=== PATIENT | male | born 1985 | race African-American/Black ===

== ENCOUNTER 2019-02-15 18:54 | Inpatient (IN) | payer OTHER, SELFPAY ==
[2019-02-15 19:36] VITALS: BP 131/72; PULSE 104; TEMP 37.2; O2SAT 98
[2019-02-15 21:45] VITALS: BP 113/69; PULSE 80; RESP 16; O2SAT 97
--- NOTE | 2019-02-15 22:06 | ED.GENADULT ---
HPI - General Adult General Chief complaint: Unspecified Stated complaint: hx sickle cell, pain Time Seen by Provider: 02/15/19 22:06 Source: patient Mode of arrival: ambulatory Limitations: no limitations History of Present Illness HPI narrative: Pt is a 33 y/o black male who presents to the ED with c/o generalized body pain due to his sickle cell anemia (legs, ribs, back, etc...). Pt reports that the pain began last week and and his medications (among them being Oxycodone 75 mg) were not helping him so he stopped taking them 10 hours ago and decided to come to the ED. He states that his son has been sick and coughing, but the pt only has had a sore throat aside from his body aches. Pt denies emesis, diarrhea, cough, rhinorrhea, CP, or SOB. Pt also denies having any allergies, smoking, drinking ETOH, using drugs, or having any medical issues aside from the sickle cell anemia. He notes having had 2 surgeries on his rt fifth finger. Among his daily medications is Folic Acid. Onset (ago): week(s) (Began last week) Relieving factors: none Associated symptoms: other (Sore throat) Related Data Home Medications Medication Instructions Recorded Confirmed folic acid 1 mg PO DAILY 02/16/19 02/16/19 hydroxyurea 500 mg PO BID 02/16/19 02/16/19 ibuprofen 800 mg PO Q6H PRN 02/16/19 02/16/19 methadone 10 mg PO BID 02/16/19 02/16/19 oxycodone 7.5 mg PO Q4-6H PRN 02/16/19 02/16/19 warfarin [Coumadin] 2.5 mg PO DAILY 02/16/19 02/16/19 warfarin [Coumadin] 10 mg PO DAILY 02/16/19 02/16/19 Allergies Allergy/AdvReac Type Severity Reaction Status Date / Time Fish Containing Products Allergy Intermediate Itching Verified 12/29/18 14:59 Review of Systems Review of Systems: All systems reviewed & are unremarkable except as noted in HPI and below ENT: Reports sore throat and Denies other (Rhinorrhea) Cardiovascular: Cardiovascular: Denies chest pain Respiratory: Respiratory: Denies cough and Denies dyspnea Gastrointestinal: Gastrointestinal: Denies diarrhea and Denies vomiting Musculoskeletal: Musculoskeletal: Reports other (Generalized body aches (legs, back, ribs, etc...)) [facility] Past Medical History Medical History (Updated 02/16/19 @ 07:39 by Ela Bah MD) Sickle cell anemia (Acute) Surgical History Surgical History (Updated 02/16/19 @ 00:48 by Leti Tompkins) History of hand surgery (Acute) Family History Family History (Updated 02/16/19 @ 04:35 by Joanne Morgan RN) Grandparent Acute myocardial infarction Sibling Asthma Sibling Asthma Mother Hypertension Social History Social History (Updated 02/16/19 @ 00:49 by Leti Tompkins) Smoking status: Never smoker Alcohol intake: never Substance use: never Gender identity (if verbalized by the patient): Male Spiritual care concerns: No Agree to blood products: Yes Exam Narrative: Exam Narrative: GENERAL: Well-appearing, well-nourished, and in no acute distress. HEAD: Normocephalic, atraumatic EYES: PERRLA and EOMI, conjunctiva clear without discharge EARS: TM's clear bilaterally without erythema or dullness THROAT:Mucous membranes moist, There is tonsillar enlargement and erythema NECK: Supple, without lymphadenopathy or mass RESPIRATORY: No respiratory distress, Airway patent, Respirations non-labored, Clear to auscultation without rales, rhonchi or wheeze HEART: Regular rate and rhythm. No murmur heard. Normal peripheral pulses. ABDOMEN: Soft, nontender, nondistended, normal active bowel sounds. No masses. No rebound or guarding, No organomegaly. EXTREMITIES: No edema, normal strength with full range of motion. SKIN: Warm, dry, normal color without rash NEURO: Alert and oriented x3. CN 2-12 grossly intact. No focal deficits. PSYCH: Normal mood and affect. Course Consultations Consultation #1: Dr. Montesinos, Hospitalist. Discussed case. Accepts for observation and order Dilaudid 2mg 2-3 hours and to give him a dose of his long-acting
[2019-02-15 22:33] LABS: Basophils Absolute Auto 0.1 K/mm3 (0.0-0.1); Basophils Percent Auto 0.6 % (0.2-1.2); Eosinophils Absolute Auto 0.6 K/mm3 (0-0.3); Eosinophils Percent Auto 4.4 % (0-4.4); Hematocrit 28.2 % (42.0-52.0); Hemoglobin 10.3 g/dL (14.0-18.0); Immature Granulocyte Absolute 0.03 K/mm3 (0.00-0.031); Immature Granulocyte Percent A 0.2 % (0-0.5); Immature Platelet Fraction Pct 4.5 % (0.9-11.2); Immature Reticulocyte Fraction 28.3 % (3.0-15.9); Lymphocytes Absolute Auto 5.24 K/mm3 (0.9-3.2); Mean Corpuscular HGB Conc 36.5 g/dl (32-36); Mean Corpuscular Hemoglobin 33.7 pg (26-34); Mean Corpuscular Volume 92.2 fl (80-100); Mean Platelet Volume 10.4 fl (7.4-10.4); Monocytes Absolute Auto 0.8 K/mm3 (0.1-0.6); Monocytes Percent Auto 6.4 % (2.6-8.5); Neutrophils Absolute Auto 5.8 K/mm3 (1.3-6.7); Neutrophils Percent Auto 46.4 % (45.5-73.1); Nucleated Red Blood Cells Perc 0.2 % (0.0-0.2); Platelet Count Result 262 k/mm3 (150-375); Red Blood Count 3.06 M/mm3 (4.6-6.20); Red Cell Distribution Width 14.9 % (11.5-14.5); Reticulocyte Hemoglobin Conten 34.3 pg (28.2-35.7); Reticulocyte Percent 6.27 % (0.7-4.3); Reticulocytes Absolute 0.19 B/L (32.2-175.7); White Blood Count 12.5 K/mm3 (4.5-10.0)
[2019-02-15 22:41] LABS: Platelet Estimate Adequate (Adequate); Poikilocytosis 1+ (NORMAL)
[2019-02-15 22:42] LABS: Anisocytosis 1+ (NORMAL); Ovalocytes 1+ (NORMAL); Sickle Cells 1+ (NORMAL); Target Cells 2+ (NORMAL)
[2019-02-15 22:44] LABS: Alanine Aminotransferase 24 U/L (4-50); Albumin Level 4.3 g/dL (3.5-5.1); Alkaline Phosphatase 81 U/L (38-126); Aspartate Amino Transferase 41 U/L (17-59); Blood Urea Nitrogen 7 mg/dL (9-20); Calcium 8.9 mg/dL (8.4-10.2); Carbon Dioxide 24 mmol/L (22-30); Chloride 107 mmol/L (98-107); Estimated Glomerular Filt Rate > 60; Glucose 103 mg/dL (75-110); Potassium 4.2 mmol/L (3.4-5.0); Sodium 141 mmol/L (137-145)
[2019-02-15] MEDS: SODIUM CHLORIDE 0.9% IV 1,000 ML 999 ML IV CONT (22:53)
[2019-02-15] MEDS: KETOROLAC 30 MG/ML VIAL (*BKC) IV PUSH (22:55)
[2019-02-15] MEDS: HYDROMORPHONE HCL 1 MG/ML INJ 2 MG IV PUSH (22:55)
[2019-02-15] MEDS: ONDANSETRON INJ 4 MG/2 ML VIAL IV PUSH (22:55)
--- NOTE | 2019-02-15 23:37 | PC.NURSE ---
Pt states his pain is not any better, rating pain 9/10
[2019-02-15 23:44] VITALS: BP 121/81; PULSE 75; RESP 16; O2SAT 99
[2019-02-15 23:45] VITALS: O2SAT 98
[2019-02-16] MEDS: HYDROMORPHONE HCL 1 MG/ML INJ 2 MG IV PUSH ×8 (00:18→23:57)
[2019-02-16] MEDS: SODIUM CHLORIDE 0.9% IV 1,000 ML 125 ML IV CONT ×3 (03:58→19:03)
[2019-02-16 04:06] VITALS: BP 102/59; PULSE 68; RESP 16; O2SAT 99
--- NOTE | 2019-02-16 04:30 | ADMGEN ---
This patient, Quan Downing, was admitted to . Patient/family oriented to hospital policies and general routines including ID bracelet, bed and alarms, visiting hours, pain management, procedures, bathroom and other care routines, personal items, smoking policy, room service/diet, and visiting hours. Valuables list has been completed. Information on how to activate the Rapid Response Team has been discussed. Patient/Family are encouraged to report perceived risks to care and to ask questions if they do not understand what they are told or what they should do.
[2019-02-16 04:33] VITALS: BP 112/72; PULSE 74; RESP 16; TEMP 36.4; O2SAT 96
[2019-02-16 04:44] VITALS: BMI 31.2
--- NOTE | 2019-02-16 07:09 | PM.IMHP ---
H&P: HPI History of Present Illness Chief complaint: SICKLE CELL PAIN CRISIS Narrative: 33-year-old gentleman with sickle cell anemia has a history a few crises per year. Usually presents with chest and back pain. About 1 week ago he began experiencing increasing back pain and rib pain bilaterally. [id number] initially. Controlled by his home oxycodone which he began taking about every 4 hours while awake. However the pain escalated as the week progressed. It was aggravated by movement or pressure. No associated fevers chills sweats or shortness of breath. About 2 days ago he began to experience a sore throat. Nonproductive cough yesterday. His son was ill with similar symptoms 3 to 4 days ago. Because of the escalating pain that was no longer controlled by his home regimen he presented to the emergency department for further evaluation and treatment. Review of Systems Constitutional: Constitutional: Denies anorexia, Denies chills, Denies fever(s), Denies headache(s), Denies weight gain and Denies weight loss Eyes: Eyes: Denies change in vision ENT: Denies dizziness and Denies headache(s) Cardiovascular: Cardiovascular: Reports chest pain, Denies syncope, Denies leg edema, Denies lightheadedness, Denies palpitations, Denies dyspnea, Denies dyspnea on exertion and Denies orthopnea Respiratory: Respiratory: Denies cough, Denies hemoptysis, Denies dyspnea and Denies dyspnea on exertion Gastrointestinal: Gastrointestinal: Denies abdominal pain, Denies melena, Denies hematochezia, Denies change in bowel habits, Denies change in stool character, Denies constipation, Denies early satiety, Denies heartburn, Denies diarrhea, Denies nausea, Denies vomiting and Denies hematemesis Genitourinary: Genitourinary: Denies hematuria and Denies dysuria Musculoskeletal: Musculoskeletal: Denies abnormal gait, Reports back pain (with bilateral rib pain), Denies arthralgias and Denies joint swelling Integumentary/Breasts: Skin/Breast: Denies pruritus and Denies rash Neurologic: Denies Abnormal speech present, Denies abnormal gait, Denies dizziness, Denies syncope, Denies headache(s), Denies focal weakness, Denies loss of vision, Denies memory loss, Denies numbness and Denies Other visual disturbances Psychiatric: Psychiatric: Denies anxiety, Denies depression and Denies memory loss Endocrine: Endocrine: Denies palpitations Hematologic/Lymphatic: Hematologic/Lymphatic: Denies easy bleeding [facility] Past Medical History Medical History (Updated 02/16/19 @ 09:34 by Misael Euceda MD) Chronic narcotic use (Acute) Chronic pain syndrome (Acute) History of deep vein thrombosis (DVT) of lower extremity (Acute) Sickle cell anemia (Acute) Surgical History Surgical History (Updated 02/16/19 @ 00:48 by Leti Tompkins) History of hand surgery (Acute) Family History Family History (Updated 02/16/19 @ 04:35 by Joanne Morgan RN) Grandparent Acute myocardial infarction Sibling Asthma Sibling Asthma Mother Hypertension Social History Social History (Updated 02/16/19 @ 00:49 by Leti Tompkins) Smoking status: Never smoker Alcohol intake: never Substance use: never Gender identity (if verbalized by the patient): Male Spiritual care concerns: No Agree to blood products: Yes Comments On chronic disability. Resides with family. Single. Heterosexual. Meds Home Medications and Allergies Home Medications Medication Instructions Recorded Confirmed Type folic acid 1 mg PO DAILY 02/16/19 02/16/19 History hydroxyurea 500 mg PO BID 02/16/19 02/16/19 History ibuprofen 800 mg PO Q6H PRN 02/16/19 02/16/19 History methadone 10 mg PO BID 02/16/19 02/16/19 History oxycodone 7.5 mg PO Q4-6H PRN 02/16/19 02/16/19 History warfarin [Coumadin] 2.5 mg PO DAILY 02/16/19 02/16/19 History warfarin [Coumadin] 10 mg PO DAILY 02/16/19 02/16/19 History Allergies Allergy/AdvReac Type Severity Reaction Status Date / Time Fish Containi
[2019-02-16 08:00] VITALS: BP 107/68; PULSE 95; RESP 18; TEMP 36.6; O2SAT 95
[2019-02-16] MEDS: HYDROXYUREA (*CHEMO) 500 MG CAPSULE PO ×2 (09:48→17:44)
[2019-02-16] MEDS: FOLIC ACID 1 MG TABLET PO (09:48)
[2019-02-16 10:17] LABS: Hematocrit 26.5 % (42.0-52.0); Hemoglobin 9.5 g/dL (14.0-18.0)
[2019-02-16 10:27] LABS: INR 1.8; Prothrombin Time 20.3 Seconds (11.1-14.7)
[2019-02-16 10:47] LABS: Lactate Dehydrogenase 555 U/L (313-618)
[2019-02-16 16:31] VITALS: BP 112/61; PULSE 90; RESP 18; TEMP 37.4; O2SAT 98
[2019-02-16] MEDS: WARFARIN (*PBKC) 10 MG TABLET PO (17:45)
[2019-02-16] MEDS: WARFARIN (*PBKC) 2.5 MG TABLET PO (17:46)
[2019-02-16] MEDS: ONDANSETRON INJ 4 MG/2 ML VIAL IV PUSH (20:53)
--- NOTE | 2019-02-16 21:50 | CONS_ITS ---
DATE OF CONSULTATION: 02/16/2019 REASON FOR CONSULTATION: Sickle cell crisis. 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 The patient had recurrent episode of sickle cell crisis almost every 4 to 6 weeks basis. He came into the hospital with complaint of increasing generalized pain, now mainly in the mid chest region. The patient also has a history of pulmonary embolism and take Coumadin 10 mg daily. He denies any fever, chills and cough. He does have some sore throat. He denies any burning in urine and dysuria. Denies any diarrhea. No other new complaints. REVIEW OF SYSTEMS: 12-point review of system was reviewed and as per HPI, otherwise negative. PAST MEDICAL HISTORY: Sickle cell SC disease. History of DVT, lower extremities. History of pulmonary embolism. PAST SURGICAL HISTORY: History of hand surgery. FAMILY HISTORY: Sibling has sickle cell SC disease, history of acute DE in the grandparent, asthma in siblings. SOCIAL HISTORY: The patient denies any history of smoking and drinking. Patient is on disability. The patient is and has 3 children. HOME MEDICATIONS: Reviewed. ALLERGIES: REVIEWED. PHYSICAL EXAMINATION: GENERAL: This patient is a well-developed, well-nourished, male, in no apparent distress. Alert and oriented x3. VITAL SIGNS: As per nursing note. HEENT: Normocephalic, atraumatic. Clear oropharynx. LUNGS: Clear to auscultation bilaterally. CARDIOVASCULAR: Regular rate and rhythm. No murmurs. ABDOMEN: Soft, nontender, nondistended. Bowel sounds are positive in all 4 quadrants. No hepatosplenomegaly. EXTREMITIES: No edema. NEUROLOGIC: Grossly intact. LABORATORY STUDIES: WBC 12.5, hemoglobin 10.3, now is 9.5, platelet 262,000, neutrophils 46%, lymphocytes 42%, reticulocyte count percentage 6.27, INR 1.8, creatinine 0.8, total LDH 555. ASSESSMENT AND PLAN: 1. Sickle cell crisis. The patient is a 33-year-old male with sickle cell SC disease. The patient has been taking hydroxyurea 500 mg b.i.d. He came into the hospital with sickle cell crisis. Labs reviewed. LDH is normal, but reticulocyte count is slightly elevated. I agree with continuation of IV hydration and continuation of hydroxyurea 500 mg b.i.d. along with folic acid 1 mg p.o. daily. The patient will continue home methadone 10 mg b.i.d. and will use along with IV Dilaudid for pain control. 2. History of pulmonary embolism and DVT. He will continue Coumadin as previously ordered. The patient will be on lifelong anticoagulation therapy due to recurrent pulmonary embolus and an acute chest syndrome. 3. Sore throat. The patient is on p.r.n. lozenges. I do not see need for antibiotic treatment at this time. The patient is afebrile. D I MT: Becky
[2019-02-16 22:00] VITALS: BP 120/61; PULSE 101; RESP 16; TEMP 36.7; O2SAT 95
[2019-02-17] MEDS: SODIUM CHLORIDE 0.9% IV 1,000 ML 125 ML IV CONT ×3 (03:02→19:21)
[2019-02-17] MEDS: HYDROMORPHONE HCL 1 MG/ML INJ 2 MG IV PUSH ×7 (03:03→21:23)
[2019-02-17 06:04] LABS: Basophils Percent Auto 0.2 % (0.2-1.2); Eosinophils Absolute Auto 0.1 K/mm3 (0-0.3); Hematocrit 26.2 % (42.0-52.0); Hemoglobin 9.3 g/dL (14.0-18.0); Immature Granulocyte Absolute 0.03 K/mm3 (0.00-0.031); Immature Granulocyte Percent A 0.2 % (0-0.5); Lymphocytes Absolute Auto 2.72 K/mm3 (0.9-3.2); Lymphocytes Percent Auto 22.6 % (18.3-44.2); Mean Corpuscular HGB Conc 35.5 g/dl (32-36); Mean Corpuscular Volume 92.9 fl (80-100); Mean Platelet Volume 10.7 fl (7.4-10.4); Monocytes Percent Auto 8.1 % (2.6-8.5); Neutrophils Absolute Auto 8.2 K/mm3 (1.3-6.7); Neutrophils Percent Auto 67.9 % (45.5-73.1); Nucleated Red Blood Cells Perc 0.2 % (0.0-0.2); Platelet Count Result 262 k/mm3 (150-375); Red Blood Count 2.82 M/mm3 (4.6-6.20)
[2019-02-17 06:14] LABS: Blood Urea Nitrogen 5 mg/dL (9-20); Calcium 8.5 mg/dL (8.4-10.2); Carbon Dioxide 24 mmol/L (22-30); Chloride 106 mmol/L (98-107); Estimated CRCL calculation 150 ml/min; Estimated Glomerular Filt Rate > 60; Glucose 116 mg/dL (75-110); INR 2.1; Potassium 3.7 mmol/L (3.4-5.0); Prothrombin Time 23.5 Seconds (11.1-14.7); Sodium 139 mmol/L (137-145)
[2019-02-17 08:14] VITALS: BP 107/59; PULSE 91; RESP 16; TEMP 36.2; O2SAT 96
[2019-02-17 08:42] LABS: Immature Reticulocyte Fraction 24.6 % (3.0-15.9); Reticulocyte Hemoglobin Conten 31.8 pg (28.2-35.7); Reticulocyte Percent 4.13 % (0.7-4.3); Reticulocytes Absolute 0.12 B/L (32.2-175.7)
[2019-02-17] MEDS: FOLIC ACID 1 MG TABLET PO (09:05)
[2019-02-17] MEDS: HYDROXYUREA (*CHEMO) 500 MG CAPSULE PO ×2 (09:05→17:36)
[2019-02-17 14:07] VITALS: BP 114/54; PULSE 83; RESP 18; TEMP 36.6; O2SAT 95
[2019-02-17 15:06] LABS: Lactate Dehydrogenase 614 U/L (313-618)
--- NOTE | 2019-02-17 16:22 | PM.IMPN ---
Progress Note: A&P Assessment and Plan (1) Sickle cell anemia with crisis: Code(s): D57.00 - Hb-SS disease with crisis, unspecified Status: Acute Assessment and Plan: IVF, analgesics. Hemoglobin at 9.3 and LDH is dropped to 614 and reticulocyte % has dropped to 4.3 Continue home hydroxyurea. (2) Chronic narcotic use: Code(s): F11.90 - Opioid use, unspecified, uncomplicated Status: Acute Assessment and Plan: Continue home methadone 10mg bid. Utilize hydromorphone iv for breakthrough pain. And try to taper in a.m. (3) Chronic pain syndrome: Code(s): G89.4 - Chronic pain syndrome Status: Acute Assessment and Plan: Continue methadone. (4) History of deep vein thrombosis (DVT) of lower extremity: Code(s): Z86.718 - Personal history of other venous thrombosis and embolism Status: Acute Assessment and Plan: Continue warfarin 12.5 daily, INR 2.1 today (5) DVT prophylaxis: Code(s): Z29.9 - Encounter for prophylactic measures, unspecified Status: Acute Assessment and Plan: warfarin Subjective Interval history: 33-year-old black male admitted with sickle cell crisis. Feeling some better with slightly less pain and able to eat some Exam Narrative: Exam Narrative: Blood pressure 110/60 pulse is 80 afebrile Pupils equal and reactive to light sclera anicteric Lungs clear CV regular rate rhythm Abdomen is soft nontender Extremities without edema good distal pulses Objective Data Vital Signs Vital Signs: Vital Signs - 24 hr 02/16/19 16:31 02/16/19 22:00 02/17/19 08:14 Temperature 37.4 C 36.7 C 36.2 C L Pulse Rate 90 101 H 91 Respiratory Rate 18 16 16 Blood Pressure 112/61 120/61 107/59 L Pulse Oximetry 98 95 96 02/17/19 14:07 Temperature 36.6 C Pulse Rate 83 Respiratory Rate 18 Blood Pressure 114/54 L Pulse Oximetry 95 Intake/Output Intake/Output: Intake & Output 02/15/19 02/15/19 02/16/19 02/17/19 00:59 23:59 23:59 23:59 Intake Total 3300 2740 Output Total 1300 800 Balance 1999 1939 Meds/Results Medications: Active Medications Generic Name Dose Route Start Last Admin Trade Name Freq PRN Reason Stop Dose Admin Benzocaine 1 lozenge 02/16/19 10:31 Chloraseptic Lozenge PO PRN PRN Sore Throat Folic Acid 1 mg 02/16/19 09:00 02/17/19 09:05 Folic Acid PO 1 mg DAILY CHRISTOPHER Administration Hydromorphone HCl 2 mg 02/16/19 02:56 02/17/19 15:17 Dilaudid Inj IV PUSH 2 mg Q3HR PRN Administration Pain Rated 7-10 Hydroxyurea 500 mg 02/16/19 09:00 02/17/19 09:05 Hydrea PO 500 mg BID CHRISTOPHER Administration Sodium Chloride 1,000 mls @ 125 mls/hr 02/16/19 03:00 02/17/19 11:34 Normal Saline Iv IV CONT 125 mls/hr .Q8H CHRISTOPHER Administration Methadone HCl 10 mg 02/16/19 09:00 02/17/19 09:04 Methadone Hcl PO 10 mg BID CHRISTOPHER Administration Ondansetron HCl 4 mg 02/16/19 02:56 02/16/19 20:53 Zofran Inj IV PUSH 4 mg Q4H PRN Administration Nausea Warfarin Sodium 10 mg 02/16/19 17:00 02/16/19 17:45 Coumadin PO 10 mg DAILY@1700 CHRISTOPHER Administration Warfarin Sodium 2.5 mg 02/16/19 17:00 02/16/19 17:46 Coumadin PO 2.5 mg DAILY@1700 CHRISTOPHER Administration Labs Labs: Laboratory Results - last 24 hr 02/17/19 02/17/19 02/17/19 05:28 05:29 05:29 WBC 12.0 H RBC 2.82 L Hgb 9.3 L Hct 26.2 L MCV 92.9 MCH 33.0 MCHC 35.5 RDW 15.0 H Plt Count 262 MPV 10.7 H Immature Gran % (Auto) 0.2 Neut % (Auto) 67.9 Lymph % (Auto) 22.6 Chaves % (Auto) 8.1 Eos % (Auto) 1.0 Baso % (Auto) 0.2 Lymph # (Auto) 2.72 Chaves # (Auto) 1.0 H Eos # (Auto) 0.1 Baso # (Auto) 0.0 Abs Immat Gran (auto) 0.03 Absolute Neuts (auto) 8.2 H Absolute Nucleated RBC 0.0 Nucleated RBC % 0.2 Absolute Retic 0.12 L Percent Retic 4.13 Immature Retic Fraction 24.6 H Retic
[2019-02-17] MEDS: WARFARIN (*PBKC) 10 MG TABLET PO (17:36)
[2019-02-17] MEDS: WARFARIN (*PBKC) 2.5 MG TABLET PO (17:36)
[2019-02-17 20:22] VITALS: BP 140/71; PULSE 85; RESP 18; TEMP 36.9; O2SAT 100
[2019-02-18] MEDS: HYDROMORPHONE HCL 1 MG/ML INJ 2 MG IV PUSH ×7 (00:33→20:23)
[2019-02-18] MEDS: SODIUM CHLORIDE 0.9% IV 1,000 ML 125 ML IV CONT ×3 (03:28→19:36)
[2019-02-18 06:06] LABS: Hematocrit 26.4 % (42.0-52.0); Hemoglobin 9.5 g/dL (14.0-18.0); Mean Corpuscular Hemoglobin 32.8 pg (26-34); Mean Platelet Volume 10.8 fl (7.4-10.4); Platelet Count Result 258 k/mm3 (150-375); Red Cell Distribution Width 14.9 % (11.5-14.5); White Blood Count 13.1 K/mm3 (4.5-10.0)
[2019-02-18 08:00] VITALS: BP 108/68; PULSE 79; RESP 16; TEMP 37.7; O2SAT 95
[2019-02-18] MEDS: HYDROXYUREA (*CHEMO) 500 MG CAPSULE PO ×2 (09:49→17:22)
[2019-02-18] MEDS: FOLIC ACID 1 MG TABLET PO (09:49)
[2019-02-18 09:51] VITALS: PULSE 76; RESP 16; O2SAT 95
[2019-02-18 10:06] LABS: Immature Reticulocyte Fraction 19.8 % (3.0-15.9); Reticulocyte Percent 5.26 % (0.7-4.3); Reticulocytes Absolute 0.15 B/L (32.2-175.7)
[2019-02-18 10:13] LABS: INR 2.4; Prothrombin Time 25.3 Seconds (11.1-14.7)
[2019-02-18 10:28] LABS: Blood Urea Nitrogen 5 mg/dL (9-20); Calcium 8.7 mg/dL (8.4-10.2); Carbon Dioxide 23 mmol/L (22-30); Chloride 104 mmol/L (98-107); Estimated CRCL calculation 172 ml/min; Estimated Glomerular Filt Rate > 60; Glucose 114 mg/dL (75-110); Potassium 3.8 mmol/L (3.4-5.0); Sodium 137 mmol/L (137-145)
[2019-02-18 10:47] LABS: Lactate Dehydrogenase 655 U/L (313-618)
--- NOTE | 2019-02-18 15:12 | PM.IMPN ---
Progress Note: A&P Assessment and Plan (1) Sickle cell anemia with crisis: Code(s): D57.00 - Hb-SS disease with crisis, unspecified Status: Acute Assessment and Plan: IVF, analgesics. Hemoglobin at 9.5 and LDH is stable at 655 and reticulocyte % 5.26 Continue home hydroxyurea. (2) Chronic narcotic use: Code(s): F11.90 - Opioid use, unspecified, uncomplicated Status: Acute Assessment and Plan: Continue home methadone 10mg bid. Utilize hydromorphone iv for breakthrough pain. And is using less (3) Chronic pain syndrome: Code(s): G89.4 - Chronic pain syndrome Status: Acute Assessment and Plan: Continue methadone. (4) History of deep vein thrombosis (DVT) of lower extremity: Code(s): Z86.718 - Personal history of other venous thrombosis and embolism Status: Acute Assessment and Plan: Continue warfarin 12.5 daily, INR 2.4 today (5) DVT prophylaxis: Code(s): Z29.9 - Encounter for prophylactic measures, unspecified Status: Acute Assessment and Plan: warfarin Subjective Interval history: Date of visit 02/18 33-year-old black male admitted with sickle cell crisis. Feeling some better each day with slightly less pain and able to eat more Exam Narrative: Exam Narrative: Blood pressure 116/70 pulse is 76 afebrile Pupils equal and reactive to light sclera anicteric Lungs clear CV regular rate rhythm Abdomen is soft nontender Extremities without edema good distal pulses Objective Data Vital Signs Vital Signs: Vital Signs - 24 hr 02/17/19 20:22 02/18/19 08:00 02/18/19 09:51 Temperature 36.9 C 37.7 C H Pulse Rate 85 79 76 Respiratory Rate 18 16 16 Blood Pressure 140/71 108/68 Pulse Oximetry 100 95 95 Intake/Output Intake/Output: Intake & Output 02/15/19 02/16/19 02/17/19 02/18/19 23:59 23:59 23:59 23:59 Intake Total 3300 4220 3010 Output Total 1834 436 4018 Balance 1999 3420 1610 Meds/Results Medications: Active Medications Generic Name Dose Route Start Last Admin Trade Name Freq PRN Reason Stop Dose Admin Benzocaine 1 lozenge 02/16/19 10:31 Chloraseptic Lozenge PO PRN PRN Sore Throat Folic Acid 1 mg 02/16/19 09:00 02/18/19 09:49 Folic Acid PO 1 mg DAILY CHRISTOPHER Administration Hydromorphone HCl 2 mg 02/16/19 02:56 02/18/19 13:02 Dilaudid Inj IV PUSH 2 mg Q3HR PRN Administration Pain Rated 7-10 Hydroxyurea 500 mg 02/16/19 09:00 02/18/19 09:49 Hydrea PO 500 mg BID CHRISTOPHER Administration Sodium Chloride 1,000 mls @ 125 mls/hr 02/16/19 03:00 02/18/19 11:48 Normal Saline Iv IV CONT 125 mls/hr .Q8H CHRISTOPHER Administration Methadone HCl 10 mg 02/16/19 09:00 02/18/19 09:49 Methadone Hcl PO 10 mg BID CHRISTOPHER Administration Ondansetron HCl 4 mg 02/16/19 02:56 02/16/19 20:53 Zofran Inj IV PUSH 4 mg Q4H PRN Administration Nausea Warfarin Sodium 10 mg 02/16/19 17:00 02/17/19 17:36 Coumadin PO 10 mg DAILY@1700 CHRISTOPHER Administration Warfarin Sodium 2.5 mg 02/16/19 17:00 02/17/19 17:36 Coumadin PO 2.5 mg DAILY@1700 CHRISTOPHER Administration Labs Labs: Laboratory Results - last 24 hr 02/18/19 02/18/19 02/18/19 05:55 09:57 09:57 WBC 13.1 H RBC 2.90 L Hgb 9.5 L Hct 26.4 L MCV 91.0 MCH 32.8 MCHC 36.0 RDW 14.9 H Plt Count 258 MPV 10.8 H Absolute Retic 0.15 L Percent Retic 5.26 H Immature Retic Fraction 19.8 H Retic Hgb Content 32.0 PT INR Sodium 137 Potassium 3.8 Chloride 104 Carbon Dioxide 23 BUN 5 L Creatinine 0.60 L Estim Creat Clear Calc 172 Estimated GFR > 60 Glucose 114 H Calcium 8.7 Lactate Dehydrogenase 02/18/19 02/18/19 09:57 09:57 WBC RBC Hgb Hct MCV MCH MCHC RDW Plt Count MPV Absolute Retic Percent Retic Immature Retic Fraction Retic Hgb Content PT 25.3 H
[2019-02-18 16:14] VITALS: BP 110/62; PULSE 74; RESP 16; TEMP 37.7; O2SAT 96
[2019-02-18] MEDS: WARFARIN (*PBKC) 2.5 MG TABLET PO (17:22)
[2019-02-18] MEDS: WARFARIN (*PBKC) 10 MG TABLET PO (17:22)
--- NOTE | 2019-02-18 18:19 | WPDONCPN ---
Progress Note: A/P - Additional Plan Sickle cell SC disease with sickle cell crisis. Patient will continue IV hydration along with hydroxyurea 500 milligram twice a day. He will continue folic acid 1 milligram daily. Hemoglobin is stable at 9.5. Clinically showing improvement with IV hydration and pain management. Possible upper respiratory infection. I will start him on Levaquin 500 milligram p.o. daily for 7 days. Recurrent pulmonary embolism. Patient is on Coumadin. - Time Spent With Patient Total time spent is greater than 50% in coordination of care (as documented) at patient's floor/unit and/or counseling patient: 15 - 25 minutes Subjective Interval history: Patient is seen for sickle cell crisis. He is getting slightly more comfortable with pain under better control. He has cough with yellowish greenish sputum but denies any fevers and chills. Review of Systems - Review of Systems Patient denies any fever or chills. Complain of cough with yellowish green sputum. Musculoskeletal pain has improved. Denies any bleeding and bruising. - Neurologic Denies abnormal speech, Denies abnormal gait, Denies syncope, Denies headache(s), Denies focal weakness, Denies loss of vision, Denies memory loss, Denies numbness, Denies other visual disturbances Exam Vital signs: Temp Pulse Resp BP Pulse Ox 37.7 C H 74 16 110/62 96 02/18/19 16:14 02/18/19 16:14 02/18/19 16:14 02/18/19 16:14 02/18/19 16:14 Lungs are clear to auscultation bilaterally Cardiovascular regular rate rhythm no murmurs Abdomen soft nontender nondistended Extremities no edema PN: Objective Data - Labs CBC & Chem 7: 02/18/19 05:55 02/18/19 09:57 Labs: Laboratory Results - last 24 hr 02/18/19 02/18/19 02/18/19 05:55 09:57 09:57 WBC 13.1 H RBC 2.90 L Hgb 9.5 L Hct 26.4 L MCV 91.0 MCH 32.8 MCHC 36.0 RDW 14.9 H Plt Count 258 MPV 10.8 H Absolute Retic 0.15 L Percent Retic 5.26 H Immature Retic Fraction 19.8 H Retic Hgb Content 32.0 PT INR Sodium 137 Potassium 3.8 Chloride 104 Carbon Dioxide 23 BUN 5 L Creatinine 0.60 L Estim Creat Clear Calc 172 Estimated GFR > 60 Glucose 114 H Calcium 8.7 Lactate Dehydrogenase 02/18/19 02/18/19 09:57 09:57 WBC RBC Hgb Hct MCV MCH MCHC RDW Plt Count MPV Absolute Retic Percent Retic Immature Retic Fraction Retic Hgb Content PT 25.3 H INR 2.4 Sodium Potassium Chloride Carbon Dioxide BUN Creatinine Estim Creat Clear Calc Estimated GFR Glucose Calcium Lactate Dehydrogenase 655 H
[2019-02-18 20:20] VITALS: BP 125/74; PULSE 98; RESP 18; TEMP 36.9; O2SAT 95
[2019-02-19] MEDS: HYDROMORPHONE HCL 1 MG/ML INJ 2 MG IV PUSH ×4 (00:23→09:30)
[2019-02-19] MEDS: SODIUM CHLORIDE 0.9% IV 1,000 ML 125 ML IV CONT ×2 (03:36→12:08)
[2019-02-19 08:32] LABS: Basophils Absolute Auto 0.1 K/mm3 (0.0-0.1); Basophils Percent Auto 0.5 % (0.2-1.2); Eosinophils Absolute Auto 0.4 K/mm3 (0-0.3); Hematocrit 25.7 % (42.0-52.0); Hemoglobin 9.1 g/dL (14.0-18.0); Immature Granulocyte Absolute 0.06 K/mm3 (0.00-0.031); Immature Granulocyte Percent A 0.5 % (0-0.5); Lymphocytes Absolute Auto 3.01 K/mm3 (0.9-3.2); Lymphocytes Percent Auto 22.9 % (18.3-44.2); Mean Corpuscular HGB Conc 35.4 g/dl (32-36); Mean Corpuscular Hemoglobin 32.5 pg (26-34); Mean Corpuscular Volume 91.8 fl (80-100); Mean Platelet Volume 9.8 fl (7.4-10.4); Monocytes Absolute Auto 1.3 K/mm3 (0.1-0.6); Monocytes Percent Auto 9.9 % (2.6-8.5); Neutrophils Absolute Auto 8.3 K/mm3 (1.3-6.7); Neutrophils Percent Auto 63.2 % (45.5-73.1); Nucleated Red Blood Cells Absolute Auto 0.1 K/mm3 (0.0-0.012); Nucleated Red Blood Cells Perc 0.5 % (0.0-0.2); Platelet Count Result 278 k/mm3 (150-375); Red Cell Distribution Width 15.3 % (11.5-14.5); White Blood Count 13.1 K/mm3 (4.5-10.0)
[2019-02-19 08:43] LABS: Alanine Aminotransferase 16 U/L (4-50); Albumin Level 3.8 g/dL (3.5-5.1); Alkaline Phosphatase 63 U/L (38-126); Aspartate Amino Transferase 33 U/L (17-59); Bilirubin,Total 0.8 mg/dL (0.2-1.3); Lactate Dehydrogenase 727 U/L (313-618)
[2019-02-19 08:45] LABS: Blood Urea Nitrogen 5 mg/dL (9-20); Calcium 8.3 mg/dL (8.4-10.2); Carbon Dioxide 24 mmol/L (22-30); Chloride 106 mmol/L (98-107); Estimated CRCL calculation 172 ml/min; Estimated Glomerular Filt Rate > 60; Glucose 104 mg/dL (75-110); Potassium 3.6 mmol/L (3.4-5.0); Sodium 138 mmol/L (137-145)
[2019-02-19 08:47] VITALS: BP 128/72; PULSE 72; RESP 20; TEMP 36.7; O2SAT 100
[2019-02-19 09:30] VITALS: PULSE 72; RESP 20; O2SAT 100
[2019-02-19] MEDS: HYDROXYUREA (*CHEMO) 500 MG CAPSULE PO (09:34)
[2019-02-19] MEDS: FOLIC ACID 1 MG TABLET PO (09:34)
[2019-02-19] MEDS: HYDROMORPHONE HCL 1 MG/ML INJ IV PUSH (12:10)
--- NOTE | 2019-02-19 12:45 | PM.IMPN ---
Progress Note: A&P Assessment and Plan (1) Sickle cell anemia with crisis: Code(s): D57.00 - Hb-SS disease with crisis, unspecified Status: Acute Assessment and Plan: IVF, analgesics. Hemoglobin at 9.1 and LDH is 727 so still some evidence of hemolysis Continue home hydroxyurea. (2) Chronic narcotic use: Code(s): F11.90 - Opioid use, unspecified, uncomplicated Status: Acute Assessment and Plan: Continue home methadone 10mg bid. Utilize hydromorphone iv for breakthrough pain. And is using less decreased to 1 mg and will increase to q 4h interval (3) Chronic pain syndrome: Code(s): G89.4 - Chronic pain syndrome Status: Acute Assessment and Plan: Continue methadone. (4) History of deep vein thrombosis (DVT) of lower extremity: Code(s): Z86.718 - Personal history of other venous thrombosis and embolism Status: Acute Assessment and Plan: Continue warfarin 12.5 daily, INR 2.4 02/18 (5) DVT prophylaxis: Code(s): Z29.9 - Encounter for prophylactic measures, unspecified Status: Acute Assessment and Plan: warfarin Subjective Interval history: Date of visit 02/19 33-year-old black male admitted with sickle cell crisis. Feeling some better each day with slightly less pain and able to eat more and thinks may be able to go home later today Exam Narrative: Exam Narrative: Blood pressure 128/72 pulse is 76 afebrile Pupils equal and reactive to light sclera anicteric Lungs clear CV regular rate rhythm Abdomen is soft nontender Extremities without edema good distal pulses Neuro alert no focal deficits Objective Data Vital Signs Vital Signs: Vital Signs - 24 hr 02/18/19 16:14 02/18/19 20:20 02/19/19 08:47 Temperature 37.7 C H 36.9 C 36.7 C Pulse Rate 74 98 72 Respiratory Rate 16 18 20 Blood Pressure 110/62 125/74 128/72 Pulse Oximetry 96 95 100 02/19/19 09:30 Temperature Pulse Rate 72 Respiratory Rate 20 Blood Pressure Pulse Oximetry 100 Intake/Output Intake/Output: Intake & Output 02/16/19 02/17/19 02/18/19 02/19/19 23:59 23:59 23:59 23:59 Intake Total 3300 4220 5370 2930 Output Total 0622 287 6281 1200 Balance 2000 3420 1570 1730 Meds/Results Medications: Active Medications Generic Name Dose Route Start Last Admin Trade Name Freq PRN Reason Stop Dose Admin Benzocaine 1 lozenge 02/16/19 10:31 Chloraseptic Lozenge PO PRN PRN Sore Throat Folic Acid 1 mg 02/16/19 09:00 02/19/19 09:34 Folic Acid PO 1 mg DAILY CHRISTOPHER Administration Hydromorphone HCl 1 mg 02/19/19 10:50 02/19/19 12:10 Dilaudid Inj IV PUSH 1 mg Q3H PRN Administration Pain Rated 7-10 Hydroxyurea 500 mg 02/16/19 09:00 02/19/19 09:34 Hydrea PO 500 mg BID CHRISTOPHER Administration Sodium Chloride 1,000 mls @ 125 mls/hr 02/16/19 03:00 02/19/19 12:08 Normal Saline Iv IV CONT 125 mls/hr .Q8H CHRISTOPHER Administration Levofloxacin 500 mg 02/19/19 09:00 Levaquin Tab PO QAM CHRISTOPHER Methadone HCl 10 mg 02/16/19 09:00 02/19/19 09:41 Methadone Hcl PO 10 mg BID CHRISTOPHER Administration Ondansetron HCl 4 mg 02/16/19 02:56 02/16/19 20:53 Zofran Inj IV PUSH 4 mg Q4H PRN Administration Nausea Warfarin Sodium 10 mg 02/16/19 17:00 02/18/19 17:22 Coumadin PO 10 mg DAILY@1700 CHRISTOPHER Administration Warfarin Sodium 2.5 mg 02/16/19 17:00 02/18/19 17:22 Coumadin PO 2.5 mg DAILY@1700 CHRISTOPHER Administration Labs Labs: Laboratory Results - last 24 hr 02/19/19 02/19/19 02/19/19 08:22 08:22 08:22 WBC 13.1 H RBC 2.80 L Hgb 9.1 L Hct 25.7 L MCV 91.8 MCH 32.5 MCHC 35.4 RDW 15.3 H Plt Count 278 MPV 9.8 Immature Gran % (Auto) 0.5 Neut % (Auto) 63.2 Lymph % (Auto) 22.9 [place] % (Auto) 9.9 H Eos % (Auto) 3.0 Baso % (Auto) 0.5 Lymph # (Auto) 3.01 [place] # (Auto) 1.3 H Eos # (Auto) 0.4 H Baso # (Auto
--- NOTE | 2019-02-19 13:02 | PC.NURSE ---
Patient voiced to tell the doctor that he feels like he can go home. Notified Dr. Gutierrez of the same.
--- NOTE | 2019-02-19 20:26 | DS_ITS ---
DATE OF DISCHARGE: 02/19/2019 DATA OF KORO-ER-ZAFB ENCOUNTER: 02/19/2019. DIAGNOSES: 1. Sickle cell anemia with crisis. 2. Narcotic dependency. 3. History of deep venous thrombosis. HISTORY OF PRESENT ILLNESS: The patient is a 33-year-old black male with sickle cell anemia, who presented to the emergency room with chest and back pain, which are his usual symptoms with his crisis. The pain worsened that would not be controlled with his narcotics at home, he presented to the emergency room. He had no fever, no chills, did have minor sore throat and some nonproductive cough. Son had similar illness. Complete history and physical is enumerated in his admitting history and physical on admission. The white count is , 12.5, hemoglobin is 10.3, hematocrit 28, platelet 262, 46 segs, 42 lymphocytes. Sodium is 141, potassium 4.2, chloride 107, total CO2 of 24, creatinine 0.7, glucose 103. LFTs were normal including bilirubin. LDH elevated at 555. HOSPITAL COURSE: 1. Sickle cell anemia with crisis. His LDH kenn, his hemoglobin dropped slightly and his reticulocyte percent and count increased. On the day of discharge, the hemoglobin is 9.1. He is feeling quite a bit better at that point, controlled with narcotics and hydration. He does have the methadone at home as well as oxycodone. 2. Chronic narcotic dependence. Continue on his methadone. He was given IV Dilaudid on a p.r.n. basis here and continued to improve with lessening of his IV treatment with dosage and frequency by the time of discharge. 3. History of DVT. Continue on his warfarin. The day prior to discharge, INR was 2.4. PROCEDURES DURING THIS HOSPITALIZATION: Routine. CONSULTANTS: Jone Marks M.D., Hematology/Oncology. CONDITION ON DISCHARGE: He is up and about, still having some back discomfort, but much improved from admission. DISPOSITION: He was discharged home. ACTIVITY: As tolerated. FOLLOWUP: He will follow up with Dr. Marks as previously scheduled. DIET: Regular as stated. DISCHARGE MEDICATIONS: His list of discharge medications includes: 1. Folic acid 1 mg daily. 2. Hydroxyurea 500 b.i.d. 3. Ibuprofen 800 q.6 p.r.n. 4. Levaquin 500 daily for 3 more days. 5. Methadone 10 b.i.d. 6. Oxycodone 7.5 q.4-6. 7. Warfarin 12.5 daily. His lungs were clear and he was afebrile, but did develop a productive cough while inpatient, so received a short course of quinolones. This entire process took 35 minutes to complete. D I MT: Becky PEÑA
== END 2019-02-19 14:32 | disposition home or self-care (01) | DRG 662 ==
LOC: ANHED 02-16 03:07 → ANH3MED 02-16 03:25
PROVIDERS: Internal Medicine; Admitting Provider Internal Medicine; Emergency Provider General Practice; PCP Internal Medicine Hematology & Oncology; Visit Provider Internal Medicine
DX: D57.00 Hb-SS disease with crisis, unspecified (principal); Z79.891 Long term (current) use of opiate analgesic; Z86.718 Personal history of other venous thrombosis and embolism; Z86.711 Personal history of pulmonary embolism; Z79.01 Long term (current) use of anticoagulants; J02.9 Acute pharyngitis, unspecified; G89.4 Chronic pain syndrome
CPT/HCPCS: 36415; 80048; 80053; 80076; 83615; 85014; 85018; 85025; 85027; 85045; 85046; 85610; 87081; 87880; 96361; 96374; 96375; 96376; 99285; A9270; G0378; G0379; J1170; J1885; J2405; J7030

== ENCOUNTER 2019-03-19 15:55 | Inpatient (IN) | payer OTHER, SELFPAY ==
[2019-03-19] VITALS (7 sets, daily range): BP systolic 110–130; BP diastolic 57–91; PULSE 74–94; RESP 16–20; TEMP 36.2–36.7; O2SAT 96–99; BMI 32.5
--- NOTE | ~2019-03-19 | XR_ITS ---
EXAMINATION: XR chest 1V DATE: 03/19/2019 16:52 INDICATION: Chest pain. Sickle cell disease. TECHNIQUE: A single frontal view of the chest was obtained. COMPARISON: Chest 2 views 02/23/2019 FINDINGS: There are airspace opacities in the lower lung zones. No pleural effusion or pneumothorax. The heart size is normal. IMPRESSION: 1. Airspace opacities in the lower lung zones with worsening on the right, consistent with sickle flo l chronic lung disease with superimposed sickle cell acute lung disease. Reviewed, dictated and finalized at location A. UITMENT CONSULTANT IMPRESSION: 1. Airspace opacities in the lower lung zones with worsening on the right, cons istent with sickle cell chronic lung disease with superimposed sickle cell acut e lung disease.
--- NOTE | ~2019-03-19 | CT_ITS ---
EXAMINATION: CTA chest PE protocol EXAM DATE: 03/20/2019 08:12 INDICATION: Pneumonia. Sickle cell crisis. Subtherapeutic INR. History pulmonary emboli and DVT. TECHNIQUE: Spiral CTA of the chest (pulmonary arteries) was performed with 100 cc Omnipaque 350 intr avenous contrast injection. Images were acquired during the pulmonary arterial phase. Coronal maxi mum intensity projection 3D-reconstructions were created by the technologist on dedicated workstation . Axial, coronal and sagittal reformatted images were reviewed. The dose-length product (DLP) for t his examination was 533.01 mGy-cm. The exposure was tailored according to patient size (auto mA exp osure control), and iterative reconstruction (ASIR) was used as additional dose reduction technique. Comparison is made to prior examination from 11/17/2018. FINDINGS: Previously seen right posterior medial segmental pulmonary embolism has resolved. There are no intraluminal filling defects on today's exam. There is cardiomegaly and there are scattered linea r basilar opacities bilaterally, appearance most consistent with atelectasis. No thoracic aortic diss ection. There are no pleural or pericardial effusions. Tracheobronchial tree is patent. There is no mediastinal, hilar or axillary lymphadenopathy. There is no pneumothorax. No evidence of arnulfo nary arterial calcification. Upper abdomen is unremarkable. Mottled bone density, consistent with sickle cell disease. IMPRESSION: 1. Multiple linear basilar opacities, appearance most consistent with multifocal atelectasis, more p ronounced than on prior study. 2. Cardiomegaly. Reviewed, dictated and finalized at location A. ING GRINDER IMPRESSION: 1. Multiple linear basilar opacities, appearance most consistent with multifoc al atelectasis, more pronounced than on prior study. 2. Cardiomegaly.
--- NOTE | 2019-03-19 16:12 | ED.GENADULT ---
HPI - General Adult General Chief complaint: Unspecified Stated complaint: Sickle Cell Pain Time Seen by Provider: 03/19/19 16:08 Source: patient Mode of arrival: ambulatory Limitations: no limitations History of Present Illness HPI narrative: The pt is a 33 y/o male who presents to the ED with c/o sickle cell pain that began 3-4 days ago. The pt states his doctor for sickle cell anemia is Dr. Marks, who he last saw 2 months ago. The last time he had these similar sx was also 2 months ago. The pt reports myalgia that is especially painful in his arms and back. The pt notes that he usually comes here for sickle cell pain. He is currently on disability and does not smoke, drink, or use drugs. complaint: Sickle cell pain Onset (ago): day(s) (3-4) Associated symptoms: other (myalgia) Related Data Home Medications Medication Instructions Recorded Confirmed folic acid 1 mg PO DAILY 02/16/19 02/16/19 hydroxyurea 500 mg PO BID 02/16/19 02/16/19 ibuprofen 800 mg PO Q6H PRN 02/16/19 02/16/19 methadone 10 mg PO BID 02/16/19 02/16/19 oxycodone 7.5 mg PO Q4-6H PRN 02/16/19 02/16/19 warfarin [Coumadin] 2.5 mg PO DAILY 02/16/19 02/16/19 warfarin [Coumadin] 10 mg PO DAILY 02/16/19 02/16/19 Allergies Allergy/AdvReac Type Severity Reaction Status Date / Time Fish Containing Products Allergy Intermediate Itching Verified 03/19/19 16:44 Review of Systems Review of Systems: All systems reviewed & are unremarkable except as noted in HPI and below Musculoskeletal: Musculoskeletal: Reports myalgias (especially painful in arms and back) [facility] Past Medical History Medical History (Updated 03/19/19 @ 18:23 by Tejas Julian MD) Acute chest syndrome Chronic narcotic use Chronic pain syndrome History of deep vein thrombosis (DVT) of lower extremity Pneumonia Pulmonary embolism Sickle cell disease, type SC Family History Family History (Updated 02/16/19 @ 04:35 by Joanne Morgan RN) Grandparent Acute myocardial infarction Sibling Asthma Sibling Asthma Mother Hypertension Social History Social History Smoking status: Never smoker Alcohol intake: never Substance use: never Gender identity (if verbalized by the patient): Male Spiritual care concerns: No Agree to blood products: Yes Exam Narrative: Exam Narrative: General appearance: Well-developed, well-nourished, no family member at the bedside Skin: Normal color Head: Normocephalic, nontraumatic Eyes: Clear conjunctiva ENT: Oropharynx normal, ears normal, nose normal Neck: Supple, nontender Chest and respiratory: Airway patent, no respiratory distress, no accessory muscle use Heart: Regular rate/rhythm Abdomen: Soft, nontender, no organomegaly, quiet bowel sounds Vascular: Normal peripheral pulses, normal capillary refill. 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 Labs, chest x-ray ordered. IV fluid, Dilaudid IV, Zofran IV ordered. Further plan to follow Vi
[2019-03-19] MEDS: HYDROMORPHONE HCL 1 MG/ML INJ 0.5 MG IV PUSH ×3 (16:54→22:07)
[2019-03-19] MEDS: ONDANSETRON INJ 4 MG/2 ML VIAL IV PUSH (16:54)
[2019-03-19] MEDS: SODIUM CHLORIDE 0.9% IV 1,000 ML 999 ML IV CONT (16:55)
[2019-03-19 16:56] LABS: Basophils Absolute Auto 0.1 K/mm3 (0.0-0.1); Basophils Percent Auto 0.9 % (0.2-1.2); Eosinophils Absolute Auto 0.4 K/mm3 (0-0.3); Eosinophils Percent Auto 4.3 % (0-4.4); Hematocrit 29.5 % (42.0-52.0); Hemoglobin 10.1 g/dL (14.0-18.0); Immature Granulocyte Absolute 0.03 K/mm3 (0.00-0.031); Immature Granulocyte Percent A 0.3 % (0-0.5); Lymphocytes Absolute Auto 4.55 K/mm3 (0.9-3.2); Lymphocytes Percent Auto 48.5 % (18.3-44.2); Mean Corpuscular HGB Conc 34.2 g/dl (32-36); Mean Corpuscular Hemoglobin 32.6 pg (26-34); Mean Corpuscular Volume 95.2 fl (80-100); Mean Platelet Volume 10.3 fl (7.4-10.4); Monocytes Absolute Auto 0.8 K/mm3 (0.1-0.6); Monocytes Percent Auto 8.4 % (2.6-8.5); Neutrophils Absolute Auto 3.5 K/mm3 (1.3-6.7); Neutrophils Percent Auto 37.6 % (45.5-73.1); Nucleated Red Blood Cells Perc 0.3 % (0.0-0.2); Platelet Count Result 271 k/mm3 (150-375); Red Cell Distribution Width 14.4 % (11.5-14.5); White Blood Count 9.4 K/mm3 (4.5-10.0)
[2019-03-19 17:04] LABS: Add Urine Microscopic? NO; Appearance Urine Clear (Clear); Bilirubin Urine Negative (Negative); Blood Urine Negative (Negative); Color Urine Yellow (Yellow); Glucose Urine UA Negative (Negative); Ketones Urine Negative (Negative); Leukocyte Esterase Ur Negative LEU/UL (Negative); Nitrate Urine Negative (Negative); Protein Urine Negative (Negative); Specific Grav Ur 1.013 (1.001-1.035); Urobilinogen Urine Negative mg/dL (<2.0)
[2019-03-19 18:42] LABS: Prothrombin Time 13.2 Seconds (11.1-14.7)
[2019-03-19 18:47] LABS: CRP 0.7 mg/dL (<1.0)
--- NOTE | 2019-03-19 19:52 | ADMGEN ---
This patient, Quan Downing, was admitted to Medical Room 243-01. Patient/family oriented to hospital policies and general routines including ID bracelet, bed and alarms, visiting hours, pain management, procedures, bathroom and other care routines, personal items, smoking policy, room service/diet, and visiting hours. Valuables list has been completed. Information on how to activate the Rapid Response Team has been discussed. Patient/Family are encouraged to report perceived risks to care and to ask questions if they do not understand what they are told or what they should do. Admitted at 1935.
[2019-03-19] MEDS: SODIUM CHLORIDE 0.9% IV 1,000 ML 125 ML IV CONT (20:37)
[2019-03-19] MEDS: ALBUTEROL SULFATE NEB 2.5 MG/0.5 ML INH 5 MG INHALATION (20:42)
--- NOTE | 2019-03-19 23:25 | PM.IMHP ---
H&P: HPI History of Present Illness Chief complaint: pneumonia,sickle cell acute lung disease,sickle cr Narrative: Quan Downing is a 33 year old male who has a history of sickle cell anemia. The patient denies any fever chills. He has been having sickle cell pain at least 3-4 days now[address] He sees Dr. stallings for his sickle cell anemia. He last saw Dr. stallings about 2 months ago. Patient has had history of having PE in the past and states that he is taking his Coumadin on a routine basis. However his INR is 1.0. Patient has no fever, no chills, and no cough. X-ray was read as airspace opacities in lower lung zones worsening on the right consistent with sickle cell chronic lung disease with superimposed sickle cell acute lung disease. Patient was given a dose of Levaquin in the emergency room. Started on IV fluids and given Dilaudid for pain. I was told that Dr. stallings was consulted from ER. Patient is being admitted for sickle cell crisis. Review of Systems Review of Systems: Narrative: Patient is complaining of chest pain, arm pain and leg pain. Consistent with sickle cell crisis. He has had a history of having PE x2 and states that he has been taking his Coumadin on a routine basis. He said occasionally he forgets to take a dose or 2. All systems reviewed & are unremarkable except as noted in HPI and below Constitutional: Constitutional: Reports as per HPI and Reports no additional constitutional complaints Eyes: Eyes: Reports as per HPI and Reports no additional eye complaints ENT: Reports system reviewed and no additional complaints, except as documented and Reports hearing normal Cardiovascular: Cardiovascular: Reports no additional cardiovascular complaints Respiratory: Respiratory: Reports no additional respiratory complaints and Reports no additional respiratory complaints Gastrointestinal: Gastrointestinal: Reports as per HPI and Reports no additional gastrointestinal complaints Musculoskeletal: Musculoskeletal: Reports back pain Integumentary/Breasts: Skin/Breast: Reports system reviewed and no additional complaints, except as docu and Reports as per HPI Neurologic: Reports system reviewed and no additional complaints, except as documented, Reports as per HPI and Reports Normal hearing present Psychiatric: Psychiatric: Reports no additional psychiatric complaints and Reports as per HPI Endocrine: Endocrine: Reports no additional endocrine complaints Hematologic/Lymphatic: Hematologic/Lymphatic: Reports no additional hematologic/lymphatic complaints Allergic/Immunologic: Allergic/Immunologic: Reports no additional allergic/immunologic complaints [facility], [facility] Past Medical History Medical History (Updated 03/19/19 @ 23:30 by Alis Rodriguez NP) Acute chest syndrome Chronic narcotic use Chronic pain syndrome History of deep vein thrombosis (DVT) of lower extremity Pneumonia Pulmonary embolism Sickle cell disease, type SC Surgical History Surgical History History of hand surgery 2x on rt fifth finger Family History Family History Grandparent Acute myocardial infarction Sibling Asthma Sibling Asthma Mother Hypertension Social History Social History (Updated 03/19/19 @ 23:32 by Alis Rodriguez NP) Social History: Mary Jane Zuniga his mother is a durable power master black belt for healthcare. He is listed as a full code. Smoking status: Never smoker Second hand tobacco smoke exposure: No Alcohol intake: never Substance use: never Substance use type: does not use Living arrangements: with family Occupation/Education: other Additional occupation/education comments: Disabled Gender identity (if verbalized by the patient): Male Spiritual care concerns: No Agree to blood products: No Meds Home Medications and Allergies Home Medications Medication Instructions R
[2019-03-19] MEDS: HYDROMORPHONE HCL 1 MG/ML INJ 2 MG IV PUSH (23:47)
[2019-03-20] VITALS (12 sets, daily range): BP systolic 109–122; BP diastolic 52–64; PULSE 71–96; RESP 14–20; TEMP 36.2–36.4; O2SAT 91–97
[2019-03-20 00:02] LABS: Reticulocyte Hemoglobin Conten 31.9 pg (28.2-35.7); Reticulocyte Percent 4.82 % (0.7-4.3); Reticulocytes Absolute 0.14 B/L (32.2-175.7)
[2019-03-20] MEDS: ENOXAPARIN 100 MG/ML SYRINGE SUB-Q ×3 (00:40→20:30)
[2019-03-20] MEDS: ALBUTEROL SULFATE NEB 2.5 MG/0.5 ML INH 5 MG INHALATION ×4 (02:18→20:08)
[2019-03-20] MEDS: HYDROMORPHONE HCL 1 MG/ML INJ 2 MG IV PUSH ×8 (03:03→23:36)
[2019-03-20] MEDS: SODIUM CHLORIDE 0.9% IV 1,000 ML 125 ML IV CONT ×3 (05:19→20:27)
[2019-03-20 06:33] LABS: Basophils Absolute Auto 0.1 K/mm3 (0.0-0.1); Basophils Percent Auto 0.7 % (0.2-1.2); Eosinophils Absolute Auto 0.4 K/mm3 (0-0.3); Hematocrit 27.5 % (42.0-52.0); Hemoglobin 9.6 g/dL (14.0-18.0); Immature Granulocyte Absolute 0.03 K/mm3 (0.00-0.031); Immature Granulocyte Percent A 0.2 % (0-0.5); Lymphocytes Absolute Auto 5.43 K/mm3 (0.9-3.2); Lymphocytes Percent Auto 45.1 % (18.3-44.2); Mean Corpuscular HGB Conc 34.9 g/dl (32-36); Mean Corpuscular Hemoglobin 33.2 pg (26-34); Mean Corpuscular Volume 95.2 fl (80-100); Mean Platelet Volume 10.1 fl (7.4-10.4); Monocytes Percent Auto 8.5 % (2.6-8.5); Neutrophils Absolute Auto 5.1 K/mm3 (1.3-6.7); Neutrophils Percent Auto 42.5 % (45.5-73.1); Nucleated Red Blood Cells Perc 0.2 % (0.0-0.2); Platelet Count Result 239 k/mm3 (150-375); Red Blood Count 2.89 M/mm3 (4.6-6.20); Red Cell Distribution Width 14.4 % (11.5-14.5)
[2019-03-20 06:42] LABS: INR 1.1; Prothrombin Time 14.2 Seconds (11.1-14.7)
[2019-03-20 06:48] LABS: Alanine Aminotransferase 30 U/L (4-50); Albumin Level 3.6 g/dL (3.5-5.1); Alkaline Phosphatase 63 U/L (38-126); Aspartate Amino Transferase 34 U/L (17-59); Bilirubin,Total 0.7 mg/dL (0.2-1.3); Blood Urea Nitrogen 5 mg/dL (9-20); Calcium 8.2 mg/dL (8.4-10.2); Carbon Dioxide 24 mmol/L (22-30); Chloride 109 mmol/L (98-107); Estimated CRCL calculation 148 ml/min; Estimated Glomerular Filt Rate > 60; Glucose 100 mg/dL (75-110); Potassium 3.8 mmol/L (3.4-5.0); Sodium 142 mmol/L (137-145)
[2019-03-20] MEDS: FOLIC ACID 1 MG TABLET PO (08:25)
[2019-03-20] MEDS: HYDROXYUREA (*CHEMO) 500 MG CAPSULE PO ×2 (08:25→16:45)
--- NOTE | 2019-03-20 14:00 | PM.IMPN ---
Progress Note: A&P Assessment and Plan (1) Sickle cell anemia with crisis: Code(s): D57.00 - Hb-SS disease with crisis, unspecified Status: Acute Assessment and Plan: Follows with Dr Marks - appreciate recommendations. Continue with his current regimen of oxycodone and methadone with IV dilaudid for breakthrough pain. Continue hydrea and folic acid. Check LDH in AM. CTA chest with atelectasis; was treated last month with antibiotics for productive cough. His cough has resolved. No fever or chills. (2) Chronic narcotic use: Code(s): F11.90 - Opioid use, unspecified, uncomplicated Status: Chronic Assessment and Plan: See above. (3) Chronic anticoagulation: Code(s): Z79.01 - superintendent terminal (current) use of anticoagulants Status: Acute Assessment and Plan: With warfarin for history of pulmonary embolism. CTA chest shows no PE currently. Subtherapeutic INR, Lovenox bridge for now. Check daily INR. Patient admitted he may occasionally miss doses of his warfarin. (4) DVT prophylaxis: Code(s): Z29.9 - Encounter for prophylactic measures, unspecified Status: Acute Assessment and Plan: Lovenox, warfarin Subjective Interval history: 03/20/19 1400 Mr. Downing is a 33yo M admitted for sickle cell crisis. He has pain all over, worst in his back, shoulders, and neck today. He rates his pain 8 out of 10. He denies nausea or vomiting but reports not much of an appetite. He denies chest pain or shortness of breath. He reports his cough has resolved. Exam Narrative: Exam Narrative: General: Male resting supine in bed in no acute distress. HEENT: Normocephalic, EOMI, oral mucosa moist. Cardiovascular: Rate and rhythm are regular. No notable murmur, rub, or gallop. Respiratory: Lungs clear to auscultation. Non-labored breathing. Abdomen: Soft, non-tender, non-distended, bowel sounds present. Extremities: Peripheral pulses intact. No edema. Neuro: No focal neurological deficits. Speech is clear. Objective Data Vital Signs Vital Signs: Last Vital Signs Temp 97.3 F L 03/20/19 14:00 Pulse 86 03/20/19 14:00 Resp 14 03/20/19 14:00 BP 122/64 03/20/19 14:00 Pulse Ox 96 03/20/19 14:00 Intake/Output Intake/Output: Intake & Output 03/17/19 03/18/19 03/19/19 03/20/19 23:59 23:59 23:59 23:59 Intake Total 1150 2710 Output Total 1200 Balance 1150 1510 Meds/Results Medications: Active Medications Generic Name Dose Route Start Last Admin Trade Name Freq PRN Reason Stop Dose Admin Albuterol 5 mg 03/19/19 20:00 03/20/19 13:38 Albuterol Sulf Neb 2.5mg/0.5ml INHALATION 5 mg Q6HRT CHRISTOPHER Administration Diphenhydramine HCl 25 mg 03/19/19 23:18 Benadryl Inj IV PUSH Q4H PRN Itching Enoxaparin Sodium 100 mg 03/19/19 21:00 03/20/19 08:25 Lovenox SUB-Q 100 mg Q12HR CHRISTOPHER Administration Folic Acid 1 mg 03/20/19 09:00 03/20/19 08:25 Folic Acid PO 1 mg DAILY CHRISTOPHER Administration Hydromorphone HCl 2 mg 03/19/19 23:18 03/20/19 14:27 Dilaudid Inj IV PUSH 2 mg Q3H PRN Administration Pain Rated 7-10 Hydroxyurea 500 mg 03/20/19 09:00 03/20/19 08:25 Hydrea PO 500 mg BID CHRISTOPHER Administration Sodium Chloride 1,000 mls @ 125 mls/hr 03/19/19 18:05 03/20/19 13:24 Normal Saline Iv IV CONT 125 mls/hr .Q8H CHRISTOPHER Administration Ibuprofen 800 mg 03/19/19 23:51 Motrin PO Q6H PRN Headache Methadone HCl 10 mg 03/20/19 09:00 03/20/19 10:01 Methadone Hcl PO 10 mg BID CHRISTOPHER Administration Oxycodone HCl 2.5 mg 03/19/19 23:50 03/20/19 07:35 Oxycodone Hcl Ir PO 2.5 mg Q4-6H PRN Administration BREAKTHROUGH PAIN Oxycodone HCl 5 mg 03/19/19 23:51 03/20/19 07:34 Roxicodone Ir PO 5 mg Q4-6H PRN Administration BREAKTHROUGH PAIN Warfar
[2019-03-20] MEDS: WARFARIN (*PBKC) 2.5 MG TABLET PO (16:45)
[2019-03-20] MEDS: WARFARIN (*PBKC) 10 MG TABLET PO (16:45)
[2019-03-20] MEDS: IBUPROFEN 400 MG TABLET 800 MG PO (16:52)
[2019-03-21] VITALS (15 sets, daily range): BP systolic 114–156; BP diastolic 58–75; PULSE 72–88; RESP 16–20; TEMP 36.1–36.5; O2SAT 95–97
[2019-03-21] MEDS: ALBUTEROL SULFATE NEB 2.5 MG/0.5 ML INH 5 MG INHALATION ×4 (01:47→20:50)
[2019-03-21] MEDS: HYDROMORPHONE HCL 1 MG/ML INJ 2 MG IV PUSH ×6 (02:33→19:53)
[2019-03-21] MEDS: SODIUM CHLORIDE 0.9% IV 1,000 ML 125 ML IV CONT ×3 (04:47→19:50)
[2019-03-21 05:19] LABS: Immature Reticulocyte Fraction 22.3 % (3.0-15.9); Reticulocyte Percent 6.39 % (0.7-4.3); Reticulocytes Absolute 0.19 B/L (32.2-175.7)
[2019-03-21 05:20] LABS: Basophils Absolute Auto 0.1 K/mm3 (0.0-0.1); Basophils Percent Auto 0.6 % (0.2-1.2); Eosinophils Absolute Auto 0.4 K/mm3 (0-0.3); Eosinophils Percent Auto 3.7 % (0-4.4); Hematocrit 28.2 % (42.0-52.0); Hemoglobin 9.7 g/dL (14.0-18.0); Immature Granulocyte Absolute 0.04 K/mm3 (0.00-0.031); Immature Granulocyte Percent A 0.4 % (0-0.5); Lymphocytes Absolute Auto 6.14 K/mm3 (0.9-3.2); Lymphocytes Percent Auto 60.9 % (18.3-44.2); Mean Corpuscular HGB Conc 34.4 g/dl (32-36); Mean Corpuscular Volume 93.1 fl (80-100); Mean Platelet Volume 9.9 fl (7.4-10.4); Monocytes Absolute Auto 0.8 K/mm3 (0.1-0.6); Monocytes Percent Auto 7.9 % (2.6-8.5); Neutrophils Absolute Auto 2.7 K/mm3 (1.3-6.7); Neutrophils Percent Auto 26.5 % (45.5-73.1); Nucleated Red Blood Cells Perc 0.2 % (0.0-0.2); Platelet Count Result 291 k/mm3 (150-375); Red Blood Count 3.03 M/mm3 (4.6-6.20); Red Cell Distribution Width 14.4 % (11.5-14.5); White Blood Count 10.1 K/mm3 (4.5-10.0)
[2019-03-21 05:34] LABS: INR 1.1; Prothrombin Time 14.2 Seconds (11.1-14.7)
[2019-03-21 05:38] LABS: Lactate Dehydrogenase 447 U/L (313-618)
[2019-03-21 05:39] LABS: Blood Urea Nitrogen 5 mg/dL (9-20); Calcium 8.5 mg/dL (8.4-10.2); Carbon Dioxide 23 mmol/L (22-30); Chloride 109 mmol/L (98-107); Estimated CRCL calculation 170 ml/min; Estimated Glomerular Filt Rate > 60; Glucose 122 mg/dL (75-110); Potassium 3.5 mmol/L (3.4-5.0); Sodium 142 mmol/L (137-145)
[2019-03-21 05:42] LABS: Ovalocytes 1+ (NORMAL); Platelet Estimate Adequate (Adequate)
[2019-03-21 05:43] LABS: Target Cells 1+ (NORMAL)
[2019-03-21] MEDS: ENOXAPARIN 100 MG/ML SYRINGE SUB-Q ×2 (08:31→19:54)
[2019-03-21] MEDS: HYDROXYUREA (*CHEMO) 500 MG CAPSULE PO ×2 (08:32→17:24)
[2019-03-21] MEDS: FOLIC ACID 1 MG TABLET PO (08:32)
[2019-03-21] MEDS: POTASSIUM CHLORIDE 20 MEQ TABLET PO (10:57)
--- NOTE | 2019-03-21 11:15 | PM.IMPN ---
Progress Note: A&P Assessment and Plan (1) Sickle cell anemia with crisis: Code(s): D57.00 - Hb-SS disease with crisis, unspecified Status: Acute Assessment and Plan: Follows with Dr Marks - appreciate recommendations. Continue with his current regimen of oxycodone and methadone with IV dilaudid for breakthrough pain. Continue hydrea and folic acid. Slowly cut back on the dilaudid anticipating hopeful discharge in 1 - 2 days. CTA chest with atelectasis; was treated last month with antibiotics for productive cough. His cough has resolved. No fever or chills. LDH is within normal limits at 447 today. (2) Chronic narcotic use: Code(s): F11.90 - Opioid use, unspecified, uncomplicated Status: Chronic Assessment and Plan: See above. 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 CTA chest shows no PE currently. Subtherapeutic INR, Lovenox bridge for now. Check daily INR. Patient admitted he may occasionally miss doses of his warfarin. (4) DVT prophylaxis: Code(s): Z29.9 - Encounter for prophylactic measures, unspecified Status: Acute Assessment and Plan: Lovenox, warfarin Subjective Interval history: 03/21/19 1115 Mr. Downing is a 33yo M admitted for sickle cell crisis. He tells me his pain is worse in his low back and legs today. He denies any chest pain, shortness of breath, or cough. He is tolerating a little PO intake and denies nausea or vomiting. Review of Systems Review of Systems: Narrative: Twelve systems were reviewed with pertinent positives and negatives as per HPI. Exam Narrative: Exam Narrative: General: Male resting supine in bed in no acute distress. HEENT: Normocephalic, EOMI, oral mucosa moist. Cardiovascular: Rate and rhythm are regular. No notable murmur, rub, or gallop. Respiratory: Lungs clear to auscultation. Non-labored breathing. Abdomen: Soft, non-tender, non-distended, bowel sounds present. Extremities: Peripheral pulses intact. No edema. Neuro: No focal neurological deficits. Speech is clear. Objective Data Vital Signs Vital Signs: Last Vital Signs Temp 97.3 F L 03/21/19 12:00 Pulse 79 03/21/19 13:26 Resp 18 03/21/19 13:26 BP 127/75 03/21/19 12:00 Pulse Ox 96 03/21/19 12:00 Intake/Output Intake/Output: Intake & Output 03/18/19 03/19/19 03/20/19 03/21/19 23:59 23:59 23:59 23:59 Intake Total 1150 4510 2630 Output Total 3150 1500 Balance 1150 1360 1130 Meds/Results Medications: Active Medications Generic Name Dose Route Start Last Admin Trade Name Freq PRN Reason Stop Dose Admin Albuterol 5 mg 03/19/19 20:00 03/21/19 13:19 Albuterol Sulf Neb 2.5mg/0.5ml INHALATION 5 mg Q6HRT CHRISTOPHER Administration Enoxaparin Sodium 100 mg 03/19/19 21:00 03/21/19 08:31 Lovenox SUB-Q 100 mg Q12HR CHRISTOPHER Administration Folic Acid 1 mg 03/20/19 09:00 03/21/19 08:32 Folic Acid PO 1 mg DAILY CHRISTOPHER Administration Hydromorphone HCl 2 mg 03/19/19 23:18 03/21/19 11:29 Dilaudid Inj IV PUSH 2 mg Q3H PRN Administration Pain Rated 7-10 Hydroxyurea 500 mg 03/20/19 09:00 03/21/19 08:32 Hydrea PO 500 mg BID CHRISTOPHER Administration Sodium Chloride 1,000 mls @ 125 mls/hr 03/19/19 18:05 03/21/19 11:30 Normal Saline Iv IV CONT 125 mls/hr .Q8H CHRISTOPHER Administration Ibuprofen 800 mg 03/19/19 23:51 03/20/19 16:52 Motrin PO 800 mg Q6H PRN Administration Headache Methadone HCl 10 mg 03/20/19 09:00 03/21/19 08:32 Methadone Hcl PO 10 mg BID CHRISTOPHER Administration Oxycodone HCl 2.5 mg 03/19/19 23:50 03/20/19 07:35 Oxycodone Hcl Ir PO 2.5 mg Q4-6H PRN Administration BREAKTHROUGH PAIN Oxycodone HC
[2019-03-21] MEDS: WARFARIN (*PBKC) 10 MG TABLET PO (17:25)
[2019-03-21] MEDS: WARFARIN (*PBKC) 2.5 MG TABLET PO (17:25)
[2019-03-22] VITALS (13 sets, daily range): BP systolic 109–134; BP diastolic 60–81; PULSE 72–90; RESP 16–18; TEMP 36.2–36.8; O2SAT 96–99
[2019-03-22] MEDS: HYDROMORPHONE HCL 1 MG/ML INJ 2 MG IV PUSH ×2 (00:03→04:09)
[2019-03-22] MEDS: ALBUTEROL SULFATE NEB 2.5 MG/0.5 ML INH 5 MG INHALATION ×4 (02:32→19:28)
[2019-03-22] MEDS: SODIUM CHLORIDE 0.9% IV 1,000 ML 125 ML IV CONT ×3 (04:08→20:10)
[2019-03-22 05:30] LABS: Lactate Dehydrogenase 494 U/L (313-618)
[2019-03-22 05:32] LABS: INR 1.3; Prothrombin Time 15.4 Seconds (11.1-14.7)
[2019-03-22 05:37] LABS: Blood Urea Nitrogen 4 mg/dL (9-20); Calcium 8.6 mg/dL (8.4-10.2); Carbon Dioxide 25 mmol/L (22-30); Chloride 109 mmol/L (98-107); Estimated CRCL calculation 170 ml/min; Estimated Glomerular Filt Rate > 60; Glucose 107 mg/dL (75-110); Potassium 3.8 mmol/L (3.4-5.0); Sodium 141 mmol/L (137-145)
[2019-03-22] MEDS: ENOXAPARIN 100 MG/ML SYRINGE SUB-Q ×2 (08:08→20:12)
[2019-03-22] MEDS: HYDROMORPHONE HCL 1 MG/ML INJ IV PUSH ×2 (08:09→12:02)
[2019-03-22] MEDS: HYDROXYUREA (*CHEMO) 500 MG CAPSULE PO ×2 (08:13→17:16)
[2019-03-22] MEDS: FOLIC ACID 1 MG TABLET PO (08:13)
--- NOTE | 2019-03-22 14:00 | PM.IMPN ---
Progress Note: A&P Assessment and Plan (1) Sickle cell anemia with crisis: Code(s): D57.00 - Hb-SS disease with crisis, unspecified Status: Acute Assessment and Plan: Follows with Dr Marks - appreciate recommendations. Continue with his current regimen of oxycodone and methadone with IV dilaudid for breakthrough pain. Continue hydrea and folic acid. Slowly cut back on the dilaudid anticipating hopeful discharge in 1 - 2 days. CTA chest with atelectasis; was treated last month with antibiotics for productive cough. His cough has resolved. No fever or chills. LDH is 494 today. (2) Chronic narcotic use: Code(s): F11.90 - Opioid use, unspecified, uncomplicated Status: Chronic Assessment and Plan: See above. 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 CTA chest shows no PE currently. Subtherapeutic INR, Lovenox bridge for now. Check daily INR. Patient admitted he may occasionally miss doses of his warfarin. Discussed with patient that he will likely need to discharge with the lovenox injections and warfarin. In November when he was dx with PE, he was discharged with lovenox bridge and Warfarin as well and he verbalizes understanding. Plan is to call Dr Marks's office tomorrow to get him a set appointment so he has an established plan; will need lovenox injections, warfarin, and scheduled INR before Dr Marks's appointment. (4) DVT prophylaxis: Code(s): Z29.9 - Encounter for prophylactic measures, unspecified Status: Acute Assessment and Plan: Lovenox, warfarin Subjective Interval history: 03/22/19 1115 Mr. Downing is a 33yo M admitted for sickle cell crisis. He tells me his pain is worse than yesterday. His back and legs hurt most today. He denies any chest pain, shortness of breath, or cough. He denies nausea or vomiting. Review of Systems Review of Systems: Narrative: Twelve systems were reviewed with pertinent positives and negatives as per HPI. Exam Narrative: Exam Narrative: General: Male resting supine in bed cramping up in pain. HEENT: Normocephalic, EOMI, oral mucosa moist. Cardiovascular: Rate and rhythm are regular. No notable murmur, rub, or gallop. Respiratory: Lungs clear to auscultation. Non-labored breathing. Abdomen: Soft, non-tender, non-distended, bowel sounds present. Extremities: Peripheral pulses intact. No edema. Neuro: No focal neurological deficits. Speech is clear. Objective Data Vital Signs Vital Signs: Last Vital Signs Temp 97.3 F L 03/22/19 12:00 Pulse 73 03/22/19 12:00 Resp 16 03/22/19 12:00 BP 121/71 03/22/19 12:00 Pulse Ox 99 03/22/19 12:00 Intake/Output Intake/Output: Intake & Output 03/19/19 03/20/19 03/21/19 03/22/19 23:59 23:59 23:59 23:59 Intake Total 1150 4510 4430 2630 Output Total 3150 3625 2675 Balance 1150 1360 805 -45 Meds/Results Medications: Active Medications Generic Name Dose Route Start Last Admin Trade Name Freq PRN Reason Stop Dose Admin Albuterol 5 mg 03/19/19 20:00 03/22/19 14:03 Albuterol Sulf Neb 2.5mg/0.5ml INHALATION 5 mg Q6HRT CHRISTOPHER Administration Enoxaparin Sodium 100 mg 03/19/19 21:00 03/22/19 08:08 Lovenox SUB-Q 100 mg Q12HR CHRISTOPHER Administration Folic Acid 1 mg 03/20/19 09:00 03/22/19 08:13 Folic Acid PO 1 mg DAILY CHRISTOPHER Administration Hydromorphone HCl 2 mg 03/22/19 15:02 Dilaudid Inj IV PUSH Q4H PRN Pain Rated 7-10 Hydroxyurea 500 mg 03/20/19 09:00 03/22/19 08:13 Hydrea PO 500 mg BID CHRISTOPHER Administration Sodium Chloride 1,000 mls @ 125 mls/hr 03/19/19 18:05 03/22/19 11:36 Normal Saline Iv IV CONT 125 mls/hr .Q8H CHRISTOPHER Administration Ibuprofen 800 mg 1
[2019-03-22] MEDS: HYDROMORPHONE HCL 2 MG/ML VIAL IV PUSH ×2 (16:08→20:11)
[2019-03-22] MEDS: WARFARIN (*PBKC) 2.5 MG TABLET PO (17:16)
[2019-03-22] MEDS: WARFARIN (*PBKC) 10 MG TABLET PO (17:17)
[2019-03-23] VITALS (7 sets, daily range): BP systolic 117–138; BP diastolic 71–82; PULSE 65–88; RESP 16–20; TEMP 36.1–36.7; O2SAT 92–100
[2019-03-23] MEDS: HYDROMORPHONE HCL 2 MG/ML VIAL IV PUSH ×2 (00:11→04:26)
[2019-03-23] MEDS: ALBUTEROL SULFATE NEB 2.5 MG/0.5 ML INH 5 MG INHALATION ×2 (01:44→08:49)
[2019-03-23] MEDS: SODIUM CHLORIDE 0.9% IV 1,000 ML 125 ML IV CONT (04:25)
--- NOTE | 2019-03-23 06:14 | CONS_ITS ---
CHANGED TO DRAFT 03/26/19 REPORT TYPE CHANGED FROM DISCHARGE SUMMARY TO CONSULTATION/ORIGINALLY SIGNED 03/23/19 0841 DATE OF DISCHARGE: REASON FOR CONSULTATION: Sickle cell crisis. HISTORY OF PRESENTING ILLNESS: This is a 33-year-old male with sickle cell SC disease, came into the hospital with typical complaint of his sickle cell crisis pain including pain in the back, chest, lower and upper extremities. He had been taking methadone as well as [place] as needed at home. He denies any fevers and chills. The patient has a history of pulmonary embolism diagnosed twice and has been on Coumadin. On arrival to the ER, his INR was subtherapeutic at 1.0. Chest x-ray showed airspace opacities in the lower lung zone, worsening consistent with sickle cell disease with possible superimposed acute lung disease. He denies any diarrhea and urinary symptoms. REVIEW OF SYSTEMS: A 12-point review of system was reviewed and as per HPI, otherwise negative. PAST MEDICAL HISTORY: Sickle cell SC disease, history of acute chest syndrome, recurrent pulmonary embolism, history of DVT in the lower extremities and chronic narcotic use. PAST SURGICAL HISTORY: Hand surgery. FAMILY HISTORY: Positive for coronary artery disease in grandparents and asthma. SOCIAL HISTORY: The patient is and has 3 children. Denies any history of smoking and drinks occasionally. The patient is on disability. HOME MEDICATION: Reviewed. ALLERGIES: REVIEWED. PHYSICAL EXAMINATION: GENERAL: This patient is a well-developed, well-nourished, male, in no apparent distress. VITAL SIGNS: Oriented x3. Vital signs per nursing notes. HEENT: Normocephalic, atraumatic. Clear oropharynx. LUNGS: Clear to auscultation bilaterally. CARDIOVASCULAR: Regular rate and rhythm. No murmurs. ABDOMEN: Soft, nontender, nondistended. Bowel sounds are positive in all 4 quadrants. No hepatosplenomegaly. EXTREMITIES: No edema. NEURO: Grossly intact. LABORATORY DATA: WBC 12.0, hemoglobin 9.6, platelet 239,000, neutrophils 42%, lymphocytes 45%. INR 1.1, calcium 8.2, total bilirubin 0.7. Retic count 4.8. ASSESSMENT AND PLAN: 1. Sickle cell SC disease with frequent sickle cell crisis episodes. Labs reviewed. No need for blood transfusion. Continue hydroxyurea 500 mg b.i.d. with folic acid 1 mg p.o. daily. The patient is on IV hydration and receiving Dilaudid 2 mg IV q.3 hours for pain control. 2. History of recurrent pulmonary embolism. CTA chest showed no evidence of pulmonary embolism, but bibasilar opacities, which could be sickle cell related to chronic lung disease versus some acute lung changes. Given the possibility of infection, we have prescribed possibility of infection. Levaquin was given in the ER. 3. Recurrent pulmonary embolism. The patient will continue Coumadin. Hopefully, the patient should be able to go home in next 1-2 days to follow up on an as needed basis in my office. D I MT: Becky PEÑA
[2019-03-23 06:19] LABS: Basophils Absolute Auto 0.1 K/mm3 (0.0-0.1); Basophils Percent Auto 0.8 % (0.2-1.2); Eosinophils Absolute Auto 0.4 K/mm3 (0-0.3); Eosinophils Percent Auto 4.2 % (0-4.4); Hematocrit 28.6 % (42.0-52.0); Immature Granulocyte Absolute 0.01 K/mm3 (0.00-0.031); Immature Granulocyte Percent A 0.1 % (0-0.5); Immature Platelet Fraction Pct 3.6 % (0.9-11.2); Immature Reticulocyte Fraction 22.6 % (3.0-15.9); Lymphocytes Absolute Auto 5.14 K/mm3 (0.9-3.2); Lymphocytes Percent Auto 57.3 % (18.3-44.2); Mean Corpuscular Hemoglobin 32.9 pg (26-34); Mean Corpuscular Volume 94.1 fl (80-100); Mean Platelet Volume 10.9 fl (7.4-10.4); Monocytes Absolute Auto 0.7 K/mm3 (0.1-0.6); Monocytes Percent Auto 7.6 % (2.6-8.5); Neutrophils Absolute Auto 2.7 K/mm3 (1.3-6.7); Nucleated Red Blood Cells Perc 0.2 % (0.0-0.2); Platelet Count Result 287 k/mm3 (150-375); Red Blood Count 3.04 M/mm3 (4.6-6.20); Red Cell Distribution Width 14.3 % (11.5-14.5); Reticulocyte Hemoglobin Conten 31.7 pg (28.2-35.7); Reticulocyte Percent 5.57 % (0.7-4.3); Reticulocytes Absolute 0.17 B/L (32.2-175.7)
[2019-03-23 06:26] LABS: INR 1.7; Prothrombin Time 19.3 Seconds (11.1-14.7)
[2019-03-23 06:28] LABS: Blood Urea Nitrogen 5 mg/dL (9-20); Calcium 8.5 mg/dL (8.4-10.2); Carbon Dioxide 24 mmol/L (22-30); Chloride 109 mmol/L (98-107); Estimated CRCL calculation 170 ml/min; Estimated Glomerular Filt Rate > 60; Glucose 96 mg/dL (75-110); Lactate Dehydrogenase 473 U/L (313-618); Sodium 141 mmol/L (137-145)
[2019-03-23] MEDS: FOLIC ACID 1 MG TABLET PO (08:08)
[2019-03-23] MEDS: ENOXAPARIN 100 MG/ML SYRINGE SUB-Q (08:08)
[2019-03-23] MEDS: HYDROXYUREA (*CHEMO) 500 MG CAPSULE PO (08:08)
[2019-03-23] MEDS: HYDROMORPHONE HCL 1 MG/ML INJ IV PUSH ×2 (08:08→12:07)
--- NOTE | 2019-03-23 10:00 | PM.DS ---
DS: Diagnosis Admitting Diagnosis Admitting Diagnosis: Sickle-cell/Hb-C disease with crisis, unspecified Discharge Diagnosis (1) Sickle cell anemia with crisis: Code(s): D57.00 - Hb-SS disease with crisis, unspecified Status: Acute Assessment and Plan: Date of Service 03/23/19: - This Discharge Summary is for Mr. Downing is a 34yo M with sickle cell disease who presented to the ED for evaluation of generalized pain. He had been experiencing increased pain to his back, neck, and shoulders and his home oral pain regimen was not providing relief. Dr Marks was consulted. He was maintained on his home regimen with methadone and oxycodone and started on IV hydromorphone for breakthrough pain. Patient admitted he sometimes missed doses of Warfarin at home. His INR was subtherapeutic here and he was maintained on Lovenox bridge throughout this admission. Day of discharge, INR was 1.7. Discussed case with Dr Marks who recommended discharge without Lovenox injections and redraw INR 03/26 with results to go to his office, and he would follow up with the patient as an outpatient. His symptoms were improved with the therapy outlined above and he was agreeable with plan for discharge and follow up with Dr Marks. Follows with Dr Marks. He was maintained on his home regimen of methadone and oxycodone and treated with IV hydromorphone for breakthrough pain. He was maintained on his home hydrea and folic acid. CTA chest with atelectasis; was treated last month with antibiotics for productive cough, now resolved. No fever or chills. (2) Chronic narcotic use: Code(s): F11.90 - Opioid use, unspecified, uncomplicated Status: Chronic Assessment and Plan: See above. (3) Chronic anticoagulation: Code(s): Z79.01 - halfway (current) use of anticoagulants Status: Acute Assessment and Plan: With warfarin for history of pulmonary embolism. CTA chest shows no PE currently. Subtherapeutic INR, he was treated here with Lovenox bridge. INR day of discharge is 1.7. Discussed case with Dr Marks who recommends discharge without Lovenox and recheck INR 03/26/19. (4) DVT prophylaxis: Code(s): Z29.9 - Encounter for prophylactic measures, unspecified Status: Acute Assessment and Plan: Lovenox, warfarin DS: Summary Time Spent with Patient Time attestation: Total time spent providing and/or coordinating discharge services: 35 minutes Exam Narrative: Exam Narrative: General: Male resting supine in bed in no acute distress. HEENT: Normocephalic, EOMI, oral mucosa moist. Cardiovascular: Rate and rhythm are regular. No notable murmur, rub, or gallop. Respiratory: Lungs clear to auscultation. Non-labored breathing. Abdomen: Soft, non-tender, non-distended, bowel sounds present. Extremities: Peripheral pulses intact. No edema. Neuro: No focal neurological deficits. Speech is clear. DS: Data Imaging Radiologist's impression: ITS Impressions Chest X-Ray 03/19/19 17:10 IMPRESSION: 1. Airspace opacities in the lower lung zones with worsening on the right, consistent with sickle cell chronic lung disease with superimposed sickle cell acute lung disease. Chest CTA 03/20/19 09:27 IMPRESSION: 1. Multiple linear basilar opacities, appearance most consistent with multifocal atelectasis, more pronounced than on prior study. 2. Cardiomegaly. Discharge Plan Discharge Attending physician on discharge: Elbert Damian Consulting providers: Jone Marks ; Alis Rodriguez ; Idalia Castañeda ; Reji Merino V. ; Jose R Valderrama Discharging Clinician: Idalia Castañeda Anticipated Discharge Date/Time: 03/23/19 12:00 Patient Disposition: Home, Self-Care Activity: as tolerated Diet: as tolerated Discharge Instructions: Call Dr Marks's off
== END 2019-03-23 13:50 | disposition home or self-care (01) | DRG 662 ==
LOC: ANHED 18:23 → ANH2MED 18:28
PROVIDERS: Nurse Practitioner; Physician Assistant; Admitting Provider Internal Medicine; Emergency Provider Emergency Medicine; PCP Internal Medicine Hematology & Oncology; Visit Provider Family Medicine
DX: D57.219 Sickle-cell/Hb-C disease with crisis, unspecified (principal); G89.4 Chronic pain syndrome; J98.4 Other disorders of lung; F11.90 Opioid use, unspecified, uncomplicated; Z86.711 Personal history of pulmonary embolism; Z86.718 Personal history of other venous thrombosis and embolism; Z79.01 Long term (current) use of anticoagulants
CPT/HCPCS: 36415; 71045; 71275; 80048; 80053; 81003; 83605; 83615; 85025; 85046; 85610; 86140; 87040; 94640; 96361; 96365; 96375; 96376; 99285; A9270; J1170; J1650; J1956; J2405; J7030; Q9967

== ENCOUNTER 2019-05-15 09:54 | Emergency (ER) | payer OTHER, SELFPAY ==
--- NOTE | ~2019-05-15 | XR_ITS ---
EXAMINATION: XR chest 2V DATE: 05/15/2019 10:44 INDICATION: Chest pain, sickle cell TECHNIQUE: Frontal and lateral views of the chest are obtained COMPARISON: 03/19/2019 FINDINGS: The lungs are free of acute opacities. Chronic atelectasis or scarring is seen in the lung bases. There is no pleural effusion or pneumothorax. The cardiomediastinal silhouette is normal. The visualized bones and soft tissues are unremarkable. IMPRESSION: 1. No acute cardiopulmonary abnormality. Reviewed, dictated and finalized at location A. STRATE ASSISTANT
[2019-05-15 10:02] VITALS: BP 134/80; PULSE 88; RESP 18; TEMP 36.4; O2SAT 94
--- NOTE | 2019-05-15 10:19 | PC.NURSE ---
Attempted IV access x 2, unsuccessful. Alessia from vascular access notified.
--- NOTE | 2019-05-15 10:23 | ED.GENADULT ---
HPI - General Adult General Chief complaint: Unspecified Stated complaint: SICKLE CELL PAIN Time Seen by Provider: 05/15/19 10:06 Source: patient and RN notes reviewed Mode of arrival: ambulatory Limitations: no limitations History of Present Illness HPI narrative: Pt is a 34 y/o -[place] Citizen male with a Hx of sickle cell anemia, who presents to the ED with c/o sickle cell pain starting 6 days ago. He notes that the majority of his pain is located in his back, ribs, and legs. Pt states that he is chronically prescribed Methadone 10 mg and Oxycodone 7.5 mg for his pain, but notes that these medications haven't provided him any relief from his symptoms. He states that he ran out of his Methadone 2 days ago, and notes that he last took Oxycodone 7-8 hours ago. Pt currently denies any nausea, vomiting, cough, fever, or other symptoms. MD complaint: Sickle Cell Pain Onset (ago): day(s) (6) Location: chest (ribs), back and lower extremity (legs) Pain Consistency: constant Relieving factors: none Associated symptoms: denies other symptoms Treatments prior to arrival: other (Oxycodone) Related Data Home Medications Medication Instructions Recorded Confirmed folic acid 1 mg PO DAILY 02/16/19 03/25/19 hydroxyurea 500 mg PO BID 02/16/19 03/25/19 ibuprofen 800 mg PO Q6H PRN 02/16/19 03/25/19 methadone 10 mg PO BID 02/16/19 03/25/19 oxycodone 7.5 mg PO Q4-6H PRN 02/16/19 03/25/19 warfarin [Coumadin] 10 mg PO DAILY 02/16/19 03/25/19 Allergies Allergy/AdvReac Type Severity Reaction Status Date / Time Fish Containing Products Allergy Intermediate Itching Verified 03/24/19 21:57 Review of Systems Review of Systems: All systems reviewed & are unremarkable except as noted in HPI and below Constitutional: Constitutional: Denies fever(s) Respiratory: Respiratory: Denies cough Gastrointestinal: Gastrointestinal: Denies nausea and Denies vomiting Musculoskeletal: Musculoskeletal: Reports back pain and Reports other (rib pain; bilateral leg pain) PMF Past Medical History Medical History Acute chest syndrome Chronic narcotic use Chronic pain syndrome History of deep vein thrombosis (DVT) of lower extremity Pneumonia Pulmonary embolism Sickle cell disease, type SC Surgical History Surgical History History of hand surgery 2x on rt fifth finger Social History Social History Social History: Mary Jane Zuniga his mother is a durable power commonwealth attorney for healthcare. He is listed as a full code. Smoking status: Never smoker Second hand tobacco smoke exposure: No Alcohol intake: never Substance use: never Substance use type: does not use Additional occupation/education comments: Disabled Gender identity (if verbalized by the patient): Male Spiritual care concerns: No Agree to blood products: Yes Exam Narrative: Exam Narrative: GENERAL: Well-appearing, well-nourished, and in no acute distress. HEAD: Normocephalic, atraumatic EYES: PERRLA and EOMI, conjunctiva clear without discharge THROAT:Mucous membranes moist, Oropharynx normal without erythema, exudate, peritonsillar swelling or fluctuance NECK: Supple, without lymphadenopathy or mass RESPIRATORY: No respiratory distress, Airway patent, Respirations non-labored, Clear to auscultation without rales, rhonchi or wheeze HEART: Regular rate and rhythm. No murmur heard. Normal peripheral pulses. ABDOMEN: Soft, nontender, nondistended, normal active bowel sounds. No masses. No rebound or guarding, No organomegaly. EXTREMITIES: No edema, normal strength with full range of motion. SKIN: Warm, dry, normal color without rash NEURO: Alert and oriented x3. CN 2-12 grossly intact. No focal deficits. PSYCH: Normal mood and affect. Course Reevaluation(s) Reevaluation #1: Patient states he thinks he can be discharged
[2019-05-15 10:47] LABS: Basophils Percent Auto 0.6 % (0.2-1.2); Eosinophils Absolute Auto 0.2 K/mm3 (0-0.3); Eosinophils Percent Auto 2.5 % (0-4.4); Hematocrit 28.4 % (42.0-52.0); Hemoglobin 10.1 g/dL (14.0-18.0); Immature Granulocyte Absolute 0.01 K/mm3 (0.00-0.031); Immature Granulocyte Percent A 0.1 % (0-0.5); Lymphocytes Absolute Auto 3.56 K/mm3 (0.9-3.2); Lymphocytes Percent Auto 51.4 % (18.3-44.2); Mean Corpuscular HGB Conc 35.6 g/dl (32-36); Mean Corpuscular Hemoglobin 31.9 pg (26-34); Mean Corpuscular Volume 89.6 fl (80-100); Mean Platelet Volume 10.3 fl (7.4-10.4); Monocytes Absolute Auto 0.7 K/mm3 (0.1-0.6); Monocytes Percent Auto 9.4 % (2.6-8.5); Neutrophils Absolute Auto 2.5 K/mm3 (1.3-6.7); Platelet Count Result 344 k/mm3 (150-375); Red Blood Count 3.17 M/mm3 (4.6-6.20); Red Cell Distribution Width 14.6 % (11.5-14.5); White Blood Count 6.9 K/mm3 (4.5-10.0)
[2019-05-15 10:54] VITALS: BP 128/78; PULSE 73; RESP 18; O2SAT 95
[2019-05-15 10:55] LABS: INR 1.2; Prothrombin Time 14.4 Seconds (11.1-14.7)
[2019-05-15 10:56] LABS: Partial Thromboplastin Time 25.8 SECONDS (22.3-36.8)
[2019-05-15 10:59] LABS: Alanine Aminotransferase 25 U/L (4-50); Albumin Level 4.1 g/dL (3.5-5.1); Alkaline Phosphatase 79 U/L (38-126); Aspartate Amino Transferase 32 U/L (17-59); Bilirubin,Total 0.7 mg/dL (0.2-1.3); Blood Urea Nitrogen 8 mg/dL (9-20); Calcium 8.9 mg/dL (8.4-10.2); Carbon Dioxide 24 mmol/L (22-30); Chloride 107 mmol/L (98-107); Estimated CRCL calculation 149 ml/min; Estimated Glomerular Filt Rate > 60; Glucose 102 mg/dL (75-110); Potassium 3.7 mmol/L (3.4-5.0); Sodium 142 mmol/L (137-145)
[2019-05-15 11:09] LABS: Add Urine Microscopic? YES; Appearance Urine Clear (Clear); Bacteria Urine Trace /hpf; Bilirubin Urine Negative (Negative); Blood Urine Negative (Negative); Color Urine Yellow (Yellow); Glucose Urine UA Negative (Negative); Ketones Urine Negative (Negative); Leukocyte Esterase Ur Negative LEU/UL (Negative); Mucus Urine Rare /lpf; Nitrate Urine Negative (Negative); Protein Urine Negative (Negative); RBC Urine 0-2 /hpf (0-2); Specific Grav Ur 1.014 (1.001-1.035); WBC Urine 0-3 /hpf
[2019-05-15] MEDS: HYDROMORPHONE HCL 1 MG/ML INJ 2 MG IV PUSH ×2 (11:42→13:31)
[2019-05-15] MEDS: ONDANSETRON INJ 4 MG/2 ML VIAL IV PUSH (11:43)
[2019-05-15] MEDS: SODIUM CHLORIDE 0.9% IV 1,000 ML 999 ML IV CONT (11:43)
--- NOTE | 2019-05-15 11:55 | PC.NURSE ---
rn incorrectly pulled out only 1 mg of dilaudid however order for 2 mg. another vial of 1 mg pulled from [employer] and given so that pt rec'd ordered dose of 2 mg
[2019-05-15 12:07] LABS: Immature Reticulocyte Fraction 30.4 % (3.0-15.9); Reticulocyte Hemoglobin Conten 30.9 pg (28.2-35.7); Reticulocyte Percent 4.94 % (0.7-4.3); Reticulocytes Absolute 0.16 B/L (32.2-175.7)
[2019-05-15 12:20] VITALS: BP 116/81; PULSE 80; RESP 18; O2SAT 95
[2019-05-15 13:01] VITALS: BP 126/85; PULSE 73; RESP 16; O2SAT 98
[2019-05-15 14:39] VITALS: BP 121/88; PULSE 77; RESP 18; TEMP 37; O2SAT 95
== END 2019-05-15 14:46 | disposition home or self-care (01) ==
PROVIDERS: Emergency Provider General Practice; PCP Internal Medicine Hematology & Oncology
DX: D57.00 Hb-SS disease with crisis, unspecified (principal); R79.1 Abnormal coagulation profile; G89.4 Chronic pain syndrome; Z86.718 Personal history of other venous thrombosis and embolism; Z86.711 Personal history of pulmonary embolism
CPT/HCPCS: 36415; 71046; 80053; 81001; 85025; 85046; 85610; 85730; 96361; 96374; 96375; 96376; 99284; J1170; J2405; J7030

== ENCOUNTER 2019-05-17 04:30 | Inpatient (IN) | payer OTHER, SELFPAY ==
[2019-05-17] VITALS (7 sets, daily range): BP systolic 108–148; BP diastolic 61–88; PULSE 70–96; RESP 12–20; TEMP 36.3–37.3; O2SAT 95–98; BMI 33.3
[2019-05-17 05:53] LABS: Basophils Absolute Auto 0.1 K/mm3 (0.0-0.1); Basophils Percent Auto 0.8 % (0.2-1.2); Eosinophils Absolute Auto 0.3 K/mm3 (0-0.3); Eosinophils Percent Auto 3.3 % (0-4.4); Hematocrit 30.4 % (42.0-52.0); Hemoglobin 10.8 g/dL (14.0-18.0); Immature Granulocyte Absolute 0.01 K/mm3 (0.00-0.031); Immature Granulocyte Percent A 0.1 % (0-0.5); Immature Platelet Fraction Pct 4.2 % (0.9-11.2); Immature Reticulocyte Fraction 30.4 % (3.0-15.9); Lymphocytes Absolute Auto 4.89 K/mm3 (0.9-3.2); Mean Corpuscular HGB Conc 35.5 g/dl (32-36); Mean Corpuscular Hemoglobin 31.9 pg (26-34); Mean Corpuscular Volume 89.7 fl (80-100); Mean Platelet Volume 11.3 fl (7.4-10.4); Monocytes Absolute Auto 0.7 K/mm3 (0.1-0.6); Monocytes Percent Auto 8.2 % (2.6-8.5); Neutrophils Absolute Auto 2.6 K/mm3 (1.3-6.7); Neutrophils Percent Auto 30.6 % (45.5-73.1); Nucleated Red Blood Cells Perc 0.3 % (0.0-0.2); Platelet Count Result 338 k/mm3 (150-375); Red Blood Count 3.39 M/mm3 (4.6-6.20); Red Cell Distribution Width 14.6 % (11.5-14.5); Reticulocyte Hemoglobin Conten 33.5 pg (28.2-35.7); Reticulocyte Percent 5.35 % (0.7-4.3); Reticulocytes Absolute 0.18 B/L (32.2-175.7); White Blood Count 8.6 K/mm3 (4.5-10.0)
[2019-05-17 06:07] LABS: Alanine Aminotransferase 25 U/L (4-50); Albumin Level 4.5 g/dL (3.5-5.1); Alkaline Phosphatase 86 U/L (38-126); Aspartate Amino Transferase 44 U/L (17-59); Bilirubin,Total 0.9 mg/dL (0.2-1.3); Blood Urea Nitrogen 7 mg/dL (9-20); Calcium 8.6 mg/dL (8.4-10.2); Carbon Dioxide 24 mmol/L (22-30); Chloride 107 mmol/L (98-107); Estimated Glomerular Filt Rate > 60; Glucose 99 mg/dL (75-110); Potassium 3.8 mmol/L (3.4-5.0); Sodium 141 mmol/L (137-145)
[2019-05-17 06:28] LABS: Platelet Estimate Adequate (Adequate)
[2019-05-17 06:29] LABS: Polychromasia 1+ (NORMAL); Sickle Cells 1+ (NORMAL); Target Cells 3+ (NORMAL)
--- NOTE | 2019-05-17 07:12 | ED.GENADULT ---
HPI - General Adult General Chief complaint: Unspecified Stated complaint: SICKLE CELL Time Seen by Provider: 05/17/19 06:15 Source: patient Mode of arrival: ambulatory Limitations: no limitations History of Present Illness HPI narrative: 34 years old -[place] male history of sickle cell anemia presents with sickle cell pain. Patient complaining of back, legs and ribs pain started few days ago, came to our emergency room 4 days ago and received IV Dilaudid and decided to leave at that time, pain did not get better, currently patient on oxycodone 7.5 mg every 4 hours as needed, methadone 10 mg twice daily, Motrin, hydroxyurea, folic acid and Coumadin patient denies any fever, chills, nausea, vomiting, urinary symptoms, or respiratory symptoms or chest pain Related Data Home Medications Medication Instructions Recorded Confirmed folic acid 1 mg PO DAILY 02/16/19 03/25/19 hydroxyurea 500 mg PO BID 02/16/19 03/25/19 ibuprofen 800 mg PO Q6H PRN 02/16/19 03/25/19 methadone 10 mg PO BID 02/16/19 03/25/19 oxycodone 7.5 mg PO Q4-6H PRN 02/16/19 03/25/19 warfarin [Coumadin] 10 mg PO DAILY 02/16/19 03/25/19 Allergies Allergy/AdvReac Type Severity Reaction Status Date / Time Fish Containing Products Allergy Intermediate Itching Verified 05/17/19 04:31 Review of Systems Review of Systems: Narrative: CONSTITUTIONAL: Denies fever, chills, or sweats. EYES: Denies visual changes, redness, or discharge. ENT: Denies rhinorrhea, congestion, sore throat, or otalgia. CARDIOVASCULAR: Denies chest pain, palpitations, or edema. RESPIRATORY: Denies cough or dyspnea. GASTROINTESTINAL: Denies abdominal pain, nausea, vomiting, or diarrhea. GENITOURINARY: Denies dysuria or hematuria. SKIN: Denies rash or itching. MUSCULOSKELETAL: Back pain, legs pain, ribs pain NEUROLOGIC: Denies headache, numbness, or weakness. PSYCHIATRIC: Denies anxiety or depression. [facility] Past Medical History Medical History Acute chest syndrome Chronic narcotic use Chronic pain syndrome History of deep vein thrombosis (DVT) of lower extremity Pneumonia Pulmonary embolism Sickle cell disease, type SC Surgical History Surgical History History of hand surgery 2x on rt fifth finger Family History Family History Grandparent Acute myocardial infarction Sibling Asthma Sibling Asthma Mother Hypertension Social History Social History Social History: Mary Jane Zuniga his mother is a durable power research engineer for healthcare. He is listed as a full code. Smoking status: Never smoker Second hand tobacco smoke exposure: No Alcohol intake: never Substance use: never Substance use type: does not use Additional occupation/education comments: Disabled Gender identity (if verbalized by the patient): Male Spiritual care concerns: No Agree to blood products: Yes Exam Narrative: Exam Narrative: General appearance: Well-developed, well-nourished. Patient looks comfortable, does not look in pain or distress Skin: Normal color Head: Normocephalic, nontraumatic Eyes: Clear conjunctiva ENT: Oropharynx normal, ears normal, nose normal Neck: Supple, nontender Chest and respiratory: Airway patent, no respiratory distress, no accessory muscle use Heart: Regular rate/rhythm Abdomen: Soft, nontender, no organomegaly, quiet bowel sounds Vascular: Normal peripheral pulses, normal capillary refill. 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
[2019-05-17] MEDS: KETOROLAC 30 MG/ML VIAL (*BKC) IV PUSH (07:20)
[2019-05-17] MEDS: HYDROMORPHONE HCL 1 MG/ML INJ 0.5 MG IV PUSH ×3 (07:21→10:18)
[2019-05-17] MEDS: SODIUM CHLORIDE 0.9% IV 1,000 ML 999 ML IV CONT (07:21)
[2019-05-17] MEDS: ONDANSETRON INJ 4 MG/2 ML VIAL IV PUSH (07:21)
--- NOTE | 2019-05-17 08:06 | PC.NURSE ---
PT redrawn and sent to lab
--- NOTE | 2019-05-17 08:29 | PC.NURSE ---
PT REPORTS HE WOULD LIKE 2MG OF DILAUDID VS THE 0.5 THAT WAS ORDERED. THIS RN DISCUSSED WITH PT I CAN ONLY GIVE WHAT THE EDP ORDERED. PT STATES 0.5 MG WONT WORK, ONLY 2MG WILL WORK, THEY NORMALLY GIVE ME TWO , DISCUSSED WITH DR HUTCHINSON. PT REPORTS PAIN WENT FROM 9/10 TO 10/10 FOLLOWING DOSE OF 0.5 DILAUDID AND PT REQUESTING MORE PAIN MED. PT REQUESTING 2MG OF DILAUDID. PER [facility] EDP 0.5 MG DILAUDID ORDERED FOR PT PAIN.
[2019-05-17 08:39] LABS: INR 2.8; Prothrombin Time 28.7 Seconds (11.1-14.7)
--- NOTE | 2019-05-17 09:52 | ADMGEN ---
This patient, Quan Downing, was admitted to 3 [facility] Surg Room 332-01. Patient/family oriented to hospital policies and general routines including ID bracelet, bed and alarms, visiting hours, pain management, procedures, bathroom and other care routines, personal items, smoking policy, room service/diet, and visiting hours. Valuables list has been completed. Information on how to activate the Rapid Response Team has been discussed. Patient/Family are encouraged to report perceived risks to care and to ask questions if they do not understand what they are told or what they should do.
[2019-05-17] MEDS: SODIUM CHLORIDE 0.9% IV 1,000 ML 125 ML IV CONT ×2 (10:17→17:35)
[2019-05-17] MEDS: HYDROMORPHONE HCL 2 MG/ML VIAL IV PUSH ×3 (14:08→22:35)
[2019-05-17] MEDS: FOLIC ACID 1 MG TABLET PO (14:10)
--- NOTE | 2019-05-17 17:10 | PM.IMHP ---
H&P: HPI History of Present Illness Chief complaint: Sickle cell anemia with crisis Narrative: Quan Downing is a 34 year old male. pt known to have sickle cell disease, pt sees Dr Marks, pt has been here recently for sickle cell pain crisis. States his his legs hurt, his back hurts and his arms hurt. Was in the cold thinks the weather triggered his symptoms. Review of Systems Review of Systems: All systems reviewed & are unremarkable except as noted in HPI and below Musculoskeletal: Musculoskeletal: Reports arthralgias Comments: back, legs and arms PMFSH Past Medical History Medical History Acute chest syndrome Chronic narcotic use Chronic pain syndrome History of deep vein thrombosis (DVT) of lower extremity Pneumonia Pulmonary embolism Sickle cell disease, type SC Surgical History Surgical History History of hand surgery 2x on rt fifth finger Family History Family History Grandparent Acute myocardial infarction Sibling Asthma Sibling Asthma Mother Hypertension Social History Social History Social History: Mary Jane Zuniga his mother is a durable power jewelry dipper for healthcare. He is listed as a full code. Smoking status: Never smoker Second hand tobacco smoke exposure: No Alcohol intake: never Substance use: never Substance use type: does not use Additional occupation/education comments: Disabled Gender identity (if verbalized by the patient): Male Spiritual care concerns: No Agree to blood products: Yes Meds Home Medications and Allergies Home Medications Medication Instructions Recorded Confirmed Type folic acid 1 mg PO DAILY 02/16/19 05/17/19 History hydroxyurea [Hydrea] 500 mg PO BID 02/16/19 05/17/19 History ibuprofen 800 mg PO Q6H PRN 02/16/19 05/17/19 History methadone [Dolophine] 10 mg PO BID 02/16/19 05/17/19 History oxycodone 7.5 mg PO Q4-6H PRN 02/16/19 05/17/19 History warfarin [Coumadin] 10 mg PO QPM 02/16/19 05/17/19 History Allergies Allergy/AdvReac Type Severity Reaction Status Date / Time Fish Containing Products Allergy Intermediate Itching Verified 05/17/19 04:31 Vital Signs Vital Signs - 24 hr 05/17/19 04:37 05/17/19 08:23 05/17/19 09:23 Temperature 37.3 C Pulse Rate 96 70 74 Respiratory Rate 12 15 14 Blood Pressure 148/88 H 108/64 124/77 Pulse Oximetry 97 97 96 05/17/19 09:24 05/17/19 09:35 05/17/19 14:00 Temperature 36.3 C L 36.4 C L Pulse Rate 74 86 77 Respiratory Rate 15 20 20 Blood Pressure 124/77 111/76 112/61 Pulse Oximetry 96 95 97 Exam Narrative: Exam Narrative: General: HEENT: EOMI, PERRL, pharyngeal mucosa pink and intact NECK: No JVD, adenopathy, or thyromegaly CHEST: Clear to auscultation. Normal effort. HEART: NL S1/S2, regular, no murmur ABDOMEN: BS+, soft, mild diffuse tenderness, no mass, no bruits EXTREMITIES: No cyanosis, edema, or clubbing NEUROLOGIC: CN intact and symmetric to inspection. MUSCULOSKELETAL: Tone and strength symmetric. tender calves and low back and upper arms PSYCH: Alert. Oriented to person, place, and time. H&P: Results Labs Labs: Short CBC 05/17/19 Range/Units 05:40 WBC 8.6 (4.5-10.0) K/mm3 Hgb 10.8 L (14.0-18.0) g/dL Hct 30.4 L (42.0-52.0) % Plt Count 338 (150-375) k/mm3 BMP 05/17/19 05:40 Sodium 141 Potassium 3.8 Chloride 107 Carbon Dioxide 24 BUN 7 L Creatinine 0.80 Glucose 99 Calcium 8.6 Liver Function 05/17/19 Range/Units 05:40 Total Bilirubin 0.9 (0.2-1.3) mg/dL AST 44 (17-59) U/L ALT 25 (4-50) U/L Alkaline Phosphatase 86 (38-126) U/L Albumin 4.5 (3.5-5.1) g/dL Assessment and Plan Assessment and plan (1) DVT prophylaxis: Code(s): Z29.9 - Encounter for
[2019-05-17] MEDS: HYDROXYUREA (*CHEMO) 500 MG CAPSULE PO (17:36)
[2019-05-17] MEDS: WARFARIN (*PBKC) 10 MG TABLET PO (17:37)
--- NOTE | 2019-05-18 01:37 | CONS_ITS ---
CHANGED TO DRAFT 05/21/19 WORK TYPE CORRECTED FROM DISCHARGE SUMMARY TO CONSULTATION/ORIGINALLY SIGNED 05/18/19 @ 0846 DATE OF DISCHARGE: REASON FOR CONSULTATION: Sickle cell crisis. HISTORY OF PRESENTING ILLNESS: This is a 34-year-old male with history of sickle cell S-C disease along with a diagnosis of recurrent pulmonary embolism and has been on chronic anticoagulation therapy with Coumadin. He came into the hospital today with typical sickle cell crisis episode including diffuse musculoskeletal pain. He denies any fever, chills, and cough. He denies any other signs of infection. He was in the ER 3 days ago for the similar symptoms and was discharged after receiving IV pain medication. I discussed this case with Dr. Julian in the ER today and decided to admit this patient since he came back in with a similar symptom within 3 days. He said he has been taking his home pain medication without any relief. He also said that he has been taking hydroxyurea faithfully. REVIEW OF SYSTEMS: 12-point review of system was reviewed and as above. PAST MEDICAL HISTORY: Sickle cell disease with frequent sickle cell crisis episodes, chronic pain syndrome, history of recurrent pulmonary embolism. PAST SURGICAL HISTORY: Right 5th finger tendon surgery. HOME MEDICATIONS: Reviewed. ALLERGIES: REVIEWED. SOCIAL HISTORY: The patient is and has 2 children with sickle cell trait. He denies any history of smoking and drinking. He is on disability. FAMILY HISTORY: Sickle cell trait in both children. PHYSICAL EXAMINATION: GENERAL: This patient is a well-developed, well-nourished male, in no apparent distress, oriented x3. VITAL SIGNS: As per nursing note. HEENT: Normocephalic, atraumatic. Clear oropharynx. LUNGS: Clear to auscultation bilaterally. CARDIOVASCULAR: Regular rate and rhythm. No murmurs. ABDOMEN: Soft, nontender, nondistended. Bowel sounds are positive. No hepatosplenomegaly. EXTREMITIES: No edema. NEURO EXAM: Grossly intact. LABORATORY DATA: WBC 8.6, hemoglobin 10.8, MCV 89.7, platelets 338,000. Neutrophils 30%, lymphocytes 57%. Reticulocyte count 5.35. INR 2.8. Creatinine 0.8. ASSESSMENT AND PLAN: Sickle cell S-C disease with sickle cell crisis. The patient came into the hospital with typical sickle cell flare-up syndrome including diffuse musculoskeletal pain, unresponsive to his home pain medication including methadone 10 mg twice a day and [place]. I have reviewed the labs and discussed this case with Dr. Julian in the ER. I agree with admitting the patient today and continuation of IV hydration. The patient will also continue hydroxyurea 500 mg twice a day with folic acid 1 mg p.o. daily. He has no symptoms concerning for infection. The patient will continue Dilaudid 2 mg IV every 3-4 hours as needed. We will follow along with you. Hopefully, the patient will be discharged home in the next 2-3 days. Angelina I MT: Becky PEÑA
[2019-05-18] MEDS: SODIUM CHLORIDE 0.9% IV 1,000 ML 125 ML IV CONT ×3 (01:48→18:54)
[2019-05-18] MEDS: HYDROMORPHONE HCL 2 MG/ML VIAL IV PUSH ×7 (02:36→23:51)
[2019-05-18 06:00] VITALS: BP 126/76; PULSE 74; RESP 20; TEMP 36.9; O2SAT 98
[2019-05-18 08:20] LABS: Hemoglobin 10.4 g/dL (14.0-18.0); Mean Corpuscular HGB Conc 35.9 g/dl (32-36); Mean Corpuscular Hemoglobin 32.2 pg (26-34); Mean Corpuscular Volume 89.8 fl (80-100); Mean Platelet Volume 10.2 fl (7.4-10.4); Platelet Count Result 309 k/mm3 (150-375); Red Blood Count 3.23 M/mm3 (4.6-6.20); Red Cell Distribution Width 14.6 % (11.5-14.5); White Blood Count 7.4 K/mm3 (4.5-10.0)
[2019-05-18 08:31] LABS: INR 2.9; Prothrombin Time 29.7 Seconds (11.1-14.7)
[2019-05-18 10:14] LABS: Immature Reticulocyte Fraction 30.9 % (3.0-15.9); Reticulocyte Hemoglobin Conten 32.4 pg (28.2-35.7); Reticulocyte Percent 4.55 % (0.7-4.3); Reticulocytes Absolute 0.15 B/L (32.2-175.7)
[2019-05-18] MEDS: HYDROXYUREA (*CHEMO) 500 MG CAPSULE PO ×2 (10:36→18:54)
[2019-05-18] MEDS: FOLIC ACID 1 MG TABLET PO (10:36)
--- NOTE | 2019-05-18 12:57 | WPDONCPN ---
Progress Note: A/P - Additional Plan Sickle cell SC disease with sickle cell crisis. Left noted. Reticulocyte count is slowly going down. Hemoglobin is stable. Patient remains quite symptomatic. I will increase Dilaudid to 2 mg every 3-4 hours as needed. Continue IV hydration along with hydroxyurea. Continue folic acid 1 mg daily. Recurrent pulmonary embolism. Patient is on Coumadin 10 mg daily. INR is 2.9. No evidence of bleeding. Hopefully discharge in 1-2 days. - Time Spent With Patient Total time spent is greater than 50% in coordination of care (as documented) at patient's floor/unit and/or counseling patient: 15 - 25 minutes Subjective Interval history: Sickle cell crisis Recurrent pulmonary embolism Review of Systems - Review of Systems Patient looks quite uncomfortable and still having musculoskeletal pain. He denies any fevers and chills. Denies any cough. No other new complaints Exam Vital signs: Temp Pulse Resp BP Pulse Ox 36.9 C 74 20 126/76 98 05/18/19 06:00 05/18/19 06:00 05/18/19 06:00 05/18/19 06:00 05/18/19 06:00 Lungs are clear to auscultation bilaterally Cardiovascular regular rate rhythm no murmurs Abdomen soft nontender nondistended Extremities no edema PN: Objective Data - Labs CBC & Chem 7: 05/18/19 08:12 05/17/19 05:40 Labs: Laboratory Results - last 24 hr 05/18/19 05/18/19 05/18/19 08:12 08:12 08:12 WBC 7.4 RBC 3.23 L Hgb 10.4 L Hct 29.0 L MCV 89.8 MCH 32.2 MCHC 35.9 RDW 14.6 H Plt Count 309 MPV 10.2 Absolute Retic 0.15 L Percent Retic 4.55 H Immature Retic Fraction 30.9 H Retic Hgb Content 32.4 PT 29.7 H INR 2.9
[2019-05-18 14:46] VITALS: BP 123/66; PULSE 72; RESP 16; TEMP 37.2; O2SAT 97
--- NOTE | 2019-05-18 17:34 | PM.IMPN ---
Progress Note: A&P Assessment and Plan (1) DVT prophylaxis: Code(s): Z29.9 - Encounter for prophylactic measures, unspecified Status: Acute Assessment and Plan: pt is on coumadin, continue to monitor inr (2) Chronic pain syndrome: Code(s): G89.4 - Chronic pain syndrome Status: Chronic Assessment and Plan: Patient is a 34 year male with history of sickle cell disease, pulmonary emboli DVT chronically on Coumadin, presented emergency department with a complaint of upper and lower extremity pain patient had been taking home regimen without relief also been taking hydroxyurea, patient is seen by oncologist recommended to continue IV hydration and pain management today patient still complains of upper and lower extremity pain denies any chest pain fever or chills, his hemoglobin is stable his retic count is low, patient with sickle cell crisis will continue patient's home regimen with methadone and oxycodone will add hydromorphone as needed for breakthrough pain, will continue monitor patient H&H and retic count (3) Chronic narcotic use: Code(s): F11.90 - Opioid use, unspecified, uncomplicated Status: Chronic Assessment and Plan: pt is on methadone for chronic pain (4) Pulmonary embolism: Code(s): I26.99 - Other pulmonary embolism without acute cor pulmonale Status: Chronic Assessment and Plan: pt is on coumadin (5) Sickle cell disease, type SC: Code(s): D57.20 - Sickle-cell/Hb-C disease without crisis Status: Chronic Assessment and Plan: pt seen Constance for sickle cell disease known diagnosis continue to monitor cbc. continue folic acid, iv fluids and iv dilaudid for pain crisis, pt has been here before Subjective Date/time seen: 05/18/19 17:34 Patient is a 34 year male with history of sickle cell disease, pulmonary emboli DVT chronically on Coumadin, presented emergency department with a complaint of upper and lower extremity pain patient had been taking home regimen without relief also been taking hydroxyurea, patient is seen by oncologist recommended to continue IV hydration and pain management today patient still complains of upper and lower extremity pain denies any chest pain fever or chills, his hemoglobin is stable his retic count is low Review of Systems Review of Systems: All systems reviewed & are unremarkable except as noted in HPI and below Musculoskeletal: Musculoskeletal: Reports arthralgias Exam Const: General: comfortable and no acute distress HENMT: General nose exam: Normal nares present Mouth: Yes moist mucous membranes Eyes: General: appearance normal, both eyes and all related structures Sclera: sclerae normal Neck: Neck: supple Resp: Effort & Inspection: normal respiratory effort Auscultation: clear to auscultation bilaterally Cardio: Rate: regular rate Rhythm: regular rhythm GI: Auscultation: normal bowel sounds Skin: General skin exam: normal color and no rashes or lesions noted Neuro: Speech: normal speech Sensory Exam: normal sensation Extrem: General: normal to inspection Psych: Mental Status: mental status grossly normal Affect: normal affect Objective Data Vital Signs Vital Signs: Vital Signs - 24 hr 05/17/19 21:41 05/18/19 06:00 05/18/19 14:46 Temperature 98.1 F 98.4 F 98.9 F Pulse Rate 80 74 72 Respiratory Rate 20 20 16 Blood Pressure 110/65 126/76 123/66 Pulse Oximetry 98 98 97 Intake/Output Intake/Output: Intake & Output 05/15/19 05/16/19 05/17/19 05/18/19 23:59 23:59 23:59 23:59 Intake Total 3510 2670 Output Total 1800 1350 Balance 1710 1320 Meds/Results Medications: Active Medications Generic Name Dose Route Start Last Admin Trade Name Luis PRN Reason Stop Dose Admin Folic Acid 1 mg 05/18/19 09:00 05/18/19 10:36 Folic Acid PO 1 mg DAILY CHRISTOPHER Administration Hydromorphone HCl 2 mg 05/18/19 12:5
[2019-05-18] MEDS: WARFARIN (*PBKC) 10 MG TABLET PO (18:54)
[2019-05-18 21:49] VITALS: BP 109/68; PULSE 79; RESP 14; TEMP 37.1; O2SAT 98
[2019-05-19] MEDS: SODIUM CHLORIDE 0.9% IV 1,000 ML 125 ML IV CONT ×2 (02:52→13:48)
[2019-05-19] MEDS: HYDROMORPHONE HCL 2 MG/ML VIAL IV PUSH ×3 (02:55→17:51)
[2019-05-19 05:26] VITALS: BP 117/53; PULSE 71; RESP 16; TEMP 37.2; O2SAT 97
[2019-05-19 06:23] LABS: Basophils Absolute Auto 0.1 K/mm3 (0.0-0.1); Basophils Percent Auto 0.7 % (0.2-1.2); Eosinophils Absolute Auto 0.5 K/mm3 (0-0.3); Eosinophils Percent Auto 5.6 % (0-4.4); Hematocrit 29.8 % (42.0-52.0); Hemoglobin 10.7 g/dL (14.0-18.0); Immature Granulocyte Absolute 0.03 K/mm3 (0.00-0.031); Immature Granulocyte Percent A 0.3 % (0-0.5); Lymphocytes Absolute Auto 4.37 K/mm3 (0.9-3.2); Lymphocytes Percent Auto 46.8 % (18.3-44.2); Mean Corpuscular HGB Conc 35.9 g/dl (32-36); Mean Corpuscular Hemoglobin 32.6 pg (26-34); Mean Corpuscular Volume 90.9 fl (80-100); Mean Platelet Volume 10.5 fl (7.4-10.4); Monocytes Absolute Auto 0.7 K/mm3 (0.1-0.6); Monocytes Percent Auto 7.7 % (2.6-8.5); Neutrophils Absolute Auto 3.6 K/mm3 (1.3-6.7); Neutrophils Percent Auto 38.9 % (45.5-73.1); Nucleated Red Blood Cells Perc 0.2 % (0.0-0.2); Platelet Count Result 298 k/mm3 (150-375); Red Blood Count 3.28 M/mm3 (4.6-6.20); Red Cell Distribution Width 14.4 % (11.5-14.5); White Blood Count 9.3 K/mm3 (4.5-10.0)
[2019-05-19 06:32] LABS: INR 2.9; Prothrombin Time 29.9 Seconds (11.1-14.7)
[2019-05-19 06:36] LABS: Alanine Aminotransferase 23 U/L (4-50); Albumin Level 3.9 g/dL (3.5-5.1); Alkaline Phosphatase 81 U/L (38-126); Aspartate Amino Transferase 31 U/L (17-59); Bilirubin,Total 0.6 mg/dL (0.2-1.3); Blood Urea Nitrogen 6 mg/dL (9-20); Calcium 8.5 mg/dL (8.4-10.2); Carbon Dioxide 23 mmol/L (22-30); Chloride 105 mmol/L (98-107); Estimated CRCL calculation 176 ml/min; Estimated Glomerular Filt Rate > 60; Glucose 105 mg/dL (75-110); Potassium 3.9 mmol/L (3.4-5.0); Sodium 138 mmol/L (137-145)
[2019-05-19 08:00] VITALS: PULSE 71; RESP 16; O2SAT 97
--- NOTE | 2019-05-19 13:54 | PM.IMPN ---
Progress Note: A&P Assessment and Plan (1) DVT prophylaxis: Code(s): Z29.9 - Encounter for prophylactic measures, unspecified Status: Acute Assessment and Plan: pt is on coumadin, continue to monitor inr (2) Chronic pain syndrome: Code(s): G89.4 - Chronic pain syndrome Status: Chronic Assessment and Plan: Patient is a 34 year male with history of sickle cell disease, pulmonary emboli DVT chronically on Coumadin, presented emergency department with a complaint of upper and lower extremity pain patient had been taking home regimen without relief also been taking hydroxyurea, patient is seen by oncologist recommended to continue IV hydration and pain management today patient still complains of upper and lower extremity pain denies any chest pain fever or chills, his hemoglobin is stable his retic count is low, patient with sickle cell crisis will continue patient's home regimen with methadone and oxycodone will add hydromorphone as needed for breakthrough pain, today patient is pain is little better will decrease his pain medication to Dilaudid 1 mg every 4-6 hours as needed, will continue monitor patient H&H and retic count patient be seen by animal cruelty investigator (3) Chronic narcotic use: Code(s): F11.90 - Opioid use, unspecified, uncomplicated Status: Chronic Assessment and Plan: pt is on methadone for chronic pain (4) Pulmonary embolism: Code(s): I26.99 - Other pulmonary embolism without acute cor pulmonale Status: Chronic Assessment and Plan: pt is on coumadin INR today is 2.9 (5) Sickle cell disease, type SC: Code(s): D57.20 - Sickle-cell/Hb-C disease without crisis Status: Chronic Assessment and Plan: pt seen Constance for sickle cell disease known diagnosis continue to monitor cbc. continue folic acid, iv fluids and iv dilaudid for pain crisis, pt has been here before Subjective Date/time seen: 05/19/19 13:54 Patient is a 34 year male with history of sickle cell disease, pulmonary emboli DVT chronically on Coumadin, presented emergency department with a complaint of upper and lower extremity pain patient had been taking home regimen without relief also been taking hydroxyurea, patient is seen by oncologist recommended to continue IV hydration and pain management today patient still complains of upper and lower extremity pain denies any chest pain fever or chills, his hemoglobin is stable his retic count is low, patient with sickle cell crisis will continue patient's home regimen with methadone and oxycodone will add hydromorphone as needed for breakthrough pain, today patient is pain is little better will decrease his pain medication to Dilaudid 1 mg every 4-6 hours as needed, will continue monitor patient H&H and retic count patient be seen by animal cruelty investigator Review of Systems Review of Systems: All systems reviewed & are unremarkable except as noted in HPI and below Musculoskeletal: Musculoskeletal: Reports arthralgias Exam Narrative: Exam Narrative: Patient appears healthy Const: General: comfortable and no acute distress HENMT: General nose exam: Normal nares present Mouth: Yes moist mucous membranes Eyes: General: appearance normal, both eyes and all related structures Sclera: sclerae normal Neck: Neck: supple Resp: Effort & Inspection: normal respiratory effort Auscultation: clear to auscultation bilaterally Cardio: Rate: regular rate Rhythm: regular rhythm GI: Auscultation: normal bowel sounds Skin: General skin exam: normal color and no rashes or lesions noted Neuro: Speech: normal speech Sensory Exam: normal sensation Extrem: Other: There is no obvious deformity apparent lower extremity tender to palpation Psych: Mental Status: mental status grossly normal Affect: normal affect Objective Data Vital Signs Vital Signs: Vital Signs - 24 hr 05/18/19 14:46 05/18/19 21:49 05/19/19
[2019-05-19] MEDS: FOLIC ACID 1 MG TABLET PO (13:59)
[2019-05-19 14:00] VITALS: BP 121/70; PULSE 64; RESP 16; TEMP 36.9; O2SAT 97
[2019-05-19] MEDS: HYDROXYUREA (*CHEMO) 500 MG CAPSULE PO (14:00)
--- NOTE | 2019-05-19 14:27 | PM.DS ---
DS: Diagnosis Admitting Diagnosis Admitting Diagnosis: Encounter for prophylactic measures, unspecified Discharge Diagnosis (1) DVT prophylaxis: Code(s): Z29.9 - Encounter for prophylactic measures, unspecified Status: Acute Assessment and Plan: pt is on coumadin, continue to monitor inr (2) Chronic pain syndrome: Code(s): G89.4 - Chronic pain syndrome Status: Chronic Assessment and Plan: Patient is a 34 year male with history of sickle cell disease, pulmonary emboli DVT chronically on Coumadin, presented emergency department with a complaint of upper and lower extremity pain patient had been taking home regimen without relief also been taking hydroxyurea, patient is seen by oncologist recommended to continue IV hydration and pain management today patient still complains of upper and lower extremity pain denies any chest pain fever or chills, his hemoglobin is stable his retic count is low, patient with sickle cell crisis will continue patient's home regimen with methadone and oxycodone will add hydromorphone as needed for breakthrough pain, today patient is pain is little better will decrease his pain medication to Dilaudid 1 mg every 4-6 hours as needed, will continue monitor patient H&H and retic count patient be seen by paint grinder (3) Chronic narcotic use: Code(s): F11.90 - Opioid use, unspecified, uncomplicated Status: Chronic Assessment and Plan: pt is on methadone for chronic pain (4) Pulmonary embolism: Code(s): I26.99 - Other pulmonary embolism without acute cor pulmonale Status: Chronic Assessment and Plan: pt is on coumadin INR today is 2.9 (5) Sickle cell disease, type SC: Code(s): D57.20 - Sickle-cell/Hb-C disease without crisis Status: Chronic Assessment and Plan: pt seen Constance for sickle cell disease known diagnosis continue to monitor cbc. continue folic acid, iv fluids and iv dilaudid for pain crisis, pt has been here before DS: Summary Hospital Course Reason for hospitalization: Quan Downing is a 34 year old male. pt known to have sickle cell disease, pt sees Dr Marks, pt has been here recently for sickle cell pain crisis. States his his legs hurt, his back hurts and his arms hurt. Was in the cold thinks the weather triggered his symptoms. Hospital Course: Patient with history of sickle cell anemia presented with a or describe basis sickle cell crisis and body aches patient was started on IV fluids be continued is hydroxyurea pain management he remains clinically stable, his retic count is low, is hemoglobin stable symptoms have improved, seen by paint grinder patient is clinically stable, will resume his home oral pain med and with IV pain medication, today patient is clinically stable will going discharge the patient home to follow-up with his paint grinder as soon as possible. Status at Discharge Cognitive/behavioral status at discharge: Back to basesline Functional status at discharge: independent ambulation Overall status at discharge: patient is back to baseline Time Spent with Patient Time attestation: Total time spent providing and/or coordinating discharge services: Patient was seen and examined at the time of the discharge Condition at discharge is stable Code status: Full code. Time spent preparing discharge summary, discharge medications, discussing discharge planning with rn case manager hospice and patient is 35 minutes. Exam Narrative: Exam Narrative: Patient appears healthy Const: General: comfortable and no acute distress HENMT: General nose exam: Normal nares present Mouth: Yes moist mucous membranes Eyes: General: appearance normal, both eyes and all related structures Sclera: sclerae normal Neck: Neck: supple Resp: Effort & Inspection: normal respiratory effort Auscultation: clear to auscultation bilaterally Cardio: Rate: regular rate Rhythm: regular rhythm GI: Auscultation
[2019-05-19] MEDS: WARFARIN (*PBKC) 10 MG TABLET PO (17:58)
--- NOTE | 2019-05-19 18:13 | P.PNONC_ITS ---
Progress Note: A/P - Additional Plan Sickle cell disease with crises. labs stable. Pain under better control. ok to discharge today. Pulmonary embolism. Continue coumadin. - Time Spent With Patient Total time spent is greater than 50% in coordination of care (as documented) at patient's floor/unit and/or counseling patient: 15 - 25 minutes Subjective Interval history: Sickle cell crisis Recurrent pulmonary embolism Review of Systems - Review of Systems Patient looks better today with minimal lower ext pain. Cassandra any fever and chills. Exam Vital signs: Floyd Lan. Assessment of coma and impaired consciousness. A practical scale. Lancet 1974; 2:81-4. [email or web address] Narrative: Lungs CTA bilat Cv regular rate and rythum Abd soft NT ND Ext No edema PN: Objective Data - Labs CBC & Chem 7: 05/19/19 06:05 05/19/19 06:05 Labs: Laboratory Results - last 24 hr 05/19/19 05/19/19 05/19/19 06:05 06:05 06:05 WBC 9.3 RBC 3.28 L Hgb 10.7 L Hct 29.8 L MCV 90.9 MCH 32.6 MCHC 35.9 RDW 14.4 Plt Count 298 MPV 10.5 H Immature Gran % (Auto) 0.3 Neut % (Auto) 38.9 L Lymph % (Auto) 46.8 H [place] % (Auto) 7.7 Eos % (Auto) 5.6 H Baso % (Auto) 0.7 Lymph # (Auto) 4.37 H [place] # (Auto) 0.7 H Eos # (Auto) 0.5 H Baso # (Auto) 0.1 Abs Immat Gran (auto) 0.03 Absolute Neuts (auto) 3.6 Absolute Nucleated RBC 0.0 Nucleated RBC % 0.2 PT 29.9 H INR 2.9 Sodium 138 Potassium 3.9 Chloride 105 Carbon Dioxide 23 BUN 6 L Creatinine 0.60 L Estim Creat Clear Calc 176 Estimated GFR > 60 Glucose 105 Calcium 8.5 Total Bilirubin 0.6 AST 31 ALT 23 Alkaline Phosphatase 81 Total Protein 7.0 Albumin 3.9
== END 2019-05-19 19:10 | disposition home or self-care (01) | DRG 662 ==
LOC: ANHED 09:07 → ANH3MEDSUR 09:10
PROVIDERS: Emergency Medicine; Admitting Provider Family Medicine; Emergency Provider Emergency Medicine; PCP Internal Medicine Hematology & Oncology; Visit Provider Family Medicine
DX: D57.00 Hb-SS disease with crisis, unspecified (principal); G89.4 Chronic pain syndrome; Z79.891 Long term (current) use of opiate analgesic; Z86.718 Personal history of other venous thrombosis and embolism; Z86.711 Personal history of pulmonary embolism; Z79.01 Long term (current) use of anticoagulants
CPT/HCPCS: 36415; 80053; 85025; 85027; 85046; 85055; 85610; 96361; 96374; 96375; 96376; 99285; A9270; G0378; G0379; J1170; J1885; J2405; J7030

== ENCOUNTER 2019-06-09 10:42 | Emergency (ER) | payer OTHER, SELFPAY ==
--- NOTE | ~2019-06-09 | XR_ITS ---
EXAMINATION: XR chest 2V DATE: 06/09/2019 12:06 INDICATION: Sickle cell crisis TECHNIQUE: AP and lateral views of the chest are obtained. COMPARISON: 05/15/2019 FINDINGS: The lungs are free of acute opacities. Chronic scarring is again noted in the lung bases. T here is no pleural effusion or pneumothorax. The cardiomediastinal silhouette is normal. Mild changes in the thoracic and upper lumbar vertebral bodies consistent with sickle cell disease. IMPRESSION: 1. No acute cardiopulmonary abnormality. Reviewed, dictated and finalized at location A. TMAN
[2019-06-09 10:46] VITALS: BP 126/75; PULSE 92; RESP 18; TEMP 37; O2SAT 96
--- NOTE | 2019-06-09 11:32 | ED.GENADULT ---
HPI - General Adult General Chief complaint: Unspecified Stated complaint: sickle cell pain Time Seen by Provider: 06/09/19 11:13 Source: patient and RN notes reviewed Mode of arrival: ambulatory Limitations: no limitations History of Present Illness HPI narrative: A 34 y/o male, with a hx of sickle cell, presents to the ED with constant generalized pain beginning yesterday. He states that he has taken his Methadone and Percect but denies them alleviating his pain. He reports that his pain is most severe in his back and ribs. He notes that his sickle cell seems to flare up more in the winter. He also notes that his Computing Architect is Dr. Marks. He denies any fevers, chills, cough, SOB, N/V/D, or ABD pain. MD complaint: Generalized pain Onset (ago): day(s) (yesterday) Location: back (and ribs) Radiation: other (generalized) Pain Consistency: constant Relieving factors: none Associated symptoms: denies other symptoms Treatments prior to arrival: other (Methadone and Percect) Related Data Home Medications Medication Instructions Recorded Confirmed folic acid 1 mg PO DAILY 02/16/19 05/17/19 hydroxyurea [Hydrea] 500 mg PO BID 02/16/19 05/17/19 ibuprofen 800 mg PO Q6H PRN 02/16/19 05/17/19 methadone [Dolophine] 10 mg PO BID 02/16/19 05/17/19 oxycodone 7.5 mg PO Q4-6H PRN 02/16/19 05/17/19 warfarin [Coumadin] 10 mg PO QPM 02/16/19 05/17/19 Allergies Allergy/AdvReac Type Severity Reaction Status Date / Time Fish Containing Products Allergy Intermediate Itching Verified 06/09/19 12:32 Review of Systems Review of Systems: All systems reviewed & are unremarkable except as noted in HPI and below Constitutional: Constitutional: Denies chills and Denies fever(s) Respiratory: Respiratory: Denies cough and Denies dyspnea Gastrointestinal: Gastrointestinal: Denies abdominal pain, Denies diarrhea, Denies nausea and Denies vomiting Musculoskeletal: Musculoskeletal: Reports myalgias (worse to his back and ribs) PMFSH Past Medical History Medical History Acute chest syndrome Chronic narcotic use Chronic pain syndrome History of deep vein thrombosis (DVT) of lower extremity Pneumonia Pulmonary embolism Sickle cell disease, type SC Surgical History Surgical History History of hand surgery 2x on rt fifth finger Family History Family History Grandparent Acute myocardial infarction Sibling Asthma Sibling Asthma Mother Hypertension Social History Social History Social History: Mary Jane Zuniga his mother is a durable power state attorney for healthcare. He is listed as a full code. Smoking status: Never smoker Second hand tobacco smoke exposure: No Alcohol intake: never Substance use: never Substance use type: does not use Additional occupation/education comments: Disabled Gender identity (if verbalized by the patient): Male Spiritual care concerns: No Agree to blood products: Yes Exam Narrative: Exam Narrative: GENERAL: Uncomfortable-appearing, well-nourished, and in no acute distress. HEAD: Normocephalic, atraumatic. ENT: Mucous membranes moist. CHEST: Clear to auscultation. No respiratory distress. HEART: Regular rate and rhythm. Normal peripheral pulses. ABDOMEN: Soft, nontender, nondistended. EXTREMITIES: Normal range of motion. No edema. NEURO: Alert and oriented x3. PSYCH: Normal mood and affect. Course Course Emergency Course: Patient has had Dilaudid 2 mg x 2. Discussed admission versus discharge, patient requested more medicine before making decision, discussed that I would not do that he needed to make a decision now. He is opted to be discharged home. He then requested more IV narcotic therapy before going home, that will not occur. Vital Signs Vital signs: Vital Signs Temperature 98.6 F
[2019-06-09] MEDS: SODIUM CHLORIDE 0.9% IV 1,000 ML 999 ML IV CONT (11:58)
[2019-06-09] MEDS: HYDROMORPHONE HCL 1 MG/ML INJ 2 MG IV PUSH ×2 (12:00→13:51)
[2019-06-09] MEDS: ONDANSETRON INJ 4 MG/2 ML VIAL IV PUSH (12:01)
[2019-06-09 12:03] LABS: Basophils Absolute Auto 0.1 K/mm3 (0.0-0.1); Basophils Percent Auto 0.8 % (0.2-1.2); Eosinophils Absolute Auto 0.2 K/mm3 (0-0.3); Hematocrit 29.1 % (42.0-52.0); Hemoglobin 10.1 g/dL (14.0-18.0); Immature Granulocyte Absolute 0.01 K/mm3 (0.00-0.031); Immature Granulocyte Percent A 0.2 % (0-0.5); Immature Reticulocyte Fraction 29.5 % (3.0-15.9); Lymphocytes Absolute Auto 3.27 K/mm3 (0.9-3.2); Lymphocytes Percent Auto 52.1 % (18.3-44.2); Mean Corpuscular HGB Conc 34.7 g/dl (32-36); Mean Corpuscular Hemoglobin 32.4 pg (26-34); Mean Corpuscular Volume 93.3 fl (80-100); Mean Platelet Volume 10.4 fl (7.4-10.4); Monocytes Absolute Auto 0.5 K/mm3 (0.1-0.6); Monocytes Percent Auto 8.3 % (2.6-8.5); Neutrophils Absolute Auto 2.2 K/mm3 (1.3-6.7); Neutrophils Percent Auto 35.6 % (45.5-73.1); Platelet Count Result 348 k/mm3 (150-375); Red Blood Count 3.12 M/mm3 (4.6-6.20); Red Cell Distribution Width 15.9 % (11.5-14.5); Reticulocyte Hemoglobin Conten 33.9 pg (28.2-35.7); Reticulocyte Percent 5.33 % (0.7-4.3); Reticulocytes Absolute 0.17 B/L (32.2-175.7); White Blood Count 6.3 K/mm3 (4.5-10.0)
[2019-06-09 12:04] VITALS: BP 125/87; PULSE 82; RESP 15; O2SAT 98
[2019-06-09 12:07] LABS: Platelet Estimate Adequate (Adequate)
[2019-06-09 12:08] LABS: Polychromasia 1+ (NORMAL); Sickle Cells 2+ (NORMAL); Target Cells 2+ (NORMAL)
[2019-06-09 12:16] LABS: Blood Urea Nitrogen 5 mg/dL (9-20); Calcium 8.7 mg/dL (8.4-10.2); Carbon Dioxide 23 mmol/L (22-30); Chloride 104 mmol/L (98-107); Estimated CRCL calculation 149 ml/min; Estimated Glomerular Filt Rate > 60; Glucose 113 mg/dL (75-110); Lactate Dehydrogenase 790 U/L (313-618); Potassium 4.2 mmol/L (3.4-5.0); Sodium 141 mmol/L (137-145)
[2019-06-09 14:03] VITALS: BP 110/68; PULSE 79; RESP 15; O2SAT 99
[2019-06-09 15:10] VITALS: BP 124/87; PULSE 72; RESP 12; O2SAT 99
== END 2019-06-09 15:10 | disposition home or self-care (01) ==
PROVIDERS: Emergency Provider Emergency Medicine; PCP Internal Medicine Hematology & Oncology
DX: D57.219 Sickle-cell/Hb-C disease with crisis, unspecified (principal); Z79.01 Long term (current) use of anticoagulants; Z86.718 Personal history of other venous thrombosis and embolism
CPT/HCPCS: 36415; 71046; 80048; 83615; 85025; 85046; 96361; 96374; 96375; 96376; 99284; J1170; J2405; J7030

== ENCOUNTER 2019-06-11 13:30 | Inpatient (IN) | payer OTHER, SELFPAY ==
--- NOTE | ~2019-06-11 | XR_ITS ---
EXAMINATION: XR chest 2V DATE: 06/11/2019 17:22 INDICATION: Cough, sickle cell TECHNIQUE: PA and lateral views of the chest are obtained. COMPARISON: 06/09/2019 FINDINGS: Chronic scarring is again noted in the lung bases. The lungs are free of acute opacities. T here is no pleural effusion or pneumothorax. The cardiomediastinal silhouette is normal. Changes in t horacic and upper lumbar vertebral bodies are consistent with history of sickle cell disease. IMPRESSION: 1. No acute cardiopulmonary abnormality. 2. Sequela of sickle cell disease. Reviewed, dictated and finalized at location A. AL DRILL PRESS SET UP OPERATOR
[2019-06-11 13:57] VITALS: BP 132/82; PULSE 95; RESP 19; TEMP 36.5; O2SAT 100
[2019-06-11 14:07] LABS: Basophils Absolute Auto 0.1 K/mm3 (0.0-0.1); Basophils Percent Auto 0.6 % (0.2-1.2); Eosinophils Absolute Auto 0.1 K/mm3 (0-0.3); Eosinophils Percent Auto 1.7 % (0-4.4); Hematocrit 31.3 % (42.0-52.0); Hemoglobin 11.1 g/dL (14.0-18.0); Immature Granulocyte Absolute 0.01 K/mm3 (0.00-0.031); Immature Granulocyte Percent A 0.1 % (0-0.5); Lymphocytes Percent Auto 53.2 % (18.3-44.2); Mean Corpuscular HGB Conc 35.5 g/dl (32-36); Mean Corpuscular Hemoglobin 33.1 pg (26-34); Mean Corpuscular Volume 93.4 fl (80-100); Mean Platelet Volume 10.2 fl (7.4-10.4); Monocytes Absolute Auto 0.5 K/mm3 (0.1-0.6); Monocytes Percent Auto 6.4 % (2.6-8.5); Neutrophils Absolute Auto 2.9 K/mm3 (1.3-6.7); Nucleated Red Blood Cells Perc 0.5 % (0.0-0.2); Platelet Count Result 332 k/mm3 (150-375); Red Blood Count 3.35 M/mm3 (4.6-6.20); Red Cell Distribution Width 15.6 % (11.5-14.5); Reticulocyte Hemoglobin Conten 36.2 pg (28.2-35.7); Reticulocyte Percent 4.09 % (0.7-4.3); Reticulocytes Absolute 0.14 B/L (32.2-175.7); White Blood Count 7.7 K/mm3 (4.5-10.0)
[2019-06-11 14:11] LABS: Platelet Estimate Adequate (Adequate)
[2019-06-11 14:12] LABS: Anisocytosis 2+ (NORMAL); Polychromasia 1+ (NORMAL); Sickle Cells 1+ (NORMAL); Stomatocytes 2+ (NORMAL); Target Cells 2+ (NORMAL)
[2019-06-11 14:22] LABS: Alanine Aminotransferase 21 U/L (4-50); Albumin Level 4.8 g/dL (3.5-5.1); Alkaline Phosphatase 98 U/L (38-126); Aspartate Amino Transferase 36 U/L (17-59); Bilirubin,Total 1.2 mg/dL (0.2-1.3); Blood Urea Nitrogen 5 mg/dL (9-20); Calcium 8.9 mg/dL (8.4-10.2); Carbon Dioxide 25 mmol/L (22-30); Chloride 102 mmol/L (98-107); Estimated Glomerular Filt Rate > 60; Glucose 105 mg/dL (75-110); Lactate Dehydrogenase 801 U/L (313-618); Sodium 142 mmol/L (137-145)
[2019-06-11 16:11] VITALS: RESP 12; O2SAT 96
--- NOTE | 2019-06-11 16:33 | ED.GENADULT ---
HPI - General Adult General Chief complaint: Unspecified Stated complaint: sickle cell crisis Time Seen by Provider: 06/11/19 16:47 Related Data Home Medications Medication Instructions Recorded Confirmed folic acid 1 mg PO DAILY 02/16/19 05/17/19 hydroxyurea [Hydrea] 500 mg PO BID 02/16/19 05/17/19 ibuprofen 800 mg PO Q6H PRN 02/16/19 05/17/19 methadone [Dolophine] 10 mg PO BID 02/16/19 05/17/19 oxycodone 7.5 mg PO Q4-6H PRN 02/16/19 05/17/19 warfarin [Coumadin] 10 mg PO QPM 02/16/19 05/17/19 Allergies Allergy/AdvReac Type Severity Reaction Status Date / Time Fish Containing Products Allergy Intermediate Itching Verified 06/09/19 12:32 [facility] Social History Social History Social History: Mary Jane Zuniga his mother is a durable power energy attorney for healthcare. He is listed as a full code. Smoking status: Never smoker Second hand tobacco smoke exposure: No Alcohol intake: never Substance use: never Substance use type: does not use Additional occupation/education comments: Disabled Gender identity (if verbalized by the patient): Male Spiritual care concerns: No Agree to blood products: Yes Course Vital Signs Vital signs: Vital Signs Temperature 97.7 F 06/11/19 13:57 Pulse Rate 95 06/11/19 13:57 Respiratory Rate 06/11/19 13:57 Blood Pressure 132/82 06/11/19 13:57 Pulse Oximetry 100 06/11/19 13:57 Temperature 97.7 F 06/11/19 13:57 Pulse Rate 95 06/11/19 13:57 Respiratory Rate 06/11/19 16:11 Blood Pressure 132/82 06/11/19 13:57 Pulse Oximetry 96 06/11/19 16:11 Medical Decision Making Vital Signs Vital Signs: Vital Signs Temperature 97.7 F 06/11/19 13:57 Pulse Rate 95 06/11/19 13:57 Respiratory Rate 06/11/19 13:57 Blood Pressure 132/82 06/11/19 13:57 Pulse Oximetry 100 06/11/19 13:57 Temperature 97.7 F 06/11/19 13:57 Pulse Rate 95 06/11/19 13:57 Respiratory Rate 12 06/11/19 16:11 Blood Pressure 132/82 06/11/19 13:57 Pulse Oximetry 96 06/11/19 16:11 Lab Data Result diagrams: 06/11/19 14:01 06/11/19 14:01 Labs: Lab Results 06/11/19 06/11/19 Range/Units 14:01 14:01 WBC 7.7 (4.5-10.0) K/mm3 RBC 3.35 L (4.6-6.20) M/mm3 Hgb 11.1 L (14.0-18.0) g/dL Hct 31.3 L (42.0-52.0) % MCV 93.4 (80-100) fl MCH 33.1 (26-34) pg MCHC 35.5 (32-36) g/dl RDW 15.6 H (11.5-14.5) % Plt Count 332 (150-375) k/mm3 MPV 10.2 (7.4-10.4) fl Immature Gran % (Auto) 0.1 (0-0.5) % Neut % (Auto) 38.0 L (45.5-73.1) % Lymph % (Auto) 53.2 H (18.3-44.2) % [place] % (Auto) 6.4 (2.6-8.5) % Eos % (Auto) 1.7 (0-4.4) % Baso % (Auto) 0.6 (0.2-1.2) % Lymph # (Auto) 4.10 H (0.9-3.2) K/mm3 [place] # (Auto) 0.5 (0.1-0.6) K/mm3 Eos # (Auto) 0.1 (0-0.3) K/mm3 Baso # (Auto) 0.1 (0.0-0.1) K/mm3 Abs Immat Gran (auto) 0.01 (0.00-0.031) K/mm3 Absolute Neuts (auto) 2.9 (1.3-6.7) K/mm3 Absolute Nucleated RBC 0.0 (0.0-0.012) K/mm3 Nucleated RBC % 0.5 H (0.0-0.2) % Platelet Estimate Adequate (Adequate) Polychromasia 1+ (NORMAL) Anisocytosis 2+ (NORMAL) Sickle Cells 1+ (NORMAL) Target Cells 2+ (NORMAL) Stomatocytes 2+ (NORMAL) Absolute Retic 0.14 L (32.2-175.7) B/L Percent Retic 4.09 (0.7-4.3) % Immature Retic Fraction 34.0 H (3.0-15.9) % Retic Hgb Content 36.2 H (28.2-35.7) pg Sodium 142 (137-145) mmol/L Potassium 4.0 (3.4-5.0) mmol/L Chloride 102 (98-107) mmol/L Carbon Dioxide 25 (22-30) mmol/L BUN 5 L (9-20) mg/dL Creatinine 0.90 (0.7-1.3) mg/dL Estim Creat Clear Calc Not Reportable Estimated GFR > 60 (59 - ) Glucose 105 (75-110) mg/dL Calcium 8.9 (8.4-10.2) mg/dL Total Bilirubin 1.2 (0.2-1.3) mg/dL AST 36 (17-59) U/L ALT 21 (4-50) U/L Alkaline Phosphatase 98 (38-126) U/L Lactate De
--- NOTE | 2019-06-11 17:31 | ECG_ITS ---
Measurements Intervals [place] Rate: 81 P: 3 FL: 184 QRS: 12 QRSD: 91 T: -2 QT: 364 QTc: 425 Interpretive Statements SINUS RHYTHM NONSPECIFIC T-WAVE ABNORMALITY- ANT/INF LEADS BORDERLINE ECG Electronically Signed On 06-11-2019 20:03:52 CARDIAC CATHETERIZATION TECHNOLOGIST by Ricky Modi D.O.
--- NOTE | 2019-06-11 17:40 | ED.GENADULT ---
HPI - General Adult General Chief complaint: Unspecified Stated complaint: sickle cell crisis Time Seen by Provider: 06/11/19 16:47 Source: patient and old records reviewed Mode of arrival: ambulatory Limitations: no limitations History of Present Illness HPI narrative: Patient is a 34-year-old male with sickle cell disease who has been compliant with medications presenting with pain to the upper back lower back bilateral ribs and pelvis consistent with his occurrences in the past was seen here recently given medications and discharged from the emergency department but notes that he is continued to have pain patient on arrival to emergency department is resting comfortably in the room in no distress. Patient denies any recent illness dyspnea vomiting diarrhea Related Data Home Medications Medication Instructions Recorded Confirmed folic acid 1 mg PO DAILY 02/16/19 05/17/19 hydroxyurea [Hydrea] 500 mg PO BID 02/16/19 05/17/19 ibuprofen 800 mg PO Q6H PRN 02/16/19 05/17/19 methadone [Dolophine] 10 mg PO BID 02/16/19 05/17/19 oxycodone 7.5 mg PO Q4-6H PRN 02/16/19 05/17/19 warfarin [Coumadin] 10 mg PO QPM 02/16/19 05/17/19 Allergies Allergy/AdvReac Type Severity Reaction Status Date / Time Fish Containing Products Allergy Intermediate Itching Verified 06/09/19 12:32 Review of Systems Review of Systems: All systems reviewed & are unremarkable except as noted in HPI and below PMFSH Past Medical History Medical History Acute chest syndrome Chronic narcotic use Chronic pain syndrome History of deep vein thrombosis (DVT) of lower extremity Pneumonia Pulmonary embolism Sickle cell disease, type SC Surgical History Surgical History History of hand surgery 2x on rt fifth finger Family History Family History Grandparent Acute myocardial infarction Sibling Asthma Sibling Asthma Mother Hypertension Social History Social History Social History: Mary Jane Zuniga his mother is a durable power divorce attorney for healthcare. He is listed as a full code. Smoking status: Never smoker Second hand tobacco smoke exposure: No Alcohol intake: never Substance use: never Substance use type: does not use Additional occupation/education comments: Disabled Gender identity (if verbalized by the patient): Male Spiritual care concerns: No Agree to blood products: Yes Exam Narrative: Exam Narrative: GENERAL: Well-appearing, well-nourished, and in no acute distress. HEAD: Normocephalic, atraumatic. EYES: PERRLA and EOMI. ENT: Nares clear, no rhinorrhea or epistaxis. Mucous membranes moist. Oropharynx without tonsillar hypertrophy exudate or other lesions. CHEST: Clear to auscultation. No respiratory distress. No wheezes rales or rhonchi HEART: Regular rate and rhythm. No murmur heard. Normal peripheral pulses. ABDOMEN: Soft, nontender, nondistended EXTREMITIES: Normal range of motion. No edema. SKIN: Warm, dry, no rash. NEURO: No focal deficits. Alert and oriented x3. Cranial nerves II through XII grossly intact PSYCH: Normal mood and affect. Course Course Emergency Course: Patient in the room at this time noting he is continuing to have pain is hemodynamically stable felt appropriate for in-hospital treatment given his return visit Consultations Consultation #1: Discussed case with hospitalist who is agreed to accept the patient Date: 06/11/19 Vital Signs Vital signs: Vital Signs Temperature 97.7 F 06/11/19 13:57 Pulse Rate 95 06/11/19 13:57 Respiratory Rate 19 06/11/19 13:57 Blood Pressure 132/82 06/11/19 13:57 Pulse Oximetry 100 06/11/19 13:57 Temperature 97.7 F 06/11/19 13:57 Pulse Rate 95 06/11/19 13:57 Respiratory Rate 12 06/11/19 16:11 Blo
[2019-06-11] MEDS: SODIUM CHLORIDE 0.9% IV 1,000 ML 999 ML IV CONT ×3 (17:54→20:49)
[2019-06-11] MEDS: HYDROMORPHONE HCL 1 MG/ML INJ 2 MG IV PUSH (17:54)
[2019-06-11 18:14] LABS: Add Urine Microscopic? YES; Appearance Urine Clear (Clear); Bilirubin Urine Negative (Negative); Blood Urine Negative (Negative); Color Urine Yellow (Yellow); Glucose Urine UA Negative (Negative); Ketones Urine Negative (Negative); Leukocyte Esterase Ur Negative LEU/UL (Negative); Mucus Urine Rare /lpf; Nitrate Urine Negative (Negative); Protein Urine Negative (Negative); RBC Urine 0-2 /hpf (0-2); Specific Grav Ur 1.011 (1.001-1.035); WBC Urine 0-3 /hpf
[2019-06-11 18:36] LABS: INR 1.7; Prothrombin Time 19.1 Seconds (11.1-14.7)
[2019-06-11] MEDS: HYDROMORPHONE HCL 1 MG/ML INJ IV PUSH ×3 (18:37→22:43)
[2019-06-11 19:50] VITALS: BP 126/76; PULSE 83; RESP 16; O2SAT 100
[2019-06-11 20:23] VITALS: BMI 32.1
[2019-06-11 20:37] VITALS: BP 142/81; PULSE 78; RESP 16; TEMP 36.4; O2SAT 100
[2019-06-11] MEDS: LACTATED RINGERS 1,000 ML 125 ML IV CONT (20:40)
[2019-06-11] MEDS: FAMOTIDINE 20 MG/2 ML VIAL IV PUSH (20:48)
[2019-06-12] MEDS: HYDROMORPHONE HCL 1 MG/ML INJ IV PUSH ×2 (00:42→02:50)
--- NOTE | 2019-06-12 03:32 | PM.IMHP ---
H&P: HPI History of Present Illness Chief complaint: sickle cell anemia with pain crisis Narrative: Quan Downing is a 34 year old male who has a history of sickle cell anemia. 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 The patient was just admitted here on 05/19/2019. The patient stated that he has not even been able to follow-up with his information technology advisor. He told me that he probably started hurting about 4 days ago and that he had been in the emergency room couple days ago but did not want to be admitted at that time. The patient stated that he started having rib pain and pelvic pain and leg pain and is now living to his hands and arms. He has been taking his routine medication as prescribed. Was given an IV bolus and then started on IV fluids. He was given the lot in the emergency room. Patient still continues to complain of discomfort. Date of service 02/10/2020 reticular content was slightly high at 36.2. Review of Systems Review of Systems: Narrative: No fever no chills. No cough. All systems reviewed & are unremarkable except as noted in HPI and below Constitutional: Constitutional: Reports as per HPI and Reports no additional constitutional complaints Eyes: Eyes: Reports as per HPI and Reports no additional eye complaints ENT: Reports system reviewed and no additional complaints, except as documented and Reports Normal hearing present Cardiovascular: Cardiovascular: Reports no additional cardiovascular complaints Respiratory: Respiratory: Reports no additional respiratory complaints and Reports no additional respiratory complaints Gastrointestinal: Gastrointestinal: Reports as per HPI and Reports no additional gastrointestinal complaints Musculoskeletal: Musculoskeletal: Reports no additional musculoskeletal complaints Integumentary/Breasts: Skin/Breast: Reports system reviewed and no additional complaints, except as docu and Reports as per HPI Neurologic: Reports system reviewed and no additional complaints, except as documented, Reports as per HPI and Reports Normal hearing present Psychiatric: Psychiatric: Reports no additional psychiatric complaints and Reports as per HPI Endocrine: Endocrine: Reports no additional endocrine complaints Hematologic/Lymphatic: Hematologic/Lymphatic: Reports no additional hematologic/lymphatic complaints Allergic/Immunologic: Allergic/Immunologic: Reports no additional allergic/immunologic complaints PMFSH Past Medical History Medical History Acute chest syndrome Chronic narcotic use Chronic pain syndrome History of deep vein thrombosis (DVT) of lower extremity Pneumonia Pulmonary embolism Sickle cell disease, type SC Surgical History Surgical History History of hand surgery 2x on rt fifth finger Family History Family History (Updated 06/12/19 @ 03:38 by Alis Rodriguez NP) Grandparent Acute myocardial infarction Sibling Asthma Sibling Asthma Mother Hypertension Son Sickle cell trait Social History Social History (Updated 06/12/19 @ 03:38 by Alis Rodriguez NP) Social History: Mary Jane Zuniga his mother is a durable power estate planning attorney for healthcare. He is listed as a full code. He is on disability. He has a significant other. He has 2 children. Smoking status: Never smoker Second hand tobacco smoke exposure: No Alcohol intake: never Substance use: never Substance use type: does not use Living arrangements: with family Occupation/Education: other Additional occupation/education comments: Disabled Gender identity (if verbalized by the patient): Male Spiritual care concerns: No Agree to blood products: Yes Meds Home Medications and Allergies Home Medications Medication Instructions Recorded Confirmed Type folic acid 1 mg PO DAILY 02/16/19 06/11/19 History hydroxyurea [Hydrea] 500 mg PO BID 02/16/1906/11
[2019-06-12 04:29] VITALS: BP 144/91; PULSE 84; RESP 16; TEMP 36.2; O2SAT 99
[2019-06-12] MEDS: HYDROMORPHONE HCL 1 MG/ML INJ 2 MG IV PUSH ×6 (04:55→16:54)
[2019-06-12] MEDS: LACTATED RINGERS 1,000 ML 125 ML IV CONT ×3 (04:56→21:16)
[2019-06-12 06:22] LABS: Basophils Absolute Auto 0.1 K/mm3 (0.0-0.1); Basophils Percent Auto 0.7 % (0.2-1.2); Eosinophils Absolute Auto 0.2 K/mm3 (0-0.3); Eosinophils Percent Auto 2.6 % (0-4.4); Hematocrit 26.6 % (42.0-52.0); Hemoglobin 9.5 g/dL (14.0-18.0); Immature Granulocyte Absolute 0.01 K/mm3 (0.00-0.031); Immature Granulocyte Percent A 0.1 % (0-0.5); Lymphocytes Absolute Auto 4.11 K/mm3 (0.9-3.2); Lymphocytes Percent Auto 49.9 % (18.3-44.2); Mean Corpuscular HGB Conc 35.7 g/dl (32-36); Mean Corpuscular Hemoglobin 33.2 pg (26-34); Mean Platelet Volume 10.5 fl (7.4-10.4); Monocytes Absolute Auto 0.8 K/mm3 (0.1-0.6); Monocytes Percent Auto 9.2 % (2.6-8.5); Neutrophils Absolute Auto 3.1 K/mm3 (1.3-6.7); Neutrophils Percent Auto 37.5 % (45.5-73.1); Nucleated Red Blood Cells Perc 0.4 % (0.0-0.2); Platelet Count Result 283 k/mm3 (150-375); Red Blood Count 2.86 M/mm3 (4.6-6.20); Red Cell Distribution Width 15.4 % (11.5-14.5); White Blood Count 8.2 K/mm3 (4.5-10.0)
[2019-06-12 06:28] LABS: INR 2.5; Prothrombin Time 26.2 Seconds (11.1-14.7)
[2019-06-12 06:36] LABS: Alanine Aminotransferase 16 U/L (4-50); Albumin Level 3.6 g/dL (3.5-5.1); Alkaline Phosphatase 75 U/L (38-126); Aspartate Amino Transferase 25 U/L (17-59); Bilirubin,Total 0.6 mg/dL (0.2-1.3); Blood Urea Nitrogen 4 mg/dL (9-20); Calcium 8.1 mg/dL (8.4-10.2); Carbon Dioxide 24 mmol/L (22-30); Chloride 105 mmol/L (98-107); Estimated CRCL calculation 150 ml/min; Estimated Glomerular Filt Rate > 60; Glucose 106 mg/dL (75-110); Potassium 3.7 mmol/L (3.4-5.0); Sodium 141 mmol/L (137-145)
[2019-06-12] MEDS: FOLIC ACID 1 MG TABLET PO (08:50)
[2019-06-12] MEDS: FAMOTIDINE 20 MG/2 ML VIAL IV PUSH ×2 (08:50→21:15)
[2019-06-12] MEDS: HYDROXYUREA (*CHEMO) 500 MG CAPSULE PO ×2 (08:51→17:01)
--- NOTE | 2019-06-12 13:40 | PM.IMPN ---
Progress Note: A&P Assessment and Plan (1) Sickle cell disease, type SC: Code(s): D57.20 - Sickle-cell/Hb-C disease without crisis Status: Chronic Assessment and Plan: Pt sees Dr Marks in clinic. Pt currently on methadone and his ibuprofen. Patient is on Dilaudid folic acid Hydrea. Oxycodone held, and IV fluids. (2) Chronic pain syndrome: Code(s): G89.4 - Chronic pain syndrome Status: Chronic Assessment and Plan: Patient is on methadone at home and iv Dilaudid to 2 mg as he was receiving his last admission. (3) Pulmonary embolism: Code(s): I26.99 - Other pulmonary embolism without acute cor pulmonale Status: Chronic Assessment and Plan: Patient's INR is 2.5 today, continue with current Coumadin dose. Continue to monitor INRs Subjective Date/time seen: 06/12/19 13:40 Interval history: Quan Downing is a 34 year old male who has a history of sickle cell anemia. 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 The patient was just admitted here on 05/19/2019. Here again with Sickle cell pain crisis. Complains of pain in his arms, legs and low back. Review of Systems Review of Systems: All systems reviewed & are unremarkable except as noted in HPI and below Constitutional: Constitutional: Reports as per HPI and Reports no additional constitutional complaints Eyes: Eyes: Reports as per HPI and Reports no additional eye complaints ENT: Reports system reviewed and no additional complaints, except as documented and Reports Normal hearing present Cardiovascular: Cardiovascular: Reports no additional cardiovascular complaints Respiratory: Respiratory: Reports no additional respiratory complaints and Reports no additional respiratory complaints Gastrointestinal: Gastrointestinal: Reports as per HPI and Reports no additional gastrointestinal complaints Musculoskeletal: Musculoskeletal: Reports other (legs back and arm pains ) Integumentary/Breasts: Skin/Breast: Reports system reviewed and no additional complaints, except as docu and Reports as per HPI Neurologic: Reports system reviewed and no additional complaints, except as documented, Reports as per HPI and Reports Normal hearing present Psychiatric: Psychiatric: Reports no additional psychiatric complaints and Reports as per HPI Endocrine: Endocrine: Reports no additional endocrine complaints Hematologic/Lymphatic: Hematologic/Lymphatic: Reports no additional hematologic/lymphatic complaints Allergic/Immunologic: Allergic/Immunologic: Reports no additional allergic/immunologic complaints Exam Const: General: cooperative and healthy appearing; No in distress Nutritional Appearance: overweight Orientation/consciousness: oriented to person HENMT: Head: normal to inspection Resp: Effort & Inspection: no respiratory distress Auscultation: no rhonchi and no wheezes Cardio: Rate: regular rate Rhythm: regular rhythm GI: Inspection: normal to inspection GI Palp: No abdominal tenderness, No Guarding due to palpation present (GI) and No Hepatomegaly present Auscultation: normal bowel sounds Neuro: General: oriented to person Objective Data Vital Signs Vital Signs: Vital Signs - 24 hr 06/11/19 13:57 06/11/19 16:11 06/11/19 19:50 Temperature 36.5 C Pulse Rate 95 83 Respiratory Rate 19 12 16 Blood Pressure 132/82 126/76 Pulse Oximetry 100 96 100 06/11/19 20:37 06/12/19 04:29 Temperature 36.4 C L 36.2 C L Pulse Rate 78 84 Respiratory Rate 16 16 Blood Pressure 142/81 H 144/91 H Pulse Oximetry 100 99 Intake/Output Intake/Output: Intake & Output 06/09/19 06/10/19 06/11/19 06/12/19 23:59 23:59 23:59 23:59 Intake Total 3000 2600 Output Total 1950 Balance 3000 650 Meds/Results Medications: Active Medications Generic Name Dose Route Start Last Admin Trade Name Freq PRN Reason Stop Dose Admin Diphenhydramine HCl 25 mg 06/12/19 03:29 06/12/19 08:58 Benadryl Inj IV PU
[2019-06-12 14:00] VITALS: BP 125/72; PULSE 88; RESP 18; TEMP 36.3; O2SAT 98
[2019-06-12] MEDS: WARFARIN (*PBKC) 10 MG TABLET PO (17:01)
[2019-06-12] MEDS: HYDROMORPHONE HCL 2 MG/ML VIAL IV PUSH ×2 (19:14→21:15)
[2019-06-12 22:00] VITALS: BP 115/77; PULSE 71; RESP 14; TEMP 36.6; O2SAT 98
[2019-06-13] MEDS: HYDROMORPHONE HCL 2 MG/ML VIAL IV PUSH ×9 (00:08→22:10)
[2019-06-13] MEDS: LACTATED RINGERS 1,000 ML 125 ML IV CONT ×3 (04:36→22:19)
[2019-06-13 05:34] VITALS: BP 124/74; PULSE 67; RESP 14; TEMP 36.8; O2SAT 98
[2019-06-13 06:26] LABS: INR 2.4; Prothrombin Time 25.7 Seconds (11.1-14.7)
[2019-06-13] MEDS: FAMOTIDINE 20 MG/2 ML VIAL IV PUSH ×2 (08:08→22:10)
[2019-06-13] MEDS: HYDROXYUREA (*CHEMO) 500 MG CAPSULE PO ×2 (08:08→16:08)
[2019-06-13] MEDS: FOLIC ACID 1 MG TABLET PO (08:08)
--- NOTE | 2019-06-13 13:40 | PM.IMPN ---
Progress Note: A&P Assessment and Plan (1) Sickle cell disease, type SC: Code(s): D57.20 - Sickle-cell/Hb-C disease without crisis Status: Chronic Assessment and Plan: Pt sees Dr Marks in clinic. Pt currently on methadone and his ibuprofen. Patient is on Dilaudid folic acid Hydrea. Oxycodone held, and IV fluids. (2) Chronic pain syndrome: Code(s): G89.4 - Chronic pain syndrome Status: Chronic Assessment and Plan: Patient is on methadone at home and iv Dilaudid to 2 mg as he was receiving his last admission. (3) Pulmonary embolism: Code(s): I26.99 - Other pulmonary embolism without acute cor pulmonale Status: Chronic Assessment and Plan: Patient's INR is 2.4 today, continue with current Coumadin dose. Continue to monitor INRs Subjective Date/time seen: 06/13/19 13:40 Interval history: Quan Downing is a 34 year old male who has a history of sickle cell anemia. 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 The patient was just admitted here on 05/19/2019. Here again with Sickle cell pain crisis. Complains of pain in his arms, legs and low back. Review of Systems Review of Systems: All systems reviewed & are unremarkable except as noted in HPI and below Exam Const: General: cooperative, healthy appearing, comfortable, no acute distress, well developed, alert, awake and Physically active; No in distress Nutritional Appearance: average body habitus, well nourished and overweight Orientation/consciousness: oriented to person, oriented to place, oriented to time and patient oriented x3 Limitations: no limitations HENMT: Head: normal to inspection, No palpable skull fracture present, normocephalic and atraumatic Ears: hearing grossly normal bilaterally and external ears normal General nose exam: Normal external nose present, Normal nares present and No nasal polyps present Mouth: Yes Normal oral and palatal mucosa present Throat: posterior oropharynx normal Eyes: General: appearance normal, both eyes and all related structures Alignment and Position: alignment normal Periorbital: periorbital findings normal Eyelids: eyelids normal Conjunctivae: conjunctivae normal Sclera: sclerae normal Cornea: corneas normal Pupils: Equal, round and reactive pupils present and Pupil accommodation reflex normal EOM: EOMs intact bilaterally Neck: Neck: normal visual inspection, full ROM, no lymphadenopathy, trachea midline and supple Thyroid: thyroid normal Carotids: normal carotid upstroke Lymphatic: no lymphadenopathy noted Chest: Chest palpation & inspection: normal inspection of the chest Resp: Effort & Inspection: normal respiratory effort and no respiratory distress Auscultation: clear to auscultation bilaterally, no rhonchi and no wheezes Percussion: percussion normal Cardio: Palpation: normal PMI Rate: regular rate Rhythm: regular rhythm Heart sounds: S1 normal heart sound present and S2 normal heart sound present Peripheral pulses: Peripheral pulses 2+ throughout GI: Inspection: normal to inspection Auscultation: normal bowel sounds Rectal Exam: deferred : General: Yes no CVA tenderness Back/Spine/Pelvis: Back: no CVA tenderness Cervical Spine: cervical ROM normal Thoracic/Lumbar Spine: thoracic and lumbar spine normal to inspection Pelvis: no pain with anterior-posterior compression Skin: General skin exam: normal color Lesions: no lesions Rashes: no rashes Trauma: no lacerations or abrasions Wounds: no wounds Hair: normal Nails: normal Neuro: General: oriented to person, oriented to place, oriented to time and patient oriented x3 Cranial nerves: Yes Equal, round and reactive pupils present and Yes Normal hearing present Cognition (Neuro): normal cognition Speech: normal speech Gait exam (Neuro): Normal gait present Motor exam (neuro): 5/5 motor strength present throughout Sensory Exam: normal sensation Extrem: General: normal to inspection Right
[2019-06-13 14:00] VITALS: BP 125/71; PULSE 77; RESP 16; TEMP 36.4; O2SAT 98
[2019-06-13] MEDS: WARFARIN (*PBKC) 10 MG TABLET PO (18:56)
[2019-06-13 22:00] VITALS: BP 121/76; PULSE 92; RESP 15; TEMP 36.6; O2SAT 98
[2019-06-14] MEDS: HYDROMORPHONE HCL 2 MG/ML VIAL IV PUSH ×8 (01:06→22:40)
[2019-06-14 05:03] VITALS: BP 114/69; PULSE 85; RESP 17; TEMP 36.5; O2SAT 98
[2019-06-14 06:23] LABS: INR 2.4; Prothrombin Time 25.7 Seconds (11.1-14.7)
[2019-06-14] MEDS: LACTATED RINGERS 1,000 ML 125 ML IV CONT (06:31)
[2019-06-14] MEDS: HYDROXYUREA (*CHEMO) 500 MG CAPSULE PO ×2 (07:46→16:27)
[2019-06-14] MEDS: FOLIC ACID 1 MG TABLET PO (07:46)
[2019-06-14] MEDS: FAMOTIDINE 20 MG/2 ML VIAL IV PUSH (07:46)
[2019-06-14 10:20] VITALS: BP 130/80; PULSE 80; RESP 14; O2SAT 100
--- NOTE | 2019-06-14 13:08 | PM.IMPN ---
Progress Note: A&P Assessment and Plan (1) Sickle cell disease, type SC: Code(s): D57.20 - Sickle-cell/Hb-C disease without crisis Status: Chronic Assessment and Plan: Pt sees Dr Marks in clinic. Pt currently on methadone and his ibuprofen. Patient is on Dilaudid folic acid Hydrea. Oxycodone. (2) Chronic pain syndrome: Code(s): G89.4 - Chronic pain syndrome Status: Chronic Assessment and Plan: Patient is on methadone at home and iv Dilaudid to 2 mg every 3 prn pain (3) Pulmonary embolism: Code(s): I26.99 - Other pulmonary embolism without acute cor pulmonale Status: Chronic Assessment and Plan: Patient's INR is 2.4 today, continue with current Coumadin dose. Continue to monitor INRs Subjective Date/time seen: 06/14/19 13:08 Interval history: Quan Downing is a 34 year old male who has a history of sickle cell anemia. 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 The patient was just admitted here on 05/19/2019. Here again with Sickle cell pain crisis. Complains of pain in his arms, legs and low back. Pt states the pain is ongoing in his lower back Review of Systems Review of Systems: All systems reviewed & are unremarkable except as noted in HPI and below Integumentary/Breasts: Comments: Arms, legs and low back pain Exam Const: General: Physically active Orientation/consciousness: oriented to person, oriented to place, oriented to time and patient oriented x3 Limitations: no limitations HENMT: Head: normal to inspection, No palpable skull fracture present, normocephalic and atraumatic Ears: hearing grossly normal bilaterally and external ears normal General nose exam: Normal nares present and No nasal polyps present Eyes: Pupils: Equal, round and reactive pupils present and Pupil accommodation reflex normal Resp: Effort & Inspection: normal respiratory effort and no respiratory distress Auscultation: clear to auscultation bilaterally, no rhonchi and no wheezes Percussion: percussion normal Cardio: Palpation: normal PMI Rate: regular rate Rhythm: regular rhythm Heart sounds: S1 normal heart sound present and S2 normal heart sound present Peripheral pulses: Peripheral pulses 2+ throughout GI: Inspection: normal to inspection Auscultation: normal bowel sounds Back/Spine/Pelvis: Cervical Spine: cervical ROM normal Thoracic/Lumbar Spine: thoracic and lumbar spine normal to inspection Pelvis: no pain with anterior-posterior compression Skin: General skin exam: normal color Neuro: General: oriented to person, oriented to place, oriented to time and patient oriented x3 Cranial nerves: Yes Equal, round and reactive pupils present and Yes Normal hearing present Cognition (Neuro): normal cognition Speech: normal speech Gait exam (Neuro): Normal gait present Motor exam (neuro): 5/5 motor strength present throughout Sensory Exam: normal sensation Extrem: General: normal to inspection Right upper extremity: normal to inspection and shoulder/upper arm Left upper extremity: normal to inspection and shoulder/upper arm Right lower extremity: normal to inspection Left lower extremity: normal to inspection Psych: Appearance: grossly normal Mental Status: mental status grossly normal Speech and movement: Normal speech and movement present Affect: normal affect Attitude: cooperative Thought process: Normal thought process present Insight: Good insight present (Psych) Judgement: Good judgement present (Psych) Objective Data Vital Signs Vital Signs: Vital Signs - 24 hr 06/13/19 14:00 06/13/19 22:00 06/14/19 05:03 Temperature 36.4 C 36.6 C 36.5 C Pulse Rate 77 92 85 Respiratory Rate 16 15 17 Blood Pressure 125/71 121/76 114/69 Pulse Oximetry 98 98 98 06/14/19 10:20 Temperature Pulse Rate 80 Respiratory Rate 14 Blood Pressure 130/80 Pulse Oximetry 100 Intake/Output Intake/Output: Intake & Output 06/11/19 06/12/19 06/13/19 06/14/19 23
[2019-06-14 15:14] LABS: INR 2.5; Prothrombin Time 26.8 Seconds (11.1-14.7)
[2019-06-14] MEDS: WARFARIN (*PBKC) 10 MG TABLET PO (16:27)
[2019-06-14 22:00] VITALS: BP 102/66; PULSE 85; RESP 16; TEMP 36.3; O2SAT 97
[2019-06-15] MEDS: HYDROMORPHONE HCL 2 MG/ML VIAL IV PUSH ×3 (01:52→08:28)
[2019-06-15 06:00] VITALS: BP 118/67; PULSE 86; RESP 16; TEMP 36.3; O2SAT 100
[2019-06-15 06:08] LABS: Basophils Absolute Auto 0.1 K/mm3 (0.0-0.1); Basophils Percent Auto 0.6 % (0.2-1.2); Eosinophils Absolute Auto 0.4 K/mm3 (0-0.3); Eosinophils Percent Auto 5.3 % (0-4.4); Hematocrit 30.7 % (42.0-52.0); Hemoglobin 10.9 g/dL (14.0-18.0); Immature Granulocyte Absolute 0.01 K/mm3 (0.00-0.031); Immature Granulocyte Percent A 0.1 % (0-0.5); Lymphocytes Absolute Auto 4.09 K/mm3 (0.9-3.2); Lymphocytes Percent Auto 51.8 % (18.3-44.2); Mean Corpuscular HGB Conc 35.5 g/dl (32-36); Mean Corpuscular Hemoglobin 33.3 pg (26-34); Mean Corpuscular Volume 93.9 fl (80-100); Mean Platelet Volume 10.3 fl (7.4-10.4); Monocytes Absolute Auto 0.7 K/mm3 (0.1-0.6); Monocytes Percent Auto 9.1 % (2.6-8.5); Neutrophils Absolute Auto 2.6 K/mm3 (1.3-6.7); Neutrophils Percent Auto 33.1 % (45.5-73.1); Nucleated Red Blood Cells Perc 0.3 % (0.0-0.2); Platelet Count Result 290 k/mm3 (150-375); Red Blood Count 3.27 M/mm3 (4.6-6.20); Red Cell Distribution Width 14.9 % (11.5-14.5); White Blood Count 7.9 K/mm3 (4.5-10.0)
--- NOTE | 2019-06-15 06:19 | CONS_ITS ---
DATE OF CONSULTATION: 06/12/2019 REASON FOR CONSULTATION: Sickle cell crisis. HISTORY OF PRESENTING ILLNESS: This is a 34-year-old male with a history of sickle cell anemia, SC disease, with multiple admissions for sickle cell crisis and flare-ups. He now came in to the hospital with generalized pain, especially in the rib and pelvic area. His pain medications, including methadone and oxycodone, did not help him at home. He denies any fevers and chills. He denied any dysuria and hematuria. He also has been taking folic acid along with hydroxyurea. The patient also has a history of pulmonary embolism and has been taking Coumadin. He denies any other complaints. He started to feel slightly better. REVIEW OF SYSTEMS: A 12-point review of system was reviewed and as per HPI, otherwise negative. PAST MEDICAL HISTORY: History of sickle cell SC disease, recurrent pulmonary embolism, history of DVT, chronic pain syndrome, and a history of pneumonia. PAST SURGICAL HISTORY: History of a hand surgery. FAMILY HISTORY: Sickle cell trait in the son. SOCIAL HISTORY: The patient is on disability. He denies any history of smoking and drinking. PHYSICAL EXAMINATION: GENERAL: This patient is a well-developed, well-nourished, male, in no apparent distress, oriented x3. VITAL SIGNS: Per the nursing note. HEENT: Normocephalic and atraumatic. Clear oropharynx. LUNGS: Clear to auscultation bilaterally. CARDIOVASCULAR: Regular rate and rhythm. No murmurs. ABDOMEN: Soft, nontender, and nondistended. Bowel sounds are positive in all 4 quadrants. No hepatosplenomegaly. EXTREMITIES: No edema. NEUROLOGICAL EXAM: Grossly intact. LABORATORY DATA: WBC 8.2, hemoglobin 9.5, platelets 283,000, neutrophils 49%, reticulocyte count was 4.0 on admission with an LDH of 801. ASSESSMENT AND PLAN: 1. Sickle cell anemia with SC disease. The patient now came into the hospital with sickle cell crisis episode. He normally has been taking hydroxyurea 500 mg twice a day with folic acid 1 mg p.o. daily at home. He claims that he has been compliant with his medication. He denied any signs and symptoms of infections. The patient will continue IV hydration along with IV pain medicine Dilaudid 2 mg IV q.3 to 4 hours as needed. 2. Recurrent pulmonary embolism. He will continue Coumadin 10 mg p.o. daily. Hopefully, the patient will be ready to go home in the next 24 to 48 hours. TRACY Bart ALMARAZ M.D. LABORER CONCRETE PAVING LABORER CONCRETE PAVING D Arvind MT: Becky
[2019-06-15 06:24] LABS: INR 2.6; Prothrombin Time 27.1 Seconds (11.1-14.7)
[2019-06-15] MEDS: FOLIC ACID 1 MG TABLET PO (08:29)
[2019-06-15] MEDS: HYDROXYUREA (*CHEMO) 500 MG CAPSULE PO (08:29)
[2019-06-15 11:21] LABS: Immature Reticulocyte Fraction 28.7 % (3.0-15.9); Reticulocyte Hemoglobin Conten 31.7 pg (28.2-35.7); Reticulocyte Percent 3.92 % (0.7-4.3)
--- NOTE | 2019-07-13 12:19 | PM.DS ---
DS: Diagnosis Admitting Diagnosis Admitting Diagnosis: Sickle-cell/Hb-C disease with crisis, unspecified Discharge Diagnosis (1) Sickle cell disease, type SC: Code(s): D57.20 - Sickle-cell/Hb-C disease without crisis Status: Chronic Assessment and Plan: Pt sees Dr Marks in clinic. Pt currently on methadone and his ibuprofen. Patient is on Dilaudid folic acid Hydrea. Oxycodone. (2) Chronic pain syndrome: Code(s): G89.4 - Chronic pain syndrome Status: Chronic Assessment and Plan: Patient is on methadone at home and iv Dilaudid to 2 mg every 3 prn pain (3) Pulmonary embolism: Code(s): I26.99 - Other pulmonary embolism without acute cor pulmonale Status: Chronic Assessment and Plan: Patient's INR is 2.4 today, continue with current Coumadin dose. Continue to monitor INRs DS: Summary Hospital Course Reason for hospitalization: Quan Downing is a 34 year old male who has a history of sickle cell anemia. 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 The patient was just admitted here on 05/19/2019. The patient stated that he has not even been able to follow-up with his portfolio analyst. He told me that he probably started hurting about 4 days ago and that he had been in the emergency room couple days ago but did not want to be admitted at that time. The patient stated that he started having rib pain and pelvic pain and leg pain and is now living to his hands and arms. He has been taking his routine medication as prescribed. Was given an IV bolus and then started on IV fluids. He was given the lot in the emergency room. Patient still continues to complain of discomfort. Date of service 02/10/2020 reticular content was slightly high at 36.2. Hospital Course: Pt sees Dr Marks in clinic. Pt currently on methadone and his ibuprofen. Patient is on Dilaudid folic acid Hydrea. Oxycodone. Patient clinically stayed her H&H is good retic count are stable will going discharge the patient patient to follow-up with her portfolio analyst as scheduled Time Spent with Patient Time attestation: Total time spent providing and/or coordinating discharge services: Exam Const: General: comfortable and no acute distress HENMT: General nose exam: Normal nares present Mouth: Yes moist mucous membranes Eyes: General: appearance normal, both eyes and all related structures Sclera: sclerae normal Neck: Neck: supple Resp: Effort & Inspection: normal respiratory effort Auscultation: clear to auscultation bilaterally Cardio: Rate: regular rate Rhythm: regular rhythm GI: GI Palp: Yes Soft to palpation Auscultation: normal bowel sounds Skin: General skin exam: normal color Neuro: Sensory Exam: normal sensation Extrem: General: normal to inspection Psych: Affect: Anxious affect present Discharge Plan Discharge Consulting providers: Bernardo Sierra ; Jone Marks ; Alis Rodriguez ; Ricardo Gilman ; Ricky Modi Discharging Clinician: Elbert Damian Patient Disposition: Home, Self-Care Activity: as tolerated Diet: regular Patient Instructions: Antibiotic Form, Warfarin (By mouth), Pain Management (DC), Sickle Cell Crisis (DC) Stand Alone Forms: General Discharge Information Follow-up/Referrals: Jone Marks MD [Primary Care Provider] - Call for Appointment Discharge Medications: Continued methadone [Dolophine] 10 mg Tablet 10 mg PO BID RF: 0 oxycodone 7.5 mg Tablet, Oral Only 7.5 mg PO Q4-6H PRN (Reason: Breakthrough Pain) RF: 0 hydroxyurea [Hydrea] 500 mg Capsule 500 mg PO BID RF: 0 warfarin [Coumadin] 10 mg Tablet 10 mg PO QPM RF: 0 folic acid 1 mg Tablet 1 mg PO DAILY RF: 0 No Action warfarin [Coumadin] 2 mg Tablet 2 mg PO DAILY@1700 Qty: 30 RF: 0 Date of admission: 06/14/19 10:04 Primary Care Provider: Jone Marks Admitting Provider: Elyse Simon Discharge Date/Time: 06/15/19 12:20 Attending
== END 2019-06-15 12:20 | disposition home or self-care (01) | DRG 662 ==
LOC: ANHED 18:51 → ANH3MED 19:11
PROVIDERS: Emergency Medicine Emergency Medical Services; Nurse Practitioner; Admitting Provider Family Medicine; Emergency Provider Emergency Medicine; PCP Internal Medicine Hematology & Oncology; Visit Provider Family Medicine
DX: D57.219 Sickle-cell/Hb-C disease with crisis, unspecified (principal); G89.4 Chronic pain syndrome; I26.99 Other pulmonary embolism without acute cor pulmonale; Z86.718 Personal history of other venous thrombosis and embolism
CPT/HCPCS: 36415; 71046; 80053; 81001; 83615; 83735; 85025; 85046; 85610; 93005; 96361; 96374; 96375; 96376; 99285; A9270; G0378; G0379; J1170; J1200; J7030; J7120

== ENCOUNTER 2019-07-05 13:23 | Observation (INO) | payer OTHER, SELFPAY ==
[2019-07-05 13:27] VITALS: BP 134/78; PULSE 90; RESP 18; TEMP 36.3; O2SAT 98
--- NOTE | 2019-07-05 14:01 | ED.GENADULT ---
HPI - General Adult General Chief complaint: Unspecified <Bernardo Sierra PA-C - Last Filed: 07/05/19 14:03> Stated complaint: sickle cell crisi <ZAINAB Villavicencio Last Filed: 07/05/19 14:03> Time Seen by Provider: 07/05/19 13:40 <ZAINAB Villavicencio Last Filed: 07/05/19 14:03> Source: patient <ZAINAB Villavicencio Last Filed: 07/05/19 14:03> Mode of arrival: ambulatory <ZAINAB Villavicencio Last Filed: 07/05/19 14:03> Limitations: no limitations <Bernardo Sierra PA-C - Last Filed: 07/05/19 14:03> History of Present Illness HPI narrative: Patient is a 34-year-old male with history of sickle cell disease who present with sickle cell crisis noting similar occurrences in the past with generalized body aches patient denies recent illness or vomiting diarrhea chest pain or shortness of breath patient on arrival in no distress has been taking his home pain medications with improvement patient denies fever. <ZAINAB Villavicencio Last Filed: 07/05/19 14:03> Related Data Home medications: Home Medications Medication Instructions Recorded Confirmed folic acid 1 mg PO DAILY 02/16/19 06/11/19 hydroxyurea [Hydrea] 500 mg PO BID 02/16/19 06/11/19 methadone [Dolophine] 10 mg PO BID 02/16/19 06/11/19 oxycodone 7.5 mg PO Q4-6H PRN 02/16/19 06/11/19 warfarin [Coumadin] 10 mg PO QPM 02/16/19 06/11/19 <ZAINAB Villavicencio Last Filed: 07/05/19 14:03> Allergies/adverse reactions: Allergies Allergy/AdvReac Type Severity Reaction Status Date / Time Fish Containing Products Allergy Intermediate Itching Verified 07/05/19 13:29 <ZAINAB Villavicencio Last Filed: 07/05/19 14:03> Review of Systems Review of Systems: All systems reviewed & are unremarkable except as noted in HPI and below <ZAINAB Villavicencio Last Filed: 07/05/19 14:03> [facility] Past Medical History Medical History: Medical History Acute chest syndrome Chronic narcotic use Chronic pain syndrome History of deep vein thrombosis (DVT) of lower extremity Pneumonia Pulmonary embolism Sickle cell disease, type SC <Bernardo Sierra PA-C - Last Filed: 07/05/19 14:03> Surgical History Surgical History: Surgical History History of hand surgery 2x on rt fifth finger <Bernardo Sierra PA-C - Last Filed: 07/05/19 14:03> Family History Family History: Family History (Updated 06/12/19 @ 03:38 by Alis Rodriguez NP) Grandparent Acute myocardial infarction Sibling Asthma Sibling Asthma Mother Hypertension Son Sickle cell trait <Bernardo Sierra PA-C - Last Filed: 07/05/19 14:03> Social History Social History: Social History Social History: Mary Jane Zuniga his mother is a durable power senior attorney for healthcare. He is listed as a full code. He is on disability. He has a significant other. He has 2 children. Smoking status: Never smoker Second hand tobacco smoke exposure: No Alcohol intake: never Substance use: never Substance use type: does not use Additional occupation/education comments: Disabled Gender identity (if verbalized by the patient): Male Spiritual care concerns: No Agree to blood products: Yes <Bernardo Sierra PA-C - Last Filed: 07/05/19 14:03> Exam Narrative: Exam Narrative: GENERAL: Well-appearing, well-nourished, and in no acute distress. HEAD: Normocephalic, atraumatic. EYES: PERRLA and EOMI. ENT: Nares clear, no rhinorrhea or epistaxis. Mucous membranes moist. CHEST: Clear to auscultation. No respiratory distress. No wheezes rales or rhonchi HEART: Regular rate and rhythm. No murmur heard. Normal peripheral pulses. ABDOMEN: Soft, nontender, nondistended EXTREMITIES: Normal range of motion. No edema. SKIN: Warm, dry, no rash
[2019-07-05] MEDS: HYDROMORPHONE HCL 1 MG/ML INJ 2 MG IV PUSH (14:02)
[2019-07-05] MEDS: SODIUM CHLORIDE 0.9% IV 1,000 ML 999 ML IV CONT ×2 (14:02→15:54)
[2019-07-05 14:03] LABS: Basophils Absolute Auto 0.1 K/mm3 (0.0-0.1); Basophils Percent Auto 0.8 % (0.2-1.2); Eosinophils Absolute Auto 0.2 K/mm3 (0-0.3); Eosinophils Percent Auto 1.8 % (0-4.4); Hematocrit 29.9 % (42.0-52.0); Hemoglobin 10.5 g/dL (14.0-18.0); Immature Granulocyte Absolute 0.04 K/mm3 (0.00-0.031); Immature Granulocyte Percent A 0.4 % (0-0.5); Immature Platelet Fraction Pct 3.6 % (0.9-11.2); Immature Reticulocyte Fraction 34.8 % (3.0-15.9); Lymphocytes Absolute Auto 3.69 K/mm3 (0.9-3.2); Mean Corpuscular HGB Conc 35.1 g/dl (32-36); Mean Corpuscular Hemoglobin 32.7 pg (26-34); Mean Corpuscular Volume 93.1 fl (80-100); Mean Platelet Volume 10.4 fl (7.4-10.4); Monocytes Absolute Auto 0.7 K/mm3 (0.1-0.6); Monocytes Percent Auto 7.5 % (2.6-8.5); Neutrophils Absolute Auto 4.4 K/mm3 (1.3-6.7); Neutrophils Percent Auto 48.5 % (45.5-73.1); Nucleated Red Blood Cells Perc 0.3 % (0.0-0.2); Platelet Count Result 370 k/mm3 (150-375); Red Blood Count 3.21 M/mm3 (4.6-6.20); Red Cell Distribution Width 14.1 % (11.5-14.5); Reticulocyte Hemoglobin Conten 33.2 pg (28.2-35.7); Reticulocyte Percent 6.76 % (0.7-4.3); Reticulocytes Absolute 0.22 B/L (32.2-175.7)
[2019-07-05 14:12] LABS: Platelet Estimate Adequate (Adequate); Sickle Cells 1+ (NORMAL); Target Cells 2+ (NORMAL)
[2019-07-05] MEDS: ONDANSETRON INJ 4 MG/2 ML VIAL IV PUSH (14:17)
[2019-07-05 14:52] LABS: Alanine Aminotransferase 29 U/L (4-50); Alkaline Phosphatase 79 U/L (38-126); Aspartate Amino Transferase 37 U/L (17-59); Blood Urea Nitrogen 5 mg/dL (9-20); Calcium 8.3 mg/dL (8.4-10.2); Carbon Dioxide 24 mmol/L (22-30); Chloride 108 mmol/L (98-107); Estimated CRCL calculation 148 ml/min; Estimated Glomerular Filt Rate > 60; Glucose 99 mg/dL (75-110); Lactate Dehydrogenase 676 U/L (313-618); Sodium 140 mmol/L (137-145)
[2019-07-05 14:56] LABS: Add Urine Microscopic? NO; Appearance Urine Clear (Clear); Bilirubin Urine Negative (Negative); Blood Urine Negative (Negative); Color Urine Yellow (Yellow); Glucose Urine UA Negative (Negative); Ketones Urine Negative (Negative); Leukocyte Esterase Ur Negative LEU/UL (Negative); Nitrate Urine Negative (Negative); Protein Urine Negative (Negative); Specific Grav Ur 1.014 (1.001-1.035); Urobilinogen Urine Negative mg/dL (<2.0)
[2019-07-05] MEDS: HYDROMORPHONE HCL 1 MG/ML INJ IV PUSH (15:54)
[2019-07-05 18:03] VITALS: BP 124/80; PULSE 84; RESP 20; TEMP 36.7; O2SAT 99
[2019-07-05 18:31] VITALS: BP 122/69; PULSE 72; RESP 17; O2SAT 100
[2019-07-05] MEDS: LACTATED RINGERS 1,000 ML 125 ML IV CONT (18:47)
[2019-07-05 18:48] VITALS: BMI 32.6
[2019-07-05 18:53] VITALS: BP 125/76; PULSE 72; RESP 16; TEMP 36.7; O2SAT 98; BMI 34.2
[2019-07-05 20:00] VITALS: BP 109/73; PULSE 81; RESP 16; TEMP 36.3; O2SAT 96
[2019-07-05] MEDS: FAMOTIDINE 20 MG/2 ML VIAL IV PUSH (21:19)
--- NOTE | 2019-07-05 22:30 | PM.IMHP ---
H&P: HPI History of Present Illness Chief complaint: Acute on chronic pain. Narrative: Quan Downing is a 34-year-old male with sickle cell disease SC, chronic pain syndrome, and history of pulmonary embolism on warfarin who presented to the emergency department earlier today for evaluation of acute on chronic pain. He has chronic back pain which he attributes to his sickle cell disease, and is maintained on methadone with oxycodone as needed for breakthrough pain. For the last several days he has had an increase in his low back pain and is also having pain down into his legs, and his home pain regimen has not been keeping it under control. He states compliance with hydroxyurea taken at home. At the time my evaluation he rates the pain /. He denies fever, chills, sweats, chest pain, shortness of breath, nausea, vomiting, diarrhea, and dysuria. Review of Systems Review of Systems: Narrative: Twelve systems were reviewed with pertinent positives and negatives as per HPI. [facility] Past Medical History Medical History (Updated 07/05/19 @ 23:36 by Kimberlee Santamaria PA-C) Acute chest syndrome Chronic narcotic use Chronic methadone with oxycodone for breakthrough pain. Chronic pain syndrome History of deep vein thrombosis (DVT) of lower extremity History of pulmonary embolism Pulmonary embolism Sickle cell disease, type SC Surgical History Surgical History (Updated 07/05/19 @ 23:32 by Kimberlee Santamaria PA-C) History of hand surgery Tendon surgery on right 5th finger. Family History Family History Grandparent Acute myocardial infarction Sibling Asthma Sibling Asthma Mother Hypertension Son Sickle cell trait Daughter Sickle cell trait Social History Social History (Updated 07/05/19 @ 23:33 by Kimberlee Santamaria PA-C) Social History: The patient lives in [place] with his family. He is on disability due to sickle cell disease and chronic pain. He designates his mother, Mary Jane Zuniga, as his surrogate decision maker and he wishes to be a full code. He is a lifelong nonsmoker and denies alcohol and drug use. Additional occupation/education comments: Spiritual care concerns: No Agree to blood products: Yes Meds Home Medications and Allergies Home Medications Medication Instructions Recorded Confirmed Type folic acid 1 mg PO DAILY 02/16/19 07/05/19 History hydroxyurea [Hydrea] 500 mg PO BID 02/16/19 07/05/19 History methadone [Dolophine] 10 mg PO BID 02/16/19 07/05/19 History oxycodone 7.5 mg PO Q4-6H PRN 02/16/19 07/05/19 History warfarin [Coumadin] 10 mg PO QPM 02/16/19 07/05/19 History Allergies Allergy/AdvReac Type Severity Reaction Status Date / Time Fish Containing Products Allergy Intermediate Itching Verified 07/05/19 13:29 Vital Signs Vital Signs - 24 hr 07/05/19 13:27 07/05/19 18:03 07/05/19 18:31 Temperature 97.3 F L 98.0 F Pulse Rate 90 84 72 Respiratory Rate 18 20 17 Blood Pressure 134/78 124/80 122/69 Pulse Oximetry 98 99 100 07/05/19 18:53 07/05/19 20:00 Temperature 98.0 F 97.4 F L Pulse Rate 72 81 Respiratory Rate 16 16 Blood Pressure 125/76 109/73 Pulse Oximetry 98 96 Exam Narrative: Exam Narrative: General: Well-developed, well-nourished male in the semi-Diop position in bed watching television in mild pain. HEENT: PERRL, EOMI. Sclerae anicteric. Oral mucosa moist. Neck: Supple. Respiratory: Lungs are clear to auscultation bilaterally. Cardiovascular: Regular rate and rhythm with S1-S2. Gastrointestinal: Abdomen is soft, nontender, and nondistended with positive bowel sounds. Skin: Warm and dry. No rash or lesions on limited exam. Extremities: No cyanosis, clubbing, or edema. Radial and pedal pulses intact. Neurological: Alert. Cranial nerves 2-12 are grossly intact. No gross focal deficits to casual conversation. Psychiatric: Pleasant and cooperative with nor
[2019-07-06] VITALS (7 sets, daily range): BP systolic 108–135; BP diastolic 66–74; PULSE 71–84; RESP 16–18; TEMP 36.2–37.2; O2SAT 95–98
[2019-07-06 00:37] LABS: INR 1.1; Prothrombin Time 13.8 Seconds (11.1-14.7)
[2019-07-06] MEDS: LACTATED RINGERS 1,000 ML 125 ML IV CONT ×3 (03:04→19:22)
[2019-07-06] MEDS: HYDROMORPHONE HCL 1 MG/ML INJ 2 MG IV PUSH ×8 (03:04→21:26)
[2019-07-06 05:33] LABS: Basophils Absolute Auto 0.1 K/mm3 (0.0-0.1); Basophils Percent Auto 0.5 % (0.2-1.2); Eosinophils Absolute Auto 0.4 K/mm3 (0-0.3); Eosinophils Percent Auto 3.2 % (0-4.4); Hematocrit 25.9 % (42.0-52.0); Hemoglobin 9.2 g/dL (14.0-18.0); Immature Granulocyte Absolute 0.03 K/mm3 (0.00-0.031); Immature Granulocyte Percent A 0.3 % (0-0.5); Lymphocytes Absolute Auto 4.77 K/mm3 (0.9-3.2); Lymphocytes Percent Auto 43.9 % (18.3-44.2); Mean Corpuscular HGB Conc 35.5 g/dl (32-36); Mean Corpuscular Hemoglobin 32.9 pg (26-34); Mean Corpuscular Volume 92.5 fl (80-100); Mean Platelet Volume 10.5 fl (7.4-10.4); Monocytes Absolute Auto 0.8 K/mm3 (0.1-0.6); Monocytes Percent Auto 7.5 % (2.6-8.5); Neutrophils Absolute Auto 4.9 K/mm3 (1.3-6.7); Neutrophils Percent Auto 44.6 % (45.5-73.1); Nucleated Red Blood Cells Perc 0.3 % (0.0-0.2); Platelet Count Result 324 k/mm3 (150-375); Prothrombin Time 13.3 Seconds (11.1-14.7); Red Cell Distribution Width 13.4 % (11.5-14.5); White Blood Count 10.9 K/mm3 (4.5-10.0)
[2019-07-06 05:37] LABS: Blood Urea Nitrogen 5 mg/dL (9-20); Calcium 8.3 mg/dL (8.4-10.2); Carbon Dioxide 26 mmol/L (22-30); Chloride 108 mmol/L (98-107); Estimated CRCL calculation 155 ml/min; Estimated Glomerular Filt Rate > 60; Glucose 92 mg/dL (75-110); Lactate Dehydrogenase 560 U/L (313-618); Potassium 3.9 mmol/L (3.4-5.0); Sodium 141 mmol/L (137-145)
[2019-07-06] MEDS: FAMOTIDINE 20 MG/2 ML VIAL IV PUSH ×2 (09:37→21:25)
[2019-07-06] MEDS: HYDROXYUREA (*CHEMO) 500 MG CAPSULE PO ×2 (09:37→17:18)
[2019-07-06] MEDS: FOLIC ACID 1 MG TABLET PO (09:37)
[2019-07-06] MEDS: ONDANSETRON INJ 4 MG/2 ML VIAL IV PUSH (09:46)
--- NOTE | 2019-07-06 15:51 | PM.IMPN ---
Progress Note: A&P Assessment and Plan (1) Sickle-cell disease with pain: Code(s): D57.00 - Hb-SS disease with crisis, unspecified Status: Acute Assessment and Plan: Labs similar to his baseline. Unfortunately relief with chronic pain regimen is inadequate. Currently receiving PRN hydromorphone I suspect he may be experiencing opioid induced hyperalgesia, as his SSA seems relatively stable (2) Chronic pain syndrome: Code(s): G89.4 - Chronic pain syndrome Status: Chronic Assessment and Plan: As above, he is on long-term methadone with oxycodone for breakthrough pain. May benefit from pain management consultation URINE DRUG SCREEN TO INVESTIGATE POSSIBILITY OF DIVERSION OR MISUSE IS STILL PENDING (3) Chronic narcotic use: Code(s): F11.90 - Opioid use, unspecified, uncomplicated Status: Chronic Assessment and Plan: As detailed above. 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 Subjective Date/time seen: 07/06/19 15:51 Interval history: Admitted 07/04 for increased generalized pain beyond his usual chronic pain with SSA. Chronic narcotic use (methadone and prn oxy). 07/05 pain is no longer 10/10, but still moderate-severe. Generalized. Deep aching. No n/v. No sob. No specific chest or abdominal outside of the generalized pain. No change in GI/ function. No bleeding. No weakness or numbness. Review of Systems Review of Systems: All systems reviewed & are unremarkable except as noted in HPI and below Exam Narrative: Exam Narrative: General: Well-developed, well-nourished male seated in bed viewing a movie on his laptop HEENT: PERRL, EOMI. Sclerae anicteric. Oral mucosa moist and pink. Neck: Supple. Respiratory: Lungs clear to auscultation bilaterally. Effort normal. Cardiovascular: Regular rate and rhythm with S1-S2. No murmur audible. Gastrointestinal: Abdomen is soft, nontender, and nondistended with positive bowel sounds. Skin: Warm and dry. No rash or lesions on limited exam. Extremities: No cyanosis, clubbing, or edema. Radial and pedal pulses intact. Neurological: Alert. Cranial nerves 2-12 are grossly intact. No gross focal deficits to casual conversation. Psychiatric: Pleasant and cooperative with normal mood and affect. Judgment and insight intact. Alert. Ox4. Objective Data Vital Signs Vital Signs: Vital Signs - 24 hr 07/05/19 18:03 07/05/19 18:31 07/05/19 18:53 Temperature 98.0 F 98.0 F Pulse Rate 84 72 72 Respiratory Rate 20 17 16 Blood Pressure 124/80 122/69 125/76 Pulse Oximetry 99 100 98 07/05/19 20:00 07/06/19 01:46 07/06/19 01:47 Temperature 97.4 F L 97.2 F L 97.2 F L Pulse Rate 81 78 78 Respiratory Rate 16 16 16 Blood Pressure 109/73 116/74 116/74 Pulse Oximetry 96 97 97 07/06/19 06:00 07/06/19 09:55 07/06/19 13:28 Temperature 97.6 F 98.7 F 99.0 F Pulse Rate 71 84 84 Respiratory Rate 16 18 18 Blood Pressure 115/72 135/70 120/66 Pulse Oximetry 95 95 96 Intake/Output Intake/Output: Intake & Output 07/03/19 07/04/19 07/05/19 07/06/19 23:59 23:59 23:59 23:59 Intake Total 2100 2440 Output Total 1325 Balance 2100 1115 Meds/Results Medications: Active Medications Generic Name Dose Route Start Last Admin Trade Name Freq PRN Reason Stop Dose Admin Diphenhydramine HCl 25 mg 07/05/19 23:44 07/06/19 00:07 Benadryl Cap PO 25 mg Q6H PRN Administration Itching Famotidine 20 mg 07/05/19 21:00 07/06/19 09:37 Pepcid Iv IV PUSH 20 mg Q12HR CHRISTOPHER Administration Folic Acid 1 mg 07/06/19 09:00 07/06/19 09:37 Folic Acid PO 1 mg DAILY CHRISTOPHER Administration Hydromorphone HCl 2 mg 07/05/19 23:44 07/06/19 15:24 Dilaudid Inj IV PUSH 2 mg Q3H PRN Administration Pain
[2019-07-06] MEDS: WARFARIN (*PBKC) 10 MG TABLET PO (17:18)
--- NOTE | 2019-07-06 17:44 | CONS_ITS ---
DATE OF CONSULTATION: 07/06/2019 REASON FOR CONSULTATION: Sickle cell crisis. HISTORY OF PRESENTING ILLNESS: This is a 34-year-old male with history of sickle cell SC disease with recurrent pulmonary embolism and has been on anticoagulation therapy with Coumadin 10 mg daily. Unfortunately, he has multiple recurrent episode of sickle cell crisis pain almost on a monthly basis while he is taking methadone 10 mg b.i.d. with [place]. He came back into the hospital with generalized body ache and musculoskeletal pain. He denies any fevers or chills. He denies any dysuria and hematuria. He denies any chest pain and shortness of breath. He claimed that he has been taking hydroxyurea along with folic acid on a regular basis. REVIEW OF SYSTEMS: 12-point review of system was reviewed and as per HPI, otherwise negative. PAST MEDICAL HISTORY: Sickle cell disease with frequent sickle cell crisis episodes, chronic pain syndrome, history of recurrent pulmonary embolism. PAST SURGICAL HISTORY: Right 5th finger tendon surgery. HOME MEDICATIONS: Reviewed. ALLERGIES: REVIEWED. SOCIAL HISTORY: The patient is with 2 children, who have sickle cell trait. He is on disability. He denies any history of smoking and drinking. FAMILY HISTORY: Both children has sickle cell trait. BODY AFTER ALLERGIES: PHYSICAL EXAMINATION: GENERAL: This patient is a well-developed, well-nourished, male, in no apparent distress, oriented x3. VITAL SIGNS: Per nursing note. HEENT: Normocephalic, atraumatic. Clear oropharynx. LUNGS: Clear to auscultation bilaterally. CARDIOVASCULAR: Regular rate and rhythm. No murmurs. ABDOMEN: Soft, nontender, nondistended. Bowel sounds are positive in all 4 quadrants. No hepatosplenomegaly. EXTREMITIES: No edema. NEURO: Grossly intact. LABORATORY DATA: WBC 10.9, hemoglobin 9.2, MCV 92.5, platelets 325,000, neutrophils 44%, reticulocyte percentage 6.76, LDH 676, which has gone down to 560 now. Creatinine 0.7. ASSESSMENT/PLAN: 1. Sickle cell anemia with sickle cell crisis. The patient has been admitted to the hospital for pain management. His home pain medicine include methadone 10 mg b.i.d. as well as [place], which were not helping him. He seems to be quite comfortable with Dilaudid injection 2 mg every 3 hours. His LDH has already normalized. There are no signs of infection. I will continue IV hydration with folic acid 1 mg p.o. daily. He will also continue hydroxyurea 500 mg b.i.d. Hopefully, patient will recover from this sickle cell crisis episode in next 24-48 hours and will be able to go home on his home pain medication. 2. Recurrent pulmonary embolism. He will continue Coumadin 10 mg daily. PT/INR is subtherapeutic. Compliance may be an issue. Hopefully, his INR will improve while he is getting warfarin on a regular basis in the hospital. TRACY ALMARAZ M.D. BODY SERVICE TEAM MEMBER BODY SERVICE TEAM MEMBER D Arvind MT: Becky
[2019-07-07] VITALS (7 sets, daily range): BP systolic 114–135; BP diastolic 61–78; PULSE 74–90; RESP 15–20; TEMP 36.6–37.3; O2SAT 93–97
[2019-07-07] MEDS: HYDROMORPHONE HCL 1 MG/ML INJ 2 MG IV PUSH ×3 (00:29→07:11)
[2019-07-07] MEDS: LACTATED RINGERS 1,000 ML 125 ML IV CONT ×3 (03:29→19:15)
[2019-07-07 05:33] LABS: Hemoglobin 9.5 g/dL (14.0-18.0); Immature Platelet Fraction Pct 3.5 % (0.9-11.2); Immature Reticulocyte Fraction 29.8 % (3.0-15.9); Mean Corpuscular HGB Conc 35.2 g/dl (32-36); Mean Corpuscular Hemoglobin 32.8 pg (26-34); Mean Corpuscular Volume 93.1 fl (80-100); Mean Platelet Volume 10.5 fl (7.4-10.4); Platelet Count Result 313 k/mm3 (150-375); Red Cell Distribution Width 13.7 % (11.5-14.5); Reticulocyte Hemoglobin Conten 33.3 pg (28.2-35.7); Reticulocyte Percent 6.15 % (0.7-4.3); Reticulocytes Absolute 0.18 B/L (32.2-175.7); White Blood Count 8.9 K/mm3 (4.5-10.0)
[2019-07-07 05:41] LABS: INR 1.1; Prothrombin Time 13.7 Seconds (11.1-14.7)
[2019-07-07 05:46] LABS: Alanine Aminotransferase 24 U/L (4-50); Albumin Level 3.8 g/dL (3.5-5.1); Alkaline Phosphatase 73 U/L (38-126); Aspartate Amino Transferase 38 U/L (17-59); Bilirubin,Total 0.7 mg/dL (0.2-1.3); Blood Urea Nitrogen 6 mg/dL (9-20); Calcium 8.2 mg/dL (8.4-10.2); Carbon Dioxide 29 mmol/L (22-30); Chloride 105 mmol/L (98-107); Estimated CRCL calculation 155 ml/min; Estimated Glomerular Filt Rate > 60; Glucose 114 mg/dL (75-110); Lactate Dehydrogenase 564 U/L (313-618); Potassium 4.1 mmol/L (3.4-5.0); Sodium 139 mmol/L (137-145)
[2019-07-07] MEDS: HYDROXYUREA (*CHEMO) 500 MG CAPSULE PO ×2 (08:48→17:37)
[2019-07-07] MEDS: FAMOTIDINE 20 MG/2 ML VIAL IV PUSH ×2 (08:49→21:05)
[2019-07-07] MEDS: FOLIC ACID 1 MG TABLET PO (08:49)
[2019-07-07] MEDS: HYDROMORPHONE HCL 1 MG/ML INJ IV PUSH ×4 (11:13→21:07)
--- NOTE | 2019-07-07 11:18 | PM.IMPN ---
Progress Note: A&P Assessment and Plan (1) Sickle-cell disease with pain: Code(s): D57.00 - Hb-SS disease with crisis, unspecified Status: Acute Assessment and Plan: Labs similar to his baseline. Unfortunately relief with chronic pain regimen is inadequate. Currently receiving PRN hydromorphone and will start tapering dose and frequency may be experiencing opioid induced hyperalgesia,as Dr Euceda suspected as his SSA seems relatively stable (2) Chronic pain syndrome: Code(s): G89.4 - Chronic pain syndrome Status: Chronic Assessment and Plan: As above, he is on long-term methadone with oxycodone for breakthrough pain. May benefit from pain management consultation URINE DRUG SCREEN TO INVESTIGATE POSSIBILITY OF DIVERSION OR MISUSE IS STILL PENDING (3) Chronic narcotic use: Code(s): F11.90 - Opioid use, unspecified, uncomplicated Status: Chronic Assessment and Plan: As detailed above. (4) Chronic anticoagulation: Code(s): Z79.01 - jail (current) use of anticoagulants Status: Acute Assessment and Plan: INR remains subtherapeutic on 10 qd , will increase Continue warfarin and monitor INR. Subjective Date/time seen: 07/07/19 11:18 Interval history: Date of visit 07/06. 34-year-old black male admitted 07/04 for increased generalized pain beyond his usual chronic pain with SSA. Chronic narcotic use (methadone and prn oxy). Thinks pain is slowly improving has been getting up more. Generalized. Deep aching. No n/v. No sob. No specific chest or abdominal outside of the generalized pain. No change in GI/ function. No bleeding. No weakness or numbness. Exam Narrative: Exam Narrative: General: Well-developed, well-nourished male seated in bed viewing a movie on his laptop as he was 07/05 HEENT: PERRL, EOMI. Sclerae anicteric. Neck: Supple. Respiratory: Lungs clear to auscultation bilaterally. Effort normal. Cardiovascular: Regular rate and rhythm with S1-S2. No murmur audible. Gastrointestinal: Abdomen is soft, nontender, and nondistended with positive bowel sounds. Skin: Warm and dry. No rash or lesions on limited exam. Extremities: No edema. Radial and pedal pulses intact. Neurological: Alert. no focal deficets Psychiatric: Pleasant and cooperative with normal mood and affect. Judgment and insight intact. Alert. Ox4. Objective Data Vital Signs Vital Signs: Vital Signs - 24 hr 07/06/19 13:28 07/06/19 17:49 07/06/19 21:12 Temperature 37.2 C 37.1 C 36.7 C Pulse Rate 84 82 78 Respiratory Rate 18 18 16 Blood Pressure 120/66 108/68 126/67 Pulse Oximetry 96 95 98 07/07/19 01:55 07/07/19 06:11 07/07/19 08:00 Temperature 37.3 C 37.1 C Pulse Rate 82 74 74 Respiratory Rate 16 16 16 Blood Pressure 120/72 118/78 Pulse Oximetry 97 97 97 07/07/19 10:00 Temperature 36.6 C Pulse Rate 79 Respiratory Rate 15 Blood Pressure 123/72 Pulse Oximetry 95 Intake/Output Intake/Output: Intake & Output 07/04/19 07/05/19 07/06/19 07/07/19 23:59 23:59 23:59 23:59 Intake Total 2100 4030 2300 Output Total 1825 1000 Balance 2100 2205 1300 Meds/Results Medications: Active Medications Generic Name Dose Route Start Last Admin Trade Name Freq PRN Reason Stop Dose Admin Diphenhydramine HCl 25 mg 07/05/19 23:44 07/06/19 21:26 Benadryl Cap PO 25 mg Q6H PRN Administration Itching Famotidine 20 mg 07/05/19 21:00 07/07/19 08:49 Pepcid Iv IV PUSH 20 mg Q12HR CHRISTOPHER Administration Folic Acid 1 mg 07/06/19 09:00 07/07/19 08:49 Folic Acid PO 1 mg DAILY CHRISTOPHER Administration Hydromorphone HCl 1 mg 07/07/19 11:02 07/07/19 11:13 Dilaudid Inj IV PUSH 1 mg Q3H PRN Administration Pain Rated 7-10 Hydroxyurea 500 mg 07/06/19 09:00 07/07/19 08:48 Hydrea PO 500 mg BID CHRISTOPHER Administration Lactated Ringer's 1,000 mls @ 125 mls/hr 07/05/19 17:45
[2019-07-07] MEDS: WARFARIN (*PBKC) 10 MG TABLET PO (17:37)
[2019-07-08] MEDS: HYDROMORPHONE HCL 1 MG/ML INJ IV PUSH ×2 (01:10→04:51)
[2019-07-08 02:00] VITALS: BP 114/73; PULSE 74; RESP 20; TEMP 36.3; O2SAT 97
[2019-07-08] MEDS: LACTATED RINGERS 1,000 ML 125 ML IV CONT ×3 (03:27→19:26)
[2019-07-08 05:52] VITALS: BP 111/65; PULSE 79; RESP 20; TEMP 36.4; O2SAT 96
[2019-07-08] MEDS: FOLIC ACID 1 MG TABLET PO (08:06)
[2019-07-08] MEDS: FAMOTIDINE 20 MG/2 ML VIAL IV PUSH ×2 (08:06→20:44)
[2019-07-08] MEDS: HYDROXYUREA (*CHEMO) 500 MG CAPSULE PO ×2 (08:06→17:01)
[2019-07-08 08:26] LABS: Hematocrit 28.5 % (42.0-52.0); Hemoglobin 10.1 g/dL (14.0-18.0); Mean Corpuscular HGB Conc 35.4 g/dl (32-36); Mean Corpuscular Hemoglobin 32.8 pg (26-34); Mean Corpuscular Volume 92.5 fl (80-100); Mean Platelet Volume 10.5 fl (7.4-10.4); Platelet Count Result 347 k/mm3 (150-375); Red Blood Count 3.08 M/mm3 (4.6-6.20); Red Cell Distribution Width 13.6 % (11.5-14.5); Reticulocyte Hemoglobin Conten 33.3 pg (28.2-35.7); Reticulocyte Percent 6.26 % (0.7-4.3); Reticulocytes Absolute 0.19 B/L (32.2-175.7); White Blood Count 9.8 K/mm3 (4.5-10.0)
[2019-07-08 08:35] LABS: Prothrombin Time 13.2 Seconds (11.1-14.7)
[2019-07-08 08:58] LABS: Alanine Aminotransferase 23 U/L (4-50); Albumin Level 3.9 g/dL (3.5-5.1); Alkaline Phosphatase 77 U/L (38-126); Aspartate Amino Transferase 37 U/L (17-59); Bilirubin,Total 0.9 mg/dL (0.2-1.3); Blood Urea Nitrogen 4 mg/dL (9-20); Calcium 8.3 mg/dL (8.4-10.2); Carbon Dioxide 26 mmol/L (22-30); Chloride 105 mmol/L (98-107); Estimated CRCL calculation 155 ml/min; Estimated Glomerular Filt Rate > 60; Glucose 94 mg/dL (75-110); Lactate Dehydrogenase 657 U/L (313-618); Potassium 3.8 mmol/L (3.4-5.0); Sodium 139 mmol/L (137-145)
[2019-07-08 09:39] VITALS: BP 123/69; PULSE 79; RESP 16; TEMP 36.7; O2SAT 98
--- NOTE | 2019-07-08 09:51 | PM.IMPN ---
Progress Note: A&P Assessment and Plan (1) Sickle-cell disease with pain: Code(s): D57.00 - Hb-SS disease with crisis, unspecified Status: Acute Assessment and Plan: Labs similar to his baseline. Unfortunately relief with chronic pain regimen is inadequate. Currently receiving PRN hydromorphone and will keep at 2 mg with degree of pain may be experiencing opioid induced hyperalgesia,as Dr Euceda suspected as his SSA seems relatively stable (2) Chronic pain syndrome: Code(s): G89.4 - Chronic pain syndrome Status: Chronic Assessment and Plan: As above, he is on long-term methadone with oxycodone for breakthrough pain. May benefit from pain management consultation URINE DRUG SCREEN TO INVESTIGATE POSSIBILITY OF DIVERSION OR MISUSE IS STILL PENDING (3) Chronic narcotic use: Code(s): F11.90 - Opioid use, unspecified, uncomplicated Status: Chronic Assessment and Plan: As detailed above. 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 Subjective Date/time seen: 07/08/19 09:51 Interval history: Date of visit 07/07. 34-year-old black male admitted 07/04 for increased generalized pain beyond his usual chronic pain with SSA. Chronic narcotic use (methadone and prn oxy). Thinks pain is slowly improving has been getting up more until decreased to 1 mg dilaudid and now worse.. Generalized. Deep aching. No n/v. No sob. No specific chest or abdominal outside of the generalized pain. No change in GI/ function. No bleeding. No weakness or numbness. Exam Narrative: Exam Narrative: Bp 124/70 p 78 T 36.8 General: Well-developed, well-nourished male seated in bed viewing a movie on his laptop as he was previous days HEENT: PERRL, EOMI. Sclerae anicteric. Neck: Supple. Respiratory: Lungs clear to auscultation bilaterally.. Cardiovascular: Regular rate and rhythm with S1-S2. No murmur audible. Gastrointestinal: Abdomen is soft, nontender, and nondistended with positive bowel sounds. Skin: Warm and dry. No rash or lesions on limited exam. Extremities: No edema. Radial and pedal pulses intact. Neurological: Alert. no focal deficets Psychiatric: Pleasant and cooperative with normal mood and affect. Judgment and insight intact. Alert. Ox4. Objective Data Vital Signs Vital Signs: Vital Signs - 24 hr 07/07/19 10:00 07/07/19 14:00 07/07/19 18:00 Temperature 36.6 C 36.6 C 36.8 C Pulse Rate 79 90 86 Respiratory Rate 15 16 16 Blood Pressure 123/72 130/75 135/76 Pulse Oximetry 95 93 94 07/07/19 22:00 07/08/19 02:00 07/08/19 05:52 Temperature 36.6 C 36.3 C L 36.4 C Pulse Rate 88 74 79 Respiratory Rate 20 20 20 Blood Pressure 114/61 114/73 111/65 Pulse Oximetry 96 97 96 07/08/19 09:39 Temperature 36.7 C Pulse Rate 79 Respiratory Rate 16 Blood Pressure 123/69 Pulse Oximetry 98 Intake/Output Intake/Output: Intake & Output 07/05/19 07/06/19 07/07/19 07/08/19 23:59 23:59 23:59 23:59 Intake Total 2100 4030 4390 1390 Output Total 1825 2450 1425 Balance 2100 2205 1940 -35 Meds/Results Medications: Active Medications Generic Name Dose Route Start Last Admin Trade Name Freq PRN Reason Stop Dose Admin Diphenhydramine HCl 25 mg 07/05/19 23:44 07/07/19 21:07 Benadryl Cap PO 25 mg Q6H PRN Administration Itching Famotidine 20 mg 07/05/19 21:00 07/08/19 08:06 Pepcid Iv IV PUSH 20 mg Q12HR CHRISTOPHER Administration Folic Acid 1 mg 07/06/19 09:00 07/08/19 08:06 Folic Acid PO 1 mg DAILY CHRISTOPHER Administration Hydromorphone HCl 1 mg 07/07/19 11:02 07/08/19 04:51 Dilaudid Inj IV PUSH 1 mg Q3H PRN Administration Pain Rated 7-10 Hydroxyurea 500 mg 07/06/19 09:00 07/08/19 08:06 Hydrea
[2019-07-08] MEDS: HYDROMORPHONE HCL 2 MG/ML VIAL IV PUSH ×4 (11:20→20:44)
[2019-07-08 13:29] VITALS: BP 123/77; PULSE 85; RESP 18; TEMP 36.6; O2SAT 98
[2019-07-08] MEDS: WARFARIN (*PBKC) 10 MG TABLET PO (17:02)
[2019-07-08] MEDS: WARFARIN (*PBKC) 2 MG TABLET PO (17:02)
--- NOTE | 2019-07-08 17:40 | WPDONCPN ---
Progress Note: A/P - Additional Plan Sickle cell anemia SS disease with sickle cell crisis. Labs showed improvement in hemoglobin but reticulocyte count remains slightly elevated. Clinically he has Elizabeth for response with some improvement in his pain control. Suggest continue IV hydration with hydroxyurea and folic acid. Continue pain medication based on hospitalist recommendations. No signs of infection. Hopefully he will be ready to be discharge in next 24 hours. - Time Spent With Patient Total time spent is greater than 50% in coordination of care (as documented) at patient's floor/unit and/or counseling patient: 15 - 25 minutes Subjective Interval history: Sickle cell anemia with sickle cell crisis Review of Systems - Review of Systems Patient complain of lower extremity pain and improvement in upper extremity discomfort. He denies fevers and chills. He denies chest pain and shortness of breath. Exam Vital signs: Temp Pulse Resp BP Pulse Ox 36.6 C 85 18 123/77 98 07/08/19 13:29 07/08/19 13:29 07/08/19 13:29 07/08/19 13:29 07/08/19 13:29 Narrative: Lungs sounded clear to auscultation bilaterally Cardiovascular regular rate rhythm no murmurs Abdomen soft nontender nondistended Extremities no edema PN: Objective Data - Labs CBC & Chem 7: 07/08/19 07:47 07/08/19 07:47 Labs: Laboratory Results - last 24 hr 07/08/19 07/08/19 07/08/19 07:47 07:47 07:47 WBC 9.8 RBC 3.08 L Hgb 10.1 L Hct 28.5 L MCV 92.5 MCH 32.8 MCHC 35.4 RDW 13.6 Plt Count 347 MPV 10.5 H Absolute Retic 0.19 L Percent Retic 6.26 H Immature Retic Fraction 33.0 H Retic Hgb Content 33.3 PT 13.2 INR 1.0 Sodium 139 Potassium 3.8 Chloride 105 Carbon Dioxide 26 BUN 4 L Creatinine 0.70 Estim Creat Clear Calc 155 Estimated GFR > 60 Glucose 94 Calcium 8.3 L Total Bilirubin 0.9 AST 37 ALT 23 Alkaline Phosphatase 77 Lactate Dehydrogenase 657 H Total Protein 7.0 Albumin 3.9
[2019-07-08 17:45] VITALS: BP 127/73; PULSE 81; RESP 18; TEMP 36.7; O2SAT 98
[2019-07-08 21:09] VITALS: BP 116/81; PULSE 81; RESP 16; TEMP 36.2; O2SAT 100
[2019-07-09] MEDS: HYDROMORPHONE HCL 2 MG/ML VIAL IV PUSH ×7 (00:01→20:59)
[2019-07-09 02:12] VITALS: BP 110/59; PULSE 71; RESP 16; TEMP 36.1; O2SAT 97
[2019-07-09] MEDS: LACTATED RINGERS 1,000 ML 125 ML IV CONT ×3 (03:57→19:14)
[2019-07-09 06:13] VITALS: BP 132/79; PULSE 75; RESP 16; TEMP 36.1; O2SAT 95
[2019-07-09 08:00] LABS: Hematocrit 27.7 % (42.0-52.0); Immature Reticulocyte Fraction 32.8 % (3.0-15.9); Mean Corpuscular HGB Conc 36.1 g/dl (32-36); Mean Corpuscular Hemoglobin 33.1 pg (26-34); Mean Corpuscular Volume 91.7 fl (80-100); Mean Platelet Volume 9.9 fl (7.4-10.4); Platelet Count Result 355 k/mm3 (150-375); Red Blood Count 3.02 M/mm3 (4.6-6.20); Red Cell Distribution Width 13.4 % (11.5-14.5); Reticulocyte Hemoglobin Conten 34.5 pg (28.2-35.7); Reticulocyte Percent 5.19 % (0.7-4.3); Reticulocytes Absolute 0.16 B/L (32.2-175.7); White Blood Count 10.1 K/mm3 (4.5-10.0)
[2019-07-09] MEDS: FAMOTIDINE 20 MG/2 ML VIAL IV PUSH ×2 (08:10→21:50)
[2019-07-09] MEDS: FOLIC ACID 1 MG TABLET PO (08:10)
[2019-07-09] MEDS: HYDROXYUREA (*CHEMO) 500 MG CAPSULE PO ×2 (08:10→17:25)
[2019-07-09 08:11] LABS: INR 1.1; Prothrombin Time 13.9 Seconds (11.1-14.7)
[2019-07-09 08:48] LABS: Alanine Aminotransferase 22 U/L (4-50); Albumin Level 3.8 g/dL (3.5-5.1); Alkaline Phosphatase 75 U/L (38-126); Aspartate Amino Transferase 33 U/L (17-59); Bilirubin,Total 0.8 mg/dL (0.2-1.3); Blood Urea Nitrogen 5 mg/dL (9-20); Calcium 8.5 mg/dL (8.4-10.2); Carbon Dioxide 28 mmol/L (22-30); Chloride 106 mmol/L (98-107); Estimated CRCL calculation 155 ml/min; Estimated Glomerular Filt Rate > 60; Glucose 102 mg/dL (75-110); Lactate Dehydrogenase 563 U/L (313-618); Potassium 3.8 mmol/L (3.4-5.0); Sodium 138 mmol/L (137-145)
--- NOTE | 2019-07-09 09:41 | PM.IMPN ---
Progress Note: A&P Assessment and Plan (1) Sickle-cell disease with pain: Code(s): D57.00 - Hb-SS disease with crisis, unspecified Status: Acute Assessment and Plan: Labs similar to his baseline. Unfortunately relief with chronic pain regimen is inadequate. Currently receiving PRN hydromorphone and will keep at 2 mg with degree of pain may be experiencing opioid induced hyperalgesia,as Dr Euceda suspected as his SSA seems relatively stable (2) Chronic pain syndrome: Code(s): G89.4 - Chronic pain syndrome Status: Chronic Assessment and Plan: As above, he is on long-term methadone with oxycodone for breakthrough pain. May benefit from pain management consultation URINE DRUG SCREEN TO INVESTIGATE POSSIBILITY OF DIVERSION OR MISUSE IS STILL PENDING (3) Chronic narcotic use: Code(s): F11.90 - Opioid use, unspecified, uncomplicated Status: Chronic Assessment and Plan: As detailed above. 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 Subjective Date/time seen: 07/09/19 09:41 Interval history: Date of visit . 34-year-old black male admitted 07/04 for increased generalized pain beyond his usual chronic pain with SSA. Chronic narcotic use (methadone and prn oxy). Thinks pain is slowly improving has been getting up more until decreased to 1 mg dilaudid so increased back to 2 mg 07/07 pm. Generalized. Deep aching. No n/v. No sob. No specific chest or abdominal outside of the generalized pain. No change in GI/ function. No bleeding. No weakness or numbness. Exam Narrative: Exam Narrative: Bp 132/78 p 7 4 T 36. General: Well-developed, well-nourished male seated in bed viewing a movie on his laptop as he has every day HEENT: . Sclerae anicteric. Neck: Supple. Respiratory: Lungs clear to auscultation bilaterally.. Cardiovascular: Regular rate and rhythm with S1-S2. No murmur audible. Gastrointestinal: Abdomen is soft, nontender, and nondistended with positive bowel sounds. Skin: Warm and dry. No rash or lesions on limited exam. Extremities: No edema. Radial and pedal pulses intact. Neurological: Alert. no focal deficets Psychiatric: Pleasant and cooperative with normal mood and affect. Judgment and insight intact. Alert. Ox4. Objective Data Vital Signs Vital Signs: Vital Signs - 24 hr 07/08/19 13:29 07/08/19 17:45 07/08/19 21:09 Temperature 36.6 C 36.7 C 36.2 C L Pulse Rate 85 81 81 Respiratory Rate 18 18 16 Blood Pressure 123/77 127/73 116/81 Pulse Oximetry 98 98 100 07/09/19 02:12 07/09/19 06:13 Temperature 36.1 C L 36.1 C L Pulse Rate 71 75 Respiratory Rate 16 16 Blood Pressure 110/59 L 132/79 Pulse Oximetry 97 95 Intake/Output Intake/Output: Intake & Output 07/06/19 07/07/19 07/08/19 07/09/19 23:59 23:59 23:59 23:59 Intake Total 4030 4390 4020 1550 Output Total 1825 2450 3875 800 Balance 2205 1940 145 750 Meds/Results Medications: Active Medications Generic Name Dose Route Start Last Admin Trade Name Freq PRN Reason Stop Dose Admin Diphenhydramine HCl 25 mg 07/05/19 23:44 07/09/19 08:26 Benadryl Cap PO 25 mg Q6H PRN Administration Itching Famotidine 20 mg 07/05/19 21:00 07/09/19 08:10 Pepcid Iv IV PUSH 20 mg Q12HR CHRISTOPHER Administration Folic Acid 1 mg 07/06/19 09:00 07/09/19 08:10 Folic Acid PO 1 mg DAILY CHRISTOPHER Administration Hydromorphone HCl 2 mg 07/08/19 11:04 07/09/19 08:12 Dilaudid Inj IV PUSH 2 mg Q3H PRN Administration Pain Rated 7-10 Hydroxyurea 500 mg 07/06/19 09:00 07/09/19 08:10 Hydrea PO 500 mg BID CHRISTOPHER Administration Lactated Ringer's 1,000 mls @ 125 mls/hr 07/05/19 17:45 07/09/19 03:57 Lr - Lactated Yury
[2019-07-09 10:00] VITALS: BP 129/71; PULSE 73; RESP 16; TEMP 36.4; O2SAT 97
[2019-07-09 11:09] LABS: Amphetamines NEGATIVE ng/mL (<500); Barbiturates NEGATIVE ng/mL (<300); Benzodiazepines NEGATIVE ng/mL (<100); Cocaine Metabolite NEGATIVE ng/mL (<150); Codeine NEGATIVE ng/mL (<50); EDDP 1700 ng/mL (<100); Hydrocodone NEGATIVE ng/mL (<50); Hydromorphone 550 ng/mL (<50); Marijuana Metabolite 9 ng/mL (<5); Marijuana Metabolite POSITIVE ng/mL (<20); Methadone 910 ng/mL (<100); Methadone Metabolite POSITIVE ng/mL (<100); Morphine NEGATIVE ng/mL (<50); Norhydrocodone NEGATIVE ng/mL (<50); Opiates POSITIVE ng/mL (<100); Oxidant NEGATIVE mcg/mL (<200); pH 6.2 (4.5-9.0)
[2019-07-09 14:00] VITALS: BP 125/70; PULSE 91; RESP 16; TEMP 36.6; O2SAT 99
[2019-07-09] MEDS: WARFARIN (*PBKC) 2 MG TABLET PO (17:25)
[2019-07-09] MEDS: WARFARIN (*PBKC) 10 MG TABLET PO (17:25)
[2019-07-09 18:00] VITALS: BP 131/83; PULSE 76; RESP 17; TEMP 36.7; O2SAT 95
[2019-07-09 21:29] VITALS: BP 123/63; PULSE 83; RESP 16; TEMP 36; O2SAT 96
[2019-07-10] MEDS: HYDROMORPHONE HCL 2 MG/ML VIAL IV PUSH ×5 (00:04→13:24)
[2019-07-10] MEDS: LACTATED RINGERS 1,000 ML 125 ML IV CONT ×2 (03:36→10:47)
[2019-07-10 03:49] VITALS: BP 120/63; PULSE 65; RESP 16; TEMP 36.1; O2SAT 96
[2019-07-10 06:02] VITALS: BP 125/71; PULSE 65; RESP 16; TEMP 36; O2SAT 96
[2019-07-10] MEDS: HYDROXYUREA (*CHEMO) 500 MG CAPSULE PO (09:09)
[2019-07-10] MEDS: FAMOTIDINE 20 MG/2 ML VIAL IV PUSH (09:09)
[2019-07-10] MEDS: FOLIC ACID 1 MG TABLET PO (09:09)
[2019-07-10 10:00] VITALS: BP 123/82; PULSE 69; RESP 15; TEMP 36.5; O2SAT 99
[2019-07-10 13:23] LABS: Basophils Absolute Auto 0.1 K/mm3 (0.0-0.1); Basophils Percent Auto 0.7 % (0.2-1.2); Eosinophils Absolute Auto 0.6 K/mm3 (0-0.3); Eosinophils Percent Auto 5.7 % (0-4.4); Hematocrit 30.7 % (42.0-52.0); Hemoglobin 10.7 g/dL (14.0-18.0); Immature Granulocyte Absolute 0.03 K/mm3 (0.00-0.031); Immature Granulocyte Percent A 0.3 % (0-0.5); Lymphocytes Absolute Auto 4.53 K/mm3 (0.9-3.2); Lymphocytes Percent Auto 45.9 % (18.3-44.2); Mean Corpuscular HGB Conc 34.9 g/dl (32-36); Mean Corpuscular Hemoglobin 32.9 pg (26-34); Mean Corpuscular Volume 94.5 fl (80-100); Mean Platelet Volume 9.9 fl (7.4-10.4); Monocytes Absolute Auto 0.6 K/mm3 (0.1-0.6); Monocytes Percent Auto 5.9 % (2.6-8.5); Neutrophils Absolute Auto 4.1 K/mm3 (1.3-6.7); Neutrophils Percent Auto 41.5 % (45.5-73.1); Nucleated Red Blood Cells Perc 0.2 % (0.0-0.2); Platelet Count Result 347 k/mm3 (150-375); Red Blood Count 3.25 M/mm3 (4.6-6.20); Red Cell Distribution Width 13.7 % (11.5-14.5); White Blood Count 9.9 K/mm3 (4.5-10.0)
[2019-07-10 13:33] LABS: INR 1.2; Prothrombin Time 14.5 Seconds (11.1-14.7)
[2019-07-10 13:37] LABS: Lactate Dehydrogenase 757 U/L (313-618)
[2019-07-10 14:00] VITALS: BP 130/87; PULSE 88; RESP 16; TEMP 36.5; O2SAT 97
--- NOTE | 2019-07-10 16:46 | PM.DS ---
DS: Diagnosis Admitting Diagnosis Admitting Diagnosis: Hb-SS disease with crisis, unspecified Discharge Diagnosis (1) Sickle-cell disease with pain: Code(s): D57.00 - Hb-SS disease with crisis, unspecified Status: Acute Assessment and Plan: Labs similar to his baseline.. Received pRN hydromorphone and kept at 2 mg with degree of pain may be experiencing opioid induced hyperalgesia,as Dr Euceda suspected as his SSA seems relatively stable (2) Chronic pain syndrome: Code(s): G89.4 - Chronic pain syndrome Status: Chronic Assessment and Plan: As above, he is on long-term methadone with oxycodone for breakthrough pain. May benefit from pain management consultation URINE DRUG SCREEN TO INVESTIGATE POSSIBILITY OF DIVERSION OR MISUSE DID RETURN ANG URINE TOXICOLOGY + for cocaine and marijuana! (3) Chronic narcotic use: Code(s): F11.90 - Opioid use, unspecified, uncomplicated Status: Chronic Assessment and Plan: As detailed above. 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 Continue warfarin at 12 mg daily and have INR drawn 07/14 DS: Summary Hospital Course Hospital Course: 34-year-old black male with sickle cell disease admitted with sickle cell painful crisis. Hydrated aggressively given narcotics and continued his usual hydroxy urea. Pain slowly subsided to the point he could be discharged home. Were concerned about narcotic addiction and urine toxicology screen returned after discharge did reveal both marijuana and cocaine along with his usual prescribed medications.. His hemoglobin remained stable at 10 while here. Time Spent with Patient Time attestation: Total time spent providing and/or coordinating discharge services: 35 minutes Exam Narrative: Exam Narrative: Condition on discharge blood pressure 130/86 pulse 86 saturating 97% on room air Lungs are clear CV regular rate rhythm Abdomen soft nontender Extremities without edema good distal pulses Neuro alert cooperative no focal deficits DS: Data Data Completed and Pending Labs on day of discharge: Labs from last 24 hours 07/10/19 07/10/19 07/10/19 13:18 13:17 13:17 WBC 9.9 RBC 3.25 L Hgb 10.7 L Hct 30.7 L MCV 94.5 MCH 32.9 MCHC 34.9 RDW 13.7 Plt Count 347 MPV 9.9 Immature Gran % (Auto) 0.3 Neut % (Auto) 41.5 L Lymph % (Auto) 45.9 H [place] % (Auto) 5.9 Eos % (Auto) 5.7 H Baso % (Auto) 0.7 Lymph # (Auto) 4.53 H [place] # (Auto) 0.6 Eos # (Auto) 0.6 H Baso # (Auto) 0.1 Abs Immat Gran (auto) 0.03 Absolute Neuts (auto) 4.1 Absolute Nucleated RBC 0.0 Nucleated RBC % 0.2 PT 14.5 INR 1.2 Lactate Dehydrogenase 757 H Discharge Plan Discharge Attending physician on discharge: Gildardo Gutierrez Consulting providers: Bernardo Sierra Discharging Clinician: Gildardo Gutierrez Patient Disposition: Home, Self-Care Activity: as tolerated Diet: regular Patient Instructions: Antibiotic Form, Warfarin (By mouth), Pain Management (GEN), Sickle Cell Crisis (DC) Stand Alone Forms: General Discharge Information Follow-up/Referrals: Jone Marks MD [Primary Care Provider] - 2 Weeks Discharge Medications: New warfarin [Coumadin] 2 mg Tablet 2 mg PO DAILY@1700 Qty: 30 RF: 0 Continued methadone [Dolophine] 10 mg Tablet 10 mg PO BID RF: 0 oxycodone 7.5 mg Tablet, Oral Only 7.5 mg PO Q4-6H PRN (Reason: Breakthrough Pain) RF: 0 hydroxyurea [Hydrea] 500 mg Capsule 500 mg PO BID RF: 0 warfarin [Coumadin] 10 mg Tablet 10 mg PO QPM RF: 0 folic acid 1 mg Tablet 1 mg PO DAILY RF: 0 Other Ambulatory Orders: Prothrombin Time INR (Routi
== END 2019-07-10 15:54 | disposition home or self-care (01) ==
LOC: ANHED 18:00 → ANH2MED 18:13
PROVIDERS: Emergency Medicine Emergency Medical Services; Internal Medicine; Physician Assistant; Admitting Provider Hospitalist; Emergency Provider Emergency Medicine; PCP Internal Medicine Hematology & Oncology; Visit Provider Internal Medicine
DX: D57.00 Hb-SS disease with crisis, unspecified (principal); G89.4 Chronic pain syndrome; F11.90 Opioid use, unspecified, uncomplicated; R82.6 Abnormal urine levels of substances chiefly nonmedicinal as to source; Z79.01 Long term (current) use of anticoagulants; Z86.711 Personal history of pulmonary embolism; Z86.718 Personal history of other venous thrombosis and embolism
CPT/HCPCS: 36415; 80048; 80053; 80299; 81003; 83615; 85025; 85027; 85046; 85055; 85610; 96361; 96374; 96375; 96376; 99285; A9270; G0378; G0379; J0131; J1170; J2405; J7030; J7120

== ENCOUNTER 2019-08-02 23:16 | Observation (INO) | payer OTHER, SELFPAY ==
[2019-08-02 23:20] VITALS: BP 128/72; PULSE 104; RESP 18; TEMP 36.5; O2SAT 95
--- NOTE | 2019-08-02 23:57 | ED.GENADULT ---
HPI - General Adult General Chief complaint: Unspecified Stated complaint: SICKLE CELL PAIN Time Seen by Provider: 08/02/19 23:45 Source: patient Mode of arrival: ambulatory Limitations: no limitations History of Present Illness HPI narrative: This patient is 34 yo male with Sickle cell anemia who presents with c/o sickle cell crisis pain. Patient presents with worsening of his back and rib pain that is typical of his crisis pain. He takes Methadone 10 mg twice a day and he has not taken since this morning after he ran out of medication. He also take oxycodone 7.5 mg daily. Patient reports he is requiring more and more medication for his pain so he is running out. He denies nausea, vomiting, fever, cough, sob. Related Data Home Medications Medication Instructions Recorded Confirmed folic acid 1 mg PO DAILY 02/16/19 08/03/19 hydroxyurea [Hydrea] 500 mg PO BID 02/16/19 08/03/19 methadone [Dolophine] 10 mg PO BID 02/16/19 08/03/19 oxycodone 7.5 mg PO Q4-6H PRN 02/16/19 08/03/19 warfarin [Coumadin] 10 mg PO QPM 02/16/19 08/03/19 Allergies Allergy/AdvReac Type Severity Reaction Status Date / Time Fish Containing Products Allergy Intermediate Itching Verified 08/02/19 23:19 Review of Systems Review of Systems: All systems reviewed & are unremarkable except as noted in HPI and below Constitutional: Constitutional: Denies chills, Denies fever(s) and Denies weakness ENT: Denies nasal congestion and Denies sore throat Cardiovascular: Cardiovascular: Denies chest pain and Denies radiating jaw, neck or arm pain Respiratory: Respiratory: Denies chest congestion, Denies cough and Denies dyspnea Gastrointestinal: Gastrointestinal: Denies abdominal pain, Denies constipation, Denies diarrhea, Denies nausea and Denies vomiting Integumentary/Breasts: Skin/Breast: Reports as per HPI [facility] Past Medical History Medical History Acute chest syndrome Chronic narcotic use Chronic methadone with oxycodone for breakthrough pain. Chronic pain syndrome History of deep vein thrombosis (DVT) of lower extremity History of pulmonary embolism Pulmonary embolism Sickle cell disease, type SC Surgical History Surgical History History of hand surgery Tendon surgery on right 5th finger. Family History Family History (Updated 08/03/19 @ 04:40 by Julia Grimaldo RN) Grandparent Acute myocardial infarction Sibling Asthma Sibling Asthma Mother Hypertension Son Sickle cell trait Daughter Sickle cell trait Grandparent Diabetes mellitus Social History Social History (Updated 07/05/19 @ 23:33 by Kimberlee Santamaria PA-C) Social History: The patient lives in [place] with his family. He is on disability due to sickle cell disease and chronic pain. He designates his mother, Mary Jane Zuniga, as his surrogate decision maker and he wishes to be a full code. He is a lifelong nonsmoker and denies alcohol and drug use. Smoking status: Never smoker Second hand tobacco smoke exposure: Yes Alcohol intake: never Substance use: never Additional occupation/education comments: Gender identity (if verbalized by the patient): Male Spiritual care concerns: No Agree to blood products: Yes Exam Const: Orientation/consciousness: patient oriented x3 Limitations: other limitations (mild distress) Eyes: Pupils: Equal, round and reactive pupils present EOM: EOMs intact bilaterally Chest: Chest palpation & inspection: normal inspection of the chest Resp: Effort & Inspection: normal respiratory effort and no retractions Auscultation: clear to auscultation bilaterally Cardio: Rate: regular rate Rhythm: regular rhythm Heart sounds: no murmurs GI: GI Palp: Yes Soft to palpation, No Tenderness to palpation present (GI) and No Guarding due to palpation present (GI) Skin: General skin e
[2019-08-03] VITALS (7 sets, daily range): BP systolic 111–149; BP diastolic 63–95; PULSE 74–86; RESP 11–18; TEMP 36.1–36.5; O2SAT 95–100; BMI 32.4
[2019-08-03] MEDS: SODIUM CHLORIDE 0.9% IV 1,000 ML 999 ML IV CONT (00:23)
[2019-08-03] MEDS: HYDROMORPHONE HCL 1 MG/ML INJ 2 MG IV PUSH ×9 (00:23→22:01)
[2019-08-03] MEDS: ONDANSETRON INJ 4 MG/2 ML VIAL IV PUSH ×2 (00:24→22:01)
[2019-08-03 01:01] LABS: Basophils Absolute Auto 0.1 K/mm3 (0.0-0.1); Basophils Percent Auto 0.7 % (0.2-1.2); Eosinophils Absolute Auto 0.4 K/mm3 (0-0.3); Eosinophils Percent Auto 2.7 % (0-4.4); Hematocrit 26.5 % (42.0-52.0); Hemoglobin 9.3 g/dL (14.0-18.0); Immature Granulocyte Absolute 0.05 K/mm3 (0.00-0.031); Immature Granulocyte Percent A 0.3 % (0-0.5); Immature Platelet Fraction Pct 3.5 % (0.9-11.2); Immature Reticulocyte Fraction 30.6 % (3.0-15.9); Lymphocytes Absolute Auto 4.85 K/mm3 (0.9-3.2); Lymphocytes Percent Auto 33.6 % (18.3-44.2); Mean Corpuscular HGB Conc 35.1 g/dl (32-36); Mean Corpuscular Hemoglobin 32.1 pg (26-34); Mean Corpuscular Volume 91.4 fl (80-100); Mean Platelet Volume 10.1 fl (7.4-10.4); Monocytes Absolute Auto 1.2 K/mm3 (0.1-0.6); Monocytes Percent Auto 8.2 % (2.6-8.5); Neutrophils Absolute Auto 7.9 K/mm3 (1.3-6.7); Neutrophils Percent Auto 54.5 % (45.5-73.1); Nucleated Red Blood Cells Perc 0.1 % (0.0-0.2); Platelet Count Result 320 k/mm3 (150-375); Red Cell Distribution Width 13.6 % (11.5-14.5); Reticulocyte Hemoglobin Conten 32.1 pg (28.2-35.7); Reticulocyte Percent 4.87 % (0.7-4.3); Reticulocytes Absolute 0.14 B/L (32.2-175.7); White Blood Count 14.4 K/mm3 (4.5-10.0)
[2019-08-03 01:04] LABS: INR 1.1; Prothrombin Time 14.2 Seconds (11.1-14.7)
[2019-08-03 01:09] LABS: Alanine Aminotransferase 22 U/L (4-50); Albumin Level 4.2 g/dL (3.5-5.1); Alkaline Phosphatase 75 U/L (38-126); Aspartate Amino Transferase 42 U/L (17-59); Blood Urea Nitrogen 6 mg/dL (9-20); Calcium 8.7 mg/dL (8.4-10.2); Carbon Dioxide 25 mmol/L (22-30); Chloride 109 mmol/L (98-107); Estimated CRCL calculation 117 ml/min; Estimated Glomerular Filt Rate > 60; Glucose 95 mg/dL (75-110); Potassium 3.9 mmol/L (3.4-5.0); Sodium 140 mmol/L (137-145)
[2019-08-03 01:23] LABS: Platelet Estimate Adequate (Adequate)
[2019-08-03 01:24] LABS: Sickle Cells 1+ (NORMAL); Target Cells 1+ (NORMAL)
[2019-08-03] MEDS: LACTATED RINGERS 1,000 ML 999 ML IV CONT (01:40)
[2019-08-03 03:45] LABS: Amphetamine Screen Urine Negative (Negative); Barbiturate Screen Urine Negative (Negative); Benzodiazepines Screen Urine Negative (Negative); Cannabinoid Screen Urine Negative (Negative); Cocaine Screen Urine Negative (Negative); Methadone Screen Urine Positive (Negative); Opiate Screen Urine Positive (Negative); Phencyclidine Screen Urine Negative (Negative)
[2019-08-03] MEDS: LACTATED RINGERS 1,000 ML 125 ML IV CONT ×3 (04:30→22:00)
--- NOTE | 2019-08-03 04:58 | ADMGEN ---
This patient, Quan Downing, was admitted to 3 Medical Room 346-01. Patient/family oriented to hospital policies and general routines including ID bracelet, bed and alarms, visiting hours, pain management, procedures, bathroom and other care routines, personal items, smoking policy, room service/diet, and visiting hours. Valuables list has been completed. Information on how to activate the Rapid Response Team has been discussed. Patient/Family are encouraged to report perceived risks to care and to ask questions if they do not understand what they are told or what they should do.
[2019-08-03] MEDS: HYDROXYUREA (*CHEMO) 500 MG CAPSULE PO ×2 (08:58→16:17)
[2019-08-03] MEDS: FOLIC ACID 1 MG TABLET PO (08:58)
--- NOTE | 2019-08-03 12:18 | PM.IMHP ---
H&P: HPI History of Present Illness Chief complaint: sickle cell anemia with pain crisis Narrative: Quan Downing is a 34 year old male with sickle cell disease who presented emergency room for worsening pain consistent with sickle cell crisis. Patient states that his leg started hurting a few days ago and he was taking his oxycodone at home which was helping for a little bit. The pain moved into both of his legs, his back, and now his arms. The OxyContin was not cutting it. Since he is been in the hospital, his pain has been 9/10. He says the Dilaudid helps but he is still consistently at a 9/10. As for his warfarin, he says he misses a day or 2 occasionally. He denies nausea, vomiting, coughing, chest pain, shortness of breath, dysuria, abdominal pain, constipation, or diarrhea. His PE was last year and his DVT was in 2011. Review of Systems Review of Systems: All systems reviewed & are unremarkable except as noted in HPI and below PMFSH Past Medical History Medical History Acute chest syndrome Chronic narcotic use Chronic methadone with oxycodone for breakthrough pain. Chronic pain syndrome History of deep vein thrombosis (DVT) of lower extremity History of pulmonary embolism Pulmonary embolism Sickle cell disease, type SC Surgical History Surgical History History of hand surgery Tendon surgery on right 5th finger. Family History Family History (Updated 08/03/19 @ 04:40 by Julia Grimaldo RN) Grandparent Acute myocardial infarction Sibling Asthma Sibling Asthma Mother Hypertension Son Sickle cell trait Daughter Sickle cell trait Grandparent Diabetes mellitus Social History Social History (Updated 07/05/19 @ 23:33 by Kimberlee Santamaria PA-C) Social History: The patient lives in [place] with his family. He is on disability due to sickle cell disease and chronic pain. He designates his mother, Mary Jane Zuniga, as his surrogate decision maker and he wishes to be a full code. He is a lifelong nonsmoker and denies alcohol and drug use. Smoking status: Never smoker Second hand tobacco smoke exposure: Yes Alcohol intake: never Substance use: never Additional occupation/education comments: Gender identity (if verbalized by the patient): Male Spiritual care concerns: No Agree to blood products: Yes Meds Home Medications and Allergies Home Medications Medication Instructions Recorded Confirmed Type folic acid 1 mg PO DAILY 02/16/19 08/03/19 History hydroxyurea [Hydrea] 500 mg PO BID 02/16/19 08/03/19 History methadone [Dolophine] 10 mg PO BID 02/16/19 08/03/19 History oxycodone 7.5 mg PO Q4-6H PRN 02/16/19 08/03/19 History warfarin [Coumadin] 10 mg PO QPM 02/16/19 08/03/19 History Allergies Allergy/AdvReac Type Severity Reaction Status Date / Time Fish Containing Products Allergy Intermediate Itching Verified 08/02/19 23:19 Vital Signs Vital Signs - 24 hr 08/02/19 23:20 08/03/19 01:48 08/03/19 02:11 Temperature 97.7 F 97.7 F Pulse Rate 104 H 86 Respiratory Rate 18 12 Blood Pressure 128/72 127/95 H Pulse Oximetry 95 100 08/03/19 02:30 08/03/19 04:15 08/03/19 04:32 Temperature 97 F L Pulse Rate 75 74 77 Respiratory Rate 11 L 12 16 Blood Pressure 117/82 123/81 133/86 Pulse Oximetry 100 100 95 Exam Narrative: Exam Narrative: General:Well developed well nourished patient HEENT: Normocephalic, atraumatic, PERRL, Sclerae anicteric, oral mucosa moist. Neck: Supple Resp: CTA Heart: RRR with no murmurs Abd: Soft, nontender. No pain to palpation. Positive bowel sounds Skin: Warm and dry Extremities: No swelling, erythema or pain to palpation Neuro: Alert and Oriented x4 . CN 2-12 intact. No focal neurological deficits. H&P: Results Labs Labs: Short CBC 08/03/19 Range/Units 00:37 WBC 14.4 H (4.5-10.0) K/
[2019-08-03] MEDS: ENOXAPARIN 100 MG/ML SYRINGE SUB-Q (14:15)
[2019-08-03] MEDS: WARFARIN (*PBKC) 10 MG TABLET PO (16:17)
[2019-08-03] MEDS: WARFARIN (*PBKC) 2 MG TABLET PO (18:08)
[2019-08-03 19:02] LABS: Lactate Dehydrogenase 536 U/L (313-618)
--- NOTE | 2019-08-03 22:54 | CONS_ITS ---
DATE OF CONSULTATION: 08/03/2019 REASON FOR CONSULTATION: Sickle cell anemia with sickle cell crisis. HISTORY OF PRESENTING ILLNESS: This is a 34-year-old male with history of sickle cell anemia S-C disease with multiple sickle cell crisis episodes. He also has a history of recurrent pulmonary embolism and has been on chronic anticoagulation therapy with warfarin. He came into the hospital with generalized pain, especially in the lower extremities. He was taking methadone 10 mg twice a day with oxycodone at home without much relief. He denies any fevers and chills. Denies any cough and hemoptysis. He denies any diarrhea or dysuria. According to the patient, he has been taking warfarin regularly except he missed a day. REVIEW OF SYSTEMS: 12-point review of systems reviewed and as per HPI, otherwise negative. PAST MEDICAL HISTORY: History of sickle cell SC disease with recurrent sickle cell crisis, chronic narcotic use, chronic pain syndrome, history of DVT and pulmonary embolism. PAST SURGICAL HISTORY: Hand surgery. FAMILY HISTORY: Noncontributory other than son who has sickle cell trait and daughter has sickle cell trait. SOCIAL HISTORY: The patient is . He is a lifelong nonsmoker and denies alcohol and drug use. HOME MEDICATIONS: Reviewed. ALLERGIES: REVIEWED. PHYSICAL EXAMINATION: GENERAL: This patient is a well-developed, well-nourished, male, in no apparent distress, oriented x3. VITAL SIGNS: Per nursing note. HEENT: Normocephalic, atraumatic. Clear oropharynx. LUNGS: Clear to auscultation bilaterally. CARDIOVASCULAR: Regular rate and rhythm. No murmurs. ABDOMEN: Soft, nontender, nondistended. Bowel sounds are positive in all 4 quadrants. No hepatosplenomegaly. EXTREMITIES: No edema. NEUROLOGIC: Grossly intact. LABORATORY DATA: WBC 14.4, hemoglobin 9.3, MCV 91.4, neutrophils 54%, lymphocytes 33%, platelets 320,000, reticulocyte percentage 4.87, INR 1.1. ASSESSMENT AND PLAN: 1. Sickle cell S-C disease with frequent sickle cell crisis episodes. The patient is on methadone 10 mg twice a day at home along with oxycodone. He is also taking hydroxyurea 500 mg b.i.d. He came into the hospital with typical sickle cell crisis flare-ups. He denies any signs of infections. Labs noted. Agree with continuing IV hydration and folic acid 1 mg daily. He will also receive Dilaudid 2 mg IV push for pain control. The patient will also continue hydroxyurea 500 mg b.i.d. 2. Recurrent pulmonary embolism. INR is subtherapeutic. I will increase Coumadin dose to 12 mg daily. Hopefully, the patient will be discharged home in next 24-48 hours. TRACY Bart ALMARAZ M.D. POLE LIFT OPERATOR POLE LIFT OPERATOR D I MT: Becky
[2019-08-04] MEDS: HYDROMORPHONE HCL 1 MG/ML INJ 2 MG IV PUSH ×8 (01:08→23:07)
[2019-08-04] MEDS: ACETAMINOPHEN 325 MG TABLET 650 MG PO ×2 (04:51→20:05)
[2019-08-04 05:08] VITALS: BP 112/58; PULSE 81; RESP 16; TEMP 36.2; O2SAT 95
[2019-08-04] MEDS: LACTATED RINGERS 1,000 ML 125 ML IV CONT ×2 (06:31→16:59)
[2019-08-04] MEDS: ENOXAPARIN 100 MG/ML SYRINGE SUB-Q ×2 (08:01→20:05)
[2019-08-04] MEDS: HYDROXYUREA (*CHEMO) 500 MG CAPSULE PO ×2 (08:01→17:00)
[2019-08-04] MEDS: FOLIC ACID 1 MG TABLET PO (08:01)
[2019-08-04 08:07] LABS: Basophils Absolute Auto 0.1 K/mm3 (0.0-0.1); Basophils Percent Auto 0.4 % (0.2-1.2); Eosinophils Absolute Auto 0.7 K/mm3 (0-0.3); Eosinophils Percent Auto 6.3 % (0-4.4); Hematocrit 29.3 % (42.0-52.0); Hemoglobin 10.4 g/dL (14.0-18.0); Immature Granulocyte Absolute 0.02 K/mm3 (0.00-0.031); Immature Granulocyte Percent A 0.2 % (0-0.5); Immature Platelet Fraction Pct 3.6 % (0.9-11.2); Lymphocytes Absolute Auto 5.68 K/mm3 (0.9-3.2); Mean Corpuscular HGB Conc 35.5 g/dl (32-36); Mean Corpuscular Hemoglobin 32.1 pg (26-34); Mean Corpuscular Volume 90.4 fl (80-100); Mean Platelet Volume 9.7 fl (7.4-10.4); Monocytes Absolute Auto 0.9 K/mm3 (0.1-0.6); Monocytes Percent Auto 7.8 % (2.6-8.5); Neutrophils Absolute Auto 3.8 K/mm3 (1.3-6.7); Neutrophils Percent Auto 34.3 % (45.5-73.1); Nucleated Red Blood Cells Perc 0.2 % (0.0-0.2); Platelet Count Result 355 k/mm3 (150-375); Red Blood Count 3.24 M/mm3 (4.6-6.20); Red Cell Distribution Width 13.5 % (11.5-14.5); White Blood Count 11.1 K/mm3 (4.5-10.0)
[2019-08-04 08:15] LABS: Alanine Aminotransferase 25 U/L (4-50); Albumin Level 3.9 g/dL (3.5-5.1); Alkaline Phosphatase 79 U/L (38-126); Aspartate Amino Transferase 36 U/L (17-59); Bilirubin,Total 0.9 mg/dL (0.2-1.3); Blood Urea Nitrogen 5 mg/dL (9-20); Calcium 8.6 mg/dL (8.4-10.2); Carbon Dioxide 26 mmol/L (22-30); Chloride 107 mmol/L (98-107); Estimated CRCL calculation 151 ml/min; Estimated Glomerular Filt Rate > 60; Glucose 96 mg/dL (75-110); Potassium 3.9 mmol/L (3.4-5.0); Sodium 138 mmol/L (137-145)
[2019-08-04 08:48] LABS: Immature Reticulocyte Fraction 33.8 % (3.0-15.9); Reticulocyte Hemoglobin Conten 30.1 pg (28.2-35.7); Reticulocyte Percent 4.58 % (0.7-4.3); Reticulocytes Absolute 0.14 B/L (32.2-175.7)
[2019-08-04 08:49] LABS: Platelet Estimate Adequate (Adequate)
[2019-08-04 08:50] LABS: Sickle Cells 1+ (NORMAL); Target Cells 2+ (NORMAL)
[2019-08-04 09:03] LABS: INR 1.1; Prothrombin Time 13.4 Seconds (11.1-14.7)
[2019-08-04 14:00] VITALS: BP 114/57; PULSE 77; RESP 16; TEMP 36.3; O2SAT 97
--- NOTE | 2019-08-04 15:05 | PM.IMPN ---
Progress Note: A&P Assessment and Plan (1) Sickle-cell disease with pain: Code(s): D57.00 - Hb-SS disease with crisis, unspecified Status: Acute Assessment and Plan: Pain in VERO legs increasing over last few days, currently controlled with IV dilaudid. Retic count elevated but bilirubin within normal limits. H&H stable. No symptoms concerning for infection. Management per Dr Marks - appreciate recommendations. Hopeful for discharge tomorrow. (2) Subtherapeutic international normalized ratio (INR): Code(s): R79.1 - Abnormal coagulation profile Status: Acute Assessment and Plan: On anticoagulation for history of PE November 2018. INR 1.1. He admits to missing a few doses of Coumadin occasionally. Continue Lovenox bridge with coumadin and monitor INR daily. (3) Chronic narcotic use: Code(s): F11.90 - Opioid use, unspecified, uncomplicated Status: Chronic Assessment and Plan: Wean off IV narcotics as soon as possible. Patient takes methadone and oxycodone at home. Subjective Date/time seen: 08/04/19 1200 Interval history: Mr. Downing is a 34 yo M with frequent sickle cell pain crises. He describes his pain is worst in bilateral legs today. Denies chest pain, shortness of breath, or cough. No abdominal pain, nausea, or vomiting. Review of Systems Review of Systems: Narrative: Twelve systems were reviewed with pertinent positives and negatives as per HPI. Exam Narrative: Exam Narrative: General: Male resting comfortably in bed in no acute distress. HEENT: Normocephalic, EOMI, oral mucosa moist. Cardiovascular: Rate and rhythm are regular. Respiratory: Lungs clear to auscultation all polanco. Non-labored breathing. Abdomen: Soft, non-tender, non-distended, bowel sounds present. Extremities: Peripheral pulses intact. No edema or clubbing. Neuro: No focal neurological deficits. Speech is clear. Objective Data Vital Signs Vital Signs: Vital Signs - 24 hr 08/03/19 21:29 08/04/19 05:08 Temperature 97.2 F L 97.2 F L Pulse Rate 86 81 Respiratory Rate 16 16 Blood Pressure 149/67 H 112/58 L Pulse Oximetry 98 95 Intake/Output Intake/Output: Intake & Output 08/01/19 08/02/19 08/03/19 08/04/19 23:59 23:59 23:59 23:59 Intake Total 5160 2009 Output Total 0 2400 Balance 2860 -390 Meds/Results Medications: Active Medications Generic Name Dose Route Start Last Admin Trade Name Freq PRN Reason Stop Dose Admin Acetaminophen 650 mg 08/04/19 04:43 08/04/19 04:51 Tylenol Tablet PO 650 mg Q6H PRN Administration Mild Pain (1-3) or Fever Enoxaparin Sodium 100 mg 08/03/19 12:50 08/04/19 08:01 Lovenox SUB-Q 100 mg Q12HR CHRISTOPHER Administration Folic Acid 1 mg 08/03/19 09:00 08/04/19 08:01 Folic Acid PO 1 mg DAILY CHRISTOPHER Administration Hydromorphone HCl 2 mg 08/03/19 03:37 08/04/19 14:17 Dilaudid Inj IV PUSH 2 mg Q3HR PRN Administration Pain Rated 7-10 Hydroxyurea 500 mg 08/03/19 09:00 08/04/19 08:01 Hydrea PO 500 mg BID CHRISTOPHER Administration Lactated Ringer's 1,000 mls @ 125 mls/hr 08/03/19 03:35 08/04/19 06:31 Lr - Lactated Ringers Iv IV CONT 125 mls/hr .Q8H CHRISTOPHER Administration Ondansetron HCl 4 mg 08/03/19 03:34 08/03/19 22:01 Zofran Inj IV PUSH 4 mg Q4H PRN Administration Nausea Warfarin Sodium 10 mg 08/03/19 17:00 08/03/19 16:17 Coumadin PO 10 mg DAILY@1700 CHRISTOPHER Administration Warfarin Sodium 2 mg 08/03/19 17:00 08/03/19 18:08 Coumadin PO 2 mg DAILY@1700 CHRISTOPHER Administration Labs Labs: Laboratory Tests 08/04/19 07:57 08/04/19 07:57 Quality VTE Prophylaxis VTE prophylaxis: mechanical ordered
[2019-08-04] MEDS: WARFARIN (*PBKC) 10 MG TABLET PO (17:00)
[2019-08-04] MEDS: WARFARIN (*PBKC) 2 MG TABLET PO (17:00)
[2019-08-04 18:58] LABS: Lactate Dehydrogenase 562 U/L (313-618)
[2019-08-04 21:34] VITALS: BP 110/66; PULSE 82; RESP 16; TEMP 36.7; O2SAT 98
[2019-08-05] MEDS: LACTATED RINGERS 1,000 ML 125 ML IV CONT (01:11)
[2019-08-05] MEDS: HYDROMORPHONE HCL 2 MG/ML VIAL IV PUSH ×7 (02:07→20:28)
[2019-08-05 05:41] VITALS: BP 133/71; PULSE 82; RESP 18; TEMP 36.8; O2SAT 96
[2019-08-05 07:17] LABS: Basophils Absolute Auto 0.1 K/mm3 (0.0-0.1); Basophils Percent Auto 0.9 % (0.2-1.2); Eosinophils Absolute Auto 0.6 K/mm3 (0-0.3); Eosinophils Percent Auto 7.6 % (0-4.4); Hemoglobin 9.8 g/dL (14.0-18.0); Immature Granulocyte Absolute 0.01 K/mm3 (0.00-0.031); Immature Granulocyte Percent A 0.1 % (0-0.5); Immature Platelet Fraction Pct 3.5 % (0.9-11.2); Immature Reticulocyte Fraction 29.5 % (3.0-15.9); Lymphocytes Absolute Auto 4.02 K/mm3 (0.9-3.2); Lymphocytes Percent Auto 51.1 % (18.3-44.2); Mean Corpuscular Hemoglobin 31.8 pg (26-34); Mean Corpuscular Volume 90.9 fl (80-100); Mean Platelet Volume 10.2 fl (7.4-10.4); Monocytes Absolute Auto 0.7 K/mm3 (0.1-0.6); Monocytes Percent Auto 8.4 % (2.6-8.5); Neutrophils Absolute Auto 2.5 K/mm3 (1.3-6.7); Neutrophils Percent Auto 31.9 % (45.5-73.1); Nucleated Red Blood Cells Perc 0.5 % (0.0-0.2); Platelet Count Result 336 k/mm3 (150-375); Red Blood Count 3.08 M/mm3 (4.6-6.20); Red Cell Distribution Width 13.6 % (11.5-14.5); Reticulocyte Hemoglobin Conten 32.6 pg (28.2-35.7); Reticulocyte Percent 6.36 % (0.7-4.3); White Blood Count 7.9 K/mm3 (4.5-10.0)
[2019-08-05 07:25] LABS: INR 1.4; Prothrombin Time 16.6 Seconds (11.1-14.7)
[2019-08-05 07:27] LABS: Blood Urea Nitrogen 6 mg/dL (9-20); Calcium 8.6 mg/dL (8.4-10.2); Carbon Dioxide 27 mmol/L (22-30); Chloride 106 mmol/L (98-107); Estimated CRCL calculation 151 ml/min; Estimated Glomerular Filt Rate > 60; Glucose 113 mg/dL (75-110); Potassium 3.8 mmol/L (3.4-5.0); Sodium 138 mmol/L (137-145)
[2019-08-05 07:48] LABS: Ovalocytes 1+ (NORMAL); Platelet Estimate Adequate (Adequate); Sickle Cells 1+ (NORMAL); Target Cells 2+ (NORMAL)
[2019-08-05] MEDS: ENOXAPARIN 100 MG/ML SYRINGE SUB-Q (08:14)
[2019-08-05] MEDS: HYDROXYUREA (*CHEMO) 500 MG CAPSULE PO ×2 (08:14→16:43)
[2019-08-05] MEDS: FOLIC ACID 1 MG TABLET PO (08:14)
[2019-08-05 09:52] VITALS: O2SAT 95
--- NOTE | 2019-08-05 13:51 | PM.IMPN ---
Progress Note: A&P Assessment and Plan (1) Sickle-cell disease with pain: Code(s): D57.00 - Hb-SS disease with crisis, unspecified Status: Acute Assessment and Plan: Pain in VERO legs increasing over last few days, currently controlled with IV dilaudid. Retic count elevated but bilirubin within normal limits. H&H stable. No symptoms concerning for infection. Management per Dr Marks - appreciate recommendations. Hopeful for discharge tomorrow. (2) Subtherapeutic international normalized ratio (INR): Code(s): R79.1 - Abnormal coagulation profile Status: Acute Assessment and Plan: On anticoagulation for history of PE November 2018. INR 1.4. He admits to missing a few doses of Coumadin occasionally. Continue Lovenox bridge with coumadin and monitor INR daily. (3) Chronic narcotic use: Code(s): F11.90 - Opioid use, unspecified, uncomplicated Status: Chronic Assessment and Plan: Wean off IV narcotics as soon as possible. Patient takes methadone and oxycodone at home. Subjective Date/time seen: 08/05/19 13:00 Interval history: Mr. Downing is a 34 yo M with frequent sickle cell pain crises. He describes his pain is worst in back and ribs today. Denies chest pain, shortness of breath, or cough. No abdominal pain, nausea, or vomiting. Review of Systems Review of Systems: Narrative: Twelve systems were reviewed with pertinent positives and negatives as per HPI. Exam Narrative: Exam Narrative: General: Male resting comfortably in bed in no acute distress. HEENT: Normocephalic, EOMI, oral mucosa moist. Cardiovascular: Rate and rhythm are regular. Respiratory: Lungs clear to auscultation all polanco. Non-labored breathing. Abdomen: Soft, non-tender, non-distended, bowel sounds present. Extremities: Peripheral pulses intact. No edema or clubbing. Neuro: No focal neurological deficits. Speech is clear. Objective Data Vital Signs Vital Signs: Vital Signs - 24 hr 08/04/19 14:00 08/04/19 21:34 08/05/19 05:41 Temperature 97.4 F L 98.1 F 98.2 F Pulse Rate 77 82 82 Respiratory Rate 16 16 18 Blood Pressure 114/57 L 110/66 133/71 Pulse Oximetry 97 98 96 08/05/19 09:52 Temperature Pulse Rate Respiratory Rate Blood Pressure Pulse Oximetry 95 Intake/Output Intake/Output: Intake & Output 08/02/19 08/03/19 08/04/19 08/05/19 23:59 23:59 23:59 23:59 Intake Total 5160 3800 3020 Output Total 2300 4100 1900 Balance 2860 -300 1120 Meds/Results Medications: Active Medications Generic Name Dose Route Start Last Admin Trade Name Freq PRN Reason Stop Dose Admin Acetaminophen 650 mg 08/04/19 04:43 08/04/19 20:05 Tylenol Tablet PO 650 mg Q6H PRN Administration Mild Pain (1-3) or Fever Enoxaparin Sodium 100 mg 08/03/19 12:50 08/05/19 08:14 Lovenox SUB-Q 100 mg Q12HR CHRISTOPHER Administration Folic Acid 1 mg 08/03/19 09:00 08/05/19 08:14 Folic Acid PO 1 mg DAILY CHRISTOPHER Administration Hydromorphone HCl 2 mg 08/05/19 00:59 08/05/19 11:17 Dilaudid Inj IV PUSH 2 mg Q3HR PRN Administration Pain Rated 7-10 Hydroxyurea 500 mg 08/03/19 09:00 08/05/19 08:14 Hydrea PO 500 mg BID CHRISTOPHER Administration Ondansetron HCl 4 mg 08/03/19 03:34 08/03/19 22:01 Zofran Inj IV PUSH 4 mg Q4H PRN Administration Nausea Warfarin Sodium 10 mg 08/03/19 17:00 08/04/19 17:00 Coumadin PO 10 mg DAILY@1700 CHRISTOPHER Administration Warfarin Sodium 2 mg 08/03/19 17:00 08/04/19 17:00 Coumadin PO 2 mg DAILY@1700 CHRISTOPHER Administration Labs Labs: Laboratory Tests 08/05/19 06:57 08/05/19 06:57 Quality VTE Prophylaxis VTE prophylaxis: pharmacologic ordered (Warfarin and Lovenox bridge)
[2019-08-05 14:00] VITALS: BP 118/78; PULSE 88; RESP 20; TEMP 36.7; O2SAT 100
[2019-08-05] MEDS: WARFARIN (*PBKC) 10 MG TABLET PO (16:42)
[2019-08-05] MEDS: WARFARIN (*PBKC) 2 MG TABLET PO (16:43)
--- NOTE | 2019-08-05 17:22 | WPDONCPN ---
Progress Note: A/P - Additional Plan Sickle cell anemia with sickle cell crisis. Labs noted. Hemoglobin is stable. Clinically he is improving and pain is getting under better control. Hopefully he will be able to go home in the morning. Patient will resume hydroxyurea as an outpatient. Recurrent pulmonary embolism. Coumadin dose has been increased to 12 mg daily with improvement in INR. - Time Spent With Patient Total time spent is greater than 50% in coordination of care (as documented) at patient's floor/unit and/or counseling patient: 15 - 25 minutes Subjective Interval history: Sickle cell crisis Recurrent pulmonary embolism Review of Systems - Review of Systems Patient looks comfortable today. He has some chest discomfort. He denies any bleeding and bruising. Denies any fevers and chills. No other new complaints. - Neurologic Denies weakness Exam Vital signs: Temp Pulse Resp BP Pulse Ox 36.7 C 88 20 118/78 100 08/05/19 14:00 08/05/19 14:00 08/05/19 14:00 08/05/19 14:00 08/05/19 14:00 Narrative: Lungs are clear to auscultation bilaterally Cardiovascular regular rate rhythm no murmurs Abdomen soft nontender nondistended Extremities no edema PN: Objective Data - Labs CBC & Chem 7: 08/05/19 06:57 08/05/19 06:57 Labs: Laboratory Results - last 24 hr 08/04/19 08/05/19 08/05/19 18:41 06:57 06:57 WBC 7.9 RBC 3.08 L Hgb 9.8 L Hct 28.0 L MCV 90.9 MCH 31.8 MCHC 35.0 RDW 13.6 Plt Count 336 MPV 10.2 Immature Gran % (Auto) 0.1 Neut % (Auto) 31.9 L Lymph % (Auto) 51.1 H [place] % (Auto) 8.4 Eos % (Auto) 7.6 H Baso % (Auto) 0.9 Lymph # (Auto) 4.02 H [place] # (Auto) 0.7 H Eos # (Auto) 0.6 H Baso # (Auto) 0.1 Abs Immat Gran (auto) 0.01 Absolute Neuts (auto) 2.5 Absolute Nucleated RBC 0.0 Nucleated RBC % 0.5 H Platelet Estimate Adequate % Immature Plt Fraction 3.5 Sickle Cells 1+ Target Cells 2+ Ovalocytes 1+ Absolute Retic 0.20 L Percent Retic 6.36 H Immature Retic Fraction 29.5 H Retic Hgb Content 32.6 PT 16.6 H D INR 1.4 Sodium Potassium Chloride Carbon Dioxide BUN Creatinine Estim Creat Clear Calc Estimated GFR Glucose Calcium Lactate Dehydrogenase 562 08/05/19 06:57 WBC RBC Hgb Hct MCV MCH MCHC RDW Plt Count MPV Immature Gran % (Auto) Neut % (Auto) Lymph % (Auto) [place] % (Auto) Eos % (Auto) Baso % (Auto) Lymph # (Auto) [place] # (Auto) Eos # (Auto) Baso # (Auto) Abs Immat Gran (auto) Absolute Neuts (auto) Absolute Nucleated RBC Nucleated RBC % Platelet Estimate % Immature Plt Fraction Sickle Cells Target Cells Ovalocytes Absolute Retic Percent Retic Immature Retic Fraction Retic Hgb Content PT INR Sodium 138 Potassium 3.8 Chloride 106 Carbon Dioxide 27 BUN 6 L Creatinine 0.70 Estim Creat Clear Calc 151 Estimated GFR > 60 Glucose 113 H Calcium 8.6 Lactate Dehydrogenase
[2019-08-05 19:27] LABS: Lactate Dehydrogenase 578 U/L (313-618)
[2019-08-05 20:00] VITALS: BP 113/62; PULSE 80; RESP 18; TEMP 36.5; O2SAT 97
[2019-08-05 20:30] VITALS: PULSE 80; RESP 18; O2SAT 97
[2019-08-06] MEDS: HYDROMORPHONE HCL 2 MG/ML VIAL IV PUSH ×10 (01:40→23:27)
[2019-08-06 04:00] VITALS: BP 117/77; PULSE 86; RESP 18; TEMP 36.2; O2SAT 100
[2019-08-06 06:26] LABS: Basophils Absolute Auto 0.1 K/mm3 (0.0-0.1); Basophils Percent Auto 0.8 % (0.2-1.2); Eosinophils Absolute Auto 0.6 K/mm3 (0-0.3); Eosinophils Percent Auto 5.9 % (0-4.4); Hematocrit 31.4 % (42.0-52.0); Hemoglobin 11.1 g/dL (14.0-18.0); Immature Granulocyte Absolute 0.02 K/mm3 (0.00-0.031); Immature Granulocyte Percent A 0.2 % (0-0.5); Lymphocytes Absolute Auto 4.84 K/mm3 (0.9-3.2); Lymphocytes Percent Auto 50.7 % (18.3-44.2); Mean Corpuscular HGB Conc 35.4 g/dl (32-36); Mean Corpuscular Hemoglobin 31.8 pg (26-34); Mean Platelet Volume 10.2 fl (7.4-10.4); Monocytes Absolute Auto 0.8 K/mm3 (0.1-0.6); Monocytes Percent Auto 8.5 % (2.6-8.5); Neutrophils Absolute Auto 3.2 K/mm3 (1.3-6.7); Neutrophils Percent Auto 33.9 % (45.5-73.1); Nucleated Red Blood Cells Perc 0.4 % (0.0-0.2); Platelet Count Result 367 k/mm3 (150-375); Red Blood Count 3.49 M/mm3 (4.6-6.20); Red Cell Distribution Width 13.3 % (11.5-14.5); White Blood Count 9.6 K/mm3 (4.5-10.0)
[2019-08-06 06:35] LABS: INR 1.5; Prothrombin Time 17.5 Seconds (11.1-14.7)
[2019-08-06 06:42] LABS: Alanine Aminotransferase 35 U/L (4-50); Albumin Level 4.3 g/dL (3.5-5.1); Alkaline Phosphatase 83 U/L (38-126); Aspartate Amino Transferase 53 U/L (17-59); Bilirubin,Total 0.9 mg/dL (0.2-1.3); Blood Urea Nitrogen 7 mg/dL (9-20); Calcium 9.1 mg/dL (8.4-10.2); Carbon Dioxide 27 mmol/L (22-30); Chloride 105 mmol/L (98-107); Estimated CRCL calculation 151 ml/min; Estimated Glomerular Filt Rate > 60; Glucose 97 mg/dL (75-110); Potassium 4.2 mmol/L (3.4-5.0); Sodium 120 mmol/L (137-145)
[2019-08-06 09:09] LABS: Blood Urea Nitrogen 7 mg/dL (9-20); Carbon Dioxide 27 mmol/L (22-30); Chloride 106 mmol/L (98-107); Estimated CRCL calculation 174 ml/min; Estimated Glomerular Filt Rate > 60; Glucose 104 mg/dL (75-110); Sodium 138 mmol/L (137-145)
[2019-08-06] MEDS: FOLIC ACID 1 MG TABLET PO (09:23)
[2019-08-06] MEDS: HYDROXYUREA (*CHEMO) 500 MG CAPSULE PO ×2 (09:23→17:15)
[2019-08-06] MEDS: ENOXAPARIN 100 MG/ML SYRINGE SUB-Q (09:23)
--- NOTE | 2019-08-06 09:58 | PC.NURSE ---
Patient states his pain in his back is worse today. He requests that I call his physician and request an increased frequency to his pain medication. Called and spoke with Dr. Marks. Orders received to increase pain meds to 2-3 hours prn.
--- NOTE | 2019-08-06 13:15 | PM.IMPN ---
Progress Note: A&P Assessment and Plan (1) Sickle-cell disease with pain: Code(s): D57.00 - Hb-SS disease with crisis, unspecified Status: Acute Assessment and Plan: Pain in VERO legs increasing over last few days, currently controlled with IV dilaudid. Retic count elevated but bilirubin within normal limits. H&H stable. No symptoms concerning for infection. Management per Dr Marks - appreciate recommendations. Increased pain today. (2) Subtherapeutic international normalized ratio (INR): Code(s): R79.1 - Abnormal coagulation profile Status: Acute Assessment and Plan: On anticoagulation for history of PE November 2018. INR 1.5. He admits to missing a few doses of Coumadin occasionally. Continue Lovenox bridge with coumadin and monitor INR daily. (3) Chronic narcotic use: Code(s): F11.90 - Opioid use, unspecified, uncomplicated Status: Chronic Assessment and Plan: Wean off IV narcotics as soon as possible. Patient takes methadone and oxycodone at home. Subjective Date/time seen: 08/06/19 13:00 Interval history: Mr. Downing is a 34 yo M with frequent sickle cell pain crises. He describes his pain is worst in back and ribs today. Denies chest pain, shortness of breath, or cough. No abdominal pain, nausea, or vomiting. Exam Narrative: Exam Narrative: General: Male resting comfortably in bed in no acute distress. HEENT: Normocephalic, EOMI, oral mucosa moist. Cardiovascular: Rate and rhythm are regular. Respiratory: Lungs clear to auscultation all polanco. Non-labored breathing. Abdomen: Soft, non-tender, non-distended, bowel sounds present. Extremities: Peripheral pulses intact. No edema or clubbing. Neuro: No focal neurological deficits. Speech is clear. Objective Data Vital Signs Vital Signs: Vital Signs - 24 hr 08/05/19 14:00 08/05/19 20:00 08/05/19 20:30 Temperature 98.1 F 97.7 F Pulse Rate 88 80 80 Respiratory Rate 20 18 18 Blood Pressure 118/78 113/62 Pulse Oximetry 100 97 97 08/06/19 04:00 Temperature 97.2 F L Pulse Rate 86 Respiratory Rate 18 Blood Pressure 117/77 Pulse Oximetry 100 Intake/Output Intake/Output: Intake & Output 08/03/19 08/04/19 08/05/19 08/06/19 23:59 23:59 23:59 23:59 Intake Total 5160 3800 4360 980 Output Total 2300 4100 4100 1425 Balance 2860 300 260 -750 Meds/Results Medications: Active Medications Generic Name Dose Route Start Last Admin Trade Name Freq PRN Reason Stop Dose Admin Acetaminophen 650 mg 08/04/19 04:43 08/04/19 20:05 Tylenol Tablet PO 650 mg Q6H PRN Administration Mild Pain (1-3) or Fever Diphenhydramine HCl 50 mg 08/05/19 18:13 08/05/19 18:56 Benadryl Cap PO 50 mg Q6H PRN Administration Itching Enoxaparin Sodium 100 mg 08/03/19 12:50 08/06/19 09:23 Lovenox SUB-Q 100 mg Q12HR CHRISTOPHER Administration Folic Acid 1 mg 08/03/19 09:00 08/06/19 09:23 Folic Acid PO 1 mg DAILY CHRISTOPHER Administration Hydromorphone HCl 2 mg 08/06/19 09:58 08/06/19 12:41 Dilaudid Inj IV PUSH 2 mg Q2-3H PRN Administration Pain Rated 7-10 Hydroxyurea 500 mg 08/03/19 09:00 08/06/19 09:23 Hydrea PO 500 mg BID CHRISTOPHER Administration Ondansetron HCl 4 mg 08/03/19 03:34 08/03/19 22:01 Zofran Inj IV PUSH 4 mg Q4H PRN Administration Nausea Warfarin Sodium 10 mg 08/03/19 17:00 08/05/19 16:42 Coumadin PO 10 mg DAILY@1700 CHRISTOPHER Administration Warfarin Sodium 2 mg 08/03/19 17:00 08/05/19 16:43 Coumadin PO 2 mg DAILY@1700 [facility] Administration Labs Labs: Laboratory Tests 08/06/19 05:29 08/06/19 08:43 Quality VTE Prophylaxis VTE prophylaxis: pharmacologic ordered (Warfarin and Lovenox bridge)
[2019-08-06 14:00] VITALS: BP 128/69; PULSE 91; RESP 12; TEMP 36.3; O2SAT 98
[2019-08-06] MEDS: WARFARIN (*PBKC) 10 MG TABLET PO (17:15)
[2019-08-06] MEDS: WARFARIN (*PBKC) 2 MG TABLET PO (17:15)
[2019-08-06 22:40] VITALS: PULSE 91; RESP 12; O2SAT 98
[2019-08-07] MEDS: HYDROMORPHONE HCL 2 MG/ML VIAL IV PUSH ×5 (01:31→10:19)
[2019-08-07 05:16] LABS: Basophils Absolute Auto 0.1 K/mm3 (0.0-0.1); Basophils Percent Auto 0.7 % (0.2-1.2); Eosinophils Absolute Auto 0.6 K/mm3 (0-0.3); Eosinophils Percent Auto 5.2 % (0-4.4); Hematocrit 30.6 % (42.0-52.0); Hemoglobin 11.1 g/dL (14.0-18.0); Immature Granulocyte Absolute 0.02 K/mm3 (0.00-0.031); Immature Granulocyte Percent A 0.2 % (0-0.5); Lymphocytes Percent Auto 47.7 % (18.3-44.2); Mean Corpuscular HGB Conc 36.3 g/dl (32-36); Mean Corpuscular Hemoglobin 32.5 pg (26-34); Mean Corpuscular Volume 89.5 fl (80-100); Mean Platelet Volume 9.7 fl (7.4-10.4); Monocytes Absolute Auto 0.9 K/mm3 (0.1-0.6); Monocytes Percent Auto 8.3 % (2.6-8.5); Neutrophils Percent Auto 37.9 % (45.5-73.1); Nucleated Red Blood Cells Perc 0.3 % (0.0-0.2); Platelet Count Result 367 k/mm3 (150-375); Red Blood Count 3.42 M/mm3 (4.6-6.20); Red Cell Distribution Width 13.6 % (11.5-14.5); White Blood Count 10.5 K/mm3 (4.5-10.0)
[2019-08-07 05:25] LABS: Lactate Dehydrogenase 668 U/L (313-618)
[2019-08-07 05:28] LABS: INR 1.7; Prothrombin Time 19.6 Seconds (11.1-14.7)
[2019-08-07 06:00] VITALS: BP 102/64; PULSE 79; RESP 16; TEMP 36.1; O2SAT 99
[2019-08-07] MEDS: HYDROXYUREA (*CHEMO) 500 MG CAPSULE PO (08:23)
[2019-08-07] MEDS: FOLIC ACID 1 MG TABLET PO (08:23)
[2019-08-07] MEDS: ENOXAPARIN 100 MG/ML SYRINGE SUB-Q (08:23)
--- NOTE | 2019-08-07 11:20 | PM.DS ---
DS: Diagnosis Admitting Diagnosis Admitting Diagnosis: Hb-SS disease with crisis, unspecified Discharge Diagnosis (1) Sickle-cell disease with pain: Code(s): D57.00 - Hb-SS disease with crisis, unspecified Status: Acute Assessment and Plan: Date of Service 08/07/19 Mr. Downing is a 34yo gentleman well-known to our hospitalist service due to frequent sickle cell pain crises. He presented 08/02/19 to the ED with worsening pain in his legs not relieved by his home pain regimen which includes oxycodone and methadone. His geriatric physician, Dr Marks, was consulted and managed his pain regimen with IV dilaudid for breakthrough pain. Patient noted improvement in his pain, but requested dilaudid frequency to increase. 08/07 his dilaudid frequency was increased by hematology and patient requested discharge later that afternoon. I discussed with him that pain severe enough to require increased IV narcotics was not consistent with a discharge same day, patient agreed to stay overnight and was agreeable for discharge 08/07/19. He was hemodynamically stable and appeared comfortable, stating his pain was improved. He remains on hydrea and folic acid as well. Patient has history of DVT and diagnosed with PE November 2018, maintained on anticoagulation with Warfarin. Subtherapeutic INR here was treated with Lovenox bridge, which is common for his admissions. Dr Marks increased his Warfarin to 12mg PO daily. Mr Downing admitted he sometimes misses doses of Warfarin. Again discussed the importance of taking this medication. At time of this dictation for discharge 08/07/19, it is noted that patient has returned and currently readmitted. Pain in VERO legs increasing over last few days, currently controlled with IV dilaudid. Retic count elevated but bilirubin within normal limits. H&H stable. No symptoms concerning for infection. Management per Dr Marsk - appreciate recommendations. (2) Subtherapeutic international normalized ratio (INR): Code(s): R79.1 - Abnormal coagulation profile Status: Acute Assessment and Plan: On anticoagulation for history of PE November 2018. Dr Marks increased warfarin to 12 mg PO daily. He admits to missing a few doses of Coumadin occasionally. Continue Lovenox bridge with coumadin and monitor INR daily. (3) Chronic narcotic use: Code(s): F11.90 - Opioid use, unspecified, uncomplicated Status: Chronic Assessment and Plan: Patient takes methadone and oxycodone at home. DS: Summary Time Spent with Patient Time attestation: Total time spent providing and/or coordinating discharge services: 40 minutes Exam Narrative: Exam Narrative: General: Male resting comfortably in bed in no acute distress, watching a movie on his laptop. HEENT: Normocephalic, EOMI, oral mucosa moist. Cardiovascular: Rate and rhythm are regular. Respiratory: Lungs clear to auscultation all polanco. Non-labored breathing. Abdomen: Soft, non-tender, non-distended, bowel sounds present. Extremities: Peripheral pulses intact. No edema or clubbing. Neuro: No focal neurological deficits. Speech is clear. Discharge Plan Discharge Attending physician on discharge: Gildardo Gutierrez Consulting providers: Jone Marks Discharging Clinician: Idalia Castañeda Anticipated Discharge Date/Time: 08/07/19 09:30 Patient Disposition: Home, Self-Care Activity: as tolerated Diet: as tolerated Discharge Instructions: Call to schedule a follow up appointment with Dr Marks. Repeat blood work in 1 week to check your INR level for warfarin dosing. Return to ER for any worsening or concerning symptoms. In light of the current Coronovirus spread, is recommended that you call your primary care provider if you begin to develop shortness of breath, cough, or fevers > 100.4 F.
== END 2019-08-07 11:43 | disposition home or self-care (01) ==
LOC: ANHED 08-03 03:34 → ANH3MED 08-03 04:55
PROVIDERS: Physician Assistant; Admitting Provider Internal Medicine; Emergency Provider General Practice; PCP Internal Medicine Hematology & Oncology; Visit Provider Physician Assistant
DX: D57.219 Sickle-cell/Hb-C disease with crisis, unspecified (principal); R79.1 Abnormal coagulation profile; G89.4 Chronic pain syndrome; F11.90 Opioid use, unspecified, uncomplicated; Z79.01 Long term (current) use of anticoagulants; Z86.711 Personal history of pulmonary embolism; Z86.718 Personal history of other venous thrombosis and embolism
CPT/HCPCS: 36415; 80048; 80053; 80076; 80307; 83615; 85025; 85046; 85055; 85610; 85730; 96361; 96365; 96372; 96374; 96375; 96376; 99285; A9270; G0378; G0379; J0131; J1170; J1650; J2405; J7030; J7120

== ENCOUNTER 2019-08-08 21:16 | Inpatient (IN) | payer OTHER, SELFPAY ==
[2019-08-08] VITALS (9 sets, daily range): BP systolic 118–129; BP diastolic 72–86; PULSE 85–100; RESP 12–20; TEMP 36.3; O2SAT 97–100
--- NOTE | ~2019-08-08 | XR_ITS ---
EXAMINATION: XR chest 1V portable INDICATION: Chest pain, sickle cell disease TECHNIQUE: Portable AP chest at 2004 hours COMPARISON: 06/11/2019 FINDINGS: There is chronic scarring of the lung bases. The lungs are free of acute opacities. There i s no pleural effusion or pneumothorax. The cardiomediastinal silhouette is normal. IMPRESSION: 1. Chronic scarring of the lung bases. No acute cardiopulmonary abnormality. Reviewed, dictated and finalized at location A.
--- NOTE | 2019-08-08 21:34 | ECG_ITS ---
Measurements Intervals [place] Rate: 92 P: 17 MS: 170 QRS: 11 QRSD: 91 T: 5 QT: 328 QTc: 407 Interpretive Statements SINUS RHYTHM BORDERLINE T WAVE ABNORMALITY- DIFFUSE LEADS BORDERLINE ECG Electronically Signed On 08-09-2019 8:34:17 CDT by Ricky Modi D.O.
--- NOTE | 2019-08-08 21:38 | ED.GENADULT ---
HPI - General Adult General Chief complaint: Unspecified <Elda Marr MD - Last Filed: 08/08/19 23:04> Stated complaint: recurrent sickle cell crisis <Elda Marr MD - Last Filed: 08/08/19 23:04> Time Seen by Provider: 08/08/19 21:30 <Elda Marr MD - Last Filed: 08/08/19 23:04> History of Present Illness HPI narrative: Patient presents with sickle cell crisis. Started this week, and he was admitted for a couple of days here. He says that he left too soon and his pain is not yet under control. He says primarily in his entire back, but also in both of his legs. He rates it an 8 out of 10. His home meds are OxyContin and methadone. These are not helping. When he comes to the hospital he gets Dilaudid 2 mg IV. He denies illness, particularly cough fever chills or sweats. His appetite is good. His bowels are normal. <Elda Marr MD - Last Filed: 08/08/19 23:04> Onset (ago): day(s) <Elda Marr MD - Last Filed: 08/08/19 23:04> Location: back and lower extremity <Elda Marr MD - Last Filed: 08/08/19 23:04> Radiation: non-radiation <Elda Marr MD - Last Filed: 08/08/19 23:04> Severity: severe <Elda Marr MD - Last Filed: 08/08/19 23:04> Severity scale (1-10): 8 <Elda Marr MD - Last Filed: 08/08/19 23:04> Quality: aching <Elda Marr MD - Last Filed: 08/08/19 23:04> Pain Consistency: constant <Elda Marr MD - Last Filed: 08/08/19 23:04> Related Data Home medications: Home Medications Medication Instructions Recorded Confirmed folic acid 1 mg PO DAILY 02/16/19 08/03/19 hydroxyurea [Hydrea] 500 mg PO BID 02/16/19 08/03/19 methadone [Dolophine] 10 mg PO BID 02/16/19 08/03/19 oxycodone 7.5 mg PO Q4-6H PRN 02/16/19 08/03/19 <Elda Marr MD - Last Filed: 08/08/19 23:04> Allergies/adverse reactions: Allergies Allergy/AdvReac Type Severity Reaction Status Date / Time Fish Containing Products Allergy Intermediate Itching Verified 08/08/19 21:27 <Elda Marr MD - Last Filed: 08/08/19 23:04> Review of Systems Review of Systems: Narrative: CONSTITUTIONAL: Denies fever, chills, or sweats. EYES: Denies visual changes, redness, or discharge. ENT: Denies rhinorrhea, congestion, sore throat, or otalgia. CARDIOVASCULAR: Denies chest pain, palpitations, or edema. RESPIRATORY: Denies cough or dyspnea. GASTROINTESTINAL: Denies abdominal pain, nausea, vomiting, or diarrhea. GENITOURINARY: Denies dysuria or hematuria. SKIN: Denies rash or itching. MUSCULOSKELETAL: The pain in his back is 8/10 and the legs are 7/10. NEUROLOGIC: Denies headache, numbness, or weakness. PSYCHIATRIC: Denies anxiety or depression. <Elda Marr MD - Last Filed: 08/08/19 23:04> All systems reviewed & are unremarkable except as noted in HPI and below <Elda Marr MD - Last Filed: 08/08/19 23:04> PMFSH Past Medical History Medical History: Medical History Acute chest syndrome Chronic narcotic use Chronic methadone with oxycodone for breakthrough pain. Chronic pain syndrome History of deep vein thrombosis (DVT) of lower extremity History of pulmonary embolism Pulmonary embolism Sickle cell disease, type SC <Elda Marr MD - Last Filed: 08/08/19 23:04> Surgical History Surgical History: Surgical History History of hand surgery Tendon surgery on right 5th finger. <lEda Marr MD - Last Filed: 08/08/19 23:04> Family History Family History: Family History Grandparent Acute myocardial infarction Sibling Asthma Sibling Asthma Mother Hypertension Son Sickle cell trait Daughter Sickle cell trait Grandparent Diabetes mellitus <Elda Marr MD - Last Filed: 08/08/19 23:04> Social History Social History: Social H
[2019-08-08] MEDS: SODIUM CHLORIDE 0.9% IV 1,000 ML 999 ML IV CONT (21:59)
[2019-08-08] MEDS: HYDROMORPHONE HCL 1 MG/ML INJ 2 MG IV PUSH ×2 (21:59→23:02)
[2019-08-08 22:10] LABS: Basophils Absolute Auto 0.1 K/mm3 (0.0-0.1); Basophils Percent Auto 0.5 % (0.2-1.2); Eosinophils Absolute Auto 0.2 K/mm3 (0-0.3); Eosinophils Percent Auto 2.1 % (0-4.4); Hematocrit 30.8 % (42.0-52.0); Immature Granulocyte Absolute 0.02 K/mm3 (0.00-0.031); Immature Granulocyte Percent A 0.2 % (0-0.5); Immature Platelet Fraction Pct 3.4 % (0.9-11.2); Immature Reticulocyte Fraction 29.3 % (3.0-15.9); Lymphocytes Absolute Auto 5.45 K/mm3 (0.9-3.2); Lymphocytes Percent Auto 49.2 % (18.3-44.2); Mean Corpuscular HGB Conc 35.7 g/dl (32-36); Mean Corpuscular Hemoglobin 32.6 pg (26-34); Mean Corpuscular Volume 91.4 fl (80-100); Mean Platelet Volume 10.1 fl (7.4-10.4); Monocytes Absolute Auto 0.8 K/mm3 (0.1-0.6); Monocytes Percent Auto 6.8 % (2.6-8.5); Neutrophils Absolute Auto 4.6 K/mm3 (1.3-6.7); Neutrophils Percent Auto 41.2 % (45.5-73.1); Nucleated Red Blood Cells Absolute Auto 0.1 K/mm3 (0.0-0.012); Nucleated Red Blood Cells Perc 0.5 % (0.0-0.2); Platelet Count Result 383 k/mm3 (150-375); Red Blood Count 3.37 M/mm3 (4.6-6.20); Reticulocyte Hemoglobin Conten 35.8 pg (28.2-35.7); Reticulocyte Percent 4.69 % (0.7-4.3); Reticulocytes Absolute 0.16 B/L (32.2-175.7); White Blood Count 11.1 K/mm3 (4.5-10.0)
[2019-08-08 22:22] LABS: Alanine Aminotransferase 36 U/L (4-50); Albumin Level 4.8 g/dL (3.5-5.1); Alkaline Phosphatase 86 U/L (38-126); Aspartate Amino Transferase 43 U/L (17-59); Bilirubin,Total 0.9 mg/dL (0.2-1.3); Blood Urea Nitrogen 8 mg/dL (9-20); Calcium 9.3 mg/dL (8.4-10.2); Carbon Dioxide 26 mmol/L (22-30); Chloride 108 mmol/L (98-107); Estimated Glomerular Filt Rate > 60; Glucose 96 mg/dL (75-110); Sodium 142 mmol/L (137-145)
[2019-08-08 22:31] LABS: Anisocytosis 3+ (NORMAL)
[2019-08-08 22:33] LABS: Sickle Cells 1+ (NORMAL); Target Cells 1+ (NORMAL)
--- NOTE | 2019-08-08 23:46 | PC.NURSE ---
called lab to add on PT INR, PTT
[2019-08-09] VITALS (7 sets, daily range): BP systolic 110–125; BP diastolic 65–87; PULSE 72–93; RESP 14–19; TEMP 36.4–36.7; O2SAT 97–100; BMI 32.7
[2019-08-09] MEDS: KETOROLAC 30 MG/ML VIAL (*BKC) IV PUSH (00:01)
[2019-08-09 00:02] LABS: INR 1.5; Prothrombin Time 17.8 Seconds (11.1-14.7)
[2019-08-09 00:03] LABS: Partial Thromboplastin Time 30.5 SECONDS (22.3-36.8)
[2019-08-09] MEDS: LACTATED RINGERS 1,000 ML 999 ML IV CONT (00:52)
[2019-08-09] MEDS: HYDROMORPHONE HCL 1 MG/ML INJ 2 MG IV PUSH ×5 (00:52→22:30)
--- NOTE | 2019-08-09 02:16 | ADMGEN ---
This patient, Quan Downing, was admitted to [facility] Surg Room 307-01. Patient/family oriented to hospital policies and general routines including ID bracelet, bed and alarms, visiting hours, pain management, procedures, bathroom and other care routines, personal items, smoking policy, room service/diet, and visiting hours. Valuables list has been completed. Information on how to activate the Rapid Response Team has been discussed. Patient/Family are encouraged to report perceived risks to care and to ask questions if they do not understand what they are told or what they should do.
[2019-08-09] MEDS: LACTATED RINGERS 1,000 ML 150 ML IV CONT ×2 (02:48→09:36)
--- NOTE | 2019-08-09 04:27 | PM.IMHP ---
H&P: HPI History of Present Illness Chief complaint: Sickle cell pain crisis Narrative: This is a 34 year old male with known history of Sickle Cell disease who is well known to our hospitalist service for multiple recent hospitalizations secondary to diffuse pain and who returned to the hospital tonight with a complaint of severe diffuse back and bilateral leg pain which he states is characteristic. He believes that he was discharged too soon on his last admission. He rates his pain as 9/10 and states that his oxycontin and methadone isn't touching it. He denies any shortness of breath, chest pain, nausea, vomiting, headache, abdominal pain, dysuria, hematuria, diarrhea, rectal bleeding or focal neurological deficits. The patient had routine labs obtained in the ER tonight which demonstrated that his INR is subtherapeutic. We have been asked to admit the patient to the hospital for pain control as he continues to have severe pain despite various IV bolus doses of narcotics in the ER tonight. Review of Systems Review of Systems: All systems reviewed & are unremarkable except as noted in HPI and below PMFSH Past Medical History Medical History Acute chest syndrome Chronic narcotic use Chronic methadone with oxycodone for breakthrough pain. Chronic pain syndrome History of deep vein thrombosis (DVT) of lower extremity History of pulmonary embolism Pulmonary embolism Sickle cell disease, type SC Surgical History Surgical History History of hand surgery Tendon surgery on right 5th finger. Family History Family History Grandparent Acute myocardial infarction Sibling Asthma Sibling Asthma Mother Hypertension Son Sickle cell trait Daughter Sickle cell trait Grandparent Diabetes mellitus Social History Social History Social History: The patient lives in [place] with his family. He is on disability due to sickle cell disease and chronic pain. He designates his mother, Mary Jane Zuniga, as his surrogate decision maker and he wishes to be a full code. He is a lifelong nonsmoker and denies alcohol and drug use. Smoking status: Never smoker Second hand tobacco smoke exposure: Yes Alcohol intake: never Substance use: never Substance use type: does not use Additional occupation/education comments: Gender identity (if verbalized by the patient): Male Spiritual care concerns: No Agree to blood products: Yes Meds Home Medications and Allergies Home Medications Medication Instructions Recorded Confirmed Type folic acid 1 mg PO DAILY 02/16/19 08/09/19 History hydroxyurea [Hydrea] 500 mg PO BID 02/16/19 08/09/19 History methadone [Dolophine] 10 mg PO BID 02/16/19 08/09/19 History oxycodone 7.5 mg PO Q4-6H PRN 02/16/19 08/09/19 History warfarin [Coumadin] 2 mg PO DAILY@1700 30 Days #30 08/07/19 08/09/19 Rx tablet warfarin [Coumadin] 10 mg PO QPM #0 tablet 08/07/19 08/09/19 Rx Allergies Allergy/AdvReac Type Severity Reaction Status Date / Time Fish Containing Products Allergy Intermediate Itching Verified 08/08/19 21:27 Vital Signs Vital Signs - 24 hr 08/08/19 21:22 08/08/19 21:45 08/08/19 21:46 Temperature 36.3 C L Pulse Rate 100 97 98 Respiratory Rate 20 16 20 Blood Pressure 129/72 126/86 Pulse Oximetry 98 98 99 08/08/19 22:08 08/08/19 22:16 08/08/19 22:19 Temperature Pulse Rate 92 85 Respiratory Rate 12 13 18 Blood Pressure Pulse Oximetry 97 98 100 08/08/19 22:30 08/08/19 22:31 08/08/19 22:49 Temperature Pulse Rate 86 85 85 Respiratory Rate 12 15 13 Blood Pressure 118/84 Pulse Oximetry 99 100 100 08/09/19 00:07 08/09/19 01:29 08/09/19 02:05 Temperature 36.6 C Pulse Rate 93 74 79 Respiratory Rate 15 18 19 Blood P
[2019-08-09] MEDS: HYDROMORPHONE HCL 1 MG/ML INJ IV PUSH ×2 (05:04→09:37)
[2019-08-09 06:33] LABS: Basophils Absolute Auto 0.1 K/mm3 (0.0-0.1); Basophils Percent Auto 0.5 % (0.2-1.2); Eosinophils Absolute Auto 0.3 K/mm3 (0-0.3); Hematocrit 27.2 % (42.0-52.0); Hemoglobin 9.7 g/dL (14.0-18.0); Immature Granulocyte Absolute 0.03 K/mm3 (0.00-0.031); Immature Granulocyte Percent A 0.3 % (0-0.5); Lymphocytes Absolute Auto 5.56 K/mm3 (0.9-3.2); Lymphocytes Percent Auto 55.3 % (18.3-44.2); Mean Corpuscular HGB Conc 35.7 g/dl (32-36); Mean Corpuscular Hemoglobin 32.4 pg (26-34); Mean Platelet Volume 9.9 fl (7.4-10.4); Monocytes Absolute Auto 0.8 K/mm3 (0.1-0.6); Monocytes Percent Auto 7.8 % (2.6-8.5); Neutrophils Absolute Auto 3.3 K/mm3 (1.3-6.7); Neutrophils Percent Auto 33.1 % (45.5-73.1); Nucleated Red Blood Cells Perc 0.4 % (0.0-0.2); Platelet Count Result 339 k/mm3 (150-375); Red Blood Count 2.99 M/mm3 (4.6-6.20); Red Cell Distribution Width 13.8 % (11.5-14.5); White Blood Count 10.1 K/mm3 (4.5-10.0)
[2019-08-09 06:48] LABS: Blood Urea Nitrogen 6 mg/dL (9-20); Calcium 8.4 mg/dL (8.4-10.2); Carbon Dioxide 25 mmol/L (22-30); Chloride 109 mmol/L (98-107); Estimated CRCL calculation 174 ml/min; Estimated Glomerular Filt Rate > 60; Glucose 107 mg/dL (75-110); Potassium 3.7 mmol/L (3.4-5.0); Sodium 139 mmol/L (137-145)
[2019-08-09 07:11] LABS: Platelet Estimate Adequate (Adequate); Sickle Cells 1+ (NORMAL); Target Cells 3+ (NORMAL)
[2019-08-09] MEDS: ENOXAPARIN 120 MG/0.8 ML SYRINGE 105 MG SUB-Q ×2 (07:58→18:32)
--- NOTE | 2019-08-09 09:12 | PM.IMPN ---
Progress Note: A&P Assessment and Plan (1) Sickle-cell disease with pain: Code(s): D57.00 - Hb-SS disease with crisis, unspecified Status: Acute Assessment and Plan: The patient has been admitted for pain control. He reports that his pain improved Saturday, the day he discharged, but has returned and persisted despite his home PO pain regimen. He reports pain in his bilateral lower extremities, ribs, and back. Dr. Marks has been consulted. His reticulocyte count is elevated although his labs appear similar to his baseline. Hb decreased to 9.7 from 11.0 but this may be dilutional as he was receiving IV fluids. Hb is stable in review of baseline Hb. WBC is slightly elevated at 10,100 although he has no symptoms to suggest infection. CXR had no evidence of acute cardiopulmonary abnormality. He is lying in bed and comfortable watching a movie. Continue pain scale regimen with IV dilaudid for breakthrough pain Await further recommendations for hematology Will check LDH and trend reticulocyte count Will trend CBC (2) Subtherapeutic international normalized ratio (INR): Code(s): R79.1 - Abnormal coagulation profile Status: Acute Assessment and Plan: The patient is on Coumadin due to hx of PE. His INR was subtherapeutic at his last admission so Coumadin was increased to 12 mg daily 08/02. INR 08/07 was 1.5 Continue therapeutic lovenox Monitor PT/INR (3) Chronic anticoagulation: Code(s): Z79.01 - superintendent terminal (current) use of anticoagulants Status: Acute Assessment and Plan: As above. Continue lovenox bridge with coumadin as INR is subtherapeutic (4) Sickle cell disease, type SC: Qualifiers: Sickle-cell associated disorders: without crisis Qualified Code(s): D57.20 - Sickle-cell/Hb-C disease without crisis Code(s): D57.20 - Sickle-cell/Hb-C disease without crisis Status: Chronic Assessment and Plan: Dr. Marks has been consulted. Recommendations are greatly appreciated. Continue hydroxyurea Continue folic acid (5) Chronic pain syndrome: Code(s): G89.4 - Chronic pain syndrome Status: Chronic Assessment and Plan: Wean IV narcotics as tolerated. The patient is on methadone and oxycodone for his home pain regimen. Subjective Date/time seen: 08/09/19 09:12 Interval history: Mr. Downing is a 34 y.o. male with sickle cell disease who seen and examined at bedside in follow-up for sickle cell pain crisis. He reports pain in his legs, back, and ribs. He denies nausea, vomiting, chest pain, SOB, and cough. He reports that his last bowel movement was Saturday or Saturday and he denies constipation and diarrhea. He has no urinary complaints. He denies fever and chills. He denies headache. He is on warfarin for hx of PE November 2018. Review of Systems Review of Systems: All systems reviewed & are unremarkable except as noted in HPI and below Exam Narrative: Exam Narrative: General: Well-developed, well-nourished 34 y.o. male who appears his stated age lying in bed watching a movie on his laptop. He is coopeative and in no acute distress. HEENT: Normocephalic and atraumatic. Sclerae anicteric. Conjunctivae and lids normal. PERRL. EOMI. Mucous membranes moist. Posterior pharynx without erythema or exudate. Neck: Supple. No lymphadenopathy or masses. Cardiac: Regular rate and rhythm. S1 and S2 normal. No murmur appreciated. Lungs: Normal respiratory effort. No accessory muscle use. Lungs are clear to auscultation bilaterally. Abdomen: Bowel sounds normoactive. Abdomen is soft, non-distended, and non-tender without rebound or guarding. Musculoskeletal: ROM within normal limits. Extremities: No lower extremity edema. DP and PT palpable bilaterally. Neurological: Alert and oriented x3. No facial asymmetry. Upper and lower extremity intact and symmetric. Speech is clear. Skin: Warm and dry. No lesions or eruptions. P
[2019-08-09] MEDS: HYDROXYUREA (*CHEMO) 500 MG CAPSULE PO ×2 (12:26→18:33)
[2019-08-09] MEDS: FOLIC ACID 1 MG TABLET PO (12:26)
[2019-08-09] MEDS: WARFARIN (*PBKC) 2 MG TABLET PO (18:33)
[2019-08-09] MEDS: WARFARIN (*PBKC) 10 MG TABLET PO (18:33)
[2019-08-09] MEDS: LACTATED RINGERS 1,000 ML 75 ML IV CONT (20:05)
[2019-08-10] MEDS: HYDROMORPHONE HCL 1 MG/ML INJ 2 MG IV PUSH ×5 (01:31→13:49)
[2019-08-10] MEDS: ENOXAPARIN 120 MG/0.8 ML SYRINGE 105 MG SUB-Q ×2 (05:44→17:30)
[2019-08-10 06:00] VITALS: BP 117/76; PULSE 77; RESP 18; TEMP 36.4; O2SAT 100
[2019-08-10 06:48] LABS: Blood Urea Nitrogen 5 mg/dL (9-20); Calcium 8.3 mg/dL (8.4-10.2); Carbon Dioxide 26 mmol/L (22-30); Chloride 107 mmol/L (98-107); Estimated CRCL calculation 174 ml/min; Estimated Glomerular Filt Rate > 60; Glucose 99 mg/dL (75-110); Lactate Dehydrogenase 456 U/L (313-618); Potassium 3.6 mmol/L (3.4-5.0); Sodium 137 mmol/L (137-145)
[2019-08-10 06:59] LABS: INR 1.5; Prothrombin Time 17.5 Seconds (11.1-14.7)
[2019-08-10 07:00] LABS: Partial Thromboplastin Time 33.2 SECONDS (22.3-36.8)
[2019-08-10] MEDS: FOLIC ACID 1 MG TABLET PO (07:42)
[2019-08-10] MEDS: HYDROXYUREA (*CHEMO) 500 MG CAPSULE PO ×2 (07:42→16:51)
--- NOTE | 2019-08-10 08:17 | PM.IMPN ---
Progress Note: A&P Assessment and Plan (1) Sickle-cell disease with pain: Code(s): D57.00 - Hb-SS disease with crisis, unspecified Status: Acute Assessment and Plan: The patient has been admitted for pain control. He reports that his pain has improved today but he does not feel he will be ready to discharge today as he is still rating his bilateral leg pain at 8/10 and his back and rib pain at 7/10. He does believe that his pain has improved on his current regimen. Dr. Marks is on board. LDH is 456 today. WBC is WNL at 7,800. Hb is stable at 9.7. Hct is 28. Absolute and percent retic have decreased to 0.12 and 4.08 respectively. His labs are consistent with his baseline. Management per Dr. Marks, recommendations are greatly appreciated. Continue analgesics per Dr. Marks Continue IV fluids Will trend labs (2) Subtherapeutic international normalized ratio (INR): Code(s): R79.1 - Abnormal coagulation profile Status: Acute Assessment and Plan: The patient is on Coumadin due to hx of PE. His INR was subtherapeutic at his last admission so Coumadin was increased to 12 mg daily 08/02. INR 08/09 is 1.5. Coumadin was increased to 12mg once daily on 08/02 so it has been 7 days since this dose adjustment with INR subtherapeutic at 1.5. Warfarin was increased to 13mg once daily 08/[address] Marks. Continue therapeutic lovenox as bridge Continue to monitor PT/INR (3) Chronic anticoagulation: Code(s): Z79.01 - terminal supervisor (current) use of anticoagulants Status: Acute Assessment and Plan: As above. Continue lovenox bridge with coumadin as INR remains subtherapeutic (4) Sickle cell disease, type SC: Qualifiers: Sickle-cell associated disorders: without crisis Qualified Code(s): D57.20 - Sickle-cell/Hb-C disease without crisis Code(s): D57.20 - Sickle-cell/Hb-C disease without crisis Status: Chronic Assessment and Plan: Dr. Marsk has been consulted. Recommendations are greatly appreciated. Continue hydroxyurea Continue folic acid (5) Chronic pain syndrome: Code(s): G89.4 - Chronic pain syndrome Status: Chronic Assessment and Plan: Wean IV narcotics as tolerated. The patient is on methadone and oxycodone for his home pain regimen. Subjective Date/time seen: 08/10/19 08:17 Interval history: Mr. Downing is seen in follow-up for sickle cell pain episode. He reports that his pain is improving. He rates his leg pain at 8/10 and his back and rib pain at 7/10. He has no other complaints today. He reports good appetite. His last bowel movement was two days ago. He denies chest pain, cough, dyspnea, nausea, vomiting, and abdominal pain. He has no urinary complaints. He reports that he had a very mild headache last night which has subsided. He has no other concerns. Review of Systems Review of Systems: All systems reviewed & are unremarkable except as noted in HPI and below Exam Narrative: Exam Narrative: General: Well-developed, well-nourished 34 y.o. male sitting up in bed watching a movie. He is in no acute distress. HEENT: Normocephalic and atraumatic. Sclerae anicteric. Conjunctivae and lids are normal. EOMI. Mucous membranes moist. Neck: Supple. No lymphadenopathy or masses. Cardiac: Regular rate and rhythm. S1 and S2 normal. No murmur appreciated. Lungs: Effort normal. Lungs are clear to auscultation bilaterally. Abdomen: Normoactive bowel sounds. The abdomen is soft, non-distended, and non-tender. Musculoskeletal: ROM within normal limits. Extremities: DP and PT palpable. No lower extremity edema. Mariama negative. Neurological: Alert and oriented x3. Exam is non-focal. Speech is clear. Skin: Warm and dry. No lesions or eruptions. Psychiatric: Judgment and insight intact. Mood is pleasant and affect normal. Objective Data Vital Signs Vital Signs: Vital Signs - 24 hr 08/09/19 14:00 0
[2019-08-10 08:37] LABS: Basophils Absolute Auto 0.1 K/mm3 (0.0-0.1); Basophils Percent Auto 0.8 % (0.2-1.2); Eosinophils Absolute Auto 0.2 K/mm3 (0-0.3); Hemoglobin 9.7 g/dL (14.0-18.0); Immature Granulocyte Absolute 0.01 K/mm3 (0.00-0.031); Immature Granulocyte Percent A 0.1 % (0-0.5); Lymphocytes Absolute Auto 4.99 K/mm3 (0.9-3.2); Lymphocytes Percent Auto 64.4 % (18.3-44.2); Mean Corpuscular HGB Conc 34.6 g/dl (32-36); Mean Corpuscular Volume 92.4 fl (80-100); Monocytes Absolute Auto 0.7 K/mm3 (0.1-0.6); Monocytes Percent Auto 8.5 % (2.6-8.5); Neutrophils Absolute Auto 1.8 K/mm3 (1.3-6.7); Neutrophils Percent Auto 23.2 % (45.5-73.1); Nucleated Red Blood Cells Perc 0.5 % (0.0-0.2); Platelet Count Result 337 k/mm3 (150-375); Red Blood Count 3.03 M/mm3 (4.6-6.20); Red Cell Distribution Width 14.2 % (11.5-14.5); White Blood Count 7.8 K/mm3 (4.5-10.0)
[2019-08-10 09:08] LABS: Immature Reticulocyte Fraction 30.5 % (3.0-15.9); Reticulocyte Hemoglobin Conten 34.4 pg (28.2-35.7); Reticulocyte Percent 4.08 % (0.7-4.3); Reticulocytes Absolute 0.12 B/L (32.2-175.7)
[2019-08-10] MEDS: LACTATED RINGERS 1,000 ML 75 ML IV CONT ×2 (10:36→23:35)
[2019-08-10 14:00] VITALS: BP 119/70; PULSE 83; RESP 18; TEMP 36.7; O2SAT 97
[2019-08-10] MEDS: HYDROMORPHONE HCL 1 MG/ML INJ IV PUSH (14:36)
[2019-08-10] MEDS: WARFARIN (*PBKC) 3 MG TABLET PO (16:51)
[2019-08-10] MEDS: WARFARIN (*PBKC) 10 MG TABLET PO (16:51)
[2019-08-10] MEDS: HYDROMORPHONE HCL 1 MG/ML INJ 3 MG IV PUSH ×3 (17:30→23:35)
--- NOTE | 2019-08-10 18:13 | CONS_ITS ---
DATE OF CONSULTATION: 08/10/2019 REASON FOR CONSULTATION: Sickle cell crisis. 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 He was recently discharged home after being treated for sickle cell crisis 4 days ago. He came back into the hospital with complaint of diffuse back and bilateral leg pain. He has been taking his home pain medication including methadone and [place] without much relief. He describes pain on admission as 9/10. He denies any fever or chills. He denied any cough and shortness of breath. He has been taking hydroxyurea along with folic acid at home. He also has been taking Coumadin for his history of chronic recurrent pulmonary embolism. REVIEW OF SYSTEMS: 12-point review of system was reviewed as per HPI, otherwise negative. PAST MEDICAL HISTORY: Sickle cell anemia with frequent sickle cell crisis flare-ups, acute chest syndrome, history of recurrent pulmonary embolism, sickle cell SC disease. PAST SURGICAL HISTORY: Right 5th finger surgery. FAMILY HISTORY: Son and daughter, both have sickle cell trait. SOCIAL HISTORY: The patient lives in [place]. He is on disability. Denies any history of smoking and drinking. HOME MEDICATIONS: Reviewed. ALLERGIES: REVIEWED. PHYSICAL EXAMINATION: GENERAL: This patient is a well-developed, well-nourished, male, no apparent distress. Alert and oriented. VITAL SIGNS: Per nursing note. HEENT: Normocephalic, atraumatic. Clear oropharynx. LUNGS: Clear to auscultation bilaterally. CARDIOVASCULAR: Regular rate and rhythm. No murmurs. ABDOMEN: Soft, nontender, nondistended. Bowel sounds are positive in all 4 quadrants. No hepatosplenomegaly. EXTREMITIES: No edema. NEUROLOGIC: Grossly intact. LABORATORY DATA: WBC 7.8, hemoglobin 9.7, platelet count is 337,000. Reticulocyte was 4.69 on admission, creatinine 0.6, total bilirubin 0.9, LDH 456. INR 1.5. ASSESSMENT AND PLAN: 1. Sickle cell anemia with SC disease. The patient has frequent episodes of sickle cell crisis. He has been complaining of bilateral lower extremities pain. The patient has been admitted to the hospital for IV hydration and pain management. At this time, I will continue with IV hydration and we will increase Dilaudid to 3 mg on every 3 hours basis. The patient will also continue hydroxyurea 500 mg b.i.d. with folic acid 1 mg daily. 2. Recurrent pulmonary embolism. INR is subtherapeutic at 1.5. I will increase Coumadin dose to 30 mg daily. The patient will be in the hospital until he is asymptomatic. TRACY ALMARAZ M.D. TRUCK LOADER AND UNLOADER TRUCK LOADER AND UNLOADER D I MT: Becky
[2019-08-10 22:00] VITALS: BP 113/75; PULSE 85; RESP 18; TEMP 36.6; O2SAT 97
[2019-08-11] MEDS: HYDROMORPHONE HCL 1 MG/ML INJ 3 MG IV PUSH ×7 (02:27→22:12)
[2019-08-11] MEDS: ENOXAPARIN 120 MG/0.8 ML SYRINGE 105 MG SUB-Q ×2 (05:25→18:31)
[2019-08-11 06:00] VITALS: BP 124/75; PULSE 76; RESP 18; TEMP 36.4; O2SAT 98
[2019-08-11 06:09] LABS: Basophils Absolute Auto 0.1 K/mm3 (0.0-0.1); Basophils Percent Auto 0.7 % (0.2-1.2); Eosinophils Absolute Auto 0.2 K/mm3 (0-0.3); Eosinophils Percent Auto 2.4 % (0-4.4); Hemoglobin 10.2 g/dL (14.0-18.0); Immature Granulocyte Absolute 0.02 K/mm3 (0.00-0.031); Immature Granulocyte Percent A 0.2 % (0-0.5); Immature Platelet Fraction Pct 3.8 % (0.9-11.2); Immature Reticulocyte Fraction 29.6 % (3.0-15.9); Mean Corpuscular HGB Conc 35.2 g/dl (32-36); Mean Corpuscular Hemoglobin 32.5 pg (26-34); Mean Corpuscular Volume 92.4 fl (80-100); Mean Platelet Volume 10.6 fl (7.4-10.4); Monocytes Absolute Auto 0.7 K/mm3 (0.1-0.6); Monocytes Percent Auto 7.6 % (2.6-8.5); Neutrophils Absolute Auto 2.5 K/mm3 (1.3-6.7); Neutrophils Percent Auto 27.1 % (45.5-73.1); Nucleated Red Blood Cells Absolute Auto 0.1 K/mm3 (0.0-0.012); Nucleated Red Blood Cells Perc 0.5 % (0.0-0.2); Platelet Count Result 331 k/mm3 (150-375); Red Blood Count 3.14 M/mm3 (4.6-6.20); Red Cell Distribution Width 14.4 % (11.5-14.5); Reticulocyte Hemoglobin Conten 35.3 pg (28.2-35.7); Reticulocyte Percent 5.53 % (0.7-4.3); Reticulocytes Absolute 0.17 B/L (32.2-175.7); White Blood Count 9.4 K/mm3 (4.5-10.0)
[2019-08-11 06:21] LABS: INR 1.8; Prothrombin Time 20.6 Seconds (11.1-14.7)
[2019-08-11 06:22] LABS: Partial Thromboplastin Time 35.2 SECONDS (22.3-36.8)
[2019-08-11 06:23] LABS: Alanine Aminotransferase 24 U/L (4-50); Albumin Level 3.9 g/dL (3.5-5.1); Alkaline Phosphatase 69 U/L (38-126); Aspartate Amino Transferase 32 U/L (17-59); Bilirubin,Total 0.7 mg/dL (0.2-1.3); Blood Urea Nitrogen 6 mg/dL (9-20); Calcium 8.5 mg/dL (8.4-10.2); Carbon Dioxide 25 mmol/L (22-30); Chloride 107 mmol/L (98-107); Estimated CRCL calculation 174 ml/min; Estimated Glomerular Filt Rate > 60; Glucose 92 mg/dL (75-110); Lactate Dehydrogenase 532 U/L (313-618); Potassium 3.8 mmol/L (3.4-5.0); Sodium 140 mmol/L (137-145)
[2019-08-11 07:08] LABS: Anisocytosis 1+ (NORMAL); Hypochromasia 1+ (NORMAL); Platelet Estimate Adequate (Adequate); Target Cells 2+ (NORMAL)
[2019-08-11 07:09] LABS: Ovalocytes 1+ (NORMAL); Stomatocytes 1+ (NORMAL)
[2019-08-11] MEDS: HYDROXYUREA (*CHEMO) 500 MG CAPSULE PO ×2 (08:35→18:29)
[2019-08-11] MEDS: FOLIC ACID 1 MG TABLET PO (08:35)
--- NOTE | 2019-08-11 09:35 | PM.IMPN ---
Progress Note: A&P Assessment and Plan (1) Sickle-cell disease with pain: Code(s): D57.00 - Hb-SS disease with crisis, unspecified Status: Acute Assessment and Plan: Recent hospitalization from 08/02-08/06 for pain control. There is no evidence of acute chest syndrome. He endorses BLE which he reports has improved slightly and now rates as /10. Dr. Marks is on board. LDH is 532 today. WBC is WNL at 9.4. Hb is stable at 10.2. Hct is 29. Absolute and percent retic have increased to 0.17 and 5.53 [address] Management [address] Makrs, recommendations are greatly appreciated. Continue analgesics per Dr. Marks Continue IV fluids Continue to monitor CBC and reticulocyte count (2) Subtherapeutic international normalized ratio (INR): Code(s): R79.1 - Abnormal coagulation profile Status: Acute Assessment and Plan: The patient is on Coumadin due to hx of PE. His INR was subtherapeutic at his last admission so Coumadin was increased to 12 mg daily 08/02. Dr. Marks increased to 13 mg on 08/09. INR is 1.8 today. Continue therapeutic lovenox as bridge Continue to monitor PT/INR (3) Chronic anticoagulation: Code(s): Z79.01 - alf (current) use of anticoagulants Status: Acute Assessment and Plan: As above. Continue lovenox bridge with coumadin as INR remains subtherapeutic (4) Sickle cell disease, type SC: Qualifiers: Sickle-cell associated disorders: without crisis Qualified Code(s): D57.20 - Sickle-cell/Hb-C disease without crisis Code(s): D57.20 - Sickle-cell/Hb-C disease without crisis Status: Chronic Assessment and Plan: Dr. Marks has been consulted. Recommendations are greatly appreciated. Continue hydroxyurea Continue folic acid (5) Chronic pain syndrome: Code(s): G89.4 - Chronic pain syndrome Status: Chronic Assessment and Plan: Wean IV narcotics as tolerated. The patient is on methadone and oxycodone for his home pain regimen. Subjective Date/time seen: 08/11/19 09:35 Interval history: Date of service: 08/11/19 I am assuming care for Mr. Downing today after reviewing his chart. He tells me his pain is showing some improvement. He has left side leg pain which starts at the mid thigh and extends to the calf which he describes as achiness and rates 7/10. The right leg is similar pain but he reports 6/10 pain. He reports his pain is still waking him up at night but he is able to stay asleep a bit longer than he previously had. He is able to ambulate around the room and to the bathroom without difficulty. His appetite is starting to return. He has occasional mild headaches. He denies back pain, chest pain, shortness of breath, or abdominal pain. He had a BM yesterday. He is urinating frequently given IV fluids. Denies dysuria or hematuria. He denies any active bleeding, bruising, dizziness, lightheadedness, fever, or chills. Review of Systems Review of Systems: Narrative: A 12 point review of systems was reviewed with pertinent positives and negatives as per HPI. Exam Narrative: Exam Narrative: Mr. Downing is examined alone today. He is a well-nourished 34 year old male who is lying supine in bed. He appears comfortable and is in NARD. HR 76. BP 124/75. RR 18. T 97.6. Neuro: awake, alert and oriented x3, speech clear, no focal neuro deficits noted HEENMT: normocephalic, atraumatic, EOMI, PERRL, sclerae anicteric, moist oral mucosa Neck: supple, no lymphadenopathy Respiratory: clear to auscultation bilaterally, normal respiratory effort, 98% on room air Cardio: regular rate, regular rhythm, normal S1 and S2 Abdomen: normal to inspection, nondistended, normoactive bowel sounds, soft, nontender Extremities: BLE without edema or erythema, no pain to palpation, full sensation, dorsal pedis palpable bilaterally Skin: no rashes or lesions, warm and dry Psych: pleasant, normal mood
[2019-08-11] MEDS: LACTATED RINGERS 1,000 ML 75 ML IV CONT (12:41)
[2019-08-11 14:00] VITALS: BP 116/66; PULSE 89; RESP 16; TEMP 36.7; O2SAT 98
--- NOTE | 2019-08-11 15:38 | P.PNONC_ITS ---
Progress Note: A/P - Additional Plan Sickle cell SC disease with sickle cell crisis. Hemoglobin has improved but reticulocyte count remains elevated. Clinically he is feeling better after increase of the dilauded dose to 3 mg every 3 hours. I will continue IV hydration as well as folic acid. Patient will also continue hydroxyurea 500 mg twice a day. Recurrent pulmonary embolism. Coumadin dose was include to 30 mg daily. INR has improved to 1.7. - Time Spent With Patient Total time spent is greater than 50% in coordination of care (as documented) at patient's floor/unit and/or counseling patient: 15 - 25 minutes Subjective Interval history: Sickle cell anemia with sickle cell crisis Recurrent pulmonary embolism Review of Systems - Review of Systems Patient complain of lower extremity pain which has improved from yesterday after increase of pain medication. Denies any fevers and chills. Denies any bleeding. Denies any cough. No other new complaints. Exam Vital signs: Temp Pulse Resp BP Pulse Ox 36.7 C 89 16 116/66 98 08/11/19 14:00 08/11/19 14:00 08/11/19 14:00 08/11/19 14:00 08/11/19 14:00 Lungs are clear to auscultation bilaterally Cardiovascular regular rate rhythm no murmurs Abdomen soft nontender nondistended bowel sounds are positive Extremities no edema PN: Objective Data - Labs CBC & Chem 7: 08/11/19 05:21 08/11/19 05:21 Labs: Laboratory Results - last 24 hr 08/11/19 08/11/19 08/11/19 05:21 05:21 05:21 WBC 9.4 RBC 3.14 L Hgb 10.2 L Hct 29.0 L MCV 92.4 MCH 32.5 MCHC 35.2 RDW 14.4 Plt Count 331 MPV 10.6 H Immature Gran % (Auto) 0.2 Neut % (Auto) 27.1 L Lymph % (Auto) 62.0 H Richardson % (Auto) 7.6 Eos % (Auto) 2.4 Baso % (Auto) 0.7 Lymph # (Auto) 5.80 H Richardson # (Auto) 0.7 H Eos # (Auto) 0.2 Baso # (Auto) 0.1 Abs Immat Gran (auto) 0.02 Absolute Neuts (auto) 2.5 Absolute Nucleated RBC 0.1 H Nucleated RBC % 0.5 H Platelet Estimate Adequate % Immature Plt Fraction 3.8 Hypochromasia 1+ Anisocytosis 1+ Target Cells 2+ Ovalocytes 1+ Stomatocytes 1+ Absolute Retic 0.17 L Percent Retic 5.53 H Immature Retic Fraction 29.6 H Retic Hgb Content 35.3 PT 20.6 H INR 1.8 APTT 35.2 Sodium 140 Potassium 3.8 Chloride 107 Carbon Dioxide 25 BUN 6 L Creatinine 0.60 L Estim Creat Clear Calc 174 Estimated GFR > 60 Glucose 92 Calcium 8.5 Total Bilirubin 0.7 AST 32 ALT 24 Alkaline Phosphatase 69 Lactate Dehydrogenase 532 Total Protein 7.0 Albumin 3.9
[2019-08-11] MEDS: WARFARIN (*PBKC) 3 MG TABLET PO (18:30)
[2019-08-11] MEDS: WARFARIN (*PBKC) 10 MG TABLET PO (18:30)
--- NOTE | 2019-08-11 18:38 | PC.NURSE ---
1835 C/O OF NAUSEA, REQUESTING ZOFRAN. CALLED [facility] AND LEFT MESSAGE. BOOGIE BEE
[2019-08-11] MEDS: ONDANSETRON INJ 4 MG/2 ML VIAL IV PUSH (20:05)
[2019-08-11 22:00] VITALS: BP 127/56; PULSE 77; RESP 18; TEMP 36.7; O2SAT 96
[2019-08-11] MEDS: ACETAMINOPHEN 325 MG TABLET 650 MG PO (23:06)
[2019-08-12] MEDS: HYDROMORPHONE HCL 1 MG/ML INJ 3 MG IV PUSH ×8 (01:25→23:24)
[2019-08-12] MEDS: LACTATED RINGERS 1,000 ML 75 ML IV CONT ×2 (02:30→14:53)
[2019-08-12] MEDS: ENOXAPARIN 120 MG/0.8 ML SYRINGE 105 MG SUB-Q ×2 (05:54→17:11)
[2019-08-12 06:00] VITALS: BP 123/60; PULSE 73; RESP 18; TEMP 36.3; O2SAT 94
[2019-08-12 06:09] LABS: Basophils Absolute Auto 0.1 K/mm3 (0.0-0.1); Basophils Percent Auto 0.6 % (0.2-1.2); Eosinophils Absolute Auto 0.3 K/mm3 (0-0.3); Eosinophils Percent Auto 2.5 % (0-4.4); Hematocrit 28.4 % (42.0-52.0); Hemoglobin 10.2 g/dL (14.0-18.0); Immature Granulocyte Absolute 0.02 K/mm3 (0.00-0.031); Immature Granulocyte Percent A 0.2 % (0-0.5); Lymphocytes Absolute Auto 6.09 K/mm3 (0.9-3.2); Lymphocytes Percent Auto 58.6 % (18.3-44.2); Mean Corpuscular HGB Conc 35.9 g/dl (32-36); Mean Corpuscular Hemoglobin 32.7 pg (26-34); Mean Platelet Volume 10.4 fl (7.4-10.4); Monocytes Absolute Auto 0.8 K/mm3 (0.1-0.6); Monocytes Percent Auto 7.5 % (2.6-8.5); Neutrophils Absolute Auto 3.2 K/mm3 (1.3-6.7); Neutrophils Percent Auto 30.6 % (45.5-73.1); Nucleated Red Blood Cells Absolute Auto 0.1 K/mm3 (0.0-0.012); Nucleated Red Blood Cells Perc 0.5 % (0.0-0.2); Platelet Count Result 336 k/mm3 (150-375); Red Blood Count 3.12 M/mm3 (4.6-6.20); Red Cell Distribution Width 14.5 % (11.5-14.5); White Blood Count 10.4 K/mm3 (4.5-10.0)
[2019-08-12 06:11] LABS: Alanine Aminotransferase 27 U/L (4-50); Alkaline Phosphatase 71 U/L (38-126); Aspartate Amino Transferase 38 U/L (17-59); Bilirubin,Total 0.8 mg/dL (0.2-1.3); Blood Urea Nitrogen 5 mg/dL (9-20); Calcium 8.6 mg/dL (8.4-10.2); Carbon Dioxide 26 mmol/L (22-30); Chloride 106 mmol/L (98-107); Estimated CRCL calculation 151 ml/min; Estimated Glomerular Filt Rate > 60; Glucose 94 mg/dL (75-110); Potassium 3.8 mmol/L (3.4-5.0); Sodium 139 mmol/L (137-145)
[2019-08-12 06:13] LABS: INR 2.2; Prothrombin Time 23.8 Seconds (11.1-14.7)
[2019-08-12] MEDS: HYDROXYUREA (*CHEMO) 500 MG CAPSULE PO ×2 (08:48→17:11)
[2019-08-12] MEDS: FOLIC ACID 1 MG TABLET PO (08:48)
--- NOTE | 2019-08-12 10:30 | PC.NURSE ---
Late correction of medical record- On 08/10/19 at 0749 and at 1039 Dilaudid 1 mg IVP was administered by Tiffani Rendon. This entry corrects the original documentation by Tiffani Rendon's entry noting that 2 mg Dilaudid given IVP for each dose.
[2019-08-12 10:53] LABS: Immature Reticulocyte Fraction 24.9 % (3.0-15.9); Reticulocyte Hemoglobin Conten 36.2 pg (28.2-35.7); Reticulocyte Percent 5.32 % (0.7-4.3); Reticulocytes Absolute 0.16 B/L (32.2-175.7)
[2019-08-12 14:00] VITALS: BP 129/81; PULSE 91; RESP 18; TEMP 36.4; O2SAT 97
--- NOTE | 2019-08-12 15:34 | PM.IMPN ---
Progress Note: A&P Assessment and Plan (1) Sickle-cell disease with pain: Code(s): D57.00 - Hb-SS disease with crisis, unspecified Status: Acute Assessment and Plan: Recent hospitalization from 08/02-08/06 for pain control. There is no evidence of acute chest syndrome. He endorses BLE pain which he reports has improved slightly and now rates as 7/[address] Marks is on board. WBC is 10.4. Hb is stable at 10.2. Hct is 28.4. Absolute retic is 0.16 and percent retic is 5.32. Management per Dr. Marks, recommendations are greatly appreciated. Continue analgesics per Dr. Marks Continue gentle IV hydration Continue to monitor CBC and reticulocyte count Plan to discharge tomorrow provided adequate pain control (2) Subtherapeutic international normalized ratio (INR): Code(s): R79.1 - Abnormal coagulation profile Status: Acute Assessment and Plan: The patient is on Coumadin due to hx of PE. His INR was subtherapeutic at his last admission so Coumadin was increased to 12 mg daily 08/02. Dr. Marks increased to 13 mg on 08/09. INR is wnl at 2.2 today. Continue to monitor PT/INR (3) Chronic anticoagulation: Code(s): Z79.01 - shelter (current) use of anticoagulants Status: Acute Assessment and Plan: As above. INR is within therapeutic range Continue to monitor INR. (4) Sickle cell disease, type SC: Qualifiers: Sickle-cell associated disorders: without crisis Qualified Code(s): D57.20 - Sickle-cell/Hb-C disease without crisis Code(s): D57.20 - Sickle-cell/Hb-C disease without crisis Status: Chronic Assessment and Plan: Dr. Marks has been consulted. Recommendations are greatly appreciated. Continue hydroxyurea Continue folic acid Continue gentle IV hydration (5) Chronic pain syndrome: Code(s): G89.4 - Chronic pain syndrome Status: Chronic Assessment and Plan: The patient is on methadone and oxycodone for his home pain regimen. Wean IV narcotics as tolerated. Subjective Date/time seen: 08/12/19 15:34 Interval history: Date and time seen: 08/12/2019 at 1030 History nursing reports he is doing okay today. States that he has right leg pain which he rates as 7/10 and left leg pain which is a 5-6/10. He describes this as an aching from the thigh to the calf. He has been ambulating around the room and he has done okay with this. He denies back pain or chest pain. He denies any further myalgia or arthralgia. He notes his appetite has improved and he is eating well. He had a bowel movement 2 days ago which he reports is normal for him. He is urinating without difficulty. He reports his pain control has been improved and hoped he would feel comfortable to discharge today. However, upon further evaluation and discussion at subsequent visit around 1530, he reported he had walked in the halls which caused further leg pain and some mild chest discomfort. He discussed this with Dr. Marks and will plan to discharge tomorrow. Review of Systems Review of Systems: Narrative: A 12 point review of systems was reviewed with pertinent positives and negatives as per HPI. Exam Narrative: Exam Narrative: Mr. Downing is examined alone today. He is a well-nourished 34 year old male who is lying supine in bed. He appears comfortable and is in NARD. HR 73, BP 123/60, RR 18, T 97.4? Neuro: awake, alert and oriented x3, speech clear, no focal neuro deficits noted HEENMT: normocephalic, atraumatic, EOMI, PERRL, sclerae anicteric, moist oral mucosa Neck: supple, no lymphadenopathy Respiratory: clear to auscultation bilaterally, normal respiratory effort, 94% on room air Cardio: regular rate, regular rhythm, normal S1 and S2 Abdomen: normal to inspection, nondistended, normoactive bowel sounds, soft, nontender Extremities: BLE without edema or erythema, no pain to palpation, full sensation, dorsal pedis
--- NOTE | 2019-08-12 16:35 | WPDONCPN ---
Progress Note: A/P - Additional Plan Sickle cell SC disease and sickle cell crisis. Left noted. Platelet remains stable with improvement in radicular site count. Clinically he is feeling better. He should be able to go home in the morning. Patient will continue hydroxyurea and folic acid as previously ordered. Recurrent pulmonary embolism. INR has improved to therapeutic value of 2.3. Patient will continue Coumadin 13 mg daily and Lovenox can be discontinued. - Time Spent With Patient Total time spent is greater than 50% in coordination of care (as documented) at patient's floor/unit and/or counseling patient: 15 - 25 minutes Subjective Interval history: Sickle cell anemia with sickle cell crisis Recurrent pulmonary embolism Review of Systems - Review of Systems Patient is much more comfortable today. Some lower extremity discomfort. Denies any fever chills. No bleeding. No other new complaints. Exam Narrative: Lungs are clear to auscultation bilaterally Cardiovascular regular rate rhythm no murmurs Abdomen soft nontender nondistended Extremities no edema PN: Objective Data - Labs CBC & Chem 7: 08/12/19 05:17 08/12/19 05:17 Labs: Laboratory Results - last 24 hr 08/12/19 08/12/19 08/12/19 05:17 05:17 05:17 WBC 10.4 H RBC 3.12 L Hgb 10.2 L Hct 28.4 L MCV 91.0 MCH 32.7 MCHC 35.9 RDW 14.5 Plt Count 336 MPV 10.4 Immature Gran % (Auto) 0.2 Neut % (Auto) 30.6 L Lymph % (Auto) 58.6 H [place] % (Auto) 7.5 Eos % (Auto) 2.5 Baso % (Auto) 0.6 Lymph # (Auto) 6.09 H [place] # (Auto) 0.8 H Eos # (Auto) 0.3 Baso # (Auto) 0.1 Abs Immat Gran (auto) 0.02 Absolute Neuts (auto) 3.2 Absolute Nucleated RBC 0.1 H Nucleated RBC % 0.5 H Absolute Retic Percent Retic Immature Retic Fraction Retic Hgb Content PT 23.8 H INR 2.2 Sodium 139 Potassium 3.8 Chloride 106 Carbon Dioxide 26 BUN 5 L Creatinine 0.70 Estim Creat Clear Calc 151 Estimated GFR > 60 Glucose 94 Calcium 8.6 Total Bilirubin 0.8 AST 38 ALT 27 Alkaline Phosphatase 71 Total Protein 7.0 Albumin 4.0 08/12/19 05:17 WBC RBC Hgb Hct MCV MCH MCHC RDW Plt Count MPV Immature Gran % (Auto) Neut % (Auto) Lymph % (Auto) [place] % (Auto) Eos % (Auto) Baso % (Auto) Lymph # (Auto) [place] # (Auto) Eos # (Auto) Baso # (Auto) Abs Immat Gran (auto) Absolute Neuts (auto) Absolute Nucleated RBC Nucleated RBC % Absolute Retic 0.16 L Percent Retic 5.32 H Immature Retic Fraction 24.9 H Retic Hgb Content 36.2 H PT INR Sodium Potassium Chloride Carbon Dioxide BUN Creatinine Estim Creat Clear Calc Estimated GFR Glucose Calcium Total Bilirubin AST ALT Alkaline Phosphatase Total Protein Albumin
[2019-08-12] MEDS: WARFARIN (*PBKC) 10 MG TABLET PO (17:10)
[2019-08-12] MEDS: WARFARIN (*PBKC) 3 MG TABLET PO (17:26)
[2019-08-12] MEDS: ACETAMINOPHEN 325 MG TABLET 650 MG PO (21:13)
[2019-08-12 22:00] VITALS: BP 129/77; PULSE 75; RESP 18; TEMP 36.5; O2SAT 96
[2019-08-13] MEDS: HYDROMORPHONE HCL 1 MG/ML INJ 3 MG IV PUSH ×4 (02:13→11:38)
[2019-08-13] MEDS: ENOXAPARIN 120 MG/0.8 ML SYRINGE 105 MG SUB-Q (05:15)
[2019-08-13] MEDS: LACTATED RINGERS 1,000 ML 75 ML IV CONT (05:16)
[2019-08-13 06:00] VITALS: BP 107/57; PULSE 77; RESP 18; TEMP 36.9; O2SAT 99
[2019-08-13 06:02] LABS: Hematocrit 28.3 % (42.0-52.0); Hemoglobin 10.1 g/dL (14.0-18.0); Immature Platelet Fraction Pct 3.3 % (0.9-11.2); Immature Reticulocyte Fraction 28.4 % (3.0-15.9); Mean Corpuscular HGB Conc 35.7 g/dl (32-36); Mean Corpuscular Hemoglobin 32.9 pg (26-34); Mean Corpuscular Volume 92.2 fl (80-100); Mean Platelet Volume 10.2 fl (7.4-10.4); Platelet Count Result 339 k/mm3 (150-375); Red Blood Count 3.07 M/mm3 (4.6-6.20); Red Cell Distribution Width 14.9 % (11.5-14.5); Reticulocyte Percent 5.68 % (0.7-4.3); Reticulocytes Absolute 0.17 B/L (32.2-175.7); White Blood Count 10.4 K/mm3 (4.5-10.0)
[2019-08-13 06:06] LABS: INR 2.8; Prothrombin Time 28.7 Seconds (11.1-14.7)
[2019-08-13 07:04] LABS: Eosinophils Percent Manual 1 % (0-4); Monocytes Absolute Manual 0.31 K/mm3 (0.1-0.90); Monocytes Percent Manual 3 % (3-9); Neutrophils Percent Manual 20 % (46-73); Total Cells Counted 100
[2019-08-13 07:06] LABS: Sickle Cells 1+ (NORMAL); Stomatocytes 1+ (NORMAL)
[2019-08-13 07:07] LABS: Target Cells 2+ (NORMAL)
[2019-08-13 07:09] LABS: Platelet Estimate Adequate (Adequate)
[2019-08-13 07:26] LABS: Blood Urea Nitrogen 7 mg/dL (9-20); Calcium 8.7 mg/dL (8.4-10.2); Carbon Dioxide 26 mmol/L (22-30); Chloride 106 mmol/L (98-107); Estimated CRCL calculation 151 ml/min; Estimated Glomerular Filt Rate > 60; Glucose 94 mg/dL (75-110); Potassium 4.2 mmol/L (3.4-5.0); Sodium 139 mmol/L (137-145)
[2019-08-13] MEDS: HYDROXYUREA (*CHEMO) 500 MG CAPSULE PO (08:28)
[2019-08-13] MEDS: FOLIC ACID 1 MG TABLET PO (08:28)
--- NOTE | 2019-08-13 08:57 | PM.DS ---
DS: Diagnosis Admitting Diagnosis Admitting Diagnosis: Hb-SS disease with crisis, unspecified Discharge Diagnosis (1) Sickle-cell disease with pain: Code(s): D57.00 - Hb-SS disease with crisis, unspecified Status: Acute (2) Subtherapeutic international normalized ratio (INR): Code(s): R79.1 - Abnormal coagulation profile Status: Acute (3) Chronic anticoagulation: Code(s): Z79.01 - terminal computer operator (current) use of anticoagulants Status: Acute (4) Sickle cell disease, type SC: Qualifiers: Sickle-cell associated disorders: without crisis Qualified Code(s): D57.20 - Sickle-cell/Hb-C disease without crisis Code(s): D57.20 - Sickle-cell/Hb-C disease without crisis Status: Chronic (5) Chronic pain syndrome: Code(s): G89.4 - Chronic pain syndrome Status: Chronic DS: Summary Hospital Course Reason for hospitalization: Sickle cell crisis Hospital Course: Date of admission: 08/08/19 Date of discharge: 08/13/19 Quan Downing is a 34-year-old male with a PMH significant for sickle cell disease and PE, who presented to the emergency department on 08/08/2019 for pain related to sickle cell disease not controlled by his home regimen of methadone and oxycodone. He had previously been hospitalized from 08/02-08/07/19 for similar pain. He was admitted to the hospitalist service on 08/08/2019 for pain control. He is a patient of forepart laster Dr. Marks who followed closely. His pain was most significant in his bilateral legs and lower back. Dr. Marks managed his pain with Stephen and IV dilaudid for breakthrough pain which relieved his back pain entirely and improved his leg pain. He continued hydroxyurea and folic acid. He is on coumadin for history of PE and his INR was subtherapeutic at presentation so he was managed with therapeutic Lovenox bridge. His coumadin dose was increased to 13 mg daily. His INR acheived therapeutic range and lovenox bridge was stopped. He will repeat INR in 1 week with results to Dr. Marks. Given improvement of his pain, patient felt improved to discharge and continue self-care at home. He will continue his current home pain management regimen. As he is not established with a PCP, I encouraged him to select a PCP and schedule an appointment. A list was provided to him. We discussed the importance of adhering to medication regimen and follow up with Dr. Marks. He was educated regarding his dose adjustment of coumadin. All of his questions were answered. After discussing worrisome signs and symptoms for which to return, he was discharged home in hemodynamically stable condition on the afternoon of 08/13/19. Status at Discharge Functional status at discharge: independent ambulation Overall status at discharge: patient is progressing back to baseline Time Spent with Patient Time attestation: Total time spent providing and/or coordinating discharge services:38 minutes Time spent: Greater than 30 minutes Exam Narrative: Exam Narrative: Mr. Downing is examined alone today. He is a well-nourished 34 year old male who is lying supine in bed. He appears comfortable and is in NARD. HR 77, BP 107/57, RR 18, T 98.5? Neuro: awake, alert and oriented x3, speech clear, no focal neuro deficits noted HEENMT: normocephalic, atraumatic, EOMI, PERRL, sclerae anicteric, moist oral mucosa Neck: supple, no lymphadenopathy Respiratory: clear to auscultation bilaterally, normal respiratory effort, 99% on room air Cardio: regular rate, regular rhythm, normal S1 and S2 Abdomen: normal to inspection, nondistended, normoactive bowel sounds, soft, nontender Extremities: BLE without edema or erythema, no pain to palpation, full sensation, dorsal pedis pulses palpable bilaterally Skin: no rashes or lesions, warm and dry Psych: pleasant, normal mood and affect DS: Data Data Completed and Pending Labs on day of discharge: Labs from last 24 hours 08/13/19 08/13/19 08/13/19 0
== END 2019-08-13 12:58 | disposition home or self-care (01) | DRG 662 ==
LOC: ANHED 23:04 → ANH3MEDSUR 08-09 01:43
PROVIDERS: Emergency Medicine; Physician Assistant; Admitting Provider Family Medicine; Emergency Provider Emergency Medicine; PCP Internal Medicine Hematology & Oncology; Visit Provider Internal Medicine
DX: D57.00 Hb-SS disease with crisis, unspecified (principal); R79.1 Abnormal coagulation profile; Z79.01 Long term (current) use of anticoagulants; G89.4 Chronic pain syndrome; Z86.718 Personal history of other venous thrombosis and embolism; Z86.711 Personal history of pulmonary embolism
CPT/HCPCS: 36415; 71045; 80048; 80053; 83615; 85025; 85046; 85055; 85610; 85730; 93005; 96361; 96372; 96374; 96375; 96376; 99285; A9270; G0378; G0379; J0131; J1170; J1650; J1885; J2405; J3010; J7030; J7120

== ENCOUNTER 2019-08-31 12:05 | Observation (INO) | payer OTHER, SELFPAY ==
--- NOTE | ~2019-08-31 | XR_ITS ---
EXAMINATION: XR chest 2V DATE: 08/31/2019 14:35 INDICATION: Rib pain. Sickle cell crisis. TECHNIQUE: PA and lateral views of the chest were obtained. COMPARISON: Chest radiograph dated 08/08/2019 and 06/11/2019 FINDINGS: Chronic predominantly linear opacities in the bilateral lower lung zones. No pleural effusion or pneu mothorax. The cardiomediastinal silhouette is normal. IMPRESSION: 1. Unchanged opacities in the bilateral lower lung zones consistent with chronic sickle cell disease. No new airspace opacities appreciated. Reviewed, dictated and finalized at location A. IMPRESSION: 1. Unchanged opacities in the bilateral lower lung zones consistent with chroni c sickle cell disease. No new airspace opacities appreciated.
[2019-08-31 12:09] VITALS: BP 132/68; PULSE 85; RESP 15; TEMP 36.3; O2SAT 97
[2019-08-31 14:14] LABS: Immature Reticulocyte Fraction 30.8 % (3.0-15.9); Reticulocyte Hemoglobin Conten 32.9 pg (28.2-35.7); Reticulocyte Percent 5.68 % (0.7-4.3); Reticulocytes Absolute 0.17 B/L (32.2-175.7)
[2019-08-31 14:18] LABS: Basophils Absolute Auto 0.1 K/mm3 (0.0-0.1); Basophils Percent Auto 0.7 % (0.2-1.2); Eosinophils Absolute Auto 0.8 K/mm3 (0-0.3); Eosinophils Percent Auto 8.8 % (0-4.4); Hematocrit 28.3 % (42.0-52.0); Hemoglobin 9.9 g/dL (14.0-18.0); Immature Granulocyte Absolute 0.02 K/mm3 (0.00-0.031); Immature Granulocyte Percent A 0.2 % (0-0.5); Lymphocytes Absolute Auto 4.27 K/mm3 (0.9-3.2); Lymphocytes Percent Auto 50.2 % (18.3-44.2); Mean Corpuscular Hemoglobin 32.4 pg (26-34); Mean Corpuscular Volume 92.5 fl (80-100); Mean Platelet Volume 10.9 fl (7.4-10.4); Monocytes Absolute Auto 0.8 K/mm3 (0.1-0.6); Monocytes Percent Auto 9.1 % (2.6-8.5); Neutrophils Absolute Auto 2.6 K/mm3 (1.3-6.7); Nucleated Red Blood Cells Perc 0.2 % (0.0-0.2); Platelet Count Result 341 k/mm3 (150-375); Red Blood Count 3.06 M/mm3 (4.6-6.20); Red Cell Distribution Width 15.8 % (11.5-14.5); White Blood Count 8.5 K/mm3 (4.5-10.0)
--- NOTE | 2019-08-31 14:18 | ED.GENADULT ---
HPI - General Adult General Chief complaint: Unspecified <ZAINAB Thacker Last Filed: 08/31/19 19:12> Stated complaint: sickle cell crisis <ZAINAB Thacker Last Filed: 08/31/19 19:12> Time Seen by Provider: 08/31/19 14:01 <ZAINAB Thacker Last Filed: 08/31/19 19:12> Source: patient <ZAINAB Thacker Last Filed: 08/31/19 19:12> Mode of arrival: ambulatory <ZAINAB Thacker Last Filed: 08/31/19 19:12> Limitations: no limitations <ZAINAB Thacker Last Filed: 08/31/19 19:12> History of Present Illness HPI narrative: This is a 34 year old female that presents to the ER for sickle cell crisis since yesterday. Reports pain in his ribs and back. Reports this is usual for his sickle cell crisis. Reports pain in his legs as well. He took his home pain medication with little relief. Pain is constant and a dull aches. Denies fever, shortness of breath, abdominal pain, vomiting, or dysuria. <ZAINAB Thacker Last Filed: 08/31/19 19:12> Related Data Home medications: Home Medications Medication Instructions Recorded Confirmed folic acid 1 mg PO DAILY 02/16/19 08/09/19 hydroxyurea [Hydrea] 500 mg PO BID 02/16/19 08/09/19 methadone [Dolophine] 10 mg PO BID 02/16/19 08/09/19 oxycodone 7.5 mg PO Q4-6H PRN 02/16/19 08/09/19 <ZAINAB Thacker Last Filed: 08/31/19 19:12> Allergies/adverse reactions: Allergies Allergy/AdvReac Type Severity Reaction Status Date / Time Fish Containing Products Allergy Intermediate Itching Verified 08/31/19 13:24 <ZAINAB Thacker Last Filed: 08/31/19 19:12> Review of Systems Review of Systems: Narrative: CONSTITUTIONAL: Denies fever CARDIOVASCULAR: Reports chest pain RESPIRATORY: Denies cough or dyspnea. GASTROINTESTINAL: Denies abdominal pain, nausea, vomiting GENITOURINARY: Denies dysuria or hematuria. MUSCULOSKELETAL: Reports back pain, joint pain, and myalgia. NEUROLOGIC: Denies numbness, or weakness. <Halina Oconnell PA-C - Last Filed: 08/31/19 19:12> All systems reviewed & are unremarkable except as noted in HPI and below <Halina Oconnell PA-C - Last Filed: 08/31/19 19:12> [facility] Social History Social History: Social History Social History: The patient lives in [place] with his family. He is on disability due to sickle cell disease and chronic pain. He designates his mother, Mary Jane Znuiga, as his surrogate decision maker and he wishes to be a full code. He is a lifelong nonsmoker and denies alcohol and drug use. Smoking status: Never smoker Second hand tobacco smoke exposure: Yes Alcohol intake: never Substance use: never Substance use type: does not use Additional occupation/education comments: Gender identity (if verbalized by the patient): Male Spiritual care concerns: No Agree to blood products: Yes <Halina Oconnell PA-C - Last Filed: 08/31/19 19:12> Exam Narrative: Exam Narrative: GENERAL: Well-appearing, well-nourished, and in mild acute distress due to pain. HEAD: Normocephalic, atraumatic. EYES: EOMI. CHEST: Clear to auscultation. No respiratory distress. No wheezes rales or rhonchi HEART: Regular rate and rhythm. No murmur heard. Normal peripheral pulses. ABDOMEN: Soft, nontender, nondistended, normal active bowel sounds. BACK: No midline spinal tenderness EXTREMITIES: Normal range of motion. No edema. SKIN: Warm, dry, no rash. NEURO: No focal deficits. Alert and oriented x3. PSYCH: Normal mood and affect <Halina Oconnell PA-C - Last Filed: 08/31/19 19:12> Course SMALL PARTS ASSEMBLER/PA Physician Supervision For this patient encounter, I reviewed the SMALL PARTS ASSEMBLER or PA documentation, treatment plan, and medical decision making; and I had [id number] time with this patient. Patient to be admitted for sickle cell pain crisis. He is in bed in no acute distress.. He is subtherapeutic on his INR.
[2019-08-31 14:23] LABS: INR 1.1; Partial Thromboplastin Time 23.4 SECONDS (22.3-36.8)
[2019-08-31 14:25] LABS: Alanine Aminotransferase 22 U/L (4-50); Albumin Level 4.4 g/dL (3.5-5.1); Alkaline Phosphatase 83 U/L (38-126); Aspartate Amino Transferase 36 U/L (17-59); Bilirubin,Total 1.1 mg/dL (0.2-1.3); Blood Urea Nitrogen 5 mg/dL (9-20); Calcium 8.5 mg/dL (8.4-10.2); Carbon Dioxide 27 mmol/L (22-30); Chloride 106 mmol/L (98-107); Estimated CRCL calculation 149 ml/min; Estimated Glomerular Filt Rate > 60; Glucose 94 mg/dL (75-110); Lactate Dehydrogenase 741 U/L (313-618); Potassium 3.4 mmol/L (3.4-5.0); Sodium 139 mmol/L (137-145)
[2019-08-31] MEDS: KETOROLAC 30 MG/ML VIAL (*BKC) IV PUSH (14:26)
[2019-08-31] MEDS: ONDANSETRON INJ 4 MG/2 ML VIAL IV PUSH (14:26)
[2019-08-31] MEDS: SODIUM CHLORIDE 0.9% IV 1,000 ML 999 ML IV CONT (14:26)
[2019-08-31 14:27] LABS: Add Urine Microscopic? NO; Appearance Urine Clear (Clear); Bilirubin Urine Negative (Negative); Blood Urine Negative (Negative); Color Urine Yellow (Yellow); Glucose Urine UA Negative (Negative); Ketones Urine Negative (Negative); Leukocyte Esterase Ur Negative LEU/UL (Negative); Mucus Urine Heavy /lpf; Nitrate Urine Negative (Negative); Protein Urine Negative (Negative); RBC Urine 0-2 /hpf (0-2); Specific Grav Ur 1.016 (1.001-1.035); Urobilinogen Urine Negative mg/dL (<2.0); WBC Urine 0-3 /hpf
[2019-08-31] MEDS: HYDROMORPHONE HCL 1 MG/ML INJ IV PUSH ×2 (14:27→23:27)
[2019-08-31 14:50] LABS: Troponin I < 0.012 ng/mL (0.000-0.034)
[2019-08-31 14:54] VITALS: RESP 16
[2019-08-31] MEDS: HYDROMORPHONE HCL 1 MG/ML INJ 2 MG IV PUSH ×2 (16:31→18:36)
[2019-08-31 17:19] VITALS: BP 114/83; PULSE 81; RESP 16; TEMP 36.9; O2SAT 99
--- NOTE | 2019-08-31 19:03 | ECG_ITS ---
Measurements Intervals [place] Rate: 80 P: 3 [place]: 170 QRS: 3 QRSD: 98 T: -14 QT: 400 QTc: 461 Interpretive Statements SINUS RHYTHM BORDERLINE ST-T WAVE ABNORMALITY- ANT/INF LEADS BORDERLINE ECG Electronically Signed On 09-01-2019 7:02:45 CDT by Ricky Modi D.O.
[2019-08-31 21:11] VITALS: BP 121/74; PULSE 75; RESP 16; TEMP 36.9; O2SAT 95
--- NOTE | 2019-08-31 21:25 | ADMGEN ---
This patient, Quan Downing, was admitted to Medical Room 341-01. Patient/family oriented to hospital policies and general routines including ID bracelet, bed and alarms, visiting hours, pain management, procedures, bathroom and other care routines, personal items, smoking policy, room service/diet, and visiting hours. Valuables list has been completed. Information on how to activate the Rapid Response Team has been discussed. Patient/Family are encouraged to report perceived risks to care and to ask questions if they do not understand what they are told or what they should do.
[2019-08-31 21:35] VITALS: PULSE 82
[2019-08-31] MEDS: SODIUM CHLORIDE 0.9% IV 1,000 ML 125 ML IV CONT (21:37)
[2019-08-31 23:01] VITALS: BMI 32.0
[2019-08-31 23:04] VITALS: BP 122/65; PULSE 83; RESP 16; TEMP 36.3; O2SAT 94
--- NOTE | 2019-08-31 23:20 | PM.IMHP ---
H&P: HPI History of Present Illness Chief complaint: Acute on chronic pain. Narrative: Quan Downing is a 34-year-old male with sickle cell disease SC, chronic pain syndrome, and history of pulmonary embolism on warfarin who presented to the emergency department earlier today for evaluation of acute on chronic pain. He has chronic back pain which he attributes to his sickle cell disease, and is maintained on methadone with oxycodone as needed for breakthrough pain. Over the last several days, he has had an increase in his lower back pain as well as pain down into his legs and to his ribs, consistent with sickle cell pain. The pain is described as a severe deep ache, and unfortunately his home pain regimen has not provided him with lasting benefit. At the time my evaluation he rates his pain 9/10 and seems uncomfortable in the bed. He states compliance with his home medications. He has not had fever, chills, or sweats. He denies chest pain and shortness of breath. Of note, his INR was found to be subtherapeutic, and he admits that he has not taken it since last Saturday as he did not get it filled in time before his pharmacy closed for the weekend. Review of Systems Review of Systems: Narrative: Twelve systems were reviewed with pertinent positives and negatives as per HPI. No recent cold or flu symptoms. He denies headache. He denies cough and shortness of breath. No pleuritic pain. No sick contacts. He denies nausea, vomiting, diarrhea, and dysuria. No lower extremity edema. Except as documented, all other systems were reviewed and are negative. [facility] Past Medical History Medical History Acute chest syndrome Chronic narcotic use Methadone with oxycodone for breakthrough pain. Chronic pain syndrome History of deep vein thrombosis (DVT) of lower extremity History of pulmonary embolism Pulmonary embolism Sickle cell disease, type SC Surgical History Surgical History History of hand surgery Tendon surgery on right 5th finger. Family History Family History Grandparent Acute myocardial infarction Sibling Asthma Sibling Asthma Mother Hypertension Son Sickle cell trait Daughter Sickle cell trait Grandparent Diabetes mellitus Social History Social History Social History: The patient lives in [place] with his family. He is on disability due to sickle cell disease and chronic pain. He designates his mother, Mary Jane Zuniga, as his surrogate decision maker and he wishes to be a full code. He is a lifelong nonsmoker and denies alcohol and drug use. Smoking status: Never smoker Second hand tobacco smoke exposure: Yes Alcohol intake: never Substance use: never Substance use type: does not use Additional occupation/education comments: Gender identity (if verbalized by the patient): Male Spiritual care concerns: No Agree to blood products: Yes Meds Home Medications and Allergies Home Medications Medication Instructions Recorded Confirmed Type folic acid 1 mg PO DAILY 02/16/19 08/31/19 History hydroxyurea [Hydrea] 500 mg PO BID 02/16/19 08/31/19 History methadone [Dolophine] 10 mg PO BID 02/16/19 08/31/19 History oxycodone 7.5 mg PO Q4-6H PRN 02/16/19 08/31/19 History ibuprofen 800 mg PO TID PRN 08/31/19 08/31/19 History warfarin [Coumadin] 13 mg PO QPM 08/31/19 08/31/19 History Allergies Allergy/AdvReac Type Severity Reaction Status Date / Time Fish Containing Products Allergy Intermediate Itching Verified 08/31/19 13:24 Vital Signs Vital Signs - 24 hr 08/31/19 12:09 08/31/19 14:54 08/31/19 17:19 Temperature 97.4 F L 98.4 F Pulse Rate 85 81 Respiratory Rate 15 16 16 Blood Pressure 132/68 114/83 Pulse Oximetry 97 99 08/31/19 21:11
[2019-08-31] MEDS: ENOXAPARIN 100 MG/ML SYRINGE SUB-Q (23:27)
[2019-09-01] VITALS (9 sets, daily range): BP systolic 106–134; BP diastolic 67–88; PULSE 64–94; RESP 12–16; TEMP 36.2–36.4; O2SAT 94–99
[2019-09-01] MEDS: WARFARIN (*PBKC) 10 MG TABLET PO ×2 (00:05→16:41)
[2019-09-01] MEDS: WARFARIN (*PBKC) 3 MG TABLET PO ×2 (00:06→16:38)
[2019-09-01] MEDS: HYDROMORPHONE HCL 1 MG/ML INJ IV PUSH (00:06)
[2019-09-01] MEDS: HYDROMORPHONE HCL 2 MG/ML VIAL IV PUSH ×3 (04:20→10:29)
[2019-09-01] MEDS: SODIUM CHLORIDE 0.9% IV 1,000 ML 125 ML IV CONT ×3 (05:24→21:35)
[2019-09-01 05:37] LABS: Basophils Absolute Auto 0.1 K/mm3 (0.0-0.1); Basophils Percent Auto 0.6 % (0.2-1.2); Eosinophils Absolute Auto 0.8 K/mm3 (0-0.3); Eosinophils Percent Auto 7.8 % (0-4.4); Hematocrit 27.6 % (42.0-52.0); Hemoglobin 9.6 g/dL (14.0-18.0); Immature Granulocyte Absolute 0.03 K/mm3 (0.00-0.031); Immature Granulocyte Percent A 0.3 % (0-0.5); Lymphocytes Percent Auto 46.4 % (18.3-44.2); Mean Corpuscular HGB Conc 34.8 g/dl (32-36); Mean Corpuscular Hemoglobin 32.2 pg (26-34); Mean Corpuscular Volume 92.6 fl (80-100); Mean Platelet Volume 10.6 fl (7.4-10.4); Monocytes Absolute Auto 0.9 K/mm3 (0.1-0.6); Monocytes Percent Auto 8.3 % (2.6-8.5); Neutrophils Absolute Auto 3.8 K/mm3 (1.3-6.7); Neutrophils Percent Auto 36.6 % (45.5-73.1); Nucleated Red Blood Cells Perc 0.3 % (0.0-0.2); Platelet Count Result 310 k/mm3 (150-375); Red Blood Count 2.98 M/mm3 (4.6-6.20); Red Cell Distribution Width 15.6 % (11.5-14.5); White Blood Count 10.4 K/mm3 (4.5-10.0)
[2019-09-01 05:46] LABS: INR 1.2; Prothrombin Time 14.9 Seconds (11.1-14.7)
[2019-09-01 05:48] LABS: Blood Urea Nitrogen 6 mg/dL (9-20); Calcium 8.2 mg/dL (8.4-10.2); Carbon Dioxide 26 mmol/L (22-30); Chloride 108 mmol/L (98-107); Estimated CRCL calculation 150 ml/min; Estimated Glomerular Filt Rate > 60; Glucose 97 mg/dL (75-110); Lactate Dehydrogenase 659 U/L (313-618); Sodium 138 mmol/L (137-145)
[2019-09-01] MEDS: HYDROXYUREA (*CHEMO) 500 MG CAPSULE PO ×2 (08:50→16:38)
[2019-09-01] MEDS: FOLIC ACID 1 MG TABLET PO (08:51)
[2019-09-01] MEDS: ENOXAPARIN 100 MG/ML SYRINGE SUB-Q ×2 (11:04→22:31)
[2019-09-01] MEDS: IBUPROFEN 400 MG TABLET 800 MG PO (11:07)
[2019-09-01] MEDS: HYDROMORPHONE HCL 2 MG/ML VIAL 3 MG IV PUSH ×4 (13:25→23:04)
--- NOTE | 2019-09-01 16:18 | PM.IMPN ---
Progress Note: A&P Assessment and Plan (1) Sickle-cell disease with pain: Code(s): D57.00 - Hb-SS disease with crisis, unspecified Status: Acute Assessment and Plan: For the most part, his labs appear to be around baseline however his LDH is once again elevated and will recheck in a.m. Continue methadone and oxycodone; add Dilaudid for breakthrough pain. He is receiving aggressive IV fluid rehydration. Will also continue hydroxyurea and folic acid. (2) Chronic pain syndrome: Code(s): G89.4 - Chronic pain syndrome Status: Chronic Assessment and Plan: As detailed above, will continue with his home pain regimen to include methadone and oxycodone. Given repeated hospitalizations, needs to be in a pain management setting and apparently was in the past but he did not get along with the provider there who apparently accused him of drug-seeking Conversely, he may very well have opioid induced hyperalgesia, and may benefit from a decrease in opiate dosing. (3) Subtherapeutic international normalized ratio (INR): Code(s): R79.1 - Abnormal coagulation profile Status: Acute Assessment and Plan: He has not taken warfarin since last Saturday as he was unable to get his prescription refill due to his pharmacy being closed this weekend. He will be started on Lovenox 1 milligram/kilogram b.i.d. initially and restart his warfarin, INR 1.2 today. Subjective Date/time seen: 09/01/19 16:18 Interval history: Date of visit 08/31. 34-year-old black male chronic pain syndrome with history of sickle cell admitted with increasing pain. Labs similar to baseline but states still having pain and requesting IV Dilaudid and Q 3 hour intervals No fever no chills or other precipitating factor Exam Narrative: Exam Narrative: Blood pressure 108/72 pulse 68 afebrile General: Well-developed male sitting up in bed watching movies on his laptop HEENT: . Sclerae anicteric. Neck: Supple. Respiratory: Lungs are clear to auscultation bilaterally. Cardiovascular: Regular rate and rhythm with S1-S2. Gastrointestinal: Abdomen is soft, nontender, and nondistended with positive bowel sounds. Skin: Warm and dry. No rash or lesions Extremities: No edema. Radial and pedal pulses intact. Neurological: Alert. Cranial nerves 2-12 are grossly intact. No gross focal deficits to casual conversation. Psychiatric: Pleasant and cooperative with normal mood and affect. Judgment and insight intact. Objective Data Vital Signs Vital Signs: Vital Signs - 24 hr 08/31/19 17:19 08/31/19 21:11 08/31/19 21:35 Temperature 36.9 C 36.9 C Pulse Rate 81 75 82 Respiratory Rate 16 16 Blood Pressure 114/83 121/74 Pulse Oximetry 99 95 08/31/19 23:04 09/01/19 00:00 09/01/19 04:00 Temperature 36.3 C L Pulse Rate 83 72 70 Respiratory Rate 16 Blood Pressure 122/65 Pulse Oximetry 94 09/01/19 05:30 09/01/19 08:00 09/01/19 12:00 Temperature 36.2 C L Pulse Rate 84 64 73 Respiratory Rate 12 16 Blood Pressure 106/67 Pulse Oximetry 94 94 09/01/19 14:00 Temperature 36.4 C Pulse Rate 68 Respiratory Rate 16 Blood Pressure 108/71 Pulse Oximetry 97 Intake/Output Intake/Output: Intake & Output 08/29/19 08/30/19 08/31/19 09/01/19 23:59 23:59 23:59 23:59 Intake Total 1100 2360 Output Total 3300 Balance 1100 -940 Meds/Results Medications: Active Medications Generic Name Dose Route Start Last Admin Trade Name Freq PRN Reason Stop Dose Admin Dextrose 12.5 gm 08/31/19 23:50 Dextrose 50% Syringe IV PUSH PRN PRN Hypoglycemia Protocol Enoxaparin Sodium 100 mg 08/31/19 23:00 09/01/19 11:04 Lovenox SUB-Q 100 mg Q12H CHRISTOPHER Administration Folic Acid 1 mg 09/01/19 09:00 09/01/19 08:51 F
[2019-09-01] MEDS: ONDANSETRON INJ 4 MG/2 ML VIAL IV PUSH (20:58)
--- NOTE | 2019-09-01 20:58 | CONS_ITS ---
DATE OF CONSULTATION: 09/01/2019 REASON FOR CONSULTATION: Sickle cell crisis. HISTORY OF PRESENTING ILLNESS: This is a 34-year-old male with history of sickle cell anemia, SC disease with multiple episodes of sickle cell crisis admissions. He also has a history of pulmonary embolism and on chronic anticoagulation therapy with warfarin. He came into the hospital with typical sickle cell crisis, complained of diffuse musculoskeletal pain, mainly in the lower extremities and back. He denies any fevers and chills. He informed me that he ran out of his Coumadin 3 days prior to the admission. He denies any sore throat and burning in urine. He was taking methadone and oxycodone at home, but not much relief. He thinks his sickle cell flare up was due to the change in the weather. REVIEW OF SYSTEMS: 12-point review of systems reviewed and as per HPI, otherwise negative. PAST MEDICAL HISTORY: History of SC disease with multiple sickle cell crisis episodes, history of DVT of the lower extremities, history of recurrent pulmonary embolism. PAST SURGICAL HISTORY: Right fifth finger tendon surgery. FAMILY HISTORY: Sickle cell trait in son and daughter. SOCIAL HISTORY: The patient is . He is on disability. He denies any history of smoking and drinking. HOME MEDICATIONS: Reviewed. ALLERGIES: REVIEWED. PHYSICAL EXAMINATION: GENERAL: This patient is a well-developed, well-nourished, male, no apparent distress, alert and oriented. VITAL SIGNS: Per nursing note. HEENT: Normocephalic, atraumatic. Clear oropharynx. LUNGS: Clear to auscultation bilaterally. CARDIOVASCULAR: Regular rate and rhythm. No murmurs. ABDOMEN: Soft, nontender, nondistended. Bowel sounds are positive in all 4 quadrants. No hepatosplenomegaly. EXTREMITIES: No edema. NEUROLOGIC: Exam is grossly intact. LABORATORY DATA: WBC 10.4, hemoglobin 9.6, platelet 310,000, neutrophils 36%, lymphocytes 46%, reticulocyte count 5.68%. LDH 741. INR 1.1. ASSESSMENT AND PLAN: 1. Sickle cell anemia with SC disease and multiple episodes of sickle cell crisis. The patient came back into the hospital with typical symptom of generalized musculoskeletal pain, especially in the upper and lower extremities. Pain was uncontrolled with his home treatment of methadone and Lamar. We will continue IV hydration. We will increase Dilaudid to 3 mg IV every 3 hours. The patient will continue folic acid 1 mg daily with hydroxyurea. I will increase Lamar to 10 mg when he is discharged home for better control of his sickle cell crisis pain to avoid frequent admission to the hospital. 2. Recurrent pulmonary embolism. The patient will continue Coumadin 13 mg daily with Lovenox until INR is therapeutic. TRACY Bart ALMARAZ M.D. [employer]ANT D Arvind MT: Becky
[2019-09-02] VITALS (10 sets, daily range): BP systolic 122–141; BP diastolic 75–82; PULSE 62–102; RESP 16–20; TEMP 36.2–37.2; O2SAT 95–100
[2019-09-02] MEDS: HYDROMORPHONE HCL 2 MG/ML VIAL 3 MG IV PUSH ×7 (02:29→23:21)
[2019-09-02] MEDS: SODIUM CHLORIDE 0.9% IV 1,000 ML 125 ML IV CONT ×3 (05:35→23:18)
[2019-09-02 06:22] LABS: Basophils Absolute Auto 0.1 K/mm3 (0.0-0.1); Basophils Percent Auto 0.7 % (0.2-1.2); Eosinophils Absolute Auto 0.6 K/mm3 (0-0.3); Eosinophils Percent Auto 6.6 % (0-4.4); Hematocrit 27.5 % (42.0-52.0); Hemoglobin 9.8 g/dL (14.0-18.0); Immature Granulocyte Absolute 0.02 K/mm3 (0.00-0.031); Immature Granulocyte Percent A 0.2 % (0-0.5); Immature Platelet Fraction Pct 3.6 % (0.9-11.2); Lymphocytes Absolute Auto 5.65 K/mm3 (0.9-3.2); Lymphocytes Percent Auto 61.5 % (18.3-44.2); Mean Corpuscular HGB Conc 35.6 g/dl (32-36); Mean Corpuscular Volume 92.6 fl (80-100); Mean Platelet Volume 10.4 fl (7.4-10.4); Monocytes Absolute Auto 0.8 K/mm3 (0.1-0.6); Monocytes Percent Auto 8.2 % (2.6-8.5); Neutrophils Absolute Auto 2.1 K/mm3 (1.3-6.7); Neutrophils Percent Auto 22.8 % (45.5-73.1); Nucleated Red Blood Cells Perc 0.4 % (0.0-0.2); Platelet Count Result 327 k/mm3 (150-375); Red Blood Count 2.97 M/mm3 (4.6-6.20); Red Cell Distribution Width 15.5 % (11.5-14.5); Reticulocyte Hemoglobin Conten 33.4 pg (28.2-35.7); Reticulocyte Percent 6.23 % (0.7-4.3); Reticulocytes Absolute 0.19 B/L (32.2-175.7); White Blood Count 9.2 K/mm3 (4.5-10.0)
[2019-09-02 06:36] LABS: INR 1.3
[2019-09-02 07:01] LABS: Lactate Dehydrogenase 690 U/L (313-618)
[2019-09-02 07:22] LABS: Target Cells 1+ (NORMAL)
[2019-09-02] MEDS: FOLIC ACID 1 MG TABLET PO (08:58)
[2019-09-02] MEDS: HYDROXYUREA (*CHEMO) 500 MG CAPSULE PO ×2 (08:59→17:23)
[2019-09-02] MEDS: ENOXAPARIN 100 MG/ML SYRINGE SUB-Q ×2 (11:39→23:20)
--- NOTE | 2019-09-02 16:00 | PM.IMPN ---
Progress Note: A&P Assessment and Plan (1) Sickle-cell disease with pain: Code(s): D57.00 - Hb-SS disease with crisis, unspecified Status: Acute Assessment and Plan: For the most part, his labs appear to be around baseline however his LDH is once again slightly elevated and will recheck in a.m. Continue methadone and oxycodone; add Dilaudid for breakthrough pain. He is receiving IV fluid rehydration. Will also continue hydroxyurea and folic acid. (2) Chronic pain syndrome: Code(s): G89.4 - Chronic pain syndrome Status: Chronic Assessment and Plan: As detailed above, will continue with his home pain regimen to include methadone and oxycodone. Given repeated hospitalizations, needs to be in a pain management setting and apparently was in the past but he did not get along with the provider there who apparently accused him of drug-seeking Conversely, he may very well have opioid induced hyperalgesia, and may benefit from a decrease in opiate dosing. (3) Subtherapeutic international normalized ratio (INR): Code(s): R79.1 - Abnormal coagulation profile Status: Acute Assessment and Plan: He has not taken warfarin since last Saturday as he was unable to get his prescription refill due to his pharmacy being closed on the weekend. He will be started on Lovenox 1 milligram/kilogram b.i.d. initially and restart his warfarin, INR 1.3 today, D # 3 of restarting med. Give 14 mg today. Subjective Date/time seen: 09/02/19 16:00 Interval history: Date of visit 09/01. 34-year-old black male chronic pain syndrome with history of sickle cell admitted with increasing pain. Labs similar to baseline and feels better since pain meds were increased No fever no chills or other precipitating factor Exam Narrative: Exam Narrative: Blood pressure 122/78 pulse 68 afebrile General: Well-developed male sitting up in bed watching movies on his laptop HEENT: . Sclerae anicteric. Neck: Supple. Respiratory: Lungs are clear to auscultation bilaterally. Cardiovascular: Regular rate and rhythm with S1-S2. Gastrointestinal: Abdomen is soft, nontender, and nondistended with positive bowel sounds. Skin: Warm and dry. No rash or lesions Extremities: No edema. Radial and pedal pulses intact. Neurological: Alert. Cranial nerves 2-12 are grossly intact. No gross focal deficits to casual conversation. Psychiatric: Pleasant and cooperative with normal mood and affect. Judgment and insight intact. Objective Data Vital Signs Vital Signs: Vital Signs - 24 hr 09/01/19 19:34 09/01/19 20:00 09/02/19 00:00 Temperature 36.2 C L Pulse Rate 80 89 74 Respiratory Rate 16 Blood Pressure 134/88 Pulse Oximetry 99 09/02/19 04:00 09/02/19 05:28 09/02/19 08:00 Temperature 36.2 C L Pulse Rate 62 68 65 Respiratory Rate 16 Blood Pressure 129/75 Pulse Oximetry 100 09/02/19 14:00 Temperature 36.9 C Pulse Rate 68 Respiratory Rate 20 Blood Pressure 122/78 Pulse Oximetry 100 Intake/Output Intake/Output: Intake & Output 08/30/19 08/31/19 09/01/19 09/02/19 23:59 23:59 23:59 23:59 Intake Total 1100 4151 2490 Output Total 3800 2475 Balance 1100 351 15 Meds/Results Medications: Active Medications Generic Name Dose Route Start Last Admin Trade Name Freq PRN Reason Stop Dose Admin Dextrose 12.5 gm 08/31/19 23:50 Dextrose 50% Syringe IV PUSH PRN PRN Hypoglycemia Protocol Enoxaparin Sodium 100 mg 08/31/19 23:00 09/02/19 11:39 Lovenox SUB-Q 100 mg Q12H CHRISTOPHER Administration Folic Acid 1 mg 09/01/19 09:00 09/02/19 08:58 Folic Acid PO 1 mg DAILY CHRISTOPHER Administration Glucagon 1 mg 08/31/19 23:50 Glucagon For Inj IM PRN PRN Hypoglycemia Protocol Glu
--- NOTE | 2019-09-02 16:39 | P.PNONC_ITS ---
Progress Note: A/P - Additional Plan Sickle cell anemia with sickle cell crisis. Pain is slowly improving. Continue IV hydration with the lot in 3 mg every 3 hours. Continue hydroxyurea with folic acid. Recurrent pulmonary embolism. Patient is on Lovenox with Coumadin 30 mg daily. INR is slowly improving and up to 1.3 today. - Time Spent With Patient Total time spent is greater than 50% in coordination of care (as documented) at patient's floor/unit and/or counseling patient: 15 - 25 minutes Subjective Interval history: Sickle cell anemia with crisis Recurrent pulmonary embolism Review of Systems - Review of Systems Patient looks comfortable. Pain 10/22. Denies any fevers and chills. No bleeding and bruising. Exam Vital signs: Temp Pulse Resp BP Pulse Ox 36.9 C 68 20 122/78 100 09/02/19 14:00 09/02/19 14:00 09/02/19 14:00 09/02/19 14:00 09/02/19 14:00 Narrative: Lungs are clear to auscultation bilaterally Cardiovascular regular rate rhythm no murmurs Abdomen soft nontender nondistended Extremities no edema PN: Objective Data - Labs CBC & Chem 7: 09/02/19 06:14 09/01/19 05:20 Labs: Laboratory Results - last 24 hr 09/02/19 09/02/19 09/02/19 06:14 06:14 06:14 WBC 9.2 RBC 2.97 L Hgb 9.8 L Hct 27.5 L MCV 92.6 MCH 33.0 MCHC 35.6 RDW 15.5 H Plt Count 327 MPV 10.4 Immature Gran % (Auto) 0.2 Neut % (Auto) 22.8 L Lymph % (Auto) 61.5 H [place] % (Auto) 8.2 Eos % (Auto) 6.6 H Baso % (Auto) 0.7 Lymph # (Auto) 5.65 H [place] # (Auto) 0.8 H Eos # (Auto) 0.6 H Baso # (Auto) 0.1 Abs Immat Gran (auto) 0.02 Absolute Neuts (auto) 2.1 Absolute Nucleated RBC 0.0 Nucleated RBC % 0.4 H Platelet Estimate Slightly increased % Immature Plt Fraction 3.6 Target Cells 1+ Absolute Retic 0.19 L Percent Retic 6.23 H Immature Retic Fraction 33.0 H Retic Hgb Content 33.4 PT 16.0 H INR 1.3 Lactate Dehydrogenase 690 H
[2019-09-02] MEDS: WARFARIN (*PBKC) 10 MG TABLET PO (17:22)
[2019-09-02] MEDS: WARFARIN (*PBKC) 4 MG TABLET PO (17:23)
[2019-09-03] VITALS (8 sets, daily range): BP systolic 120–132; BP diastolic 73–78; PULSE 70–111; RESP 18; TEMP 36–37.2; O2SAT 95–100
--- NOTE | 2019-09-03 00:04 | ECG_ITS ---
Measurements Intervals [place] Rate: 101 P: 47 CO: 180 QRS: 27 QRSD: 90 T: 32 QT: 329 QTc: 428 Interpretive Statements SINUS TACHYCARDIA BORDERLINE ST-T WAVE ABNORMALITY- DIFFUSE LEADS BORDERLINE ECG Electronically Signed On 09-03-2019 7:18:44 CDT by Ricky Modi D.O.
[2019-09-03] MEDS: HYDROMORPHONE HCL 2 MG/ML VIAL 3 MG IV PUSH ×7 (02:45→22:01)
[2019-09-03 06:04] LABS: Basophils Absolute Auto 0.1 K/mm3 (0.0-0.1); Basophils Percent Auto 0.4 % (0.2-1.2); Eosinophils Absolute Auto 0.1 K/mm3 (0-0.3); Eosinophils Percent Auto 0.4 % (0-4.4); Hematocrit 28.3 % (42.0-52.0); Hemoglobin 10.1 g/dL (14.0-18.0); Immature Granulocyte Absolute 0.04 K/mm3 (0.00-0.031); Immature Granulocyte Percent A 0.3 % (0-0.5); Lymphocytes Absolute Auto 5.96 K/mm3 (0.9-3.2); Lymphocytes Percent Auto 42.2 % (18.3-44.2); Mean Corpuscular HGB Conc 35.7 g/dl (32-36); Mean Corpuscular Hemoglobin 32.8 pg (26-34); Mean Corpuscular Volume 91.9 fl (80-100); Mean Platelet Volume 10.2 fl (7.4-10.4); Monocytes Absolute Auto 0.9 K/mm3 (0.1-0.6); Monocytes Percent Auto 6.1 % (2.6-8.5); Neutrophils Absolute Auto 7.2 K/mm3 (1.3-6.7); Neutrophils Percent Auto 50.6 % (45.5-73.1); Nucleated Red Blood Cells Perc 0.3 % (0.0-0.2); Platelet Count Result 365 k/mm3 (150-375); Red Blood Count 3.08 M/mm3 (4.6-6.20); Red Cell Distribution Width 15.5 % (11.5-14.5); White Blood Count 14.1 K/mm3 (4.5-10.0)
[2019-09-03 06:16] LABS: INR 1.6
[2019-09-03 06:39] LABS: Blood Urea Nitrogen 4 mg/dL (9-20); Calcium 8.9 mg/dL (8.4-10.2); Carbon Dioxide 25 mmol/L (22-30); Chloride 107 mmol/L (98-107); Estimated CRCL calculation 172 ml/min; Estimated Glomerular Filt Rate > 60; Glucose 128 mg/dL (75-110); Potassium 4.4 mmol/L (3.4-5.0); Sodium 139 mmol/L (137-145)
[2019-09-03 06:47] LABS: Lactate Dehydrogenase 782 U/L (313-618)
[2019-09-03] MEDS: FOLIC ACID 1 MG TABLET PO (09:22)
[2019-09-03] MEDS: SODIUM CHLORIDE 0.9% IV 1,000 ML 100 ML IV CONT ×2 (09:22→18:53)
[2019-09-03] MEDS: HYDROXYUREA (*CHEMO) 500 MG CAPSULE PO ×2 (09:22→17:22)
[2019-09-03] MEDS: ENOXAPARIN 100 MG/ML SYRINGE SUB-Q ×2 (11:41→22:03)
--- NOTE | 2019-09-03 16:19 | PM.IMPN ---
Progress Note: A&P Assessment and Plan (1) Sickle-cell disease with pain: Code(s): D57.00 - Hb-SS disease with crisis, unspecified Status: Acute Assessment and Plan: For the most part, his labs appear to be around baseline however his LDH is once again slightly elevated and will recheck again in a.m. Continue methadone and oxycodone; add Dilaudid for breakthrough pain. He is receiving IV fluid rehydration. Will also continue hydroxyurea and folic acid. (2) Chronic pain syndrome: Code(s): G89.4 - Chronic pain syndrome Status: Chronic Assessment and Plan: As detailed above, will continue with his home pain regimen to include methadone and oxycodone. Given repeated hospitalizations, needs to be in a pain management setting and apparently was in the past but he did not get along with the provider there who apparently accused him of drug-seeking Conversely, he may very well have opioid induced hyperalgesia, and may benefit from a decrease in opiate dosing. (3) Subtherapeutic international normalized ratio (INR): Code(s): R79.1 - Abnormal coagulation profile Status: Acute Assessment and Plan: He has not taken warfarin since last Saturday as he was unable to get his prescription refill due to his pharmacy being closed on the weekend. He will be started on Lovenox 1 milligram/kilogram b.i.d. initially and restart his warfarin, INR 1.6 today, D # 4 of restarting med. Give 14 mg again today. If INR 1.8 or higher 09/03 will d/c then Subjective Date/time seen: 09/03/19 16:19 Interval history: Date of visit 09/02. 34-year-old black male chronic pain syndrome with history of sickle cell admitted with increasing pain. Labs similar to baseline and feels better since pain meds were increased No fever no chills or other precipitating factor Exam Narrative: Exam Narrative: Blood pressure 124/78 p 76 afebrile General: Well-developed male sitting up in bed watching movies on his laptop HEENT: . Sclerae anicteric. Neck: Supple. Respiratory: Lungs are clear to auscultation bilaterally. Cardiovascular: Regular rate and rhythm with S1-S2. Gastrointestinal: Abdomen is soft, nontender, and nondistended with positive bowel sounds. Skin: Warm and dry. No rash or lesions Extremities: No edema. Radial and pedal pulses intact. Neurological: Alert. Cranial nerves 2-12 are grossly intact. No gross focal deficits to casual conversation. Psychiatric: Pleasant and cooperative with normal mood and affect. Judgment and insight intact. Objective Data Vital Signs Vital Signs: Vital Signs - 24 hr 09/02/19 19:30 09/02/19 20:00 09/02/19 23:54 Temperature 36.2 C L 37.2 C Pulse Rate 85 86 102 H Respiratory Rate 16 18 Blood Pressure 130/81 141/82 H Pulse Oximetry 99 95 09/03/19 00:00 09/03/19 04:00 09/03/19 05:50 Temperature 37.2 C Pulse Rate 111 H 86 93 Respiratory Rate 18 Blood Pressure 120/75 Pulse Oximetry 100 09/03/19 08:00 09/03/19 12:00 09/03/19 14:00 Temperature 36.0 C L Pulse Rate 83 79 89 Respiratory Rate 18 Blood Pressure 125/78 Pulse Oximetry 99 09/03/19 16:00 Temperature Pulse Rate 77 Respiratory Rate Blood Pressure Pulse Oximetry Intake/Output Intake/Output: Intake & Output 08/31/19 09/01/19 09/02/19 09/03/19 23:59 23:59 23:59 23:59 Intake Total 1100 4151 5550 1280 Output Total 3800 4275 2025 Balance 2903 920 6717 -815 Meds/Results Medications: Active Medications Generic Name Dose Route Start Last Admin Trade Name Freq PRN Reason Stop Dose Admin Dextrose 12.5 gm 08/31/19 23:50 Dextrose 50% Syringe IV PUSH PRN PRN Hypoglycemia Protocol Enoxaparin Sodium 100 mg 08/31/19 23:00 09/03/19 11:41 Lovenox SUB-Q 100 mg Q1
--- NOTE | 2019-09-03 17:17 | WPDONCPN ---
Progress Note: A/P - Additional Plan Sickle cell anemia with sickle cell crisis. Labs reviewed. Hemoglobin has improved but LDH remains elevated. Clinically patient is still having significant amount of discomfort. Continue IV hydration along with current pain treatment protocol. Recurrent pulmonary embolism. INR has improved to 1.6 today. Continue current dose of Coumadin along with Lovenox until INR is more than 2. - Time Spent With Patient Total time spent is greater than 50% in coordination of care (as documented) at patient's floor/unit and/or counseling patient: 15 - 25 minutes Subjective Interval history: Sickle cell anemia with crisis Recurrent pulmonary embolism Review of Systems - Review of Systems Patient looks comfortable. He has improvement in back pain but is still has upper extremities pain. He denies any fevers and chills. Denies any bleeding and bruising. Exam Narrative: Lungs are clear to auscultation bilaterally Cardiovascular regular rate rhythm no murmurs Abdomen soft nontender nondistended bowel sounds are positive Extremities no edema PN: Objective Data - Labs CBC & Chem 7: 09/03/19 05:46 09/03/19 05:46 Labs: Laboratory Results - last 24 hr 09/03/19 09/03/19 09/03/19 05:46 05:46 05:46 WBC 14.1 H RBC 3.08 L Hgb 10.1 L Hct 28.3 L MCV 91.9 MCH 32.8 MCHC 35.7 RDW 15.5 H Plt Count 365 MPV 10.2 Immature Gran % (Auto) 0.3 Neut % (Auto) 50.6 Lymph % (Auto) 42.2 [place] % (Auto) 6.1 Eos % (Auto) 0.4 Baso % (Auto) 0.4 Lymph # (Auto) 5.96 H [place] # (Auto) 0.9 H Eos # (Auto) 0.1 Baso # (Auto) 0.1 Abs Immat Gran (auto) 0.04 H Absolute Neuts (auto) 7.2 H Absolute Nucleated RBC 0.0 Nucleated RBC % 0.3 H PT 19.0 H INR 1.6 Sodium 139 Potassium 4.4 Chloride 107 Carbon Dioxide 25 BUN 4 L Creatinine 0.60 L Estim Creat Clear Calc 172 Estimated GFR > 60 Glucose 128 H Calcium 8.9 Lactate Dehydrogenase 782 H
[2019-09-03] MEDS: WARFARIN (*PBKC) 4 MG TABLET PO (17:22)
[2019-09-03] MEDS: WARFARIN (*PBKC) 10 MG TABLET PO (17:23)
[2019-09-04] MEDS: HYDROMORPHONE HCL 2 MG/ML VIAL 3 MG IV PUSH ×8 (01:18→23:07)
[2019-09-04] MEDS: SODIUM CHLORIDE 0.9% IV 1,000 ML 100 ML IV CONT ×3 (04:21→23:06)
[2019-09-04 04:55] VITALS: BP 134/88; PULSE 68; RESP 14; TEMP 36.4; O2SAT 96
[2019-09-04 05:57] LABS: INR 2.4; Prothrombin Time 25.5 Seconds (11.1-14.7)
[2019-09-04 05:58] LABS: Hematocrit 28.9 % (42.0-52.0); Hemoglobin 10.3 g/dL (14.0-18.0); Immature Platelet Fraction Pct 4.4 % (0.9-11.2); Immature Reticulocyte Fraction 29.2 % (3.0-15.9); Mean Corpuscular HGB Conc 35.6 g/dl (32-36); Mean Corpuscular Hemoglobin 32.7 pg (26-34); Mean Corpuscular Volume 91.7 fl (80-100); Mean Platelet Volume 10.3 fl (7.4-10.4); Platelet Count Result 327 k/mm3 (150-375); Red Blood Count 3.15 M/mm3 (4.6-6.20); Red Cell Distribution Width 14.9 % (11.5-14.5); Reticulocyte Hemoglobin Conten 34.2 pg (28.2-35.7); Reticulocyte Percent 6.21 % (0.7-4.3); White Blood Count 11.1 K/mm3 (4.5-10.0)
[2019-09-04 06:00] LABS: Lactate Dehydrogenase 677 U/L (313-618)
[2019-09-04 06:29] LABS: Eosinophils Absolute Manual 0.33 K/mm3 (0.02-0.5); Eosinophils Percent Manual 3 % (0-4); Lymphocytes Absolute Manual 6.21 K/mm3 (1.1-4.5); Monocytes Absolute Manual 0.55 K/mm3 (0.1-0.90); Monocytes Percent Manual 5 % (3-9); Neutrophils Percent Manual 36 % (46-73); Nucleated Red Blood Cells 2 %; Platelet Estimate Adequate (Adequate); Total Cells Counted 100
[2019-09-04 06:30] LABS: Polychromasia 1+ (NORMAL); Sickle Cells 1+ (NORMAL); Target Cells 1+ (NORMAL)
[2019-09-04 08:24] VITALS: RESP 16; O2SAT 95
[2019-09-04] MEDS: FOLIC ACID 1 MG TABLET PO (08:24)
[2019-09-04] MEDS: HYDROXYUREA (*CHEMO) 500 MG CAPSULE PO ×2 (08:24→17:10)
[2019-09-04 14:00] VITALS: BP 125/88; PULSE 79; RESP 16; TEMP 36.3; O2SAT 98
--- NOTE | 2019-09-04 15:39 | PM.IMPN ---
Progress Note: A&P Assessment and Plan (1) Sickle-cell disease with pain: Code(s): D57.00 - Hb-SS disease with crisis, unspecified Status: Acute Assessment and Plan: Follows with Dr. Marks as an outpatient. Discussed with Dr. Marks today who has been following patient while in hospital. LDH still elevated but continuing to improve with LDH down to 677 today. Pain appears to have improved. Continue methadone and oxycodone. IV Dilaudid is available for breakthrough pain. Also remains on hydroxyurea and folic acid. Anticipate discharge tomorrow. Per Dr. Marks, he will take care of prescriptions for pain medications through his office as he has discussed adjusting patient's oxycodone dose. (2) Chronic pain syndrome: Code(s): G89.4 - Chronic pain syndrome Status: Chronic Assessment and Plan: Pain management regimen as above per Dr. Marks. Would benefit from pain management and/or decrease in opioid dosing but will need to be addressed as an outpatient. (3) Subtherapeutic international normalized ratio (INR): Code(s): R79.1 - Abnormal coagulation profile Status: Acute Assessment and Plan: Prior to admission, patient had not taken warfarin since last Saturday as unable to fill his prescription. Has been on therapeutic Lovenox along with warfarin. INR 2.4 today with Lovenox discontinued. Will continue warfarin 14 mg daily. Continue to monitor INR. Time Spent With Patient Time with patient: 15 - 25 minutes Subjective Date/time seen: 09/04/19 15:39 Interval history: Date of Service: 09/04/2019. Admitted with sickle cell crisis/exacerbation chronic pain syndrome. Patient states he was feeling better this morning but began having pain in his legs this afternoon after going to the bathroom. Hoping to go home soon. No chest pain or shortness of breath. No abdominal pain. No fever chills. Review of Systems Review of Systems: Narrative: Improving. Constitutional: Constitutional: Denies chills and Denies fever(s) ENT: Denies dysphagia Cardiovascular: Cardiovascular: Denies chest pain Respiratory: Respiratory: Denies dyspnea Gastrointestinal: Gastrointestinal: Denies abdominal pain, Denies nausea and Denies vomiting Genitourinary: Genitourinary: Reports no additional male genitourinary complaints Musculoskeletal: Comments: Bilateral lower extremity pain Integumentary/Breasts: Skin/Breast: Denies rash Neurologic: Denies headache(s) Psychiatric: Psychiatric: Denies anxiety, Denies confusion and Denies depression Exam Narrative: Exam Narrative: Awake and alert. Watching movies on his laptop. Const: General: no acute distress HENMT: Mouth: Yes moist mucous membranes Eyes: Sclera: sclerae normal Neck: Neck: supple Lymphatic: lymphadenopathy not noted Resp: Auscultation: clear to auscultation bilaterally, no rales and no wheezes Cardio: Rate: regular rate Rhythm: regular rhythm GI: Inspection: non-distended GI Palp: Yes Soft to palpation and No Tenderness to palpation present (GI) Auscultation: normal bowel sounds Skin: General skin exam: normal color Neuro: Cognition (Neuro): normal cognition Speech: normal speech Extrem: General: no edema Psych: Mental Status: mental status grossly normal Affect: normal affect Objective Data Vital Signs Vital Signs: Vital Signs - 24 hr 09/03/19 16:00 09/03/19 19:38 09/04/19 04:55 Temperature 98.6 F 97.5 F L Pulse Rate 77 70 68 Respiratory Rate 18 14 Blood Pressure 132/73 134/88 Pulse Oximetry 95 96 09/04/19 08:24 Temperature Pulse Rate Respiratory Rate 16 Blood Pressure Pulse Oximetry 95 Intake/Output Intake/Output: Intake & Output 09/01/19 09/02/19 09/03/19 09/04/19 23:59 23:59 23:59 23:59 Intake Total 4151 5550 2530 2200 Output Total 3800 4275 2700 2627 Balance 351 9899 -740 -165 Meds/Results Medications: Active Medications Generic Name Dose Route Start
[2019-09-04] MEDS: WARFARIN (*PBKC) 4 MG TABLET PO (17:10)
[2019-09-04] MEDS: WARFARIN (*PBKC) 10 MG TABLET PO (17:11)
[2019-09-04 19:59] VITALS: BP 142/84; PULSE 77; RESP 16; TEMP 36.3; O2SAT 99
[2019-09-05] MEDS: HYDROMORPHONE HCL 2 MG/ML VIAL 3 MG IV PUSH ×5 (02:12→16:57)
[2019-09-05 05:04] VITALS: BP 135/84; PULSE 79; RESP 14; TEMP 36.5; O2SAT 97
[2019-09-05 06:08] LABS: INR 2.7; Prothrombin Time 27.8 Seconds (11.1-14.7)
[2019-09-05 08:00] VITALS: PULSE 80; RESP 16; O2SAT 97
[2019-09-05] MEDS: HYDROXYUREA (*CHEMO) 500 MG CAPSULE PO ×2 (08:58→16:08)
[2019-09-05] MEDS: FOLIC ACID 1 MG TABLET PO (08:58)
[2019-09-05] MEDS: SODIUM CHLORIDE 0.9% IV 1,000 ML 100 ML IV CONT (09:05)
[2019-09-05 14:00] VITALS: BP 136/87; PULSE 90; RESP 14; TEMP 36.1; O2SAT 100
[2019-09-05] MEDS: WARFARIN (*PBKC) 10 MG TABLET PO (16:08)
[2019-09-05] MEDS: WARFARIN (*PBKC) 4 MG TABLET PO (16:08)
--- NOTE | 2019-09-05 17:11 | PM.DS ---
DS: Admitting Diagnosis Admitting Diagnosis Admitting Diagnosis: Hb-SS disease with crisis, unspecified DS: Discharge Diagnosis Discharge Diagnosis (1) Sickle-cell disease with pain: Code(s): D57.00 - Hb-SS disease with crisis, unspecified Status: Acute Assessment and Plan: Follows with Dr. Marks as an outpatient. Dr. Steward Discussed with Dr. Marks 09/03 who has been following patient while in hospital. LDH still elevated but continuing to improve with LDH down to 677 today. Pain appears to have improved. Continue methadone and oxycodone. IV Dilaudid was available for breakthrough pain. Also remains on hydroxyurea and folic acid. discharge today 09/[address] Marks, he will take care of prescriptions for pain medications through his office as he has discussed adjusting patient's oxycodone dose.(scripts for methadone # 10 and oxycodone 10mg #20 given until has above filled) (2) Chronic pain syndrome: Code(s): G89.4 - Chronic pain syndrome Status: Chronic Assessment and Plan: Pain management regimen as above per Dr. Marks. Would benefit from pain management and/or decrease in opioid dosing but will need to be addressed as an outpatient. (3) Subtherapeutic international normalized ratio (INR): Code(s): R79.1 - Abnormal coagulation profile Status: Acute Assessment and Plan: Prior to admission, patient had not taken warfarin since last Saturday as unable to fill his prescription. Has been on therapeutic Lovenox along with warfarin. INR 2.7 at discharge Will continue warfarin 14 mg daily. INR.next week with dr Marks DS: Summary Hospital Course Hospital Course: 34-year-old sickle cell patient admitted with increasing pain. Treated with his narcotics and hydration. Slowly improved. Hemoglobin remained and changes 10.3 discharge. [place] of hemolysis was a minimal by parameters. He was the therapeutic on INR and was given Lovenox full-dose until his on 2.4. INR was 2.7 at discharge on 14 mg daily and will have an INR drawn next week Continue on his methadone 10 b.i.d. and oxycodone was increased to 10 Q 4 to be adjusted by Time Spent with Patient Time attestation: Total time spent providing and/or coordinating discharge services: 35 minutes Exam Narrative: Exam Narrative: Condition on discharge Blood pressure 136/84 pulse is 90 Lungs clear CV regular rate rhythm Abdomen is soft nontender Extremities without edema distal pulses are 2+ Neuro alert pleasant cooperative no focal deficits DS: Data Data Completed and Pending Labs on day of discharge: Labs from last 24 hours 09/05/19 05:52 PT 27.8 H INR 2.7 Discharge Plan Discharge Attending physician on discharge: Gildardo Gutierrez Consulting providers: Halina Oconnell Discharging Clinician: Gildardo Gutierrez Patient Disposition: Home, Self-Care Activity: as tolerated Diet: regular Patient Instructions: Antibiotic Form, Warfarin (By mouth), Pain Management (DC), Sickle Cell Crisis (DC), Blood Thinners (DC) Stand Alone Forms: General Discharge Information Follow-up/Referrals: Jone Marks MD [Primary Care Provider] - 09/09/19 Discharge Medications: New oxycodone 10 mg tablet 10 mg PO Q4H PRN (Reason: pain) Qty: 20 RF: 0 warfarin 2 mg tablet 4 mg PO DAILY Qty: 60 RF: 0 warfarin [Coumadin] 10 mg Tablet 10 mg PO DAILY@1700 Qty: 30 RF: 0 methadone [Dolophine] 10 mg Tablet 10 mg PO BID Qty: 10 RF: 0 Continued hydroxyurea [Hydrea] 500 mg Capsule 500 mg PO BID RF: 0 folic acid 1 mg Tablet 1 mg PO DAILY RF: 0 Discontinued methadone [Dolophine] 10 mg Tablet 10 mg PO BID RF: 0 oxycodone 7.5 mg Tablet, Oral Only 7.5 mg PO Q4-6H PRN (Reason: Breakthrough Pain) RF: 0 warfarin [Coumadin] 10 mg tablet 13 mg PO QPM RF: 0 ibuprofen 800 mg Tablet 800 mg PO TID PRN (Reason: Headache) RF: 0 warfarin [Coumadin
== END 2019-09-05 17:40 | disposition home or self-care (01) ==
LOC: ANHED 19:20 → ANH3MED 22:01
PROVIDERS: Emergency Medicine; Physician Assistant; Admitting Provider Family Medicine; Emergency Provider General Practice; PCP Internal Medicine Hematology & Oncology; Visit Provider Internal Medicine
DX: D57.00 Hb-SS disease with crisis, unspecified (principal); G89.4 Chronic pain syndrome; R79.1 Abnormal coagulation profile; Z79.01 Long term (current) use of anticoagulants; Z79.891 Long term (current) use of opiate analgesic; Z86.711 Personal history of pulmonary embolism; Z86.718 Personal history of other venous thrombosis and embolism
CPT/HCPCS: 36415; 71046; 80048; 80053; 81003; 83615; 84484; 85025; 85046; 85055; 85610; 85730; 93005; 96361; 96365; 96372; 96374; 96375; 96376; 99285; A9270; G0378; G0379; J0131; J1170; J1650; J1885; J2405; J7030

== ENCOUNTER 2019-09-18 11:34 | Outpatient (CLI) | payer OTHER, SELFPAY ==
[2019-09-18 11:49] LABS: Basophils Percent Auto 0.5 % (0.2-1.2); Eosinophils Absolute Auto 0.2 K/mm3 (0-0.3); Eosinophils Percent Auto 2.1 % (0-4.4); Hematocrit 30.3 % (42.0-52.0); Hemoglobin 10.7 g/dL (14.0-18.0); Immature Granulocyte Absolute 0.01 K/mm3 (0.00-0.031); Immature Granulocyte Percent A 0.1 % (0-0.5); Lymphocytes Absolute Auto 2.66 K/mm3 (0.9-3.2); Lymphocytes Percent Auto 32.7 % (18.3-44.2); Mean Corpuscular HGB Conc 35.3 g/dl (32-36); Mean Corpuscular Hemoglobin 32.8 pg (26-34); Mean Corpuscular Volume 92.9 fl (80-100); Mean Platelet Volume 9.9 fl (7.4-10.4); Monocytes Absolute Auto 0.9 K/mm3 (0.1-0.6); Monocytes Percent Auto 10.6 % (2.6-8.5); Neutrophils Absolute Auto 4.4 K/mm3 (1.3-6.7); Nucleated Red Blood Cells Perc 0.2 % (0.0-0.2); Platelet Count Result 380 k/mm3 (150-375); Red Blood Count 3.26 M/mm3 (4.6-6.20); Red Cell Distribution Width 15.8 % (11.5-14.5); White Blood Count 8.1 K/mm3 (4.5-10.0)
[2019-09-18 14:42] LABS: INR 2.7
== END 2019-09-18 11:35 | disposition home or self-care (01) ==
PROVIDERS: Visit Provider Internal Medicine Hematology & Oncology
DX: D57.20 Sickle-cell/Hb-C disease without crisis (principal)
CPT/HCPCS: 36415; 85025; 85610

== ENCOUNTER 2019-10-02 10:29 | Emergency (ER) | payer OTHER, SELFPAY ==
[2019-10-02 10:45] VITALS: BP 127/90; PULSE 92; RESP 16; TEMP 37.1; O2SAT 94
--- NOTE | 2019-10-02 11:10 | ED.GENADULT ---
HPI - General Adult General Chief complaint: Unspecified Stated complaint: Sickle Cell pain Time Seen by Provider: 10/02/19 10:31 Source: patient Mode of arrival: ambulatory Limitations: no limitations History of Present Illness HPI narrative: Patient is a 34-year-old male who presents to emergency department for evaluation of sickle cell crisis related pain to the thighs chest and back consistent with chronic exacerbations has been compliant with his medications prescribed by heme-onc and is followed by Dr. Marks. Patient denies recent illness sick contacts injury or trauma. Related Data Home Medications Medication Instructions Recorded Confirmed folic acid 1 mg PO DAILY 02/16/19 08/31/19 hydroxyurea [Hydrea] 500 mg PO BID 02/16/19 08/31/19 oxycodone-acetaminophen 10/02/19 Allergies Allergy/AdvReac Type Severity Reaction Status Date / Time Fish Containing Products Allergy Intermediate Itching Verified 10/02/19 11:14 Review of Systems Review of Systems: All systems reviewed & are unremarkable except as noted in HPI and below PMFSH Past Medical History Medical History Acute chest syndrome Chronic narcotic use Methadone with oxycodone for breakthrough pain. Chronic pain syndrome History of deep vein thrombosis (DVT) of lower extremity History of pulmonary embolism Pulmonary embolism Sickle cell disease, type SC Surgical History Surgical History History of hand surgery Tendon surgery on right 5th finger. Social History Social History Social History: The patient lives in [place] with his family. He is on disability due to sickle cell disease and chronic pain. He designates his mother, Mary Jane Zuniga, as his surrogate decision maker and he wishes to be a full code. He is a lifelong nonsmoker and denies alcohol and drug use. Smoking status: Never smoker Second hand tobacco smoke exposure: Yes Alcohol intake: never Substance use: never Substance use type: does not use Additional occupation/education comments: Gender identity (if verbalized by the patient): Male Spiritual care concerns: No Agree to blood products: Yes Exam Narrative: Exam Narrative: GENERAL: Well-appearing, well-nourished, and in no acute distress. HEAD: Normocephalic, atraumatic. EYES: PERRLA and EOMI. ENT: Nares clear, no rhinorrhea or epistaxis. Mucous membranes moist. NECK: Supple. No adenopathy or masses. CHEST: Clear to auscultation. No respiratory distress. No wheezes rales or rhonchi HEART: Regular rate and rhythm. No murmur heard. Normal peripheral pulses. ABDOMEN: Soft, nontender, nondistended EXTREMITIES: Normal range of motion. No edema. SKIN: Warm, dry, no rash. NEURO: No focal deficits. Alert and oriented x3. Cranial nerves II through XII grossly intact PSYCH: Normal mood and affect. Course Course Emergency Course: Patient is a 34-year-old male who has a history of sickle cell pain crisis presenting requiring multiple doses of Dilaudid without high risk changes in his blood work or imaging patient is afebrile nontoxic-appearing aware of recommendations of his specialist Consultations Consultation #1: Discussed case with the hospitalist who is concern for patient's drug-seeking behavior Discussed case with patient's heme-onc doctor who has recently increased his medications and given the findings recommends that the patient be discharged for follow-up on an outpatient basis Date: 10/02/19 Time: 14:00 Vital Signs Vital signs: Vital Signs Temperature 98.7 F 10/02/19 10:45 Pulse Rate 92 10/02/19 10:45 Respiratory Rate 16 10/02/19 10:45 Blood Pressure 127/90 10/02/19 10:45 Pulse Oximetry 94 10/02/19 10:45 Temperature 98.7 F 10/02/19 10:45 Pulse Rate 76 10/02/19 12:40 Respiratory Rate 18 10/02/19
[2019-10-02] MEDS: FAMOTIDINE 20 MG/2 ML VIAL IV PUSH (11:21)
[2019-10-02] MEDS: SODIUM CHLORIDE 0.9% IV 1,000 ML 999 ML IV CONT (11:21)
[2019-10-02] MEDS: HYDROMORPHONE HCL 1 MG/ML INJ 2 MG IV PUSH ×2 (11:25→12:38)
[2019-10-02 11:48] LABS: Basophils Absolute Auto 0.1 K/mm3 (0.0-0.1); Basophils Percent Auto 0.7 % (0.2-1.2); Eosinophils Absolute Auto 0.2 K/mm3 (0-0.3); Hematocrit 29.8 % (42.0-52.0); Hemoglobin 10.6 g/dL (14.0-18.0); Immature Granulocyte Absolute 0.01 K/mm3 (0.00-0.031); Immature Granulocyte Percent A 0.1 % (0-0.5); Immature Reticulocyte Fraction 31.8 % (3.0-15.9); Lymphocytes Absolute Auto 3.43 K/mm3 (0.9-3.2); Mean Corpuscular HGB Conc 35.6 g/dl (32-36); Mean Corpuscular Hemoglobin 32.2 pg (26-34); Mean Corpuscular Volume 90.6 fl (80-100); Mean Platelet Volume 10.5 fl (7.4-10.4); Monocytes Absolute Auto 0.7 K/mm3 (0.1-0.6); Monocytes Percent Auto 9.3 % (2.6-8.5); Neutrophils Absolute Auto 3.2 K/mm3 (1.3-6.7); Neutrophils Percent Auto 41.9 % (45.5-73.1); Nucleated Red Blood Cells Perc 0.3 % (0.0-0.2); Platelet Count Result 312 k/mm3 (150-375); Red Blood Count 3.29 M/mm3 (4.6-6.20); Red Cell Distribution Width 14.4 % (11.5-14.5); Reticulocyte Hemoglobin Conten 33.1 pg (28.2-35.7); Reticulocyte Percent 5.17 % (0.7-4.3); Reticulocytes Absolute 0.17 B/L (32.2-175.7); White Blood Count 7.6 K/mm3 (4.5-10.0)
[2019-10-02 12:00] LABS: INR 1.2; Prothrombin Time 14.6 Seconds (11.1-14.7)
[2019-10-02 12:01] LABS: Partial Thromboplastin Time 24.8 SECONDS (22.3-36.8)
[2019-10-02 12:03] LABS: Alanine Aminotransferase 16 U/L (4-50); Albumin Level 4.5 g/dL (3.5-5.1); Alkaline Phosphatase 81 U/L (38-126); Aspartate Amino Transferase 30 U/L (17-59); Bilirubin,Total 1.1 mg/dL (0.2-1.3); Blood Urea Nitrogen 6 mg/dL (9-20); Calcium 8.9 mg/dL (8.4-10.2); Carbon Dioxide 28 mmol/L (22-30); Chloride 106 mmol/L (98-107); Estimated CRCL calculation 147 ml/min; Estimated Glomerular Filt Rate > 60; Glucose 114 mg/dL (75-110); Potassium 3.7 mmol/L (3.4-5.0); Sodium 140 mmol/L (137-145)
[2019-10-02 12:13] LABS: Lactate Dehydrogenase 632 U/L (313-618)
[2019-10-02 12:35] LABS: Add Urine Microscopic? NO; Appearance Urine Clear (Clear); Bilirubin Urine Negative (Negative); Blood Urine Negative (Negative); Color Urine Yellow (Yellow); Glucose Urine UA Negative (Negative); Ketones Urine Negative (Negative); Leukocyte Esterase Ur Negative LEU/UL (Negative); Nitrate Urine Negative (Negative); Protein Urine Negative (Negative); Specific Grav Ur 1.012 (1.001-1.035); Urobilinogen Urine Negative mg/dL (<2.0)
[2019-10-02 12:40] VITALS: BP 134/71; PULSE 76; RESP 18; O2SAT 99
[2019-10-02 12:45] LABS: Platelet Estimate Adequate (Adequate); Sickle Cells 1+ (NORMAL); Target Cells 2+ (NORMAL)
[2019-10-02 12:49] LABS: Amphetamine Screen Urine Negative (Negative); Barbiturate Screen Urine Negative (Negative); Benzodiazepines Screen Urine Negative (Negative); Cannabinoid Screen Urine Negative (Negative); Cocaine Screen Urine Negative (Negative); Methadone Screen Urine Positive (Negative); Opiate Screen Urine Positive (Negative); Phencyclidine Screen Urine Negative (Negative)
[2019-10-02 14:46] VITALS: BP 161/90; PULSE 78; RESP 20; O2SAT 99
== END 2019-10-02 14:48 | disposition home or self-care (01) ==
PROVIDERS: Emergency Medicine Emergency Medical Services; Emergency Provider Emergency Medicine
DX: G89.4 Chronic pain syndrome (principal); D57.219 Sickle-cell/Hb-C disease with crisis, unspecified; Z86.711 Personal history of pulmonary embolism
CPT/HCPCS: 36415; 80053; 80307; 81003; 83615; 85025; 85046; 85610; 85730; 96361; 96365; 96375; 96376; 99284; J0131; J1170; J1200; J7030

== ENCOUNTER 2019-10-04 19:08 | Emergency (ER) | payer OTHER, SELFPAY ==
--- NOTE | ~2019-10-04 | XR_ITS ---
EXAMINATION: XR chest 1V portable DATE: 10/04/2019 20:01 INDICATION: Sickle cell anemia TECHNIQUE: frontal view of the chest was obtained. COMPARISON: Chest radiograph dated 08/31/2019 FINDINGS: Similar pattern of streaky opacities at the bilateral lung bases. No new airspace opacities, pulmonar y edema, pleural effusion or pneumothorax. The cardiomediastinal silhouette is normal. IMPRESSION: 1. Unchanged streaky opacities in the bilateral lower lung zones consistent with chronic sickle cell disease and scarring. No new acute lung disease appreciated. Reviewed, dictated and finalized at location A. IMPRESSION: 1. Unchanged streaky opacities in the bilateral lower lung zones consistent wit h chronic sickle cell disease and scarring. No new acute lung disease appreciat ed.
[2019-10-04 19:19] VITALS: BP 122/77; PULSE 92; RESP 20; TEMP 36.9; O2SAT 98
--- NOTE | 2019-10-04 19:37 | ED.GENADULT ---
HPI - General Adult General Chief complaint: Unspecified Stated complaint: back pain, sickle cell Time Seen by Provider: 10/04/19 19:29 Source: patient History of Present Illness HPI narrative: 34 years old -Bangl[place] male history of sickle cell anemia presents with general back pain arm pain leg pain started 4 to 5 days ago, patient denies any fever, chills, nausea, vomiting, diarrhea, constipation, chest pain, shortness of breath, coughing. . Patient on oxycodone and methadone. Related Data Home Medications Medication Instructions Recorded Confirmed folic acid 1 mg PO DAILY 02/16/19 08/31/19 hydroxyurea [Hydrea] 500 mg PO BID 02/16/19 08/31/19 oxycodone-acetaminophen 10/02/19 Allergies Allergy/AdvReac Type Severity Reaction Status Date / Time Fish Containing Products Allergy Intermediate Itching Verified 10/04/19 19:21 Review of Systems Review of Systems: Narrative: CONSTITUTIONAL: Denies fever, chills, or sweats. EYES: Denies visual changes, redness, or discharge. ENT: Denies rhinorrhea, congestion, sore throat, or otalgia. CARDIOVASCULAR: Denies chest pain, palpitations, or edema. RESPIRATORY: Denies cough or dyspnea. GASTROINTESTINAL: Denies abdominal pain, nausea, vomiting, or diarrhea. GENITOURINARY: Denies dysuria or hematuria. SKIN: Denies rash or itching. MUSCULOSKELETAL: Denies back pain, joint pain, or myalgia. NEUROLOGIC: Denies headache, numbness, or weakness. PSYCHIATRIC: Denies anxiety or depression. [facility] Past Medical History Medical History Acute chest syndrome Chronic narcotic use Methadone with oxycodone for breakthrough pain. Chronic pain syndrome History of deep vein thrombosis (DVT) of lower extremity History of pulmonary embolism Pulmonary embolism Sickle cell disease, type SC Surgical History Surgical History History of hand surgery Tendon surgery on right 5th finger. Family History Family History Grandparent Acute myocardial infarction Sibling Asthma Sibling Asthma Mother Hypertension Son Sickle cell trait Daughter Sickle cell trait Grandparent Diabetes mellitus Social History Social History Social History: The patient lives in [place] with his family. He is on disability due to sickle cell disease and chronic pain. He designates his mother, Mary Jane Zuniga, as his surrogate decision maker and he wishes to be a full code. He is a lifelong nonsmoker and denies alcohol and drug use. Smoking status: Never smoker Second hand tobacco smoke exposure: Yes Alcohol intake: never Substance use: never Substance use type: does not use Additional occupation/education comments: Gender identity (if verbalized by the patient): Male Spiritual care concerns: No Agree to blood products: Yes Exam Narrative: Exam Narrative: General appearance: Well-developed, well-nourished, looks restless, diffuse muscular tenderness Skin: Normal color Head: Normocephalic, nontraumatic Eyes: Clear conjunctiva ENT: Oropharynx normal, ears normal, nose normal Neck: Supple, nontender Chest and respiratory: Airway patent, no respiratory distress, no accessory muscle use Heart: Regular rate/rhythm Abdomen: Soft, nontender, no organomegaly, quiet bowel sounds Vascular: Normal peripheral pulses, normal capillary refill. Musculoskeletal: Normal range of motion, nontender back Neurologic: Alert and oriented ?3, [employer] is normal as tested, no gross motor deficit Course Course Emergency Cou
[2019-10-04] MEDS: HYDROMORPHONE HCL 1 MG/ML INJ 0.5 MG IV PUSH (19:48)
[2019-10-04] MEDS: ONDANSETRON INJ 4 MG/2 ML VIAL IV PUSH (19:49)
[2019-10-04 20:00] LABS: Hematocrit 31.3 % (42.0-52.0); Hemoglobin 11.2 g/dL (14.0-18.0); Mean Corpuscular HGB Conc 35.8 g/dl (32-36); Mean Corpuscular Hemoglobin 32.2 pg (26-34); Mean Corpuscular Volume 89.9 fl (80-100); Mean Platelet Volume 10.5 fl (7.4-10.4); Platelet Count Result 331 k/mm3 (150-375); Red Blood Count 3.48 M/mm3 (4.6-6.20); Red Cell Distribution Width 14.3 % (11.5-14.5)
[2019-10-04] MEDS: KETOROLAC 30 MG/ML VIAL (*BKC) IV PUSH (20:01)
[2019-10-04] MEDS: SODIUM CHLORIDE 0.9% IV 1,000 ML 999 ML IV CONT (20:01)
[2019-10-04 20:04] LABS: Immature Reticulocyte Fraction 29.9 % (3.0-15.9); Reticulocyte Percent 4.64 % (0.7-4.3); Reticulocytes Absolute 0.16 B/L (32.2-175.7)
[2019-10-04 20:07] LABS: Lymphocytes Absolute Manual 5.28 K/mm3 (1.1-4.5); Monocytes Absolute Manual 0.66 K/mm3 (0.1-0.90); Monocytes Percent Manual 6 % (3-9); Neutrophils Percent Manual 46 % (46-73); Platelet Estimate Adequate (Adequate); Total Cells Counted 100
[2019-10-04 20:09] LABS: Target Cells 1+ (NORMAL)
[2019-10-04 20:11] LABS: Alanine Aminotransferase 17 U/L (4-50); Albumin Level 4.7 g/dL (3.5-5.1); Alkaline Phosphatase 85 U/L (38-126); Aspartate Amino Transferase 38 U/L (17-59); Bilirubin,Total 1.1 mg/dL (0.2-1.3); Blood Urea Nitrogen 8 mg/dL (9-20); Carbon Dioxide 26 mmol/L (22-30); Chloride 108 mmol/L (98-107); Estimated Glomerular Filt Rate > 60; Glucose 100 mg/dL (75-110); Potassium 3.9 mmol/L (3.4-5.0); Sodium 141 mmol/L (137-145)
[2019-10-04 20:13] LABS: Schistocytes 1+ (NORMAL)
[2019-10-04 21:05] LABS: Add Urine Microscopic? YES; Appearance Urine Clear (Clear); Bilirubin Urine Negative (Negative); Blood Urine Negative (Negative); Color Urine Yellow (Yellow); Glucose Urine UA Negative (Negative); Ketones Urine Negative (Negative); Leukocyte Esterase Ur Negative LEU/UL (Negative); Mucus Urine Few /lpf; Nitrate Urine Negative (Negative); Protein Urine Negative (Negative); Specific Grav Ur 1.012 (1.001-1.035); Squamous Epithelial Cell Urine Rare /hpf (Few); WBC Urine 0-3 /hpf
[2019-10-04] MEDS: HYDROMORPHONE HCL 1 MG/ML INJ IV PUSH (21:14)
[2019-10-04 21:22] LABS: Lactate Dehydrogenase 763 U/L (313-618)
[2019-10-04 21:35] VITALS: BP 132/71; PULSE 88; RESP 18; O2SAT 98
== END 2019-10-04 21:36 | disposition home or self-care (01) ==
PROVIDERS: Emergency Provider Emergency Medicine
DX: D57.219 Sickle-cell/Hb-C disease with crisis, unspecified (principal); G89.4 Chronic pain syndrome; Z86.711 Personal history of pulmonary embolism; Z86.718 Personal history of other venous thrombosis and embolism
CPT/HCPCS: 36415; 71045; 80053; 81001; 83615; 85025; 85046; 96361; 96374; 96375; 96376; 99284; J1170; J1885; J2405; J7030

== ENCOUNTER 2019-11-05 09:09 | Emergency (ER) | payer OTHER, SELFPAY ==
[2019-11-05] VITALS (7 sets, daily range): BP systolic 112–127; BP diastolic 65–94; PULSE 67–89; RESP 12–18; TEMP 36.7; O2SAT 94–99
--- NOTE | 2019-11-05 09:27 | ED.GENADULT ---
HPI - General Adult General Chief complaint: Unspecified Stated complaint: sickle cell pain Time Seen by Provider: 11/05/19 09:18 History of Present Illness HPI narrative: Patient presents with his sickle cell pain. He says it is 9 out of 10 on his bilateral ribs and right thigh. He also hurts both legs both arms and his back. He does have some good days. His current pain is been about a week, with increase in the pain last night. He has been taking his outpatient medicine without relief. He is unemployed. His surgeries include the right hand fifth finger x2. He he does not smoke,, or do marijuana, despite positive marijuana on the drug screen previously. He is not been sick otherwise. Onset (ago): day(s) Location: back, upper extremity and lower extremity Severity: severe Severity scale (1-10): 9 Pain Consistency: constant Relieving factors: none Exacerbating factors: movement Associated symptoms: denies other symptoms Related Data Home Medications Medication Instructions Recorded Confirmed folic acid 1 mg PO DAILY 02/16/19 08/31/19 hydroxyurea [Hydrea] 500 mg PO BID 02/16/19 08/31/19 oxycodone-acetaminophen 10/02/19 Allergies Allergy/AdvReac Type Severity Reaction Status Date / Time Fish Containing Products Allergy Intermediate Itching Verified 10/04/19 19:21 Review of Systems Review of Systems: Narrative: CONSTITUTIONAL: Denies fever, chills, or sweats. EYES: Denies visual changes, redness, or discharge. ENT: Denies rhinorrhea, congestion, sore throat, or otalgia. CARDIOVASCULAR: Denies chest pain, palpitations, or edema. RESPIRATORY: Denies cough or dyspnea. GASTROINTESTINAL: Denies abdominal pain, nausea, vomiting, or diarrhea. GENITOURINARY: Denies dysuria or hematuria. SKIN: Denies rash or itching. MUSCULOSKELETAL: He has back pain, joint pain, and myalgia. NEUROLOGIC: Denies headache, numbness, or weakness. PSYCHIATRIC: Denies anxiety or depression. All systems reviewed & are unremarkable except as noted in HPI and below PMFSH Past Medical History Medical History Acute chest syndrome Chronic narcotic use Methadone with oxycodone for breakthrough pain. Chronic pain syndrome History of deep vein thrombosis (DVT) of lower extremity History of pulmonary embolism Pulmonary embolism Sickle cell disease, type SC Surgical History Surgical History History of hand surgery Tendon surgery on right 5th finger. Social History Social History Social History: The patient lives in [place] with his family. He is on disability due to sickle cell disease and chronic pain. He designates his mother, Mary Jane Zuniga, as his surrogate decision maker and he wishes to be a full code. He is a lifelong nonsmoker and denies alcohol and drug use. Smoking status: Never smoker Second hand tobacco smoke exposure: Yes Alcohol intake: never Substance use: never Substance use type: does not use Additional occupation/education comments: Gender identity (if verbalized by the patient): Male Spiritual care concerns: No Agree to blood products: Yes Exam Narrative: Exam Narrative: GENERAL: Well-appearing, well-nourished, and in no acute distress. HEAD: Normocephalic, atraumatic. EYES: PERRLA and EOMI. ENT: Nares clear, no rhinorrhea or epistaxis. Mucous membranes moist. NECK: Supple. CHEST: Clear to auscultation. No respiratory distress. HEART: Regular rate and rhythm. No murmur heard. Normal peripheral pulses. ABDOMEN: Soft, nontender, nondistended, normal active bowel sounds. EXTREMITIES: Normal range of motion. No edema. SKIN: Warm, dry, no rash. NEURO: No focal deficits. Alert and oriented x3. PSYCH: Normal mood and affect. Const: General: no acute distress and alert Orientation/consciousness: patient oriented x3 Course Reevaluation(s)
[2019-11-05] MEDS: SODIUM CHLORIDE 0.9% IV 1,000 ML 999 ML IV CONT (09:57)
[2019-11-05 10:02] LABS: Basophils Absolute Auto 0.1 K/mm3 (0.0-0.1); Basophils Percent Auto 0.8 % (0.2-1.2); Eosinophils Absolute Auto 0.4 K/mm3 (0-0.3); Eosinophils Percent Auto 4.9 % (0-4.4); Hemoglobin 10.8 g/dL (14.0-18.0); Immature Granulocyte Absolute 0.02 K/mm3 (0.00-0.031); Immature Granulocyte Percent A 0.3 % (0-0.5); Immature Platelet Fraction Pct 3.1 % (0.9-11.2); Immature Reticulocyte Fraction 33.4 % (3.0-15.9); Lymphocytes Absolute Auto 3.47 K/mm3 (0.9-3.2); Mean Corpuscular Hemoglobin 34.1 pg (26-34); Mean Corpuscular Volume 94.6 fl (80-100); Mean Platelet Volume 10.3 fl (7.4-10.4); Monocytes Absolute Auto 0.8 K/mm3 (0.1-0.6); Monocytes Percent Auto 9.9 % (2.6-8.5); Neutrophils Percent Auto 39.1 % (45.5-73.1); Nucleated Red Blood Cells Absolute Auto 0.1 K/mm3 (0.0-0.012); Nucleated Red Blood Cells Perc 0.6 % (0.0-0.2); Platelet Count Result 341 k/mm3 (150-375); Red Blood Count 3.17 M/mm3 (4.6-6.20); Red Cell Distribution Width 16.3 % (11.5-14.5); Reticulocyte Hemoglobin Conten 35.6 pg (28.2-35.7); Reticulocyte Percent 5.39 % (0.7-4.3); Reticulocytes Absolute 0.17 B/L (32.2-175.7); White Blood Count 7.7 K/mm3 (4.5-10.0)
[2019-11-05 10:14] LABS: Alanine Aminotransferase 76 U/L (4-50); Albumin Level 4.3 g/dL (3.5-5.1); Alkaline Phosphatase 92 U/L (38-126); Anion Gap 9.8 mmol/L (7-16); Aspartate Amino Transferase 69 U/L (17-59); Blood Urea Nitrogen 7 mg/dL (9-20); Calcium 8.7 mg/dL (8.4-10.2); Carbon Dioxide 27 mmol/L (22-30); Chloride 106 mmol/L (98-107); Estimated CRCL calculation 148 ml/min; Estimated Glomerular Filt Rate > 60; Glucose 104 mg/dL (75-110); Potassium 3.8 mmol/L (3.4-5.0); Sodium 139 mmol/L (137-145)
[2019-11-05 10:15] LABS: Anisocytosis 2+ (NORMAL); Hypochromasia 1+ (NORMAL); Platelet Estimate Adequate (Adequate); Sickle Cells 1+ (NORMAL); Target Cells 1+ (NORMAL)
[2019-11-13 08:18] LABS: Hematocrit 33.5 % (38.5-50.0); MCH 34.1 pg (27.0-33.0); MCV 103.7 FL (80.0-100.0); RDW 18.1 % (11.0-15.0); Red Blood Cell Count 3.23 Mill/uL (4.20-5.80)
== END 2019-11-05 15:17 | disposition home or self-care (01) ==
PROVIDERS: Emergency Provider Emergency Medicine; PCP Internal Medicine Hematology & Oncology
DX: D57.00 Hb-SS disease with crisis, unspecified (principal); G89.29 Other chronic pain; Z86.718 Personal history of other venous thrombosis and embolism; Z86.711 Personal history of pulmonary embolism; D57.01 Hb-SS disease with acute chest syndrome
CPT/HCPCS: 36415; 80053; 83021; 85025; 85046; 85055; 85610; 96361; 96374; 96376; 99284; J1170; J7030

== ENCOUNTER 2019-11-08 16:36 | Observation (INO) | payer OTHER, SELFPAY ==
[2019-11-08] VITALS (9 sets, daily range): BP systolic 122–141; BP diastolic 77–82; PULSE 76–97; RESP 18–20; TEMP 36.6–36.9; O2SAT 97–100; BMI 31.6
--- NOTE | ~2019-11-08 | US_ITS ---
EXAMINATION: US venous doppler [facility] DATE: 11/09/2019 15:56 INDICATION: Lower limb pain. TECHNIQUE: Grayscale ultrasound images without and with compression and Doppler ultrasound images of the bilateral lower extremity veins were obtained. COMPARISON: Ultrasound 11/17/2018 FINDINGS: The visualized portions of right common femoral vein, profunda (deep) femoral vein, femoral vein, pop liteal vein, peroneal veins, posterior tibial veins, and greater saphenous vein outflow are patent. The visualized portions of left common femoral vein, profunda femoral vein, femoral vein, popliteal v ein, peroneal veins, posterior tibial veins, and greater saphenous vein outflow are patent. IMPRESSION: 1. No deep venous thrombosis. Reviewed, dictated and finalized at location A.
--- NOTE | 2019-11-08 19:05 | ED.GENADULT ---
HPI - General Adult General Chief complaint: Unspecified <ZAINAB Villavicencio Last Filed: 11/08/19 21:42> Stated complaint: Sickle Cell <ZAINAB Villavicencio Last Filed: 11/08/19 21:42> Time Seen by Provider: 11/08/19 18:53 <ZAINAB Villavicencio Last Filed: 11/08/19 21:42> Source: patient <ZAINAB Villavicencio Last Filed: 11/08/19 21:42> Mode of arrival: ambulatory <ZAINAB Villavicencio Last Filed: 11/08/19 21:42> Limitations: no limitations <ZAINAB Villavicencio Last Filed: 11/08/19 21:42> History of Present Illness HPI narrative: Patient presents with sickle cell pain crisis noting rib pain and low back pain patient notes that this is consistent with his chronic exacerbations states he has been consistent with this some medications prescribed by hematology. Patient notes the pain is worse with activity and movement denies fever recent illness or other complaints notes he has been compliant with his medications was seen here just a few days ago for similar occurrence <ZAINAB Villavicencio Last Filed: 11/08/19 21:42> Related Data Home medications: Home Medications Medication Instructions Recorded Confirmed folic acid 1 mg PO DAILY 02/16/19 11/09/19 hydroxyurea [Hydrea] 500 mg PO BID 02/16/19 11/09/19 oxycodone-acetaminophen 10 tablet PO Q4HWA PRN 11/08/19 11/09/19 warfarin 2 mg PO DAILY 11/08/19 11/09/19 methadone 10 mg PO TID 11/09/19 11/09/19 <ZAINAB Villavicencio Last Filed: 11/08/19 21:42> Allergies/adverse reactions: Allergies Allergy/AdvReac Type Severity Reaction Status Date / Time Fish Containing Products Allergy Intermediate Itching Verified 11/08/19 16:39 <ZAINAB Villavicencio Last Filed: 11/08/19 21:42> Review of Systems Review of Systems: All systems reviewed & are unremarkable except as noted in HPI and below <ZAINAB Villavicencio Last Filed: 11/08/19 21:42> PMFSH Past Medical History Medical History: Medical History Acute chest syndrome Chronic narcotic use Methadone with oxycodone for breakthrough pain. Chronic pain syndrome History of deep vein thrombosis (DVT) of lower extremity History of pulmonary embolism Pulmonary embolism Sickle cell disease, type SC <Bernardo Sierra PA-C - Last Filed: 11/08/19 21:42> Surgical History Surgical History: Surgical History History of hand surgery Tendon surgery on right 5th finger. <Bernardo Sierra PA-C - Last Filed: 11/08/19 21:42> Family History Family History: Family History Grandparent Acute myocardial infarction Sibling Asthma Sibling Asthma Mother Hypertension Son Sickle cell trait Daughter Sickle cell trait Grandparent Diabetes mellitus <Bernardo Sierra PA-C - Last Filed: 11/08/19 21:42> Social History Social History: Social History Social History: The patient lives in [place] with his family. He is on disability due to sickle cell disease and chronic pain. He designates his mother, Mary Jane Zuniga, as his surrogate decision maker and he wishes to be a full code. He is a lifelong nonsmoker and denies alcohol and drug use. Smoking status: Never smoker Second hand tobacco smoke exposure: Yes Alcohol intake: never Substance use: never Substance use type: does not use Additional occupation/education comments: Gender identity (if verbalized by the patient): Male Spiritual care concerns: No Agree to blood products: Yes <Bernardo Sierra PA-C - Last Filed: 11/08/19 21:42> Exam Narrative: Exam Narrative: GENERAL: Well-appearing, well-nourished, and in no acute distress. HEAD: Normocephalic, atraumatic. EYES: PERRLA and EOMI. ENT: Nares clear, no rhinorrh
[2019-11-08] MEDS: SODIUM CHLORIDE 0.9% IV 1,000 ML 999 ML IV CONT ×2 (19:47→20:55)
[2019-11-08 20:03] LABS: Basophils Absolute Auto 0.1 K/mm3 (0.0-0.1); Basophils Percent Auto 0.5 % (0.2-1.2); Eosinophils Absolute Auto 0.1 K/mm3 (0-0.3); Eosinophils Percent Auto 0.8 % (0-4.4); Hematocrit 32.7 % (42.0-52.0); Hemoglobin 11.5 g/dL (14.0-18.0); Immature Granulocyte Absolute 0.02 K/mm3 (0.00-0.031); Immature Granulocyte Percent A 0.2 % (0-0.5); Lymphocytes Percent Auto 36.3 % (18.3-44.2); Mean Corpuscular HGB Conc 35.2 g/dl (32-36); Mean Corpuscular Hemoglobin 33.4 pg (26-34); Mean Corpuscular Volume 95.1 fl (80-100); Mean Platelet Volume 10.2 fl (7.4-10.4); Monocytes Absolute Auto 0.9 K/mm3 (0.1-0.6); Monocytes Percent Auto 8.1 % (2.6-8.5); Neutrophils Absolute Auto 5.7 K/mm3 (1.3-6.7); Neutrophils Percent Auto 54.1 % (45.5-73.1); Nucleated Red Blood Cells Perc 0.3 % (0.0-0.2); Platelet Count Result 375 k/mm3 (150-375); Red Blood Count 3.44 M/mm3 (4.6-6.20); Red Cell Distribution Width 15.7 % (11.5-14.5); White Blood Count 10.5 K/mm3 (4.5-10.0)
[2019-11-08 20:14] LABS: Anion Gap 13.1 mmol/L (7-16); Blood Urea Nitrogen 5 mg/dL (9-20); Calcium 9.3 mg/dL (8.4-10.2); Carbon Dioxide 25 mmol/L (22-30); Chloride 106 mmol/L (98-107); Estimated CRCL calculation 146 ml/min; Estimated Glomerular Filt Rate > 60; Glucose 101 mg/dL (75-110); Lactate Dehydrogenase 596 U/L (313-618); Potassium 4.1 mmol/L (3.4-5.0); Sodium 140 mmol/L (137-145)
[2019-11-08 20:24] LABS: Immature Reticulocyte Fraction 31.5 % (3.0-15.9); Reticulocyte Hemoglobin Conten 35.1 pg (28.2-35.7); Reticulocyte Percent 4.01 % (0.7-4.3); Reticulocytes Absolute 0.13 B/L (32.2-175.7)
[2019-11-08 20:27] LABS: Ovalocytes 1+ (NORMAL); Platelet Estimate Adequate (Adequate); Target Cells 3+ (NORMAL)
[2019-11-08 20:30] LABS: Anisocytosis 1+ (NORMAL); Poikilocytosis 1+ (NORMAL); Sickle Cells 1+ (NORMAL)
[2019-11-08 21:39] LABS: Add Urine Microscopic? YES; Appearance Urine Clear (Clear); Bilirubin Urine Negative (Negative); Blood Urine Negative (Negative); Color Urine Yellow (Yellow); Glucose Urine UA Negative (Negative); Ketones Urine Negative (Negative); Leukocyte Esterase Ur Negative LEU/UL (Negative); Mucus Urine Rare /lpf; Nitrate Urine Negative (Negative); Protein Urine Negative (Negative); RBC Urine 0-2 /hpf (0-2); Specific Grav Ur 1.012 (1.001-1.035); WBC Urine 0-3 /hpf
--- NOTE | 2019-11-08 23:36 | PC.NURSE ---
This patient, Quan Downing, was admitted to Medical Room 340-01. Patient/family oriented to hospital policies and general routines including ID bracelet, bed and alarms, visiting hours, pain management, procedures, bathroom and other care routines, personal items, smoking policy, room service/diet, and visiting hours. Valuables list has been completed. Information on how to activate the Rapid Response Team has been discussed. Patient/Family are encouraged to report perceived risks to care and to ask questions if they do not understand what they are told or what they should do.
[2019-11-08] MEDS: ONDANSETRON INJ 4 MG/2 ML VIAL IV PUSH (23:57)
[2019-11-09 04:00] VITALS: BP 132/87; PULSE 85; RESP 20; TEMP 36.5; O2SAT 99
[2019-11-09] MEDS: oxyCODONE/ACETAMINOPHEN 5-325 MG TABLET 1 TABLET PO ×4 (05:10→20:19)
[2019-11-09 06:36] LABS: Basophils Percent Auto 0.3 % (0.2-1.2); Eosinophils Absolute Auto 0.1 K/mm3 (0-0.3); Eosinophils Percent Auto 1.4 % (0-4.4); Hematocrit 30.4 % (42.0-52.0); Hemoglobin 10.7 g/dL (14.0-18.0); Immature Granulocyte Absolute 0.02 K/mm3 (0.00-0.031); Immature Granulocyte Percent A 0.2 % (0-0.5); Lymphocytes Absolute Auto 2.96 K/mm3 (0.9-3.2); Lymphocytes Percent Auto 31.7 % (18.3-44.2); Mean Corpuscular HGB Conc 35.2 g/dl (32-36); Mean Corpuscular Hemoglobin 33.4 pg (26-34); Mean Platelet Volume 10.5 fl (7.4-10.4); Monocytes Absolute Auto 0.9 K/mm3 (0.1-0.6); Monocytes Percent Auto 9.2 % (2.6-8.5); Neutrophils Absolute Auto 5.4 K/mm3 (1.3-6.7); Neutrophils Percent Auto 57.2 % (45.5-73.1); Platelet Count Result 343 k/mm3 (150-375); Red Cell Distribution Width 15.5 % (11.5-14.5); White Blood Count 9.4 K/mm3 (4.5-10.0)
[2019-11-09 06:38] LABS: INR 1.1; Prothrombin Time 13.7 Seconds (11.1-14.7)
[2019-11-09 06:47] LABS: Anion Gap 10.5 mmol/L (7-16); Blood Urea Nitrogen 4 mg/dL (9-20); Calcium 8.7 mg/dL (8.4-10.2); Carbon Dioxide 25 mmol/L (22-30); Chloride 106 mmol/L (98-107); Estimated CRCL calculation 171 ml/min; Estimated Glomerular Filt Rate > 60; Glucose 109 mg/dL (75-110); Potassium 3.5 mmol/L (3.4-5.0); Sodium 138 mmol/L (137-145)
[2019-11-09 08:00] VITALS: BP 122/90; PULSE 85; RESP 18; TEMP 36.9; O2SAT 100
[2019-11-09] MEDS: FAMOTIDINE 20 MG/2 ML VIAL IV PUSH ×2 (09:55→20:17)
[2019-11-09] MEDS: LACTATED RINGERS 1,000 ML 125 ML IV CONT ×3 (09:55→16:28)
[2019-11-09] MEDS: FOLIC ACID 1 MG TABLET PO (09:55)
[2019-11-09] MEDS: HYDROXYUREA (*CHEMO) 500 MG CAPSULE PO ×2 (09:56→16:28)
--- NOTE | 2019-11-09 12:34 | PC.NURSE ---
Spoke with pharmacy regarding clarification of patients medications. Warfarin dose is 12mg. Methadone is TID. And Oxycodone is Q4hr. Spoke with hospitalist regarding this and will correct medications to reflect on chart emar.
[2019-11-09 13:20] VITALS: BP 120/64; PULSE 80; RESP 18; TEMP 36.6; O2SAT 99
--- NOTE | 2019-11-09 15:14 | PM.IMHP ---
H&P: HPI History of Present Illness Chief complaint: Sickle cell pain crisis Narrative: Quan Downing is a 34 year old male with history of sickle cell anemia, presents to the emergency department with increased pain over the last 1 week with worsening symptoms the last few days. Patient is a frequent Flyer to the emergency department and has multiple admissions for his uncontrolled pain. He follows up with Dr. Marks hematology as an outpatient who manages his pain medications. The patient states he has been taking his oxycodone 01/15/2025 every 4 hours and methadone 10 mg 3 times a day without any improvement of his chronic pain. His pain is mostly located to his ribs, back, legs. He states the only thing that helped when his pain gets a severe is IV Dilaudid 2 mg every 2-3 hours. He states everything makes it worse.he denies any fevers, chills, chest pain, shortness of breath, cough, nausea, vomiting, abdominal pain, diarrhea, constipation, leg swelling, lightheadedness, dizziness, headache, dysuria, frequent urination, or any other symptoms at this time. He states he has not been eating and drinking well the last few days secondary to his pain. the patient states he has not been taking his Coumadin for the last few days because he recently had 2 deaths in the family and has been very busy. He states he has Coumadin at home he does has missed a few doses. Then upon further discussion he states he ran out of his methadone and has been trying to call Dr. Marks's office since or Saturday but was unable to get a hold of anyone. His initial vital signs showed temperature of 97.8?, blood pressure 141/82, non tachycardic at 97, respiratory rate 18 and oxygen saturation 100% on room air. Initial labs showed slight leukocytosis at 10,500, stable normocytic anemia with a hemoglobin of 11.5/hematocrit 32.7, retic count is improved from prior ER visit on 11/05/2019: absolute was 0.13, percent was 4.01 (normal), immature retic fraction was 31.5, Hgb content 35.1 (normal). CBC was normal. LDH was normal. Urinalysis showed 2 urobilinogen. the patient was then admitted into the hospital for uncontrolled pain and further evaluation. Code status: full code [id number]: Mother, Mary Jane Zuniga primary care provider: Dr. Marks Review of Systems Review of Systems: All systems reviewed & are unremarkable except as noted in HPI and below PMFSH Past Medical History Medical History Acute chest syndrome Chronic narcotic use Methadone with oxycodone for breakthrough pain. Chronic pain syndrome History of deep vein thrombosis (DVT) of lower extremity History of pulmonary embolism Pulmonary embolism Sickle cell disease, type SC Surgical History Surgical History History of hand surgery Tendon surgery on right 5th finger. Family History Family History Grandparent Acute myocardial infarction Sibling Asthma Sibling Asthma Mother Hypertension Son Sickle cell trait Daughter Sickle cell trait Grandparent Diabetes mellitus Social History Social History Social History: The patient lives in [place] with his family. He is on disability due to sickle cell disease and chronic pain. He designates his mother, Mary Jane Zuniga, as his surrogate decision maker and he wishes to be a full code. He is a lifelong nonsmoker and denies alcohol and drug use. Smoking status: Never smoker Second hand tobacco smoke exposure: Yes Alcohol intake: never Substance use: never Substance use type: does not use Additional occupation/education comments: Gender identity (if verbalized by the patient): Male Spiritual care concerns: No Agree to blood products: Yes Meds Home Medications
[2019-11-09 16:00] VITALS: BP 121/80; PULSE 70; RESP 18; TEMP 36.3; O2SAT 99
[2019-11-09] MEDS: WARFARIN (*PBKC) 2 MG TABLET PO (16:29)
[2019-11-09] MEDS: WARFARIN (*PBKC) 10 MG TABLET PO (16:29)
[2019-11-09] MEDS: ENOXAPARIN 100 MG/ML SYRINGE SUB-Q (17:30)
--- NOTE | 2019-11-09 17:32 | PDONCCN ---
HPI - Date of Consult Date/Time: 11/09/19 17:32 Requesting Physician: Melvina Hicks PA-C Primary Care Provider: Jone Marks MD - Consult Narrative Reason for consult: Probable sickle cell crisis Narrative: Quan Downing is a 34 year old male This is a 34-year-old male with history of sickle cell anemia and multiple admission for sickle cell crisis. He normally takes methadone 10 mg 3 times a day along with [place] as needed. He was last admitted to the hospital in September and August of 2019. He now came into the hospital with 3-4 days history of generalized musculoskeletal pain mainly in the legs. He denies any fevers and chills. He denies any nausea vomiting and diarrhea. Patient also has a history of recurrent pulmonary embolism and was supposed to be taking Coumadin 12 mg daily. His PT INR on admission was only 1.1 suggesting noncompliance. Review of Systems - Review of Systems All systems reviewed & are unremarkable except as noted in HPI and [facility] Medical History: Medical History (Last Reviewed 11/09/19 @ 17:35 by Jone Marks MD) Acute chest syndrome Chronic narcotic use Methadone with oxycodone for breakthrough pain. Chronic pain syndrome History of deep vein thrombosis (DVT) of lower extremity History of pulmonary embolism Pulmonary embolism Sickle cell disease, type SC Surgical History: Surgical History (Last Reviewed 11/09/19 @ 17:35 by Jone Marks MD) History of hand surgery Tendon surgery on right 5th finger. Family History: Family History (Last Reviewed 11/09/19 @ 17:35 by Jone Marks MD) Grandparent Acute myocardial infarction Sibling Asthma Sibling Asthma Mother Hypertension Son Sickle cell trait Daughter Sickle cell trait Grandparent Diabetes mellitus - Social History Social History: Social History (Last Reviewed 11/09/19 @ 17:35 by Jone Marks MD) Gender Identity: Gender identity (if verbalized by the patient): Male Alcohol Use: Alcohol intake: never Substance Use: Substance use: never Substance use type: does not use Others: Spiritual care concerns: No Agree to blood products: Yes Smoking Status: Smoking status: Never smoker Second hand tobacco smoke exposure: Yes Meds Home Medications Medication Instructions Recorded Confirmed Type folic acid 1 mg PO DAILY 02/16/19 11/09/19 History hydroxyurea [Hydrea] 500 mg PO BID 02/16/19 11/09/19 History warfarin [Coumadin] 10 mg PO DAILY@1700 #30 tablet 09/05/19 11/09/19 Rx oxycodone-acetaminophen 10 tablet PO Q4HWA PRN 11/08/19 11/09/19 History warfarin 2 mg PO DAILY 11/08/19 11/09/19 History methadone 10 mg PO TID 11/09/19 11/09/19 History Allergies Allergy/AdvReac Type Severity Reaction Status Date / Time Fish Containing Products Allergy Intermediate Itching Verified 11/08/19 16:39 Results - Labs CBC & Chem 7: 11/09/19 06:02 11/09/19 06:01 Labs: Short CBC 11/08/19 11/09/19 Range/Units 19:53 06:02 WBC 10.5 H 9.4 (4.5-10.0) K/mm3 Hgb 11.5 L 10.7 L (14.0-18.0) g/dL Hct 32.7 L 30.4 L (42.0-52.0) % Plt Count 375 343 (150-375) k/mm3 BMP 11/08/19 11/09/19 19:53 06:01 Sodium 140 138 Potassium 4.1 3.5 Chloride 106 106 Carbon Dioxide 25 25 BUN 5 L 4 L Creatinine 0.70 0.60 L Glucose 101 109 Calcium 9.3 8.7 Urine 11/08/19 Range/Units 20:58 Urine Color Yellow (Yellow) Urine Appearance Clear (Clear) Urine pH 7.0 (5.0-9.0) Ur Specific [place] 1.012 (1.001-1.035) Urine Protein Negative (Negative) mg/dL Urine Glucose (UA) Negative (Negative) mg/dL Assessment and Plan - Additional Plan Sickle cell anemia with SC disease. Patient has multiple admission for recurrent sickle cell crisis episodes. He came back into the hospital with 3-4 days history of generalized musculoskeletal pain is specially in the lower extr
[2019-11-09 20:00] VITALS: BP 127/80; PULSE 73; RESP 15; TEMP 36.3; O2SAT 98
[2019-11-10] MEDS: oxyCODONE/ACETAMINOPHEN 5-325 MG TABLET 1 TABLET PO ×2 (00:37→05:52)
[2019-11-10] MEDS: LACTATED RINGERS 1,000 ML 125 ML IV CONT ×2 (00:40→09:01)
[2019-11-10 04:20] VITALS: BP 140/71; PULSE 86; RESP 16; TEMP 36.2; O2SAT 98
[2019-11-10] MEDS: ENOXAPARIN 100 MG/ML SYRINGE SUB-Q (05:55)
[2019-11-10 06:16] LABS: Hematocrit 29.9 % (42.0-52.0); Hemoglobin 10.4 g/dL (14.0-18.0); Mean Corpuscular HGB Conc 34.8 g/dl (32-36); Mean Corpuscular Hemoglobin 32.8 pg (26-34); Mean Corpuscular Volume 94.3 fl (80-100); Mean Platelet Volume 10.1 fl (7.4-10.4); Platelet Count Result 338 k/mm3 (150-375); Red Blood Count 3.17 M/mm3 (4.6-6.20); Red Cell Distribution Width 15.3 % (11.5-14.5); White Blood Count 9.1 K/mm3 (4.5-10.0)
[2019-11-10 06:26] LABS: INR 1.2; Prothrombin Time 14.8 Seconds (11.1-14.7)
[2019-11-10 06:40] LABS: Anion Gap 11.7 mmol/L (7-16); Blood Urea Nitrogen 4 mg/dL (9-20); Calcium 8.7 mg/dL (8.4-10.2); Carbon Dioxide 25 mmol/L (22-30); Chloride 104 mmol/L (98-107); Estimated CRCL calculation 149 ml/min; Estimated Glomerular Filt Rate > 60; Glucose 96 mg/dL (75-110); Potassium 3.7 mmol/L (3.4-5.0); Sodium 137 mmol/L (137-145)
[2019-11-10] MEDS: FAMOTIDINE 20 MG/2 ML VIAL IV PUSH (09:03)
[2019-11-10] MEDS: HYDROXYUREA (*CHEMO) 500 MG CAPSULE PO (09:03)
[2019-11-10] MEDS: FOLIC ACID 1 MG TABLET PO (09:03)
--- NOTE | 2019-11-10 11:34 | PM.DS ---
DS: Admitting Diagnosis Admitting Diagnosis Admitting Diagnosis: Hb-SS disease with crisis, unspecified DS: Discharge Diagnosis Discharge Diagnosis (1) Sickle-cell disease with pain: Code(s): D57.00 - Hb-SS disease with crisis, unspecified Status: Acute Assessment and Plan: The patient has been out of his methadone for a few days was trying to contact Dr. Marks office For a refill. (2) Subtherapeutic international normalized ratio (INR): Code(s): R79.1 - Abnormal coagulation profile Status: Acute Assessment and Plan: Continue monitoring patient's symptoms and INR daily. Upon discharge have him follow-up with Dr. Marks for more frequent INR checks until it is within normal range. (3) Chronic anticoagulation: Code(s): Z79.01 - skilled nursing (current) use of anticoagulants Status: Acute Assessment and Plan: history of PE and DVT in the past. see subtherapeutic INR (4) Chronic narcotic use: Code(s): F11.90 - Opioid use, unspecified, uncomplicated Status: Chronic Assessment and Plan: Patient is on chronic narcotics which is regulated by Dr. Marks. see sickle cell disease with pain. DS: Summary Time Spent with Patient Time attestation: Total time spent providing and/or coordinating discharge services:40 minutes on the day of discharge Exam Const: General: well developed Nutritional Appearance: well nourished HENMT: Head: normocephalic Eyes: General: appearance normal, both eyes and all related structures Pupils: Equal, round and reactive pupils present Neck: Neck: supple Chest: Chest palpation & inspection: normal inspection of the chest Resp: Effort & Inspection: normal respiratory effort Auscultation: clear to auscultation bilaterally Cardio: Jugular venous distension: no JVD Rhythm: regular rhythm Heart sounds: S1 normal heart sound present and S2 normal heart sound present GI: Inspection: normal to inspection GI Palp: No abdominal tenderness, Yes Soft to palpation and No Tenderness to palpation present (GI) Auscultation: normal bowel sounds : General: Yes no CVA tenderness Back/Spine/Pelvis: Back: no CVA tenderness Skin: General skin exam: normal color and dry skin Neuro: Cranial nerves: Yes CN's II-XII intact bilaterally and Yes Equal, round and reactive pupils present Cognition (Neuro): normal cognition Speech: normal speech Motor exam (neuro): 5/5 motor strength present throughout Extrem: General: normal to inspection Psych: Appearance: grossly normal Mental Status: mental status grossly normal DS: Data Data Completed and Pending Labs on day of discharge: Labs from last 24 hours 11/10/19 11/10/19 11/10/19 05:50 05:50 05:50 WBC 9.1 RBC 3.17 L Hgb 10.4 L Hct 29.9 L MCV 94.3 MCH 32.8 MCHC 34.8 RDW 15.3 H Plt Count 338 MPV 10.1 PT 14.8 H INR 1.2 Sodium 137 Potassium 3.7 Chloride 104 Carbon Dioxide 25 Anion Gap 11.7 BUN 4 L Creatinine 0.70 Estim Creat Clear Calc 149 Estimated GFR > 60 Glucose 96 Calcium 8.7 Discharge Plan Discharge Attending physician on discharge: Elyse Simon Consulting providers: Jone Marks ; Melvina Hicks ; Reji Merino V. Discharging Clinician: Elyse Simon Anticipated Discharge Date/Time: 11/10/19 13:30 Patient Disposition: Home, Self-Care Activity: as tolerated Diet: heart healthy Discharge Instructions: Compliance to warfarin is necessary Pt needs to go get INR checked Patient Instructions: Antibiotic Form, Warfarin (By mouth), Safe Use of Anticoagulants (GEN) Stand Alone Forms: General Discharge Information Follow-up/Referrals: Jone Marks
[2019-11-10 13:15] VITALS: BP 111/72; PULSE 83; RESP 16; TEMP 36.3; O2SAT 95
--- NOTE | 2019-11-10 13:44 | PC.NURSE ---
Spoke at length with patient regarding the importance of taking his warfarin. Paperwork given as well. He verbalized understanding.
== END 2019-11-10 13:45 | disposition home or self-care (01) ==
LOC: ANHED 21:51 → ANH3MED 22:36
PROVIDERS: Emergency Medicine Emergency Medical Services; Physician Assistant; Admitting Provider Internal Medicine; Emergency Provider General Practice; PCP Internal Medicine Hematology & Oncology; Visit Provider Family Medicine
DX: D57.00 Hb-SS disease with crisis, unspecified (principal); R79.1 Abnormal coagulation profile; Z79.01 Long term (current) use of anticoagulants; F11.90 Opioid use, unspecified, uncomplicated; M79.605 Pain in left leg; M79.604 Pain in right leg; Z86.711 Personal history of pulmonary embolism; Z86.718 Personal history of other venous thrombosis and embolism
CPT/HCPCS: 36415; 80048; 81001; 83615; 85025; 85027; 85046; 85055; 85610; 93970; 96361; 96372; 96374; 96375; 96376; 99285; A9270; G0378; G0379; J1170; J1650; J2405; J7030; J7120

== ENCOUNTER 2019-12-08 12:04 | Emergency (ER) | payer OTHER, SELFPAY ==
[2019-12-08 12:06] VITALS: BP 143/77; PULSE 86; RESP 14; TEMP 36.6; O2SAT 100
[2019-12-08 14:15] LABS: Basophils Absolute Auto 0.1 K/mm3 (0.0-0.1); Basophils Percent Auto 0.7 % (0.2-1.2); Eosinophils Absolute Auto 0.1 K/mm3 (0-0.3); Eosinophils Percent Auto 1.4 % (0-4.4); Hematocrit 31.9 % (42.0-52.0); Hemoglobin 11.5 g/dL (14.0-18.0); Immature Granulocyte Absolute 0.01 K/mm3 (0.00-0.031); Immature Granulocyte Percent A 0.1 % (0-0.5); Immature Reticulocyte Fraction 31.6 % (3.0-15.9); Lymphocytes Absolute Auto 3.52 K/mm3 (0.9-3.2); Lymphocytes Percent Auto 43.2 % (18.3-44.2); Mean Corpuscular HGB Conc 36.1 g/dl (32-36); Mean Corpuscular Hemoglobin 32.5 pg (26-34); Mean Corpuscular Volume 90.1 fl (80-100); Mean Platelet Volume 9.9 fl (7.4-10.4); Monocytes Absolute Auto 0.6 K/mm3 (0.1-0.6); Monocytes Percent Auto 7.2 % (2.6-8.5); Neutrophils Absolute Auto 3.9 K/mm3 (1.3-6.7); Neutrophils Percent Auto 47.4 % (45.5-73.1); Nucleated Red Blood Cells Perc 0.2 % (0.0-0.2); Platelet Count Result 390 k/mm3 (150-375); Red Blood Count 3.54 M/mm3 (4.6-6.20); Red Cell Distribution Width 13.7 % (11.5-14.5); Reticulocyte Hemoglobin Conten 33.5 pg (28.2-35.7); Reticulocyte Percent 4.68 % (0.7-4.3); Reticulocytes Absolute 0.17 B/L (32.2-175.7); White Blood Count 8.1 K/mm3 (4.5-10.0)
[2019-12-08 14:19] LABS: Platelet Estimate Adequate (Adequate); Schistocytes 1+ (NORMAL); Sickle Cells 1+ (NORMAL); Target Cells 1+ (NORMAL)
[2019-12-08 14:20] LABS: Polychromasia 1+ (NORMAL)
[2019-12-08 14:24] LABS: INR 3.2; Prothrombin Time 32.3 Seconds (11.1-14.7)
[2019-12-08 14:25] LABS: Partial Thromboplastin Time 37.8 SECONDS (22.3-36.8)
[2019-12-08] MEDS: ONDANSETRON INJ 4 MG/2 ML VIAL IV PUSH (14:28)
[2019-12-08 14:29] LABS: Alanine Aminotransferase 43 U/L (4-50); Albumin Level 4.6 g/dL (3.5-5.1); Alkaline Phosphatase 84 U/L (38-126); Anion Gap 6 mmol/L (8-16); Aspartate Amino Transferase 52 U/L (17-59); Bilirubin,Total 0.8 mg/dL (0.2-1.3); Blood Urea Nitrogen 5 mg/dL (9-20); Calcium 9.1 mg/dL (8.4-10.2); Carbon Dioxide 27 mmol/L (22-30); Chloride 107 mmol/L (98-107); Estimated CRCL calculation 149 ml/min; Estimated Glomerular Filt Rate > 60; Glucose 97 mg/dL (75-110); Lactate Dehydrogenase 783 U/L (313-618); Potassium 4.7 mmol/L (3.4-5.0); Sodium 140 mmol/L (137-145)
--- NOTE | 2019-12-08 15:36 | ED.GENADULT ---
HPI - General Adult General Chief complaint: Unspecified Stated complaint: sickle cell flare up Time Seen by Provider: 12/08/19 12:43 History of Present Illness HPI narrative: Patient is a 34-year-old male who presents the ER with sickle cell crisis pain. Pain is mainly in his legs/back/arms. No chest pain or shortness of breath. No fevers or chills. Worsening over the last couple of days. Feels like he is being stressed by how hot it is been outside the fact that he is gone to some birthday parties. He is taking Percocet methadone without relief of symptoms. Related Data Home Medications Medication Instructions Recorded Confirmed folic acid 1 mg PO DAILY 02/16/19 11/09/19 hydroxyurea [Hydrea] 500 mg PO BID 02/16/19 11/09/19 oxycodone-acetaminophen 10 tablet PO Q4HWA PRN 11/08/19 11/09/19 warfarin 2 mg PO DAILY 11/08/19 11/09/19 methadone 10 mg PO TID 11/09/19 11/09/19 Allergies Allergy/AdvReac Type Severity Reaction Status Date / Time Fish Containing Products Allergy Intermediate Itching Verified 12/08/19 12:04 Review of Systems Review of Systems: All systems reviewed & are unremarkable except as noted in HPI and below Constitutional: Constitutional: Denies chills, Denies fever(s) and Denies weakness Cardiovascular: Cardiovascular: Denies chest pain and Denies radiating jaw, neck or arm pain Respiratory: Respiratory: Denies cough, Denies dyspnea and Denies wheezing Musculoskeletal: Musculoskeletal: Reports myalgias, Reports arthralgias, Denies joint swelling and Reports muscle cramps PMFSH Social History Social History Social History: The patient lives in [place] with his family. He is on disability due to sickle cell disease and chronic pain. He designates his mother, Mary Jane Zuniga, as his surrogate decision maker and he wishes to be a full code. He is a lifelong nonsmoker and denies alcohol and drug use. Smoking status: Never smoker Second hand tobacco smoke exposure: Yes Alcohol intake: never Substance use: never Substance use type: does not use Additional occupation/education comments: Gender identity (if verbalized by the patient): Male Spiritual care concerns: No Agree to blood products: Yes Exam Narrative: Exam Narrative: GENERAL: Well-appearing, well-nourished, and in no acute distress. HEAD: Normocephalic, atraumatic. ENT: Mucous membranes moist. CHEST: Clear to auscultation. No respiratory distress. HEART: Regular rate and rhythm. Normal peripheral pulses. ABDOMEN: Soft, nontender, nondistended. EXTREMITIES: Normal range of motion. No edema. NEURO: Alert and oriented x3. PSYCH: Normal mood and affect. Course Course Emergency Course: Formed results. Pain improving significantly. Patient feels comfortable and would like to be discharged home. Vital Signs Vital signs: Vital Signs Temperature 97.8 F 12/08/19 12:06 Pulse Rate 86 12/08/19 12:06 Respiratory Rate 14 12/08/19 12:06 Blood Pressure 143/77 H 12/08/19 12:06 Pulse Oximetry 100 12/08/19 12:06 Temperature 97.8 F 12/08/19 12:06 Pulse Rate 86 12/08/19 12:06 Respiratory Rate 14 12/08/19 12:06 Blood Pressure 143/77 H 12/08/19 12:06 Pulse Oximetry 100 12/08/19 12:06 Medical Decision Making Vital Signs Vital Signs: Vital Signs Temperature 97.8 F 12/08/19 12:06 Pulse Rate 86 12/08/19 12:06 Respiratory Rate 14 12/08/19 12:06 Blood Pressure 143/77 H 12/08/19 12:06 Pulse Oximetry 100 12/08/19 12:06 Temperature 97.8 F 12/08/19 12:06 Pulse Rate 86 12/08/19 12:06 Respiratory Rate 14 12/08/19 12:06 Blood Pressure 143/77 H 12/08/19 12:06 Pulse Oximetry 100 12/08/19 12:06 Lab Data Result diagrams: 12/08/19 14:08 12/08/19 14:08 Labs: Lab Results 12/08/19 12/08/19 12/08/19 Range/Units 14:08 14:08 14:08 WBC 8.1 (4.5-10.0) K/mm3 RBC 3.54 L (4.
== END 2019-12-08 17:36 | disposition home or self-care (01) ==
PROVIDERS: Emergency Provider Emergency Medicine; PCP Internal Medicine Hematology & Oncology
DX: D57.00 Hb-SS disease with crisis, unspecified (principal)
CPT/HCPCS: 36415; 80053; 83615; 85025; 85046; 85610; 85730; 96374; 96375; 96376; 99284; J1170; J2405

== ENCOUNTER 2020-01-04 08:14 | Observation (INO) | payer OTHER, SELFPAY ==
[2020-01-04] VITALS (14 sets, daily range): BP systolic 133–152; BP diastolic 78–95; PULSE 92–111; RESP 16–20; TEMP 36.2–36.3; O2SAT 96–100; BMI 31.5
--- NOTE | ~2020-01-04 | XR_ITS ---
EXAMINATION: XR chest 2V EXAM DATE: 01/04/2020 10:19 INDICATION: Cough and dyspnea. TECHNIQUE: Frontal and lateral projections of the chest obtained and reviewed. Comparison is made to prior examination from 10/04/2019. FINDINGS: There is bibasilar linear airspace disease not significant changed, appearance most consis tent with atelectasis. The lungs are otherwise clear. There are no pleural effusions. The cardiomed iastinal silhouette is within normal limits. There is no pneumothorax suspected. The bones and soft tissues are unremarkable. IMPRESSION: Unchanged bilateral dominantly linear airspace disease most consistent with atelectasis b ut please clinically correlate. Reviewed, dictated and finalized at location B. IMPRESSION: Unchanged bilateral dominantly linear airspace disease most consist ent with atelectasis but please clinically correlate.
--- NOTE | 2020-01-04 09:50 | PC.NURSE ---
IV therapy called due to patient request. Patient has sickle cell and reports that he always needs an ultrasound for IV placement.
--- NOTE | 2020-01-04 10:00 | ED.GENADULT ---
HPI - General Adult General Chief complaint: Unspecified Stated complaint: Sickle cell crisis Time Seen by Provider: 01/04/20 09:53 Source: patient Mode of arrival: ambulatory Limitations: no limitations History of Present Illness HPI narrative: 34-year-old male Common visitor to the ED here due to sickle cell pain, followed by Dr. ophelia esqueda Complains of back butt and upper leg pain which is pretty typical for him starting a day ago No chest pain not short of breath No recent or Current illness, denies URI symptoms denies GI symptoms denies symptoms Has been taking his meds that include hydroxyurea methadone and Vicodin Related Data Home Medications Medication Instructions Recorded Confirmed folic acid 1 mg PO DAILY 02/16/19 11/09/19 hydroxyurea [Hydrea] 500 mg PO BID 02/16/19 11/09/19 oxycodone-acetaminophen 10 tablet PO Q4HWA PRN 11/08/19 11/09/19 warfarin 2 mg PO DAILY 11/08/19 11/09/19 methadone 10 mg PO TID 11/09/19 11/09/19 Allergies Allergy/AdvReac Type Severity Reaction Status Date / Time Fish Containing Products Allergy Intermediate Itching Verified 01/04/20 09:13 Review of Systems Review of Systems: All systems reviewed & are unremarkable except as noted in HPI and below Constitutional: Constitutional: Denies chills, Reports fatigue, Denies fever(s), Denies headache(s) and Denies night sweats Eyes: Eyes: Denies change in vision, Denies loss of vision and Denies other visual disturbances ENT: Denies headache(s), Denies hoarseness, Denies epistaxis, Denies nasal congestion and Denies sore throat Cardiovascular: Cardiovascular: Denies chest pain, Denies leg edema, Denies palpitations and Denies dyspnea Respiratory: Respiratory: Denies cough, Denies dyspnea and Denies wheezing Gastrointestinal: Gastrointestinal: Denies abdominal pain, Denies diarrhea, Denies nausea and Denies vomiting Genitourinary: Genitourinary: Denies hematuria, Denies dysuria and Denies urinary frequency Musculoskeletal: Musculoskeletal: Denies abnormal gait, Reports back pain, Reports myalgias, Denies deformity, Reports arthralgias, Denies joint swelling, Reports muscle cramps, Denies muscle weakness and Denies numbness Integumentary/Breasts: Skin/Breast: Denies rash, Denies unusual bruising and Denies wounds Neurologic: Denies abnormal gait, Denies headache(s), Denies focal weakness, Denies loss of vision and Denies numbness Psychiatric: Psychiatric: Reports no additional psychiatric complaints Endocrine: Endocrine: Denies fatigue and Denies palpitations Hematologic/Lymphatic: Hematologic/Lymphatic: Denies easy bleeding and Denies easy bruising Allergic/Immunologic: Allergic/Immunologic: Denies wheezing PMFSH Social History Social History Social History: The patient lives in [place] with his family. He is on disability due to sickle cell disease and chronic pain. He designates his mother, Mary Jane Zuniga, as his surrogate decision maker and he wishes to be a full code. He is a lifelong nonsmoker and denies alcohol and drug use. Smoking status: Never smoker Second hand tobacco smoke exposure: Yes Alcohol intake: never Substance use: never Substance use type: does not use Additional occupation/education comments: Gender identity (if verbalized by the patient): Male Spiritual care concerns: No Agree to blood products: Yes Exam Const: General: healthy appearing, no acute distress and well developed Nutritional Appearance: well nourished Orientation/consciousness: patient oriented x3 (alert) and Other orientation findings (Alert) Limitations: no limitations HENMT: Head: normocephalic and atraumatic Ears: external ears normal General nose exam: No nasal discharge present Face and sinus: face symmetric Mouth: Yes tongue normal and Yes moist mucous membranes Throat: other (No exudate, no erythema) Eyes: Conjunctivae: conjunctivae normal Scl
[2020-01-04] MEDS: HYDROmorphone HCL INJ (*CRX) 1 MG/ML SYR IV PUSH ×5 (10:23→23:24)
[2020-01-04] MEDS: PROCHLORPERAZINE EDISYLATE 10 MG/2 ML VIAL IV PUSH (10:23)
[2020-01-04] MEDS: LACTATED RINGERS 1,000 ML 999 ML IV CONT (10:23)
[2020-01-04 10:24] LABS: Basophils Absolute Auto 0.1 K/mm3 (0.0-0.1); Basophils Percent Auto 0.8 % (0.2-1.2); Eosinophils Absolute Auto 0.7 K/mm3 (0-0.3); Eosinophils Percent Auto 6.4 % (0-4.4); Hematocrit 29.4 % (42.0-52.0); Hemoglobin 10.4 g/dL (14.0-18.0); Immature Granulocyte Absolute 0.02 K/mm3 (0.00-0.031); Immature Granulocyte Percent A 0.2 % (0-0.5); Immature Reticulocyte Fraction 31.1 % (3.0-15.9); Lymphocytes Absolute Auto 4.04 K/mm3 (0.9-3.2); Lymphocytes Percent Auto 37.2 % (18.3-44.2); Mean Corpuscular HGB Conc 35.4 g/dl (32-36); Mean Corpuscular Hemoglobin 31.8 pg (26-34); Mean Corpuscular Volume 89.9 fl (80-100); Mean Platelet Volume 10.5 fl (7.4-10.4); Monocytes Absolute Auto 0.9 K/mm3 (0.1-0.6); Monocytes Percent Auto 8.6 % (2.6-8.5); Neutrophils Absolute Auto 5.1 K/mm3 (1.3-6.7); Neutrophils Percent Auto 46.8 % (45.5-73.1); Nucleated Red Blood Cells Perc 0.3 % (0.0-0.2); Platelet Count Result 329 k/mm3 (150-375); Red Blood Count 3.27 M/mm3 (4.6-6.20); Red Cell Distribution Width 13.4 % (11.5-14.5); Reticulocyte Hemoglobin Conten 33.9 pg (28.2-35.7); Reticulocyte Percent 5.25 % (0.7-4.3); Reticulocytes Absolute 0.17 B/L (32.2-175.7); White Blood Count 10.9 K/mm3 (4.5-10.0)
[2020-01-04] MEDS: KETAMINE HCL (*CRX) 500 MG/10 ML VIAL 25 MG IV PUSH (10:29)
[2020-01-04 10:37] LABS: Anion Gap 4 mmol/L (8-16); Blood Urea Nitrogen 6 mg/dL (9-20); Calcium 8.8 mg/dL (8.4-10.2); Carbon Dioxide 27 mmol/L (22-30); Chloride 107 mmol/L (98-107); Estimated CRCL calculation 149 ml/min; Estimated Glomerular Filt Rate > 60; Glucose 109 mg/dL (75-110); Sodium 138 mmol/L (137-145)
[2020-01-04 10:47] LABS: Platelet Estimate Adequate (Adequate)
[2020-01-04 10:48] LABS: Polychromasia 1+ (NORMAL); Sickle Cells 1+ (NORMAL); Stomatocytes 1+ (NORMAL); Target Cells 2+ (NORMAL)
[2020-01-04 10:53] LABS: Add Urine Microscopic? YES; Appearance Urine Clear (Clear); Bilirubin Urine Negative (Negative); Blood Urine Negative (Negative); Color Urine Yellow (Yellow); Glucose Urine UA Negative (Negative); Ketones Urine Negative (Negative); Leukocyte Esterase Ur Negative LEU/UL (Negative); Mucus Urine Rare /lpf; Nitrate Urine Negative (Negative); Protein Urine Negative (Negative); Specific Grav Ur 1.013 (1.001-1.035); WBC Urine 0-3 /hpf
[2020-01-04 13:50] LABS: INR 1.1; Prothrombin Time 13.4 Seconds (11.1-14.7)
[2020-01-04 13:51] LABS: Lactate Dehydrogenase 628 U/L (313-618)
--- NOTE | 2020-01-04 15:06 | PM.IMHP ---
H&P: HPI History of Present Illness Date/Time: 01/04/20 15:06 Chief complaint: painful sicle crisis Narrative: Quan Downing is a 34 year old male with history of sickle cell anemia, presents to the emergency department with increased pain over the last 1-2 days. Patient is a frequent Flyer to the emergency department and has multiple admissions for his uncontrolled pain. He follows up with Dr. Marks hematology as an outpatient who manages his pain medications. The patient states he has been taking his oxycodone 10/325 about 2-3 times per day and methadone 10 mg 3 times a day without any improvement of his pain. He states he still has Methadone and Oxycodone at home, but they were not helping and he decided to come to the ER. He states the only thing that helps when his pain gets severe is IV Dilaudid 2 mg every 2-3 hours. His pain is mostly located to his legs and back which he reports is stabbing and aching. He also reports diffuse pain througohut. His INR is subtherapeutic and states he has been taking his Warfarin as prescribed every night at 5pm. When I told him his INR was 1.1, he states he could have missed a few doses. He states he just refilled his Warfarin recently. He gets his INR checked at Dr. Marks's office. Patient states he has otherwise been eating and drinking without any issues. He denies any fevers, chills, chest pain, shortness of breath, cough, congestion, nausea, vomiting, abdominal pain, diarrhea, constipation, leg swelling, lightheadedness, dizziness, headache, urinary issues, bleeding issues or any other symptoms at this time. His initial vital signs showed temperature of 97.8?, blood pressure 143/77, non tachycardic at 86, respiratory rate 14 and oxygen saturation 100% on room air. Initial labs showed slight leukocytosis at 10,900, stable normocytic anemia with a hemoglobin of 10.4/hematocrit 29.4, retic count is similar from prior ER visit on 12/08/2019: absolute was 0.17, percent was 5.25, immature retic fraction was 31.1, Hgb content 33.9 (normal). BMP was normal. LDH was slightly elevated at 628. INR subtherapeutic 1.1, PT 13.4. Urinalysis showed 2 urobilinogen. CXR showed Unchanged bilateral dominantly linear airspace disease most consistent with atelectasis but please clinically correlate. The patient was then admitted into observation status for uncontrolled pain and further evaluation by Dr. Marks Director Information. Code status: full code [id number]: Mother, Mary Jane Zuniga Primary care provider: Dr. Marks Review of Systems Review of Systems: All systems reviewed & are unremarkable except as noted in HPI and below PMFSH Past Medical History Medical History Acute chest syndrome Chronic narcotic use Methadone with oxycodone for breakthrough pain. Chronic pain syndrome History of deep vein thrombosis (DVT) of lower extremity History of pulmonary embolism Pulmonary embolism Sickle cell disease, type SC Surgical History Surgical History History of hand surgery Tendon surgery on right 5th finger. Family History Family History Grandparent Acute myocardial infarction Sibling Asthma Sibling Asthma Mother Hypertension Son Sickle cell trait Daughter Sickle cell trait Grandparent Diabetes mellitus Social History Social History Social History: The patient lives in [place] with his family. He is on disability due to sickle cell disease and chronic pain. He designates his mother, Mary Jane Zuniga, as his surrogate decision maker and he wishes to be a full code. He is a lifelong nonsmoker and denies alcohol and drug use. Smoking status: Never smoker Second hand tobacco smoke exposure: Yes Alcohol intake: never Substance use: never Substance use
--- NOTE | 2020-01-04 15:15 | PC.NURSE ---
This patient, Quan Downing, was admitted to 2 Medical Room 242-. Patient/family oriented to hospital policies and general routines including ID bracelet, bed and alarms, visiting hours, pain management, procedures, bathroom and other care routines, personal items, smoking policy, room service/diet, and visiting hours. Valuables list has been completed. Information on how to activate the Rapid Response Team has been discussed. Patient/Family are encouraged to report perceived risks to care and to ask questions if they do not understand what they are told or what they should do.
[2020-01-04] MEDS: LACTATED RINGERS 1,000 ML 200 ML IV CONT ×2 (15:40→22:43)
[2020-01-04] MEDS: WARFARIN (*PBKC) 2 MG TABLET PO (18:33)
[2020-01-04] MEDS: HYDROXYUREA (*CHEMO) 500 MG CAPSULE PO (18:33)
[2020-01-04] MEDS: WARFARIN (*PBKC) 10 MG TABLET PO (18:34)
[2020-01-04] MEDS: methADONE HCL (*CRX) 10 MG TABLET PO (18:57)
[2020-01-04] MEDS: oxyCODONE/ACETAMINOPHEN (*CRX) 5-325 MG TABLET PO (21:52)
[2020-01-04] MEDS: oxyCODONE HCL (*CRX) 5 MG TAB IR PO (21:52)
[2020-01-05] MEDS: HYDROmorphone HCL INJ (*CRX) 1 MG/ML SYR IV PUSH ×5 (01:20→10:21)
[2020-01-05] MEDS: methADONE HCL (*CRX) 10 MG TABLET PO ×3 (02:30→18:23)
[2020-01-05 05:11] LABS: Hematocrit 28.9 % (42.0-52.0); Hemoglobin 10.2 g/dL (14.0-18.0); Mean Corpuscular HGB Conc 35.3 g/dl (32-36); Mean Corpuscular Hemoglobin 31.3 pg (26-34); Mean Corpuscular Volume 88.7 fl (80-100); Mean Platelet Volume 10.5 fl (7.4-10.4); Platelet Count Result 328 k/mm3 (150-375); Red Blood Count 3.26 M/mm3 (4.6-6.20); Red Cell Distribution Width 13.2 % (11.5-14.5); White Blood Count 12.5 K/mm3 (4.5-10.0)
[2020-01-05 05:18] LABS: INR 1.2; Prothrombin Time 14.9 Seconds (11.1-14.7)
[2020-01-05 05:23] LABS: Anion Gap 5 mmol/L (8-16); Blood Urea Nitrogen 5 mg/dL (9-20); Calcium 8.9 mg/dL (8.4-10.2); Carbon Dioxide 28 mmol/L (22-30); Chloride 104 mmol/L (98-107); Estimated CRCL calculation 149 ml/min; Estimated Glomerular Filt Rate > 60; Glucose 98 mg/dL (75-110); Potassium 3.8 mmol/L (3.4-5.0); Sodium 137 mmol/L (137-145)
[2020-01-05 05:59] VITALS: BP 115/74; PULSE 84; RESP 16; TEMP 36.4; O2SAT 98
[2020-01-05] MEDS: HYDROXYUREA (*CHEMO) 500 MG CAPSULE PO ×2 (08:21→16:53)
[2020-01-05] MEDS: FOLIC ACID 1 MG TABLET PO (08:21)
[2020-01-05] MEDS: ENOXAPARIN 40 MG/0.4 ML SYRINGE SUB-Q (08:22)
[2020-01-05] MEDS: LACTATED RINGERS 1,000 ML 100 ML IV CONT ×2 (08:25→18:22)
--- NOTE | 2020-01-05 09:54 | PM.IMPN ---
Progress Note: A&P Assessment and Plan (1) Sickle-cell disease with pain: Code(s): D57.00 - Hb-SS disease with crisis, unspecified Status: Acute Assessment and Plan: The patient reports that he took extra doses of his home pain regimen and ran out too soon. The patient has been advised to call Dr. Marks's office when pain is out of control in an attempt to avoid further emergency room visits/hospitalizations. Labs are consistent with baseline. LDH was elevated at 628. Continue to monitor. Dr. Marks has been consulted for further recommendations and medication adjustment as indicated. Continue home pain regimen of methadone and percocet. IV dilaudid is available for breakthrough pain at this time. Recommend trying to wean IV dilaudid. Continue folic acid and hydroxyurea. He reports that pain is marginally better today. Appreciate hematology input. (2) Subtherapeutic international normalized ratio (INR): Code(s): R79.1 - Abnormal coagulation profile Status: Acute Assessment and Plan: Pt is on warfarin daily due to history of DVT and PE. INR is often subtherapeutic as the patient is non-compliant with warfarin therapy. Discussed with Dr. Marks. Continue lovenox and warfarin 12mg PO QD. I discussed the importance of medication compliance with the pt including associated risks of non-compliance. The pt states that he would like to change the time he takes his warfarin because he is not usually home with his alarm goes off at 5pm to take it and thus, misses many doses. Pt will need to follow-up with Dr. Marks for more frequent INR checks until it is within normal range. 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 See above. (4) Chronic pain syndrome: Code(s): G89.4 - Chronic pain syndrome Status: Chronic Assessment and Plan: Secondary to sickle cell anemia. (5) Chronic narcotic use: Code(s): F11.90 - Opioid use, unspecified, uncomplicated Status: Chronic Assessment and Plan: Pt has sickle cell disease with pain and is on a chronic pain regimen per Dr. Marks. Continue home regimen. Pt would benefit from pain management and/or decrease in opioid dosing but will need to be addressed as an outpatient. (6) Leukocytosis: Code(s): D72.829 - Elevated white blood cell count, unspecified Status: Acute Assessment and Plan: WBC increased minimally to 12.5 today. He has no symptoms to suggest infection. Continue to monitor. Subjective Date/time seen: 01/05/20 09:54 Mr. Downing is a 34 y.o. male with hx of sickle cell disease with chronic pain who is seen in follow-up for increased pain. He reports very minimal improvement today. His pain is in his legs and back. He expresses that he thinks his dilaudid needs to be increased. He is not taking his warfarin as prescribed. He denies fever, chills, urinary symptoms, cough, chest pain, dyspnea, diarrhea, abdominal pain, or other precipitating factors. Review of Systems Review of Systems: All systems reviewed & are unremarkable except as noted in HPI and below Exam Narrative: Exam Narrative: General: Well-developed, well-nourished 34 y.o. male lying in bed watching a movie on his laptop. He is in no acute distress and resting comfortably. HEENT: Normocephalic and atraumatic. Sclerae anicteric. Conjunctivae and lids without injection or exudate. EOMI. Mucous membranes moist. Neck: Supple. No lymphadenopathy or masses. Cardiac: Regular rate and rhythm. S1 and S2 normal. Lungs: Effort normal. Lungs are clear to auscultation bilaterally. Abdomen: Normoactive bowel sounds. Abdomen soft, non-distended, and non-tender. Extremities: No lower extremity edema. Mariama sign negative. PT and DP 2+ bilaterally. Neurological: Alert. Exam is non-focal. Speech is clear. Skin: Warm and
[2020-01-05] MEDS: HYDROmorphone HCL INJ (*CRX) 2 MG/ML VIAL IV PUSH ×6 (12:22→22:28)
[2020-01-05 14:00] VITALS: BP 132/76; PULSE 74; RESP 18; TEMP 36.3; O2SAT 95
--- NOTE | 2020-01-05 16:49 | PDONCCN ---
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 He has been on hydroxyurea 500 mg twice a day along with folic acid. He came into the hospital with complain of generalized pain especially in the right leg. He denies any fever chills. He denies any sore throat. He denies any bleeding and bruising. No other signs and symptoms of infection. According to patient he had missed his Coumadin dose for last couple of times. His normal home pain medication were not able to control his pain and he came into the hospital because of intractable leg and back pain. Review of Systems - Review of Systems All systems reviewed & are unremarkable except as noted in HPI and bel - Neurologic Denies abnormal gait, Denies headache(s), Denies focal weakness, Denies loss of vision, Denies numbness [facility] Medical History: Medical History (Last Reviewed 01/04/20 @ 15:11 by Melvina Hicks PA-C) Acute chest syndrome Chronic narcotic use Methadone with oxycodone for breakthrough pain. Chronic pain syndrome History of deep vein thrombosis (DVT) of lower extremity History of pulmonary embolism Pulmonary embolism Sickle cell disease, type SC Surgical History: Surgical History (Last Reviewed 01/04/20 @ 15:11 by Melvina Hicks PA-C) History of hand surgery Tendon surgery on right 5th finger. Family History: Family History (Last Reviewed 01/04/20 @ 15:30 by Debbie Ward RN) Grandparent Acute myocardial infarction Sibling Asthma Sibling Asthma Mother Hypertension Son Sickle cell trait Daughter Sickle cell trait Grandparent Diabetes mellitus - Social History Social History: Social History (Last Reviewed 01/04/20 @ 15:11 by Melvina Hicks PA-C) Gender Identity: Gender identity (if verbalized by the patient): Male Alcohol Use: Alcohol intake: never Substance Use: Substance use: never Substance use type: does not use Others: Spiritual care concerns: No Agree to blood products: Yes Smoking Status: Smoking status: Never smoker Second hand tobacco smoke exposure: Yes Meds Home Medications Medication Instructions Recorded Confirmed Type folic acid 1 mg PO DAILY 02/16/19 01/04/20 History hydroxyurea [Hydrea] 500 mg PO BID 02/16/19 01/04/20 History warfarin [Coumadin] 10 mg PO DAILY@1700 #30 tablet 09/05/19 01/04/20 Rx oxycodone-acetaminophen 1 tablet PO Q4HWA PRN 11/08/19 01/04/20 History warfarin 2 mg PO DAILY 11/08/19 01/04/20 History methadone 10 mg PO TID 11/09/19 01/04/20 History Allergies Allergy/AdvReac Type Severity Reaction Status Date / Time Fish Containing Products Allergy Intermediate Itching Verified 01/04/20 09:13 Results - Labs CBC & Chem 7: 01/05/20 04:54 01/05/20 04:54 Labs: Short CBC 01/05/20 Range/Units 04:54 WBC 12.5 H (4.5-10.0) K/mm3 Hgb 10.2 L (14.0-18.0) g/dL Hct 28.9 L (42.0-52.0) % Plt Count 328 (150-375) k/mm3 BMP 01/05/20 04:54 Sodium 137 Potassium 3.8 Chloride 104 Carbon Dioxide 28 BUN 5 L Creatinine 0.70 Glucose 98 Calcium 8.9 Assessment and Plan - Additional Plan Sickle cell anemia with recurrent sickle cell crisis. Patient has hemoglobin SC disease. His home pain medication was not able to control his pain. He normally takes methadone 10 mg 3 times a day along with oxycodone 5 mg as needed. On admission his LDH was slightly elevated and reticulocyte count was also slightly elevated. Patient denies any signs and symptoms of infection. He was admitted for IV hydration as well as IV pain management. I will c
[2020-01-05] MEDS: WARFARIN (*PBKC) 2 MG TABLET PO (16:54)
[2020-01-05] MEDS: WARFARIN (*PBKC) 10 MG TABLET PO (16:55)
[2020-01-05] MEDS: IBUPROFEN 600 MG TABLET PO (21:03)
[2020-01-05 21:09] VITALS: BP 127/71; PULSE 82; RESP 16; TEMP 36.4; O2SAT 96
[2020-01-06] MEDS: HYDROmorphone HCL INJ (*CRX) 2 MG/ML VIAL IV PUSH ×12 (00:22→23:06)
[2020-01-06] MEDS: methADONE HCL (*CRX) 10 MG TABLET PO ×3 (02:20→19:01)
[2020-01-06] MEDS: LACTATED RINGERS 1,000 ML 100 ML IV CONT ×3 (02:20→21:44)
[2020-01-06 04:49] LABS: Basophils Absolute Auto 0.1 K/mm3 (0.0-0.1); Basophils Percent Auto 0.6 % (0.2-1.2); Eosinophils Absolute Auto 0.5 K/mm3 (0-0.3); Eosinophils Percent Auto 5.2 % (0-4.4); Hematocrit 28.7 % (42.0-52.0); Hemoglobin 10.2 g/dL (14.0-18.0); Immature Granulocyte Absolute 0.01 K/mm3 (0.00-0.031); Immature Granulocyte Percent A 0.1 % (0-0.5); Immature Platelet Fraction Pct 4.4 % (0.9-11.2); Immature Reticulocyte Fraction 21.1 % (3.0-15.9); Lymphocytes Absolute Auto 4.55 K/mm3 (0.9-3.2); Lymphocytes Percent Auto 46.8 % (18.3-44.2); Mean Corpuscular HGB Conc 35.5 g/dl (32-36); Mean Corpuscular Hemoglobin 31.5 pg (26-34); Mean Corpuscular Volume 88.6 fl (80-100); Mean Platelet Volume 10.4 fl (7.4-10.4); Monocytes Absolute Auto 0.8 K/mm3 (0.1-0.6); Neutrophils Absolute Auto 3.8 K/mm3 (1.3-6.7); Neutrophils Percent Auto 39.3 % (45.5-73.1); Nucleated Red Blood Cells Perc 0.2 % (0.0-0.2); Platelet Count Result 295 k/mm3 (150-375); Red Blood Count 3.24 M/mm3 (4.6-6.20); Reticulocyte Hemoglobin Conten 32.4 pg (28.2-35.7); Reticulocyte Percent 4.43 % (0.7-4.3); Reticulocytes Absolute 0.14 B/L (32.2-175.7); White Blood Count 9.7 K/mm3 (4.5-10.0)
[2020-01-06 05:00] LABS: Anion Gap 6 mmol/L (8-16); Blood Urea Nitrogen 8 mg/dL (9-20); Calcium 9.2 mg/dL (8.4-10.2); Carbon Dioxide 26 mmol/L (22-30); Chloride 104 mmol/L (98-107); Estimated CRCL calculation 149 ml/min; Estimated Glomerular Filt Rate > 60; Glucose 115 mg/dL (75-110); Lactate Dehydrogenase 534 U/L (313-618); Potassium 3.9 mmol/L (3.4-5.0); Sodium 136 mmol/L (137-145)
[2020-01-06 05:05] LABS: INR 1.6; Prothrombin Time 18.3 Seconds (11.1-14.7)
[2020-01-06 05:12] LABS: Hypochromasia 2+ (NORMAL); Platelet Estimate Adequate (Adequate); Target Cells 2+ (NORMAL)
[2020-01-06 05:14] LABS: Sickle Cells 1+ (NORMAL)
[2020-01-06 05:58] VITALS: BP 117/63; PULSE 67; RESP 16; TEMP 36.6; O2SAT 91
[2020-01-06] MEDS: FOLIC ACID 1 MG TABLET PO (08:27)
[2020-01-06] MEDS: HYDROXYUREA (*CHEMO) 500 MG CAPSULE PO ×2 (08:28→17:04)
[2020-01-06] MEDS: ENOXAPARIN 40 MG/0.4 ML SYRINGE SUB-Q (08:28)
--- NOTE | 2020-01-06 08:45 | PM.IMPN ---
Progress Note: A&P Assessment and Plan (1) Sickle-cell disease with pain: Code(s): D57.00 - Hb-SS disease with crisis, unspecified Status: Acute Assessment and Plan: The patient reports that he took extra doses of his home pain regimen and ran out too soon. The patient has been advised to call Dr. Marks's office when pain is out of control in an attempt to avoid further emergency room visits/hospitalizations. LDH has returned to normal and reticulocyte levels have also improved. Dr. Marks is on board for management including pain management. Continue home pain regimen of methadone and percocet. IV dilaudid is available for breakthrough pain at this time. Recommend trying to wean IV dilaudid. Continue folic acid and hydroxyurea. Continue IV fluids. He notes improvement with hopeful discharge later today or tomorrow. (2) Subtherapeutic international normalized ratio (INR): Code(s): R79.1 - Abnormal coagulation profile Status: Acute Assessment and Plan: Pt is on warfarin daily due to history of DVT and PE. INR is often subtherapeutic as the patient is non-compliant with warfarin therapy. Discussed with Dr. Marks. Continue lovenox and warfarin 12mg PO QD. I discussed the importance of medication compliance with the pt including associated risks of non-compliance. The pt states that he would like to change the time he takes his warfarin because he is not usually home with his alarm goes off at 5pm to take it and thus, misses many doses. I encouraged him to change this to later in the evening so that he does not miss further doses. Pt will need to follow-up with Dr. Marks for more frequent INR checks. (3) Chronic anticoagulation: Code(s): Z79.01 - shelter (current) use of anticoagulants Status: Acute Assessment and Plan: Hx PE and DVT. See above. (4) Chronic pain syndrome: Code(s): G89.4 - Chronic pain syndrome Status: Chronic Assessment and Plan: Secondary to sickle cell anemia. (5) Chronic narcotic use: Code(s): F11.90 - Opioid use, unspecified, uncomplicated Status: Chronic Assessment and Plan: Pt has sickle cell disease with pain and is on a chronic pain regimen per Dr. Marks. Continue home regimen. Pt would benefit from pain management and/or decrease in opioid dosing but will need to be addressed as an outpatient. (6) Leukocytosis: Code(s): D72.829 - Elevated white blood cell count, unspecified Status: Resolved Assessment and Plan: WBC increased minimally to 12.5 01/04 and has normalized today to 9.7. Subjective Date/time seen: 01/06/20 08:45 Mr. Downing is a 34 y.o. male with hx of sickle cell disease with chronic pain who is seen in follow-up for increased pain He reports significant improvement following medication adjustments. He notes that his back pain has resolved completely and his leg pain is better but still 7-8/10. He reports his appetite has improved. Bowels are regular. He denies fever, chills, abdominal pain, nausea, and vomiting. He had a mild headache which resolved with ibuprofen. Review of Systems Review of Systems: All systems reviewed & are unremarkable except as noted in HPI and below Exam Narrative: Exam Narrative: General: Well-developed, well-nourished 34 y.o. male lying supine watching a movie on the laptop. HEENT: Normocephalic and atraumatic. Sclerae anicteric. Conjunctivae and lids without injection or exudate. PERRL. EOMI. Oral mucosa moist. Neck: Supple. No lymphadenopathy or masses. Cardiac: Regular rate and rhythm. S1 and S2 normal. Lungs: Lungs are clear to auscultation bilaterally. Abdomen: Normoactive bowel sounds. Abdomen soft, non-distended, and non-tender. Extremities: No lower extremity edema. Mariama sign negative. PT and DP 2+ bilaterally. Neurological: Alert. Exam is non-focal to casual conversation. Speech is clear. Skin: Warm and dry. Psychi
[2020-01-06 14:00] VITALS: BP 125/77; PULSE 78; RESP 15; TEMP 36.8; O2SAT 95
--- NOTE | 2020-01-06 15:45 | WPDONCPN ---
Progress Note: A/P - Additional Plan 1. Sickle cell anemia with crisis. He has hemoglobin SC disease. Hgb stable in 10 range, retic trending down, LDH now normal. Continue methadone 10 mg TID and Percocet 10/325 PRN as outpatient. Also on Hydrea BID and daily folic acid. Discussed importance of Hydrea compliance - plans to set PM reminder on phone, continue daily folic acid. 2. H/O recurrent pulmonary embolism. Sub-therapeutic INR (from 1.1 on admission to 1.6 currently), on Lovenox and Coumadin here. Asymptomatic. Continue Coumadin 12 mg after discharge. Discussed importance of Coumadin compliance to prevent recurrent embolism given high risk, plans to set reminder on phone. - Time Spent With Patient Total time spent is greater than 50% in coordination of care (as documented) at patient's floor/unit and/or counseling patient: less than 15 minutes Subjective Interval history: 34 yo BM admitted 01/03 for possible SS crisis after developing progressive back pain and lower extremities 2 days prior to admission despite methadone 30 mg/d and Percocet 10/325 as needed (usually 2 pills/d but required at least 3 pills per day with recent symptoms). Baseline pain is 4/10. He has been noncompliant with Coumadin (taking daily mostly 4 days a week) and Hydrea BID (occasionally skipping PM doses). He currently denies fevers or chills, headaches, vision changes, chest pain, headaches, SOB, or extremity swelling. He was last seen by Dr. Marks in September. Today, he feels better compared to pain on admission and feels he may be ready for discharge tomorrow. Currently, he is resting comfortably in bed. Review of Systems - Review of Systems All systems reviewed & are unremarkable except as noted in HPI and bel - Neurologic Denies abnormal gait, Denies headache(s), Denies focal weakness, Denies loss of vision, Denies numbness Exam Vital signs: Temp Pulse Resp BP Pulse Ox 36.8 C 78 15 125/77 95 01/06/20 14:00 01/06/20 14:00 01/06/20 14:00 01/06/20 14:00 01/06/20 14:00 - Constitutional no acute distress, average body habitus, cooperative - Routine HEENT Exam Head: Present: normal inspection, normocephalic Eye: Present: EOMI, normal appearance - Routine Neck Exam Present: full ROM, normal inspection - Routine Respiratory Exam Present: CTAB - Routine Cardiovascular Exam Cardiovascular: Present: RRR - Routine Abdominal Exam Present: normal bowel sounds, soft. Absent: organomegaly, tenderness - Routine Extremities Exam Absent: calf tenderness Comments: No extremity swelling - Routine Neurological Exam Present: alert, oriented X3, normal speech PN: Objective Data - Labs CBC & Chem 7: 01/06/20 04:23 01/06/20 04:23 Labs: Laboratory Results - last 24 hr 01/06/20 01/06/20 01/06/20 04:23 04:23 04:23 WBC 9.7 RBC 3.24 L Hgb 10.2 L Hct 28.7 L MCV 88.6 MCH 31.5 MCHC 35.5 RDW 13.0 Plt Count 295 MPV 10.4 Immature Gran % (Auto) 0.1 Neut % (Auto) 39.3 L Lymph % (Auto) 46.8 H Parmer % (Auto) 8.0 Eos % (Auto) 5.2 H Baso % (Auto) 0.6 Lymph # (Auto) 4.55 H Parmer # (Auto) 0.8 H Eos # (Auto) 0.5 H Baso # (Auto) 0.1 Abs Immat Gran (auto) 0.01 Absolute Neuts (auto) 3.8 Absolute Nucleated RBC 0.0 Nucleated RBC % 0.2 Platelet Estimate Adequate % Immature Plt Fraction 4.4 Hypochromasia 2+ Sickle Cells 1+ Target Cells 2+ Absolute Retic 0.14 L Percent Retic 4.43 H Immature Retic Fraction 21.1 H Retic Hgb Content 32.4 PT 18.3 H D INR 1.6 Sodium 136 L Potassium 3.9 Chloride 104 Carbon Dioxide 26 Anion Gap 6 L BUN 8 L Creatinine 0.70 Estim Creat Clear Calc 149 Estimated GFR > 60 Glucose 115 H Calcium 9.2 Lactate Dehydrogenase 534
[2020-01-06] MEDS: WARFARIN (*PBKC) 10 MG TABLET PO (17:04)
[2020-01-06] MEDS: WARFARIN (*PBKC) 2 MG TABLET PO (17:05)
[2020-01-06 20:00] VITALS: BP 128/78; PULSE 91; RESP 18; TEMP 36.6; O2SAT 100
[2020-01-07] MEDS: HYDROmorphone HCL INJ (*CRX) 2 MG/ML VIAL IV PUSH ×6 (01:06→11:37)
[2020-01-07] MEDS: methADONE HCL (*CRX) 10 MG TABLET PO ×2 (03:02→10:49)
[2020-01-07] MEDS: LACTATED RINGERS 1,000 ML 100 ML IV CONT (05:49)
[2020-01-07 05:52] LABS: INR 1.7; Prothrombin Time 19.7 Seconds (11.1-14.7)
[2020-01-07 06:00] VITALS: BP 119/72; PULSE 79; RESP 18; TEMP 36.5; O2SAT 100
[2020-01-07] MEDS: ENOXAPARIN 40 MG/0.4 ML SYRINGE SUB-Q (07:45)
[2020-01-07] MEDS: HYDROXYUREA (*CHEMO) 500 MG CAPSULE PO (07:46)
[2020-01-07] MEDS: FOLIC ACID 1 MG TABLET PO (07:46)
--- NOTE | 2020-01-07 10:25 | PM.DS ---
DS: Admitting Diagnosis Admitting Diagnosis Admitting Diagnosis: painful sicle crisis DS: Discharge Diagnosis Discharge Diagnosis (1) Sickle-cell disease with pain: Code(s): D57.00 - Hb-SS disease with crisis, unspecified Status: Acute Assessment and Plan: Hospital Discharge Summary (Date of service: 01/07/20) Mr. Downing is a 34 y.o. male with PMH significant for sickle cell disease, hx of DVT/PE, and chronic narcotic use due to chronic pain syndrome greta to sickle cell disease who presented to the emergency department for the evaluation of back and upper leg pain which was consistent with his prior episodes of pain. He reported that his home pain regiment was not sufficient for pain relief. He reported no cough, dyspnea, fever, chills, or other precipitating symptoms. Initial workup in the emergency department was notable for CXR consistent with atelectasis, WBC mildly elevated at 10.9, Hb 10.4, Hct 29.4, absolute retic count 0.17 B/L, percent retic count 5.25, immature retic fractionation 31.1, and LDH 628. He was admitted to the hospitalist service and Dr. Marks was consulted for pain management. He was treated with hydroxyurea, folic acid, and IV fluids. His pain improved significantly. His reticulocyte counts and LDH improved as well. Extensive education was provided on the importance of hydroxyurea and warfarin compliance. He was advised to call Dr. Marks's office when pain is out of control in an attempt to avoid further emergency room visits/hospitalizations. I discussed adverse reactions of narcotics and encouraged him to try to limit narcotic use. He verbalized understanding. He was discharged in stable condition on the morning of 01/07/20. (2) Subtherapeutic international normalized ratio (INR): Code(s): R79.1 - Abnormal coagulation profile Status: Acute Assessment and Plan: Pt is on warfarin daily due to history of DVT and PE. INR is often subtherapeutic as the patient is non-compliant with warfarin therapy. Lovenox and warfarin 12mg PO QD were continued and INR improved to 1.7. I discussed the importance of medication compliance with the pt including associated risks of non-compliance. The pt states that he would like to change the time he takes his warfarin because he is not usually home with his alarm goes off at 5pm to take it and thus, misses many doses. I encouraged him to change this to later in the evening so that he does not miss further doses. He will need repeat PT/INR Saturday, January 11, 2020. He will need close follow-up with Dr. Marks for warfarin management. (3) Chronic anticoagulation: Code(s): Z79.01 - senior living (current) use of anticoagulants Status: Acute Assessment and Plan: Hx PE and DVT. See above. (4) Chronic pain syndrome: Code(s): G89.4 - Chronic pain syndrome Status: Chronic Assessment and Plan: Secondary to sickle cell anemia. (5) Chronic narcotic use: Code(s): F11.90 - Opioid use, unspecified, uncomplicated Status: Chronic Assessment and Plan: Pt has sickle cell disease with pain and is on a chronic pain regimen per Dr. Marks. Continue home regimen. Pt would benefit from pain management and/or decrease in opioid dosing but will need to be addressed as an outpatient. (6) Leukocytosis: Code(s): D72.829 - Elevated white blood cell count, unspecified Status: Resolved Assessment and Plan: Resolved. WBC increased minimally to 12.5 01/04 and subsequently normalized. He had no evidence of infection. DS: Summary Hospital Course Reason for hospitalization: Pain due to sickle cell disease Hospital Course: As above. Status at Discharge Functional status at discharge: independent ambulation Overall status at discharge: patient is back to baseline Time Spent with Patient Time attestation: Total time spent providing and/or coordinating discharge services: 33 minutes Exam
== END 2020-01-07 12:20 | disposition home or self-care (01) ==
LOC: ANHED 11:59 → ANH2MED 13:49
PROVIDERS: Physician Assistant; Admitting Provider Family Medicine; Emergency Provider Emergency Medicine; PCP Internal Medicine Hematology & Oncology; Visit Provider Internal Medicine
DX: D57.00 Hb-SS disease with crisis, unspecified (principal); G89.4 Chronic pain syndrome; R79.1 Abnormal coagulation profile; D72.829 Elevated white blood cell count, unspecified; F11.90 Opioid use, unspecified, uncomplicated; Z79.01 Long term (current) use of anticoagulants; Z86.718 Personal history of other venous thrombosis and embolism; Z86.711 Personal history of pulmonary embolism; E66.9 Obesity, unspecified; Z68.31 Body mass index [BMI] 31.0-31.9, adult
CPT/HCPCS: 36415; 71046; 80048; 81001; 83615; 85025; 85027; 85046; 85055; 85610; 96361; 96372; 96374; 96375; 96376; 99285; A9270; G0378; G0379; J0780; J1170; J1650; J7120

== ENCOUNTER 2020-02-01 10:59 | Inpatient (IN) | payer OTHER, SELFPAY ==
[2020-02-01] VITALS (28 sets, daily range): BP systolic 108–153; BP diastolic 65–88; PULSE 60–90; RESP 11–20; TEMP 36.6–37.1; O2SAT 95–100; BMI 31.6
--- NOTE | ~2020-02-01 | XR_ITS ---
EXAMINATION: XR chest 1V portable DATE: 02/01/2020 12:01 INDICATION: Chest pain. Sickle cell disease. TECHNIQUE: A single frontal view of the chest was obtained. COMPARISON: Chest 2 views 01/04/2020 FINDINGS: There are chronic interstitial opacities in the lower lung zones, consistent with chronic s ickle cell lung disease. No pleural effusion or pneumothorax. The heart size is normal. IMPRESSION: 1. Stable chronic sickle cell lung disease. Reviewed, dictated and finalized at location A.
--- NOTE | 2020-02-01 11:47 | PC.NURSE ---
RN called Alessia for ultrasound iv access at this time d/t pt being a known hard stick. Alessia will come down at the earliest convience and we will plan to insert an iv and draw labs at that time.
[2020-02-01 12:47] LABS: Basophils Absolute Auto 0.1 K/mm3 (0.0-0.1); Basophils Percent Auto 0.7 % (0.2-1.2); Eosinophils Absolute Auto 0.1 K/mm3 (0-0.3); Eosinophils Percent Auto 0.7 % (0-4.4); Hematocrit 30.1 % (42.0-52.0); Hemoglobin 10.6 g/dL (14.0-18.0); Immature Granulocyte Absolute 0.02 K/mm3 (0.00-0.031); Immature Granulocyte Percent A 0.3 % (0-0.5); Immature Platelet Fraction Pct 3.7 % (0.9-11.2); Immature Reticulocyte Fraction 30.8 % (3.0-15.9); Lymphocytes Absolute Auto 2.62 K/mm3 (0.9-3.2); Mean Corpuscular HGB Conc 35.2 g/dl (32-36); Mean Corpuscular Hemoglobin 32.1 pg (26-34); Mean Corpuscular Volume 91.2 fl (80-100); Mean Platelet Volume 10.6 fl (7.4-10.4); Monocytes Absolute Auto 0.5 K/mm3 (0.1-0.6); Monocytes Percent Auto 6.9 % (2.6-8.5); Neutrophils Percent Auto 55.4 % (45.5-73.1); Nucleated Red Blood Cells Perc 0.4 % (0.0-0.2); Platelet Count Result 352 k/mm3 (150-375); Red Cell Distribution Width 13.8 % (11.5-14.5); Reticulocyte Percent 5.83 % (0.7-4.3); Reticulocytes Absolute 0.19 B/L (32.2-175.7); White Blood Count 7.3 K/mm3 (4.5-10.0)
--- NOTE | 2020-02-01 12:50 | ED.GENADULT ---
HPI - General Adult General Chief complaint: Unspecified Stated complaint: sickle cell pain Time Seen by Provider: 02/01/20 11:38 Source: patient Mode of arrival: ambulatory Limitations: no limitations History of Present Illness HPI narrative: Patient is a 34-year-old male who has history of sickle cell disease that presents noting pain is in extremities and back and ribs consistent with prior exacerbations of his chronic pain attributed to sickle cell disease followed by hematology presents in no distress does not appear uncomfortable patient has had similar occurrences in the past patient otherwise denies any acute illness injury or trauma and notes that he has been compliant with his medication Related Data Home Medications Medication Instructions Recorded Confirmed folic acid 1 mg PO DAILY 02/16/19 01/04/20 hydroxyurea [Hydrea] 500 mg PO BID 02/16/19 01/04/20 oxycodone-acetaminophen 1 tablet PO Q4HWA PRN 11/08/19 01/04/20 warfarin 2 mg PO DAILY 11/08/19 01/04/20 methadone 10 mg PO TID 11/09/19 01/04/20 Allergies Allergy/AdvReac Type Severity Reaction Status Date / Time Fish Containing Products Allergy Intermediate Itching Verified 02/01/20 11:05 Review of Systems Review of Systems: All systems reviewed & are unremarkable except as noted in HPI and below PMFSH Past Medical History Medical History (Updated 02/01/20 @ 14:40 by Bernardo Sierra PA-C) Acute chest syndrome Chronic narcotic use Methadone with oxycodone for breakthrough pain. Chronic pain syndrome History of deep vein thrombosis (DVT) of lower extremity History of pulmonary embolism Pulmonary embolism Sickle cell disease, type SC Surgical History Surgical History History of hand surgery Tendon surgery on right 5th finger. Family History Family History Grandparent Acute myocardial infarction Sibling Asthma Sibling Asthma Mother Hypertension Son Sickle cell trait Daughter Sickle cell trait Grandparent Diabetes mellitus Social History Social History Social History: The patient lives in [place] with his family. He is on disability due to sickle cell disease and chronic pain. He designates his mother, Mary Jane Zuniga, as his surrogate decision maker and he wishes to be a full code. He is a lifelong nonsmoker and denies alcohol and drug use. Smoking status: Never smoker Second hand tobacco smoke exposure: Yes Alcohol intake: never Substance use: never Substance use type: does not use Additional occupation/education comments: Gender identity (if verbalized by the patient): Male Spiritual care concerns: No Agree to blood products: Yes Exam Narrative: Exam Narrative: GENERAL: Well-appearing, well-nourished, and in no acute distress. HEAD: Normocephalic, atraumatic. EYES: PERRLA and EOMI. ENT: Nares clear, no rhinorrhea or epistaxis. Mucous membranes moist. Oropharynx without tonsillar hypertrophy exudate or other lesions. NECK: Supple. No adenopathy or masses. CHEST: Clear to auscultation. No respiratory distress. No wheezes rales or rhonchi HEART: Regular rate and rhythm. No murmur heard. Normal peripheral pulses. ABDOMEN: Soft, nontender, nondistended EXTREMITIES: Normal range of motion. No edema. SKIN: Warm, dry, no rash. NEURO: No focal deficits. Alert and oriented x3. Cranial nerves II through XII grossly intact PSYCH: Normal mood and affect. Course Course Emergency Course: Patient was treated in the emergency department with medications continue to have pain there is concern for drug-seeking behaviors in this individual due to his being asleep and then awoke saying that he is in severe pain patient does not appear to be in pain is hemodynamically stable will be placed in hospital for further evaluation with a consult to his hem
[2020-02-01 12:56] LABS: Alanine Aminotransferase 23 U/L (4-50); Albumin Level 4.1 g/dL (3.5-5.1); Alkaline Phosphatase 75 U/L (38-126); Anion Gap 4 mmol/L (8-16); Aspartate Amino Transferase 32 U/L (17-59); Blood Urea Nitrogen 5 mg/dL (9-20); Carbon Dioxide 29 mmol/L (22-30); Chloride 107 mmol/L (98-107); Estimated CRCL calculation 149 ml/min; Estimated Glomerular Filt Rate > 60; Glucose 110 mg/dL (75-110); Lactate Dehydrogenase 695 U/L (313-618); Potassium 3.9 mmol/L (3.4-5.0); Sodium 140 mmol/L (137-145)
[2020-02-01 13:00] LABS: Platelet Estimate Adequate (Adequate)
[2020-02-01 13:01] LABS: Target Cells 1+ (NORMAL)
[2020-02-01 13:02] LABS: Ovalocytes 1+ (NORMAL); Schistocytes 1+ (NORMAL)
[2020-02-01 13:03] LABS: Hypochromasia 1+ (NORMAL); Stomatocytes 1+ (NORMAL); Tear Drop Cells 1+ (NORMAL)
[2020-02-01] MEDS: SODIUM CHLORIDE 0.9% IV 1,000 ML 999 ML IV CONT (13:03)
[2020-02-01] MEDS: diazePAM INJ (*CRX) 10 MG/2 ML SYRINGE 5 MG IV PUSH (13:04)
[2020-02-01] MEDS: FAMOTIDINE 20 MG/2 ML VIAL IV PUSH (13:04)
[2020-02-01] MEDS: HYDROmorphone HCL INJ (*CRX) 1 MG/ML SYR 2 MG IV PUSH ×3 (13:04→21:03)
[2020-02-01 13:25] LABS: Add Urine Microscopic? NO; Appearance Urine Clear (Clear); Bilirubin Urine Negative (Negative); Blood Urine Negative (Negative); Color Urine Yellow (Yellow); Glucose Urine UA Negative (Negative); Ketones Urine Negative (Negative); Leukocyte Esterase Ur Negative LEU/UL (Negative); Mucus Urine Few /lpf; Nitrate Urine Negative (Negative); Protein Urine Negative (Negative); RBC Urine 0-2 /hpf (0-2); Specific Grav Ur 1.011 (1.001-1.035); Urobilinogen Urine Negative mg/dL (<2.0); WBC Urine 0-3 /hpf
[2020-02-01 13:37] LABS: Amphetamine Screen Urine Negative (Negative); Barbiturate Screen Urine Negative (Negative); Benzodiazepines Screen Urine Negative (Negative); Cannabinoid Screen Urine Negative (Negative); Cocaine Screen Urine Negative (Negative); Methadone Screen Urine Positive (Negative); Opiate Screen Urine Negative (Negative); Phencyclidine Screen Urine Negative (Negative)
--- NOTE | 2020-02-01 15:20 | ADMGEN ---
This patient, Quan Downing, was admitted to Medical Room 348-01. Patient/family oriented to hospital policies and general routines including ID bracelet, bed and alarms, visiting hours, pain management, procedures, bathroom and other care routines, personal items, smoking policy, room service/diet, and visiting hours. Information on how to activate the Rapid Response Team has been discussed. Patient/Family are encouraged to report perceived risks to care and to ask questions if they do not understand what they are told or what they should do.
[2020-02-01] MEDS: MORPHINE SULFATE (*CRX) 4 MG/ML INJ IV PUSH (15:30)
[2020-02-01 15:50] LABS: INR 1.3; Prothrombin Time 15.5 Seconds (11.1-14.7)
--- NOTE | 2020-02-01 16:30 | PM.IMHP ---
H&P: HPI History of Present Illness Date/Time: 02/01/20 16:30 Chief complaint: Sickle Cell Pain Crisis Narrative: Quan Downing is a 34-year-old male with sickle cell disease SC, chronic pain syndrome, and history of pulmonary embolism on warfarin who presented to the emergency department earlier today for evaluation of acute on chronic pain related to his sickle cell disease. He has chronic pain related to his sickle cell disease and is maintained on methadone, which typically makes his pain manageable. More recently he had an increase in his methadone dose and has had less admissions to the hospital since that time. Unfortunately over the past 3 to 4 days he has had an increase in his baseline pain, mainly in his back and ribs, and is now to the point that the oxycodone that he has for breakthrough is not providing him significant relief. He has been taking acetaminophen and ibuprofen without benefit. In the emergency department his recheck and LDH were slightly elevated he is being admitted in this setting. At the time my evaluation he rates his pain 9/10. He has no other concerns and specifically denies fever, chills, sweats, chest pain, shortness of breath, nausea, and vomiting. Review of Systems Review of Systems: Narrative: Twelve systems were reviewed with pertinent positives and negatives as per HPI. He denies recent cold flu symptoms. No sick contacts. No exposure to those positive for COVID-19. He denies nausea, vomiting, diarrhea, dysuria. Except as documented, all other systems were reviewed and are negative. [facility] Past Medical History Medical History (Updated 02/01/20 @ 16:36 by Kimberlee Santamaria PA-C) Acute chest syndrome Chronic anticoagulation Due to history of DVT and pulmonary embolism. Chronic narcotic use On methadone with oxycodone for chronic pain related to his sickle cell disease. Deep venous thrombosis Noncompliance History of noncompliance with anticoagulation and hydroxyurea. Pulmonary embolism Sickle cell disease, type SC Surgical History Surgical History History of hand surgery Tendon surgery on right 5th finger. Family History Family History Grandparent Acute myocardial infarction Sibling Asthma Sibling Asthma Mother Hypertension Son Sickle cell trait Daughter Sickle cell trait Grandparent Diabetes mellitus Social History Social History (Updated 02/01/20 @ 18:39 by Kimebrlee Santamaria PA-C) Social History: The patient lives in [place] with his family. He is on disability due to sickle cell disease and chronic pain. He designates his friend, Keyla Luther, as his surrogate decision maker and he wishes to be a full code. He is a lifelong nonsmoker and denies alcohol and drug use. Additional occupation/education comments: Spiritual care concerns: No Agree to blood products: Yes Meds Home Medications and Allergies Home Medications Medication Instructions Recorded Confirmed Type folic acid 1 mg PO DAILY 02/16/19 02/01/20 History hydroxyurea [Hydrea] 500 mg PO BID 02/16/19 02/01/20 History warfarin [Coumadin] 10 mg PO DAILY@1700 #30 tablet 09/05/19 02/01/20 Rx oxycodone-acetaminophen 1 tablet PO Q4HWA PRN 11/08/19 02/01/20 History warfarin 2 mg PO DAILY 11/08/19 02/01/20 History methadone 10 mg PO TID 11/09/19 02/01/20 History Allergies Allergy/AdvReac Type Severity Reaction Status Date / Time Fish Containing Products Allergy Intermediate Itching Verified 02/01/20 11:05 Vital Signs Vital Signs - 24 hr 02/01/20 11:03 02/01/20 11:26 02/01/20 11:27 Temperature 98.0 F Pulse Rate 80 73 73 Respiratory Rate 20 12 16 Blood Pressure 153/87 H 123/80 Pulse Oximetry 100 98 02/01/20 11:30 02/01/20 11:31 02/01/20 11:45 Temperature Pulse Rate 75 76 90 Respiratory Rate 15 14 15 Blood Pressure 123/79 Pulse Oxi
[2020-02-01] MEDS: methADONE HCL (*CRX) 10 MG TABLET PO (17:02)
[2020-02-01] MEDS: SODIUM CHLORIDE 0.45% 1,000 ML 100 ML IV CONT (17:02)
[2020-02-01] MEDS: HYDROXYUREA (*CHEMO) 500 MG CAPSULE PO (18:19)
[2020-02-01] MEDS: WARFARIN (*PBKC) 10 MG TABLET PO (18:19)
[2020-02-01] MEDS: ENOXAPARIN 100 MG/ML SYRINGE SUB-Q (20:59)
[2020-02-02] MEDS: HYDROmorphone HCL INJ (*CRX) 1 MG/ML SYR 2 MG IV PUSH ×5 (00:04→12:09)
[2020-02-02] MEDS: SODIUM CHLORIDE 0.45% 1,000 ML 100 ML IV CONT ×3 (03:03→22:21)
[2020-02-02 05:31] LABS: Basophils Absolute Auto 0.1 K/mm3 (0.0-0.1); Basophils Percent Auto 0.8 % (0.2-1.2); Eosinophils Absolute Auto 0.3 K/mm3 (0-0.3); Eosinophils Percent Auto 2.9 % (0-4.4); Hematocrit 29.4 % (42.0-52.0); Hemoglobin 10.3 g/dL (14.0-18.0); Immature Granulocyte Absolute 0.02 K/mm3 (0.00-0.031); Immature Granulocyte Percent A 0.2 % (0-0.5); Lymphocytes Absolute Auto 5.24 K/mm3 (0.9-3.2); Lymphocytes Percent Auto 51.8 % (18.3-44.2); Mean Corpuscular Hemoglobin 31.9 pg (26-34); Mean Platelet Volume 10.5 fl (7.4-10.4); Monocytes Absolute Auto 0.8 K/mm3 (0.1-0.6); Monocytes Percent Auto 7.5 % (2.6-8.5); Neutrophils Absolute Auto 3.7 K/mm3 (1.3-6.7); Neutrophils Percent Auto 36.8 % (45.5-73.1); Nucleated Red Blood Cells Perc 0.2 % (0.0-0.2); Platelet Count Result 324 k/mm3 (150-375); Red Blood Count 3.23 M/mm3 (4.6-6.20); Red Cell Distribution Width 13.6 % (11.5-14.5); White Blood Count 10.1 K/mm3 (4.5-10.0)
[2020-02-02 05:40] LABS: INR 1.4
[2020-02-02 05:44] LABS: Anion Gap 6 mmol/L (8-16); Blood Urea Nitrogen 8 mg/dL (9-20); Calcium 8.6 mg/dL (8.4-10.2); Carbon Dioxide 26 mmol/L (22-30); Chloride 106 mmol/L (98-107); Estimated CRCL calculation 149 ml/min; Estimated Glomerular Filt Rate > 60; Glucose 100 mg/dL (75-110); Lactate Dehydrogenase 653 U/L (313-618); Potassium 3.8 mmol/L (3.4-5.0); Sodium 138 mmol/L (137-145)
[2020-02-02 06:00] VITALS: BP 114/72; PULSE 66; RESP 14; TEMP 36.7; O2SAT 97
[2020-02-02 06:40] LABS: Hypochromasia 1+ (NORMAL); Ovalocytes 1+ (NORMAL); Platelet Estimate Adequate (Adequate); Target Cells 1+ (NORMAL)
[2020-02-02 06:41] LABS: Poikilocytosis 1+ (NORMAL); Schistocytes 1+ (NORMAL); Sickle Cells 1+ (NORMAL); Stomatocytes 1+ (NORMAL)
[2020-02-02 06:42] LABS: Tear Drop Cells 1+ (NORMAL)
[2020-02-02 06:43] LABS: Atypical Lymphocytes Present
[2020-02-02] MEDS: methADONE HCL (*CRX) 10 MG TABLET PO ×3 (09:12→16:02)
[2020-02-02] MEDS: HYDROXYUREA (*CHEMO) 500 MG CAPSULE PO ×2 (09:13→16:02)
[2020-02-02] MEDS: FOLIC ACID 1 MG TABLET PO (09:13)
[2020-02-02] MEDS: ENOXAPARIN 100 MG/ML SYRINGE SUB-Q ×2 (09:14→22:20)
--- NOTE | 2020-02-02 12:02 | PM.IMPN ---
Progress Note: A&P Assessment and Plan (1) Sickle cell anemia with crisis: Code(s): D57.00 - Hb-SS disease with crisis, unspecified Status: Acute Assessment and Plan: The patient has been admitted to the hospitalist service for further treatment of sickle cell crisis with acute on chronic pain secondary to such. His reticulocyte count and LDH are a bit elevated than baseline. Dr. Marks has been consulted and appreciate recommendations Continue maintenance methadone. Dilaudid 2 mg q.3 hours as needed for breakthrough pain. Ibuprofen available as well. Will defer further adjustments to Dr. Marks Monitor for improvement (2) Sickle cell disease, type SC: Qualifiers: Sickle-cell associated disorders: without crisis Qualified Code(s): D57.20 - Sickle-cell/Hb-C disease without crisis Code(s): D57.20 - Sickle-cell/Hb-C disease without crisis Status: Chronic Assessment and Plan: Please see above a/p. Follows Dr. Marks as an outpatient. (3) Chronic anticoagulation: Code(s): Z79.01 - residential (current) use of anticoagulants Status: Acute Assessment and Plan: On warfarin for previous DVT. (4) Subtherapeutic international normalized ratio (INR): Code(s): R79.1 - Abnormal coagulation profile Status: Acute Assessment and Plan: INR 1.4 today. Subtherapeutic Continue home Warfarin dose Continue with therapeutic Lovenox bridge Monitor INR daily (5) Chronic pain syndrome: Code(s): G89.4 - Chronic pain syndrome Status: Chronic Assessment and Plan: See above a/p (6) Chronic narcotic use: Code(s): F11.90 - Opioid use, unspecified, uncomplicated Status: Chronic Assessment and Plan: See above a/p Subjective Date/time seen: 02/02/20 12:02 Interval history: Patient is a 34 yo M with sickle cell disease SC, chronic pain syndrome, and history of pulmonary embolism on warfarin who is seen in follow up for sickle cell crisis. Patient states pain is slightly better today, but still present in his back and ribs, as well as his entire right leg. No other complaints at the moment. Denies f/c/s,dizziness, lightheadedness, changes in v/h, cp/palpitations, pleuritic chest pain, sob/cough, n/v/d/c, abd pain, changes in BMs, dysuria, hematuria, cloudy urine, calf pain/swelling. Review of Systems Review of Systems: All systems reviewed & are unremarkable except as noted in HPI and below Exam Narrative: Exam Narrative: General: Patient resting in semi-dominguez's position in bed in no acute distress. Comfortably watching TV HEENT: Normocephalic, EOMI, oral mucosa moist. Cardiovascular: Rate and rhythm are regular. No notable murmur, rub, or gallop. Respiratory: Lungs clear to auscultation all polanco. Non-labored breathing. Abdomen: Soft, non-tender, non-distended, bowel sounds present. Extremities: Peripheral pulses intact. No edema. Neuro: No focal neurological deficits. Speech is clear. Objective Data Vital Signs Vital Signs: Last Vital Signs Temp 98.0 F 02/02/20 06:00 Pulse 66 02/02/20 06:00 Resp 14 02/02/20 06:00 BP 114/72 02/02/20 06:00 Pulse Ox 97 02/02/20 06:00 Intake/Output Intake/Output: Intake & Output 01/30/20 01/31/20 02/01/20 02/02/20 23:59 23:59 23:59 23:59 Intake Total 1240 1637 Output Total 850 550 Balance 390 1087 Meds/Results Medications: Active Medications Generic Name Dose Route Start Last Admin Trade Name Freq PRN Reason Stop Dose Admin Enoxaparin Sodium 100 mg 02/01/20 21:00 02/02/20 09:14 Enoxaparin 100 Mg/Ml Syringe SUB-Q 100 mg Q12HR CHRISTOPHER Administration Folic Acid 1 mg 02/02/20 09:00 02/02/20 09:13
[2020-02-02 14:00] VITALS: BP 113/63; PULSE 78; RESP 14; TEMP 37; O2SAT 97
[2020-02-02] MEDS: HYDROmorphone HCL INJ (*CRX) 1 MG/ML SYR 3 MG IV PUSH ×3 (15:58→22:22)
[2020-02-02] MEDS: WARFARIN (*PBKC) 2 MG TABLET PO (16:02)
[2020-02-02] MEDS: WARFARIN (*PBKC) 10 MG TABLET PO (16:02)
--- NOTE | 2020-02-02 17:16 | PDONCCN ---
HPI - Date of Consult Date/Time: 02/02/20 17:16 Requesting Physician: Saul Veronica PA-C Primary Care Provider: Jone Marks MD - Consult Narrative Reason for consult: Sickle cell anemia with sickle cell crisis Narrative: Quan Downing is a 34 year old male with history of hemoglobin SC disease and frequent admission for sickle cell crisis. He also has a history of recurrent pulmonary embolism. Patient had been taking hydroxyurea 500 mg twice a day along with folic acid 1 mg daily. He was supposed to be taking Coumadin 12.5 mg daily. He came into the hospital today with his typical sickle cell crisis episode complain of pain involving back and is lax. He was on methadone 10 mg twice a day with oxycodone without much relief. He denies any fever chills. He denies any night sweats. Denies any bleeding and bruising. No dysuria and hematuria. He also denies any diarrhea and constipation. On admission his reticulocyte count was slightly elevated with LDH elevation. He was started on IV hydration as well as on Dilaudid 2 mg every 3 hours. He still have pain about 8.5/10 scale mainly in the leg and the back. Review of Systems - Review of Systems All systems reviewed & are unremarkable except as noted in [facility] and [facility] Medical History: Medical History (Last Updated 02/01/20 @ 16:36 by Kimberlee Santamaria PA-C) Acute chest syndrome Chronic anticoagulation Due to history of DVT and pulmonary embolism. Chronic narcotic use On methadone with oxycodone for chronic pain related to his sickle cell disease. Deep venous thrombosis Noncompliance History of noncompliance with anticoagulation and hydroxyurea. Pulmonary embolism Sickle cell disease, type SC Surgical History: Surgical History (Last Reviewed 02/01/20 @ 16:35 by Kimberlee Santamaria PA-C) History of hand surgery Tendon surgery on right 5th finger. Family History: Family History (Last Reviewed 02/01/20 @ 16:35 by Kimberlee Santamaria PA-C) Grandparent Acute myocardial infarction Sibling Asthma Sibling Asthma Mother Hypertension Son Sickle cell trait Daughter Sickle cell trait Grandparent Diabetes mellitus - Social History Social History: Social History (Last Updated 02/01/20 @ 18:39 by Kimberlee Santamaria PA-C) Others: Spiritual care concerns: No Agree to blood products: Yes Meds Home Medications Medication Instructions Recorded Confirmed Type folic acid 1 mg PO DAILY 02/16/19 02/01/20 History hydroxyurea [Hydrea] 500 mg PO BID 02/16/19 02/01/20 History warfarin [Coumadin] 10 mg PO DAILY@1700 #30 tablet 09/05/19 02/01/20 Rx oxycodone-acetaminophen 1 tablet PO Q4HWA PRN 11/08/19 02/01/20 History warfarin 2 mg PO DAILY 11/08/19 02/01/20 History methadone 10 mg PO TID 11/09/19 02/01/20 History Allergies Allergy/AdvReac Type Severity Reaction Status Date / Time Fish Containing Products Allergy Intermediate Itching Verified 02/01/20 11:05 Results - Labs CBC & Chem 7: 02/02/20 05:10 02/02/20 05:10 Labs: Short CBC 02/02/20 Range/Units 05:10 WBC 10.1 H (4.5-10.0) K/mm3 Hgb 10.3 L (14.0-18.0) g/dL Hct 29.4 L (42.0-52.0) % Plt Count 324 (150-375) k/mm3 BMP 02/02/20 05:10 Sodium 138 Potassium 3.8 Chloride 106 Carbon Dioxide 26 BUN 8 L Creatinine 0.70 Glucose 100 Calcium 8.6 Assessment and Plan - Additional Plan Sickle cell anemia. Patient has hemoglobin SC disease. He has been coming to the hospital quite frequently with sickle cell crisis episodes. He was taking methadone 10 mg twice a day with oxycodone 5 mg as needed. His home medication was recently refilled from my office. According to the patient he started having lower back and bilateral leg pain which was severe enough and not relieved by the home medication. According to patient he has been taking his hydroxyurea and folic acid on a regular basis. His labs showed mi
[2020-02-02 17:41] LABS: Hematocrit 29.1 % (42.0-52.0); Hemoglobin 10.5 g/dL (14.0-18.0); Mean Corpuscular HGB Conc 36.1 g/dl (32-36); Mean Corpuscular Hemoglobin 32.8 pg (26-34); Mean Corpuscular Volume 90.9 fl (80-100); Mean Platelet Volume 10.3 fl (7.4-10.4); Platelet Count Result 322 k/mm3 (150-375); Red Cell Distribution Width 13.6 % (11.5-14.5); White Blood Count 8.3 K/mm3 (4.5-10.0)
[2020-02-02 17:53] LABS: Lactate Dehydrogenase 899 U/L (313-618)
[2020-02-02 22:00] VITALS: BP 142/77; PULSE 82; RESP 16; TEMP 36.4; O2SAT 97
[2020-02-03] MEDS: HYDROmorphone HCL INJ (*CRX) 1 MG/ML SYR 3 MG IV PUSH ×5 (01:36→14:04)
[2020-02-03 04:19] VITALS: BP 146/68; PULSE 81; RESP 17; TEMP 36.5; O2SAT 96
[2020-02-03 06:24] LABS: Basophils Absolute Auto 0.1 K/mm3 (0.0-0.1); Basophils Percent Auto 0.8 % (0.2-1.2); Eosinophils Absolute Auto 0.4 K/mm3 (0-0.3); Eosinophils Percent Auto 4.5 % (0-4.4); Hematocrit 28.1 % (42.0-52.0); Immature Granulocyte Absolute 0.01 K/mm3 (0.00-0.031); Immature Granulocyte Percent A 0.1 % (0-0.5); Immature Platelet Fraction Pct 4.3 % (0.9-11.2); Immature Reticulocyte Fraction 28.3 % (3.0-15.9); Lymphocytes Absolute Auto 4.67 K/mm3 (0.9-3.2); Mean Corpuscular HGB Conc 35.6 g/dl (32-36); Mean Corpuscular Hemoglobin 32.5 pg (26-34); Mean Corpuscular Volume 91.2 fl (80-100); Mean Platelet Volume 10.6 fl (7.4-10.4); Monocytes Absolute Auto 0.7 K/mm3 (0.1-0.6); Monocytes Percent Auto 8.7 % (2.6-8.5); Neutrophils Absolute Auto 2.6 K/mm3 (1.3-6.7); Neutrophils Percent Auto 30.9 % (45.5-73.1); Platelet Count Result 331 k/mm3 (150-375); Red Blood Count 3.08 M/mm3 (4.6-6.20); Red Cell Distribution Width 13.6 % (11.5-14.5); Reticulocyte Hemoglobin Conten 33.5 pg (28.2-35.7); Reticulocyte Percent 5.85 % (0.7-4.3); Reticulocytes Absolute 0.18 B/L (32.2-175.7); White Blood Count 8.5 K/mm3 (4.5-10.0)
[2020-02-03 06:25] LABS: INR 2.2; Prothrombin Time 24.1 Seconds (11.1-14.7)
[2020-02-03 06:26] LABS: Anion Gap 6 mmol/L (8-16); Blood Urea Nitrogen 7 mg/dL (9-20); Calcium 8.3 mg/dL (8.4-10.2); Carbon Dioxide 26 mmol/L (22-30); Chloride 105 mmol/L (98-107); Estimated CRCL calculation 149 ml/min; Estimated Glomerular Filt Rate > 60; Glucose 118 mg/dL (75-110); Lactate Dehydrogenase 640 U/L (313-618); Magnesium 2.3 mg/dL (1.6-2.3); Potassium 3.8 mmol/L (3.4-5.0); Sodium 137 mmol/L (137-145)
[2020-02-03 08:08] LABS: Platelet Estimate Adequate (Adequate)
[2020-02-03 08:09] LABS: Hypochromasia 2+ (NORMAL); Sickle Cells 1+ (NORMAL); Stomatocytes 1+ (NORMAL); Target Cells 1+ (NORMAL); Tear Drop Cells 1+ (NORMAL)
[2020-02-03] MEDS: SODIUM CHLORIDE 0.45% 1,000 ML 100 ML IV CONT ×2 (08:31→18:40)
[2020-02-03] MEDS: ENOXAPARIN 100 MG/ML SYRINGE SUB-Q ×2 (08:32→20:05)
[2020-02-03] MEDS: HYDROXYUREA (*CHEMO) 500 MG CAPSULE PO ×2 (08:33→17:15)
[2020-02-03] MEDS: methADONE HCL (*CRX) 10 MG TABLET PO ×3 (08:33→17:15)
[2020-02-03] MEDS: FOLIC ACID 1 MG TABLET PO (08:33)
[2020-02-03 13:51] VITALS: BP 123/74; PULSE 78; RESP 16; TEMP 36.1; O2SAT 98
--- NOTE | 2020-02-03 14:11 | PM.IMPN ---
Progress Note: A&P Assessment and Plan (1) Sickle cell anemia with crisis: Code(s): D57.00 - Hb-SS disease with crisis, unspecified Status: Acute Assessment and Plan: The patient has been admitted to the hospitalist service for further treatment of sickle cell crisis with acute on chronic pain secondary to such. His reticulocyte count is a bit elevated than baseline; LDH has improved to [address] Marks has been consulted and appreciate recommendations. Discussed case with him today and recommended decreasing dilaudid to 2 mg q hrs today. Continue maintenance methadone. Decrease Dilaudid 2 mg q.3 hours as needed for severe pain Ibuprofen available as well. Will defer further adjustments to Dr. Marks Monitor for improvement (2) Sickle cell disease, type SC: Qualifiers: Sickle-cell associated disorders: without crisis Qualified Code(s): D57.20 - Sickle-cell/Hb-C disease without crisis Code(s): D57.20 - Sickle-cell/Hb-C disease without crisis Status: Chronic Assessment and Plan: Please see above a/p. Follows Dr. Marks as an outpatient. 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 (4) Subtherapeutic international normalized ratio (INR): Code(s): R79.1 - Abnormal coagulation profile Status: Acute Assessment and Plan: INR 2.2 today. Subtherapeutic Continue home Warfarin dose Continue with therapeutic Lovenox bridge (day 3) Monitor INR daily (5) Chronic pain syndrome: Code(s): G89.4 - Chronic pain syndrome Status: Chronic Assessment and Plan: See above a/p (6) Chronic narcotic use: Code(s): F11.90 - Opioid use, unspecified, uncomplicated Status: Chronic Assessment and Plan: See above a/p Subjective Date/time seen: 02/03/20 14:11 Interval history: Patient is a 34 yo M with sickle cell disease SC, chronic pain syndrome, and history of pulmonary embolism on warfarin who is seen in follow up for sickle cell crisis. Patient states pain is slightly better today rating it 7/10. Pain is more in the back today. Had some slight calf pain today but overall improved. No other complaints at the moment. Denies f/c/s, dizziness, lightheadedness, cp/palpitations, pleuritic chest pain, sob/cough, n/v, abd pain, LE swelling. Discussed reducing his dilaudid to 2 mg Q3 hrs which he is agreeable to. Review of Systems Review of Systems: All systems reviewed & are unremarkable except as noted in HPI and below Exam Narrative: Exam Narrative: General: Patient resting in semi-dominguez's position in bed in no acute distress. Comfortably watching TV HEENT: Normocephalic, EOMI, oral mucosa moist. Cardiovascular: Rate and rhythm are regular. No notable murmur, rub, or gallop. Respiratory: Lungs clear to auscultation all polanco. Non-labored breathing. Abdomen: Soft, non-tender, non-distended, bowel sounds present. Extremities: Peripheral pulses intact. No edema. Neuro: No focal neurological deficits. Speech is clear. Objective Data Vital Signs Vital Signs: Vital Signs - 24 hr 02/02/20 22:00 02/03/20 04:19 02/03/20 13:51 Temperature 97.6 F 97.7 F 96.9 F L Pulse Rate 82 81 78 Respiratory Rate 16 17 16 Blood Pressure 142/77 H 146/68 H 123/74 Pulse Oximetry 97 96 98 Intake/Output Intake/Output: Intake & Output 01/31/20 02/01/20 02/02/20 02/03/20 23:59 23:59 23:59 23:59 Intake Total 1240 4295 1540 Output Total 850 2100 1000 Balance 390 2192 540 Meds/Results Medications: Active Medications Generic Name Dose Route Start Last Admin Trade Name Freq
[2020-02-03] MEDS: WARFARIN (*PBKC) 10 MG TABLET PO (17:15)
[2020-02-03] MEDS: WARFARIN (*PBKC) 2 MG TABLET PO (17:15)
[2020-02-03] MEDS: HYDROmorphone HCL INJ (*CRX) 1 MG/ML SYR 2 MG IV PUSH ×3 (17:16→22:59)
[2020-02-03 19:53] VITALS: BP 132/86; PULSE 77; RESP 16; TEMP 36.1; O2SAT 100
[2020-02-04] MEDS: HYDROmorphone HCL INJ (*CRX) 1 MG/ML SYR 2 MG IV PUSH ×5 (02:01→11:29)
[2020-02-04] MEDS: SODIUM CHLORIDE 0.45% 1,000 ML 100 ML IV CONT ×2 (04:59→14:56)
[2020-02-04 06:20] LABS: Anion Gap 10 mmol/L (8-16); Blood Urea Nitrogen 7 mg/dL (9-20); Calcium 8.6 mg/dL (8.4-10.2); Carbon Dioxide 25 mmol/L (22-30); Chloride 104 mmol/L (98-107); Estimated CRCL calculation 171 ml/min; Estimated Glomerular Filt Rate > 60; Glucose 96 mg/dL (75-110); Lactate Dehydrogenase 743 U/L (313-618); Magnesium 2.2 mg/dL (1.6-2.3); Potassium 4.2 mmol/L (3.4-5.0); Sodium 139 mmol/L (137-145)
[2020-02-04 06:24] VITALS: BP 125/64; PULSE 77; RESP 18; TEMP 36.2; O2SAT 98
[2020-02-04 06:33] LABS: INR 2.1; Prothrombin Time 23.3 Seconds (11.1-14.7)
[2020-02-04 08:00] VITALS: PULSE 77; RESP 18; O2SAT 98
[2020-02-04 08:38] LABS: Basophils Absolute Auto 0.1 K/mm3 (0.0-0.1); Basophils Percent Auto 0.9 % (0.2-1.2); Eosinophils Absolute Auto 0.4 K/mm3 (0-0.3); Eosinophils Percent Auto 4.7 % (0-4.4); Hematocrit 26.6 % (42.0-52.0); Hemoglobin 10.5 g/dL (14.0-18.0); Immature Granulocyte Absolute 0.01 K/mm3 (0.00-0.031); Immature Granulocyte Percent A 0.1 % (0-0.5); Immature Platelet Fraction Pct 2.1 % (0.9-11.2); Immature Reticulocyte Fraction 25.9 % (3.0-15.9); Lymphocytes Absolute Auto 5.06 K/mm3 (0.9-3.2); Lymphocytes Percent Auto 57.6 % (18.3-44.2); Mean Corpuscular HGB Conc 39.5 g/dl (32-36); Mean Corpuscular Hemoglobin 34.7 pg (26-34); Mean Corpuscular Volume 87.8 fl (80-100); Mean Platelet Volume 11.4 fl (7.4-10.4); Monocytes Absolute Auto 0.6 K/mm3 (0.1-0.6); Monocytes Percent Auto 7.1 % (2.6-8.5); Neutrophils Absolute Auto 2.6 K/mm3 (1.3-6.7); Neutrophils Percent Auto 29.6 % (45.5-73.1); Nucleated Red Blood Cells Perc 0.5 % (0.0-0.2); Platelet Count Result 364 k/mm3 (150-375); Red Blood Count 3.03 M/mm3 (4.6-6.20); Red Cell Distribution Width 13.4 % (11.5-14.5); Reticulocyte Hemoglobin Conten 33.6 pg (28.2-35.7); Reticulocyte Percent 5.35 % (0.7-4.3); Reticulocytes Absolute 0.16 B/L (32.2-175.7); White Blood Count 8.8 K/mm3 (4.5-10.0)
[2020-02-04] MEDS: methADONE HCL (*CRX) 10 MG TABLET PO ×3 (08:46→16:33)
[2020-02-04] MEDS: ENOXAPARIN 100 MG/ML SYRINGE SUB-Q (08:47)
[2020-02-04] MEDS: HYDROXYUREA (*CHEMO) 500 MG CAPSULE PO ×2 (08:47→16:26)
[2020-02-04] MEDS: FOLIC ACID 1 MG TABLET PO (08:47)
[2020-02-04] MEDS: IBUPROFEN 600 MG TABLET PO (11:38)
--- NOTE | 2020-02-04 12:39 | PM.IMPN ---
Progress Note: A&P Assessment and Plan (1) Sickle cell anemia with crisis: Code(s): D57.00 - Hb-SS disease with crisis, unspecified Status: Acute Assessment and Plan: The patient has been admitted to the hospitalist service for further treatment of sickle cell crisis with acute on chronic pain secondary to such. His reticulocyte count was a bit elevated from baseline but is improving; LDH has increased mildly to 743 today [address] Marks has been consulted for pain management and recommendations are greatly appreciated. Management including pain management per Dr. Marks. Continue IV fluids, hydroxyurea, folic acid, and prior to admission methadone. Continue dilaudid 2 mg q.3 hours as needed for severe pain. Ibuprofen is available as well. Will defer further adjustments to Dr. Marks. Monitor for improvement. (2) Sickle cell disease, type SC: Qualifiers: Sickle-cell associated disorders: without crisis Qualified Code(s): D57.20 - Sickle-cell/Hb-C disease without crisis Code(s): D57.20 - Sickle-cell/Hb-C disease without crisis Status: Chronic Assessment and Plan: Please see above a/p. Follows Dr. Marks as an outpatient. 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 (4) Subtherapeutic international normalized ratio (INR): Code(s): R79.1 - Abnormal coagulation profile Status: Acute Assessment and Plan: INR is 2.1 today and therapeutic. Will discontinue lovenox and continue wafarin. Monitor PT/INR daily. (5) Chronic pain syndrome: Code(s): G89.4 - Chronic pain syndrome Status: Chronic Assessment and Plan: See above a/p. (6) Chronic narcotic use: Code(s): F11.90 - Opioid use, unspecified, uncomplicated Status: Chronic Assessment and Plan: See above a/p. Subjective Date/time seen: 02/04/20 12:39 Mr. Downing is a 34 y.o. male with hx of VTE on chronic warfarin with warfarin non-compliance, sickle cell disease with chronic pain who is seen in follow-up for sickle cell crisis. He reports persistent 7-8/10 back and leg pain. He is upset that his dilaudid was decreased from 3mg to 2mg as he does not feel 2mg provides sufficient pain control. He is not sure what precipitated this episode but notes he was outside for his son's 2nd birthday republican and thinks the cold air may have contributed. He has no other associated symptoms to suggest infection including no fever, chills, rigors, nausea, vomiting, chest pain, cough, shortness of breath, headache. He has no urinary concerns. He reports compliance with his hydroxyurea and folic acid at home. He states he missed 1 dose of warfarin but started taking it in the morning which seems to help him remember to take it. Review of Systems Review of Systems: All systems reviewed & are unremarkable except as noted in HPI and below Exam Narrative: Exam Narrative: General: Well-developed and well-nourished 34 y.o. male lying semi-recumbent in bed watching TV. HEENT: Normocephalic and atraumatic. Sclerae anicteric. Conjunctivae and lids without injection or exudate. EOMI. Mosit oral mucosa. Neck: Supple. Cardiac: Regular rate and rhythm. S1 and S2 normal. No murmur appreciated. Lungs: Lungs are clear to auscultation bilaterally. Abdomen: Normoactive bowel sounds. Abdomen is soft, non-distended, and non-tender. Extremities: No lower extremity edema. No calf tenderness. PT and DP 2+ bilaterally. Neurological: Alert. Exam is non-focal to casual conversation. Speech is clear. Skin: Warm and dry. Psychiatric: Judgment and insight intact. Mood pleasant and affect appropriate. Objective Data Vital Signs Vital Signs: Vital Signs - 24 hr 02/03/20 13:51 02/03/20 19:53 02/04/20 06:24 Temperature 96.9 F L 97 F L 97.1 F L Pu
--- NOTE | 2020-02-04 13:52 | PC.NURSE ---
On 02/04/20, the student, [Anali Samuel [facility] nursing agency manager ], provided care and completed [employer] documentation on this patient. I have reviewed the student's documentation and agree with the findings.
[2020-02-04 14:00] VITALS: BP 110/65; PULSE 70; RESP 16; TEMP 36.3; O2SAT 97
[2020-02-04] MEDS: HYDROmorphone HCL INJ (*CRX) 1 MG/ML SYR 3 MG IV PUSH (14:45)
[2020-02-04] MEDS: WARFARIN (*PBKC) 10 MG TABLET PO (16:26)
[2020-02-04] MEDS: WARFARIN (*PBKC) 2 MG TABLET PO (16:26)
--- NOTE | 2020-02-04 18:06 | WPDONCPN ---
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 Patient was admitted with sickle cell crisis episode. His LDH has increased has symptoms of pain came back. Dilaudid was increased to 3 mg every 3 hours. Continue IV hydration along with hydroxyurea 500 mg twice a day and folic acid 1 mg daily. We will continue to check CBC and LDH on a daily basis. Hopefully should be ready to go home in next 2-3 days. Recurrent pulmonary embolism. Patient is back on Coumadin 12.5 mg daily. INR is therapeutic. Lovenox has been discontinued. - Time Spent With Patient Total time spent is greater than 50% in coordination of care (as documented) at patient's floor/unit and/or counseling patient: 15 - 25 minutes Subjective Interval history: Sickle cell anemia and sickle cell crisis Hypercoagulable state with recurrent pulmonary embolism Review of Systems - Review of Systems Patient started having more pain after the dose of Dilaudid was reduced. He is feeling better now. He denies any fevers and chills. He is eating better. He still have back and leg pain which has improved with increased Dilaudid. Exam Vital signs: Temp Pulse Resp BP Pulse Ox 36.3 C L 70 16 110/65 97 02/04/20 14:00 02/04/20 14:00 02/04/20 14:00 02/04/20 14:00 02/04/20 14:00 Narrative: Lungs are clear to auscultation bilaterally Cardiovascular regular rate rhythm no murmurs Abdomen soft nontender nondistended bowel sounds are positive Extremities no edema PN: Objective Data - Labs CBC & Chem 7: 02/04/20 05:25 02/04/20 05:25 Labs: Laboratory Results - last 24 hr 02/04/20 02/04/20 02/04/20 05:22 05:25 05:25 WBC 8.8 RBC 3.03 L Hgb 10.5 L Hct 26.6 L MCV 87.8 MCH 34.7 H D MCHC 39.5 H D RDW 13.4 Plt Count 364 MPV 11.4 H Immature Gran % (Auto) 0.1 Neut % (Auto) 29.6 L Lymph % (Auto) 57.6 H Baker % (Auto) 7.1 Eos % (Auto) 4.7 H Baso % (Auto) 0.9 Lymph # (Auto) 5.06 H Baker # (Auto) 0.6 Eos # (Auto) 0.4 H Baso # (Auto) 0.1 Abs Immat Gran (auto) 0.01 Absolute Neuts (auto) 2.6 Absolute Nucleated RBC 0.0 Nucleated RBC % 0.5 H % Immature Plt Fraction 2.1 Absolute Retic 0.16 L Percent Retic 5.35 H Immature Retic Fraction 25.9 H Retic Hgb Content 33.6 PT 23.3 H INR 2.1 Sodium 139 Potassium 4.2 Chloride 104 Carbon Dioxide 25 Anion Gap 10 BUN 7 L Creatinine 0.60 L Estim Creat Clear Calc 171 Estimated GFR > 60 Glucose 96 Calcium 8.6 Magnesium 2.2 Lactate Dehydrogenase 743 H
[2020-02-04] MEDS: HYDROmorphone HCL INJ (*CRX) 2 MG/ML VIAL 3 MG IV PUSH ×2 (19:00→21:57)
[2020-02-04 20:27] VITALS: BP 136/62; PULSE 84; RESP 17; TEMP 36.1; O2SAT 100
[2020-02-05] MEDS: SODIUM CHLORIDE 0.45% 1,000 ML 100 ML IV CONT ×2 (00:53→10:30)
[2020-02-05] MEDS: HYDROmorphone HCL INJ (*CRX) 2 MG/ML VIAL 3 MG IV PUSH ×5 (00:54→13:16)
[2020-02-05 05:03] VITALS: BP 128/75; PULSE 72; RESP 18; TEMP 36.6; O2SAT 96
[2020-02-05 05:51] LABS: Hematocrit 28.9 % (42.0-52.0); Hemoglobin 10.2 g/dL (14.0-18.0); Immature Reticulocyte Fraction 24.9 % (3.0-15.9); Mean Corpuscular HGB Conc 35.3 g/dl (32-36); Mean Corpuscular Hemoglobin 32.3 pg (26-34); Mean Corpuscular Volume 91.5 fl (80-100); Mean Platelet Volume 10.2 fl (7.4-10.4); Platelet Count Result 317 k/mm3 (150-375); Red Blood Count 3.16 M/mm3 (4.6-6.20); Red Cell Distribution Width 13.5 % (11.5-14.5); Reticulocyte Percent 4.16 % (0.7-4.3); Reticulocytes Absolute 0.13 B/L (32.2-175.7); White Blood Count 8.2 K/mm3 (4.5-10.0)
[2020-02-05 06:04] LABS: INR 2.8; Prothrombin Time 28.6 Seconds (11.1-14.7)
[2020-02-05 06:21] LABS: Anion Gap 8 mmol/L (8-16); Blood Urea Nitrogen 8 mg/dL (9-20); Calcium 8.7 mg/dL (8.4-10.2); Carbon Dioxide 28 mmol/L (22-30); Chloride 102 mmol/L (98-107); Estimated CRCL calculation 149 ml/min; Estimated Glomerular Filt Rate > 60; Glucose 108 mg/dL (75-110); Lactate Dehydrogenase 734 U/L (313-618); Potassium 4.4 mmol/L (3.4-5.0); Sodium 138 mmol/L (137-145)
[2020-02-05 08:11] VITALS: O2SAT 99
[2020-02-05] MEDS: methADONE HCL (*CRX) 10 MG TABLET PO ×2 (09:12→12:45)
[2020-02-05] MEDS: HYDROXYUREA (*CHEMO) 500 MG CAPSULE PO (09:12)
[2020-02-05] MEDS: FOLIC ACID 1 MG TABLET PO (09:12)
--- NOTE | 2020-02-05 11:12 | PM.DS ---
DS: Admitting Diagnosis Admitting Diagnosis Admitting Diagnosis: Sickle Cell Pain Crisis DS: Discharge Diagnosis Discharge Diagnosis (1) Sickle cell anemia with crisis: Code(s): D57.00 - Hb-SS disease with crisis, unspecified Status: Acute Assessment and Plan: Discharge Summary (Date of service 02/05/20): Mr. Downing is a 34 y.o. male with PMH significant for sickle cell disease, hx of DVT/PE, and chronic narcotic use due to chronic pain syndrome from sickle cell disease who presented to the emergency department for the evaluation of worsening of chronic pain due to sickle cell disease. He reported pain in the back and legs. His home pain regimen of oxycodone and methadone were not providing adequate relief which prompted him to proceed to the ED. Initial labs in the emergency department showed Hb 10.6, Hct 30.1, absolute reticulocyte count of 0.19, percent reticulocyte 5.83, immature reticulocyte count 30.8, LDH 695. INR was subtherapeutic at 1.3 and PT 15.5. He was admitted to the hospitalist service and Dr. Marks was consulted for further treatment of sickle cell crisis with acute on chronic pain secondary to such. He had no evidence of precipitating infection. He noted he had been outside for his son's 2nd birthday democrat and thinks the cold weather/wind may have triggered his crisis. He received IV fluids, hydroxyurea, folic acid, prior to admission methadone, and IV dilaudid for breakthrough pain. His pain slowly improved. His LDH and reticulocyte counts improved as well. He felt much better 02/04 and requested to go home. I discussed the importance of limiting his narcotic use. He was advised not to drive or operate heavy machinery when using narcotics. He was advised to follow-up with closely with Dr. Marks outpatient. He verbalized understanding and was discharged in hemodynamically stable condition on the afternoon of 02/05/20. (2) Sickle cell disease, type SC: Qualifiers: Sickle-cell associated disorders: without crisis Qualified Code(s): D57.20 - Sickle-cell/Hb-C disease without crisis Code(s): D57.20 - Sickle-cell/Hb-C disease without crisis Status: Chronic Assessment and Plan: Please see above a/p. Follows Dr. Marks as an outpatient. 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 (4) Subtherapeutic international normalized ratio (INR): Code(s): R79.1 - Abnormal coagulation profile Status: Acute Assessment and Plan: INR is 2.8 02/05/20 and therapeutic. His prior to admission home warfarin dose was continued and warfarin compliance was encouraged. He will need repeat PT/INR 02/08/20 and follow-up with Dr. Marks for warfarin management outpatient. (5) Chronic pain syndrome: Code(s): G89.4 - Chronic pain syndrome Status: Chronic Assessment and Plan: See above a/p. (6) Chronic narcotic use: Code(s): F11.90 - Opioid use, unspecified, uncomplicated Status: Chronic Assessment and Plan: See above a/p. DS: Summary Hospital Course Reason for hospitalization: Sickle cell crisis Hospital Course: As above. Status at Discharge Functional status at discharge: independent ambulation Overall status at discharge: patient is back to baseline Time Spent with Patient Time attestation: Total time spent providing and/or coordinating discharge services: 32 minutes Exam Narrative: Exam Narrative: Vitals at presentation: Temp Pulse Resp BP Pulse Ox 98.0 F 80 20 153/87 H 100 02/01/20 11:03 02/01/20 11:03 02/01/20 11:03 02/01/20 11:03 02/01/20 11:03 Vitals at discharge: Temp Pulse Resp BP
== END 2020-02-05 14:55 | disposition home or self-care (01) | DRG 662 ==
LOC: ANHED 14:40 → ANH3MED 15:04
PROVIDERS: Emergency Medicine Emergency Medical Services; Physician Assistant; Admitting Provider Family Medicine; Emergency Provider Emergency Medicine; PCP Internal Medicine Hematology & Oncology; Visit Provider Family Medicine
DX: D57.219 Sickle-cell/Hb-C disease with crisis, unspecified (principal); G89.4 Chronic pain syndrome; R79.1 Abnormal coagulation profile; Z79.01 Long term (current) use of anticoagulants; Z79.891 Long term (current) use of opiate analgesic; Z86.711 Personal history of pulmonary embolism; Z86.718 Personal history of other venous thrombosis and embolism; Z91.14 Patient's other noncompliance with medication regimen
CPT/HCPCS: 36415; 71045; 80048; 80053; 80307; 81003; 83615; 83735; 85025; 85027; 85046; 85055; 85610; 96361; 96374; 96375; 96376; 99285; A9270; G0378; G0379; J1170; J1650; J2270; J3360; J7030

== ENCOUNTER 2020-02-20 18:07 | Inpatient (IN) | payer OTHER, SELFPAY ==
[2020-02-20] VITALS (8 sets, daily range): BP systolic 111–138; BP diastolic 64–92; PULSE 72–84; RESP 16–18; TEMP 36.4–36.8; O2SAT 92–100; BMI 31.8
--- NOTE | ~2020-02-20 | XR_ITS ---
EXAMINATION: XR chest 2V DATE: 02/20/2020 22:03 INDICATION: Sickle cell crisis. TECHNIQUE: Frontal and lateral views of the chest were obtained. COMPARISON: Chest single view 02/01/2020 FINDINGS: There are chronic reticular opacities at the lung bases. No pleural effusion or pneumothora x. The heart size is normal. IMPRESSION: 1. Stable chronic sickle cell lung disease. Reviewed, dictated and finalized at location A. [employer]
--- NOTE | 2020-02-20 19:05 | ED.GENADULT ---
HPI - General Adult General Chief complaint: Unspecified Stated complaint: Sickle cell pain Time Seen by Provider: 02/20/20 19:05 Source: patient Mode of arrival: ambulatory Limitations: no limitations History of Present Illness HPI narrative: Patient is a 34 yo male with a history of sickle cell disease who presents for evaluation of arm and leg pain, reporting sickle cell crisis. Patient states he has had increased soreness over the past 24 hours. He denies fever, chills, cough, chest pain or shortness of breath. He denies having any red or swollen joints. Patient has been ambulatory. He has been taking his oxycodone and breakthrough pain medication at home with minimal improvement in his symptoms. Last doses were over 5 hours ago. Patient states he usually is able to obtain some IV Dilaudid and fluids unable to go home. Patient has otherwise been compliant with his anticoagulation. He states that he missed a dose 2 days ago, and has not missed any other further doses. He denies any extremity swelling or redness. Related Data Home Medications Medication Instructions Recorded Confirmed folic acid 1 mg PO DAILY 02/16/19 02/01/20 hydroxyurea [Hydrea] 500 mg PO BID 02/16/19 02/01/20 oxycodone-acetaminophen 1 tablet PO Q4HWA PRN 11/08/19 02/01/20 warfarin 2 mg PO DAILY 11/08/19 02/01/20 methadone 10 mg PO TID 11/09/19 02/01/20 Allergies Allergy/AdvReac Type Severity Reaction Status Date / Time Fish Containing Products Allergy Intermediate Itching Verified 02/20/20 18:47 Review of Systems Review of Systems: Narrative: CONSTITUTIONAL: Denies fever, chills, or sweats. EYES: Denies visual changes, redness, or discharge. ENT: Denies rhinorrhea, congestion, sore throat, or otalgia. CARDIOVASCULAR: Denies chest pain, palpitations, or edema. RESPIRATORY: Denies cough or dyspnea. GASTROINTESTINAL: Denies abdominal pain, nausea, vomiting, or diarrhea. GENITOURINARY: Denies dysuria or hematuria. SKIN: Denies rash or itching. MUSCULOSKELETAL: Denies back pain, reports myalgias NEUROLOGIC: Denies headache, numbness, or weakness. [facility] Past Medical History Medical History Acute chest syndrome Chronic anticoagulation Due to history of DVT and pulmonary embolism. Chronic narcotic use On methadone with oxycodone for chronic pain related to his sickle cell disease. Deep venous thrombosis Noncompliance History of noncompliance with anticoagulation and hydroxyurea. Pulmonary embolism Sickle cell disease, type SC Surgical History Surgical History History of hand surgery Tendon surgery on right 5th finger. Family History Family History Grandparent Acute myocardial infarction Sibling Asthma Sibling Asthma Mother Hypertension Son Sickle cell trait Daughter Sickle cell trait Grandparent Diabetes mellitus Social History Social History Social History: The patient lives in [place] with his family. He is on disability due to sickle cell disease and chronic pain. He designates his friend, Keyla Luther, as his surrogate decision maker and he wishes to be a full code. He is a lifelong nonsmoker and denies alcohol and drug use. Additional occupation/education comments: Gender identity (if verbalized by the patient): Male Spiritual care concerns: No Agree to blood products: Yes Exam Narrative: Exam Narrative: GENERAL: Awake, alert, conversant, uncomfortable appearing HEAD: Normocephalic, atraumatic. EYES: PERRLA and EOMI. ENT: Nares clear, no rhinorrhea or epistaxis. Mucous membranes moist. NECK: Supple. CHEST: No respiratory distress, breathing even and non labored HEART: Regular rate, sinus rhythm ABDOMEN:Non distended, non tender EXTREMITIES: Normal range of motion. No edema.
--- NOTE | 2020-02-20 19:10 | PC.NURSE ---
assuming care of pt at this time, received report from sam painter
--- NOTE | 2020-02-20 19:10 | PC.NURSE ---
regina painter attempting to get IV in pt via US
[2020-02-20] MEDS: SODIUM CHLORIDE 0.9% IV 1,000 ML 999 ML IV CONT (19:29)
[2020-02-20 19:31] LABS: Hematocrit 27.7 % (42.0-52.0); Hemoglobin 9.9 g/dL (14.0-18.0); Mean Corpuscular HGB Conc 35.7 g/dl (32-36); Mean Corpuscular Hemoglobin 32.4 pg (26-34); Mean Corpuscular Volume 90.5 fl (80-100); Mean Platelet Volume 10.2 fl (7.4-10.4); Platelet Count Result 295 k/mm3 (150-375); Red Blood Count 3.06 M/mm3 (4.6-6.20); Red Cell Distribution Width 14.4 % (11.5-14.5); White Blood Count 15.4 K/mm3 (4.5-10.0)
[2020-02-20] MEDS: diphenhydrAMINE HCl INJ 50 MG/ML VIAL 25 MG IV PUSH (19:35)
[2020-02-20] MEDS: HYDROmorphone HCL INJ (*CRX) 1 MG/ML SYR 2 MG IV PUSH ×2 (19:36→22:34)
[2020-02-20 19:40] LABS: INR 2.6; Prothrombin Time 28.1 Seconds (11.1-14.7)
[2020-02-20 19:42] LABS: Anion Gap 9 mmol/L (8-16); Blood Urea Nitrogen 6 mg/dL (9-20); Calcium 8.8 mg/dL (8.4-10.2); Carbon Dioxide 26 mmol/L (22-30); Chloride 108 mmol/L (98-107); Estimated CRCL calculation 130 ml/min; Estimated Glomerular Filt Rate > 60; Glucose 99 mg/dL (75-110); Lactate Dehydrogenase 826 U/L (313-618); Potassium 4.4 mmol/L (3.4-5.0); Sodium 143 mmol/L (137-145)
[2020-02-20 19:43] LABS: Neutrophils Percent Manual 61 % (46-73); Total Cells Counted 100
[2020-02-20 19:44] LABS: Eosinophils Percent Manual 2 % (0-4); Lymphocytes Absolute Manual 4.77 K/mm3 (1.1-4.5); Lymphocytes Percent Manual 31 % (18-44); Monocytes Absolute Manual 0.92 K/mm3 (0.1-0.90); Monocytes Percent Manual 6 % (3-9)
[2020-02-20 19:45] LABS: Anisocytosis 1+ (NORMAL); Platelet Estimate Adequate (Adequate); Poikilocytosis 2+ (NORMAL)
[2020-02-20 19:46] LABS: Atypical Lymphocytes Present; Ovalocytes 1+ (NORMAL); Sickle Cells 1+ (NORMAL); Target Cells 3+ (NORMAL)
[2020-02-20 20:49] LABS: Immature Reticulocyte Fraction 25.5 % (3.0-15.9); Reticulocyte Hemoglobin Conten 30.7 pg (28.2-35.7); Reticulocyte Percent 4.91 % (0.7-4.3)
[2020-02-20 20:52] LABS: Reticulocytes Absolute 0.13 B/L (32.2-175.7)
[2020-02-20] MEDS: HYDROmorphone HCL INJ (*CRX) 1 MG/ML SYR 4 MG IV PUSH (21:09)
[2020-02-20] MEDS: HYDROmorphone HCL INJ (*CRX) 1 MG/ML SYR 0.5 MG IV PUSH (22:30)
[2020-02-20] MEDS: IBUPROFEN 400 MG TABLET PO (23:18)
--- NOTE | 2020-02-20 23:50 | ADMGEN ---
This patient, Quan Downing, was admitted to 3 [facility] Surg Room 310-01. Patient/family oriented to hospital policies and general routines including ID bracelet, bed and alarms, visiting hours, pain management, procedures, bathroom and other care routines, personal items, smoking policy, room service/diet, and visiting hours. Information on how to activate the Rapid Response Team has been discussed. Patient/Family are encouraged to report perceived risks to care and to ask questions if they do not understand what they are told or what they should do.
--- NOTE | 2020-02-20 23:59 | PM.IMHP ---
H&P: HPI History of Present Illness Date/Time: 02/20/20 23:59 Chief complaint: Sickle cell crisis Narrative: Quan Downing is a 34 year old male who has sickle cell anemia. He is followed by Dr. stallings. The patient has been here on multiple occasions. His last visit was approximately 2 weeks ago. The patient is already on methadone. I asked the patient who his pain management doctor is and he stated it is Dr. stallings. I explained to the patient that he is been getting frequent Dilaudid and that he is going to build up a tolerance to this medication. The patient stated that is the only 1 that helps his pain. He stated that he has been taking his medication as prescribed. He was given Benadryl IV in the emergency room. He was also given ibuprofen. It appears that patient received approximately a and 0.5 mg of Dilaudid IV while in the emergency room. When I went to see the patient in the emergency room he was still complaining of shoulder pain and bilateral hip pain. A history of DVT and PE. And chronic narcotic use due to chronic pain syndrome sickle cell disease. His home medications include oxycodone and methadone. The patient is not sure what precipitated this onset of increased pain. Patient's INR is 2.6. Patient is being admitted for observation. Patient was also given IV fluids. Date of admission to observation is 02/20/2020 Review of Systems Review of Systems: All systems reviewed & are unremarkable except as noted in HPI and below Constitutional: Constitutional: Reports as per HPI and Reports no additional constitutional complaints Eyes: Eyes: Reports as per HPI and Reports no additional eye complaints ENT: Reports system reviewed and no additional complaints, except as documented and Reports Normal hearing present Cardiovascular: Cardiovascular: Reports no additional cardiovascular complaints Respiratory: Respiratory: Reports no additional respiratory complaints and Reports no additional respiratory complaints Gastrointestinal: Gastrointestinal: Reports as per HPI and Reports no additional gastrointestinal complaints Musculoskeletal: Musculoskeletal: Reports no additional musculoskeletal complaints Integumentary/Breasts: Skin/Breast: Reports system reviewed and no additional complaints, except as docu and Reports as per HPI Neurologic: Reports system reviewed and no additional complaints, except as documented, Reports as per HPI and Reports Normal hearing present Psychiatric: Psychiatric: Reports no additional psychiatric complaints and Reports as per HPI Endocrine: Endocrine: Reports no additional endocrine complaints Hematologic/Lymphatic: Hematologic/Lymphatic: Reports no additional hematologic/lymphatic complaints Allergic/Immunologic: Allergic/Immunologic: Reports no additional allergic/immunologic complaints PMFSH Past Medical History Medical History Acute chest syndrome Chronic anticoagulation Due to history of DVT and pulmonary embolism. Chronic narcotic use On methadone with oxycodone for chronic pain related to his sickle cell disease. Deep venous thrombosis Noncompliance History of noncompliance with anticoagulation and hydroxyurea. Pulmonary embolism Sickle cell disease, type SC Surgical History Surgical History History of hand surgery Tendon surgery on right 5th finger. Family History Family History Grandparent Acute myocardial infarction Diabetes mellitus Sibling Asthma Sibling Asthma Mother Hypertension Son Sickle cell trait Daughter Sickle cell trait Grandparent No problems noted. Other Diabetes mellitus Social History Social History (Updated 02/21/20 @ 00:07 by Alis Rodriguez NP) Social History: The patient lives in [place] with his family. He is on disability due to sickle cell diseas
[2020-02-21] MEDS: SODIUM CHLORIDE 0.9% IV 1,000 ML 125 ML IV CONT ×3 (00:24→16:20)
[2020-02-21] MEDS: HYDROmorphone HCL INJ (*CRX) 1 MG/ML SYR 2 MG IV PUSH (01:38)
[2020-02-21 01:43] LABS: INR 2.6
[2020-02-21 05:10] VITALS: BP 118/74; PULSE 70; RESP 16; TEMP 36.5; O2SAT 94
[2020-02-21 06:00] VITALS: BP 109/66; PULSE 74; RESP 18; TEMP 36.5; O2SAT 94
[2020-02-21] MEDS: methADONE HCL (*CRX) 10 MG TABLET PO ×3 (08:28→17:33)
[2020-02-21] MEDS: HYDROmorphone HCL INJ (*CRX) 1 MG/ML SYR IV PUSH ×3 (08:36→21:44)
[2020-02-21 08:56] LABS: Basophils Absolute Auto 0.1 K/mm3 (0.0-0.1); Basophils Percent Auto 0.4 % (0.2-1.2); Eosinophils Absolute Auto 0.2 K/mm3 (0-0.3); Eosinophils Percent Auto 1.6 % (0-4.4); Hematocrit 27.1 % (42.0-52.0); Hemoglobin 9.7 g/dL (14.0-18.0); Immature Granulocyte Absolute 0.03 K/mm3 (0.00-0.031); Immature Granulocyte Percent A 0.2 % (0-0.5); Lymphocytes Absolute Auto 3.03 K/mm3 (0.9-3.2); Lymphocytes Percent Auto 24.6 % (18.3-44.2); Mean Corpuscular HGB Conc 35.8 g/dl (32-36); Mean Corpuscular Hemoglobin 32.2 pg (26-34); Mean Platelet Volume 10.3 fl (7.4-10.4); Monocytes Absolute Auto 1.3 K/mm3 (0.1-0.6); Monocytes Percent Auto 10.2 % (2.6-8.5); Neutrophils Absolute Auto 7.7 K/mm3 (1.3-6.7); Nucleated Red Blood Cells Perc 0.2 % (0.0-0.2); Platelet Count Result 276 k/mm3 (150-375); Red Blood Count 3.01 M/mm3 (4.6-6.20); Red Cell Distribution Width 14.6 % (11.5-14.5); White Blood Count 12.3 K/mm3 (4.5-10.0)
[2020-02-21 09:08] LABS: Alanine Aminotransferase 23 U/L (4-50); Albumin Level 4.2 g/dL (3.5-5.1); Alkaline Phosphatase 78 U/L (38-126); Anion Gap 7 mmol/L (8-16); Aspartate Amino Transferase 39 U/L (17-59); Bilirubin,Total 0.9 mg/dL (0.2-1.3); Blood Urea Nitrogen 7 mg/dL (9-20); Calcium 8.7 mg/dL (8.4-10.2); Carbon Dioxide 27 mmol/L (22-30); Chloride 108 mmol/L (98-107); Estimated CRCL calculation 149 ml/min; Estimated Glomerular Filt Rate > 60; Glucose 101 mg/dL (75-110); Magnesium 2.1 mg/dL (1.6-2.3); Potassium 4.1 mmol/L (3.4-5.0); Sodium 142 mmol/L (137-145)
[2020-02-21] MEDS: FOLIC ACID 1 MG TABLET PO (12:30)
[2020-02-21] MEDS: HYDROXYUREA (*CHEMO) 500 MG CAPSULE PO ×2 (12:30→17:33)
--- NOTE | 2020-02-21 13:12 | PM.IMPN ---
Progress Note: A&P Assessment and Plan (1) Sickle-cell disease with pain: Code(s): D57.00 - Hb-SS disease with crisis, unspecified Status: Acute Assessment and Plan: The patient has been admitted to the hospitalist service for further treatment of sickle cell crisis with acute on chronic pain secondary to such. His reticulocyte count is a bit elevated than baseline; LDH 826 02/19. Dr[address] Marks has been consulted and appreciate recommendations. Patient in pain today but appears he has not tried any PO [place] today; instructed nursing to attempt to administer this to see if his pain improves. Continue maintenance methadone. Continue Dilaudid 1 mg q.4 hours as needed for severe pain; norco PO PRN for mod pain Will defer further adjustments to Dr. 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 He has had a history of VTE Will do daily PT INRs. Continue home Coumadin (3) Chronic narcotic use: Code(s): F11.90 - Opioid use, unspecified, uncomplicated Status: Chronic Assessment and Plan: The patient is chronically on methadone and oxycodone at home. Dr. Marks manages Continue home methadone Further adjustments per Dr. Marks Subjective Date/time seen: 02/21/20 13:12 Interval history: Patient is a 34 yo M with sickle cell disease SC, chronic pain syndrome, and history of pulmonary embolism on warfarin who is seen in follow up for sickle cell crisis. Patient states pain is the same as yesterday, although it appears patient has yet to try norco that has been ordered to see if that helps with his pain. His pain is in his b/l UE/LE. Otherwise no other complaints. Denies f/c/s, dizziness, lightheadedness, cp/palpitations, pleuritic chest pain, sob/cough, n/v, abd pain, LE swelling. Review of Systems Review of Systems: All systems reviewed & are unremarkable except as noted in HPI and below Exam Narrative: Exam Narrative: General: Patient resting on left side in bed appearing uncomfortable; requests med adjustments HEENT: Normocephalic, EOMI, oral mucosa moist. Cardiovascular: Rate and rhythm are regular. No notable murmur, rub, or gallop. Respiratory: Lungs clear to auscultation all polanco. Non-labored breathing. Abdomen: Soft, non-tender, non-distended, bowel sounds present. Extremities: Peripheral pulses intact. No edema. NTTP b/l calves Neuro: No focal neurological deficits. Speech is clear. Objective Data Vital Signs Vital Signs: Last Vital Signs Temp 97.7 F 02/21/20 06:00 Pulse 74 02/21/20 06:00 Resp 18 02/21/20 06:00 BP 109/66 02/21/20 06:00 Pulse Ox 94 02/21/20 06:00 Intake/Output Intake/Output: Intake & Output 02/18/20 02/19/20 02/20/20 02/21/20 23:59 23:59 23:59 23:59 Intake Total 1250 Output Total 500 Balance 750 Meds/Results Medications: Active Medications Generic Name Dose Route Start Last Admin Trade Name Freq PRN Reason Stop Dose Admin Hydrocodone Bitart/Acetaminophen 2 tab 02/21/20 08:08 Hydrocodone/Acetaminophen (*Crx) 5-325 Mg Tablet PO Q4H PRN Pain Rated 4-6 Folic Acid 1 mg 02/21/20 09:00 02/21/20 12:30 Folic Acid 1 Mg Tablet PO 1 mg DAILY CHRISTOPHER Administration Hydromorphone HCl 1 mg 02/20/20 22:54 02/21/20 08:36 Hydromorphone Hcl Inj (*Crx) 1 Mg/Ml Syr IV PUSH 1 mg Q4H PRN Administration Pain Rated 7-10 Hydroxyurea 500 mg 02/21/20 09:00 02/21/20 12:30 Hydroxyurea (*Chemo) 500 Mg Capsule PO 500 mg BID CHRISTOPHER Administration Sodium Chloride 1,000 mls @ 125 mls/hr 02/20/20 22:55 11/08/20 08:26 Normal Saline Iv IV CONT 125 mls/hr .Q8H CHRISTOPHER Administration Methadone HCl 10 mg 02/21/20 09:00 02/21/20 12:30
[2020-02-21] MEDS: HYDROcodone/acetaminophen (*CRX) 5-325 MG TABLET 2 TAB PO ×3 (13:22→23:32)
--- NOTE | 2020-02-21 13:25 | PC.NURSE ---
Pt rating pain 10/10 at 0840. Gave 1 mg hydromorphone. Pain still 10/10. He said it offered no relief at all. Offered pt norco, but he refused. Called to Saul at 1000. He deferred to Kendrick. Called Kendrick and left a VM. Offered norco again. Spoke with Saul at 1300. He suggested administering the norco to see if it brought any relief, and using the hydromorphone for break through. Will reassess and continue to monitor.
[2020-02-21 14:00] VITALS: BP 120/73; PULSE 78; RESP 20; TEMP 36.8; O2SAT 96
[2020-02-21] MEDS: WARFARIN (*PBKC) 2 MG TABLET PO (18:35)
[2020-02-21] MEDS: WARFARIN (*PBKC) 10 MG TABLET PO (18:36)
[2020-02-21 22:00] VITALS: BP 129/79; PULSE 73; RESP 16; TEMP 37.6; O2SAT 97
[2020-02-22] MEDS: SODIUM CHLORIDE 0.9% IV 1,000 ML 125 ML IV CONT ×3 (00:19→16:38)
[2020-02-22] MEDS: HYDROmorphone HCL INJ (*CRX) 1 MG/ML SYR IV PUSH ×5 (03:58→22:17)
[2020-02-22 06:00] VITALS: BP 108/64; PULSE 79; RESP 16; TEMP 36.6; O2SAT 94
[2020-02-22 06:42] LABS: Basophils Percent Auto 0.4 % (0.2-1.2); Eosinophils Absolute Auto 0.2 K/mm3 (0-0.3); Eosinophils Percent Auto 1.9 % (0-4.4); Hemoglobin 9.7 g/dL (14.0-18.0); Immature Granulocyte Absolute 0.04 K/mm3 (0.00-0.031); Immature Granulocyte Percent A 0.4 % (0-0.5); Immature Platelet Fraction Pct 5.6 % (0.9-11.2); Immature Reticulocyte Fraction 27.9 % (3.0-15.9); Lymphocytes Absolute Auto 3.06 K/mm3 (0.9-3.2); Mean Corpuscular HGB Conc 35.9 g/dl (32-36); Mean Corpuscular Hemoglobin 32.4 pg (26-34); Mean Corpuscular Volume 90.3 fl (80-100); Mean Platelet Volume 10.8 fl (7.4-10.4); Monocytes Absolute Auto 1.4 K/mm3 (0.1-0.6); Neutrophils Absolute Auto 6.6 K/mm3 (1.3-6.7); Neutrophils Percent Auto 58.3 % (45.5-73.1); Nucleated Red Blood Cells Perc 0.2 % (0.0-0.2); Platelet Count Result 273 k/mm3 (150-375); Red Blood Count 2.99 M/mm3 (4.6-6.20); Red Cell Distribution Width 14.3 % (11.5-14.5); Reticulocyte Hemoglobin Conten 32.2 pg (28.2-35.7); Reticulocyte Percent 5.46 % (0.7-4.3); Reticulocytes Absolute 0.16 B/L (32.2-175.7); White Blood Count 11.3 K/mm3 (4.5-10.0)
[2020-02-22 06:44] LABS: Prothrombin Time 31.9 Seconds (11.1-14.7)
[2020-02-22 07:00] LABS: Anion Gap 6 mmol/L (8-16); Blood Urea Nitrogen 6 mg/dL (9-20); Calcium 8.7 mg/dL (8.4-10.2); Carbon Dioxide 26 mmol/L (22-30); Chloride 107 mmol/L (98-107); Estimated CRCL calculation 149 ml/min; Estimated Glomerular Filt Rate > 60; Glucose 92 mg/dL (75-110); Lactate Dehydrogenase 744 U/L (313-618); Magnesium 2.2 mg/dL (1.6-2.3); Potassium 3.7 mmol/L (3.4-5.0); Sodium 139 mmol/L (137-145)
[2020-02-22 08:00] VITALS: PULSE 79; RESP 16; O2SAT 94
[2020-02-22] MEDS: methADONE HCL (*CRX) 10 MG TABLET PO ×3 (08:26→16:40)
[2020-02-22] MEDS: HYDROXYUREA (*CHEMO) 500 MG CAPSULE PO ×2 (08:26→16:40)
[2020-02-22] MEDS: FOLIC ACID 1 MG TABLET PO (08:26)
[2020-02-22 08:42] LABS: Hypochromasia 1+ (NORMAL); Platelet Estimate Adequate (Adequate); Sickle Cells 1+ (NORMAL); Target Cells 1+ (NORMAL)
--- NOTE | 2020-02-22 11:02 | PM.IMPN ---
Progress Note: A&P Assessment and Plan (1) Sickle-cell disease with pain: Code(s): D57.00 - Hb-SS disease with crisis, unspecified Status: Acute Assessment and Plan: The patient has been admitted to the hospitalist service for further treatment of sickle cell crisis with acute on chronic pain secondary to such. His reticulocyte count is a bit elevated than baseline; LDH 744 02/21; % retic elevated at 5.46 02/21. Dr. Marks has been consulted and appreciate recommendations. Patient in pain again today. Continue maintenance methadone. Will increase freq of Dilaudid 1 mg to q.3 hours as needed for severe pain; norco PO PRN for mod pain Will give one time dose of 1 mg dilaudid now Will defer further adjustments to Dr. 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 He has had a history of VTE Will do daily PT INRs. Continue home Coumadin (3) Chronic narcotic use: Code(s): F11.90 - Opioid use, unspecified, uncomplicated Status: Chronic Assessment and Plan: The patient is chronically on methadone and oxycodone at home. Dr. Marks manages Continue home methadone Further adjustments per Dr. Marks Subjective Date/time seen: 02/22/20 11:02 Interval history: Patient is a 34 yo M with sickle cell disease SC, chronic pain syndrome, and history of pulmonary embolism on warfarin who is seen in follow up for sickle cell crisis. Patient states pain is the same as yesterday. His pain is in his b/l UE/LE. Requesting adjustment in meds; discussed that Dr. Marks will be following him. Otherwise no other complaints. Denies f/c/s, dizziness, lightheadedness, cp/palpitations, pleuritic chest pain, sob/cough, n/v, abd pain, LE swelling. Review of Systems Review of Systems: All systems reviewed & are unremarkable except as noted in HPI and below Exam Narrative: Exam Narrative: General: Patient resting on left side in bed appearing uncomfortable; watching TV show on laptop HEENT: Normocephalic, EOMI, oral mucosa moist. Cardiovascular: Rate and rhythm are regular. No notable murmur, rub, or gallop. Respiratory: Lungs clear to auscultation all polanco. Non-labored breathing. Abdomen: Soft, non-tender, non-distended, bowel sounds present. Extremities: Peripheral pulses intact. No edema. NTTP b/l calves Neuro: No focal neurological deficits. Speech is clear. Objective Data Vital Signs Vital Signs: Vital Signs - 24 hr 02/21/20 14:00 02/21/20 22:00 02/22/20 06:00 Temperature 98.2 F 99.6 F 97.8 F Pulse Rate 78 73 79 Respiratory Rate 20 16 16 Blood Pressure 120/73 129/79 108/64 Pulse Oximetry 96 97 94 Intake/Output Intake/Output: Intake & Output 02/19/20 02/20/20 02/21/20 02/22/20 23:59 23:59 23:59 23:59 Intake Total 2850 2480 Output Total 2900 1025 Balance -50 1455 Meds/Results Medications: Active Medications Generic Name Dose Route Start Last Admin Trade Name Freq PRN Reason Stop Dose Admin Hydrocodone Bitart/Acetaminophen 2 tab 02/21/20 08:08 02/21/20 23:32 Hydrocodone/Acetaminophen (*Crx) 5-325 Mg Tablet PO 2 tab Q4H PRN Administration Pain Rated 4-6 Folic Acid 1 mg 02/21/20 09:00 02/22/20 08:26 Folic Acid 1 Mg Tablet PO 1 mg DAILY CHRISTOPHER Administration Hydromorphone HCl 1 mg 02/20/20 22:54 02/22/20 08:28 Hydromorphone Hcl Inj (*Crx) 1 Mg/Ml Syr IV PUSH 1 mg Q4H PRN Administration Pain Rated 7-10 Hydroxyurea 500 mg 02/21/20 09:00 11/09/20 08:26 Hydroxyurea (*Chemo) 500 Mg Capsule PO 500 mg BID CHRISTOPHER Administration Sodium Chloride 1,000 mls @ 125 mls/hr 02/20/20 22:55 02/22/20 08:26 Normal Saline Iv IV CONT 125 mls/hr .Q8H CHRISTOPHER Administration Methadon
[2020-02-22 14:00] VITALS: BP 115/70; PULSE 85; RESP 18; TEMP 36.6; O2SAT 98
[2020-02-22] MEDS: WARFARIN (*PBKC) 10 MG TABLET PO (16:39)
[2020-02-22] MEDS: WARFARIN (*PBKC) 2 MG TABLET PO (16:39)
[2020-02-22 22:00] VITALS: BP 129/77; PULSE 86; RESP 18; TEMP 37.1; O2SAT 100
[2020-02-22] MEDS: HYDROmorphone HCL INJ (*CRX) 2 MG/ML VIAL IV PUSH (22:17)
[2020-02-23] MEDS: HYDROmorphone HCL INJ (*CRX) 2 MG/ML VIAL IV PUSH ×7 (01:27→20:44)
[2020-02-23] MEDS: SODIUM CHLORIDE 0.9% IV 1,000 ML 125 ML IV CONT ×3 (01:27→17:19)
[2020-02-23] MEDS: HYDROmorphone HCL INJ (*CRX) 1 MG/ML SYR IV PUSH ×7 (01:28→20:45)
[2020-02-23 05:38] VITALS: BP 116/73; PULSE 88; RESP 18; TEMP 36.7; O2SAT 95
[2020-02-23 06:40] LABS: Basophils Absolute Auto 0.1 K/mm3 (0.0-0.1); Basophils Percent Auto 0.6 % (0.2-1.2); Eosinophils Absolute Auto 0.4 K/mm3 (0-0.3); Eosinophils Percent Auto 4.4 % (0-4.4); Hemoglobin 9.6 g/dL (14.0-18.0); Immature Granulocyte Absolute 0.03 K/mm3 (0.00-0.031); Immature Granulocyte Percent A 0.3 % (0-0.5); Lymphocytes Absolute Auto 3.47 K/mm3 (0.9-3.2); Lymphocytes Percent Auto 35.3 % (18.3-44.2); Mean Corpuscular HGB Conc 35.6 g/dl (32-36); Mean Corpuscular Hemoglobin 31.8 pg (26-34); Mean Corpuscular Volume 89.4 fl (80-100); Mean Platelet Volume 10.7 fl (7.4-10.4); Monocytes Absolute Auto 0.8 K/mm3 (0.1-0.6); Monocytes Percent Auto 8.4 % (2.6-8.5); Nucleated Red Blood Cells Perc 0.2 % (0.0-0.2); Platelet Count Result 274 k/mm3 (150-375); Red Blood Count 3.02 M/mm3 (4.6-6.20); Red Cell Distribution Width 14.1 % (11.5-14.5); White Blood Count 9.8 K/mm3 (4.5-10.0)
[2020-02-23 06:50] LABS: INR 4.4; Prothrombin Time 42.1 Seconds (11.1-14.7)
[2020-02-23 07:06] LABS: Anion Gap 7 mmol/L (8-16); Blood Urea Nitrogen 7 mg/dL (9-20); Calcium 8.7 mg/dL (8.4-10.2); Carbon Dioxide 27 mmol/L (22-30); Chloride 106 mmol/L (98-107); Estimated CRCL calculation 149 ml/min; Estimated Glomerular Filt Rate > 60; Glucose 102 mg/dL (75-110); Lactate Dehydrogenase 748 U/L (313-618); Magnesium 2.2 mg/dL (1.6-2.3); Potassium 3.8 mmol/L (3.4-5.0); Sodium 140 mmol/L (137-145)
[2020-02-23] MEDS: HYDROXYUREA (*CHEMO) 500 MG CAPSULE PO ×2 (09:09→17:19)
[2020-02-23] MEDS: FOLIC ACID 1 MG TABLET PO (09:09)
[2020-02-23] MEDS: methADONE HCL (*CRX) 10 MG TABLET PO ×3 (09:09→17:21)
--- NOTE | 2020-02-23 12:20 | PM.IMPN ---
Progress Note: A&P Assessment and Plan (1) Sickle-cell disease with pain: Code(s): D57.00 - Hb-SS disease with crisis, unspecified Status: Acute Assessment and Plan: The patient has been admitted to the hospitalist service for further treatment of sickle cell crisis with acute on chronic pain secondary to such. His reticulocyte count is a bit elevated from baseline; LDH 748 today. He is complaining of 8/10 pain today in his bilateral arms and back. Dr. Marks has been consulted and appreciate recommendations Continue maintenance methadone. Dilaudid has been increased to 3 mg IV q.3 hours as needed for severe pain per hematology. Wean dose as tolerated. [place] PO PRN for moderate pain Monitor for improvement (2) Chronic anticoagulation: Code(s): Z79.01 - jail (current) use of anticoagulants Status: Acute Assessment and Plan: On warfarin for history of VTE. INR is supratherapeutic at 4.4 today. WNL at 3.0 yesterday. Hold warfarin dose tonight. Monitor daily PT/INR Consider Vitamin K administration if further increase in INR tomorrow. (3) Chronic narcotic use: Code(s): F11.90 - Opioid use, unspecified, uncomplicated Status: Chronic Assessment and Plan: The patient is chronically on methadone and oxycodone at home. Dr. Marks manages Continue home methadone Further adjustments per Dr. 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 He reports he is having 8/10 pain at this time in his bilateral arms and his back. He had been having pain in his legs but this has resolved. He noted a slight improvement with increase of his pain medication. He endorses decreased appetite. He denies nausea, vomiting, fever, chills, headache, dizziness, lightheadedness, or weakness. Review of Systems Review of Systems: All systems reviewed & are unremarkable except as noted in HPI and below Exam Narrative: Exam Narrative: Mr. Downing is a well-nourished, well-appearing 34-year-old male who is lying semi-recumbent in bed watching a movie. He appears comfortable although occasionally grimaces in pain. He is in NARD. HR 88, BP 116/73, RR 18, T 98.1?, 95% on room air Neuro: awake, alert and oriented x4, speech clear, no focal neuro deficits noted, upper extremity strength 4/5 HEENMT: normocephalic, atraumatic, EOMI, sclerae anicteric, moist oral mucosa, tongue midline, nares patent Neck: supple, no lymphadenopathy Respiratory: clear to auscultation bilaterally, nonlabored breathing Cardio: regular rate, regular rhythm with S1-S2 Abdomen: nondistended, normoactive bowel sounds, soft, nontender to palpation, no rigidity or guarding Extremities: no edema, erythema, cyanosis, clubbing, or tenderness to palpation, DP pulses 2+ bilaterally Skin: no rashes or lesions, warm and dry Psych: appropriate mood and affect, judgment and insight intact Objective Data Vital Signs Vital Signs: Vital Signs - 24 hr 02/22/20 14:00 02/22/20 22:00 02/23/20 05:38 Temperature 97.8 F 98.7 F 98.1 F Pulse Rate 85 86 88 Respiratory Rate 18 18 18 Blood Pressure 115/70 129/77 116/73 Pulse Oximetry 98 100 95 Intake/Output Intake/Output: Intake & Output 02/20/20 02/21/20 02/22/20 02/23/20 23:59 23:59 23:59 23:59 Intake Total 2850 5850 2240 Output Total 2900 2325 900 Balance -50 3525 1340 Meds/Results Medications: Active Medications Generic Name Dose Route Start Last Admin Trade Name Freq PRN Reason Stop Dose Admin Hydrocodone Bitart/Acetaminophen 2 tab 02/21/20 08:08 02/21/20 23:32 Hydrocodone/Acetaminophen (*Crx) 5-325 Mg Tablet PO 2 tab Q4H PRN Administration Pain R
[2020-02-23 14:00] VITALS: BP 103/62; PULSE 81; RESP 20; TEMP 36.2; O2SAT 97
--- NOTE | 2020-02-23 17:07 | PDONCCN ---
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 He is well known to Dr. Marks and last seen in our office on 09/18/2019. He attributes his frequent admissions as of late to personal issues and weather. He was at baseline until 24 hours prior to admission when he started experiencing bilat arm and leg pain, making it difficult to walk. He rated his pain 10/10 and currently 8/10 after IV Dilaudid. He had anorexia without nausea and vomiting, abdominal pain or altered bowel habits but now has appetite today and eating solid food. He has been more compliant on Coumadin and continues Hydrea BID. He otherwise denies fevers or chills, SOB, CP, new headaches, extremity pain and swelling, or signs of active bleeding. Review of Systems - Neurologic Reports system reviewed and no additional complaints, except as documented, Reports hearing normal [facility] Medical History: Medical History (Last Reviewed 02/21/20 @ 00:06 by Alis Rodriguez NP) Acute chest syndrome Chronic anticoagulation Due to history of DVT and pulmonary embolism. Chronic narcotic use On methadone with oxycodone for chronic pain related to his sickle cell disease. Deep venous thrombosis Noncompliance History of noncompliance with anticoagulation and hydroxyurea. Pulmonary embolism Sickle cell disease, type SC Surgical History: Surgical History (Last Reviewed 02/21/20 @ 00:06 by Alis Rodriguez NP) History of hand surgery Tendon surgery on right 5th finger. Family History: Family History (Last Updated 02/21/20 @ 00:11 by Jaclyn Crowe RN) Grandparent Acute myocardial infarction Diabetes mellitus Sibling Asthma Sibling Asthma Mother Hypertension Son Sickle cell trait Daughter Sickle cell trait Grandparent No problems noted. Other Diabetes mellitus - Social History Social History: Social History (Last Updated 02/21/20 @ 00:07 by Alis Rodriguez NP) Gender Identity: Gender identity (if verbalized by the patient): Male Alcohol Use: Alcohol intake: never Substance Use: Substance use: former Substance use type: marijuana Others: Spiritual care concerns: No Agree to blood products: Yes Smoking Status: Smoking status: Never smoker Meds Home Medications Medication Instructions Recorded Confirmed Type folic acid 1 mg PO DAILY 02/16/19 02/21/20 History hydroxyurea [Hydrea] 500 mg PO BID 02/16/19 02/21/20 History warfarin [Coumadin] 10 mg PO DAILY@1700 #30 tablet 09/05/19 02/21/20 Rx oxycodone-acetaminophen 1 tablet PO Q4H PRN 11/08/19 02/21/20 History warfarin 2 mg PO DAILY 11/08/19 02/21/20 History methadone 10 mg PO TID 11/09/19 02/21/20 History Allergies Allergy/AdvReac Type Severity Reaction Status Date / Time Fish Containing Products Allergy Intermediate Itching Verified 02/21/20 00:09 Results - Labs CBC & Chem 7: 02/23/20 05:50 02/23/20 05:50 Labs: Short CBC 02/23/20 Range/Units 05:50 WBC 9.8 (4.5-10.0) K/mm3 Hgb 9.6 L (14.0-18.0) g/dL Hct 27.0 L (42.0-52.0) % Plt Count 274 (150-375) k/mm3 BMP 02/23/20 05:50 Sodium 140 Potassium 3.8 Chloride 106 Carbon Dioxide 27 BUN 7 L Creatinine 0.70 Glucose 102 Calcium 8.7 Assessment and Plan - Additional Plan 1. Sickle cell crisis, hemoglobin SC disease. WBC normalized with stable Hgb and normal platelets. LDH trending downward, from 826 to 748. Daily CBC, LDH and retic count. Pain improving. Continue current pain regimen, Hydrea, folic acid and IV hydration. Pt declined referral to sickle cell clinic at [facility], previously seen by Dr. Alvarado but severed ties with [facility] at satellite clinic in [place]. Discussed with Dr. Gaspar
[2020-02-23 22:00] VITALS: BP 122/67; PULSE 73; RESP 16; TEMP 36.4; O2SAT 97
[2020-02-23 22:39] VITALS: BP 122/67; PULSE 73; RESP 16; TEMP 36.4; O2SAT 97
[2020-02-24] MEDS: HYDROmorphone HCL INJ (*CRX) 2 MG/ML VIAL IV PUSH ×6 (00:18→16:11)
[2020-02-24] MEDS: HYDROmorphone HCL INJ (*CRX) 1 MG/ML SYR IV PUSH ×5 (00:18→12:41)
[2020-02-24] MEDS: SODIUM CHLORIDE 0.9% IV 1,000 ML 125 ML IV CONT ×2 (00:59→09:37)
[2020-02-24 06:00] VITALS: BP 131/54; PULSE 66; RESP 18; TEMP 36.4; O2SAT 95
[2020-02-24 06:27] LABS: INR 3.6; Prothrombin Time 36.6 Seconds (11.1-14.7)
[2020-02-24 06:29] LABS: Basophils Absolute Auto 0.1 K/mm3 (0.0-0.1); Basophils Percent Auto 1.1 % (0.2-1.2); Eosinophils Absolute Auto 0.5 K/mm3 (0-0.3); Hematocrit 27.8 % (42.0-52.0); Hemoglobin 9.8 g/dL (14.0-18.0); Immature Granulocyte Absolute 0.02 K/mm3 (0.00-0.031); Immature Granulocyte Percent A 0.2 % (0-0.5); Immature Reticulocyte Fraction 22.8 % (3.0-15.9); Lymphocytes Absolute Auto 3.48 K/mm3 (0.9-3.2); Lymphocytes Percent Auto 40.9 % (18.3-44.2); Mean Corpuscular HGB Conc 35.3 g/dl (32-36); Mean Corpuscular Volume 90.8 fl (80-100); Mean Platelet Volume 10.6 fl (7.4-10.4); Monocytes Absolute Auto 0.8 K/mm3 (0.1-0.6); Monocytes Percent Auto 9.3 % (2.6-8.5); Neutrophils Absolute Auto 3.6 K/mm3 (1.3-6.7); Neutrophils Percent Auto 42.5 % (45.5-73.1); Nucleated Red Blood Cells Perc 0.2 % (0.0-0.2); Platelet Count Result 290 k/mm3 (150-375); Red Blood Count 3.06 M/mm3 (4.6-6.20); Red Cell Distribution Width 14.2 % (11.5-14.5); Reticulocyte Hemoglobin Conten 30.8 pg (28.2-35.7); Reticulocyte Percent 5.06 % (0.7-4.3); Reticulocytes Absolute 0.15 B/L (32.2-175.7); White Blood Count 8.5 K/mm3 (4.5-10.0)
[2020-02-24 06:30] LABS: Anion Gap 5 mmol/L (8-16); Blood Urea Nitrogen 8 mg/dL (9-20); Calcium 8.7 mg/dL (8.4-10.2); Carbon Dioxide 27 mmol/L (22-30); Chloride 108 mmol/L (98-107); Estimated CRCL calculation 149 ml/min; Estimated Glomerular Filt Rate > 60; Glucose 100 mg/dL (75-110); Lactate Dehydrogenase 737 U/L (313-618); Magnesium 2.1 mg/dL (1.6-2.3); Sodium 140 mmol/L (137-145)
[2020-02-24 07:29] LABS: Platelet Estimate Adequate (Adequate); Target Cells 1+ (NORMAL)
[2020-02-24 07:30] LABS: Anisocytosis 1+ (NORMAL); Hypochromasia 1+ (NORMAL); Ovalocytes 1+ (NORMAL); Sickle Cells 1+ (NORMAL)
[2020-02-24] MEDS: HYDROXYUREA (*CHEMO) 500 MG CAPSULE PO ×2 (08:23→17:27)
[2020-02-24] MEDS: FOLIC ACID 1 MG TABLET PO (08:23)
[2020-02-24] MEDS: methADONE HCL (*CRX) 10 MG TABLET PO ×3 (08:23→17:26)
[2020-02-24 14:00] VITALS: BP 128/76; PULSE 78; RESP 18; TEMP 36.6; O2SAT 97
--- NOTE | 2020-02-24 14:44 | PM.DS ---
DS: Admitting Diagnosis Admitting Diagnosis Admitting Diagnosis: Sickle cell crisis DS: Discharge Diagnosis Discharge Diagnosis (1) Sickle-cell disease with pain: Code(s): D57.00 - Hb-SS disease with crisis, unspecified Status: Acute Assessment and Plan: The patient was admitted to the hospitalist service for further treatment of sickle cell crisis with acute on chronic pain secondary to such. No evidence of precipitating infection. No signs of acute chest syndrome. His reticulocyte count was initially a bit elevated from baseline but demonstrated improvement; LDH improved. He was rehydrated with IV fluids. He had severe pain in his bilateral arms, legs, and back. Analgesics were uptitrated per Dr. Marks for pain control. Patient had improvement with 3 mg IV dilaudid q3h. He was monitored closely with these high doses and was able to tolerate with no evidence of respiratory depression. Weaned to 2 mg IV prior to discharge. He reported improvement in pain and was eager for discharge. Case discussed with Dr. Marks who was comfortable with discharge after weaning of IV narcotics. He will continue maintenance methadone and [place] prn moderate pain. We discussed importance of avoiding alcohol or other sedating drugs while taking narcotics and avoiding driving or operating machinery. (2) Chronic anticoagulation: Code(s): Z79.01 - [facility] (current) use of anticoagulants Status: Acute Assessment and Plan: On warfarin for history of VTE. INR supratherapeutic at 4.4 on 02/22, therefore warfarin was held. Improved to 3.6 on 02/23. Recommended he hold warfarin on 02/23 and resume on 02/24. He needs to check outpatient INR on 02/29/20. (3) Chronic narcotic use: Code(s): F11.90 - Opioid use, unspecified, uncomplicated Status: Chronic Assessment and Plan: The patient is chronically on methadone and oxycodone at home. Dr. Marks manages. Recommended Miralax and colace as needed for opioid-induced constipation. Precautions with narcotic use discussed as noted above. DS: Summary Hospital Course Reason for hospitalization: Sickle cell pain crisis Hospital Course: date of service:02/20/2020 date of discharge: 02/24/2020 Quan Downing is a 34 y.o. male with PMH significant for sickle cell disease, hx of DVT/PE, and chronic narcotic use due to chronic pain syndrome from sickle cell disease who presented to the emergency department on 02/20/20 with complaints of pain in his arms and legs consistent with his prior sickle cell crises. At presentation, vital signs stable, white count mildly elevated, H&H mildly decreased, electrolytes stable, INR 2.6, and CXR showing stable chronic sickle cell lung disease. He was admitted to the hospital service for further evaluation and management was seen in consultation by his camouflage assembler. Please see above for further details. Patient's pain improved and he was eager for discharge home. Case was discussed with Dr. Marks who felt patient was stable for discharge. He was discharged in hemodynamically stable condition on 02/24/2020. He will need to follow-up with Dr. Marks as an outpatient. He will also need to obtain outpatient labs to monitor his INR. Status at Discharge Functional status at discharge: independent ambulation Overall status at discharge: patient is back to baseline Time Spent with Patient Time attestation: Total time spent providing and/or coordinating discharge services: Exam Narrative: Exam Narrative: Mr. Downing is a well-nourished, well-appearing 34-year-old male who is lying semi-recumbent in bed watching a movie. He appears comfortable and is in NARD. HR 66, BP 131/54, RR 18, T 97.6?, 95% on room air Neuro: awake, alert and oriented x4, speech clear, no focal neuro deficits noted HEENMT: normocephalic, atraumatic, EOMI, sclerae anicteric, moist oral mucosa, tongue midline, nares patent Neck: supple, no lymphad
--- NOTE | 2020-02-24 15:02 | P.PNONC_ITS ---
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 Patient is clinically feeling better with current pain management. I will reduce delighted to 2 mg every 3 hours. If his pain remains under good control that he can be discharged home today. He will continue hydroxyurea 500 mg twice a day. He will also continue folic acid. Recurrent pulmonary embolism. INR not therapeutic. He will continue the current dose of Coumadin. - Time Spent With Patient Total time spent is greater than 50% in coordination of care (as documented) at patient's floor/unit and/or counseling patient: 15 - 25 minutes Subjective Interval history: Sickle cell anemia with crisis Recurrent pulmonary embolism Review of Systems - Review of Systems Patient is looking much more comfortable today. He denies any fevers and chills. He has been eating well. Pain is under better control. - Neurologic Reports system reviewed and no additional complaints, except as documented, Reports hearing normal Exam Vital signs: Temp Pulse Resp BP Pulse Ox 36.4 C 66 18 131/54 L 95 02/24/20 06:00 02/24/20 06:00 02/24/20 06:00 02/24/20 06:00 02/24/20 06:00 Narrative: Lungs are clear to auscultation bilaterally Cardiovascular regular rate rhythm no murmurs Abdomen soft nontender nondistended bowel sounds are positive Extremities no edema PN: Objective Data - Labs CBC & Chem 7: 02/24/20 05:57 02/24/20 05:57 Labs: Laboratory Results - last 24 hr 02/24/20 02/24/20 02/24/20 05:57 05:57 05:57 WBC 8.5 RBC 3.06 L Hgb 9.8 L Hct 27.8 L MCV 90.8 MCH 32.0 MCHC 35.3 RDW 14.2 Plt Count 290 MPV 10.6 H Immature Gran % (Auto) 0.2 Neut % (Auto) 42.5 L Lymph % (Auto) 40.9 [place] % (Auto) 9.3 H Eos % (Auto) 6.0 H Baso % (Auto) 1.1 Lymph # (Auto) 3.48 H [place] # (Auto) 0.8 H Eos # (Auto) 0.5 H Baso # (Auto) 0.1 Abs Immat Gran (auto) 0.02 Absolute Neuts (auto) 3.6 Absolute Nucleated RBC 0.0 Nucleated RBC % 0.2 Platelet Estimate Adequate Hypochromasia 1+ Anisocytosis 1+ Sickle Cells 1+ Target Cells 1+ Ovalocytes 1+ Absolute Retic 0.15 L Percent Retic 5.06 H Immature Retic Fraction 22.8 H Retic Hgb Content 30.8 PT 36.6 H INR 3.6 Sodium 140 Potassium 4.0 Chloride 108 H Carbon Dioxide 27 Anion Gap 5 L BUN 8 L Creatinine 0.70 Estim Creat Clear Calc 149 Estimated GFR > 60 Glucose 100 Calcium 8.7 Magnesium 2.1 Lactate Dehydrogenase 737 H
== END 2020-02-24 18:25 | disposition home or self-care (01) | DRG 662 ==
LOC: ANHED 22:42 → ANH3MEDSUR 23:07
PROVIDERS: Nurse Practitioner; Physician Assistant; Admitting Provider Family Medicine; Emergency Provider Emergency Medicine; PCP Internal Medicine Hematology & Oncology; Visit Provider Physician Assistant
DX: D57.00 Hb-SS disease with crisis, unspecified (principal); F11.90 Opioid use, unspecified, uncomplicated; G89.4 Chronic pain syndrome; Z23 Encounter for immunization; Z79.01 Long term (current) use of anticoagulants; Z86.718 Personal history of other venous thrombosis and embolism; Z86.711 Personal history of pulmonary embolism; Z91.14 Patient's other noncompliance with medication regimen
CPT/HCPCS: 36415; 71046; 80048; 80053; 82728; 83615; 83735; 85025; 85046; 85055; 85610; 85730; 90471; 90653; 96361; 96374; 96375; 96376; 99285; A9270; G0008; G0378; G0379; J0131; J1170; J1200; J7030

== ENCOUNTER 2020-03-23 16:08 | Emergency (ER) | payer OTHER, SELFPAY ==
--- NOTE | ~2020-03-23 | XR_ITS ---
EXAMINATION: XR chest 1V portable INDICATION: Sickle cell crisis, chest pain TECHNIQUE: Portable AP chest at 1842 hours COMPARISON: 02/20/2020 FINDINGS: There is chronic scarring of the lung bases. No acute airspace opacities are identified. Th e cardiomediastinal silhouette is normal. IMPRESSION: 1. No acute cardiopulmonary abnormality. Reviewed, dictated and finalized at location A. ITAL CNA
[2020-03-23 16:23] VITALS: BP 121/75; PULSE 89; RESP 20; TEMP 36.5; O2SAT 96
[2020-03-23] MEDS: HYDROmorphone HCL INJ (*CRX) 1 MG/ML SYR IM ×3 (19:18→23:03)
[2020-03-23 19:24] LABS: INR 2.2
[2020-03-23 19:25] LABS: Partial Thromboplastin Time 32.6 SECONDS (22.3-36.8)
[2020-03-23 19:30] LABS: Add Urine Microscopic? YES; Appearance Urine Clear (Clear); Bilirubin Urine Negative (Negative); Blood Urine Negative (Negative); Color Urine Yellow (Yellow); Glucose Urine UA Negative (Negative); Ketones Urine Negative (Negative); Leukocyte Esterase Ur Negative LEU/UL (Negative); Mucus Urine Rare /lpf; Nitrate Urine Negative (Negative); Protein Urine Negative (Negative); RBC Urine 0-2 /hpf (0-2); Specific Grav Ur 1.014 (1.001-1.035); WBC Urine 0-3 /hpf
[2020-03-23 19:36] LABS: Alanine Aminotransferase 25 U/L (4-50); Albumin Level 4.2 g/dL (3.5-5.1); Alkaline Phosphatase 89 U/L (38-126); Anion Gap 8 mmol/L (8-16); Aspartate Amino Transferase 40 U/L (17-59); Bilirubin,Total 0.9 mg/dL (0.2-1.3); Blood Urea Nitrogen 7 mg/dL (9-20); Calcium 8.6 mg/dL (8.4-10.2); Carbon Dioxide 26 mmol/L (22-30); Chloride 107 mmol/L (98-107); Estimated CRCL calculation 132 ml/min; Estimated Glomerular Filt Rate > 60; Glucose 89 mg/dL (75-110); Lactate Dehydrogenase 690 U/L (313-618); Sodium 141 mmol/L (137-145)
[2020-03-23 19:45] LABS: Amphetamine Screen Urine Negative (Negative); Barbiturate Screen Urine Negative (Negative); Benzodiazepines Screen Urine Negative (Negative); Cannabinoid Screen Urine Negative (Negative); Cocaine Screen Urine Negative (Negative); Methadone Screen Urine Positive (Negative); Opiate Screen Urine Positive (Negative); Phencyclidine Screen Urine Negative (Negative)
[2020-03-23 19:49] LABS: Basophils Absolute Auto 0.1 K/mm3 (0.0-0.1); Basophils Percent Auto 0.6 % (0.2-1.2); Eosinophils Absolute Auto 0.5 K/mm3 (0-0.3); Hemoglobin 10.2 g/dL (14.0-18.0); Immature Granulocyte Absolute 0.03 K/mm3 (0.00-0.031); Immature Granulocyte Percent A 0.2 % (0-0.5); Immature Platelet Fraction Pct 4.7 % (0.9-11.2); Immature Reticulocyte Fraction 32.6 % (3.0-15.9); Lymphocytes Absolute Auto 5.51 K/mm3 (0.9-3.2); Lymphocytes Percent Auto 43.5 % (18.3-44.2); Mean Corpuscular HGB Conc 36.4 g/dl (32-36); Mean Corpuscular Hemoglobin 32.6 pg (26-34); Mean Corpuscular Volume 89.5 fl (80-100); Mean Platelet Volume 10.5 fl (7.4-10.4); Monocytes Absolute Auto 0.9 K/mm3 (0.1-0.6); Monocytes Percent Auto 7.3 % (2.6-8.5); Neutrophils Absolute Auto 5.6 K/mm3 (1.3-6.7); Neutrophils Percent Auto 44.4 % (45.5-73.1); Nucleated Red Blood Cells Perc 0.3 % (0.0-0.2); Platelet Count Result 273 k/mm3 (150-375); Red Blood Count 3.13 M/mm3 (4.6-6.20); Red Cell Distribution Width 14.6 % (11.5-14.5); Reticulocyte Hemoglobin Conten 32.6 pg (28.2-35.7); Reticulocyte Percent 5.31 % (0.7-4.3); Reticulocytes Absolute 0.17 B/L (32.2-175.7); White Blood Count 12.7 K/mm3 (4.5-10.0)
--- NOTE | 2020-03-23 19:55 | PC.NURSE ---
Dr Russo and Primary RN aware that patient is refusing Katamine-- last time it made me feel really weird and trippy
[2020-03-23 20:00] VITALS: BP 134/68; PULSE 78; RESP 18; O2SAT 99
[2020-03-23 20:01] LABS: Ovalocytes 1+ (NORMAL); Platelet Estimate Adequate (Adequate); Sickle Cells 1+ (NORMAL); Target Cells 3+ (NORMAL)
--- NOTE | 2020-03-23 20:36 | ED.GENADULT ---
HPI - General Adult General Chief complaint: Unspecified Stated complaint: sickle cell crisis Time Seen by Provider: 03/23/20 18:48 Source: patient Mode of arrival: ambulatory Limitations: no limitations History of Present Illness HPI narrative: 34-year-old male Familiar patient with a number of visits due to sickle cell related pain Complains of fairly typical proximal leg and low back pains Has been taking his medications No other symptoms of an acute illness, denies fever sore throat cough nausea vomiting diarrhea, he is chronically constipated, no urinary symptoms Related Data Home Medications Medication Instructions Recorded Confirmed folic acid 1 mg PO DAILY 02/16/19 02/21/20 hydroxyurea [Hydrea] 500 mg PO BID 02/16/19 02/21/20 oxycodone-acetaminophen 1 tablet PO Q4H PRN 11/08/19 02/21/20 warfarin 2 mg PO DAILY 11/08/19 02/21/20 methadone 10 mg PO TID 11/09/19 02/21/20 Allergies Allergy/AdvReac Type Severity Reaction Status Date / Time Fish Containing Products Allergy Intermediate Itching Verified 02/21/20 00:09 Review of Systems Review of Systems: All systems reviewed & are unremarkable except as noted in HPI and below Constitutional: Constitutional: Denies chills, Reports fatigue, Denies fever(s), Denies headache(s) and Denies weakness Eyes: Eyes: Reports no additional eye complaints and Denies change in vision ENT: Denies headache(s), Denies epistaxis, Denies nasal congestion and Denies sore throat Cardiovascular: Cardiovascular: Denies chest pain, Denies leg edema and Denies dyspnea Respiratory: Respiratory: Denies cough and Denies dyspnea Gastrointestinal: Gastrointestinal: Reports constipation, Denies diarrhea, Denies nausea and Denies vomiting Musculoskeletal: Musculoskeletal: Reports back pain, Reports myalgias, Denies deformity, Reports arthralgias, Denies joint swelling, Reports muscle cramps, Denies muscle weakness, Denies numbness and Reports stiffness Integumentary/Breasts: Skin/Breast: Denies rash and Denies wounds Neurologic: Denies headache(s), Denies focal weakness, Denies numbness and Denies weakness Psychiatric: Psychiatric: Reports no additional psychiatric complaints PMFSH Past Medical History Medical History Acute chest syndrome Chronic anticoagulation Due to history of DVT and pulmonary embolism. Chronic narcotic use On methadone with oxycodone for chronic pain related to his sickle cell disease. Deep venous thrombosis Noncompliance History of noncompliance with anticoagulation and hydroxyurea. Pulmonary embolism Sickle cell disease, type SC Surgical History Surgical History History of hand surgery Tendon surgery on right 5th finger. Family History Family History (Updated 02/21/20 @ 00:11 by Jaclyn Crowe RN) Grandparent Acute myocardial infarction Diabetes mellitus Sibling Asthma Sibling Asthma Mother Hypertension Son Sickle cell trait Daughter Sickle cell trait Grandparent No problems noted. Other Diabetes mellitus Social History Social History (Updated 02/21/20 @ 00:07 by Alis Rodriguez NP) Social History: The patient lives in [place] with his family. He is on disability due to sickle cell disease and chronic pain. He designates his friend, Keyla Luther, as his surrogate decision maker and he wishes to be a full code. He is a lifelong nonsmoker and denies alcohol and drug use. The patient has 2 children who have the sickle cell trait. Smoking status: Never smoker Alcohol intake: never Substance use: former Substance use type: marijuana Additional occupation/education comments: Gender identity (if verbalized by the patient): Male Spiritual care concerns: No Agree to blood products: Yes Exam Const: General: healthy appearing, comfortable, no acute distress, well developed and aw
[2020-03-23] MEDS: diphenhydrAMINE HCl INJ 50 MG/ML VIAL IV PUSH (20:57)
[2020-03-23] MEDS: LACTATED RINGERS 1,000 ML 999 ML IV CONT (20:57)
[2020-03-23 23:21] VITALS: BP 119/77; PULSE 72; RESP 17; O2SAT 92
[2020-03-24] MEDS: HYDROmorphone HCL INJ (*CRX) 1 MG/ML SYR IM (00:45)
[2020-03-24 00:55] VITALS: BP 124/85; PULSE 71; RESP 16; O2SAT 100
== END 2020-03-24 00:55 | disposition home or self-care (01) ==
PROVIDERS: Physician Assistant; Emergency Provider Emergency Medicine; PCP Internal Medicine Hematology & Oncology
DX: D57.00 Hb-SS disease with crisis, unspecified (principal); Z86.718 Personal history of other venous thrombosis and embolism; Z79.01 Long term (current) use of anticoagulants
CPT/HCPCS: 36415; 71045; 80053; 80307; 81001; 83615; 85025; 85046; 85055; 85610; 85730; 96361; 96372; 96374; 99284; J1170; J1200; J7120

== ENCOUNTER 2020-03-29 11:24 | Inpatient (IN) | payer OTHER, SELFPAY ==
[2020-03-29] VITALS (7 sets, daily range): BP systolic 97–134; BP diastolic 64–73; PULSE 72–95; RESP 16–18; TEMP 36.3–36.4; O2SAT 94–98; BMI 31.6
--- NOTE | ~2020-03-29 | XR_ITS ---
EXAMINATION: XR chest 2V DATE: 03/29/2020 13:22 INDICATION: Chest tightness. TECHNIQUE: Frontal and lateral views of the chest were obtained. COMPARISON: Chest single view 03/23/2020, chest CT 03/20/2019 FINDINGS: There is mild atelectasis at the lung bases. No pleural effusion or pneumothorax. The heart size is normal. IMPRESSION: 1. Mild atelectasis at the lung bases. Reviewed, dictated and finalized at location A. ER ERECTOR
--- NOTE | 2020-03-29 11:36 | ED.GENADULT ---
HPI - General Adult General Chief complaint: Unspecified Stated complaint: sickle cell pain Time Seen by Provider: 03/29/20 11:36 Source: patient Mode of arrival: ambulatory Limitations: no limitations History of Present Illness HPI narrative: The patient reports pain throughout his entire body over the past three days. He is prescribed methadone and oxycodone and has been taking that as prescribed, however it has not alleviated his pain. Patient states he had a headache yesterday that resolved with ibuprofen. He is reporting ribs and back pain. He is reporting a tightness in his chest that began over past two days. No nausea, vomiting, diaphoresis. He denies dyspnea. He is denying focal hip or leg pain. He follows with a Supervisor Harvesting, Dr. Marks, and saw them last week. Related Data Home Medications Medication Instructions Recorded Confirmed folic acid 1 mg PO DAILY 02/16/19 02/21/20 hydroxyurea [Hydrea] 500 mg PO BID 02/16/19 02/21/20 oxycodone-acetaminophen 1 tablet PO Q4H PRN 11/08/19 02/21/20 warfarin 2 mg PO DAILY 11/08/19 02/21/20 methadone 10 mg PO TID 11/09/19 02/21/20 Allergies Allergy/AdvReac Type Severity Reaction Status Date / Time Fish Containing Products Allergy Intermediate Itching Verified 03/29/20 11:35 Review of Systems Review of Systems: Narrative: CONSTITUTIONAL: Denies fever, chills, or sweats. EYES: Denies visual changes, redness, or discharge. ENT: Denies rhinorrhea, congestion, sore throat, or otalgia. CARDIOVASCULAR:Reports chest tightness without central chest pain, palpitations RESPIRATORY: Denies cough or dyspnea. GASTROINTESTINAL: Denies abdominal pain, nausea, vomiting, or diarrhea. GENITOURINARY: Denies dysuria or hematuria. SKIN: Denies rash or itching. MUSCULOSKELETAL: Reports back pain, diffuse joint pain and myalgias NEUROLOGIC: Denies current headache, numbness, or weakness. [facility] Past Medical History Medical History Acute chest syndrome Chronic anticoagulation Due to history of DVT and pulmonary embolism. Chronic narcotic use On methadone with oxycodone for chronic pain related to his sickle cell disease. Deep venous thrombosis Noncompliance History of noncompliance with anticoagulation and hydroxyurea. Pulmonary embolism Sickle cell disease, type SC Surgical History Surgical History History of hand surgery Tendon surgery on right 5th finger. Family History Family History (Updated 02/21/20 @ 00:11 by Jaclyn Crowe RN) Grandparent Acute myocardial infarction Diabetes mellitus Sibling Asthma Sibling Asthma Mother Hypertension Son Sickle cell trait Daughter Sickle cell trait Grandparent No problems noted. Other Diabetes mellitus Social History Social History Social History: The patient lives in [place] with his family. He is on disability due to sickle cell disease and chronic pain. He designates his friend, Keyla Ltuher, as his surrogate decision maker and he wishes to be a full code. He is a lifelong nonsmoker and denies alcohol and drug use. The patient has 2 children who have the sickle cell trait. Smoking status: Never smoker Alcohol intake: never Substance use: former Substance use type: marijuana Additional occupation/education comments: Gender identity (if verbalized by the patient): Male Spiritual care concerns: No Agree to blood products: Yes Exam Narrative: Exam Narrative: GENERAL: Awake, alert, conversant HEAD: Normocephalic, atraumatic. EYES: PERRLA and EOMI. ENT: Nares clear, no rhinorrhea or epistaxis. Mucous membranes moist. NECK: Supple. CHEST: No respiratory distress, breathing even and non labored, lungs clear to auscultation bilaterally HEART: Regular rate, sinus rhythm ABDOMEN:Non distended, non tender EXTREMITIES: N
--- NOTE | 2020-03-29 11:53 | ECG_ITS ---
Measurements Intervals [place] Rate: 78 P: 28 OR: 176 QRS: 20 QRSD: 101 T: -4 QT: 393 QTc: 449 Interpretive Statements SINUS RHYTHM BORDERLINE ST-T WAVE ABNORMALITY- ANT/INF LEADS BASELINE ARTIFACT- I, II, III, AVR, AVL, AVF, V3-V6 BORDERLINE ECG Electronically Signed On 03-29-2020 13:24:20 SURFACE HYDROLOGIST by Ricky Modi D.O.
[2020-03-29 12:08] LABS: Basophils Absolute Auto 0.1 K/mm3 (0.0-0.1); Basophils Percent Auto 0.7 % (0.2-1.2); Eosinophils Absolute Auto 0.4 K/mm3 (0-0.3); Eosinophils Percent Auto 3.2 % (0-4.4); Hematocrit 27.2 % (42.0-52.0); Hemoglobin 9.9 g/dL (14.0-18.0); Immature Granulocyte Absolute 0.04 K/mm3 (0.00-0.031); Immature Granulocyte Percent A 0.4 % (0-0.5); Immature Platelet Fraction Pct 4.7 % (0.9-11.2); Lymphocytes Absolute Auto 4.31 K/mm3 (0.9-3.2); Lymphocytes Percent Auto 39.5 % (18.3-44.2); Mean Corpuscular HGB Conc 36.4 g/dl (32-36); Mean Corpuscular Hemoglobin 32.2 pg (26-34); Mean Corpuscular Volume 88.6 fl (80-100); Mean Platelet Volume 11.1 fl (7.4-10.4); Monocytes Absolute Auto 0.9 K/mm3 (0.1-0.6); Monocytes Percent Auto 8.3 % (2.6-8.5); Neutrophils Absolute Auto 5.2 K/mm3 (1.3-6.7); Neutrophils Percent Auto 47.9 % (45.5-73.1); Nucleated Red Blood Cells Perc 0.4 % (0.0-0.2); Platelet Count Result 288 k/mm3 (150-375); Red Blood Count 3.07 M/mm3 (4.6-6.20); Red Cell Distribution Width 14.4 % (11.5-14.5); Reticulocyte Hemoglobin Conten 31.8 pg (28.2-35.7); Reticulocyte Percent 4.57 % (0.7-4.3); Reticulocytes Absolute 0.14 B/L (32.2-175.7); White Blood Count 10.9 K/mm3 (4.5-10.0)
[2020-03-29] MEDS: ONDANSETRON INJ 4 MG/2 ML VIAL IV PUSH (12:10)
[2020-03-29] MEDS: HYDROmorphone HCL INJ (*CRX) 1 MG/ML SYR 2 MG IV PUSH ×4 (12:10→16:31)
[2020-03-29] MEDS: SODIUM CHLORIDE 0.9% IV 1,000 ML 999 ML IV CONT ×2 (12:10→16:29)
[2020-03-29 12:18] LABS: Partial Thromboplastin Time 29.6 SECONDS (22.3-36.8)
[2020-03-29 12:27] LABS: Eosinophils Absolute Manual 0.54 K/mm3 (0.02-0.5); Eosinophils Percent Manual 5 % (0-4); Lymphocytes Absolute Manual 3.05 K/mm3 (1.1-4.5); Monocytes Absolute Manual 0.43 K/mm3 (0.1-0.90); Monocytes Percent Manual 4 % (3-9); Neutrophils Percent Manual 63 % (46-73); Platelet Estimate Adequate (Adequate); Total Cells Counted 100
[2020-03-29 12:28] LABS: Anisocytosis 1+ (NORMAL); Ovalocytes 1+ (NORMAL); Target Cells 2+ (NORMAL)
[2020-03-29 12:29] LABS: Schistocytes 1+ (NORMAL); Stomatocytes 1+ (NORMAL)
[2020-03-29 12:44] LABS: Alanine Aminotransferase 30 U/L (4-50); Albumin Level 3.9 g/dL (3.5-5.1); Alkaline Phosphatase 87 U/L (38-126); Anion Gap 5 mmol/L (8-16); Aspartate Amino Transferase 41 U/L (17-59); Bilirubin,Total 0.8 mg/dL (0.2-1.3); Blood Urea Nitrogen 6 mg/dL (9-20); Calcium 8.4 mg/dL (8.4-10.2); Carbon Dioxide 27 mmol/L (22-30); Chloride 108 mmol/L (98-107); Estimated CRCL calculation 130 ml/min; Estimated Glomerular Filt Rate > 60; Glucose 108 mg/dL (75-110); Potassium 3.6 mmol/L (3.4-5.0); Sodium 140 mmol/L (137-145)
[2020-03-29 12:51] LABS: Troponin I < 0.012 ng/mL (0.000-0.034)
[2020-03-29 14:46] LABS: Add Urine Microscopic? NO; Appearance Urine Clear (Clear); Bilirubin Urine Negative (Negative); Blood Urine Negative (Negative); Color Urine Yellow (Yellow); Glucose Urine UA Negative (Negative); Ketones Urine Negative (Negative); Leukocyte Esterase Ur Negative LEU/UL (Negative); Nitrate Urine Negative (Negative); Protein Urine Negative (Negative); Specific Grav Ur 1.016 (1.001-1.035); Urobilinogen Urine Negative mg/dL (<2.0)
[2020-03-29 15:36] LABS: Lactate Dehydrogenase 639 U/L (313-618)
[2020-03-29] MEDS: KETOROLAC 15 MG/ML VIAL (*BKC) IV PUSH (16:31)
--- NOTE | 2020-03-29 22:45 | PM.IMHP ---
H&P: HPI History of Present Illness Date/Time: 03/29/20 22:45 Cheif Complaint: Sickle cell pain. Narrative: Quan Downing is a 35-year-old male with sickle cell disease SC, chronic pain syndrome, and history of pulmonary embolism on warfarin who presented to the emergency department earlier today for evaluation of acute on chronic pain related to his sickle cell disease. Over the last week or so he notes acute on chronic pain related to his disease, mainly in the low back and proximal legs. He has oxycodone for breakthrough pain however it has not given him any significant relief. In fact he was seen in the emergency department on 03/23/2020 for worsening pain. With hydration and IV Dilaudid he felt better and was able to be discharged home. Unfortunately his pain has worsened again over the past 2 days, which he attributes to the change in weather as the cold really causes his pain to act up. In addition to the leg and back pain, he is now having tightness in his chest. Despite multiple doses of IV Dilaudid given in the emergency department (a total of 8 mg), his pain continues to be on controlled and he is being admitted in this setting. He denies fever, chills, sweats, cold and flu symptoms, shortness of breath, cough, nausea, and vomiting. Review of Systems Review of Systems: Narrative: Twelve systems were reviewed with pertinent positives and negatives as per HPI. Except as documented, all other systems were reviewed and are negative. [facility] Past Medical History Medical History Acute chest syndrome Chronic anticoagulation Due to history of DVT and pulmonary embolism. Chronic narcotic use On methadone with oxycodone for chronic pain related to his sickle cell disease. Deep venous thrombosis Noncompliance History of noncompliance with anticoagulation and hydroxyurea. Pulmonary embolism Sickle cell disease, type SC Surgical History Surgical History History of hand surgery Tendon surgery on right 5th finger. Family History Family History Grandparent Acute myocardial infarction Diabetes mellitus Sibling Asthma Sibling Asthma Mother Hypertension Son Sickle cell trait Daughter Sickle cell trait Grandparent No problems noted. Other Diabetes mellitus Social History Social History Social History: The patient lives in [place] with his family. He is on disability due to sickle cell disease and chronic pain. He designates his friend, Keyla Luther, as his surrogate decision maker and he wishes to be a full code. He is a lifelong nonsmoker and denies alcohol and drug use. The patient has 2 children who have the sickle cell trait. Smoking status: Never smoker Alcohol intake: never Substance use: former Substance use type: marijuana Additional occupation/education comments: Gender identity (if verbalized by the patient): Male Spiritual care concerns: No Agree to blood products: Yes Meds Home Medications and Allergies Home Medications Medication Instructions Recorded Confirmed Type folic acid 1 mg PO DAILY 02/16/19 03/29/20 History hydroxyurea [Hydrea] 500 mg PO BID 02/16/19 03/29/20 History warfarin [Coumadin] 10 mg PO DAILY@1700 #30 tablet 09/05/19 03/29/20 Rx oxycodone-acetaminophen 1 tablet PO Q4H PRN 11/08/19 03/29/20 History warfarin 2 mg PO DAILY 11/08/19 03/29/20 History methadone 10 mg PO TID 11/09/19 03/29/20 History polyethylene glycol 3350 [Miralax] 17 g PO QAM PRN #14 ea 02/24/20 03/29/20 Rx Allergies Allergy/AdvReac Type Severity Reaction Status Date / Time Fish Containing Products Allergy Intermediate Itching Verified 03/29/20 18:41 Vital Signs Vital Signs - 24 hr 03/29/20 11:32 03/29/20 16:00 03/29/20 17:00 Te
[2020-03-29] MEDS: HYDROmorphone HCL INJ (*CRX) 1 MG/ML SYR IV PUSH (23:30)
[2020-03-29] MEDS: LACTATED RINGERS 1,000 ML 100 ML IV CONT (23:41)
[2020-03-30] MEDS: HYDROmorphone HCL INJ (*CRX) 1 MG/ML SYR IV PUSH ×5 (01:39→11:11)
[2020-03-30 06:00] VITALS: BP 126/75; PULSE 86; RESP 16; TEMP 37.1; O2SAT 96
[2020-03-30 06:00] LABS: Hematocrit 27.3 % (42.0-52.0); Hemoglobin 9.8 g/dL (14.0-18.0); Mean Corpuscular HGB Conc 35.9 g/dl (32-36); Mean Corpuscular Volume 89.2 fl (80-100); Mean Platelet Volume 10.3 fl (7.4-10.4); Platelet Count Result 323 k/mm3 (150-375); Red Blood Count 3.06 M/mm3 (4.6-6.20); Red Cell Distribution Width 14.5 % (11.5-14.5); White Blood Count 14.5 K/mm3 (4.5-10.0)
[2020-03-30 06:09] LABS: INR 1.6; Prothrombin Time 19.8 Seconds (11.1-14.7)
[2020-03-30 06:18] LABS: Lactate Dehydrogenase 665 U/L (313-618)
[2020-03-30] MEDS: LACTATED RINGERS 1,000 ML 100 ML IV CONT ×2 (09:10→20:12)
[2020-03-30] MEDS: FOLIC ACID 1 MG TABLET PO (10:33)
[2020-03-30] MEDS: HYDROXYUREA (*CHEMO) 500 MG CAPSULE PO ×2 (10:33→17:03)
[2020-03-30] MEDS: HYDROmorphone HCL INJ (*CRX) 1 MG/ML SYR 2 MG IV PUSH ×4 (14:14→23:13)
--- NOTE | 2020-03-30 14:39 | PM.IMPN ---
Progress Note: A&P Assessment and Plan (1) Sickle-cell disease with pain: Code(s): D57.00 - Hb-SS disease with crisis, unspecified Status: Acute Assessment and Plan: Reports cold weather precipitated his pain and his home pain regimen was not providing relief. Pain management per Dr Marks's recommendations; appreciate input. Continue supportive care with IV hydration, supplemental O2 as needed. Continue folic acid and hydroxyurea. (2) Sickle cell disease, type SC: Qualifiers: Sickle-cell associated disorders: without crisis Qualified Code(s): D57.20 - Sickle-cell/Hb-C disease without crisis Code(s): D57.20 - Sickle-cell/Hb-C disease without crisis Status: Chronic Assessment and Plan: See above, follows with Dr Marks. 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 INR 1.6, monitor INR daily. (4) Chronic pain syndrome: Code(s): G89.4 - Chronic pain syndrome Status: Chronic Assessment and Plan: See above. Frequent hospital admissions around once per month for pain control. Subjective Date/time seen: 03/30/20 1345 Interval history: Mr. Downing is a 35yo M admitted for sickle cell pain crisis. He reports pain is worst to his VERO ribs and right shoulder this afternoon. He reports some chest tightness with deep breaths. He denies cough or shortness of breath. His appetite is poor. Denies nausea, vomiting, or abdominal pain. Review of Systems Review of Systems: All systems reviewed & are unremarkable except as noted in HPI and below Exam Narrative: Exam Narrative: General: Male resting supine in bed no acute distress. HEENT: Normocephalic, EOMI, oral mucosa moist. Cardiovascular: Rate and rhythm are regular. Respiratory: Lungs clear to auscultation bilaterally. Respirations even and non-labored. Abdomen: Soft, non-tender, non-distended, bowel sounds present. Extremities: Peripheral pulses intact. No edema. Neuro: No focal neurological deficits. Speech is clear. Objective Data Vital Signs Vital Signs: Last Vital Signs Temp 97.5 F L 03/30/20 14:40 Pulse 81 03/30/20 14:40 Resp 16 03/30/20 14:40 BP 124/73 03/30/20 14:40 Pulse Ox 97 03/30/20 14:40 Intake/Output Intake/Output: Intake & Output 03/27/20 03/28/20 03/29/20 03/30/20 23:59 23:59 23:59 23:59 Intake Total 2220 1340 Output Total 750 1800 Balance 1470 -460 Meds/Results Medications: Active Medications Generic Name Dose Route Start Last Admin Trade Name Freq PRN Reason Stop Dose Admin Folic Acid 1 mg 03/30/20 09:00 03/30/20 10:33 Folic Acid 1 Mg Tablet PO 1 mg DAILY CHRISTOPHER Administration Hydromorphone HCl 2 mg 03/30/20 11:26 03/30/20 14:14 Hydromorphone Hcl Inj (*Crx) 1 Mg/Ml Syr IV PUSH 2 mg Q3H PRN Administration Pain Rated 7-10 Hydroxyurea 500 mg 03/30/20 09:00 03/30/20 10:33 Hydroxyurea (*Chemo) 500 Mg Capsule PO 500 mg BID CHRISTOPHER Administration Lactated Ringer's 1,000 mls @ 100 mls/hr 03/29/20 23:25 03/30/20 09:10 Lr - Lactated Ringers Iv IV CONT 100 mls/hr .Q10H CHRISTOPHER Administration Ondansetron HCl 4 mg 03/30/20 08:09 Ondansetron Inj 4 Mg/2 Ml Vial IV PUSH Q6H PRN Nausea And Vomiting Oxycodone HCl 5 mg 03/30/20 09:13 Oxycodone Hcl (*Crx) 5 Mg Tab Ir PO 04/29/20 09:14 Q4H PRN Pain Rated 4-6 Oxycodone/Acetaminophen 1 tablet 03/30/20 08:09 Oxycodone/Acetaminophen (*Crx) 5-325 Mg Tablet PO Q4H PRN Pain Rated 4-6 Polyethylene Glycol 17 gm 03/30/20 08:09 Polyethylene Glycol 3350 17 Gm Powd.Pack
[2020-03-30 14:40] VITALS: BP 124/73; PULSE 81; RESP 16; TEMP 36.4; O2SAT 97
[2020-03-30] MEDS: WARFARIN (*PBKC) 2 MG TABLET PO (17:03)
[2020-03-30] MEDS: WARFARIN (*PBKC) 10 MG TABLET PO (17:03)
--- NOTE | 2020-03-30 17:07 | PDONCCN ---
HPI - Date of Consult Date/Time: 03/30/20 17:07 Requesting Physician: SHILO White Primary Care Provider: Jone Marks MD - Consult Narrative Reason for consult: Sickle cell crisis Narrative: Quan Downing is a 35 year old male with history of sickle cell SC disease and recurrent pulmonary embolism. Patient has been taking hydroxyurea 500 mg twice a day along with folic acid at home. He also takes Coumadin and methadone 10 mg 3 times a day and oxycodone 5 mg as needed for his pain control. Unfortunately his pain is not under good control for last several months and comes to the hospital with sickle cell flare up quite regularly on every 4-6 weeks basis. He informed me that he was outside in the cold weather frequently due to birthday parties recently and got sick. He denies any fevers and chills but has been complaining of chest and bilateral ribcage pain. He cleaned that he has been compliant with his medication. He informed me that his pain medication with now working at home. He is still complaining of pain involving the ribcage and the chest area. Denies any bleeding and bruising. No other new complaints. Review of Systems - Review of Systems All systems reviewed & are unremarkable except as noted in HPI and [facility] Medical History: Medical History (Last Reviewed 03/29/20 @ 23:15 by Kimberlee Santamaria PA-C) Acute chest syndrome Chronic anticoagulation Due to history of DVT and pulmonary embolism. Chronic narcotic use On methadone with oxycodone for chronic pain related to his sickle cell disease. Deep venous thrombosis Noncompliance History of noncompliance with anticoagulation and hydroxyurea. Pulmonary embolism Sickle cell disease, type SC Surgical History: Surgical History (Last Reviewed 03/29/20 @ 23:15 by Kimberlee Santamaria PA-C) History of hand surgery Tendon surgery on right 5th finger. Family History: Family History (Last Reviewed 03/29/20 @ 23:15 by Kimberlee Santamaria PA-C) Grandparent Acute myocardial infarction Diabetes mellitus Sibling Asthma Sibling Asthma Mother Hypertension Son Sickle cell trait Daughter Sickle cell trait Grandparent No problems noted. Other Diabetes mellitus - Social History Social History: Social History (Last Reviewed 03/29/20 @ 23:15 by Kimberlee Santamaria PA-C) Gender Identity: Gender identity (if verbalized by the patient): Male Alcohol Use: Alcohol intake: never Substance Use: Substance use: former Substance use type: marijuana Others: Spiritual care concerns: No Agree to blood products: Yes Smoking Status: Smoking status: Never smoker Meds Home Medications Medication Instructions Recorded Confirmed Type folic acid 1 mg PO DAILY 02/16/19 03/29/20 History hydroxyurea [Hydrea] 500 mg PO BID 02/16/19 03/29/20 History warfarin [Coumadin] 10 mg PO DAILY@1700 #30 tablet 09/05/19 03/29/20 Rx oxycodone-acetaminophen 1 tablet PO Q4H PRN 11/08/19 03/29/20 History warfarin 2 mg PO DAILY 11/08/19 03/29/20 History methadone 10 mg PO TID 11/09/19 03/29/20 History polyethylene glycol 3350 [Miralax] 17 g PO QAM PRN #14 ea 02/24/20 03/29/20 Rx Allergies Allergy/AdvReac Type Severity Reaction Status Date / Time Fish Containing Products Allergy Intermediate Itching Verified 03/29/20 18:41 Results - Labs CBC & Chem 7: 03/30/20 05:41 03/29/20 12:21 Labs: Short CBC 03/30/20 Range/Units 05:41 WBC 14.5 H (4.5-10.0) K/mm3 Hgb 9.8 L (14.0-18.0) g/dL Hct 27.3 L (42.0-52.0) % Plt Count 323 (150-375) k/mm3 Assessment and Plan - Additional Plan 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 Patient got admitted to the hospital with sickle cell crisis episode. According to patient he has been compliant with his hydroxyurea and folic acid. His home pain medication was not helping him. He was exposed to cold weather w
[2020-03-30] MEDS: oxyCODONE HCL (*CRX) 5 MG TAB IR PO ×2 (18:46→22:43)
[2020-03-30] MEDS: oxyCODONE/ACETAMINOPHEN (*CRX) 5-325 MG TABLET 1 TABLET PO ×2 (18:46→22:43)
[2020-03-30 20:09] VITALS: BP 115/70; PULSE 85; RESP 18; TEMP 36.4; O2SAT 100
[2020-03-31] MEDS: HYDROmorphone HCL INJ (*CRX) 1 MG/ML SYR 2 MG IV PUSH ×5 (02:21→15:41)
[2020-03-31 05:22] LABS: Basophils Percent Auto 0.2 % (0.2-1.2); Eosinophils Absolute Auto 0.2 K/mm3 (0-0.3); Eosinophils Percent Auto 1.8 % (0-4.4); Immature Granulocyte Absolute 0.04 K/mm3 (0.00-0.031); Immature Granulocyte Percent A 0.3 % (0-0.5); Immature Reticulocyte Fraction 28.8 % (3.0-15.9); Lymphocytes Percent Auto 33.3 % (18.3-44.2); Mean Corpuscular HGB Conc 35.7 g/dl (32-36); Mean Corpuscular Hemoglobin 31.8 pg (26-34); Mean Corpuscular Volume 89.2 fl (80-100); Mean Platelet Volume 9.9 fl (7.4-10.4); Monocytes Absolute Auto 1.1 K/mm3 (0.1-0.6); Monocytes Percent Auto 8.9 % (2.6-8.5); Neutrophils Percent Auto 55.5 % (45.5-73.1); Nucleated Red Blood Cells Perc 0.3 % (0.0-0.2); Platelet Count Result 332 k/mm3 (150-375); Red Blood Count 3.14 M/mm3 (4.6-6.20); Red Cell Distribution Width 14.5 % (11.5-14.5); Reticulocyte Hemoglobin Conten 33.1 pg (28.2-35.7); Reticulocyte Percent 5.02 % (0.7-4.3); Reticulocytes Absolute 0.16 B/L (32.2-175.7); White Blood Count 12.6 K/mm3 (4.5-10.0)
[2020-03-31 05:38] LABS: INR 1.5; Prothrombin Time 18.5 Seconds (11.1-14.7)
[2020-03-31 05:39] VITALS: BP 125/86; PULSE 83; RESP 18; TEMP 36.4; O2SAT 99
[2020-03-31] MEDS: LACTATED RINGERS 1,000 ML 100 ML IV CONT ×2 (05:49→17:02)
[2020-03-31 05:58] LABS: Anion Gap 7 mmol/L (8-16); Blood Urea Nitrogen 5 mg/dL (9-20); Calcium 8.7 mg/dL (8.4-10.2); Carbon Dioxide 29 mmol/L (22-30); Chloride 104 mmol/L (98-107); Estimated CRCL calculation 170 ml/min; Estimated Glomerular Filt Rate > 60; Glucose 117 mg/dL (75-110); Magnesium 2.2 mg/dL (1.6-2.3); Potassium 3.5 mmol/L (3.4-5.0); Sodium 140 mmol/L (137-145)
[2020-03-31 08:53] LABS: Platelet Estimate Adequate (Adequate); Poikilocytosis 1+ (NORMAL)
[2020-03-31 08:54] LABS: Sickle Cells 2+ (NORMAL); Stomatocytes 1+ (NORMAL); Target Cells 2+ (NORMAL)
[2020-03-31] MEDS: FOLIC ACID 1 MG TABLET PO (09:04)
[2020-03-31] MEDS: HYDROXYUREA (*CHEMO) 500 MG CAPSULE PO ×2 (09:04→16:54)
--- NOTE | 2020-03-31 12:54 | PM.IMPN ---
Progress Note: A&P Assessment and Plan (1) Sickle-cell disease with pain: Code(s): D57.00 - Hb-SS disease with crisis, unspecified Status: Acute Assessment and Plan: Reports cold weather precipitated his pain and his home pain regimen was not providing relief. Pain management per Dr Marks's recommendations; appreciate input. Continue supportive care with IV hydration, supplemental O2 as needed. Continue folic acid and hydroxyurea. (2) Sickle cell disease, type SC: Qualifiers: Sickle-cell associated disorders: without crisis Qualified Code(s): D57.20 - Sickle-cell/Hb-C disease without crisis Code(s): D57.20 - Sickle-cell/Hb-C disease without crisis Status: Chronic Assessment and Plan: See above, follows with Dr Marks. 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 INR 1.5, monitor INR daily. Has admitted in the past to noncompliance with this but he reports he has not missed any doses recently. (4) Chronic pain syndrome: Code(s): G89.4 - Chronic pain syndrome Status: Chronic Assessment and Plan: See above. Frequent hospital admissions around once per month for pain control. Subjective Date/time seen: 03/31/20 1145 Interval history: Mr. Downing is a 35yo M admitted for sickle cell pain crisis. He reports his pain is about the same as yesterday mostly to back, VERO ribs and up to right shoulder. Chest discomfort with deep breaths is improved today per patient. No shortness of breath. Denies nausea, vomiting or abdominal pain. Review of Systems Review of Systems: All systems reviewed & are unremarkable except as noted in HPI and below Exam Narrative: Exam Narrative: General: Male resting supine in bed no acute distress. HEENT: Normocephalic, EOMI, oral mucosa moist. Cardiovascular: Rate and rhythm are regular. Respiratory: Lungs clear to auscultation bilaterally. Respirations even and non-labored. Abdomen: Soft, non-tender, non-distended, bowel sounds present. Extremities: Peripheral pulses intact. No edema. Neuro: No focal neurological deficits. Speech is clear. Objective Data Vital Signs Vital Signs: Last Vital Signs Temp 97.6 F 03/31/20 05:39 Pulse 83 03/31/20 05:39 Resp 18 03/31/20 05:39 BP 125/86 03/31/20 05:39 Pulse Ox 99 03/31/20 05:39 Intake/Output Intake/Output: Intake & Output 03/28/20 03/29/20 03/30/20 03/31/20 23:59 23:59 23:59 23:59 Intake Total 2220 2820 1350 Output Total 750 3850 650 Balance 1470 -1030 700 Meds/Results Medications: Active Medications Generic Name Dose Route Start Last Admin Trade Name Freq PRN Reason Stop Dose Admin Folic Acid 1 mg 03/30/20 09:00 03/31/20 09:04 Folic Acid 1 Mg Tablet PO 1 mg DAILY CHRISTOPHER Administration Hydromorphone HCl 2 mg 03/30/20 11:26 03/31/20 12:18 Hydromorphone Hcl Inj (*Crx) 1 Mg/Ml Syr IV PUSH 2 mg Q3H PRN Administration Pain Rated 7-10 Hydroxyurea 500 mg 03/30/20 09:00 03/31/20 09:04 Hydroxyurea (*Chemo) 500 Mg Capsule PO 500 mg BID CHRISTOPHER Administration Lactated Ringer's 1,000 mls @ 100 mls/hr 03/29/20 23:25 03/31/20 05:49 Lr - Lactated Ringers Iv IV CONT 100 mls/hr .Q10H CHRISTOPHER Administration Ondansetron HCl 4 mg 03/30/20 08:09 Ondansetron Inj 4 Mg/2 Ml Vial IV PUSH Q6H PRN Nausea And Vomiting Oxycodone HCl 5 mg 03/30/20 09:13 03/30/20 22:43 Oxycodone Hcl (*Crx) 5 Mg Tab Ir PO 04/29/20 09:14 5 mg Q4H PRN Administration Pain Rated 4-6 Oxycodone/Acetaminophen 1 tablet 03/30/20 08:09 03/30/20 22:43 Oxycodon
[2020-03-31 14:00] VITALS: BP 133/74; PULSE 90; RESP 16; TEMP 36.3; O2SAT 97
[2020-03-31] MEDS: ACETAMINOPHEN 325 MG TABLET 650 MG PO (15:38)
[2020-03-31] MEDS: WARFARIN (*PBKC) 10 MG TABLET PO (16:54)
[2020-03-31] MEDS: WARFARIN (*PBKC) 2 MG TABLET PO (16:54)
[2020-03-31] MEDS: oxyCODONE/ACETAMINOPHEN (*CRX) 5-325 MG TABLET 1 TABLET PO (17:01)
[2020-03-31] MEDS: oxyCODONE HCL (*CRX) 5 MG TAB IR PO (17:02)
[2020-03-31] MEDS: HYDROmorphone HCL INJ (*CRX) 2 MG/ML VIAL 3 MG IV PUSH ×2 (18:59→21:57)
[2020-03-31 20:15] VITALS: BP 129/70; PULSE 92; RESP 14; TEMP 36.4; O2SAT 98
[2020-04-01] MEDS: HYDROmorphone HCL INJ (*CRX) 2 MG/ML VIAL 3 MG IV PUSH ×7 (00:52→20:03)
[2020-04-01] MEDS: LACTATED RINGERS 1,000 ML 100 ML IV CONT (03:59)
[2020-04-01 05:48] LABS: Basophils Absolute Auto 0.1 K/mm3 (0.0-0.1); Basophils Percent Auto 0.9 % (0.2-1.2); Eosinophils Absolute Auto 0.4 K/mm3 (0-0.3); Hematocrit 26.1 % (42.0-52.0); Hemoglobin 9.4 g/dL (14.0-18.0); Immature Granulocyte Absolute 0.01 K/mm3 (0.00-0.031); Immature Granulocyte Percent A 0.1 % (0-0.5); Immature Reticulocyte Fraction 26.9 % (3.0-15.9); Lymphocytes Absolute Auto 4.29 K/mm3 (0.9-3.2); Lymphocytes Percent Auto 44.7 % (18.3-44.2); Mean Corpuscular Hemoglobin 31.4 pg (26-34); Mean Corpuscular Volume 87.3 fl (80-100); Mean Platelet Volume 9.9 fl (7.4-10.4); Monocytes Absolute Auto 0.7 K/mm3 (0.1-0.6); Monocytes Percent Auto 7.6 % (2.6-8.5); Neutrophils Absolute Auto 4.1 K/mm3 (1.3-6.7); Neutrophils Percent Auto 42.7 % (45.5-73.1); Nucleated Red Blood Cells Perc 0.3 % (0.0-0.2); Platelet Count Result 349 k/mm3 (150-375); Red Blood Count 2.99 M/mm3 (4.6-6.20); Red Cell Distribution Width 14.2 % (11.5-14.5); Reticulocyte Hemoglobin Conten 32.2 pg (28.2-35.7); Reticulocyte Percent 5.28 % (0.7-4.3); Reticulocytes Absolute 0.16 B/L (32.2-175.7); White Blood Count 9.6 K/mm3 (4.5-10.0)
[2020-04-01 05:56] LABS: INR 2.1; Prothrombin Time 24.3 Seconds (11.1-14.7)
[2020-04-01 06:00] VITALS: BP 136/61; PULSE 66; RESP 14; TEMP 36.2; O2SAT 94
[2020-04-01 06:02] LABS: Anion Gap 5 mmol/L (8-16); Blood Urea Nitrogen 6 mg/dL (9-20); Calcium 8.5 mg/dL (8.4-10.2); Carbon Dioxide 29 mmol/L (22-30); Chloride 105 mmol/L (98-107); Estimated CRCL calculation 170 ml/min; Estimated Glomerular Filt Rate > 60; Glucose 107 mg/dL (75-110); Magnesium 2.1 mg/dL (1.6-2.3); Potassium 3.6 mmol/L (3.4-5.0); Sodium 139 mmol/L (137-145)
[2020-04-01] MEDS: HYDROXYUREA (*CHEMO) 500 MG CAPSULE PO ×2 (08:30→17:07)
[2020-04-01] MEDS: FOLIC ACID 1 MG TABLET PO (08:30)
[2020-04-01 13:58] VITALS: BP 134/70; PULSE 95; RESP 16; TEMP 35.9; O2SAT 100
--- NOTE | 2020-04-01 14:00 | PM.IMPN ---
Progress Note: A&P Assessment and Plan (1) Sickle-cell disease with pain: Code(s): D57.00 - Hb-SS disease with crisis, unspecified Status: Acute Assessment and Plan: Reports cold weather precipitated his pain and his home pain regimen was not providing relief. Pain management per Dr Marks's recommendations; appreciate input. Continue supportive care with IV hydration, supplemental O2 as needed. Continue folic acid and hydroxyurea. (2) Sickle cell disease, type SC: Qualifiers: Sickle-cell associated disorders: without crisis Qualified Code(s): D57.20 - Sickle-cell/Hb-C disease without crisis Code(s): D57.20 - Sickle-cell/Hb-C disease without crisis Status: Chronic Assessment and Plan: See above, follows with Dr Marks. 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 INR 2.1, monitor INR daily. Has admitted in the past to noncompliance with this but he reports he has not missed any doses recently. (4) Chronic pain syndrome: Code(s): G89.4 - Chronic pain syndrome Status: Chronic Assessment and Plan: See above. Frequent hospital admissions around once per month for pain control. Subjective Date/time seen: 04/01/20 1200 Interval history: Mr. Downing is a 35yo M admitted for sickle cell pain crisis. He reports his pain is a little improved today; rates mid-back pain 8/10 at time of my exam. No shortness of breath. Chest tightness is improved. Tolerating a bit of oral intake without nausea, vomiting or abdominal pain. Review of Systems Review of Systems: All systems reviewed & are unremarkable except as noted in HPI and below Exam Narrative: Exam Narrative: General: Male resting supine in bed no acute distress. HEENT: Normocephalic, EOMI, oral mucosa moist. Cardiovascular: Rate and rhythm are regular. Respiratory: Lungs clear to auscultation bilaterally. Respirations even and non-labored. Abdomen: Soft, non-tender, non-distended, bowel sounds present. Extremities: Peripheral pulses intact. No edema. Neuro: No focal neurological deficits. Speech is clear. Objective Data Vital Signs Vital Signs: Last Vital Signs Temp 96.7 F L 04/01/20 13:58 Pulse 95 04/01/20 13:58 Resp 16 04/01/20 13:58 BP 134/70 04/01/20 13:58 Pulse Ox 100 04/01/20 13:58 Intake/Output Intake/Output: Intake & Output 03/29/20 03/30/20 03/31/20 04/01/20 23:59 23:59 23:59 23:59 Intake Total 2220 2820 2830 3120 Output Total 750 3850 1850 2950 Balance 1470 -1030 980 170 Meds/Results Medications: Active Medications Generic Name Dose Route Start Last Admin Trade Name Freq PRN Reason Stop Dose Admin Acetaminophen 650 mg 03/31/20 14:48 03/31/20 15:38 Acetaminophen 325 Mg Tablet PO 650 mg Q4H PRN Administration Headache Folic Acid 1 mg 03/30/20 09:00 04/01/20 08:30 Folic Acid 1 Mg Tablet PO 1 mg DAILY CHRISTOPHER Administration Hydromorphone HCl 3 mg 03/31/20 18:21 04/01/20 10:21 Hydromorphone Hcl Inj (*Crx) 2 Mg/Ml Vial IV PUSH 3 mg Q3H PRN Administration Pain Rated 7-10 Hydroxyurea 500 mg 03/30/20 09:00 04/01/20 08:30 Hydroxyurea (*Chemo) 500 Mg Capsule PO 500 mg BID CHRISTOPHER Administration Lactated Ringer's 1,000 mls @ 75 mls/hr 03/29/20 23:25 04/01/20 08:29 Lr - Lactated Ringers Iv IV CONT 75 mls/hr .[id number] CHRISTOPHER Infusion Ondansetron HCl 4 mg 03/30/20 08:09 Ondansetron Inj 4 Mg/2 Ml Vial IV PUSH Q6H PRN Nausea And Vomiting Oxycodone HCl 5 mg 03/30/20 09:13 03/31/20 17:02 Oxycodone Hcl (*Crx) 5 Mg Tab Ir PO 04/29/20
--- NOTE | 2020-04-01 15:56 | P.PNONC_ITS ---
Progress Note: A/P - Additional Plan Sickle cell crisis. Left noted. Hemoglobin slightly lower secondary to IV hydration. Reticulocyte count remains slightly elevated. Clinically he is feeling better with improvement in the pain control. Dilaudid dose was increased to 3 mg every 3 hours. Hopefully patient will be ready to go home tomorrow on home pain medications. He will also continue hydroxyurea along with folic acid. Recurrent pulmonary embolism. Patient will continue warfarin as ordered previously. - Time Spent With Patient Total time spent is greater than 50% in coordination of care (as documented) at patient's floor/unit and/or counseling patient: 15 - 25 minutes Subjective Interval history: Sickle cell crisis Recurrent pulmonary embolism Review of Systems - Review of Systems Today patient is feeling better and pain is under better control. He denies any fevers and chills. Denies any cough. He has been eating well. Exam Vital signs: Temp Pulse Resp BP Pulse Ox 35.9 C L 95 16 134/70 100 04/01/20 13:58 04/01/20 13:58 04/01/20 13:58 04/01/20 13:58 04/01/20 13:58 Narrative: Lungs are clear to auscultation bilaterally Cardiovascular regular rate rhythm no murmurs Abdomen soft nontender nondistended bowel sounds are positive Extremities no edema PN: Objective Data - Labs CBC & Chem 7: 04/01/20 05:40 04/01/20 05:40 Labs: Laboratory Results - last 24 hr 04/01/20 04/01/20 04/01/20 05:40 05:40 05:40 WBC 9.6 RBC 2.99 L Hgb 9.4 L Hct 26.1 L MCV 87.3 MCH 31.4 MCHC 36.0 RDW 14.2 Plt Count 349 MPV 9.9 Immature Gran % (Auto) 0.1 Neut % (Auto) 42.7 L Lymph % (Auto) 44.7 H Dauphin % (Auto) 7.6 Eos % (Auto) 4.0 Baso % (Auto) 0.9 Lymph # (Auto) 4.29 H Da[place]hin # (Auto) 0.7 H Eos # (Auto) 0.4 H Baso # (Auto) 0.1 Abs Immat Gran (auto) 0.01 Absolute Neuts (auto) 4.1 Absolute Nucleated RBC 0.0 Nucleated RBC % 0.3 H Absolute Retic 0.16 L Percent Retic 5.28 H Immature Retic Fraction 26.9 H Retic Hgb Content 32.2 PT 24.3 H D INR 2.1 Sodium 139 Potassium 3.6 Chloride 105 Carbon Dioxide 29 Anion Gap 5 L BUN 6 L Creatinine 0.60 L Estim Creat Clear Calc 170 Estimated GFR > 60 Glucose 107 Calcium 8.5 Magnesium 2.1
[2020-04-01] MEDS: LACTATED RINGERS 1,000 ML 75 ML IV CONT (15:57)
[2020-04-01] MEDS: WARFARIN (*PBKC) 10 MG TABLET PO (17:07)
[2020-04-01] MEDS: WARFARIN (*PBKC) 2 MG TABLET PO (17:07)
[2020-04-01 19:38] VITALS: BP 142/72; PULSE 88; RESP 18; TEMP 36.4; O2SAT 100
[2020-04-01] MEDS: oxyCODONE HCL (*CRX) 5 MG TAB IR PO (22:12)
[2020-04-01] MEDS: oxyCODONE/ACETAMINOPHEN (*CRX) 5-325 MG TABLET 1 TABLET PO (22:13)
[2020-04-02] MEDS: HYDROmorphone HCL INJ (*CRX) 2 MG/ML VIAL 3 MG IV PUSH ×6 (00:06→15:57)
[2020-04-02 04:20] VITALS: BP 125/63; PULSE 76; RESP 17; TEMP 36.2; O2SAT 98
[2020-04-02] MEDS: LACTATED RINGERS 1,000 ML 75 ML IV CONT (05:55)
[2020-04-02 06:28] LABS: Basophils Absolute Auto 0.1 K/mm3 (0.0-0.1); Basophils Percent Auto 0.7 % (0.2-1.2); Eosinophils Absolute Auto 0.6 K/mm3 (0-0.3); Eosinophils Percent Auto 5.6 % (0-4.4); Hematocrit 26.9 % (42.0-52.0); Hemoglobin 9.7 g/dL (14.0-18.0); Immature Granulocyte Absolute 0.03 K/mm3 (0.00-0.031); Immature Granulocyte Percent A 0.3 % (0-0.5); Immature Platelet Fraction Pct 3.5 % (0.9-11.2); Lymphocytes Absolute Auto 3.99 K/mm3 (0.9-3.2); Lymphocytes Percent Auto 39.3 % (18.3-44.2); Mean Corpuscular HGB Conc 36.1 g/dl (32-36); Mean Corpuscular Hemoglobin 31.7 pg (26-34); Mean Corpuscular Volume 87.9 fl (80-100); Mean Platelet Volume 10.2 fl (7.4-10.4); Monocytes Absolute Auto 0.8 K/mm3 (0.1-0.6); Monocytes Percent Auto 7.7 % (2.6-8.5); Neutrophils Absolute Auto 4.7 K/mm3 (1.3-6.7); Neutrophils Percent Auto 46.4 % (45.5-73.1); Nucleated Red Blood Cells Absolute Auto 0.1 K/mm3 (0.0-0.012); Nucleated Red Blood Cells Perc 0.5 % (0.0-0.2); Platelet Count Result 380 k/mm3 (150-375); Red Blood Count 3.06 M/mm3 (4.6-6.20); Reticulocyte Hemoglobin Conten 31.1 pg (28.2-35.7); Reticulocyte Percent 4.72 % (0.7-4.3); Reticulocytes Absolute 0.14 B/L (32.2-175.7); White Blood Count 10.2 K/mm3 (4.5-10.0)
[2020-04-02 06:42] LABS: INR 2.3; Prothrombin Time 25.7 Seconds (11.1-14.7)
[2020-04-02 07:26] LABS: Platelet Estimate Adequate (Adequate); Sickle Cells 1+ (NORMAL); Target Cells 2+ (NORMAL)
[2020-04-02 07:28] LABS: Helmet Cells 1+ (NORMAL)
[2020-04-02 08:00] VITALS: PULSE 76; RESP 17; O2SAT 98
[2020-04-02] MEDS: FOLIC ACID 1 MG TABLET PO (09:18)
[2020-04-02] MEDS: HYDROXYUREA (*CHEMO) 500 MG CAPSULE PO ×2 (09:18→16:29)
[2020-04-02 14:00] VITALS: BP 126/67; PULSE 87; RESP 16; TEMP 36.2; O2SAT 99
[2020-04-02] MEDS: WARFARIN (*PBKC) 2 MG TABLET PO (16:29)
[2020-04-02] MEDS: WARFARIN (*PBKC) 10 MG TABLET PO (16:29)
--- NOTE | 2020-04-02 16:34 | PM.DS ---
DS: Admitting Diagnosis Admitting Diagnosis Admitting Diagnosis: Sickle cell pain DS: Discharge Diagnosis Discharge Diagnosis (1) Sickle-cell disease with pain: Code(s): D57.00 - Hb-SS disease with crisis, unspecified Status: Acute Assessment and Plan: Date of Admission 03/29/20 Date of Discharge/DOS 04/02/20 Mr. 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 He was seen by Dr Marks and treated with narcotics for pain medication. His warfarin was continued and INR was subtherapeutic on arrival, then within normal range on day of discharge. He would benefit from following with a pain management clinic or a specialty sickle cell clinic due to multiple hospital admissions for pain control. Overall he is feeling improved and hemodynamically stable for discharge on 04/02/20 with instructions to follow up with Dr Marks. Reports cold weather precipitated his pain and his home pain regimen was not providing relief. Pain management per Dr Marks's recommendations. supportive care with IV hydration, supplemental O2 as needed. Continue folic acid and hydroxyurea. (2) Sickle cell disease, type SC: Qualifiers: Sickle-cell associated disorders: without crisis Qualified Code(s): D57.20 - Sickle-cell/Hb-C disease without crisis Code(s): D57.20 - Sickle-cell/Hb-C disease without crisis Status: Chronic Assessment and Plan: See above, follows with Dr Marks. (3) Chronic anticoagulation: Code(s): Z79.01 - intermediate (current) use of anticoagulants Status: Chronic Assessment and Plan: Continue long-term anticoagulation with warfarin for recurrent pulmonary embolism. INR 2.1, monitor INR daily. Has admitted in the past to noncompliance with this but he reports he has not missed any doses recently. (4) Chronic pain syndrome: Code(s): G89.4 - Chronic pain syndrome Status: Chronic Assessment and Plan: See above. Frequent hospital admissions around once per month for pain control. DS: Summary Hospital Course Hospital Course: See above. Time Spent with Patient Time attestation: Total time spent providing and/or coordinating discharge services: 40 minutes Exam Narrative: Exam Narrative: General: Male resting supine in bed no acute distress. HEENT: Normocephalic, EOMI, oral mucosa moist. Cardiovascular: Rate and rhythm are regular. Respiratory: Lungs clear to auscultation bilaterally. Respirations even and non-labored. Abdomen: Soft, non-tender, non-distended, bowel sounds present. Extremities: Peripheral pulses intact. No edema. Neuro: No focal neurological deficits. Speech is clear. DS: Data Data Completed and Pending Labs on day of discharge: Last Vital Signs Temp 97.2 F L 04/02/20 14:00 Pulse 87 04/02/20 14:00 Resp 16 04/02/20 14:00 BP 126/67 04/02/20 14:00 Pulse Ox 99 04/02/20 14:00 ITS Impressions Chest X-Ray 03/29/20 13:25 IMPRESSION: 1. Mild atelectasis at the lung bases. Laboratory Tests 04/02/20 05:49 04/01/20 05:40 Discharge Plan Discharge Attending physician on discharge: Elyse Simon Consulting providers: Jone Marks Discharging Clinician: Idalia Castañeda Anticipated Discharge Date/Time: 04/02/20 16:29 Patient Disposition: Home, Self-Care Activity: as tolerated Diet: as tolerated Discharge Instructions: Call to schedule a follow up appointment with Dr Marks. It is very important that you continue to take your Warfarin as prescribed. Continue to monitor your symptoms and
== END 2020-04-02 17:20 | disposition home or self-care (01) | DRG 662 ==
LOC: ANHED 14:49 → ANH3MED 17:49
PROVIDERS: Physician Assistant; Admitting Provider Internal Medicine; Emergency Provider Emergency Medicine; PCP Internal Medicine Hematology & Oncology; Visit Provider Family Medicine
DX: D57.00 Hb-SS disease with crisis, unspecified (principal); I26.99 Other pulmonary embolism without acute cor pulmonale; G89.4 Chronic pain syndrome; F11.90 Opioid use, unspecified, uncomplicated; R79.1 Abnormal coagulation profile; Z79.01 Long term (current) use of anticoagulants; Z87.891 Personal history of nicotine dependence
CPT/HCPCS: 36415; 71046; 80048; 80053; 81003; 83615; 83735; 84484; 85025; 85027; 85046; 85055; 85610; 85730; 93005; 96361; 96374; 96375; 96376; 99285; A9270; G0378; G0379; J1170; J1885; J2405; J7030; J7120

== ENCOUNTER 2020-04-28 10:47 | Emergency (ER) | payer OTHER, SELFPAY ==
--- NOTE | ~2020-04-28 | XR_ITS ---
EXAMINATION: XR chest 1V portable DATE: 04/28/2020 12:14 INDICATION: Sickle cell crisis. TECHNIQUE: A single frontal view of the chest was obtained. COMPARISON: Chest 2 views 03/29/2020 FINDINGS: Again seen is mild scarring at the lung bases. No pleural effusion or pneumothorax. The hea rt size is normal. IMPRESSION: 1. Stable mild sickle cell chronic lung disease. Reviewed, dictated and finalized at location A. EN DOOR MAKER
[2020-04-28 11:34] VITALS: BP 145/81; PULSE 91; RESP 19; TEMP 36.8; O2SAT 97
[2020-04-28 11:37] VITALS: PULSE 85
[2020-04-28 12:18] LABS: Alanine Aminotransferase 31 U/L (4-50); Albumin Level 4.5 g/dL (3.5-5.1); Alkaline Phosphatase 97 U/L (38-126); Anion Gap 8 mmol/L (8-16); Aspartate Amino Transferase 46 U/L (17-59); Blood Urea Nitrogen 8 mg/dL (9-20); Calcium 8.8 mg/dL (8.4-10.2); Carbon Dioxide 23 mmol/L (22-30); Chloride 108 mmol/L (98-107); Estimated CRCL calculation 130 ml/min; Estimated Glomerular Filt Rate > 60; Glucose 110 mg/dL (75-110); Potassium 3.9 mmol/L (3.4-5.0); Sodium 139 mmol/L (137-145)
[2020-04-28 12:21] LABS: Basophils Absolute Auto 0.1 K/mm3 (0.0-0.1); Basophils Percent Auto 0.7 % (0.2-1.2); Eosinophils Absolute Auto 0.4 K/mm3 (0-0.3); Eosinophils Percent Auto 4.5 % (0-4.4); Hematocrit 32.9 % (42.0-52.0); Hemoglobin 11.9 g/dL (14.0-18.0); Immature Granulocyte Absolute 0.02 K/mm3 (0.00-0.031); Immature Granulocyte Percent A 0.2 % (0-0.5); Immature Platelet Fraction Pct 4.5 % (0.9-11.2); Immature Reticulocyte Fraction 36.8 % (3.0-15.9); Lymphocytes Absolute Auto 3.33 K/mm3 (0.9-3.2); Lymphocytes Percent Auto 38.7 % (18.3-44.2); Mean Corpuscular HGB Conc 36.2 g/dl (32-36); Mean Corpuscular Hemoglobin 32.2 pg (26-34); Mean Corpuscular Volume 89.2 fl (80-100); Mean Platelet Volume 10.4 fl (7.4-10.4); Monocytes Absolute Auto 0.8 K/mm3 (0.1-0.6); Monocytes Percent Auto 8.7 % (2.6-8.5); Neutrophils Absolute Auto 4.1 K/mm3 (1.3-6.7); Neutrophils Percent Auto 47.2 % (45.5-73.1); Nucleated Red Blood Cells Perc 0.2 % (0.0-0.2); Platelet Count Result 344 k/mm3 (150-375); Red Blood Count 3.69 M/mm3 (4.6-6.20); Red Cell Distribution Width 14.6 % (11.5-14.5); Reticulocyte Percent 4.45 % (0.7-4.3); Reticulocytes Absolute 0.16 B/L (32.2-175.7); White Blood Count 8.6 K/mm3 (4.5-10.0)
--- NOTE | 2020-04-28 12:30 | PC.NURSE ---
RN attempted IV x2 with no success.
[2020-04-28 12:42] LABS: Platelet Estimate Adequate (Adequate)
[2020-04-28 12:43] LABS: Hypochromasia 1+ (NORMAL); Sickle Cells 2+ (NORMAL); Stomatocytes 1+ (NORMAL); Target Cells 1+ (NORMAL)
[2020-04-28] MEDS: HYDROmorphone HCL INJ (*CRX) 1 MG/ML SYR 0.5 MG IV PUSH (12:50)
[2020-04-28] MEDS: ONDANSETRON INJ 4 MG/2 ML VIAL IV PUSH (12:55)
[2020-04-28] MEDS: SODIUM CHLORIDE 0.9% IV 1,000 ML 999 ML IV CONT (12:57)
[2020-04-28] MEDS: HALOPERIDOL LACTATE 5 MG/ML VIAL 2 MG IV PUSH (13:26)
[2020-04-28] MEDS: KETOROLAC 15 MG/ML VIAL (*BKC) IV PUSH ×2 (13:26→14:13)
[2020-04-28 13:29] VITALS: BP 118/70; PULSE 81; RESP 16; O2SAT 98
[2020-04-28 13:52] LABS: Add Urine Microscopic? NO; Appearance Urine Clear (Clear); Bilirubin Urine Negative (Negative); Blood Urine Negative (Negative); Color Urine Straw (Yellow); Glucose Urine UA Negative (Negative); Ketones Urine Negative (Negative); Leukocyte Esterase Ur Negative LEU/UL (Negative); Mucus Urine Rare /lpf; Nitrate Urine Negative (Negative); Protein Urine Negative (Negative); Squamous Epithelial Cell Urine Rare /hpf (Few); Transitional Epi Cells Urine Rare /hpf (None Seen); Urobilinogen Urine Negative mg/dL (<2.0); WBC Urine 0-3 /hpf
--- NOTE | 2020-04-28 13:58 | ED.GENADULT ---
HPI - General Adult General Chief complaint: Unspecified Stated complaint: sickle cell Time Seen by Provider: 04/28/20 12:01 Source: patient Mode of arrival: ambulatory Limitations: no limitations History of Present Illness HPI narrative: A 35-year-old male presents to the emergency department with complaints of sickle cell crisis. Patient states his pain started yesterday. He thinks it is due to the weather. Patient states that he has been taking his medications at home, he does see his ink maker. Patient also notes that he has been taking his oxycodone. Related Data Home Medications Medication Instructions Recorded Confirmed folic acid 1 mg PO DAILY 02/16/19 03/29/20 hydroxyurea [Hydrea] 500 mg PO BID 02/16/19 03/29/20 oxycodone-acetaminophen 1 tablet PO Q4H PRN 11/08/19 03/29/20 warfarin 2 mg PO DAILY 11/08/19 03/29/20 methadone 10 mg PO TID 11/09/19 03/29/20 Allergies Allergy/AdvReac Type Severity Reaction Status Date / Time Fish Containing Products Allergy Intermediate Itching Verified 03/29/20 18:41 Review of Systems Review of Systems: Narrative: CONSTITUTIONAL: Denies fever, chills, or sweats. Generalized pain EYES: Denies visual changes, redness, or discharge. ENT: Denies rhinorrhea, congestion, sore throat, or otalgia. CARDIOVASCULAR: Denies chest pain, palpitations, or edema. RESPIRATORY: Denies cough or dyspnea. GASTROINTESTINAL: Denies abdominal pain, nausea, vomiting, or diarrhea. GENITOURINARY: Denies dysuria or hematuria. SKIN: Denies rash or itching. MUSCULOSKELETAL: Denies back pain, joint pain, or myalgia. NEUROLOGIC: Denies headache, numbness, dizziness, or weakness. PSYCHIATRIC: Denies anxiety or depression. [facility] Past Medical History Medical History Acute chest syndrome Chronic anticoagulation Due to history of DVT and pulmonary embolism. Chronic narcotic use On methadone with oxycodone for chronic pain related to his sickle cell disease. Deep venous thrombosis Noncompliance History of noncompliance with anticoagulation and hydroxyurea. Pulmonary embolism Sickle cell disease, type SC Surgical History Surgical History History of hand surgery Tendon surgery on right 5th finger. Family History Family History Grandparent Acute myocardial infarction Diabetes mellitus Sibling Asthma Sibling Asthma Mother Hypertension Son Sickle cell trait Daughter Sickle cell trait Grandparent No problems noted. Other Diabetes mellitus Social History Social History Social History: The patient lives in [place] with his family. He is on disability due to sickle cell disease and chronic pain. He designates his friend, Keyla Luther, as his surrogate decision maker and he wishes to be a full code. He is a lifelong nonsmoker and denies alcohol and drug use. The patient has 2 children who have the sickle cell trait. Smoking status: Never smoker Alcohol intake: never Substance use: former Substance use type: marijuana Additional occupation/education comments: Gender identity (if verbalized by the patient): Male Spiritual care concerns: No Agree to blood products: Yes Exam Narrative: Exam Narrative: GENERAL: Well-appearing, well-nourished, and in no acute distress. HEAD: Normocephalic, atraumatic. EYES: PERRLA and EOMI. ENT: Nares clear, no rhinorrhea or epistaxis. Mucous membranes moist. Oropharynx without tonsillar hypertrophy exudate or other lesions. Bilateral TMs pearly smalls nonbulging NECK: Supple. No adenopathy or masses. No carotid bruits or JVD CHEST: Clear to auscultation. No respiratory distress. No wheezes rales or rhonchi HEART: Regular rate and rhythm. No murmur heard. Normal peripheral pulses. ABDOMEN: Soft, nontender, nondi
[2020-04-28] MEDS: MORPHINE SULFATE (*CRX) 4 MG/ML INJ IV PUSH (14:13)
[2020-04-28 14:15] VITALS: BP 111/68; PULSE 97; RESP 15; O2SAT 97
[2020-04-28 15:02] VITALS: BP 103/66; PULSE 73; RESP 15; O2SAT 96
== END 2020-04-28 15:04 | disposition home or self-care (01) ==
PROVIDERS: Emergency Medicine; Emergency Provider Emergency Medicine; PCP Internal Medicine Hematology & Oncology
DX: D57.00 Hb-SS disease with crisis, unspecified (principal); Z86.718 Personal history of other venous thrombosis and embolism; Z86.711 Personal history of pulmonary embolism; Z79.01 Long term (current) use of anticoagulants
CPT/HCPCS: 36415; 71045; 80053; 81003; 85025; 85046; 85055; 96361; 96374; 96375; 96376; 99284; J1170; J1630; J1885; J2270; J2405; J7030

== ENCOUNTER 2020-05-24 09:46 | Inpatient (IN) | payer OTHER, SELFPAY ==
[2020-05-24] VITALS (13 sets, daily range): BP systolic 113–142; BP diastolic 69–88; PULSE 79–109; RESP 14–20; TEMP 36.4–36.9; O2SAT 96–100; BMI 34.9
--- NOTE | ~2020-05-24 | XR_ITS ---
XR chest 1V portable 05/24/2020 10:23 Indication: Sickle cell crisis. Body aches. Procedure: AP portable chest Comparison Comparison to multiple prior studies sequentially, with oldest reviewed study dated 02/19. Findings: Chronic bibasilar atelectasis/scarring unchanged. No acute focal pneumonia, edema or effusi on. Heart size normal. No pneumothorax. No acute osseous abnormality. Impression: 1: No acute cardiopulmonary disease. Reviewed, dictated and finalized at location B. CONDITIONER Impression: 1: No acute cardiopulmonary disease.
--- NOTE | 2020-05-24 10:15 | PC.NURSE ---
ATTEMPTED IV ACCESS X1 WITH NO SUCCESS. PT STATES HANNAH LANZA USUALLY HAS TO COME DOWN TO START HIS IV'S. HANNAH WAS NOTIFIED AND IS ABLE TO COME DOWN FOR ACCESS.
[2020-05-24 10:46] LABS: Basophils Absolute Auto 0.1 K/mm3 (0.0-0.1); Basophils Percent Auto 0.6 % (0.2-1.2); Eosinophils Absolute Auto 0.2 K/mm3 (0-0.3); Eosinophils Percent Auto 2.6 % (0-4.4); Hematocrit 29.9 % (42.0-52.0); Hemoglobin 10.7 g/dL (14.0-18.0); Immature Granulocyte Absolute 0.02 K/mm3 (0.00-0.031); Immature Granulocyte Percent A 0.2 % (0-0.5); Immature Platelet Fraction Pct 5.2 % (0.9-11.2); Immature Reticulocyte Fraction 32.7 % (3.0-15.9); Lymphocytes Absolute Auto 2.96 K/mm3 (0.9-3.2); Lymphocytes Percent Auto 35.5 % (18.3-44.2); Mean Corpuscular HGB Conc 35.8 g/dl (32-36); Mean Corpuscular Hemoglobin 31.7 pg (26-34); Mean Corpuscular Volume 88.5 fl (80-100); Monocytes Absolute Auto 0.7 K/mm3 (0.1-0.6); Monocytes Percent Auto 8.2 % (2.6-8.5); Neutrophils Absolute Auto 4.4 K/mm3 (1.3-6.7); Neutrophils Percent Auto 52.9 % (45.5-73.1); Nucleated Red Blood Cells Perc 0.2 % (0.0-0.2); Red Blood Count 3.38 M/mm3 (4.6-6.20); Red Cell Distribution Width 13.7 % (11.5-14.5); Reticulocyte Hemoglobin Conten 34.2 pg (28.2-35.7); Reticulocyte Percent 5.25 % (0.7-4.3); Reticulocytes Absolute 0.18 B/L (32.2-175.7); White Blood Count 8.3 K/mm3 (4.5-10.0)
[2020-05-24 10:59] LABS: Platelet Clumps Present; Platelet Estimate Adequate (Adequate); Sickle Cells 1+ (NORMAL)
[2020-05-24 11:00] LABS: Stomatocytes 2+ (NORMAL); Target Cells 2+ (NORMAL)
[2020-05-24 11:01] LABS: Add Urine Microscopic? YES; Appearance Urine Clear (Clear); Bilirubin Urine Negative (Negative); Blood Urine Negative (Negative); Color Urine Yellow (Yellow); Glucose Urine UA Negative (Negative); Ketones Urine Negative (Negative); Leukocyte Esterase Ur Negative LEU/UL (Negative); Mucus Urine Rare /lpf; Nitrate Urine Negative (Negative); Protein Urine Negative (Negative); Specific Grav Ur 1.013 (1.001-1.035); Squamous Epithelial Cell Urine Rare /hpf (Few); WBC Urine 0-3 /hpf
--- NOTE | 2020-05-24 11:04 | ED.GENADULT ---
HPI - General Adult General Chief complaint: Unspecified <Samir Jin PA-C - Last Filed: 05/24/20 17:07> Stated complaint: sickle cell <Samir Jin PA-C - Last Filed: 05/24/20 17:07> Time Seen by Provider: 05/24/20 10:12 <Samir Jin PA-C - Last Filed: 05/24/20 17:07> Source: patient <ZAINAB Puentes Last Filed: 05/24/20 17:07> Mode of arrival: ambulatory <ZAINAB Puentes Last Filed: 05/24/20 17:07> Limitations: no limitations <ZAINAB Puentes Last Filed: 05/24/20 17:07> History of Present Illness HPI narrative: Patient with sickle cell disease presents with chief complaints of pain to his ribs and back which are typical locations for his sickle cell crisis. Patient denies chest pain or shortness of breath. Patient states that he has been taking his methadone and his oxycodone without relief of his pain. Patient states typically his pain resolves with fluids and Dilaudid while in emergency department. Patient denies fever, chills, nausea, vomiting, diarrhea, syncope or any other symptoms. <ZAINAB Puentes Last Filed: 05/24/20 17:07> Related Data Home medications: Home Medications Medication Instructions Recorded Confirmed folic acid 1 mg PO DAILY 02/16/19 03/29/20 hydroxyurea [Hydrea] 500 mg PO BID 02/16/19 03/29/20 oxycodone-acetaminophen 1 tablet PO Q4H PRN 11/08/19 03/29/20 warfarin 2 mg PO DAILY 11/08/19 03/29/20 methadone 10 mg PO TID 11/09/19 03/29/20 <ZAINAB Puentes Last Filed: 05/24/20 17:07> Allergies/adverse reactions: Allergies Allergy/AdvReac Type Severity Reaction Status Date / Time Fish Containing Products Allergy Intermediate Itching Verified 05/24/20 10:28 <ZAINAB Puentes Last Filed: 05/24/20 17:07> Review of Systems Review of Systems: Narrative: CONSTITUTIONAL: Denies fever, chills, or sweats. EYES: Denies visual changes, redness, or discharge. ENT: Denies rhinorrhea, congestion, sore throat, or otalgia. CARDIOVASCULAR: Denies chest pain, palpitations, or edema. RESPIRATORY: Denies cough or dyspnea. GASTROINTESTINAL: Denies abdominal pain, nausea, vomiting, or diarrhea. GENITOURINARY: Denies dysuria or hematuria. SKIN: Denies rash or itching. MUSCULOSKELETAL: Reports back pain and rib pain Denies myalgia or joint pain NEUROLOGIC: Denies headache, numbness, dizziness, or weakness. PSYCHIATRIC: Denies anxiety or depression. <Samir Jin PA-C - Last Filed: 05/24/20 17:07> [facility] Past Medical History Medical History: Medical History Acute chest syndrome Chronic anticoagulation Due to history of DVT and pulmonary embolism. Chronic narcotic use On methadone with oxycodone for chronic pain related to his sickle cell disease. Deep venous thrombosis Noncompliance History of noncompliance with anticoagulation and hydroxyurea. Pulmonary embolism Sickle cell disease, type SC <Samir Jin PA-C - Last Filed: 05/24/20 17:07> Surgical History Surgical History: Surgical History History of hand surgery Tendon surgery on right 5th finger. <Samir Jin PA-C - Last Filed: 05/24/20 17:07> Family History Family History: Family History Grandparent Acute myocardial infarction Diabetes mellitus Sibling Asthma Sibling Asthma Mother Hypertension Son Sickle cell trait Daughter Sickle cell trait Grandparent No problems noted. Other Diabetes mellitus <Samir Jin PA-C - Last Filed: 05/24/20 17:07> Social History Social History: Social History Social History: The patient lives in [place] with his family. He is on disability due to sickle cell disease and chronic pain. He designates his friend, Keyla Luther, as his surrogate de
[2020-05-24] MEDS: SODIUM CHLORIDE 0.9% IV 1,000 ML 999 ML IV CONT (11:08)
[2020-05-24] MEDS: KETOROLAC 15 MG/ML VIAL (*BKC) IV PUSH (11:08)
[2020-05-24] MEDS: HYDROmorphone HCL INJ (*CRX) 1 MG/ML SYR IV PUSH ×3 (11:08→12:47)
--- NOTE | 2020-05-24 11:09 | PC.NURSE ---
Called lab to add on Direct ldl
[2020-05-24 11:17] LABS: Alanine Aminotransferase 23 U/L (4-50); Albumin Level 4.3 g/dL (3.5-5.1); Alkaline Phosphatase 90 U/L (38-126); Anion Gap 8 mmol/L (8-16); Aspartate Amino Transferase 34 U/L (17-59); Bilirubin,Total 0.8 mg/dL (0.2-1.3); Blood Urea Nitrogen 6 mg/dL (9-20); Calcium 8.8 mg/dL (8.4-10.2); Carbon Dioxide 26 mmol/L (22-30); Chloride 108 mmol/L (98-107); Estimated CRCL calculation 147 ml/min; Estimated Glomerular Filt Rate > 60; Glucose 117 mg/dL (75-110); Potassium 3.3 mmol/L (3.4-5.0); Sodium 142 mmol/L (137-145)
[2020-05-24 11:33] LABS: LDL Cholesterol Direct 47 mg/dL
[2020-05-24] MEDS: HYDROmorphone HCL INJ (*CRX) 1 MG/ML SYR 2 MG IV PUSH (14:20)
[2020-05-24] MEDS: HYDROmorphone HCL INJ (*CRX) 1 MG/ML SYR 3 MG IV PUSH ×3 (17:21→23:57)
--- NOTE | 2020-05-24 18:10 | ADMGEN ---
This patient, Quan Downing, was admitted to 2 Medical Room 242-. Patient/family oriented to hospital policies and general routines including ID bracelet, bed and alarms, visiting hours, pain management, procedures, bathroom and other care routines, personal items, smoking policy, room service/diet, and visiting hours. Information on how to activate the Rapid Response Team has been discussed. Patient/Family are encouraged to report perceived risks to care and to ask questions if they do not understand what they are told or what they should do.
[2020-05-24] MEDS: SODIUM CHLORIDE 0.9% IV 1,000 ML 125 ML IV CONT (18:14)
[2020-05-24 22:39] LABS: Lactate Dehydrogenase 592 U/L (313-618)
[2020-05-24 22:41] LABS: INR 1.3; Prothrombin Time 16.9 Seconds (11.1-14.7)
[2020-05-24] MEDS: WARFARIN (*PBKC) 10 MG TABLET PO (23:20)
[2020-05-24] MEDS: WARFARIN (*PBKC) 2 MG TABLET PO (23:20)
[2020-05-25] MEDS: diphenhydrAMINE HCl CAP 25 MG CAPSULE 50 MG PO (01:16)
[2020-05-25] MEDS: SODIUM CHLORIDE 0.9% IV 1,000 ML 125 ML IV CONT ×2 (02:37→08:58)
[2020-05-25] MEDS: HYDROmorphone HCL INJ (*CRX) 1 MG/ML SYR 3 MG IV PUSH ×7 (03:00→21:29)
--- NOTE | 2020-05-25 03:25 | HP_ITS ---
DATE OF SERVICE: 05/24/2020 TIME OF EVALUATION: 1900 hours. CHIEF COMPLAINT: Sickle cell pain. HISTORY OF PRESENT ILLNESS: This is a 35-year-old male with sickle cell disease SC, chronic pain syndrome, and history of pulmonary embolism on warfarin, who presented to the emergency department earlier today from home with complaints of sickle cell pain. Over the past several days or so, he reports increasing pain from his baseline, which he attributes to the cold weather. He is maintained on methadone at home and does have oxycodone for breakthrough, but despite taking the oxycodone more frequently, he has continued to have pain and thus he came in for evaluation. The pain is mainly in his ribs, low back and his legs and at the time of my evaluation, he rates the pain at 8/10. He has not had any chest pain or shortness of breath. No fever, chills, or sweats. No recent cold or flu symptoms. MEDICAL HISTORY: 1. History of acute chest syndrome. 2. Long-term anticoagulation on warfarin due to history of DVT and pulmonary embolism. 3. History of DVT. 4. History of pulmonary embolism. 5. Chronic pain syndrome secondary to sickle cell pain. 6. Sickle cell disease, type SC. 7. Chronic narcotic use, on methadone and oxycodone for breakthrough. SURGICAL HISTORY: Tendon surgery on the right 5th finger. HOME MEDICATIONS: 1. Folic acid 1 mg daily. 2. Hydroxyurea 500 mg twice daily. 3. Methadone 10 mg 3 times daily. 4. Oxycodone-acetaminophen 10/325 q.4 hours as needed for pain. 5. MiraLAX as needed for constipation. 6. Warfarin 12 mg daily. ALLERGIES: FISH CONTAINING PRODUCTS. SOCIAL HISTORY: The patient lives with his family in [place]. He is on disability due to sickle cell disease and chronic pain syndrome. He designates his friend, Aleida Luther, as his surrogate decision maker and he wishes to be a full code. He is a lifelong nonsmoker and denies alcohol and illicit substance use. He has 2 children, who also have sickle cell trait. FAMILY HISTORY: Significant for heart disease, diabetes, hypertension, and sickle cell trait. REVIEW OF SYSTEMS: Twelve systems were reviewed with pertinent positives and negatives as per HPI. Except as documented, all other systems were reviewed and are negative. PHYSICAL EXAMINATION: VITAL SIGNS: Current vital signs; pulse 88, respiratory rate 14, blood pressure 127/81, pulse ox 96% on room air, and temperature 97.5. GENERAL: Well-developed, well-nourished male in the Semi-Diop position in bed. He appears comfortable and is watching a movie on the laptop he brought in from home. Weight 110.4 kg. BMI: 34.9. HEENT: Normocephalic, atraumatic. PERRLA. EOMI. Sclerae anicteric. Oral mucosa moist. NECK: Supple. RESPIRATORY: Lungs are clear to auscultation bilaterally. CARDIOVASCULAR: Regular rate and rhythm with S1, S2. GASTROINTESTINAL: Abdomen is soft, nontender, nondistended with positive bowel sounds. SKIN: Warm and dry. EXTREMITIES: No cyanosis, clubbing, or edema. Radial and pedal pulses intact. NEUROLOGIC: Alert. Cranial nerves 2 through 12 grossly intact. No focal deficits. Casual conversation. PSYCHIATRIC: Appropriate mood and affect. He appears comfortable in the bed. PERTINENT LABORATORY DATA: White blood cells 8.3, hemoglobin 10.7, hematocrit 29.9, platelets unable to quantitate platelets due to platelet clumping. 1+ sickle cells, 2+ target cells, and 2+ stomatocytes noted on peripheral smear. Present recheck 5.25%. Sodium 142, potassium 3.3, chloride 108, carbon dioxide 26, BUN 6, creatinine 0.70, glucose 117. LFTs within normal limits. IMAGING: Chest x-ray, no acute cardiopulmonary disease. INITIAL IMPRESSION: 1. Sickle cell disease with pain.
[2020-05-25 05:53] LABS: INR 1.4; Prothrombin Time 17.7 Seconds (11.1-14.7)
[2020-05-25 06:00] VITALS: BP 125/77; PULSE 80; RESP 20; TEMP 36.1; O2SAT 99
[2020-05-25 06:02] LABS: Anion Gap 6 mmol/L (8-16); Blood Urea Nitrogen 7 mg/dL (9-20); Calcium 8.2 mg/dL (8.4-10.2); Carbon Dioxide 25 mmol/L (22-30); Chloride 111 mmol/L (98-107); Estimated CRCL calculation 178 ml/min; Estimated Glomerular Filt Rate > 60; Glucose 96 mg/dL (75-110); Lactate Dehydrogenase 514 U/L (313-618); Potassium 3.9 mmol/L (3.4-5.0); Sodium 142 mmol/L (137-145)
[2020-05-25 06:08] LABS: Hematocrit 27.8 % (42.0-52.0); Hemoglobin 9.8 g/dL (14.0-18.0); Mean Corpuscular HGB Conc 35.3 g/dl (32-36); Mean Corpuscular Hemoglobin 31.8 pg (26-34); Mean Corpuscular Volume 90.3 fl (80-100); Mean Platelet Volume 10.6 fl (7.4-10.4); Platelet Count Result 275 k/mm3 (150-375); Red Blood Count 3.08 M/mm3 (4.6-6.20); Red Cell Distribution Width 13.6 % (11.5-14.5); White Blood Count 9.7 K/mm3 (4.5-10.0)
[2020-05-25] MEDS: FOLIC ACID 1 MG TABLET PO (08:58)
[2020-05-25] MEDS: HYDROXYUREA (*CHEMO) 500 MG CAPSULE PO ×2 (08:58→18:12)
[2020-05-25] MEDS: methADONE HCL (*CRX) 10 MG TABLET PO ×3 (08:59→20:50)
--- NOTE | 2020-05-25 11:03 | PM.IMPN ---
Progress Note: A&P Assessment and Plan (1) Sickle-cell disease with pain: Code(s): D57.00 - Hb-SS disease with crisis, unspecified Status: Acute Assessment and Plan: Labs are similar to previous hospital stays with normal LDH. Dr. Marks consulted and appreciate recommendations. Patient has been placed on IV dilaudid 3 mg Q3 hr and home methadone per Dr. Marks recommendations. Pain has improved somewhat since yesterday Continue pain medication regimen per Dr. Marks recommendations; will defer further adjustments to Dr. Marks Encouraged transitioning to oral pain meds as soon as tolerable Monitor Await further rec from Dr. Marks (2) Sickle cell disease, type SC: Qualifiers: Sickle-cell associated disorders: without crisis Qualified Code(s): D57.20 - Sickle-cell/Hb-C disease without crisis Code(s): D57.20 - Sickle-cell/Hb-C disease without crisis Status: Chronic Assessment and Plan: Please see above a/p. Follows Dr. Marks as an outpatient. (3) Subtherapeutic international normalized ratio (INR): Code(s): R79.1 - Abnormal coagulation profile Status: Acute Assessment and Plan: INR 1.4 today; improved. Patient states he was unable to fill his script for warfarin late last week and thus missed several doses. Continue home warfarin regimen Monitor INR (4) Chronic narcotic use: Code(s): F11.90 - Opioid use, unspecified, uncomplicated Status: Chronic Assessment and Plan: We discussed his chronic narcotic use and recommended he discuss tapering his narcotics as an outpatient to avoid build up of tolerance Subjective Date/time seen: 05/25/20 11:04 Interval history: Patient is a 35 yo M well known to this hospitalist service with history of SC disease type SC, past VTEs, chronic a/c with warfarin, chronic narcotic use who is seen in follow up for sickle cell related pain. Patient states pain is slightly better today; from 9/10 to 8/10 today. Ribs and back pain is a little better. Leg pain has improved more so. He did have some midsternal, nonradiating chest pain yesterday in the ED, but improved with IV dilaudid. No other complaints at the moment. Denies f/c/s, headaches, dizziness, lightheadedness, changes in v/h, current cp/palpitations, sob/cough, n/v/d/c, abd pain, changes in BMs, dysuria, hematuria, cloudy urine, calf pain/swelling. Review of Systems Review of Systems: All systems reviewed & are unremarkable except as noted in HPI and below Exam Narrative: Exam Narrative: General: Patient resting supine in bed in no acute distress. Watching movies on lap top comfortably HEENT: Normocephalic, EOMI, oral mucosa moist. Cardiovascular: Rate and rhythm are regular. No notable murmur, rub, or gallop. Respiratory: Lungs clear to auscultation all polanco. Non-labored breathing. Abdomen: Soft, non-tender, non-distended, bowel sounds present. Extremities: Peripheral pulses intact. No edema. NTTP b/l calves Neuro: No focal neurological deficits. Speech is clear. Objective Data Vital Signs Vital Signs: Last Vital Signs Temp 97.0 F L 05/25/20 06:00 Pulse 80 05/25/20 06:00 Resp 20 05/25/20 06:00 BP 125/77 05/25/20 06:00 Pulse Ox 99 05/25/20 06:00 Intake/Output Intake/Output: Intake & Output 05/22/20 05/23/20 05/24/20 05/25/20 23:59 23:59 23:59 23:59 Intake Total 1000 2540 Output Total 900 Balance 1000 1640 Meds/Results Medications: Active Medications Generic Name Dose Route Start Last Admin Trade Name Freq PRN Reason Stop Dose Admin Diphenhydramine HCl 50 mg 05/25/20 01:04 05/25/20 01:16 Diphenhydramine Hcl Cap 25 Mg Capsule PO 50 mg Q6H PRN Administration Itching Folic Acid 1 mg 05/25/20 09:00 05/25/20 08:58 Folic Acid 1 Mg
[2020-05-25 14:00] VITALS: BP 113/63; PULSE 90; RESP 18; TEMP 36; O2SAT 97
--- NOTE | 2020-05-25 17:17 | PDONCCN ---
HPI - Date of Consult Date/Time: 05/25/20 17:17 Requesting Physician: Saul Veronica PA-C Primary Care Provider: Jone Marks MD - Consult Narrative Reason for consult: Sickle cell crisis Narrative: Quan Downing is a 35 year old male with history of sickle cell hemoglobin SC disease and recurrent pulmonary embolism. He came into the hospital with generalized musculoskeletal discomfort involving ribs back leg and upper extremities. He denies any fevers and chills. Denies any sore throat and cough. He was taking his home pain medication including methadone 10 mg 3 times a day and oxycodone 5:00 p.m. as needed without much relief. He was also taking hydroxyurea twice a day with folic acid 1 mg daily. Chest x-ray was performed in the ER that showed no acute cardiopulmonary process. Hemoglobin was stable at 10.7. His INR was subtherapeutic as he ran out of his Coumadin recently. He denies any other complaints. Review of Systems - Review of Systems All systems reviewed & are unremarkable except as noted in HPI and [facility] Medical History: Medical History (Last Reviewed 04/28/20 @ 14:01 by Vince Rodriguez DO) Acute chest syndrome Chronic anticoagulation Due to history of DVT and pulmonary embolism. Chronic narcotic use On methadone with oxycodone for chronic pain related to his sickle cell disease. Deep venous thrombosis Noncompliance History of noncompliance with anticoagulation and hydroxyurea. Pulmonary embolism Sickle cell disease, type SC Surgical History: Surgical History (Last Reviewed 04/28/20 @ 14:01 by Vince Rodriguez DO) History of hand surgery Tendon surgery on right 5th finger. Family History: Family History (Last Reviewed 05/24/20 @ 18:26 by Augustina El RN) Grandparent Acute myocardial infarction Diabetes mellitus Sibling Asthma Sibling Asthma Mother Hypertension Son Sickle cell trait Daughter Sickle cell trait Grandparent No problems noted. Other Diabetes mellitus - Social History Social History: Social History (Last Reviewed 04/28/20 @ 14:01 by Vince Rodriguez DO) Gender Identity: Gender identity (if verbalized by the patient): Male Sexual Orientation: Sexual Orientation (if Verbalized by the Patient): Straight or Heterosexual Alcohol Use: Alcohol intake: never Substance Use: Substance use: former Substance use type: marijuana Others: Spiritual care concerns: No Agree to blood products: Yes Smoking Status: Smoking status: Never smoker Meds Home Medications Medication Instructions Recorded Confirmed Type folic acid 1 mg PO DAILY 02/16/19 05/24/20 History hydroxyurea [Hydrea] 500 mg PO BID 02/16/19 05/24/20 History warfarin [Coumadin] 10 mg PO DAILY@1700 #30 tablet 09/05/19 05/24/20 Rx oxycodone-acetaminophen 1 tablet PO Q4H PRN 11/08/19 05/24/20 History warfarin 2 mg PO DAILY 11/08/19 05/24/20 History methadone 10 mg PO TID 11/09/19 05/24/20 History polyethylene glycol 3350 [Miralax] 17 g PO QAM PRN #14 ea 02/24/20 05/24/20 Rx Allergies Allergy/AdvReac Type Severity Reaction Status Date / Time Fish Containing Products Allergy Intermediate Itching Verified 05/24/20 18:27 Results - Labs CBC & Chem 7: 05/25/20 05:18 05/25/20 05:17 Labs: Short CBC 05/25/20 Range/Units 05:18 WBC 9.7 (4.5-10.0) K/mm3 Hgb 9.8 L (14.0-18.0) g/dL Hct 27.8 L (42.0-52.0) % Plt Count 275 (150-375) k/mm3 BMP 05/25/20 05:17 Sodium 142 Potassium 3.9 Chloride 111 H Carbon Dioxide 25 BUN 7 L Creatinine 0.60 L Glucose 96 Calcium 8.2 L Assessment and Plan - Additional Plan 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 Patient came into the hospital with typical sickle cell crisis symptoms including bone pain involving the ribs back upper and lower extremities. His home pain medication was not h
[2020-05-25] MEDS: SODIUM CHLORIDE 0.9% IV 1,000 ML 100 ML IV CONT (18:11)
[2020-05-25] MEDS: WARFARIN (*PBKC) 10 MG TABLET PO (18:12)
[2020-05-25] MEDS: WARFARIN (*PBKC) 2 MG TABLET PO (18:13)
--- NOTE | 2020-05-25 18:15 | PC.NURSE ---
pt wishes to take methadone dose closer to bedtime, will pass along to night RN
[2020-05-25 20:50] VITALS: BP 123/77; PULSE 89; RESP 16; TEMP 36.1; O2SAT 100
[2020-05-26] MEDS: HYDROmorphone HCL INJ (*CRX) 1 MG/ML SYR 3 MG IV PUSH ×8 (00:30→22:20)
[2020-05-26] MEDS: SODIUM CHLORIDE 0.9% IV 1,000 ML 100 ML IV CONT ×2 (03:54→13:17)
[2020-05-26 05:47] VITALS: BP 125/81; PULSE 88; RESP 16; TEMP 36; O2SAT 98
[2020-05-26 05:59] LABS: Basophils Absolute Auto 0.1 K/mm3 (0.0-0.1); Basophils Percent Auto 0.8 % (0.2-1.2); Eosinophils Absolute Auto 0.4 K/mm3 (0-0.3); Eosinophils Percent Auto 3.5 % (0-4.4); Hematocrit 27.8 % (42.0-52.0); Hemoglobin 9.8 g/dL (14.0-18.0); Immature Granulocyte Absolute 0.02 K/mm3 (0.00-0.031); Immature Granulocyte Percent A 0.2 % (0-0.5); Lymphocytes Absolute Auto 3.54 K/mm3 (0.9-3.2); Lymphocytes Percent Auto 33.9 % (18.3-44.2); Mean Corpuscular HGB Conc 35.3 g/dl (32-36); Mean Corpuscular Hemoglobin 31.7 pg (26-34); Mean Platelet Volume 10.6 fl (7.4-10.4); Monocytes Absolute Auto 0.8 K/mm3 (0.1-0.6); Monocytes Percent Auto 7.9 % (2.6-8.5); Neutrophils Absolute Auto 5.6 K/mm3 (1.3-6.7); Neutrophils Percent Auto 53.7 % (45.5-73.1); Nucleated Red Blood Cells Perc 0.2 % (0.0-0.2); Platelet Count Result 276 k/mm3 (150-375); Red Blood Count 3.09 M/mm3 (4.6-6.20); Red Cell Distribution Width 13.7 % (11.5-14.5); White Blood Count 10.5 K/mm3 (4.5-10.0)
[2020-05-26 06:00] LABS: Immature Reticulocyte Fraction 29.6 % (3.0-15.9); Reticulocyte Hemoglobin Conten 33.4 pg (28.2-35.7); Reticulocytes Absolute 0.16 B/L (32.2-175.7)
[2020-05-26 06:08] LABS: Lactate Dehydrogenase 542 U/L (313-618)
[2020-05-26 06:10] LABS: INR 1.7; Prothrombin Time 20.3 Seconds (11.1-14.7)
[2020-05-26] MEDS: diphenhydrAMINE HCl CAP 25 MG CAPSULE 50 MG PO (07:03)
[2020-05-26] MEDS: HYDROXYUREA (*CHEMO) 500 MG CAPSULE PO ×2 (08:22→16:15)
[2020-05-26] MEDS: FOLIC ACID 1 MG TABLET PO (08:22)
[2020-05-26] MEDS: methADONE HCL (*CRX) 10 MG TABLET PO ×3 (08:22→16:15)
[2020-05-26 09:45] VITALS: O2SAT 94
--- NOTE | 2020-05-26 12:43 | P.PNONC_ITS ---
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 Now patient came in with sickle cell crisis episode. His pain is slowly improving. Hemoglobin stable at 9.8. Continue hydroxyurea 500 mg twice a day with folic acid. Continue current pain medicine and IV hydration. Hopefully patient will be ready to go home in the morning. Recurrent pulmonary embolism. Continue Coumadin 12.5 mg daily. INR has improved to 1.7. - Time Spent With Patient Total time spent is greater than 50% in coordination of care (as documented) at patient's floor/unit and/or counseling patient: 15 - 25 minutes Subjective Interval history: Sickle cell crisis. Review of Systems - Review of Systems Patient denies any fevers and chills. He is still complain of right ribcage and back pain which is slowly improving. He has been eating well. Denies any bleeding. No other new complaints. All systems reviewed & are unremarkable except as noted in HPI and bel Exam Vital signs: Temp Pulse Resp BP Pulse Ox 36.0 C L 88 16 125/81 94 05/26/20 05:47 05/26/20 05:47 05/26/20 05:47 05/26/20 05:47 05/26/20 09:45 Lungs are clear to auscultation bilaterally Cardiovascular regular rate rhythm no murmurs Abdomen nontender nondistended bowel sounds are positive. Some tenderness in the right ribcage area. Extremities no edema PN: Objective Data - Labs CBC & Chem 7: 05/26/20 05:26 05/25/20 05:17 Labs: Laboratory Results - last 24 hr 05/26/20 05/26/20 05/26/20 05:26 05:26 05:26 WBC 10.5 H RBC 3.09 L Hgb 9.8 L Hct 27.8 L MCV 90.0 MCH 31.7 MCHC 35.3 RDW 13.7 Plt Count 276 MPV 10.6 H Immature Gran % (Auto) 0.2 Neut % (Auto) 53.7 Lymph % (Auto) 33.9 [place] % (Auto) 7.9 Eos % (Auto) 3.5 Baso % (Auto) 0.8 Lymph # (Auto) 3.54 H [place] # (Auto) 0.8 H Eos # (Auto) 0.4 H Baso # (Auto) 0.1 Abs Immat Gran (auto) 0.02 Absolute Neuts (auto) 5.6 Absolute Nucleated RBC 0.0 Nucleated RBC % 0.2 Absolute Retic Percent Retic Immature Retic Fraction Retic Hgb Content PT 20.3 H INR 1.7 Lactate Dehydrogenase 542 05/26/20 05:26 WBC RBC Hgb Hct MCV MCH MCHC RDW Plt Count MPV Immature Gran % (Auto) Neut % (Auto) Lymph % (Auto) [place] % (Auto) Eos % (Auto) Baso % (Auto) Lymph # (Auto) [place] # (Auto) Eos # (Auto) Baso # (Auto) Abs Immat Gran (auto) Absolute Neuts (auto) Absolute Nucleated RBC Nucleated RBC % Absolute Retic 0.16 L Percent Retic 5.00 H Immature Retic Fraction 29.6 H Retic Hgb Content 33.4 PT INR Lactate Dehydrogenase
[2020-05-26 14:00] VITALS: BP 140/81; PULSE 92; RESP 18; TEMP 36.6; O2SAT 98
--- NOTE | 2020-05-26 14:34 | PM.IMPN ---
Progress Note: A&P Assessment and Plan (1) Sickle-cell disease with pain: Code(s): D57.00 - Hb-SS disease with crisis, unspecified Status: Acute Assessment and Plan: Labs are similar to previous hospital stays with normal LDH. Dr. Marks consulted and appreciate recommendations. Patient has been placed on IV dilaudid 3 mg Q3 hr and home methadone per Dr. Marks recommendations. Pain has improved somewhat since yesterday Continue pain medication regimen per Dr. Marks recommendations; will defer further adjustments to Dr. Marks Encouraged transitioning to oral pain meds as soon as tolerable. He felt today was too soon for his pain, but is willing to try tomorrow Monitor Await further rec from Dr. Marks (2) Sickle cell disease, type SC: Qualifiers: Sickle-cell associated disorders: without crisis Qualified Code(s): D57.20 - Sickle-cell/Hb-C disease without crisis Code(s): D57.20 - Sickle-cell/Hb-C disease without crisis Status: Chronic Assessment and Plan: Please see above a/p. Follows Dr. Marks as an outpatient. (3) Subtherapeutic international normalized ratio (INR): Code(s): R79.1 - Abnormal coagulation profile Status: Acute Assessment and Plan: INR 1.7 today; improved. Patient states he was unable to fill his script for warfarin late last week and thus missed several doses. Continue home warfarin regimen Monitor INR (4) Chronic narcotic use: Code(s): F11.90 - Opioid use, unspecified, uncomplicated Status: Chronic Assessment and Plan: During stay, we discussed his chronic narcotic use and recommended he discuss tapering his narcotics as an outpatient to avoid tolerance Subjective Date/time seen: 05/26/20 14:34 Interval history: Patient is a 35 yo M well known to this hospitalist service with history of SC disease type SC, past VTEs, chronic a/c with warfarin, chronic narcotic use who is seen in follow up for sickle cell related pain. Patient states pain is slightly better again today; down to 7/10 today, 6/10 at its best. Ribs and back pain is a little better. Leg pain has resolved but having some arm pain, but notes that when it moves around like this, he knows his SC dz improved. No chest pain today. He does note having recently finished a course of penicillin for what sounds like a possible dental abscess from his oral surgeon/dentist; no alarming issues at this time; he plans to return to his oral surgeon/dentist within a week for f/u. No other complaints at the moment. Denies f/c/s, headaches, dizziness, lightheadedness, changes in v/h, current cp/palpitations, sob/cough, n/v/d/c, abd pain, changes in BMs, dysuria, hematuria, cloudy urine, calf pain/swelling. Review of Systems Review of Systems: All systems reviewed & are unremarkable except as noted in HPI and below Exam Narrative: Exam Narrative: General: Patient resting supine in bed in no acute distress. Watching movies on lap top comfortably HEENT: Normocephalic, EOMI, oral mucosa moist. Cardiovascular: Rate and rhythm are regular. No notable murmur, rub, or gallop. Respiratory: Lungs clear to auscultation all polanco. Non-labored breathing. Abdomen: Soft, non-tender, non-distended, bowel sounds present. Extremities: Peripheral pulses intact. No edema. NTTP b/l calves Neuro: No focal neurological deficits. Speech is clear. Objective Data Vital Signs Vital Signs: Vital Signs - 24 hr 05/25/20 20:50 05/26/20 05:47 05/26/20 09:45 Temperature 97.0 F L 96.8 F L Pulse Rate 89 88 Respiratory Rate 16 16 Blood Pressure 123/77 125/81 Pulse Oximetry 100 98 94 Intake/Output Intake/Output: Intake & Output 05/23/20 05/24/20 05/25/2005/26/21 23:59 23:59 23:59 23:59 Intake Total 1000 4080 2400 Output Total 25
[2020-05-26] MEDS: WARFARIN (*PBKC) 2 MG TABLET PO (16:15)
[2020-05-26] MEDS: WARFARIN (*PBKC) 10 MG TABLET PO (16:15)
[2020-05-26 21:50] VITALS: BP 126/85; PULSE 87; RESP 15; TEMP 36.6; O2SAT 97
[2020-05-27] MEDS: HYDROmorphone HCL INJ (*CRX) 1 MG/ML SYR 3 MG IV PUSH ×8 (01:21→23:06)
[2020-05-27] MEDS: SODIUM CHLORIDE 0.9% IV 1,000 ML 100 ML IV CONT ×3 (01:21→20:07)
[2020-05-27 05:20] VITALS: BP 144/88; PULSE 93; RESP 15; TEMP 36.8; O2SAT 100
[2020-05-27 05:56] LABS: Prothrombin Time 23.5 Seconds (11.1-14.7)
[2020-05-27 05:59] LABS: Anion Gap 5 mmol/L (8-16); Blood Urea Nitrogen 4 mg/dL (9-20); Calcium 8.4 mg/dL (8.4-10.2); Carbon Dioxide 25 mmol/L (22-30); Chloride 110 mmol/L (98-107); Estimated CRCL calculation 178 ml/min; Estimated Glomerular Filt Rate > 60; Glucose 118 mg/dL (75-110); Lactate Dehydrogenase 574 U/L (313-618); Sodium 140 mmol/L (137-145)
[2020-05-27 07:08] LABS: Basophils Absolute Auto 0.1 K/mm3 (0.0-0.1); Basophils Percent Auto 0.5 % (0.2-1.2); Eosinophils Absolute Auto 0.3 K/mm3 (0-0.3); Hematocrit 29.1 % (42.0-52.0); Hemoglobin 10.4 g/dL (14.0-18.0); Immature Granulocyte Absolute 0.04 K/mm3 (0.00-0.031); Immature Granulocyte Percent A 0.2 % (0-0.5); Lymphocytes Absolute Auto 2.56 K/mm3 (0.9-3.2); Lymphocytes Percent Auto 15.2 % (18.3-44.2); Mean Corpuscular HGB Conc 35.7 g/dl (32-36); Mean Corpuscular Hemoglobin 31.7 pg (26-34); Mean Corpuscular Volume 88.7 fl (80-100); Mean Platelet Volume 10.6 fl (7.4-10.4); Monocytes Absolute Auto 1.3 K/mm3 (0.1-0.6); Monocytes Percent Auto 7.7 % (2.6-8.5); Neutrophils Absolute Auto 12.5 K/mm3 (1.3-6.7); Neutrophils Percent Auto 74.4 % (45.5-73.1); Nucleated Red Blood Cells Perc 0.1 % (0.0-0.2); Platelet Count Result 319 k/mm3 (150-375); Red Blood Count 3.28 M/mm3 (4.6-6.20); Red Cell Distribution Width 13.7 % (11.5-14.5); White Blood Count 16.8 K/mm3 (4.5-10.0)
[2020-05-27 07:09] LABS: Platelet Estimate Adequate (Adequate)
[2020-05-27 07:10] LABS: Sickle Cells 1+ (NORMAL); Target Cells 2+ (NORMAL)
[2020-05-27 08:24] VITALS: BP 132/79; PULSE 93; RESP 17; TEMP 37.1; O2SAT 97
[2020-05-27] MEDS: methADONE HCL (*CRX) 10 MG TABLET PO ×3 (09:18→16:37)
[2020-05-27 09:19] VITALS: RESP 18; O2SAT 96
[2020-05-27] MEDS: FOLIC ACID 1 MG TABLET PO (09:19)
[2020-05-27] MEDS: HYDROXYUREA (*CHEMO) 500 MG CAPSULE PO ×2 (09:19→16:37)
[2020-05-27 11:00] VITALS: TEMP 37.1
--- NOTE | 2020-05-27 11:11 | PM.IMPN ---
Progress Note: A&P Assessment and Plan (1) Sickle-cell disease with pain: Code(s): D57.00 - Hb-SS disease with crisis, unspecified Status: Acute Assessment and Plan: Labs are similar to previous hospital stays with normal LDH. Dr. Marks consulted and appreciate recommendations. Patient has been placed on IV dilaudid 3 mg Q3 hr and home methadone per Dr. Marks recommendations. Pain stable from yesterday but patient reluctant to switch to his oral medications; this was highly encouraged today in anticipation to be discharged soon Continue pain medication regimen per Dr. Marks recommendations; will defer further adjustments to Dr. Marks As above, encouraged transitioning to oral pain meds as soon as tolerable. Monitor Await further rec from Dr. Marks (2) Sickle cell disease, type SC: Qualifiers: Sickle-cell associated disorders: without crisis Qualified Code(s): D57.20 - Sickle-cell/Hb-C disease without crisis Code(s): D57.20 - Sickle-cell/Hb-C disease without crisis Status: Chronic Assessment and Plan: Please see above a/p. Follows Dr. Marks as an outpatient. (3) Subtherapeutic international normalized ratio (INR): Code(s): R79.1 - Abnormal coagulation profile Status: Acute Assessment and Plan: INR 2.0 today. Patient states he was unable to fill his script for warfarin late last week and thus missed several doses. Continue home warfarin regimen Monitor INR (4) Chronic narcotic use: Code(s): F11.90 - Opioid use, unspecified, uncomplicated Status: Chronic Assessment and Plan: During stay, we discussed his chronic narcotic use and recommended he discuss tapering his narcotics as an outpatient to avoid tolerance (5) Sore throat: Code(s): J02.9 - Acute pharyngitis, unspecified Status: Acute Assessment and Plan: Patient now reports sore throat that started yesterday evening. Reports odynophagia, but no dysphagia or difficulty breathing. No muffled voice. Tonsils mildly enlarged. Patient is afebrile. Centor score is 1-2, making strep throat unlikely but will obtain rapid strep test. Could very well be viral pharyngitis. Other differential diagnoses include periodontal or peritonsillar abscess, laryngitis, or possibly COVID, although unlikely at this point. Of note, patient reports recently completing a course of penicillin prescribed by his oral surgeon/dentist for unclear reasons related to his right lower molar. Will do rapid strep swab Monitor for now Consider further diagnostics/imaging if this worsens Subjective Date/time seen: 05/27/20 11:11 Interval history: Patient is a 35 yo M well known to this hospitalist service with history of SC disease type SC, past VTEs, chronic a/c with warfarin, chronic narcotic use who is seen in follow up for sickle cell related pain. Patient states pain was getting better, but then got worse yesterday evening when his throat started hurting; this provoked his sickle cell pain. He now has pain when swallowing but denies difficulty swallowing or breathing. He points to his b/l neck just below the jaw line as area of pain. Denies cough, sick contacts. He reports having strep throat roughly 2-3 years ago. Still has tonsils. Denies f/c. No other complaints. He does note having recently finished a course of penicillin for what sounds like a possible dental abscess from his oral surgeon/dentist; he plans to return to his oral surgeon/dentist within a week for f/u. Currently denies f/c/s, headaches, dizziness, lightheadedness, current cp/palpitations, sob/cough, n/v/d/c, abd pain, changes in BMs, dysuria, hematuria, cloudy urine, calf pain/swelling. Review of Systems Review of Systems: All systems reviewed &
[2020-05-27 14:20] VITALS: BP 120/69; PULSE 93; RESP 16; TEMP 36.7; O2SAT 97
--- NOTE | 2020-05-27 14:34 | PC.NURSE ---
On 05/27/20, the student, [ Garcia Armas], provided care and completed [email or web address] documentation on this patient. I have reviewed the student's documentation and agree with the findings.
[2020-05-27] MEDS: WARFARIN (*PBKC) 2 MG TABLET PO (16:37)
[2020-05-27] MEDS: WARFARIN (*PBKC) 10 MG TABLET PO (16:37)
[2020-05-27 22:00] VITALS: BP 129/72; PULSE 91; RESP 16; TEMP 36.3; O2SAT 100
[2020-05-28] MEDS: HYDROmorphone HCL INJ (*CRX) 1 MG/ML SYR 3 MG IV PUSH ×2 (02:02→05:08)
[2020-05-28] MEDS: SODIUM CHLORIDE 0.9% IV 1,000 ML 100 ML IV CONT ×2 (05:09→15:36)
[2020-05-28 05:32] VITALS: BP 142/80; PULSE 79; RESP 16; TEMP 36.9; O2SAT 100
[2020-05-28 05:52] LABS: Immature Reticulocyte Fraction 19.4 % (3.0-15.9); Reticulocyte Hemoglobin Conten 31.7 pg (28.2-35.7); Reticulocyte Percent 4.56 % (0.7-4.3); Reticulocytes Absolute 0.15 B/L (32.2-175.7)
[2020-05-28 06:00] LABS: INR 2.3; Prothrombin Time 26.2 Seconds (11.1-14.7)
[2020-05-28 06:01] LABS: Basophils Absolute Auto 0.1 K/mm3 (0.0-0.1); Basophils Percent Auto 0.5 % (0.2-1.2); Eosinophils Absolute Auto 0.7 K/mm3 (0-0.3); Eosinophils Percent Auto 4.5 % (0-4.4); Hematocrit 29.8 % (42.0-52.0); Hemoglobin 10.7 g/dL (14.0-18.0); Immature Granulocyte Absolute 0.04 K/mm3 (0.00-0.031); Immature Granulocyte Percent A 0.3 % (0-0.5); Lymphocytes Absolute Auto 3.58 K/mm3 (0.9-3.2); Lymphocytes Percent Auto 23.9 % (18.3-44.2); Mean Corpuscular HGB Conc 35.9 g/dl (32-36); Mean Corpuscular Hemoglobin 32.2 pg (26-34); Mean Corpuscular Volume 89.8 fl (80-100); Mean Platelet Volume 10.5 fl (7.4-10.4); Monocytes Absolute Auto 1.2 K/mm3 (0.1-0.6); Monocytes Percent Auto 7.9 % (2.6-8.5); Neutrophils Absolute Auto 9.4 K/mm3 (1.3-6.7); Neutrophils Percent Auto 62.9 % (45.5-73.1); Platelet Count Result 321 k/mm3 (150-375); Red Blood Count 3.32 M/mm3 (4.6-6.20); Red Cell Distribution Width 13.8 % (11.5-14.5)
[2020-05-28 06:04] LABS: Lactate Dehydrogenase 572 U/L (313-618)
[2020-05-28] MEDS: HYDROXYUREA (*CHEMO) 500 MG CAPSULE PO ×2 (08:22→17:50)
[2020-05-28] MEDS: oxyCODONE/ACETAMINOPHEN (*CRX) 5-325 MG TABLET 1 TABLET PO ×4 (08:22→22:14)
[2020-05-28] MEDS: FOLIC ACID 1 MG TABLET PO (08:22)
[2020-05-28] MEDS: oxyCODONE HCL (*CRX) 5 MG TAB IR PO ×4 (08:23→22:15)
[2020-05-28] MEDS: methADONE HCL (*CRX) 10 MG TABLET PO ×3 (08:26→17:50)
--- NOTE | 2020-05-28 09:16 | PM.IMPN ---
Progress Note: A&P Assessment and Plan (1) Sickle-cell disease with pain: Code(s): D57.00 - Hb-SS disease with crisis, unspecified Status: Acute Assessment and Plan: Labs are similar to previous hospital stays with normal LDH. Dr. Marks consulted and appreciate recommendations. Patient placed on IV dilaudid 3 mg Q3 hr and home methadone per Dr. Marks recommendations from the ED. Transitioned him to his home oral regimen today; patient stating pain is not getting better however minimally abnormal labs appear to be improved. Will continue oral home regimen Possible discharge today or tomorrow if tolerated Await further rec from Dr. Marks (2) Sickle cell disease, type SC: Qualifiers: Sickle-cell associated disorders: without crisis Qualified Code(s): D57.20 - Sickle-cell/Hb-C disease without crisis Code(s): D57.20 - Sickle-cell/Hb-C disease without crisis Status: Chronic Assessment and Plan: Please see above a/p. Follows Dr. Marks as an outpatient. (3) Subtherapeutic international normalized ratio (INR): Code(s): R79.1 - Abnormal coagulation profile Status: Acute Assessment and Plan: INR 2.3 today. Patient states he was unable to fill his script for warfarin late last week and thus missed several doses. Continue home warfarin regimen Monitor INR (4) Chronic narcotic use: Code(s): F11.90 - Opioid use, unspecified, uncomplicated Status: Chronic Assessment and Plan: During stay, we discussed his chronic narcotic use and recommended he discuss tapering his narcotics as an outpatient to avoid tolerance (5) Sore throat: Code(s): J02.9 - Acute pharyngitis, unspecified Status: Acute Assessment and Plan: Patient now reports sore throat that started on 05/26. Reports odynophagia, but no dysphagia or difficulty breathing. No muffled voice. Tonsils mildly enlarged. Patient is afebrile. Centor score is 1-2, rapid strep negative. Could very well be viral pharyngitis. Other differential diagnoses include periodontal or peritonsillar abscess, laryngitis, or possibly COVID, although unlikely at this point. Of note, patient reports recently completing a course of penicillin prescribed by his oral surgeon/dentist for unclear reasons related to his right lower molar. Monitor for now Supportive care Consider further diagnostics/imaging if this worsens Subjective Date/time seen: 05/28/20 09:16 Interval history: Patient is a 35 yo M well known to this hospitalist service with history of SC disease type SC, past VTEs, chronic a/c with warfarin, chronic narcotic use who is seen in follow up for sickle cell related pain. Patient states pain is about the same as yesterday. It was described that his lab values are improved to a level that has not been seen in quite sometime, and was transitioned to his home PO medication this morning which he states does not seem to help his pain. In fact, he then goes on to ask for his home medication to be scheduled with specifically asking for dilaudid 2 mg in between his doses of home regimen. This was declined as it was explained this would be too much narcotics increasing risk for overdose. He was encouraged to trial on his home oral dose which is similar MME to the IV dilaudid regimen he was on yesterday. Patient reluctant but agreeable. In regards to his sore throat, he noted that he has a child at home who has similar symptoms. He has mild odynophagia but able to tolerate small snacks. No other associated symptoms such as cough, congestion, rhinorrhea, diarrhea. No contacts with COVID at home. Currently denies f/c/s, headaches, dizziness, lightheadedness, current cp/palpitations, n/v, abd pain, changes in BMs, dysuria, hematur
--- NOTE | 2020-05-28 13:37 | PC.NURSE ---
Patient had 1300 Methadone due. Upon entering room, patient sleeping/snoring. Had to awaken patient in order to give scheduled Methadone. After receiving methadone, patient states Is the doctor still here? Can you tell him my pain is still an 8. I stated to him that he appeared comfortable when I entered the room as he was sleeping. He stated he was still hurting and requesting more pain medication. He was available to receive PRN Oxycodone which was then administered.
[2020-05-28 14:00] VITALS: BP 135/78; PULSE 83; RESP 14; TEMP 36.4; O2SAT 99
--- NOTE | 2020-05-28 15:44 | PC.NURSE ---
Patient IVF empty and bag needing changed. Upon entering room, patient appears comfortable and relaxing watching TV. After changing IVF, patient requesting I call hospitalist to ask for more pain medications. Patient states his pain is at an 8 and not improving with Percocet. Called to notify [facility]. Per Saul, we are continuing with regimen to see if he can tolerate it over night.
[2020-05-28] MEDS: WARFARIN (*PBKC) 10 MG TABLET PO (17:50)
[2020-05-28] MEDS: WARFARIN (*PBKC) 2 MG TABLET PO (17:51)
[2020-05-28 21:13] VITALS: BP 140/86; PULSE 99; RESP 16; TEMP 36.2; O2SAT 100
[2020-05-29] MEDS: SODIUM CHLORIDE 0.9% IV 1,000 ML 100 ML IV CONT ×2 (00:35→10:54)
[2020-05-29] MEDS: HYDROmorphone HCL INJ (*CRX) 1 MG/ML SYR 3 MG IV PUSH ×4 (00:44→10:51)
[2020-05-29 05:51] VITALS: BP 140/88; PULSE 80; RESP 16; TEMP 36.1; O2SAT 97
[2020-05-29 06:23] LABS: Basophils Absolute Auto 0.1 K/mm3 (0.0-0.1); Basophils Percent Auto 0.8 % (0.2-1.2); Eosinophils Absolute Auto 0.7 K/mm3 (0-0.3); Eosinophils Percent Auto 5.9 % (0-4.4); Hematocrit 29.8 % (42.0-52.0); Hemoglobin 10.6 g/dL (14.0-18.0); Immature Granulocyte Absolute 0.04 K/mm3 (0.00-0.031); Immature Granulocyte Percent A 0.4 % (0-0.5); Immature Reticulocyte Fraction 22.3 % (3.0-15.9); Lymphocytes Absolute Auto 3.51 K/mm3 (0.9-3.2); Lymphocytes Percent Auto 31.1 % (18.3-44.2); Mean Corpuscular HGB Conc 35.6 g/dl (32-36); Mean Corpuscular Hemoglobin 31.7 pg (26-34); Mean Corpuscular Volume 89.2 fl (80-100); Mean Platelet Volume 9.9 fl (7.4-10.4); Monocytes Percent Auto 8.4 % (2.6-8.5); Neutrophils Percent Auto 53.4 % (45.5-73.1); Nucleated Red Blood Cells Perc 0.2 % (0.0-0.2); Platelet Count Result 334 k/mm3 (150-375); Red Blood Count 3.34 M/mm3 (4.6-6.20); Reticulocyte Hemoglobin Conten 31.9 pg (28.2-35.7); Reticulocyte Percent 3.77 % (0.7-4.3); Reticulocytes Absolute 0.13 B/L (32.2-175.7); White Blood Count 11.3 K/mm3 (4.5-10.0)
[2020-05-29 06:36] LABS: Lactate Dehydrogenase 558 U/L (313-618)
[2020-05-29 06:43] LABS: Platelet Estimate Adequate (Adequate)
[2020-05-29 06:44] LABS: Target Cells 2+ (NORMAL)
[2020-05-29 06:45] LABS: Polychromasia 1+ (NORMAL); Sickle Cells 2+ (NORMAL)
[2020-05-29 07:27] LABS: INR 2.6; Prothrombin Time 28.1 Seconds (11.1-14.7)
--- NOTE | 2020-05-29 07:27 | PC.NURSE ---
Patient requesting more IV Dilaudid. Per night RN, patient was switched from oral pain medication back to IV pain meds. Called to hospitalist to see what the plan was for patients regimen today. Per Saul, he requested I contact Dr. Marks for pain management. Called to Dr. Marks and Kendrick stated to continue patient on IV Dilaudid while in the hospital. He also stated that we do not need to switch him over to PO pain medication prior to discharge and to continue Dilaudid until patient goes home.. Will update hospitalist.
[2020-05-29] MEDS: FOLIC ACID 1 MG TABLET PO (08:36)
[2020-05-29] MEDS: HYDROXYUREA (*CHEMO) 500 MG CAPSULE PO (08:36)
[2020-05-29] MEDS: methADONE HCL (*CRX) 10 MG TABLET PO (08:36)
--- NOTE | 2020-05-29 10:40 | PC.NURSE ---
Patient received previous dose of Dilaudid at 0741. Pt called at 1040 to receive another IV shot. Patient appears comfortable in room, resting watching TV. However, he still rates pain 7/10. Administered Dilaudid per parameters.
--- NOTE | 2020-05-29 10:50 | PM.DS ---
DS: Admitting Diagnosis Admitting Diagnosis Admitting Diagnosis: Sickle cell pain DS: Discharge Diagnosis Discharge Diagnosis (1) Sickle-cell disease with pain: Code(s): D57.00 - Hb-SS disease with crisis, unspecified Status: Acute Assessment and Plan: Labs are similar to previous hospital stays with normal LDH. Dr. Marks consulted and appreciate recommendations. Attempted to transition to home PO meds yesterday and patient was unable to tolerate and was placed back on IV dilaudid per Dr. Marks. He specifically tells me today that he would like one more dose of dilaudid then trial one dose of PO narcotics, then he will see if he is ready for discharge today after that if he tolerates that. RN received instructions from Dr. Marks that he does not have to transition to PO meds prior to discharge Will discharge today Instructed RN to contact Dr. Marks for any further narcotic orders as I am hesitant to adjust medications. Please see previous follow up note (05/28) F/u with with Dr. Marks (2) Sickle cell disease, type SC: Qualifiers: Sickle-cell associated disorders: without crisis Qualified Code(s): D57.20 - Sickle-cell/Hb-C disease without crisis Code(s): D57.20 - Sickle-cell/Hb-C disease without crisis Status: Chronic Assessment and Plan: Please see above a/p. Follows Dr. Marks as an outpatient. (3) Subtherapeutic international normalized ratio (INR): Code(s): R79.1 - Abnormal coagulation profile Status: Acute Assessment and Plan: INR 2.6 today. Patient states he was unable to fill his script for warfarin late last week and thus missed several doses. Continue home warfarin regimen Monitor INR as outpatient per Dr. Marks recommendations (4) Chronic narcotic use: Code(s): F11.90 - Opioid use, unspecified, uncomplicated Status: Chronic Assessment and Plan: During stay, we discussed his chronic narcotic use and recommended he discuss tapering his narcotics as an outpatient to avoid tolerance. He is to discuss further with Dr. Marks who manages his narcotics. Please also see previous progress note (05/28) on drug seeking behavior observed during this hospital visit. (5) Sore throat: Code(s): J02.9 - Acute pharyngitis, unspecified Status: Acute Assessment and Plan: Patient now reports sore throat that started on 05/26. Reports odynophagia, but no dysphagia or difficulty breathing. No muffled voice. Tonsils mildly enlarged. Patient is afebrile. Centor score is 1-2, rapid strep negative. Leukocytosis elevated likely related to SC dz. Could very well be viral pharyngitis. Other differential diagnoses include periodontal or peritonsillar abscess, laryngitis, or possibly COVID, although unlikely at this point. Of note, patient reports recently completing a course of penicillin prescribed by his oral surgeon/dentist for unclear reasons related to his right lower molar. Monitor for now Supportive care Consider further diagnostics/imaging if this worsens DS: Summary Hospital Course Reason for hospitalization: Sickle Cell pain, chronic narcotic use Hospital Course: Date of arrival: 05/25/20 Date of discharge: 05/29/20 Patient is a 35 yo M with sickle cell disease SC, chronic pain syndrome, and history of pulmonary embolism on warfarin, who is well known to the Hospitalist Service who presented to the emergency department on 05/25 from home with complaints of sickle cell pain. Patient had been taking his home narcotics as prescribed without relief of his pain. While in the ED, pain was improved with IV Dilaudid and IV fluids. Lab findings for sickle cell were at his baseline compared to other hospital stay. Dr. Marks was consulted for further input/ramya
--- NOTE | 2020-05-29 12:38 | PC.NURSE ---
Spoke with Dr. Marks in regards to discharge. He was notified that patient has received Dilaudid over night, last dose being at 1050AM. Patient requesting Oxycodone at this time and stating he feels as though he could go home. Per Dr. Marks, it is okay to discharge him and resume his normal home regimen.
[2020-05-29] MEDS: oxyCODONE HCL (*CRX) 5 MG TAB IR PO (12:42)
[2020-05-29] MEDS: oxyCODONE/ACETAMINOPHEN (*CRX) 5-325 MG TABLET 1 TABLET PO (12:42)
[2020-05-29 14:00] VITALS: BP 134/89; PULSE 100; RESP 16; TEMP 35.7; O2SAT 99
== END 2020-05-29 14:26 | disposition home or self-care (01) | DRG 662 ==
LOC: ANHED 17:04 → ANH2MED 17:41
PROVIDERS: Physician Assistant; Admitting Provider Family Medicine; Emergency Provider General Practice; PCP Internal Medicine Hematology & Oncology; Visit Provider Internal Medicine
DX: D57.00 Hb-SS disease with crisis, unspecified (principal); R79.1 Abnormal coagulation profile; Z91.14 Patient's other noncompliance with medication regimen; Z79.01 Long term (current) use of anticoagulants; F11.90 Opioid use, unspecified, uncomplicated; J02.9 Acute pharyngitis, unspecified; Z86.718 Personal history of other venous thrombosis and embolism; Z86.711 Personal history of pulmonary embolism
CPT/HCPCS: 36415; 71045; 80048; 80053; 81001; 83615; 83721; 83735; 85025; 85027; 85044; 85046; 85055; 85610; 87081; 87880; 96361; 96374; 96375; 96376; 99285; A9270; G0378; G0379; J1170; J1885; J7030

== ENCOUNTER 2020-06-25 21:43 | Emergency (ER) | payer OTHER, SELFPAY ==
--- NOTE | ~2020-06-25 | XR_ITS ---
EXAMINATION: XR chest 1V portable DATE: 06/25/2020 22:35 INDICATION: Chest pain. Sickle cell disease. TECHNIQUE: A single frontal view of the chest was obtained. COMPARISON: Chest single views 05/24/2020 FINDINGS: There are chronic interstitial opacities in the lower lung zones. No pleural effusion or pn eumothorax. The heart size is normal. IMPRESSION: 1. Stable interstitial opacities in the lower lung zones, consistent with sickle cell chronic lung di sease. Reviewed, dictated and finalized at location A. IMPRESSION: 1. Stable interstitial opacities in the lower lung zones, consistent with sickl e cell chronic lung disease.
[2020-06-25 21:45] VITALS: BP 134/81; PULSE 97; RESP 16; TEMP 36.2; O2SAT 96
--- NOTE | 2020-06-25 22:19 | ECG_ITS ---
Measurements Intervals [place] Rate: 83 P: 29 UT: 178 QRS: 1 QRSD: 100 T: -8 QT: 379 QTc: 447 Interpretive Statements SINUS RHYTHM NONSPECIFIC T-WAVE ABNORMALITY- ANT/INF LEADS BORDERLINE ECG Electronically Signed On 06-26-2020 8:21:00 CDT by Ricky Modi D.O.
[2020-06-25] MEDS: ONDANSETRON INJ 4 MG/2 ML VIAL IV PUSH (23:26)
[2020-06-25] MEDS: KETOROLAC 30 MG/ML VIAL (*BKC) IV PUSH (23:26)
[2020-06-25] MEDS: HYDROmorphone HCL INJ (*CRX) 1 MG/ML SYR IV PUSH (23:26)
--- NOTE | 2020-06-25 23:27 | ED.GENADULT ---
HPI - General Adult General Chief complaint: Unspecified Stated complaint: sickle cell crisis Time Seen by Provider: 06/25/20 22:18 History of Present Illness HPI narrative: Patient a 35-year-old gentleman who presents the emergency department with chief complaint of sickle cell pain. The patient reports he has a long running history of sickle cell disease and the weather changed recently and that is triggered his pain. Patient states his pain is worse in his right shoulder reports this is typical crisis. Patient was recently admitted to the hospital and required significant amounts of narcotic pain medications but did not have significant laboratory abnormalities. Related Data Home Medications Medication Instructions Recorded Confirmed folic acid 1 mg PO DAILY 02/16/19 05/24/20 hydroxyurea [Hydrea] 500 mg PO BID 02/16/19 05/24/20 oxycodone-acetaminophen 1 tablet PO Q4H PRN 11/08/19 05/24/20 warfarin 2 mg PO DAILY 11/08/19 05/24/20 methadone 10 mg PO TID 11/09/19 05/24/20 Allergies Allergy/AdvReac Type Severity Reaction Status Date / Time Fish Containing Products Allergy Intermediate Itching Verified 05/24/20 18:27 Review of Systems Review of Systems: Narrative: A 10 system review of systems was completed on the patient and is negative except for what is stated in the HPI. Nursing and ancillary documentation was reviewed. [facility] Past Medical History Medical History Acute chest syndrome Chronic anticoagulation Due to history of DVT and pulmonary embolism. Chronic narcotic use On methadone with oxycodone for chronic pain related to his sickle cell disease. Deep venous thrombosis Noncompliance History of noncompliance with anticoagulation and hydroxyurea. Pulmonary embolism Sickle cell disease, type SC Surgical History Surgical History History of hand surgery Tendon surgery on right 5th finger. Family History Family History Grandparent Acute myocardial infarction Diabetes mellitus Sibling Asthma Sibling Asthma Mother Hypertension Son Sickle cell trait Daughter Sickle cell trait Grandparent No problems noted. Other Diabetes mellitus Social History Social History Social History: The patient lives in [place] with his family. He is on disability due to sickle cell disease and chronic pain. He designates his friend, Keyla Luther, as his surrogate decision maker and he wishes to be a full code. He is a lifelong nonsmoker and denies alcohol and drug use. The patient has 2 children who have the sickle cell trait. Smoking status: Never smoker Alcohol intake: never Substance use: former Substance use type: marijuana Additional occupation/education comments: Gender identity (if verbalized by the patient): Male Spiritual care concerns: No Agree to blood products: Yes Exam Narrative: Exam Narrative: GENERAL: Well-appearing, well-nourished, and in no acute distress. HEAD: Normocephalic, atraumatic. EYES: PERRLA and EOMI. ENT: Nares clear, no rhinorrhea or epistaxis. Mucous membranes moist. NECK: Supple. CHEST: Clear to auscultation. No respiratory distress. HEART: Regular rate and rhythm. No murmur heard. Normal peripheral pulses. ABDOMEN: Soft, nontender, nondistended, normal active bowel sounds. EXTREMITIES: Normal range of motion. No edema. SKIN: Warm, dry, no rash. NEURO: No focal deficits. Alert and oriented x3. PSYCH: Normal mood and affect. Course Vital Signs Vital signs: Vital Signs Temperature 36.2 C L 06/25/20 21:45 Pulse Rate 97 06/25/20 21:45 Respiratory Rate 16 06/25/20 21:45 Blood Pressure 134/81 06/25/20 21:45 Pulse Oximetry 96 06/25/20 21:45 Temperature 36.2 C L 06/25
[2020-06-25 23:36] LABS: Basophils Absolute Auto 0.1 K/mm3 (0.0-0.1); Eosinophils Absolute Auto 0.3 K/mm3 (0-0.3); Eosinophils Percent Auto 3.4 % (0-4.4); Hematocrit 29.5 % (42.0-52.0); Hemoglobin 10.6 g/dL (14.0-18.0); Immature Granulocyte Absolute 0.08 K/mm3 (0.00-0.031); Immature Granulocyte Percent A 0.8 % (0-0.5); Immature Platelet Fraction Pct 4.7 % (0.9-11.2); Immature Reticulocyte Fraction 33.6 % (3.0-15.9); Lymphocytes Absolute Auto 4.98 K/mm3 (0.9-3.2); Mean Corpuscular HGB Conc 35.9 g/dl (32-36); Mean Corpuscular Volume 89.1 fl (80-100); Monocytes Absolute Auto 0.7 K/mm3 (0.1-0.6); Monocytes Percent Auto 6.7 % (2.6-8.5); Neutrophils Absolute Auto 3.6 K/mm3 (1.3-6.7); Neutrophils Percent Auto 37.1 % (45.5-73.1); Nucleated Red Blood Cells Perc 0.3 % (0.0-0.2); Platelet Count Result 309 k/mm3 (150-375); Red Blood Count 3.31 M/mm3 (4.6-6.20); Reticulocyte Hemoglobin Conten 33.8 pg (28.2-35.7); Reticulocyte Percent 4.39 % (0.7-4.3); Reticulocytes Absolute 0.15 B/L (32.2-175.7); White Blood Count 9.8 K/mm3 (4.5-10.0)
[2020-06-25 23:44] LABS: INR 1.7; Prothrombin Time 20.2 Seconds (11.1-14.7)
[2020-06-25 23:45] LABS: Partial Thromboplastin Time 30.2 SECONDS (22.3-36.8); Platelet Estimate Adequate (Adequate)
[2020-06-25 23:46] LABS: Hypochromasia 1+ (NORMAL); Lactic Acid Reflex 0.9 mmol/L (0.7-2.1); Macrocytosis 2+ (NORMAL); Polychromasia 1+ (NORMAL); Target Cells 1+ (NORMAL)
[2020-06-25 23:57] LABS: Alanine Aminotransferase 18 U/L (4-50); Albumin Level 4.3 g/dL (3.5-5.1); Alkaline Phosphatase 89 U/L (38-126); Anion Gap 8 mmol/L (8-16); Aspartate Amino Transferase 45 U/L (17-59); Bilirubin,Total 1.1 mg/dL (0.2-1.3); Blood Urea Nitrogen 6 mg/dL (9-20); Calcium 8.5 mg/dL (8.4-10.2); Carbon Dioxide 25 mmol/L (22-30); Chloride 107 mmol/L (98-107); Estimated CRCL calculation 117 ml/min; Estimated Glomerular Filt Rate > 60; Glucose 98 mg/dL (75-110); Potassium 4.3 mmol/L (3.4-5.0); Sodium 140 mmol/L (137-145)
[2020-06-25 23:59] LABS: Troponin I < 0.012 ng/mL (0.000-0.034)
[2020-06-26 00:58] VITALS: BP 124/87; PULSE 87; RESP 16; TEMP 36.8; O2SAT 96
== END 2020-06-26 01:05 | disposition home or self-care (01) ==
PROVIDERS: Emergency Provider Emergency Medicine; PCP Internal Medicine Hematology & Oncology
DX: D57.219 Sickle-cell/Hb-C disease with crisis, unspecified (principal); Z86.718 Personal history of other venous thrombosis and embolism; Z86.711 Personal history of pulmonary embolism; Z79.01 Long term (current) use of anticoagulants; R94.31 Abnormal electrocardiogram [ECG] [EKG]
CPT/HCPCS: 36415; 71045; 80053; 83605; 84484; 85025; 85046; 85055; 85610; 85730; 93005; 96374; 96375; 99284; J1170; J1885; J2405; J7030

== ENCOUNTER 2020-07-24 10:22 | Emergency (ER) | payer OTHER, SELFPAY ==
--- NOTE | ~2020-07-24 | XR_ITS ---
EXAMINATION: XR chest 2V EXAM DATE: 07/24/2020 12:54 INDICATION: Cough, sickle cell crisis. TECHNIQUE: Frontal and lateral projections of the chest obtained and reviewed. Comparison is made to prior examination from 06/25/2020, 05/24/2020. FINDINGS: No interval change in the bibasilar linear opacities, appearance most consistent with bibas ilar scarring. No evidence of superimposed acute airspace disease. No pneumothorax or pleural effusio n. Cardiomediastinal silhouette is normal. There are no osseous abnormalities identified. IMPRESSION: 1. Chronic basilar scarring. Reviewed, dictated and finalized at location A.
[2020-07-24 10:57] VITALS: BP 127/76; PULSE 77; RESP 20; TEMP 36.8; O2SAT 97
--- NOTE | 2020-07-24 11:59 | ECG_ITS ---
Measurements Intervals [place] Rate: 77 P: 8 LA: 171 QRS: 29 QRSD: 86 T: -6 QT: 348 QTc: 394 Interpretive Statements SINUS RHYTHM BORDERLINE ST-T WAVE ABNORMALITY- ANT/INF LEADS BASELINE ARTIFACT- I, II, AVR BORDERLINE ECG Electronically Signed On 07-24-2020 14:32:16 CDT by Ricky Modi D.O.
--- NOTE | 2020-07-24 12:21 | ED.GENADULT ---
HPI - General Adult General Chief complaint: Unspecified Stated complaint: SICKLE CELL CRISIS Time Seen by Provider: 07/24/20 12:09 Source: patient Mode of arrival: ambulatory Limitations: no limitations History of Present Illness HPI narrative: Patient is a 35-year-old male complaining of sickle cell pain that started today. Patient states that he is hurting all over, upper and lower extremity. Patient states that this is his typical pain crisis. Patient denies any chest pain, shortness of breath, abdominal pain, nausea, vomiting, diarrhea, fever or chills. Multiple ER visits for the same complaints. Related Data Home Medications Medication Instructions Recorded Confirmed folic acid 1 mg PO DAILY 02/16/19 05/24/20 hydroxyurea [Hydrea] 500 mg PO BID 02/16/19 05/24/20 oxycodone-acetaminophen 1 tablet PO Q4H PRN 11/08/19 05/24/20 warfarin 2 mg PO DAILY 11/08/19 05/24/20 methadone 10 mg PO TID 11/09/19 05/24/20 Allergies Allergy/AdvReac Type Severity Reaction Status Date / Time Fish Containing Products Allergy Intermediate Itching Verified 07/24/20 11:00 Review of Systems Review of Systems: All systems reviewed & are unremarkable except as noted in HPI and below Constitutional: Constitutional: Denies body ache(s), Denies chills, Denies excessive sweating, Denies fatigue, Denies fever(s), Denies headache(s), Denies lethargy, Denies malaise, Denies weakness and Denies weight loss Eyes: Eyes: Denies blurry vision, Denies change in vision and Denies loss of vision ENT: Denies dizziness, Denies ear discharge, Denies headache(s), Denies lip swelling, Denies epistaxis, Denies nasal congestion, Denies neck pain, Denies throat swelling and Denies tongue swelling Cardiovascular: Cardiovascular: Denies chest pain, Denies chest pain at rest, Denies chest pain with activity, Denies diaphoresis, Denies rapid heart rate, Denies edema, Denies irregular heart rhythm, Denies lightheadedness, Denies palpitations, Denies dyspnea and Denies dyspnea on exertion Respiratory: Respiratory: Denies chest congestion, Denies cough, Denies hemoptysis, Denies dyspnea and Denies dyspnea on exertion Gastrointestinal: Gastrointestinal: Denies abdominal pain, Denies melena, Denies hematochezia, Denies diarrhea, Denies nausea, Denies vomiting and Denies hematemesis Musculoskeletal: Musculoskeletal: Denies abnormal gait, Denies deformity, Denies joint swelling, Denies limited range of motion, Denies neck pain and Denies numbness Neurologic: Denies Abnormal speech present, Denies abnormal gait, Denies confusion, Denies dizziness, Denies headache(s), Denies focal weakness, Denies loss of vision, Denies numbness, Denies Other visual disturbances, Denies Sensory deficit (Neuro) and Denies weakness Psychiatric: Psychiatric: Denies confusion, Denies depression, Denies auditory hallucinations, Denies homicidal ideation and Denies suicidal ideation Endocrine: Endocrine: Denies cold intolerance, Denies excessive sweating, Denies fatigue, Denies heat intolerance and Denies palpitations Hematologic/Lymphatic: Hematologic/Lymphatic: Denies easy bleeding and Denies easy bruising Allergic/Immunologic: Allergic/Immunologic: Denies lip swelling, Denies throat swelling and Denies tongue swelling PMFSH Past Medical History Medical History Acute chest syndrome Chronic anticoagulation Due to history of DVT and pulmonary embolism. Chronic narcotic use On methadone with oxycodone for chronic pain related to his sickle cell disease. Deep venous thrombosis Noncompliance History of noncompliance with anticoagulation and hydroxyurea. Pulmonary embolism Sickle cell disease, type SC Surgical History Surgical History History of hand surgery Tendon surgery on right 5th finger. Family History Family History Grandp
[2020-07-24 12:46] LABS: Basophils Absolute Auto 0.1 K/mm3 (0.0-0.1); Basophils Percent Auto 0.8 % (0.2-1.2); Eosinophils Absolute Auto 0.1 K/mm3 (0-0.3); Eosinophils Percent Auto 1.7 % (0-4.4); Hemoglobin 11.6 g/dL (14.0-18.0); Immature Granulocyte Absolute 0.01 K/mm3 (0.00-0.031); Immature Granulocyte Percent A 0.1 % (0-0.5); Immature Platelet Fraction Pct 6.1 % (0.9-11.2); Immature Reticulocyte Fraction 33.7 % (3.0-15.9); Lymphocytes Absolute Auto 2.84 K/mm3 (0.9-3.2); Lymphocytes Percent Auto 40.1 % (18.3-44.2); Mean Corpuscular HGB Conc 36.3 g/dl (32-36); Mean Corpuscular Hemoglobin 31.5 pg (26-34); Mean Platelet Volume 10.9 fl (7.4-10.4); Monocytes Absolute Auto 0.7 K/mm3 (0.1-0.6); Monocytes Percent Auto 10.3 % (2.6-8.5); Neutrophils Absolute Auto 3.3 K/mm3 (1.3-6.7); Nucleated Red Blood Cells Perc 0.6 % (0.0-0.2); Platelet Count Result 324 k/mm3 (150-375); Red Blood Count 3.68 M/mm3 (4.6-6.20); Red Cell Distribution Width 14.1 % (11.5-14.5); Reticulocyte Hemoglobin Conten 32.9 pg (28.2-35.7); Reticulocyte Percent 5.33 % (0.7-4.3); White Blood Count 7.1 K/mm3 (4.5-10.0)
[2020-07-24 13:01] LABS: Lactate Dehydrogenase 544 U/L (313-618)
[2020-07-24 13:03] LABS: Lactic Acid Reflex 1.4 mmol/L (0.7-2.1)
[2020-07-24 13:08] LABS: Platelet Estimate Adequate (Adequate)
[2020-07-24 13:09] LABS: Add Urine Microscopic? YES; Appearance Urine Clear (Clear); Bilirubin Urine Negative (Negative); Blood Urine Negative (Negative); Color Urine Yellow (Yellow); Glucose Urine UA Negative (Negative); Ketones Urine Negative (Negative); Leukocyte Esterase Ur Negative LEU/UL (Negative); Nitrate Urine Negative (Negative); Protein Urine Negative (Negative); RBC Urine 0-2 /hpf (0-2); Specific Grav Ur 1.013 (1.001-1.035); Squamous Epithelial Cell Urine Rare /hpf (Few); WBC Urine 0-3 /hpf
[2020-07-24 13:09] LABS: Alanine Aminotransferase 18 U/L (4-50); Albumin Level 4.8 g/dL (3.5-5.1); Alkaline Phosphatase 85 U/L (38-126); Anion Gap 9 mmol/L (8-16); Anisocytosis 1+ (NORMAL); Aspartate Amino Transferase 36 U/L (17-59); Blood Urea Nitrogen 6 mg/dL (9-20); CRP 0.5 mg/dL (<1.0); Calcium 9.2 mg/dL (8.4-10.2); Carbon Dioxide 24 mmol/L (22-30); Chloride 109 mmol/L (98-107); Estimated CRCL calculation 148 ml/min; Estimated Glomerular Filt Rate > 60; Glucose 107 mg/dL (75-110); Lipase 82 U/L (23-300); Potassium 4.1 mmol/L (3.4-5.0); Sodium 142 mmol/L (137-145)
[2020-07-24 13:10] LABS: Ovalocytes 1+ (NORMAL); Sickle Cells 1+ (NORMAL); Stomatocytes 1+ (NORMAL); Target Cells 3+ (NORMAL)
--- NOTE | 2020-07-24 14:24 | PC.NURSE ---
multiple attempts to get labs and iv. coworker to use US to gain access
[2020-07-24] MEDS: SODIUM CHLORIDE 0.9% IV 1,000 ML 999 ML IV CONT (14:32)
[2020-07-24] MEDS: KETOROLAC 30 MG/ML VIAL (*BKC) IV PUSH (14:32)
[2020-07-24] MEDS: HYDROmorphone HCL INJ (*CRX) 1 MG/ML SYR IV PUSH (14:32)
[2020-07-24 14:57] LABS: INR 1.1; Prothrombin Time 14.6 Seconds (11.1-14.7)
[2020-07-24 14:58] LABS: Partial Thromboplastin Time 24.7 SECONDS (22.3-36.8)
[2020-07-24] MEDS: SODIUM CHLORIDE 0.9% IV 50 ML 100 ML (15:17)
[2020-07-24] MEDS: PROMETHAZINE HCL 25 MG/ML AMPUL (15:17)
--- NOTE | 2020-07-24 16:00 | PC.NURSE ---
PT ASKING FOR MORE PAIN MEDICATIONS. PROVIDER STATING NO. PROVIDER TO SPEAK TO THE PT
== END 2020-07-24 16:53 | disposition home or self-care (01) ==
PROVIDERS: Emergency Medicine Emergency Medical Services; Emergency Provider Emergency Medicine; PCP Internal Medicine Hematology & Oncology
DX: D57.219 Sickle-cell/Hb-C disease with crisis, unspecified (principal); Z79.01 Long term (current) use of anticoagulants; Z86.718 Personal history of other venous thrombosis and embolism; Z86.711 Personal history of pulmonary embolism; R94.31 Abnormal electrocardiogram [ECG] [EKG]
CPT/HCPCS: 36415; 71046; 80053; 81001; 83605; 83615; 83690; 85025; 85046; 85055; 85610; 85730; 86140; 93005; 96361; 96374; 96375; 99284; J1170; J1885; J2550; J7030

== ENCOUNTER 2020-07-25 09:47 | Inpatient (IN) | payer OTHER, SELFPAY ==
[2020-07-25] VITALS (49 sets, daily range): BP systolic 117–152; BP diastolic 66–96; PULSE 68–98; RESP 12–21; TEMP 36.3–36.6; O2SAT 94–100; BMI 33.7
--- NOTE | ~2020-07-25 | XR_ITS ---
EXAMINATION: XR chest 1V portable EXAM DATE: 07/29/2020 12:34 INDICATION: Sickle cell crisis. TECHNIQUE: Portable AP frontal chest x-ray was obtained. Comparison is made to prior examination from 07/25/2020. FINDINGS: Chronic scarring at the lung bases again noted. No evidence of superimposed acute airspace disease. No pneumothorax. Possible small right pleural effusion. Cardiomediastinal silhouette is norm al. There are no osseous abnormalities identified. IMPRESSION: 1. Chronic basilar atelectasis/scarring. 2. Possible small right pleural effusion. Reviewed, dictated and finalized at location A.
--- NOTE | ~2020-07-25 | XR_ITS ---
EXAMINATION: XR chest 2V DATE: 07/25/2020 11:10 INDICATION: Shortness of breath TECHNIQUE: AP and lateral views of the chest are obtained. COMPARISON: 07/24/2020 FINDINGS: Chronic scarring is present in the lung bases. The lungs are free of acute opacities. There is no pleural effusion or pneumothorax. The cardiomediastinal silhouette is normal. IMPRESSION: 1. Chronic scarring in the lung bases, consistent with history of sickle cell. Reviewed, dictated and finalized at location B.
--- NOTE | 2020-07-25 10:10 | ECG_ITS ---
Measurements Intervals [place] Rate: 95 P: 27 FL: 151 QRS: 25 QRSD: 86 T: 4 QT: 352 QTc: 444 Interpretive Statements SINUS RHYTHM BORDERLINE ST-T WAVE ABNORMALITY- ANTEROLAT/INF LEADS BASELINE ARTIFACT- I, II, III, AVR, AVL, AVF, V1-V5 BORDERLINE ECG Electronically Signed On 07-25-2020 11:09:18 CDT by Ricky Modi D.O.
[2020-07-25] MEDS: MORPHINE SULFATE (*CRX) 4 MG/ML INJ IV PUSH (10:37)
[2020-07-25] MEDS: ONDANSETRON INJ 4 MG/2 ML VIAL IV PUSH (10:37)
[2020-07-25] MEDS: KETOROLAC 15 MG/ML VIAL (*BKC) IV PUSH (10:37)
[2020-07-25] MEDS: SODIUM CHLORIDE 0.9% IV 1,000 ML 999 ML IV CONT (10:38)
[2020-07-25 11:03] LABS: Basophils Percent Auto 0.5 % (0.2-1.2); Eosinophils Percent Auto 0.4 % (0-4.4); Hematocrit 30.2 % (42.0-52.0); Hemoglobin 10.7 g/dL (14.0-18.0); Immature Granulocyte Absolute 0.03 K/mm3 (0.00-0.031); Immature Granulocyte Percent A 0.4 % (0-0.5); Immature Platelet Fraction Pct 4.9 % (0.9-11.2); Immature Reticulocyte Fraction 30.5 % (3.0-15.9); Lymphocytes Absolute Auto 1.86 K/mm3 (0.9-3.2); Lymphocytes Percent Auto 23.1 % (18.3-44.2); Mean Corpuscular HGB Conc 35.4 g/dl (32-36); Mean Corpuscular Hemoglobin 30.4 pg (26-34); Mean Corpuscular Volume 85.8 fl (80-100); Mean Platelet Volume 10.3 fl (7.4-10.4); Monocytes Absolute Auto 0.6 K/mm3 (0.1-0.6); Monocytes Percent Auto 7.6 % (2.6-8.5); Neutrophils Absolute Auto 5.5 K/mm3 (1.3-6.7); Nucleated Red Blood Cells Perc 0.4 % (0.0-0.2); Platelet Count Result 281 k/mm3 (150-375); Red Blood Count 3.52 M/mm3 (4.6-6.20); Reticulocyte Hemoglobin Conten 33.9 pg (28.2-35.7); Reticulocyte Percent 4.76 % (0.7-4.3); Reticulocytes Absolute 0.17 B/L (32.2-175.7)
[2020-07-25 11:12] LABS: Alanine Aminotransferase 17 U/L (4-50); Albumin Level 4.4 g/dL (3.5-5.1); Alkaline Phosphatase 82 U/L (38-126); Anion Gap 7 mmol/L (8-16); Aspartate Amino Transferase 33 U/L (17-59); Bilirubin,Total 0.9 mg/dL (0.2-1.3); Blood Urea Nitrogen 5 mg/dL (9-20); Calcium 8.9 mg/dL (8.4-10.2); Carbon Dioxide 25 mmol/L (22-30); Chloride 110 mmol/L (98-107); Estimated CRCL calculation 152 ml/min; Estimated Glomerular Filt Rate > 60; Glucose 108 mg/dL (75-110); Lactate Dehydrogenase 576 U/L (313-618); Potassium 3.8 mmol/L (3.4-5.0); Sodium 142 mmol/L (137-145)
--- NOTE | 2020-07-25 11:23 | ED.GENADULT ---
HPI - General Adult General Chief complaint: Unspecified Stated complaint: sickle cell pain Time Seen by Provider: 07/25/20 10:02 Source: patient Mode of arrival: ambulatory Limitations: no limitations History of Present Illness HPI narrative: This is a 35 year old male that presents to the ER for sickle cell pain. Reports he has been having this pain for the last week. The pain is in his back and legs. No recent injuries or illness. He was seen here yesterday for pain. Reports continued pain which prompted him to be seen. His director prospect is Dr. Marks. He has not taken any pain medication today. Also reports he has been feeling short of breath since yesterday. Denies fever, cough, sore throat, abdominal pain, vomiting, or dysuria. Related Data Home Medications Medication Instructions Recorded Confirmed folic acid 1 mg PO DAILY 02/16/19 05/24/20 hydroxyurea [Hydrea] 500 mg PO BID 02/16/19 05/24/20 oxycodone-acetaminophen 1 tablet PO Q4H PRN 11/08/19 05/24/20 warfarin 2 mg PO DAILY 11/08/19 05/24/20 methadone 10 mg PO TID 11/09/19 05/24/20 Allergies Allergy/AdvReac Type Severity Reaction Status Date / Time Fish Containing Products Allergy Intermediate Itching Verified 07/24/20 11:00 Review of Systems Review of Systems: Narrative: CONSTITUTIONAL: Denies fever ENT: Denies congestion, sore throat CARDIOVASCULAR: Denies chest pain, or edema. RESPIRATORY: Reports dyspnea. Denies cough GASTROINTESTINAL: Denies abdominal pain, nausea, vomiting GENITOURINARY: Denies dysuria MUSCULOSKELETAL: Reports back pain, joint pain, and myalgia. NEUROLOGIC: Denies numbness, or weakness. All systems reviewed & are unremarkable except as noted in HPI and below PMFSH Past Medical History Medical History Acute chest syndrome Chronic anticoagulation Due to history of DVT and pulmonary embolism. Chronic narcotic use On methadone with oxycodone for chronic pain related to his sickle cell disease. Deep venous thrombosis Noncompliance History of noncompliance with anticoagulation and hydroxyurea. Pulmonary embolism Sickle cell disease, type SC Surgical History Surgical History History of hand surgery Tendon surgery on right 5th finger. Family History Family History Grandparent Acute myocardial infarction Diabetes mellitus Sibling Asthma Sibling Asthma Mother Hypertension Son Sickle cell trait Daughter Sickle cell trait Grandparent No problems noted. Other Diabetes mellitus Social History Social History Social History: The patient lives in [place] with his family. He is on disability due to sickle cell disease and chronic pain. He designates his friend, Keyla Luther, as his surrogate decision maker and he wishes to be a full code. He is a lifelong nonsmoker and denies alcohol and drug use. The patient has 2 children who have the sickle cell trait. Smoking status: Never smoker Alcohol intake: never Substance use: former Substance use type: marijuana Additional occupation/education comments: Gender identity (if verbalized by the patient): Male Spiritual care concerns: No Agree to blood products: Yes Exam Narrative: Exam Narrative: GENERAL: Well-appearing, well-nourished, and in no acute distress. HEAD: Normocephalic, atraumatic. EYES: PERRLA and EOMI. ENT: Nares clear, no rhinorrhea or epistaxis. Mucous membranes moist. Oropharynx without tonsillar hypertrophy exudate or other lesions. Bilateral TMs pearly smalls non-bulging NECK: Supple. No adenopathy or masses. CHEST: Clear to auscultation. No respiratory distress. No wheezes rales or rhonchi HEART: Regular rate and rhythm. No murmur heard. Normal peripheral pulses. ABDOMEN: Soft, nontender, nondistended, norm
[2020-07-25 12:05] LABS: INR 1.2
[2020-07-25 12:06] LABS: Partial Thromboplastin Time 25.5 SECONDS (22.3-36.8)
[2020-07-25] MEDS: HYDROmorphone HCL INJ (*CRX) 1 MG/ML SYR IV PUSH ×5 (12:08→23:32)
[2020-07-25 12:10] LABS: Hypochromasia 3+ (NORMAL)
[2020-07-25 12:13] LABS: Sickle Cells 1+ (NORMAL); Target Cells 1+ (NORMAL); Tear Drop Cells 1+ (NORMAL)
[2020-07-25 12:16] LABS: Platelet Estimate Adequate (Adequate)
[2020-07-25 12:18] LABS: D Dimer 0.27 ug/mL (<0.48)
[2020-07-25] MEDS: HYDROcodone/acetaminophen (*CRX) 10-325 MG TABLET 1 TAB PO (16:48)
[2020-07-25] MEDS: HYDROmorphone HCL INJ (*CRX) 2 MG/ML VIAL IV PUSH ×2 (20:17→23:32)
[2020-07-25] MEDS: WARFARIN (*PBKC) 10 MG TABLET PO (20:25)
--- NOTE | 2020-07-25 20:34 | PM.IMHP ---
H&P: HPI History of Present Illness Date/Time: 07/25/20 20:34 patient who has a history of sickle cell anemia. He sees Dr. stallings for his sickle cell anemia. The patient is on methadone and oxycodone at home. He has also had a history of having a DVTs in the past and he is subtherapeutic on his Coumadin today. The patient was in the emergency room yesterday but left He was supposed to follow-up with his teen counselor. Instead the patient return back to the emergency room today. I asked the patient if he was going to pain management he stated that Dr. stallings is his pain management. The patient takes his routine home medications including his Hydrea. The patient came in with his typical of back and leg pain. He has no fever no chills. The pain started yesterday. Patient is frequently admitted for these discomfort., IV Tylenol, Toradol, Zofran, morphine, and Dilaudid. Patient's reticular count is 4.76 which is about his baseline. INR is 1.2 the patient stated that he has not taken his Coumadin for 2 days. Date of service of 07/25/2020. Chief Complaint: Sickle cell pain Review of Systems Review of Systems: All systems reviewed & are unremarkable except as noted in HPI and below Constitutional: Constitutional: Reports as per HPI and Reports no additional constitutional complaints Eyes: Eyes: Reports as per HPI and Reports no additional eye complaints ENT: Reports system reviewed and no additional complaints, except as documented and Reports Normal hearing present Cardiovascular: Cardiovascular: Reports no additional cardiovascular complaints Respiratory: Respiratory: Reports no additional respiratory complaints and Reports no additional respiratory complaints Gastrointestinal: Gastrointestinal: Reports as per HPI and Reports no additional gastrointestinal complaints Musculoskeletal: Musculoskeletal: Reports no additional musculoskeletal complaints Integumentary/Breasts: Skin/Breast: Reports system reviewed and no additional complaints, except as docu and Reports as per HPI Neurologic: Reports system reviewed and no additional complaints, except as documented, Reports as per HPI and Reports Normal hearing present Psychiatric: Psychiatric: Reports no additional psychiatric complaints and Reports as per HPI Endocrine: Endocrine: Reports no additional endocrine complaints Hematologic/Lymphatic: Hematologic/Lymphatic: Reports no additional hematologic/lymphatic complaints Allergic/Immunologic: Allergic/Immunologic: Reports no additional allergic/immunologic complaints PMFSH Past Medical History Medical History Acute chest syndrome Chronic anticoagulation Due to history of DVT and pulmonary embolism. Chronic narcotic use On methadone with oxycodone for chronic pain related to his sickle cell disease. Deep venous thrombosis Noncompliance History of noncompliance with anticoagulation and hydroxyurea. Pulmonary embolism Sickle cell disease, type SC Surgical History Surgical History History of hand surgery Tendon surgery on right 5th finger. Family History Family History Grandparent Acute myocardial infarction Diabetes mellitus Sibling Asthma Sibling Asthma Mother Hypertension Son Sickle cell trait Daughter Sickle cell trait Grandparent No problems noted. Other Diabetes mellitus Social History Social History Social History: The patient lives in [place] with his family. He is on disability due to sickle cell disease and chronic pain. He designates his friend, Lidiamishel Ashkan, as his surrogate decision maker and he wishes to be a full code. He is a lifelong nonsmoker and denies alcohol and drug use. The patient has 2 children who have the sickle cell trait. Smoking status: Never sm
[2020-07-25] MEDS: ENOXAPARIN 100 MG/ML SYRINGE SUB-Q (21:55)
[2020-07-26] VITALS (7 sets, daily range): BP systolic 106–145; BP diastolic 68–75; PULSE 70–82; RESP 16–20; TEMP 36.4–36.8; O2SAT 97–100
[2020-07-26] MEDS: SODIUM CHLORIDE 0.9% IV 1,000 ML 100 ML IV CONT ×3 (03:44→20:58)
[2020-07-26] MEDS: HYDROmorphone HCL INJ (*CRX) 1 MG/ML SYR IV PUSH ×5 (03:44→20:58)
[2020-07-26] MEDS: HYDROmorphone HCL INJ (*CRX) 2 MG/ML VIAL IV PUSH ×6 (03:44→20:57)
[2020-07-26 06:25] LABS: Basophils Absolute Auto 0.1 K/mm3 (0.0-0.1); Basophils Percent Auto 0.7 % (0.2-1.2); Eosinophils Absolute Auto 0.2 K/mm3 (0-0.3); Eosinophils Percent Auto 1.9 % (0-4.4); Hematocrit 28.7 % (42.0-52.0); Immature Granulocyte Absolute 0.01 K/mm3 (0.00-0.031); Immature Granulocyte Percent A 0.1 % (0-0.5); Lymphocytes Absolute Auto 3.87 K/mm3 (0.9-3.2); Lymphocytes Percent Auto 45.1 % (18.3-44.2); Mean Corpuscular HGB Conc 34.8 g/dl (32-36); Mean Corpuscular Hemoglobin 30.1 pg (26-34); Mean Corpuscular Volume 86.4 fl (80-100); Mean Platelet Volume 10.2 fl (7.4-10.4); Monocytes Absolute Auto 0.7 K/mm3 (0.1-0.6); Monocytes Percent Auto 8.4 % (2.6-8.5); Neutrophils Absolute Auto 3.8 K/mm3 (1.3-6.7); Neutrophils Percent Auto 43.8 % (45.5-73.1); Platelet Count Result 279 k/mm3 (150-375); Red Blood Count 3.32 M/mm3 (4.6-6.20); Red Cell Distribution Width 13.8 % (11.5-14.5); White Blood Count 8.6 K/mm3 (4.5-10.0)
[2020-07-26 06:38] LABS: Alanine Aminotransferase 15 U/L (4-50); Alkaline Phosphatase 72 U/L (38-126); Anion Gap 5 mmol/L (8-16); Aspartate Amino Transferase 30 U/L (17-59); Bilirubin,Total 0.8 mg/dL (0.2-1.3); Blood Urea Nitrogen 8 mg/dL (9-20); Calcium 8.5 mg/dL (8.4-10.2); Carbon Dioxide 27 mmol/L (22-30); Chloride 110 mmol/L (98-107); Estimated CRCL calculation 152 ml/min; Estimated Glomerular Filt Rate > 60; Glucose 103 mg/dL (75-110); Potassium 3.9 mmol/L (3.4-5.0); Sodium 142 mmol/L (137-145)
[2020-07-26 07:01] LABS: INR 1.4; Prothrombin Time 17.5 Seconds (11.1-14.7)
[2020-07-26] MEDS: ENOXAPARIN 100 MG/ML SYRINGE SUB-Q ×2 (08:13→20:59)
[2020-07-26] MEDS: WARFARIN (*PBKC) 2 MG TABLET PO (08:13)
[2020-07-26] MEDS: FOLIC ACID 1 MG TABLET PO (08:14)
[2020-07-26] MEDS: HYDROXYUREA (*CHEMO) 500 MG CAPSULE PO ×2 (08:14→16:49)
[2020-07-26] MEDS: methADONE HCL (*CRX) 10 MG TABLET PO ×3 (08:24→16:49)
--- NOTE | 2020-07-26 12:24 | PM.IMPN ---
Progress Note: A&P Assessment and Plan (1) Chronic anticoagulation: Code(s): Z79.01 - rn long term care (current) use of anticoagulants Status: Chronic Assessment and Plan: INR is subtherapeutic On therapeutic Lovenox (2) Sickle-cell disease with pain: Code(s): D57.00 - Hb-SS disease with crisis, unspecified Status: Acute Assessment and Plan: Continue hydration Continue pain management (3) Subtherapeutic international normalized ratio (INR): Code(s): R79.1 - Abnormal coagulation profile Status: Acute Assessment and Plan: Restarted on Coumadin Repeat INR in the morning (4) Pulmonary embolism: Code(s): I26.99 - Other pulmonary embolism without acute cor pulmonale Status: Chronic Assessment and Plan: On therapeutic Lovenox (5) Chronic pain syndrome: Code(s): G89.4 - Chronic pain syndrome Status: Chronic Assessment and Plan: Continue pain management (6) Sickle cell anemia with crisis: Code(s): D57.00 - Hb-SS disease with crisis, unspecified Status: Acute Assessment and Plan: Continue pain management and aggressive fluid resuscitation Subjective Date/time seen: 07/26/20 12:24 States that he is feeling better today Review of Systems Review of Systems: Narrative: Patient presented to the emergency room due to acute pain crisis from sickle cell disease he has been in his back ,hips, chest. Constitutional: Comments: No fevers no rigors no chills Cardiovascular: Comments: No PND no orthopnea no leg swelling Respiratory: Comments: No shortness of breath no cough no sputum production no hemoptysis Gastrointestinal: Comments: No nausea no vomiting no abdominal pain no diarrhea Musculoskeletal: Comments: Pain on his back, hips. Integumentary/Breasts: Comments: No rashes Neurologic: Comments: No sensorimotor deficit Exam Narrative: Exam Narrative: Laying in bed well-appearing Const: General: comfortable, no acute distress, well developed, alert and awake Nutritional Appearance: average body habitus Orientation/consciousness: patient oriented x3 HENMT: Head: normal to inspection, normocephalic and atraumatic Ears: hearing grossly normal bilaterally Face and sinus: normal facial exam Eyes: General: appearance normal, both eyes and all related structures Pupils: Equal, round and reactive pupils present EOM: EOMs intact bilaterally Neck: Neck: full ROM, no lymphadenopathy and no JVD Thyroid: thyroid normal Lymphatic: no lymphadenopathy noted Resp: Effort & Inspection: normal respiratory effort and able to speak in complete sentences Auscultation: clear to auscultation bilaterally Cardio: Jugular venous distension: no JVD Rate: regular rate Rhythm: regular rhythm Heart sounds: S1 normal heart sound present and S2 normal heart sound present GI: GI Palp: Yes Soft to palpation and Yes No hepatosplenomegaly present : General: Yes deferred Skin: Rashes: no rashes Wounds: no wounds Neuro: General: patient oriented x3 and CN's II-XI intact bilaterally Cranial nerves: Yes CN's II-XII intact bilaterally and Yes Equal, round and reactive pupils present Cognition (Neuro): normal cognition Speech: normal speech Gait exam (Neuro): Normal gait present Motor exam (neuro): 5/5 motor strength present throughout Extrem: General: normal to inspection, full ROM, no joint enlargement and no pedal edema Objective Data Vital Signs Vital Signs: Vital Signs - 24 hr 07/25/20 12:33 07/25/20 12:58 07/25/20 13:00 Temperature Pulse Rate 88 89 85 Respiratory Rate 14 16 17 Blood Pressure Pulse Oximetry 97 100 98 07/25/20 13:11 07/25/20 13:15 07/25/20 13:16 Temperature Pulse Rate 85 85 85 Respiratory Rate 16 21 H 15 Blood Pressure 141/78 H 131/85 Pulse Oximetry 100 96 96 07/25/20 13:30 07/25/20 13:31 07/25/20 13:45 Temperature Pulse Rate 81 82 87 Respiratory Rate 14 15 13 Blood Press
--- NOTE | 2020-07-26 13:15 | PDONCCN ---
HPI - Date of Consult Date/Time: 07/26/20 13:15 Requesting Physician: Elbert Damian MD Primary Care Provider: Jone Marks MD - Consult Narrative Reason for consult: Sickle cell crisis. Narrative: Quan Downing is a 35 year old male with history of sickle cell SC disease with recurrent episode of sickle cell crisis admission. Patient also has a history of pulmonary embolism and has been on chronic anticoagulation therapy with warfarin. He came into the hospital with complain of generalized musculoskeletal pain mainly in the rib for last 2-3 days duration. He denies any fevers and chills. He has been taking hydroxyurea 500 mg twice a day along with warfarin 12.5 mg daily. Chest x-ray was performed on admission that showed chronic scarring in the lung bases consistent with history of sickle cell disease. Labs showed hemoglobin of 10.7 reticulocyte count was slightly elevated at 4.76. He was started on IV hydration and IV Dilaudid with improvement in the pain. He still complain of a ribcage pain. Review of Systems - Review of Systems All systems reviewed & are unremarkable except as noted in HPI and bel - Neurologic Reports system reviewed and no additional complaints, except as documented, Reports hearing normal [facility] Medical History: Medical History (Last Reviewed 07/25/20 @ 20:38 by Alis Rodriguez NP) Acute chest syndrome Chronic anticoagulation Due to history of DVT and pulmonary embolism. Chronic narcotic use On methadone with oxycodone for chronic pain related to his sickle cell disease. Deep venous thrombosis Noncompliance History of noncompliance with anticoagulation and hydroxyurea. Pulmonary embolism Sickle cell disease, type SC Surgical History: Surgical History (Last Reviewed 07/25/20 @ 20:38 by Alis Rodriguez NP) History of hand surgery Tendon surgery on right 5th finger. Family History: Family History (Last Reviewed 07/25/20 @ 20:38 by Alis Rodriguez NP) Grandparent Acute myocardial infarction Diabetes mellitus Sibling Asthma Sibling Asthma Mother Hypertension Son Sickle cell trait Daughter Sickle cell trait Grandparent No problems noted. Other Diabetes mellitus - Social History Social History: Social History (Last Reviewed 07/25/20 @ 20:38 by Alis Rodriguez NP) Gender Identity: Gender identity (if verbalized by the patient): Male Alcohol Use: Alcohol intake: never Substance Use: Substance use: former Substance use type: marijuana Others: Spiritual care concerns: No Agree to blood products: Yes Smoking Status: Smoking status: Never smoker Meds Home Medications Medication Instructions Recorded Confirmed Type folic acid 1 mg PO DAILY 02/16/19 07/25/20 History hydroxyurea [Hydrea] 500 mg PO BID 02/16/19 07/25/20 History warfarin [Coumadin] 10 mg PO DAILY@1700 #30 tablet 09/05/19 07/25/20 Rx oxycodone-acetaminophen 1 tablet PO Q4H PRN 11/08/19 07/25/20 History warfarin 2 mg PO DAILY 11/08/19 07/25/20 History methadone 10 mg PO TID 11/09/19 07/25/20 History polyethylene glycol 3350 [Miralax] 17 g PO QAM PRN #14 ea 02/24/20 07/25/20 Rx Allergies Allergy/AdvReac Type Severity Reaction Status Date / Time Fish Containing Products Allergy Intermediate Itching Verified 07/24/20 11:00 Results - Labs CBC & Chem 7: 07/26/20 06:15 07/26/20 06:15 Labs: Short CBC 07/26/20 Range/Units 06:15 WBC 8.6 (4.5-10.0) K/mm3 Hgb 10.0 L (14.0-18.0) g/dL Hct 28.7 L (42.0-52.0) % Plt Count 279 (150-375) k/mm3 BMP 07/26/20 06:15 Sodium 142 Potassium 3.9 Chloride 110 H Carbon Dioxide 27 BUN 8 L Creatinine 0.70 Glucose 103 Calcium 8.5 Liver Function 07/26/20 Range/Units 06:15 Total Bilirubin 0.8 (0.2-1.3) mg/dL AST 30 (17-59) U/L ALT 15 (4-50) U/L Alkaline Phosphatase 72 (38-126) U/L Albumin 4.0 (3.5-5.1) g/dL
[2020-07-26 14:15] LABS: Lactate Dehydrogenase 467 U/L (313-618)
[2020-07-26 14:41] LABS: Immature Reticulocyte Fraction 28.6 % (3.0-15.9); Reticulocyte Percent 4.73 % (0.7-4.3); Reticulocytes Absolute 0.14 B/L (32.2-175.7)
[2020-07-26] MEDS: WARFARIN (*PBKC) 10 MG TABLET PO (16:49)
[2020-07-27] MEDS: HYDROmorphone HCL INJ (*CRX) 1 MG/ML SYR IV PUSH ×8 (00:02→23:49)
[2020-07-27] MEDS: HYDROmorphone HCL INJ (*CRX) 2 MG/ML VIAL IV PUSH ×8 (00:02→23:49)
[2020-07-27] MEDS: oxyCODONE/ACETAMINOPHEN (*CRX) 5-325 MG TABLET 1 TABLET PO ×2 (01:03→15:14)
[2020-07-27 05:57] VITALS: BP 115/70; PULSE 72; RESP 16; TEMP 37.1; O2SAT 98
[2020-07-27 06:40] LABS: INR 1.9; Prothrombin Time 22.3 Seconds (11.1-14.7)
[2020-07-27] MEDS: FOLIC ACID 1 MG TABLET PO (08:32)
[2020-07-27] MEDS: ENOXAPARIN 100 MG/ML SYRINGE SUB-Q (08:32)
[2020-07-27] MEDS: HYDROXYUREA (*CHEMO) 500 MG CAPSULE PO ×2 (08:32→17:05)
[2020-07-27] MEDS: WARFARIN (*PBKC) 2 MG TABLET PO (08:32)
[2020-07-27] MEDS: methADONE HCL (*CRX) 10 MG TABLET PO ×3 (08:35→17:05)
[2020-07-27] MEDS: SODIUM CHLORIDE 0.9% IV 1,000 ML 100 ML IV CONT ×2 (10:34→20:34)
--- NOTE | 2020-07-27 12:36 | WPDONCPN ---
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 Patient is now dealing with sickle cell crisis. He has been slowly improving on with the current pain management and IV hydration. Labs showed slight improvement and LDH and reticulocyte count. Hopefully will be ready to be discharged home tomorrow on hydroxyurea 500 mg twice a day along with folic acid 1 mg daily. He will continue his home medication with his methadone along with hydrocodone. My office will take care of the refill on his home medication. Recurrent pulmonary embolism. Patient is on Coumadin 12.5 mg daily. INR is improved to 1.9 today. - Time Spent With Patient Total time spent is greater than 50% in coordination of care (as documented) at patient's floor/unit and/or counseling patient: 15 - 25 minutes Subjective Interval history: Sickle cell crisis Recurrent pulmonary embolism Review of Systems - Review of Systems Patient is slowly feeling better and pain has been improving and migrating from his legs to the upper body. Denies any fevers and chills. Denies any other new complaint. - Neurologic Reports system reviewed and no additional complaints, except as documented, Reports hearing normal Exam Vital signs: Temp Pulse Resp BP Pulse Ox 37.1 C 72 16 115/70 98 07/27/20 05:57 07/27/20 05:57 07/27/20 05:57 07/27/20 05:57 07/27/20 05:57 Narrative: Lungs are clear to auscultation bilaterally Cardiovascular regular rate rhythm no murmurs Abdomen soft nontender nondistended bowel sounds are positive Extremities no edema PN: Objective Data - Labs CBC & Chem 7: 07/26/20 06:15 07/26/20 06:15 Labs: Laboratory Results - last 24 hr 07/26/20 07/26/20 07/27/20 13:30 13:30 06:09 Absolute Retic 0.14 L Percent Retic 4.73 H Immature Retic Fraction 28.6 H Retic Hgb Content 32.0 PT 22.3 H D INR 1.9 Lactate Dehydrogenase 467
[2020-07-27 13:31] VITALS: BP 129/73; PULSE 80; RESP 18; TEMP 36.1; O2SAT 98
[2020-07-27] MEDS: oxyCODONE HCL (*CRX) 5 MG TAB IR PO (15:13)
--- NOTE | 2020-07-27 15:15 | PM.IMPN ---
Progress Note: A&P Assessment and Plan (1) Sickle cell pain crisis: Code(s): D57.00 - Hb-SS disease with crisis, unspecified Status: Acute Assessment and Plan: IMPROVED RATING HIS PAIN AT A LOWER LEVEL CONTINUE PAIN MANAGEMENT IV FLUIDS SUPPORTIVE CARE (2) Pulmonary embolism: Code(s): I26.99 - Other pulmonary embolism without acute cor pulmonale Status: Chronic Assessment and Plan: PATIENT INR IS SUBTHERAPEUTIC CURRENTLY ON THERAPEUTIC LOVENOX CONTINUE TO MONITOR (3) Subtherapeutic international normalized ratio (INR): Code(s): R79.1 - Abnormal coagulation profile Status: Acute Assessment and Plan: PATIENT HAD NOT BEEN TAKING HIS WARFARIN DUE TO HIS SICKLE CELL PAIN CRISIS WILL RECHECK INR CONTINUE COUMADIN Subjective Date/time seen: 07/27/20 15:15 AND STILL HAVING PAIN IN MY BACK BUT AT A LOWER LEVEL 7-8 Review of Systems Review of Systems: Narrative: HE DENIES ANY OTHER PROBLEMS AT THIS TIME OTHER THAN HIS PAIN WHICH IS LOCALIZED TO HIS BACK AND LEGS Exam Const: General: comfortable, no acute distress, well developed, alert and awake Nutritional Appearance: average body habitus Orientation/consciousness: patient oriented x3 HENMT: Head: normal to inspection, normocephalic and atraumatic Ears: hearing grossly normal bilaterally Face and sinus: normal facial exam Eyes: General: appearance normal, both eyes and all related structures Pupils: Equal, round and reactive pupils present EOM: EOMs intact bilaterally Neck: Neck: full ROM, no lymphadenopathy and no JVD Thyroid: thyroid normal Lymphatic: no lymphadenopathy noted Resp: Effort & Inspection: normal respiratory effort and able to speak in complete sentences Auscultation: clear to auscultation bilaterally Cardio: Jugular venous distension: no JVD Rate: regular rate Rhythm: regular rhythm Heart sounds: S1 normal heart sound present and S2 normal heart sound present GI: GI Palp: Yes Soft to palpation and Yes No hepatosplenomegaly present : General: Yes deferred Skin: Rashes: no rashes Wounds: no wounds Neuro: General: patient oriented x3 and CN's II-XI intact bilaterally Cranial nerves: Yes CN's II-XII intact bilaterally and Yes Equal, round and reactive pupils present Cognition (Neuro): normal cognition Speech: normal speech Gait exam (Neuro): Normal gait present Motor exam (neuro): 5/5 motor strength present throughout Extrem: General: normal to inspection, full ROM, no joint enlargement and no pedal edema Objective Data Vital Signs Vital Signs: Vital Signs - 24 hr 07/26/20 22:00 07/27/20 05:57 07/27/20 13:31 Temperature 98.3 F 98.8 F 96.9 F L Pulse Rate 75 72 80 Respiratory Rate 16 16 18 Blood Pressure 126/75 115/70 129/73 Pulse Oximetry 100 98 98 Intake/Output Intake/Output: Intake & Output 07/24/20 07/25/20 07/26/20 07/27/20 23:59 23:59 23:59 23:59 Intake Total 1100 4160 1690 Output Total 1950 2300 Balance 1100 2210 -610 Meds/Results Medications: Active Medications Generic Name Dose Route Start Last Admin Trade Name Freq PRN Reason Stop Dose Admin Diphenhydramine HCl 25 mg 07/25/20 19:14 Diphenhydramine Hcl Cap 25 Mg Capsule PO Q6H PRN Itching Enoxaparin Sodium 100 mg 07/25/20 21:00 07/27/20 08:32 Enoxaparin 100 Mg/Ml Syringe SUB-Q 100 mg Q12HR CHRISTOPHER Administration Folic Acid 1 mg 07/26/20 09:00 07/27/20 08:32 Folic Acid 1 Mg Tablet PO 1 mg DAILY CHRISTOPHER Administration Hydromorphone HCl 2 mg 07/25/20 19:48 07/27/20 13:45 Hydromorphone Hcl Inj (*Crx) 2 Mg/Ml Vial IV PUSH 2 mg Q3H PRN Administration Pain Rated 7-10 Hydromorphone HCl 1 mg 07/25/20 19:49 07/27/20 13:44 Hydromorphone Hcl Inj (*Crx) 1 Mg/Ml Syr IV PUSH 1 mg Q3H PRN Administration Pain Rated 7-10 Hydroxyurea 500 mg 07/26/20 09:00 07/27/20 08:32 Hydroxyurea (*Chemo) 500 Mg Capsule PO 500 mg BID CHRISTOPHER Administrat
[2020-07-27] MEDS: WARFARIN (*PBKC) 10 MG TABLET PO (17:05)
[2020-07-27 20:00] VITALS: PULSE 80; RESP 18; O2SAT 98
[2020-07-27 22:00] VITALS: BP 134/79; PULSE 74; RESP 20; TEMP 36.8; O2SAT 96
[2020-07-28] MEDS: HYDROmorphone HCL INJ (*CRX) 2 MG/ML VIAL IV PUSH ×7 (02:45→23:02)
[2020-07-28] MEDS: HYDROmorphone HCL INJ (*CRX) 1 MG/ML SYR IV PUSH ×7 (02:45→23:02)
[2020-07-28] MEDS: SODIUM CHLORIDE 0.9% IV 1,000 ML 100 ML IV CONT ×2 (05:55→16:26)
[2020-07-28 06:00] VITALS: BP 120/81; PULSE 67; RESP 20; TEMP 36.4; O2SAT 97
[2020-07-28 06:47] LABS: INR 2.3; Prothrombin Time 25.8 Seconds (11.1-14.7)
[2020-07-28] MEDS: FOLIC ACID 1 MG TABLET PO (08:29)
[2020-07-28] MEDS: WARFARIN (*PBKC) 2 MG TABLET PO (08:29)
[2020-07-28] MEDS: HYDROXYUREA (*CHEMO) 500 MG CAPSULE PO ×2 (08:29→16:27)
[2020-07-28] MEDS: methADONE HCL (*CRX) 10 MG TABLET PO ×3 (08:29→16:26)
[2020-07-28] MEDS: ENOXAPARIN 100 MG/ML SYRINGE SUB-Q (08:29)
[2020-07-28 14:00] VITALS: BP 128/78; PULSE 72; RESP 20; TEMP 36.9; O2SAT 100
[2020-07-28 15:15] LABS: Basophils Absolute Auto 0.1 K/mm3 (0.0-0.1); Basophils Percent Auto 0.6 % (0.2-1.2); Eosinophils Absolute Auto 0.3 K/mm3 (0-0.3); Eosinophils Percent Auto 3.7 % (0-4.4); Hematocrit 30.8 % (42.0-52.0); Hemoglobin 10.8 g/dL (14.0-18.0); Immature Granulocyte Absolute 0.01 K/mm3 (0.00-0.031); Immature Granulocyte Percent A 0.1 % (0-0.5); Immature Platelet Fraction Pct 5.4 % (0.9-11.2); Lymphocytes Absolute Auto 3.95 K/mm3 (0.9-3.2); Lymphocytes Percent Auto 49.1 % (18.3-44.2); Mean Corpuscular HGB Conc 35.1 g/dl (32-36); Mean Corpuscular Hemoglobin 31.1 pg (26-34); Mean Corpuscular Volume 88.8 fl (80-100); Mean Platelet Volume 11.1 fl (7.4-10.4); Monocytes Absolute Auto 0.6 K/mm3 (0.1-0.6); Monocytes Percent Auto 7.8 % (2.6-8.5); Neutrophils Absolute Auto 3.1 K/mm3 (1.3-6.7); Neutrophils Percent Auto 38.7 % (45.5-73.1); Platelet Count Result 286 k/mm3 (150-375); Red Blood Count 3.47 M/mm3 (4.6-6.20); Red Cell Distribution Width 14.2 % (11.5-14.5); Reticulocyte Hemoglobin Conten 34.1 pg (28.2-35.7); Reticulocyte Percent 4.72 % (0.7-4.3); Reticulocytes Absolute 0.16 B/L (32.2-175.7); White Blood Count 8.1 K/mm3 (4.5-10.0)
[2020-07-28 15:51] LABS: Anisocytosis 2+ (NORMAL); Hypochromasia 1+ (NORMAL); Platelet Estimate Adequate (Adequate)
[2020-07-28 15:52] LABS: Target Cells 2+ (NORMAL)
[2020-07-28 15:53] LABS: Sickle Cells 1+ (NORMAL)
[2020-07-28 16:01] LABS: Anion Gap 7 mmol/L (8-16); Blood Urea Nitrogen 6 mg/dL (9-20); Calcium 8.6 mg/dL (8.4-10.2); Carbon Dioxide 21 mmol/L (22-30); Chloride 112 mmol/L (98-107); Estimated CRCL calculation 152 ml/min; Estimated Glomerular Filt Rate > 60; Glucose 96 mg/dL (75-110); Potassium 4.2 mmol/L (3.4-5.0); Sodium 140 mmol/L (137-145)
[2020-07-28] MEDS: WARFARIN (*PBKC) 10 MG TABLET PO (16:26)
--- NOTE | 2020-07-28 16:38 | PM.IMPN ---
Progress Note: A&P Assessment and Plan (1) Sickle cell pain crisis: Code(s): D57.00 - Hb-SS disease with crisis, unspecified Status: Acute Assessment and Plan: improved continue IV fluids will check haptoglobin in a.m. (2) Chronic anticoagulation: Code(s): Z79.01 - skilled nursing (current) use of anticoagulants Status: Chronic Assessment and Plan: INR is therapeutic now a 2.3 continue Coumadin (3) Subtherapeutic international normalized ratio (INR): Code(s): R79.1 - Abnormal coagulation profile Status: Acute Assessment and Plan: now therapeutic (4) Sickle cell disease, type SC: Qualifiers: Sickle-cell associated disorders: without crisis Qualified Code(s): D57.20 - Sickle-cell/Hb-C disease without crisis Code(s): D57.20 - Sickle-cell/Hb-C disease without crisis Status: Chronic Assessment and Plan: patient is on Hydrea (5) Pulmonary embolism: Code(s): I26.99 - Other pulmonary embolism without acute cor pulmonale Status: Chronic Assessment and Plan: stable Subjective Date/time seen: 07/28/20 16:39 states the pain is better Review of Systems Review of Systems: Narrative: patient is rating his pain as 7 Exam Narrative: Exam Narrative: laying in bed Const: General: comfortable, no acute distress, well developed, alert and awake Nutritional Appearance: average body habitus Orientation/consciousness: patient oriented x3 HENMT: Head: normal to inspection, normocephalic and atraumatic Ears: hearing grossly normal bilaterally Face and sinus: normal facial exam Eyes: General: appearance normal, both eyes and all related structures Pupils: Equal, round and reactive pupils present EOM: EOMs intact bilaterally Neck: Neck: full ROM, no lymphadenopathy and no JVD Thyroid: thyroid normal Lymphatic: no lymphadenopathy noted Resp: Effort & Inspection: normal respiratory effort and able to speak in complete sentences Auscultation: clear to auscultation bilaterally Cardio: Jugular venous distension: no JVD Rate: regular rate Rhythm: regular rhythm Heart sounds: S1 normal heart sound present and S2 normal heart sound present GI: GI Palp: Yes Soft to palpation and Yes No hepatosplenomegaly present : General: Yes deferred Skin: Rashes: no rashes Wounds: no wounds Neuro: General: patient oriented x3 and CN's II-XI intact bilaterally Cranial nerves: Yes CN's II-XII intact bilaterally and Yes Equal, round and reactive pupils present Cognition (Neuro): normal cognition Speech: normal speech Gait exam (Neuro): Normal gait present Motor exam (neuro): 5/5 motor strength present throughout Extrem: General: normal to inspection, full ROM, no joint enlargement and no pedal edema Objective Data Vital Signs Vital Signs: Vital Signs - 24 hr 07/27/20 20:00 07/27/20 22:00 07/28/20 06:00 Temperature 98.2 F 97.5 F L Pulse Rate 80 74 67 Respiratory Rate 18 20 20 Blood Pressure 134/79 120/81 Pulse Oximetry 98 96 97 07/28/20 14:00 Temperature 98.4 F Pulse Rate 72 Respiratory Rate 20 Blood Pressure 128/78 Pulse Oximetry 100 Intake/Output Intake/Output: Intake & Output 07/25/20 07/26/20 07/27/20 07/28/20 23:59 23:59 23:59 23:59 Intake Total 1100 4160 3650 2960 Output Total 1950 4300 Balance 1100 2210 -650 2960 Meds/Results Medications: Active Medications Generic Name Dose Route Start Last Admin Trade Name Freq PRN Reason Stop Dose Admin Diphenhydramine HCl 25 mg 07/25/20 19:14 Diphenhydramine Hcl Cap 25 Mg Capsule PO Q6H PRN Itching Folic Acid 1 mg 07/26/20 09:00 07/28/20 08:29 Folic Acid 1 Mg Tablet PO 1 mg DAILY CHRISTOPHER Administration Hydromorphone HCl 2 mg 07/25/20 19:48 07/28/20 16:21 Hydromorphone Hcl Inj (*Crx) 2 Mg/Ml Vial IV PUSH 2 mg Q3H PRN Administration Pain Rated 7-10 Hydromorphone HCl 1 mg 07/25/20 19:49 07/28/20
[2020-07-28 19:55] VITALS: PULSE 72; RESP 20; O2SAT 100
[2020-07-28 21:52] VITALS: BP 130/77; PULSE 81; RESP 20; TEMP 36.8; O2SAT 97
--- NOTE | 2020-07-29 | ECHO_ITS ---
Patient Info Name: Quan Downing Age: 35 years : 1985 Gender: Male Ht: 70 in Wt: 235 lbs BSA: 2.33 m2 HR: 68 bpm BP: 124 / 74 mmHg Technical Quality: Good Exam Date: 07/29/2020 9:41 AM Exam Location: [facility] Patient Status: Inpatient Admit Date: 07/27/2020 Staff Ordering Physician: Ally Juarez MD Rail Car Painter/Sandblaster: Mart Dee RDCS, RT Attending Provider: Elbert Damian MD Referring Physician: Larry BECKER; Exam Type: CA echo doppler color flow Study Info Indications I26.09 - Other pulmonary embolism with acute cor pulmonale Complete two-dimensional, color flow and Doppler transthoracic echocardiogram is performed. Strain analysis performed. Summary 1. Complete two-dimensional, color flow and Doppler transthoracic echocardiogram is performed. 2. Left ventricular systolic function is normal, estimated at 55-60%. 3. Left ventricular chamber dimension is normal. 4. There is mildly increased left ventricular wall thickness. 5. The left ventricular diastolic function is grade I diastolic dysfunction. 6. E/e' 6 is not elevated. 7. Global longitudinal strain is mildly abnormal at -16.1%. 8. Right atrial chamber dimension is mildly enlarged. 9. There is trace pulmonic regurgitation. Left Ventricle E/e' 6 is not elevated. Global longitudinal strain is mildly abnormal at -16.1%. Left ventricular chamber dimension is normal. Left ventricular systolic function is normal, estimated at 55-60%. There is mildly increased left ventricular wall thickness. The left ventricular diastolic function is grade I diastolic dysfunction. Right Ventricle Right ventricular chamber dimension is not well visualized. Left Atria Left atrial chamber dimension is normal. Right Atria Right atrial chamber dimension is mildly enlarged. Aortic Valve The aortic valve is trileaflet. There is no aortic valve stenosis. There is no aortic valve regurgitation. Pulmonic Valve There is trace pulmonic regurgitation. Mitral Valve There is no mitral valve stenosis. There is no mitral valve regurgitation. Tricuspid Valve There is no tricuspid valve regurgitation. Pericardium/Pleural There is no pericardial effusion. Inferior Vena Cava Normal inferior vena cava with >50% collapse upon inspiration consistent with normal right atrial pressure, 5 mmHg. Aorta The aortic root size at the sinus of Valsalva is normal. Left Ventricular Outflow Tract Name Value Normal LVOT 2D LVOT Diameter 2.2 cm LVOT Doppler LVOT Peak Gradient 2 mmHg LVOT Mean Gradient 1 mmHg LVOT VTI 16 cm LVOT VTI/AV VTI Ratio 0.8 LVOT Stroke Volume 61 ml LVOT CO 4.2 l/min LVOT CI 1.8 l/min/m2 Mitral Valve Name Value Normal
[2020-07-29] MEDS: HYDROmorphone HCL INJ (*CRX) 1 MG/ML SYR IV PUSH ×6 (02:05→21:24)
[2020-07-29] MEDS: HYDROmorphone HCL INJ (*CRX) 2 MG/ML VIAL IV PUSH ×7 (02:05→21:23)
[2020-07-29] MEDS: SODIUM CHLORIDE 0.9% IV 1,000 ML 100 ML IV CONT ×3 (02:09→22:21)
[2020-07-29 05:56] VITALS: BP 124/74; PULSE 66; RESP 20; TEMP 36.7; O2SAT 99
[2020-07-29 06:33] LABS: Basophils Absolute Auto 0.1 K/mm3 (0.0-0.1); Basophils Percent Auto 0.7 % (0.2-1.2); Eosinophils Absolute Auto 0.3 K/mm3 (0-0.3); Eosinophils Percent Auto 3.9 % (0-4.4); Hematocrit 28.6 % (42.0-52.0); Hemoglobin 10.1 g/dL (14.0-18.0); Immature Granulocyte Absolute 0.02 K/mm3 (0.00-0.031); Immature Granulocyte Percent A 0.2 % (0-0.5); Lymphocytes Absolute Auto 3.79 K/mm3 (0.9-3.2); Lymphocytes Percent Auto 46.7 % (18.3-44.2); Mean Corpuscular HGB Conc 35.3 g/dl (32-36); Mean Corpuscular Hemoglobin 30.6 pg (26-34); Mean Corpuscular Volume 86.7 fl (80-100); Mean Platelet Volume 10.1 fl (7.4-10.4); Monocytes Absolute Auto 0.7 K/mm3 (0.1-0.6); Monocytes Percent Auto 9.1 % (2.6-8.5); Neutrophils Absolute Auto 3.2 K/mm3 (1.3-6.7); Neutrophils Percent Auto 39.4 % (45.5-73.1); Nucleated Red Blood Cells Perc 0.4 % (0.0-0.2); Platelet Count Result 292 k/mm3 (150-375); Red Cell Distribution Width 13.8 % (11.5-14.5); White Blood Count 8.1 K/mm3 (4.5-10.0)
[2020-07-29 06:41] LABS: INR 2.7
[2020-07-29 06:44] LABS: Anion Gap 5 mmol/L (8-16); Blood Urea Nitrogen 6 mg/dL (9-20); Calcium 8.4 mg/dL (8.4-10.2); Carbon Dioxide 27 mmol/L (22-30); Chloride 108 mmol/L (98-107); Estimated CRCL calculation 175 ml/min; Estimated Glomerular Filt Rate > 60; Glucose 106 mg/dL (75-110); Sodium 140 mmol/L (137-145)
[2020-07-29] MEDS: FOLIC ACID 1 MG TABLET PO (08:17)
[2020-07-29] MEDS: HYDROXYUREA (*CHEMO) 500 MG CAPSULE PO ×2 (08:17→17:12)
[2020-07-29] MEDS: WARFARIN (*PBKC) 2 MG TABLET PO (08:18)
[2020-07-29] MEDS: methADONE HCL (*CRX) 10 MG TABLET PO ×3 (08:22→17:12)
[2020-07-29 14:00] VITALS: BP 119/86; PULSE 72; RESP 16; TEMP 36.8; O2SAT 96
--- NOTE | 2020-07-29 14:48 | PM.IMPN ---
Progress Note: A&P Assessment and Plan (1) Sickle cell pain crisis: Code(s): D57.00 - Hb-SS disease with crisis, unspecified Status: Acute Assessment and Plan: CONTINUE PAIN MANAGEMENT CONTINUE IV FLUIDS CHEST X-RAY TO RULE OUT ACUTE CHEST SYNDROME NO INFILTRATES APPRECIATED ON LUNGS (2) Chronic anticoagulation: Code(s): Z79.01 - FPC (current) use of anticoagulants Status: Chronic Assessment and Plan: PATIENT IS ON COUMADIN (3) Subtherapeutic international normalized ratio (INR): Code(s): R79.1 - Abnormal coagulation profile Status: Acute Assessment and Plan: INR IS THERAPEUTIC (4) Sickle cell disease, type SC: Qualifiers: Sickle-cell associated disorders: without crisis Qualified Code(s): D57.20 - Sickle-cell/Hb-C disease without crisis Code(s): D57.20 - Sickle-cell/Hb-C disease without crisis Status: Chronic Assessment and Plan: ON HYDREA FOLLOW-UP IN OUTPATIENT SETTING (5) Pulmonary embolism: Code(s): I26.99 - Other pulmonary embolism without acute cor pulmonale Status: Chronic Assessment and Plan: ON ANTICOAGULATION ECHOCARDIOGRAM HAS BEEN TAKEN (6) Acute chest syndrome: Code(s): D57.01 - Hb-SS disease with acute chest syndrome Status: Acute Assessment and Plan: RULED OUT Subjective Date/time seen: 07/29/20 14:48 I HAVE PAIN IN MY RIBS TODAY Review of Systems Review of Systems: Narrative: PATIENT STATES THAT HE HAS HAD PAIN IN HIS RIBS WITH DEEP INSPIRATION Constitutional: Comments: NO FEVERS NO RIGORS NO CHILLS Cardiovascular: Comments: NO CHEST PAIN NO SHORTNESS OF BREATH NO PND NO LEG SWELLING Respiratory: Comments: NO SHORTNESS OF BREATH NO COUGH NO SPUTUM PRODUCTION Gastrointestinal: Comments: NO NAUSEA NO VOMITING NO ABDOMINAL PAIN Musculoskeletal: Comments: PAIN IN THE HIPS AND BACK Integumentary/Breasts: Comments: NO RASHES Neurologic: Comments: NO SENSORIMOTOR DEFICIT Exam Narrative: Exam Narrative: LAYING IN BED IN NO ACUTE DISTRESS Const: General: comfortable, no acute distress, well developed, alert and awake Nutritional Appearance: average body habitus Orientation/consciousness: patient oriented x3 HENMT: Head: normal to inspection, normocephalic and atraumatic Ears: hearing grossly normal bilaterally Face and sinus: normal facial exam Eyes: General: appearance normal, both eyes and all related structures Pupils: Equal, round and reactive pupils present EOM: EOMs intact bilaterally Neck: Neck: full ROM, no lymphadenopathy and no JVD Thyroid: thyroid normal Lymphatic: no lymphadenopathy noted Resp: Effort & Inspection: normal respiratory effort and able to speak in complete sentences Auscultation: clear to auscultation bilaterally Cardio: Jugular venous distension: no JVD Rate: regular rate Rhythm: regular rhythm Heart sounds: S1 normal heart sound present and S2 normal heart sound present GI: GI Palp: Yes Soft to palpation and Yes No hepatosplenomegaly present : General: Yes deferred Skin: Rashes: no rashes Wounds: no wounds Neuro: General: patient oriented x3 and CN's II-XI intact bilaterally Cranial nerves: Yes CN's II-XII intact bilaterally and Yes Equal, round and reactive pupils present Cognition (Neuro): normal cognition Speech: normal speech Gait exam (Neuro): Normal gait present Motor exam (neuro): 5/5 motor strength present throughout Extrem: General: normal to inspection, full ROM, no joint enlargement and no pedal edema Objective Data Vital Signs Vital Signs: Vital Signs - 24 hr 07/28/20 19:55 07/28/20 21:52 07/29/20 05:56 Temperature 98.2 F 98.1 F Pulse Rate 72 81 66 Respiratory Rate 20 20 20 Blood Pressure 130/77 124/74 Pulse Oximetry 100 97 99 Intake/Output Intake/Output: Intake & Output 07/26/20 07/27/20 07/28/20 07/29/20 23:59 23:59 23:59 23:59 Intake Total 4160 36
[2020-07-29] MEDS: WARFARIN (*PBKC) 10 MG TABLET PO (17:12)
[2020-07-29 20:00] VITALS: PULSE 80; RESP 16; O2SAT 95
[2020-07-29 20:35] VITALS: BP 138/82; PULSE 80; RESP 16; TEMP 37; O2SAT 95
[2020-07-30] MEDS: HYDROmorphone HCL INJ (*CRX) 2 MG/ML VIAL IV PUSH ×5 (03:12→12:30)
[2020-07-30] MEDS: HYDROmorphone HCL INJ (*CRX) 1 MG/ML SYR IV PUSH ×4 (03:14→12:31)
[2020-07-30 05:00] VITALS: BP 135/87; PULSE 70; RESP 16; TEMP 36.8; O2SAT 97
[2020-07-30 06:40] LABS: INR 2.7; Prothrombin Time 28.9 Seconds (11.1-14.7)
[2020-07-30] MEDS: SODIUM CHLORIDE 0.9% IV 1,000 ML 100 ML IV CONT (08:28)
[2020-07-30] MEDS: FOLIC ACID 1 MG TABLET PO (08:29)
[2020-07-30] MEDS: WARFARIN (*PBKC) 2 MG TABLET PO (08:30)
[2020-07-30] MEDS: methADONE HCL (*CRX) 10 MG TABLET PO ×2 (08:30→12:02)
[2020-07-30] MEDS: HYDROXYUREA (*CHEMO) 500 MG CAPSULE PO (08:30)
--- NOTE | 2020-07-30 13:57 | PM.DS ---
DS: Admitting Diagnosis Admitting Diagnosis Admitting Diagnosis: (1) Sickle-cell disease with pain: (2) Subtherapeutic international normalized ratio (INR): (3) Pulmonary embolism: DS: Discharge Diagnosis Discharge Diagnosis (1) Sickle cell pain crisis: Code(s): D57.00 - Hb-SS disease with crisis, unspecified Status: Acute Assessment and Plan: patient states that he feels much better pain is tolerable (2) Chronic anticoagulation: Code(s): Z79.01 - detention (current) use of anticoagulants Status: Chronic Assessment and Plan: continue warfarin (3) Subtherapeutic international normalized ratio (INR): Code(s): R79.1 - Abnormal coagulation profile Status: Acute Assessment and Plan: INR is now therapeutic level (4) Sickle cell disease, type SC: Qualifiers: Sickle-cell associated disorders: without crisis Qualified Code(s): D57.20 - Sickle-cell/Hb-C disease without crisis Code(s): D57.20 - Sickle-cell/Hb-C disease without crisis Status: Chronic Assessment and Plan: continue Hydrea will follow-up in outpatient setting with Dr. Marks (5) Pulmonary embolism: Code(s): I26.99 - Other pulmonary embolism without acute cor pulmonale Status: Chronic Assessment and Plan: will follow-up in outpatient setting on Coumadin (6) Acute chest syndrome: Code(s): D57.01 - Hb-SS disease with acute chest syndrome Status: Acute Assessment and Plan: ruled out (7) Pneumonia: Qualifiers: Laterality: right Lung location: lower lobe of lung Pneumonia type: due to unspecified organism Qualified Code(s): J18.9 - Pneumonia, unspecified organism Code(s): J18.9 - Pneumonia, unspecified organism Status: Acute Assessment and Plan: ruled out DS: Summary Hospital Course Reason for hospitalization: sickle cell crisis Hospital Course: this is a 35-year-old male with past medical history significant for heterozygous sickle cell disease patient presented with veno-occlusive crisis pain crisis to the emergency room. Preliminary workup was also significant for pulmonary emboli. patient was admitted to general medical floor for pain crisis management. he was placed on therapeutic Lovenox as his INR Coumadin level was below therapeutic consults obtained: No consults procedures: No procedures Status at Discharge Cognitive/behavioral status at discharge: AAOX3 Functional status at discharge: independent ambulation Time Spent with Patient Time attestation: Total time spent providing and/or coordinating discharge services: Time spent: Greater than 30 minutes Exam Narrative: Exam Narrative: patient is sitting in bed Const: General: comfortable, no acute distress, well developed, alert and awake Nutritional Appearance: average body habitus Orientation/consciousness: patient oriented x3 HENMT: Head: normal to inspection, normocephalic and atraumatic Ears: hearing grossly normal bilaterally Face and sinus: normal facial exam Eyes: General: appearance normal, both eyes and all related structures Pupils: Equal, round and reactive pupils present EOM: EOMs intact bilaterally Neck: Neck: full ROM, no lymphadenopathy and no JVD Thyroid: thyroid normal Lymphatic: no lymphadenopathy noted Resp: Effort & Inspection: normal respiratory effort and able to speak in complete sentences Auscultation: clear to auscultation bilaterally Cardio: Jugular venous distension: no JVD Rate: regular rate Rhythm: regular rhythm Heart sounds: S1 normal heart sound present and S2 normal heart sound present GI: GI Palp: Yes Soft to palpation and Yes No hepatosplenomegaly present : General: Yes deferred Skin: Rashes: no rashes Wounds: no wounds Neuro: General: patient oriented x3 and CN's II-XI intact bilaterally Cranial nerves: Yes CN's II-XII intact bilatera
[2020-07-30 14:00] VITALS: BP 127/84; PULSE 79; RESP 16; TEMP 36.4; O2SAT 99
[2020-08-02 14:31] LABS: Haptoglobin <8 mg/dL (43-212)
== END 2020-07-30 15:50 | disposition home or self-care (01) | DRG 662 ==
LOC: ANHED 16:18 → ANH3MEDSUR 17:21
PROVIDERS: Nurse Practitioner; Physician Assistant; Admitting Provider Family Medicine; Emergency Provider Emergency Medicine; PCP Internal Medicine Hematology & Oncology; Visit Provider Internal Medicine
DX: D57.00 Hb-SS disease with crisis, unspecified (principal); I26.99 Other pulmonary embolism without acute cor pulmonale; D57.20 Sickle-cell/Hb-C disease without crisis; R79.1 Abnormal coagulation profile; G89.4 Chronic pain syndrome; Z91.14 Patient's other noncompliance with medication regimen; Z79.01 Long term (current) use of anticoagulants; Z79.891 Long term (current) use of opiate analgesic; Z86.711 Personal history of pulmonary embolism; Z86.718 Personal history of other venous thrombosis and embolism
CPT/HCPCS: 36415; 71045; 71046; 80048; 80053; 83010; 83615; 83735; 85025; 85046; 85055; 85380; 85610; 85730; 93005; 93306; 96361; 96372; 96374; 96375; 96376; 99285; A9270; G0378; G0379; J0131; J1170; J1650; J1885; J2270; J2405; J7030

== ENCOUNTER 2020-08-22 10:02 | Inpatient (IN) | payer OTHER, SELFPAY ==
[2020-08-22] VITALS (8 sets, daily range): BP systolic 115–133; BP diastolic 63–87; PULSE 73–97; RESP 16–20; TEMP 36.3–36.5; O2SAT 95–98; BMI 32.1
[2020-08-22 12:26] LABS: Basophils Absolute Auto 0.1 K/mm3 (0.0-0.1); Basophils Percent Auto 0.7 % (0.2-1.2); Eosinophils Absolute Auto 0.3 K/mm3 (0-0.3); Eosinophils Percent Auto 2.2 % (0-4.4); Hematocrit 29.8 % (42.0-52.0); Hemoglobin 10.4 g/dL (14.0-18.0); Immature Granulocyte Absolute 0.06 K/mm3 (0.00-0.031); Immature Granulocyte Percent A 0.5 % (0-0.5); Immature Platelet Fraction Pct 5.7 % (0.9-11.2); Immature Reticulocyte Fraction 36.5 % (3.0-15.9); Lymphocytes Absolute Auto 4.28 K/mm3 (0.9-3.2); Lymphocytes Percent Auto 35.2 % (18.3-44.2); Mean Corpuscular HGB Conc 34.9 g/dl (32-36); Mean Corpuscular Hemoglobin 31.4 pg (26-34); Mean Platelet Volume 10.1 fl (7.4-10.4); Monocytes Percent Auto 8.3 % (2.6-8.5); Neutrophils Absolute Auto 6.5 K/mm3 (1.3-6.7); Neutrophils Percent Auto 53.1 % (45.5-73.1); Nucleated Red Blood Cells Absolute Auto 0.1 K/mm3 (0.0-0.012); Nucleated Red Blood Cells Perc 0.5 % (0.0-0.2); Platelet Count Result 331 k/mm3 (150-375); Red Blood Count 3.31 M/mm3 (4.6-6.20); Red Cell Distribution Width 14.8 % (11.5-14.5); Reticulocyte Hemoglobin Conten 34.8 pg (28.2-35.7); Reticulocytes Absolute 0.21 B/L (32.2-175.7); White Blood Count 12.2 K/mm3 (4.5-10.0)
[2020-08-22 12:37] LABS: Anion Gap 6 mmol/L (8-16); Blood Urea Nitrogen 6 mg/dL (9-20); Calcium 9.2 mg/dL (8.4-10.2); Carbon Dioxide 29 mmol/L (22-30); Chloride 105 mmol/L (98-107); Estimated CRCL calculation 148 ml/min; Estimated Glomerular Filt Rate > 60; Glucose 102 mg/dL (75-110); Lactate Dehydrogenase 688 U/L (313-618); Potassium 4.3 mmol/L (3.4-5.0); Sodium 140 mmol/L (137-145)
[2020-08-22 12:47] LABS: Platelet Estimate Adequate (Adequate)
[2020-08-22 12:48] LABS: Anisocytosis 2+ (NORMAL); Hypochromasia 1+ (NORMAL); Sickle Cells 1+ (NORMAL); Target Cells 2+ (NORMAL); Tear Drop Cells 1+ (NORMAL)
[2020-08-22 12:49] LABS: Ovalocytes 1+ (NORMAL); Stomatocytes 1+ (NORMAL)
[2020-08-22] MEDS: SODIUM CHLORIDE 0.9% IV 1,000 ML 999 ML IV CONT (13:40)
[2020-08-22] MEDS: HYDROmorphone HCL INJ (*CRX) 1 MG/ML SYR 2 MG IV PUSH ×3 (13:40→18:37)
--- NOTE | 2020-08-22 14:42 | ED.GENADULT ---
HPI - General Adult General Chief complaint: Unspecified Stated complaint: sickle cell pain Time Seen by Provider: 08/22/20 11:59 History of Present Illness HPI narrative: Patient is a 35-year-old male with history of sickle cell disease who presents to the ER with a pain crisis. Patient reports over the last 2 days he has developed pain in his thighs and his ribs consistent with his previous sickle cell pain. No fevers or chills. No productive cough or shortness of breath or chest pain. He reports he believes that the recent bout of cold weather has caused him to develop a crisis. He had spent a lot of time outdoors yesterday grilling for Mother's Day. Patient reports he took methadone last night for his pain which did not help today. Related Data Home Medications Medication Instructions Recorded Confirmed folic acid 1 mg PO DAILY 02/16/19 07/25/20 hydroxyurea [Hydrea] 500 mg PO BID 02/16/19 07/25/20 oxycodone-acetaminophen 1 tablet PO Q4H PRN 11/08/19 07/25/20 warfarin 2 mg PO DAILY 11/08/19 07/25/20 methadone 10 mg PO TID 11/09/19 07/25/20 Allergies Allergy/AdvReac Type Severity Reaction Status Date / Time Fish Containing Products Allergy Intermediate Itching Verified 07/24/20 11:00 Review of Systems Review of Systems: All systems reviewed & are unremarkable except as noted in HPI and below Constitutional: Constitutional: Denies chills, Denies fatigue and Denies fever(s) Cardiovascular: Cardiovascular: Denies chest pain and Denies rapid heart rate Respiratory: Respiratory: Denies cough and Denies dyspnea Musculoskeletal: Musculoskeletal: Denies back pain, Reports myalgias, Denies arthralgias and Denies joint swelling [facility]LY [facility] Past Medical History Medical History Acute chest syndrome Chronic anticoagulation Due to history of DVT and pulmonary embolism. Chronic narcotic use On methadone with oxycodone for chronic pain related to his sickle cell disease. Deep venous thrombosis Noncompliance History of noncompliance with anticoagulation and hydroxyurea. Pulmonary embolism Sickle cell disease, type SC Surgical History Surgical History History of hand surgery Tendon surgery on right 5th finger. Family History Family History Grandparent Acute myocardial infarction Diabetes mellitus Sibling Asthma Sibling Asthma Mother Hypertension Son Sickle cell trait Daughter Sickle cell trait Grandparent No problems noted. Other Diabetes mellitus Social History Social History Social History: The patient lives in [place] with his family. He is on disability due to sickle cell disease and chronic pain. He designates his friend, Keyla Luther, as his surrogate decision maker and he wishes to be a full code. He is a lifelong nonsmoker and denies alcohol and drug use. The patient has 2 children who have the sickle cell trait. Smoking status: Never smoker Alcohol intake: never Substance use: former Substance use type: marijuana Additional occupation/education comments: Gender identity (if verbalized by the patient): Male Spiritual care concerns: No Agree to blood products: Yes Exam Narrative: Exam Narrative: GENERAL: Well-appearing, well-nourished, and in no acute distress. HEAD: Normocephalic, atraumatic. CHEST: Clear to auscultation. No respiratory distress. HEART: Regular rate and rhythm. Normal peripheral pulses. ABDOMEN: Soft, nontender, nondistended. EXTREMITIES: Normal range of motion. No edema. SKIN: Warm, dry, no rash. NEURO: Alert and oriented x3. PSYCH: Normal mood and affect. Course Course Emergency Course: Patient with persistent pain after for Dilaudid, IV fluids, and oxygen. Admit to the hospitalist service for pain control. Lynda
--- NOTE | 2020-08-22 16:45 | PC.NURSE ---
This patient, Quan Downing, was admitted to Medical Room 349-01. Patient/family oriented to hospital policies and general routines including ID bracelet, bed and alarms, visiting hours, pain management, procedures, bathroom and other care routines, personal items, smoking policy, room service/diet, and visiting hours. Information on how to activate the Rapid Response Team has been discussed. Patient/Family are encouraged to report perceived risks to care and to ask questions if they do not understand what they are told or what they should do.
[2020-08-22] MEDS: SODIUM CHLORIDE 0.9% IV 1,000 ML 125 ML IV CONT (17:10)
[2020-08-22] MEDS: ONDANSETRON INJ 4 MG/2 ML VIAL IV PUSH (17:17)
[2020-08-22 18:48] LABS: INR 1.3; Prothrombin Time 16.9 Seconds (11.1-14.7)
[2020-08-22] MEDS: oxyCODONE HCL (*CRX) 5 MG TAB IR PO (19:34)
[2020-08-22] MEDS: oxyCODONE/ACETAMINOPHEN (*CRX) 5-325 MG TABLET 1 TABLET PO (19:34)
--- NOTE | 2020-08-22 19:57 | PM.IMHP ---
H&P: HPI History of Present Illness Date/Time: 08/22/20 19:57 this is a 35-year-old male patient who is well-known to the hospitalist group who has a history of sickle cell anemia. Patient was discharged from here on 07/30/2020. Who came to the emergency room with a sickle cell crisis. The patient stated that he tried to call Dr. stallings before came to hospital. The patient is on chronic pain medications and stated that he has taken all of his medications that he typically takes. The patient stated that he has had increased pain in his thighs and ribs for the last 2 days. He had no fever chills. No shortness of breath or chest pain. He stated that he had been outside grilling most today on mother stated was cold outside. The lot in the emergency room. Started on IV fluids. White count 12.12. Patient has reticular count 6.3. Dr. stallings has been consulted. Patient's lactate dehydrogenase is 688. The patient's INR subtherapeutic at 1.3 knee has a history of DVT/PE. The patient is being admitted as observation on the date of service of 08/22/2020. Chief Complaint: Sickle cell pain thighs and ribs Review of Systems Review of Systems: All systems reviewed & are unremarkable except as noted in HPI and below Constitutional: Constitutional: Reports as per HPI and Reports no additional constitutional complaints Eyes: Eyes: Reports as per HPI and Reports no additional eye complaints ENT: Reports system reviewed and no additional complaints, except as documented and Reports Normal hearing present Cardiovascular: Cardiovascular: Reports no additional cardiovascular complaints Respiratory: Respiratory: Reports no additional respiratory complaints and Reports no additional respiratory complaints Gastrointestinal: Gastrointestinal: Reports as per HPI and Reports no additional gastrointestinal complaints Musculoskeletal: Musculoskeletal: Reports no additional musculoskeletal complaints Integumentary/Breasts: Skin/Breast: Reports system reviewed and no additional complaints, except as docu and Reports as per HPI Neurologic: Reports system reviewed and no additional complaints, except as documented, Reports as per HPI and Reports Normal hearing present Psychiatric: Psychiatric: Reports no additional psychiatric complaints and Reports as per HPI Endocrine: Endocrine: Reports no additional endocrine complaints Hematologic/Lymphatic: Hematologic/Lymphatic: Reports no additional hematologic/lymphatic complaints Allergic/Immunologic: Allergic/Immunologic: Reports no additional allergic/immunologic complaints [facility] Past Medical History Medical History Acute chest syndrome Chronic anticoagulation Due to history of DVT and pulmonary embolism. Chronic narcotic use On methadone with oxycodone for chronic pain related to his sickle cell disease. Deep venous thrombosis Noncompliance History of noncompliance with anticoagulation and hydroxyurea. Pulmonary embolism Sickle cell disease, type SC Surgical History Surgical History History of hand surgery Tendon surgery on right 5th finger. Family History Family History Grandparent Diabetes mellitus Acute myocardial infarction Sibling Asthma Sibling Asthma Mother Hypertension Sickle cell trait Son Sickle cell trait Daughter Sickle cell trait Grandparent No problems noted. Other Diabetes mellitus Father Sickle cell trait Social History Social History Social History: The patient lives in [place] with his family. He is on disability due to sickle cell disease and chronic pain. He designates his friend, Keyla Ashkan, as his surrogate decision maker and he wishes to be a full code. He is a lifelong nonsmoker and denies alcohol and drug use. The patien
[2020-08-22] MEDS: ENOXAPARIN 100 MG/ML SYRINGE SUB-Q (21:33)
[2020-08-22] MEDS: HYDROmorphone HCL INJ (*CRX) 1 MG/ML SYR 3 MG IV PUSH (21:36)
[2020-08-23] MEDS: HYDROmorphone HCL INJ (*CRX) 1 MG/ML SYR 3 MG IV PUSH ×7 (00:37→20:52)
[2020-08-23] MEDS: SODIUM CHLORIDE 0.9% IV 1,000 ML 125 ML IV CONT ×3 (01:26→17:39)
[2020-08-23] MEDS: ACETAMINOPHEN 325 MG TABLET 650 MG PO (05:50)
[2020-08-23 05:55] LABS: Hematocrit 30.3 % (42.0-52.0); Hemoglobin 10.7 g/dL (14.0-18.0); Mean Corpuscular HGB Conc 35.3 g/dl (32-36); Mean Corpuscular Hemoglobin 32.3 pg (26-34); Mean Corpuscular Volume 91.5 fl (80-100); Mean Platelet Volume 9.9 fl (7.4-10.4); Platelet Count Result 262 k/mm3 (150-375); Red Blood Count 3.31 M/mm3 (4.6-6.20); Red Cell Distribution Width 14.7 % (11.5-14.5); White Blood Count 13.8 K/mm3 (4.5-10.0)
[2020-08-23 06:08] LABS: Alanine Aminotransferase 19 U/L (4-50); Albumin Level 4.3 g/dL (3.5-5.1); Alkaline Phosphatase 85 U/L (38-126); Anion Gap 7 mmol/L (8-16); Aspartate Amino Transferase 37 U/L (17-59); Blood Urea Nitrogen 4 mg/dL (9-20); Calcium 8.7 mg/dL (8.4-10.2); Carbon Dioxide 24 mmol/L (22-30); Chloride 108 mmol/L (98-107); Estimated CRCL calculation 131 ml/min; Estimated Glomerular Filt Rate > 60; Glucose 94 mg/dL (75-110); Lactate Dehydrogenase 717 U/L (313-618); Magnesium 2.1 mg/dL (1.6-2.3); Potassium 4.3 mmol/L (3.4-5.0); Sodium 139 mmol/L (137-145)
[2020-08-23 06:10] VITALS: BP 116/65; PULSE 82; RESP 16; TEMP 35.9; O2SAT 93
[2020-08-23 07:52] LABS: Band Neutrophils Percent 2 % (0-6); Lymphocytes Absolute Manual 5.38 K/mm3 (1.1-4.5); Monocytes Absolute Manual 0.69 K/mm3 (0.1-0.90); Monocytes Percent Manual 5 % (3-9); Neutrophils Absolute Manual 7.72 K/mm3 (1.3-6.7); Neutrophils Percent Manual 54 % (46-73); Platelet Estimate Adequate (Adequate); Target Cells 2+ (NORMAL); Total Cells Counted 100
[2020-08-23 07:53] LABS: Hypochromasia 2+ (NORMAL); Schistocytes 1+ (NORMAL); Sickle Cells 1+ (NORMAL)
[2020-08-23] MEDS: ENOXAPARIN 100 MG/ML SYRINGE SUB-Q ×2 (08:13→20:55)
[2020-08-23] MEDS: HYDROXYUREA (*CHEMO) 500 MG CAPSULE PO (08:14)
[2020-08-23] MEDS: FOLIC ACID 1 MG TABLET PO (08:14)
[2020-08-23] MEDS: methADONE HCL (*CRX) 10 MG TABLET PO ×3 (08:16→17:00)
--- NOTE | 2020-08-23 12:35 | PM.IMPN ---
Progress Note: A&P Assessment and Plan (1) Sickle cell pain crisis: Code(s): D57.00 - Hb-SS disease with crisis, unspecified Status: Acute Assessment and Plan: consult Dr. Marks for further recommendations. NS at 125ml/hr Dilaudid 3mg, Percocet, and Roxicodone Lovenox until INR therapeutic with warfarin, Warfarin 12mg PO tonight Will trend INR, INR tomorrow Trend CBC and BMP (2) DVT prophylaxis: Code(s): Z29.9 - Encounter for prophylactic measures, unspecified Status: Acute Assessment and Plan: Warfarin 12mg PO Trend INR INR tomorrow Morning Lovenox Subcutaneous until therapeutic (3) Chronic pain syndrome: Code(s): G89.4 - Chronic pain syndrome Status: Chronic Assessment and Plan: Home medications continued Educated about pain scale Methadone also continued (4) Chronic anticoagulation: Code(s): Z79.01 - [employer] (current) use of anticoagulants Status: Chronic Assessment and Plan: Warfarin 12mg PO Trend INR INR tomorrow Morning Lovenox Subcutaneous until therapeutic Subjective Date/time seen: 08/23/20 12:35 Patient is a 35-year-old male with history of sickle cell anemia who presented to the ED after trying anesthetic could not walk. Patient said that he was in a sickle cell crisis. Patient has current complaints of bilateral leg pain, headache that was relieved by Tylenol, back pain, and restlessness. Patient denies chest pain shortness of breath, nausea, vomiting, diarrhea, constipation, numbness and tingling, abdominal pain, weakness, fatigue, sweats, chills or lightheadedness or dizziness. Patient does see a Dr. Marks for his sickle cell disease. Patient stated the ED that he had no more pain medicines left at home however when asked he said he had pain medications left. Patient's INR is 1.3 upon admission. Patient denies being noncompliant. Explained plan to the patient patient verbalized understanding all questions were answered. Review of Systems Review of Systems: All systems reviewed & are unremarkable except as noted in HPI and below Exam Const: General: cooperative, healthy appearing, comfortable, no acute distress, well developed, alert, awake, Physically active and other (restless) Nutritional Appearance: average body habitus, well nourished and obese Orientation/consciousness: oriented to person, oriented to place, oriented to time and patient oriented x3 Limitations: no limitations HENMT: Head: normal to inspection, No palpable skull fracture present, normocephalic and atraumatic Ears: hearing grossly normal bilaterally, external ears normal, TM's normal bilaterally and TM abnormal General nose exam: Normal nares present Eyes: General: appearance normal, both eyes and all related structures Alignment and Position: alignment normal Periorbital: periorbital findings normal Eyelids: eyelids normal Conjunctivae: conjunctivae normal Sclera: sclerae normal Cornea: corneas normal Pupils: Equal, round and reactive pupils present EOM: EOMs intact bilaterally Neck: Neck: normal visual inspection, full ROM, no lymphadenopathy, trachea midline and supple Thyroid: thyroid normal Carotids: normal carotid upstroke Lymphatic: no lymphadenopathy noted Chest: Chest palpation & inspection: normal inspection of the chest Resp: Effort & Inspection: normal respiratory effort, able to speak in complete sentences and symmetric chest movement Auscultation: clear to auscultation bilaterally Percussion: percussion normal Cardio: Jugular venous distension: no JVD Palpation: normal PMI Rate: regular rate Rhythm: regular rhythm Heart sounds: S1 normal heart sound present and S2 normal heart sound present Peripheral pulses: Peripheral pulses 2+ throughout GI: Inspection: normal to inspection and non-distended GI Palp: Yes Soft to palpation and No Tenderness to palpation present (GI) Aus
--- NOTE | 2020-08-23 13:38 | PDONCCN ---
HPI - Date of Consult Date/Time: 08/23/20 13:38 Requesting Physician: Yulisa Steward MD Primary Care Provider: Jnoe Marks MD - Consult Narrative Reason for consult: Sickle cell crisis. Narrative: Quan Downing is a 35 year old male with history of sickle cell SC disease with recurrent episodes sickle cell crisis. Patient also has a history of pulmonary embolism and has been on chronic anticoagulation therapy with warfarin. He came into the hospital after developing generalized musculoskeletal pain mainly involving the ribs and the lower extremities while he was doing the barbecue on the mother's Day. He denies any fevers and chills. He denies any signs of infection. No burning in urine and upper respiratory symptoms. He was taking hydroxyurea 500 mg twice a day with warfarin 12.5 mg daily. He was started on IV hydration and Dilaudid but is still complaining of significant pain in the lower extremities. Review of Systems - Review of Systems All systems reviewed & are unremarkable except as noted in HPI and bel - Neurologic Reports system reviewed and no additional complaints, except as documented, Reports hearing normal [facility] Medical History: Medical History (Last Reviewed 08/22/20 @ 20:07 by Alis Rodriguez NP) Acute chest syndrome Chronic anticoagulation Due to history of DVT and pulmonary embolism. Chronic narcotic use On methadone with oxycodone for chronic pain related to his sickle cell disease. Deep venous thrombosis Noncompliance History of noncompliance with anticoagulation and hydroxyurea. Pulmonary embolism Sickle cell disease, type SC Surgical History: Surgical History (Last Reviewed 08/22/20 @ 20:07 by Alis Rodriguez NP) History of hand surgery Tendon surgery on right 5th finger. Family History: Family History (Last Reviewed 08/22/20 @ 20:07 by Alis Rodriguez NP) Grandparent Diabetes mellitus Acute myocardial infarction Sibling Asthma Sibling Asthma Mother Hypertension Sickle cell trait Son Sickle cell trait Daughter Sickle cell trait Grandparent No problems noted. Other Diabetes mellitus Father Sickle cell trait - Social History Social History: Social History (Last Reviewed 07/25/20 @ 20:38 by Alis Rodriguez NP) Gender Identity: Gender identity (if verbalized by the patient): Male Alcohol Use: Alcohol intake: former Substance Use: Substance use: former Others: Spiritual care concerns: No Agree to blood products: Yes Smoking Status: Smoking status: Never smoker Meds Home Medications Medication Instructions Recorded Confirmed Type folic acid 1 mg PO DAILY 02/16/19 08/22/20 History hydroxyurea 500 mg PO DAILY 08/22/20 08/22/20 History ibuprofen 800 mg PO Q4-6H PRN 08/22/20 08/22/20 History methadone 10 mg PO TID 08/22/20 08/22/20 History oxycodone-acetaminophen 1 tablet PO BID PRN 08/22/20 08/22/20 History warfarin 2 mg PO DAILY 08/22/20 08/22/20 History warfarin 10 mg PO DAILY 08/22/20 08/22/20 History Allergies Allergy/AdvReac Type Severity Reaction Status Date / Time Fish Containing Products Allergy Intermediate Itching Verified 08/22/20 16:54 Results - Labs CBC & Chem 7: 08/23/20 05:45 08/23/20 05:45 Labs: Short CBC 08/23/20 Range/Units 05:45 WBC 13.8 H (4.5-10.0) K/mm3 Hgb 10.7 L (14.0-18.0) g/dL Hct 30.3 L (42.0-52.0) % Plt Count 262 (150-375) k/mm3 BMP 08/23/20 05:45 Sodium 139 Potassium 4.3 Chloride 108 H Carbon Dioxide 24 BUN 4 L Creatinine 0.80 Glucose 94 Calcium 8.7 Liver Function 08/23/20 Range/Units 05:45 Total Bilirubin 1.0 (0.2-1.3) mg/dL AST 37 (17-59) U/L ALT 19 (4-50) U/L Alkaline Phosphatase 85 (38-126) U/L Albumin 4.3 (3.5-5.1) g/dL Assessment and Plan - Additional Plan 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 Patient was admitted with [facility]
[2020-08-23 14:00] VITALS: BP 134/73; PULSE 91; RESP 18; TEMP 36.3; O2SAT 95
[2020-08-23] MEDS: WARFARIN (*PBKC) 2 MG TABLET PO (16:59)
[2020-08-23] MEDS: WARFARIN (*PBKC) 10 MG TABLET PO (17:02)
[2020-08-23 21:53] VITALS: BP 138/69; PULSE 92; RESP 20; TEMP 36.4; O2SAT 96
[2020-08-24] MEDS: HYDROmorphone HCL INJ (*CRX) 1 MG/ML SYR 3 MG IV PUSH ×8 (00:13→22:28)
[2020-08-24] MEDS: SODIUM CHLORIDE 0.9% IV 1,000 ML 125 ML IV CONT ×3 (01:50→17:16)
[2020-08-24 04:02] VITALS: BP 125/72; PULSE 87; RESP 18; TEMP 36.2; O2SAT 96
[2020-08-24 06:09] LABS: Hemoglobin 10.2 g/dL (14.0-18.0); Mean Corpuscular Hemoglobin 31.7 pg (26-34); Mean Corpuscular Volume 93.2 fl (80-100); Mean Platelet Volume 11.2 fl (7.4-10.4); Platelet Count Result 149 k/mm3 (150-375); Red Blood Count 3.22 M/mm3 (4.6-6.20); Red Cell Distribution Width 15.1 % (11.5-14.5); White Blood Count 11.6 K/mm3 (4.5-10.0)
[2020-08-24 06:30] LABS: Alanine Aminotransferase 21 U/L (4-50); Albumin Level 4.3 g/dL (3.5-5.1); Alkaline Phosphatase 82 U/L (38-126); Anion Gap 6 mmol/L (8-16); Aspartate Amino Transferase 43 U/L (17-59); Bilirubin,Total 1.2 mg/dL (0.2-1.3); Blood Urea Nitrogen 3 mg/dL (9-20); Calcium 9.1 mg/dL (8.4-10.2); Carbon Dioxide 25 mmol/L (22-30); Chloride 107 mmol/L (98-107); Estimated CRCL calculation 171 ml/min; Estimated Glomerular Filt Rate > 60; Glucose 105 mg/dL (75-110); Lactate Dehydrogenase 850 U/L (313-618); Potassium 4.2 mmol/L (3.4-5.0); Sodium 138 mmol/L (137-145)
[2020-08-24 06:34] LABS: INR 2.2; Prothrombin Time 25.3 Seconds (11.1-14.7)
[2020-08-24 06:35] LABS: Partial Thromboplastin Time 59.4 SECONDS (22.3-36.8)
[2020-08-24] MEDS: ENOXAPARIN 100 MG/ML SYRINGE SUB-Q (09:08)
[2020-08-24] MEDS: methADONE HCL (*CRX) 10 MG TABLET PO ×3 (09:09→16:03)
[2020-08-24] MEDS: FOLIC ACID 1 MG TABLET PO (09:09)
[2020-08-24] MEDS: HYDROXYUREA (*CHEMO) 500 MG CAPSULE PO (09:09)
--- NOTE | 2020-08-24 12:32 | PM.IMPN ---
Progress Note: A&P Assessment and Plan (1) Sickle cell pain crisis: Code(s): D57.00 - Hb-SS disease with crisis, unspecified Status: Acute Assessment and Plan: consult Dr. Marks for further recommendations. Thank you NS at 125ml/hr Dilaudid 3mg, Percocet, and Roxicodone INR is 2.2 today. DC Lovenox, continue with the 12mg dose of warfarin. Will trend INR, INR tomorrow Trend CBC and BMP (2) DVT prophylaxis: Code(s): Z29.9 - Encounter for prophylactic measures, unspecified Status: Acute Assessment and Plan: Warfarin 12mg PO INR therapeutic at 2.2 Trend INR INR tomorrow Morning Lovenox Subcutaneous discontinued (3) Chronic pain syndrome: Code(s): G89.4 - Chronic pain syndrome Status: Chronic Assessment and Plan: Home medications continued Educated about pain scale Methadone also continued (4) Chronic anticoagulation: Code(s): Z79.01 - [employer] (current) use of anticoagulants Status: Chronic Assessment and Plan: See above Subjective Date/time seen: 08/24/20 12:33 35-year-old male with history of sickle cell anemia who presents to the ED after the inability to walk. Patient did state today that his pain is little better and it was an 8/10. Patient states the pain is on his bilateral thighs that radiates to the calf. He did say that the pain in his back is getting better however it is going from the ribcage to his back. Patient denies chest pain shortness of breath, nausea, vomiting, diarrhea, constipation, numbness and tingling, abdominal pain, weakness, fatigue, sweats, chills, or lightheadedness dizziness. Patient's INR did rise to 2.2 today. Will continue with the same dosing and check INR again tomorrow. Verbalized plan of care with patient and patient agrees and verbalizes understanding all questions were answered. Review of Systems Review of Systems: All systems reviewed & are unremarkable except as noted in HPI and below Exam Const: General: cooperative, healthy appearing, comfortable, no acute distress, well developed, alert, awake, Physically active and other (restless) Nutritional Appearance: average body habitus, well nourished and obese Orientation/consciousness: oriented to person, oriented to place, oriented to time and patient oriented x3 Limitations: no limitations HENMT: Head: normal to inspection, No palpable skull fracture present, normocephalic and atraumatic Ears: hearing grossly normal bilaterally, external ears normal, TM's normal bilaterally and TM abnormal General nose exam: Normal nares present Eyes: General: appearance normal, both eyes and all related structures Alignment and Position: alignment normal Periorbital: periorbital findings normal Eyelids: eyelids normal Conjunctivae: conjunctivae normal Sclera: sclerae normal Cornea: corneas normal Pupils: Equal, round and reactive pupils present EOM: EOMs intact bilaterally Neck: Neck: normal visual inspection, full ROM, no lymphadenopathy, trachea midline and supple Thyroid: thyroid normal Carotids: normal carotid upstroke Lymphatic: no lymphadenopathy noted Chest: Chest palpation & inspection: normal inspection of the chest Resp: Effort & Inspection: normal respiratory effort, able to speak in complete sentences and symmetric chest movement Auscultation: clear to auscultation bilaterally Percussion: percussion normal Cardio: Jugular venous distension: no JVD Palpation: normal PMI Rate: regular rate Rhythm: regular rhythm Heart sounds: S1 normal heart sound present and S2 normal heart sound present Peripheral pulses: Peripheral pulses 2+ throughout GI: Inspection: normal to inspection and non-distended Auscultation: normal bowel sounds Rectal Exam: deferred Skin: General skin exam: normal color Lesions: no lesions Rashes: no rashes Trauma: no lacerations or abrasions Wounds: no wounds Hair: normal
[2020-08-24 14:00] VITALS: BP 129/61; PULSE 84; RESP 16; TEMP 36.4; O2SAT 98
[2020-08-24] MEDS: WARFARIN (*PBKC) 10 MG TABLET PO (16:03)
[2020-08-24] MEDS: WARFARIN (*PBKC) 2 MG TABLET PO (16:04)
[2020-08-24 19:41] VITALS: BP 137/79; PULSE 91; RESP 18; TEMP 36.6; O2SAT 96
[2020-08-24] MEDS: oxyCODONE HCL (*CRX) 5 MG TAB IR PO (20:46)
[2020-08-24] MEDS: oxyCODONE/ACETAMINOPHEN (*CRX) 5-325 MG TABLET 1 TABLET PO (20:46)
[2020-08-25] MEDS: SODIUM CHLORIDE 0.9% IV 1,000 ML 125 ML IV CONT ×3 (01:25→17:07)
[2020-08-25] MEDS: HYDROmorphone HCL INJ (*CRX) 1 MG/ML SYR 3 MG IV PUSH ×8 (01:28→23:10)
[2020-08-25 04:12] VITALS: BP 130/74; PULSE 82; RESP 18; TEMP 36.1; O2SAT 99
[2020-08-25 06:08] LABS: Hematocrit 28.6 % (42.0-52.0); Hemoglobin 9.9 g/dL (14.0-18.0); Mean Corpuscular HGB Conc 34.6 g/dl (32-36); Mean Corpuscular Hemoglobin 31.7 pg (26-34); Mean Corpuscular Volume 91.7 fl (80-100); Mean Platelet Volume 10.2 fl (7.4-10.4); Platelet Count Result 261 k/mm3 (150-375); Red Blood Count 3.12 M/mm3 (4.6-6.20); Red Cell Distribution Width 14.9 % (11.5-14.5); White Blood Count 10.4 K/mm3 (4.5-10.0)
[2020-08-25 06:20] LABS: INR 2.3
[2020-08-25 06:21] LABS: Partial Thromboplastin Time 49.1 SECONDS (22.3-36.8)
[2020-08-25 08:02] LABS: Anion Gap 7 mmol/L (8-16); Blood Urea Nitrogen 6 mg/dL (9-20); Calcium 9.2 mg/dL (8.4-10.2); Carbon Dioxide 23 mmol/L (22-30); Chloride 109 mmol/L (98-107); Estimated CRCL calculation 171 ml/min; Estimated Glomerular Filt Rate > 60; Glucose 104 mg/dL (75-110); Lactate Dehydrogenase 682 U/L (313-618); Potassium 4.3 mmol/L (3.4-5.0); Sodium 139 mmol/L (137-145)
[2020-08-25] MEDS: HYDROXYUREA (*CHEMO) 500 MG CAPSULE PO (09:19)
[2020-08-25] MEDS: FOLIC ACID 1 MG TABLET PO (09:19)
[2020-08-25] MEDS: methADONE HCL (*CRX) 10 MG TABLET PO ×3 (09:19→17:09)
[2020-08-25 14:00] VITALS: BP 127/79; PULSE 89; RESP 18; TEMP 36.1; O2SAT 97
[2020-08-25] MEDS: WARFARIN (*PBKC) 2 MG TABLET PO (17:09)
[2020-08-25] MEDS: WARFARIN (*PBKC) 10 MG TABLET PO (17:09)
--- NOTE | 2020-08-25 18:21 | PM.IMPN ---
Progress Note: A&P Assessment and Plan (1) Sickle cell pain crisis: Code(s): D57.00 - Hb-SS disease with crisis, unspecified Status: Acute Assessment and Plan: Patient with sickle cell anemia on hydroxy urea. He is on methadone for chronic pain. He presents with acute pain crisis. He was started on IV fluids and has Dilaudid and Percocet available as needed for pain. LDH peaked at 850 yesterday but better at 682 today. Pain is better overall today. He is up walking now. Add Colace. Possibly home tomorrow. (2) Chronic pain syndrome: Code(s): G89.4 - Chronic pain syndrome Status: Chronic Assessment and Plan: Methadone continued. As above. (3) Hx of pulmonary embolus: Code(s): Z86.711 - Personal history of pulmonary embolism Status: Acute Assessment and Plan: INR subtherapeutic on admission. Was started on Lovenox and Coumadin dose was increased. INR became therapeutic so Lovenox stopped. INR 2.3 today. Continue to monitor daily. (4) DVT prophylaxis: Code(s): Z29.9 - Encounter for prophylactic measures, unspecified Status: Acute Assessment and Plan: INR therapeutic Subjective Date/time seen: 08/25/20 18:21 Interval history: 35yo male with sickle cell here for pain crisis. Pain better today. ABle to walk in halls. Pain now mostly in the right leg and left calf. Eating okay. No BMs. Exam Narrative: Exam Narrative: AF 97.0 127/79 89 19 97% ra Gen - NARD Chest - CTA bilaterally, nml RR CV - RRR S1/S2 Abd - Soft, NT/ND, Positive BS Ext - No pedal edema Psych - Nml mood and affect Skin - Warm and dry Objective Data Vital Signs Vital Signs: Vital Signs - 24 hr 08/24/20 19:41 08/25/20 04:12 08/25/20 14:00 Temperature 98 F 97 F L 97 F L Pulse Rate 91 82 89 Respiratory Rate 18 18 18 Blood Pressure 137/79 130/74 127/79 Pulse Oximetry 96 99 97 Intake/Output Intake/Output: Intake & Output 08/22/20 08/23/20 08/24/20 08/25/20 23:59 23:59 23:59 23:59 Intake Total 1240 4800 4675 3690 Output Total 300 4300 4400 2325 Balance 940 453 798 9310 Meds/Results Medications: Active Medications Generic Name Dose Route Start Last Admin Trade Name Freq PRN Reason Stop Dose Admin Acetaminophen 650 mg 08/22/20 15:41 08/23/20 05:50 Acetaminophen 325 Mg Tablet PO 650 mg Q4H PRN Administration Mild Pain (1-3) or Fever Diphenhydramine HCl 25 mg 08/22/20 18:03 Diphenhydramine Hcl Cap 25 Mg Capsule PO Q6H PRN Itching Folic Acid 1 mg 08/23/20 09:00 08/25/20 09:19 Folic Acid 1 Mg Tablet PO 1 mg DAILY CHRISTOPHER Administration Hydromorphone HCl 3 mg 08/22/20 19:55 08/25/20 17:06 Hydromorphone Hcl Inj (*Crx) 1 Mg/Ml Syr IV PUSH 3 mg Q3H PRN Administration Pain Rated 7-10 Hydroxyurea 500 mg 08/23/20 09:00 08/25/20 09:19 Hydroxyurea (*Chemo) 500 Mg Capsule PO 500 mg DAILY CHRISTOPHER Administration Sodium Chloride 1,000 mls @ 125 mls/hr 08/22/20 15:45 08/25/20 17:07 Normal Saline Iv IV CONT 125 mls/hr .Q8H CHRISTOPHER Administration Methadone HCl 10 mg 08/23/20 09:00 08/25/20 17:09 Methadone Hcl (*Crx) 10 Mg Tablet PO 10 mg TID CHRISTOPHER Administration Ondansetron HCl 4 mg 08/22/20 15:41 08/22/20 17:17 Ondansetron Inj 4 Mg/2 Ml Vial IV PUSH 4 mg Q4H PRN Administration Nausea Oxycodone HCl 5 mg 08/22/20 18:53 08/24/20 20:46 Oxycodone Hcl (*Crx) 5 Mg Tab Ir PO 5 mg BID PRN Administration Pain, Moderate 4-6 Oxycodone/Acetaminophen 1 tablet 08/22/20 18:02 08/24/20 20:46 Oxycodone/Acetaminophen (*Crx) 5-325 Mg Tablet PO 1 tablet BID PRN Administration Pain, Moderate 4-6 Warfarin Sodium 10 mg 08/23/20 17:00 08/25/20 17:09 Warfarin (*Pbkc) 10 Mg Tablet PO 10 mg DAILY@1700 CHRISTOPHER Administration Warfarin Sodium 2 mg 08/23/20 17:00 08/25/20 17:09 Warfarin (*Pbkc) 2 Mg Tablet PO 2 mg DAILY@170
[2020-08-25 19:54] VITALS: BP 128/72; PULSE 87; RESP 16; TEMP 35.9; O2SAT 98
[2020-08-25] MEDS: DOCUSATE SODIUM 100 MG CAPSULE PO (20:12)
[2020-08-25] MEDS: oxyCODONE HCL (*CRX) 5 MG TAB IR PO (22:10)
[2020-08-25] MEDS: oxyCODONE/ACETAMINOPHEN (*CRX) 5-325 MG TABLET 1 TABLET PO (22:10)
[2020-08-26] MEDS: HYDROmorphone HCL INJ (*CRX) 1 MG/ML SYR 3 MG IV PUSH ×7 (02:13→23:05)
[2020-08-26] MEDS: SODIUM CHLORIDE 0.9% IV 1,000 ML 75 ML IV CONT ×2 (05:08→16:38)
[2020-08-26 06:00] VITALS: BP 117/65; PULSE 72; RESP 16; TEMP 35.8; O2SAT 97
[2020-08-26] MEDS: methADONE HCL (*CRX) 10 MG TABLET PO ×3 (08:48→16:40)
[2020-08-26] MEDS: HYDROXYUREA (*CHEMO) 500 MG CAPSULE PO (08:48)
[2020-08-26] MEDS: FOLIC ACID 1 MG TABLET PO (08:48)
[2020-08-26] MEDS: DOCUSATE SODIUM 100 MG CAPSULE PO ×2 (08:48→19:52)
[2020-08-26 11:59] LABS: Hemoglobin 9.9 g/dL (14.0-18.0); Mean Corpuscular HGB Conc 35.4 g/dl (32-36); Mean Corpuscular Hemoglobin 31.1 pg (26-34); Mean Corpuscular Volume 88.1 fl (80-100); Mean Platelet Volume 10.5 fl (7.4-10.4); Platelet Count Result 300 k/mm3 (150-375); Red Blood Count 3.18 M/mm3 (4.6-6.20); Red Cell Distribution Width 14.4 % (11.5-14.5); White Blood Count 8.5 K/mm3 (4.5-10.0)
[2020-08-26 12:03] LABS: Lactate Dehydrogenase 728 U/L (313-618)
[2020-08-26 12:08] LABS: INR 2.3; Prothrombin Time 26.1 Seconds (11.1-14.7)
--- NOTE | 2020-08-26 12:14 | PM.IMPN ---
Progress Note: A&P Assessment and Plan (1) Sickle cell pain crisis: Code(s): D57.00 - Hb-SS disease with crisis, unspecified Status: Acute Assessment and Plan: Patient with sickle cell anemia on hydroxyurea. He is on methadone for chronic pain. He presents with acute pain crisis. He was started on IV fluids and has Dilaudid and Percocet available as needed for pain. LDH peaked at 850 but better at 682 yesterday; LDH worse today at 728. Pain is better overall but still persistent. Continue Colace. Encouraged patient to be out of bed walking in halls. Possibly home tomorrow. (2) Chronic pain syndrome: Code(s): G89.4 - Chronic pain syndrome Status: Chronic Assessment and Plan: Methadone continued. As above. (3) Hx of pulmonary embolus: Code(s): Z86.711 - Personal history of pulmonary embolism Status: Acute Assessment and Plan: INR subtherapeutic on admission. Was started on Lovenox and Coumadin dose was increased. INR became therapeutic so Lovenox stopped. INR 2.3 today. Continue to monitor daily. (4) DVT prophylaxis: Code(s): Z29.9 - Encounter for prophylactic measures, unspecified Status: Acute Assessment and Plan: INR therapeutic Subjective Date/time seen: 08/26/20 12:14 Interval history: 35yo male with sickle cell here for pain crisis. Still with pain mostly in the legs. Not up walking yet this morning. Symptoms seem to be worse at night. Not much back pain now Exam Narrative: Exam Narrative: AF 96.5 117/65 72 16 97% ra Gen - NARD Chest - CTA bilaterally, nml RR CV - RRR S1/S2 Abd - Soft, NT/ND, Positive BS Ext - No pedal edema Psych - Nml mood and affect Skin - Warm and dry Objective Data Vital Signs Vital Signs: Vital Signs - 24 hr 08/25/20 14:00 08/25/20 19:54 08/26/20 06:00 Temperature 97 F L 96.6 F L 96.5 F L Pulse Rate 89 87 72 Respiratory Rate 18 16 16 Blood Pressure 127/79 128/72 117/65 Pulse Oximetry 97 98 97 Intake/Output Intake/Output: Intake & Output 08/23/20 08/24/20 08/25/20 08/26/20 23:59 23:59 23:59 23:59 Intake Total 4800 7646 4234 1240 Output Total 4303 8335 3521 850 Balance 500 275 705 390 Meds/Results Medications: Active Medications Generic Name Dose Route Start Last Admin Trade Name Freq PRN Reason Stop Dose Admin Acetaminophen 650 mg 08/22/20 15:41 08/23/20 05:50 Acetaminophen 325 Mg Tablet PO 650 mg Q4H PRN Administration Mild Pain (1-3) or Fever Diphenhydramine HCl 25 mg 08/22/20 18:03 Diphenhydramine Hcl Cap 25 Mg Capsule PO Q6H PRN Itching Docusate Sodium 100 mg 08/25/20 21:00 08/26/20 08:48 Docusate Sodium 100 Mg Capsule PO 100 mg Q12HR CHRISTOPHER Administration Folic Acid 1 mg 08/23/20 09:00 08/26/20 08:48 Folic Acid 1 Mg Tablet PO 1 mg DAILY CHRISTOPHER Administration Hydromorphone HCl 3 mg 08/22/20 19:55 08/26/20 11:57 Hydromorphone Hcl Inj (*Crx) 1 Mg/Ml Syr IV PUSH 3 mg Q3H PRN Administration Pain Rated 7-10 Hydroxyurea 500 mg 08/23/20 09:00 08/26/20 08:48 Hydroxyurea (*Chemo) 500 Mg Capsule PO 500 mg DAILY CHRISTOPHER Administration Sodium Chloride 1,000 mls @ 75 mls/hr 08/22/20 15:45 08/26/20 05:08 Normal Saline Iv IV CONT 75 mls/hr .[id number] CHRISTOPHER Administration Methadone HCl 10 mg 08/23/20 09:00 08/26/20 12:02 Methadone Hcl (*Crx) 10 Mg Tablet PO 10 mg TID CHRISTOPHER Administration Ondansetron HCl 4 mg 08/22/20 15:41 08/22/20 17:17 Ondansetron Inj 4 Mg/2 Ml Vial IV PUSH 4 mg Q4H PRN Administration Nausea Oxycodone HCl 5 mg 08/22/20 18:53 08/25/20 22:10 Oxycodone Hcl (*Crx) 5 Mg Tab Ir PO 5 mg BID PRN Administration Pain, Moderate 4-6 Oxycodone/Acetaminophen 1 tablet 08/22/20 18:02 08/25/20 22:10 Oxycodone/Acetaminophen (*Crx) 5-325 Mg Tablet PO 1 tablet BID PRN Administration Pain, Moderate 4-6 Warfarin Sodium 1
[2020-08-26 14:00] VITALS: BP 121/67; PULSE 81; RESP 18; TEMP 36.2; O2SAT 98
--- NOTE | 2020-08-26 16:34 | WPDONCPN ---
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 Patient was admitted with sickle cell crisis. He is clinically feeling better with IV hydration and current pain management. Labs showed stable hemoglobin. She is LDH remains elevated. Hopefully he will be able to go home in next 24 hours. He will continue his home pain medication. Recurrent pulmonary embolism. Continue warfarin 12 mg daily. INR has improved and now therapeutic range. - Time Spent With Patient Total time spent is greater than 50% in coordination of care (as documented) at patient's floor/unit and/or counseling patient: 15 - 25 minutes Subjective Interval history: Sickle cell anemia with sickle cell crisis Recurrent pulmonary embolism Review of Systems - Review of Systems Patient is feeling better with the improvement in his pain control. Now he is having some right leg pain. Denies any chest pain. No shortness of breath. No fevers and chills. - Neurologic Reports system reviewed and no additional complaints, except as documented, Reports hearing normal Exam Vital signs: Temp Pulse Resp BP Pulse Ox 36.2 C L 81 18 121/67 98 08/26/20 14:00 08/26/20 14:00 08/26/20 14:00 08/26/20 14:00 08/26/20 14:00 Narrative: Lungs are clear to auscultation bilaterally Cardiovascular regular rate rhythm no murmurs Abdomen soft nontender nondistended bowel sounds are positive Extremities no edema PN: Objective Data - Labs CBC & Chem 7: 08/26/20 11:33 08/25/20 07:28 Labs: Laboratory Results - last 24 hr 08/26/20 08/26/20 08/26/20 11:33 11:33 11:33 WBC 8.5 RBC 3.18 L Hgb 9.9 L Hct 28.0 L MCV 88.1 MCH 31.1 MCHC 35.4 RDW 14.4 Plt Count 300 MPV 10.5 H PT 26.1 H INR 2.3 Lactate Dehydrogenase 728 H
[2020-08-26] MEDS: WARFARIN (*PBKC) 2 MG TABLET PO (16:40)
[2020-08-26] MEDS: WARFARIN (*PBKC) 10 MG TABLET PO (16:41)
[2020-08-26 21:15] VITALS: BP 120/61; PULSE 84; RESP 16; TEMP 35.8; O2SAT 99
[2020-08-27] MEDS: HYDROmorphone HCL INJ (*CRX) 1 MG/ML SYR 3 MG IV PUSH ×5 (02:14→15:34)
[2020-08-27] MEDS: oxyCODONE HCL (*CRX) 5 MG TAB IR PO (03:50)
[2020-08-27] MEDS: oxyCODONE/ACETAMINOPHEN (*CRX) 5-325 MG TABLET 1 TABLET PO (03:51)
[2020-08-27 05:52] VITALS: BP 118/70; PULSE 74; RESP 16; TEMP 35.8; O2SAT 100
[2020-08-27] MEDS: SODIUM CHLORIDE 0.9% IV 1,000 ML 75 ML IV CONT (05:58)
[2020-08-27 09:14] LABS: Anion Gap 8 mmol/L (8-16); Blood Urea Nitrogen 8 mg/dL (9-20); Calcium 9.4 mg/dL (8.4-10.2); Carbon Dioxide 23 mmol/L (22-30); Chloride 108 mmol/L (98-107); Estimated CRCL calculation 171 ml/min; Estimated Glomerular Filt Rate > 60; Glucose 103 mg/dL (75-110); Lactate Dehydrogenase 905 U/L (313-618); Potassium 4.4 mmol/L (3.4-5.0); Sodium 139 mmol/L (137-145)
[2020-08-27] MEDS: methADONE HCL (*CRX) 10 MG TABLET PO ×2 (09:24→12:14)
[2020-08-27] MEDS: FOLIC ACID 1 MG TABLET PO (09:25)
[2020-08-27] MEDS: HYDROXYUREA (*CHEMO) 500 MG CAPSULE PO (09:25)
[2020-08-27 09:30] LABS: Basophils Absolute Auto 0.1 K/mm3 (0.0-0.1); Basophils Percent Auto 1.1 % (0.2-1.2); Eosinophils Absolute Auto 0.4 K/mm3 (0-0.3); Eosinophils Percent Auto 4.2 % (0-4.4); Hematocrit 30.5 % (42.0-52.0); Hemoglobin 10.6 g/dL (14.0-18.0); Immature Granulocyte Absolute 0.03 K/mm3 (0.00-0.031); Immature Granulocyte Percent A 0.4 % (0-0.5); Lymphocytes Absolute Auto 3.24 K/mm3 (0.9-3.2); Lymphocytes Percent Auto 39.1 % (18.3-44.2); Mean Corpuscular HGB Conc 34.8 g/dl (32-36); Mean Corpuscular Hemoglobin 32.2 pg (26-34); Mean Corpuscular Volume 92.7 fl (80-100); Mean Platelet Volume 11.3 fl (7.4-10.4); Monocytes Absolute Auto 0.7 K/mm3 (0.1-0.6); Monocytes Percent Auto 7.8 % (2.6-8.5); Neutrophils Absolute Auto 3.9 K/mm3 (1.3-6.7); Neutrophils Percent Auto 47.4 % (45.5-73.1); Nucleated Red Blood Cells Perc 0.2 % (0.0-0.2); Platelet Count Result 205 k/mm3 (150-375); Red Blood Count 3.29 M/mm3 (4.6-6.20); White Blood Count 8.3 K/mm3 (4.5-10.0)
[2020-08-27 09:34] VITALS: O2SAT 94
--- NOTE | 2020-08-27 13:53 | PM.DS ---
DS: Admitting Diagnosis Admitting Diagnosis Admitting Diagnosis: Bilateral leg pain DS: Discharge Diagnosis Discharge Diagnosis (1) Sickle cell pain crisis: Code(s): D57.00 - Hb-SS disease with crisis, unspecified Status: Acute Assessment and Plan: Patient with sickle cell anemia on hydroxyurea. He is on methadone for chronic pain. He presented with acute pain crisis. He was started on IV fluids and had Dilaudid and Percocet available as needed for pain. LDH was down to 682 but climbed to 905 prior to discharge. It was a difficult draw. Pain is better overall. Patient was up walking in the room. Eating normally. Patient feels he is ready for discharge. Discussed with Hematology about the clinical picture and the elevated LDH. It was felt that since patient feels ready and that his pain is better, than okay for discharge. (2) Chronic pain syndrome: Code(s): G89.4 - Chronic pain syndrome Status: Chronic Assessment and Plan: Patient with chronic pain syndrome on chronic Methadone which was continued here. (3) Hx of pulmonary embolus: Code(s): Z86.711 - Personal history of pulmonary embolism Status: Acute Assessment and Plan: INR subtherapeutic on admission. He was started on Lovenox and Coumadin was resumed. INR became therapeutic so Lovenox stopped. INR 2.3 yesterday (had hard time drawing labs today so INR not collected today). DS: Summary Hospital Course Reason for hospitalization: 35yo male with sickle cell anemia presents with leg and rib pain. Please see H&P for details. Hospital Course: Please see above for details of hospital course. Status at Discharge Cognitive/behavioral status at discharge: stable Time Spent with Patient Time attestation: Total time spent providing and/or coordinating discharge services: 35 minutes Time spent: Greater than 30 minutes Specific discharge activities: Discussed with patiet about need to stay well hydrated and avoid smoking, alcohol and caffeine. Discussed with Dr Marks Exam Narrative: Exam Narrative: AF 96.5 118/70 74 16 94% ra Gen - NARD Chest - CTA bilaterally, nml RR CV - RRR S1/S2 Abd - Soft, NT/ND, Positive BS Ext - No pedal edema Psych - Nml mood and affect Skin - Warm and dry DS: Data Data Completed and Pending Labs on day of discharge: Labs from last 24 hours 08/27/20 08/27/20 08:39 08:39 WBC 8.3 RBC 3.29 L Hgb 10.6 L Hct 30.5 L MCV 92.7 D MCH 32.2 MCHC 34.8 RDW 15.0 H Plt Count 205 MPV 11.3 H Immature Gran % (Auto) 0.4 Neut % (Auto) 47.4 Lymph % (Auto) 39.1 [place] % (Auto) 7.8 Eos % (Auto) 4.2 Baso % (Auto) 1.1 Lymph # (Auto) 3.24 H [place] # (Auto) 0.7 H Eos # (Auto) 0.4 H Baso # (Auto) 0.1 Abs Immat Gran (auto) 0.03 Absolute Neuts (auto) 3.9 Absolute Nucleated RBC 0.0 Nucleated RBC % 0.2 Sodium 139 Potassium 4.4 Chloride 108 H Carbon Dioxide 23 Anion Gap 8 BUN 8 L Creatinine 0.60 L Estim Creat Clear Calc 171 Estimated GFR > 60 Glucose 103 Calcium 9.4 Lactate Dehydrogenase 905 H Discharge Plan Discharge Attending physician on discharge: Juvencio Hammond Consulting providers: Jone Marks Discharging Clinician: Juvencio Hammond Anticipated Discharge Date/Time: 08/27/20 14:08 Patient Disposition: Home, Self-Care Activity: as tolerated Diet: regular Discharge Instructions: Please avoid large gathering, wear face coverings in public and practice social distance. Contact your doctor or come to the Emergency Room if you have increasing pain or other worrisome symptoms. Avoid NSAIDs (ibuprofen, naproxen, Aleve). Tylenol is safe to take. Follow-up with your primary care doctor in 1-2 weeks. Please call for appointment. Follow-up with Dr Marks. Please call for appointment. Patient Instructions: Antibiotic Form, Warfarin (By mouth), Hydromor
== END 2020-08-27 15:50 | disposition home or self-care (01) | DRG 662 ==
LOC: ANHED 15:47 → ANH3MED 16:15
PROVIDERS: Internal Medicine; Nurse Practitioner; Admitting Provider Hospitalist; Emergency Provider Emergency Medicine; PCP Internal Medicine Hematology & Oncology; Visit Provider Nurse Practitioner
DX: D57.00 Hb-SS disease with crisis, unspecified (principal); G89.4 Chronic pain syndrome; Z79.01 Long term (current) use of anticoagulants; Z86.711 Personal history of pulmonary embolism; Z86.718 Personal history of other venous thrombosis and embolism
CPT/HCPCS: 36415; 80048; 80053; 83615; 83735; 85025; 85027; 85046; 85055; 85610; 85730; 96361; 96372; 96374; 96375; 96376; 99285; A9270; G0378; G0379; J1170; J1650; J2405; J7030

== ENCOUNTER 2020-10-04 13:41 | Inpatient (IN) | payer OTHER, SELFPAY ==
--- NOTE | ~2020-10-04 | XR_ITS ---
XR chest 2V 10/06/2020 11:13 Indication: Body aches. Procedure: AP and lateral views of the chest Comparison: Comparison to multiple prior studies sequentially, with oldest reviewed study dated 01/03. Findings: There is chronic bibasilar atelectasis/scarring. Heart size normal. No acute focal pneumoni a, edema or pleural effusion. No pneumothorax. No acute osseous abnormality. Impression: 1: No acute cardiopulmonary disease. 2: Chronic bibasilar atelectasis/scarring. Reviewed, dictated and finalized at location B. Impression: 1: No acute cardiopulmonary disease. 2: Chronic bibasilar atelectasis/scarring.
[2020-10-04 13:45] VITALS: BP 140/74; PULSE 86; RESP 20; TEMP 36.3; O2SAT 95
--- NOTE | 2020-10-04 15:15 | ED.GENADULT ---
HPI - General Adult General Chief complaint: Unspecified Stated complaint: Sickle Cell Pain Time Seen by Provider: 10/04/20 14:48 History of Present Illness HPI narrative: 35 yo male with sickle cell disease presents to the ED with c/o pain. He reports pain in the chest wall, back, and legs since yesterday. This is similar to his usual pain crises. Tried using home pain medication without relief. No chest pain, sob, fever. Related Data Home Medications Medication Instructions Recorded Confirmed folic acid 1 mg PO DAILY 02/16/19 08/22/20 hydroxyurea 500 mg PO DAILY 08/22/20 08/22/20 methadone 10 mg PO TID 08/22/20 08/22/20 oxycodone-acetaminophen 1 tablet PO BID PRN 08/22/20 08/22/20 warfarin 2 mg PO DAILY 08/22/20 08/22/20 warfarin 10 mg PO DAILY 08/22/20 08/22/20 Allergies Allergy/AdvReac Type Severity Reaction Status Date / Time Fish Containing Products Allergy Intermediate Itching Verified 10/04/20 14:48 Review of Systems Review of Systems: All systems reviewed & are unremarkable except as noted in HPI and below Constitutional: Constitutional: Reports no additional constitutional complaints ENT: Reports system reviewed and no additional complaints, except as documented Cardiovascular: Cardiovascular: Denies chest pain Respiratory: Respiratory: Denies dyspnea Gastrointestinal: Gastrointestinal: Denies abdominal pain and Denies vomiting Genitourinary: Genitourinary: Reports no additional male genitourinary complaints Musculoskeletal: Musculoskeletal: Reports back pain, Reports myalgias and Reports arthralgias Neurologic: Reports system reviewed and no additional complaints, except as documented [facility] Past Medical History Medical History Acute chest syndrome Chronic anticoagulation Due to history of DVT and pulmonary embolism. Chronic narcotic use On methadone with oxycodone for chronic pain related to his sickle cell disease. Deep venous thrombosis Noncompliance History of noncompliance with anticoagulation and hydroxyurea. Pulmonary embolism Sickle cell disease, type SC Surgical History Surgical History History of hand surgery Tendon surgery on right 5th finger. Family History Family History Grandparent Diabetes mellitus Acute myocardial infarction Sibling Asthma Sibling Asthma Mother Hypertension Sickle cell trait Son Sickle cell trait Daughter Sickle cell trait Grandparent No problems noted. Other Diabetes mellitus Father Sickle cell trait Social History Social History Social History: The patient lives in [place] with his family. He is on disability due to sickle cell disease and chronic pain. He designates his friend, Keyla Luther, as his surrogate decision maker and he wishes to be a full code. He is a lifelong nonsmoker and denies alcohol and drug use. The patient has 2 children who have the sickle cell trait. Smoking status: Never smoker Alcohol intake: former Substance use: former Additional occupation/education comments: Gender identity (if verbalized by the patient): Male Spiritual care concerns: No Agree to blood products: Yes Exam Const: General: healthy appearing, comfortable and alert Orientation/consciousness: patient oriented x3 HENMT: Other: right wisdom tooth abnormal orientation without acute findings Neck: Neck: normal visual inspection Chest: Other: tender throughout right side Resp: Effort & Inspection: normal respiratory effort and able to speak in complete sentences Auscultation: clear to auscultation bilaterally Cardio: Rate: regular rate Rhythm: regular rhythm GI: Inspection: normal to inspection GI Palp: Yes Soft to palpation and Yes Tenderness to palpation present (GI) S
[2020-10-04 15:18] LABS: Basophils Absolute Auto 0.1 K/mm3 (0.0-0.1); Basophils Percent Auto 0.5 % (0.2-1.2); Eosinophils Absolute Auto 0.1 K/mm3 (0-0.3); Eosinophils Percent Auto 0.7 % (0-4.4); Hematocrit 27.6 % (42.0-52.0); Hemoglobin 9.7 g/dL (14.0-18.0); Immature Granulocyte Percent A 0.9 % (0-0.5); Immature Platelet Fraction Pct 6.7 % (0.9-11.2); Immature Reticulocyte Fraction 29.3 % (3.0-15.9); Lymphocytes Absolute Auto 3.29 K/mm3 (0.9-3.2); Lymphocytes Percent Auto 29.4 % (18.3-44.2); Mean Corpuscular HGB Conc 35.1 g/dl (32-36); Mean Corpuscular Hemoglobin 31.2 pg (26-34); Mean Corpuscular Volume 88.7 fl (80-100); Mean Platelet Volume 10.5 fl (7.4-10.4); Monocytes Absolute Auto 0.8 K/mm3 (0.1-0.6); Monocytes Percent Auto 6.8 % (2.6-8.5); Neutrophils Absolute Auto 6.9 K/mm3 (1.3-6.7); Neutrophils Percent Auto 61.7 % (45.5-73.1); Nucleated Red Blood Cells Absolute Auto 0.1 K/mm3 (0.0-0.012); Nucleated Red Blood Cells Perc 0.5 % (0.0-0.2); Platelet Count Result 286 k/mm3 (150-375); Red Blood Count 3.11 M/mm3 (4.6-6.20); Red Cell Distribution Width 14.4 % (11.5-14.5); Reticulocyte Hemoglobin Conten 30.5 pg (28.2-35.7); Reticulocyte Percent 5.42 % (0.7-4.3); Reticulocytes Absolute 0.17 B/L (32.2-175.7); White Blood Count 11.2 K/mm3 (4.5-10.0)
[2020-10-04 15:24] LABS: INR 1.3; Prothrombin Time 16.8 Seconds (11.1-14.7)
[2020-10-04] MEDS: HYDROmorphone HCL INJ (*CRX) 1 MG/ML SYR 2 MG IV PUSH ×2 (15:24→16:37)
[2020-10-04 15:25] LABS: Anion Gap 7 mmol/L (8-16); Blood Urea Nitrogen 6 mg/dL (9-20); Calcium 9.2 mg/dL (8.4-10.2); Carbon Dioxide 26 mmol/L (22-30); Chloride 110 mmol/L (98-107); Estimated CRCL calculation 117 ml/min; Estimated Glomerular Filt Rate > 60; Glucose 106 mg/dL (75-110); Partial Thromboplastin Time 26.9 SECONDS (22.3-36.8); Sodium 143 mmol/L (137-145)
[2020-10-04] MEDS: SODIUM CHLORIDE 0.9% IV 1,000 ML 999 ML IV CONT (15:25)
[2020-10-04 16:01] LABS: Platelet Estimate Adequate (Adequate)
[2020-10-04 16:02] LABS: Hypochromasia 1+ (NORMAL)
[2020-10-04 16:03] LABS: Sickle Cells 1+ (NORMAL); Target Cells 1+ (NORMAL)
[2020-10-04 16:05] LABS: Anisocytosis 2+ (NORMAL); Polychromasia 1+ (NORMAL)
[2020-10-04 18:25] VITALS: BP 120/79; PULSE 75; RESP 18; O2SAT 100
[2020-10-04 19:27] VITALS: BP 138/89; PULSE 116; RESP 17; TEMP 36.7; O2SAT 98
[2020-10-04 19:45] VITALS: BMI 32.8
[2020-10-04] MEDS: HYDROmorphone HCL INJ (*CRX) 1 MG/ML SYR IV PUSH ×2 (20:00→22:03)
--- NOTE | 2020-10-04 20:09 | ADMGEN ---
This patient, Quan Downing, was admitted to 3 [facility] Surg Room 317-02. Patient/family oriented to hospital policies and general routines including ID bracelet, bed and alarms, visiting hours, pain management, procedures, bathroom and other care routines, personal items, smoking policy, room service/diet, and visiting hours. Information on how to activate the Rapid Response Team has been discussed. Patient/Family are encouraged to report perceived risks to care and to ask questions if they do not understand what they are told or what they should do.
[2020-10-04 22:00] VITALS: BP 145/93; PULSE 77; RESP 20; TEMP 36.2; O2SAT 99; BMI 33.2
[2020-10-04] MEDS: LACTATED RINGERS 1,000 ML 100 ML IV CONT (22:16)
--- NOTE | 2020-10-04 22:56 | PM.IMHP ---
H&P: HPI History of Present Illness Date/Time: 10/04/20 22:56Thiandrzej is a 35-year-old male patient who has a history sickle cell anemia and DVTs. The patient is here quite frequently and his last admission he was discharged on 08/27/2020. The patient stated that he was outside playing with his son on Saturday and felt like he had not hydrated himself very well and felt like maybe he over did it on Saturday. The patient was trying not to be readmitted again. However he took his routine medications as per patient any continue to have back pain chest wall pain and leg since yesterday. The pain is similar to previous sickle cell crisis. His H&H is 9.7 and 27.6. White count is 11.2. His absolute reticular was 0.17. Percentage reticular is 5.42. His INR was only 1.3. I did not see a lactic dehydrogenase this admission. The patient was given IV fluids and Dilaudid in the emergency room. The patient stated that he thinks he will allow the pain to get out of control and that he feels like he might need a pump this time. The patient is being admitted to observation status on the date of service of 10/05/2019 Chief Complaint: sickle cell pain crisis Review of Systems Review of Systems: All systems reviewed & are unremarkable except as noted in HPI and below Constitutional: Constitutional: Reports as per HPI and Reports no additional constitutional complaints Eyes: Eyes: Reports as per HPI and Reports no additional eye complaints ENT: Reports system reviewed and no additional complaints, except as documented and Reports Normal hearing present Cardiovascular: Cardiovascular: Reports no additional cardiovascular complaints Respiratory: Respiratory: Reports no additional respiratory complaints and Reports no additional respiratory complaints Gastrointestinal: Gastrointestinal: Reports as per HPI and Reports no additional gastrointestinal complaints Musculoskeletal: Musculoskeletal: Reports no additional musculoskeletal complaints Integumentary/Breasts: Skin/Breast: Reports system reviewed and no additional complaints, except as docu and Reports as per HPI Neurologic: Reports system reviewed and no additional complaints, except as documented, Reports as per HPI and Reports Normal hearing present Psychiatric: Psychiatric: Reports no additional psychiatric complaints and Reports as per HPI Endocrine: Endocrine: Reports no additional endocrine complaints Hematologic/Lymphatic: Hematologic/Lymphatic: Reports no additional hematologic/lymphatic complaints Allergic/Immunologic: Allergic/Immunologic: Reports no additional allergic/immunologic complaints [facility] Past Medical History Medical History Acute chest syndrome Chronic anticoagulation Due to history of DVT and pulmonary embolism. Chronic narcotic use On methadone with oxycodone for chronic pain related to his sickle cell disease. Deep venous thrombosis Noncompliance History of noncompliance with anticoagulation and hydroxyurea. Pulmonary embolism Sickle cell disease, type SC Surgical History Surgical History History of hand surgery Tendon surgery on right 5th finger. Family History Family History Grandparent Diabetes mellitus Acute myocardial infarction Sibling Asthma Sibling Asthma Mother Hypertension Sickle cell trait Son Sickle cell trait Daughter Sickle cell trait Grandparent No problems noted. Other Diabetes mellitus Father Sickle cell trait Social History Social History Social History: The patient lives in [place] with his family. He is on disability due to sickle cell disease and chronic pain. He designates his friend, Keyla Ashkan, as his surrogate decision maker and he wishes to be a full code. He is a lifelong nonsmoker and d
[2020-10-05] MEDS: HYDROmorphone HCL INJ (*CRX) 1 MG/ML SYR 3 MG IV PUSH ×7 (00:11→20:18)
[2020-10-05] MEDS: ENOXAPARIN 120 MG/0.8 ML SYRINGE 105 MG SUB-Q ×2 (00:12→10:46)
[2020-10-05] MEDS: methADONE HCL (*CRX) 10 MG TABLET PO ×4 (03:32→17:16)
[2020-10-05 06:00] VITALS: BP 129/85; PULSE 80; RESP 20; TEMP 36.7; O2SAT 98
[2020-10-05 06:20] LABS: Basophils Absolute Auto 0.1 K/mm3 (0.0-0.1); Basophils Percent Auto 0.6 % (0.2-1.2); Eosinophils Absolute Auto 0.1 K/mm3 (0-0.3); Eosinophils Percent Auto 0.6 % (0-4.4); Hematocrit 29.4 % (42.0-52.0); Immature Granulocyte Absolute 0.07 K/mm3 (0.00-0.031); Immature Granulocyte Percent A 0.5 % (0-0.5); Lymphocytes Absolute Auto 4.27 K/mm3 (0.9-3.2); Lymphocytes Percent Auto 29.9 % (18.3-44.2); Mean Corpuscular Hemoglobin 31.1 pg (26-34); Mean Corpuscular Volume 91.3 fl (80-100); Mean Platelet Volume 10.8 fl (7.4-10.4); Monocytes Absolute Auto 1.1 K/mm3 (0.1-0.6); Monocytes Percent Auto 7.8 % (2.6-8.5); Neutrophils Absolute Auto 8.7 K/mm3 (1.3-6.7); Neutrophils Percent Auto 60.6 % (45.5-73.1); Nucleated Red Blood Cells Absolute Auto 0.1 K/mm3 (0.0-0.012); Nucleated Red Blood Cells Perc 0.4 % (0.0-0.2); Platelet Count Result 268 k/mm3 (150-375); Red Blood Count 3.22 M/mm3 (4.6-6.20); Red Cell Distribution Width 14.6 % (11.5-14.5); White Blood Count 14.3 K/mm3 (4.5-10.0)
[2020-10-05 06:27] LABS: INR 1.8; Prothrombin Time 21.7 Seconds (11.1-14.7)
[2020-10-05 06:53] LABS: Platelet Estimate Adequate (Adequate); Sickle Cells 1+ (NORMAL); Target Cells 1+ (NORMAL)
[2020-10-05 07:37] LABS: Alanine Aminotransferase 26 U/L (4-50); Alkaline Phosphatase 85 U/L (38-126); Anion Gap 9 mmol/L (8-16); Aspartate Amino Transferase 35 U/L (17-59); Bilirubin,Total 0.8 mg/dL (0.2-1.3); Blood Urea Nitrogen 6 mg/dL (9-20); Calcium 9.2 mg/dL (8.4-10.2); Carbon Dioxide 25 mmol/L (22-30); Chloride 107 mmol/L (98-107); Estimated CRCL calculation 134 ml/min; Estimated Glomerular Filt Rate > 60; Glucose 101 mg/dL (75-110); Lactate Dehydrogenase 784 U/L (313-618); Potassium 4.2 mmol/L (3.4-5.0); Sodium 141 mmol/L (137-145)
[2020-10-05 08:04] LABS: Thyroid Stimulating Hormone Reflex 0.565 uIU/mL (0.465-4.68)
[2020-10-05] MEDS: HYDROXYUREA (*CHEMO) 500 MG CAPSULE PO (09:16)
[2020-10-05] MEDS: FOLIC ACID 1 MG TABLET PO (09:16)
[2020-10-05] MEDS: LACTATED RINGERS 1,000 ML 100 ML IV CONT ×2 (09:18→20:18)
--- NOTE | 2020-10-05 10:06 | PM.IMPN ---
Progress Note: A&P Assessment and Plan (1) Hx of pulmonary embolus: Code(s): Z86.711 - Personal history of pulmonary embolism Status: Acute Assessment and Plan: Anticoagulation with Coumadin, monitor respiratory status (2) Sickle cell pain crisis: Code(s): D57.00 - Hb-SS disease with crisis, unspecified Status: Acute Assessment and Plan: Hydration, pain control, consult hematology (3) Tooth pain: Code(s): K08.89 - Other specified disorders of teeth and supporting structures Status: Acute Assessment and Plan: Starting Augmentin, no significant swelling of excoriation on exam, follow up with dentist as an outpatient. Subjective Date/time seen: 10/05/20 10:06 Patient still complains of generalized body pain, patient is resting comfortably talking on the phone no acute distress. Exam Const: General: cooperative and no acute distress HENMT: Head: normal to inspection Eyes: General: appearance normal, both eyes and all related structures Neck: Neck: normal visual inspection Chest: Chest palpation & inspection: normal inspection of the chest Resp: Effort & Inspection: normal respiratory effort Cardio: Jugular venous distension: no JVD Rate: regular rate GI: Inspection: normal to inspection and non-distended Objective Data Vital Signs Vital Signs: Vital Signs - 24 hr 10/04/20 13:45 10/04/20 18:25 10/04/20 19:27 Temperature 97.4 F L 98.1 F Pulse Rate 86 75 116 H Respiratory Rate 20 18 17 Blood Pressure 140/74 120/79 138/89 Pulse Oximetry 95 100 98 10/04/20 22:00 10/05/20 06:00 Temperature 97.2 F L 98.1 F Pulse Rate 77 80 Respiratory Rate 20 20 Blood Pressure 145/93 H 129/85 Pulse Oximetry 99 98 Intake/Output Intake/Output: Intake & Output 10/02/20 10/03/20 10/04/20 10/05/20 23:59 23:59 23:59 23:59 Intake Total 1000 1920 Output Total 800 Balance 1000 1120 Meds/Results Medications: Active Medications Generic Name Dose Route Start Last Admin Trade Name Freq PRN Reason Stop Dose Admin Diphenhydramine HCl 50 mg 10/04/20 22:50 Diphenhydramine Hcl Cap 25 Mg Capsule PO Q6H PRN Itching Enoxaparin Sodium 105 mg 10/04/20 23:00 10/05/20 00:12 Enoxaparin 120 Mg/0.8 Ml Syringe SUB-Q 105 mg Q12H CHRISTOPHER Administration Folic Acid 1 mg 10/05/20 09:00 10/05/20 09:16 Folic Acid 1 Mg Tablet PO 1 mg DAILY CHRISTOPHER Administration Hydromorphone HCl 3 mg 10/04/20 22:51 10/05/20 10:03 Hydromorphone Hcl Inj (*Crx) 1 Mg/Ml Syr IV PUSH 3 mg Q3H PRN Administration Pain Rated 7-10 Hydroxyurea 500 mg 10/05/20 09:00 10/05/20 09:16 Hydroxyurea (*Chemo) 500 Mg Capsule PO 500 mg DAILY CHRISTOPHER Administration Lactated Ringer's 1,000 mls @ 100 mls/hr 10/04/20 18:30 10/05/20 09:18 Lr - Lactated Ringers Iv IV CONT 100 mls/hr .Q10H CHRISTOPHER Administration Methadone HCl 10 mg 10/05/20 09:00 10/05/20 09:16 Methadone Hcl (*Crx) 10 Mg Tablet PO 10 mg TID [facility] Administration Oxycodone HCl 5 mg 10/04/20 23:05 Oxycodone Hcl (*Crx) 5 Mg Tab Ir PO BID PRN Pain Rated 4-6 Oxycodone/Acetaminophen 1 tablet 10/04/20 22:52 Oxycodone/Acetaminophen (*Crx) 5-325 Mg Tablet PO BID PRN Pain Rated 4-6 Warfarin Sodium 2 mg 10/05/20 17:00 Warfarin (*Pbkc) 2 Mg Tablet PO DAILY@1700 [facility] Warfarin Sodium 10 mg 10/05/20 17:00 Warfarin (*Pbkc) 10 Mg Tablet PO DAILY@1700 [facility] Labs Labs: Laboratory Results - last 24 hr 10/04/20 10/04/20 10/04/20 15:04 15:04 15:04 WBC 11.2 H RBC 3.11 L Hgb 9.7 L Hct 27.6 L MCV 88.7 MCH 31.2 MCHC 35.1 RDW 14.4 Plt Count 286 MPV 10.5 H Immature Gran % (Auto) 0.9 H Neut % (Auto) 61.7 Lymph % (Auto) 29.4 [place] % (Auto) 6.8 Eos % (Auto) 0.7 Baso % (Auto) 0.5 Lymph # (Auto) 3.29 H [place] # (Auto) 0.8 H Eos # (Auto) 0.1 Baso # (Auto) 0.1 Abs Immat
[2020-10-05] MEDS: AMOXICILLIN/CLAVULANATE K 875-125 MG TAB 1 TABLET PO ×2 (10:46→20:18)
[2020-10-05 14:00] VITALS: BP 114/74; PULSE 84; RESP 20; TEMP 36.9; O2SAT 99
[2020-10-05] MEDS: ONDANSETRON INJ 4 MG/2 ML VIAL IV PUSH (14:46)
[2020-10-05] MEDS: WARFARIN (*PBKC) 2 MG TABLET PO (17:16)
[2020-10-05] MEDS: WARFARIN (*PBKC) 10 MG TABLET PO (17:16)
--- NOTE | 2020-10-05 18:00 | PDONCCN ---
HPI - Date of Consult Date/Time: 10/05/20 18:00 Requesting Physician: Moi Martinez MD Primary Care Provider: Jone Marks MD - Consult Narrative Reason for consult: Sickle cell crisis Narrative: Quan Downing is a 35 year old male with history of hemoglobin SC disease and recurrent sickle cell crisis. Patient also has history of pulmonary embolism and currently on warfarin. He came into the hospital with generalized musculoskeletal pain mainly in the back and the ribcage area. He was seen in the office recently. He has been taking hydroxyurea 500 mg twice a day along with folic acid and warfarin 12.5 mg daily. He denies any fevers and chills. He was complaining of some right sided gum pain. Denies any sore throat. Currently is getting IV Dilaudid 3 mg every 3 hours and still complaining of significant pain. Denies any other complaints. Review of Systems - Review of Systems All systems reviewed & are unremarkable except as noted in HPI and bel - Neurologic Reports system reviewed and no additional complaints, except as documented, Reports hearing normal [facility] Medical History: Medical History (Last Reviewed 10/04/20 @ 23:01 by Alis Rodriguez NP) Acute chest syndrome Chronic anticoagulation Due to history of DVT and pulmonary embolism. Chronic narcotic use On methadone with oxycodone for chronic pain related to his sickle cell disease. Deep venous thrombosis Noncompliance History of noncompliance with anticoagulation and hydroxyurea. Pulmonary embolism Sickle cell disease, type SC Surgical History: Surgical History (Last Reviewed 10/04/20 @ 23:01 by Alis Rodriguez NP) History of hand surgery Tendon surgery on right 5th finger. Family History: Family History (Last Reviewed 10/04/20 @ 23:01 by Alis Rodriguez NP) Grandparent Diabetes mellitus Acute myocardial infarction Sibling Asthma Sibling Asthma Mother Hypertension Sickle cell trait Son Sickle cell trait Daughter Sickle cell trait Grandparent No problems noted. Other Diabetes mellitus Father Sickle cell trait - Social History Social History: Social History (Last Reviewed 10/04/20 @ 23:01 by Alis Rodriguez NP) Gender Identity: Gender identity (if verbalized by the patient): Male Alcohol Use: Alcohol intake: never Substance Use: Substance use: never Others: Spiritual care concerns: No Agree to blood products: Yes Smoking Status: Smoking status: Never smoker Meds Home Medications Medication Instructions Recorded Confirmed Type folic acid 1 mg PO DAILY 02/16/19 10/04/20 History hydroxyurea 500 mg PO DAILY 08/22/20 10/04/20 History methadone 10 mg PO TID 08/22/20 10/04/20 History oxycodone-acetaminophen 1 tablet PO BID PRN 08/22/20 10/04/20 History warfarin 2 mg PO DAILY 08/22/20 10/04/20 History warfarin 10 mg PO DAILY 08/22/20 10/04/20 History Allergies Allergy/AdvReac Type Severity Reaction Status Date / Time Fish Containing Products Allergy Intermediate Itching Verified 10/04/20 14:48 Results - Labs CBC & Chem 7: 10/05/20 06:06 10/05/20 06:06 Labs: Short CBC 10/05/20 Range/Units 06:06 WBC 14.3 H (4.5-10.0) K/mm3 Hgb 10.0 L (14.0-18.0) g/dL Hct 29.4 L (42.0-52.0) % Plt Count 268 (150-375) k/mm3 [facility] 10/05/20 06:06 Sodium 141 Potassium 4.2 Chloride 107 Carbon Dioxide 25 BUN 6 L Creatinine 0.80 Glucose 101 Calcium 9.2 Liver Function 10/05/20 Range/Units 06:06 Total Bilirubin 0.8 (0.2-1.3) mg/dL AST 35 (17-59) U/L ALT 26 (4-50) U/L Alkaline Phosphatase 85 (38-126) U/L Albumin 4.0 (3.5-5.1) g/dL Assessment and Plan - Additional Plan 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 Patient was admitted with sickle cell crisis episode. Labs reviewed that showed hemoglobin of 9.7 with slightly elevated LDH. % reticulocyte count was also elevat
[2020-10-05 20:00] VITALS: PULSE 84; RESP 20; O2SAT 99
[2020-10-05 22:00] VITALS: BP 116/70; PULSE 102; RESP 18; TEMP 37.2; O2SAT 97
[2020-10-06] MEDS: HYDROmorphone HCL INJ (*CRX) 1 MG/ML SYR 3 MG IV PUSH ×7 (00:18→20:26)
[2020-10-06] MEDS: ENOXAPARIN 120 MG/0.8 ML SYRINGE 105 MG SUB-Q ×2 (00:18→10:37)
[2020-10-06 06:00] VITALS: BP 141/84; PULSE 91; RESP 16; TEMP 37.2; O2SAT 95
[2020-10-06 06:41] LABS: INR 2.2; Prothrombin Time 25.3 Seconds (11.1-14.7)
[2020-10-06 06:43] LABS: Basophils Percent Auto 0.2 % (0.2-1.2); Eosinophils Percent Auto 0.1 % (0-4.4); Hematocrit 30.9 % (42.0-52.0); Hemoglobin 10.1 g/dL (14.0-18.0); Immature Granulocyte Absolute 0.07 K/mm3 (0.00-0.031); Immature Granulocyte Percent A 0.5 % (0-0.5); Lymphocytes Absolute Auto 3.68 K/mm3 (0.9-3.2); Lymphocytes Percent Auto 24.1 % (18.3-44.2); Mean Corpuscular HGB Conc 32.7 g/dl (32-36); Mean Corpuscular Hemoglobin 32.4 pg (26-34); Mean Platelet Volume 11.2 fl (7.4-10.4); Monocytes Absolute Auto 1.4 K/mm3 (0.1-0.6); Neutrophils Absolute Auto 10.1 K/mm3 (1.3-6.7); Neutrophils Percent Auto 66.1 % (45.5-73.1); Nucleated Red Blood Cells Absolute Auto 0.1 K/mm3 (0.0-0.012); Nucleated Red Blood Cells Perc 0.5 % (0.0-0.2); Platelet Count Result 223 k/mm3 (150-375); Red Blood Count 3.12 M/mm3 (4.6-6.20); Red Cell Distribution Width 15.5 % (11.5-14.5); White Blood Count 15.3 K/mm3 (4.5-10.0)
[2020-10-06] MEDS: LACTATED RINGERS 1,000 ML 100 ML IV CONT ×2 (06:47→16:53)
[2020-10-06 06:49] LABS: Anion Gap 7 mmol/L (8-16); Blood Urea Nitrogen 7 mg/dL (9-20); Calcium 9.1 mg/dL (8.4-10.2); Carbon Dioxide 27 mmol/L (22-30); Chloride 105 mmol/L (98-107); Creatine Kinase 41 U/L (55-170); Estimated CRCL calculation 151 ml/min; Estimated Glomerular Filt Rate > 60; Glucose 116 mg/dL (75-110); Potassium 4.4 mmol/L (3.4-5.0); Sodium 139 mmol/L (137-145)
[2020-10-06] MEDS: FOLIC ACID 1 MG TABLET PO (08:35)
[2020-10-06] MEDS: AMOXICILLIN/CLAVULANATE K 875-125 MG TAB 1 TABLET PO (08:35)
[2020-10-06] MEDS: HYDROXYUREA (*CHEMO) 500 MG CAPSULE PO (08:35)
[2020-10-06] MEDS: methADONE HCL (*CRX) 10 MG TABLET PO ×3 (09:35→16:34)
--- NOTE | 2020-10-06 10:24 | PM.IMPN ---
Progress Note: A&P Assessment and Plan (1) Hx of pulmonary embolus: Code(s): Z86.711 - Personal history of pulmonary embolism Status: Acute Assessment and Plan: Anticoagulation with Coumadin, monitor respiratory status Obtain chest x-ray (2) Sickle cell pain crisis: Code(s): D57.00 - Hb-SS disease with crisis, unspecified Status: Acute Assessment and Plan: Hydration, pain control, consult hematology Obtain chest x-ray Monitor hemoglobin (3) Tooth pain: Code(s): K08.89 - Other specified disorders of teeth and supporting structures Status: Acute Assessment and Plan: Starting Augmentin, no significant swelling of excoriation on exam, follow up with dentist as an outpatient. Subjective Date/time seen: 10/06/20 10:24 Interval history: Patient still complained of generalized body pain, he said that Dr. Marks gives him pain medication as an outpatient. No shortness of breath, patient is resting comfortably does not seem in acute distress. Exam Const: General: cooperative and no acute distress HENMT: Head: normal to inspection Eyes: General: appearance normal, both eyes and all related structures Neck: Neck: normal visual inspection Chest: Chest palpation & inspection: normal inspection of the chest Resp: Effort & Inspection: normal respiratory effort Cardio: Jugular venous distension: no JVD Rate: regular rate GI: Inspection: normal to inspection and non-distended Objective Data Vital Signs Vital Signs: Vital Signs - 24 hr 10/05/20 14:00 10/05/20 20:00 10/05/20 22:00 Temperature 98.5 F 99.0 F Pulse Rate 84 84 102 H Respiratory Rate 20 20 18 Blood Pressure 114/74 116/70 Pulse Oximetry 99 99 97 10/06/20 06:00 Temperature 98.9 F Pulse Rate 91 Respiratory Rate 16 Blood Pressure 141/84 H Pulse Oximetry 95 Intake/Output Intake/Output: Intake & Output 10/03/20 10/04/20 10/05/20 10/06/20 23:59 23:59 23:59 23:59 Intake Total 1000 4360 1390 Output Total 4400 400 Balance 1000 -40 990 Meds/Results Medications: Active Medications Generic Name Dose Route Start Last Admin Trade Name Freq PRN Reason Stop Dose Admin Amoxicillin/Clavulanate Potassium 1 tablet 10/05/20 10:10 10/06/20 08:35 Amoxicillin/Clavulanate K 875-125 Mg Tab PO 1 tablet Q12HR CHRISTOPHER Administration Diphenhydramine HCl 50 mg 10/04/20 22:50 Diphenhydramine Hcl Cap 25 Mg Capsule PO Q6H PRN Itching Enoxaparin Sodium 105 mg 10/04/20 23:00 10/06/20 00:18 Enoxaparin 120 Mg/0.8 Ml Syringe SUB-Q 105 mg Q12H CHRISTOPHER Administration Folic Acid 1 mg 10/05/20 09:00 10/06/20 08:35 Folic Acid 1 Mg Tablet PO 1 mg DAILY CHRISTOPHER Administration Hydromorphone HCl 3 mg 10/04/20 22:51 10/06/20 06:47 Hydromorphone Hcl Inj (*Crx) 1 Mg/Ml Syr IV PUSH 3 mg Q3H PRN Administration Pain Rated 7-10 Hydroxyurea 500 mg 10/05/20 09:00 10/06/20 08:35 Hydroxyurea (*Chemo) 500 Mg Capsule PO 500 mg DAILY CHRISTOPHER Administration Lactated Ringer's 1,000 mls @ 100 mls/hr 10/04/20 18:30 10/06/20 06:47 Lr - Lactated Ringers Iv IV CONT 100 mls/hr .Q10H CHRISTOPHER Administration Methadone HCl 10 mg 10/05/20 09:00 10/06/20 09:35 Methadone Hcl (*Crx) 10 Mg Tablet PO 10 mg TID CHRISTOPHER Administration Ondansetron HCl 4 mg 10/05/20 14:20 10/05/20 14:46 Ondansetron Inj 4 Mg/2 Ml Vial IV PUSH 4 mg Q4H PRN Administration Nausea And Vomiting Oxycodone HCl 5 mg 10/04/20 23:05 Oxycodone Hcl (*Crx) 5 Mg Tab Ir PO BID PRN Pain Rated 4-6 Oxycodone/Acetaminophen 1 tablet 10/04/20 22:52 Oxycodone/Acetaminophen (*Crx) 5-325 Mg Tablet PO BID PRN Pain Rated 4-6 Warfarin Sodium 2 mg 10/05/20 17:00 10/05/20 17:16 Warfarin (*Pbkc) 2 Mg Tablet PO 2 mg DAILY@1700 CHRISTOPHER Administration Warfarin Sodium 10 mg 10/05/20 17:00 10/05/20 17:16 Warfarin (*Pbkc) 10 Mg Tablet PO 10 mg DAILY@1700
[2020-10-06 11:55] VITALS: O2SAT 91
[2020-10-06 14:00] VITALS: BP 150/88; PULSE 86; RESP 20; TEMP 36.4; O2SAT 95
[2020-10-06] MEDS: oxyCODONE HCL (*CRX) 5 MG TAB IR PO (15:19)
[2020-10-06] MEDS: oxyCODONE/ACETAMINOPHEN (*CRX) 5-325 MG TABLET 1 TABLET PO (15:19)
[2020-10-06] MEDS: WARFARIN (*PBKC) 2 MG TABLET PO (16:34)
[2020-10-06] MEDS: WARFARIN (*PBKC) 10 MG TABLET PO (16:34)
[2020-10-06 22:00] VITALS: BP 141/80; PULSE 80; RESP 14; TEMP 36.7; O2SAT 95
[2020-10-07] MEDS: HYDROmorphone HCL INJ (*CRX) 1 MG/ML SYR 3 MG IV PUSH ×8 (00:05→21:30)
[2020-10-07 06:00] VITALS: BP 133/79; PULSE 85; RESP 16; TEMP 36.5; O2SAT 96
[2020-10-07] MEDS: LACTATED RINGERS 1,000 ML 100 ML IV CONT ×2 (06:14→15:27)
[2020-10-07 06:47] LABS: Basophils Absolute Auto 0.1 K/mm3 (0.0-0.1); Basophils Percent Auto 0.4 % (0.2-1.2); Eosinophils Absolute Auto 0.2 K/mm3 (0-0.3); Eosinophils Percent Auto 1.2 % (0-4.4); Hematocrit 29.7 % (42.0-52.0); Hemoglobin 10.2 g/dL (14.0-18.0); Immature Granulocyte Absolute 0.05 K/mm3 (0.00-0.031); Immature Granulocyte Percent A 0.4 % (0-0.5); Lymphocytes Absolute Auto 4.39 K/mm3 (0.9-3.2); Lymphocytes Percent Auto 31.8 % (18.3-44.2); Mean Corpuscular HGB Conc 34.3 g/dl (32-36); Mean Corpuscular Hemoglobin 30.4 pg (26-34); Mean Corpuscular Volume 88.4 fl (80-100); Mean Platelet Volume 10.8 fl (7.4-10.4); Monocytes Absolute Auto 1.2 K/mm3 (0.1-0.6); Neutrophils Absolute Auto 7.9 K/mm3 (1.3-6.7); Neutrophils Percent Auto 57.2 % (45.5-73.1); Nucleated Red Blood Cells Absolute Auto 0.1 K/mm3 (0.0-0.012); Nucleated Red Blood Cells Perc 0.4 % (0.0-0.2); Platelet Count Result 319 k/mm3 (150-375); Red Blood Count 3.36 M/mm3 (4.6-6.20); Red Cell Distribution Width 14.3 % (11.5-14.5); White Blood Count 13.8 K/mm3 (4.5-10.0)
[2020-10-07 06:58] LABS: INR 2.6; Prothrombin Time 28.7 Seconds (11.1-14.7)
[2020-10-07 07:37] LABS: Anion Gap 6 mmol/L (8-16); Blood Urea Nitrogen 8 mg/dL (9-20); Calcium 9.2 mg/dL (8.4-10.2); Carbon Dioxide 27 mmol/L (22-30); Chloride 105 mmol/L (98-107); Estimated CRCL calculation 151 ml/min; Estimated Glomerular Filt Rate > 60; Glucose 99 mg/dL (75-110); Phosphorus 3.1 mg/dL (2.5-4.5); Potassium 3.9 mmol/L (3.4-5.0); Sodium 138 mmol/L (137-145)
[2020-10-07 08:07] LABS: Platelet Estimate Adequate (Adequate); Target Cells 2+ (NORMAL)
[2020-10-07 08:09] LABS: Sickle Cells 1+ (NORMAL)
[2020-10-07] MEDS: FOLIC ACID 1 MG TABLET PO (08:55)
[2020-10-07] MEDS: HYDROXYUREA (*CHEMO) 500 MG CAPSULE PO (08:55)
[2020-10-07] MEDS: AMOXICILLIN/CLAVULANATE K 875-125 MG TAB 1 TABLET PO ×2 (08:55→20:54)
[2020-10-07] MEDS: methADONE HCL (*CRX) 10 MG TABLET PO ×3 (08:55→17:32)
[2020-10-07 14:00] VITALS: BP 121/70; PULSE 94; RESP 12; TEMP 36.8; O2SAT 98
--- NOTE | 2020-10-07 14:18 | PM.IMPN ---
Progress Note: A&P Assessment and Plan (1) Hx of pulmonary embolus: Code(s): Z86.711 - Personal history of pulmonary embolism Status: Acute Assessment and Plan: Anticoagulation with Coumadin, monitor respiratory status Obtain chest x-ray (2) Sickle cell pain crisis: Code(s): D57.00 - Hb-SS disease with crisis, unspecified Status: Acute Assessment and Plan: Hydration, pain control, consult hematology chest x-ray no acute process hemoglobin stable Patient exhibits drug-seeking behavior. 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 Marks (3) Tooth pain: Code(s): K08.89 - Other specified disorders of teeth and supporting structures Status: Acute Assessment and Plan: Starting Augmentin, no significant swelling of excoriation on exam, follow up with dentist as an outpatient. Subjective Date/time seen: 10/07/20 14:18 Interval history: Patient still complained of generalized body pain, he said that Dr. Marks gives him pain medication as an outpatient. No shortness of breath, patient is resting comfortably does not seem in acute distress. Patient exhibits drug-seeking behavior. 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 Marks Exam Const: General: cooperative and no acute distress HENMT: Head: normal to inspection Eyes: General: appearance normal, both eyes and all related structures Neck: Neck: normal visual inspection Chest: Chest palpation & inspection: normal inspection of the chest Resp: Effort & Inspection: normal respiratory effort Cardio: Jugular venous distension: no JVD Rate: regular rate GI: Inspection: normal to inspection and non-distended Objective Data Vital Signs Vital Signs: Vital Signs - 24 hr 10/06/20 22:00 10/07/20 06:00 Temperature 98.0 F 97.7 F Pulse Rate 80 85 Respiratory Rate 14 16 Blood Pressure 141/80 H 133/79 Pulse Oximetry 95 96 Intake/Output Intake/Output: Intake & Output 10/04/20 10/05/20 10/06/20 10/07/20 23:59 23:59 23:59 23:59 Intake Total 1000 4360 4210 1760 Output Total 4400 1800 320 Balance 1000 -40 2410 1440 Meds/Results Medications: Active Medications Generic Name Dose Route Start Last Admin Trade Name Freq PRN Reason Stop Dose Admin Amoxicillin/Clavulanate Potassium 1 tablet 10/05/20 10:10 10/07/20 08:55 Amoxicillin/Clavulanate K 875-125 Mg Tab PO 1 tablet Q12HR CHRISTOPHER Administration Diphenhydramine HCl 50 mg 10/04/20 22:50 Diphenhydramine Hcl Cap 25 Mg Capsule PO Q6H PRN Itching Folic Acid 1 mg 10/05/20 09:00 10/07/20 08:55 Folic Acid 1 Mg Tablet PO 1 mg DAILY CHRISTOPHER Administration Hydromorphone HCl 3 mg 10/04/20 22:51 10/07/20 12:11 Hydromorphone Hcl Inj (*Crx) 1 Mg/Ml Syr IV PUSH 3 mg Q3H PRN Administration Pain Rated 7-10 Hydroxyurea 500 mg 10/05/20 09:00 10/07/20 08:55 Hydroxyurea (*Chemo) 500 Mg Capsule PO 500 mg DAILY CHRISTOPHER Administration Lactated Ringer's 1,000 mls @ 100 mls/hr 10/04/20 18:30 10/07/20 06:14 Lr - Lactated Ringers Iv IV CONT 100 mls/hr .Q10H CHRISTOPHER Administration Methadone HCl 10 mg 10/05/20 09:00 10/07/20 12:10 Methadone Hcl (*Crx) 10 Mg Tablet PO 10 mg TID CHRISTOPHER Administration Ondansetron HCl 4 mg 10/05/20 14:20 10/05/20 14:46 Ondansetron Inj 4 Mg/2 Ml Vial IV PUSH 4 mg Q4H PRN Administration Nausea And Vomiting Oxycodone HCl 5 mg 10/04/20 23:05 10/06/20 15:19 Oxycodone Hcl (*Crx) 5 Mg Tab Ir PO 5 mg BID PRN Administration Pain Rated 4-6 Oxycodone/Acetaminophen 1 tablet 10/04/20 22:52 10/06/20 15:19 Oxycodone/Acetaminophen (*Crx) 5-325 Mg Tablet PO 1 tablet BID PRN Administration Pain Rated 4-6 Warfarin Sodium 2 mg 10/05/20 17:00 10/06/20 16:34 Warfarin (*Pbkc) 2 Mg Tablet PO 2 mg DAILY@1700 CHRISTOPHER Administration Warfarin Sodium 10 mg 10/05/20 17:00 10/06/20 16:34 Warfarin (*Pbkc) 10 M
--- NOTE | 2020-10-07 16:19 | WPDONCPN ---
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 Recommend continuing IV hydration and optimizing pain control. Currently on Dilaudid 3 mg IV every 3 hours and oxycodone +/- tylenol for breakthrough pain. Have asked floor nurse to offer PO PRN meds more liberally as pt is still in considerable pain. Patient will also continue folic acid 1 mg daily and hydroxyurea 500 mg twice a day. No need for transfusion at this time. (2) Tooth pain Code(s): K08.89 - Other specified disorders of teeth and supporting structures Status: Acute Assessment and plan: On Augmentin. Pt likely needs R lower wisdom tooth removed. Says he will need to look into current dental insurance coverage in order to get this scheduled. (3) Hx of pulmonary embolus Code(s): Z86.711 - Personal history of pulmonary embolism Status: Acute Assessment and plan: On warfarin, INR therapeutic. 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 Patient also has history of pulmonary embolism and currently on warfarin. He came into the hospital with generalized musculoskeletal pain mainly in the back and the ribcage area. He was seen in the office recently. He has been taking hydroxyurea 500 mg twice a day along with folic acid and warfarin 12.5 mg daily. He denies any fevers and chills. He was complaining of some right sided gum pain. Denies any sore throat. Currently is getting IV Dilaudid 3 mg every 3 hours and still complaining of significant pain. Denies any other complaints. Review of Systems - Neurologic Reports system reviewed and no additional complaints, except as documented, Reports hearing normal Exam Vital signs: Temp Pulse Resp BP Pulse Ox 36.5 C 85 16 133/79 96 10/07/20 06:00 10/07/20 06:00 10/07/20 06:00 10/07/20 06:00 10/07/20 06:00 - Constitutional moderate distress - Routine HEENT Exam Head: Present: atraumatic, normal inspection, normocephalic PN: Objective Data - Labs CBC & Chem 7: 10/07/20 06:27 10/07/20 06:27 Labs: Laboratory Results - last 24 hr 10/07/20 10/07/20 10/07/20 06:27 06:27 06:27 WBC 13.8 H RBC 3.36 L Hgb 10.2 L Hct 29.7 L MCV 88.4 D MCH 30.4 D MCHC 34.3 RDW 14.3 Plt Count 319 MPV 10.8 H Immature Gran % (Auto) 0.4 Neut % (Auto) 57.2 Lymph % (Auto) 31.8 Holt % (Auto) 9.0 H Eos % (Auto) 1.2 Baso % (Auto) 0.4 Lymph # (Auto) 4.39 H Holt # (Auto) 1.2 H Eos # (Auto) 0.2 Baso # (Auto) 0.1 Abs Immat Gran (auto) 0.05 H Absolute Neuts (auto) 7.9 H Absolute Nucleated RBC 0.1 H Nucleated RBC % 0.4 H Platelet Estimate Adequate Sickle Cells 1+ Target Cells 2+ PT 28.7 H INR 2.6 Sodium 138 Potassium 3.9 Chloride 105 Carbon Dioxide 27 Anion Gap 6 L BUN 8 L Creatinine 0.70 Estim Creat Clear Calc 151 Estimated GFR > 60 Glucose 99 Calcium 9.2 Phosphorus 3.1 Magnesium 2.0
[2020-10-07] MEDS: WARFARIN (*PBKC) 2 MG TABLET PO (17:32)
[2020-10-07] MEDS: oxyCODONE HCL (*CRX) 5 MG TAB IR PO (17:32)
[2020-10-07] MEDS: oxyCODONE/ACETAMINOPHEN (*CRX) 5-325 MG TABLET 1 TABLET PO (17:33)
[2020-10-07] MEDS: WARFARIN (*PBKC) 10 MG TABLET PO (18:34)
[2020-10-07 21:46] VITALS: BP 109/73; PULSE 89; RESP 18; TEMP 36.8; O2SAT 93
[2020-10-08] MEDS: HYDROmorphone HCL INJ (*CRX) 1 MG/ML SYR 3 MG IV PUSH ×3 (00:32→06:27)
[2020-10-08] MEDS: LACTATED RINGERS 1,000 ML 100 ML IV CONT (03:34)
[2020-10-08 06:00] VITALS: BP 117/70; PULSE 80; RESP 18; TEMP 36.6; O2SAT 97
[2020-10-08 06:48] LABS: Prothrombin Time 31.8 Seconds (11.1-14.7)
[2020-10-08] MEDS: AMOXICILLIN/CLAVULANATE K 875-125 MG TAB 1 TABLET PO (08:29)
[2020-10-08] MEDS: HYDROXYUREA (*CHEMO) 500 MG CAPSULE PO (08:29)
[2020-10-08] MEDS: methADONE HCL (*CRX) 10 MG TABLET PO ×2 (08:29→12:02)
[2020-10-08] MEDS: FOLIC ACID 1 MG TABLET PO (08:29)
[2020-10-08] MEDS: oxyCODONE HCL (*CRX) 5 MG TAB IR PO (10:14)
[2020-10-08] MEDS: oxyCODONE/ACETAMINOPHEN (*CRX) 5-325 MG TABLET 1 TABLET PO (10:14)
--- NOTE | 2020-10-08 11:12 | PM.IMPN ---
Progress Note: A&P Assessment and Plan (1) Hx of pulmonary embolus: Code(s): Z86.711 - Personal history of pulmonary embolism Status: Acute Assessment and Plan: Anticoagulation with Coumadin, monitor respiratory status chest x-ray no acute process (2) Sickle cell pain crisis: Code(s): D57.00 - Hb-SS disease with crisis, unspecified Status: Acute Assessment and Plan: Hydration, pain control, consult hematology When patient of narcotics as tolerated chest x-ray no acute process hemoglobin stable Patient exhibits drug-seeking behavior. 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 Marks (3) Tooth pain: Code(s): K08.89 - Other specified disorders of teeth and supporting structures Status: Acute Assessment and Plan: Starting Augmentin, no significant swelling of excoriation on exam, follow up with dentist as an outpatient. Subjective Date/time seen: 10/08/20 11:12 Interval history: Patient does not seem in any acute distress, he was working on his laptop, and seems very comfortable, although we keep complaining of severe generalized body aches. Exam Const: General: cooperative and no acute distress HENMT: Head: normal to inspection Eyes: General: appearance normal, both eyes and all related structures Neck: Neck: normal visual inspection Chest: Chest palpation & inspection: normal inspection of the chest Resp: Effort & Inspection: normal respiratory effort Cardio: Jugular venous distension: no JVD Rate: regular rate GI: Inspection: normal to inspection and non-distended Objective Data Vital Signs Vital Signs: Vital Signs - 24 hr 10/07/20 14:00 10/07/20 21:46 10/08/20 06:00 Temperature 98.2 F 98.2 F 97.9 F Pulse Rate 94 89 80 Respiratory Rate 12 18 18 Blood Pressure 121/70 109/73 117/70 Pulse Oximetry 98 93 97 Intake/Output Intake/Output: Intake & Output 10/05/20 10/06/20 10/07/20 10/08/20 23:59 23:59 23:59 23:59 Intake Total 4360 4210 4580 1750 Output Total 4400 1800 1920 1100 Balance -40 2410 2660 650 Meds/Results Medications: Active Medications Generic Name Dose Route Start Last Admin Trade Name Freq PRN Reason Stop Dose Admin Amoxicillin/Clavulanate Potassium 1 tablet 10/05/20 10:10 10/08/20 08:29 Amoxicillin/Clavulanate K 875-125 Mg Tab PO 1 tablet Q12HR CHRISTOPHER Administration Diphenhydramine HCl 50 mg 10/04/20 22:50 Diphenhydramine Hcl Cap 25 Mg Capsule PO Q6H PRN Itching Folic Acid 1 mg 10/05/20 09:00 10/08/20 08:29 Folic Acid 1 Mg Tablet PO 1 mg DAILY CHRISTOPHER Administration Hydroxyurea 500 mg 10/05/20 09:00 10/08/20 08:29 Hydroxyurea (*Chemo) 500 Mg Capsule PO 500 mg DAILY CHRISTOPHER Administration Lactated Ringer's 1,000 mls @ 100 mls/hr 10/04/20 18:30 10/08/20 03:34 Lr - Lactated Ringers Iv IV CONT 100 mls/hr .Q10H CHRISTOPHER Administration Methadone HCl 10 mg 10/05/20 09:00 10/08/20 08:29 Methadone Hcl (*Crx) 10 Mg Tablet PO 10 mg TID CHRISTOPHER Administration Ondansetron HCl 4 mg 10/05/20 14:20 10/05/20 14:46 Ondansetron Inj 4 Mg/2 Ml Vial IV PUSH 4 mg Q4H PRN Administration Nausea And Vomiting Oxycodone HCl 5 mg 10/04/20 23:05 10/08/20 10:14 Oxycodone Hcl (*Crx) 5 Mg Tab Ir PO 5 mg BID PRN Administration Pain Rated 4-6 Oxycodone/Acetaminophen 1 tablet 10/04/20 22:52 10/08/20 10:14 Oxycodone/Acetaminophen (*Crx) 5-325 Mg Tablet PO 1 tablet BID PRN Administration Pain Rated 4-6 Warfarin Sodium 2 mg 10/05/20 17:00 10/07/20 17:32 Warfarin (*Pbkc) 2 Mg Tablet PO 2 mg DAILY@1700 CHRISTOPHER Administration Warfarin Sodium 10 mg 10/05/20 17:00 10/07/20 18:34 Warfarin (*Pbkc) 10 Mg Tablet PO 10 mg DAILY@1700 CHRISTOPHER Administration Radiology Results: ITS Impressions Chest X-Ray 10/06/20 11:47 Impression: 1: No acute cardiopulmonary disease. 2: Chronic bibasilar atelectasis/scarring. Labs
--- NOTE | 2020-10-08 12:45 | PM.DS ---
DS: Admitting Diagnosis Admitting Diagnosis Admitting Diagnosis: sickle cell pain crisis DS: Discharge Diagnosis Discharge Diagnosis (1) Sickle cell pain crisis: Code(s): D57.00 - Hb-SS disease with crisis, unspecified Status: Acute (2) Hx of pulmonary embolus: Code(s): Z86.711 - Personal history of pulmonary embolism Status: Acute DS: Summary Hospital Course Reason for hospitalization: sickle cell pain crisis Hospital Course: 35-year-old male patient who has a history sickle cell anemia and DVTs. presented with generalized body pain, similar to previous sickle cell pain crisis, hemoglobin was stable, chest x-ray unremarkable, hematology were consulted, patient was treated with IV fluids and pain control with IV and p.o. narcotics, IV narcotics were weaned off during this hospitalization, patient is stable for discharge, and he feels better at the time of discharge. continue anticoagulation for history of DVT and PE. Time Spent with Patient Time attestation: Total time spent providing and/or coordinating discharge services: Time spent: Greater than 30 minutes DS: Data Data Completed and Pending Labs on day of discharge: Labs from last 24 hours 10/08/20 06:06 PT 31.8 H INR 3.0 Discharge Plan Discharge Consulting providers: Jone Marks Discharging Clinician: Moi Martinez Patient Disposition: Home, Self-Care Activity: as tolerated Diet: regular Patient Instructions: Antibiotic Form Stand Alone Forms: General Discharge Information Follow-up/Referrals: Jone Marks MD [Primary Care Provider] - 1 Week Discharge Medications: Continued folic acid 1 mg Tablet 1 mg PO DAILY RF: 0 hydroxyurea 500 mg capsule 500 mg PO DAILY RF: 0 warfarin 10 mg tablet 10 mg PO DAILY RF: 0 methadone 10 mg tablet 10 mg PO TID RF: 0 oxycodone-acetaminophen 10-325 mg tablet 1 tablet PO BID PRN (Reason: Pain, Moderate) RF: 0 warfarin 2 mg tablet 2 mg PO DAILY RF: 0 Date of admission: 10/06/20 11:10 Primary Care Provider: Jone Marks Admitting Provider: Moi Martinez Attending physician on admission: Moi Martinez Condition: Stable Quality VTE Prophylaxis VTE prophylaxis: pharmacologic ordered
--- NOTE | 2020-10-08 13:10 | PC.NURSE ---
patient in [place] states ready to leave. I ask if he wanted a w/c for discharge and he refused states he can walk. Left hospital walking, steady gait.
== END 2020-10-08 13:10 | disposition home or self-care (01) | DRG 662 ==
LOC: ANHED 18:37 → ANH3MEDSUR 18:49
PROVIDERS: Emergency Medicine; Nurse Practitioner; Admitting Provider Emergency Medicine; Emergency Provider Emergency Medicine; PCP Internal Medicine Hematology & Oncology; Visit Provider Emergency Medicine
DX: D57.00 Hb-SS disease with crisis, unspecified (principal); R79.1 Abnormal coagulation profile; K08.89 Other specified disorders of teeth and supporting structures; Z86.711 Personal history of pulmonary embolism; Z86.718 Personal history of other venous thrombosis and embolism; Z79.01 Long term (current) use of anticoagulants
CPT/HCPCS: 36415; 71046; 80048; 80053; 82550; 83615; 83735; 84100; 84443; 85025; 85046; 85055; 85610; 85730; 96361; 96372; 96374; 96375; 96376; 99285; A9270; G0378; G0379; J1170; J1650; J2405; J7030; J7120

== ENCOUNTER 2020-10-16 06:41 | Emergency (ER) | payer OTHER, SELFPAY ==
[2020-10-16] VITALS (8 sets, daily range): BP systolic 108–133; BP diastolic 72–80; PULSE 80–99; RESP 16–20; TEMP 36.9; O2SAT 98–100
--- NOTE | ~2020-10-16 | XR_ITS ---
EXAMINATION: XR chest 2V DATE: 10/16/2020 07:19 INDICATION: Cough, sickle cell disease TECHNIQUE: PA and lateral views of the chest are obtained. COMPARISON: 10/06/2020 FINDINGS: There is chronic scarring of the lung bases. The lungs are free of acute opacities. There i s no pleural effusion or pneumothorax. The cardiomediastinal silhouette is normal. IMPRESSION: 1. Stable areas of chronic scarring related sickle cell disease without acute cardiopulmonary abnorma lity. Reviewed, dictated and finalized at location A. IMPRESSION: 1. Stable areas of chronic scarring related sickle cell disease without acute c ardiopulmonary abnormality.
--- NOTE | 2020-10-16 07:13 | ED.GENADULT ---
HPI - General Adult General Chief complaint: Unspecified Stated complaint: sickle cell Time Seen by Provider: 10/16/20 07:12 Source: patient Mode of arrival: ambulatory Limitations: no limitations History of Present Illness HPI narrative: Patient is a 35-year-old male complaining of sickle cell pain described as pain in his back and his ribs that started today. Patient states that this is his typical sickle cell pain. Patient has a history of sickle cell disease. Patient was recently discharged last week after being admitted due to sickle cell crisis. Patient on warfarin for his chronic PE and methadone and oxycodone for his pain. Patient denies any chest pain, abdominal pain, nausea, vomiting, diarrhea, fever or chills. Patient denies any urinary symptoms. Related Data Home Medications Medication Instructions Recorded Confirmed folic acid 1 mg PO DAILY 02/16/19 10/04/20 hydroxyurea 500 mg PO DAILY 08/22/20 10/04/20 methadone 10 mg PO TID 08/22/20 10/04/20 oxycodone-acetaminophen 1 tablet PO BID PRN 08/22/20 10/04/20 warfarin 2 mg PO DAILY 08/22/20 10/04/20 warfarin 10 mg PO DAILY 08/22/20 10/04/20 Allergies Allergy/AdvReac Type Severity Reaction Status Date / Time Fish Containing Products Allergy Intermediate Itching Verified 10/16/20 06:48 Review of Systems Review of Systems: All systems reviewed & are unremarkable except as noted in HPI and below Constitutional: Constitutional: Denies body ache(s), Denies chills, Denies excessive sweating, Denies fatigue, Denies fever(s), Denies headache(s), Denies lethargy, Denies malaise, Denies weakness and Denies weight loss Eyes: Eyes: Denies blurry vision, Denies change in vision and Denies loss of vision ENT: Denies dizziness, Denies ear discharge, Denies headache(s), Denies lip swelling, Denies epistaxis, Denies nasal congestion, Denies neck pain, Denies throat swelling and Denies tongue swelling Cardiovascular: Cardiovascular: Denies chest pain, Denies chest pain at rest, Denies chest pain with activity, Denies diaphoresis, Denies rapid heart rate, Denies edema, Denies irregular heart rhythm, Denies lightheadedness, Denies palpitations, Denies dyspnea and Denies dyspnea on exertion Respiratory: Respiratory: Denies chest congestion, Denies cough, Denies hemoptysis, Denies dyspnea and Denies dyspnea on exertion Gastrointestinal: Gastrointestinal: Denies abdominal pain, Denies melena, Denies hematochezia, Denies diarrhea, Denies nausea, Denies vomiting and Denies hematemesis Musculoskeletal: Musculoskeletal: Denies abnormal gait, Denies deformity, Denies joint swelling, Denies limited range of motion, Denies neck pain and Denies numbness Neurologic: Denies Abnormal speech present, Denies abnormal gait, Denies confusion, Denies dizziness, Denies headache(s), Denies focal weakness, Denies loss of vision, Denies numbness, Denies Other visual disturbances, Denies Sensory deficit (Neuro) and Denies weakness Psychiatric: Psychiatric: Denies confusion, Denies depression, Denies auditory hallucinations, Denies homicidal ideation and Denies suicidal ideation Endocrine: Endocrine: Denies cold intolerance, Denies excessive sweating, Denies fatigue, Denies heat intolerance and Denies palpitations Hematologic/Lymphatic: Hematologic/Lymphatic: Denies easy bleeding and Denies easy bruising Allergic/Immunologic: Allergic/Immunologic: Denies lip swelling, Denies throat swelling and Denies tongue swelling PMFSH Past Medical History Medical History Acute chest syndrome Chronic anticoagulation Due to history of DVT and pulmonary embolism. Chronic narcotic use On methadone with oxycodone for chronic pain related to his sickle cell disease. Deep venous thrombosis Noncompliance History of noncompliance with anticoagulation and hydroxyurea. Pulmonary embolism Sickle cell disease, type SC Surgical History Surgical History (Reviewed 10/16
[2020-10-16 07:48] LABS: Basophils Absolute Auto 0.1 K/mm3 (0.0-0.1); Basophils Percent Auto 0.5 % (0.2-1.2); Eosinophils Absolute Auto 0.1 K/mm3 (0-0.3); Hematocrit 30.5 % (42.0-52.0); Hemoglobin 10.6 g/dL (14.0-18.0); Immature Granulocyte Absolute 0.04 K/mm3 (0.00-0.031); Immature Granulocyte Percent A 0.3 % (0-0.5); Lymphocytes Absolute Auto 3.07 K/mm3 (0.9-3.2); Lymphocytes Percent Auto 22.2 % (18.3-44.2); Mean Corpuscular HGB Conc 34.8 g/dl (32-36); Mean Corpuscular Hemoglobin 30.6 pg (26-34); Mean Corpuscular Volume 88.2 fl (80-100); Mean Platelet Volume 9.9 fl (7.4-10.4); Monocytes Absolute Auto 0.9 K/mm3 (0.1-0.6); Monocytes Percent Auto 6.4 % (2.6-8.5); Neutrophils Absolute Auto 9.7 K/mm3 (1.3-6.7); Neutrophils Percent Auto 69.6 % (45.5-73.1); Nucleated Red Blood Cells Perc 0.3 % (0.0-0.2); Platelet Count Result 494 k/mm3 (150-375); Red Blood Count 3.46 M/mm3 (4.6-6.20); Red Cell Distribution Width 14.7 % (11.5-14.5); White Blood Count 13.9 K/mm3 (4.5-10.0)
[2020-10-16] MEDS: SODIUM CHLORIDE 0.9% IV 1,000 ML 999 ML IV CONT (07:49)
--- NOTE | 2020-10-16 07:51 | PC.NURSE ---
pt does not wish to wear prescribed o2 nc at this time.
[2020-10-16 07:52] LABS: Immature Reticulocyte Fraction 36.8 % (3.0-15.9); Reticulocyte Hemoglobin Conten 35.9 pg (28.2-35.7); Reticulocyte Percent 4.81 % (0.7-4.3); Reticulocytes Absolute 0.17 B/L (32.2-175.7)
[2020-10-16 07:58] LABS: Alanine Aminotransferase 21 U/L (4-50); Albumin Level 4.4 g/dL (3.5-5.1); Alkaline Phosphatase 96 U/L (38-126); Anion Gap 9 mmol/L (8-16); Aspartate Amino Transferase 36 U/L (17-59); Bilirubin,Total 0.9 mg/dL (0.2-1.3); Blood Urea Nitrogen 5 mg/dL (9-20); Calcium 9.2 mg/dL (8.4-10.2); Carbon Dioxide 25 mmol/L (22-30); Chloride 109 mmol/L (98-107); Estimated Glomerular Filt Rate > 60; Glucose 116 mg/dL (75-110); Potassium 3.8 mmol/L (3.4-5.0); Sodium 143 mmol/L (137-145)
[2020-10-16 08:02] LABS: Prothrombin Time 13.2 Seconds (11.1-14.7)
[2020-10-16 08:03] LABS: Partial Thromboplastin Time 22.4 SECONDS (22.3-36.8)
[2020-10-16] MEDS: HYDROmorphone HCL INJ (*CRX) 1 MG/ML SYR IV PUSH ×2 (08:07→12:33)
[2020-10-16 08:11] LABS: Platelet Estimate Increased (Adequate); Polychromasia 1+ (NORMAL); Sickle Cells 1+ (NORMAL); Target Cells 2+ (NORMAL)
--- NOTE | 2020-10-16 09:22 | PC.NURSE ---
pt refuses stating med make him feel funny and doesn't help .
--- NOTE | 2020-10-16 10:05 | PC.NURSE ---
ed aware pt refused toradol iv
--- NOTE | 2020-10-16 11:12 | PC.NURSE ---
report to inocencio horvath
== END 2020-10-16 12:38 | disposition home or self-care (01) ==
PROVIDERS: Emergency Provider Emergency Medicine; PCP Internal Medicine Hematology & Oncology
DX: D57.00 Hb-SS disease with crisis, unspecified (principal)
CPT/HCPCS: 36415; 71046; 80053; 85025; 85046; 85610; 85730; 96361; 96374; 96376; 99284; J1170; J7030

== ENCOUNTER 2020-10-18 05:32 | Emergency (ER) | payer OTHER, SELFPAY ==
--- NOTE | ~2020-10-18 | XR_ITS ---
XR chest 1V portable DATE: 10/18/2020 06:32 INDICATION: Posterior bilateral rib pain for a few days TECHNIQUE: Portable AP chest on 10/18/2020 at 0633 hours COMPARISON: 10/16/2020, 07/24/2020 2 view chest examinations FINDINGS: There is chronic scarring at the lung bases, dating back to 07/24/2020. No superimposed infi ltrate or consolidation, pleural effusion or pulmonary vascular congestion or pneumothorax. Normal heart size. No apparent rib fracture or bone destruction is detected on this limited examination. IMPRESSION: Chronic bibasilar scarring Reviewed, dictated and finalized at location A. IMPRESSION: Chronic bibasilar scarring
[2020-10-18 05:37] VITALS: PULSE 100; RESP 20; TEMP 37.1; O2SAT 98
[2020-10-18 06:29] LABS: Basophils Absolute Auto 0.1 K/mm3 (0.0-0.1); Basophils Percent Auto 0.6 % (0.2-1.2); Eosinophils Absolute Auto 0.1 K/mm3 (0-0.3); Eosinophils Percent Auto 0.7 % (0-4.4); Hematocrit 29.3 % (42.0-52.0); Hemoglobin 10.3 g/dL (14.0-18.0); Immature Granulocyte Absolute 0.04 K/mm3 (0.00-0.031); Immature Granulocyte Percent A 0.4 % (0-0.5); Lymphocytes Absolute Auto 2.88 K/mm3 (0.9-3.2); Lymphocytes Percent Auto 28.6 % (18.3-44.2); Mean Corpuscular HGB Conc 35.2 g/dl (32-36); Mean Corpuscular Hemoglobin 30.4 pg (26-34); Mean Corpuscular Volume 86.4 fl (80-100); Mean Platelet Volume 9.7 fl (7.4-10.4); Monocytes Absolute Auto 0.9 K/mm3 (0.1-0.6); Monocytes Percent Auto 9.3 % (2.6-8.5); Neutrophils Absolute Auto 6.1 K/mm3 (1.3-6.7); Neutrophils Percent Auto 60.4 % (45.5-73.1); Nucleated Red Blood Cells Perc 0.3 % (0.0-0.2); Platelet Count Result 445 k/mm3 (150-375); Red Blood Count 3.39 M/mm3 (4.6-6.20); Red Cell Distribution Width 14.5 % (11.5-14.5); White Blood Count 10.1 K/mm3 (4.5-10.0)
[2020-10-18] MEDS: SODIUM CHLORIDE 0.9% IV 1,000 ML 999 ML IV CONT (06:34)
--- NOTE | 2020-10-18 06:34 | ED.GENADULT ---
HPI - General Adult General Chief complaint: Back Pain/Injury <Juvencio Fernandes MD - Last Filed: 10/18/20 07:03> Stated complaint: back pain <Juvencio Fernandes MD - Last Filed: 10/18/20 07:03> Time Seen by Provider: 10/18/20 06:25 <Juvencio Fernandes MD - Last Filed: 10/18/20 07:03> History of Present Illness HPI narrative: Patient 35-year-old gentleman who presents the emergency department with chief complaint of sickle cell pain crisis. Patient reports he has history of pulmonary embolisms and has possibly missed a few doses of his Coumadin the patient states that for several days he has been having pain in his back and also in his ribs. Patient states this is his typical exacerbation of his chronic. The patient was seen in the emergency department yesterday received pain medications but reports his pain is gotten worse today. Patient states that is not having any shortness of breath with this denies hypoxia. <Juvencio Fernandes MD - Last Filed: 10/18/20 07:03> Related Data Home medications: Home Medications Medication Instructions Recorded Confirmed folic acid 1 mg PO DAILY 02/16/19 10/04/20 hydroxyurea 500 mg PO DAILY 08/22/20 10/04/20 methadone 10 mg PO TID 08/22/20 10/04/20 oxycodone-acetaminophen 1 tablet PO BID PRN 08/22/20 10/04/20 warfarin 2 mg PO DAILY 08/22/20 10/04/20 warfarin 10 mg PO DAILY 08/22/20 10/04/20 <Juvencio Fernandes MD - Last Filed: 10/18/20 07:03> Allergies/adverse reactions: Allergies Allergy/AdvReac Type Severity Reaction Status Date / Time Fish Containing Products Allergy Intermediate Itching Verified 10/18/20 05:41 <Juvencio Fernandes MD - Last Filed: 10/18/20 07:03> Review of Systems Review of Systems: Narrative: A 10 system review of systems was completed on the patient and is negative except for what is stated in the HPI. Nursing and ancillary documentation was reviewed. <Juvencio Fernandes MD - Last Filed: 10/18/20 07:03> REPLACED BY [facility] Past Medical History Medical History: Medical History Acute chest syndrome Chronic anticoagulation Due to history of DVT and pulmonary embolism. Chronic narcotic use On methadone with oxycodone for chronic pain related to his sickle cell disease. Deep venous thrombosis Noncompliance History of noncompliance with anticoagulation and hydroxyurea. Pulmonary embolism Sickle cell disease, type SC <Juvencio Fernandse MD - Last Filed: 10/18/20 07:03> Surgical History Surgical History: Surgical History History of hand surgery Tendon surgery on right 5th finger. <Juvencio Fernandes MD - Last Filed: 10/18/20 07:03> Family History Family History: Family History Grandparent Diabetes mellitus Acute myocardial infarction Sibling Asthma Sibling Asthma Mother Hypertension Sickle cell trait Son Sickle cell trait Daughter Sickle cell trait Grandparent No problems noted. Other Diabetes mellitus Father Sickle cell trait <Juvencio Fernandes MD - Last Filed: 10/18/20 07:03> Social History Social History: Social History Social History: The patient lives in [place] with his family. He is on disability due to sickle cell disease and chronic pain. He designates his friend, Keyla Luther, as his surrogate decision maker and he wishes to be a full code. He is a lifelong nonsmoker and denies alcohol and drug use. The patient has 2 children who have the sickle cell trait. 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
[2020-10-18 06:38] LABS: Alanine Aminotransferase 16 U/L (4-50); Albumin Level 4.4 g/dL (3.5-5.1); Alkaline Phosphatase 94 U/L (38-126); Anion Gap 10 mmol/L (8-16); Aspartate Amino Transferase 27 U/L (17-59); Bilirubin,Total 0.8 mg/dL (0.2-1.3); Blood Urea Nitrogen 5 mg/dL (9-20); Calcium 9.2 mg/dL (8.4-10.2); Carbon Dioxide 24 mmol/L (22-30); Chloride 108 mmol/L (98-107); Estimated CRCL calculation 146 ml/min; Estimated Glomerular Filt Rate > 60; Glucose 118 mg/dL (75-110); Potassium 3.5 mmol/L (3.4-5.0); Sodium 142 mmol/L (137-145)
[2020-10-18] MEDS: ONDANSETRON INJ 4 MG/2 ML VIAL IV PUSH (06:39)
[2020-10-18] MEDS: HYDROmorphone HCL INJ (*CRX) 1 MG/ML SYR IV PUSH (06:40)
[2020-10-18 06:45] VITALS: BP 185/87; PULSE 85; RESP 18; O2SAT 97
[2020-10-18 06:48] LABS: Immature Reticulocyte Fraction 38.7 % (3.0-15.9); Reticulocyte Hemoglobin Conten 36.2 pg (28.2-35.7); Reticulocyte Percent 4.31 % (0.7-4.3); Reticulocytes Absolute 0.15 B/L (32.2-175.7)
[2020-10-18 06:59] LABS: Platelet Estimate Increased (Adequate); Sickle Cells 1+ (NORMAL); Target Cells 2+ (NORMAL)
[2020-10-18 07:11] LABS: INR 1.1; Prothrombin Time 13.8 Seconds (11.1-14.7)
[2020-10-18 07:13] LABS: Partial Thromboplastin Time 23.5 SECONDS (22.3-36.8)
[2020-10-18 08:03] VITALS: PULSE 68; RESP 15; O2SAT 100
[2020-10-18 08:36] VITALS: BP 117/70; PULSE 96; RESP 18; O2SAT 98
== END 2020-10-18 08:37 | disposition home or self-care (01) ==
PROVIDERS: Emergency Medicine; Emergency Provider Emergency Medicine; PCP Internal Medicine Hematology & Oncology
DX: D57.219 Sickle-cell/Hb-C disease with crisis, unspecified (principal); Z79.01 Long term (current) use of anticoagulants; Z86.718 Personal history of other venous thrombosis and embolism; Z86.711 Personal history of pulmonary embolism
CPT/HCPCS: 36415; 71045; 80053; 85025; 85046; 85610; 85730; 96361; 96374; 96375; 99284; J1170; J2405; J7030

== ENCOUNTER 2021-03-03 09:06 | Inpatient (IN) | payer OTHER, SELFPAY ==
[2021-03-03] VITALS (20 sets, daily range): BP systolic 101–151; BP diastolic 60–96; PULSE 86–108; RESP 11–21; TEMP 36.5–36.8; O2SAT 95–96; BMI 28.5
--- NOTE | ~2021-03-03 | XR_ITS ---
EXAMINATION: XR chest 2V EXAM DATE: 03/03/2021 09:47 INDICATION: Cough Posterior Rib And Back Pain/Sickle Cell Disease. TECHNIQUE: Frontal and lateral projections of the chest obtained and reviewed. Comparison is made to prior examination from 10/18/2020. FINDINGS: There is linear basilar airspace disease unchanged in appearance compared to previous exam ination, probably chronic scarring or atelectasis. No evidence of superimposed acute airspace disease . No pneumothorax or pleural effusion. Cardiomediastinal silhouette is normal. IMPRESSION: 1. Chronic basilar linear scarring/atelectasis. Reviewed, dictated and finalized at location B. ATIENT PHYSICAL THERAPIST ASSISTANT
[2021-03-03 09:38] LABS: Basophils Percent Auto 0.3 % (0.2-1.2); Eosinophils Absolute Auto 0.1 K/mm3 (0-0.3); Eosinophils Percent Auto 0.4 % (0-4.4); Hematocrit 30.6 % (42.0-52.0); Hemoglobin 11.1 g/dL (14.0-18.0); Immature Granulocyte Absolute 0.08 K/mm3 (0.00-0.031); Immature Granulocyte Percent A 0.5 % (0-0.5); Immature Platelet Fraction Pct 5.2 % (0.9-11.2); Lymphocytes Absolute Auto 3.13 K/mm3 (0.9-3.2); Lymphocytes Percent Auto 19.9 % (18.3-44.2); Mean Corpuscular HGB Conc 36.3 g/dl (32-36); Mean Corpuscular Hemoglobin 32.6 pg (26-34); Mean Corpuscular Volume 89.7 fl (80-100); Mean Platelet Volume 10.6 fl (7.4-10.4); Monocytes Absolute Auto 0.8 K/mm3 (0.1-0.6); Monocytes Percent Auto 5.2 % (2.6-8.5); Neutrophils Absolute Auto 11.6 K/mm3 (1.3-6.7); Neutrophils Percent Auto 73.7 % (45.5-73.1); Nucleated Red Blood Cells Absolute Auto 0.1 K/mm3 (0.0-0.012); Nucleated Red Blood Cells Perc 0.4 % (0.0-0.2); Platelet Count Result 396 k/mm3 (150-375); Red Blood Count 3.41 M/mm3 (4.6-6.20); Red Cell Distribution Width 14.6 % (11.5-14.5); White Blood Count 15.7 K/mm3 (4.5-10.0)
[2021-03-03 09:45] LABS: Alanine Aminotransferase 28 U/L (4-50); Albumin Level 4.8 g/dL (3.5-5.1); Alkaline Phosphatase 109 U/L (38-126); Anion Gap 10 mmol/L (8-16); Aspartate Amino Transferase 39 U/L (17-59); Bilirubin,Total 1.1 mg/dL (0.2-1.3); Blood Urea Nitrogen 7 mg/dL (9-20); Calcium 9.3 mg/dL (8.4-10.2); Carbon Dioxide 24 mmol/L (22-30); Chloride 106 mmol/L (98-107); Estimated CRCL calculation 114 ml/min; Estimated Glomerular Filt Rate > 60; Glucose 131 mg/dL (65-110); Lactate Dehydrogenase 628 U/L (313-618); Potassium 3.4 mmol/L (3.4-5.0); Sodium 140 mmol/L (137-145)
[2021-03-03 09:49] LABS: INR 1.1; Prothrombin Time 13.8 Seconds (11.1-14.7)
[2021-03-03 09:50] LABS: Partial Thromboplastin Time 28.3 SECONDS (22.3-36.8)
[2021-03-03] MEDS: SODIUM CHLORIDE 0.9% IV 1,000 ML 999 ML IV CONT (10:04)
[2021-03-03] MEDS: ONDANSETRON INJ 4 MG/2 ML VIAL IV PUSH (10:05)
[2021-03-03] MEDS: HYDROmorphone HCL INJ (*CRX) 1 MG/ML SYR IV PUSH ×3 (10:07→12:12)
[2021-03-03 10:13] LABS: Reticulocyte Percent 6.67 % (0.7-4.3); Reticulocytes Absolute 0.05 B/L (32.2-175.7)
[2021-03-03 10:14] LABS: Immature Reticulocyte Fraction 39.8 % (3.0-15.9); Reticulocyte Hemoglobin Conten 34.3 pg (28.2-35.7)
[2021-03-03 10:24] LABS: Platelet Estimate Increased (Adequate)
[2021-03-03 10:25] LABS: Sickle Cells 1+ (NORMAL)
[2021-03-03 10:26] LABS: Schistocytes 1+ (NORMAL); Target Cells 2+ (NORMAL)
--- NOTE | 2021-03-03 13:19 | ED.GENADULT ---
HPI - General Adult General Chief complaint: Unspecified Stated complaint: sickle cell pain Time Seen by Provider: 03/03/21 09:31 History of Present Illness HPI narrative: Patient is a 35-year-old male who presents ER with reports of sickle cell pain crisis. Reports the recent change in weather becoming cold has exacerbated his symptoms. He is having pain in his thighs as well as his ribs. This is typical for him. No fevers or chills or sweats. He did have a productive cough yesterday. No chest pain or chest pressure. He has no nausea or vomiting. He has been taking his home methadone as well as hydroxyurea. He has not seen his oncologist/lawyer probate for several months. Related Data Home Medications Medication Instructions Recorded Confirmed folic acid 1 mg PO DAILY 02/16/19 10/04/20 hydroxyurea 500 mg PO DAILY 08/22/20 10/04/20 methadone 10 mg PO TID 08/22/20 10/04/20 oxycodone-acetaminophen 1 tablet PO BID PRN 08/22/20 10/04/20 warfarin 2 mg PO DAILY 08/22/20 10/04/20 warfarin 10 mg PO DAILY 08/22/20 10/04/20 Allergies Allergy/AdvReac Type Severity Reaction Status Date / Time Fish Containing Products Allergy Intermediate Itching Verified 03/03/21 10:10 Review of Systems Review of Systems: All systems reviewed & are unremarkable except as noted in HPI and below Constitutional: Constitutional: Denies chills, Denies fever(s) and Denies weakness ENT: Denies nasal discharge and Denies sore throat Cardiovascular: Cardiovascular: Denies chest pain, Denies rapid heart rate and Denies palpitations Respiratory: Respiratory: Reports cough, Denies hemoptysis and Denies dyspnea Gastrointestinal: Gastrointestinal: Denies abdominal pain, Denies nausea and Denies vomiting Musculoskeletal: Musculoskeletal: Reports myalgias, Denies arthralgias, Denies joint swelling and Denies muscle cramps PMFSH Past Medical History Medical History Acute chest syndrome Chronic anticoagulation Due to history of DVT and pulmonary embolism. Chronic narcotic use On methadone with oxycodone for chronic pain related to his sickle cell disease. Deep venous thrombosis Noncompliance History of noncompliance with anticoagulation and hydroxyurea. Pulmonary embolism Sickle cell disease, type SC Surgical History Surgical History History of hand surgery Tendon surgery on right 5th finger. Family History Family History Grandparent Diabetes mellitus Acute myocardial infarction Sibling Asthma Sibling Asthma Mother Hypertension Sickle cell trait Son Sickle cell trait Daughter Sickle cell trait Grandparent No problems noted. Other Diabetes mellitus Father Sickle cell trait Social History Social History Social History: The patient lives in [place] with his family. He is on disability due to sickle cell disease and chronic pain. He designates his friend, Keyla Luther, as his surrogate decision maker and he wishes to be a full code. He is a lifelong nonsmoker and denies alcohol and drug use. The patient has 2 children who have the sickle cell trait. Smoking status: Never smoker Alcohol intake: never Substance use: never Substance use type: does not use Additional occupation/education comments: Gender identity (if verbalized by the patient): Male Sexual Orientation (if Verbalized by the Patient): Straight or Heterosexual Spiritual care concerns: No Agree to blood products: Yes Exam Narrative: GENERAL: Well-appearing, well-nourished, and in no acute distress. HEAD: Normocephalic, atraumatic. ENT: Mucous membranes moist. CHEST: Clear to auscultation. No respiratory distress. HEART: Regular rate and rhythm. Normal peripheral pulses. ABDOMEN
[2021-03-03] MEDS: ENOXAPARIN 100 MG/ML SYRINGE 94 MG SUB-Q (14:25)
--- NOTE | 2021-03-03 15:29 | ADMGEN ---
This patient, Quan Downing, was admitted to 2 Medical Room 261-01. Patient/family oriented to hospital policies and general routines including ID bracelet, bed and alarms, visiting hours, pain management, procedures, bathroom and other care routines, personal items, smoking policy, room service/diet, and visiting hours. Information on how to activate the Rapid Response Team has been discussed. Patient/Family are encouraged to report perceived risks to care and to ask questions if they do not understand what they are told or what they should do.
[2021-03-03] MEDS: SODIUM CHLORIDE 0.9% IV 1,000 ML 125 ML IV CONT (15:34)
--- NOTE | 2021-03-03 15:47 | PDONCCN ---
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 Patient also has a history of pulmonary embolism currently on warfarin. He did not take the medicine for last couple of days as he was feeling quite tired and fatigue and having generalized musculoskeletal pain. He denies any fevers and chills. Denies any night sweats. No signs of infection. He has been taking methadone twice a day as well as hydrocodone for his pain control at home. His home medication did not work lately and he decided come to the ER. Chest x-ray came back unremarkable. Labs showed slightly elevated reticulocyte count and WBC count. Review of Systems - Review of Systems All systems reviewed & are unremarkable except as noted in HPI and bel - Neurologic Denies weakness PMFSH Medical History: Medical History (Last Reviewed 10/18/20 @ 06:35 by Juvencio Fernandes MD) Acute chest syndrome Chronic anticoagulation Due to history of DVT and pulmonary embolism. Chronic narcotic use On methadone with oxycodone for chronic pain related to his sickle cell disease. Deep venous thrombosis Noncompliance History of noncompliance with anticoagulation and hydroxyurea. Pulmonary embolism Sickle cell disease, type SC Surgical History: Surgical History (Last Reviewed 10/18/20 @ 06:35 by Juvencio Fernandes MD) History of hand surgery Tendon surgery on right 5th finger. Family History: Family History (Last Reviewed 03/03/21 @ 15:29 by Hodan Santos RN) Grandparent Diabetes mellitus Acute myocardial infarction Sibling Asthma Sibling Asthma Mother Hypertension Sickle cell trait Son Sickle cell trait Daughter Sickle cell trait Grandparent No problems noted. Other Diabetes mellitus Father Sickle cell trait - Social History Social History: Social History (Last Reviewed 10/18/20 @ 06:35 by Juvencio Fernandes MD) Gender Identity: Gender identity (if verbalized by the patient): Male Sexual Orientation: Sexual Orientation (if Verbalized by the Patient): Straight or Heterosexual Alcohol Use: Alcohol intake: never Substance Use: Substance use: never Substance use type: does not use Others: Spiritual care concerns: No Agree to blood products: Yes Smoking Status: Smoking status: Never smoker Meds Home Medications Medication Instructions Recorded Confirmed Type folic acid 1 mg PO DAILY 02/16/19 10/04/20 History hydroxyurea 500 mg PO DAILY 08/22/20 10/04/20 History methadone 10 mg PO TID 08/22/20 10/04/20 History oxycodone-acetaminophen 1 tablet PO BID PRN 08/22/20 10/04/20 History warfarin 2 mg PO DAILY 08/22/20 10/04/20 History warfarin 10 mg PO DAILY 08/22/20 10/04/20 History Allergies Allergy/AdvReac Type Severity Reaction Status Date / Time Fish Containing Products Allergy Intermediate Itching Verified 03/03/21 10:10 Results - Labs CBC & Chem 7: 03/03/21 09:28 03/03/21 09:29 Labs: Short CBC 03/03/21 Range/Units 09:28 WBC 15.7 H (4.5-10.0) K/mm3 Hgb 11.1 L (14.0-18.0) g/dL Hct 30.6 L (42.0-52.0) % Plt Count 396 H (150-375) k/mm3 BMP 03/03/21 09:29 Sodium 140 Potassium 3.4 Chloride 106 Carbon Dioxide 24 BUN 7 L Creatinine 0.80 Glucose 131 H Calcium 9.3 Liver Function 03/03/21 Range/Units 09:29 Total Bilirubin 1.1 (0.2-1.3) mg/dL AST 39 (17-59) U/L ALT 28 (4-50) U/L Alkaline Phosphatase 109 (38-126) U/L Albumin 4.8 (3.5-5.1) g/dL Assessment and Plan - Additional Plan Sickle cell crisis. Patient has a history of hemoglobin SC disease. He is to come to the ER frequently
[2021-03-03] MEDS: HYDROmorphone HCL INJ (*CRX) 1 MG/ML SYR 3 MG IV PUSH ×2 (15:57→22:04)
[2021-03-03] MEDS: WARFARIN (*PBKC) 10 MG TABLET PO (18:02)
[2021-03-03] MEDS: WARFARIN (*PBKC) 2.5 MG TABLET PO (18:02)
[2021-03-03 18:17] LABS: Lactate Dehydrogenase 577 U/L (313-618)
--- NOTE | 2021-03-03 19:00 | PM.IMHP ---
H&P: HPI History of Present Illness Date/Time: 03/03/21 19:00 this is a 35-year-old female patient who has a history of sickle cell anemia who has had recurrent sickle cell crisis. He does see Dr. stallings every 6 months. The patient also has a history of having a pulmonary embolism and is on warfarin. The patient is unable to be on Pradaxa or Xarelto due to insurance reasons. The patient is frequently subtherapeutic on his Coumadin. The patient has generalized discomfort. But the patient states that he has more discomfort in his chest and his knees. He does have some pain in his hands. The patient is on methadone and has been taking his routine medications. He stated that he has been drinking water without difficulty and he feels that maybe the change in the weather has caused him more discomfort. His white count is noted to be 15.7 with a H&H of 11.1 and 30.6. Platelet count 396. Dr. stallings has been consulted. He has made recommendations for pain management. Patient was started on IV hydration and Dilaudid. The patient was started on therapeutic Lovenox because his INR is 1.1. The patient is being admitted to observation status on 03/03/2021. Chief Complaint: sickle cell pain Review of Systems Review of Systems: All systems reviewed & are unremarkable except as noted in HPI and below Constitutional: Constitutional: Reports as per HPI and Reports no additional constitutional complaints Eyes: Eyes: Reports as per HPI and Reports no additional eye complaints ENT: Reports system reviewed and no additional complaints, except as documented and Reports Normal hearing present Cardiovascular: Cardiovascular: Reports no additional cardiovascular complaints Respiratory: Respiratory: Reports no additional respiratory complaints and Reports no additional respiratory complaints Gastrointestinal: Gastrointestinal: Reports as per HPI and Reports no additional gastrointestinal complaints Musculoskeletal: Musculoskeletal: Reports no additional musculoskeletal complaints Integumentary/Breasts: Skin/Breast: Reports system reviewed and no additional complaints, except as docu and Reports as per HPI Neurologic: Reports system reviewed and no additional complaints, except as documented, Reports as per HPI and Reports Normal hearing present Psychiatric: Psychiatric: Reports no additional psychiatric complaints and Reports as per HPI Endocrine: Endocrine: Reports no additional endocrine complaints Hematologic/Lymphatic: Hematologic/Lymphatic: Reports no additional hematologic/lymphatic complaints Allergic/Immunologic: Allergic/Immunologic: Reports no additional allergic/immunologic complaints [facility] Past Medical History Medical History Acute chest syndrome Chronic anticoagulation Due to history of DVT and pulmonary embolism. Chronic narcotic use On methadone with oxycodone for chronic pain related to his sickle cell disease. Deep venous thrombosis Noncompliance History of noncompliance with anticoagulation and hydroxyurea. Pulmonary embolism Sickle cell disease, type SC Surgical History Surgical History History of hand surgery Tendon surgery on right 5th finger. Family History Family History Grandparent Diabetes mellitus Acute myocardial infarction Sibling Asthma Sibling Asthma Mother Hypertension Sickle cell trait Son Sickle cell trait Daughter Sickle cell trait Grandparent No problems noted. Other Diabetes mellitus Father Sickle cell trait Social History Social History Social History: The patient lives in [place] with his family. He is on disability due to sickle cell disease and chronic pain. He designates his friend, Keyla Luther, as his surrogate decision maker and he wishes to be a
[2021-03-03] MEDS: ENOXAPARIN 100 MG/ML SYRINGE 90 MG SUB-Q (22:04)
[2021-03-03 22:42] LABS: INR 1.1; Prothrombin Time 14.3 Seconds (11.1-14.7)
[2021-03-04] MEDS: SODIUM CHLORIDE 0.9% IV 1,000 ML 125 ML IV CONT ×3 (01:16→18:23)
[2021-03-04] MEDS: HYDROmorphone HCL INJ (*CRX) 1 MG/ML SYR 3 MG IV PUSH ×8 (01:17→22:51)
[2021-03-04 01:19] VITALS: BP 129/82; PULSE 90; RESP 18; TEMP 36.6; O2SAT 96
[2021-03-04 05:23] VITALS: BP 125/75; PULSE 97; RESP 16; TEMP 36.4; O2SAT 91
[2021-03-04] MEDS: HYDROXYUREA (*CHEMO) 500 MG CAPSULE PO (09:06)
[2021-03-04] MEDS: FOLIC ACID 1 MG TABLET PO (09:06)
[2021-03-04] MEDS: ENOXAPARIN 100 MG/ML SYRINGE 90 MG SUB-Q ×2 (09:06→19:56)
[2021-03-04 09:53] VITALS: BP 110/69; PULSE 76; RESP 18; TEMP 36.7; O2SAT 96
--- NOTE | 2021-03-04 09:56 | PM.IMPN ---
Progress Note: A&P Assessment and Plan (1) Sickle cell pain crisis: Code(s): D57.00 - Hb-SS disease with crisis, unspecified Status: Acute Assessment and Plan: Per Dr. Marks recommendations, the patient was restarted on hydroxyurea, dilaudid 3 mg every 3 hours, benadryl, folic acid . (2) Subtherapeutic international normalized ratio (INR): Code(s): R79.1 - Abnormal coagulation profile Status: Acute Assessment and Plan: Continue close monitoring of daily PT INR. INR remains subtherapeutic at 1.3 today and patient needs to continue with subcutaneous Lovenox to bridge over to the therapeutic doses of Coumadin. Per Dr. Marks, patient was restarted on his regular dose of 12 mg of Coumadin. Unfortunately, due to insurance coverage, the patient is not eligible for Pradaxa or Xarelto at the moment. (3) Pulmonary embolism: Code(s): I26.99 - Other pulmonary embolism without acute cor pulmonale Status: Chronic Assessment and Plan: Patient was educated about the importance of compliance with Coumadin. He will have daily PT INR. His INR is 1.1 at this point. I discussed the effects of not taking his anticoagulation the way he should. (4) Chronic pain syndrome: Code(s): G89.4 - Chronic pain syndrome Status: Chronic Assessment and Plan: Sickle cell painful crisis. Continue with home medication the patient is on methadone Subjective Date/time seen: 03/04/21 09:56 Narrative: This is a 35-year-old gentleman with sickle cell disease anemia, pulmonary embolism and is on warfarin. The patient is unable to be on Pradaxa or Xarelto due to insurance reasons. The patient is frequently subtherapeutic on his Coumadin. The patient has generalized discomfort. But the patient states that he has more discomfort in his chest and his knees. He does have some pain in his hands, arms, back. The patient is on methadone and has been taking his routine medications. Dr. Marks has been consulted. Patient was started on IV hydration and Dilaudid. S: patient was examined at the bedside. He reports diffuse pain 8/10 at his lower back, upper extremities, both hands. He is feeling better with the current management and denied any additional complaints. Review of Systems Review of Systems: All systems reviewed & are unremarkable except as noted in HPI and below Constitutional: Constitutional: Reports as per HPI, Reports body ache(s), Reports fatigue, Reports lethargy and Reports malaise Eyes: Eyes: Reports as per HPI, Denies blurry vision and Reports other Comments: No icterus. ENT: Reports system reviewed and no additional complaints, except as documented, Denies headache(s), Denies epistaxis and Denies nasal congestion Cardiovascular: Cardiovascular: Reports as per HPI, Reports no additional cardiovascular complaints, Denies pedal edema, Denies edema, Denies irregular heart rhythm, Denies leg edema and Denies dyspnea on exertion Respiratory: Respiratory: Reports as per HPI, Denies cough, Denies pain with cough, Denies dyspnea, Denies dyspnea on exertion and Denies wheezing Gastrointestinal: Gastrointestinal: Reports as per HPI, Denies abdominal pain, Denies constipation, Denies nausea and Denies vomiting Genitourinary: Genitourinary: Reports no additional male genitourinary complaints Musculoskeletal: Musculoskeletal: Reports back pain, Reports myalgias and Reports arthralgias Integumentary/Breasts: Skin/Breast: Reports system reviewed and no additional complaints, except as docu Neurologic: Reports system reviewed and no additional complaints, except as documented Psychiatric: Psychiatric: Reports no additional psychiatric complaints Endocrine: Endocrine: Reports no additional endocrine complaints Hematologic/Lymphatic: Hematologic/Lymphatic: Reports no additional hematologic/lymphatic complaints Allergic/Immunologic: Allergic/Immunologic: Reports no additional allergic/immunologic
[2021-03-04 12:40] LABS: Lactic Acid Reflex 1.2 mmol/L (0.7-2.1)
[2021-03-04 12:45] LABS: Alanine Aminotransferase 23 U/L (4-50); Albumin Level 4.4 g/dL (3.5-5.1); Alkaline Phosphatase 91 U/L (38-126); Anion Gap 7 mmol/L (8-16); Aspartate Amino Transferase 37 U/L (17-59); Bilirubin,Total 1.1 mg/dL (0.2-1.3); Blood Urea Nitrogen 6 mg/dL (9-20); Calcium 8.9 mg/dL (8.4-10.2); Carbon Dioxide 23 mmol/L (22-30); Chloride 107 mmol/L (98-107); Estimated CRCL calculation 129 ml/min; Estimated Glomerular Filt Rate > 60; Glucose 95 mg/dL (65-110); Lactate Dehydrogenase 608 U/L (313-618); Lipase 119 U/L (23-300); Magnesium 2.1 mg/dL (1.6-2.3); Potassium 4.2 mmol/L (3.4-5.0); Sodium 137 mmol/L (137-145)
[2021-03-04 14:00] VITALS: BP 111/72; PULSE 94; RESP 16; TEMP 36.6; O2SAT 96
[2021-03-04 14:33] LABS: INR 1.3; Prothrombin Time 15.9 Seconds (11.1-14.7)
[2021-03-04 15:18] LABS: Basophils Absolute Auto 0.1 K/mm3 (0.0-0.1); Basophils Percent Auto 0.6 % (0.2-1.2); Eosinophils Absolute Auto 0.1 K/mm3 (0-0.3); Eosinophils Percent Auto 0.9 % (0-4.4); Hematocrit 27.9 % (42.0-52.0); Hemoglobin 9.7 g/dL (14.0-18.0); Immature Granulocyte Absolute 0.03 K/mm3 (0.00-0.031); Immature Granulocyte Percent A 0.2 % (0-0.5); Lymphocytes Absolute Auto 4.36 K/mm3 (0.9-3.2); Lymphocytes Percent Auto 35.6 % (18.3-44.2); Mean Corpuscular HGB Conc 34.8 g/dl (32-36); Mean Corpuscular Hemoglobin 31.9 pg (26-34); Mean Corpuscular Volume 91.8 fl (80-100); Mean Platelet Volume 10.9 fl (7.4-10.4); Monocytes Percent Auto 8.2 % (2.6-8.5); Neutrophils Absolute Auto 6.7 K/mm3 (1.3-6.7); Neutrophils Percent Auto 54.5 % (45.5-73.1); Nucleated Red Blood Cells Perc 0.3 % (0.0-0.2); Platelet Count Result 329 k/mm3 (150-375); Red Blood Count 3.04 M/mm3 (4.6-6.20); Red Cell Distribution Width 14.4 % (11.5-14.5); White Blood Count 12.2 K/mm3 (4.5-10.0)
[2021-03-04] MEDS: WARFARIN (*PBKC) 2.5 MG TABLET PO (16:51)
[2021-03-04] MEDS: WARFARIN (*PBKC) 10 MG TABLET PO (16:52)
[2021-03-04] MEDS: ONDANSETRON INJ 4 MG/2 ML VIAL IV PUSH ×2 (17:33→22:50)
[2021-03-04 18:00] VITALS: BP 110/64; PULSE 87; RESP 18; TEMP 36.2; O2SAT 95
[2021-03-04 21:48] VITALS: BP 116/63; PULSE 92; RESP 16; TEMP 36.4; O2SAT 94
[2021-03-05] MEDS: SODIUM CHLORIDE 0.9% IV 1,000 ML 125 ML IV CONT ×3 (01:38→17:59)
[2021-03-05] MEDS: HYDROmorphone HCL INJ (*CRX) 1 MG/ML SYR 3 MG IV PUSH ×7 (01:39→20:59)
[2021-03-05 01:55] VITALS: BP 118/79; PULSE 102; RESP 16; TEMP 36.4; O2SAT 99
[2021-03-05] MEDS: ONDANSETRON INJ 4 MG/2 ML VIAL IV PUSH (04:33)
[2021-03-05 05:46] VITALS: BP 130/75; PULSE 90; RESP 16; TEMP 36.7; O2SAT 95
[2021-03-05 06:05] LABS: Basophils Absolute Auto 0.1 K/mm3 (0.0-0.1); Basophils Percent Auto 0.4 % (0.2-1.2); Eosinophils Absolute Auto 0.1 K/mm3 (0-0.3); Eosinophils Percent Auto 0.5 % (0-4.4); Hematocrit 27.1 % (42.0-52.0); Hemoglobin 9.5 g/dL (14.0-18.0); Immature Granulocyte Absolute 0.06 K/mm3 (0.00-0.031); Immature Granulocyte Percent A 0.4 % (0-0.5); Lymphocytes Absolute Auto 5.14 K/mm3 (0.9-3.2); Lymphocytes Percent Auto 37.2 % (18.3-44.2); Mean Corpuscular HGB Conc 35.1 g/dl (32-36); Mean Corpuscular Hemoglobin 32.1 pg (26-34); Mean Corpuscular Volume 91.6 fl (80-100); Mean Platelet Volume 10.5 fl (7.4-10.4); Monocytes Absolute Auto 1.1 K/mm3 (0.1-0.6); Monocytes Percent Auto 7.9 % (2.6-8.5); Neutrophils Absolute Auto 7.4 K/mm3 (1.3-6.7); Neutrophils Percent Auto 53.6 % (45.5-73.1); Nucleated Red Blood Cells Perc 0.2 % (0.0-0.2); Platelet Count Result 313 k/mm3 (150-375); Red Blood Count 2.96 M/mm3 (4.6-6.20); Red Cell Distribution Width 14.5 % (11.5-14.5); White Blood Count 13.8 K/mm3 (4.5-10.0)
[2021-03-05 06:12] LABS: INR 1.4; Prothrombin Time 17.2 Seconds (11.1-14.7)
[2021-03-05 06:30] LABS: Anion Gap 10 mmol/L (8-16); Blood Urea Nitrogen 5 mg/dL (9-20); Calcium 8.9 mg/dL (8.4-10.2); Carbon Dioxide 23 mmol/L (22-30); Chloride 107 mmol/L (98-107); Estimated CRCL calculation 129 ml/min; Estimated Glomerular Filt Rate > 60; Glucose 93 mg/dL (65-110); Potassium 3.7 mmol/L (3.4-5.0); Sodium 140 mmol/L (137-145)
[2021-03-05 07:17] LABS: Platelet Estimate Adequate (Adequate); Target Cells 3+ (NORMAL)
[2021-03-05 07:18] LABS: Sickle Cells 2+ (NORMAL)
[2021-03-05 07:19] LABS: Stomatocytes 2+ (NORMAL)
[2021-03-05] MEDS: FOLIC ACID 1 MG TABLET PO (08:21)
[2021-03-05] MEDS: HYDROXYUREA (*CHEMO) 500 MG CAPSULE PO (08:21)
[2021-03-05] MEDS: ENOXAPARIN 100 MG/ML SYRINGE 90 MG SUB-Q ×2 (08:21→20:59)
--- NOTE | 2021-03-05 09:46 | PM.IMPN ---
Progress Note: A&P Assessment and Plan (1) Sickle cell pain crisis: Code(s): D57.00 - Hb-SS disease with crisis, unspecified Status: Acute Assessment and Plan: Patient remains symptomatic with of sickle cell painful crisis, slowly improving.Per Dr. Marks recommendations, the patient was restarted on hydroxyurea, dilaudid 3 mg every 3 hours, benadryl, folic acid . (2) Subtherapeutic international normalized ratio (INR): Code(s): R79.1 - Abnormal coagulation profile Status: Acute Assessment and Plan: Continue close monitoring of daily PT INR. INR remains subtherapeutic at 1.4 today and patient needs to continue with subcutaneous Lovenox to bridge over to the therapeutic doses of Coumadin. Per Dr. Marks, patient was restarted on his regular dose of 12 mg of Coumadin. Unfortunately, due to insurance coverage, the patient is not eligible for Pradaxa or Xarelto at the moment. (3) Pulmonary embolism: Code(s): I26.99 - Other pulmonary embolism without acute cor pulmonale Status: Chronic Assessment and Plan: Patient was educated about the importance of compliance with Coumadin. He will have daily PT INR. His INR is 1.4 at this point. (4) Chronic pain syndrome: Code(s): G89.4 - Chronic pain syndrome Status: Chronic Assessment and Plan: Sickle cell painful crisis. Continue with home medication the patient is on methadone Subjective Date/time seen: 03/05/21 09:46 S: Patient was examined at the bedside. He rates his pain as 7/10. He reports lower back pain, bilateral hands, and bilateral leg pain. He had a good night of sleep last night and his appetite is good this morning he is requesting a regular diet. Review of Systems Review of Systems: All systems reviewed & are unremarkable except as noted in HPI and below Constitutional: Constitutional: Reports as per HPI, Reports no additional constitutional complaints, Reports body ache(s), Reports fatigue, Denies headache(s), Reports lethargy and Reports malaise Eyes: Eyes: Reports as per HPI, Reports no additional eye complaints, Denies blurry vision and Reports other ENT: Reports system reviewed and no additional complaints, except as documented, Reports Normal hearing present, Denies headache(s), Denies epistaxis and Denies nasal congestion Cardiovascular: Cardiovascular: Reports as per HPI, Reports no additional cardiovascular complaints, Denies pedal edema, Denies edema, Denies irregular heart rhythm, Denies leg edema, Denies dyspnea and Denies dyspnea on exertion Respiratory: Respiratory: Reports as per HPI, Reports no additional respiratory complaints, Reports no additional respiratory complaints, Denies cough, Denies pain with cough, Denies dyspnea, Denies dyspnea on exertion and Denies wheezing Gastrointestinal: Gastrointestinal: Reports as per HPI, Reports no additional gastrointestinal complaints, Denies abdominal pain, Denies constipation, Denies nausea and Denies vomiting Genitourinary: Genitourinary: Reports no additional male genitourinary complaints Musculoskeletal: Musculoskeletal: Reports back pain, Reports myalgias and Reports arthralgias Integumentary/Breasts: Skin/Breast: Reports system reviewed and no additional complaints, except as docu and Reports as per HPI Neurologic: Reports system reviewed and no additional complaints, except as documented, Reports as per HPI, Reports Normal hearing present and Denies headache(s) Psychiatric: Psychiatric: Reports no additional psychiatric complaints and Reports as per HPI Endocrine: Endocrine: Reports no additional endocrine complaints and Reports fatigue Hematologic/Lymphatic: Hematologic/Lymphatic: Reports no additional hematologic/lymphatic complaints Allergic/Immunologic: Allergic/Immunologic: Reports no additional allergic/immunologic complaints and Denies wheezing Exam Const: General: cooperative, healthy appearing, comfortable, no acute distr
[2021-03-05 10:15] VITALS: BP 120/67; PULSE 91; RESP 16; TEMP 37; O2SAT 95
[2021-03-05 14:50] VITALS: BP 122/70; PULSE 87; RESP 16; TEMP 36.4; O2SAT 94
[2021-03-05] MEDS: WARFARIN (*PBKC) 10 MG TABLET PO (17:56)
[2021-03-05] MEDS: WARFARIN (*PBKC) 2.5 MG TABLET PO (17:56)
[2021-03-05 18:00] VITALS: BP 117/78; PULSE 91; RESP 16; TEMP 37.1; O2SAT 96
[2021-03-05 22:14] VITALS: BP 118/79; PULSE 87; RESP 16; TEMP 36.8; O2SAT 94
[2021-03-06] VITALS (7 sets, daily range): BP systolic 107–136; BP diastolic 62–76; PULSE 78–85; RESP 16–17; TEMP 36.1–36.9; O2SAT 95–98
[2021-03-06] MEDS: HYDROmorphone HCL INJ (*CRX) 1 MG/ML SYR 3 MG IV PUSH ×8 (00:06→21:46)
[2021-03-06] MEDS: SODIUM CHLORIDE 0.9% IV 1,000 ML 125 ML IV CONT ×3 (02:03→18:15)
[2021-03-06 06:32] LABS: Anion Gap 3 mmol/L (8-16); Blood Urea Nitrogen 4 mg/dL (9-20); Calcium 9.1 mg/dL (8.4-10.2); Carbon Dioxide 29 mmol/L (22-30); Chloride 107 mmol/L (98-107); Estimated CRCL calculation 148 ml/min; Estimated Glomerular Filt Rate > 60; Glucose 100 mg/dL (65-110); Sodium 139 mmol/L (137-145)
[2021-03-06 06:42] LABS: INR 1.8; Prothrombin Time 20.3 Seconds (11.1-14.7)
[2021-03-06 09:05] LABS: Basophils Absolute Auto 0.1 K/mm3 (0.0-0.1); Basophils Percent Auto 0.8 % (0.2-1.2); Eosinophils Absolute Auto 0.1 K/mm3 (0-0.3); Hematocrit 28.7 % (42.0-52.0); Hemoglobin 10.2 g/dL (14.0-18.0); Immature Granulocyte Absolute 0.03 K/mm3 (0.00-0.031); Immature Granulocyte Percent A 0.3 % (0-0.5); Lymphocytes Absolute Auto 4.73 K/mm3 (0.9-3.2); Lymphocytes Percent Auto 44.6 % (18.3-44.2); Mean Corpuscular HGB Conc 35.5 g/dl (32-36); Mean Corpuscular Hemoglobin 32.6 pg (26-34); Mean Corpuscular Volume 91.7 fl (80-100); Mean Platelet Volume 11.1 fl (7.4-10.4); Monocytes Absolute Auto 0.8 K/mm3 (0.1-0.6); Monocytes Percent Auto 7.7 % (2.6-8.5); Neutrophils Absolute Auto 4.8 K/mm3 (1.3-6.7); Neutrophils Percent Auto 45.6 % (45.5-73.1); Nucleated Red Blood Cells Absolute Auto 0.1 K/mm3 (0.0-0.012); Nucleated Red Blood Cells Perc 0.6 % (0.0-0.2); Platelet Count Result 300 k/mm3 (150-375); Red Blood Count 3.13 M/mm3 (4.6-6.20); Red Cell Distribution Width 14.2 % (11.5-14.5); White Blood Count 10.6 K/mm3 (4.5-10.0)
[2021-03-06] MEDS: HYDROXYUREA (*CHEMO) 500 MG CAPSULE PO (09:23)
[2021-03-06] MEDS: ENOXAPARIN 100 MG/ML SYRINGE 90 MG SUB-Q ×2 (09:23→21:46)
[2021-03-06] MEDS: FOLIC ACID 1 MG TABLET PO (09:23)
--- NOTE | 2021-03-06 09:27 | PM.IMPN ---
Progress Note: A&P Assessment and Plan (1) Sickle cell pain crisis: Code(s): D57.00 - Hb-SS disease with crisis, unspecified Status: Acute Assessment and Plan: Patient remains symptomatic with of sickle cell painful crisis, slowly improving.Per Dr. Marks recommendations, the patient was restarted on hydroxyurea, dilaudid 3 mg every 3 hours, benadryl, folic acid . Patient reports improved pain control. However he still rates his pain at 8/10. We will continue IV fluids, IV pain medications. (2) Subtherapeutic international normalized ratio (INR): Code(s): R79.1 - Abnormal coagulation profile Status: Acute Assessment and Plan: Continue close monitoring of daily PT INR. INR is increasing slowly but remains subtherapeutic at 1.8 today and patient needs to continue with subcutaneous Lovenox to bridge over to the therapeutic doses of Coumadin. Per Dr. Marks, patient was restarted on his regular dose of 12 mg of Coumadin. Unfortunately, due to insurance coverage, the patient is not eligible for Pradaxa or Xarelto at the moment. (3) Pulmonary embolism: Code(s): I26.99 - Other pulmonary embolism without acute cor pulmonale Status: Chronic Assessment and Plan: Patient was educated about the importance of compliance with Coumadin. He will have daily PT INR. His INR is 1.8 at this point. (4) Chronic pain syndrome: Code(s): G89.4 - Chronic pain syndrome Status: Chronic Assessment and Plan: Sickle cell painful crisis. Continue with home medication; the patient is on methadone Subjective Date/time seen: 03/06/21 09:27 S: Patient was examined at the bedside. He reports diffuse body aches. He declines any additional medication. INR is 1.8 today and patient was educated about importance of compliance to his medical regimen. Review of Systems Review of Systems: All systems reviewed & are unremarkable except as noted in HPI and below Constitutional: Constitutional: Reports as per HPI, Reports no additional constitutional complaints, Reports body ache(s), Reports fatigue, Denies headache(s), Reports lethargy and Reports malaise Eyes: Eyes: Reports as per HPI, Reports no additional eye complaints, Denies blurry vision and Reports other ENT: Reports system reviewed and no additional complaints, except as documented, Reports Normal hearing present, Denies headache(s), Denies epistaxis and Denies nasal congestion Cardiovascular: Cardiovascular: Reports as per HPI, Reports no additional cardiovascular complaints, Denies pedal edema, Denies edema, Denies irregular heart rhythm, Denies leg edema, Denies dyspnea and Denies dyspnea on exertion Respiratory: Respiratory: Reports as per HPI, Reports no additional respiratory complaints, Reports no additional respiratory complaints, Denies cough, Denies pain with cough, Denies dyspnea, Denies dyspnea on exertion and Denies wheezing Gastrointestinal: Gastrointestinal: Reports as per HPI, Reports no additional gastrointestinal complaints, Denies abdominal pain, Denies constipation, Denies nausea and Denies vomiting Genitourinary: Genitourinary: Reports no additional male genitourinary complaints Musculoskeletal: Musculoskeletal: Reports back pain, Reports myalgias and Reports arthralgias Integumentary/Breasts: Skin/Breast: Reports system reviewed and no additional complaints, except as docu and Reports as per HPI Neurologic: Reports system reviewed and no additional complaints, except as documented, Reports as per HPI, Reports Normal hearing present and Denies headache(s) Psychiatric: Psychiatric: Reports no additional psychiatric complaints and Reports as per HPI Endocrine: Endocrine: Reports no additional endocrine complaints and Reports fatigue Hematologic/Lymphatic: Hematologic/Lymphatic: Reports no additional hematologic/lymphatic complaints Allergic/Immunologic: Allergic/Immunologic: Reports no additional allergic/immunologic
[2021-03-06 10:29] LABS: Platelet Estimate Adequate (Adequate); Polychromasia 2+ (NORMAL)
[2021-03-06 10:30] LABS: Poikilocytosis 1+ (NORMAL); Schistocytes 1+ (NORMAL); Sickle Cells 1+ (NORMAL); Target Cells 2+ (NORMAL)
[2021-03-06] MEDS: WARFARIN (*PBKC) 2.5 MG TABLET PO (16:58)
[2021-03-06] MEDS: WARFARIN (*PBKC) 10 MG TABLET PO (16:58)
[2021-03-07] MEDS: SODIUM CHLORIDE 0.9% IV 1,000 ML 125 ML IV CONT ×3 (01:30→17:23)
[2021-03-07] MEDS: HYDROmorphone HCL INJ (*CRX) 1 MG/ML SYR 3 MG IV PUSH ×7 (01:30→20:45)
[2021-03-07 03:47] VITALS: BP 117/72; PULSE 80; RESP 16; TEMP 36.4; O2SAT 97
[2021-03-07 06:57] LABS: Basophils Absolute Auto 0.1 K/mm3 (0.0-0.1); Basophils Percent Auto 0.6 % (0.2-1.2); Eosinophils Absolute Auto 0.2 K/mm3 (0-0.3); Eosinophils Percent Auto 1.4 % (0-4.4); Hematocrit 27.1 % (42.0-52.0); Hemoglobin 9.7 g/dL (14.0-18.0); Immature Granulocyte Absolute 0.04 K/mm3 (0.00-0.031); Immature Granulocyte Percent A 0.3 % (0-0.5); Lymphocytes Absolute Auto 4.58 K/mm3 (0.9-3.2); Lymphocytes Percent Auto 39.3 % (18.3-44.2); Mean Corpuscular HGB Conc 35.8 g/dl (32-36); Mean Corpuscular Hemoglobin 32.9 pg (26-34); Mean Corpuscular Volume 91.9 fl (80-100); Mean Platelet Volume 10.9 fl (7.4-10.4); Monocytes Percent Auto 8.1 % (2.6-8.5); Neutrophils Absolute Auto 5.9 K/mm3 (1.3-6.7); Neutrophils Percent Auto 50.3 % (45.5-73.1); Nucleated Red Blood Cells Absolute Auto 0.1 K/mm3 (0.0-0.012); Nucleated Red Blood Cells Perc 0.8 % (0.0-0.2); Platelet Count Result 306 k/mm3 (150-375); Red Blood Count 2.95 M/mm3 (4.6-6.20); Red Cell Distribution Width 14.4 % (11.5-14.5); White Blood Count 11.7 K/mm3 (4.5-10.0)
[2021-03-07 07:10] LABS: Anion Gap 8 mmol/L (8-16); Blood Urea Nitrogen 4 mg/dL (9-20); Calcium 8.9 mg/dL (8.4-10.2); Carbon Dioxide 23 mmol/L (22-30); Chloride 106 mmol/L (98-107); Estimated CRCL calculation 148 ml/min; Estimated Glomerular Filt Rate > 60; Glucose 96 mg/dL (65-110); Potassium 3.5 mmol/L (3.4-5.0); Sodium 137 mmol/L (137-145)
[2021-03-07 07:48] LABS: INR 2.1
--- NOTE | 2021-03-07 07:49 | PM.IMPN ---
Progress Note: A&P Assessment and Plan (1) Hx of pulmonary embolus: Code(s): Z86.711 - Personal history of pulmonary embolism Status: Acute (2) Sickle cell pain crisis: Code(s): D57.00 - Hb-SS disease with crisis, unspecified Status: Acute Assessment and Plan: Patient reports improved pain control.Per Dr. Marks recommendations, the patient was restarted on hydroxyurea, dilaudid 3 mg every 3 hours, benadryl, folic acid . Patient reports improved pain control. He rates his pain at6/10. We will continue IV fluids, IV pain medications. (3) Subtherapeutic international normalized ratio (INR): Code(s): R79.1 - Abnormal coagulation profile Status: Acute (4) Pulmonary embolism: Code(s): I26.99 - Other pulmonary embolism without acute cor pulmonale Status: Chronic Assessment and Plan: Patient was educated about the importance of compliance with Coumadin. He will have daily PT INR. His INR is 2.2 at this point. (5) Acute chest syndrome: Code(s): D57.01 - Hb-SS disease with acute chest syndrome Status: Acute (6) Chronic pain syndrome: Code(s): G89.4 - Chronic pain syndrome Status: Chronic Assessment and Plan: Sickle cell painful crisis. Continue with home medication; the patient is on methadone oxycodone-acetaminophen 10-325 mg BID PRN. Subjective Date/time seen: 03/07/21 07:49 S: Patient is examined at the bedside. He reports improving management. He is requesting pain medication. Dilaudid 4 mg p.o. was ordered prior to discharge. Review of Systems Review of Systems: All systems reviewed & are unremarkable except as noted in HPI and below Constitutional: Constitutional: Reports as per HPI, Reports no additional constitutional complaints, Reports body ache(s), Reports fatigue, Denies headache(s), Reports lethargy and Reports malaise Eyes: Eyes: Reports as per HPI, Reports no additional eye complaints, Denies blurry vision and Reports other ENT: Reports system reviewed and no additional complaints, except as documented, Reports Normal hearing present, Denies headache(s), Denies epistaxis and Denies nasal congestion Cardiovascular: Cardiovascular: Reports as per HPI, Reports no additional cardiovascular complaints, Denies pedal edema, Denies edema, Denies irregular heart rhythm, Denies leg edema, Denies dyspnea and Denies dyspnea on exertion Respiratory: Respiratory: Reports as per HPI, Reports no additional respiratory complaints, Reports no additional respiratory complaints, Denies cough, Denies pain with cough, Denies dyspnea, Denies dyspnea on exertion and Denies wheezing Gastrointestinal: Gastrointestinal: Reports as per HPI, Reports no additional gastrointestinal complaints, Denies abdominal pain, Denies constipation, Denies nausea and Denies vomiting Genitourinary: Genitourinary: Reports no additional male genitourinary complaints Musculoskeletal: Musculoskeletal: Reports back pain, Reports myalgias and Reports arthralgias Integumentary/Breasts: Skin/Breast: Reports system reviewed and no additional complaints, except as docu and Reports as per HPI Neurologic: Reports system reviewed and no additional complaints, except as documented, Reports as per HPI, Reports Normal hearing present and Denies headache(s) Psychiatric: Psychiatric: Reports no additional psychiatric complaints and Reports as per HPI Endocrine: Endocrine: Reports no additional endocrine complaints and Reports fatigue Hematologic/Lymphatic: Hematologic/Lymphatic: Reports no additional hematologic/lymphatic complaints Allergic/Immunologic: Allergic/Immunologic: Reports no additional allergic/immunologic complaints and Denies wheezing Exam Const: General: cooperative, healthy appearing, comfortable, no acute distress, well developed, alert, awake and Physically active Nutritional Appearance: average body habitus and well nourished Orientation/consciousness: orient
[2021-03-07] MEDS: FOLIC ACID 1 MG TABLET PO (08:08)
[2021-03-07] MEDS: HYDROXYUREA (*CHEMO) 500 MG CAPSULE PO (08:08)
[2021-03-07] MEDS: ENOXAPARIN 100 MG/ML SYRINGE 90 MG SUB-Q ×2 (08:08→20:43)
[2021-03-07 10:19] LABS: Immature Reticulocyte Fraction 44.2 % (3.0-15.9); Reticulocyte Hemoglobin Conten 35.8 pg (28.2-35.7); Reticulocyte Percent 7.03 % (0.7-4.3); Reticulocytes Absolute 0.21 B/L (32.2-175.7)
[2021-03-07 10:50] VITALS: BP 125/76; PULSE 79; RESP 16; TEMP 36.2; O2SAT 100
[2021-03-07 14:20] VITALS: BP 116/73; PULSE 91; RESP 16; TEMP 36.8; O2SAT 100
[2021-03-07] MEDS: WARFARIN (*PBKC) 10 MG TABLET PO (16:37)
[2021-03-07] MEDS: WARFARIN (*PBKC) 2.5 MG TABLET PO (16:37)
[2021-03-07 18:30] VITALS: BP 117/78; PULSE 87; RESP 16; TEMP 36.9; O2SAT 98
[2021-03-07 21:47] VITALS: BP 119/75; PULSE 79; RESP 16; TEMP 36.4; O2SAT 99
[2021-03-07 23:52] VITALS: O2SAT 94
[2021-03-08] VITALS: BP 127/77; PULSE 90; RESP 14; TEMP 36.8; O2SAT 94
[2021-03-08] MEDS: HYDROmorphone HCL INJ (*CRX) 1 MG/ML SYR 3 MG IV PUSH ×2 (00:17→04:04)
[2021-03-08] MEDS: SODIUM CHLORIDE 0.9% IV 1,000 ML 125 ML IV CONT (00:17)
[2021-03-08 05:14] VITALS: BP 116/67; PULSE 72; RESP 16; TEMP 36.8; O2SAT 95
[2021-03-08 05:47] LABS: Basophils Absolute Auto 0.1 K/mm3 (0.0-0.1); Basophils Percent Auto 0.6 % (0.2-1.2); Eosinophils Absolute Auto 0.1 K/mm3 (0-0.3); Eosinophils Percent Auto 1.3 % (0-4.4); Hematocrit 27.7 % (42.0-52.0); Immature Granulocyte Absolute 0.04 K/mm3 (0.00-0.031); Immature Granulocyte Percent A 0.4 % (0-0.5); Immature Platelet Fraction Pct 4.8 % (0.9-11.2); Immature Reticulocyte Fraction 45.8 % (3.0-15.9); Lymphocytes Absolute Auto 4.58 K/mm3 (0.9-3.2); Lymphocytes Percent Auto 42.4 % (18.3-44.2); Mean Corpuscular HGB Conc 36.1 g/dl (32-36); Mean Corpuscular Hemoglobin 33.3 pg (26-34); Mean Corpuscular Volume 92.3 fl (80-100); Mean Platelet Volume 10.4 fl (7.4-10.4); Monocytes Absolute Auto 0.9 K/mm3 (0.1-0.6); Monocytes Percent Auto 8.6 % (2.6-8.5); Neutrophils Percent Auto 46.7 % (45.5-73.1); Nucleated Red Blood Cells Absolute Auto 0.1 K/mm3 (0.0-0.012); Nucleated Red Blood Cells Perc 0.6 % (0.0-0.2); Platelet Count Result 345 k/mm3 (150-375); Red Cell Distribution Width 14.6 % (11.5-14.5); Reticulocyte Hemoglobin Conten 37.4 pg (28.2-35.7); Reticulocyte Percent 8.27 % (0.7-4.3); Reticulocytes Absolute 0.25 B/L (32.2-175.7); White Blood Count 10.8 K/mm3 (4.5-10.0)
[2021-03-08 05:54] LABS: INR 2.2; Prothrombin Time 24.2 Seconds (11.1-14.7)
[2021-03-08 05:58] LABS: Anion Gap 9 mmol/L (8-16); Blood Urea Nitrogen 4 mg/dL (9-20); Calcium 9.1 mg/dL (8.4-10.2); Carbon Dioxide 24 mmol/L (22-30); Chloride 109 mmol/L (98-107); Estimated CRCL calculation 148 ml/min; Estimated Glomerular Filt Rate > 60; Glucose 104 mg/dL (65-110); Potassium 3.5 mmol/L (3.4-5.0); Sodium 142 mmol/L (137-145)
[2021-03-08 07:25] LABS: Anisocytosis 1+ (NORMAL); Macrocytosis 1+ (NORMAL); Platelet Estimate Adequate (Adequate); Sickle Cells 1+ (NORMAL); Target Cells 1+ (NORMAL)
--- NOTE | 2021-03-08 08:18 | PM.DS ---
DS: Admitting Diagnosis Discharge Date 03/08/2021 Admitting Diagnosis sickle cell painful crisis. DS: Discharge Diagnosis Discharge Diagnosis (1) Sickle cell pain crisis: Code(s): D57.00 - Hb-SS disease with crisis, unspecified Status: Acute Assessment and Plan: Patient remains symptomatic with of sickle cell painful crisis, slowly improving.Per Dr. Marks recommendations, the patient was restarted on hydroxyurea, dilaudid 3 mg every 3 hours, benadryl, folic acid . Patient reports improved pain control. However he still rates his pain at 8/10. We will continue IV fluids, IV pain medications. (2) Subtherapeutic international normalized ratio (INR): Code(s): R79.1 - Abnormal coagulation profile Status: Acute (3) Pulmonary embolism: Code(s): I26.99 - Other pulmonary embolism without acute cor pulmonale Status: Chronic Assessment and Plan: Patient was educated about the importance of compliance with Coumadin. He will have daily PT INR. His INR is 1.8 at this point. (4) Acute chest syndrome: Code(s): D57.01 - Hb-SS disease with acute chest syndrome Status: Acute (5) Chronic pain syndrome: Code(s): G89.4 - Chronic pain syndrome Status: Chronic Assessment and Plan: Sickle cell painful crisis. Continue with home medication; the patient is on methadone DS: Summary Hospital Course Reason for hospitalization: sickle cell crisis. Hospital Course: Please refer to admission H& P. Briefly, this is a 35-year-old female patient who has a history of sickle cell anemia who has had recurrent sickle cell crisis. He does see Dr. Marks every 6 months. The patient also has a history of having a pulmonary embolism and is on warfarin. The patient is unable to be on Pradaxa or Xarelto due to insurance reasons. The patient is frequently subtherapeutic on his Coumadin. The patient has generalized discomfort. But the patient states that he has more discomfort in his chest and his knees. He does have some pain in his hands. The patient is on methadone and has been taking his routine medications. He stated that he has been drinking water without difficulty and he feels that maybe the change in the weather has caused him more discomfort. His white count is noted to be 15.7 with a H&H of 11.1 and 30.6. Platelet count 396. Dr. Marks has been consulted. He has made recommendations for pain management. Patient was started on IV hydration and Dilaudid. The patient was started on therapeutic Lovenox because his INR is 1.1. The patient was admitted to observation status on 03/03/2021. He was treated with IV fluids and pain management. His hospital stay was uneventful. He was discharged on his home medications. Time Spent with Patient Time attestation: Total time spent providing and/or coordinating discharge services: Exam Const: General: cooperative, healthy appearing, comfortable, no acute distress, well developed, alert, awake and Physically active Nutritional Appearance: average body habitus and well nourished Orientation/consciousness: oriented to person, oriented to place, oriented to time and patient oriented x3 Limitations: no limitations HENMT: Head: normal to inspection, No palpable skull fracture present, normocephalic and atraumatic Ears: hearing grossly normal bilaterally General nose exam: Normal external nose present Eyes: General: appearance normal, both eyes and all related structures Alignment and Position: alignment normal Periorbital: periorbital findings normal Eyelids: eyelids normal Sclera: sclerae normal Pupils: Equal, round and reactive pupils present EOM: EOMs intact bilaterally Neck: Neck: normal visual inspection Chest: Chest palpation & inspection: normal inspection of the chest Resp: Effort & Inspection: normal respiratory effort Auscultation: clear to auscultation bilaterally Percussion: percussion normal Cardio: Palpation:
== END 2021-03-08 08:25 | disposition home or self-care (01) | DRG 662 ==
LOC: ANHED 13:27 → ANH2MED 15:25
PROVIDERS: Nurse Practitioner; Admitting Provider Internal Medicine; Emergency Provider Emergency Medicine; PCP Internal Medicine Hematology & Oncology; Visit Provider Internal Medicine
DX: D57.01 Hb-SS disease with acute chest syndrome (principal); G89.4 Chronic pain syndrome; R79.1 Abnormal coagulation profile; Z79.01 Long term (current) use of anticoagulants; Z79.891 Long term (current) use of opiate analgesic; Z86.711 Personal history of pulmonary embolism; Z86.718 Personal history of other venous thrombosis and embolism
CPT/HCPCS: 36415; 71046; 80048; 80053; 82728; 83605; 83615; 83690; 83735; 84443; 85025; 85046; 85055; 85610; 85730; 96361; 96365; 96372; 96374; 96375; 96376; 99285; A9270; G0378; G0379; J0131; J1170; J1650; J2405; J7030

== ENCOUNTER 2021-08-19 08:47 | Observation (INO) | payer OTHER, SELFPAY ==
--- NOTE | ~2021-08-19 | XR_ITS ---
EXAMINATION: XR chest 2V DATE: 08/19/2021 10:03 INDICATION: Sickle cell crisis TECHNIQUE: AP and lateral views of the chest are obtained. COMPARISON: 03/03/2021 FINDINGS: The lungs are free of acute opacities. Again seen is chronic scarring of the lung bases. Th ere is no pleural effusion or pneumothorax. The cardiomediastinal silhouette is normal. IMPRESSION: 1. No acute cardiopulmonary abnormality. Reviewed, dictated and finalized at location A.
--- NOTE | 2021-08-19 09:31 | ED.GENADULT ---
HPI - General Adult General Chief complaint: Unspecified <Leti Soto PA-C - Last Filed: 08/19/21 20:01> Stated complaint: Sickle cell pain <Leti Soto PA-C - Last Filed: 08/19/21 20:01> Time Seen by Provider: 08/19/21 09:07 <Leti Soto PA-C - Last Filed: 08/19/21 20:01> Source: patient <ZAINAB Chacko Last Filed: 08/19/21 20:01> Mode of arrival: ambulatory <ZAINAB Chacko Last Filed: 08/19/21 20:01> Limitations: no limitations <ZAINAB Chacko Last Filed: 08/19/21 20:01> History of Present Illness HPI narrative: Patient is a 36-year-old male who presents to the ED with report of sickle cell pain crisis. Patient does have a history of sickle cell disease. He sees Dr. Marks every 6 months and saw him about 3 months ago. Patient takes hydroxyurea, folic acid, methadone, Percocet at home. He states he has been taking his pain medicine as prescribed but has had increasing pain over the last 3 days in his bilateral upper extremities, bilateral lower extremities, diffuse mid and lower back, and ribs. He does state this is pretty typical for his pain crises. Does note he has been increasingly stressed lately. Denies any recent fall or injury. He states his last crisis was in February when he was admitted to the hospital here. Per chart review, patient was placed on Dilaudid 3 mg every 3 hours and was admitted for several days. He did report having mild chest pain yesterday but denies any pain today. Denies any difficulty breathing, nausea, vomiting, fever, chills, urinary symptoms, recent cough or cold symptoms. Patient is also on warfarin due to history of pulmonary embolisms. He states he has been taking this as prescribed. <Leti Soto PA-C - Last Filed: 08/19/21 20:01> Related Data Home medications: Home Medications Medication Instructions Recorded Confirmed folic acid 1 mg PO DAILY 02/16/19 08/19/21 hydroxyurea 500 mg PO DAILY 08/22/20 08/19/21 methadone 10 mg PO TID 08/22/20 08/19/21 oxycodone-acetaminophen 1 tablet PO BID PRN 08/22/20 08/19/21 warfarin 2 mg PO DAILY 08/22/20 08/19/21 warfarin 10 mg PO DAILY 08/22/20 08/19/21 <Ltei Soto PA-C - Last Filed: 08/19/21 20:01> Allergies/adverse reactions: Allergies Allergy/AdvReac Type Severity Reaction Status Date / Time Fish Containing Products Allergy Intermediate Itching Verified 08/19/21 09:03 <Leti Soto PA-C - Last Filed: 08/19/21 20:01> Review of Systems Review of Systems: CONSTITUTIONAL: Denies fever, chills. ENT: Denies rhinorrhea, congestion, sore throat. CARDIOVASCULAR: Reports chest pain, resolved. RESPIRATORY: Denies cough or dyspnea. GASTROINTESTINAL: Denies abdominal pain, nausea, vomiting, or diarrhea. GENITOURINARY: Denies dysuria or hematuria. MUSCULOSKELETAL: Reports pain to BUE, BLE, diffuse mid and lower back, ribs bilaterally. NEUROLOGIC: Denies headache, numbness, or weakness. <Leti Soto PA-C - Last Filed: 08/19/21 20:01> All systems reviewed & are unremarkable except as noted in HPI and below <Leti Soto PA-C - Last Filed: 08/19/21 20:01> PMFSH Past Medical History Medical History: Medical History Acute chest syndrome Chronic anticoagulation Due to history of DVT and pulmonary embolism. Chronic narcotic use On methadone with oxycodone for chronic pain related to his sickle cell disease. Deep venous thrombosis Noncompliance History of noncompliance with anticoagulation and hydroxyurea. Pulmonary embolism Sickle cell disease, type SC <Leti Soto PA-C - Last Filed: 08/19/21 20:01> Surgical History Surgical History: Surgical History History of hand surgery Tendon surgery on right 5th finger. <Leti Soto PA-C - Last Filed: 08/19/21 20:01> Family History Family History: Family Hist
--- NOTE | 2021-08-19 09:32 | ECG_ITS ---
Measurements Intervals Plessis Rate: 86 P: 18 OK: 165 QRS: -3 QRSD: 92 T: -1 QT: 358 QTc: 430 Interpretive Statements SINUS RHYTHM NONSPECIFIC T-WAVE ABNORMALITY- ANT/INF LEADS BASELINE ARTIFACT- I, II, AVR, AVL, AVF BORDERLINE ECG Electronically Signed On 08-19-2021 12:36:34 CDT by Ricky Modi D.O.
[2021-08-19] MEDS: HYDROmorphone HCL INJ (*CRX) 1 MG/ML SYR IV PUSH ×6 (09:52→22:04)
[2021-08-19 09:55] LABS: Basophils Absolute Auto 0.1 K/mm3 (0.0-0.1); Basophils Percent Auto 0.6 % (0.2-1.2); Eosinophils Absolute Auto 0.3 K/mm3 (0-0.3); Eosinophils Percent Auto 2.7 % (0-4.4); Hematocrit 32.7 % (42.0-52.0); Hemoglobin 11.6 g/dL (14.0-18.0); Immature Granulocyte Absolute 0.03 K/mm3 (0.00-0.031); Immature Granulocyte Percent A 0.3 % (0-0.5); Immature Platelet Fraction Pct 3.8 % (0.9-11.2); Immature Reticulocyte Fraction 37.2 % (3.0-15.9); Lymphocytes Absolute Auto 3.14 K/mm3 (0.9-3.2); Lymphocytes Percent Auto 33.7 % (18.3-44.2); Mean Corpuscular HGB Conc 35.5 g/dl (32-36); Mean Corpuscular Hemoglobin 31.9 pg (26-34); Mean Corpuscular Volume 89.8 fl (80-100); Mean Platelet Volume 9.8 fl (7.4-10.4); Monocytes Absolute Auto 0.8 K/mm3 (0.1-0.6); Monocytes Percent Auto 8.3 % (2.6-8.5); Neutrophils Absolute Auto 5.1 K/mm3 (1.3-6.7); Neutrophils Percent Auto 54.4 % (45.5-73.1); Nucleated Red Blood Cells Perc 0.4 % (0.0-0.2); Platelet Count Result 420 k/mm3 (150-375); Red Blood Count 3.64 M/mm3 (4.6-6.20); Red Cell Distribution Width 13.4 % (11.5-14.5); Reticulocyte Hemoglobin Conten 33.5 pg (28.2-35.7); Reticulocyte Percent 5.43 % (0.7-4.3); White Blood Count 9.3 K/mm3 (4.5-10.0)
[2021-08-19 10:04] LABS: Alanine Aminotransferase 33 U/L (4-50); Albumin Level 4.9 g/dL (3.5-5.1); Alkaline Phosphatase 83 U/L (38-126); Anion Gap 10 mmol/L (8-16); Aspartate Amino Transferase 53 U/L (17-59); Bilirubin,Total 1.1 mg/dL (0.2-1.3); Blood Urea Nitrogen 9 mg/dL (9-20); Calcium 8.7 mg/dL (8.4-10.2); Carbon Dioxide 25 mmol/L (22-30); Chloride 106 mmol/L (98-107); Estimated CRCL calculation 146 ml/min; Estimated Glomerular Filt Rate > 60; Glucose 123 mg/dL (65-110); Potassium 3.9 mmol/L (3.4-5.0); Sodium 141 mmol/L (137-145)
[2021-08-19 10:07] LABS: INR 1.7; Partial Thromboplastin Time 31.6 SECONDS (22.3-36.8); Prothrombin Time 19.2 Seconds (11.1-14.7)
[2021-08-19 10:24] LABS: Platelet Estimate Increased (Adequate); Sickle Cells 1+ (NORMAL); Target Cells 2+ (NORMAL)
[2021-08-19] MEDS: SODIUM CHLORIDE 0.9% IV 1,000 ML 999 ML IV CONT (12:19)
[2021-08-19 12:20] LABS: Lactate Dehydrogenase 716 U/L (313-618)
[2021-08-19 13:58] VITALS: BP 114/83; PULSE 79; RESP 18; O2SAT 97
--- NOTE | 2021-08-19 14:40 | PM.IMHP ---
H&P: HPI History of Present Illness Date/Time: 08/19/21 14:40 Chief Complaint: Pain all over. 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 He has daily pain related to his sickle cell for which he takes methadone. The last 3 days he has had increasing pain from baseline despite taking Percocet for breakthrough pain. He is having pain in his arms, legs, back, and ribs which is pretty typical for his pain crises. He reports increasing stress lately but denies recent illness. He states compliance with his medication. At this time he is resting comfortably on his current regimen. He reports chills but no fever or sweats. No recent cold or flu symptoms. No chest or pleuritic pain. No shortness of breath. No nausea, vomiting, or diarrhea. Review of Systems Review of Systems: Twelve systems were reviewed and are negative except for as per HPI. [facility] Past Medical History Medical History Acute chest syndrome Chronic anticoagulation Due to history of DVT and pulmonary embolism. Chronic narcotic use On methadone with oxycodone for chronic pain related to his sickle cell disease. Deep venous thrombosis Noncompliance History of noncompliance with anticoagulation and hydroxyurea. Pulmonary embolism Sickle cell disease, type SC Surgical History Surgical History History of hand surgery Tendon surgery on right 5th finger. Family History Family History Grandparent Diabetes mellitus Acute myocardial infarction Sibling Asthma Sibling Asthma Mother Hypertension Sickle cell trait Son Sickle cell trait Daughter Sickle cell trait Grandparent No problems noted. Other Diabetes mellitus Father Sickle cell trait Social History Social History (Updated 08/19/21 @ 23:59 by Kimberlee Santamaria PA-C) Social History: The patient lives in [place] with his family. He is on disability due to sickle cell disease and chronic pain. He designates his friend, Keyla Luther, as his surrogate decision maker and he wishes to be a full code. He is a lifelong nonsmoker and denies alcohol and drug use. The patient has 2 children who have the sickle cell trait. Spiritual care concerns: No Agree to blood products: Yes Meds Home Medications and Allergies Home Medications Medication Instructions Recorded Confirmed Type folic acid 1 mg PO DAILY 02/16/19 08/19/21 History hydroxyurea 500 mg PO DAILY 08/22/20 08/19/21 History methadone 10 mg PO TID 08/22/20 08/19/21 History oxycodone-acetaminophen 1 tablet PO BID PRN 08/22/20 08/19/21 History warfarin 2 mg PO DAILY 08/22/20 08/19/21 History warfarin 10 mg PO DAILY 08/22/20 08/19/21 History Allergies Allergy/AdvReac Type Severity Reaction Status Date / Time Fish Containing Products Allergy Intermediate Itching Verified 08/19/21 09:03 Vital Signs Vital Signs - 24 hr 08/19/21 13:58 Pulse Rate 79 Respiratory Rate 18 Blood Pressure 114/83 Pulse Oximetry 97 Exam Narrative: General: Well-developed male sitting up in bed. Appears to be in moderate pain. Weight: 100 kg. HEENT: PERRL, EOMI. Sclerae anicteric. Oral mucosa moist. Oropharynx clear. Neck: Supple. Respiratory: Lungs are clear to auscultation bilaterally. Cardiovascular: Regular rate and rhythm with S1-S2. No murmur, rub, or gallop. Gastrointestinal: Abdomen is soft, nontender, and nondistended with positive bowel sounds. Skin: Warm and dry. No rash or lesions on limited exam. Extremities: No cyanosis, clubbing, or edema. Radial and pedal pulses intact. Neurological: Alert. Cranial nerves 2-12 are
--- NOTE | 2021-08-19 15:07 | ADMGEN ---
This patient, Quan Downing, was admitted to Medical Room 341-01. Patient/family oriented to hospital policies and general routines including ID bracelet, bed and alarms, visiting hours, pain management, procedures, bathroom and other care routines, personal items, smoking policy, room service/diet, and visiting hours. Information on how to activate the Rapid Response Team has been discussed. Patient/Family are encouraged to report perceived risks to care and to ask questions if they do not understand what they are told or what they should do.
[2021-08-19 15:10] VITALS: BP 112/70; PULSE 75; RESP 16; TEMP 36.7; O2SAT 97
[2021-08-19] MEDS: LACTATED RINGERS 1,000 ML 150 ML IV CONT ×2 (15:57→22:04)
[2021-08-19 19:26] VITALS: BP 103/58; PULSE 78; RESP 18; TEMP 36.6; O2SAT 97
[2021-08-20] MEDS: WARFARIN (*PBKC) 10 MG TABLET PO ×2 (00:04→17:12)
[2021-08-20] MEDS: WARFARIN (*PBKC) 2 MG TABLET PO ×2 (00:06→17:12)
[2021-08-20] MEDS: HYDROmorphone HCL INJ (*CRX) 1 MG/ML SYR IV PUSH (01:05)
[2021-08-20] MEDS: HYDROmorphone HCL INJ (*CRX) 1 MG/ML SYR 3 MG IV PUSH ×5 (04:16→17:13)
[2021-08-20 04:19] VITALS: BP 120/73; PULSE 85; RESP 16; TEMP 36.6; O2SAT 98
[2021-08-20 07:10] LABS: Hematocrit 30.2 % (42.0-52.0); Hemoglobin 10.5 g/dL (14.0-18.0); Mean Corpuscular HGB Conc 34.8 g/dl (32-36); Mean Corpuscular Hemoglobin 31.2 pg (26-34); Mean Corpuscular Volume 89.6 fl (80-100); Mean Platelet Volume 9.8 fl (7.4-10.4); Platelet Count Result 361 k/mm3 (150-375); Red Blood Count 3.37 M/mm3 (4.6-6.20); Red Cell Distribution Width 13.4 % (11.5-14.5); White Blood Count 10.2 K/mm3 (4.5-10.0)
[2021-08-20 07:22] LABS: Anion Gap 6 mmol/L (8-16); Blood Urea Nitrogen 6 mg/dL (9-20); Calcium 8.4 mg/dL (8.4-10.2); Carbon Dioxide 25 mmol/L (22-30); Chloride 109 mmol/L (98-107); Estimated CRCL calculation 146 ml/min; Estimated Glomerular Filt Rate > 60; Glucose 103 mg/dL (65-110); Lactate Dehydrogenase 543 U/L (313-618); Magnesium 2.2 mg/dL (1.6-2.3); Potassium 4.4 mmol/L (3.4-5.0); Sodium 140 mmol/L (137-145)
[2021-08-20] MEDS: LACTATED RINGERS 1,000 ML 150 ML IV CONT ×3 (07:39→20:27)
--- NOTE | 2021-08-20 08:48 | PM.IMPN ---
Progress Note: A&P Assessment and Plan (1) Sickle cell pain crisis: Code(s): D57.00 - Hb-SS disease with crisis, unspecified Status: Acute Assessment and Plan: Chronic pain over the last 3 days related to sickle cell pain crisis new line patient takes methadone and oxycodone for breakthrough pain Labs were reviewed in the demonstrated a stable hemoglobin of 11.6 and mild elevation of the LDH and reticulocytes. Patient was admitted for IV pain management and fluid resuscitation Continue folic acid 1 mg daily and hydroxyurea 500 mg daily (2) Sickle cell disease, type SC: Qualifiers: Sickle-cell associated disorders: without crisis Qualified Code(s): D57.20 - Sickle-cell/Hb-C disease without crisis Code(s): D57.20 - Sickle-cell/Hb-C disease without crisis Status: Chronic Assessment and Plan: Two/to above (3) Subtherapeutic international normalized ratio (INR): Code(s): R79.1 - Abnormal coagulation profile Status: Acute Assessment and Plan: INR is subtherapeutic at 1.7, increase dose of warfarin today, repeat INR in the morning Subjective Date/time seen: 08/20/21 08:48 Patient was evaluated this morning at bedside. He denies any acute complaints. Pain has mildly improved. Will continue to stay for an additional day for IV narcotics for breakthrough pain and treat a therapeutic INR. Increase Coumadin today. No acute events reported by RN during the night Review of Systems Review of Systems: All systems reviewed & are unremarkable except as noted in HPI and below Exam Narrative: General: Well-developed male sitting up in bed. Appears to be in moderate pain. Weight: 100 kg. HEENT: PERRL, EOMI. Sclerae anicteric. Oral mucosa moist. Oropharynx clear. Neck: Supple. Respiratory: Lungs are clear to auscultation bilaterally. Cardiovascular: Regular rate and rhythm with S1-S2. No murmur, rub, or gallop. Gastrointestinal: Abdomen is soft, nontender, and nondistended with positive bowel sounds. Skin: Warm and dry. No rash or lesions on limited exam. Extremities: No cyanosis, clubbing, or edema. Radial and pedal pulses intact. Neurological: Alert. Cranial nerves 2-12 are grossly intact. No gross focal deficits to casual conversation. Psychiatric: Pleasant and cooperative with normal mood and affect. Objective Data Vital Signs Vital Signs: Vital Signs - 24 hr 08/19/21 13:58 08/19/21 15:10 08/19/21 19:26 Temperature 98.1 F 97.9 F Pulse Rate 79 75 78 Respiratory Rate 18 16 18 Blood Pressure 114/83 112/70 103/58 L Pulse Oximetry 97 97 97 08/20/21 04:19 Temperature 98 F Pulse Rate 85 Respiratory Rate 16 Blood Pressure 120/73 Pulse Oximetry 98 Intake/Output Intake/Output: Intake & Output 08/17/21 08/18/21 08/19/21 08/20/21 23:59 23:59 23:59 23:59 Intake Total 2580 1450 Output Total 550 600 Balance 2030 850 Meds/Results Medications: Active Medications Generic Name Dose Route Start Last Admin Trade Name Freq PRN Reason Stop Dose Admin Folic Acid 1 mg 08/20/21 09:00 Folic Acid 1 Mg Tablet PO DAILY [facility] Hydromorphone HCl 3 mg 08/20/21 01:24 08/20/21 07:36 Hydromorphone Hcl Inj (*Crx) 1 Mg/Ml Syr IV PUSH 3 mg Q3H PRN Administration Pain Rated 7-10 Hydroxyurea 500 mg 08/20/21 09:00 Hydroxyurea (*Chemo) 500 Mg Capsule PO DAILY [facility] Lactated Ringer's 1,000 mls @ 150 mls/hr 08/19/21 15:00 08/20/21 07:39 Lr - Lactated Ringers Iv IV CONT 150 mls/hr .[id number] CHRISTOPHER Administration Methadone HCl 10 mg 08/20/21 09:00 Methadone Hcl (*Crx) 10 Mg Tablet PO TID [facility] Ondansetron HCl 4 mg 08/19/21 15:06 Ondansetron Inj 4 Mg/2 Ml Vial IV PUSH Q6H PRN Nausea And Vomiting Warfarin Sodium 2 mg 08/19/21 22:45 08/20/21 00:06 Warfarin (*Pbkc) 2 Mg Tablet PO 2 mg DAILY@1700 CHRISTOPHER Administration Warfarin Sodium 10 mg 08/19/21 22:45 08/20/21 00:04 War
[2021-08-20] MEDS: FOLIC ACID 1 MG TABLET PO (09:59)
[2021-08-20] MEDS: methADONE HCL (*CRX) 10 MG TABLET PO ×3 (10:02→17:12)
[2021-08-20] MEDS: HYDROXYUREA (*CHEMO) 500 MG CAPSULE PO (11:00)
[2021-08-20 14:00] VITALS: BP 113/70; PULSE 83; RESP 16; TEMP 36.8; O2SAT 97
[2021-08-20] MEDS: HYDROmorphone HCL INJ (*CRX) 2 MG/ML VIAL 3 MG IV PUSH ×2 (20:27→23:34)
[2021-08-20 22:00] VITALS: BP 122/72; PULSE 95; RESP 16; TEMP 36.2; O2SAT 95
[2021-08-21] MEDS: HYDROmorphone HCL INJ (*CRX) 2 MG/ML VIAL 3 MG IV PUSH ×2 (02:36→05:41)
[2021-08-21] MEDS: LACTATED RINGERS 1,000 ML 150 ML IV CONT (03:06)
[2021-08-21 06:00] VITALS: BP 129/84; PULSE 98; RESP 20; TEMP 36.7; O2SAT 95
[2021-08-21 08:45] LABS: Prothrombin Time 29.9 Seconds (11.1-14.7)
[2021-08-21] MEDS: methADONE HCL (*CRX) 10 MG TABLET PO ×2 (08:57→12:52)
[2021-08-21] MEDS: HYDROXYUREA (*CHEMO) 500 MG CAPSULE PO (08:57)
[2021-08-21] MEDS: FOLIC ACID 1 MG TABLET PO (08:58)
[2021-08-21 09:05] LABS: Immature Reticulocyte Fraction 26.4 % (3.0-15.9); Reticulocyte Hemoglobin Conten 32.1 pg (28.2-35.7); Reticulocyte Percent 4.64 % (0.7-4.3); Reticulocytes Absolute 0.15 B/L (32.2-175.7)
[2021-08-21] MEDS: oxyCODONE/ACETAMINOPHEN (*CRX) 5-325 MG TABLET 1 TABLET PO (09:29)
[2021-08-21] MEDS: oxyCODONE HCL (*CRX) 5 MG TAB IR PO (09:29)
--- NOTE | 2021-08-21 12:48 | PDONCCN ---
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 Patient also has history of pulmonary embolism and has been on long-term anticoagulation therapy with warfarin. He is also taking hydroxyurea as well as methadone twice a day and hydrocodone for his pain control at home. Patient was last admitted to the hospital with sickle cell crisis in February of 2021. Patient now came into the hospital with complain of right leg and lower back pain for couple of days duration. Denies any fevers and chills. He denies any sore throat. Denies any other signs of infection. Chest x-ray came back unremarkable. Labs showed elevated LDH count of 716 with elevated reticulocyte count of 5.43. He was admitted to the hospital for IV hydration and pain management. Review of Systems - Review of Systems All systems reviewed & are unremarkable except as noted in HPI and [facility] Medical History: Medical History (Last Reviewed 08/19/21 @ 23:59 by Kimberlee Santamaria PA-C) Acute chest syndrome Chronic anticoagulation Due to history of DVT and pulmonary embolism. Chronic narcotic use On methadone with oxycodone for chronic pain related to his sickle cell disease. Deep venous thrombosis Noncompliance History of noncompliance with anticoagulation and hydroxyurea. Pulmonary embolism Sickle cell disease, type SC Surgical History: Surgical History (Last Reviewed 08/19/21 @ 23:59 by Kimberlee Santamaria PA-C) History of hand surgery Tendon surgery on right 5th finger. Family History: Family History (Last Reviewed 08/19/21 @ 23:59 by Kimberlee Santamaria PA-C) Grandparent Diabetes mellitus Acute myocardial infarction Sibling Asthma Sibling Asthma Mother Hypertension Sickle cell trait Son Sickle cell trait Daughter Sickle cell trait Grandparent No problems noted. Other Diabetes mellitus Father Sickle cell trait - Social History Social History: Social History (Last Updated 08/19/21 @ 23:59 by Kimberlee Santamaria PA-C) Others: Spiritual care concerns: No Agree to blood products: Yes Meds Home Medications Medication Instructions Recorded Confirmed Type folic acid 1 mg PO DAILY 02/16/19 08/19/21 History hydroxyurea 500 mg PO DAILY 08/22/20 08/19/21 History methadone 10 mg PO TID 08/22/20 08/19/21 History oxycodone-acetaminophen 1 tablet PO BID PRN 08/22/20 08/19/21 History warfarin 2 mg PO DAILY 08/22/20 08/19/21 History warfarin 10 mg PO DAILY 08/22/20 08/19/21 History Allergies Allergy/AdvReac Type Severity Reaction Status Date / Time Fish Containing Products Allergy Intermediate Itching Verified 08/19/21 09:03 Results - Labs CBC & Chem 7: 08/20/21 06:53 08/20/21 06:53 Assessment and Plan - Additional Plan Sickle cell crisis. Patient has a history of hemoglobin SC disease. Patient now came into the hospital with typical symptoms of sickle cell crisis with right hip and leg pain. He denies any fevers and chills and any other signs of infection. Chest x-ray was unremarkable. He initial labs showed elevated reticulocyte count with LDH consistent with sickle cell crisis. He is feeling better with improvement in pain after IV hydration and IV pain management. He is almost ready to go home today. We will give another dose of Dilaudid prior to discharge as patient reticulocyte count remains slightly elevated. I recommended hydration at home as well as continuation of folic acid and hydroxyurea 500 mg twice a day. Recurrent PE. He will continue warfarin as previously ordered. Exam - Vital Signs Vital Signs - 24 hr 08/20/21 14:00 08/20/21 22:00 08/21/21 06:00 Temperature 36.8 C 36
--- NOTE | 2021-08-21 12:50 | PM.DS ---
DS: Admitting Diagnosis Discharge Date 08/21/2021 Admitting Diagnosis Sickle cell pain crisis DS: Discharge Diagnosis Discharge Diagnosis (1) Sickle cell pain crisis: Code(s): D57.00 - Hb-SS disease with crisis, unspecified Status: Acute Assessment and Plan: Chronic pain over the last 3 days related to sickle cell pain crisis new line patient takes methadone and oxycodone for breakthrough pain Labs were reviewed in the demonstrated a stable hemoglobin of 11.6 and mild elevation of the LDH and reticulocytes. Patient was admitted for IV pain management and fluid resuscitation Continue folic acid 1 mg daily and hydroxyurea 500 mg daily Patient appears to have drug-seeking behavior. Patient was resting comfortably in bed laughing smiling at his phone while I was having a conversation with him. The patient reported he is in significant amount of pain and started rubbing his legs and ask for IV narcotics. I informed the patient that his lab work appeared to be improved on that we were going to try him on his home medications. Patient reported that he might as well leave. Patient then requested to have an early discharge and to leave and 10 minutes. I talked informed him that I was unable to make that occur as it takes significant amount of time to perform paperwork in order to safely get somebody out of the hospital. Later on in the day the patient reported that he wanted more IV narcotics prior to discharge. (2) Sickle cell disease, type SC: Qualifiers: Sickle-cell associated disorders: without crisis Qualified Code(s): D57.20 - Sickle-cell/Hb-C disease without crisis Code(s): D57.20 - Sickle-cell/Hb-C disease without crisis Status: Chronic Assessment and Plan: Two/to above (3) Subtherapeutic international normalized ratio (INR): Code(s): R79.1 - Abnormal coagulation profile Status: Acute Assessment and Plan: INR is subtherapeutic at 1.7, increase dose of warfarin today, repeat INR in the morning --resolved, INR 3.0 DS: Summary Hospital Course Reason for hospitalization: Sickle cell pain crisis Hospital Course: Patient is a 36-year-old male with past medical history is hemoglobin sickle cell disease and recurrent sickle cell crisis, chronic pain syndrome and DVT and PE currently on anticoagulation with Coumadin. He presented to the emergency [facility] by private vehicle due to pain all over. Patient's INR was noted to be 1.7. Patient also takes methadone as well as OxyContin. Patient reports for the last 3 days his pain has been increasing from baseline despite taking his Percocet for breakthrough pain. He has been having pain in his arms, legs, PACs and ribs. Pretty typical pain for his sickle cell crisis. Patient also reports increasing stress lately at home. No recent illnesses. He states he is compliant with his medications. He is resting comfortably reportedly in the emergency department prior to admission. He denied any chills, fever, sweats, cold or flu-like symptoms. No pleuritic chest pain or shortness of breath nausea vomiting upset stomach diarrhea. Patient was started on IV fluids and given additional dose of warfarin 10 mg as well as IV Dilaudid q.3 hours for pain management. Hematology was consulted for further management. Upon arrival to the floor the patient continued to receive IV Dilaudid. Lab work seem to improve and hematology reported on their standpoint the patient is good for discharge. Patient received 1 last dose of Dilaudid prior to discharge due to request. .Patient appears to have drug-seeking behavior. Patient was resting comfortably in bed laughing smiling at his phone while I was having a conversation with him. The patient reported he is in significant amount of pain and started rubbing his legs and ask for IV narcotics. I informed the patient that his lab work appeared to be improved on that we were going to try him on his home m
[2021-08-21] MEDS: HYDROmorphone HCL INJ (*CRX) 1 MG/ML SYR 3 MG IM (12:53)
== END 2021-08-21 13:40 | disposition home or self-care (01) ==
LOC: ANHED 13:07 → ANH3MED 08-21 07:49
PROVIDERS: Physician Assistant; Admitting Provider Hospitalist; Emergency Provider Emergency Medicine; PCP Internal Medicine Hematology & Oncology; Visit Provider Nurse Practitioner Family
DX: D57.00 Hb-SS disease with crisis, unspecified (principal); G89.29 Other chronic pain; R79.1 Abnormal coagulation profile; Z86.711 Personal history of pulmonary embolism; Z79.01 Long term (current) use of anticoagulants; Z79.891 Long term (current) use of opiate analgesic; Z86.718 Personal history of other venous thrombosis and embolism
CPT/HCPCS: 36415; 71046; 80048; 80053; 83615; 83735; 85025; 85027; 85046; 85055; 85610; 85730; 93005; 96361; 96365; 96372; 96374; 96375; 96376; 99285; A9270; G0378; G0379; J0131; J1170; J7030; J7120

== ENCOUNTER 2021-10-13 14:11 | Inpatient (IN) | payer OTHER, SELFPAY ==
[2021-10-13] VITALS (28 sets, daily range): BP systolic 110–130; BP diastolic 61–88; PULSE 72–106; RESP 12–20; TEMP 36.1–36.4; O2SAT 96–100; BMI 31.6
--- NOTE | ~2021-10-13 | XR_ITS ---
EXAMINATION: XR chest 2V Exam Date/Time: 10/15/2021 16:20 CDT HISTORY: cough, sickle cell Comparison: 10/13/2021. RESULT: Lines, tubes, and devices: None. Lungs and pleura: Bibasilar linear opacities. Cardiomediastinal silhouette: Stable cardiomediastinal silhouette. Other: No acute osseous or upper abdominal finding. Endplate changes consistent with the history of sickle cell disease. IMPRESSION: No acute cardiopulmonary process. Bibasilar scar. Reviewed, dictated and finalized at location K.
--- NOTE | ~2021-10-13 | XR_ITS ---
EXAMINATION: XR chest 2V DATE: 10/13/2021 17:29 INDICATION: Sickle cell crisis, midsternal chest pain TECHNIQUE: PA and lateral views of the chest are obtained. COMPARISON: 08/19/2021 FINDINGS: The lungs are free of acute opacities. There is chronic scarring of the lung bases. No pleu ral effusion or pneumothorax. The cardiomediastinal silhouette is normal. The visualized bones and so ft tissues are unremarkable. IMPRESSION: 1. Chronic scarring of the lung bases. No acute cardiopulmonary abnormality. Reviewed, dictated and finalized at location F.
--- NOTE | 2021-10-13 17:20 | PC.NURSE ---
ADAMA Deshpande placed patient on 2L via nasal cannula.
--- NOTE | 2021-10-13 17:24 | PC.NURSE ---
Patient to radiology
[2021-10-13] MEDS: HYDROmorphone HCL INJ (*CRX) 1 MG/ML SYR IV PUSH ×2 (17:45→22:21)
[2021-10-13] MEDS: SODIUM CHLORIDE 0.9% IV 1,000 ML 999 ML IV CONT (17:46)
[2021-10-13 17:47] LABS: Basophils Absolute Auto 0.1 K/mm3 (0.0-0.1); Basophils Percent Auto 0.4 % (0.2-1.2); Eosinophils Absolute Auto 0.1 K/mm3 (0-0.3); Eosinophils Percent Auto 0.8 % (0-4.4); Hematocrit 28.3 % (42.0-52.0); Hemoglobin 9.8 g/dL (14.0-18.0); Immature Granulocyte Absolute 0.06 K/mm3 (0.00-0.031); Immature Granulocyte Percent A 0.4 % (0-0.5); Immature Platelet Fraction Pct 4.6 % (0.9-11.2); Immature Reticulocyte Fraction 36.3 % (3.0-15.9); Lymphocytes Absolute Auto 2.98 K/mm3 (0.9-3.2); Lymphocytes Percent Auto 21.4 % (18.3-44.2); Mean Corpuscular HGB Conc 34.6 g/dl (32-36); Mean Corpuscular Hemoglobin 30.2 pg (26-34); Mean Corpuscular Volume 87.3 fl (80-100); Mean Platelet Volume 10.1 fl (7.4-10.4); Monocytes Absolute Auto 0.8 K/mm3 (0.1-0.6); Neutrophils Absolute Auto 9.9 K/mm3 (1.3-6.7); Nucleated Red Blood Cells Absolute Auto 0.1 K/mm3 (0.0-0.012); Nucleated Red Blood Cells Perc 0.4 % (0.0-0.2); Platelet Count Result 352 k/mm3 (150-375); Red Blood Count 3.24 M/mm3 (4.6-6.20); Red Cell Distribution Width 14.3 % (11.5-14.5); Reticulocyte Hemoglobin Conten 32.1 pg (28.2-35.7); Reticulocyte Percent 6.19 % (0.7-4.3); White Blood Count 13.9 K/mm3 (4.5-10.0)
[2021-10-13 18:02] LABS: INR 1.3; Prothrombin Time 15.8 Seconds (11.1-14.7)
[2021-10-13 18:03] LABS: Partial Thromboplastin Time 28.8 SECONDS (22.3-36.8)
[2021-10-13 18:12] LABS: Alanine Aminotransferase 29 U/L (6-50); Albumin Level 4.7 g/dL (3.5-5.1); Alkaline Phosphatase 72 U/L (38-126); Anion Gap 7 mmol/L (8-16); Aspartate Amino Transferase 45 U/L (17-59); Bilirubin,Total 1.2 mg/dL (0.2-1.3); Blood Urea Nitrogen 6 mg/dL (9-20); Calcium 8.7 mg/dL (8.4-10.2); Carbon Dioxide 26 mmol/L (22-30); Chloride 109 mmol/L (98-107); Estimated CRCL calculation 146 ml/min; Estimated Glomerular Filt Rate > 60; Glucose 105 mg/dL (65-110); Potassium 4.3 mmol/L (3.4-5.0); Sodium 142 mmol/L (137-145)
[2021-10-13 18:19] LABS: Lactate Dehydrogenase 794 U/L (313-618)
[2021-10-13 18:22] LABS: SARS-CoV-2 RNA PCR Negative
[2021-10-13] MEDS: HYDROmorphone HCL INJ (*CRX) 1 MG/ML SYR 2 MG IV PUSH (18:25)
[2021-10-13 18:51] LABS: Sickle Cells 1+ (NORMAL)
[2021-10-13 18:53] LABS: Platelet Estimate Adequate (Adequate); Schistocytes 1+ (NORMAL); Target Cells 1+ (NORMAL)
--- NOTE | 2021-10-13 19:40 | ED.GENADULT ---
HPI - General Adult General Chief complaint: Unspecified Stated complaint: sickle cell crisis Time Seen by Provider: 10/13/21 17:14 History of Present Illness HPI narrative: Patient is a 36-year-old male with history of sickle cell who presents ER with pain crisis. Reports his son was sick and he caught his illness. Its caused him to start having pain in his arms and legs. He is also having pain in his back and chest. He was not tested for COVID. He has mild cough but no dyspnea. No fevers or chills or sweats. He still follows with Dr. Marks Related Data Home Medications Medication Instructions Recorded Confirmed folic acid 1 mg tablet 1 mg PO DAILY 02/16/19 08/19/21 hydroxyurea 500 mg capsule 500 mg PO DAILY 08/22/20 08/19/21 methadone 10 mg tablet 10 mg PO TID 08/22/20 08/19/21 oxycodone-acetaminophen 10 mg-325 1 tablet PO BID PRN Pain, Moderate 08/22/20 08/19/21 mg tablet warfarin 10 mg tablet 10 mg PO DAILY 08/22/20 08/19/21 warfarin 2 mg tablet 2 mg PO DAILY 08/22/20 08/19/21 Allergies Allergy/AdvReac Type Severity Reaction Status Date / Time Fish Containing Products Allergy Intermediate Itching Verified 08/19/21 09:03 Review of Systems Review of Systems: All systems reviewed & are unremarkable except as noted in HPI and below Constitutional: Constitutional: Denies chills, Reports fatigue and Denies fever(s) ENT: Denies nasal congestion and Denies sore throat Cardiovascular: Cardiovascular: Reports chest pain, Denies radiating jaw, neck or arm pain and Denies palpitations Respiratory: Respiratory: Reports cough, Denies dyspnea and Denies wheezing Gastrointestinal: Gastrointestinal: Denies abdominal pain, Denies nausea and Denies vomiting PMF Past Medical History Medical History Acute chest syndrome Chronic anticoagulation Due to history of DVT and pulmonary embolism. Chronic narcotic use On methadone with oxycodone for chronic pain related to his sickle cell disease. Deep venous thrombosis Noncompliance History of noncompliance with anticoagulation and hydroxyurea. Pulmonary embolism Sickle cell disease, type SC Surgical History Surgical History History of hand surgery Tendon surgery on right 5th finger. Family History Family History Grandparent Diabetes mellitus Acute myocardial infarction Sibling Asthma Sibling Asthma Mother Hypertension Sickle cell trait Son Sickle cell trait Daughter Sickle cell trait Grandparent No problems noted. Other Diabetes mellitus Father Sickle cell trait Social History Social History (Updated 08/19/21 @ 23:59 by Kimberlee Santamaria PA-C) Social History: The patient lives in [place] with his family. He is on disability due to sickle cell disease and chronic pain. He designates his friend, Keyla Luther, as his surrogate decision maker and he wishes to be a full code. He is a lifelong nonsmoker and denies alcohol and drug use. The patient has 2 children who have the sickle cell trait. Spiritual care concerns: No Agree to blood products: Yes Exam Narrative: GENERAL: Well-appearing, well-nourished, and in no acute distress. HEAD: Normocephalic, atraumatic. CHEST: Clear to auscultation. No respiratory distress. HEART: Regular rate and rhythm. Normal peripheral pulses. ABDOMEN: Soft, nontender, nondistended. EXTREMITIES: Normal range of motion. No edema. SKIN: Warm, dry, no rash. NEURO: Alert and oriented x3. PSYCH: Normal mood and affect. Course Course Emergency Course: Patient still having pain after Dilaudid 3 mg. Patient feels he requires admission to the hospital. Vital Signs Vital signs: Vital Signs Temperature 97.0 F L 10/13/21 14:21 Pulse Rate 106 H 10/13/21 14:21 Respiratory Rate 16 10/13/21 14:21 Blood Pressur
--- NOTE | 2021-10-13 20:09 | PM.IMHP ---
H&P: HPI History of Present Illness Date/Time: 10/13/21 20:09 Chief Complaint: Rib pain. Narrative: This is very 6-year-old male with past medical history significant for sickle cell disease, patient presents to the emergency room due to pain in the ribcage area as well as bilateral hips, pain with deep inspiration, denies any chills, any fevers, this has been progressively getting worse over the course of the last 4 days or so, patient has a cough productive of clear sputum. Patient denies any nausea, vomiting, diarrhea. Preliminary workup was significant for hemoglobin of 9, MCV is 80 8% retic count 6%, LDH is 794 patient tested negative for COVID 19, a chest x-ray was clear. Patient has been admitted for further evaluation ,management and treatment. Review of Systems Review of Systems: Ribcage pain, hip pain, poor appetite. Constitutional: Constitutional: Reports body ache(s), Denies chills, Denies fever(s), Denies malaise, Denies night sweats and Denies weakness Eyes: Eyes: Denies change in vision ENT: Denies dysphagia, Denies vertigo, Denies dizziness and Denies odynophagia Cardiovascular: Cardiovascular: Denies chest pain, Denies pedal edema, Denies claudication, Denies leg ulcers, Denies leg edema, Denies lightheadedness, Denies palpitations, Denies dyspnea on exertion and Denies paroxysmal nocturnal dyspnea Respiratory: Respiratory: Reports cough, Reports excessive phlegm production and Reports pain on inspiration Gastrointestinal: Gastrointestinal: Denies abdominal pain, Denies dyspepsia, Denies heartburn, Denies nausea and Denies vomiting Genitourinary: Genitourinary: Denies dysuria Musculoskeletal: Musculoskeletal: Reports myalgias, Denies joint swelling, Denies limited range of motion and Denies muscle weakness Integumentary/Breasts: Skin/Breast: Denies rash Neurologic: Denies focal weakness and Denies Sensory deficit (Neuro) Psychiatric: Psychiatric: Reports no additional psychiatric complaints and Reports as per HPI Endocrine: Endocrine: Denies cold intolerance, Denies fatigue, Denies flushing, Denies heat intolerance, Denies polyphagia, Denies polydipsia and Denies palpitations Hematologic/Lymphatic: Hematologic/Lymphatic: Reports no additional hematologic/lymphatic complaints and Reports as per HPI Allergic/Immunologic: Allergic/Immunologic: Reports no additional allergic/immunologic complaints and Reports as per [facility] Past Medical History Medical History Acute chest syndrome Chronic anticoagulation Due to history of DVT and pulmonary embolism. Chronic narcotic use On methadone with oxycodone for chronic pain related to his sickle cell disease. Deep venous thrombosis Noncompliance History of noncompliance with anticoagulation and hydroxyurea. Pulmonary embolism Sickle cell disease, type SC Surgical History Surgical History History of hand surgery Tendon surgery on right 5th finger. Family History Family History Grandparent Diabetes mellitus Acute myocardial infarction Sibling Asthma Sibling Asthma Mother Hypertension Sickle cell trait Son Sickle cell trait Daughter Sickle cell trait Grandparent No problems noted. Other Diabetes mellitus Father Sickle cell trait Social History Social History (Updated 08/19/21 @ 23:59 by Kimberlee Santamaria PA-C) Social History: The patient lives in [place] with his family. He is on disability due to sickle cell disease and chronic pain. He designates his friend, Keyla Luther, as his surrogate decision maker and he wishes to be a full code. He is a lifelong nonsmoker and denies alcohol and drug use. The patient has 2 children who have the sickle cell trait. Spiritual care concerns: No Agree to blood products: Yes Meds Home Medications and A
[2021-10-13] MEDS: SODIUM CHLORIDE 0.9% IV 1,000 ML 125 ML IV CONT (20:51)
[2021-10-13] MEDS: HYDROmorphone HCL INJ (*CRX) 2 MG/ML VIAL IV PUSH (23:01)
[2021-10-14] VITALS (9 sets, daily range): BP systolic 106–124; BP diastolic 58–79; PULSE 69–81; RESP 16–18; TEMP 35.9–36.4; O2SAT 96–99
[2021-10-14] MEDS: DEXTROSE 5%/0.45% SOD CHL 1,000 ML 100 ML IV CONT (01:57)
[2021-10-14] MEDS: HYDROmorphone HCL INJ (*CRX) 1 MG/ML SYR 3 MG IV PUSH ×7 (01:58→21:38)
[2021-10-14 06:11] LABS: INR 1.4; Prothrombin Time 16.6 Seconds (11.1-14.7)
[2021-10-14] MEDS: FOLIC ACID 1 MG TABLET PO (08:31)
[2021-10-14] MEDS: methADONE HCL (*CRX) 10 MG TABLET PO ×3 (09:59→18:07)
[2021-10-14] MEDS: SODIUM CHLORIDE 0.9% IV 1,000 ML 125 ML IV CONT (12:00)
--- NOTE | 2021-10-14 13:53 | PM.IMPN ---
Progress Note: A&P Assessment and Plan (1) Vaso-occlusive pain due to sickle cell disease: Code(s): D57.00 - Hb-SS disease with crisis, unspecified Status: Acute (2) Sickle cell pain crisis: Code(s): D57.00 - Hb-SS disease with crisis, unspecified Status: Acute (3) Subtherapeutic international normalized ratio (INR): Code(s): R79.1 - Abnormal coagulation profile Status: Acute (4) Hx of pulmonary embolus: Code(s): Z86.711 - Personal history of pulmonary embolism Status: Acute (5) Chronic anticoagulation: Code(s): Z79.01 - nursing home (current) use of anticoagulants Status: Chronic Plan Patient presents with diffuse pain felt to be sickle cell crisis. He was started on maintenance fluid. Will switch this to normal saline and increase the rate. His methadone and folic acid have been continued. Will continue Dilaudid and Percocet for pain control. Encourage patient to be ambulatory. INR 1.4 today. Continue Coumadin. Will give extra dose of Coumadin today. Continue daily INR. Consider Lovenox as his INR does not become therapeutic another day or so. Subjective Date/time seen: 10/14/21 13:53 Interval history: 36yo male with sickle cell here for diffuse pain felt to have sickle cell crisis. Patient's pain is rated 8/10 but he feels better overall. Pain is located in the legs, back and the ribs. No central chest pain. He does not wear oxygen at home. Exam Narrative: AF 96.9 115/72 72 18 99% 2L Gen - NARD Chest -clear to auscultation bilaterally. Normal respiratory rate CV - RRR S1/S2 Abd - Soft, NT/ND, Positive BS Ext - No pedal edema Psych - Nml mood and affect Skin - Warm and dry Objective Data Vital Signs Vital Signs: Vital Signs - 24 hr 10/13/21 14:21 10/13/21 17:13 10/13/21 17:06 Temperature 97.0 F L Pulse Rate 106 H 76 80 Respiratory Rate 16 15 Blood Pressure 130/79 128/77 Pulse Oximetry 100 100 Oxygen Delivery Room Air 10/13/21 17:07 10/13/21 17:15 10/13/21 17:16 Temperature Pulse Rate 75 75 76 Respiratory Rate 14 13 15 Blood Pressure 113/79 Pulse Oximetry 99 99 97 Oxygen Delivery 10/13/21 17:33 10/13/21 17:45 10/13/21 17:46 Temperature Pulse Rate 90 84 85 Respiratory Rate 19 20 20 Blood Pressure 115/77 Pulse Oximetry 100 100 100 Oxygen Delivery 10/13/21 18:00 10/13/21 18:01 10/13/21 18:18 Temperature Pulse Rate 86 82 72 Respiratory Rate 13 19 12 Blood Pressure 110/71 Pulse Oximetry 99 96 97 Oxygen Delivery 10/13/21 18:32 10/13/21 18:15 10/13/21 18:55 Temperature 97.0 F L 97.0 F L Pulse Rate 83 Respiratory Rate 13 Blood Pressure Pulse Oximetry 99 Oxygen Delivery 10/13/21 18:45 10/13/21 18:46 10/13/21 18:47 Temperature Pulse Rate 82 81 82 Respiratory Rate 12 12 14 Blood Pressure 111/78 Pulse Oximetry 100 100 Oxygen Delivery 10/13/21 19:02 10/13/21 19:15 10/13/21 19:16 Temperature Pulse Rate 82 82 82 Respiratory Rate 14 14 13 Blood Pressure 118/61 Pulse Oximetry 98 99 Oxygen Delivery 10/13/21 19:30 10/13/21 19:31 10/13/21 19:45 Temperature Pulse Rate 82 82 85 Respiratory Rate 20 14 16 Blood Pressure 125/88 Pulse Oximetry 100 99 99 Oxygen Delivery 10/13/21 20:00 10/13/21 20:01 10/13/21 20:16 Temperature Pulse Rate 81 79 82 Respiratory Rate 15 14 14 Blood Pressure 122/79 Pulse Oximetry 98 99 100 Oxygen Delivery 10/13/21 21:46 10/14/21 00:00 10/14/21 04:00 Temperature 97.6 F 97.6 F 97.3 F L Pulse Rate 74 81 74 Respiratory Rate 16 16 16 Blood Pressure 126/72 110/71 106/58 L Pulse Oximetry 99 96 98 Oxygen Delivery 10/14/21 08:00 10/14/21 12:00 Temperature 96.6 F L 96.9 F L Pulse Rate 69 72 Respiratory Rate 18 18 Blood Pressure 113/66 115/72 Pulse Oximetry 98 99 Oxygen Delivery Intake/Output Intake/Output: Intake & Output 10/11/21 10/12/21 10/13/21
[2021-10-14] MEDS: WARFARIN (*PBKC) 4 MG TABLET PO (15:26)
[2021-10-14] MEDS: WARFARIN (*PBKC) 2 MG TABLET PO (18:03)
[2021-10-14] MEDS: WARFARIN (*PBKC) 10 MG TABLET PO (18:04)
[2021-10-14] MEDS: SODIUM CHLORIDE 0.9% IV 1,000 ML 150 ML IV CONT (19:27)
[2021-10-15] MEDS: HYDROmorphone HCL INJ (*CRX) 1 MG/ML SYR 3 MG IV PUSH ×7 (00:31→20:59)
[2021-10-15] MEDS: ACETAMINOPHEN 325 MG TABLET 650 MG PO (00:35)
[2021-10-15] MEDS: SODIUM CHLORIDE 0.9% IV 1,000 ML 150 ML IV CONT ×3 (02:36→21:04)
[2021-10-15 04:00] VITALS: BP 121/75; PULSE 80; RESP 18; TEMP 36.7; O2SAT 95
[2021-10-15 06:47] LABS: INR 1.5; Prothrombin Time 17.1 Seconds (11.1-14.7)
[2021-10-15 06:55] LABS: Alanine Aminotransferase 20 U/L (6-50); Albumin Level 3.8 g/dL (3.5-5.1); Alkaline Phosphatase 64 U/L (38-126); Anion Gap 5 mmol/L (8-16); Aspartate Amino Transferase 26 U/L (17-59); Bilirubin,Total 0.8 mg/dL (0.2-1.3); Blood Urea Nitrogen 6 mg/dL (9-20); Calcium 8.2 mg/dL (8.4-10.2); Carbon Dioxide 26 mmol/L (22-30); Chloride 110 mmol/L (98-107); Estimated CRCL calculation 168 ml/min; Estimated Glomerular Filt Rate > 60; Glucose 106 mg/dL (65-110); Potassium 3.9 mmol/L (3.4-5.0); Sodium 141 mmol/L (137-145)
[2021-10-15 07:51] LABS: Basophils Percent Auto 0.3 % (0.2-1.2); Eosinophils Absolute Auto 0.3 K/mm3 (0-0.3); Eosinophils Percent Auto 2.4 % (0-4.4); Hematocrit 26.7 % (42.0-52.0); Hemoglobin 9.5 g/dL (14.0-18.0); Immature Granulocyte Absolute 0.04 K/mm3 (0.00-0.031); Immature Granulocyte Percent A 0.3 % (0-0.5); Lymphocytes Absolute Auto 3.93 K/mm3 (0.9-3.2); Lymphocytes Percent Auto 31.8 % (18.3-44.2); Mean Corpuscular HGB Conc 35.6 g/dl (32-36); Mean Corpuscular Hemoglobin 30.5 pg (26-34); Mean Corpuscular Volume 85.9 fl (80-100); Mean Platelet Volume 10.9 fl (7.4-10.4); Monocytes Absolute Auto 0.8 K/mm3 (0.1-0.6); Monocytes Percent Auto 6.7 % (2.6-8.5); Neutrophils Absolute Auto 7.2 K/mm3 (1.3-6.7); Neutrophils Percent Auto 58.5 % (45.5-73.1); Nucleated Red Blood Cells Perc 0.2 % (0.0-0.2); Platelet Count Result 328 k/mm3 (150-375); Red Blood Count 3.11 M/mm3 (4.6-6.20); Red Cell Distribution Width 13.8 % (11.5-14.5); White Blood Count 12.4 K/mm3 (4.5-10.0)
[2021-10-15] MEDS: FOLIC ACID 1 MG TABLET PO (08:34)
[2021-10-15] MEDS: methADONE HCL (*CRX) 10 MG TABLET PO ×3 (08:34→17:34)
[2021-10-15] MEDS: WARFARIN (*PBKC) 4 MG TABLET PO (08:34)
[2021-10-15] MEDS: oxyCODONE/ACETAMINOPHEN (*CRX) 10-325 MG TABLET 1 TAB PO (13:00)
[2021-10-15 13:58] VITALS: O2SAT 98
[2021-10-15 14:00] VITALS: BP 118/64; PULSE 83; RESP 18; TEMP 36.6; O2SAT 98
--- NOTE | 2021-10-15 16:03 | PM.IMPN ---
Progress Note: A&P Assessment and Plan (1) Vaso-occlusive pain due to sickle cell disease: Code(s): D57.00 - Hb-SS disease with crisis, unspecified Status: Acute (2) Sickle cell pain crisis: Code(s): D57.00 - Hb-SS disease with crisis, unspecified Status: Acute (3) Subtherapeutic international normalized ratio (INR): Code(s): R79.1 - Abnormal coagulation profile Status: Acute (4) Hx of pulmonary embolus: Code(s): Z86.711 - Personal history of pulmonary embolism Status: Acute (5) Chronic anticoagulation: Code(s): Z79.01 - correction (current) use of anticoagulants Status: Chronic Plan Patient presents with diffuse pain felt to be sickle cell crisis. He was started on maintenance fluid but changed to normal saline at 150ml/hour. Urine clear. His methadone and folic acid were continued. Will continue Dilaudid and Percocet for pain control. Encourage patient to be ambulatory. INR 1.5 today. Continue Coumadin. Extra Coumadin agaiin today. Continue daily INR. Patient with cough. COVID swab negative. Will repeat CXR. Conside abx. Subjective Date/time seen: 10/15/21 16:03 Interval history: 36yo male with sickle cell here for diffuse pain felt to have sickle cell crisis. Feels better. Pain slightly better at 7-8/10. Stil involving his ribs, legs and back. He has a cough productive of yellow sputum since admission. He is compliant with his coumadin at home. Eating better. No BM. Urine is clearer then yesterday Exam Narrative: AF 97.8 118/64 83 18 98% ra Gen - NARD Chest - few basilar inspiratory rhonchi. nml RR CV - RRR S1/S2 Abd - Soft, NT/ND, Positive BS Ext - No pedal edema Psych - Nml mood and affect Skin - Warm and dry Objective Data Vital Signs Vital Signs: Vital Signs - 24 hr 10/14/21 19:00 10/14/21 20:00 10/14/21 22:00 Temperature 97.3 F L 97.3 F L Pulse Rate 76 76 Respiratory Rate 18 18 Blood Pressure 109/59 L 109/59 L Pulse Oximetry 99 97 97 Oxygen Delivery Room Air 10/14/21 23:56 10/15/21 04:00 10/15/21 08:30 Temperature 97.6 F 98.0 F Pulse Rate 70 80 Respiratory Rate 18 18 Blood Pressure 124/79 121/75 Pulse Oximetry 98 95 Oxygen Delivery Room Air 10/15/21 13:58 10/15/21 14:00 Temperature 97.8 F Pulse Rate 83 Respiratory Rate 18 Blood Pressure 118/64 Pulse Oximetry 98 98 Oxygen Delivery Room Air Intake/Output Intake/Output: Intake & Output 10/12/21 10/13/21 10/14/21 10/15/21 23:59 23:59 23:59 23:59 Intake Total 1000 3924 2480 Output Total 1450 1875 Balance 1000 2474 605 Meds/Results Medications: Active Medications Generic Name Dose Route Start Last Admin Trade Name Freq PRN Reason Stop Dose Admin Acetaminophen 650 mg 10/14/21 14:02 10/15/21 00:35 Acetaminophen 325 Mg Tablet PO 650 mg Q6H PRN Administration Mild Pain (1-3) or Fever Folic Acid 1 mg 10/14/21 09:00 10/15/21 08:34 Folic Acid 1 Mg Tablet PO 1 mg DAILY CHRISTOPHER Administration Hydromorphone HCl 3 mg 10/13/21 22:53 10/15/21 14:36 Hydromorphone Hcl Inj (*Crx) 1 Mg/Ml Syr IV PUSH 3 mg Q3H PRN Administration Pain Rated 7-10 Sodium Chloride 1,000 mls @ 150 mls/hr 10/14/21 07:05 10/15/21 12:57 Normal Saline Iv IV CONT 150 mls/hr .Q6H40M CHRISTOPHER Administration Methadone HCl 10 mg 10/14/21 09:00 10/15/21 13:00 Methadone Hcl (*Crx) 10 Mg Tablet PO 10 mg TID CHRISTOPHER Administration Ondansetron HCl 4 mg 10/13/21 19:56 Ondansetron Inj 4 Mg/2 Ml Vial IV PUSH Q4H PRN Nausea Oxycodone/Acetaminophen 1 tab 10/14/21 14:04 10/15/21 13:00 Oxycodone/Acetaminophen (*Crx) 10-325 Mg Tablet PO 1 tab BID PRN Administration Pain Rated 4-6 Warfarin Sodium 10 mg 10/14/21 00:25 10/14/21 18:04 Warfarin (*Pbkc) 10 Mg Tablet PO 10 mg DAILY@1700 CHRISTOPHER Administration Warfarin Sodium 2 mg 10/14/21 00:25 10/14/21 18:03 Warfarin (*Pbkc) 2 Mg
[2021-10-15] MEDS: WARFARIN (*PBKC) 2 MG TABLET PO (17:35)
[2021-10-15] MEDS: WARFARIN (*PBKC) 10 MG TABLET PO (17:35)
[2021-10-15] MEDS: polyethylene glycoL 3350 17 GM POWD.PACK PO (17:35)
[2021-10-15 21:48] VITALS: BP 118/68; PULSE 77; RESP 17; TEMP 36.8; O2SAT 97
[2021-10-16] MEDS: HYDROmorphone HCL INJ (*CRX) 1 MG/ML SYR 3 MG IV PUSH ×4 (00:09→09:52)
[2021-10-16] MEDS: SODIUM CHLORIDE 0.9% IV 1,000 ML 150 ML IV CONT ×2 (03:38→09:53)
[2021-10-16 05:48] VITALS: BP 134/63; PULSE 77; RESP 18; TEMP 37; O2SAT 97
[2021-10-16 07:07] LABS: Basophils Absolute Auto 0.1 K/mm3 (0.0-0.1); Basophils Percent Auto 0.7 % (0.2-1.2); Eosinophils Absolute Auto 0.4 K/mm3 (0-0.3); Eosinophils Percent Auto 4.4 % (0-4.4); Hematocrit 25.2 % (42.0-52.0); Hemoglobin 9.1 g/dL (14.0-18.0); Immature Granulocyte Absolute 0.02 K/mm3 (0.00-0.031); Immature Granulocyte Percent A 0.2 % (0-0.5); Lymphocytes Absolute Auto 3.48 K/mm3 (0.9-3.2); Lymphocytes Percent Auto 38.7 % (18.3-44.2); Mean Corpuscular HGB Conc 36.1 g/dl (32-36); Mean Corpuscular Hemoglobin 30.6 pg (26-34); Mean Corpuscular Volume 84.8 fl (80-100); Mean Platelet Volume 10.6 fl (7.4-10.4); Monocytes Absolute Auto 0.7 K/mm3 (0.1-0.6); Neutrophils Absolute Auto 4.3 K/mm3 (1.3-6.7); Nucleated Red Blood Cells Perc 0.2 % (0.0-0.2); Platelet Count Result 317 k/mm3 (150-375); Red Blood Count 2.97 M/mm3 (4.6-6.20); Red Cell Distribution Width 13.7 % (11.5-14.5)
[2021-10-16 07:16] LABS: Anion Gap 6 mmol/L (8-16); Blood Urea Nitrogen 7 mg/dL (9-20); Calcium 8.1 mg/dL (8.4-10.2); Carbon Dioxide 24 mmol/L (22-30); Chloride 111 mmol/L (98-107); Estimated CRCL calculation 146 ml/min; Estimated Glomerular Filt Rate > 60; Glucose 129 mg/dL (65-110); Potassium 3.6 mmol/L (3.4-5.0); Sodium 141 mmol/L (137-145)
[2021-10-16 07:47] LABS: INR 1.9; Prothrombin Time 20.8 Seconds (11.1-14.7)
[2021-10-16] MEDS: polyethylene glycoL 3350 17 GM POWD.PACK PO (09:52)
[2021-10-16] MEDS: FOLIC ACID 1 MG TABLET PO (09:53)
[2021-10-16] MEDS: methADONE HCL (*CRX) 10 MG TABLET PO ×3 (09:53→16:36)
--- NOTE | 2021-10-16 10:19 | PM.IMPN ---
Progress Note: A&P Assessment and Plan (1) Vaso-occlusive pain due to sickle cell disease: Code(s): D57.00 - Hb-SS disease with crisis, unspecified Status: Acute Assessment and Plan: Patient presents with diffuse pain felt to be sickle cell crisis. He was started on maintenance fluid but changed to normal saline at 150ml/hour. His methadone and folic acid were continued. He was started on Dilaudid and Percocet for pain control. Encouraged patient to be ambulatory. Pain better controlled. Will start backing off on frequency of Diluadid. (2) Sickle cell pain crisis: Code(s): D57.00 - Hb-SS disease with crisis, unspecified Status: Acute Assessment and Plan: As above (3) Hx of pulmonary embolus: Code(s): Z86.711 - Personal history of pulmonary embolism Status: Acute Assessment and Plan: INR subtherapeutic on admission. Patient states he is compliant with his Coumadin. He has been receiving extra dose of Coumadin as we have continued his 12 mg daily. INR 1.9 today. Continue Coumadin and advanced dose. (4) Cough: Code(s): R05.9 - Cough, unspecified Status: Acute Assessment and Plan: Patient with productive cough. COVID swab was negative. CXR showing chronic scarring of the lung bases. Repeat x-ray yesterday showed similar findings. Will add Mucinex today. Subjective Date/time seen: 10/16/21 10:19 Interval history: 36yo male with sickle cell here for diffuse pain felt to have sickle cell crisis. Patient is up walking to the bathroom. No chest pain. Pain is overall improved. No change in cough. Cough is productive yellow sputum. Exam Narrative: AF 98.6 134/63 771 8 97% ra Gen - NARD Chest -clear to auscultation bilaterally. Normal respiratory CV - RRR S1/S2 Abd - Soft, NT/ND, Positive BS Ext - No pedal edema Psych - Nml mood and affect Skin - Warm and dry Objective Data Vital Signs Vital Signs: Vital Signs - 24 hr 10/15/21 13:58 10/15/21 14:00 10/15/21 21:48 Temperature 97.8 F 98.3 F Pulse Rate 83 77 Respiratory Rate 18 17 Blood Pressure 118/64 118/68 Pulse Oximetry 98 98 97 Oxygen Delivery Room Air 10/15/21 20:00 10/16/21 05:48 Temperature 98.6 F Pulse Rate 77 Respiratory Rate 18 Blood Pressure 134/63 Pulse Oximetry 97 Oxygen Delivery Room Air Intake/Output Intake/Output: Intake & Output 10/13/21 10/14/21 10/15/21 10/16/21 23:59 23:59 23:59 23:59 Intake Total 1000 3924 4474 2560 Output Total 1450 3735 1200 Balance 1000 2474 739 1360 Meds/Results Medications: Active Medications Generic Name Dose Route Start Last Admin Trade Name Freq PRN Reason Stop Dose Admin Acetaminophen 650 mg 10/14/21 14:02 10/15/21 00:35 Acetaminophen 325 Mg Tablet PO 650 mg Q6H PRN Administration Mild Pain (1-3) or Fever Folic Acid 1 mg 10/14/21 09:00 10/16/21 09:53 Folic Acid 1 Mg Tablet PO 1 mg DAILY CHRISTOPHER Administration Hydromorphone HCl 3 mg 10/13/21 22:53 10/16/21 09:52 Hydromorphone Hcl Inj (*Crx) 1 Mg/Ml Syr IV PUSH 3 mg Q3H PRN Administration Pain Rated 7-10 Sodium Chloride 1,000 mls @ 150 mls/hr 10/14/21 07:05 10/16/21 09:53 Normal Saline Iv IV CONT 150 mls/hr .Q6H40M CHIRSTOPHER Administration Methadone HCl 10 mg 10/14/21 09:00 10/16/21 09:53 Methadone Hcl (*Crx) 10 Mg Tablet PO 10 mg TID CHRISTOPHER Administration Ondansetron HCl 4 mg 10/13/21 19:56 Ondansetron Inj 4 Mg/2 Ml Vial IV PUSH Q4H PRN Nausea Oxycodone/Acetaminophen 1 tab 10/14/21 14:04 10/15/21 13:00 Oxycodone/Acetaminophen (*Crx) 10-325 Mg Tablet PO 1 tab BID PRN Administration Pain Rated 4-6 Polyethylene Glycol 17 gm 10/15/21 16:10 10/16/21 09:52 Polyethylene Glycol 3350 17 Gm Powd.Pack PO 17 gm QAM CHRISTOPHER Administration Warfarin Sodium 10 mg 10/14/21 00:25 10/15/21 17:35 Warfarin (*Pbkc) 10 Mg Tablet PO 10 mg
[2021-10-16] MEDS: guaiFENesin 12 HR 600 MG TABCR PO (12:28)
[2021-10-16 14:00] VITALS: BP 119/79; PULSE 76; RESP 18; TEMP 36.6; O2SAT 98
[2021-10-16] MEDS: WARFARIN (*PBKC) 10 MG TABLET PO (16:37)
[2021-10-16] MEDS: HYDROmorphone HCL INJ (*CRX) 1 MG/ML SYR 2 MG IV PUSH (16:37)
--- NOTE | 2021-10-16 17:11 | PM.DS ---
DS: Admitting Diagnosis Discharge Date 10/16/21 Admitting Diagnosis Diffuse pain DS: Discharge Diagnosis Discharge Diagnosis (1) Vaso-occlusive pain due to sickle cell disease: Code(s): D57.00 - Hb-SS disease with crisis, unspecified Status: Acute Assessment and Plan: Patient presents with diffuse pain felt to be sickle cell crisis. He was started on maintenance fluid but changed to normal saline at 150ml/hour. His methadone and folic acid were continued. He was started on Dilaudid and Percocet for pain control. Patient was up ambulating to the bathroom without difficulty. Pain became better controlled. We began to wean down the Dilaudid. Patient notified the nurse that he was ready for discharge. Patient overall did well was later discharged home on 10/16/2021. (2) Sickle cell pain crisis: Code(s): D57.00 - Hb-SS disease with crisis, unspecified Status: Acute Assessment and Plan: As above (3) Hx of pulmonary embolus: Code(s): Z86.711 - Personal history of pulmonary embolism Status: Acute Assessment and Plan: INR was subtherapeutic on admission. Patient stated he is compliant with his Coumadin. He has been receiving extra doses of Coumadin as we have continued his 12 mg daily. INR was 1.9 today. We advanced his Coumadin dose. Repeat INR later this week. (4) Cough: Code(s): R05.9 - Cough, unspecified Status: Acute Assessment and Plan: Patient with productive cough. COVID swab was negative. CXR showing chronic scarring of the lung bases. Repeat x-ray again showing similar findings. Edwards to be viral bronchitis. DS: Summary Hospital Course Reason for hospitalization: 36yo male with sickle cell here for diffuse pain felt to have sickle cell crisis. Please see H&P for details Hospital Course: Please see above for details of hospital course. Status at Discharge Cognitive/behavioral status at discharge: Stable Time Spent with Patient Time attestation: Total time spent providing and/or coordinating discharge services: 36 minutes Time spent: Greater than 30 minutes Exam Narrative: AF 98.6 134/63 771 8 97% ra Gen - NARD Chest -clear to auscultation bilaterally. Normal respiratory CV - RRR S1/S2 Abd - Soft, NT/ND, Positive BS Ext - No pedal edema Psych - Nml mood and affect Skin - Warm and dry DS: Data Data Completed and Pending Labs on day of discharge: Labs from last 24 hours 10/16/21 10/16/21 10/16/21 06:30 06:29 06:29 WBC 9.0 RBC 2.97 L Hgb 9.1 L Hct 25.2 L MCV 84.8 MCH 30.6 MCHC 36.1 H RDW 13.7 Plt Count 317 MPV 10.6 H Immature Gran % (Auto) 0.2 Neut % (Auto) 48.0 Lymph % (Auto) 38.7 [place] % (Auto) 8.0 Eos % (Auto) 4.4 Baso % (Auto) 0.7 Lymph # (Auto) 3.48 H [place] # (Auto) 0.7 H Eos # (Auto) 0.4 H Baso # (Auto) 0.1 Abs Immat Gran (auto) 0.02 Absolute Neuts (auto) 4.3 Absolute Nucleated RBC 0.0 Nucleated RBC % 0.2 PT 20.8 H D INR 1.9 Sodium 141 Potassium 3.6 Chloride 111 H Carbon Dioxide 24 Anion Gap 6 L BUN 7 L Creatinine 0.70 Estim Creat Clear Calc 146 Estimated GFR > 60 Glucose 129 H Calcium 8.1 L Discharge Plan Discharge Attending physician on discharge: Juvencio Hammond Discharging Clinician: Juvencio Hammond Anticipated Discharge Date/Time: 10/16/21 17:15 Patient Disposition: Home, Self-Care Activity: as tolerated Diet: regular Discharge Instructions: Contact your doctor or call 911 and come to the Emergency Room if you have fevers, increasing shortness of breath or other worrisome symptoms. Avoid NSAIDs (ibuprofen, naproxen, Aleve). Tylenol is safe to take. Avoid all alcohol and minimize caffeine intake. Avoid dehydration. Stay well hydrated especially if you are working outside in the heat. Follow-up with your doctor in
== END 2021-10-16 18:13 | disposition home or self-care (01) | DRG 662 ==
LOC: ANHED 18:01 → ANH3MEDSUR 20:23
PROVIDERS: Admitting Provider Internal Medicine; Emergency Provider Emergency Medicine; PCP Internal Medicine Hematology & Oncology; Visit Provider Internal Medicine
DX: D57.00 Hb-SS disease with crisis, unspecified (principal); Z20.822 Contact with and (suspected) exposure to COVID-19; R79.1 Abnormal coagulation profile; Z79.899 Other long term (current) drug therapy; Z79.01 Long term (current) use of anticoagulants; J20.8 Acute bronchitis due to other specified organisms; Z83.2 Family history of diseases of the blood and blood-forming organs and certain disorders involving the immune mechanism; Z82.49 Family history of ischemic heart disease and other diseases of the circulatory system; Z86.711 Personal history of pulmonary embolism; Z86.718 Personal history of other venous thrombosis and embolism; Z79.891 Long term (current) use of opiate analgesic; Z91.19 Patient's noncompliance with other medical treatment and regimen
CPT/HCPCS: 36415; 71046; 80048; 80053; 83615; 85025; 85046; 85055; 85610; 85730; 96361; 96374; 96375; 96376; 99285; A9270; C9803; G0378; G0379; J1170; J7030; U0003; U0005

== ENCOUNTER 2021-11-12 13:52 | Inpatient (IN) | payer OTHER, SELFPAY ==
[2021-11-12] VITALS (8 sets, daily range): BP systolic 118–127; BP diastolic 72–77; PULSE 85–93; RESP 16–20; TEMP 36.6–37.2; O2SAT 98–100; BMI 29.5
--- NOTE | ~2021-11-12 | XR_ITS ---
EXAMINATION: XR chest 2V Exam Date/Time: 11/12/2021 17:15 CDT HISTORY: sickle cell crisis, CP Comparison: 10/15/2021. RESULT: Lines, tubes, and devices: None. Lungs and pleura: Bibasilar scarring. Cardiomediastinal silhouette: Stable. Other: No acute osseous or upper abdominal finding. Endplate changes consistent with the history of sickle cell anemia. IMPRESSION: No acute cardiopulmonary process. Reviewed, dictated and finalized at location K.
--- NOTE | 2021-11-12 16:58 | ED.GENADULT ---
HPI - General Adult General Chief complaint: Unspecified Stated complaint: sickle cell pain Time Seen by Provider: 11/12/21 16:50 History of Present Illness HPI narrative: 36-year-old male presents the emergency room for evaluation of sickle cell crisis. Patient states this morning he woke up began experiencing pain in joints of his arms and his legs, back and chest. States this is typical sickle cell crisis. Denies any shortness of breath or difficulty breathing. Related Data Home Medications Medication Instructions Recorded Confirmed folic acid 1 mg tablet 1 mg PO DAILY 02/16/19 10/13/21 methadone 10 mg tablet 10 mg PO TID 08/22/20 10/13/21 oxycodone-acetaminophen 10 mg-325 1 tablet PO BID PRN Pain, Moderate 08/22/20 10/13/21 mg tablet warfarin 10 mg tablet 10 mg PO DAILY 08/22/20 10/13/21 Allergies Allergy/AdvReac Type Severity Reaction Status Date / Time Fish Containing Products Allergy Intermediate Itching Verified 08/19/21 09:03 Review of Systems Review of Systems: CONSTITUTIONAL: Denies fever, chills, or sweats. EYES: Denies visual changes, redness, or discharge. ENT: Denies rhinorrhea, congestion, sore throat, or otalgia. CARDIOVASCULAR: Denies chest pain, palpitations, or edema. RESPIRATORY: Denies cough or dyspnea. GASTROINTESTINAL: Denies abdominal pain, nausea, vomiting, or diarrhea. GENITOURINARY: Denies dysuria or hematuria. SKIN: Denies rash or itching. MUSCULOSKELETAL: Reports back pain, joint pain, and myalgia. NEUROLOGIC: Denies headache, numbness, dizziness, or weakness. PSYCHIATRIC: Denies anxiety or depression. [facility] Past Medical History Medical History Acute chest syndrome Chronic anticoagulation Due to history of DVT and pulmonary embolism. Chronic narcotic use On methadone with oxycodone for chronic pain related to his sickle cell disease. Deep venous thrombosis Noncompliance History of noncompliance with anticoagulation and hydroxyurea. Pulmonary embolism Sickle cell disease, type SC Surgical History Surgical History History of hand surgery Tendon surgery on right 5th finger. Family History Family History Grandparent Diabetes mellitus Acute myocardial infarction Sibling Asthma Sibling Asthma Mother Hypertension Sickle cell trait Son Sickle cell trait Daughter Sickle cell trait Grandparent No problems noted. Other Diabetes mellitus Father Sickle cell trait Social History Social History Social History: The patient lives in [place] with his family. He is on disability due to sickle cell disease and chronic pain. He designates his friend, Keyla Luther, as his surrogate decision maker and he wishes to be a full code. He is a lifelong nonsmoker and denies alcohol and drug use. The patient has 2 children who have the sickle cell trait. Spiritual care concerns: No Agree to blood products: Yes Exam Narrative: GENERAL: Well-appearing, well-nourished, no physical limitations, and in mild distress. HEAD: Normocephalic, atraumatic. EYES: Conjunctivae normal, PERRLA and EOMI. ENT: External nose normal, Nares clear, no rhinorrhea or epistaxis. Mucous membranes moist. Oropharynx without tonsillar hypertrophy exudate or other lesions. External ears normal, bilateral TMs normal bilaterally NECK: Supple. No adenopathy or masses. No carotid bruits or JVD CHEST: Clear to auscultation. No respiratory distress. No wheezes rales or rhonchi. No tenderness. HEART: Regular rate and rhythm. No murmur heard. Normal peripheral pulses. ABDOMEN: Soft, nontender, nondistended, normal active bowel sounds. BACK: No CVA tenderness; No cervical/thoracic/lumbar tenderness, step-offs, bony abnormality; FROM EXTREMITIES: Normal range of motion. No dallin
--- NOTE | 2021-11-12 16:59 | ECG_ITS ---
Measurements Intervals [place] Rate: 79 P: 4 DC: 164 QRS: 20 QRSD: 89 T: 2 QT: 402 QTc: 462 Interpretive Statements SINUS RHYTHM NONSPECIFIC ST & T-WAVE ABNORMALITY Electronically Signed On 11-14-2021 11:34:38 CDT by Brandyn Barrett M.D.
--- NOTE | 2021-11-12 18:06 | PC.NURSE ---
Unable to obtain IV access on patient. PT states he needs ultrasound placement in order to obtain and IV.
--- NOTE | 2021-11-12 18:28 | PC.NURSE ---
unable to obtain IV access.
--- NOTE | 2021-11-12 18:58 | PC.NURSE ---
Phlebotomy called for lab draw.
--- NOTE | 2021-11-12 19:15 | PC.NURSE ---
Assumed care of pt at this time, received from Bernardo BEE. Pt alert and upright on stretcher, updated on POC.
--- NOTE | 2021-11-12 19:37 | PC.NURSE ---
Phlebotomy unable to obtain blood for lab draw. ED ELECTRICIAN [employer]ING Keen notified.
[2021-11-12 19:54] LABS: Basophils Absolute Auto 0.1 K/mm3 (0.0-0.1); Basophils Percent Auto 0.5 % (0.2-1.2); Eosinophils Absolute Auto 0.2 K/mm3 (0-0.3); Eosinophils Percent Auto 1.3 % (0-4.4); Hematocrit 28.6 % (42.0-52.0); Hemoglobin 9.9 g/dL (14.0-18.0); Immature Granulocyte Absolute 0.08 K/mm3 (0.00-0.031); Immature Granulocyte Percent A 0.6 % (0-0.5); Immature Platelet Fraction Pct 4.4 % (0.9-11.2); Immature Reticulocyte Fraction 32.8 % (3.0-15.9); Lymphocytes Absolute Auto 4.26 K/mm3 (0.9-3.2); Mean Corpuscular HGB Conc 34.6 g/dl (32-36); Mean Corpuscular Hemoglobin 29.9 pg (26-34); Mean Corpuscular Volume 86.4 fl (80-100); Mean Platelet Volume 9.8 fl (7.4-10.4); Monocytes Percent Auto 7.3 % (2.6-8.5); Neutrophils Absolute Auto 7.8 K/mm3 (1.3-6.7); Neutrophils Percent Auto 58.3 % (45.5-73.1); Nucleated Red Blood Cells Perc 0.3 % (0.0-0.2); Platelet Count Result 349 k/mm3 (150-375); Red Blood Count 3.31 M/mm3 (4.6-6.20); Red Cell Distribution Width 14.2 % (11.5-14.5); Reticulocyte Hemoglobin Conten 31.9 pg (28.2-35.7); Reticulocyte Percent 5.83 % (0.7-4.3); Reticulocytes Absolute 0.19 B/L (32.2-175.7); White Blood Count 13.3 K/mm3 (4.5-10.0)
[2021-11-12] MEDS: HYDROmorphone HCL INJ (*CRX) 1 MG/ML SYR 2 MG IM ×2 (19:55→23:47)
[2021-11-12 20:01] LABS: INR 2.2; Prothrombin Time 23.5 Seconds (11.1-14.7)
[2021-11-12 20:02] LABS: Partial Thromboplastin Time 32.6 SECONDS (22.3-36.8)
[2021-11-12 20:06] LABS: Alanine Aminotransferase 23 U/L (6-50); Albumin Level 4.5 g/dL (3.5-5.1); Alkaline Phosphatase 90 U/L (38-126); Anion Gap 11 mmol/L (8-16); Aspartate Amino Transferase 36 U/L (17-59); Blood Urea Nitrogen 7 mg/dL (9-20); Calcium 8.7 mg/dL (8.4-10.2); Carbon Dioxide 26 mmol/L (22-30); Chloride 106 mmol/L (98-107); Estimated CRCL calculation 146 ml/min; Estimated Glomerular Filt Rate > 60; Glucose 109 mg/dL (65-110); Lipase 72 U/L (23-300); Sodium 143 mmol/L (137-145)
[2021-11-12 20:13] LABS: Platelet Estimate Adequate (Adequate)
[2021-11-12 20:14] LABS: Anisocytosis 1+ (NORMAL); Poikilocytosis 1+ (NORMAL); Sickle Cells 1+ (NORMAL); Target Cells 1+ (NORMAL)
[2021-11-12 20:17] LABS: Troponin I < 0.012 ng/mL (0.000-0.034)
--- NOTE | 2021-11-12 20:57 | PM.IMHP ---
H&P: HPI History of Present Illness Date/Time: 11/12/21 20:57 Chief Complaint: pain crisis Narrative: this is a 36-year-old male with past medical history significant for sickle cell disease, patient comes in with sickle cell pain crisis, veno-occlusive, pain in his back his ribcage his thighs and hips. patient denies any fevers, rigors, chills, cough, sputum production, shortness of breath, dizziness, lightheadedness. Preliminary workup was significant for hemoglobin of 9.9, P count of 5%, a chest x-ray was clear. Patient is been admitted for further evaluation, management and treatment. Review of Systems Review of Systems: Arash cage pain, bilateral hip pain, lower back pain, thigh pain. Constitutional: Constitutional: Denies chills, Denies fever(s) and Denies malaise Eyes: Eyes: Denies change in vision ENT: Denies dysphagia, Denies vertigo, Denies dizziness, Denies odynophagia and Denies disequilibrium Cardiovascular: Cardiovascular: Denies chest pain, Denies syncope, Denies irregular heart rhythm, Denies lightheadedness and Denies palpitations Respiratory: Respiratory: Denies chest congestion, Denies cough, Denies hemoptysis, Denies pain on inspiration and Denies dyspnea Gastrointestinal: Gastrointestinal: Denies abdominal pain, Denies dyspepsia, Denies heartburn, Denies diarrhea, Denies nausea and Denies vomiting Genitourinary: Genitourinary: Denies dysuria Musculoskeletal: Musculoskeletal: Reports back pain and Reports arthralgias Integumentary/Breasts: Skin/Breast: Denies rash Neurologic: Denies vertigo, Denies dizziness, Denies focal weakness and Denies Sensory deficit (Neuro) Psychiatric: Psychiatric: Reports no additional psychiatric complaints and Reports as per HPI Endocrine: Endocrine: Denies cold intolerance, Denies fatigue, Denies flushing, Denies heat intolerance, Denies polyphagia, Denies polydipsia and Denies palpitations Hematologic/Lymphatic: Hematologic/Lymphatic: Reports no additional hematologic/lymphatic complaints and Reports as per HPI Allergic/Immunologic: Allergic/Immunologic: Reports no additional allergic/immunologic complaints and Reports as per HPI [facility] Past Medical History Medical History Acute chest syndrome Chronic anticoagulation Due to history of DVT and pulmonary embolism. Chronic narcotic use On methadone with oxycodone for chronic pain related to his sickle cell disease. Deep venous thrombosis Noncompliance History of noncompliance with anticoagulation and hydroxyurea. Pulmonary embolism Sickle cell disease, type SC Surgical History Surgical History History of hand surgery Tendon surgery on right 5th finger. Family History Family History Grandparent Diabetes mellitus Acute myocardial infarction Sibling Asthma Sibling Asthma Mother Hypertension Sickle cell trait Son Sickle cell trait Daughter Sickle cell trait Grandparent No problems noted. Other Diabetes mellitus Father Sickle cell trait Social History Social History Social History: The patient lives in [place] with his family. He is on disability due to sickle cell disease and chronic pain. He designates his friend, Keyla Luther, as his surrogate decision maker and he wishes to be a full code. He is a lifelong nonsmoker and denies alcohol and drug use. The patient has 2 children who have the sickle cell trait. Smoking status: Never smoker Alcohol intake: never Substance use: never Spiritual care concerns: No Agree to blood products: Yes Meds Home Medications and Allergies Home Medications Medication Instructions Recorded Confirmed Type folic acid 1 mg tablet 1 mg PO DAILY 02/16/19 11/12/21 History methadone 10 mg tablet 10 mg PO TID 08/13
[2021-11-12 21:46] LABS: SARS-CoV-2 RNA PCR Negative
--- NOTE | 2021-11-12 21:57 | PC.NURSE ---
Per Richard Diaz, ED PLATE FURNACE OPERATOR, admitting hospitalist is aware that pt has no IV access at this time, and all staff present are unable to obtain access. HS notified of same when this RN requesting bed assignment.
--- NOTE | 2021-11-13 00:18 | PC.NURSE ---
WHILE RECONCILING THE PT MEDS HE STATED THAT HE TAKES HYDROXYUREA BUT DOES NOT KNOW THE DOSE OR FREQUENCY BECAUSE HE DOES NOT TAKE IT ALL THE TIME. I SAW IN THE DR NOTES HE HAS HX OF BEING NON COMPLAINT WITH THIS MEDICATION
[2021-11-13] MEDS: HYDROmorphone HCL INJ (*CRX) 1 MG/ML SYR 2 MG IM ×2 (04:57→09:48)
[2021-11-13 06:15] VITALS: BP 138/78; PULSE 92; RESP 16; TEMP 36.6; O2SAT 96
[2021-11-13 08:30] LABS: INR 2.4; Prothrombin Time 24.9 Seconds (11.1-14.7)
[2021-11-13] MEDS: oxyCODONE/ACETAMINOPHEN (*CRX) 10-325 MG TABLET 1 TAB PO ×4 (08:33→23:50)
[2021-11-13] MEDS: FOLIC ACID 1 MG TABLET PO (08:33)
--- NOTE | 2021-11-13 09:41 | PM.IMPN ---
Progress Note: A&P Assessment and Plan (1) Vaso-occlusive pain due to sickle cell disease: Code(s): D57.00 - Hb-SS disease with crisis, unspecified Status: Acute Assessment and Plan: - Continue pain management. - IVF of NS at 100 ml/hr. - Continue to monitor labs and VS. - Continue Warfarin for anticoagulation. (2) Sickle cell anemia with crisis: Code(s): D57.00 - Hb-SS disease with crisis, unspecified Status: Acute Assessment and Plan: - Monitor labs and VS - Transfuse as needed. Pt. is agreeable to transfusion if needed. Time Spent With Patient Time with patient: 15 - 25 minutes Subjective Date/time seen: 11/13/21 0900 This pleasant 36 year old male patient was evaluated at the bedside today in interval assessment. He continues to complain of having widespread pain. He denies any dyspnea and he denies any N/V/D. He reports that the pain he is having feels like a typical crisis pain for him. Review of Systems Review of Systems: All systems reviewed & are unremarkable except as noted in HPI and below Exam Const: General: uncomfortable (Secondary to pain.) HENMT: General nose exam: Normal nares present and no epistaxis Mouth: Yes moist mucous membranes Eyes: General: appearance normal, both eyes and all related structures Sclera: sclerae normal and normal sclerae Pupils: Equal, round and reactive pupils present EOM: EOMs intact bilaterally Neck: Neck: supple and no JVD Thyroid: thyroid normal Lymphatic: lymphadenopathy not noted Resp: Effort & Inspection: normal respiratory effort Auscultation: clear to auscultation bilaterally Cardio: Rate: regular rate Rhythm: regular rhythm Heart sounds: no gallops, no murmurs and no rubs GI: Inspection: non-distended GI Palp: Yes Soft to palpation, No Tenderness to palpation present (GI) and No Guarding due to palpation present (GI) Auscultation: normal bowel sounds Skin: General skin exam: normal color, no rashes or lesions noted and no erythema Lesions: no lesions noted Rashes: no rashes noted Wounds: no wounds Neuro: General: gait normal Speech: normal speech Motor exam (neuro): 5/5 motor strength present throughout and Normal motor muscle tone present throughout Sensory Exam: normal sensation Extrem: General: normal to inspection, no edema and no pedal edema Psych: Mental Status: mental status grossly normal Affect: normal affect Objective Data Vital Signs Vital Signs: Vital Signs - 24 hr 11/12/21 14:16 11/12/21 19:43 11/12/21 19:54 Temperature 97.9 F Pulse Rate 85 91 Respiratory Rate 16 18 Blood Pressure 118/73 120/74 Pulse Oximetry 98 100 Oxygen Delivery Room Air Oxygen Flow Rate 11/12/21 21:11 11/12/21 21:16 11/12/21 22:47 Temperature Pulse Rate 92 88 Respiratory Rate 18 18 Blood Pressure 118/72 Pulse Oximetry 99 98 Oxygen Delivery Oxygen Flow Rate 11/12/21 23:28 11/12/21 23:38 11/13/21 06:15 Temperature 99 F 97.9 F Pulse Rate 88 93 92 Respiratory Rate 18 20 16 Blood Pressure 127/77 138/78 Pulse Oximetry 98 98 96 Oxygen Delivery Nasal Cannula Oxygen Flow Rate 1 Intake/Output Intake/Output: Intake & Output 11/10/21 11/11/21 11/12/21 11/13/21 23:59 23:59 23:59 23:59 Intake Total 300 Balance 300 Meds/Results Medications: Active Medications Generic Name Dose Route Start Last Admin Trade Name Freq PRN Reason Stop Dose Admin Folic Acid 1 mg 11/13/21 09:00 11/13/21 08:33 Folic Acid 1 Mg Tablet PO 1 mg DAILY [facility] Administration Hydromorphone HCl 2 mg 11/12/21 23:39 11/13/21 04:57 Hydromorphone Hcl Inj (*Crx) 1 Mg/Ml Syr IM 2 mg Q3H PRN Administration Pain Rated 7-10 Hydromorphone HCl 4 mg 11/12/21 23:39 Hydromorphone Hcl (*Crx) 4 Mg Tablet PO Q6H PRN Pain Rated 4-6 Sodium Chloride 1,000 mls @ 100 mls/hr 11/13/21 09:30 Normal Saline Iv IV CONT .Q10H [facility] Ibuprofen 800 mg 08
[2021-11-13 09:50] VITALS: BP 121/65; PULSE 87; RESP 16; TEMP 36.6; O2SAT 96
[2021-11-13] MEDS: SODIUM CHLORIDE 0.9% IV 1,000 ML 100 ML IV CONT ×2 (09:52→19:51)
[2021-11-13 13:30] VITALS: BP 140/84; PULSE 91; RESP 18; TEMP 37.1; O2SAT 97
[2021-11-13] MEDS: HYDROmorphone HCL INJ (*CRX) 1 MG/ML SYR 3 MG IV PUSH ×4 (13:30→22:33)
[2021-11-13] MEDS: WARFARIN (*PBKC) 2 MG TABLET 4 MG PO (16:33)
[2021-11-13] MEDS: WARFARIN (*PBKC) 10 MG TABLET PO (16:34)
--- NOTE | 2021-11-13 17:41 | PDONCCN ---
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 He was last admitted to the hospital August 19, 2021. Patient also has history of recurrent pulmonary embolism and long-term anticoagulation therapy with warfarin. He is also taking hydroxyurea with folic acid daily. He came into the hospital with generalized musculoskeletal discomfort mainly involving the ribs and the lower extremities. Chest x-ray showed no acute cardiopulmonary disease. Labs showed hemoglobin of 9.9 with elevated WBC count. Patient has been started on IV hydration as well as IV Dilaudid some improvement in the pain control. He denies any other new complaints. Review of Systems - Review of Systems All systems reviewed & are unremarkable except as noted in HPI and bel - Neurologic Denies vertigo, Denies syncope, Denies focal weakness, Denies sensory deficit, Denies disequilibrium [facility] Medical History: Medical History (Last Reviewed 11/12/21 @ 17:02 by Chu Diaz APRN) Acute chest syndrome Chronic anticoagulation Due to history of DVT and pulmonary embolism. Chronic narcotic use On methadone with oxycodone for chronic pain related to his sickle cell disease. Deep venous thrombosis Noncompliance History of noncompliance with anticoagulation and hydroxyurea. Pulmonary embolism Sickle cell disease, type SC Surgical History: Surgical History (Last Reviewed 11/12/21 @ 17:02 by Chu Diaz APRN) History of hand surgery Tendon surgery on right 5th finger. Family History: Family History (Last Reviewed 11/12/21 @ 22:59 by Eulalia Barahona RN) Grandparent Diabetes mellitus Acute myocardial infarction Sibling Asthma Sibling Asthma Mother Hypertension Sickle cell trait Son Sickle cell trait Daughter Sickle cell trait Grandparent No problems noted. Other Diabetes mellitus Father Sickle cell trait - Social History Social History: Social History (Last Reviewed 11/12/21 @ 17:02 by Chu Diaz APRN) Alcohol Use: Alcohol intake: never Substance Use: Substance use: never Others: Spiritual care concerns: No Agree to blood products: Yes Smoking Status: Smoking status: Never smoker Meds Home Medications Medication Instructions Recorded Confirmed Type folic acid 1 mg tablet 1 mg PO DAILY 02/16/19 11/12/21 History methadone 10 mg tablet 10 mg PO TID 08/22/20 11/12/21 History oxycodone-acetaminophen 10 mg-325 1 tablet PO BID PRN Pain, Moderate 08/22/20 11/12/21 History mg tablet warfarin 10 mg tablet 10 mg PO DAILY 08/22/20 11/12/21 History warfarin 2 mg tablet 4 mg PO DAILY #30 tabs 10/16/21 11/12/21 Rx ibuprofen 800 mg tablet 800 mg PO Q6H PRN Pain 11/12/21 11/12/21 History Allergies Allergy/AdvReac Type Severity Reaction Status Date / Time Fish Containing Products Allergy Intermediate Itching Verified 08/19/21 09:03 Results - Labs CBC & Chem 7: 11/12/21 19:43 11/12/21 19:43 Labs: Short CBC 11/12/21 Range/Units 19:43 WBC 13.3 H (4.5-10.0) K/mm3 Hgb 9.9 L (14.0-18.0) g/dL Hct 28.6 L (42.0-52.0) % Plt Count 349 (150-375) k/mm3 BMP 11/12/21 11/12/21 19:43 19:43 Sodium Cancelled 143 Potassium Cancelled 4.0 Chloride Cancelled 106 Carbon Dioxide Cancelled 26 BUN Cancelled 7 L Creatinine Cancelled 0.70 Glucose Cancelled 109 Calcium Cancelled 8.7 Cardiac Enzymes 11/12/21 Range/Units 19:43 Troponin I < 0.012 (0.000-0.034) ng/mL Liver Function 11/12/21 11/12/21 Range/Units 19:43 19:43 Total Bilirubin Cancelled 1.0 AST Cancelled 36 ALT Cancelled 23 Alkaline Phosphatase Cancelled 9
[2021-11-13 18:05] VITALS: BP 132/75; PULSE 93; RESP 18; TEMP 35.6; O2SAT 97
[2021-11-13 18:26] LABS: Lactate Dehydrogenase 736 U/L (313-618)
[2021-11-13 20:00] VITALS: BP 134/76; PULSE 89; PULSE 93; RESP 18; RESP 20; TEMP 36.4; O2SAT 97
[2021-11-14] VITALS: BP 116/64; PULSE 90; RESP 18; TEMP 36.4; O2SAT 99
[2021-11-14] MEDS: HYDROmorphone HCL INJ (*CRX) 1 MG/ML SYR 3 MG IV PUSH ×8 (01:51→23:50)
[2021-11-14 03:25] VITALS: BP 126/70; PULSE 87; RESP 20; TEMP 36.6; O2SAT 97
[2021-11-14] MEDS: SODIUM CHLORIDE 0.9% IV 1,000 ML 100 ML IV CONT ×2 (05:45→15:45)
[2021-11-14] MEDS: oxyCODONE/ACETAMINOPHEN (*CRX) 10-325 MG TABLET 1 TAB PO ×4 (05:47→23:38)
[2021-11-14 05:59] LABS: Basophils Percent Auto 0.2 % (0.2-1.2); Eosinophils Absolute Auto 0.2 K/mm3 (0-0.3); Eosinophils Percent Auto 1.5 % (0-4.4); Hematocrit 28.7 % (42.0-52.0); Hemoglobin 10.1 g/dL (14.0-18.0); Immature Granulocyte Absolute 0.07 K/mm3 (0.00-0.031); Immature Granulocyte Percent A 0.5 % (0-0.5); Immature Platelet Fraction Pct 4.8 % (0.9-11.2); Immature Reticulocyte Fraction 24.7 % (3.0-15.9); Lymphocytes Absolute Auto 3.42 K/mm3 (0.9-3.2); Lymphocytes Percent Auto 22.9 % (18.3-44.2); Mean Corpuscular HGB Conc 35.2 g/dl (32-36); Mean Corpuscular Hemoglobin 30.9 pg (26-34); Mean Corpuscular Volume 87.8 fl (80-100); Mean Platelet Volume 10.3 fl (7.4-10.4); Monocytes Absolute Auto 1.4 K/mm3 (0.1-0.6); Monocytes Percent Auto 9.4 % (2.6-8.5); Neutrophils Absolute Auto 9.8 K/mm3 (1.3-6.7); Neutrophils Percent Auto 65.5 % (45.5-73.1); Nucleated Red Blood Cells Perc 0.2 % (0.0-0.2); Platelet Count Result 316 k/mm3 (150-375); Red Blood Count 3.27 M/mm3 (4.6-6.20); Red Cell Distribution Width 14.2 % (11.5-14.5); Reticulocyte Percent 5.04 % (0.7-4.3); Reticulocytes Absolute 0.16 B/L (32.2-175.7); White Blood Count 14.9 K/mm3 (4.5-10.0)
[2021-11-14 06:05] LABS: Prothrombin Time 30.2 Seconds (11.1-14.7)
[2021-11-14 06:15] LABS: Alanine Aminotransferase 18 U/L (6-50); Albumin Level 4.4 g/dL (3.5-5.1); Alkaline Phosphatase 84 U/L (38-126); Anion Gap 9 mmol/L (8-16); Aspartate Amino Transferase 31 U/L (17-59); Blood Urea Nitrogen 5 mg/dL (9-20); Calcium 8.4 mg/dL (8.4-10.2); Carbon Dioxide 26 mmol/L (22-30); Chloride 105 mmol/L (98-107); Estimated CRCL calculation 127 ml/min; Estimated Glomerular Filt Rate > 60; Glucose 124 mg/dL (65-110); Magnesium 1.9 mg/dL (1.6-2.3); Potassium 3.8 mmol/L (3.4-5.0); Sodium 140 mmol/L (137-145)
[2021-11-14 08:00] VITALS: BP 128/72; PULSE 88; RESP 18; TEMP 36.6; O2SAT 98
[2021-11-14] MEDS: FOLIC ACID 1 MG TABLET PO (08:08)
[2021-11-14] MEDS: HYDROXYUREA (*CHEMO) 500 MG CAPSULE PO (08:08)
[2021-11-14 12:00] VITALS: BP 128/80; PULSE 85; RESP 18; TEMP 36.5; O2SAT 98
--- NOTE | 2021-11-14 12:51 | PM.IMPN ---
Progress Note: A&P Assessment and Plan (1) Vaso-occlusive pain due to sickle cell disease: Code(s): D57.00 - Hb-SS disease with crisis, unspecified Status: Acute Assessment and Plan: - Continue pain management. - IVF of NS at 100 ml/hr. - Continue to monitor labs and VS. - Continue Warfarin for anticoagulation. - continue hydroxyurea 500 mg every morning. (2) Sickle cell anemia with crisis: Code(s): D57.00 - Hb-SS disease with crisis, unspecified Status: Acute Assessment and Plan: - Monitor labs and VS - Transfuse as needed. Pt. is agreeable to transfusion if needed. Time Spent With Patient Time with patient: 15 - 25 minutes Subjective Date/time seen: 11/14/21 0730 Patient was examined at the bedside today in interval assessment. He reports that his pain is minimally improved as compared to yesterday. He denies any new complaints of chest pain, dyspnea, nausea, vomiting, diarrhea. He does acknowledge he was able to stand at the bedside today to urinate for the 1st time a couple of days. Patient was evaluated by Oncology yesterday he recommended continuing current treatment. No new symptoms to report. Review of Systems Review of Systems: All systems reviewed & are unremarkable except as noted in HPI and below Exam Const: General: uncomfortable Other: Secondary to pain HENMT: General nose exam: Normal nares present and no epistaxis Mouth: Yes moist mucous membranes Eyes: General: appearance normal, both eyes and all related structures Sclera: sclerae normal and normal sclerae Pupils: Equal, round and reactive pupils present EOM: EOMs intact bilaterally Neck: Neck: supple and no JVD Thyroid: thyroid normal Carotids: no bruits Lymphatic: lymphadenopathy not noted Resp: Effort & Inspection: normal respiratory effort Auscultation: clear to auscultation bilaterally Cardio: Rate: regular rate Rhythm: regular rhythm Heart sounds: no gallops, no murmurs and no rubs GI: Inspection: non-distended GI Palp: Yes Soft to palpation, No Tenderness to palpation present (GI) and No Guarding due to palpation present (GI) Auscultation: normal bowel sounds Skin: General skin exam: normal color and no rashes or lesions noted Wounds: no wounds Neuro: General: gait normal Speech: normal speech Motor exam (neuro): 5/5 motor strength present throughout and Normal motor muscle tone present throughout Sensory Exam: normal sensation Extrem: General: normal to inspection, no edema and no pedal edema Psych: Mental Status: mental status grossly normal Affect: normal affect Objective Data Vital Signs Vital Signs: Vital Signs - 24 hr 11/13/21 13:30 11/13/21 18:05 11/13/21 20:00 Temperature 98.8 F 96.0 F L Pulse Rate 91 93 93 Respiratory Rate 18 18 18 Blood Pressure 140/84 132/75 Pulse Oximetry 97 97 97 Oxygen Delivery Room Air 11/13/21 20:00 11/14/21 00:00 11/14/21 03:25 Temperature 97.6 F 97.6 F 97.9 F Pulse Rate 89 90 87 Respiratory Rate 20 18 20 Blood Pressure 134/76 116/64 126/70 Pulse Oximetry 97 99 97 Oxygen Delivery 11/14/21 08:00 Temperature 97.8 F Pulse Rate 88 Respiratory Rate 18 Blood Pressure 128/72 Pulse Oximetry 98 Oxygen Delivery Intake/Output Intake/Output: Intake & Output 11/11/21 11/12/21 11/13/21 11/14/21 23:59 23:59 23:59 23:59 Intake Total 2260 1290 Output Total 1325 500 Balance 935 790 Meds/Results Medications: Active Medications Generic Name Dose Route Start Last Admin Trade Name Freq PRN Reason Stop Dose Admin Folic Acid 1 mg 11/13/21 09:00 11/14/21 08:08 Folic Acid 1 Mg Tablet PO 1 mg DAILY [facility] Administration Hydromorphone HCl 4 mg 11/12/21 23:39 Hydromorphone Hcl (*Crx) 4 Mg Tablet PO Q6H PRN Pain Rated 4-6 Hydromorphone HCl 3 mg 11/13/21 12:49 11/14/21 11:09 Hydromorphone Hcl Inj (*Crx) 1 Mg/Ml Syr IV PUSH 3 mg Q3H PRN Administration Pain Rated 7-
[2021-11-14 16:00] VITALS: BP 118/72; PULSE 88; RESP 20; TEMP 36.6; O2SAT 94
[2021-11-14] MEDS: WARFARIN (*PBKC) 2 MG TABLET 4 MG PO (17:20)
[2021-11-14] MEDS: WARFARIN (*PBKC) 10 MG TABLET PO (17:20)
[2021-11-14 19:37] VITALS: BP 120/61; PULSE 84; RESP 20; TEMP 36.2; O2SAT 98
[2021-11-15] VITALS (7 sets, daily range): BP systolic 116–141; BP diastolic 61–73; PULSE 74–91; RESP 16–20; TEMP 36.1–36.6; O2SAT 96–100
[2021-11-15] MEDS: SODIUM CHLORIDE 0.9% IV 1,000 ML 100 ML IV CONT ×3 (03:14→23:42)
[2021-11-15] MEDS: HYDROmorphone HCL INJ (*CRX) 1 MG/ML SYR 3 MG IV PUSH ×7 (03:15→21:46)
[2021-11-15] MEDS: oxyCODONE/ACETAMINOPHEN (*CRX) 10-325 MG TABLET 1 TAB PO ×4 (05:33→23:42)
[2021-11-15 06:02] LABS: Basophils Absolute Auto 0.1 K/mm3 (0.0-0.1); Basophils Percent Auto 0.4 % (0.2-1.2); Eosinophils Absolute Auto 0.4 K/mm3 (0-0.3); Eosinophils Percent Auto 3.3 % (0-4.4); Hematocrit 29.4 % (42.0-52.0); Hemoglobin 10.1 g/dL (14.0-18.0); Immature Granulocyte Absolute 0.04 K/mm3 (0.00-0.031); Immature Granulocyte Percent A 0.3 % (0-0.5); Immature Platelet Fraction Pct 4.4 % (0.9-11.2); Immature Reticulocyte Fraction 25.9 % (3.0-15.9); Lymphocytes Absolute Auto 3.98 K/mm3 (0.9-3.2); Lymphocytes Percent Auto 34.2 % (18.3-44.2); Mean Corpuscular HGB Conc 34.4 g/dl (32-36); Mean Corpuscular Hemoglobin 30.2 pg (26-34); Mean Platelet Volume 9.9 fl (7.4-10.4); Monocytes Absolute Auto 0.9 K/mm3 (0.1-0.6); Monocytes Percent Auto 7.6 % (2.6-8.5); Neutrophils Absolute Auto 6.3 K/mm3 (1.3-6.7); Neutrophils Percent Auto 54.2 % (45.5-73.1); Nucleated Red Blood Cells Perc 0.2 % (0.0-0.2); Platelet Count Result 335 k/mm3 (150-375); Red Blood Count 3.34 M/mm3 (4.6-6.20); Red Cell Distribution Width 14.2 % (11.5-14.5); Reticulocyte Hemoglobin Conten 30.2 pg (28.2-35.7); Reticulocyte Percent 5.02 % (0.7-4.3); Reticulocytes Absolute 0.17 B/L (32.2-175.7); White Blood Count 11.6 K/mm3 (4.5-10.0)
[2021-11-15 06:12] LABS: INR 3.3; Prothrombin Time 32.8 Seconds (11.1-14.7)
[2021-11-15 06:20] LABS: Alanine Aminotransferase 17 U/L (6-50); Albumin Level 4.4 g/dL (3.5-5.1); Alkaline Phosphatase 79 U/L (38-126); Anion Gap 11 mmol/L (8-16); Aspartate Amino Transferase 31 U/L (17-59); Bilirubin,Total 0.9 mg/dL (0.2-1.3); Blood Urea Nitrogen 5 mg/dL (9-20); Calcium 8.4 mg/dL (8.4-10.2); Carbon Dioxide 24 mmol/L (22-30); Chloride 105 mmol/L (98-107); Estimated CRCL calculation 146 ml/min; Estimated Glomerular Filt Rate > 60; Glucose 121 mg/dL (65-110); Magnesium 2.1 mg/dL (1.6-2.3); Potassium 3.8 mmol/L (3.4-5.0); Sodium 140 mmol/L (137-145)
[2021-11-15 06:58] LABS: Anisocytosis 1+ (NORMAL); Platelet Estimate Adequate (Adequate); Poikilocytosis 1+ (NORMAL); Sickle Cells 1+ (NORMAL); Target Cells 1+ (NORMAL)
[2021-11-15 06:59] LABS: Ovalocytes 1+ (NORMAL)
[2021-11-15] MEDS: HYDROXYUREA (*CHEMO) 500 MG CAPSULE PO (09:18)
[2021-11-15] MEDS: FOLIC ACID 1 MG TABLET PO (09:18)
--- NOTE | 2021-11-15 11:52 | PM.IMPN ---
Progress Note: A&P Assessment and Plan (1) Vaso-occlusive pain due to sickle cell disease: Code(s): D57.00 - Hb-SS disease with crisis, unspecified Status: Acute Assessment and Plan: - Continue pain management. - IVF of NS at 100 ml/hr. - Continue to monitor labs and VS. - Continue Warfarin for anticoagulation, INR this AM was 3.3, hold Coumadin tonight and recheck INR in the AM. Restart Coumadin tomorrow. - continue hydroxyurea 500 mg every morning. (2) Sickle cell anemia with crisis: Code(s): D57.00 - Hb-SS disease with crisis, unspecified Status: Acute Assessment and Plan: - Monitor labs and VS - Transfuse as needed. Pt. is agreeable to transfusion if needed. Time Spent With Patient Time with patient: 15 - 25 minutes Subjective Date/time seen: 11/15/21 0750 This pt is examined at the bedside today in interval assessment. He has improvement of his overall pain and states that he is moving around a little better. He has no N/V/D and no other complaints to report. He remains stable and his Reticulocyte is coming down. He denies any CP, Dyspnea, N/V/D or urinary complaints. Review of Systems Review of Systems: All systems reviewed & are unremarkable except as noted in HPI and below Exam Const: General: comfortable and no acute distress Other: Secondary to pain HENMT: General nose exam: Normal nares present and no epistaxis Mouth: Yes moist mucous membranes Eyes: General: appearance normal, both eyes and all related structures Sclera: sclerae normal and normal sclerae Pupils: Equal, round and reactive pupils present EOM: EOMs intact bilaterally Neck: Neck: supple and no JVD Thyroid: thyroid normal Carotids: no bruits Lymphatic: lymphadenopathy not noted Resp: Effort & Inspection: normal respiratory effort Auscultation: clear to auscultation bilaterally Cardio: Rate: regular rate Rhythm: regular rhythm Heart sounds: no gallops, no murmurs and no rubs GI: Inspection: non-distended Auscultation: normal bowel sounds Skin: General skin exam: normal color, no rashes or lesions noted and no erythema Lesions: no lesions noted Rashes: no rashes noted Wounds: no wounds Neuro: General: gait normal Cranial nerves: Yes Equal, round and reactive pupils present Speech: normal speech Motor exam (neuro): 5/5 motor strength present throughout and Normal motor muscle tone present throughout Sensory Exam: normal sensation Extrem: General: normal to inspection, no edema and no pedal edema Psych: Mental Status: mental status grossly normal Affect: normal affect Objective Data Vital Signs Vital Signs: Vital Signs - 24 hr 11/14/21 12:00 11/14/21 16:00 11/14/21 19:37 Temperature 97.7 F 97.8 F 97.2 F L Pulse Rate 85 88 84 Respiratory Rate 18 20 20 Blood Pressure 128/80 118/72 120/61 Pulse Oximetry 98 94 98 Oxygen Delivery 11/14/21 20:00 11/15/21 00:00 11/15/21 04:00 Temperature 97.6 F 98 F Pulse Rate 82 86 Respiratory Rate 20 20 Blood Pressure 116/61 124/65 Pulse Oximetry 97 96 Oxygen Delivery Room Air 11/15/21 07:55 Temperature 97.5 F L Pulse Rate 91 Respiratory Rate 16 Blood Pressure 141/68 H Pulse Oximetry 99 Oxygen Delivery Intake/Output Intake/Output: Intake & Output 11/12/21 11/13/21 11/14/21 11/15/21 23:59 23:59 23:59 23:59 Intake Total 2260 2612 1630 Output Total 1325 1950 1500 Balance 935 662 130 Meds/Results Medications: Active Medications Generic Name Dose Route Start Last Admin Trade Name Freq PRN Reason Stop Dose Admin Folic Acid 1 mg 11/13/21 09:00 11/15/21 09:18 Folic Acid 1 Mg Tablet PO 1 mg DAILY [facility] Administration Hydromorphone HCl 4 mg 11/12/21 23:39 Hydromorphone Hcl (*Crx) 4 Mg Tablet PO Q6H PRN Pain Rated 4-6 Hydromorphone HCl 3 mg 11/13/21 12:49 11/15/21 09:18 Hydromorphone Hcl Inj (*Crx) 1 Mg/Ml Syr IV PUSH 3 mg Q3H PRN Administration Pain Ra
[2021-11-16] MEDS: HYDROmorphone HCL INJ (*CRX) 1 MG/ML SYR 3 MG IV PUSH ×7 (00:55→22:00)
[2021-11-16 04:24] VITALS: BP 119/77; PULSE 86; RESP 16; TEMP 36.2; O2SAT 96
[2021-11-16] MEDS: oxyCODONE/ACETAMINOPHEN (*CRX) 10-325 MG TABLET 1 TAB PO ×3 (05:53→17:58)
[2021-11-16 06:43] LABS: Basophils Absolute Auto 0.1 K/mm3 (0.0-0.1); Basophils Percent Auto 0.9 % (0.2-1.2); Eosinophils Absolute Auto 0.5 K/mm3 (0-0.3); Eosinophils Percent Auto 5.5 % (0-4.4); Hematocrit 28.1 % (42.0-52.0); Hemoglobin 10.1 g/dL (14.0-18.0); Immature Granulocyte Absolute 0.02 K/mm3 (0.00-0.031); Immature Granulocyte Percent A 0.2 % (0-0.5); Immature Platelet Fraction Pct 4.7 % (0.9-11.2); Lymphocytes Absolute Auto 3.78 K/mm3 (0.9-3.2); Lymphocytes Percent Auto 39.8 % (18.3-44.2); Mean Corpuscular HGB Conc 35.9 g/dl (32-36); Mean Corpuscular Hemoglobin 31.4 pg (26-34); Mean Corpuscular Volume 87.3 fl (80-100); Monocytes Absolute Auto 0.6 K/mm3 (0.1-0.6); Monocytes Percent Auto 6.7 % (2.6-8.5); Neutrophils Absolute Auto 4.4 K/mm3 (1.3-6.7); Neutrophils Percent Auto 46.9 % (45.5-73.1); Nucleated Red Blood Cells Perc 0.2 % (0.0-0.2); Platelet Count Result 346 k/mm3 (150-375); Red Blood Count 3.22 M/mm3 (4.6-6.20); Red Cell Distribution Width 14.2 % (11.5-14.5); White Blood Count 9.5 K/mm3 (4.5-10.0)
[2021-11-16 06:47] LABS: INR 2.9; Prothrombin Time 29.2 Seconds (11.1-14.7)
[2021-11-16 06:54] LABS: Alanine Aminotransferase 16 U/L (6-50); Albumin Level 4.2 g/dL (3.5-5.1); Alkaline Phosphatase 75 U/L (38-126); Anion Gap 9 mmol/L (8-16); Aspartate Amino Transferase 26 U/L (17-59); Blood Urea Nitrogen 7 mg/dL (9-20); Calcium 8.9 mg/dL (8.4-10.2); Carbon Dioxide 25 mmol/L (22-30); Chloride 105 mmol/L (98-107); Estimated CRCL calculation 127 ml/min; Estimated Glomerular Filt Rate > 60; Glucose 102 mg/dL (65-110); Magnesium 2.1 mg/dL (1.6-2.3); Potassium 3.8 mmol/L (3.4-5.0); Sodium 139 mmol/L (137-145)
[2021-11-16] MEDS: SODIUM CHLORIDE 0.9% IV 1,000 ML 100 ML IV CONT ×2 (07:56→18:41)
[2021-11-16 08:08] LABS: Immature Reticulocyte Fraction 31.8 % (3.0-15.9); Reticulocyte Percent 4.75 % (0.7-4.3); Reticulocytes Absolute 0.16 B/L (32.2-175.7)
[2021-11-16 08:09] LABS: Hypochromasia 1+ (NORMAL); Platelet Estimate Adequate (Adequate); Reticulocyte Hemoglobin Conten 26.1 pg (28.2-35.7)
[2021-11-16 08:10] LABS: Anisocytosis 1+ (NORMAL); Ovalocytes 1+ (NORMAL); Sickle Cells 1+ (NORMAL); Target Cells 2+ (NORMAL)
--- NOTE | 2021-11-16 08:23 | ED.GENADULT ---
HPI - General Adult General Chief complaint: Unspecified Stated complaint: sickle cell pain Time Seen by Provider: 11/12/21 16:50 History of Present Illness HPI narrative: 36-year-old male with a history of sickle cell anemia presented to the emergency room for evaluation of joint pain, chest pain. Patient states that he has been taking his methadone and Percocet regularly to manage a sickle cell crisis, stating that its not working. Patient was recently hospitalized for similar symptoms Related Data Home Medications Medication Instructions Recorded Confirmed folic acid 1 mg tablet 1 mg PO DAILY 02/16/19 11/12/21 methadone 10 mg tablet 10 mg PO TID 08/22/20 11/12/21 oxycodone-acetaminophen 10 mg-325 1 tablet PO BID PRN Pain, Moderate 08/22/20 11/12/21 mg tablet warfarin 10 mg tablet 10 mg PO DAILY 08/22/20 11/12/21 ibuprofen 800 mg tablet 800 mg PO Q6H PRN Pain 11/12/21 11/12/21 Allergies Allergy/AdvReac Type Severity Reaction Status Date / Time Fish Containing Products Allergy Intermediate Itching Verified 08/19/21 09:03 Review of Systems Review of Systems: CONSTITUTIONAL: Denies fever, chills, or sweats. EYES: Denies visual changes, redness, or discharge. ENT: Denies rhinorrhea, congestion, sore throat, or otalgia. CARDIOVASCULAR: Reports chest pain RESPIRATORY: Denies cough or dyspnea. GASTROINTESTINAL: Denies abdominal pain, nausea, vomiting, or diarrhea. GENITOURINARY: Denies dysuria or hematuria. SKIN: Denies rash or itching. MUSCULOSKELETAL: Reports back pain, joint pain, and myalgia. NEUROLOGIC: Denies headache, numbness, dizziness, or weakness. PSYCHIATRIC: Denies anxiety or depression. [facility] Past Medical History Medical History Acute chest syndrome Chronic anticoagulation Due to history of DVT and pulmonary embolism. Chronic narcotic use On methadone with oxycodone for chronic pain related to his sickle cell disease. Deep venous thrombosis Noncompliance History of noncompliance with anticoagulation and hydroxyurea. Pulmonary embolism Sickle cell disease, type SC Surgical History Surgical History History of hand surgery Tendon surgery on right 5th finger. Family History Family History Grandparent Diabetes mellitus Acute myocardial infarction Sibling Asthma Sibling Asthma Mother Hypertension Sickle cell trait Son Sickle cell trait Daughter Sickle cell trait Grandparent No problems noted. Other Diabetes mellitus Father Sickle cell trait Social History Social History Social History: The patient lives in [place] with his family. He is on disability due to sickle cell disease and chronic pain. He designates his friend, Keyla Luther, as his surrogate decision maker and he wishes to be a full code. He is a lifelong nonsmoker and denies alcohol and drug use. The patient has 2 children who have the sickle cell trait. Smoking status: Never smoker Alcohol intake: never Substance use: never Spiritual care concerns: No Agree to blood products: Yes Exam Narrative: GENERAL: Well-appearing, well-nourished, no physical limitations, and in no acute distress. HEAD: Normocephalic, atraumatic. EYES: Conjunctivae normal, PERRLA and EOMI. ENT: External nose normal, Nares clear, no rhinorrhea or epistaxis. Mucous membranes moist. Oropharynx without tonsillar hypertrophy exudate or other lesions. External ears normal, bilateral TMs normal bilaterally NECK: Supple. No adenopathy or masses. No carotid bruits or JVD CHEST: Clear to auscultation. No respiratory distress. No wheezes rales or rhonchi. No tenderness. HEART: Regular rate and rhythm. No murmur heard. Normal peripheral pulses. ABDOMEN: Soft, nontender, nondistended, normal active bowel so
[2021-11-16] MEDS: HYDROXYUREA (*CHEMO) 500 MG CAPSULE PO (08:43)
[2021-11-16] MEDS: FOLIC ACID 1 MG TABLET PO (08:43)
--- NOTE | 2021-11-16 09:18 | PM.IMPN ---
Progress Note: A&P Assessment and Plan (1) Vaso-occlusive pain due to sickle cell disease: Code(s): D57.00 - Hb-SS disease with crisis, unspecified Status: Acute Assessment and Plan: - Continue pain management. Pt. endorses improvement in pain, and increased toleration of mobility. - IVF of NS at 100 ml/hr continued. - Continue to monitor labs and VS and adjust POC accordingly. - Continue Warfarin for anticoagulation, INR this AM was 2.9, Coumadin was held yesterday and recheck of INR this AM was 2.9, so Coumadin was reordered for dosing today. - continue hydroxyurea 500 mg every morning. (2) Sickle cell anemia with crisis: Code(s): D57.00 - Hb-SS disease with crisis, unspecified Status: Acute Assessment and Plan: - Monitor labs and VS - Transfuse as needed. Pt. is agreeable to transfusion if needed. Time Spent With Patient Time with patient: 15 - 25 minutes Subjective Date/time seen: 11/16/21 0905 This pt. was examined at the bedside this AM in no acute distress. He reports that his pain is improving but he feels that he is not back to his baseline yet. He denies any new complaints such as CP, dyspnea, N/V/D or any headache, dizziness or lightheadedness. Review of Systems Review of Systems: All systems reviewed & are unremarkable except as noted in HPI and below Exam Const: General: uncomfortable (But improving.) HENMT: General nose exam: Normal nares present and no epistaxis Mouth: Yes moist mucous membranes Eyes: General: appearance normal, both eyes and all related structures Sclera: sclerae normal Pupils: Equal, round and reactive pupils present EOM: EOMs intact bilaterally Neck: Neck: supple and no JVD Thyroid: thyroid normal Carotids: no bruits Lymphatic: lymphadenopathy not noted Resp: Effort & Inspection: normal respiratory effort Auscultation: clear to auscultation bilaterally Cardio: Rate: regular rate Rhythm: regular rhythm Heart sounds: no gallops, no murmurs and no rubs GI: Inspection: non-distended GI Palp: Yes Soft to palpation, No Tenderness to palpation present (GI) and No Guarding due to palpation present (GI) Auscultation: normal bowel sounds Skin: General skin exam: normal color and no rashes or lesions noted Wounds: no wounds Neuro: General: gait normal Speech: normal speech Motor exam (neuro): 5/5 motor strength present throughout and Normal motor muscle tone present throughout Sensory Exam: normal sensation Extrem: General: normal to inspection, no edema and no pedal edema Psych: Mental Status: mental status grossly normal Affect: normal affect Objective Data Vital Signs Vital Signs: Vital Signs - 24 hr 11/15/21 12:00 11/15/21 16:00 11/15/21 21:58 Temperature 97.2 F L 97 F L 97.3 F L Pulse Rate 82 74 81 Respiratory Rate 18 16 16 Blood Pressure 129/65 120/69 120/73 Pulse Oximetry 99 100 99 Oxygen Delivery 11/15/21 23:16 11/16/21 04:24 11/16/21 08:00 Temperature 97.6 F 97.2 F L Pulse Rate 77 86 Respiratory Rate 16 16 Blood Pressure 118/66 119/77 Pulse Oximetry 100 96 Oxygen Delivery Room Air Intake/Output Intake/Output: Intake & Output 11/13/21 11/14/21 11/15/21 11/16/21 23:59 23:59 23:59 23:59 Intake Total 2260 2612 4850 1150 Output Total 1325 1950 2775 Balance 977 309 9806 1150 Meds/Results Medications: Active Medications Generic Name Dose Route Start Last Admin Trade Name Freq PRN Reason Stop Dose Admin Folic Acid 1 mg 11/13/21 09:00 11/16/21 08:43 Folic Acid 1 Mg Tablet PO 1 mg DAILY [facility] Administration Hydromorphone HCl 4 mg 11/12/21 23:39 Hydromorphone Hcl (*Crx) 4 Mg Tablet PO Q6H PRN Pain Rated 4-6 Hydromorphone HCl 3 mg 11/13/21 12:49 11/16/21 07:48 Hydromorphone Hcl Inj (*Crx) 1 Mg/Ml Syr IV PUSH 3 mg Q3H PRN Administration Pain Rated 7-10 Hydroxyurea 500 mg 11/14/21 09:00 11/16/21 08:43 Hydroxyurea (*Chemo) 500 Mg Capsu
[2021-11-16 11:05] VITALS: BP 112/72; PULSE 74; RESP 16; TEMP 36; O2SAT 100
[2021-11-16 14:57] VITALS: BP 124/68; PULSE 91; RESP 16; TEMP 36.8; O2SAT 100
[2021-11-16] MEDS: WARFARIN (*PBKC) 10 MG TABLET PO (17:59)
[2021-11-16] MEDS: WARFARIN (*PBKC) 2 MG TABLET 4 MG PO (17:59)
[2021-11-16 18:59] VITALS: BP 130/64; PULSE 97; RESP 20; TEMP 36.3; O2SAT 96
[2021-11-16 19:25] VITALS: BP 120/72; PULSE 84; RESP 20; TEMP 36.3; O2SAT 97
[2021-11-16 23:40] VITALS: BP 125/70; PULSE 78; RESP 20; TEMP 36.4; O2SAT 99
[2021-11-17] VITALS (9 sets, daily range): BP systolic 118–132; BP diastolic 63–82; PULSE 76–93; RESP 12–20; TEMP 36.1–36.8; O2SAT 95–100
[2021-11-17] MEDS: oxyCODONE/ACETAMINOPHEN (*CRX) 10-325 MG TABLET 1 TAB PO ×4 (01:23→18:17)
[2021-11-17] MEDS: HYDROmorphone HCL INJ (*CRX) 1 MG/ML SYR 3 MG IV PUSH ×7 (01:23→22:51)
[2021-11-17 05:51] LABS: Basophils Absolute Auto 0.1 K/mm3 (0.0-0.1); Basophils Percent Auto 0.9 % (0.2-1.2); Eosinophils Absolute Auto 0.6 K/mm3 (0-0.3); Hematocrit 27.5 % (42.0-52.0); Hemoglobin 9.8 g/dL (14.0-18.0); Immature Granulocyte Absolute 0.03 K/mm3 (0.00-0.031); Immature Granulocyte Percent A 0.3 % (0-0.5); Lymphocytes Percent Auto 37.2 % (18.3-44.2); Mean Corpuscular HGB Conc 35.6 g/dl (32-36); Mean Platelet Volume 10.2 fl (7.4-10.4); Monocytes Absolute Auto 0.7 K/mm3 (0.1-0.6); Monocytes Percent Auto 6.7 % (2.6-8.5); Neutrophils Absolute Auto 5.5 K/mm3 (1.3-6.7); Neutrophils Percent Auto 49.9 % (45.5-73.1); Nucleated Red Blood Cells Perc 0.2 % (0.0-0.2); Platelet Count Result 361 k/mm3 (150-375); Red Blood Count 3.16 M/mm3 (4.6-6.20); Red Cell Distribution Width 14.1 % (11.5-14.5)
[2021-11-17 05:53] LABS: Reticulocyte Hemoglobin Conten 28.5 pg (28.2-35.7); Reticulocyte Percent 5.49 % (0.7-4.3); Reticulocytes Absolute 0.18 B/L (32.2-175.7)
[2021-11-17 05:57] LABS: INR 2.6; Prothrombin Time 26.7 Seconds (11.1-14.7)
[2021-11-17 06:18] LABS: Alanine Aminotransferase 15 U/L (6-50); Albumin Level 4.1 g/dL (3.5-5.1); Alkaline Phosphatase 67 U/L (38-126); Anion Gap 11 mmol/L (8-16); Aspartate Amino Transferase 28 U/L (17-59); Blood Urea Nitrogen 7 mg/dL (9-20); Carbon Dioxide 24 mmol/L (22-30); Chloride 104 mmol/L (98-107); Estimated CRCL calculation 127 ml/min; Estimated Glomerular Filt Rate > 60; Glucose 103 mg/dL (65-110); Potassium 3.9 mmol/L (3.4-5.0); Sodium 139 mmol/L (137-145)
[2021-11-17] MEDS: FOLIC ACID 1 MG TABLET PO (08:44)
[2021-11-17] MEDS: HYDROXYUREA (*CHEMO) 500 MG CAPSULE PO (08:45)
--- NOTE | 2021-11-17 11:31 | PM.IMPN ---
Progress Note: A&P Assessment and Plan (1) Vaso-occlusive pain due to sickle cell disease: Code(s): D57.00 - Hb-SS disease with crisis, unspecified Status: Acute Assessment and Plan: - Continue pain management. Pt. endorses improvement in pain, and increased toleration of mobility. - IVF of NS at 100 ml/hr continued. - Continue to monitor labs and VS and adjust POC accordingly. - Continue Warfarin for anticoagulation, INR this AM was 2.6, Coumadin will be dosed tonight at 1700. - continue hydroxyurea 500 mg every morning. (2) Sickle cell anemia with crisis: Code(s): D57.00 - Hb-SS disease with crisis, unspecified Status: Acute Assessment and Plan: - Monitor labs and VS - Transfuse as needed. Pt. is agreeable to transfusion if needed. Time Spent With Patient Time with patient: 15 - 25 minutes Subjective Date/time seen: 11/17/21 1100 This pt. was examined at the bedside today in interval assessment. He reports that there is still an amount of pain present and he believes that he overdid it yesterday as he was up and walking in the halls. He states his pain is still in his back. He requests one more day in the hospital. I am accommodating to this as he still has an abnormal reticulocyte count. He denies any CP, Dyspnea, N/V/D/headache. Review of Systems Review of Systems: All systems reviewed & are unremarkable except as noted in HPI and below Exam Const: General: comfortable, no acute distress and uncomfortable (But improving.) Other: Secondary to pain HENMT: General nose exam: Normal nares present and no epistaxis Mouth: Yes moist mucous membranes Eyes: General: appearance normal, both eyes and all related structures Sclera: sclerae normal and normal sclerae Pupils: Equal, round and reactive pupils present EOM: EOMs intact bilaterally Neck: Neck: supple and no JVD Thyroid: thyroid normal Carotids: no bruits Lymphatic: lymphadenopathy not noted Resp: Effort & Inspection: normal respiratory effort Auscultation: clear to auscultation bilaterally Cardio: Rate: regular rate Rhythm: regular rhythm Heart sounds: no gallops, no murmurs and no rubs GI: Inspection: non-distended Auscultation: normal bowel sounds Skin: General skin exam: normal color, no rashes or lesions noted and no erythema Lesions: no lesions noted Rashes: no rashes noted Wounds: no wounds Neuro: General: gait normal Cranial nerves: Yes Equal, round and reactive pupils present Speech: normal speech Motor exam (neuro): 5/5 motor strength present throughout and Normal motor muscle tone present throughout Sensory Exam: normal sensation Extrem: General: normal to inspection, no edema and no pedal edema Psych: Mental Status: mental status grossly normal Affect: normal affect Objective Data Vital Signs Vital Signs: Vital Signs - 24 hr 11/16/21 14:57 11/16/21 18:59 11/16/21 19:25 Temperature 98.3 F 97.4 F L 97.4 F L Pulse Rate 91 97 84 Respiratory Rate 16 20 20 Blood Pressure 124/68 130/64 120/72 Pulse Oximetry 100 96 97 Oxygen Delivery 11/16/21 20:00 11/16/21 23:40 11/17/21 03:15 Temperature 97.5 F L 97.4 F L Pulse Rate 78 76 Respiratory Rate 20 20 Blood Pressure 125/70 122/63 Pulse Oximetry 99 97 Oxygen Delivery Room Air 11/17/21 09:22 11/17/21 08:50 Temperature 97 F L Pulse Rate 78 Respiratory Rate 12 Blood Pressure 119/82 Pulse Oximetry 96 Oxygen Delivery Room Air Intake/Output Intake/Output: Intake & Output 11/14/21 11/15/21 11/16/21 11/17/21 23:59 23:59 23:59 23:59 Intake Total 2612 4850 2710 660 Output Total 1950 2775 1550 1400 Balance 662 3860 1160 -589 Meds/Results Medications: Active Medications Generic Name Dose Route Start Last Admin Trade Name Luis PRN Reason Stop Dose Admin Folic Acid 1 mg 11/13/21 09:00 11/17/21 08:44 Folic Acid 1 Mg Tablet PO 1 mg DAILY CHRISTOPHER Administration Hydromorphone HCl 4 mg
[2021-11-17] MEDS: SODIUM CHLORIDE 0.9% IV 1,000 ML 100 ML IV CONT ×2 (12:05→22:46)
[2021-11-17] MEDS: WARFARIN (*PBKC) 10 MG TABLET PO (16:37)
[2021-11-17] MEDS: WARFARIN (*PBKC) 2 MG TABLET 4 MG PO (16:37)
[2021-11-18] MEDS: oxyCODONE/ACETAMINOPHEN (*CRX) 10-325 MG TABLET 1 TAB PO ×4 (01:21→17:34)
[2021-11-18] MEDS: HYDROmorphone HCL INJ (*CRX) 1 MG/ML SYR 3 MG IV PUSH ×6 (02:46→23:05)
[2021-11-18 03:26] VITALS: BP 106/65; PULSE 42; RESP 16; TEMP 36.5; O2SAT 93
[2021-11-18 06:30] LABS: Basophils Absolute Auto 0.1 K/mm3 (0.0-0.1); Basophils Percent Auto 0.7 % (0.2-1.2); Eosinophils Absolute Auto 0.4 K/mm3 (0-0.3); Eosinophils Percent Auto 3.9 % (0-4.4); Hematocrit 28.5 % (42.0-52.0); Immature Granulocyte Absolute 0.03 K/mm3 (0.00-0.031); Immature Granulocyte Percent A 0.3 % (0-0.5); Lymphocytes Absolute Auto 3.41 K/mm3 (0.9-3.2); Mean Corpuscular HGB Conc 35.1 g/dl (32-36); Mean Corpuscular Hemoglobin 30.3 pg (26-34); Mean Corpuscular Volume 86.4 fl (80-100); Mean Platelet Volume 10.5 fl (7.4-10.4); Monocytes Absolute Auto 0.7 K/mm3 (0.1-0.6); Neutrophils Absolute Auto 6.4 K/mm3 (1.3-6.7); Neutrophils Percent Auto 58.1 % (45.5-73.1); Nucleated Red Blood Cells Perc 0.2 % (0.0-0.2); Platelet Count Result 399 k/mm3 (150-375); Red Cell Distribution Width 14.4 % (11.5-14.5)
[2021-11-18 06:37] LABS: Immature Reticulocyte Fraction 29.8 % (3.0-15.9); Reticulocyte Percent 4.82 % (0.7-4.3); Reticulocytes Absolute 0.16 B/L (32.2-175.7)
[2021-11-18 06:42] LABS: INR 3.5; Prothrombin Time 34.2 Seconds (11.1-14.7)
[2021-11-18 06:53] LABS: Alanine Aminotransferase 17 U/L (6-50); Albumin Level 4.4 g/dL (3.5-5.1); Alkaline Phosphatase 81 U/L (38-126); Anion Gap 11 mmol/L (8-16); Aspartate Amino Transferase 37 U/L (17-59); Blood Urea Nitrogen 7 mg/dL (9-20); Calcium 8.6 mg/dL (8.4-10.2); Carbon Dioxide 25 mmol/L (22-30); Chloride 105 mmol/L (98-107); Estimated CRCL calculation 127 ml/min; Estimated Glomerular Filt Rate > 60; Glucose 128 mg/dL (65-110); Magnesium 2.1 mg/dL (1.6-2.3); Potassium 4.3 mmol/L (3.4-5.0); Sodium 141 mmol/L (137-145)
--- NOTE | 2021-11-18 07:41 | PM.DS ---
DS: Admitting Diagnosis Discharge Date 11/18/2021 Admitting Diagnosis Vaso-occlusive pain due to sickle cell disease, sickle cell anemia with crisis DS: Discharge Diagnosis Discharge Diagnosis (1) Vaso-occlusive pain due to sickle cell disease: Code(s): D57.00 - Hb-SS disease with crisis, unspecified Status: Acute Assessment and Plan: - Pt. has improved with pain management. He has no new complaints or issues. - Continue Warfarin for anticoagulation, INR this AM was 3.5, Coumadin will be continued on home medications, however, he will be instructed to hold tonight's dose as his INR is borderline high this morning and he can continue it at normal dose tomorrow. - continue hydroxyurea 500 mg every morning. (2) Sickle cell anemia with crisis: Code(s): D57.00 - Hb-SS disease with crisis, unspecified Status: Acute Assessment and Plan: - As noted above DS: Summary Hospital Course Reason for hospitalization: Widespread Body Aches and Pain Hospital Course: This very pleasant 36 year old male patient with significant PMH of Sickle cell disease presented to the ER on 11/12/21 with widespread pain in what was determined to be SCC. His initial workup was significant for Hgb of 9.9, which has remained stable during his admission and an elevated Reticulocyte count. He was admitted to the hospital for IVF therapy and for pain control and has had a favorable outcome with improvement in pain. He is chronically on Coumadin for anticoagulation and has been stable with his INR. He is at 3.5 today, so he is instructed to hold tonight's dose and to resume it tomorrow. He verbalizes understanding. Status at Discharge Functional status at discharge: independent ambulation Overall status at discharge: patient is back to baseline Time Spent with Patient Time attestation: Total time spent providing and/or coordinating discharge services: Time spent: Greater than 30 minutes Specific discharge activities: Discharge instructions, Post discharge care Exam Const: General: comfortable, no acute distress and uncomfortable (But improving.) Other: Secondary to pain HENMT: General nose exam: Normal nares present and no epistaxis Mouth: Yes moist mucous membranes Eyes: General: appearance normal, both eyes and all related structures Sclera: sclerae normal and normal sclerae Pupils: Equal, round and reactive pupils present EOM: EOMs intact bilaterally Neck: Neck: supple and no JVD Thyroid: thyroid normal Carotids: no bruits Lymphatic: lymphadenopathy not noted Resp: Effort & Inspection: normal respiratory effort Auscultation: clear to auscultation bilaterally Cardio: Rate: regular rate Rhythm: regular rhythm Heart sounds: no gallops, no murmurs and no rubs GI: Inspection: non-distended Auscultation: normal bowel sounds Skin: General skin exam: normal color, no rashes or lesions noted and no erythema Lesions: no lesions noted Rashes: no rashes noted Wounds: no wounds Neuro: General: gait normal Cranial nerves: Yes Equal, round and reactive pupils present Speech: normal speech Motor exam (neuro): 5/5 motor strength present throughout and Normal motor muscle tone present throughout Sensory Exam: normal sensation Extrem: General: normal to inspection, no edema and no pedal edema Psych: Mental Status: mental status grossly normal Affect: normal affect DS: Data Data Completed and Pending Completed studies during hospitalization: ITS Impressions Chest X-Ray 11/12/21 17:29 IMPRESSION: No acute cardiopulmonary process. Labs on day of discharge: Labs from last 24 hours 11/18/21 11/18/21 11/18/21 05:11 05:11 05:11 WBC 11.0 H RBC 3.30 L Hgb 10.0 L Hct 28.5 L MCV 86.4 MCH 30.3 MCHC 35.1 RDW 14.4 Plt Count 399 H MPV 10.5 H Immature Gran % (Auto) 0.3 Neut % (Auto) 58.1 Lymph % (Auto) 31.0 [place] % (Auto) 6.0 Eos % (Auto) 3.9 B
[2021-11-18] MEDS: FOLIC ACID 1 MG TABLET PO (09:15)
[2021-11-18] MEDS: SODIUM CHLORIDE 0.9% IV 1,000 ML 100 ML IV CONT ×2 (09:15→19:46)
[2021-11-18 09:16] VITALS: PULSE 76; RESP 18; O2SAT 100
[2021-11-18] MEDS: HYDROXYUREA (*CHEMO) 500 MG CAPSULE PO (09:16)
[2021-11-18 11:12] VITALS: BP 122/71; PULSE 72; RESP 18; TEMP 36.4; O2SAT 100
--- NOTE | 2021-11-18 11:47 | PM.IMPN ---
Progress Note: A&P Assessment and Plan (1) Vaso-occlusive pain due to sickle cell disease: Code(s): D57.00 - Hb-SS disease with crisis, unspecified Status: Acute Assessment and Plan: - Continue supportive care with pain management. Scheduled oxycodone and intermittent Dilaudid. - Continue IV fluids normal saline at 100. - Absolute retic count today is 0.16. Looking back historically to April of 2018 this is approximately where his absolute retic count runs. His hemoglobin content today is normal at 31, Which when compared historically is also approximately where he runs. - Plan for discharge tomorrow with resumption of home medications.. (2) Sickle cell anemia with crisis: Code(s): D57.00 - Hb-SS disease with crisis, unspecified Status: Acute Assessment and Plan: See plan above Time Spent With Patient Time with patient: 15 - 25 minutes Subjective Date/time seen: 11/18/21 0895 This pt. was examined at the bedside today in interval assessment. He states that he was starting to feel better yesterday and then last night he started having increased pain in his back and arms. He has no CP, dyspnea, N/V/D/headache, dizziness or lightheadedness to report. He asks for one more day to stay and receive pain meds and fluids. Review of Systems Review of Systems: All systems reviewed & are unremarkable except as noted in HPI and below Exam Const: General: comfortable and no acute distress HENMT: General nose exam: Normal nares present and no epistaxis Mouth: Yes moist mucous membranes Eyes: Sclera: sclerae normal Pupils: Equal, round and reactive pupils present EOM: EOMs intact bilaterally Neck: Neck: supple and no JVD Lymphatic: lymphadenopathy not noted Resp: Effort & Inspection: normal respiratory effort Auscultation: clear to auscultation bilaterally Cardio: Rate: regular rate Rhythm: regular rhythm Heart sounds: no gallops, no murmurs and no rubs GI: Inspection: non-distended GI Palp: Yes Soft to palpation, No Tenderness to palpation present (GI) and No Guarding due to palpation present (GI) Auscultation: normal bowel sounds Skin: General skin exam: normal color and no rashes or lesions noted Wounds: no wounds Neuro: General: gait normal Speech: normal speech Motor exam (neuro): 5/5 motor strength present throughout and Normal motor muscle tone present throughout Sensory Exam: normal sensation Extrem: General: normal to inspection, no edema and no pedal edema Other: Freely and easily moves all extremities well without deficits. Psych: Mental Status: mental status grossly normal Affect: normal affect Objective Data Vital Signs Vital Signs: Vital Signs - 24 hr 11/17/21 12:00 11/17/21 14:20 11/17/21 16:00 Temperature 97.1 F L 98.2 F Pulse Rate 83 92 Respiratory Rate 16 17 Blood Pressure 132/80 125/75 Pulse Oximetry 97 98 98 Oxygen Delivery Room Air 11/17/21 20:03 11/17/21 21:46 11/17/21 20:00 Temperature 97.9 F 97.5 F L Pulse Rate 93 93 93 Respiratory Rate 16 16 16 Blood Pressure 120/76 118/69 Pulse Oximetry 95 100 100 Oxygen Delivery Room Air 11/18/21 03:26 11/17/21 22:43 11/18/21 11:12 Temperature 97.7 F 97.5 F L Pulse Rate 42 L 72 Respiratory Rate 16 18 Blood Pressure 106/65 122/71 Pulse Oximetry 93 99 100 Oxygen Delivery Room Air 11/18/21 09:16 Temperature Pulse Rate 76 Respiratory Rate 18 Blood Pressure Pulse Oximetry 100 Oxygen Delivery Room Air Intake/Output Intake/Output: Intake & Output 11/15/21 11/16/21 11/17/21 11/18/21 23:59 23:59 23:59 23:59 Intake Total 4850 2710 3370 1470 Output Total 2775 1550 3525 1350 Balance 2075 1160 -155 120 Meds/Results Medications: Active Medications Generic Name Dose Route Start Last Admin Trade Name Luis PRN Reason Stop Dose Admin Folic Acid 1 mg 11/13/21 09:00 11/18/21 09:15 Folic Acid 1 Mg Tablet PO 1 mg DAILY [facility] Administra
[2021-11-18 15:27] VITALS: BP 119/60; PULSE 96; RESP 16; TEMP 36.1; O2SAT 100
[2021-11-18 19:45] VITALS: BP 119/74; PULSE 95; RESP 14; TEMP 36.6; O2SAT 100
[2021-11-19] VITALS (8 sets, daily range): BP systolic 98–120; BP diastolic 60–78; PULSE 79–101; RESP 16–18; TEMP 36.3–36.8; O2SAT 93–100
[2021-11-19] MEDS: oxyCODONE/ACETAMINOPHEN (*CRX) 10-325 MG TABLET 1 TAB PO ×5 (00:18→23:59)
[2021-11-19] MEDS: HYDROmorphone HCL INJ (*CRX) 1 MG/ML SYR 3 MG IV PUSH ×7 (02:05→22:02)
[2021-11-19] MEDS: SODIUM CHLORIDE 0.9% IV 1,000 ML 100 ML IV CONT ×2 (05:47→14:45)
[2021-11-19 06:53] LABS: Basophils Absolute Auto 0.1 K/mm3 (0.0-0.1); Basophils Percent Auto 0.8 % (0.2-1.2); Eosinophils Absolute Auto 0.3 K/mm3 (0-0.3); Eosinophils Percent Auto 2.8 % (0-4.4); Hematocrit 27.5 % (42.0-52.0); Hemoglobin 9.8 g/dL (14.0-18.0); Immature Granulocyte Absolute 0.05 K/mm3 (0.00-0.031); Immature Granulocyte Percent A 0.4 % (0-0.5); Immature Platelet Fraction Pct 4.8 % (0.9-11.2); Immature Reticulocyte Fraction 34.2 % (3.0-15.9); Lymphocytes Absolute Auto 4.32 K/mm3 (0.9-3.2); Lymphocytes Percent Auto 36.1 % (18.3-44.2); Mean Corpuscular HGB Conc 35.6 g/dl (32-36); Mean Corpuscular Hemoglobin 31.3 pg (26-34); Mean Corpuscular Volume 87.9 fl (80-100); Mean Platelet Volume 10.5 fl (7.4-10.4); Monocytes Absolute Auto 0.8 K/mm3 (0.1-0.6); Monocytes Percent Auto 6.6 % (2.6-8.5); Neutrophils Absolute Auto 6.4 K/mm3 (1.3-6.7); Neutrophils Percent Auto 53.3 % (45.5-73.1); Nucleated Red Blood Cells Perc 0.3 % (0.0-0.2); Platelet Count Result 396 k/mm3 (150-375); Red Blood Count 3.13 M/mm3 (4.6-6.20); Red Cell Distribution Width 14.7 % (11.5-14.5); Reticulocyte Hemoglobin Conten 32.1 pg (28.2-35.7); Reticulocyte Percent 5.15 % (0.7-4.3); Reticulocytes Absolute 0.16 B/L (32.2-175.7)
[2021-11-19 07:01] LABS: INR 3.2
[2021-11-19 07:13] LABS: Alanine Aminotransferase 18 U/L (6-50); Albumin Level 4.3 g/dL (3.5-5.1); Alkaline Phosphatase 81 U/L (38-126); Anion Gap 9 mmol/L (8-16); Aspartate Amino Transferase 35 U/L (17-59); Bilirubin,Total 1.1 mg/dL (0.2-1.3); Blood Urea Nitrogen 6 mg/dL (9-20); Calcium 8.8 mg/dL (8.4-10.2); Carbon Dioxide 25 mmol/L (22-30); Chloride 104 mmol/L (98-107); Estimated CRCL calculation 146 ml/min; Estimated Glomerular Filt Rate > 60; Glucose 120 mg/dL (65-110); Magnesium 2.2 mg/dL (1.6-2.3); Sodium 138 mmol/L (137-145)
[2021-11-19 07:28] LABS: Platelet Estimate Adequate (Adequate)
[2021-11-19 07:29] LABS: Anisocytosis 2+ (NORMAL); Ovalocytes 1+ (NORMAL); Sickle Cells 1+ (NORMAL); Target Cells 2+ (NORMAL); Tear Drop Cells 1+ (NORMAL)
[2021-11-19] MEDS: FOLIC ACID 1 MG TABLET PO (08:10)
[2021-11-19] MEDS: HYDROXYUREA (*CHEMO) 500 MG CAPSULE PO (08:11)
--- NOTE | 2021-11-19 12:52 | WPDPN ---
Progress Note: A&P Assessment and Plan (1) Vaso-occlusive pain due to sickle cell disease: Code(s): D57.00 - Hb-SS disease with crisis, unspecified Status: Acute Assessment and Plan: Continue supportive care Continue oxycodone with Dilaudid. Patient request methadone. Informed patient we will continue supportive care with oxycodone and Dilaudid Patient INR remained elevated at 3.2. Patient at home dose of warfarin is at 14 mg daily will decrease the amount to 10 mg daily. Recommended by pharmacy to keep dose at 10 mg daily on discharge and have patient follow-up with primary care physician with a repeat INR the day after discharge with results going to primary care physician. (2) Sickle cell pain crisis: Code(s): D57.00 - Hb-SS disease with crisis, unspecified Status: Acute Assessment and Plan: Repeat count today 0.16 Subjective Date/time seen: 11/19/21 12:52 Interval history: Patient has a history of several admissions due to his sickle cell crisis. Today patient notes that he does not feel like he is at baseline he is still experiencing pain to his right shoulder and bilateral upper thighs. Patient would like to stay for an additional day. He feels like he will be better tomorrow and able to discharge Review of Systems Review of Systems: All systems reviewed & are unremarkable except as noted in HPI and below Exam Narrative: General: Pleasant, no obvious distress noted HEENT: PERRLA, Mucous Membranes Moist and [place], Nares Patent, Sclera Clear Neck: JVD, Supple Pulmonary: Clear to Auscultation, Normal Air Movement Cardiovascular: No Murmurs, Gallops, or Rubs, Regular Rhythm, Regular Rate Abdominal: Abdomen Soft, Non-Distended, Normal Bowel Sounds Extremities: Normal Pulses Integumentary: No Abnormalities Neurological: Normal Gait, Normal Speech Psychological: Mental Status NL, Mood NL Objective Data Vital Signs Vital Signs: Vital Signs - 24 hr 11/18/21 15:27 11/18/21 19:45 11/18/21 20:00 Temperature 97.0 F L 97.8 F Pulse Rate 96 95 Respiratory Rate 16 14 Blood Pressure 119/60 119/74 Pulse Oximetry 100 100 Oxygen Delivery Room Air 11/19/21 00:41 11/19/21 06:29 11/19/21 08:40 Temperature 97.6 F 98.0 F Pulse Rate 95 79 Respiratory Rate 16 16 16 Blood Pressure 116/66 98/60 L Pulse Oximetry 100 93 93 Oxygen Delivery Room Air 11/19/21 11:15 Temperature 97.6 F Pulse Rate 86 Respiratory Rate 18 Blood Pressure 120/78 Pulse Oximetry 96 Oxygen Delivery Intake/Output Intake/Output: Intake & Output 11/16/21 11/17/21 11/18/21 11/19/21 23:59 23:59 23:59 23:59 Intake Total 2710 3370 3214 1702 Output Total 1550 3525 2800 2250 Balance 1160 -155 414 -548 Meds/Results Medications: Active Medications Generic Name Dose Route Start Last Admin Trade Name Freq PRN Reason Stop Dose Admin Folic Acid 1 mg 11/13/21 09:00 11/19/21 08:10 Folic Acid 1 Mg Tablet PO 1 mg DAILY CHRISTOPHER Administration Hydromorphone HCl 4 mg 11/12/21 23:39 Hydromorphone Hcl (*Crx) 4 Mg Tablet PO Q6H PRN Pain Rated 4-6 Hydromorphone HCl 3 mg 11/13/21 12:49 11/19/21 11:04 Hydromorphone Hcl Inj (*Crx) 1 Mg/Ml Syr IV PUSH 3 mg Q3H PRN Administration Pain Rated 7-10 Hydroxyurea 500 mg 11/14/21 09:00 11/19/21 08:11 Hydroxyurea (*Chemo) 500 Mg Capsule PO 500 mg QAM CHRISTOPHER Administration Sodium Chloride 1,000 mls @ 100 mls/hr 11/13/21 09:30 11/19/21 05:47 Normal Saline Iv IV CONT 100 mls/hr .Q10H CHRISTOPHER Administration Ibuprofen 800 mg 11/13/21 06:54 Ibuprofen 400 Mg Tablet PO Q6H PRN Pain 1-3 Oxycodone/Acetaminophen 1 tab 11/13/21 06:54 11/19/21 12:05 Oxycodone/Acetaminophen (*Crx) 10-325 Mg Tablet PO 1 tab Q6HR CHRISTOPHER Administration Warfarin Sodium 10 mg 11/13/21 17:00 11/17/21 16:37 Warfarin (*Pbkc) 10 Mg Tablet PO 10 mg DAILY@1700 CHRISTOPHER Administration Radiol
[2021-11-19] MEDS: WARFARIN (*PBKC) 10 MG TABLET PO (17:14)
[2021-11-20] MEDS: SODIUM CHLORIDE 0.9% IV 1,000 ML 100 ML IV CONT (01:03)
[2021-11-20] MEDS: HYDROmorphone HCL INJ (*CRX) 1 MG/ML SYR 3 MG IV PUSH ×6 (01:03→18:05)
[2021-11-20 03:50] VITALS: BP 116/68; PULSE 89; RESP 16; TEMP 36.6; O2SAT 99
[2021-11-20 05:47] LABS: Basophils Absolute Auto 0.1 K/mm3 (0.0-0.1); Basophils Percent Auto 0.8 % (0.2-1.2); Eosinophils Absolute Auto 0.4 K/mm3 (0-0.3); Eosinophils Percent Auto 3.2 % (0-4.4); Hematocrit 25.5 % (42.0-52.0); Hemoglobin 8.9 g/dL (14.0-18.0); Immature Granulocyte Absolute 0.03 K/mm3 (0.00-0.031); Immature Granulocyte Percent A 0.3 % (0-0.5); Immature Platelet Fraction Pct 4.4 % (0.9-11.2); Immature Reticulocyte Fraction 32.4 % (3.0-15.9); Lymphocytes Absolute Auto 4.41 K/mm3 (0.9-3.2); Lymphocytes Percent Auto 39.9 % (18.3-44.2); Mean Corpuscular HGB Conc 34.9 g/dl (32-36); Mean Corpuscular Hemoglobin 30.5 pg (26-34); Mean Corpuscular Volume 87.3 fl (80-100); Mean Platelet Volume 10.1 fl (7.4-10.4); Monocytes Absolute Auto 0.8 K/mm3 (0.1-0.6); Monocytes Percent Auto 7.2 % (2.6-8.5); Neutrophils Absolute Auto 5.4 K/mm3 (1.3-6.7); Neutrophils Percent Auto 48.6 % (45.5-73.1); Nucleated Red Blood Cells Perc 0.4 % (0.0-0.2); Platelet Count Result 363 k/mm3 (150-375); Red Blood Count 2.92 M/mm3 (4.6-6.20); Red Cell Distribution Width 14.6 % (11.5-14.5); Reticulocyte Hemoglobin Conten 31.6 pg (28.2-35.7); Reticulocyte Percent 6.05 % (0.7-4.3); Reticulocytes Absolute 0.18 B/L (32.2-175.7); White Blood Count 11.1 K/mm3 (4.5-10.0)
[2021-11-20 05:54] LABS: INR 3.1; Prothrombin Time 31.1 Seconds (11.1-14.7)
[2021-11-20] MEDS: oxyCODONE/ACETAMINOPHEN (*CRX) 10-325 MG TABLET 1 TAB PO ×3 (05:59→20:51)
[2021-11-20 06:39] LABS: Anisocytosis 1+ (NORMAL); Platelet Estimate Adequate (Adequate); Sickle Cells 1+ (NORMAL); Target Cells 2+ (NORMAL)
[2021-11-20 06:40] LABS: Macrocytosis 1+ (NORMAL); Poikilocytosis 1+ (NORMAL)
[2021-11-20] MEDS: FOLIC ACID 1 MG TABLET PO (08:02)
[2021-11-20] MEDS: HYDROXYUREA (*CHEMO) 500 MG CAPSULE PO (08:02)
--- NOTE | 2021-11-20 11:35 | PCNWS ---
Weekly nutritional screen. Patient is tolerating current diet with adequate intake. No weight loss reported. No nutritional needs at this time.
[2021-11-20] MEDS: methADONE HCL (*CRX) 10 MG TABLET 20 MG PO ×2 (12:02→16:29)
[2021-11-20 14:28] VITALS: BP 140/81; PULSE 84; RESP 16; TEMP 36.4; O2SAT 94
--- NOTE | 2021-11-20 14:58 | PM.IMPN ---
Progress Note: A&P Assessment and Plan (1) Vaso-occlusive pain due to sickle cell disease: Code(s): D57.00 - Hb-SS disease with crisis, unspecified Status: Acute Assessment and Plan: Restarted patient's home methadone with Percocet for breakthrough pain, discontinued IV Dilaudid, anticipate discharge home tomorrow (2) Sickle cell pain crisis: Code(s): D57.00 - Hb-SS disease with crisis, unspecified Status: Acute Assessment and Plan: Retic count slightly elevated Subjective Date/time seen: 11/20/21 14:58 Interval history: Patient states that his pain was getting better until he tried to move around and take a shower. Then he noted that his pain increased significantly. He is requesting his home methadone at this time. No overnight events noted. No chest pain or shortness of breath. No nausea, vomiting or diarrhea. No fevers or chills. Review of Systems Review of Systems: All systems reviewed & are unremarkable except as noted in HPI and below Exam Narrative: General: No acute distress, alert and oriented per baseline HEENT: Atraumatic, normocephalic, mucous membranes moist CV: Regular rate and rhythm, S1, S2 Lungs: Clear to auscultation bilaterally, no rales or crackles noted, no wheezes, good air entry Abdomen: Soft, nontender, nondistended Extremities: Normal to inspection Skin: No rashes noted, no lesions or wounds seen Psych: Euthymic, normal affect Objective Data Vital Signs Vital Signs: Vital Signs - 24 hr 11/19/21 15:08 11/19/21 18:28 11/19/21 19:37 Temperature 97.3 F L 97.4 F L 98 F Pulse Rate 81 96 96 Respiratory Rate 18 18 16 Blood Pressure 117/73 119/71 119/74 Pulse Oximetry 99 99 100 11/19/21 23:55 11/20/21 03:50 11/20/21 14:28 Temperature 98.2 F 98 F 97.5 F L Pulse Rate 101 H 89 84 Respiratory Rate 16 16 16 Blood Pressure 115/70 116/68 140/81 Pulse Oximetry 99 99 94 Intake/Output Intake/Output: Intake & Output 11/17/21 11/18/21 11/19/21 11/20/21 23:59 23:59 23:59 23:59 Intake Total 4910 3219 1243 5223 Output Total 6535 0794 5150 525 Balance -155 414 -269 2399 Meds/Results Medications: Active Medications Generic Name Dose Route Start Last Admin Trade Name Freq PRN Reason Stop Dose Admin Folic Acid 1 mg 11/13/21 09:00 11/20/21 08:02 Folic Acid 1 Mg Tablet PO 1 mg DAILY [facility] Administration Hydromorphone HCl 4 mg 11/12/21 23:39 Hydromorphone Hcl (*Crx) 4 Mg Tablet PO Q6H PRN Pain Rated 4-6 Hydroxyurea 500 mg 11/14/21 09:00 11/20/21 08:02 Hydroxyurea (*Chemo) 500 Mg Capsule PO 500 mg QAM CHRISTOPHER Administration Ibuprofen 800 mg 11/13/21 06:54 Ibuprofen 400 Mg Tablet PO Q6H PRN Pain 1-3 Methadone HCl 20 mg 11/20/21 17:00 Methadone Hcl (*Crx) 10 Mg Tablet PO BID CHRISTOPHER Trazodone HCl 50 mg 11/19/21 13:58 Trazodone Hcl 50 Mg Tablet PO HS PRN Insomnia Warfarin Sodium 10 mg 11/20/21 17:00 Warfarin (*Pbkc) 10 Mg Tablet PO DAILY@1700 [facility] Radiology Results: ITS Impressions Chest X-Ray 11/12/21 17:29 IMPRESSION: No acute cardiopulmonary process. Labs Labs: Laboratory Results - last 24 hr 11/20/21 11/20/21 05:30 05:30 WBC 11.1 H RBC 2.92 L Hgb 8.9 L Hct 25.5 L MCV 87.3 MCH 30.5 MCHC 34.9 RDW 14.6 H Plt Count 363 MPV 10.1 Immature Gran % (Auto) 0.3 Neut % (Auto) 48.6 Lymph % (Auto) 39.9 [place] % (Auto) 7.2 Eos % (Auto) 3.2 Baso % (Auto) 0.8 Lymph # (Auto) 4.41 H [place] # (Auto) 0.8 H Eos # (Auto) 0.4 H Baso # (Auto) 0.1 Abs Immat Gran (auto) 0.03 Absolute Neuts (auto) 5.4 Absolute Nucleated RBC 0.0 Nucleated RBC % 0.4 H Platelet Estimate Adequate % Immature Plt Fraction 4.4 Poikilocytosis 1+ Anisocytosis 1+ Macrocytosis 1+ Sickle Cells 1+ Target Cells 2+ Absolute Retic 0.18 L Percent Retic 6.05 H Immature Retic Fraction 32.4
[2021-11-20] MEDS: WARFARIN (*PBKC) 10 MG TABLET PO (16:29)
[2021-11-20 19:40] VITALS: PULSE 88; RESP 16; O2SAT 95
[2021-11-20 20:32] VITALS: BP 119/69; PULSE 88; RESP 16; TEMP 36.6; O2SAT 95
[2021-11-21] VITALS (12 sets, daily range): BP systolic 108–132; BP diastolic 60–74; PULSE 81–97; RESP 9–18; TEMP 36.2–36.8; O2SAT 91–100
[2021-11-21] MEDS: oxyCODONE/ACETAMINOPHEN (*CRX) 10-325 MG TABLET 1 TAB PO ×3 (01:00→09:10)
[2021-11-21] MEDS: HYDROmorphone HCL INJ (*CRX) 1 MG/ML SYR 3 MG IV PUSH ×3 (02:29→10:38)
[2021-11-21 05:52] LABS: INR 3.4
[2021-11-21] MEDS: HYDROXYUREA (*CHEMO) 500 MG CAPSULE PO (09:10)
[2021-11-21] MEDS: methADONE HCL (*CRX) 10 MG TABLET 20 MG PO ×2 (09:10→17:59)
[2021-11-21] MEDS: FOLIC ACID 1 MG TABLET PO (09:10)
[2021-11-21] MEDS: HYDROmorphone HCL INJ (*CRX) 1 MG/ML SYR 4 MG IV PUSH (13:57)
[2021-11-21] MEDS: HYDROmorphon 0.2MG/ML PCA(*CRX 6 MG/30 ML PCA.VIAL 5 MG IV CONT ×3 (15:25→23:21)
--- NOTE | 2021-11-21 16:56 | PM.IMPN ---
Progress Note: A&P Assessment and Plan (1) Vaso-occlusive pain due to sickle cell disease: Code(s): D57.00 - Hb-SS disease with crisis, unspecified Status: Acute Assessment and Plan: Patient's pain significantly increased from yesterday, will continue home methadone and add dilaudid [employer], patient will likely need this for 24-72 hours to get a handle on his pain, then we can deescalate back to oral pain medications with IV for breakthrough and then eventually discharge (2) Sickle cell pain crisis: Code(s): D57.00 - Hb-SS disease with crisis, unspecified Status: Acute Assessment and Plan: Retic count slightly elevated Subjective Date/time seen: 11/21/21 16:56 Interval history: Patient still in 9/10 pain in his left shoulder and legs. Since restarting his home medications, he is still having difficulty controlling his pain. No overnight events noted. No chest pain or shortness of breath. No nausea, vomiting or diarrhea. No fevers or chills. Review of Systems Review of Systems: 12 point review of systems was assessed and was negative except as noted in the HPI All systems reviewed & are unremarkable except as noted in HPI and below Exam Narrative: General: Patient appears to be quite uncomfortable, leaning in bed towards the left, difficulty using his left arm due to severe pain HEENT: Atraumatic, normocephalic, mucous membranes moist CV: Regular rate and rhythm, S1, S2 Lungs: Clear to auscultation bilaterally, no rales or crackles noted, no wheezes, good air entry Abdomen: Soft, nontender, nondistended Extremities: Normal to inspection Skin: No rashes noted, no lesions or wounds seen Objective Data Vital Signs Vital Signs: Vital Signs - 24 hr 11/20/21 19:40 11/20/21 20:32 11/21/21 04:44 Temperature 98 F 98.3 F Pulse Rate 88 88 81 Respiratory Rate 16 16 16 Blood Pressure 119/69 108/63 Pulse Oximetry 95 95 100 Oxygen Delivery Room Air 11/21/21 10:07 11/21/21 13:55 11/21/21 15:25 Temperature 97.4 F L 97.6 F Pulse Rate 93 88 Respiratory Rate 18 15 18 Blood Pressure 119/67 127/60 Pulse Oximetry 97 95 93 Oxygen Delivery 11/21/21 15:53 Temperature Pulse Rate Respiratory Rate Blood Pressure Pulse Oximetry 93 Oxygen Delivery Room Air Intake/Output Intake/Output: Intake & Output 11/18/21 11/19/21 11/20/21 11/21/21 23:59 23:59 23:59 23:59 Intake Total 3214 3044 4264 540 Output Total 2800 3850 2005 500 Balance 414 805 2259 40 Meds/Results Medications: Active Medications Generic Name Dose Route Start Last Admin Trade Name Freq PRN Reason Stop Dose Admin Folic Acid 1 mg 11/13/21 09:00 11/21/21 09:10 Folic Acid 1 Mg Tablet PO 1 mg DAILY [facility]STOPHER Administration Hydromorphone HCl 3 mg 11/20/21 17:46 11/21/21 10:38 Hydromorphone Hcl Inj (*Crx) 1 Mg/Ml Syr IV PUSH 3 mg Q3H PRN Administration Breakthrough Pain Hydroxyurea 500 mg 11/14/21 09:00 11/21/21 09:10 Hydroxyurea (*Chemo) 500 Mg Capsule PO 500 mg QAM CHRISTOPHER Administration Hydromorphone HCl 6 mg in 30 mls @ 5 mls/hr 11/21/21 13:51 11/21/21 15:25 Dilaudid 0.2 Mg/Ml Tangled [employer]arn Spool Straightener IV CONT 1 mg/hr PRN PRN 5 mls/hr [employer] Management Administration Protocol 1 MG/HR Ibuprofen 800 mg 11/13/21 06:54 Ibuprofen 400 Mg Tablet PO Q6H PRN Pain 1-3 Methadone HCl 20 mg 11/20/21 17:00 11/21/21 09:10 Methadone Hcl (*Crx) 10 Mg Tablet PO 20 mg BID CHRISTOPHER Administration Oxycodone/Acetaminophen 1 tab 11/20/21 15:09 11/21/21 09:10 Oxycodone/Acetaminophen (*Crx) 10-325 Mg Tablet PO 1 tab Q4H PRN Administration Pain of 4-10 Trazodone HCl 50 mg 11/19/21 13:58 Trazodone Hcl 50 Mg Tablet PO HS PRN Insomnia Warfarin Sodium 10 mg 11/20/21 17:00 11/20/21 16:29 Warfarin (*Pbkc) 10 Mg Tablet PO 10 mg DAILY@1700 CHRISTOPHER Administration Radiology Results: ITS Impressions Chest X-Ray 11/12
[2021-11-21] MEDS: WARFARIN (*PBKC) 10 MG TABLET PO (17:59)
[2021-11-22] VITALS (24 sets, daily range): BP systolic 111–136; BP diastolic 61–73; PULSE 83–100; RESP 8–20; TEMP 36.3–36.9; O2SAT 92–99
[2021-11-22] MEDS: HYDROmorphon 0.2MG/ML PCA(*CRX 6 MG/30 ML PCA.VIAL 5 MG IV CONT ×3 (02:50→11:15)
[2021-11-22 06:26] LABS: Basophils Absolute Auto 0.1 K/mm3 (0.0-0.1); Basophils Percent Auto 0.6 % (0.2-1.2); Eosinophils Absolute Auto 0.3 K/mm3 (0-0.3); Eosinophils Percent Auto 2.2 % (0-4.4); Hematocrit 27.2 % (42.0-52.0); Hemoglobin 9.6 g/dL (14.0-18.0); Immature Granulocyte Absolute 0.05 K/mm3 (0.00-0.031); Immature Granulocyte Percent A 0.4 % (0-0.5); Immature Platelet Fraction Pct 4.1 % (0.9-11.2); Immature Reticulocyte Fraction 27.9 % (3.0-15.9); Lymphocytes Percent Auto 27.1 % (18.3-44.2); Mean Corpuscular HGB Conc 35.3 g/dl (32-36); Mean Corpuscular Hemoglobin 30.8 pg (26-34); Mean Corpuscular Volume 87.2 fl (80-100); Mean Platelet Volume 10.2 fl (7.4-10.4); Monocytes Percent Auto 7.8 % (2.6-8.5); Neutrophils Percent Auto 61.9 % (45.5-73.1); Nucleated Red Blood Cells Perc 0.3 % (0.0-0.2); Platelet Count Result 381 k/mm3 (150-375); Red Blood Count 3.12 M/mm3 (4.6-6.20); Red Cell Distribution Width 14.9 % (11.5-14.5); Reticulocyte Hemoglobin Conten 30.8 pg (28.2-35.7); Reticulocyte Percent 6.26 % (0.7-4.3); White Blood Count 12.9 K/mm3 (4.5-10.0)
[2021-11-22 06:38] LABS: INR 3.1; Prothrombin Time 30.9 Seconds (11.1-14.7)
[2021-11-22 06:40] LABS: Alanine Aminotransferase 20 U/L (6-50); Albumin Level 4.6 g/dL (3.5-5.1); Alkaline Phosphatase 79 U/L (38-126); Anion Gap 9 mmol/L (8-16); Aspartate Amino Transferase 31 U/L (17-59); Blood Urea Nitrogen 9 mg/dL (9-20); Carbon Dioxide 30 mmol/L (22-30); Chloride 103 mmol/L (98-107); Estimated CRCL calculation 127 ml/min; Estimated Glomerular Filt Rate > 60; Glucose 122 mg/dL (65-110); Potassium 4.2 mmol/L (3.4-5.0); Sodium 142 mmol/L (137-145)
[2021-11-22 07:26] LABS: Platelet Estimate Adequate (Adequate)
[2021-11-22 07:27] LABS: Anisocytosis 2+ (NORMAL); Ovalocytes 1+ (NORMAL); Sickle Cells 1+ (NORMAL); Target Cells 2+ (NORMAL)
[2021-11-22] MEDS: SODIUM CHLORIDE 0.9% IV 500 ML 30 ML (08:07)
[2021-11-22] MEDS: HYDROXYUREA (*CHEMO) 500 MG CAPSULE PO (08:09)
[2021-11-22] MEDS: FOLIC ACID 1 MG TABLET PO (08:09)
[2021-11-22] MEDS: methADONE HCL (*CRX) 10 MG TABLET 20 MG PO ×2 (08:10→17:08)
--- NOTE | 2021-11-22 12:29 | PM.IMPN ---
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 Will lower the basal rate due to lower respiratory rate. Continue hydroxyurea as ordered with folic acid. Will recheck LDH. 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 Continue to monitor INR regularly Subjective Date/time seen: 11/22/21 12:29 Interval history: No overnight events feels better. 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 Rates pain at 7/10. Tolerable pain is around 3-4 x 10. Pain in bilateral lower extremities as well as an upper shoulder area. Denies any chest pain or shortness of breath. Review of Systems Review of Systems: All systems reviewed & are unremarkable except as noted in HPI and below Exam Narrative: General: Patient appears comfortable, not in acute distress HEENT: Atraumatic, normocephalic, mucous membranes moist CV: Regular rate and rhythm, S1, S2 Lungs: Clear to auscultation bilaterally, no rales or crackles noted, no wheezes, good air entry Abdomen: Soft, nontender, nondistended Extremities: Normal to inspection Skin: No rashes noted, no lesions or wounds seen Objective Data Vital Signs Vital Signs: Vital Signs - 24 hr 11/21/21 13:55 11/21/21 15:25 11/21/21 15:53 Temperature 97.6 F Pulse Rate 88 Respiratory Rate 15 18 Blood Pressure 127/60 Pulse Oximetry 95 93 93 Oxygen Delivery Room Air 11/21/21 16:25 11/21/21 17:25 11/21/21 18:17 Temperature 97.6 F Pulse Rate 97 Respiratory Rate 14 12 18 Blood Pressure 124/74 Pulse Oximetry 95 97 93 Oxygen Delivery 11/21/21 19:25 11/21/21 20:36 11/21/21 21:27 Temperature 97.2 F L Pulse Rate 91 91 Respiratory Rate 11 L 11 L 18 Blood Pressure 132/70 Pulse Oximetry 91 96 97 Oxygen Delivery Room Air 11/21/21 19:25 11/21/21 23:21 11/22/21 02:02 Temperature 97.8 F Pulse Rate 83 Respiratory Rate 9 L 18 Blood Pressure 116/73 Pulse Oximetry 95 96 Oxygen Delivery Room Air 11/22/21 02:50 11/22/21 05:49 11/22/21 04:50 Temperature 97.4 F L Pulse Rate 88 Respiratory Rate 10 L 18 8 L Blood Pressure 111/66 Pulse Oximetry 92 95 92 Oxygen Delivery 11/22/21 06:43 11/22/21 07:08 11/22/21 09:03 Temperature Pulse Rate 100 Respiratory Rate 11 L 14 10 L Blood Pressure Pulse Oximetry 95 95 96 Oxygen Delivery Room Air 11/22/21 08:00 11/22/21 10:00 11/22/21 10:15 Temperature 98.4 F Pulse Rate 87 Respiratory Rate 14 13 16 Blood Pressure 117/70 Pulse Oximetry 94 94 97 Oxygen Delivery 11/22/21 12:16 Temperature Pulse Rate Respiratory Rate 10 L Blood Pressure Pulse Oximetry 94 Oxygen Delivery Intake/Output Intake/Output: Intake & Output 11/19/21 11/20/21 11/21/21 11/22/21 23:59 23:59 23:59 23:59 Intake Total 3044 4264 990 888.5 Output Total 3850 9105 1925 1200 Balance -806 2259 -935 -311.5 Meds/Results Medications: Active Medications Generic Name Dose Route Start Last Admin Trade Name Freq PRN Reason Stop Dose Admin Folic Acid 1 mg 11/13/21 09:00 11/22/21 08:09 Folic Acid 1 Mg Tablet PO 1 mg DAILY CHRISTOPHER Administration Hydromorphone HCl 3 mg 11/20/21 17:46 11/21/21 10:38 Hydromorphone Hcl Inj (*Crx) 1 Mg/Ml Syr IV PUSH 3 mg Q3H PRN Administration Breakthrough Pain Hydroxyurea 500 mg 11/14/21 09:00 11/22/21 08:09 Hydroxyurea (*Chemo) 500 Mg Capsule PO 500 mg QAM CHRISTOPHER Administration Hydromorphone HCl 6 mg in 30 mls @ 5 mls/hr 11/21/21 13:51 11/22/21 12:16 Dilaudid 0.2 Mg/Ml Partnership Manager IV CONT 1 mg/hr
[2021-11-22] MEDS: HYDROmorphon 0.2MG/ML PCA(*CRX 6 MG/30 ML PCA.VIAL 2.5 MG IV CONT ×3 (13:17→22:51)
[2021-11-22] MEDS: WARFARIN (*PBKC) 10 MG TABLET PO (17:09)
--- NOTE | 2021-11-22 18:57 | P.PNONC_ITS ---
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 Left noted that showed improvement in hemoglobin now 9.6. Clinically he is feeling better. I would recommend continue to taper Dilaudid [employer]PERVIS[employer]PE[employer] and likely discharge home in the morning. Patient will continue methadone and Roberts as an outpatient. He will continue Hydrea 500 mg daily with folic acid daily. Recurrent pulmonary embolism. Continue warfarin. INR therapeutic. - Time Spent With Patient Total time spent is greater than 50% in coordination of care (as documented) at patient's floor/unit and/or counseling patient: 15 - 25 minutes Subjective Interval history: Sickle cell anemia Recurrent pulmonary embolism Review of Systems - Review of Systems Patient pain is under better control with Dilaudid [employer]. Denies any fevers and chills. Denies any bleeding and bruising. No other new complaint. - Neurologic Denies vertigo, Denies syncope, Denies focal weakness, Denies sensory deficit, Denies disequilibrium Exam Vital signs: Temp Pulse Resp BP Pulse Ox O2 Del Method O2 Flow Rate 36.6 C 98 14 128/68 92 Room Air 1 11/22/21 17:50 11/22/21 17:50 11/22/21 18:10 11/22/21 17:50 11/22/21 18:10 11/22/21 09:03 11/12/21 23:28 Narrative: Lungs are clear to auscultation bilaterally Cardiovascular regular rate rhythm no murmurs Abdomen soft nontender nondistended bowel sounds are positive Extremities no edema PN: Objective Data - Labs CBC & Chem 7: 11/22/21 05:58 11/22/21 05:58 Labs: Laboratory Results - last 24 hr 11/22/21 11/22/21 11/22/21 05:58 05:58 05:58 WBC 12.9 H RBC 3.12 L Hgb 9.6 L Hct 27.2 L MCV 87.2 MCH 30.8 MCHC 35.3 RDW 14.9 H Plt Count 381 H MPV 10.2 Immature Gran % (Auto) 0.4 Neut % (Auto) 61.9 Lymph % (Auto) 27.1 [place] % (Auto) 7.8 Eos % (Auto) 2.2 Baso % (Auto) 0.6 Lymph # (Auto) 3.50 H [place] # (Auto) 1.0 H Eos # (Auto) 0.3 Baso # (Auto) 0.1 Abs Immat Gran (auto) 0.05 H Absolute Neuts (auto) 8.0 H Absolute Nucleated RBC 0.0 Nucleated RBC % 0.3 H Platelet Estimate Adequate % Immature Plt Fraction 4.1 Anisocytosis 2+ Sickle Cells 1+ Target Cells 2+ Ovalocytes 1+ Absolute Retic 0.20 L Percent Retic 6.26 H Immature Retic Fraction 27.9 H Retic Hgb Content 30.8 PT 30.9 H INR 3.1 Sodium 142 Potassium 4.2 Chloride 103 Carbon Dioxide 30 Anion Gap 9 BUN 9 Creatinine 0.70 Estim Creat Clear Calc 127 Estimated GFR > 60 Glucose 122 H Calcium 9.0 Total Bilirubin 1.0 AST 31 ALT 20 Alkaline Phosphatase 79 Total Protein 8.0 Albumin 4.6
[2021-11-23] VITALS (8 sets, daily range): BP systolic 106–138; BP diastolic 59–70; PULSE 82–96; RESP 10–18; TEMP 36.4–36.6; O2SAT 93–98
[2021-11-23] MEDS: SODIUM CHLORIDE 0.9% IV 500 ML 30 ML (00:45)
[2021-11-23] MEDS: HYDROmorphon 0.2MG/ML PCA(*CRX 6 MG/30 ML PCA.VIAL 2.5 MG IV CONT ×2 (03:53→08:12)
[2021-11-23 06:34] LABS: Basophils Absolute Auto 0.1 K/mm3 (0.0-0.1); Basophils Percent Auto 0.7 % (0.2-1.2); Eosinophils Absolute Auto 0.6 K/mm3 (0-0.3); Eosinophils Percent Auto 5.3 % (0-4.4); Hematocrit 25.6 % (42.0-52.0); Hemoglobin 8.9 g/dL (14.0-18.0); Immature Granulocyte Absolute 0.03 K/mm3 (0.00-0.031); Immature Granulocyte Percent A 0.3 % (0-0.5); Lymphocytes Absolute Auto 3.74 K/mm3 (0.9-3.2); Lymphocytes Percent Auto 36.3 % (18.3-44.2); Mean Corpuscular HGB Conc 34.8 g/dl (32-36); Mean Corpuscular Hemoglobin 30.9 pg (26-34); Mean Corpuscular Volume 88.9 fl (80-100); Mean Platelet Volume 10.1 fl (7.4-10.4); Monocytes Absolute Auto 0.9 K/mm3 (0.1-0.6); Monocytes Percent Auto 8.7 % (2.6-8.5); Neutrophils Percent Auto 48.7 % (45.5-73.1); Nucleated Red Blood Cells Perc 0.4 % (0.0-0.2); Platelet Count Result 411 k/mm3 (150-375); Red Blood Count 2.88 M/mm3 (4.6-6.20); Red Cell Distribution Width 15.5 % (11.5-14.5); Reticulocyte Hemoglobin Conten 30.8 pg (28.2-35.7); Reticulocyte Percent 6.95 % (0.7-4.3); White Blood Count 10.3 K/mm3 (4.5-10.0)
[2021-11-23 06:47] LABS: Alanine Aminotransferase 18 U/L (6-50); Albumin Level 4.1 g/dL (3.5-5.1); Alkaline Phosphatase 75 U/L (38-126); Anion Gap 8 mmol/L (8-16); Aspartate Amino Transferase 33 U/L (17-59); Bilirubin,Total 0.9 mg/dL (0.2-1.3); Blood Urea Nitrogen 9 mg/dL (9-20); Calcium 9.1 mg/dL (8.4-10.2); Carbon Dioxide 29 mmol/L (22-30); Chloride 104 mmol/L (98-107); Estimated CRCL calculation 127 ml/min; Estimated Glomerular Filt Rate > 60; Glucose 113 mg/dL (65-110); INR 3.8; Lactate Dehydrogenase 256 U/L (120-246); Magnesium 2.1 mg/dL (1.6-2.3); Potassium 4.4 mmol/L (3.4-5.0); Prothrombin Time 36.3 Seconds (11.1-14.7); Sodium 141 mmol/L (137-145)
[2021-11-23 07:37] LABS: Platelet Estimate Increased (Adequate)
[2021-11-23 07:38] LABS: Anisocytosis 2+ (NORMAL); Sickle Cells 1+ (NORMAL); Target Cells 2+ (NORMAL)
[2021-11-23] MEDS: HYDROXYUREA (*CHEMO) 500 MG CAPSULE PO (08:18)
[2021-11-23] MEDS: methADONE HCL (*CRX) 10 MG TABLET 20 MG PO (08:18)
[2021-11-23] MEDS: FOLIC ACID 1 MG TABLET PO (08:18)
--- NOTE | 2021-11-23 10:46 | PM.DS ---
DS: Admitting Diagnosis Discharge Date 11/23/2021 Admitting Diagnosis Generalized pain DS: Discharge Diagnosis Discharge Diagnosis (1) Vaso-occlusive pain due to sickle cell disease: Code(s): D57.00 - Hb-SS disease with crisis, unspecified Status: Acute (2) Sickle cell pain crisis: Code(s): D57.00 - Hb-SS disease with crisis, unspecified Status: Acute DS: Summary Hospital Course Reason for hospitalization: Generalized pain Hospital Course: Facial occlusive pain due to sickle cell disease: Patient was started on IV pain medication. Labs were monitored. 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 Slowly dilaudid PC was tapered off. He was also started on hydroxyurea 500 mg daily and a continue on his oral pain medication which is methadone and oxycodone p.r.n.. He was also monitored with INR for his warfarin therapy for his history of recurrent PE. He had supratherapeutic INR with home doses which was unclear during the visit. His dose is adjusted to 7.5 mg daily and his advised to monitor INR daily with a goal of 2-3. His ammunition components inspector was also consulted during the hospital course. Time Spent with Patient Time attestation: Total time spent providing and/or coordinating discharge services: 40 minutes Exam Narrative: General: Patient appears comfortable, not in acute distress HEENT: Atraumatic, normocephalic, mucous membranes moist CV: Regular rate and rhythm, S1, S2 Lungs: Clear to auscultation bilaterally, no rales or crackles noted, no wheezes, good air entry Abdomen: Soft, nontender, nondistended Extremities: Normal to inspection Skin: No rashes noted, no lesions or wounds seen DS: Data Data Completed and Pending Labs on day of discharge: Labs from last 24 hours 11/23/21 11/23/21 11/23/21 06:06 06:06 06:06 WBC 10.3 H RBC 2.88 L Hgb 8.9 L Hct 25.6 L MCV 88.9 MCH 30.9 MCHC 34.8 RDW 15.5 H Plt Count 411 H MPV 10.1 Immature Gran % (Auto) 0.3 Neut % (Auto) 48.7 Lymph % (Auto) 36.3 [place] % (Auto) 8.7 H Eos % (Auto) 5.3 H Baso % (Auto) 0.7 Lymph # (Auto) 3.74 H [place] # (Auto) 0.9 H Eos # (Auto) 0.6 H Baso # (Auto) 0.1 Abs Immat Gran (auto) 0.03 Absolute Neuts (auto) 5.0 Absolute Nucleated RBC 0.0 Nucleated RBC % 0.4 H Platelet Estimate Increased % Immature Plt Fraction 4.0 Anisocytosis 2+ Sickle Cells 1+ Target Cells 2+ Absolute Retic 0.20 L Percent Retic 6.95 H Immature Retic Fraction 35.0 H Retic Hgb Content 30.8 PT 36.3 H INR 3.8 Sodium 141 Potassium 4.4 Chloride 104 Carbon Dioxide 29 Anion Gap 8 BUN 9 Creatinine 0.70 Estim Creat Clear Calc 127 Estimated GFR > 60 Glucose 113 H Calcium 9.1 Magnesium 2.1 Total Bilirubin 0.9 AST 33 ALT 18 Alkaline Phosphatase 75 Lactate Dehydrogenase 256 H Total Protein 8.0 Albumin 4.1 Imaging Radiologist's impression: ITS Impressions Chest X-Ray 11/12/21 17:29 IMPRESSION: No acute cardiopulmonary process. Discharge Plan Discharge Attending physician on discharge: Shayne Davis Discharging Clinician: Shayne Davis Anticipated Discharge Date/Time: 11/19/21 07:31 Patient Disposition: Home, Self-Care Activity: as tolerated Diet: as tolerated and regular Discharge Instructions: Quan, thank you for allowing us to care for you. You were admitted and treated for your Acute Sickle Cell Crisis. We ask that you continue to take all medications and that you follow up with your physician MATTHEW. If you have any new or worsening symptoms, return to the ER. Patient Instructions: Antibiotic Form, Blood Thinners (GEN) Stand Alone Forms: General Discharge Information Follow-up/Referrals: Jone Marks MD [Primary Care Provider] - 1 Week Discharge Medications: New warf
== END 2021-11-23 12:34 | disposition home or self-care (01) | DRG 662 ==
LOC: ANHED 20:46 → ANH2MED 22:28
PROVIDERS: Nurse Practitioner; Nurse Practitioner Adult Health; Student in an Organized Health Care Education/Training Program; Admitting Provider Internal Medicine; Emergency Provider Nurse Practitioner Family; PCP Internal Medicine Hematology & Oncology; Visit Provider Internal Medicine
DX: D57.00 Hb-SS disease with crisis, unspecified (principal); Z20.822 Contact with and (suspected) exposure to COVID-19; Z79.01 Long term (current) use of anticoagulants; Z86.718 Personal history of other venous thrombosis and embolism; Z86.711 Personal history of pulmonary embolism; Z79.891 Long term (current) use of opiate analgesic; Z91.14 Patient's other noncompliance with medication regimen
CPT/HCPCS: 36415; 71046; 80053; 83615; 83690; 83735; 84484; 85025; 85046; 85055; 85610; 85730; 93005; 96361; 96372; 96374; 96376; 99285; A9270; C9803; G0378; G0379; J1170; J7030; J7040; U0003; U0005

== ENCOUNTER 2021-11-27 14:26 | Outpatient (CLI) | payer OTHER, SELFPAY ==
[2021-11-29 11:11] LABS: PCP NEGATIVE ng/mL (<25)
[2021-12-08 15:34] LABS: Marijuana Metabolites NEGATIVE
[2021-12-08 15:36] LABS: Amphetamines NEGATIVE; Barbiturates NEGATIVE
[2021-12-08 15:37] LABS: Benzodiazepines NEGATIVE; Cocaine Metabolites NEGATIVE
== END 2021-11-27 14:27 | disposition home or self-care (01) ==
LOC: ANHLAB 14:28
PROVIDERS: PCP Internal Medicine Hematology & Oncology; Visit Provider Internal Medicine Hematology & Oncology
DX: D57.20 Sickle-cell/Hb-C disease without crisis (principal)
CPT/HCPCS: 80307

== ENCOUNTER 2021-12-11 09:41 | Inpatient (IN) | payer OTHER, SELFPAY ==
[2021-12-11 09:42] VITALS: BP 130/76; PULSE 107; RESP 20; TEMP 37.4; O2SAT 100
--- NOTE | 2021-12-11 10:39 | ED.GENADULT ---
HPI - General Adult General Chief complaint: Unspecified Stated complaint: sickle cell with pain to back, ribs, and legs Time Seen by Provider: 12/11/21 10:31 History of Present Illness HPI narrative: Pt presents with bilateral upper thigh pain and bilateral lateral rib pain for a couple of days. Pt says this feels like his sickle cell crisis and his pain meds are not working. Pt sees hematology at [facility]. Pt was admitted for sickle cell crisis here earlier this month. Pt denies CP or fever. Related Data Home Medications Medication Instructions Recorded Confirmed folic acid 1 mg tablet 1 mg PO DAILY 02/16/19 12/11/21 methadone 10 mg tablet 10 mg PO TID 08/22/20 12/11/21 oxycodone-acetaminophen 10 mg-325 1 tablet PO BID PRN Pain, Moderate 08/22/20 12/11/21 mg tablet ibuprofen 800 mg tablet 800 mg PO Q6H PRN Pain 11/12/21 12/11/21 warfarin 7.5 mg tablet 10 mg PO DAILY 12/11/21 12/11/21 Allergies Allergy/AdvReac Type Severity Reaction Status Date / Time Fish Containing Products Allergy Mild Itching Verified 12/11/21 14:49 Review of Systems Review of Systems: All systems reviewed & are unremarkable except as noted in HPI and below PMFSH Past Medical History Medical History (Updated 12/11/21 @ 14:03 by Kimberlee Santamaria PA-C) Acute chest syndrome Chronic anticoagulation Due to history of DVT and pulmonary embolism. Chronic narcotic use On methadone with oxycodone for chronic pain related to sickle cell disease. 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 Deep venous thrombosis Noncompliance History of noncompliance with anticoagulation and hydroxyurea. Pulmonary embolism Sickle cell disease, type SC Surgical History Surgical History History of hand surgery Tendon surgery on right 5th finger. Family History Family History Grandparent Diabetes mellitus Acute myocardial infarction Sibling Asthma Sibling Asthma Mother Hypertension Sickle cell trait Son Sickle cell trait Daughter Sickle cell trait Grandparent No problems noted. Other Diabetes mellitus Father Sickle cell trait Social History Social History (Updated 12/11/21 @ 18:00 by Kimberlee Santamaria PA-C) Social History: The patient lives in [place] with his family. He is on disability due to sickle cell disease and chronic pain. He is a lifelong nonsmoker and denies alcohol and illicit substance abuse. He uses marijuana to help with pain. He designates his friend, Keyla Luther, as his surrogate decision maker and he wishes to be a full code. Spiritual care concerns: No Agree to blood products: Yes Exam Const: General: healthy appearing, well developed and other (uncomfortable) Nutritional Appearance: average body habitus Orientation/consciousness: patient oriented x3 Limitations: no limitations HENMT: Head: normal to inspection Eyes: Conjunctivae: conjunctivae normal Sclera: sclerae normal Pupils: Equal, round and reactive pupils present EOM: EOMs intact bilaterally Neck: Neck: normal visual inspection, full ROM and no lymphadenopathy Chest: Chest palpation & inspection: normal inspection of the chest Resp: Effort & Inspection: normal respiratory effort and able to speak in complete sentences Auscultation: clear to auscultation bilaterally Cardio: Rate: regular rate Rhythm: regular rhythm Peripheral pulses: Peripheral pulses 2+ throughout GI: Inspection: normal to inspection Auscultation: normal bowel sounds Skin: General skin exam: normal color and no rashes or lesions noted Neuro: General: patient oriented x3 and no focal motor deficits Extrem: General: normal to inspection and full ROM Right lower extremity: normal to inspection and full ROM Left lower extremity: normal to inspection and full ROM Other: mild tenderness to palpatin b/l thighs Psych: Kandy
[2021-12-11 11:42] LABS: Basophils Percent Auto 0.2 % (0.2-1.2); Eosinophils Percent Auto 0.1 % (0-4.4); Hematocrit 31.9 % (42.0-52.0); Hemoglobin 11.6 g/dL (14.0-18.0); Immature Granulocyte Absolute 0.03 K/mm3 (0.00-0.031); Immature Granulocyte Percent A 0.3 % (0-0.5); Immature Reticulocyte Fraction 35.2 % (3.0-15.9); Lymphocytes Absolute Auto 1.97 K/mm3 (0.9-3.2); Lymphocytes Percent Auto 19.4 % (18.3-44.2); Mean Corpuscular HGB Conc 36.4 g/dl (32-36); Mean Corpuscular Hemoglobin 32.1 pg (26-34); Mean Corpuscular Volume 88.4 fl (80-100); Mean Platelet Volume 10.1 fl (7.4-10.4); Monocytes Absolute Auto 0.7 K/mm3 (0.1-0.6); Monocytes Percent Auto 6.8 % (2.6-8.5); Neutrophils Absolute Auto 7.4 K/mm3 (1.3-6.7); Neutrophils Percent Auto 73.2 % (45.5-73.1); Platelet Count Result 377 k/mm3 (150-375); Red Blood Count 3.61 M/mm3 (4.6-6.20); Red Cell Distribution Width 14.6 % (11.5-14.5); Reticulocyte Hemoglobin Conten 34.3 pg (28.2-35.7); Reticulocyte Percent 3.88 % (0.7-4.3); Reticulocytes Absolute 0.14 B/L (32.2-175.7); White Blood Count 10.1 K/mm3 (4.5-10.0)
[2021-12-11] MEDS: SODIUM CHLORIDE 0.9% IV 1,000 ML 999 ML IV CONT (11:47)
[2021-12-11 11:48] LABS: Alanine Aminotransferase 20 U/L (6-50); Albumin Level 4.7 g/dL (3.5-5.1); Alkaline Phosphatase 93 U/L (38-126); Anion Gap 4 mmol/L (8-16); Aspartate Amino Transferase 30 U/L (17-59); Bilirubin,Total 0.7 mg/dL (0.2-1.3); Blood Urea Nitrogen 3 mg/dL (9-20); Calcium 8.9 mg/dL (8.4-10.2); Carbon Dioxide 26 mmol/L (22-30); Chloride 107 mmol/L (98-107); Estimated CRCL calculation 143 ml/min; Estimated Glomerular Filt Rate > 60; Glucose 121 mg/dL (65-110); Potassium 3.6 mmol/L (3.4-5.0); Sodium 137 mmol/L (137-145)
[2021-12-11] MEDS: HYDROmorphone HCL INJ (*CRX) 1 MG/ML SYR IV PUSH (11:48)
[2021-12-11] MEDS: ONDANSETRON INJ 4 MG/2 ML VIAL IV PUSH (11:48)
[2021-12-11 11:54] VITALS: RESP 18; O2SAT 99
[2021-12-11 11:57] VITALS: BP 132/91; PULSE 89; RESP 18; O2SAT 98
[2021-12-11 12:13] LABS: Platelet Estimate Adequate (Adequate); Target Cells 3+ (NORMAL)
[2021-12-11 12:14] LABS: Anisocytosis 1+ (NORMAL); Macrocytosis 1+ (NORMAL); Sickle Cells 1+ (NORMAL)
[2021-12-11] MEDS: HYDROmorphone HCL INJ (*CRX) 1 MG/ML SYR 2 MG IV PUSH ×2 (12:45→16:00)
--- NOTE | 2021-12-11 14:00 | PM.IMHP ---
H&P: HPI History of Present Illness Date/Time: 12/11/21 14:05 Chief Complaint: Acute on chronic pain. Narrative: This is a pleasant 36-year-old male with history of hemoglobin SC disease, chronic pain syndrome related to sickle cell disease, and DVT and PE on anticoagulation who presented to the emergency department via private vehicle from home for evaluation of acute on chronic pain. He has daily pain related to his sickle cell disease for which he takes methadone 10 mg 3 times daily. Over the past 3 to 4 days he has had increasing pain from baseline for which he has been taking Percocet 10-325 mg q.4-6 hours of which he is prescribed for breakthrough pain. Unfortunately it has not provided him with any significant relief he presented today for evaluation. He complains of musculoskeletal pain mainly in the legs, low back, and ribs which is pretty typical for his pain crises. At the time my evaluation he is resting comfortably on his current regimen. He denies fever, chills, sweats, cold and flu symptoms, chest pain, shortness breast, nausea, vomiting, and diarrhea. Review of Systems Review of Systems: Twelve systems were reviewed and are negative except for as per HPI. [facility] Past Medical History Medical History (Updated 12/11/21 @ 14:03 by Kimberlee Santamaria PA-C) Acute chest syndrome Chronic anticoagulation Due to history of DVT and pulmonary embolism. Chronic narcotic use On methadone with oxycodone for chronic pain related to sickle cell disease. 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 Deep venous thrombosis Noncompliance History of noncompliance with anticoagulation and hydroxyurea. Pulmonary embolism Sickle cell disease, type SC Surgical History Surgical History History of hand surgery Tendon surgery on right 5th finger. Family History Family History Grandparent Diabetes mellitus Acute myocardial infarction Sibling Asthma Sibling Asthma Mother Hypertension Sickle cell trait Son Sickle cell trait Daughter Sickle cell trait Grandparent No problems noted. Other Diabetes mellitus Father Sickle cell trait Social History Social History (Updated 12/11/21 @ 18:00 by Kimberlee Santamaria PA-C) Social History: The patient lives in [place] with his family. He is on disability due to sickle cell disease and chronic pain. He is a lifelong nonsmoker and denies alcohol and illicit substance abuse. He uses marijuana to help with pain. He designates his friend, Keyla Luther, as his surrogate decision maker and he wishes to be a full code. Spiritual care concerns: No Agree to blood products: Yes Meds Home Medications and Allergies Home Medications Medication Instructions Recorded Confirmed Type folic acid 1 mg tablet 1 mg PO DAILY 02/16/19 12/11/21 History methadone 10 mg tablet 10 mg PO TID 08/22/20 12/11/21 History oxycodone-acetaminophen 10 mg-325 1 tablet PO BID PRN Pain, Moderate 08/22/20 12/11/21 History mg tablet ibuprofen 800 mg tablet 800 mg PO Q6H PRN Pain 11/12/21 12/11/21 History hydroxyurea 500 mg capsule 500 mg PO QAM #30 caps 11/23/21 12/11/21 Rx warfarin 7.5 mg tablet 10 mg PO DAILY 12/11/21 12/11/21 History Allergies Allergy/AdvReac Type Severity Reaction Status Date / Time Fish Containing Products Allergy Mild Itching Verified 12/11/21 14:49 Vital Signs Vital Signs - 24 hr 12/11/21 09:42 12/11/21 11:54 12/11/21 11:57 Temperature 99.3 F Pulse Rate 107 H 89 Respiratory Rate 20 18 18 Blood Pressure 130/76 132/91 H Pulse Oximetry 100 99 98 Oxygen Delivery Room Air Exam Narrative: General: Well-developed, nontoxic-appearing male sitting up in bed. Appears to be in mild pain, an hour so after receiving IV pain medications. Weight: 95.45 kg. BMI: 30.2. HEENT: PERRL, EOMI. Sclerae anicteric. Moist mucou
[2021-12-11 14:22] VITALS: BP 118/91; PULSE 87; RESP 18; O2SAT 97
[2021-12-11 14:40] VITALS: BP 124/83; PULSE 90; RESP 18; TEMP 36.9; O2SAT 97
[2021-12-11 16:35] LABS: INR 1.4
[2021-12-11 16:36] LABS: Partial Thromboplastin Time 27.6 SECONDS (22.3-36.8)
[2021-12-11] MEDS: methADONE HCL (*CRX) 10 MG TABLET PO ×2 (17:08→20:04)
[2021-12-11 17:14] LABS: Lactate Dehydrogenase 208 U/L (120-246)
[2021-12-11] MEDS: WARFARIN (*PBKC) 10 MG TABLET PO (17:44)
[2021-12-11] MEDS: HYDROmorphone HCL INJ (*CRX) 1 MG/ML SYR 3 MG IV PUSH ×2 (19:03→21:49)
[2021-12-11] MEDS: ENOXAPARIN 100 MG/ML SYRINGE 95 MG SUB-Q (20:04)
[2021-12-11 22:15] VITALS: BP 113/70; PULSE 92; RESP 18; TEMP 36.1; O2SAT 97
[2021-12-12] MEDS: HYDROmorphone HCL INJ (*CRX) 1 MG/ML SYR 3 MG IV PUSH ×7 (01:15→21:41)
[2021-12-12 05:23] LABS: INR 1.7
[2021-12-12] MEDS: ENOXAPARIN 100 MG/ML SYRINGE 95 MG SUB-Q ×2 (06:10→17:39)
[2021-12-12 06:54] VITALS: BP 126/74; PULSE 81; RESP 18; TEMP 36.1; O2SAT 95
[2021-12-12 08:18] VITALS: O2SAT 92
[2021-12-12] MEDS: FOLIC ACID 1 MG TABLET PO (08:39)
[2021-12-12] MEDS: HYDROXYUREA (*CHEMO) 500 MG CAPSULE PO (08:39)
[2021-12-12] MEDS: methADONE HCL (*CRX) 10 MG TABLET PO ×3 (08:42→20:07)
--- NOTE | 2021-12-12 11:03 | PM.IMPN ---
Progress Note: A&P Assessment and Plan (1) Sickle cell pain crisis: Code(s): D57.00 - Hb-SS disease with crisis, unspecified Status: Acute Assessment and Plan: Continue pain control while in hospital. (2) Sickle cell disease, type SC: Qualifiers: Sickle-cell associated disorders: without crisis Qualified Code(s): D57.20 - Sickle-cell/Hb-C disease without crisis Code(s): D57.20 - Sickle-cell/Hb-C disease without crisis Status: Chronic (3) Chronic anticoagulation: Code(s): Z79.01 - detention (current) use of anticoagulants Status: Chronic (4) Chronic narcotic use: Code(s): F11.90 - Opioid use, unspecified, uncomplicated Status: Chronic Subjective Date/time seen: 12/12/21 11:03 Still having pain Exam Narrative: General: Well-developed, nontoxic-appearing male sitting up in bed. Appears to be in mild pain, an hour so after receiving IV pain medications. Weight: 95.45 kg. BMI: 30.2. HEENT: PERRL, EOMI. Sclerae anicteric. Moist mucous membranes. Neck: Supple. Respiratory: Lungs are clear to auscultation bilaterally. Cardiovascular: Regular rate and rhythm with S1-S2. Gastrointestinal: Abdomen is soft, nontender, and nondistended with positive bowel sounds. Skin: Warm and dry. No rash or lesions on limited exam. Extremities: No cyanosis, clubbing, or edema. Radial and pedal pulses intact. No knots or cords. Negative Mariama sign. Neurological: Alert. Cranial nerves 2-12 are grossly intact. No gross focal deficits to casual conversation. Psychiatric: Pleasant and cooperative with appropriate mood and affect. Objective Data Vital Signs Vital Signs: Vital Signs - 24 hr 12/11/21 11:54 12/11/21 11:57 12/11/21 14:22 Temperature Pulse Rate 89 87 Respiratory Rate 18 18 18 Blood Pressure 132/91 H 118/91 H Pulse Oximetry 99 98 97 Oxygen Delivery 12/11/21 14:40 12/11/21 22:15 12/12/21 06:54 Temperature 98.5 F 97.0 F L 97.0 F L Pulse Rate 90 92 81 Respiratory Rate 18 18 18 Blood Pressure 124/83 113/70 126/74 Pulse Oximetry 97 97 95 Oxygen Delivery 12/12/21 08:18 Temperature Pulse Rate Respiratory Rate Blood Pressure Pulse Oximetry 92 Oxygen Delivery Room Air Intake/Output Intake/Output: Intake & Output 12/09/21 12/10/21 12/11/21 12/12/21 23:59 23:59 23:59 23:59 Intake Total 1570 850 Output Total 375 1200 Balance 1195 -350 Meds/Results Medications: Active Medications Generic Name Dose Route Start Last Admin Trade Name Freq PRN Reason Stop Dose Admin Enoxaparin Sodium 95 mg 12/11/21 18:00 12/12/21 06:10 Enoxaparin 100 Mg/Ml Syringe SUB-Q 95 mg Q12H CHRISTOPHER Administration Folic Acid 1 mg 12/12/21 09:00 12/12/21 08:39 Folic Acid 1 Mg Tablet PO 1 mg DAILY CHRISTOPHER Administration Hydromorphone HCl 3 mg 12/11/21 18:13 12/12/21 08:40 Hydromorphone Hcl Inj (*Crx) 1 Mg/Ml Syr IV PUSH 3 mg Q3H PRN Administration Pain Rated 7-10 Hydroxyurea 500 mg 12/12/21 09:00 12/12/21 08:39 Hydroxyurea (*Chemo) 500 Mg Capsule PO 500 mg QAM CHRISTOPHER Administration Ibuprofen 800 mg 12/11/21 15:42 Ibuprofen 400 Mg Tablet PO Q6H PRN Pain Rated 1-3 Methadone HCl 10 mg 12/11/21 17:00 12/12/21 08:42 Methadone Hcl (*Crx) 10 Mg Tablet PO 10 mg 0900,1700,2100 [facility] Administration Oxycodone/Acetaminophen 1 tab 12/11/21 15:32 Oxycodone/Acetaminophen (*Crx) 10-325 Mg Tablet PO BID PRN Pain, Moderate 4-6 Warfarin Sodium 10 mg 12/11/21 17:00 12/11/21 17:44 Warfarin (*Pbkc) 10 Mg Tablet PO 10 mg DAILY@1700 [facility] Administration Labs Labs: Laboratory Results - last 24 hr 12/11/21 12/11/21 12/11/21 11:28 11:28 11:28 WBC 10.1 H RBC 3.61 L Hgb 11.6 L Hct 31.9 L MCV 88.4 MCH 32.1 MCHC 36.4 H RDW 14.6 H Plt Count 377 H MPV 10.1 Immature Gran % (Auto) 0.3 Neut % (Auto) 73.2 H Lymph % (Auto)
[2021-12-12 14:10] VITALS: BP 110/71; PULSE 103; RESP 14; TEMP 36.3; O2SAT 96
[2021-12-12] MEDS: WARFARIN (*PBKC) 10 MG TABLET PO (16:49)
--- NOTE | 2021-12-12 19:57 | PC.NURSE ---
On 12/12/21, the License pending RN Consuelo Painting, provided care and completed [email or web address] documentation on this patient. I have reviewed her documentation and agree with the findings.
[2021-12-12 21:22] VITALS: BP 113/78; PULSE 89; RESP 18; TEMP 36.9; O2SAT 97
[2021-12-13] MEDS: HYDROmorphone HCL INJ (*CRX) 1 MG/ML SYR 3 MG IV PUSH ×7 (00:36→22:36)
[2021-12-13 05:27] VITALS: BP 112/70; PULSE 88; RESP 18; TEMP 36.7; O2SAT 92
[2021-12-13] MEDS: ENOXAPARIN 100 MG/ML SYRINGE 95 MG SUB-Q (05:40)
[2021-12-13 08:07] LABS: INR 2.1; Prothrombin Time 22.4 Seconds (11.1-14.7)
[2021-12-13 09:25] VITALS: PULSE 88; RESP 18; O2SAT 92
[2021-12-13] MEDS: HYDROXYUREA (*CHEMO) 500 MG CAPSULE PO (09:29)
[2021-12-13] MEDS: FOLIC ACID 1 MG TABLET PO (09:29)
[2021-12-13] MEDS: methADONE HCL (*CRX) 10 MG TABLET PO ×3 (09:33→21:45)
--- NOTE | 2021-12-13 15:39 | PM.IMPN ---
Progress Note: A&P Assessment and Plan (1) Sickle cell pain crisis: Code(s): D57.00 - Hb-SS disease with crisis, unspecified Status: Acute Assessment and Plan: presented with acute on chronic pain secondary to sickle cell disease hemoglobin is stable with normal %reticulocyte and LDH continue supportive care analgesics as needed folic acid and hydroxyurea (2) Sickle cell disease, type SC: Qualifiers: Sickle-cell associated disorders: without crisis Qualified Code(s): D57.20 - Sickle-cell/Hb-C disease without crisis Code(s): D57.20 - Sickle-cell/Hb-C disease without crisis Status: Chronic Assessment and Plan: followed by hematology plan as above (3) Chronic anticoagulation: Code(s): Z79.01 - senior living (current) use of anticoagulants Status: Chronic Assessment and Plan: Secondary to history of VTE INR subtherapeutic on admission and was bridged with Lovenox INR is 2.1 today therefore will discontinue Lovenox Continue warfarin. May need dose increase but will monitor on typical 10 mg dose (4) Chronic narcotic use: Code(s): F11.90 - Opioid use, unspecified, uncomplicated Status: Chronic Assessment and Plan: Secondary to chronic sickle cell pain See above Subjective Date/time seen: 12/13/21 15:39 Interval history: Date of service: 12/13/2021 Quan Downing is a 36-year-old male with a history of sickle cell disease, chronic pain syndrome secondary to sickle cell disease, DVT and PE on chronic anticoagulation who is seen in follow-up for sickle cell pain crisis. He feels a bit better today. He states overall his pain is slightly improved to 7/10. He endorses 6-7/10 pain in his back and legs. His pain in his ribs has resolved. He denies shortness of breath, cough, chest pain. Denies nausea, vomiting, fever, chills. He is tolerating his diet. He is resting comfortably at this time. Review of Systems Review of Systems: All systems reviewed & are unremarkable except as noted in HPI and below Exam Narrative: General: Well-nourished, well-appearing 36-year-old male, sitting up in bed, comfortable, NARD Neuro: awake, alert and oriented x4, speech clear, no focal neuro deficits noted HEENMT: normocephalic, atraumatic, EOMI, sclerae anicteric Respiratory: clear to auscultation bilaterally, nonlabored breathing Cardio: regular rate, regular rhythm with S1-S2 Abdomen: nondistended, normoactive bowel sounds, soft, nontender to palpation Extremities: no edema, erythema, or tenderness to palpation, DP pulses 2+ bilaterally Skin: no rashes or lesions, warm and dry Psych: appropriate mood and affect, judgment and insight intact Objective Data Vital Signs Vital Signs: Vital Signs - 24 hr 12/12/21 21:22 12/12/21 20:00 12/13/21 05:27 Temperature 98.4 F 98.1 F Pulse Rate 89 88 Respiratory Rate 18 18 Blood Pressure 113/78 112/70 Pulse Oximetry 97 92 Oxygen Delivery Room Air 12/13/21 09:25 Temperature Pulse Rate 88 Respiratory Rate 18 Blood Pressure Pulse Oximetry 92 Oxygen Delivery Room Air Intake/Output Intake/Output: Intake & Output 12/10/21 12/11/21 12/12/21 12/13/21 23:59 23:59 23:59 23:59 Intake Total 1570 1240 730 Output Total 375 1950 700 Balance 1195 -710 30 Meds/Results Medications: Active Medications Generic Name Dose Route Start Last Admin Trade Name Freq PRN Reason Stop Dose Admin Enoxaparin Sodium 95 mg 12/11/21 18:00 12/13/21 05:40 Enoxaparin 100 Mg/Ml Syringe SUB-Q 95 mg Q12H CHRISTOPHER Administration Folic Acid 1 mg 12/12/21 09:00 12/13/21 09:29 Folic Acid 1 Mg Tablet PO 1 mg DAILY CHRISTOPHER Administration Hydromorphone HCl 3 mg 12/11/21 18:13 12/13/21 15:10 Hydromorphone Hcl Inj (*Crx) 1 Mg/Ml Syr IV PUSH 3 mg Q3H PRN Administration Pain Rated 7-10 Hydroxyurea 500 mg 12/12/21 09:00 12/13/21 09:29
[2021-12-13 16:10] VITALS: BP 118/74; PULSE 94; RESP 16; TEMP 37; O2SAT 96
[2021-12-13] MEDS: WARFARIN (*PBKC) 10 MG TABLET PO (16:30)
[2021-12-13 20:11] VITALS: BP 124/80; PULSE 90; RESP 18; TEMP 36.6; O2SAT 95
[2021-12-14] MEDS: HYDROmorphone HCL INJ (*CRX) 1 MG/ML SYR 3 MG IV PUSH ×4 (02:27→12:16)
[2021-12-14 04:34] LABS: Basophils Absolute Auto 0.1 K/mm3 (0.0-0.1); Basophils Percent Auto 0.9 % (0.2-1.2); Eosinophils Absolute Auto 0.3 K/mm3 (0-0.3); Hematocrit 31.8 % (42.0-52.0); Hemoglobin 11.1 g/dL (14.0-18.0); Immature Granulocyte Absolute 0.04 K/mm3 (0.00-0.031); Immature Granulocyte Percent A 0.4 % (0-0.5); Lymphocytes Absolute Auto 3.66 K/mm3 (0.9-3.2); Mean Corpuscular HGB Conc 34.9 g/dl (32-36); Mean Corpuscular Hemoglobin 31.7 pg (26-34); Mean Corpuscular Volume 90.9 fl (80-100); Mean Platelet Volume 9.9 fl (7.4-10.4); Monocytes Percent Auto 9.7 % (2.6-8.5); Neutrophils Absolute Auto 5.4 K/mm3 (1.3-6.7); Nucleated Red Blood Cells Perc 0.2 % (0.0-0.2); Platelet Count Result 329 k/mm3 (150-375); Red Cell Distribution Width 14.7 % (11.5-14.5); White Blood Count 10.5 K/mm3 (4.5-10.0)
[2021-12-14 04:45] LABS: INR 2.2; Prothrombin Time 23.6 Seconds (11.1-14.7)
[2021-12-14 04:55] LABS: Anion Gap 12 mmol/L (8-16); Blood Urea Nitrogen 9 mg/dL (9-20); Calcium 8.8 mg/dL (8.4-10.2); Carbon Dioxide 27 mmol/L (22-30); Chloride 103 mmol/L (98-107); Estimated CRCL calculation 143 ml/min; Estimated Glomerular Filt Rate > 60; Glucose 134 mg/dL (65-110); Lactate Dehydrogenase 222 U/L (120-246); Potassium 3.7 mmol/L (3.4-5.0); Sodium 142 mmol/L (137-145)
[2021-12-14 06:25] VITALS: BP 120/78; PULSE 81; RESP 16; TEMP 36.4; O2SAT 93
[2021-12-14] MEDS: HYDROXYUREA (*CHEMO) 500 MG CAPSULE PO (09:08)
[2021-12-14] MEDS: methADONE HCL (*CRX) 10 MG TABLET PO (09:08)
[2021-12-14] MEDS: FOLIC ACID 1 MG TABLET PO (09:08)
[2021-12-14 13:45] VITALS: BP 131/78; PULSE 98; RESP 16; TEMP 35.8; O2SAT 96
--- NOTE | 2021-12-14 13:48 | PM.DS ---
DS: Admitting Diagnosis Discharge Date 12/14/2021 Admitting Diagnosis sickle cell pain crisis DS: Discharge Diagnosis Discharge Diagnosis (1) Sickle cell pain crisis: Code(s): D57.00 - Hb-SS disease with crisis, unspecified Status: Acute Assessment and Plan: presented with acute on chronic pain secondary to sickle cell disease hemoglobin remained stable with normal percent reticulocyte and LDH Supportive care provided with symptomatic improvement Continue home pain regimen of methadone TID with oxycodone-acetaminophen as needed for breakthrough pain Continue folic acid and hydroxyurea (2) Sickle cell disease, type SC: Qualifiers: Sickle-cell associated disorders: without crisis Qualified Code(s): D57.20 - Sickle-cell/Hb-C disease without crisis Code(s): D57.20 - Sickle-cell/Hb-C disease without crisis Status: Chronic Assessment and Plan: followed by hematology plan as above (3) Chronic anticoagulation: Code(s): Z79.01 - [facility] (current) use of anticoagulants Status: Chronic Assessment and Plan: Secondary to history of VTE INR subtherapeutic on admission and was bridged with Lovenox 12/13 INR in therapeutic [place] therefore Lovenox discontinued Continue home warfarin 10 mg daily. Repeat INR on 12/19 (unable to repeat sooner due to long holiday weekend). 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 (4) Chronic narcotic use: Code(s): F11.90 - Opioid use, unspecified, uncomplicated Status: Chronic Assessment and Plan: Secondary to chronic sickle cell pain See above DS: Summary Hospital Course Hospital Course: Date of admission: 12/11/2021 Date of discharge: 12/14/2021 Quan Downing is a 36-year-old male with a history of sickle cell disease, chronic pain syndrome secondary to sickle cell disease, DVT and PE on chronic anticoagulation? who presented to the emergency department on 12/11/2021? with complaints bilateral upper thigh and rib pain ongoing for a couple of days consistent with previous symptoms of sickle cell crisis. On presentation to the ED, he was mildly tachycardic with additional vital signs stable, WBC 10.1, hemoglobin 11.6, hematocrit 31.9, platelets 377, percent retic count normal. he was admitted to the hospitalist service for further evaluation and management. Please see above for further details. Analgesics provided for adequate pain control. Patient had eventual improvement of his symptoms and requested discharge home as he was feeling back to his usual state of health. INR was subtherapeutic on presentation and he was bridged with Lovenox. INR improved to therapeutic range and he will continue his home warfarin. Given the patient's overall improvement, he was determined to no longer require inpatient care and was discharged in hemodynamically stable condition on 12/14/2021. He will follow-up with his offset printer as an outpatient. He will obtain outpatient INR to ensure remaining stable on his typical warfarin dose. Results will be forwarded to his offset printer. Time Spent with Patient Time attestation: Total time spent providing and/or coordinating discharge services: 33 minutes Time spent: Greater than 30 minutes Exam Narrative: General: Well-nourished, well-appearing 36-year-old male, sitting up in bed, comfortable, NARD Neuro: awake, alert and oriented x4, speech clear, no focal neuro deficits noted HEENMT: normocephalic, atraumatic, EOMI, sclerae anicteric Respiratory: clear to auscultation bilaterally, nonlabored breathing Cardio: regular rate, regular rhythm with S1-S2 Abdomen: nondistended, normoactive bowel sounds, soft, nontender to palpation Extremities: no edema, erythema, or tenderness to palpation, DP pulses 2+ bilaterally Skin: no rashes or lesions, warm and dry Psych: appropriate mood and affect, judgment and insight intact DS: Data Data Completed and Pend
== END 2021-12-14 14:45 | disposition home or self-care (01) | DRG 662 ==
LOC: ANHED 13:37 → ANH2MED 14:09
PROVIDERS: Nurse Practitioner Family; Physician Assistant; Admitting Provider Family Medicine; Emergency Provider Emergency Medicine; Visit Provider Family Medicine
DX: D57.00 Hb-SS disease with crisis, unspecified (principal); G89.4 Chronic pain syndrome; Z79.01 Long term (current) use of anticoagulants; Z86.718 Personal history of other venous thrombosis and embolism; Z86.711 Personal history of pulmonary embolism; Z79.891 Long term (current) use of opiate analgesic
CPT/HCPCS: 36415; 80048; 80053; 83615; 85025; 85046; 85610; 85730; 96361; 96372; 96374; 96375; 96376; 99285; A9270; G0378; G0379; J1170; J1650; J2405; J7030

== ENCOUNTER 2022-01-08 11:32 | Inpatient (IN) | payer OTHER, SELFPAY ==
--- NOTE | ~2022-01-08 | XR_ITS ---
EXAMINATION: XR chest 1V portable INDICATION: Leukocytosis TECHNIQUE: Portable AP chest at 1625 hours COMPARISON: 11/12/2021 FINDINGS: There is chronic scarring of the lung bases. No acute airspace opacities are identified. No pleural effusion or pneumothorax. The cardiomediastinal silhouette is normal. IMPRESSION: 1. No acute cardiopulmonary abnormality. Reviewed, dictated and finalized at location A.
[2022-01-08 11:59] VITALS: BP 142/71; PULSE 108; RESP 16; TEMP 36.3; O2SAT 100
[2022-01-08 13:06] VITALS: RESP 18; O2SAT 98
[2022-01-08 13:26] LABS: Basophils Absolute Auto 0.1 K/mm3 (0.0-0.1); Basophils Percent Auto 0.4 % (0.2-1.2); Eosinophils Absolute Auto 0.1 K/mm3 (0-0.3); Eosinophils Percent Auto 0.3 % (0-4.4); Hematocrit 31.2 % (42.0-52.0); Hemoglobin 11.1 g/dL (14.0-18.0); Immature Granulocyte Percent A 0.5 % (0-0.5); Immature Platelet Fraction Pct 4.1 % (0.9-11.2); Immature Reticulocyte Fraction 29.5 % (3.0-15.9); Lymphocytes Absolute Auto 2.02 K/mm3 (0.9-3.2); Lymphocytes Percent Auto 10.7 % (18.3-44.2); Mean Corpuscular HGB Conc 35.6 g/dl (32-36); Mean Corpuscular Hemoglobin 31.9 pg (26-34); Mean Corpuscular Volume 89.7 fl (80-100); Mean Platelet Volume 10.1 fl (7.4-10.4); Monocytes Absolute Auto 1.2 K/mm3 (0.1-0.6); Monocytes Percent Auto 6.2 % (2.6-8.5); Neutrophils Absolute Auto 15.4 K/mm3 (1.3-6.7); Neutrophils Percent Auto 81.9 % (45.5-73.1); Nucleated Red Blood Cells Perc 0.1 % (0.0-0.2); Platelet Count Result 387 k/mm3 (150-375); Red Blood Count 3.48 M/mm3 (4.6-6.20); Red Cell Distribution Width 14.2 % (11.5-14.5); Reticulocyte Hemoglobin Conten 31.9 pg (28.2-35.7); Reticulocyte Percent 4.71 % (0.7-4.3); Reticulocytes Absolute 0.16 B/L (32.2-175.7); White Blood Count 18.9 K/mm3 (4.5-10.0)
[2022-01-08 13:34] LABS: Alanine Aminotransferase 23 U/L (6-50); Albumin Level 4.5 g/dL (3.5-5.1); Alkaline Phosphatase 90 U/L (38-126); Anion Gap 8 mmol/L (8-16); Aspartate Amino Transferase 32 U/L (17-59); Bilirubin,Total 0.9 mg/dL (0.2-1.3); Blood Urea Nitrogen 5 mg/dL (9-20); Calcium 8.9 mg/dL (8.4-10.2); Carbon Dioxide 25 mmol/L (22-30); Chloride 106 mmol/L (98-107); Estimated CRCL calculation 149 ml/min; Estimated Glomerular Filt Rate > 60; Glucose 120 mg/dL (65-110); Potassium 3.8 mmol/L (3.4-5.0); Sodium 139 mmol/L (137-145)
[2022-01-08 13:37] LABS: INR 1.3; Partial Thromboplastin Time 27.9 SECONDS (22.3-36.8); Prothrombin Time 15.3 Seconds (11.1-14.7)
--- NOTE | 2022-01-08 14:21 | ED.GENADULT ---
HPI - General Adult General Chief complaint: Unspecified Stated complaint: sickle cell crisis Time Seen by Provider: 01/08/22 13:41 History of Present Illness HPI narrative: Pt presents with sickle cell pain to thighs, ribs and back. Pt had similar pain a month ago and has been better until yesterday when symptoms started again. Pt denies chest or abdominal pain or SOB. Related Data Home Medications Medication Instructions Recorded Confirmed folic acid 1 mg tablet 1 mg PO DAILY 02/16/19 12/11/21 methadone 10 mg tablet 10 mg PO TID 08/22/20 12/11/21 oxycodone-acetaminophen 10 mg-325 1 tablet PO BID PRN Pain, Moderate 08/22/20 12/11/21 mg tablet ibuprofen 800 mg tablet 800 mg PO Q6H PRN Pain 11/12/21 12/11/21 warfarin 7.5 mg tablet 10 mg PO DAILY 12/11/21 12/11/21 Allergies Allergy/AdvReac Type Severity Reaction Status Date / Time Fish Containing Products Allergy Mild Itching Verified 12/11/21 14:49 Review of Systems Review of Systems: All systems reviewed & are unremarkable except as noted in HPI and below PMFSH Past Medical History Medical History Acute chest syndrome Chronic anticoagulation Due to history of DVT and pulmonary embolism. Chronic narcotic use On methadone with oxycodone for chronic pain related to sickle cell disease. 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 Deep venous thrombosis Noncompliance History of noncompliance with anticoagulation and hydroxyurea. Pulmonary embolism Sickle cell disease, type SC Surgical History Surgical History History of hand surgery Tendon surgery on right 5th finger. Family History Family History Grandparent Diabetes mellitus Acute myocardial infarction Sibling Asthma Sibling Asthma Mother Hypertension Sickle cell trait Son Sickle cell trait Daughter Sickle cell trait Grandparent No problems noted. Other Diabetes mellitus Father Sickle cell trait Social History Social History Social History: The patient lives in [place] with his family. He is on disability due to sickle cell disease and chronic pain. He is a lifelong nonsmoker and denies alcohol and illicit substance abuse. He uses marijuana to help with pain. He designates his friend, Keyla Luther, as his surrogate decision maker and he wishes to be a full code. Spiritual care concerns: No Agree to blood products: Yes Exam Const: General: cooperative, healthy appearing and no acute distress Nutritional Appearance: average body habitus Orientation/consciousness: patient oriented x3 Limitations: no limitations HENMT: Head: normal to inspection Face and sinus: normal facial exam Mouth: Yes Normal oral and palatal mucosa present Throat: posterior oropharynx normal Eyes: General: appearance normal, both eyes and all related structures Neck: Neck: normal visual inspection, full ROM and no lymphadenopathy Chest: Chest palpation & inspection: normal inspection of the chest Resp: Effort & Inspection: normal respiratory effort and able to speak in complete sentences Auscultation: clear to auscultation bilaterally Cardio: Rate: regular rate Rhythm: regular rhythm GI: Inspection: normal to inspection GI Palp: Yes Soft to palpation and Yes No hepatosplenomegaly present Percussion: Yes normal to percussion Auscultation: normal bowel sounds Back/Spine/Pelvis: Back: back tenderness Skin: General skin exam: normal color and no rashes or lesions noted Neuro: General: patient oriented x3, moves all extremities, no focal motor deficits and CN's II-XI intact bilaterally Extrem: General: normal to inspection, full ROM, capillary refill normal and no clubbing, cyanosis or edema Psych: Appearance: grossly normal Mental St
[2022-01-08 14:30] LABS: Platelet Estimate Increased (Adequate)
[2022-01-08 14:31] LABS: Anisocytosis 2+ (NORMAL); Sickle Cells 1+ (NORMAL); Target Cells 2+ (NORMAL)
[2022-01-08] MEDS: SODIUM CHLORIDE 0.9% IV 1,000 ML 999 ML IV CONT (14:32)
[2022-01-08] MEDS: ONDANSETRON INJ 4 MG/2 ML VIAL IV PUSH (14:33)
[2022-01-08] MEDS: HYDROmorphone HCL INJ (*CRX) 1 MG/ML SYR IV PUSH (14:33)
[2022-01-08 14:38] VITALS: BP 119/67; PULSE 72; RESP 18; O2SAT 98
[2022-01-08] MEDS: HYDROmorphone HCL INJ (*CRX) 1 MG/ML SYR 2 MG IV PUSH (15:27)
[2022-01-08 16:00] VITALS: BP 118/83; PULSE 73; RESP 18; O2SAT 99
[2022-01-08] MEDS: SODIUM CHLORIDE 0.9% IV 1,000 ML 150 ML IV CONT (16:36)
--- NOTE | 2022-01-08 16:45 | PM.IMHP ---
H&P: HPI History of Present Illness Date/Time: 01/08/22 16:45 Chief Complaint: Acute on chronic pain. Narrative: This is a pleasant 36-year-old male with history of hemoglobin SC disease, chronic pain syndrome related to sickle cell disease, and DVT and PE on anticoagulation who presented to the emergency department via private vehicle from home for evaluation of acute on chronic pain. He has daily pain related to his sickle cell disease for which he takes methadone 10 mg TID. Over the last couple of days he has had increasing pain from his baseline, mainly musculoskeletal pain in the legs, ribs, and back. He has Percocet 10-325 mg which he has been taking every 4 to 6 hours but unfortunately that is not providing him with longstanding relief. He was hydrated and given dilaudid 3 mg in the emergency department though unfortunately he continues to have pain and he is being admitted in this setting. He is not having any chest pain, pleuritic pain, or shortness of breath. He also denies fever, chills, sweats, cold and flu symptoms, nausea, vomiting, and diarrhea. Review of Systems Review of Systems: Twelve systems were reviewed and are negative except for as per HPI. [facility] [place] Past Medical History Medical History Acute chest syndrome Chronic anticoagulation Due to history of DVT and pulmonary embolism. Chronic narcotic use On methadone with oxycodone for chronic pain related to sickle cell disease. 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 Deep venous thrombosis Noncompliance History of noncompliance with anticoagulation and hydroxyurea. Pulmonary embolism Sickle cell disease, type SC Surgical History Surgical History History of hand surgery Tendon surgery on right 5th finger. Family History Family History Grandparent Diabetes mellitus Acute myocardial infarction Sibling Asthma Sibling Asthma Mother Hypertension Sickle cell trait Son Sickle cell trait Daughter Sickle cell trait Grandparent No problems noted. Other Diabetes mellitus Father Sickle cell trait Social History Social History Social History: The patient lives in [place] with his family. He is on disability due to sickle cell disease and chronic pain. He is a lifelong nonsmoker and denies alcohol and illicit substance abuse. He uses marijuana to help with pain. He designates his friend, Keyla Luther, as his surrogate decision maker and he wishes to be a full code. Spiritual care concerns: No Agree to blood products: Yes Meds Home Medications and Allergies Home Medications Medication Instructions Recorded Confirmed Type folic acid 1 mg tablet 1 mg PO DAILY 02/16/19 12/11/21 History methadone 10 mg tablet 10 mg PO TID 08/22/20 12/11/21 History oxycodone-acetaminophen 10 mg-325 1 tablet PO BID PRN Pain, Moderate 08/22/20 12/11/21 History mg tablet ibuprofen 800 mg tablet 800 mg PO Q6H PRN Pain 11/12/21 12/11/21 History hydroxyurea 500 mg capsule 500 mg PO QAM #30 caps 11/23/21 12/11/21 Rx warfarin 7.5 mg tablet 10 mg PO DAILY 12/11/21 12/11/21 History Allergies Allergy/AdvReac Type Severity Reaction Status Date / Time Fish Containing Products Allergy Mild Itching Verified 12/11/21 14:49 Vital Signs Vital Signs - 24 hr 01/08/22 11:59 01/08/22 13:06 01/08/22 14:38 Temperature 97.3 F L Pulse Rate 108 H 72 Respiratory Rate 16 18 18 Blood Pressure 142/71 H 119/67 Pulse Oximetry 100 98 98 01/08/22 16:00 Temperature Pulse Rate 73 Respiratory Rate 18 Blood Pressure 118/83 Pulse Oximetry 99 Exam Narrative: General: Nontoxic-appearing male sitting up in bed in no distress. He has just received IV pain medications however. Weight: 104 kilograms. BMI
[2022-01-08 16:47] LABS: SARS-CoV-2 RNA PCR Negative
[2022-01-08 17:48] LABS: Lactate Dehydrogenase 205 U/L (120-246)
[2022-01-08 20:40] VITALS: BP 117/61; PULSE 85; RESP 18; TEMP 36.4; O2SAT 100; BMI 33.0
[2022-01-08] MEDS: ENOXAPARIN 120 MG/0.8 ML SYRINGE 105 MG SUB-Q (20:52)
[2022-01-08] MEDS: HYDROmorphone HCL INJ (*CRX) 1 MG/ML SYR 3 MG IV PUSH (20:57)
--- NOTE | 2022-01-08 21:31 | ADMGEN ---
This patient, Quan Downing, was admitted to [facility] Surg Room 321-01. Patient/family oriented to hospital policies and general routines including ID bracelet, bed and alarms, visiting hours, pain management, procedures, bathroom and other care routines, personal items, smoking policy, room service/diet, and visiting hours. Information on how to activate the Rapid Response Team has been discussed. Patient/Family are encouraged to report perceived risks to care and to ask questions if they do not understand what they are told or what they should do.
[2022-01-09] VITALS (7 sets, daily range): BP systolic 103–120; BP diastolic 57–72; PULSE 78–102; RESP 10–18; TEMP 36.1–36.6; O2SAT 94–98
[2022-01-09] MEDS: SODIUM CHLORIDE 0.9% IV 1,000 ML 150 ML IV CONT ×4 (00:15→20:42)
[2022-01-09] MEDS: oxyCODONE/ACETAMINOPHEN (*CRX) 10-325 MG TABLET 1 TAB PO ×2 (00:16→14:04)
[2022-01-09] MEDS: WARFARIN (*PBKC) 4 MG TABLET 12 MG PO ×2 (00:16→18:43)
[2022-01-09] MEDS: HYDROmorphone HCL INJ (*CRX) 1 MG/ML SYR 3 MG IV PUSH ×7 (00:16→21:47)
[2022-01-09 05:59] LABS: Basophils Absolute Auto 0.1 K/mm3 (0.0-0.1); Basophils Percent Auto 0.5 % (0.2-1.2); Eosinophils Absolute Auto 0.2 K/mm3 (0-0.3); Eosinophils Percent Auto 1.4 % (0-4.4); Hematocrit 28.4 % (42.0-52.0); Immature Granulocyte Absolute 0.05 K/mm3 (0.00-0.031); Immature Granulocyte Percent A 0.4 % (0-0.5); Lymphocytes Absolute Auto 4.16 K/mm3 (0.9-3.2); Mean Corpuscular HGB Conc 35.2 g/dl (32-36); Mean Corpuscular Hemoglobin 31.5 pg (26-34); Mean Corpuscular Volume 89.6 fl (80-100); Monocytes Absolute Auto 1.2 K/mm3 (0.1-0.6); Monocytes Percent Auto 8.4 % (2.6-8.5); Neutrophils Absolute Auto 8.2 K/mm3 (1.3-6.7); Neutrophils Percent Auto 59.3 % (45.5-73.1); Platelet Count Result 313 k/mm3 (150-375); Red Blood Count 3.17 M/mm3 (4.6-6.20); Red Cell Distribution Width 13.7 % (11.5-14.5); White Blood Count 13.9 K/mm3 (4.5-10.0)
[2022-01-09 06:18] LABS: Alanine Aminotransferase 20 U/L (6-50); Albumin Level 3.9 g/dL (3.5-5.1); Alkaline Phosphatase 75 U/L (38-126); Anion Gap 11 mmol/L (8-16); Aspartate Amino Transferase 28 U/L (17-59); Bilirubin,Total 0.8 mg/dL (0.2-1.3); Blood Urea Nitrogen 6 mg/dL (9-20); Calcium 8.2 mg/dL (8.4-10.2); Carbon Dioxide 24 mmol/L (22-30); Chloride 107 mmol/L (98-107); Estimated CRCL calculation 149 ml/min; Estimated Glomerular Filt Rate > 60; Glucose 107 mg/dL (65-110); Lactate Dehydrogenase 185 U/L (120-246); Potassium 3.5 mmol/L (3.4-5.0); Sodium 142 mmol/L (137-145)
[2022-01-09] MEDS: HYDROXYUREA (*CHEMO) 500 MG CAPSULE PO (08:40)
[2022-01-09] MEDS: FOLIC ACID 1 MG TABLET PO (08:40)
[2022-01-09] MEDS: ENOXAPARIN 120 MG/0.8 ML SYRINGE 105 MG SUB-Q (08:40)
[2022-01-09] MEDS: methADONE HCL (*CRX) 10 MG TABLET PO ×3 (08:42→21:48)
[2022-01-09] MEDS: diphenhydrAMINE HCl CAP 25 MG CAPSULE PO (08:42)
--- NOTE | 2022-01-09 16:11 | PM.IMPN ---
Progress Note: A&P Assessment and Plan (1) Sickle cell pain crisis: Code(s): D57.00 - Hb-SS disease with crisis, unspecified Status: Acute (2) Sickle cell disease, type SC: Qualifiers: Sickle-cell associated disorders: without crisis Qualified Code(s): D57.20 - Sickle-cell/Hb-C disease without crisis Code(s): D57.20 - Sickle-cell/Hb-C disease without crisis Status: Chronic (3) Chronic anticoagulation: Code(s): Z79.01 - half-way (current) use of anticoagulants Status: Chronic (4) Chronic narcotic use: Code(s): F11.90 - Opioid use, unspecified, uncomplicated Status: Chronic (5) Subtherapeutic international normalized ratio (INR): Code(s): R79.1 - Abnormal coagulation profile Status: Acute Plan # acute on chronic vaso-occlusive crisis due to sickle cell disease: IV pain medication as ordered. Ibuprofen p.r.n.. IV hydration continue continue hydroxyurea and folic acid. Signs of infection indication acute chest. HGB is stable. Reticulocyte count was 0.16 and LDH was 205. 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 # leukocytosis 18,000 on admission. No signs of infection. Improved down to 13,000 without antibiotics. check urinalysis for check chest x-ray # mild chronic anemia # DVT prophylaxis on warfarin and bridging Lovenox Subjective Date/time seen: 01/09/22 16:11 Interval history: This is a pleasant 36-year-old male with history of hemoglobin SC disease, chronic pain syndrome related to sickle cell disease, and DVT and PE on anticoagulation who presented to the emergency department via private vehicle from home for evaluation of acute on chronic pain. He has daily pain related to his sickle cell disease for which he takes methadone 10 mg TID. Over the last couple of days he has had increasing pain from his baseline, mainly musculoskeletal pain in the legs, ribs, and back. He has Percocet 10-325 mg which he has been taking every 4 to 6 hours but unfortunately that is not providing him with longstanding relief. He was hydrated and given dilaudid 3 mg in the emergency department though unfortunately he continues to have pain and he is being admitted in this setting. He is not having any chest pain, pleuritic pain, or shortness of breath.? He also denies fever, chills, sweats, cold and flu symptoms, nausea, vomiting, and diarrhea. 01/09/2022 feeling better. Pain is rated at 6-7. No fever chills no chest pain cough or shortness of breath. Review of Systems Review of Systems: All systems reviewed & are unremarkable except as noted in HPI and below Exam Narrative: General: Nontoxic-appearing male sitting up in bed in no distress. HEENT: PERRL, EOMI. Sclera anicteric. Oral mucosa is moist. Neck: Supple. No lymphadenopathy. Respiratory: Lungs are clear to auscultation bilaterally. Not in acute respiratory distress Cardiovascular: Regular rate and rhythm with S1-S2. Gastrointestinal: Abdomen is soft, nontender, and nondistended with positive bowel sounds. Skin: Warm and dry. No rash or lesions on limited exam. Extremities: No cyanosis, clubbing, or edema. Radial and pedal pulses intact. Neurological: Alert. Cranial nerves 2-12 are grossly intact. No gross focal deficits to casual conversation. Psychiatric: Appropriate mood and affect. Objective Data Vital Signs Vital Signs: Vital Signs - 24 hr 01/08/22 20:40 01/08/22 23:07 01/09/22 06:00 Temperature 97.5 F L 97 F L Pulse Rate 85 88 Respiratory Rate 18 16 Blood Pressure 117/61 108/60 Pulse Oximetry 100 95 Oxygen Delivery Room Air 01/09/22 09:08 01/09/22 08:56 01/09/22 08:00 Temperature Pulse Rate 78 80 80 Respiratory Rate 10 L 10 L Blood Pressure 103/66 108/57 L Pulse Oximetry 98 98 Oxygen Delivery Room Air 01/09/22 14:00 01/09/22 15:04 Temperature 97.9 F
[2022-01-09 17:13] LABS: INR 1.9; Prothrombin Time 20.8 Seconds (11.1-14.7)
[2022-01-09 20:58] LABS: Appearance Urine Clear (Clear); Bilirubin Urine Negative (Negative); Blood Urine Negative (Negative); Color Urine Yellow (Yellow); Glucose Urine UA Negative (Negative); Ketones Urine Negative (Negative); Leukocyte Esterase Ur Negative LEU/UL (NEGATIVE); Nitrate Urine Negative (Negative); Protein Urine Negative (Negative)
[2022-01-09 21:17] LABS: Add Urine Microscopic? NO
[2022-01-10] MEDS: HYDROmorphone HCL INJ (*CRX) 1 MG/ML SYR 3 MG IV PUSH ×8 (00:49→22:48)
[2022-01-10] MEDS: SODIUM CHLORIDE 0.9% IV 1,000 ML 150 ML IV CONT ×3 (03:57→19:41)
[2022-01-10 05:57] VITALS: BP 111/61; PULSE 91; RESP 16; TEMP 37.1; O2SAT 94
[2022-01-10 06:05] LABS: INR 2.1; Prothrombin Time 22.5 Seconds (11.1-14.7)
[2022-01-10 06:15] LABS: Basophils Absolute Auto 0.1 K/mm3 (0.0-0.1); Basophils Percent Auto 0.8 % (0.2-1.2); Eosinophils Absolute Auto 0.3 K/mm3 (0-0.3); Eosinophils Percent Auto 3.5 % (0-4.4); Hematocrit 27.7 % (42.0-52.0); Immature Granulocyte Absolute 0.03 K/mm3 (0.00-0.031); Immature Granulocyte Percent A 0.3 % (0-0.5); Lymphocytes Absolute Auto 3.78 K/mm3 (0.9-3.2); Lymphocytes Percent Auto 38.9 % (18.3-44.2); Mean Corpuscular HGB Conc 36.1 g/dl (32-36); Mean Corpuscular Hemoglobin 32.3 pg (26-34); Mean Corpuscular Volume 89.4 fl (80-100); Mean Platelet Volume 10.6 fl (7.4-10.4); Monocytes Absolute Auto 0.8 K/mm3 (0.1-0.6); Monocytes Percent Auto 8.4 % (2.6-8.5); Neutrophils Absolute Auto 4.7 K/mm3 (1.3-6.7); Neutrophils Percent Auto 48.1 % (45.5-73.1); Platelet Count Result 321 k/mm3 (150-375); Red Cell Distribution Width 13.7 % (11.5-14.5); White Blood Count 9.7 K/mm3 (4.5-10.0)
[2022-01-10 06:18] LABS: Alanine Aminotransferase 18 U/L (6-50); Albumin Level 3.7 g/dL (3.5-5.1); Alkaline Phosphatase 79 U/L (38-126); Anion Gap 9 mmol/L (8-16); Aspartate Amino Transferase 29 U/L (17-59); Bilirubin,Total 0.8 mg/dL (0.2-1.3); Blood Urea Nitrogen 6 mg/dL (9-20); Calcium 7.9 mg/dL (8.4-10.2); Carbon Dioxide 23 mmol/L (22-30); Chloride 108 mmol/L (98-107); Estimated CRCL calculation 172 ml/min; Estimated Glomerular Filt Rate > 60; Glucose 133 mg/dL (65-110); Magnesium 2.2 mg/dL (1.6-2.3); Potassium 4.1 mmol/L (3.4-5.0); Sodium 140 mmol/L (137-145)
[2022-01-10] MEDS: HYDROXYUREA (*CHEMO) 500 MG CAPSULE PO (09:27)
[2022-01-10] MEDS: FOLIC ACID 1 MG TABLET PO (09:27)
[2022-01-10] MEDS: methADONE HCL (*CRX) 10 MG TABLET PO ×3 (09:35→20:24)
[2022-01-10 13:59] VITALS: BP 121/76; PULSE 91; RESP 20; TEMP 36.3; O2SAT 96
[2022-01-10] MEDS: WARFARIN (*PBKC) 4 MG TABLET 12 MG PO (16:33)
--- NOTE | 2022-01-10 16:37 | PM.IMPN ---
Progress Note: A&P Assessment and Plan (1) Sickle cell pain crisis: Code(s): D57.00 - Hb-SS disease with crisis, unspecified Status: Acute (2) Sickle cell disease, type SC: Qualifiers: Sickle-cell associated disorders: without crisis Qualified Code(s): D57.20 - Sickle-cell/Hb-C disease without crisis Code(s): D57.20 - Sickle-cell/Hb-C disease without crisis Status: Chronic (3) Chronic anticoagulation: Code(s): Z79.01 - correction (current) use of anticoagulants Status: Chronic (4) Chronic narcotic use: Code(s): F11.90 - Opioid use, unspecified, uncomplicated Status: Chronic (5) Subtherapeutic international normalized ratio (INR): Code(s): R79.1 - Abnormal coagulation profile Status: Acute Plan # acute on chronic vaso-occlusive crisis due to sickle cell disease: IV pain medication as ordered. Ibuprofen p.r.n.. IV hydration continue continue hydroxyurea and folic acid. Signs of infection indication acute chest. HGB is stable. Reticulocyte count was 0.16 and LDH was 205. 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 # leukocytosis 18,000 on admission. tpday is 9,700 No signs of infection. Improved down to 13,000 without antibiotics. check urinalysis for check chest x-ray # mild chronic anemia # DVT prophylaxis on warfarin and bridging Lovenox Subjective Date/time seen: 01/10/22 16:37 Interval history: This is a pleasant 36-year-old male with history of hemoglobin SC disease, chronic pain syndrome related to sickle cell disease, and DVT and PE on anticoagulation who presented to the emergency department via private vehicle from home for evaluation of acute on chronic pain. He has daily pain related to his sickle cell disease for which he takes methadone 10 mg TID. Over the last couple of days he has had increasing pain from his baseline, mainly musculoskeletal pain in the legs, ribs, and back. He has Percocet 10-325 mg which he has been taking every 4 to 6 hours but unfortunately that is not providing him with longstanding relief. He was hydrated and given dilaudid 3 mg in the emergency department though unfortunately he continues to have pain and he is being admitted in this setting. He is not having any chest pain, pleuritic pain, or shortness of breath.? He also denies fever, chills, sweats, cold and flu symptoms, nausea, vomiting, and diarrhea. 01/09/2022 feeling better. Pain is rated at 6-7. No fever chills no chest pain cough or shortness of breath. 01/10/2022 today patient states pain is persist 8-9, his hemoglobin is stable, his INR today is 2.1 patient is clinically stable will discharge the patient tomorrow. Review of Systems Review of Systems: All systems reviewed & are unremarkable except as noted in HPI and below Exam Narrative: Patient is comfortable, NAD HEENT: eyes are clear and none icteric LUNGS: normal respiratory effort ABD: distended Lower extremities: no edema SKIN: nonjaundiced Neuro: grossly intact. Objective Data Vital Signs Vital Signs: Vital Signs - 24 hr 01/09/22 20:00 01/09/22 22:00 01/10/22 05:57 Temperature 97.6 F 98.7 F Pulse Rate 102 H 91 Respiratory Rate 18 16 Blood Pressure 120/72 111/61 Pulse Oximetry 96 94 Oxygen Delivery Room Air 01/10/22 13:59 01/10/22 08:00 Temperature 97.4 F L Pulse Rate 91 Respiratory Rate 20 Blood Pressure 121/76 Pulse Oximetry 96 Oxygen Delivery Room Air Intake/Output Intake/Output: Intake & Output 01/07/22 01/08/22 01/09/22 01/10/22 23:59 23:59 23:59 23:59 Intake Total 1999 0174 4879 Output Total 0831 2737 Balance 1999 1417 1200 Meds/Results Medications: Active Medications Generic Name Dose Route Start Last Admin Trade Name Freq PRN Reason Stop Dose Admin Diphenhydramine HCl 25 mg 01/08/22 16:23 01/09/22 08:42 D
[2022-01-10 18:20] LABS: Basophils Absolute Auto 0.1 K/mm3 (0.0-0.1); Basophils Percent Auto 0.9 % (0.2-1.2); Eosinophils Absolute Auto 0.3 K/mm3 (0-0.3); Eosinophils Percent Auto 3.7 % (0-4.4); Hematocrit 29.3 % (42.0-52.0); Hemoglobin 10.2 g/dL (14.0-18.0); Immature Granulocyte Absolute 0.04 K/mm3 (0.00-0.031); Immature Granulocyte Percent A 0.5 % (0-0.5); Lymphocytes Percent Auto 36.5 % (18.3-44.2); Mean Corpuscular HGB Conc 34.8 g/dl (32-36); Mean Corpuscular Hemoglobin 31.9 pg (26-34); Mean Corpuscular Volume 91.6 fl (80-100); Mean Platelet Volume 10.1 fl (7.4-10.4); Monocytes Absolute Auto 0.8 K/mm3 (0.1-0.6); Neutrophils Absolute Auto 4.3 K/mm3 (1.3-6.7); Neutrophils Percent Auto 49.4 % (45.5-73.1); Nucleated Red Blood Cells Perc 0.2 % (0.0-0.2); Platelet Count Result 317 k/mm3 (150-375); Red Cell Distribution Width 14.1 % (11.5-14.5); White Blood Count 8.8 K/mm3 (4.5-10.0)
--- NOTE | 2022-01-10 18:57 | PDONCCN ---
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 He was admitted to hospital on November 12, 2021 with last sickle cell crisis flare-up. He came back into the hospital with generalized pain especially in the leg and lower back pain. He has been taking hydroxyurea 500 mg daily along with folic acid. Chest x-ray showed no acute cardiopulmonary process. Labs showed hemoglobin of 11.1 with LDH 185. He was started on IV hydration as well as Dilaudid and methadone. His pain is under much better control. Denies any fevers and chills. No other new complaints. Review of Systems - Review of Systems All systems reviewed & are unremarkable except as noted in HPI and [facility] Medical History: Medical History (Last Reviewed 01/08/22 @ 16:11 by Kimberlee Santamaria PA-C) Acute chest syndrome Chronic anticoagulation Due to history of DVT and pulmonary embolism. Chronic narcotic use On methadone with oxycodone for chronic pain related to sickle cell disease. 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 Deep venous thrombosis Noncompliance History of noncompliance with anticoagulation and hydroxyurea. Pulmonary embolism Sickle cell disease, type SC Surgical History: Surgical History (Last Reviewed 01/08/22 @ 20:41 by Kimberlee Santamaria PA-C) History of hand surgery Tendon surgery on right 5th finger. Family History: Family History (Last Reviewed 01/08/22 @ 23:02 by Aide Hill RN) Grandparent Diabetes mellitus Acute myocardial infarction Sibling Asthma Sibling Asthma Mother Hypertension Sickle cell trait Son Sickle cell trait Daughter Sickle cell trait Grandparent No problems noted. Other Diabetes mellitus Father Sickle cell trait - Social History Social History: Social History (Last Reviewed 01/08/22 @ 20:41 by Kimberlee Santamaria PA-C) Alcohol Use: Alcohol intake: never Substance Use: Substance use: former Substance use type: marijuana Others: Spiritual care concerns: No Agree to blood products: Yes Smoking Status: Smoking status: Never smoker Exam - Vital Signs Vital Signs - 24 hr 01/09/22 20:00 01/09/22 22:00 01/10/22 05:57 Temperature 36.4 C 37.1 C Pulse Rate 102 H 91 Respiratory Rate 18 16 Blood Pressure 120/72 111/61 Pulse Oximetry 96 94 Oxygen Delivery Room Air 01/10/22 13:59 01/10/22 08:00 Temperature 36.3 C L Pulse Rate 91 Respiratory Rate 20 Blood Pressure 121/76 Pulse Oximetry 96 Oxygen Delivery Room Air - Exam HEENT: EOMI, PERRLA Neck: supple. No: JVD Lungs: clear to auscultation, normal air movement Heart: no murmurs, gallops, or rubs, regular rhythm Abdomen: abdomen soft, non-distended, normal bowel sounds Extremities: normal pulses Integumentary: no abnormalities Neurological: normal speech Psychological: mental status NL, mood NL - Lab Results Laboratory Last Values WBC 8.8 K/mm3 (4.5-10.0) 01/10/22 18:15 RBC 3.20 M/mm3 (4.6-6.20) L 01/10/22 18:15 Hgb 10.2 g/dL (14.0-18.0) L 01/10/22 18:15 Hct 29.3 % (42.0-52.0) L 01/10/22 18:15 MCV 91.6 fl (80-100) 01/10/22 18:15 MCH 31.9 pg (26-34) 01/10/22 18:15 MCHC 34.8 g/dl (32-36) 01/10/22 18:15 RDW 14.1 % (11.5-14.5) 01/10/22 18:15 Plt Count 317 k/mm3 (150-375) 01/10/22 18:15 MPV 10.1 fl (7.4-10.4) 01/10/22 18:15 Immature Gran % (Auto) 0.5 % (0-0.5) 01/10/22 18:15 Neut % (Auto) 49.4 % (45.5-73.1) 01/10/22 18:15 Lymph % (Auto) 36.5 % (18.3-44.2) 01/10/22 18:15 [place] % (Auto) 9.0 % (2.6-8.5) H 01/10/22 18:15 Eos % (Auto) 3.7 % (0-4.4)
[2022-01-10 21:00] VITALS: BP 116/75; PULSE 82; RESP 16; TEMP 36.7; O2SAT 96
[2022-01-11] MEDS: HYDROmorphone HCL INJ (*CRX) 1 MG/ML SYR 3 MG IV PUSH ×6 (02:05→17:58)
[2022-01-11] MEDS: SODIUM CHLORIDE 0.9% IV 1,000 ML 150 ML IV CONT ×2 (02:05→08:14)
[2022-01-11 06:00] VITALS: BP 116/73; PULSE 77; RESP 16; TEMP 36.7; O2SAT 94
[2022-01-11 06:06] LABS: Immature Reticulocyte Fraction 31.4 % (3.0-15.9); Reticulocyte Hemoglobin Conten 30.5 pg (28.2-35.7); Reticulocytes Absolute 0.17 B/L (32.2-175.7)
[2022-01-11 06:16] LABS: INR 2.6; Prothrombin Time 27.1 Seconds (11.1-14.7)
[2022-01-11 06:28] LABS: Alanine Aminotransferase 18 U/L (6-50); Albumin Level 4.1 g/dL (3.5-5.1); Alkaline Phosphatase 75 U/L (38-126); Anion Gap 11 mmol/L (8-16); Aspartate Amino Transferase 31 U/L (17-59); Bilirubin,Total 0.8 mg/dL (0.2-1.3); Blood Urea Nitrogen 5 mg/dL (9-20); Calcium 8.1 mg/dL (8.4-10.2); Carbon Dioxide 24 mmol/L (22-30); Chloride 107 mmol/L (98-107); Estimated CRCL calculation 149 ml/min; Estimated Glomerular Filt Rate > 60; Glucose 106 mg/dL (65-110); Potassium 3.9 mmol/L (3.4-5.0); Sodium 142 mmol/L (137-145)
[2022-01-11] MEDS: methADONE HCL (*CRX) 10 MG TABLET PO ×2 (08:12→17:04)
[2022-01-11] MEDS: FOLIC ACID 1 MG TABLET PO (08:14)
[2022-01-11] MEDS: HYDROXYUREA (*CHEMO) 500 MG CAPSULE PO (08:14)
[2022-01-11] MEDS: diphenhydrAMINE HCl CAP 25 MG CAPSULE PO (08:23)
[2022-01-11 08:52] LABS: Hematocrit 28.6 % (42.0-52.0); Hemoglobin 10.2 g/dL (14.0-18.0); Mean Corpuscular HGB Conc 35.7 g/dl (32-36); Mean Corpuscular Volume 89.7 fl (80-100); Mean Platelet Volume 10.8 fl (7.4-10.4); Platelet Count Result 346 k/mm3 (150-375); Red Blood Count 3.19 M/mm3 (4.6-6.20); Red Cell Distribution Width 14.3 % (11.5-14.5); White Blood Count 9.1 K/mm3 (4.5-10.0)
--- NOTE | 2022-01-11 10:30 | PM.DS ---
DS: Admitting Diagnosis Discharge Date 01/11/2022 Admitting Diagnosis Acute on chronic pain. DS: Discharge Diagnosis Discharge Diagnosis (1) Sickle cell pain crisis: Code(s): D57.00 - Hb-SS disease with crisis, unspecified Status: Acute (2) Sickle cell disease, type SC: Qualifiers: Sickle-cell associated disorders: without crisis Qualified Code(s): D57.20 - Sickle-cell/Hb-C disease without crisis Code(s): D57.20 - Sickle-cell/Hb-C disease without crisis Status: Chronic (3) Chronic anticoagulation: Code(s): Z79.01 - [facility] (current) use of anticoagulants Status: Chronic (4) Chronic narcotic use: Code(s): F11.90 - Opioid use, unspecified, uncomplicated Status: Chronic (5) Subtherapeutic international normalized ratio (INR): Code(s): R79.1 - Abnormal coagulation profile Status: Acute Plan # acute on chronic vaso-occlusive crisis due to sickle cell disease: IV pain medication as ordered. Ibuprofen p.r.n.. IV hydration continue continue hydroxyurea and folic acid. Signs of infection indication acute chest. HGB is stable. Reticulocyte count was 0.16 and LDH was 205. 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 # leukocytosis 18,000 on admission. tpday is 9,700 No signs of infection. Improved down to 13,000 without antibiotics. check urinalysis for check chest x-ray # mild chronic anemia # DVT prophylaxis on warfarin and bridging Lovenox DS: Summary Hospital Course Reason for hospitalization: Chief Complaint: Acute on chronic pain. Narrative: This is a pleasant 36-year-old male with history of hemoglobin SC disease, chronic pain syndrome related to sickle cell disease, and DVT and PE on anticoagulation who presented to the emergency department via private vehicle from home for evaluation of acute on chronic pain. He has daily pain related to his sickle cell disease for which he takes methadone 10 mg TID. Over the last couple of days he has had increasing pain from his baseline, mainly musculoskeletal pain in the legs, ribs, and back. He has Percocet 10-325 mg which he has been taking every 4 to 6 hours but unfortunately that is not providing him with longstanding relief. He was hydrated and given dilaudid 3 mg in the emergency department though unfortunately he continues to have pain and he is being admitted in this setting. He is not having any chest pain, pleuritic pain, or shortness of breath.? He also denies fever, chills, sweats, cold and flu symptoms, nausea, vomiting, and diarrhea. Hospital Course: ?today patient states pain is persist is better, his hemoglobin is stable, his INR today is 2.6? 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 Time Spent with Patient Time attestation: Total time spent providing and/or coordinating discharge services: Exam Narrative: Patient is comfortable, NAD HEENT: eyes are clear and none icteric LUNGS: normal respiratory effort ABD: distended Lower extremities: no edema SKIN: nonjaundiced Neuro: grossly intact. DS: Data Data Completed and Pending Labs on day of discharge: Labs from last 24 hours 01/11/22 01/11/22 01/11/22 05:49 05:49 05:49 WBC RBC Hgb Hct MCV MCH MCHC RDW Plt Count MPV Immature Gran % (Auto) Neut % (Auto) Lymph % (Auto) [place]ett[place] % (Auto) Eos % (Auto) Baso % (Auto) Lymph # (Auto) [place]ett[place] # (Auto) Eos # (Auto) Baso # (Auto) Abs Immat Gran (auto) Absolute Neuts (auto) Absolute Nucleated RBC Nucleated RBC % Absolute Retic 0.17 L Percent Retic 5.40 H Immature Retic Fraction 31.4 H Retic Hgb Content 30.5 PT 27.1 H D INR 2.6 Sodium 142 Potassium 3.9 Chloride 107 Carbon Dioxide 24
[2022-01-11 13:48] VITALS: BP 114/72; PULSE 90; RESP 16; TEMP 36.4; O2SAT 97
--- NOTE | 2022-01-11 14:02 | PC.NURSE ---
On 01/11/22, the student, Andrew [facility], provided care and completed [facility] documentation on this patient. I have reviewed the student's documentation and agree with the findings.
[2022-01-11] MEDS: oxyCODONE/ACETAMINOPHEN (*CRX) 10-325 MG TABLET 1 TAB PO (14:17)
[2022-01-11] MEDS: WARFARIN (*PBKC) 4 MG TABLET 12 MG PO (17:04)
--- NOTE | 2022-01-11 17:28 | PC.NURSE ---
patient pain discussed with Dr. Damian. patient asking for Dilaudid shot, he is ok to give Dilaudid shot before leaving, when patient has ride. patient has chronic pain so it will never ends. he is good to give shot at the time of departure with family. all information shared with the patient, verbalized understanding and trying to get a hold someone for ride.
== END 2022-01-11 18:10 | disposition home or self-care (01) | DRG 662 ==
LOC: ANHED 15:55 → ANH3MEDSUR 17:57
PROVIDERS: Internal Medicine; Physician Assistant; Admitting Provider Chiropractor; Emergency Provider Emergency Medicine; PCP Internal Medicine Hematology & Oncology; Visit Provider Family Medicine
DX: D57.219 Sickle-cell/Hb-C disease with crisis, unspecified (principal); D72.829 Elevated white blood cell count, unspecified; G89.29 Other chronic pain; F11.90 Opioid use, unspecified, uncomplicated; R79.1 Abnormal coagulation profile; D64.9 Anemia, unspecified; Z20.822 Contact with and (suspected) exposure to COVID-19; Z79.01 Long term (current) use of anticoagulants; Z86.711 Personal history of pulmonary embolism; Z86.718 Personal history of other venous thrombosis and embolism
CPT/HCPCS: 36415; 71045; 80053; 81003; 83615; 83735; 85025; 85027; 85046; 85055; 85610; 85730; 96361; 96372; 96374; 96375; 96376; 99285; A9270; C9803; G0378; G0379; J1170; J1650; J2405; J7030; U0003; U0005

== ENCOUNTER 2022-05-08 11:49 | Inpatient (IN) | payer OTHER, SELFPAY ==
[2022-05-08] VITALS (9 sets, daily range): BP systolic 98–134; BP diastolic 54–81; PULSE 79–110; RESP 13–18; TEMP 35.7–36.8; O2SAT 95–99
--- NOTE | ~2022-05-08 | XR_ITS ---
EXAMINATION: XR chest 2V DATE: 05/08/2022 13:03 INDICATION: Sickle cell crisis. Chest pain. TECHNIQUE: Frontal and lateral views of the chest were obtained. COMPARISON: Chest single view 01/09/2022, chest CT 03/20/2019 FINDINGS: There are chronic airspace opacities with volume loss at the lung bases. No pleural effusio n or pneumothorax. The heart size is normal. In the spine, there is chronic height loss of many of th e endplates, consistent with osteonecrosis. IMPRESSION: 1. Stable chronic airspace opacities with volume loss at the lung bases, consistent with sickle cell chronic lung disease. Reviewed, dictated and finalized at location A. SOLUTION MANAGER CONSULTANT IMPRESSION: 1. Stable chronic airspace opacities with volume loss at the lung bases, consis tent with sickle cell chronic lung disease.
--- NOTE | ~2022-05-08 | CT_ITS ---
EXAMINATION: CT diagnostic chest wo con DATE: 05/14/2022 08:24 INDICATION: Sickle cell crisis, pneumonia TECHNIQUE: Computed tomography (CT) of the chest was performed without intravenous contrast. The dose -length product (DLP) was 284.94 mGy-cm. Automated exposure control and iterative reconstruction tech [employer] were employed. COMPARISON: 03/20/2019 FINDINGS: There are areas of chronic scarring of the lower lobes, lingula, and right middle lobe. Sub tle groundglass opacities are present in the right upper lobe. No pleural effusion or pneumothorax. N o pathologically enlarged thoracic lymph nodes are identified. The heart size is normal. There is mil d bilateral gynecomastia. Again noted are widespread sclerosis of the visualized osseous structures a nd concavity of multiple vertebral body endplates, consistent with osteonecrosis. The spleen is small in size and calcified, consistent with autoinfarction. Stones are present in the nondistended gallbl adder. IMPRESSION: 1. Subtle groundglass opacities in the right upper lobe which may be infectious or inflammatory. Othe rwise, chronic findings of the lungs, osseous structures, and spleen, consistent with history of sick le cell. Reviewed, dictated and finalized at location B. ERTY MANAGEMENT SUPERVISOR IMPRESSION: 1. Subtle groundglass opacities in the right upper lobe which may be infectious or inflammatory. Otherwise, chronic findings of the lungs, osseous structures, and spleen, consistent with history of sickle cell.
--- NOTE | 2022-05-08 12:31 | ECG_ITS ---
Measurements Intervals [place] Rate: 111 P: 43 GA: 156 QRS: 29 QRSD: 92 T: 16 QT: 318 QTc: 434 Interpretive Statements SINUS TACHYCARDIA ST-T WAVE ABNORMALITY IN ANTERIOR LEADS- CONSIDER ISCHEMIA ABNORMAL ECG COMPARED TO ECG 11/12/2021 17:58:11 [address] NOW PRESENT ST-T WAVE ABNORMALITY NOW PRESENT Electronically Signed On 05-08-2022 12:57:51 BELL CAPTAIN by Ricky Modi D.O.
--- NOTE | 2022-05-08 12:57 | ED.GENADULT ---
HPI - General Adult General Chief complaint: Extremity Problem,Nontraumatic <ZAINAB Samaniego Last Filed: 05/08/22 18:31> Stated complaint: sickle cell pain <ZAINAB Samaniego Last Filed: 05/08/22 18:31> Time Seen by Provider: 05/08/22 12:31 <ZAINAB Samaniego Last Filed: 05/08/22 18:31> Source: patient and old records reviewed <ZAINAB Samaniego Last Filed: 05/08/22 18:31> Mode of arrival: ambulatory <ZAINAB Samaniego Filed: 05/08/22 18:31> Limitations: no limitations <ZAINAB Samaniego Last Filed: 05/08/22 18:31> History of Present Illness HPI narrative: Patient is a 37 y/o male who presents to the ED with c/o sickle cell pain. Patient has history of sickle cell anemia. He reports having pain in his ribs, low back, legs, chest over the last 2 days. Pain feels similar to previous crises. He has been taking methadone for and oxycodone at home without relief. Patient is well-known to our facility and frequently has sickle cell crisises. He states he missed his hydroxyurea and warfarin yesterday, but took both today. Denies difficulty breathing. Denies nausea, vomiting, abdominal pain. Denies recent fever. Does report having a cough today. <ZAINAB Samaniego Last Filed: 05/08/22 18:31> Related Data Home medications: Home Medications Medication Instructions Recorded Confirmed folic acid 1 mg tablet 1 mg PO DAILY 02/16/19 05/08/22 methadone 10 mg tablet 10 mg PO TID 08/22/20 05/08/22 oxycodone-acetaminophen 10 mg-325 1 tablet PO BID PRN Pain, Moderate 08/22/20 05/08/22 mg tablet ibuprofen 800 mg tablet 800 mg PO Q6H PRN Pain 11/12/21 05/08/22 warfarin 7.5 mg tablet 12 mg PO DAILY 12/11/21 05/08/22 <Leti Beaulieu PA-C - Last Filed: 05/08/22 18:31> Allergies/adverse reactions: Allergies Allergy/AdvReac Type Severity Reaction Status Date / Time Fish Containing Products Allergy Mild Itching Verified 05/08/22 11:50 <Leti Beaulieu PA-C - Last Filed: 05/08/22 18:31> Review of Systems Review of Systems: CONSTITUTIONAL: Denies fever, chills, or sweats. ENT: Denies rhinorrhea, congestion, sore throat. CARDIOVASCULAR: See HPI. RESPIRATORY: Reports cough. Denies dyspnea. GASTROINTESTINAL: Denies abdominal pain, nausea, vomiting, or diarrhea. MUSCULOSKELETAL: See HPI. <Leti Beaulieu PA-C - Last Filed: 05/08/22 18:31> All systems reviewed & are unremarkable except as noted in HPI and below <Leti Beaulieu PA-C - Last Filed: 05/08/22 18:31> PMF Past Medical History Medical History: Medical History Acute chest syndrome Chronic anticoagulation Due to history of DVT and pulmonary embolism. Chronic narcotic use On methadone with oxycodone for chronic pain related to sickle cell disease. 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 Deep venous thrombosis Noncompliance History of noncompliance with anticoagulation and hydroxyurea. Pulmonary embolism Sickle cell disease, type SC <Leti Beaulieu PA-C - Last Filed: 05/08/22 18:31> Surgical History Surgical History: Surgical History History of hand surgery Tendon surgery on right 5th finger. <Leti Beaulieu PA-C - Last Filed: 05/08/22 18:31> Family History Family History: Family History Grandparent Diabetes mellitus Acute myocardial infarction Sibling Asthma Sibling Asthma Mother Hypertension Sickle cell trait Son Sickle cell trait Daughter Sickle cell trait Grandparent No problems noted. Other Diabetes mellitus Father Sickle cell trait <ZAINAB Samaniego Last Filed: 05/08/22 18:31> Social History Social History: Social History (Revi
[2022-05-08 13:37] LABS: Basophils Absolute Auto 0.1 K/mm3 (0.0-0.1); Basophils Percent Auto 0.5 % (0.2-1.2); Eosinophils Percent Auto 0.1 % (0-4.4); Hemoglobin 10.3 g/dL (14.0-18.0); Immature Granulocyte Absolute 0.04 K/mm3 (0.00-0.031); Immature Granulocyte Percent A 0.4 % (0-0.5); Immature Platelet Fraction Pct 5.1 % (0.9-11.2); Immature Reticulocyte Fraction 19.4 % (3.0-15.9); Lymphocytes Absolute Auto 2.26 K/mm3 (0.9-3.2); Lymphocytes Percent Auto 20.4 % (18.3-44.2); Mean Corpuscular HGB Conc 35.5 g/dl (32-36); Mean Corpuscular Hemoglobin 30.8 pg (26-34); Mean Corpuscular Volume 86.8 fl (80-100); Mean Platelet Volume 10.3 fl (7.4-10.4); Monocytes Absolute Auto 1.9 K/mm3 (0.1-0.6); Monocytes Percent Auto 17.1 % (2.6-8.5); Neutrophils Absolute Auto 6.8 K/mm3 (1.3-6.7); Neutrophils Percent Auto 61.5 % (45.5-73.1); Nucleated Red Blood Cells Perc 0.3 % (0.0-0.2); Platelet Count Result 286 k/mm3 (150-375); Red Blood Count 3.34 M/mm3 (4.6-6.20); Red Cell Distribution Width 14.3 % (11.5-14.5); Reticulocyte Percent 4.58 % (0.7-4.3); Reticulocytes Absolute 0.15 B/L (32.2-175.7); White Blood Count 11.1 K/mm3 (4.5-10.0)
[2022-05-08 13:45] LABS: INR 1.2; Partial Thromboplastin Time 30.3 SECONDS (22.3-36.8); Prothrombin Time 14.6 Seconds (11.1-14.7)
[2022-05-08 13:47] LABS: Alanine Aminotransferase 26 U/L (6-50); Albumin Level 4.4 g/dL (3.5-5.1); Alkaline Phosphatase 75 U/L (38-126); Anion Gap 9 mmol/L (8-16); Aspartate Amino Transferase 39 U/L (17-59); Bilirubin,Total 1.2 mg/dL (0.2-1.3); Blood Urea Nitrogen 8 mg/dL (9-20); Calcium 8.4 mg/dL (8.4-10.2); Carbon Dioxide 25 mmol/L (22-30); Chloride 108 mmol/L (98-107); Estimated CRCL calculation 125 ml/min; Estimated Glomerular Filt Rate > 60; Glucose 106 mg/dL (65-110); Lactate Dehydrogenase 256 U/L (120-246); Potassium 3.8 mmol/L (3.4-5.0); Sodium 142 mmol/L (137-145)
[2022-05-08 13:58] LABS: Troponin I < 0.012 ng/mL (0.000-0.034)
[2022-05-08 14:07] LABS: Platelet Estimate Adequate (Adequate); Poikilocytosis 1+ (NORMAL); Target Cells 2+ (NORMAL)
[2022-05-08 14:08] LABS: Anisocytosis 1+ (NORMAL); Macrocytosis 1+ (NORMAL); Schistocytes 1+ (NORMAL); Sickle Cells 1+ (NORMAL)
[2022-05-08 14:34] LABS: Influenza A QL RT-PCR Negative (Negative); Influenza B QL RT-PCR Negative (Negative); SARS-CoV-2 RNA PCR Positive
[2022-05-08] MEDS: HYDROmorphone HCL INJ (*CRX) 1 MG/ML SYR IV PUSH ×3 (15:13→17:26)
--- NOTE | 2022-05-08 18:12 | PM.IMHP ---
H&P: HPI History of Present Illness Date/Time: 05/08/22 18:12 Chief Complaint: CHEST PAIN Narrative: This is a 37-year-old male patient who has a history of sickle cell anemia. The patient has had quite a few sickle cell crisis events. However the patient has not been admitted here since December of last year. The patient stated that he has been doing fairly well. The patient stated that he was having pain across his chest his ribs lower back and legs over the last couple days. The patient stated that he had some chills and felt that maybe he had a fever as well. The patient is on methadone and oxycodone at home and had no relief of his discomfort. The patient stated that he missed his hydroxyurea and warfarin yesterday. The patient's INR is only 1.2. I explained to him that he would have to receive subcu Lovenox tonight until his INR is therapeutic. Chest x-ray was read as stable chronic airspace opacities with volume loss at the lung bases, consistent with sickle cell chronic lung disease. Dr. Marks has been consulted. The patient was given IV Tylenol and Dilaudid in the emergency room. The patient was found to be positive for COVID. Patient is currently on room air. His H&H is 10.3 and 29.0 which is his baseline. Patient is reticular count is 4.58. Immature reticular fraction is 19.4. Absolute reticular is 0.15. The patient is being admitted to observation status on the date of service of 05/08/2022. Review of Systems Review of Systems: See HPI All systems reviewed & are unremarkable except as noted in HPI and below Constitutional: Constitutional: Reports as per HPI and Reports no additional constitutional complaints Eyes: Eyes: Reports as per HPI and Reports no additional eye complaints ENT: Reports system reviewed and no additional complaints, except as documented and Reports Normal hearing present Cardiovascular: Cardiovascular: Reports no additional cardiovascular complaints Respiratory: Respiratory: Reports no additional respiratory complaints and Reports no additional respiratory complaints Gastrointestinal: Gastrointestinal: Reports as per HPI and Reports no additional gastrointestinal complaints Musculoskeletal: Musculoskeletal: Reports no additional musculoskeletal complaints Integumentary/Breasts: Skin/Breast: Reports system reviewed and no additional complaints, except as docu and Reports as per HPI Neurologic: Reports system reviewed and no additional complaints, except as documented, Reports as per HPI and Reports Normal hearing present Psychiatric: Psychiatric: Reports no additional psychiatric complaints and Reports as per HPI Endocrine: Endocrine: Reports no additional endocrine complaints Hematologic/Lymphatic: Hematologic/Lymphatic: Reports no additional hematologic/lymphatic complaints Allergic/Immunologic: Allergic/Immunologic: Reports no additional allergic/immunologic complaints [facility] Past Medical History Medical History Acute chest syndrome Chronic anticoagulation Due to history of DVT and pulmonary embolism. Chronic narcotic use On methadone with oxycodone for chronic pain related to sickle cell disease. 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 Deep venous thrombosis Noncompliance History of noncompliance with anticoagulation and hydroxyurea. Pulmonary embolism Sickle cell disease, type SC Surgical History Surgical History History of hand surgery Tendon surgery on right 5th finger. Family History Family History Grandparent Diabetes mellitus Acute myocardial infarction Sibling Asthma Sibling Asthma Mother Hypertension Sickle cell trait Son Sickle cell trait Daughter Sickle cell trait Grandparent No problems noted. Other Diabetes mellitus Father Sickle cell trait So
--- NOTE | 2022-05-08 18:45 | PDONCCN ---
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 He denies any fever but does have some feeling of cold. He denies any sore throat. Denies any dysuria and hematuria. No cough. He has been taking hydroxyurea 500 mg along with folic acid daily. On admission labs showed slightly elevated LDH with hemoglobin of 10.3. INR was 1.2. He was supposed to be taking Coumadin 12 mg daily for history of recurrent pulmonary embolism. Patient has been noncompliant on his warfarin. At home he takes methadone 10 mg b.i.d. with Tichnor for his pain control. He was last admitted to the hospital with sickle cell crisis in December of 2021. He was tested positive for COVID infection. Patient did not receive any previous COVID vaccination. Review of Systems - Review of Systems All systems reviewed & are unremarkable except as noted in HPI and [facility] Medical History: Medical History (Last Reviewed 05/08/22 @ 12:57 by Leti Beaulieu PA-C) Acute chest syndrome Chronic anticoagulation Due to history of DVT and pulmonary embolism. Chronic narcotic use On methadone with oxycodone for chronic pain related to sickle cell disease. 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 Deep venous thrombosis Noncompliance History of noncompliance with anticoagulation and hydroxyurea. Pulmonary embolism Sickle cell disease, type SC Surgical History: Surgical History (Last Reviewed 05/08/22 @ 12:57 by Leti Beaulieu PA-C) History of hand surgery Tendon surgery on right 5th finger. Family History: Family History (Last Reviewed 05/08/22 @ 18:37 by Nidia Beckham RN) Grandparent Diabetes mellitus Acute myocardial infarction Sibling Asthma Sibling Asthma Mother Hypertension Sickle cell trait Son Sickle cell trait Daughter Sickle cell trait Grandparent No problems noted. Other Diabetes mellitus Father Sickle cell trait - Social History Social History: Social History (Last Reviewed 05/08/22 @ 12:57 by Leti Beaulieu PA-C) Alcohol Use: Alcohol intake: never Substance Use: Substance use: never Substance use type: marijuana Others: Spiritual care concerns: No Agree to blood products: Yes Living Arrangements: Living arrangements: with family Oppucation/Education: Occupation/Education: other Smoking Status: Smoking status: Never smoker Social Determinants of Health: Has the Lack of Transportation Kept You From Medical Appointments or From Getting Medications?: No Within the Past 12 Months, Were You Worried Whether Your Food Would Run Out Before You Got Money to Buy More?: Never True What is Your Housing Situation Today?: I Have Housing Are You Worried That in the Next 2 Months, You May Not Have Your Own Housing to Live In?: No Do You Have Trouble Paying Your Heating Or Electricity Bill?: No Do You Have Trouble Paying For Medicines?: No Are You Currently Unemployed and Looking for Work?: No Highest Level of Education Completed: High School Diploma/GED Do You Have Trouble With Childcare or the Care of a Family Member?: No Exam - Vital Signs Vital Signs - 24 hr 05/08/22 11:55 05/08/22 12:26 05/08/22 12:30 Temperature 36.8 C Pulse Rate 110 H 108 H 100 Respiratory Rate 18 13 16 Blood Pressure 134/72 133/81 124/76 Pulse Oximetry 96 97 99 Oxygen Delivery Room Air 05/08/22 16:39 05/08/22 17:15 05/08/22 17:45 Temperature Pulse Rate Respiratory Rate Blood Pressure 108/68 98/65 L 116/79 Pulse Oximetry 96 97 95 Oxygen Delivery
[2022-05-08] MEDS: HYDROmorphone HCL INJ (*CRX) 1 MG/ML SYR 3 MG IV PUSH (21:45)
[2022-05-08] MEDS: diphenhydrAMINE HCl INJ 50 MG/ML VIAL 25 MG IV PUSH (21:47)
[2022-05-08] MEDS: SODIUM CHLORIDE 0.9% IV 1,000 ML 125 ML IV CONT (21:58)
[2022-05-08] MEDS: ENOXAPARIN 100 MG/ML SYRINGE 94 MG SUB-Q (23:02)
[2022-05-08] MEDS: methADONE HCL (*CRX) 10 MG TABLET PO (23:08)
[2022-05-09] VITALS (7 sets, daily range): BP systolic 108–126; BP diastolic 49–83; PULSE 78–96; RESP 12–18; TEMP 36.5–36.7; O2SAT 93–94
[2022-05-09] MEDS: HYDROmorphone HCL INJ (*CRX) 1 MG/ML SYR 3 MG IV PUSH ×6 (02:01→21:25)
[2022-05-09] MEDS: SODIUM CHLORIDE 0.9% IV 1,000 ML 125 ML IV CONT ×3 (06:05→22:25)
[2022-05-09 06:33] LABS: Basophils Absolute Auto 0.1 K/mm3 (0.0-0.1); Basophils Percent Auto 0.8 % (0.2-1.2); Eosinophils Percent Auto 0.2 % (0-4.4); Hematocrit 28.8 % (42.0-52.0); Hemoglobin 10.1 g/dL (14.0-18.0); Immature Granulocyte Absolute 0.05 K/mm3 (0.00-0.031); Immature Granulocyte Percent A 0.4 % (0-0.5); Lymphocytes Absolute Auto 4.68 K/mm3 (0.9-3.2); Mean Corpuscular HGB Conc 35.1 g/dl (32-36); Mean Corpuscular Hemoglobin 31.4 pg (26-34); Mean Corpuscular Volume 89.4 fl (80-100); Mean Platelet Volume 10.6 fl (7.4-10.4); Monocytes Percent Auto 17.2 % (2.6-8.5); Neutrophils Absolute Auto 4.6 K/mm3 (1.3-6.7); Neutrophils Percent Auto 40.4 % (45.5-73.1); Nucleated Red Blood Cells Perc 0.4 % (0.0-0.2); Platelet Count Result 256 k/mm3 (150-375); Red Blood Count 3.22 M/mm3 (4.6-6.20); White Blood Count 11.4 K/mm3 (4.5-10.0)
[2022-05-09 06:44] LABS: Alanine Aminotransferase 25 U/L (6-50); Albumin Level 4.4 g/dL (3.5-5.1); Alkaline Phosphatase 75 U/L (38-126); Anion Gap 6 mmol/L (8-16); Aspartate Amino Transferase 42 U/L (17-59); Bilirubin,Total 1.3 mg/dL (0.2-1.3); Blood Urea Nitrogen 9 mg/dL (9-20); Carbon Dioxide 27 mmol/L (22-30); Chloride 107 mmol/L (98-107); Estimated CRCL calculation 141 ml/min; Estimated Glomerular Filt Rate > 60; Glucose 99 mg/dL (65-110); Magnesium 2.2 mg/dL (1.6-2.3); Potassium 3.9 mmol/L (3.4-5.0); Sodium 140 mmol/L (137-145)
[2022-05-09] MEDS: ENOXAPARIN 100 MG/ML SYRINGE 94 MG SUB-Q ×2 (09:08→21:25)
[2022-05-09] MEDS: HYDROXYUREA (*CHEMO) 500 MG CAPSULE PO (09:09)
[2022-05-09] MEDS: FOLIC ACID 1 MG TABLET PO (09:09)
[2022-05-09] MEDS: WARFARIN (*PBKC) 4 MG TABLET 12 MG PO (09:09)
[2022-05-09] MEDS: methADONE HCL (*CRX) 10 MG TABLET PO ×3 (09:13→16:44)
--- NOTE | 2022-05-09 13:14 | PM.IMPN ---
Progress Note: A&P Assessment and Plan (1) Sickle cell anemia with crisis: Code(s): D57.00 - Hb-SS disease with crisis, unspecified Status: Acute Assessment and Plan: -continue with IV fluids -Dr. Marks has been consulted. -continue with hydroxyurea -continue with the methadone -continue with analgesics. -continue with Benadryl. -continue with folic acid. 05/09/2022 interval history: 37-year-old male with history of sickle cell disease and and pulmonary emboli presented emergency department with complaint rib pain seen by high density finishing operator and suspect having sickle cell crisis patient being treated with hydroxyurea and folic acid, will continue to aggressively hydrate the patient, also seen and methadone clinic for pain management, to control the pain while in the hospital will start the patient on Dilaudid as needed and monitor, with history of PE and on warfarin however upon arrival patient INR is 1.2 suggesting patient had been compliant with his medication the patient on warfarin 12 mg q.day and bridged Lovenox until INR is therapeutic, patient was diagnosed with COVID-19 in March however repeat chest if still positive, patient is not requiring any oxygen and no treatment was started, will continue to monitor, patient hemoglobin is 10.1 close to his normal level will continue to monitor, (2) Hx of pulmonary embolus: Code(s): Z86.711 - Personal history of pulmonary embolism Status: Acute Assessment and Plan: -the patient stated that he missed 1 dose of Coumadin however his INR is only 1.2. I explained to the patient that we will need to bridge him from the subcu Lovenox and continue with this until his Coumadin is therapeutic. -daily PT INR. -continue with Coumadin while where bridging him with the Lovenox. -hold Lovenox if his platelets are less than 100. However his platelets are 286. (3) COVID-19: Code(s): U07.1 - COVID-19 Status: Acute Assessment and Plan: -supportive care. -the patient will be on contact and droplet isolation. -this may be the cause of his sickle cell crisis pain. (4) Chronic pain syndrome: Code(s): G89.4 - Chronic pain syndrome Status: Chronic Assessment and Plan: -continue with home medications -the patient is on methadone as a home medication. Subjective Date/time seen: 05/09/22 13:14 Chief Complaint: CHEST PAIN HPI-Narrative: This is a 37-year-old male patient who has a history of sickle cell anemia.? The patient has had quite a few sickle cell crisis events.? However the patient has not been admitted here since December of last year.? The patient stated that he has been doing fairly well.? The patient stated that he was having pain across his chest his ribs lower back and legs over the last couple days.? The patient stated that he had some chills and felt that maybe he had a fever as well.? The patient is on methadone and oxycodone at home and had no relief of his discomfort.? The patient stated that he missed his hydroxyurea and warfarin yesterday.? The patient's INR is only 1.2.? I explained to him that he would have to receive subcu Lovenox tonight until his INR is therapeutic.? Chest x-ray was read as stable chronic airspace opacities with volume loss at the lung bases, consistent with sickle cell chronic lung disease.? Dr. Marks has been consulted.? The patient was given IV Tylenol and Dilaudid in the emergency room.? The patient was found to be positive for COVID.? Patient is currently on room air.? His H&H is 10.3 and 29.0 which is his baseline.? Patient is reticular count is 4.58.? Immature reticular fraction is 19.4.? Absolute reticular is 0.15.? The patient is being admitted to observation status on the date of service of 05/08/2022. 05/09/2022 interval history: 37-year-old male with history of sickle cell disease and and pulmonary emboli presented emergency department with complaint rib pain
[2022-05-10] MEDS: HYDROmorphone HCL INJ (*CRX) 1 MG/ML SYR 3 MG IV PUSH ×7 (00:33→21:47)
[2022-05-10] MEDS: diphenhydrAMINE HCl INJ 50 MG/ML VIAL 25 MG IV PUSH ×2 (03:40→21:47)
[2022-05-10 06:00] VITALS: BP 120/70; PULSE 74; RESP 20; TEMP 36.4; O2SAT 96
[2022-05-10] MEDS: SODIUM CHLORIDE 0.9% IV 1,000 ML 125 ML IV CONT ×3 (06:35→21:47)
[2022-05-10 06:41] LABS: Basophils Absolute Auto 0.1 K/mm3 (0.0-0.1); Basophils Percent Auto 0.6 % (0.2-1.2); Eosinophils Absolute Auto 0.1 K/mm3 (0-0.3); Eosinophils Percent Auto 0.7 % (0-4.4); Hematocrit 24.7 % (42.0-52.0); Hemoglobin 8.7 g/dL (14.0-18.0); Immature Granulocyte Absolute 0.01 K/mm3 (0.00-0.031); Immature Granulocyte Percent A 0.1 % (0-0.5); Immature Platelet Fraction Pct 5.6 % (0.9-11.2); Lymphocytes Absolute Auto 5.02 K/mm3 (0.9-3.2); Mean Corpuscular HGB Conc 35.2 g/dl (32-36); Mean Corpuscular Hemoglobin 31.1 pg (26-34); Mean Corpuscular Volume 88.2 fl (80-100); Mean Platelet Volume 10.6 fl (7.4-10.4); Monocytes Percent Auto 12.4 % (2.6-8.5); Neutrophils Absolute Auto 2.2 K/mm3 (1.3-6.7); Neutrophils Percent Auto 26.2 % (45.5-73.1); Nucleated Red Blood Cells Absolute Auto 0.1 K/mm3 (0.0-0.012); Nucleated Red Blood Cells Perc 0.7 % (0.0-0.2); Platelet Count Result 236 k/mm3 (150-375); Red Cell Distribution Width 15.5 % (11.5-14.5); White Blood Count 8.4 K/mm3 (4.5-10.0)
[2022-05-10 06:43] LABS: INR 1.9; Prothrombin Time 21.3 Seconds (11.1-14.7)
[2022-05-10 06:54] LABS: Alanine Aminotransferase 24 U/L (6-50); Albumin Level 3.8 g/dL (3.5-5.1); Alkaline Phosphatase 62 U/L (38-126); Anion Gap 2 mmol/L (8-16); Aspartate Amino Transferase 46 U/L (17-59); Bilirubin,Total 1.2 mg/dL (0.2-1.3); Blood Urea Nitrogen 7 mg/dL (9-20); Calcium 7.5 mg/dL (8.4-10.2); Carbon Dioxide 27 mmol/L (22-30); Chloride 107 mmol/L (98-107); Estimated CRCL calculation 141 ml/min; Estimated Glomerular Filt Rate > 60; Glucose 122 mg/dL (65-110); Magnesium 2.1 mg/dL (1.6-2.3); Potassium 3.8 mmol/L (3.4-5.0); Sodium 136 mmol/L (137-145)
[2022-05-10 07:49] LABS: Reticulocytes Absolute 0.12 B/L (32.2-175.7)
[2022-05-10 07:50] LABS: Immature Reticulocyte Fraction 17.6 % (3.0-15.9); Reticulocyte Hemoglobin Conten 25.3 pg (28.2-35.7); Reticulocyte Percent 4.61 % (0.7-4.3)
[2022-05-10 07:51] LABS: Platelet Estimate Adequate (Adequate); Target Cells 2+ (NORMAL)
[2022-05-10 07:52] LABS: Schistocytes None Seen (NORMAL); Sickle Cells 2+ (NORMAL)
[2022-05-10 07:53] LABS: Lactate Dehydrogenase 318 U/L (120-246)
[2022-05-10] MEDS: ENOXAPARIN 100 MG/ML SYRINGE 94 MG SUB-Q ×2 (08:45→21:48)
[2022-05-10] MEDS: methADONE HCL (*CRX) 10 MG TABLET PO ×3 (08:45→17:00)
[2022-05-10] MEDS: FOLIC ACID 1 MG TABLET PO (08:45)
[2022-05-10] MEDS: WARFARIN (*PBKC) 4 MG TABLET 12 MG PO (08:45)
[2022-05-10] MEDS: HYDROXYUREA (*CHEMO) 500 MG CAPSULE PO (08:45)
[2022-05-10 14:00] VITALS: BP 108/68; PULSE 92; RESP 12; TEMP 37.3; O2SAT 96
--- NOTE | 2022-05-10 16:11 | PM.IMPN ---
Progress Note: A&P Assessment and Plan (1) Sickle cell anemia with crisis: Code(s): D57.00 - Hb-SS disease with crisis, unspecified Status: Acute Assessment and Plan: -continue with IV fluids -Dr. Marks has been consulted. -continue with hydroxyurea -continue with the methadone -continue with analgesics. -continue with Benadryl. -continue with folic acid. 05/10/2022 interval history: 37-year-old male with history of sickle cell disease and and pulmonary emboli presented emergency department with complaint rib pain seen by senior financial analyst and suspect having sickle cell crisis patient being treated with hydroxyurea and folic acid, will continue to aggressively hydrate the patient, also seen and methadone clinic for pain management, to control the pain while in the hospital will start the patient on Dilaudid as needed and monitor, with history of PE and on warfarin however upon arrival patient INR was 1.2 suggesting patient had been non compliant with his medication the patient is now on warfarin 12 mg q.day and bridged Lovenox until INR is therapeutic, today patient INR is 1.9, patient was diagnosed with COVID-19 in March however repeat COVID test is still positive, patient is not requiring any oxygen and no treatment was started, will continue to monitor, upon arrival patient hemoglobin was 10.1 close to his normal level however it is today 8.7 most likely hemodulition as patient is being hydrated, will continue to monitor. (2) Hx of pulmonary embolus: Code(s): Z86.711 - Personal history of pulmonary embolism Status: Acute Assessment and Plan: -the patient stated that he missed 1 dose of Coumadin however his INR is only 1.2. I explained to the patient that we will need to bridge him from the subcu Lovenox and continue with this until his Coumadin is therapeutic. -daily PT INR. -continue with Coumadin while where bridging him with the Lovenox. -hold Lovenox if his platelets are less than 100. However his platelets are 286. (3) COVID-19: Code(s): U07.1 - COVID-19 Status: Acute Assessment and Plan: -supportive care. -the patient will be on contact and droplet isolation. -this may be the cause of his sickle cell crisis pain. (4) Chronic pain syndrome: Code(s): G89.4 - Chronic pain syndrome Status: Chronic Assessment and Plan: -continue with home medications -the patient is on methadone as a home medication. Subjective Date/time seen: 05/10/22 16:11 05/10/2022 interval history: 37-year-old male with history of sickle cell disease and and pulmonary emboli presented emergency department with complaint rib pain seen by senior financial analyst and suspect having sickle cell crisis patient being treated with hydroxyurea and folic acid, will continue to aggressively hydrate the patient, also seen and methadone clinic for pain management, to control the pain while in the hospital will start the patient on Dilaudid as needed and monitor, with history of PE and on warfarin however upon arrival patient INR was 1.2 suggesting patient had been non compliant with his medication the patient is now on warfarin 12 mg q.day and bridged Lovenox until INR is therapeutic, today patient INR is 1.9, patient was diagnosed with COVID-19 in March however repeat COVID test is still positive, patient is not requiring any oxygen and no treatment was started, will continue to monitor, upon arrival patient hemoglobin was 10.1 close to his normal level however it is today 8.7 most likely hemodulition as patient is being hydrated, will continue to monitor, Review of Systems Review of Systems: All systems reviewed & are unremarkable except as noted in HPI and below Exam Narrative: Patient is comfortable, NAD HEENT: eyes are clear and none icteric LUNGS: normal respiratory effort ABD: not distended Lower extremities: no edema SKIN: nonjaundiced Neuro: grossly
[2022-05-10 21:52] VITALS: BP 114/63; PULSE 87; RESP 16; TEMP 37.2; O2SAT 96
[2022-05-10] MEDS: guaiFENesin 12 HR 600 MG TABCR 1200 MG PO (22:52)
[2022-05-11] MEDS: HYDROmorphone HCL INJ (*CRX) 1 MG/ML SYR 3 MG IV PUSH ×7 (01:10→20:48)
[2022-05-11] MEDS: SODIUM CHLORIDE 0.9% IV 1,000 ML 125 ML IV CONT ×3 (04:10→20:49)
[2022-05-11 05:19] VITALS: BP 104/57; PULSE 80; RESP 14; TEMP 37; O2SAT 96
[2022-05-11 06:39] LABS: Basophils Absolute Auto 0.1 K/mm3 (0.0-0.1); Basophils Percent Auto 0.4 % (0.2-1.2); Eosinophils Absolute Auto 0.1 K/mm3 (0-0.3); Eosinophils Percent Auto 0.7 % (0-4.4); Hematocrit 23.1 % (42.0-52.0); Hemoglobin 8.2 g/dL (14.0-18.0); Immature Granulocyte Absolute 0.04 K/mm3 (0.00-0.031); Immature Granulocyte Percent A 0.3 % (0-0.5); Lymphocytes Absolute Auto 6.65 K/mm3 (0.9-3.2); Lymphocytes Percent Auto 56.2 % (18.3-44.2); Mean Corpuscular HGB Conc 35.5 g/dl (32-36); Mean Corpuscular Hemoglobin 30.8 pg (26-34); Mean Corpuscular Volume 86.8 fl (80-100); Mean Platelet Volume 10.4 fl (7.4-10.4); Monocytes Absolute Auto 1.1 K/mm3 (0.1-0.6); Monocytes Percent Auto 9.2 % (2.6-8.5); Neutrophils Absolute Auto 3.9 K/mm3 (1.3-6.7); Neutrophils Percent Auto 33.2 % (45.5-73.1); Nucleated Red Blood Cells Absolute Auto 0.1 K/mm3 (0.0-0.012); Nucleated Red Blood Cells Perc 0.7 % (0.0-0.2); Platelet Count Result 252 k/mm3 (150-375); Red Blood Count 2.66 M/mm3 (4.6-6.20); Red Cell Distribution Width 15.7 % (11.5-14.5); White Blood Count 11.8 K/mm3 (4.5-10.0)
[2022-05-11 06:47] LABS: INR 2.4; Prothrombin Time 25.2 Seconds (11.1-14.7)
[2022-05-11 07:06] LABS: Alanine Aminotransferase 21 U/L (6-50); Albumin Level 3.5 g/dL (3.5-5.1); Alkaline Phosphatase 57 U/L (38-126); Anion Gap 4 mmol/L (8-16); Aspartate Amino Transferase 42 U/L (17-59); Bilirubin,Total 1.3 mg/dL (0.2-1.3); Blood Urea Nitrogen 4 mg/dL (9-20); Calcium 7.3 mg/dL (8.4-10.2); Carbon Dioxide 25 mmol/L (22-30); Chloride 112 mmol/L (98-107); Estimated CRCL calculation 191 ml/min; Estimated Glomerular Filt Rate > 60; Glucose 92 mg/dL (65-110); Lactate Dehydrogenase 338 U/L (120-246); Potassium 3.8 mmol/L (3.4-5.0); Sodium 141 mmol/L (137-145)
[2022-05-11 07:47] LABS: Immature Reticulocyte Fraction 22.1 % (3.0-15.9); Reticulocyte Percent 4.09 % (0.7-4.3)
[2022-05-11 07:55] LABS: Platelet Estimate Adequate (Adequate); Target Cells 2+ (NORMAL)
[2022-05-11 07:56] LABS: Schistocytes None Seen (NORMAL); Sickle Cells 2+ (NORMAL)
[2022-05-11] MEDS: guaiFENesin 12 HR 600 MG TABCR 1200 MG PO ×2 (08:55→20:48)
[2022-05-11] MEDS: WARFARIN (*PBKC) 4 MG TABLET 12 MG PO (08:55)
[2022-05-11] MEDS: HYDROXYUREA (*CHEMO) 500 MG CAPSULE PO (08:55)
[2022-05-11] MEDS: FOLIC ACID 1 MG TABLET PO (08:55)
[2022-05-11] MEDS: methADONE HCL (*CRX) 10 MG TABLET PO ×3 (08:55→17:30)
--- NOTE | 2022-05-11 11:33 | PM.IMPN ---
Progress Note: A&P Assessment and Plan (1) Sickle cell anemia with crisis: Code(s): D57.00 - Hb-SS disease with crisis, unspecified Status: Acute Assessment and Plan: -continue with IV fluids -Dr. Marks has been consulted. -continue with hydroxyurea -continue with the methadone -continue with analgesics. -continue with Benadryl. -continue with folic acid. (2) Hx of pulmonary embolus: Code(s): Z86.711 - Personal history of pulmonary embolism Status: Acute Assessment and Plan: -the patient stated that he missed 1 dose of Coumadin however his INR is only 1.2. I explained to the patient that we will need to bridge him from the subcu Lovenox and continue with this until his Coumadin is therapeutic. -daily PT INR. -continue with Coumadin while where bridging him with the Lovenox. -hold Lovenox if his platelets are less than 100. However his platelets are 286. (3) COVID-19: Code(s): U07.1 - COVID-19 Status: Acute Assessment and Plan: -supportive care. -the patient will be on contact and droplet isolation. -this may be the cause of his sickle cell crisis pain. (4) Chronic pain syndrome: Code(s): G89.4 - Chronic pain syndrome Status: Chronic Assessment and Plan: -continue with home medications -the patient is on methadone as a home medication. (5) Pneumonia: Qualifiers: Laterality: right Lung location: lower lobe of lung Pneumonia type: due to unspecified organism Qualified Code(s): J18.9 - Pneumonia, unspecified organism Code(s): J18.9 - Pneumonia, unspecified organism Status: Acute Assessment and Plan: Antibiotics Subjective Date/time seen: 05/11/22 11:33 No new complaints Exam Narrative: Patient is comfortable, NAD HEENT: eyes are clear and none icteric LUNGS: normal respiratory effort ABD: not distended Lower extremities: no edema SKIN: nonjaundiced Neuro: grossly intact. Objective Data Vital Signs Vital Signs: Vital Signs - 24 hr 05/10/22 14:00 05/10/22 21:52 05/10/22 20:00 Temperature 99.1 F 99 F Pulse Rate 92 87 Respiratory Rate 12 16 Blood Pressure 108/68 114/63 Pulse Oximetry 96 96 Oxygen Delivery Room Air 05/11/22 05:19 Temperature 98.6 F Pulse Rate 80 Respiratory Rate 14 Blood Pressure 104/57 L Pulse Oximetry 96 Oxygen Delivery Intake/Output Intake/Output: Intake & Output 05/08/22 05/09/22 05/10/22 05/11/22 23:59 23:59 23:59 23:59 Intake Total 100 5422 3970 2220 Output Total 3297 549 7802 Balance 100 3897 3270 1020 Meds/Results Medications: Active Medications Generic Name Dose Route Start Last Admin Trade Name Freq PRN Reason Stop Dose Admin Diphenhydramine HCl 25 mg 05/08/22 18:13 05/10/22 21:47 Diphenhydramine Hcl Inj 50 Mg/Ml Vial IV PUSH 25 mg Q4H PRN Administration Itching Folic Acid 1 mg 05/09/22 09:00 05/11/22 08:55 Folic Acid 1 Mg Tablet PO 1 mg DAILY CHRISTOPHER Administration Guaifenesin 1,200 mg 05/10/22 21:00 05/11/22 08:55 Guaifenesin 12 Hr 600 Mg Tabcr PO 1,200 mg Q12HR CHRISTOPHER Administration Guaifenesin/Dextromethorphan 10 ml 05/10/22 22:13 Guaifenesin/Dextromethorphan 10 Ml Udc PO Q4H PRN Cough Hydromorphone HCl 3 mg 05/08/22 18:14 05/11/22 11:06 Hydromorphone Hcl Inj (*Crx) 1 Mg/Ml Syr IV PUSH 3 mg Q3H PRN Administration Pain Rated 7-10 Hydroxyurea 500 mg 05/09/22 09:00 05/11/22 08:55 Hydroxyurea (*Chemo) 500 Mg Capsule PO 500 mg QAM CHRISTOPHER Administration Sodium Chloride 1,000 mls @ 125 mls/hr 05/08/22 21:45 05/11/22 11:09 Normal Saline Iv IV CONT 125 mls/hr .Q8H CHRISTOPHER Administration Methadone HCl 10 mg 05/08/22 22:20 05/11/22 08:55 Methadone Hcl (*Crx) 10 Mg Tablet PO 10 mg TID CHRISTOPHER Administration Oxycodone/Acetaminophen 1 tab 05/08/22 22:18 Oxycodone/Acetaminophen (*Crx) 10-325 Mg Tablet PO BID PRN Pain, Mo
[2022-05-11] MEDS: oxyCODONE/ACETAMINOPHEN (*CRX) 10-325 MG TABLET 1 TAB PO (13:40)
[2022-05-11] MEDS: CEFDINIR 300 MG CAPSULE PO ×2 (13:40→20:48)
[2022-05-11 14:00] VITALS: BP 98/69; PULSE 74; RESP 20; TEMP 35.9; O2SAT 93
[2022-05-11 21:26] VITALS: BP 100/61; PULSE 77; RESP 14; TEMP 36.2; O2SAT 91
[2022-05-12] MEDS: diphenhydrAMINE HCl INJ 50 MG/ML VIAL 25 MG IV PUSH ×2 (00:40→21:41)
[2022-05-12] MEDS: HYDROmorphone HCL INJ (*CRX) 1 MG/ML SYR 3 MG IV PUSH ×7 (00:40→18:34)
[2022-05-12] MEDS: oxyCODONE/ACETAMINOPHEN (*CRX) 10-325 MG TABLET 1 TAB PO (02:46)
[2022-05-12 05:28] VITALS: BP 99/67; PULSE 80; RESP 14; TEMP 36.4; O2SAT 91
[2022-05-12] MEDS: SODIUM CHLORIDE 0.9% IV 1,000 ML 125 ML IV CONT ×3 (05:43→21:42)
[2022-05-12] MEDS: guaiFENesin/DEXTROMETHORPHAN 10 ML UDC PO ×2 (05:44→10:18)
[2022-05-12] MEDS: methADONE HCL (*CRX) 10 MG TABLET PO ×3 (08:20→21:41)
[2022-05-12] MEDS: HYDROXYUREA (*CHEMO) 500 MG CAPSULE PO (08:20)
[2022-05-12] MEDS: FOLIC ACID 1 MG TABLET PO (08:20)
[2022-05-12] MEDS: guaiFENesin 12 HR 600 MG TABCR 1200 MG PO ×2 (08:21→21:41)
[2022-05-12] MEDS: CEFDINIR 300 MG CAPSULE PO ×2 (08:21→21:42)
[2022-05-12] MEDS: WARFARIN (*PBKC) 4 MG TABLET 12 MG PO (10:18)
[2022-05-12 11:04] LABS: Basophils Absolute Auto 0.1 K/mm3 (0.0-0.1); Basophils Percent Auto 0.5 % (0.2-1.2); Eosinophils Absolute Auto 0.3 K/mm3 (0-0.3); Eosinophils Percent Auto 2.6 % (0-4.4); Hemoglobin 8.1 g/dL (14.0-18.0); Immature Granulocyte Percent A 0.9 % (0-0.5); Immature Platelet Fraction Pct 5.7 % (0.9-11.2); Lymphocytes Absolute Auto 4.33 K/mm3 (0.9-3.2); Lymphocytes Percent Auto 37.1 % (18.3-44.2); Mean Corpuscular HGB Conc 35.2 g/dl (32-36); Mean Corpuscular Hemoglobin 30.5 pg (26-34); Mean Corpuscular Volume 86.5 fl (80-100); Mean Platelet Volume 10.5 fl (7.4-10.4); Monocytes Absolute Auto 1.3 K/mm3 (0.1-0.6); Monocytes Percent Auto 10.7 % (2.6-8.5); Neutrophils Absolute Auto 5.6 K/mm3 (1.3-6.7); Neutrophils Percent Auto 48.2 % (45.5-73.1); Nucleated Red Blood Cells Absolute Auto 0.2 K/mm3 (0.0-0.012); Nucleated Red Blood Cells Perc 1.5 % (0.0-0.2); Platelet Count Result 253 k/mm3 (150-375); Red Blood Count 2.66 M/mm3 (4.6-6.20); Red Cell Distribution Width 16.2 % (11.5-14.5); White Blood Count 11.7 K/mm3 (4.5-10.0)
[2022-05-12 11:16] LABS: Alanine Aminotransferase 22 U/L (6-50); Albumin Level 3.5 g/dL (3.5-5.1); Alkaline Phosphatase 56 U/L (38-126); Anion Gap 1 mmol/L (8-16); Aspartate Amino Transferase 44 U/L (17-59); Bilirubin,Total 1.3 mg/dL (0.2-1.3); Blood Urea Nitrogen 5 mg/dL (9-20); Calcium 7.7 mg/dL (8.4-10.2); Carbon Dioxide 28 mmol/L (22-30); Chloride 112 mmol/L (98-107); Estimated CRCL calculation 163 ml/min; Estimated Glomerular Filt Rate > 60; Glucose 106 mg/dL (65-110); Lactate Dehydrogenase 375 U/L (120-246); Magnesium 2.1 mg/dL (1.6-2.3); Potassium 3.9 mmol/L (3.4-5.0); Sodium 141 mmol/L (137-145)
[2022-05-12 11:24] LABS: INR 2.6; Prothrombin Time 27.2 Seconds (11.1-14.7)
[2022-05-12 12:12] LABS: Immature Reticulocyte Fraction 17.6 % (3.0-15.9); Reticulocyte Hemoglobin Conten 25.8 pg (28.2-35.7); Reticulocyte Percent 8.03 % (0.7-4.3); Reticulocytes Absolute 0.21 B/L (32.2-175.7)
[2022-05-12 12:14] LABS: Hypochromasia 1+ (NORMAL); Platelet Estimate Adequate (Adequate); Poikilocytosis 2+ (NORMAL)
[2022-05-12 12:15] LABS: Anisocytosis 1+ (NORMAL); Schistocytes None Seen (NORMAL); Sickle Cells 2+ (NORMAL); Target Cells 2+ (NORMAL)
--- NOTE | 2022-05-12 12:51 | PM.IMPN ---
Progress Note: A&P Assessment and Plan (1) Sickle cell anemia with crisis: Code(s): D57.00 - Hb-SS disease with crisis, unspecified Status: Acute Assessment and Plan: -continue with IV fluids -continue with hydroxyurea -continue with the methadone -continue with analgesics. -continue with Benadryl. -continue with folic acid. (2) Hx of pulmonary embolus: Code(s): Z86.711 - Personal history of pulmonary embolism Status: Acute Assessment and Plan: continue coumadin (3) COVID-19: Code(s): U07.1 - COVID-19 Status: Acute Assessment and Plan: -supportive care. -the patient will be on contact and droplet isolation. -this may be the cause of his sickle cell crisis pain. (4) Chronic pain syndrome: Code(s): G89.4 - Chronic pain syndrome Status: Chronic Assessment and Plan: -continue with home medications -the patient is on methadone as a home medication. (5) Pneumonia: Qualifiers: Laterality: right Lung location: lower lobe of lung Pneumonia type: due to unspecified organism Qualified Code(s): J18.9 - Pneumonia, unspecified organism Code(s): J18.9 - Pneumonia, unspecified organism Status: Acute Assessment and Plan: Antibiotics Subjective Date/time seen: 05/12/22 12:51 No complaints Exam Narrative: Patient is comfortable, NAD HEENT: eyes are clear and none icteric LUNGS: normal respiratory effort ABD: not distended Lower extremities: no edema SKIN: nonjaundiced Neuro: grossly intact. Objective Data Vital Signs Vital Signs: Vital Signs - 24 hr 05/11/22 14:00 05/11/22 21:26 05/11/22 20:00 Temperature 96.6 F L 97.1 F L Pulse Rate 74 77 Respiratory Rate 20 14 Blood Pressure 98/69 L 100/61 Pulse Oximetry 93 91 Oxygen Delivery Room Air 05/12/22 05:28 Temperature 97.6 F Pulse Rate 80 Respiratory Rate 14 Blood Pressure 99/67 L Pulse Oximetry 91 Oxygen Delivery Intake/Output Intake/Output: Intake & Output 05/09/22 05/10/22 05/11/22 05/12/22 23:59 23:59 23:59 23:59 Intake Total 5422 3970 4380 1500 Output Total 2442 318 8536 1300 Balance 3897 3270 2430 200 Meds/Results Medications: Active Medications Generic Name Dose Route Start Last Admin Trade Name Freq PRN Reason Stop Dose Admin Cefdinir 300 mg 05/11/22 11:40 05/12/22 08:21 Cefdinir 300 Mg Capsule PO 05/16/22 11:39 300 mg Q12HR CHRISTOPHER Administration Diphenhydramine HCl 25 mg 05/08/22 18:13 05/12/22 00:40 Diphenhydramine Hcl Inj 50 Mg/Ml Vial IV PUSH 25 mg Q4H PRN Administration Itching Folic Acid 1 mg 05/09/22 09:00 05/12/22 08:20 Folic Acid 1 Mg Tablet PO 1 mg DAILY CHRISTOPHER Administration Guaifenesin 1,200 mg 05/10/22 21:00 05/12/22 08:21 Guaifenesin 12 Hr 600 Mg Tabcr PO 1,200 mg Q12HR CHRISTOPHER Administration Guaifenesin/Dextromethorphan 10 ml 05/10/22 22:13 05/12/22 10:18 Guaifenesin/Dextromethorphan 10 Ml Udc PO 10 ml Q4H PRN Administration Cough Hydromorphone HCl 3 mg 05/08/22 18:14 05/12/22 12:15 Hydromorphone Hcl Inj (*Crx) 1 Mg/Ml Syr IV PUSH 3 mg Q3H PRN Administration Pain Rated 7-10 Hydroxyurea 500 mg 05/09/22 09:00 05/12/22 08:20 Hydroxyurea (*Chemo) 500 Mg Capsule PO 500 mg QAM CHRISTOPHER Administration Sodium Chloride 1,000 mls @ 125 mls/hr 05/08/22 21:45 05/12/22 05:43 Normal Saline Iv IV CONT 125 mls/hr .Q8H CHRISTOPHER Administration Methadone HCl 10 mg 05/12/22 09:00 05/12/22 08:20 Methadone Hcl (*Crx) 10 Mg Tablet PO 10 mg 0900,1700,2100 CHRISTOPHER Administration Oxycodone/Acetaminophen 1 tab 05/08/22 22:18 05/12/22 02:46 Oxycodone/Acetaminophen (*Crx) 10-325 Mg Tablet PO 1 tab BID PRN Administration Pain, Moderate 4-6 Warfarin Sodium 12 mg 05/09/22 09:00 05/12/22 10:18 Warfarin (*Pbkc) 4 Mg Tablet PO 12 mg DAILY CHRISTOPHER Administration Radiology Results: ITS Impressions
[2022-05-12 14:00] VITALS: BP 112/69; PULSE 73; RESP 20; TEMP 36.2; O2SAT 93
[2022-05-12 21:15] VITALS: BP 110/60; PULSE 80; RESP 12; TEMP 36.6; O2SAT 95
[2022-05-12 21:37] VITALS: PULSE 77; RESP 14; TEMP 36.5; O2SAT 93
[2022-05-13] MEDS: HYDROmorphone HCL INJ (*CRX) 1 MG/ML SYR 3 MG IV PUSH ×7 (01:10→23:30)
[2022-05-13] MEDS: SODIUM CHLORIDE 0.9% IV 1,000 ML 125 ML IV CONT ×3 (05:43→20:32)
[2022-05-13 05:45] VITALS: BP 118/66; PULSE 79; RESP 14; TEMP 36.4; O2SAT 98
[2022-05-13 06:33] LABS: Basophils Percent Auto 0.3 % (0.2-1.2); Eosinophils Absolute Auto 0.4 K/mm3 (0-0.3); Eosinophils Percent Auto 3.3 % (0-4.4); Hematocrit 23.2 % (42.0-52.0); Hemoglobin 8.2 g/dL (14.0-18.0); Immature Granulocyte Absolute 0.08 K/mm3 (0.00-0.031); Immature Granulocyte Percent A 0.6 % (0-0.5); Immature Platelet Fraction Pct 7.1 % (0.9-11.2); Lymphocytes Absolute Auto 3.91 K/mm3 (0.9-3.2); Lymphocytes Percent Auto 30.3 % (18.3-44.2); Mean Corpuscular HGB Conc 35.3 g/dl (32-36); Mean Corpuscular Hemoglobin 31.4 pg (26-34); Mean Corpuscular Volume 88.9 fl (80-100); Mean Platelet Volume 11.3 fl (7.4-10.4); Monocytes Absolute Auto 1.3 K/mm3 (0.1-0.6); Monocytes Percent Auto 10.3 % (2.6-8.5); Neutrophils Absolute Auto 7.1 K/mm3 (1.3-6.7); Neutrophils Percent Auto 55.2 % (45.5-73.1); Nucleated Red Blood Cells Absolute Auto 0.3 K/mm3 (0.0-0.012); Nucleated Red Blood Cells Perc 2.1 % (0.0-0.2); Platelet Count Result 247 k/mm3 (150-375); Red Blood Count 2.61 M/mm3 (4.6-6.20); Red Cell Distribution Width 16.4 % (11.5-14.5); White Blood Count 12.9 K/mm3 (4.5-10.0)
[2022-05-13 06:48] LABS: Alanine Aminotransferase 25 U/L (6-50); Albumin Level 3.7 g/dL (3.5-5.1); Alkaline Phosphatase 55 U/L (38-126); Anion Gap 5 mmol/L (8-16); Aspartate Amino Transferase 56 U/L (17-59); Blood Urea Nitrogen 4 mg/dL (9-20); Calcium 7.7 mg/dL (8.4-10.2); Carbon Dioxide 25 mmol/L (22-30); Chloride 111 mmol/L (98-107); Estimated CRCL calculation 163 ml/min; Estimated Glomerular Filt Rate > 60; Glucose 104 mg/dL (65-110); Lactate Dehydrogenase 480 U/L (120-246); Sodium 141 mmol/L (137-145)
[2022-05-13 07:37] LABS: Immature Reticulocyte Fraction 30.7 % (3.0-15.9); Reticulocyte Hemoglobin Conten 26.6 pg (28.2-35.7); Reticulocyte Percent 9.42 % (0.7-4.3); Reticulocytes Absolute 0.24 B/L (32.2-175.7)
[2022-05-13 07:58] LABS: Hypochromasia 1+ (NORMAL); Platelet Estimate Adequate (Adequate); Poikilocytosis 2+ (NORMAL)
[2022-05-13 07:59] LABS: Anisocytosis 2+ (NORMAL); Sickle Cells 2+ (NORMAL); Target Cells 2+ (NORMAL)
[2022-05-13 08:00] LABS: Schistocytes None Seen (NORMAL)
[2022-05-13] MEDS: guaiFENesin 12 HR 600 MG TABCR 1200 MG PO ×2 (08:27→20:32)
[2022-05-13] MEDS: WARFARIN (*PBKC) 4 MG TABLET 12 MG PO (08:27)
[2022-05-13] MEDS: methADONE HCL (*CRX) 10 MG TABLET PO ×3 (08:27→20:32)
[2022-05-13] MEDS: CEFDINIR 300 MG CAPSULE PO ×2 (08:27→20:32)
[2022-05-13] MEDS: FOLIC ACID 1 MG TABLET PO (08:27)
[2022-05-13] MEDS: HYDROXYUREA (*CHEMO) 500 MG CAPSULE PO (08:28)
--- NOTE | 2022-05-13 10:46 | PM.IMPN ---
Progress Note: A&P Assessment and Plan (1) Sickle cell anemia with crisis: Code(s): D57.00 - Hb-SS disease with crisis, unspecified Status: Acute Assessment and Plan: -continue with IV fluids -continue with hydroxyurea -continue with the methadone -continue with analgesics. -continue with Benadryl. -continue with folic acid. (2) Hx of pulmonary embolus: Code(s): Z86.711 - Personal history of pulmonary embolism Status: Acute Assessment and Plan: continue coumadin (3) COVID-19: Code(s): U07.1 - COVID-19 Status: Acute Assessment and Plan: -supportive care. -the patient will be on contact and droplet isolation. -this may be the cause of his sickle cell crisis pain. (4) Chronic pain syndrome: Code(s): G89.4 - Chronic pain syndrome Status: Chronic Assessment and Plan: -continue with home medications -the patient is on methadone as a home medication. (5) Pneumonia: Qualifiers: Laterality: right Lung location: lower lobe of lung Pneumonia type: due to unspecified organism Qualified Code(s): J18.9 - Pneumonia, unspecified organism Code(s): J18.9 - Pneumonia, unspecified organism Status: Acute Assessment and Plan: Antibiotics Subjective Date/time seen: 05/13/22 10:46 No new complaints Exam Narrative: Patient is comfortable, NAD HEENT: eyes are clear and none icteric LUNGS: normal respiratory effort ABD: not distended Lower extremities: no edema SKIN: nonjaundiced Neuro: grossly intact. Objective Data Vital Signs Vital Signs: Vital Signs - 24 hr 05/12/22 14:00 05/12/22 20:00 05/12/22 21:37 Temperature 97.1 F L 97.7 F Pulse Rate 73 77 Respiratory Rate 20 14 Blood Pressure 112/69 Pulse Oximetry 93 93 Oxygen Delivery Room Air 05/12/22 21:15 05/13/22 05:45 Temperature 98 F 97.6 F Pulse Rate 80 79 Respiratory Rate 12 14 Blood Pressure 110/60 118/66 Pulse Oximetry 95 98 Oxygen Delivery Intake/Output Intake/Output: Intake & Output 05/10/22 05/11/22 05/12/22 05/13/22 23:59 23:59 23:59 23:59 Intake Total 3970 4380 4660 1750 Output Total 700 1950 1900 1200 Balance 3270 2430 2760 550 Meds/Results Medications: Active Medications Generic Name Dose Route Start Last Admin Trade Name Freq PRN Reason Stop Dose Admin Cefdinir 300 mg 05/11/22 11:40 05/13/22 08:27 Cefdinir 300 Mg Capsule PO 05/16/22 11:39 300 mg Q12HR CHRISTOPHER Administration Diphenhydramine HCl 25 mg 05/08/22 18:13 05/12/22 21:41 Diphenhydramine Hcl Inj 50 Mg/Ml Vial IV PUSH 25 mg Q4H PRN Administration Itching Folic Acid 1 mg 05/09/22 09:00 05/13/22 08:27 Folic Acid 1 Mg Tablet PO 1 mg DAILY CHRISTOPHER Administration Guaifenesin 1,200 mg 05/10/22 21:00 05/13/22 08:27 Guaifenesin 12 Hr 600 Mg Tabcr PO 1,200 mg Q12HR CHRISTOPHER Administration Guaifenesin/Dextromethorphan 10 ml 05/10/22 22:13 05/12/22 10:18 Guaifenesin/Dextromethorphan 10 Ml Udc PO 10 ml Q4H PRN Administration Cough Hydromorphone HCl 3 mg 05/08/22 18:14 05/13/22 08:28 Hydromorphone Hcl Inj (*Crx) 1 Mg/Ml Syr IV PUSH 3 mg Q3H PRN Administration Pain Rated 7-10 Hydroxyurea 500 mg 05/09/22 09:00 05/13/22 08:28 Hydroxyurea (*Chemo) 500 Mg Capsule PO 500 mg QAM CHRISTOPHER Administration Sodium Chloride 1,000 mls @ 125 mls/hr 05/08/22 21:45 05/13/22 05:43 Normal Saline Iv IV CONT 125 mls/hr .Q8H CHRISTOPHER Administration Methadone HCl 10 mg 05/12/22 09:00 05/13/22 08:27 Methadone Hcl (*Crx) 10 Mg Tablet PO 10 mg 0900,1700,2100 CHRISTOPHER Administration Oxycodone/Acetaminophen 1 tab 05/08/22 22:18 05/12/22 02:46 Oxycodone/Acetaminophen (*Crx) 10-325 Mg Tablet PO 1 tab BID PRN Administration Pain, Moderate 4-6 Warfarin Sodium 12 mg 05/09/22 09:00 05/13/22 08:27 Warfarin (*Pbkc) 4 Mg Tablet PO 12 mg DAILY CHRISTOPHER Administration Radi
[2022-05-13 13:34] LABS: INR 3.6; Prothrombin Time 34.8 Seconds (11.1-14.7)
[2022-05-13 16:00] VITALS: BP 105/69; PULSE 71; RESP 20; TEMP 36.4; O2SAT 93
[2022-05-13 20:00] VITALS: PULSE 71; RESP 20; O2SAT 96
[2022-05-13 22:00] VITALS: BP 120/73; PULSE 75; RESP 16; TEMP 36.4; O2SAT 91
[2022-05-13] MEDS: diphenhydrAMINE HCl INJ 50 MG/ML VIAL 25 MG IV PUSH (23:34)
[2022-05-14] MEDS: HYDROmorphone HCL INJ (*CRX) 1 MG/ML SYR 3 MG IV PUSH ×7 (02:30→22:20)
[2022-05-14] MEDS: SODIUM CHLORIDE 0.9% IV 1,000 ML 125 ML IV CONT ×2 (05:32→13:50)
[2022-05-14 06:00] VITALS: BP 106/59; PULSE 75; RESP 14; TEMP 36.6; O2SAT 92
[2022-05-14 06:19] LABS: Basophils Percent Auto 0.2 % (0.2-1.2); Eosinophils Absolute Auto 0.4 K/mm3 (0-0.3); Eosinophils Percent Auto 2.5 % (0-4.4); Hematocrit 23.9 % (42.0-52.0); Hemoglobin 8.4 g/dL (14.0-18.0); Immature Granulocyte Absolute 0.07 K/mm3 (0.00-0.031); Immature Granulocyte Percent A 0.5 % (0-0.5); Immature Platelet Fraction Pct 7.1 % (0.9-11.2); Immature Reticulocyte Fraction 33.5 % (3.0-15.9); Lymphocytes Absolute Auto 4.19 K/mm3 (0.9-3.2); Mean Corpuscular HGB Conc 35.1 g/dl (32-36); Mean Corpuscular Hemoglobin 30.5 pg (26-34); Mean Corpuscular Volume 86.9 fl (80-100); Mean Platelet Volume 10.9 fl (7.4-10.4); Monocytes Absolute Auto 1.4 K/mm3 (0.1-0.6); Monocytes Percent Auto 9.6 % (2.6-8.5); Neutrophils Absolute Auto 8.4 K/mm3 (1.3-6.7); Neutrophils Percent Auto 58.2 % (45.5-73.1); Nucleated Red Blood Cells Absolute Auto 0.3 K/mm3 (0.0-0.012); Platelet Count Result 274 k/mm3 (150-375); Red Blood Count 2.75 M/mm3 (4.6-6.20); Red Cell Distribution Width 16.7 % (11.5-14.5); Reticulocyte Percent 9.81 % (0.7-4.3); White Blood Count 14.5 K/mm3 (4.5-10.0)
[2022-05-14 06:23] LABS: Prothrombin Time 37.9 Seconds (11.1-14.7)
[2022-05-14 06:33] LABS: Alanine Aminotransferase 27 U/L (6-50); Albumin Level 3.7 g/dL (3.5-5.1); Alkaline Phosphatase 60 U/L (38-126); Anion Gap 3 mmol/L (8-16); Aspartate Amino Transferase 46 U/L (17-59); Bilirubin,Total 1.8 mg/dL (0.2-1.3); Blood Urea Nitrogen 5 mg/dL (9-20); Carbon Dioxide 27 mmol/L (22-30); Chloride 111 mmol/L (98-107); Estimated CRCL calculation 163 ml/min; Estimated Glomerular Filt Rate > 60; Glucose 99 mg/dL (65-110); Lactate Dehydrogenase 414 U/L (120-246); Potassium 3.6 mmol/L (3.4-5.0); Sodium 141 mmol/L (137-145)
[2022-05-14 07:29] LABS: Anisocytosis 1+ (NORMAL); Platelet Estimate Adequate (Adequate); Sickle Cells 2+ (NORMAL); Target Cells 2+ (NORMAL)
[2022-05-14 07:30] LABS: Schistocytes None Seen (NORMAL)
[2022-05-14] MEDS: guaiFENesin 12 HR 600 MG TABCR 1200 MG PO ×2 (08:41→20:58)
[2022-05-14] MEDS: WARFARIN (*PBKC) 4 MG TABLET 12 MG PO (08:41)
[2022-05-14] MEDS: HYDROXYUREA (*CHEMO) 500 MG CAPSULE PO (08:41)
[2022-05-14] MEDS: FOLIC ACID 1 MG TABLET PO (08:42)
[2022-05-14] MEDS: methADONE HCL (*CRX) 10 MG TABLET PO ×3 (08:42→20:58)
[2022-05-14] MEDS: CEFDINIR 300 MG CAPSULE PO ×2 (08:42→20:58)
--- NOTE | 2022-05-14 11:28 | PM.IMPN ---
Progress Note: A&P Assessment and Plan (1) Sickle cell anemia with crisis: Code(s): D57.00 - Hb-SS disease with crisis, unspecified Status: Acute Assessment and Plan: -continue with IV fluids -continue with hydroxyurea -continue with the methadone -continue with analgesics. -continue with Benadryl. -continue with folic acid. (2) Hx of pulmonary embolus: Code(s): Z86.711 - Personal history of pulmonary embolism Status: Acute Assessment and Plan: continue coumadin (3) COVID-19: Code(s): U07.1 - COVID-19 Status: Acute Assessment and Plan: -supportive care. -the patient will be on contact and droplet isolation. -this may be the cause of his sickle cell crisis pain. (4) Chronic pain syndrome: Code(s): G89.4 - Chronic pain syndrome Status: Chronic Assessment and Plan: -continue with home medications -the patient is on methadone as a home medication. (5) Pneumonia: Qualifiers: Laterality: right Lung location: lower lobe of lung Pneumonia type: due to unspecified organism Qualified Code(s): J18.9 - Pneumonia, unspecified organism Code(s): J18.9 - Pneumonia, unspecified organism Status: Acute Assessment and Plan: Antibiotics Subjective Date/time seen: 05/14/22 11:28 no new complaints pain is better each day eating ok Exam Narrative: Patient is comfortable, NAD HEENT: eyes are clear and none icteric LUNGS: normal respiratory effort ABD: not distended Lower extremities: no edema SKIN: nonjaundiced Neuro: grossly intact. Objective Data Vital Signs Vital Signs: Vital Signs - 24 hr 05/13/22 16:00 05/13/22 22:00 05/13/22 20:00 Temperature 97.5 F L 97.6 F Pulse Rate 71 75 71 Respiratory Rate 20 16 20 Blood Pressure 105/69 120/73 Pulse Oximetry 93 91 96 Oxygen Delivery Room Air 05/14/22 06:00 05/14/22 08:42 Temperature 97.8 F Pulse Rate 75 Respiratory Rate 14 Blood Pressure 106/59 L Pulse Oximetry 92 Oxygen Delivery Room Air Intake/Output Intake/Output: Intake & Output 05/11/22 05/12/22 05/13/22 05/14/22 23:59 23:59 23:59 23:59 Intake Total 4380 4660 4820 1000 Output Total 1950 1900 4050 1000 Balance 2430 2760 770 0 Meds/Results Medications: Active Medications Generic Name Dose Route Start Last Admin Trade Name Freq PRN Reason Stop Dose Admin Cefdinir 300 mg 05/11/22 11:40 05/14/22 08:42 Cefdinir 300 Mg Capsule PO 05/16/22 11:39 300 mg Q12HR CHRISTOPHER Administration Diphenhydramine HCl 25 mg 05/08/22 18:13 05/13/22 23:34 Diphenhydramine Hcl Inj 50 Mg/Ml Vial IV PUSH 25 mg Q4H PRN Administration Itching Folic Acid 1 mg 05/09/22 09:00 05/14/22 08:42 Folic Acid 1 Mg Tablet PO 1 mg DAILY CHRISTOPHER Administration Guaifenesin 1,200 mg 05/10/22 21:00 05/14/22 08:41 Guaifenesin 12 Hr 600 Mg Tabcr PO 1,200 mg Q12HR CHRISTOPHER Administration Guaifenesin/Dextromethorphan 10 ml 05/10/22 22:13 05/12/22 10:18 Guaifenesin/Dextromethorphan 10 Ml Udc PO 10 ml Q4H PRN Administration Cough Hydromorphone HCl 3 mg 05/08/22 18:14 05/14/22 08:42 Hydromorphone Hcl Inj (*Crx) 1 Mg/Ml Syr IV PUSH 3 mg Q3H PRN Administration Pain Rated 7-10 Hydroxyurea 500 mg 05/09/22 09:00 05/14/22 08:41 Hydroxyurea (*Chemo) 500 Mg Capsule PO 500 mg QAM CHRISTOPHER Administration Sodium Chloride 1,000 mls @ 125 mls/hr 05/08/22 21:45 05/14/22 05:32 Normal Saline Iv IV CONT 125 mls/hr .Q8H CHRISTOPHER Administration Methadone HCl 10 mg 05/12/22 09:00 05/14/22 08:42 Methadone Hcl (*Crx) 10 Mg Tablet PO 10 mg 0900,1700,2100 CHRISTOPHER Administration Oxycodone/Acetaminophen 1 tab 05/08/22 22:18 05/12/22 02:46 Oxycodone/Acetaminophen (*Crx) 10-325 Mg Tablet PO 1 tab BID PRN Administration Pain, Moderate 4-6 Phenol 1 spray 05/13/22 17:31 Phenol/Sod Pheno [place] (*Bkc) MUCOUS MEM PRN PRN
[2022-05-14 14:00] VITALS: BP 116/79; PULSE 89; RESP 16; TEMP 36.6; O2SAT 96
--- NOTE | 2022-05-14 14:39 | PC.NURSE ---
Pt has spent the shift in bed. Pt states he is in a 7/10 pain when asked to rate. Pt is A&O4 and participates and contributes in plan of care. Pt expresses no need and has no complaints. Will continue to monitor pt.
[2022-05-14] MEDS: WARFARIN (*PBKC) 3 MG TABLET 6 MG PO (17:30)
[2022-05-14 21:16] VITALS: BP 118/66; PULSE 84; RESP 14; TEMP 36.5; O2SAT 94
[2022-05-14] MEDS: diphenhydrAMINE HCl INJ 50 MG/ML VIAL 25 MG IV PUSH (22:25)
[2022-05-15] MEDS: HYDROmorphone HCL INJ (*CRX) 1 MG/ML SYR 3 MG IV PUSH ×7 (01:53→23:28)
[2022-05-15 06:00] VITALS: BP 140/82; PULSE 91; RESP 14; TEMP 36.1; O2SAT 93
[2022-05-15 06:33] LABS: Basophils Percent Auto 0.3 % (0.2-1.2); Eosinophils Absolute Auto 0.4 K/mm3 (0-0.3); Eosinophils Percent Auto 3.5 % (0-4.4); Hemoglobin 8.6 g/dL (14.0-18.0); Immature Granulocyte Absolute 0.06 K/mm3 (0.00-0.031); Immature Granulocyte Percent A 0.5 % (0-0.5); Immature Platelet Fraction Pct 7.3 % (0.9-11.2); Lymphocytes Absolute Auto 3.75 K/mm3 (0.9-3.2); Lymphocytes Percent Auto 30.4 % (18.3-44.2); Mean Corpuscular HGB Conc 35.8 g/dl (32-36); Mean Corpuscular Hemoglobin 32.2 pg (26-34); Mean Corpuscular Volume 89.9 fl (80-100); Mean Platelet Volume 11.4 fl (7.4-10.4); Monocytes Absolute Auto 1.2 K/mm3 (0.1-0.6); Monocytes Percent Auto 9.7 % (2.6-8.5); Neutrophils Absolute Auto 6.9 K/mm3 (1.3-6.7); Neutrophils Percent Auto 55.6 % (45.5-73.1); Nucleated Red Blood Cells Absolute Auto 0.2 K/mm3 (0.0-0.012); Nucleated Red Blood Cells Perc 1.9 % (0.0-0.2); Platelet Count Result 312 k/mm3 (150-375); Red Blood Count 2.67 M/mm3 (4.6-6.20); White Blood Count 12.3 K/mm3 (4.5-10.0)
[2022-05-15 06:39] LABS: Alanine Aminotransferase 26 U/L (6-50); Albumin Level 3.8 g/dL (3.5-5.1); Alkaline Phosphatase 68 U/L (38-126); Anion Gap 3 mmol/L (8-16); Aspartate Amino Transferase 43 U/L (17-59); Bilirubin,Total 1.5 mg/dL (0.2-1.3); Blood Urea Nitrogen 5 mg/dL (9-20); Calcium 8.2 mg/dL (8.4-10.2); Carbon Dioxide 28 mmol/L (22-30); Chloride 110 mmol/L (98-107); Estimated CRCL calculation 163 ml/min; Estimated Glomerular Filt Rate > 60; Glucose 104 mg/dL (65-110); INR 4.4; Lactate Dehydrogenase 423 U/L (120-246); Magnesium 2.2 mg/dL (1.6-2.3); Potassium 3.8 mmol/L (3.4-5.0); Prothrombin Time 40.6 Seconds (11.1-14.7); Sodium 141 mmol/L (137-145)
[2022-05-15 07:55] LABS: Reticulocytes Absolute 0.18 B/L (32.2-175.7)
[2022-05-15 07:56] LABS: Immature Reticulocyte Fraction 47.6 % (3.0-15.9); Reticulocyte Hemoglobin Conten 29.4 pg (28.2-35.7); Reticulocyte Percent 6.87 % (0.7-4.3)
[2022-05-15 08:03] LABS: Platelet Estimate Adequate (Adequate)
[2022-05-15 08:04] LABS: Sickle Cells 2+ (NORMAL); Target Cells 2+ (NORMAL)
[2022-05-15 08:05] LABS: Anisocytosis 2+ (NORMAL); Hypochromasia 1+ (NORMAL); Poikilocytosis 1+ (NORMAL); Schistocytes None Seen (NORMAL)
[2022-05-15] MEDS: CEFDINIR 300 MG CAPSULE PO ×2 (08:49→20:25)
[2022-05-15] MEDS: methADONE HCL (*CRX) 10 MG TABLET PO ×3 (08:50→20:26)
[2022-05-15] MEDS: FOLIC ACID 1 MG TABLET PO (08:50)
[2022-05-15] MEDS: HYDROXYUREA (*CHEMO) 500 MG CAPSULE PO (08:50)
[2022-05-15] MEDS: guaiFENesin 12 HR 600 MG TABCR 1200 MG PO ×2 (08:50→20:25)
--- NOTE | 2022-05-15 11:19 | PM.IMPN ---
Progress Note: A&P Assessment and Plan (1) Sickle cell anemia with crisis: Code(s): D57.00 - Hb-SS disease with crisis, unspecified Status: Acute Assessment and Plan: -continue with hydroxyurea -continue with the methadone -continue with analgesics. -continue with folic acid. -improved. (2) Hx of pulmonary embolus: Code(s): Z86.711 - Personal history of pulmonary embolism Status: Acute Assessment and Plan: continue coumadin (3) COVID-19: Code(s): U07.1 - COVID-19 Status: Acute Assessment and Plan: -supportive care. -the patient will be on contact and droplet isolation. -this may be the cause of his sickle cell crisis pain. (4) Chronic pain syndrome: Code(s): G89.4 - Chronic pain syndrome Status: Chronic Assessment and Plan: -continue with home medications -the patient is on methadone as a home medication. (5) Pneumonia: Qualifiers: Laterality: right Lung location: lower lobe of lung Pneumonia type: due to unspecified organism Qualified Code(s): J18.9 - Pneumonia, unspecified organism Code(s): J18.9 - Pneumonia, unspecified organism Status: Acute Assessment and Plan: Antibiotics Will be completed on 05/16/22 Plan Likely discharge tomorrow Subjective Date/time seen: 05/15/22 11:19 Pain is better. Respiratory status is at baseline. Exam Narrative: Patient is comfortable, NAD HEENT: eyes are clear and none icteric LUNGS: normal respiratory effort ABD: not distended Lower extremities: no edema SKIN: nonjaundiced Neuro: grossly intact. Objective Data Vital Signs Vital Signs: Vital Signs - 24 hr 05/14/22 14:00 05/14/22 21:16 05/14/22 20:00 Temperature 97.8 F 97.7 F Pulse Rate 89 84 Respiratory Rate 16 14 Blood Pressure 116/79 118/66 Pulse Oximetry 96 94 Oxygen Delivery Room Air 05/15/22 06:00 05/15/22 08:00 Temperature 96.9 F L Pulse Rate 91 Respiratory Rate 14 Blood Pressure 140/82 Pulse Oximetry 93 Oxygen Delivery Room Air Intake/Output Intake/Output: Intake & Output 05/12/22 05/13/22 05/14/22 05/15/22 23:59 23:59 23:59 23:59 Intake Total 4660 4820 2480 834 Output Total 1900 4050 2300 2600 Balance 2760 948 180 -0723 Meds/Results Medications: Active Medications Generic Name Dose Route Start Last Admin Trade Name Freq PRN Reason Stop Dose Admin Cefdinir 300 mg 05/11/22 11:40 05/15/22 08:49 Cefdinir 300 Mg Capsule PO 05/16/22 11:39 300 mg Q12HR CHRISTOPHER Administration Diphenhydramine HCl 25 mg 05/08/22 18:13 05/14/22 22:25 Diphenhydramine Hcl Inj 50 Mg/Ml Vial IV PUSH 25 mg Q4H PRN Administration Itching Folic Acid 1 mg 05/09/22 09:00 05/15/22 08:50 Folic Acid 1 Mg Tablet PO 1 mg DAILY CHRISTOPHER Administration Guaifenesin 1,200 mg 05/10/22 21:00 05/15/22 08:50 Guaifenesin 12 Hr 600 Mg Tabcr PO 1,200 mg Q12HR CHRISTOPHER Administration Guaifenesin/Dextromethorphan 10 ml 05/10/22 22:13 05/12/22 10:18 Guaifenesin/Dextromethorphan 10 Ml Udc PO 10 ml Q4H PRN Administration Cough Hydromorphone HCl 3 mg 05/08/22 18:14 05/15/22 08:52 Hydromorphone Hcl Inj (*Crx) 1 Mg/Ml Syr IV PUSH 3 mg Q3H PRN Administration Pain Rated 7-10 Hydroxyurea 500 mg 05/09/22 09:00 05/15/22 08:50 Hydroxyurea (*Chemo) 500 Mg Capsule PO 500 mg QAM CHRISTOPHER Administration Methadone HCl 10 mg 05/12/22 09:00 05/15/22 08:50 Methadone Hcl (*Crx) 10 Mg Tablet PO 10 mg 0900,1700,2100 CHRISTOPHER Administration Oxycodone/Acetaminophen 1 tab 05/08/22 22:18 05/12/22 02:46 Oxycodone/Acetaminophen (*Crx) 10-325 Mg Tablet PO 1 tab BID PRN Administration Pain, Moderate 4-6 Phenol 1 spray 05/13/22 17:31 Phenol/Sod Pheno [place] (*Bkc) MUCOUS MEM PRN PRN Sore Throat Warfarin Sodium 6 mg 05/14/22 17:00 05/14/22 17:30 Warfarin (*Renatokc) 3 Mg Tablet PO 6 mg DAILY@1
[2022-05-15 13:52] VITALS: BP 112/76; PULSE 80; RESP 14; TEMP 36.3; O2SAT 97
[2022-05-15 20:00] VITALS: PULSE 86; RESP 18; O2SAT 97
[2022-05-15 22:00] VITALS: BP 123/73; PULSE 86; RESP 18; TEMP 36.6; O2SAT 97
[2022-05-15] MEDS: diphenhydrAMINE HCl INJ 50 MG/ML VIAL 25 MG IV PUSH (23:34)
[2022-05-16] MEDS: HYDROmorphone HCL INJ (*CRX) 1 MG/ML SYR 3 MG IV PUSH ×3 (03:31→11:13)
[2022-05-16 06:00] VITALS: BP 114/85; PULSE 82; RESP 16; TEMP 36.4; O2SAT 95
[2022-05-16] MEDS: CEFDINIR 300 MG CAPSULE PO (09:53)
[2022-05-16] MEDS: guaiFENesin 12 HR 600 MG TABCR 1200 MG PO ×2 (09:53→21:20)
[2022-05-16] MEDS: HYDROXYUREA (*CHEMO) 500 MG CAPSULE PO (09:53)
[2022-05-16] MEDS: methADONE HCL (*CRX) 10 MG TABLET PO ×3 (09:53→21:20)
[2022-05-16] MEDS: FOLIC ACID 1 MG TABLET PO (09:53)
[2022-05-16 10:48] LABS: Basophils Percent Auto 0.4 % (0.2-1.2); Eosinophils Absolute Auto 0.5 K/mm3 (0-0.3); Eosinophils Percent Auto 4.1 % (0-4.4); Hematocrit 24.5 % (42.0-52.0); Hemoglobin 8.8 g/dL (14.0-18.0); Immature Granulocyte Absolute 0.04 K/mm3 (0.00-0.031); Immature Granulocyte Percent A 0.4 % (0-0.5); Lymphocytes Absolute Auto 3.46 K/mm3 (0.9-3.2); Lymphocytes Percent Auto 31.5 % (18.3-44.2); Mean Corpuscular HGB Conc 35.9 g/dl (32-36); Mean Corpuscular Hemoglobin 31.8 pg (26-34); Mean Corpuscular Volume 88.4 fl (80-100); Mean Platelet Volume 11.5 fl (7.4-10.4); Monocytes Percent Auto 9.4 % (2.6-8.5); Neutrophils Percent Auto 54.2 % (45.5-73.1); Nucleated Red Blood Cells Absolute Auto 0.2 K/mm3 (0.0-0.012); Nucleated Red Blood Cells Perc 1.7 % (0.0-0.2); Platelet Count Result 350 k/mm3 (150-375); Red Blood Count 2.77 M/mm3 (4.6-6.20); Red Cell Distribution Width 16.5 % (11.5-14.5)
[2022-05-16 10:56] LABS: Immature Reticulocyte Fraction 46.7 % (3.0-15.9); Reticulocyte Hemoglobin Conten 29.6 pg (28.2-35.7); Reticulocyte Percent 7.99 % (0.7-4.3); Reticulocytes Absolute 0.21 B/L (32.2-175.7)
[2022-05-16 11:09] LABS: Alanine Aminotransferase 24 U/L (6-50); Albumin Level 3.9 g/dL (3.5-5.1); Alkaline Phosphatase 69 U/L (38-126); Anion Gap 6 mmol/L (8-16); Aspartate Amino Transferase 38 U/L (17-59); Bilirubin,Total 1.5 mg/dL (0.2-1.3); Blood Urea Nitrogen 7 mg/dL (9-20); Calcium 8.5 mg/dL (8.4-10.2); Carbon Dioxide 26 mmol/L (22-30); Chloride 109 mmol/L (98-107); Estimated CRCL calculation 163 ml/min; Estimated Glomerular Filt Rate > 60; Glucose 110 mg/dL (65-110); Magnesium 2.3 mg/dL (1.6-2.3); Potassium 3.7 mmol/L (3.4-5.0); Sodium 141 mmol/L (137-145)
[2022-05-16 11:13] LABS: Platelet Estimate Adequate (Adequate)
[2022-05-16 11:17] LABS: Anisocytosis 2+ (NORMAL); Ovalocytes 2+ (NORMAL); Sickle Cells 2+ (NORMAL)
[2022-05-16 11:18] LABS: Macrocytosis 1+ (NORMAL); Schistocytes None Seen (NORMAL); Spherocytes 1+ (NORMAL)
[2022-05-16 11:31] LABS: Lactate Dehydrogenase 402 U/L (120-246)
--- NOTE | 2022-05-16 11:54 | PCNWS ---
Weekly nutritional screen. Patient is tolerating current diet with adequate intake. No weight loss reported. No nutritional needs at this time.
--- NOTE | 2022-05-16 13:04 | PM.IMPN ---
Progress Note: A&P Assessment and Plan (1) Sickle cell anemia with crisis: Code(s): D57.00 - Hb-SS disease with crisis, unspecified Status: Acute Assessment and Plan: Pain about the same. Not on IV fluids now. -continue with hydroxyurea -continue with the methadone -continue with analgesics but begin to wean back to his home oxycodone -continue with folic acid. -improved. (2) Hx of pulmonary embolus: Code(s): Z86.711 - Personal history of pulmonary embolism Status: Acute Assessment and Plan: INR elevated yesterday. Repeat INR today. Coumadin on hold for now (3) COVID-19: Code(s): U07.1 - COVID-19 Status: Acute Assessment and Plan: -Diagnosed on 05/08. -the patient will be on contact and droplet isolation. -this may be the cause of his sickle cell crisis pain. -CT chest showing only subtle ground glass opacities in the RUL. -remains on room air. Continue supportive care. (4) Chronic pain syndrome: Code(s): G89.4 - Chronic pain syndrome Status: Chronic Assessment and Plan: -continue with home medications -the patient is on methadone as a home medication. (5) Pneumonia: Qualifiers: Laterality: right Lung location: lower lobe of lung Pneumonia type: due to unspecified organism Qualified Code(s): J18.9 - Pneumonia, unspecified organism Code(s): J18.9 - Pneumonia, unspecified organism Status: Acute Assessment and Plan: Antibiotics that were completed on 05/16/22 Plan Likely discharge tomorrow Subjective Date/time seen: 05/16/22 13:04 Interval history: 37yo male with sickle cell and PE here for chest pain. Assuming care. Chart reviewed. Patient still having 7/10 pain diffusely. Mostly in his legs. He has not been eating much. No nausea but just lack of appetite. He is still requiring the Dilaudid IV every 3-4 hours. He remains on methadone. Exam Narrative: AF 114/85 82 16 95% ra Gen - NARD Chest - CTA bilaterally, nml RR CV - RRR S1/S2 Abd - Soft, NT/ND, Positive BS Ext - No pedal edema Psych - Nml mood and affect Skin - Warm and dry Objective Data Vital Signs Vital Signs: Vital Signs - 24 hr 05/15/22 13:52 05/15/22 22:00 05/15/22 20:00 Temperature 97.3 F L 97.8 F Pulse Rate 80 86 86 Respiratory Rate 14 18 18 Blood Pressure 112/76 123/73 Pulse Oximetry 97 97 97 Oxygen Delivery Room Air 05/16/22 06:00 05/16/22 08:00 Temperature 97.5 F L Pulse Rate 82 Respiratory Rate 16 Blood Pressure 114/85 Pulse Oximetry 95 Oxygen Delivery Room Air Intake/Output Intake/Output: Intake & Output 05/13/22 05/14/22 05/15/22 05/16/22 23:59 23:59 23:59 23:59 Intake Total 4820 2480 2274 880 Output Total 4050 2300 2900 Balance 770 180 -626 880 Meds/Results Medications: Active Medications Generic Name Dose Route Start Last Admin Trade Name Freq PRN Reason Stop Dose Admin Diphenhydramine HCl 25 mg 05/08/22 18:13 05/15/22 23:34 Diphenhydramine Hcl Inj 50 Mg/Ml Vial IV PUSH 25 mg Q4H PRN Administration Itching Folic Acid 1 mg 05/09/22 09:00 05/16/22 09:53 Folic Acid 1 Mg Tablet PO 1 mg DAILY CHRISTOPHER Administration Guaifenesin 1,200 mg 05/10/22 21:00 05/16/22 09:53 Guaifenesin 12 Hr 600 Mg Tabcr PO 1,200 mg Q12HR CHRISTOPHER Administration Guaifenesin/Dextromethorphan 10 ml 05/10/22 22:13 05/12/22 10:18 Guaifenesin/Dextromethorphan 10 Ml Udc PO 10 ml Q4H PRN Administration Cough Hydromorphone HCl 3 mg 05/08/22 18:14 05/16/22 11:13 Hydromorphone Hcl Inj (*Crx) 1 Mg/Ml Syr IV PUSH 3 mg Q3H PRN Administration Pain Rated 7-10 Hydroxyurea 500 mg 05/09/22 09:00 05/16/22 09:53 Hydroxyurea (*Chemo) 500 Mg Capsule PO 500 mg QAM CHRISTOPHER Administration Methadone HCl 10 mg 05/12/22 09:00 05/16/22 09:53 Methadone Hcl (*Crx) 10 Mg Tablet PO 10 mg 0900,1700,2100 CHRISTOPHER Admi
[2022-05-16 13:27] LABS: INR 3.2
[2022-05-16 14:00] VITALS: BP 124/71; PULSE 79; RESP 18; TEMP 36.3; O2SAT 96
[2022-05-16] MEDS: HYDROmorphone HCL INJ (*CRX) 1 MG/ML SYR 2 MG IV PUSH ×3 (15:19→21:20)
[2022-05-16] MEDS: WARFARIN (*PBKC) 3 MG TABLET 6 MG PO (17:29)
[2022-05-16] MEDS: diphenhydrAMINE HCl INJ 50 MG/ML VIAL 25 MG IV PUSH (21:22)
[2022-05-16 22:00] VITALS: BP 144/71; PULSE 89; RESP 16; TEMP 36.3; O2SAT 95
[2022-05-17] MEDS: HYDROmorphone HCL INJ (*CRX) 1 MG/ML SYR 2 MG IV PUSH ×6 (00:13→16:30)
[2022-05-17 06:00] VITALS: BP 142/46; PULSE 81; RESP 16; TEMP 36.2; O2SAT 96
[2022-05-17 07:01] LABS: Alanine Aminotransferase 24 U/L (6-50); Albumin Level 4.1 g/dL (3.5-5.1); Alkaline Phosphatase 60 U/L (38-126); Anion Gap 8 mmol/L (8-16); Aspartate Amino Transferase 55 U/L (17-59); Bilirubin,Total 1.8 mg/dL (0.2-1.3); Blood Urea Nitrogen 8 mg/dL (9-20); Calcium 8.5 mg/dL (8.4-10.2); Carbon Dioxide 22 mmol/L (22-30); Chloride 109 mmol/L (98-107); Estimated CRCL calculation 163 ml/min; Estimated Glomerular Filt Rate > 60; Glucose 115 mg/dL (65-110); Lactate Dehydrogenase 547 U/L (120-246); Magnesium 2.3 mg/dL (1.6-2.3); Sodium 139 mmol/L (137-145)
[2022-05-17 09:12] LABS: Basophils Percent Auto 0.4 % (0.2-1.2); Eosinophils Absolute Auto 0.4 K/mm3 (0-0.3); Eosinophils Percent Auto 3.3 % (0-4.4); Hematocrit 26.4 % (42.0-52.0); Hemoglobin 9.4 g/dL (14.0-18.0); Immature Granulocyte Absolute 0.05 K/mm3 (0.00-0.031); Immature Granulocyte Percent A 0.4 % (0-0.5); Immature Platelet Fraction Pct 6.3 % (0.9-11.2); Immature Reticulocyte Fraction 42.2 % (3.0-15.9); Lymphocytes Absolute Auto 3.85 K/mm3 (0.9-3.2); Lymphocytes Percent Auto 33.8 % (18.3-44.2); Mean Corpuscular HGB Conc 35.6 g/dl (32-36); Mean Corpuscular Hemoglobin 31.8 pg (26-34); Mean Corpuscular Volume 89.2 fl (80-100); Mean Platelet Volume 10.8 fl (7.4-10.4); Monocytes Absolute Auto 0.9 K/mm3 (0.1-0.6); Monocytes Percent Auto 8.2 % (2.6-8.5); Neutrophils Absolute Auto 6.1 K/mm3 (1.3-6.7); Neutrophils Percent Auto 53.9 % (45.5-73.1); Nucleated Red Blood Cells Absolute Auto 0.2 K/mm3 (0.0-0.012); Nucleated Red Blood Cells Perc 1.3 % (0.0-0.2); Platelet Count Result 408 k/mm3 (150-375); Red Blood Count 2.96 M/mm3 (4.6-6.20); Reticulocyte Percent 9.76 % (0.7-4.3); White Blood Count 11.4 K/mm3 (4.5-10.0)
[2022-05-17 09:18] LABS: INR 3.2; Prothrombin Time 31.5 Seconds (11.1-14.7)
[2022-05-17 09:45] LABS: Schistocytes None Seen (NORMAL); Sickle Cells 1+ (NORMAL); Target Cells 2+ (NORMAL)
[2022-05-17] MEDS: guaiFENesin 12 HR 600 MG TABCR 1200 MG PO (10:09)
[2022-05-17] MEDS: diphenhydrAMINE HCl INJ 50 MG/ML VIAL 25 MG IV PUSH (10:10)
[2022-05-17] MEDS: methADONE HCL (*CRX) 10 MG TABLET PO ×2 (10:10→16:30)
[2022-05-17] MEDS: HYDROXYUREA (*CHEMO) 500 MG CAPSULE PO (10:10)
[2022-05-17] MEDS: FOLIC ACID 1 MG TABLET PO (10:10)
[2022-05-17 14:00] VITALS: BP 125/72; PULSE 84; RESP 18; TEMP 36.3; O2SAT 96
[2022-05-17] MEDS: WARFARIN (*PBKC) 3 MG TABLET 6 MG PO (16:32)
--- NOTE | 2022-05-17 16:36 | PM.DS ---
DS: Admitting Diagnosis Discharge Date 05/17/22 Admitting Diagnosis Chest pain DS: Discharge Diagnosis Discharge Diagnosis (1) Sickle cell anemia with crisis: Code(s): D57.00 - Hb-SS disease with crisis, unspecified Status: Acute (2) Hx of pulmonary embolus: Code(s): Z86.711 - Personal history of pulmonary embolism Status: Acute (3) COVID-19: Code(s): U07.1 - COVID-19 Status: Acute (4) Chronic pain syndrome: Code(s): G89.4 - Chronic pain syndrome Status: Chronic (5) Pneumonia: Qualifiers: Laterality: right Lung location: lower lobe of lung Pneumonia type: due to unspecified organism Qualified Code(s): J18.9 - Pneumonia, unspecified organism Code(s): J18.9 - Pneumonia, unspecified organism Status: Acute DS: Summary Hospital Course Reason for hospitalization: 37yo male with sickle cell and PE here for chest pain. Please see H&P for details Hospital Course: Patient presents with complaints of chest, back and leg pain. He also with subjective fevers and chills. WBC was mildly elevated but stable. Hgb low but stable in the 8-9 range. On Coumadin and monitored with daily INR. LDH 300-500 range. Hematology was consulted. He was treated with IV narcotics. We continued his methadone. CXR showing chronic findings. CT chest showing subtle ground glass opacities RUL. He was treated with a course of abx while hospitalized. He was COVID positive on admission but no oxygen requirement. Not had COVID vaccines. He was educated about keeping up to date on all vaccines including COVID. His pain improved. Pain mostly in legs and arms now. INR became elevated so Coumadin was held. INR improved so Coumadin resumed at lower dose. Per patient, he normally takes 12mg at home so dose cut back to 10mg. He overall did well and was able to be discharged home on 05/17/22 Status at Discharge Cognitive/behavioral status at discharge: stable Time Spent with Patient Time attestation: Total time spent providing and/or coordinating discharge services: 36 minutes Time spent: Greater than 30 minutes Exam Narrative: AF 142/46 81 16 96% ra Gen - NARD Chest - CTA bilaterally, nml RR CV - RRR S1/S2 Abd - Soft, NT/ND, Positive BS Ext - No pedal edema Psych - Nml mood and affect Skin - Warm and dry DS: Data Data Completed and Pending Labs on day of discharge: Labs from last 24 hours 05/17/22 05/17/22 05/17/22 09:00 09:00 05:47 WBC 11.4 H RBC 2.96 L Hgb 9.4 L Hct 26.4 L MCV 89.2 MCH 31.8 MCHC 35.6 RDW 17.0 H Plt Count 408 H MPV 10.8 H Immature Gran % (Auto) 0.4 Neut % (Auto) 53.9 Lymph % (Auto) 33.8 [place] % (Auto) 8.2 Eos % (Auto) 3.3 Baso % (Auto) 0.4 Lymph # (Auto) 3.85 H [place] # (Auto) 0.9 H Eos # (Auto) 0.4 H Baso # (Auto) 0.0 Abs Immat Gran (auto) 0.05 H Absolute Neuts (auto) 6.1 Absolute Nucleated RBC 0.2 H Nucleated RBC % 1.3 H Platelet Estimate Slightly increased % Immature Plt Fraction 6.3 Sickle Cells 1+ Target Cells 2+ Schistocytes None seen Absolute Retic 0.30 L Percent Retic 9.76 H Immature Retic Fraction 42.2 H Retic Hgb Content 31.0 PT 31.5 H INR 3.2 Sodium 139 Potassium 4.0 Chloride 109 H Carbon Dioxide 22 Anion Gap 8 BUN 8 L Creatinine 0.60 L Estim Creat Clear Calc 163 Estimated GFR > 60 Glucose 115 H Calcium 8.5 Magnesium 2.3 Total Bilirubin 1.8 H AST 55 ALT 24 Alkaline Phosphatase 60 Lactate Dehydrogenase 547 H Total Protein 8.0 Albumin 4.1 Discharge Plan Discharge Attending physician on discharge: Juvencio Hammond Consulting providers: Leti Beaulieu ; Jone Marks Discharging Clinician: Juvencio Hammond Anticipated Discharge Date/Time: 05/17/22 16:49 Patient Disposition: Home, Self-Care Activity: as tolerated
== END 2022-05-17 18:13 | disposition home or self-care (01) | DRG 662 ==
LOC: ANHED 17:37 → ANH3MEDSUR 17:56
PROVIDERS: Family Medicine; Nurse Practitioner; Admitting Provider Internal Medicine; Emergency Provider Physician Assistant; PCP Internal Medicine Hematology & Oncology; Visit Provider Internal Medicine
DX: D57.00 Hb-SS disease with crisis, unspecified (principal); U07.1 COVID-19; J18.9 Pneumonia, unspecified organism; J99 Respiratory disorders in diseases classified elsewhere; G89.4 Chronic pain syndrome; F11.90 Opioid use, unspecified, uncomplicated; Z79.01 Long term (current) use of anticoagulants; Z86.718 Personal history of other venous thrombosis and embolism; Z86.711 Personal history of pulmonary embolism; Z91.14 Patient's other noncompliance with medication regimen; Z28.310 Unvaccinated for COVID-19
CPT/HCPCS: 36415; 71046; 71250; 80053; 83605; 83615; 83735; 84484; 85025; 85046; 85055; 85610; 85730; 87636; 93005; 96361; 96365; 96372; 96374; 96375; 96376; 99285; A9270; G0378; G0379; J0131; J1170; J1200; J1650; J7030

== ENCOUNTER 2022-07-17 14:01 | Outpatient (CLI) | payer OTHER, SELFPAY ==
[2022-07-17 14:28] LABS: Basophils Percent Auto 0.4 % (0.2-1.2); Eosinophils Absolute Auto 0.3 K/mm3 (0-0.3); Hematocrit 28.7 % (42.0-52.0); Hemoglobin 10.3 g/dL (14.0-18.0); Immature Granulocyte Absolute 0.03 K/mm3 (0.00-0.031); Immature Granulocyte Percent A 0.3 % (0-0.5); Lymphocytes Absolute Auto 3.87 K/mm3 (0.9-3.2); Lymphocytes Percent Auto 40.4 % (18.3-44.2); Mean Corpuscular HGB Conc 35.9 g/dl (32-36); Mean Corpuscular Hemoglobin 31.7 pg (26-34); Mean Corpuscular Volume 88.3 fl (80-100); Mean Platelet Volume 9.9 fl (7.4-10.4); Monocytes Absolute Auto 0.9 K/mm3 (0.1-0.6); Neutrophils Absolute Auto 4.5 K/mm3 (1.3-6.7); Neutrophils Percent Auto 46.9 % (45.5-73.1); Nucleated Red Blood Cells Perc 0.2 % (0.0-0.2); Platelet Count Result 332 k/mm3 (150-375); Red Blood Count 3.25 M/mm3 (4.6-6.20); Red Cell Distribution Width 13.7 % (11.5-14.5); White Blood Count 9.6 K/mm3 (4.5-10.0)
[2022-07-17 14:36] LABS: Anisocytosis 1+ (NORMAL); Giant Platelets Present; Platelet Estimate Adequate (Adequate); Schistocytes None Seen (NORMAL); Target Cells 2+ (NORMAL)
[2022-07-17 14:37] LABS: Poikilocytosis 2+ (NORMAL)
[2022-07-17 17:02] LABS: Alanine Aminotransferase 26 U/L (6-50); Albumin Level 4.7 g/dL (3.5-5.1); Alkaline Phosphatase 82 U/L (38-126); Anion Gap 12 mmol/L (8-16); Aspartate Amino Transferase 35 U/L (17-59); Bilirubin,Total 1.4 mg/dL (0.2-1.3); Blood Urea Nitrogen 7 mg/dL (9-20); Calcium 8.5 mg/dL (8.4-10.2); Carbon Dioxide 22 mmol/L (22-30); Chloride 106 mmol/L (98-107); Estimated Glomerular Filt Rate > 60; Glucose 138 mg/dL (65-110); Potassium 3.8 mmol/L (3.4-5.0); Sodium 140 mmol/L (137-145)
[2022-07-22 13:50] LABS: Amphetamines NEGATIVE ng/mL (<500); Barbiturates NEGATIVE ng/mL (<300); Benzodiazepines NEGATIVE ng/mL (<100); Cocaine Metabolite NEGATIVE ng/mL (<100); EDDP 10000 ng/mL (<100); Methadone 2500 ng/mL (<100); Methadone Metabolite POSITIVE ng/mL (<100); Opiates NEGATIVE ng/mL (<100); Oxidant NEGATIVE mcg/mL (<200); pH 6.2 (4.5-9.0)
== END 2022-07-17 14:02 | disposition home or self-care (01) ==
LOC: ANHLAB 14:05
PROVIDERS: Visit Provider Internal Medicine Hematology & Oncology
DX: D57.20 Sickle-cell/Hb-C disease without crisis (principal)
CPT/HCPCS: 36415; 80053; 80299; 85025

== ENCOUNTER 2022-09-17 12:55 | Inpatient (IN) | payer OTHER, SELFPAY ==
--- NOTE | ~2022-09-17 | XR_ITS ---
EXAMINATION: XR chest 2V DATE: 09/17/2022 15:56 INDICATION: Chest pain TECHNIQUE: AP and lateral views of the chest are obtained. COMPARISON: 05/14/2022 FINDINGS: There are areas of chronic scarring of the lung bases. No acute airspace opacities are iden tified. No pleural effusion or pneumothorax. The cardiomediastinal silhouette is normal. There is chr onic mild vertebral body height loss at multiple levels in the thoracic spine, consistent with sickle cell disease related osteonecrosis. IMPRESSION: 1. Chronic scarring of the lung bases without acute cardiopulmonary abnormality. Reviewed, dictated and finalized at location F. IMPRESSION: 1. Chronic scarring of the lung bases without acute cardiopulmonary abnormality .
--- NOTE | ~2022-09-17 | XR_ITS ---
XR chest 2V DATE: 09/19/2022 09:25 INDICATION: Chest pain. Leukocytosis, sickle cell crisis. TECHNIQUE: AP and lateral views COMPARISON: 09/17/2022 AP and lateral views FINDINGS: There are prominent bibasilar atelectasis is noted. Normal heart size. No hilar or mediastinal enlargement is evident. No pulmonary vascular congestion o r pneumothorax. No apparent pleural effusion. IMPRESSION: Prominent bibasilar atelectasis, increased since 09/17/2022 Reviewed, dictated and finalized at location []
[2022-09-17 13:07] VITALS: BP 120/71; PULSE 87; RESP 18; TEMP 36.6; O2SAT 98
[2022-09-17 14:51] LABS: Basophils Absolute Auto 0.1 K/mm3 (0.0-0.1); Basophils Percent Auto 0.8 % (0.2-1.2); Eosinophils Absolute Auto 0.2 K/mm3 (0-0.3); Eosinophils Percent Auto 2.3 % (0-4.4); Hematocrit 29.1 % (42.0-52.0); Hemoglobin 10.4 g/dL (14.0-18.0); Immature Granulocyte Absolute 0.29 K/mm3 (0.00-0.031); Immature Granulocyte Percent A 2.8 % (0-0.5); Immature Platelet Fraction Pct 5.5 % (0.9-11.2); Immature Reticulocyte Fraction 23.9 % (3.0-15.9); Lymphocytes Absolute Auto 2.73 K/mm3 (0.9-3.2); Lymphocytes Percent Auto 25.9 % (18.3-44.2); Mean Corpuscular HGB Conc 35.7 g/dl (32-36); Mean Corpuscular Volume 86.9 fl (80-100); Mean Platelet Volume 10.4 fl (7.4-10.4); Monocytes Absolute Auto 1.1 K/mm3 (0.1-0.6); Neutrophils Absolute Auto 6.2 K/mm3 (1.3-6.7); Neutrophils Percent Auto 58.2 % (45.5-73.1); Nucleated Red Blood Cells Perc 0.4 % (0.0-0.2); Platelet Count Result 321 k/mm3 (150-375); Red Blood Count 3.35 M/mm3 (4.6-6.20); Red Cell Distribution Width 14.3 % (11.5-14.5); Reticulocyte Hemoglobin Conten 30.4 pg (28.2-35.7); Reticulocyte Percent 5.34 % (0.7-4.3); Reticulocytes Absolute 0.18 M/mm3 (0.02-0.1); White Blood Count 10.5 K/mm3 (4.5-10.0)
[2022-09-17 15:00] LABS: Alanine Aminotransferase 34 U/L (6-50); Albumin Level 4.5 g/dL (3.5-5.1); Alkaline Phosphatase 80 U/L (38-126); Anion Gap 5 mmol/L (8-16); Aspartate Amino Transferase 45 U/L (17-59); Bilirubin,Total 1.6 mg/dL (0.2-1.3); Blood Urea Nitrogen 7 mg/dL (9-20); Calcium 8.6 mg/dL (8.4-10.2); Carbon Dioxide 28 mmol/L (22-30); Chloride 107 mmol/L (98-107); Estimated CRCL calculation 126 ml/min; Estimated Glomerular Filt Rate > 60; Glucose 99 mg/dL (65-110); Lactate Dehydrogenase 246 U/L (120-246); Potassium 4.1 mmol/L (3.4-5.0); Sodium 140 mmol/L (137-145)
--- NOTE | 2022-09-17 15:27 | ECG_ITS ---
Measurements Intervals [place] Rate: 71 P: 35 OK: 182 QRS: 24 QRSD: 95 T: 5 QT: 418 QTc: 455 Interpretive Statements SINUS RHYTHM COMPARED TO ECG 05/08/2022 12:45:18 SINUS RHYTHM NOW PRESENT Electronically Signed On 09-18-2022 14:06:49 CDT by Alana Matias M.D.
--- NOTE | 2022-09-17 15:27 | ED.GENADULT ---
HPI - General Adult General Chief complaint: Unspecified Stated complaint: sickle cell disease with pain that began today Time Seen by Provider: 09/17/22 14:54 History of Present Illness HPI narrative: 37-year-old male with history of sickle cell disease presented to the emergency department complaining of a sickle cell pain. Patient states that he typically just has leg pain with his crises but he is having right neck arm chest and leg pain with this crisis. Patient states he has not been drinking enough water over the last few days. Patient does have some associated chest pain. Patient denies any associated shortness of breath. Related Data Home Medications Medication Instructions Recorded Confirmed folic acid 1 mg tablet 1 mg PO DAILY 02/16/19 05/08/22 methadone 10 mg tablet 10 mg PO TID 08/22/20 05/08/22 oxycodone-acetaminophen 10 mg-325 1 tablet PO BID PRN Pain, Moderate 08/22/20 05/08/22 mg tablet Allergies Allergy/AdvReac Type Severity Reaction Status Date / Time Fish Containing Products Allergy Mild Itching Verified 09/17/22 12:56 Review of Systems Review of Systems: All systems reviewed & are unremarkable except as noted in HPI and below PMFSH Past Medical History Medical History Acute chest syndrome Chronic anticoagulation Due to history of DVT and pulmonary embolism. Chronic narcotic use On methadone with oxycodone for chronic pain related to sickle cell disease. 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 Deep venous thrombosis Noncompliance History of noncompliance with anticoagulation and hydroxyurea. Pulmonary embolism Sickle cell disease, type SC Surgical History Surgical History History of hand surgery Tendon surgery on right 5th finger. Family History Family History Grandparent Diabetes mellitus Acute myocardial infarction Sibling Asthma Sibling Asthma Mother Hypertension Sickle cell trait Son Sickle cell trait Daughter Sickle cell trait Grandparent No problems noted. Other Diabetes mellitus Father Sickle cell trait Social History Social History Social History: The patient lives in [place] with his family. He is on disability due to sickle cell disease and chronic pain. He is a lifelong nonsmoker and denies alcohol and illicit substance abuse. He uses marijuana to help with pain. He designates his friend, Keyla Luther, as his surrogate decision maker and he wishes to be a full code. Smoking status: Never smoker Alcohol intake: never Substance use: never Substance use type: marijuana Lack of Transportation: No Lack of Food: Never True Current Housing: I Have Housing Concerned About Future Housing: No Difficulty Paying Gas/Electric Bills: No Difficulty Paying for Meds: No Currently Unemployed: No Education: High School Diploma/GED Difficulty w/ Childcare or Family Care: No Living arrangements: with family Occupation/Education: other Spiritual care concerns: No Agree to blood products: Yes Exam Narrative: APPEARANCE: Uncomfortable appearing HEAD: normocephalic, atraumatic. EYES: PERRLA/EOMI, conjunctivae clear. NOSE: Normal no drainage NECK: Supple. No adenopathy, no masses. RESPIRATORY: Airway patent, respirations nonlabored. Clear to auscultation bilaterally, no rales, rhonchi, wheezing. CARDIOVASCULAR: Regular rate and rhythm without murmurs rubs or gallops. ABDOMINAL: Soft, nontender, nondistended, normal bowel sounds MUSCULOSKELETAL: Moves all extremities. Strength/ROM intact, No edema, No calf tenderness. NEURO: Alert. Cranial nerves II through XII intact. Grossly intact SKIN: Warm, dry. Normal Color Course Course Emergency Course: 28-year-old male with history of s
[2022-09-17 15:35] LABS: Platelet Estimate Adequate (Adequate); Poikilocytosis 3+ (NORMAL); Sickle Cells 3+ (NORMAL)
[2022-09-17 15:36] LABS: Stomatocytes 1+ (NORMAL); Target Cells 3+ (NORMAL); Tear Drop Cells 2+ (NORMAL)
[2022-09-17 15:37] LABS: Schistocytes 2+ (NORMAL)
[2022-09-17] MEDS: SODIUM CHLORIDE 0.9% IV 1,000 ML 999 ML IV CONT (16:16)
[2022-09-17] MEDS: HYDROmorphone HCL INJ (*CRX) 1 MG/ML SYR 2 MG IV PUSH (16:16)
[2022-09-17] MEDS: diphenhydrAMINE HCl INJ 50 MG/ML VIAL 25 MG IV PUSH (16:17)
[2022-09-17 16:21] VITALS: BP 114/83; PULSE 71; RESP 18; O2SAT 98
[2022-09-17 19:10] VITALS: BP 122/77; PULSE 71; RESP 15; TEMP 36.8; O2SAT 97
[2022-09-17] MEDS: HYDROmorphone HCL INJ (*CRX) 1 MG/ML SYR IV PUSH ×2 (19:10→23:01)
[2022-09-17] MEDS: SODIUM CHLORIDE 0.9% IV 1,000 ML 125 ML IV CONT (19:21)
[2022-09-17 19:36] VITALS: BP 113/79; PULSE 60; RESP 15; O2SAT 96
[2022-09-17 19:55] VITALS: BP 120/77; PULSE 69; RESP 18; TEMP 36.6; O2SAT 99
[2022-09-17 20:03] VITALS: BMI 30.8
--- NOTE | 2022-09-17 20:12 | ADMGEN ---
This patient, Quan Downing, was admitted to [facility] Surg Room 303-01 at 1999. Patient/family oriented to hospital policies and general routines including ID bracelet, bed and alarms, visiting hours, pain management, procedures, bathroom and other care routines, personal items, smoking policy, room service/diet, and visiting hours. Information on how to activate the Rapid Response Team has been discussed. Patient/Family are encouraged to report perceived risks to care and to ask questions if they do not understand what they are told or what they should do.
[2022-09-17] MEDS: HYDROmorphone HCL INJ (*CRX) 1 MG/ML SYR 0.5 MG IV PUSH (20:31)
--- NOTE | 2022-09-17 21:14 | PM.IMHP ---
H&P: HPI History of Present Illness Date/Time: 09/17/22 21:14 Chief Complaint: Sickle cell crisis. Narrative: This is a 37 yo male with PMHx significant for Sickle cell disease. Patient comes in due to generalized pain x 1 day duration, no fevers, no chills, no cough, no sputum production, no n/v/d. Patient has been in his usual state of health up until this point.Preliminary work up was significant for Retic count of 23% Chest xr : EXAMINATION: XR chest 2V DATE: 09/17/2022 15:56 INDICATION: Chest pain TECHNIQUE: AP and lateral views of the chest are obtained. COMPARISON: 05/14/2022 FINDINGS: There are areas of chronic scarring of the lung bases. No acute airspace opacities are identified. No pleural effusion or pneumothorax. The cardiomediastinal silhouette is normal. There is chronic mild vertebral body height loss at multiple levels in the thoracic spine, consistent with sickle cell disease related osteonecrosis. IMPRESSION: 1. Chronic scarring of the lung bases without acute cardiopulmonary abnormality. Review of Systems Review of Systems: generalized bone pain Constitutional: Constitutional: Denies chills, Denies fatigue, Denies fever(s) and Denies malaise Eyes: Eyes: Denies change in vision ENT: Denies dysphagia and Denies odynophagia Cardiovascular: Cardiovascular: Denies chest pain, Denies leg edema, Denies radiating jaw, neck or arm pain and Denies palpitations Respiratory: Respiratory: Denies cough, Denies excessive phlegm production, Denies pain on inspiration and Denies dyspnea Gastrointestinal: Gastrointestinal: Denies abdominal pain, Denies dyspepsia, Denies heartburn, Denies diarrhea, Denies nausea and Denies vomiting Genitourinary: Genitourinary: Denies dysuria and Denies flank pain Musculoskeletal: Musculoskeletal: Reports myalgias Integumentary/Breasts: Skin/Breast: Denies rash Neurologic: Denies focal weakness and Denies Sensory deficit (Neuro) Psychiatric: Psychiatric: Reports no additional psychiatric complaints and Reports as per HPI Endocrine: Endocrine: Denies cold intolerance, Denies flushing, Denies heat intolerance, Denies polyphagia, Denies polydipsia and Denies palpitations Hematologic/Lymphatic: Hematologic/Lymphatic: Reports no additional hematologic/lymphatic complaints and Reports as per HPI Allergic/Immunologic: Allergic/Immunologic: Reports no additional allergic/immunologic complaints and Reports as per [facility] Past Medical History Medical History Acute chest syndrome Chronic anticoagulation Due to history of DVT and pulmonary embolism. Chronic narcotic use On methadone with oxycodone for chronic pain related to sickle cell disease. 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 Deep venous thrombosis Noncompliance History of noncompliance with anticoagulation and hydroxyurea. Pulmonary embolism Sickle cell disease, type SC Surgical History Surgical History History of hand surgery Tendon surgery on right 5th finger. Family History Family History Grandparent Diabetes mellitus Acute myocardial infarction Sibling Asthma Sibling Asthma Mother Hypertension Sickle cell trait Son Sickle cell trait Daughter Sickle cell trait Grandparent No problems noted. Other Diabetes mellitus Father Sickle cell trait Social History Social History Social History: The patient lives in [place] with his family. He is on disability due to sickle cell disease and chronic pain. He is a lifelong nonsmoker and denies alcohol and illicit substance abuse. He uses marijuana to help with pain. He designates his friend, Keyla Ashkan, as his surrogate decision maker and he wishes to be a full code. Smoking status: Never smoke
[2022-09-17] MEDS: diphenhydrAMINE HCl CAP 25 MG CAPSULE PO (23:02)
[2022-09-18] VITALS (10 sets, daily range): BP systolic 103–127; BP diastolic 60–72; PULSE 99–105; RESP 12–24; TEMP 36.4–37.1; O2SAT 92–98
[2022-09-18] MEDS: diphenhydrAMINE HCl CAP 25 MG CAPSULE 50 MG PO (02:17)
[2022-09-18] MEDS: HYDROmorphone HCL INJ (*CRX) 1 MG/ML SYR 3 MG IV PUSH ×4 (02:18→11:31)
[2022-09-18] MEDS: DEXTROSE 5%/0.45% SOD CHL 1,000 ML 100 ML IV CONT (05:27)
--- NOTE | 2022-09-18 07:38 | PM.IMPN ---
Progress Note: A&P Assessment and Plan (1) Sickle cell pain crisis: Code(s): D57.00 - Hb-SS disease with crisis, unspecified Status: Acute Assessment and Plan: H/O sickle cell disease. Last admission 05/08-05/17/22 Continue LR@100 fluid resuscitation Hydroxyurea 500 mg PO am Continue folic acid 1 mg Continue methadone home dose. continue pain control- patient still with significant pain with Dilaudid 3 mg IV Q3 hours. Start Dilaudid ASPHALT PAVER 0.3 mg basal, 0.1 mg bolus Q15 minutes. Adjust settings for tolerance. Oxygen as needed hemagology/Oncology consulted. (2) Subtherapeutic international normalized ratio (INR): Code(s): R79.1 - Abnormal coagulation profile Status: Acute Assessment and Plan: INR 1.3. He reports missing a few doses prior to admission. Give 12 mg warfarin, which is his long standing dose check INR daily. Adjust dose in 2-3 days if needed. Plan CODE STATUS: FULL CODE Discharge disposition: from home. Independent with ADLs Time Spent With Patient Time with patient: 25 - 35 minutes Subjective Date/time seen: 09/18/22 07:38 Interval history: Patient reports pain all over and in right chest/ribs. It hurts when taking deep breaths. Dilaudid helps with his pain, but does not last. He reports taking Warfarin 12 mg daily at home, but missed about 2 doses prior to admission. Last dose 09/17/22 in the evening. Review of Systems Review of Systems: All systems reviewed & are unremarkable except as noted in HPI and below Exam Narrative: General: Grimacing with movements. Adult male lying in bed. Mental Status/Psych: Sleeping, arouses to voice and oriented x4 with clear speech. Pleasant and cooperative. Skin: warm, dry and intact without rashes or lesions. No open wounds. Good turgor. HEENT: Normocephalic. Sclera is non-icteric. Pupils equal and round. Oral mucosa pink and moist. Neck: No JVD. Heart: S1 and S2 regular rate and rhythm. No murmurs, gallops, or rubs auscultated. Chest: Respirations even and unlabored. Lung sounds are clear to auscultation without wheezes, rhonchi, or rales. Abdomen: Soft, non-distended and non-tender to palpation. Bowel sounds present in all 4 quadrants. No guarding. Extremities: No edema, erythema or calf tenderness. Grossly normal ROM. Neurological: No focal deficits. Sensation intact all extremities Objective Data Vital Signs Vital Signs: Vital Signs - 24 hr 09/17/22 13:07 09/17/22 16:21 09/17/22 19:10 Temperature 97.9 F 98.3 F Pulse Rate 87 71 71 Respiratory Rate 18 18 15 Blood Pressure 120/71 114/83 122/77 Pulse Oximetry 98 98 97 Oxygen Delivery Room Air 09/17/22 19:36 09/17/22 19:55 09/17/22 20:00 Temperature 97.8 F Pulse Rate 60 69 Respiratory Rate 15 18 Blood Pressure 113/79 120/77 Pulse Oximetry 96 99 Oxygen Delivery Room Air 09/18/22 06:00 Temperature 97.6 F Pulse Rate 105 H Respiratory Rate 18 Blood Pressure 112/72 Pulse Oximetry 98 Oxygen Delivery Intake/Output Intake/Output: Intake & Output 09/15/22 09/16/22 09/17/22 09/18/22 23:59 23:59 23:59 23:59 Intake Total 1000 1222 Output Total 800 Balance 1000 422 Meds/Results Medications: Active Medications Generic Name Dose Route Start Last Admin Trade Name Freq PRN Reason Stop Dose Admin Diphenhydramine HCl 50 mg 09/18/22 01:09 09/18/22 02:17 Diphenhydramine Hcl Cap 25 Mg Capsule PO 50 mg Q6H PRN Administration Itching Folic Acid 1 mg 09/18/22 09:00 Folic Acid 1 Mg Tablet PO DAILY CHRISTOPHER Hydromorphone HCl 3 mg 09/18/22 01:08 09/18/22 05:27 Hydromorphone Hcl Inj (*Crx) 1 Mg/Ml Syr IV PUSH 3 mg Q3H PRN Administration Pain Rated 7-10 Hydroxyurea 500 mg 09/18/22 09:00 Hydroxyurea (*Chemo) 500 Mg Capsule PO QAM CHRISTOPHER Dextrose/Sodium Chloride 1,000 mls @ 100 mls/hr 09/18/22 04:05 09/18/22 05:27 Dextrose 5% Sodium Chloride 0.45% IV CONT
[2022-09-18] MEDS: FOLIC ACID 1 MG TABLET PO (08:09)
[2022-09-18] MEDS: HYDROXYUREA (*CHEMO) 500 MG CAPSULE PO (08:09)
[2022-09-18 08:10] LABS: INR 1.3; Prothrombin Time 16.4 Seconds (11.1-14.7)
[2022-09-18] MEDS: methADONE HCL (*CRX) 10 MG TABLET PO ×3 (08:10→20:19)
[2022-09-18] MEDS: LACTATED RINGERS 1,000 ML 100 ML IV CONT ×2 (08:11→19:37)
[2022-09-18] MEDS: HYDROmorphon 0.2MG/ML PCA(*CRX 6 MG/30 ML PCA.VIAL 1.5 MG IV CONT (14:39)
[2022-09-18] MEDS: WARFARIN (*PBKC) 4 MG TABLET 12 MG PO (16:57)
--- NOTE | 2022-09-18 18:24 | PDONCCN ---
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 He was in eat quite a bit prior to the episode start. He denies any signs of infection including fever chills and night sweats. No burning of urine. No diarrhea and constipation. He claims that he has been taking hydroxyurea daily and his routine home medication did not help his pain control. He labs showed hemoglobin of 10.5 with elevated reticulocyte % of 5.3. LDH was upper limit of normal at 246. He was started on IV hydration. He is still quite uncomfortable with chest pain. Review of Systems - Review of Systems All systems reviewed & are unremarkable except as noted in HPI and bel - Neurologic Denies focal weakness, Denies sensory deficit [facility] Medical History: Medical History (Last Reviewed 05/08/22 @ 22:16 by Alis Rodriguez NP) Acute chest syndrome Chronic anticoagulation Due to history of DVT and pulmonary embolism. Chronic narcotic use On methadone with oxycodone for chronic pain related to sickle cell disease. 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 Deep venous thrombosis Noncompliance History of noncompliance with anticoagulation and hydroxyurea. Pulmonary embolism Sickle cell disease, type SC Surgical History: Surgical History (Last Reviewed 05/08/22 @ 22:16 by Alis Rodriguez NP) History of hand surgery Tendon surgery on right 5th finger. Family History: Family History (Last Reviewed 05/08/22 @ 22:16 by Alis Rodriguez NP) Grandparent Diabetes mellitus Acute myocardial infarction Sibling Asthma Sibling Asthma Mother Hypertension Sickle cell trait Son Sickle cell trait Daughter Sickle cell trait Grandparent No problems noted. Other Diabetes mellitus Father Sickle cell trait - Social History Social History: Social History (Last Reviewed 05/08/22 @ 22:16 by Alis Rodriguez NP) Alcohol Use: Alcohol intake: never Substance Use: Substance use: former Substance use type: marijuana Others: Spiritual care concerns: No Agree to blood products: Yes Living Arrangements: Living arrangements: with family Oppucation/Education: Occupation/Education: other Smoking Status: Smoking status: Never smoker Second hand tobacco smoke exposure: No Social Determinants of Health: Has the Lack of Transportation Kept You From Medical Appointments or From Getting Medications?: No Within the Past 12 Months, Were You Worried Whether Your Food Would Run Out Before You Got Money to Buy More?: Never True What is Your Housing Situation Today?: I Have Housing Are You Worried That in the Next 2 Months, You May Not Have Your Own Housing to Live In?: No Do You Have Trouble Paying Your Heating Or Electricity Bill?: No Do You Have Trouble Paying For Medicines?: No Are You Currently Unemployed and Looking for Work?: No Highest Level of Education Completed: High School Diploma/GED Do You Have Trouble With Childcare or the Care of a Family Member?: No Exam - Vital Signs Vital Signs - 24 hr 09/17/22 19:10 09/17/22 19:36 09/17/22 19:55 Temperature 36.8 C 36.6 C Pulse Rate 71 60 69 Respiratory Rate 15 15 18 Blood Pressure 122/77 113/79 120/77 Pulse Oximetry 97 96 99 Oxygen Delivery 09/17/22 20:00 09/18/22 06:00 09/18/22 14:00 Temperature 36.4 C 36.7 C Pulse Rate 105 H 99 Respiratory Rate 18 12 Blood Pressure 112/72 103/60 Pulse Oximetry 98 95 Oxygen Delivery Room Air 09/18/22 14:39 Temperature Pulse
--- NOTE | 2022-09-18 19:36 | PC.NURSE ---
This pt ordered a ENGINEER with dilaudid this afternoon. ENGINEER started; this RN assessed pt no less than hourly with the start of the ENGINEER. Unaware ENGINEER assessment guidelines intervention prepopulated in worklist but didn't clock prompt on the worklist. Charted information available.
[2022-09-18] MEDS: SENNA/DOCUSATE SODIUM TABLET 2 TAB PO (20:19)
[2022-09-19] VITALS (21 sets, daily range): BP systolic 121–135; BP diastolic 74–95; PULSE 86–102; RESP 16–20; TEMP 35.8–36.9; O2SAT 92–98
[2022-09-19] MEDS: HYDROmorphon 0.2MG/ML PCA(*CRX 6 MG/30 ML PCA.VIAL 1.5 MG IV CONT (01:10)
[2022-09-19] MEDS: LACTATED RINGERS 1,000 ML 100 ML IV CONT (05:19)
[2022-09-19 05:51] LABS: Hematocrit 25.3 % (42.0-52.0); Hemoglobin 8.9 g/dL (14.0-18.0); Mean Corpuscular HGB Conc 35.2 g/dl (32-36); Mean Corpuscular Hemoglobin 30.5 pg (26-34); Mean Corpuscular Volume 86.6 fl (80-100); Mean Platelet Volume 10.5 fl (7.4-10.4); Platelet Count Result 238 k/mm3 (150-375); Red Blood Count 2.92 M/mm3 (4.6-6.20); Red Cell Distribution Width 15.2 % (11.5-14.5); White Blood Count 18.8 K/mm3 (4.5-10.0)
[2022-09-19 06:00] LABS: Prothrombin Time 23.8 Seconds (11.1-14.7)
[2022-09-19 06:06] LABS: Anion Gap 7 mmol/L (8-16); Blood Urea Nitrogen 7 mg/dL (9-20); Calcium 8.8 mg/dL (8.4-10.2); Carbon Dioxide 30 mmol/L (22-30); Chloride 105 mmol/L (98-107); Estimated CRCL calculation 143 ml/min; Estimated Glomerular Filt Rate > 60; Glucose 111 mg/dL (65-110); Potassium 4.2 mmol/L (3.4-5.0); Sodium 142 mmol/L (137-145)
[2022-09-19] MEDS: HYDROXYUREA (*CHEMO) 500 MG CAPSULE PO (08:59)
[2022-09-19] MEDS: SENNA/DOCUSATE SODIUM TABLET 2 TAB PO ×2 (09:04→23:40)
[2022-09-19] MEDS: FOLIC ACID 1 MG TABLET PO (09:04)
[2022-09-19] MEDS: methADONE HCL (*CRX) 10 MG TABLET PO ×3 (09:04→23:41)
--- NOTE | 2022-09-19 10:58 | PM.IMPN ---
Progress Note: A&P Assessment and Plan (1) Sickle cell pain crisis: Code(s): D57.00 - Hb-SS disease with crisis, unspecified Status: Acute Assessment and Plan: H/O sickle cell disease. Last admission 05/08-05/17/22 Continue LR@100 ml/hr fluid resuscitation Hydroxyurea 500 mg PO am Continue folic acid 1 mg Continue methadone home dose. Continue pain control-started on SUSTAINABILITY PURCHASING AGENT pump, decreased to 0.2 mg per hour with p.r.n. Dilaudid 3 mg IV q.3 hours. Continue to wean Dilaudid as tolerated. Narcan available p.r.n. Oxygen as needed. Currently on 3 L. No hypoxia Appreciate hematology/oncology recommendations (2) Subtherapeutic international normalized ratio (INR): Code(s): R79.1 - Abnormal coagulation profile Status: Acute Assessment and Plan: INR 1.3 on admission. He reports missing a few doses prior to admission. Continue 12 mg warfarin, which is his long standing dose INR is appropriate today it 2.0 Continue to monitor PT/INR daily (3) Leukocytosis: Code(s): D72.829 - Elevated white blood cell count, unspecified Status: Resolved Assessment and Plan: White blood cell count with increased to 18.8 today. Patient has not received any steroids and etiology for this is unclear Repeat CXR today with prominent bibasilar atelectasis. No evidence of infection. Continue incentive spirometry Patient denies urinary symptoms No other signs/symptoms to indicate underlying infectious etiology. May be reactive responds Continue to trend CBC with differential Plan CODE STATUS: FULL CODE Discharge disposition: from home. Independent with ADLs Subjective Date/time seen: 09/19/22 10:58 Interval history: Date of service: 09/19/2022 Patient reports pain all over , stating that back, ribs, and chest pain is worse than the pain in his legs than arms. His pain remains 10/10. States during his admission, pain has never improved below 10. Denies nausea, vomiting, fever, or chills. He is having trouble with his movements due to pain and feels he is not able to take deep breath because it hurts his chest. Endorses some mild HSU. Has a poor appetite. Last bowel movement was 2 days ago. No urinary symptoms. Review of Systems Review of Systems: All systems reviewed & are unremarkable except as noted in HPI and below Exam Narrative: General: A well-nourished, well-appearing 37-year-old male, sitting up in bed, appears uncomfortable, grimaces with movements Neuro: awake, alert and oriented x4, speech clear, no focal neuro deficits noted HEENMT: normocephalic, atraumatic, EOMI, sclerae anicteric, moist oral mucosa Respiratory: clear to auscultation bilaterally, nonlabored breathing Cardio: regular rate, regular rhythm with S1-S2 Abdomen: nondistended, normoactive bowel sounds, soft, nontender to palpation Extremities: no edema, erythema, or tenderness to palpation Skin: no rashes or lesions, warm and dry Psych: appropriate mood and affect, judgment and insight intact Objective Data Vital Signs Vital Signs: Vital Signs - 24 hr 09/18/22 14:00 09/18/22 14:39 09/18/22 15:39 Temperature 98.1 F Pulse Rate 99 Respiratory Rate 12 24 H 20 Blood Pressure 103/60 Pulse Oximetry 95 94 95 Oxygen Delivery Oxygen Flow Rate 09/18/22 16:39 09/18/22 17:39 09/18/22 18:39 Temperature Pulse Rate Respiratory Rate 20 18 18 Blood Pressure Pulse Oximetry 95 94 93 Oxygen Delivery Oxygen Flow Rate 09/18/22 20:00 09/18/22 21:02 09/18/22 20:00 Temperature 98.0 F Pulse Rate 102 H 102 H Respiratory Rate 18 18 Blood Pressure 126/68 Pulse Oximetry 95 93 93 Oxygen Delivery Nasal Cannula Nasal Cannula Oxygen Flow Rate 3 3 09/18/22 22:00 09/19/22 00:00 09/18/22 20:00 Temperature 98.8 F 98.2 F Pulse Rate 102 H 101 H Respiratory Rate 24 H 16 18 Blood Pressure 127/71 122/74 Pulse Oximetry 92 94 94 Oxygen Deli
[2022-09-19] MEDS: HYDROmorphon 0.2MG/ML PCA(*CRX 6 MG/30 ML PCA.VIAL 1 MG IV CONT (13:21)
[2022-09-19] MEDS: WARFARIN (*PBKC) 4 MG TABLET 12 MG PO (16:39)
[2022-09-20] VITALS (12 sets, daily range): BP systolic 103–115; BP diastolic 67–76; PULSE 87–96; RESP 16–20; TEMP 36.1–36.9; O2SAT 91–97
[2022-09-20] MEDS: HYDROmorphon 0.2MG/ML PCA(*CRX 6 MG/30 ML PCA.VIAL 1 MG IV CONT (04:18)
[2022-09-20 05:55] LABS: Basophils Percent Auto 0.2 % (0.2-1.2); Eosinophils Absolute Auto 0.2 K/mm3 (0-0.3); Eosinophils Percent Auto 0.9 % (0-4.4); Hematocrit 26.9 % (42.0-52.0); Hemoglobin 9.5 g/dL (14.0-18.0); Immature Granulocyte Absolute 0.08 K/mm3 (0.00-0.031); Immature Granulocyte Percent A 0.5 % (0-0.5); Lymphocytes Absolute Auto 2.61 K/mm3 (0.9-3.2); Lymphocytes Percent Auto 15.4 % (18.3-44.2); Mean Corpuscular HGB Conc 35.3 g/dl (32-36); Mean Corpuscular Hemoglobin 30.8 pg (26-34); Mean Corpuscular Volume 87.3 fl (80-100); Mean Platelet Volume 10.9 fl (7.4-10.4); Monocytes Absolute Auto 2.2 K/mm3 (0.1-0.6); Monocytes Percent Auto 12.7 % (2.6-8.5); Neutrophils Absolute Auto 11.9 K/mm3 (1.3-6.7); Neutrophils Percent Auto 70.3 % (45.5-73.1); Nucleated Red Blood Cells Absolute Auto 0.1 K/mm3 (0.0-0.012); Nucleated Red Blood Cells Perc 0.6 % (0.0-0.2); Platelet Count Result 256 k/mm3 (150-375); Red Blood Count 3.08 M/mm3 (4.6-6.20); Red Cell Distribution Width 14.9 % (11.5-14.5); White Blood Count 16.9 K/mm3 (4.5-10.0)
[2022-09-20 06:04] LABS: INR 2.4; Prothrombin Time 27.5 Seconds (11.1-14.7)
[2022-09-20 06:13] LABS: Anion Gap 4 mmol/L (8-16); Blood Urea Nitrogen 7 mg/dL (9-20); Calcium 8.8 mg/dL (8.4-10.2); Carbon Dioxide 33 mmol/L (22-30); Chloride 102 mmol/L (98-107); Estimated CRCL calculation 143 ml/min; Estimated Glomerular Filt Rate > 60; Glucose 112 mg/dL (65-110); Sodium 139 mmol/L (137-145)
[2022-09-20] MEDS: HYDROXYUREA (*CHEMO) 500 MG CAPSULE PO (08:15)
[2022-09-20] MEDS: FOLIC ACID 1 MG TABLET PO (08:15)
[2022-09-20] MEDS: LACTATED RINGERS 1,000 ML 100 ML IV CONT (08:21)
[2022-09-20] MEDS: methADONE HCL (*CRX) 10 MG TABLET PO ×3 (08:21→20:23)
--- NOTE | 2022-09-20 15:28 | PM.IMPN ---
Progress Note: A&P Assessment and Plan (1) Sickle cell pain crisis: Code(s): D57.00 - Hb-SS disease with crisis, unspecified Status: Acute Assessment and Plan: H/O sickle cell disease. Last admission 05/08-05/17/22 Patient has been adequately rehydrated with IV fluids. Will discontinue today to avoid fluid overload Hydroxyurea 500 mg PO am Continue folic acid 1 mg Continue methadone home dose. Continue pain control-started on RN ACUTE CARE pump, decreased to 0.1 mg per hour with p.r.n. Dilaudid 3 mg IV q.3 hours. Continue to wean Dilaudid as tolerated. Narcan available p.r.n. Oxygen as needed. Currently on 3 L. No hypoxia Appreciate hematology/oncology recommendations (2) Subtherapeutic international normalized ratio (INR): Code(s): R79.1 - Abnormal coagulation profile Status: Acute Assessment and Plan: INR 1.3 on admission. He reports missing a few doses prior to admission. Continue 12 mg warfarin, which is his long standing dose INR is therapeutic today at 2.4 Continue to monitor PT/INR daily (3) Leukocytosis: Code(s): D72.829 - Elevated white blood cell count, unspecified Status: Resolved Assessment and Plan: White blood cell count with slight increase to 18.8. Patient has not received any steroids and etiology for this is unclear. Repeat CXR with prominent bibasilar atelectasis. No evidence of infection. Continue incentive spirometry Patient denies urinary symptoms No other signs/symptoms to indicate underlying infectious etiology. May be reactive response Continue to trend CBC with differential Improved today 16.9 Plan CODE STATUS: FULL CODE Discharge disposition: from home. Independent with ADLs Subjective Date/time seen: 09/20/22 15:28 Interval history: Date of service: 09/19/2022 Quan Downing is a 37-year-old male with history of sickle cell disease, VTE on chronic anticoagulation, chronic pain syndrome and chronic narcotic use who is seen in follow-up for acute sickle cell pain crisis. He feels somewhat improved today. States that his leg and arm pain is improved. Endorses 8/10 pain in his arms, worsened on the left arm with still some restriction of his arm movements due to pain. Endorses 6/10 pain in his legs. States that pain in his chest, ribs, and back has been between 9-10/10. He does endorse some mild shortness of breath, states that is worse with conversation or activity. Denies nausea, vomiting, fever, or chills. No issues with urination. Review of Systems Review of Systems: All systems reviewed & are unremarkable except as noted in HPI and below Exam Narrative: General: well-nourished, well-appearing 37-year-old male, sitting up in bed, comfortable, NARD Neuro: awake, alert and oriented x4, speech clear, no focal neuro deficits noted HEENMT: normocephalic, atraumatic, EOMI, sclerae anicteric Respiratory: clear to auscultation bilaterally, nonlabored breathing Cardio: regular rate, regular rhythm with S1-S2 Abdomen: nondistended, normoactive bowel sounds, soft, nontender to palpation Extremities: no edema, erythema, or tenderness to palpation Skin: no rashes or lesions, warm and dry Psych: appropriate mood and affect, judgment and insight intact Objective Data Vital Signs Vital Signs: Vital Signs - 24 hr 09/19/22 16:00 09/19/22 15:35 09/19/22 17:35 Temperature 97.1 F L Pulse Rate 97 Respiratory Rate 16 20 18 Blood Pressure 121/81 Pulse Oximetry 97 94 95 Oxygen Delivery Oxygen Flow Rate 09/19/22 20:00 09/19/22 20:00 09/19/22 23:48 Temperature 98.1 F 96.5 F L Pulse Rate 97 88 99 Respiratory Rate 18 18 16 Blood Pressure 128/79 135/79 Pulse Oximetry 95 95 98 Oxygen Delivery Nasal Cannula Oxygen Flow Rate 3 09/19/22 19:35 09/19/22 21:35 09/19/22 23:35 Temperature Pulse Rate Respiratory Rate 16 18 18 Blood Pressure Pulse Oximetry 98 95 97 O
[2022-09-20] MEDS: HYDROmorphon 0.2MG/ML PCA(*CRX 6 MG/30 ML PCA.VIAL 0.5 MG IV CONT (16:59)
[2022-09-20] MEDS: WARFARIN (*PBKC) 4 MG TABLET 12 MG PO (17:15)
[2022-09-21 06:00] VITALS: BP 119/69; PULSE 97; RESP 16; TEMP 36.3; O2SAT 92
[2022-09-21 06:18] LABS: Hemoglobin 9.4 g/dL (14.0-18.0); Mean Corpuscular HGB Conc 34.8 g/dl (32-36); Mean Corpuscular Hemoglobin 29.9 pg (26-34); Mean Platelet Volume 10.8 fl (7.4-10.4); Platelet Count Result 265 k/mm3 (150-375); Red Blood Count 3.14 M/mm3 (4.6-6.20); Red Cell Distribution Width 15.1 % (11.5-14.5); White Blood Count 16.6 K/mm3 (4.5-10.0)
[2022-09-21 06:27] LABS: INR 3.5
[2022-09-21 06:35] LABS: Anion Gap 5 mmol/L (8-16); Blood Urea Nitrogen 8 mg/dL (9-20); Calcium 8.7 mg/dL (8.4-10.2); Carbon Dioxide 33 mmol/L (22-30); Chloride 101 mmol/L (98-107); Estimated CRCL calculation 143 ml/min; Estimated Glomerular Filt Rate > 60; Glucose 111 mg/dL (65-110); Potassium 3.5 mmol/L (3.4-5.0); Sodium 139 mmol/L (137-145)
[2022-09-21 08:00] VITALS: O2SAT 93
[2022-09-21 08:45] VITALS: O2SAT 93
[2022-09-21] MEDS: SENNA/DOCUSATE SODIUM TABLET 2 TAB PO (08:45)
[2022-09-21] MEDS: FOLIC ACID 1 MG TABLET PO (08:45)
[2022-09-21] MEDS: methADONE HCL (*CRX) 10 MG TABLET PO ×3 (08:45→20:25)
[2022-09-21] MEDS: HYDROXYUREA (*CHEMO) 500 MG CAPSULE PO (08:45)
--- NOTE | 2022-09-21 11:42 | PM.IMPN ---
Progress Note: A&P Assessment and Plan (1) Sickle cell pain crisis: Code(s): D57.00 - Hb-SS disease with crisis, unspecified Status: Acute Assessment and Plan: H/O sickle cell disease. Last admission 05/08-05/17/22 Patient has been adequately rehydrated with IV fluids. Will discontinue to avoid fluid overload Hydroxyurea 500 mg PO am Continue folic acid 1 mg Continue methadone home dose. Continue pain control-DC TEAM LEADER pump, Continue to wean Dilaudid as tolerated. Start Percocet p.r.n. Oxygen as needed. Currently on 3 L. No hypoxia Appreciate hematology/oncology recommendations (2) Subtherapeutic international normalized ratio (INR): Code(s): R79.1 - Abnormal coagulation profile Status: Acute Assessment and Plan: INR 1.3 on admission. He reports missing a few doses prior to admission. Continue 12 mg warfarin, which is his long standing dose INR is therapeutic Continue to monitor PT/INR daily (3) Leukocytosis: Code(s): D72.829 - Elevated white blood cell count, unspecified Status: Resolved Assessment and Plan: White blood cell count with slight increase to 18.8. Patient has not received any steroids and etiology for this is unclear. Repeat CXR with prominent bibasilar atelectasis. No evidence of infection. Continue incentive spirometry Patient denies urinary symptoms No other signs/symptoms to indicate underlying infectious etiology. May be reactive response Subjective Date/time seen: 09/21/22 11:42 Interval history: Patient states his pain is somewhat better Review of Systems Review of Systems: All systems reviewed & are unremarkable except as noted in HPI and below Exam Narrative: General: well-nourished, well-appearing 37-year-old male, sitting up in bed, comfortable, NARD Neuro: awake, alert and oriented x4, speech clear, no focal neuro deficits noted HEENMT: normocephalic, atraumatic, EOMI, sclerae anicteric Respiratory: clear to auscultation bilaterally, nonlabored breathing Cardio: regular rate, regular rhythm with S1-S2 Abdomen: nondistended, normoactive bowel sounds, soft, nontender to palpation Extremities: no edema, erythema, or tenderness to palpation Skin: no rashes or lesions, warm and dry Psych: appropriate mood and affect, judgment and insight intact Objective Data Vital Signs Vital Signs: Vital Signs - 24 hr 09/20/22 13:35 09/20/22 14:00 09/20/22 18:00 Temperature 96.9 F L Pulse Rate 87 Respiratory Rate 18 16 18 Blood Pressure 103/67 Pulse Oximetry 95 91 95 Oxygen Delivery Oxygen Flow Rate 09/20/22 20:36 09/21/22 06:00 09/21/22 08:45 Temperature 98.4 F 97.3 F L Pulse Rate 91 97 Respiratory Rate 20 16 Blood Pressure 115/76 119/69 Pulse Oximetry 97 92 93 Oxygen Delivery Nasal Cannula Oxygen Flow Rate 2 09/21/22 08:00 Temperature Pulse Rate Respiratory Rate Blood Pressure Pulse Oximetry 93 Oxygen Delivery Nasal Cannula Oxygen Flow Rate 2 Intake/Output Intake/Output: Intake & Output 09/18/22 09/19/22 09/20/22 09/21/22 23:59 23:59 23:59 23:59 Intake Total 3582 / 3582 2466.3 / 2466.3 375.5 / 375.5 Output Total 1600 / 1600 2125 / 2125 3400 / 3400 750 / 750 Balance 1981 / 1981 341.3 / 341.3 -3024.5 / -3024.5 -750 / -750 Meds/Results Medications: Active Medications Generic Name Dose Route Start Last Admin Trade Name Freq PRN Reason Stop Dose Admin Bisacodyl 10 mg 09/18/22 16:48 Bisacodyl 10 Mg Suppository RECTAL QAM PRN Constipation Diphenhydramine HCl 50 mg 09/18/22 01:09 09/18/22 02:17 Diphenhydramine Hcl Cap 25 Mg Capsule PO 50 mg Q6H PRN Administration Itching Folic Acid 1 mg 09/18/22 09:00 09/21/22 08:45 Folic Acid 1 Mg Tablet PO 1 mg DAILY CHRISTOPHER Administration Hydromorphone HCl 1 mg 09/21/22 08:41 Hydromorphone Hcl Inj (*Crx) 1 Mg/Ml Syr IV PUSH Q3H PRN Pain Rated 7-10 Hy
[2022-09-21] MEDS: oxyCODONE/ACETAMINOPHEN (*CRX) 10-325 MG TABLET 1 TAB PO ×2 (11:48→17:05)
[2022-09-21] MEDS: HYDROmorphone HCL INJ (*CRX) 1 MG/ML SYR IV PUSH ×2 (13:04→16:11)
[2022-09-21 13:39] VITALS: BP 109/65; PULSE 87; RESP 18; TEMP 36.2; O2SAT 95
[2022-09-21] MEDS: WARFARIN (*PBKC) 4 MG TABLET 12 MG PO (16:11)
[2022-09-21] MEDS: HYDROmorphone HCL INJ (*CRX) 1 MG/ML SYR 2 MG IV PUSH ×2 (18:30→21:18)
[2022-09-21 20:39] VITALS: BP 112/64; PULSE 96; RESP 14; TEMP 36.6; O2SAT 90
[2022-09-22] MEDS: HYDROmorphone HCL INJ (*CRX) 1 MG/ML SYR 2 MG IV PUSH ×3 (00:44→06:46)
[2022-09-22 06:00] VITALS: BP 121/64; PULSE 95; RESP 18; TEMP 36.6; O2SAT 96
[2022-09-22 08:00] VITALS: O2SAT 98
[2022-09-22 08:21] LABS: INR 4.9; Prothrombin Time 49.6 Seconds (11.1-14.7)
[2022-09-22] MEDS: HYDROXYUREA (*CHEMO) 500 MG CAPSULE PO (08:31)
[2022-09-22] MEDS: methADONE HCL (*CRX) 10 MG TABLET PO ×3 (08:31→20:24)
[2022-09-22] MEDS: SENNA/DOCUSATE SODIUM TABLET 2 TAB PO (08:31)
[2022-09-22] MEDS: FOLIC ACID 1 MG TABLET PO (08:31)
[2022-09-22 09:27] LABS: INR 4.7; Prothrombin Time 48.6 Seconds (11.1-14.7)
[2022-09-22] MEDS: HYDROmorphone HCL INJ (*CRX) 1 MG/ML SYR IV PUSH ×4 (10:00→23:14)
[2022-09-22 10:07] VITALS: O2SAT 92
--- NOTE | 2022-09-22 10:37 | PM.IMPN ---
Progress Note: A&P Assessment and Plan (1) Sickle cell pain crisis: Code(s): D57.00 - Hb-SS disease with crisis, unspecified Status: Acute Assessment and Plan: H/O sickle cell disease. Last admission 05/08-05/17/22 Hydroxyurea 500 mg PO am Continue folic acid 1 mg Continue methadone home dose. Continue to wean Dilaudid as tolerated. Start Percocet p.r.n. Appreciate hematology/oncology recommendations (2) Leukocytosis: Code(s): D72.829 - Elevated white blood cell count, unspecified Status: Resolved Assessment and Plan: White blood cell count with slight increase to 18.8. Patient has not received any steroids and etiology for this is unclear. Repeat CXR with prominent bibasilar atelectasis. No evidence of infection. Continue incentive spirometry Patient denies urinary symptoms No other signs/symptoms to indicate underlying infectious etiology. May be reactive response (3) Supratherapeutic INR: Code(s): R79.1 - Abnormal coagulation profile Status: Acute Assessment and Plan: INR supratherapeutic. Hold Coumadin. Monitor INR daily. No evidence of bleeding Subjective Date/time seen: 09/22/22 10:37 Interval history: Patient states his pain is better. He is ambulating in the hallway Review of Systems Review of Systems: All systems reviewed & are unremarkable except as noted in HPI and below Exam Narrative: General: well-nourished, well-appearing 37-year-old male, sitting up in bed, comfortable, NARD Neuro: awake, alert and oriented x4, speech clear, no focal neuro deficits noted HEENMT: normocephalic, atraumatic, EOMI, sclerae anicteric Respiratory: clear to auscultation bilaterally, nonlabored breathing Cardio: regular rate, regular rhythm with S1-S2 Abdomen: nondistended, normoactive bowel sounds, soft, nontender to palpation Extremities: no edema, erythema, or tenderness to palpation Skin: no rashes or lesions, warm and dry Psych: appropriate mood and affect, judgment and insight intact Objective Data Vital Signs Vital Signs: Vital Signs - 24 hr 09/21/22 13:39 09/21/22 20:39 09/22/22 06:00 Temperature 97.1 F L 97.8 F 98 F Pulse Rate 87 96 95 Respiratory Rate 18 14 18 Blood Pressure 109/65 112/64 121/64 Pulse Oximetry 95 90 96 Oxygen Delivery 09/22/22 08:00 09/22/22 10:07 Temperature Pulse Rate Respiratory Rate Blood Pressure Pulse Oximetry 98 92 Oxygen Delivery Room Air Room Air Intake/Output Intake/Output: Intake & Output 09/19/22 09/20/22 09/21/22 09/22/22 23:59 23:59 23:59 23:59 Intake Total 2466.3 / 2466.3 375.5 / 375.5 960 / 960 975 / 975 Output Total 2125 / 2125 3400 / 3400 1550 / 1550 600 / 600 Balance 341.3 / 341.3 -3024.5 / -3024.5 -590 / -590 375 / 375 Meds/Results Medications: Active Medications Generic Name Dose Route Start Last Admin Trade Name Freq PRN Reason Stop Dose Admin Bisacodyl 10 mg 09/18/22 16:48 Bisacodyl 10 Mg Suppository RECTAL QAM PRN Constipation Diphenhydramine HCl 50 mg 09/18/22 01:09 09/18/22 02:17 Diphenhydramine Hcl Cap 25 Mg Capsule PO 50 mg Q6H PRN Administration Itching Folic Acid 1 mg 09/18/22 09:00 09/22/22 08:31 Folic Acid 1 Mg Tablet PO 1 mg DAILY CHRISTOPHER Administration Hydromorphone HCl 1 mg 09/22/22 09:46 09/22/22 10:00 Hydromorphone Hcl Inj (*Crx) 1 Mg/Ml Syr IV PUSH 1 mg Q3H PRN Administration Pain Rated 7-10 Hydroxyurea 500 mg 09/18/22 09:00 09/22/22 08:31 Hydroxyurea (*Chemo) 500 Mg Capsule PO 500 mg QAM CHRISTOPHER Administration Methadone HCl 10 mg 09/18/22 09:00 09/22/22 08:31 Methadone Hcl (*Crx) 10 Mg Tablet PO 10 mg 0900,1700,2100 CHRISTOPHER Administration Naloxone HCl 0.1 mg 09/19/22 10:26 Naloxone Hcl 0.4 Mg/Ml Vial IV PUSH Q5MIN PRN INSURANCE CASE MANAGER Management Oxycodone/Acetaminophen 1 tab 09/21/22 08:42 09/21/22 17:05 Oxycodone/Acetaminophen (*Crx) 10-
[2022-09-22] MEDS: oxyCODONE/ACETAMINOPHEN (*CRX) 10-325 MG TABLET 1 TAB PO ×3 (11:39→22:32)
[2022-09-22 14:00] VITALS: BP 117/73; PULSE 107; RESP 16; TEMP 36.3; O2SAT 90
[2022-09-22 20:54] VITALS: BP 112/68; PULSE 109; RESP 20; TEMP 37.3; O2SAT 89
[2022-09-23] MEDS: HYDROmorphone HCL INJ (*CRX) 1 MG/ML SYR IV PUSH ×2 (03:52→07:48)
[2022-09-23] MEDS: oxyCODONE/ACETAMINOPHEN (*CRX) 10-325 MG TABLET 1 TAB PO ×3 (05:32→18:57)
[2022-09-23 06:00] VITALS: BP 108/65; PULSE 96; RESP 20; TEMP 37.1; O2SAT 89
[2022-09-23 07:17] LABS: INR 4.6; Prothrombin Time 47.1 Seconds (11.1-14.7)
[2022-09-23 08:00] VITALS: O2SAT 98
[2022-09-23] MEDS: SENNA/DOCUSATE SODIUM TABLET 2 TAB PO (08:23)
[2022-09-23] MEDS: FOLIC ACID 1 MG TABLET PO (08:24)
[2022-09-23] MEDS: methADONE HCL (*CRX) 10 MG TABLET PO ×3 (08:24→20:42)
[2022-09-23] MEDS: HYDROXYUREA (*CHEMO) 500 MG CAPSULE PO (08:24)
--- NOTE | 2022-09-23 09:49 | PM.IMPN ---
Progress Note: A&P Assessment and Plan (1) Sickle cell pain crisis: Code(s): D57.00 - Hb-SS disease with crisis, unspecified Status: Acute Assessment and Plan: H/O sickle cell disease. Last admission 05/08-05/17/22 Hydroxyurea 500 mg PO am Continue folic acid 1 mg Continue methadone home dose. Continue to wean Dilaudid. Continue Percocet p.r.n. Appreciate hematology/oncology recommendations (2) Supratherapeutic INR: Code(s): R79.1 - Abnormal coagulation profile Status: Acute Assessment and Plan: INR supratherapeutic. Hold Coumadin. Monitor INR daily. No evidence of bleeding Subjective Date/time seen: 09/23/22 09:49 Interval history: Patient states his pain is not better although he has not required any more pain medications and is sitting comfortably in bed Review of Systems Review of Systems: All systems reviewed & are unremarkable except as noted in HPI and below Exam Narrative: General: well-nourished, well-appearing 37-year-old male, sitting up in bed, comfortable, NARD Neuro: awake, alert and oriented x4, speech clear, no focal neuro deficits noted HEENMT: normocephalic, atraumatic, EOMI, sclerae anicteric Respiratory: clear to auscultation bilaterally, nonlabored breathing Cardio: regular rate, regular rhythm with S1-S2 Abdomen: nondistended, normoactive bowel sounds, soft, nontender to palpation Extremities: no edema, erythema, or tenderness to palpation Skin: no rashes or lesions, warm and dry Psych: appropriate mood and affect, judgment and insight intact Objective Data Vital Signs Vital Signs: Vital Signs - 24 hr 09/22/22 10:07 09/22/22 14:00 09/22/22 20:54 Temperature 97.3 F L 99.1 F Pulse Rate 107 H 109 H Respiratory Rate 16 20 Blood Pressure 117/73 112/68 Pulse Oximetry 92 90 89 L Oxygen Delivery Room Air 09/22/22 20:00 09/23/22 06:00 Temperature 98.7 F Pulse Rate 96 Respiratory Rate 20 Blood Pressure 108/65 Pulse Oximetry 89 L Oxygen Delivery Room Air Intake/Output Intake/Output: Intake & Output 06/08/23 06/09/23 06/10/23 06/11/23 23:59 23:59 23:59 23:59 Intake Total 375.5 / 375.5 960 / 960 2415 / 2415 750 / 750 Output Total 3400 / 3400 1550 / 1550 600 / 600 Balance -3024.5 / -3024.5 -590 / -590 1815 / 1815 750 / 750 Meds/Results Medications: Active Medications Generic Name Dose Route Start Last Admin Trade Name Freq PRN Reason Stop Dose Admin Bisacodyl 10 mg 09/18/22 16:48 Bisacodyl 10 Mg Suppository RECTAL QAM PRN Constipation Diphenhydramine HCl 50 mg 09/18/22 01:09 09/18/22 02:17 Diphenhydramine Hcl Cap 25 Mg Capsule PO 50 mg Q6H PRN Administration Itching Folic Acid 1 mg 09/18/22 09:00 09/23/22 08:24 Folic Acid 1 Mg Tablet PO 1 mg DAILY CHRISTOPHER Administration Hydromorphone HCl 0.5 mg 09/23/22 08:26 Hydromorphone Hcl Inj (*Crx) 1 Mg/Ml Syr IV PUSH Q4H PRN Pain Rated 7-10 Hydroxyurea 500 mg 09/18/22 09:00 09/23/22 08:24 Hydroxyurea (*Chemo) 500 Mg Capsule PO 500 mg QAM CHRISTOPHER Administration Methadone HCl 10 mg 09/18/22 09:00 09/23/22 08:24 Methadone Hcl (*Crx) 10 Mg Tablet PO 10 mg 0900,1700,2100 CHRISTOPHER Administration Naloxone HCl 0.1 mg 09/19/22 10:26 Naloxone Hcl 0.4 Mg/Ml Vial IV PUSH Q5MIN PRN CLINICAL OB Management Oxycodone/Acetaminophen 1 tab 09/21/22 08:42 09/23/22 05:32 Oxycodone/Acetaminophen (*Crx) 10-325 Mg Tablet PO 1 tab Q4H PRN Administration Pain Rated 7-10 Polyethylene Glycol 17 gm 09/19/22 09:00 09/23/22 08:25 Polyethylene Glycol 3350 17 Gm Powd.Pack PO Not Given QAM CHRISTOPHER Senna/Docusate Sodium 2 tab 09/18/22 21:00 09/23/22 08:23 Senna/Docusate Sodium Tablet PO 2 tab Q12HR CHRISTOPHER Administration Radiology Results: ITS Impressions Chest X-Ray 09/19/22 09:34 IMPRESSION: Prominent bibasilar atelectasis, increased since 09/17/2022 Labs
[2022-09-23] MEDS: HYDROmorphone HCL INJ (*CRX) 1 MG/ML SYR 0.5 MG IV PUSH ×3 (11:03→20:36)
[2022-09-23 11:15] VITALS: O2SAT 91
[2022-09-23 14:00] VITALS: BP 114/77; PULSE 95; RESP 20; TEMP 35.8; O2SAT 91
[2022-09-23] MEDS: diphenhydrAMINE HCl CAP 25 MG CAPSULE 50 MG PO (15:43)
[2022-09-23 20:46] VITALS: BP 111/69; PULSE 92; RESP 20; TEMP 36.2; O2SAT 90
[2022-09-24] MEDS: oxyCODONE/ACETAMINOPHEN (*CRX) 10-325 MG TABLET 1 TAB PO (00:05)
[2022-09-24] MEDS: HYDROmorphone HCL INJ (*CRX) 1 MG/ML SYR 0.5 MG IV PUSH (02:33)
[2022-09-24] MEDS: diphenhydrAMINE HCl CAP 25 MG CAPSULE 50 MG PO (02:34)
[2022-09-24 05:41] VITALS: BP 113/75; PULSE 76; RESP 16; TEMP 36.2; O2SAT 93
[2022-09-24 06:18] LABS: INR 4.3; Prothrombin Time 44.5 Seconds (11.1-14.7)
[2022-09-24] MEDS: FOLIC ACID 1 MG TABLET PO (08:24)
[2022-09-24] MEDS: HYDROXYUREA (*CHEMO) 500 MG CAPSULE PO (08:24)
[2022-09-24] MEDS: SENNA/DOCUSATE SODIUM TABLET 2 TAB PO (08:25)
[2022-09-24] MEDS: methADONE HCL (*CRX) 10 MG TABLET PO ×3 (08:25→20:30)
--- NOTE | 2022-09-24 10:37 | PM.IMPN ---
Progress Note: A&P Assessment and Plan (1) Sickle cell pain crisis: Code(s): D57.00 - Hb-SS disease with crisis, unspecified Status: Acute Assessment and Plan: H/O sickle cell disease. Last admission 05/08-05/17/22 Hydroxyurea 500 mg PO am Continue folic acid 1 mg Continue methadone home dose. Discontinue IV Dilaudid. Continue Percocet p.r.n. will add MS Contin which is long-acting Appreciate hematology/oncology recommendations (2) Supratherapeutic INR: Code(s): R79.1 - Abnormal coagulation profile Status: Acute Assessment and Plan: INR supratherapeutic. Hold Coumadin. Monitor INR daily. No evidence of bleeding Subjective Date/time seen: 09/24/22 10:37 Interval history: Patient states the pain is not under control even though he has not required any IV Dilaudid and is resting comfortably in bed Review of Systems Review of Systems: All systems reviewed & are unremarkable except as noted in HPI and below Exam Narrative: General: well-nourished, well-appearing 37-year-old male, sitting up in bed, comfortable, NARD Neuro: awake, alert and oriented x4, speech clear, no focal neuro deficits noted HEENMT: normocephalic, atraumatic, EOMI, sclerae anicteric Respiratory: clear to auscultation bilaterally, nonlabored breathing Cardio: regular rate, regular rhythm with S1-S2 Abdomen: nondistended, normoactive bowel sounds, soft, nontender to palpation Extremities: no edema, erythema, or tenderness to palpation Skin: no rashes or lesions, warm and dry Psych: appropriate mood and affect, judgment and insight intact Objective Data Vital Signs Vital Signs: Vital Signs - 24 hr 09/23/22 11:15 09/23/22 14:00 09/23/22 20:46 Temperature 96.5 F L 97.1 F L Pulse Rate 95 92 Respiratory Rate 20 20 Blood Pressure 114/77 111/69 Pulse Oximetry 91 91 90 Oxygen Delivery Room Air 09/23/22 20:00 09/24/22 05:41 09/24/22 07:37 Temperature 97.1 F L Pulse Rate 76 Respiratory Rate 16 Blood Pressure 113/75 Pulse Oximetry 93 Oxygen Delivery Room Air Room Air Intake/Output Intake/Output: Intake & Output 09/21/22 09/22/22 09/23/22 09/24/22 23:59 23:59 23:59 23:59 Intake Total 960 / 960 2415 / 2415 1852 / 1852 460 / 460 Output Total 1550 / 1550 600 / 600 Balance -590 / -590 1815 / 1815 185 / 1852 460 / 460 Meds/Results Medications: Active Medications Generic Name Dose Route Start Last Admin Trade Name Freq PRN Reason Stop Dose Admin Bisacodyl 10 mg 09/18/22 16:48 Bisacodyl 10 Mg Suppository RECTAL QAM PRN Constipation Diphenhydramine HCl 50 mg 09/18/22 01:09 09/24/22 02:34 Diphenhydramine Hcl Cap 25 Mg Capsule PO 50 mg Q6H PRN Administration Itching Folic Acid 1 mg 09/18/22 09:00 09/24/22 08:24 Folic Acid 1 Mg Tablet PO 1 mg DAILY CHRISTOPHER Administration Hydroxyurea 500 mg 09/18/22 09:00 09/24/22 08:24 Hydroxyurea (*Chemo) 500 Mg Capsule PO 500 mg QAM CHRISTOPHER Administration Methadone HCl 10 mg 09/18/22 09:00 09/24/22 08:25 Methadone Hcl (*Crx) 10 Mg Tablet PO 10 mg 0900,1700,2100 [facility] Administration Naloxone HCl 0.1 mg 09/19/22 10:26 Naloxone Hcl 0.4 Mg/Ml Vial IV PUSH Q5MIN PRN [employer] Management Oxycodone/Acetaminophen 1 tab 09/21/22 08:42 09/24/22 00:05 Oxycodone/Acetaminophen (*Crx) 10-325 Mg Tablet PO 1 tab Q4H PRN Administration Pain Rated 7-10 Polyethylene Glycol 17 gm 09/19/22 09:00 09/24/22 08:20 Polyethylene Glycol 3350 17 Gm Powd.Pack PO Not Given QAM CHRISTOPHER Senna/Docusate Sodium 2 tab 09/18/22 21:00 09/24/22 08:25 Senna/Docusate Sodium Tablet PO 2 tab Q12HR CHRISTOPHER Administration Radiology Results: ITS Impressions Chest X-Ray 09/19/22 09:34 IMPRESSION: Prominent bibasilar atelectasis, increased since 09/17/2022 Labs Labs: Laboratory Results - last 24 hr 09/24/22 05:26 PT 44.5 H INR 4.3
[2022-09-24 14:00] VITALS: BP 122/75; PULSE 105; RESP 18; TEMP 36.6; O2SAT 93
[2022-09-24] MEDS: MORPHINE SULFATE (*CRX) 30 MG TABCR PO ×2 (14:17→20:30)
--- NOTE | 2022-09-24 15:27 | PCCCNOTE ---
On 09/24/22, the student, [Luda August ], provided care and completed [facility] documentation on this patient. I have reviewed the student's documentation and agree with the findings.
[2022-09-24 22:00] VITALS: BP 110/65; PULSE 107; RESP 18; TEMP 36.8; O2SAT 94
[2022-09-25 05:56] LABS: INR 4.1; Prothrombin Time 43.6 Seconds (11.1-14.7)
[2022-09-25 06:00] VITALS: BP 116/78; PULSE 91; RESP 15; TEMP 36.3; O2SAT 97
[2022-09-25] MEDS: methADONE HCL (*CRX) 10 MG TABLET PO (09:06)
[2022-09-25] MEDS: MORPHINE SULFATE (*CRX) 30 MG TABCR PO (09:06)
[2022-09-25] MEDS: FOLIC ACID 1 MG TABLET PO (09:06)
[2022-09-25] MEDS: HYDROXYUREA (*CHEMO) 500 MG CAPSULE PO (09:06)
[2022-09-25] MEDS: SENNA/DOCUSATE SODIUM TABLET 2 TAB PO (09:06)
--- NOTE | 2022-09-25 09:40 | PCNWS ---
Weekly nutritional screen. Patient is tolerating current Regular diet with adequate intake at 100% most all meals. No weight loss reported. No nutritional needs at this time.
[2022-09-25] MEDS: HYDROmorphone HCL INJ (*CRX) 1 MG/ML SYR 2 MG IV PUSH (11:16)
--- NOTE | 2022-09-25 13:06 | P.DS_ITS ---
DS: Admitting Diagnosis Discharge Date 09/25/2022 Admitting Diagnosis Sickle cell crisis DS: Discharge Diagnosis Discharge Diagnosis (1) Supratherapeutic INR: Code(s): R79.1 - Abnormal coagulation profile Status: Acute (2) Sickle cell pain crisis: Code(s): D57.00 - Hb-SS disease with crisis, unspecified Status: Acute DS: Summary Hospital Course Hospital Course: Assessment and Plan (1) Sickle cell pain crisis: ?Code(s): D57.00 - Hb-SS disease with crisis, unspecified ?Status:?Acute ?Assessment and Plan: H/O sickle cell disease. Last admission 05/08-05/17/22 * Hydroxyurea 500 mg PO am * Continue folic acid 1 mg * Continue methadone home dose. * Discontinue IV Dilaudid.? Continue Percocet p.r.n. * Appreciate hematology/oncology recommendations (2) Supratherapeutic INR: ?Code(s): R79.1 - Abnormal coagulation profile ?Status:?Acute ?Assessment and Plan: INR supratherapeutic.? Hold Coumadin.? Monitor INR.? No evidence of bleeding Patient stated his pain is not controlled even though he has been resting comfortably in bed. We tried mS Contin and the patient said his pain was still not controlled. He is already on methadone and oxycodone at home. Now at this time he says his pain is controlled and he is being discharged home. He is on Coumadin INR is supratherapeutic so we have advised the patient to hold his Coumadin for 2 days and get an INR checked in 2 days and then resume Coumadin if the INR is therapeutic. Time Spent with Patient Time attestation: Total time spent providing and/or coordinating discharge services: DS: Data Data Completed and Pending Labs on day of discharge: Labs from last 24 hours 09/25/22 05:29 PT 43.6 H INR 4.1 Discharge Plan Discharge Consulting providers: Jone Marks Discharging Clinician: Abdoulaye Dodson Anticipated Discharge Date/Time: 09/25/22 13:02 Patient Disposition: Home, Self-Care Activity: no preference Diet: regular Patient Instructions: Antibiotic Form, Warfarin (By mouth), Pain Management (DC), Sickle Cell Crisis (DC) Stand Alone Forms: General Discharge Information Follow-up/Referrals: Jone Marks MD [Physician] - PHYSICIAN,[facility] [Primary Care Provider] - Discharge Medications: Continued folic acid 1 mg Tablet 1 mg PO DAILY methadone 10 mg tablet 10 mg PO TID Rx Instructions: 0900, 1700, 2100 oxycodone-acetaminophen 10-325 mg tablet 1 tablet PO BID PRN (Reason: Pain, Moderate) hydroxyurea 500 mg Capsule 500 mg PO QAM Qty: 30 0RF Held warfarin 7.5 mg tablet 10 mg PO DAILY Qty: 1 0RF Hold Instructions: Resume on 09/28/22. Discontinued ibuprofen 800 mg tablet 800 mg PO PRN Other Ambulatory Orders: Prothrombin Time INR (Routine) Timeframe: 2 Days Location: Determined by Patient Ordered By: Abdoulaye Dodson Date of admission: 09/18/22 15:14 Primary Care Provider: PHYSICIAN,[facility] Admitting Provider: Shayne Davis Attending physician on admission: Abdoulaye Dodson Condition: Stable
== END 2022-09-25 13:55 | disposition home or self-care (01) | DRG 662 ==
LOC: ANHED 14:54 → ANH3MEDSUR 18:59
PROVIDERS: Emergency Medicine; Internal Medicine; Nurse Practitioner Family; Physician Assistant; Admitting Provider Internal Medicine; Emergency Provider Emergency Medicine; Visit Provider Hospitalist
DX: D57.01 Hb-SS disease with acute chest syndrome (principal); D72.829 Elevated white blood cell count, unspecified; G89.4 Chronic pain syndrome; R79.1 Abnormal coagulation profile; Z79.01 Long term (current) use of anticoagulants; Z86.718 Personal history of other venous thrombosis and embolism; Z86.711 Personal history of pulmonary embolism; Z79.891 Long term (current) use of opiate analgesic; Z91.148 Patient's other noncompliance with medication regimen for other reason
CPT/HCPCS: 36415; 71046; 80048; 80053; 83615; 85025; 85027; 85046; 85055; 85610; 93005; 96361; 96365; 96374; 96375; 96376; 99285; A9270; G0378; G0379; J1170; J1200; J7030; J7120

== ENCOUNTER 2022-12-30 10:37 | Inpatient (IN) | payer OTHER, SELFPAY ==
--- NOTE | ~2022-12-30 | XR_ITS ---
XR chest 2V DATE: 12/30/2022 12:58 INDICATION: Shortness of breath. Sickle cell. TECHNIQUE: AP and lateral views COMPARISON: 09/19/2022 AP and lateral chest FINDINGS: Prominent bibasilar discoid atelectasis or scarring. The lungs otherwise are clear. No pleural effusion or pulmonary vascular congestion or pneumothorax. Normal heart size. No hilar or mediastinal enlargement. IMPRESSION: Bibasilar discoid atelectasis or scarring Reviewed, dictated and finalized at location A.
--- NOTE | 2022-12-30 12:19 | ECG_ITS ---
Measurements Intervals [place] Rate: 88 P: 25 WI: 166 QRS: 8 QRSD: 86 T: -18 QT: 345 QTc: 418 Interpretive Statements SINUS RHYTHM EARLY PRECORDIAL R/S TRANSITION BORDERLINE ST-T WAVE ABNORMALITY- ANTEROLAT/INF LEADS BASELINE ARTIFACT- I, III, AVR, AVL, AVF, V1-V2, V4-V6 BORDERLINE ECG COMPARED TO ECG 09/17/2022 16:26:12 NO SIGNIFICANT CHANGES Electronically Signed On 12-30-2022 16:01:45 CDT by Ricky Modi D.O.
--- NOTE | 2022-12-30 12:21 | ED.GENADULT ---
HPI - General Adult General Chief complaint: Unspecified Stated complaint: sickle cell Time Seen by Provider: 12/30/22 12:05 History of Present Illness HPI narrative: Patient is a 37-year-old male with a history of sickle cell disease presenting with sickle cell pain crisis. Patient states that for the last several days he has had increasingly severe pain from his waist down especially in his legs. He has been using his home methadone and oxycodone without significant improvement. States that he has had some intermittent chest pain with an episode of shortness of breath that has resolved. States that he has been somewhat nauseated but no vomiting. He denies fevers or chills, cough, headache, abdominal pain, rashes. Related Data Home Medications Medication Instructions Recorded Confirmed folic acid 1 mg tablet 1 mg PO DAILY 02/16/19 12/30/22 methadone 10 mg tablet 10 mg PO TID 08/22/20 12/30/22 oxycodone-acetaminophen 10 mg-325 10 tablet PO BID PRN Pain, Moderate 08/22/20 12/30/22 mg tablet ibuprofen 800 mg tablet 800 mg PO PRN 12/30/22 12/30/22 methadone 10 mg tablet 10 mg PO BID 12/30/22 12/30/22 warfarin 7.5 mg tablet 12 mg PO DAILY 12/30/22 12/30/22 Allergies Allergy/AdvReac Type Severity Reaction Status Date / Time Fish Containing Products Allergy Mild Itching Verified 09/17/22 12:56 Review of Systems Review of Systems: All systems reviewed & are unremarkable except as noted in HPI and below PMFSH Past Medical History Medical History Acute chest syndrome Chronic anticoagulation Due to history of DVT and pulmonary embolism. Chronic narcotic use On methadone with oxycodone for chronic pain related to sickle cell disease. 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 Deep venous thrombosis Noncompliance History of noncompliance with anticoagulation and hydroxyurea. Pulmonary embolism Sickle cell disease, type SC Surgical History Surgical History History of hand surgery Tendon surgery on right 5th finger. Family History Family History Grandparent Diabetes mellitus Acute myocardial infarction Sibling Asthma Sibling Asthma Mother Hypertension Sickle cell trait Son Sickle cell trait Daughter Sickle cell trait Grandparent No problems noted. Other Diabetes mellitus Father Sickle cell trait Social History Social History Social History: The patient lives in [place] with his family. He is on disability due to sickle cell disease and chronic pain. He is a lifelong nonsmoker and denies alcohol and illicit substance abuse. He uses marijuana to help with pain. He designates Jolly Zuniga (mother) or Keyla Luther (friend) as his surrogate decision makers and he wishes to be a full code. Smoking status: Current some day smoker Second hand tobacco smoke exposure: No Additional smoking assessment comments: Smokes marijuana when pain meds unavailable. Alcohol intake: never Substance use: current Substance use type: marijuana Other substance usage details: For back when he doesn't have any pain meds available. Last use: 12/28/22 Lack of Transportation: No Lack of Food: Never True Current Housing: I Have Housing Concerned About Future Housing: No Difficulty Paying Gas/Electric Bills: No Difficulty Paying for Meds: No Currently Unemployed: No Education: High School Diploma/GED Difficulty w/ Childcare or Family Care: No Living arrangements: with family Occupation/Education: other Spiritual care concerns: No Agree to blood products: Yes Exam Narrative: GENERAL: Uncomfortable due to pain, pleasant and cooperative HEAD: Normocephalic, atraumatic. EYES: PERRLA and EOMI. ENT: Nares clear, no rhinorrhea or epistaxis. Mucous membranes moist. NECK: Supple. CHEST: Clear to auscultation. No respiratory distress. HEART: Regular rate and rhythm. Normal peripheral pulses. ABDOMEN: Soft, nontender, nondistended EXTREMITIES: Normal range of motion. No edema. SKIN: Warm, dry, no rash. NEURO: No focal deficits. Alert and oriented x3. PSYCH: Normal mood and affect. Course Vital Signs Vital signs: Vital Signs Pulse Rate 74 12/30/22 20:28 Respiratory Rate 15 12/30/22 20:28 Blood Pressure 108/56 L 12/30/22 20:28 Pulse Oximetry 100 12/30/22 20:28 Temperature 97.5 F L 01/03/23 05:18 Pulse Rate 85 01/03/23 05:18 Respiratory Rate 16 01/03/23 05:18 Blood Pressure 113/75 01/03/23 05:18 Pulse Oximetry 97 01/03/23 05:18 Oxygen Delivery Room Air 01/02/23 20:00 Medical Decision Making MDM Narrative Medical decision making narrative: Patient is a 37-year-old male presenting with a sickle cell pain crisis. Vitals are stable. Exam remarkable for the above. Plan for labs, fluids, pain control. On reevaluation, the patient states that his pain was temporarily controlled with the IV Dilaudid but it is coming back. Blood work with stable anemia and leukocytosis. Reticulocyte count is elevated. We will give another dose of IV pain meds, plan for likely admission. Spoke with the hospitalist who is excepted the patient for admission. Also spoke with Dr. Marks for consult. Differential Diagnosis Differential Diagnosis: Sickle cell anemia, sickle cell pain crisis, acute chest syndrome Medical Records Medical records reviewed: Yes I reviewed the external patient's medical records. Vital Signs Vital Signs: Vital Signs Pulse Rate 74 12/30/22 20:28 Respiratory Rate 15 12/30/22 20:28 Blood Pressure 108/56 L 12/30/22 20:28 Pulse Oximetry 100 12/30/22 20:28 Temperature 97.5 F L 01/03/23 05:18 Pulse Rate 85 01/03/23 05:18 Respiratory Rate 16 01/03/23 05:18 Blood Pressure 113/75 01/03/23 05:18 Pulse Oximetry 97 01/03/23 05:18 Oxygen Delivery Room Air 01/02/23 20:00 Lab Data Lab results reviewed: Yes I reviewed the patient's lab results. 01/02/23 08:36 12/31/22 02:05 Labs: Lab Results 12/30/22 12/30/22 12/31/22 Range/Units 12:28 12:35 02:05 WBC 15.8 H 13.6 H (4.5-10.0) K/mm3 RBC 3.26 L 3.25 L (4.6-6.20) M/mm3 Hgb 10.2 L 10.2 L (14.0-18.0) g/dL Hct 28.7 L 28.8 L (42.0-52.0) % MCV 88.0 88.6 (80-100) fl MCH 31.3 31.4 (26-34) pg MCHC 35.5 35.4 (32-36) g/dl RDW 14.6 H 14.7 H (11.5-14.5) % Plt Count 284 273 (150-375) k/mm3 MPV 10.2 10.6 H (7.4-10.4) fl Immature Gran % (Auto) 0.6 H 0.4 (0-0.5) % Neut % (Auto) 61.7 49.4 (45.5-73.1) % Lymph % (Auto) 25.9 36.9 (18.3-44.2) % [place] % (Auto) 10.3 H 10.1 H (2.6-8.5) % Eos % (Auto) 1.0 2.3 (0-4.4) % Baso % (Auto) 0.5 0.9 (0.2-1.2) % Lymph # (Auto) 4.08 H 5.01 H (0.9-3.2) K/mm3 [place] # (Auto) 1.6 H 1.4 H (0.1-0.6) K/mm3 Eos # (Auto) 0.2 0.3 (0-0.3) K/mm3 Baso # (Auto) 0.1 0.1 (0.0-0.1) K/mm3 Abs Immat Gran (auto) 0.09 H 0.05 H (0.00-0.031) K/mm3 Absolute Neuts (auto) 9.7 H 6.7 (1.3-6.7) K/mm3 Absolute Nucleated RBC 0.0 0.0 (0.0-0.012) K/mm3 Nucleated RBC % 0.3 H 0.2 (0.0-0.2) % Platelet Estimate Adequate (Adequate) % Immature Plt Fraction 6.1 (0.9-11.2) % Poikilocytosis 1+ (NORMAL) Sickle Cells 1+ (NORMAL) Target Cells 2+ (NORMAL) Schistocytes 1+ (NORMAL) Absolute Retic 0.18 H (0.02-0.1) M/mm3 Percent Retic 5.57 H (0.7-4.3) % Immature Retic Fraction 35.2 H (3.0-15.9) % Retic Hgb Content 30.7 (28.2-35.7) pg PT 19.3 H 19.4 H (11.1-14.7) Seconds INR 1.5 1.5 APTT 35.1 (22.3-36.8) SECONDS Sodium 141 143 (137-145) mmol/L Potassium 4.0 4.1 (3.4-5.0) mmol/L Chloride 106 107 (98-107) mmol/L Carbon Dioxide 28 27 (22-30) mmol/L Anion Gap 7 L 9 (8-16) mmol/L BUN 12 11 (9-20) mg/dL Creatinine 0.80 0.80 (0.7-1.3) mg/dL Estim Creat Clear Calc 125 125 ml/min Estimated GFR > 60 > 60 (59 - ) Glucose 93 105 (65-110) mg/dL Calcium 8.4 8.4 (8.4-10.2) mg/dL Total Bilirubin 1.4 H 1.8 H (0.2-1.3) mg/dL AST 108 H 155 H (17-59) U/L ALT 50 96 H (6-50) U/L Alkaline Phosphatase 92 86 (38-126) U/L Lactate Dehydrogenase 360 H 386 H (120-246) U/L Troponin I < 0.012 (0.000-0.034) ng/mL Total Protein 8.0 8.0 (6.3-8.2) g/dL Albumin 4.4 4.3 (3.5-5.1) g/dL Lipase 73 (23-300) U/L Influenza A (RT-PCR) Negative (Negative) Influenza B (RT-PCR) Negative (Negative) SARS-CoV-2 RNA (RT-PCR) Negative (Negative) 12/31/22 01/01/23 01/02/23 Range/Units 16:26 17:24 06:28 WBC (4.5-10.0) K/mm3 RBC (4.6-6.20) M/mm3 Hgb (14.0-18.0) g/dL Hct (42.0-52.0) % MCV (80-100) fl MCH (26-34) pg MCHC (32-36) g/dl RDW (11.5-14.5) % Plt Count (150-375) k/mm3 MPV (7.4-10.4) fl Immature Gran % (Auto) (0-0.5) % Neut % (Auto) (45.5-73.1) % Lymph % (Auto) (18.3-44.2) % [place] % (Auto) (2.6-8.5) % Eos % (Auto) (0-4.4) % Baso % (Auto) (0.2-1.2) % Lymph # (Auto) (0.9-3.2) K/mm3 [place] # (Auto) (0.1-0.6) K/mm3 Eos # (Auto) (0-0.3) K/mm3 Baso # (Auto) (0.0-0.1) K/mm3 Abs Immat Gran (auto) (0.00-0.031) K/mm3 Absolute Neuts (auto) (1.3-6.7) K/mm3 Absolute Nucleated RBC (0.0-0.012) K/mm3 Nucleated RBC % (0.0-0.2) % Platelet Estimate (Adequate) % Immature Plt Fraction (0.9-11.2) % Poikilocytosis (NORMAL) Sickle Cells (NORMAL) Target Cells (NORMAL) Schistocytes (NORMAL) Absolute Retic (0.02-0.1) M/mm3 Percent Retic (0.7-4.3) % Immature Retic Fraction (3.0-15.9) % Retic Hgb Content (28.2-35.7) pg PT 22.1 H 25.0 H 26.1 H (11.1-14.7) Seconds INR 1.8 2.1 2.2 APTT (22.3-36.8) SECONDS Sodium (137-145) mmol/L Potassium (3.4-5.0) mmol/L Chloride (98-107) mmol/L Carbon Dioxide (22-30) mmol/L Anion Gap (8-16) mmol/L BUN (9-20) mg/dL Creatinine (0.7-1.3) mg/dL Estim Creat Clear Calc ml/min Estimated GFR (59 - ) Glucose (65-110) mg/dL Calcium (8.4-10.2) mg/dL Total Bilirubin (0.2-1.3) mg/dL AST (17-59) U/L ALT (6-50) U/L Alkaline Phosphatase (38-126) U/L Lactate Dehydrogenase (120-246) U/L Troponin I (0.000-0.034) ng/mL Total Protein (6.3-8.2) g/dL Albumin (3.5-5.1) g/dL Lipase (23-300) U/L Influenza A (RT-PCR) (Negative) Influenza B (RT-PCR) (Negative) SARS-CoV-2 RNA (RT-PCR) (Negative) 01/02/23 Range/Units 08:36 WBC 9.8 (4.5-10.0) K/mm3 RBC 3.35 L (4.6-6.20) M/mm3 Hgb 10.5 L (14.0-18.0) g/dL Hct 29.8 L (42.0-52.0) % MCV 89.0 (80-100) fl MCH 31.3 (26-34) pg MCHC 35.2 (32-36) g/dl RDW 14.9 H (11.5-14.5) % Plt Count 330 (150-375) k/mm3 MPV 10.5 H (7.4-10.4) fl Immature Gran % (Auto) 0.3 (0-0.5) % Neut % (Auto) 40.3 L (45.5-73.1) % Lymph % (Auto) 43.8 (18.3-44.2) % [place] % (Auto) 8.5 (2.6-8.5) % Eos % (Auto) 6.2 H (0-4.4) % Baso % (Auto) 0.9 (0.2-1.2) % Lymph # (Auto) 4.28 H (0.9-3.2) K/mm3 [place] # (Auto) 0.8 H (0.1-0.6) K/mm3 Eos # (Auto) 0.6 H (0-0.3) K/mm3 Baso # (Auto) 0.1 (0.0-0.1) K/mm3 Abs Immat Gran (auto) 0.03 (0.00-0.031) K/mm3 Absolute Neuts (auto) 3.9 (1.3-6.7) K/mm3 Absolute Nucleated RBC 0.1 H (0.0-0.012) K/mm3 Nucleated RBC % 0.5 H (0.0-0.2) % Platelet Estimate Adequate (Adequate) % Immature Plt Fraction (0.9-11.2) % Poikilocytosis (NORMAL) Sickle Cells 1+ (NORMAL) Target Cells 2+ (NORMAL) Schistocytes None seen (NORMAL) Absolute Retic (0.02-0.1) M/mm3 Percent Retic (0.7-4.3) % Immature Retic Fraction (3.0-15.9) % Retic Hgb Content (28.2-35.7) pg PT (11.1-14.7) Seconds INR APTT (22.3-36.8) SECONDS Sodium (137-145) mmol/L Potassium (3.4-5.0) mmol/L Chloride (98-107) mmol/L Carbon Dioxide (22-30) mmol/L Anion Gap (8-16) mmol/L BUN (9-20) mg/dL Creatinine (0.7-1.3) mg/dL Estim Creat Clear Calc ml/min Estimated GFR (59 - ) Glucose (65-110) mg/dL Calcium (8.4-10.2) mg/dL Total Bilirubin (0.2-1.3) mg/dL AST (17-59) U/L ALT (6-50) U/L Alkaline Phosphatase (38-126) U/L Lactate Dehydrogenase (120-246) U/L Troponin I (0.000-0.034) ng/mL Total Protein (6.3-8.2) g/dL Albumin (3.5-5.1) g/dL Lipase (23-300) U/L Influenza A (RT-PCR) (Negative) Influenza B (RT-PCR) (Negative) SARS-CoV-2 RNA (RT-PCR) (Negative) Imaging Data Radiologist's impression: ITS Impressions Chest X-Ray 12/30/22 13:39 IMPRESSION: Bibasilar discoid atelectasis or scarring Critical Care Time Critical Care Time Critical Care Time: No Discharge Plan Discharge Clinical Impression: Sickle cell pain crisis Patient Disposition: Still a Patient Condition: Stable
[2022-12-30 12:43] LABS: Basophils Absolute Auto 0.1 K/mm3 (0.0-0.1); Basophils Percent Auto 0.5 % (0.2-1.2); Eosinophils Absolute Auto 0.2 K/mm3 (0-0.3); Hematocrit 28.7 % (42.0-52.0); Hemoglobin 10.2 g/dL (14.0-18.0); Immature Granulocyte Absolute 0.09 K/mm3 (0.00-0.031); Immature Granulocyte Percent A 0.6 % (0-0.5); Immature Platelet Fraction Pct 6.1 % (0.9-11.2); Immature Reticulocyte Fraction 35.2 % (3.0-15.9); Lymphocytes Absolute Auto 4.08 K/mm3 (0.9-3.2); Lymphocytes Percent Auto 25.9 % (18.3-44.2); Mean Corpuscular HGB Conc 35.5 g/dl (32-36); Mean Corpuscular Hemoglobin 31.3 pg (26-34); Mean Platelet Volume 10.2 fl (7.4-10.4); Monocytes Absolute Auto 1.6 K/mm3 (0.1-0.6); Monocytes Percent Auto 10.3 % (2.6-8.5); Neutrophils Absolute Auto 9.7 K/mm3 (1.3-6.7); Neutrophils Percent Auto 61.7 % (45.5-73.1); Nucleated Red Blood Cells Perc 0.3 % (0.0-0.2); Platelet Count Result 284 k/mm3 (150-375); Red Blood Count 3.26 M/mm3 (4.6-6.20); Red Cell Distribution Width 14.6 % (11.5-14.5); Reticulocyte Hemoglobin Conten 30.7 pg (28.2-35.7); Reticulocyte Percent 5.57 % (0.7-4.3); Reticulocytes Absolute 0.18 M/mm3 (0.02-0.1); White Blood Count 15.8 K/mm3 (4.5-10.0)
[2022-12-30] MEDS: diphenhydrAMINE HCl INJ 50 MG/ML VIAL 25 MG IV PUSH (12:46)
[2022-12-30] MEDS: HYDROmorphone HCL INJ (*CRX) 1 MG/ML SYR 2 MG IV PUSH ×3 (12:46→20:36)
[2022-12-30] MEDS: SODIUM CHLORIDE 0.9% IV 1,000 ML 999 ML IV CONT (12:46)
[2022-12-30 12:55] LABS: Alanine Aminotransferase 50 U/L (6-50); Albumin Level 4.4 g/dL (3.5-5.1); Alkaline Phosphatase 92 U/L (38-126); Anion Gap 7 mmol/L (8-16); Aspartate Amino Transferase 108 U/L (17-59); Bilirubin,Total 1.4 mg/dL (0.2-1.3); Blood Urea Nitrogen 12 mg/dL (9-20); Calcium 8.4 mg/dL (8.4-10.2); Carbon Dioxide 28 mmol/L (22-30); Chloride 106 mmol/L (98-107); Estimated CRCL calculation 125 ml/min; Estimated Glomerular Filt Rate > 60; Glucose 93 mg/dL (65-110); INR 1.5; Lipase 73 U/L (23-300); Prothrombin Time 19.3 Seconds (11.1-14.7); Sodium 141 mmol/L (137-145)
[2022-12-30 12:56] LABS: Partial Thromboplastin Time 35.1 SECONDS (22.3-36.8)
[2022-12-30 13:06] LABS: Troponin I < 0.012 ng/mL (0.000-0.034)
[2022-12-30 13:08] LABS: Influenza A QL RT-PCR Negative (Negative); Influenza B QL RT-PCR Negative (Negative); SARS-CoV-2 RNA PCR Negative (Negative)
[2022-12-30 13:09] LABS: Platelet Estimate Adequate (Adequate)
[2022-12-30 13:11] LABS: Sickle Cells 1+ (NORMAL)
[2022-12-30 13:13] LABS: Poikilocytosis 1+ (NORMAL)
[2022-12-30 13:14] LABS: Target Cells 2+ (NORMAL)
[2022-12-30 13:15] LABS: Schistocytes 1+ (NORMAL)
[2022-12-30 14:58] LABS: Lactate Dehydrogenase 360 U/L (120-246)
[2022-12-30 20:28] VITALS: BP 108/56; PULSE 74; RESP 15; O2SAT 100
[2022-12-30 21:24] VITALS: BMI 30.3
--- NOTE | 2022-12-30 21:28 | ADMGEN ---
This patient, Quan Downing, was admitted to [facility] Surg Room 329-01 at 2049. Patient/family oriented to hospital policies and general routines including ID bracelet, bed and alarms, visiting hours, pain management, procedures, bathroom and other care routines, personal items, smoking policy, room service/diet, and visiting hours. Information on how to activate the Rapid Response Team has been discussed. Patient/Family are encouraged to report perceived risks to care and to ask questions if they do not understand what they are told or what they should do.
[2022-12-30 21:30] VITALS: BP 130/75; PULSE 99; RESP 18; TEMP 36.4; O2SAT 95
[2022-12-30] MEDS: HYDROmorphone HCL INJ (*CRX) 2 MG/ML VIAL 3 MG IV PUSH (21:46)
--- NOTE | 2022-12-30 23:59 | P.HP_ITS ---
H&P: HPI History of Present Illness Date/Time: 12/30/22 19:15 Chief Complaint: Pain. 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 The patient provides the following history. He has daily pain related to his sickle cell disease for which he takes methadone 10 mg t.i.d.. He does have oxycodone 10-325 mg available as needed for breakthrough pain. Over the last 5 days or so he has had increasing pain from baseline without much benefit from his oxycodone. He was also unable to get his methadone revealed due to issues with the prescription and he has been off of that as well. Ibuprofen does not help much either. His pain is mostly in the back and legs and somewhat in the ribs. He denies fever, chills, sweats, chest pain, pleuritic pain, shortness a breath nausea, vomiting, and diarrhea. He did have cold symptoms a couple weeks ago but that has since resolved. He was hydrated and received IV pain medications in the ED without longstanding relief and he is being admitted in this setting for further pain control. Labs today were significant for hemoglobin of 10.2, percent retic 5.57%, total bilirubin 1.4, LDH 360. He tested negative for influenza and COVID. Chest x-ray showed bibasilar discoid atelectasis or scarring. Review of Systems Review of Systems: Twelve systems were reviewed and are negative except for as per HPI. [facility] Past Medical History Medical History Acute chest syndrome Chronic anticoagulation Due to history of DVT and pulmonary embolism. Chronic narcotic use On methadone with oxycodone for chronic pain related to sickle cell disease. 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 Deep venous thrombosis Noncompliance History of noncompliance with anticoagulation and hydroxyurea. Pulmonary embolism Sickle cell disease, type SC Surgical History Surgical History History of hand surgery Tendon surgery on right 5th finger. Family History Family History Grandparent Diabetes mellitus Acute myocardial infarction Sibling Asthma Sibling Asthma Mother Hypertension Sickle cell trait Son Sickle cell trait Daughter Sickle cell trait Grandparent No problems noted. Other Diabetes mellitus Father Sickle cell trait Social History Social History Social History: The patient lives in [place] with his family. He is on disability due to sickle cell disease and chronic pain. He is a lifelong nonsmoker and denies alcohol and illicit substance abuse. He uses marijuana to help with pain. He designates Jolly Zuniga (mother) or Keyla Luther (friend) as his surrogate decision makers and he wishes to be a full code. Smoking status: Current some day smoker Second hand tobacco smoke exposure: No Additional smoking assessment comments: Smokes marijuana when pain meds unavailable. Alcohol intake: never Substance use: current Substance use type: marijuana Other substance usage details: For back when he doesn't have any pain meds available. Last use: 12/28/22 Lack of Transportation: No Lack of Food: Never True Current Housing: I Have Housing Concerned About Future Housing: No Difficulty Paying Gas/Electric Bills: No Difficulty Paying for Meds: No Currently Unemployed: No Education: High School Diploma/GED Difficulty w/ Childcare or Family Care: No Living arrangements: with family Occupation/Education: other Spiritual care concerns: No Agree to blood products: Yes Meds Home Medications and Allergies Home Medications Medication Instructions Recorded Confirmed Type folic acid 1 mg tablet 1 mg PO DAILY 02/16/19 12/30/22 History methadone 10 mg tablet 10 mg PO TID 08/22/20 12/30/22 History oxycodone-acetaminophen 10 mg-325 10 tablet PO BID PRN Pain, Moderate 08/22/20 12/30/22 History mg tablet hydroxyurea 500 mg capsule 500 mg PO QAM #30 caps 11/23/21 12/30/22 Rx ibuprofen 800 mg tablet 800 mg PO PRN 12/30/22 12/30/22 History methadone 10 mg tablet 10 mg PO BID 12/30/22 12/30/22 History warfarin 7.5 mg tablet 12 mg PO DAILY 12/30/22 12/30/22 History Allergies Allergy/AdvReac Type Severity Reaction Status Date / Time Fish Containing Products Allergy Mild Itching Verified 09/17/22 12:56 Vital Signs Vital Signs - 24 hr 12/30/22 20:28 12/30/22 22:27 12/30/22 21:30 Temperature 97.5 F L Pulse Rate 74 99 Respiratory Rate 15 18 Blood Pressure 108/56 L 130/75 Pulse Oximetry 100 95 Oxygen Delivery Room Air Exam Narrative: General:?Nontoxic-appearing male sitting up in bed in moderate pain. Weight: 96 kg. BMI: 30.4. HEENT:?PERRL, EOMI. Sclera anicteric. Conjunctiva mildly injected. Oral mucosa is moist. Neck:??Supple. No lymphadenopathy. Respiratory:?Lungs are clear to auscultation bilaterally. Cardiovascular:??Regular rate and rhythm with S1-S2. Gastrointestinal:??Abdomen is soft, nontender, and nondistended with positive bowel sounds. Skin:??Warm and dry.? No rash or lesions on limited exam. Extremities:??No cyanosis, clubbing, or edema. Radial and pedal pulses intact. Neurological:??Alert.? Cranial nerves 2-12 are grossly intact. No gross focal deficits to casual conversation. Psychiatric:?Pleasant and cooperative with appropriate mood and affect. H&P: Results Labs Labs: Short CBC 12/30/22 Range/Units 12:35 WBC 15.8 H (4.5-10.0) K/mm3 Hgb 10.2 L (14.0-18.0) g/dL Hct 28.7 L (42.0-52.0) % Plt Count 284 (150-375) k/mm3 [facility] 12/30/22 12:35 Sodium 141 Potassium 4.0 Chloride 106 Carbon Dioxide 28 BUN 12 Creatinine 0.80 Glucose 93 Calcium 8.4 Cardiac Enzymes 12/30/22 Range/Units 12:35 Troponin I < 0.012 (0.000-0.034) ng/mL Liver Function 12/30/22 Range/Units 12:35 Total Bilirubin 1.4 H (0.2-1.3) mg/dL AST 108 H (17-59) U/L ALT 50 (6-50) U/L Alkaline Phosphatase 92 (38-126) U/L Albumin 4.4 (3.5-5.1) g/dL Impressions Chest X-Ray 12/30/22 13:39 IMPRESSION: Bibasilar discoid atelectasis or scarring Assessment and Plan Assessment and plan (1) Sickle cell pain crisis: Code(s): D57.00 - Hb-SS disease with crisis, unspecified Status: Acute (2) Sickle cell disease, type SC: Qualifiers: Sickle-cell associated disorders: without crisis Qualified Code(s): D57.20 - Sickle-cell/Hb-C disease without crisis Code(s): D57.20 - Sickle-cell/Hb-C disease without crisis Status: Chronic (3) Chronic anticoagulation: Code(s): Z79.01 - assisted (current) use of anticoagulants Status: Chronic (4) Subtherapeutic international normalized ratio (INR): Code(s): R79.1 - Abnormal coagulation profile Status: Acute (5) Chronic narcotic use: Code(s): F11.90 - Opioid use, unspecified, uncomplicated Status: Chronic Plan The patient presented to the emergency department for evaluation of acute on chronic pain for the last 5 days or so as detailed in HPI. Labs, imaging, EKG, and all reports were personally reviewed. He is on 10 mg methadone 3 times a day but has been out of that for several days due to issues with his prescription. He does have oxycodone as needed for breakthrough pain however that has not been managing his discomfort. He continues to have uncontrollable pain despite receiving IV fluids and IV narcotics in the emergency department and he is being admitted in this setting for continued hydration and pain control. Hemoglobin hematocrit are stable. Dilaudid 3 mg q.3 hours has been ordered as this is typically what he requires to control his pain. Ibuprofen 800 mg t.i.d. is also available as needed which seems to help him sometimes. Warfarin is subtherapeutic and I will give him a higher dose of warfarin this evening and repeat INR tomorrow morning. The rest of his home medications will be reviewed and resumed as appropriate. Quality VTE Prophylaxis VTE prophylaxis: pharmacologic ordered (on warfarin) The patient has been admitted under observation status.
[2022-12-31] MEDS: WARFARIN (*PBKC) 4 MG TABLET 12 MG PO (00:31)
[2022-12-31] MEDS: HYDROmorphone HCL INJ (*CRX) 2 MG/ML VIAL 3 MG IV PUSH ×4 (00:33→12:38)
[2022-12-31 02:22] LABS: Basophils Absolute Auto 0.1 K/mm3 (0.0-0.1); Basophils Percent Auto 0.9 % (0.2-1.2); Eosinophils Absolute Auto 0.3 K/mm3 (0-0.3); Eosinophils Percent Auto 2.3 % (0-4.4); Hematocrit 28.8 % (42.0-52.0); Hemoglobin 10.2 g/dL (14.0-18.0); Immature Granulocyte Absolute 0.05 K/mm3 (0.00-0.031); Immature Granulocyte Percent A 0.4 % (0-0.5); Lymphocytes Absolute Auto 5.01 K/mm3 (0.9-3.2); Lymphocytes Percent Auto 36.9 % (18.3-44.2); Mean Corpuscular HGB Conc 35.4 g/dl (32-36); Mean Corpuscular Hemoglobin 31.4 pg (26-34); Mean Corpuscular Volume 88.6 fl (80-100); Mean Platelet Volume 10.6 fl (7.4-10.4); Monocytes Absolute Auto 1.4 K/mm3 (0.1-0.6); Monocytes Percent Auto 10.1 % (2.6-8.5); Neutrophils Absolute Auto 6.7 K/mm3 (1.3-6.7); Neutrophils Percent Auto 49.4 % (45.5-73.1); Nucleated Red Blood Cells Perc 0.2 % (0.0-0.2); Platelet Count Result 273 k/mm3 (150-375); Red Blood Count 3.25 M/mm3 (4.6-6.20); Red Cell Distribution Width 14.7 % (11.5-14.5); White Blood Count 13.6 K/mm3 (4.5-10.0)
[2022-12-31 02:36] LABS: INR 1.5; Prothrombin Time 19.4 Seconds (11.1-14.7)
[2022-12-31 02:55] LABS: Alanine Aminotransferase 96 U/L (6-50); Albumin Level 4.3 g/dL (3.5-5.1); Alkaline Phosphatase 86 U/L (38-126); Anion Gap 9 mmol/L (8-16); Aspartate Amino Transferase 155 U/L (17-59); Bilirubin,Total 1.8 mg/dL (0.2-1.3); Blood Urea Nitrogen 11 mg/dL (9-20); Calcium 8.4 mg/dL (8.4-10.2); Carbon Dioxide 27 mmol/L (22-30); Chloride 107 mmol/L (98-107); Estimated CRCL calculation 125 ml/min; Estimated Glomerular Filt Rate > 60; Glucose 105 mg/dL (65-110); Lactate Dehydrogenase 386 U/L (120-246); Potassium 4.1 mmol/L (3.4-5.0); Sodium 143 mmol/L (137-145)
[2022-12-31 06:00] VITALS: BP 111/71; PULSE 78; RESP 16; TEMP 36.7; O2SAT 97
[2022-12-31] MEDS: HYDROXYUREA (*CHEMO) 500 MG CAPSULE PO (08:35)
[2022-12-31] MEDS: FOLIC ACID 1 MG TABLET PO (08:35)
[2022-12-31 14:00] VITALS: BP 116/69; PULSE 86; RESP 20; TEMP 36.3; O2SAT 94
--- NOTE | 2022-12-31 15:33 | PM.IMPN ---
Progress Note: A&P Assessment and Plan (1) Sickle cell pain crisis: Code(s): D57.00 - Hb-SS disease with crisis, unspecified Status: Acute (2) Sickle cell disease, type SC: Qualifiers: Sickle-cell associated disorders: without crisis Qualified Code(s): D57.20 - Sickle-cell/Hb-C disease without crisis Code(s): D57.20 - Sickle-cell/Hb-C disease without crisis Status: Chronic (3) Chronic anticoagulation: Code(s): Z79.01 - half-way (current) use of anticoagulants Status: Chronic (4) Subtherapeutic international normalized ratio (INR): Code(s): R79.1 - Abnormal coagulation profile Status: Acute (5) Chronic narcotic use: Code(s): F11.90 - Opioid use, unspecified, uncomplicated Status: Chronic Plan The patient presented to the emergency department for evaluation of acute on chronic pain for the last 5 days or so as detailed in HPI. Labs, imaging, EKG, and all reports were personally reviewed. He is on 10 mg methadone 3 times a day but has been out of that for several days due to issues with his prescription. He does have oxycodone as needed for breakthrough pain however that has not been managing his discomfort. He continues to have uncontrollable pain despite receiving IV fluids and IV narcotics in the emergency department he is being admitted in this setting for continued hydration and pain control. Hemoglobin hematocrit are stable. Ibuprofen 800 mg t.i.d. is also available as needed which seems to help him sometimes. Warfarin is subtherapeutic and I will give him a higher dose of warfarin this evening and repeat INR tomorrow morning. 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 The patient provides the following history.? He has daily pain related to his sickle cell disease for which he takes methadone 10 mg t.i.d.. He does have oxycodone 10-325 mg available as needed for breakthrough pain. Over the last 5 days or so he has had increasing pain from baseline without much benefit from his oxycodone Review of Systems Review of Systems: Ongoing R leg pains neck and low back pain is better Exam Narrative: General:?Nontoxic-appearing male sitting up in bed in moderate pain. Neck:??Supple. No lymphadenopathy. Respiratory:?Lungs are clear to auscultation bilaterally. Cardiovascular:??Regular rate and rhythm with S1-S2. Gastrointestinal:??Abdomen is soft, nontender, and nondistended with positive bowel sounds. Skin:??Warm and dry.? No rash or lesions on limited exam. Extremities:??No cyanosis, clubbing, or edema. Radial and pedal pulses intact. Neurological:??Alert.? Cranial nerves 2-12 are grossly intact. No gross focal deficits to casual conversation. Psychiatric:?Pleasant and cooperative with appropriate mood and affect. Objective Data Vital Signs Vital Signs: Vital Signs - 24 hr 12/30/22 20:28 12/30/22 22:27 12/30/22 21:30 Temperature 36.4 C L Pulse Rate 74 99 Respiratory Rate 15 18 Blood Pressure 108/56 L 130/75 Pulse Oximetry 100 95 Oxygen Delivery Room Air 12/31/22 06:00 12/31/22 14:00 Temperature 36.7 C 36.3 C L Pulse Rate 78 86 Respiratory Rate 16 20 Blood Pressure 111/71 116/69 Pulse Oximetry 97 94 Oxygen Delivery Intake/Output Intake/Output: Intake & Output 12/28/22 12/29/22 12/30/22 12/31/22 23:59 23:59 23:59 23:59 Intake Total 1000 960 Balance 1000 960 Meds/Results Medications: Active Medications Generic Name Dose Route Start Last Admin Trade Name Freq PRN Reason Stop Dose Admin Diphenhydramine HCl 25 mg 12/30/22 21:07 Diphenhydramine Hcl Inj 50 Mg/Ml Vial IV PUSH Q4H PRN Itching Folic Acid 1 mg 12/31/22 09:00 12/31/22 08:35 Folic Acid 1 Mg Tablet PO 1 mg DAILY CHRISTOPHER Administration Hydromorphone HCl 3 mg 12/30/22 21:05 12/31/22 12:38 Hydromorphone Hcl Inj (*Crx) 2 Mg/Ml Vial IV PUSH 3 mg Q3H PRN Administration Pain Rated 7-10 Hydroxyurea 500 mg 12/31/22 09:00 12/31/22 08:35 Hydroxyurea (*Chemo) 500 Mg Capsule PO 500 mg QAM CHRISTOPHER Administration Ibuprofen 800 mg 12/30/22 21:07 Ibuprofen 400 Mg Tablet PO Q8H PRN Pain Rated 1-3 Warfarin Sodium 12 mg 12/31/22 00:15 12/31/22 00:31 Warfarin (*Pbkc) 4 Mg Tablet PO 12 mg DAILY@1700 [facility] Administration Radiology Results: ITS Impressions Chest X-Ray 12/30/22 13:39 IMPRESSION: Bibasilar discoid atelectasis or scarring Labs Labs: Laboratory Results - last 24 hr 12/31/22 02:05 WBC 13.6 H RBC 3.25 L Hgb 10.2 L Hct 28.8 L MCV 88.6 MCH 31.4 MCHC 35.4 RDW 14.7 H Plt Count 273 MPV 10.6 H Immature Gran % (Auto) 0.4 Neut % (Auto) 49.4 Lymph % (Auto) 36.9 Kidder % (Auto) 10.1 H Eos % (Auto) 2.3 Baso % (Auto) 0.9 Lymph # (Auto) 5.01 H Kidder # (Auto) 1.4 H Eos # (Auto) 0.3 Baso # (Auto) 0.1 Abs Immat Gran (auto) 0.05 H Absolute Neuts (auto) 6.7 Absolute Nucleated RBC 0.0 Nucleated RBC % 0.2 PT 19.4 H INR 1.5 Sodium 143 Potassium 4.1 Chloride 107 Carbon Dioxide 27 Anion Gap 9 BUN 11 Creatinine 0.80 Estim Creat Clear Calc 125 Estimated GFR > 60 Glucose 105 Calcium 8.4 Total Bilirubin 1.8 H AST 155 H ALT 96 H Alkaline Phosphatase 86 Lactate Dehydrogenase 386 H Total Protein 8.0 Albumin 4.3
[2022-12-31] MEDS: HYDROmorphone HCL INJ (*CRX) 2 MG/ML VIAL IV PUSH (16:51)
[2022-12-31] MEDS: WARFARIN (*PBKC) 7.5 MG TABLET PO (16:52)
[2022-12-31 17:48] LABS: INR 1.8; Prothrombin Time 22.1 Seconds (11.1-14.7)
--- NOTE | 2022-12-31 19:16 | P.CONONC_ITS ---
HPI - Date of Consult Date/Time: 12/31/22 19:16 Requesting Physician: Elyse Simon MD Primary Care Provider: Jone Marks MD - Consult Narrative Reason for consult: Sickle cell crisis Narrative: Quan Downing is a 37 year old male with history of hemoglobin SC disease and recurrent sickle cell crisis. Patient has a history of pulmonary embolism and long-term anticoagulation with warfarin. He has been taking hydroxyurea. He is also on home pain medicine including methadone twice a day with hydrocodone for pain control. He came into the hospital with bilateral lower extremity and upper back pain refractory to home pain medication. He denies any fevers and chills. Denies any cough and sore throat. Chest x-ray showed bibasilar discoid atelectasis or scarring. Labs showed hemoglobin of 10.2 with elevated retic 5.57 and LDH of 360. He was started on Dilaudid 3 mg every 3 hours with IV hydration with improvement in the pain control. INR was 1.5 on admission. He has been taking Coumadin 12 mg daily. He denies any other new complaints. Review of Systems - Review of Systems All systems reviewed & are unremarkable except as noted in HPI and [facility] Medical History: Medical History (Last Reviewed 12/31/22 @ 00:06 by Kimberlee Santamaria PA-C) Acute chest syndrome Chronic anticoagulation Due to history of DVT and pulmonary embolism. Chronic narcotic use On methadone with oxycodone for chronic pain related to sickle cell disease. 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 Deep venous thrombosis Noncompliance History of noncompliance with anticoagulation and hydroxyurea. Pulmonary embolism Sickle cell disease, type SC Surgical History: Surgical History (Last Reviewed 12/31/22 @ 00:06 by Kimberlee Santamaria PA-C) History of hand surgery Tendon surgery on right 5th finger. Family History: Family History (Last Reviewed 12/31/22 @ 00:06 by Kimberlee Santamaria PA-C) Grandparent Diabetes mellitus Acute myocardial infarction Sibling Asthma Sibling Asthma Mother Hypertension Sickle cell trait Son Sickle cell trait Daughter Sickle cell trait Grandparent No problems noted. Other Diabetes mellitus Father Sickle cell trait - Social History Social History: Social History (Last Updated 12/31/22 @ 00:07 by Kimberlee Santamaria PA-C) Alcohol Use: Alcohol intake: never Substance Use: Substance use: current Substance use type: marijuana Other substance usage details: For back when he doesn't have any pain meds available. Last use: 12/28/22 Others: Spiritual care concerns: No Agree to blood products: Yes Living Arrangements: Living arrangements: with family Oppucation/Education: Occupation/Education: other Smoking Status: Smoking status: Current some day smoker Second hand tobacco smoke exposure: No Comments: Additional smoking assessment comments: Smokes marijuana when pain meds unavailable. Social Determinants of Health: Has the Lack of Transportation Kept You From Medical Appointments or From Getting Medications?: No Within the Past 12 Months, Were You Worried Whether Your Food Would Run Out Before You Got Money to Buy More?: Never True What is Your Housing Situation Today?: I Have Housing Are You Worried That in the Next 2 Months, You May Not Have Your Own Housing to Live In?: No Do You Have Trouble Paying Your Heating Or Electricity Bill?: No Do You Have Trouble Paying For Medicines?: No Are You Currently Unemployed and Looking for Work?: No Highest Level of Education Completed: High School Diploma/GED Do You Have Trouble With Childcare or the Care of a Family Member?: No Exam - Vital Signs Vital Signs - 24 hr 12/30/22 20:28 12/30/22 22:27 12/30/22 21:30 Temperature 36.4 C L Pulse Rate 74 99 Respiratory Rate 15 18 Blood Pressure 108/56 L 130/75 Pulse Oximetry 100 95 Oxygen Delivery Room Air 12/31/22 06:00 12/31/22 14:00 Temperature 36.7 C 36.3 C L Pulse Rate 78 86 Respiratory Rate 16 20 Blood Pressure 111/71 116/69 Pulse Oximetry 97 94 Oxygen Delivery - Exam HEENT: EOMI, PERRLA Neck: supple. No: JVD Lungs: clear to auscultation, normal air movement, decrease breath sounds Heart: no murmurs, gallops, or rubs, regular rhythm, regular rate Abdomen: abdomen soft, non-distended, normal bowel sounds Extremities: normal pulses Integumentary: no abnormalities (Complain of bilateral lower extremity and pelvic pain) Neurological: normal speech Psychological: mental status NL - Lab Results Laboratory Last Values WBC 13.6 K/mm3 (4.5-10.0) H 12/31/22 02:05 RBC 3.25 M/mm3 (4.6-6.20) L 12/31/22 02:05 Hgb 10.2 g/dL (14.0-18.0) L 12/31/22 02:05 Hct 28.8 % (42.0-52.0) L 12/31/22 02:05 MCV 88.6 fl (80-100) 12/31/22 02:05 MCH 31.4 pg (26-34) 12/31/22 02:05 MCHC 35.4 g/dl (32-36) 12/31/22 02:05 RDW 14.7 % (11.5-14.5) H 12/31/22 02:05 Plt Count 273 k/mm3 (150-375) 12/31/22 02:05 MPV 10.6 fl (7.4-10.4) H 12/31/22 02:05 Immature Gran % (Auto) 0.4 % (0-0.5) 12/31/22 02:05 Neut % (Auto) 49.4 % (45.5-73.1) 12/31/22 02:05 Lymph % (Auto) 36.9 % (18.3-44.2) 12/31/22 02:05 Grainger % (Auto) 10.1 % (2.6-8.5) H 12/31/22 02:05 Eos % (Auto) 2.3 % (0-4.4) 12/31/22 02:05 Baso % (Auto) 0.9 % (0.2-1.2) 12/31/22 02:05 Lymph # (Auto) 5.01 K/mm3 (0.9-3.2) H 12/31/22 02:05 Grainger # (Auto) 1.4 K/mm3 (0.1-0.6) H 12/31/22 02:05 Eos # (Auto) 0.3 K/mm3 (0-0.3) 12/31/22 02:05 Baso # (Auto) 0.1 K/mm3 (0.0-0.1) 12/31/22 02:05 Abs Immat Gran (auto) 0.05 K/mm3 (0.00-0.031) H 12/31/22 02:05 Absolute Neuts (auto) 6.7 K/mm3 (1.3-6.7) 12/31/22 02:05 Absolute Nucleated RBC 0.0 K/mm3 (0.0-0.012) 12/31/22 02:05 Nucleated RBC % 0.2 % (0.0-0.2) 12/31/22 02:05 Platelet Estimate Adequate (Adequate) 12/30/22 12:35 % Immature Plt Fraction 6.1 % (0.9-11.2) 12/30/22 12:35 Poikilocytosis 1+ (NORMAL) 12/30/22 12:35 Sickle Cells 1+ (NORMAL) 12/30/22 12:35 Target Cells 2+ (NORMAL) 12/30/22 12:35 Schistocytes 1+ (NORMAL) 12/30/22 12:35 Absolute Retic 0.18 M/mm3 (0.02-0.1) H 12/30/22 12:35 Percent Retic 5.57 % (0.7-4.3) H 12/30/22 12:35 Immature Retic Fraction 35.2 % (3.0-15.9) H 12/30/22 12:35 Retic Hgb Content 30.7 pg (28.2-35.7) 12/30/22 12:35 PT 22.1 Seconds (11.1-14.7) H 12/31/22 16:26 INR 1.8 12/31/22 16:26 APTT 35.1 SECONDS (22.3-36.8) 12/30/22 12:35 Sodium 143 mmol/L (137-145) 12/31/22 02:05 Potassium 4.1 mmol/L (3.4-5.0) 12/31/22 02:05 Chloride 107 mmol/L (98-107) 12/31/22 02:05 Carbon Dioxide 27 mmol/L (22-30) 12/31/22 02:05 Anion Gap 9 mmol/L (8-16) 12/31/22 02:05 BUN 11 mg/dL (9-20) 12/31/22 02:05 Creatinine 0.80 mg/dL (0.7-1.3) 12/31/22 02:05 Estim Creat Clear Calc 125 ml/min 12/31/22 02:05 Estimated GFR > 60 (59-) 12/31/22 02:05 Glucose 105 mg/dL (65-110) 12/31/22 02:05 Calcium 8.4 mg/dL (8.4-10.2) 12/31/22 02:05 Total Bilirubin 1.8 mg/dL (0.2-1.3) H 12/31/22 02:05 AST 155 U/L (17-59) H 12/31/22 02:05 ALT 96 U/L (6-50) H 12/31/22 02:05 Alkaline Phosphatase 86 U/L (38-126) 12/31/22 02:05 Lactate Dehydrogenase 386 U/L (120-246) H 12/31/22 02:05 Troponin I < 0.012 ng/mL (0.000-0.034) 12/30/22 12:35 Total Protein 8.0 g/dL (6.3-8.2) 12/31/22 02:05 Albumin 4.3 g/dL (3.5-5.1) 12/31/22 02:05 Lipase 73 U/L (23-300) 12/30/22 12:35 Influenza A (RT-PCR) Negative (Negative) 12/30/22 12:28 Influenza B (RT-PCR) Negative (Negative) 12/30/22 12:28 SARS-CoV-2 RNA (RT-PCR) Negative (Negative) 12/30/22 12:28 Meds Home Medications Medication Instructions Recorded Confirmed Type folic acid 1 mg tablet 1 mg PO DAILY 02/16/19 12/30/22 History methadone 10 mg tablet 10 mg PO TID 08/22/20 12/30/22 History oxycodone-acetaminophen 10 mg-325 10 tablet PO BID PRN Pain, Moderate 08/22/20 12/30/22 History mg tablet hydroxyurea 500 mg capsule 500 mg PO QAM #30 caps 11/23/21 12/30/22 Rx ibuprofen 800 mg tablet 800 mg PO PRN 12/30/22 12/30/22 History methadone 10 mg tablet 10 mg PO BID 12/30/22 12/30/22 History warfarin 7.5 mg tablet 12 mg PO DAILY 12/30/22 12/30/22 History Allergies Allergy/AdvReac Type Severity Reaction Status Date / Time Fish Containing Products Allergy Mild Itching Verified 09/17/22 12:56 Results - Labs CBC & Chem 7: 12/31/22 02:05 12/31/22 02:05 Labs: Short CBC 12/31/22 Range/Units 02:05 WBC 13.6 H (4.5-10.0) K/mm3 Hgb 10.2 L (14.0-18.0) g/dL Hct 28.8 L (42.0-52.0) % Plt Count 273 (150-375) k/mm3 BMP 12/31/22 02:05 Sodium 143 Potassium 4.1 Chloride 107 Carbon Dioxide 27 BUN 11 Creatinine 0.80 Glucose 105 Calcium 8.4 Liver Function 12/31/22 Range/Units 02:05 Total Bilirubin 1.8 H (0.2-1.3) mg/dL AST 155 H (17-59) U/L ALT 96 H (6-50) U/L Alkaline Phosphatase 86 (38-126) U/L Albumin 4.3 (3.5-5.1) g/dL Assessment and Plan - Additional Plan Sickle cell crisis with history of hemoglobin SC disease. Patient was admitted with typical symptoms sickle cell crisis. Labs showed elevated retic count and LDH consistent with sickle cell crisis. He has been started on IV fluid with D ilaudid 3 mg every 3 hours with improvement in his pain control. He will continue hydroxyurea twice a day with folic acid. He will be discharged home on methadone with hydrocortisone. In the meantime will continue Dilaudid 2 mg every 3 hours. Hopefully he will be ready to be discharged home in next 48 hours. Recurrent pulmonary embolism. INR is 1.8. Continue warfarin 12 mg daily.
[2022-12-31 22:00] VITALS: BP 114/74; PULSE 95; RESP 16; TEMP 36.2; O2SAT 96
[2022-12-31] MEDS: HYDROmorphone HCL INJ (*CRX) 1 MG/ML SYR 2 MG IV PUSH (22:00)
[2023-01-01] MEDS: HYDROmorphone HCL INJ (*CRX) 1 MG/ML SYR 2 MG IV PUSH ×6 (01:15→22:00)
[2023-01-01] MEDS: diphenhydrAMINE HCl INJ 50 MG/ML VIAL 25 MG IV PUSH ×3 (01:15→21:59)
[2023-01-01 06:00] VITALS: BP 107/77; PULSE 80; RESP 16; TEMP 36.1; O2SAT 93
[2023-01-01] MEDS: FOLIC ACID 1 MG TABLET PO (08:51)
[2023-01-01] MEDS: HYDROXYUREA (*CHEMO) 500 MG CAPSULE PO (08:51)
[2023-01-01 09:14] VITALS: O2SAT 91
[2023-01-01 14:00] VITALS: BP 132/82; PULSE 83; RESP 17; TEMP 36.3; O2SAT 97
--- NOTE | 2023-01-01 14:10 | P.PNIM_ITS ---
Progress Note: A&P Assessment and Plan (1) Sickle cell pain crisis: Code(s): D57.00 - Hb-SS disease with crisis, unspecified Status: Acute (2) Sickle cell disease, type SC: Qualifiers: Sickle-cell associated disorders: without crisis Qualified Code(s): D57.20 - Sickle-cell/Hb-C disease without crisis Code(s): D57.20 - Sickle-cell/Hb-C disease without crisis Status: Chronic (3) Chronic anticoagulation: Code(s): Z79.01 - skilled nursing (current) use of anticoagulants Status: Chronic (4) Subtherapeutic international normalized ratio (INR): Code(s): R79.1 - Abnormal coagulation profile Status: Acute (5) Chronic narcotic use: Code(s): F11.90 - Opioid use, unspecified, uncomplicated Status: Chronic Plan The patient presented to the emergency department for evaluation of acute on chronic pain for the last 5 days or so as detailed in HPI. Labs, imaging, EKG, and all reports were personally reviewed. He is on 10 mg methadone 3 times a day but has been out of that for several days due to issues with his prescription. He does have oxycodone as needed for breakthrough pain however that has not been managing his discomfort. He continues to have uncontrollable pain despite r eceiving IV fluids and IV narcotics in the emergency department he is being admitted in this setting for continued hydration and pain control. Hemoglobin hematocrit are stable. Ibuprofen 800 mg t.i.d. is also available as needed which seems to help him sometimes. Warfarin is subtherapeutic and I will give him a higher dose of warfarin this evening and repeat INR tomorrow morning. 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 The patient provides the following history.? He has daily pain related to his sickle cell disease for which he takes methadone 10 mg t.i.d.. He does have oxycodone 10-325 mg available as needed for breakthrough pain. Over the last 5 days or so he has had increasing pain from baseline without much benefit from his oxycodone Pt admitted with sickle cell pain crisis mentions that his Right leg is sore and painful continue iv dilaudid for pain Review of Systems Review of Systems: leg pains Exam Narrative: General:?Nontoxic-appearing male sitting up in bed in moderate pain. Neck:??Supple. No lymphadenopathy. Respiratory:?Lungs are clear to auscultation bilaterally. Cardiovascular:??Regular rate and rhythm with S1-S2. Gastrointestinal:??Abdomen is soft, nontender, and nondistended with positive bowel sounds. Skin:??Warm and dry.? No rash or lesions on limited exam. Extremities:??No cyanosis, clubbing, or edema. Radial and pedal pulses intact. Neurological:??Alert.? Cranial nerves 2-12 are grossly intact. No gross focal deficits to casual conversation. Psychiatric:?Pleasant and cooperative with appropriate mood and affect. Objective Data Vital Signs Vital Signs: Vital Signs - 24 hr 12/31/22 22:00 12/31/22 20:00 01/01/23 06:00 Temperature 36.2 C L 36.1 C L Pulse Rate 95 80 Respiratory Rate 16 16 Blood Pressure 114/74 107/77 Pulse Oximetry 96 93 Oxygen Delivery Room Air 01/01/23 09:14 Temperature Pulse Rate Respiratory Rate Blood Pressure Pulse Oximetry 91 Oxygen Delivery Room Air Intake/Output Intake/Output: Intake & Output 12/29/22 12/30/22 12/31/22 01/01/23 23:59 23:59 23:59 23:59 Intake Total 1000 2200 540 Output Total 1050 Balance 1000 2200 -510 Meds/Results Medications: Active Medications Generic Name Dose Route Start Last Admin Trade Name Freq PRN Reason Stop Dose Admin Diphenhydramine HCl 25 mg 12/30/22 21:07 01/01/23 08:52 Diphenhydramine Hcl Inj 50 Mg/Ml Vial IV PUSH 25 mg Q4H PRN Administration Itching Folic Acid 1 mg 12/31/22 09:00 01/01/23 08:51 Folic Acid 1 Mg Tablet PO 1 mg DAILY CHRISTOPHER Administration Hydromorphone HCl 2 mg 12/31/22 19:56 01/01/23 12:03 Hydromorphone Hcl Inj (*Crx) 1 Mg/Ml Syr IV PUSH 2 mg Q3HR PRN Administration pain 7-10 Hydroxyurea 500 mg 12/31/22 09:00 01/01/23 08:51 Hydroxyurea (*Chemo) 500 Mg Capsule PO 500 mg QAM CHRISTOPHER Administration Ibuprofen 800 mg 12/30/22 21:07 Ibuprofen 400 Mg Tablet PO Q8H PRN Pain Rated 1-3 Warfarin Sodium 7.5 mg 12/31/22 17:00 12/31/22 16:52 Warfarin (*Pbkc) 7.5 Mg Tablet PO 7.5 mg DAILY@1700 [facility] Administration Radiology Results: ITS Impressions Chest X-Ray 12/30/22 13:39 IMPRESSION: Bibasilar discoid atelectasis or scarring Labs Labs: Laboratory Results - last 24 hr 12/31/22 16:26 PT 22.1 H INR 1.8
[2023-01-01] MEDS: WARFARIN (*PBKC) 7.5 MG TABLET PO (16:26)
[2023-01-01 17:46] LABS: INR 2.1
[2023-01-01 21:35] VITALS: BP 113/77; PULSE 90; RESP 22; TEMP 36.3; O2SAT 98
[2023-01-02] MEDS: HYDROmorphone HCL INJ (*CRX) 1 MG/ML SYR 2 MG IV PUSH ×7 (01:27→21:29)
[2023-01-02] MEDS: diphenhydrAMINE HCl INJ 50 MG/ML VIAL 25 MG IV PUSH ×2 (05:42→21:30)
[2023-01-02 06:00] VITALS: BP 122/77; PULSE 77; RESP 20; TEMP 36.2; O2SAT 96
[2023-01-02 07:00] LABS: INR 2.2; Prothrombin Time 26.1 Seconds (11.1-14.7)
[2023-01-02] MEDS: HYDROXYUREA (*CHEMO) 500 MG CAPSULE PO (08:09)
[2023-01-02] MEDS: FOLIC ACID 1 MG TABLET PO (08:09)
[2023-01-02 08:42] LABS: Basophils Absolute Auto 0.1 K/mm3 (0.0-0.1); Basophils Percent Auto 0.9 % (0.2-1.2); Eosinophils Absolute Auto 0.6 K/mm3 (0-0.3); Eosinophils Percent Auto 6.2 % (0-4.4); Hematocrit 29.8 % (42.0-52.0); Hemoglobin 10.5 g/dL (14.0-18.0); Immature Granulocyte Absolute 0.03 K/mm3 (0.00-0.031); Immature Granulocyte Percent A 0.3 % (0-0.5); Lymphocytes Absolute Auto 4.28 K/mm3 (0.9-3.2); Lymphocytes Percent Auto 43.8 % (18.3-44.2); Mean Corpuscular HGB Conc 35.2 g/dl (32-36); Mean Corpuscular Hemoglobin 31.3 pg (26-34); Mean Platelet Volume 10.5 fl (7.4-10.4); Monocytes Absolute Auto 0.8 K/mm3 (0.1-0.6); Monocytes Percent Auto 8.5 % (2.6-8.5); Neutrophils Absolute Auto 3.9 K/mm3 (1.3-6.7); Neutrophils Percent Auto 40.3 % (45.5-73.1); Nucleated Red Blood Cells Absolute Auto 0.1 K/mm3 (0.0-0.012); Nucleated Red Blood Cells Perc 0.5 % (0.0-0.2); Platelet Count Result 330 k/mm3 (150-375); Red Blood Count 3.35 M/mm3 (4.6-6.20); Red Cell Distribution Width 14.9 % (11.5-14.5); White Blood Count 9.8 K/mm3 (4.5-10.0)
[2023-01-02 09:03] LABS: Platelet Estimate Adequate (Adequate); Sickle Cells 1+ (NORMAL); Target Cells 2+ (NORMAL)
[2023-01-02 09:04] LABS: Schistocytes None Seen (NORMAL)
--- NOTE | 2023-01-02 11:16 | P.PNIM_ITS ---
Progress Note: A&P Assessment and Plan (1) Sickle cell pain crisis: Code(s): D57.00 - Hb-SS disease with crisis, unspecified Status: Acute (2) Sickle cell disease, type SC: Qualifiers: Sickle-cell associated disorders: without crisis Qualified Code(s): D57.20 - Sickle-cell/Hb-C disease without crisis Code(s): D57.20 - Sickle-cell/Hb-C disease without crisis Status: Chronic (3) Chronic anticoagulation: Code(s): Z79.01 - terminal worker (current) use of anticoagulants Status: Chronic (4) Subtherapeutic international normalized ratio (INR): Code(s): R79.1 - Abnormal coagulation profile Status: Acute (5) Chronic narcotic use: Code(s): F11.90 - Opioid use, unspecified, uncomplicated Status: Chronic Plan The patient presented to the emergency department for evaluation of acute on chronic pain for the last 5 days or so as detailed in HPI. Labs, imaging, EKG, and all reports were personally reviewed. He is on 10 mg methadone 3 times a day but has been out of that for several days due to issues with his prescription. He does have oxycodone as needed for breakthrough pain however that has not been managing his discomfort. He continues to have uncontrollable pain despite r eceiving IV fluids and IV narcotics in the emergency department and he is being admitted in this setting for continued hydration and pain control. Hemoglobin hematocrit are stable. Dilaudid 3 mg q.3 hours has been ordered as this is typically what he requires to control his pain. Ibuprofen 800 mg t.i.d. is also available as needed which seems to help him sometimes. Warfarin is subtherapeutic and I will give him a higher dose of warfarin this evening and repeat INR tomorrow morning. The rest of his home medications will be reviewed and resumed as appropriate. Subjective Date/time seen: 01/02/23 11:16 Interval history: no new complaint pain is somewhat better Exam Narrative: General:?Nontoxic-appearing male sitting up in bed in moderate pain. Neck:??Supple. No lymphadenopathy. Respiratory:?Lungs are clear to auscultation bilaterally. Cardiovascular:??Regular rate and rhythm with S1-S2. Gastrointestinal:??Abdomen is soft, nontender, and nondistended with positive bowel sounds. Skin:??Warm and dry.? No rash or lesions on limited exam. Extremities:??No cyanosis, clubbing, or edema. Radial and pedal pulses intact. Neurological:??Alert.? Cranial nerves 2-12 are grossly intact. No gross focal deficits to casual conversation. Psychiatric:?Pleasant and cooperative with appropriate mood and affect. Objective Data Vital Signs Vital Signs: Vital Signs - 24 hr 01/01/23 14:00 01/01/23 21:35 01/01/23 20:00 Temperature 97.4 F L 97.3 F L Pulse Rate 83 90 Respiratory Rate 17 22 H Blood Pressure 132/82 113/77 Pulse Oximetry 97 98 Oxygen Delivery Room Air 01/02/23 06:00 Temperature 97.1 F L Pulse Rate 77 Respiratory Rate 20 Blood Pressure 122/77 Pulse Oximetry 96 Oxygen Delivery Intake/Output Intake/Output: Intake & Output 12/30/22 12/31/22 01/01/23 01/02/23 23:59 23:59 23:59 23:59 Intake Total 1000 2200 900 950 Output Total 1800 1100 Balance 1000 2200 -900 -150 Meds/Results Medications: Active Medications Generic Name Dose Route Start Last Admin Trade Name Freq PRN Reason Stop Dose Admin Diphenhydramine HCl 25 mg 12/30/22 21:07 01/02/23 05:42 Diphenhydramine Hcl Inj 50 Mg/Ml Vial IV PUSH 25 mg Q4H PRN Administration Itching Folic Acid 1 mg 12/31/22 09:00 01/02/23 08:09 Folic Acid 1 Mg Tablet PO 1 mg DAILY CHRISTOPHER Administration Hydromorphone HCl 2 mg 12/31/22 19:56 01/02/23 11:07 Hydromorphone Hcl Inj (*Crx) 1 Mg/Ml Syr IV PUSH 2 mg Q3HR PRN Administration pain 7-10 Hydroxyurea 500 mg 12/31/22 09:00 01/02/23 08:09 Hydroxyurea (*Chemo) 500 Mg Capsule PO 500 mg QAM CHRISTOPHER Administration Ibuprofen 800 mg 12/30/22 21:07 Ibuprofen 400 Mg Tablet PO Q8H PRN Pain Rated 1-3 Warfarin Sodium 7.5 mg 12/31/22 17:00 01/01/23 16:26 Warfarin (*Pbkc) 7.5 Mg Tablet PO 7.5 mg DAILY@1700 CHRISTOPHER Administration Radiology Results: ITS Impressions Chest X-Ray 12/30/22 13:39 IMPRESSION: Bibasilar discoid atelectasis or scarring Labs Labs: Laboratory Results - last 24 hr 01/01/23 01/02/23 01/02/23 17:24 06:28 08:36 WBC 9.8 RBC 3.35 L Hgb 10.5 L Hct 29.8 L MCV 89.0 MCH 31.3 MCHC 35.2 RDW 14.9 H Plt Count 330 MPV 10.5 H Immature Gran % (Auto) 0.3 Neut % (Auto) 40.3 L Lymph % (Auto) 43.8 Kaufman % (Auto) 8.5 Eos % (Auto) 6.2 H Baso % (Auto) 0.9 Lymph # (Auto) 4.28 H Kaufman # (Auto) 0.8 H Eos # (Auto) 0.6 H Baso # (Auto) 0.1 Abs Immat Gran (auto) 0.03 Absolute Neuts (auto) 3.9 Absolute Nucleated RBC 0.1 H Nucleated RBC % 0.5 H Platelet Estimate Adequate Sickle Cells 1+ Target Cells 2+ Schistocytes None seen PT 25.0 H 26.1 H INR 2.1 2.2
[2023-01-02 14:00] VITALS: BP 110/81; PULSE 84; RESP 17; TEMP 36.6; O2SAT 95
[2023-01-02] MEDS: WARFARIN (*PBKC) 7.5 MG TABLET PO (16:26)
[2023-01-02 20:50] VITALS: BP 111/70; PULSE 96; RESP 16; TEMP 36.3; O2SAT 96
[2023-01-03] MEDS: HYDROmorphone HCL INJ (*CRX) 1 MG/ML SYR 2 MG IV PUSH ×4 (00:49→11:51)
[2023-01-03 05:18] VITALS: BP 113/75; PULSE 85; RESP 16; TEMP 36.4; O2SAT 97
[2023-01-03] MEDS: HYDROXYUREA (*CHEMO) 500 MG CAPSULE PO (08:17)
[2023-01-03] MEDS: FOLIC ACID 1 MG TABLET PO (08:17)
[2023-01-03] MEDS: diphenhydrAMINE HCl INJ 50 MG/ML VIAL 25 MG IV PUSH (08:17)
--- NOTE | 2023-01-03 10:56 | PM.DS ---
DS: Admitting Diagnosis Discharge Date January 03, 2023 Admitting Diagnosis Sickle cell DS: Discharge Diagnosis Discharge Diagnosis (1) Sickle cell pain crisis: Code(s): D57.00 - Hb-SS disease with crisis, unspecified Status: Acute (2) Sickle cell disease, type SC: Qualifiers: Sickle-cell associated disorders: without crisis Qualified Code(s): D57.20 - Sickle-cell/Hb-C disease without crisis Code(s): D57.20 - Sickle-cell/Hb-C disease without crisis Status: Chronic (3) Chronic anticoagulation: Code(s): Z79.01 - manager terminal (current) use of anticoagulants Status: Chronic (4) Subtherapeutic international normalized ratio (INR): Code(s): R79.1 - Abnormal coagulation profile Status: Acute (5) Chronic narcotic use: Code(s): F11.90 - Opioid use, unspecified, uncomplicated Status: Chronic Plan The patient presented to the emergency department for evaluation of acute on chronic pain for the last 5 days or so as detailed in HPI. Labs, imaging, EKG, and all reports were personally reviewed. He is on 10 mg methadone 3 times a day but has been out of that for several days due to issues with his prescription. He does have oxycodone as needed for breakthrough pain however that has not been managing his discomfort. He continues to have uncontrollable pain despite receiving IV fluids and IV narcotics in the emergency department and he is being admitted in this setting for continued hydration and pain control. Hemoglobin hematocrit are stable. Dilaudid 3 mg q.3 hours has been ordered as this is typically what he requires to control his pain. Ibuprofen 800 mg t.i.d. is also available as needed which seems to help him sometimes. Warfarin is subtherapeutic and I will give him a higher dose of warfarin this evening and repeat INR tomorrow morning. The rest of his home medications will be reviewed and resumed as appropriate. DS: Summary Hospital Course Hospital Course: Admitted for sickle cell crisis. Was given p.r.n. medications in the hospital and he had done well. Pain is much better. He can be discharged. Patient reports he has all of his medications at home. Time Spent with Patient Time attestation: Total time spent providing and/or coordinating discharge services: Exam Narrative: General:?Nontoxic-appearing male sitting up in bed in moderate pain. Neck:??Supple. No lymphadenopathy. Respiratory:?Lungs are clear to auscultation bilaterally. Cardiovascular:??Regular rate and rhythm with S1-S2. Gastrointestinal:??Abdomen is soft, nontender, and nondistended with positive bowel sounds. Skin:??Warm and dry.? No rash or lesions on limited exam. Extremities:??No cyanosis, clubbing, or edema. Radial and pedal pulses intact. Neurological:??Alert.? Cranial nerves 2-12 are grossly intact. No gross focal deficits to casual conversation. Psychiatric:?Pleasant and cooperative with appropriate mood and affect. Discharge Plan Discharge Attending physician on discharge: Farooq Reyes Consulting providers: Mart Sidhu; Jone Marks Discharging Clinician: Farooq Reyes Patient Disposition: Home, Self-Care Activity: as tolerated Diet: as tolerated Patient Instructions: Antibiotic Form, Warfarin (By mouth), How to Stop Smoking (DC) Stand Alone Forms: General Discharge Information Follow-up/Referrals: Jone Marks MD [Primary Care Provider] - Discharge Medications: Continued folic acid 1 mg Tablet 1 mg PO DAILY methadone 10 mg tablet 10 mg PO TID Rx Instructions: 0900, 1700, 2100 oxycodone-acetaminophen 10-325 mg tablet 10 tablet PO BID PRN (Reason: Pain, Moderate) hydroxyurea 500 mg Capsule 500 mg PO QAM Qty: 30 0RF ibuprofen 800 mg tablet 800 mg PO PRN methadone 10 mg Tablet 10 mg PO BID warfarin 7.5 mg tablet 12 mg PO DAILY Date of admission: 01/02/23 13:05 Primary Care Provider: Jone Marks Admitting Provider: Elyse Simon Attending physician on admission: Elyse Simon Condition: Stable
== END 2023-01-03 14:05 | disposition home or self-care (01) | DRG 662 ==
LOC: ANHED 12:05 → ANH3MEDSUR 20:14
PROVIDERS: Physician Assistant; Admitting Provider Family Medicine; Emergency Provider Emergency Medicine; PCP Internal Medicine Hematology & Oncology; Visit Provider Chiropractor
DX: D57.00 Hb-SS disease with crisis, unspecified (principal); F11.90 Opioid use, unspecified, uncomplicated; Z20.822 Contact with and (suspected) exposure to COVID-19; G89.4 Chronic pain syndrome; R79.1 Abnormal coagulation profile; Z79.01 Long term (current) use of anticoagulants; Z87.891 Personal history of nicotine dependence; Z86.711 Personal history of pulmonary embolism; Z86.718 Personal history of other venous thrombosis and embolism
CPT/HCPCS: 36415; 71046; 80053; 83615; 83690; 84484; 85025; 85046; 85055; 85610; 85730; 87636; 93005; 96361; 96374; 96375; 96376; 99285; A9270; G0378; G0379; J1171; J1200; J7030

== ENCOUNTER 2023-03-19 11:17 | Outpatient (CLI) | payer OTHER, SELFPAY ==
[2023-03-21 09:17] LABS: Amphetamines NEGATIVE ng/mL (<500); Barbiturates NEGATIVE ng/mL (<300); Benzodiazepines NEGATIVE ng/mL (<100); Cocaine Metabolite NEGATIVE ng/mL (<150); Marijuana Metabolite NEGATIVE ng/mL (<20); Methadone Metabolite POSITIVE ng/mL (<100); Opiates POSITIVE ng/mL (<100); Oxidant NEGATIVE mcg/mL (<200); pH 5.8 (4.5-9.0)
== END 2023-03-19 11:18 | disposition home or self-care (01) ==
PROVIDERS: PCP Internal Medicine Hematology & Oncology; Visit Provider Internal Medicine Hematology & Oncology
DX: D57.20 Sickle-cell/Hb-C disease without crisis (principal)
CPT/HCPCS: 80307

== ENCOUNTER 2023-06-22 13:03 | Inpatient (IN) | payer OTHER, SELFPAY ==
[2023-06-22] VITALS (43 sets, daily range): BP systolic 110–145; BP diastolic 63–93; PULSE 71–90; RESP 12–25; TEMP 35.8–36.6; O2SAT 93–99; BMI 31.3
--- NOTE | ~2023-06-22 | XR_ITS ---
XR chest 1V portable DATE: 06/22/2023 13:33 INDICATION: Sickle cell crisis TECHNIQUE: Portable AP chest on 06/22/2023 at 1330 hours COMPARISON: 12/30/2022 AP and lateral chest FINDINGS: Mild bibasilar discoid atelectasis or scarring. The lungs otherwise appear clear. No pleura l effusion or pulmonary vascular congestion or pneumothorax. Normal heart size. No hilar or mediastinal enlargement. IMPRESSION: Mild bibasilar discoid atelectasis or scarring Reviewed, dictated and finalized at location A. ETING PROGRAM COORDINATOR
--- NOTE | ~2023-06-22 | US_ITS ---
EXAMINATION: US venous doppler [facility] DATE: 06/26/2023 13:38 INDICATION: Lower limb deep vein thrombosis. TECHNIQUE: Grayscale ultrasound images without and with compression and Doppler ultrasound images of the bilateral lower extremity veins were obtained. COMPARISON: Ultrasound 11/09/2019 FINDINGS: The visualized portions of right common femoral vein, profunda (deep) femoral vein, femoral vein, pop liteal vein, peroneal veins, posterior tibial veins, and greater saphenous vein outflow are patent. The visualized portions of left common femoral vein, profunda femoral vein, femoral vein, popliteal v ein, peroneal veins, posterior tibial veins, and greater saphenous vein outflow are patent. IMPRESSION: 1. No deep venous thrombosis. Reviewed, dictated and finalized at location A.
--- NOTE | 2023-06-22 13:11 | ED.GENADULT ---
HPI - General Adult General Chief complaint: Unspecified Stated complaint: sickle cell pain Time Seen by Provider: 06/22/23 13:08 38 years old male drop of to the emergency room with hip pain, back pain and drips pain started 5 days ago. History of sickle cell disease, patient believed that he have crisis at this time. He denies any fever, chills, nausea, vomiting, abdominal pain, trouble urinating he. Currently patient on methadone 10 mg t.i.d., oxycodone 10 mg b.i.d. as needed, also on ibuprofen as needed and Coumadin and hydroxyurea. Last crisis was last year, last time was seen by his oncologist 3 months ago. Patient does not smoke or drink, uses marijuana occasionally. Source: patient Related Data Home Medications Medication Instructions Recorded Confirmed folic acid 1 mg tablet 1 mg PO DAILY 02/16/19 12/30/22 methadone 10 mg tablet 10 mg PO TID 08/22/20 12/30/22 oxycodone-acetaminophen 10 mg-325 10 tablet PO BID PRN Pain, Moderate 08/22/20 12/30/22 mg tablet ibuprofen 800 mg tablet 800 mg PO PRN 12/30/22 12/30/22 methadone 10 mg tablet 10 mg PO BID 12/30/22 12/30/22 warfarin 7.5 mg tablet 12 mg PO DAILY 12/30/22 12/30/22 Allergies Allergy/AdvReac Type Severity Reaction Status Date / Time Fish Containing Products Allergy Mild Itching Verified 09/17/22 12:56 Review of Systems Review of Systems: All systems reviewed & are unremarkable except as noted in HPI and below PMFSH Past Medical History Medical History Acute chest syndrome Chronic anticoagulation Due to history of DVT and pulmonary embolism. Chronic narcotic use On methadone with oxycodone for chronic pain related to sickle cell disease. 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 Deep venous thrombosis Noncompliance History of noncompliance with anticoagulation and hydroxyurea. Pulmonary embolism Sickle cell disease, type SC Surgical History Surgical History History of hand surgery Tendon surgery on right 5th finger. Family History Family History Grandparent Diabetes mellitus Acute myocardial infarction Sibling Asthma Sibling Asthma Mother Hypertension Sickle cell trait Son Sickle cell trait Daughter Sickle cell trait Grandparent No problems noted. Other Diabetes mellitus Father Sickle cell trait Social History Social History Social History: The patient lives in [place] with his family. He is on disability due to sickle cell disease and chronic pain. He is a lifelong nonsmoker and denies alcohol and illicit substance abuse. He uses marijuana to help with pain. He designates Jolly Zuniga (mother) or Keyla Luther (friend) as his surrogate decision makers and he wishes to be a full code. Smoking status: Current some day smoker Second hand tobacco smoke exposure: No Additional smoking assessment comments: Smokes marijuana when pain meds unavailable. Alcohol intake: never Substance use: current Substance use type: marijuana Other substance usage details: For back when he doesn't have any pain meds available. Last use: 12/28/22 Lack of Transportation: No Lack of Food: Never True Current Housing: I Have Housing Concerned About Future Housing: No Difficulty Paying Gas/Electric Bills: No Difficulty Paying for Meds: No Currently Unemployed: No Education: High School Diploma/GED Difficulty w/ Childcare or Family Care: No Living arrangements: with family Occupation/Education: other Spiritual care concerns: No Agree to blood products: Yes Exam Narrative: General appearance: Well-developed, well-nourished Skin: Normal color Head: Normocephalic, nontraumatic Eyes: Clear conjunctiva ENT: Oropharynx normal, ears normal, nose normal Neck:
--- NOTE | 2023-06-22 13:15 | ECG_ITS ---
Measurements Intervals [place] Rate: 72 P: 33 WI: 173 QRS: 28 QRSD: 98 T: 9 QT: 414 QTc: 454 Interpretive Statements SINUS RHYTHM EARLY PRECORDIAL R/S TRANSITION BORDERLINE T WAVE ABNORMALITY- INFERIOR LEADS BORDERLINE ECG COMPARED TO ECG 12/30/2022 13:07:08 NO SIGNIFICANT CHANGES Electronically Signed On 06-22-2023 15:18:49 [employer] MECH[employer]IC by Ricky Modi D.O.
[2023-06-22 14:59] LABS: Hematocrit 28.9 % (42.0-52.0); Hemoglobin 10.2 g/dL (14.0-18.0); Immature Reticulocyte Fraction 32.1 % (3.0-15.9); Mean Corpuscular HGB Conc 35.3 g/dl (32-36); Mean Corpuscular Hemoglobin 30.7 pg (26-34); Mean Platelet Volume 10.5 fl (7.4-10.4); Platelet Count Result 330 k/mm3 (150-375); Red Blood Count 3.32 M/mm3 (4.6-6.20); Red Cell Distribution Width 13.8 % (11.5-14.5); Reticulocyte Hemoglobin Conten 31.5 pg (28.2-35.7); Reticulocyte Percent 5.29 % (0.7-4.3); Reticulocytes Absolute 0.17 M/mm3 (0.02-0.1); White Blood Count 8.8 K/mm3 (4.5-10.0)
[2023-06-22] MEDS: HYDROmorphone HCL INJ (*CRX) 1 MG/ML SYR 0.5 MG IV PUSH ×2 (15:08→15:52)
[2023-06-22] MEDS: ONDANSETRON INJ 4 MG/2 ML VIAL IV PUSH (15:08)
[2023-06-22] MEDS: LACTATED RINGERS 1,000 ML 999 ML IV CONT (15:10)
[2023-06-22 15:12] LABS: Alanine Aminotransferase 22 U/L (6-50); Albumin Level 4.2 g/dL (3.5-5.1); Alkaline Phosphatase 77 U/L (38-126); Anion Gap 2 mmol/L (8-16); Aspartate Amino Transferase 38 U/L (17-59); Bilirubin,Total 1.5 mg/dL (0.2-1.3); Blood Urea Nitrogen 7 mg/dL (9-20); Calcium 8.9 mg/dL (8.4-10.2); Carbon Dioxide 29 mmol/L (22-30); Chloride 109 mmol/L (98-107); Estimated CRCL calculation 127 ml/min; Estimated Glomerular Filt Rate > 60; Glucose 98 mg/dL (65-110); Sodium 140 mmol/L (137-145)
[2023-06-22 15:40] LABS: Atypical Lymphocytes Present; Eosinophils Absolute Manual 0.26 K/mm3 (0.02-0.5); Eosinophils Percent Manual 3 % (0-4); Lymphocytes Absolute Manual 3.25 K/mm3 (1.1-4.5); Lymphocytes Percent Manual 37 % (18-44); Metamyelocytes Percent 1 %; Monocytes Absolute Manual 0.44 K/mm3 (0.1-0.90); Monocytes Percent Manual 5 % (3-9); Neutrophils Percent Manual 54 % (46-73); Platelet Estimate Adequate (Adequate); Poikilocytosis 1+ (NORMAL); Schistocytes None Seen (NORMAL); Sickle Cells 1+ (NORMAL); Target Cells 2+ (NORMAL); Total Cells Counted 100
[2023-06-22 16:04] LABS: Appearance Urine Clear (Clear); Bilirubin Urine Negative (Negative); Blood Urine Negative (Negative); Color Urine Yellow (Yellow); Glucose Urine UA Negative (Negative); Ketones Urine Negative (Negative); Leukocyte Esterase Ur Negative LEU/UL (Negative); Nitrate Urine Negative (Negative); Protein Urine Negative (Negative); Specific Grav Ur 1.012 (1.001-1.035)
[2023-06-22 16:11] LABS: Add Urine Microscopic? NO
[2023-06-22 17:26] LABS: Hematocrit 28.2 % (42.0-52.0)
[2023-06-22 17:38] LABS: Prothrombin Time 13.9 Seconds (11.1-14.7)
--- NOTE | 2023-06-22 17:52 | PM.IMHP ---
H&P: HPI History of Present Illness Date/Time: 06/22/23 18:30 Chief Complaint: Pain. 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 and he has oxycodone 10-325 mg available as needed for breakthrough pain. Over the last 5 days or so he has had increasing pain from baseline without much benefit from his oxycodone. Ibuprofen does not help much either. His pain is mostly in the back and legs and somewhat in the ribs. He denies fever, chills, sweats, cold and flu symptoms, chest pain, pleuritic pain, lower extremity edema, calf pain, shortness of breath, nausea, vomiting, diarrhea, and dysuria. He was afebrile on arrival to the emergency department. Labs were significant for a hemoglobin of 10.0, % recheck 5.29%, INR 1.0, normal electrolytes, total bilirubin 1.5. UA was unremarkable. Chest x-ray showed mild bibasilar discoid atelectasis or scarring. EKG showed sinus rhythm without any significant changes compared to prior tracings. He received IV fluids and hydromorphone in the ED without much benefit he is being admitted in this setting for pain control. Review of Systems Review of Systems: Twelve systems were reviewed and are negative except for as per HPI. [facility] Past Medical History Medical History Acute chest syndrome Chronic anticoagulation Due to history of DVT and pulmonary embolism. Chronic narcotic use On methadone with oxycodone for chronic pain related to sickle cell disease. 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 Deep venous thrombosis Noncompliance History of noncompliance with anticoagulation and hydroxyurea. Pulmonary embolism Sickle cell disease, type SC Surgical History Surgical History History of hand surgery Tendon surgery on right 5th finger. Family History Family History Grandparent Diabetes mellitus Acute myocardial infarction Sibling Asthma Sibling Asthma Mother Hypertension Sickle cell trait Son Sickle cell trait Daughter Sickle cell trait Grandparent No problems noted. Other Diabetes mellitus Father Sickle cell trait Social History Social History Social History: The patient lives in [place] with his family. He is on disability due to sickle cell disease and chronic pain. He is a lifelong nonsmoker and denies alcohol and illicit substance abuse. He uses marijuana to help with pain. He designates Jolly Zuniga (mother) or Keyla Luther (friend) as his surrogate decision makers and he wishes to be a full code. Smoking status: Current some day smoker Second hand tobacco smoke exposure: No Additional smoking assessment comments: Smokes marijuana when pain meds unavailable. Alcohol intake: never Substance use: current Substance use type: marijuana Other substance usage details: For back when he doesn't have any pain meds available. Last use: 12/28/22 Lack of Transportation: No Lack of Food: Never True Current Housing: I Have Housing Concerned About Future Housing: No Difficulty Paying Gas/Electric Bills: No Difficulty Paying for Meds: No Currently Unemployed: No Education: High School Diploma/GED Difficulty w/ Childcare or Family Care: No Living arrangements: with family Occupation/Education: other Spiritual care concerns: No Agree to blood products: Yes Meds Home Medications and Allergies Home Medications Medication Instructions Recorded Anna
[2023-06-22] MEDS: LACTATED RINGERS 1,000 ML 125 ML IV CONT (18:14)
[2023-06-22] MEDS: HYDROmorphone HCL INJ (*CRX) 1 MG/ML SYR 3 MG IV PUSH (22:53)
[2023-06-22] MEDS: WARFARIN (*PBKC) 10 MG TABLET PO (22:54)
[2023-06-22] MEDS: WARFARIN (*PBKC) 2 MG TABLET PO (22:55)
[2023-06-22] MEDS: diphenhydrAMINE HCl CAP 25 MG CAPSULE PO (22:59)
[2023-06-22 23:05] LABS: Hematocrit 26.5 % (42.0-52.0); Hemoglobin 9.6 g/dL (14.0-18.0)
[2023-06-23] MEDS: HYDROmorphone HCL INJ (*CRX) 1 MG/ML SYR 3 MG IV PUSH ×7 (03:06→22:07)
[2023-06-23] MEDS: LACTATED RINGERS 1,000 ML 125 ML IV CONT ×3 (03:11→20:40)
[2023-06-23] MEDS: methADONE HCL (*CRX) 5 MG TABLET 10 MG PO ×3 (05:12→20:54)
[2023-06-23 05:28] LABS: Hematocrit 26.4 % (42.0-52.0); Hemoglobin 9.1 g/dL (14.0-18.0); Mean Corpuscular HGB Conc 34.5 g/dl (32-36); Mean Corpuscular Hemoglobin 30.5 pg (26-34); Mean Corpuscular Volume 88.6 fl (80-100); Mean Platelet Volume 10.7 fl (7.4-10.4); Platelet Count Result 292 k/mm3 (150-375); Red Blood Count 2.98 M/mm3 (4.6-6.20); Red Cell Distribution Width 13.3 % (11.5-14.5); White Blood Count 10.4 K/mm3 (4.5-10.0)
[2023-06-23 05:39] LABS: Anion Gap 5 mmol/L (8-16); Blood Urea Nitrogen 8 mg/dL (9-20); Calcium 8.4 mg/dL (8.4-10.2); Carbon Dioxide 26 mmol/L (22-30); Chloride 110 mmol/L (98-107); Estimated CRCL calculation 126 ml/min; Estimated Glomerular Filt Rate > 60; Glucose 90 mg/dL (65-110); Lactate Dehydrogenase 211 U/L (120-246); Magnesium 2.2 mg/dL (1.6-2.3); Potassium 4.3 mmol/L (3.4-5.0); Sodium 141 mmol/L (137-145)
[2023-06-23 05:40] LABS: INR 1.1; Prothrombin Time 14.3 Seconds (11.1-14.7)
[2023-06-23 06:00] VITALS: BP 115/73; PULSE 86; RESP 18; TEMP 36.7; O2SAT 95
--- NOTE | 2023-06-23 07:35 | PM.IMPN ---
Progress Note: A&P Assessment and Plan (1) Sickle cell pain crisis: Code(s): D57.00 - Hb-SS disease with crisis, unspecified Status: Acute Assessment and Plan: 06/23/23: Patient has history of sickle cell disease and presented with pain crisis. Reporting pain mostly in his legs. Multiple hospitalizations for the same complaints. He denies any chest pain EKG reviewed and showing NSR with a rate of 72, QTc 454 CXR- shown mild bibasilar discoid atelectasis or scarring Hgb initially 10.2 now decreased this morning to 9.1 Absolute retic 0.17, percent retic 5.29%, Immature Retic 32.1% Patient given 100 mg Enoxaparin while in the ER Reports pain as an 8/10, which is better than yesterday according to the patient Continue with pain control, Dilaudid 3mg IVP q3h, Methadone 10 mg TID, and Percocet 10 mg tab BID ordered Patient given 1L LR and started on IVF, LR @125ml/hr Continued Warfarin, folic acid, and Hydroxyurea Zofran ordered for nausea Hematology consulted (2) Sickle cell disease, type SC: Qualifiers: Sickle-cell associated disorders: without crisis Qualified Code(s): D57.20 - Sickle-cell/Hb-C disease without crisis Code(s): D57.20 - Sickle-cell/Hb-C disease without crisis Status: Chronic Assessment and Plan: see above (3) Subtherapeutic international normalized ratio (INR): Code(s): R79.1 - Abnormal coagulation profile Status: Acute Assessment and Plan: 06/23/23: INR 1.0 on admission, patient on Warfarin, currently subtherapeutic Has history of DVT and PE in the past Hematology consulted (4) Chronic anticoagulation: Code(s): Z79.01 - marketing agent (current) use of anticoagulants Status: Chronic Assessment and Plan: 06/23/23: Patient on Warfarin, currently subtherapeutic Time Spent With Patient Time with patient: 25 - 35 minutes Subjective Date/time seen: 06/23/23 07:35 Interval history: This is a 38 year old male who presented to the hospital with sickle cell pain crisis. Work up in the hospital included a chest x-ray with mild bibasilar discoid atelectasis or scarring. Labs today reveal WBC 10.4, Hgb 9.1 down from 10.2 initially, absolute retic count 0.17, 5.29% retic, 32.1% immature retic, total bili 1.5, liver enzymes are normal. EKG showing sinus rhythm with a rate of 72, QTc 454. He received Zofran, Dilaudid, Methadone, 1L LR, and 100mg of Lovenox while in the ER. Patient being admitted for pain control. On examination today patient is alert and oriented x3, lying in the bed. He denies any fever, chills, nausea, vomiting, diarrhea, abdominal pain, chest pain, shortness a breath. He endorses pain in his legs which he reports to be 8/10, which is slightly improved from yesterday. Labs today reveal WBC 10.4, Hgb 9.1. We will continue with pain management and he will see Hematology today for follow-up. Review of Systems Review of Systems: Twelve systems were reviewed and are negative except for as per HPI. Constitutional: Constitutional: Reports as per HPI and Reports no additional constitutional complaints Eyes: Eyes: Reports as per HPI and Reports no additional eye complaints ENT: Reports system reviewed and no additional complaints, except as documented and Reports as per HPI Cardiovascular: Cardiovascular: Reports no additional cardiovascular complaints Respiratory: Respiratory: Reports as per HPI and Reports no additional respiratory complaints Gastrointestinal: Gastrointestinal: Reports as per HPI and Reports no additional gastrointestinal complaints Genitourinary: Genitourinary: Reports no additional male genitourinary complaints and Reports as per HPI Musculoskeletal: Musculoskeletal: Reports no additional musculoskeletal complaints and Reports as per HPI Integumentary/Breasts: Skin/Breast: Reports system reviewed and no additional complaints, except as docu and Reports as per HPI Neurologic: Reports sys
[2023-06-23] MEDS: FOLIC ACID 1 MG TABLET PO (09:15)
[2023-06-23] MEDS: HYDROXYUREA (*CHEMO) 500 MG CAPSULE PO (09:16)
[2023-06-23 12:17] LABS: Hemoglobin 9.2 g/dL (14.0-18.0)
[2023-06-23 14:00] VITALS: BP 107/65; PULSE 86; RESP 14; TEMP 36.8; O2SAT 94
[2023-06-23] MEDS: IBUPROFEN 400 MG TABLET 800 MG PO (17:25)
[2023-06-23] MEDS: ONDANSETRON INJ 4 MG/2 ML VIAL IV PUSH (19:18)
[2023-06-23] MEDS: diphenhydrAMINE HCl CAP 25 MG CAPSULE PO (19:18)
[2023-06-23 19:59] VITALS: PULSE 86; RESP 14; O2SAT 94
[2023-06-23 20:42] VITALS: BP 118/75; PULSE 77; RESP 18; TEMP 36.6; O2SAT 93
[2023-06-23] MEDS: WARFARIN (*PBKC) 2 MG TABLET PO (20:55)
[2023-06-23] MEDS: WARFARIN (*PBKC) 10 MG TABLET PO (20:55)
[2023-06-24] MEDS: HYDROmorphone HCL INJ (*CRX) 1 MG/ML SYR 3 MG IV PUSH ×8 (01:28→23:00)
[2023-06-24] MEDS: LACTATED RINGERS 1,000 ML 125 ML IV CONT ×3 (04:48→20:10)
[2023-06-24 05:21] LABS: Basophils Absolute Auto 0.1 K/mm3 (0.0-0.1); Basophils Percent Auto 0.7 % (0.2-1.2); Eosinophils Absolute Auto 0.7 K/mm3 (0-0.3); Eosinophils Percent Auto 6.6 % (0-4.4); Hematocrit 26.6 % (42.0-52.0); Hemoglobin 9.3 g/dL (14.0-18.0); Immature Granulocyte Absolute 0.01 K/mm3 (0.00-0.031); Immature Granulocyte Percent A 0.1 % (0-0.5); Immature Platelet Fraction Pct 4.6 % (0.9-11.2); Immature Reticulocyte Fraction 31.5 % (3.0-15.9); Lymphocytes Absolute Auto 4.59 K/mm3 (0.9-3.2); Lymphocytes Percent Auto 44.9 % (18.3-44.2); Mean Corpuscular Volume 88.7 fl (80-100); Mean Platelet Volume 10.9 fl (7.4-10.4); Monocytes Absolute Auto 0.9 K/mm3 (0.1-0.6); Monocytes Percent Auto 8.9 % (2.6-8.5); Neutrophils Percent Auto 38.8 % (45.5-73.1); Nucleated Red Blood Cells Perc 0.2 % (0.0-0.2); Platelet Count Result 288 k/mm3 (150-375); Red Cell Distribution Width 13.6 % (11.5-14.5); Reticulocyte Hemoglobin Conten 30.8 pg (28.2-35.7); Reticulocytes Absolute 0.18 M/mm3 (0.02-0.1); White Blood Count 10.2 K/mm3 (4.5-10.0)
[2023-06-24 05:30] LABS: INR 1.3; Prothrombin Time 16.5 Seconds (11.1-14.7)
[2023-06-24 05:43] LABS: Alanine Aminotransferase 17 U/L (6-50); Albumin Level 3.8 g/dL (3.5-5.1); Alkaline Phosphatase 66 U/L (38-126); Anion Gap 2 mmol/L (8-16); Aspartate Amino Transferase 36 U/L (17-59); Bilirubin,Total 1.1 mg/dL (0.2-1.3); Blood Urea Nitrogen 7 mg/dL (9-20); Calcium 8.4 mg/dL (8.4-10.2); Carbon Dioxide 28 mmol/L (22-30); Chloride 108 mmol/L (98-107); Estimated CRCL calculation 127 ml/min; Estimated Glomerular Filt Rate > 60; Glucose 114 mg/dL (65-110); Sodium 138 mmol/L (137-145)
[2023-06-24 05:46] LABS: Potassium 3.8 mmol/L (3.4-5.0)
[2023-06-24 06:00] VITALS: BP 115/68; PULSE 77; RESP 18; TEMP 36.3; O2SAT 94
[2023-06-24 06:02] LABS: Hypochromasia 2+ (NORMAL); Platelet Estimate Adequate (Adequate); Poikilocytosis 2+ (NORMAL)
[2023-06-24 06:03] LABS: Sickle Cells 1+ (NORMAL); Target Cells 2+ (NORMAL)
[2023-06-24 06:04] LABS: Schistocytes 1+ (NORMAL)
[2023-06-24 06:05] LABS: Anisocytosis 2+ (NORMAL)
[2023-06-24 07:59] VITALS: RESP 18; O2SAT 94
[2023-06-24] MEDS: methADONE HCL (*CRX) 5 MG TABLET 10 MG PO ×3 (08:07→20:07)
[2023-06-24] MEDS: HYDROXYUREA (*CHEMO) 500 MG CAPSULE PO (08:07)
[2023-06-24] MEDS: FOLIC ACID 1 MG TABLET PO (08:07)
[2023-06-24 08:48] VITALS: O2SAT 92
--- NOTE | 2023-06-24 10:08 | PDONCCN ---
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 He is admitted for pain control due to sickle cell crisis. He reports back/neck pain earlier last week. He was having increased generalized pain and that is why he went to the ED. He is currently c/o continued leg pain, but back and neck pain has resolved. He reports the IV Dilaudid is helping. He is taking his home pain medication regimen with methadone and oxycodone as well. Denies any nausea, vomiting, chest pain, shortness of breath, bleeding or bruising. Review of Systems - Review of Systems All systems reviewed & are unremarkable except as noted in HPI and bel - Neurologic Reports system reviewed and no additional complaints, except as documented PMFSH Medical History: Medical History (Last Reviewed 06/22/23 @ 22:25 by Kimberlee Santamaria PA-C) Acute chest syndrome Chronic anticoagulation Due to history of DVT and pulmonary embolism. Chronic narcotic use On methadone with oxycodone for chronic pain related to sickle cell disease. 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 Deep venous thrombosis Noncompliance History of noncompliance with anticoagulation and hydroxyurea. Pulmonary embolism Sickle cell disease, type SC Surgical History: Surgical History (Last Reviewed 06/22/23 @ 22:25 by Kimberlee Santamaria PA-C) History of hand surgery Tendon surgery on right 5th finger. Family History: Family History (Last Reviewed 06/22/23 @ 22:25 by Kimberlee Santamaria PA-C) Grandparent Diabetes mellitus Acute myocardial infarction Sibling Asthma Sibling Asthma Mother Hypertension Sickle cell trait Son Sickle cell trait Daughter Sickle cell trait Grandparent No problems noted. Other Diabetes mellitus Father Sickle cell trait - Social History Social History: Social History (Last Reviewed 06/22/23 @ 22:25 by Kimberlee Santamaria PA-C) Alcohol Use: Alcohol intake: never Substance Use: Substance use: current Substance use type: marijuana Other substance usage details: For back when he doesn't have any pain meds available. Last use: 12/28/22 Others: Spiritual care concerns: No Agree to blood products: Yes Living Arrangements: Living arrangements: with family Oppucation/Education: Occupation/Education: other Smoking Status: Smoking status: Never smoker Second hand tobacco smoke exposure: No Comments: Additional smoking assessment comments: Smokes marijuana when pain meds unavailable. Social Determinants of Health: Do You Feel Safe in your Home?: Yes Has the Lack of Transportation Kept You From Medical Appointments or From Getting Medications?: No Within the Past 12 Months, Were You Worried Whether Your Food Would Run Out Before You Got Money to Buy More?: Never True What is Your Housing Situation Today?: I Have Housing Are You Worried That in the Next 2 Months, You May Not Have Your Own Housing to Live In?: No Do You Have Trouble Paying Your Heating Or Electricity Bill?: No Do You Have Trouble Paying For Medicines?: No Are You Currently Unemployed and Looking for Work?: No Highest Level of Education Completed: High School Diploma/GED Do You Have Trouble With Childcare or the Care of a Family Member?: No Exam - General Pt is laying in bed in no acute distress - Vital Signs Vital Signs - 24 hr 06/23/23 14:00 06/23/23 19:59 06/23/23 20:42 Temperature 36.8 C 36.6 C Pulse Rate 86 86 77 Respiratory Rate 14 14 18 Blood Pressure 107/65 118/75 Pulse Oximetry 94 94 93 Oxygen Delivery Room Air 06/24/23 06:00
--- NOTE | 2023-06-24 10:10 | P.PNIM_ITS ---
Progress Note: A&P Assessment and Plan (1) Sickle cell pain crisis: Code(s): D57.00 - Hb-SS disease with crisis, unspecified Status: Acute Assessment and Plan: 06/23/23: * Patient has history of sickle cell disease and presented with pain crisis. Reporting pain mostly in his legs. Multiple hospitalizations for the same complaints. He denies any chest pain * EKG reviewed and showing NSR with a rate of 72, QTc 454 * CXR- shown mild bibasilar discoid atelectasis or scarring * Hgb initially 10.2 now decreased this morning to 9.1 * Absolute retic 0.17, percent retic 5.29%, Immature Retic 32.1% * Patient given 100 mg Enoxaparin while in the ER * Reports pain as an 8/10, which is better than yesterday according to the patient * Continue with pain control, Dilaudid 3mg IVP q3h, Methadone 10 mg TID, and Percocet 10 mg tab BID ordered * Patient given 1L LR and started on IVF, LR @125ml/hr * Continued Warfarin, folic acid, and Hydroxyurea * Zofran ordered for nausea * Hematology consulted 06/24/23: * White blood cell count 10.2, hemoglobin 9.3, absolute retake 0.18, 6.10% retake, immature retic fraction 31.5% retake hemoglobin content 30.8 * Continue with pain control and current treatment plan * Hematology following (2) Sickle cell disease, type SC: Qualifiers: Sickle-cell associated disorders: without crisis Qualified Code(s): D57.20 - Sickle-cell/Hb-C disease without crisis Code(s): D57.20 - Sickle-cell/Hb-C disease without crisis Status: Chronic Assessment and Plan: see above (3) Subtherapeutic international normalized ratio (INR): Code(s): R79.1 - Abnormal coagulation profile Status: Acute Assessment and Plan: 06/23/23: * INR 1.0 on admission, patient on Warfarin, currently subtherapeutic * Has history of DVT and PE in the past * Hematology consulted 06/24/23: * INR is 1.3 today * Continue Coumadin * Hematology following (4) Chronic anticoagulation: Code(s): Z79.01 - emt intermediate (current) use of anticoagulants Status: Chronic Assessment and Plan: 06/23/23: * Patient on Warfarin, currently subtherapeutic 06/24/23: * INR today 1.3, subtherapeutic * Hematology following Time Spent With Patient Time with patient: 15 - 25 minutes Subjective Date/time seen: 06/24/23 10:10 Interval history: 06/23/23: This is a 38 year old male who presented to the hospital with sickle cell pain crisis. Work up in the hospital included a chest x-ray with mild bibasilar discoid atelectasis or scarring. Labs today reveal WBC 10.4, Hgb 9.1 down from 10.2 initially, absolute retic count 0.17, 5.29% retic, 32.1% immature retic, total bili 1.5, liver enzymes are normal. EKG showing sinus rhythm with a rate of 72, QTc 454. He received Zofran, Dilaudid, Methadone, 1L LR, and 100mg of Lovenox while in the ER. Patient being admitted for pain control. On examination today patient is alert and oriented x3, lying in the bed. He denies any fever, chills, nausea, vomiting, diarrhea, abdominal pain, chest pain, shortness a breath. He endorses pain in his legs which he reports to be 8/10, which is slightly improved from yesterday. Labs today reveal WBC 10.4, Hgb 9.1. We will continue with pain management and he will see Hematology today for follow-up. 06/24/23: On examination today patient is alert oriented x3, lying in the bed. He states that his pain increases with walking however at rest his pain is well controlled on his pain regimen. He currently noted to be 7/10. Labs today reveal white blood cell count of 10.2, hemoglobin 9.
--- NOTE | 2023-06-24 10:10 | PM.IMPN ---
Progress Note: A&P Assessment and Plan (1) Sickle cell pain crisis: Code(s): D57.00 - Hb-SS disease with crisis, unspecified Status: Acute Assessment and Plan: 06/23/23: Patient has history of sickle cell disease and presented with pain crisis. Reporting pain mostly in his legs. Multiple hospitalizations for the same complaints. He denies any chest pain EKG reviewed and showing NSR with a rate of 72, QTc 454 CXR- shown mild bibasilar discoid atelectasis or scarring Hgb initially 10.2 now decreased this morning to 9.1 Absolute retic 0.17, percent retic 5.29%, Immature Retic 32.1% Patient given 100 mg Enoxaparin while in the ER Reports pain as an 8/10, which is better than yesterday according to the patient Continue with pain control, Dilaudid 3mg IVP q3h, Methadone 10 mg TID, and Percocet 10 mg tab BID ordered Patient given 1L LR and started on IVF, LR @125ml/hr Continued Warfarin, folic acid, and Hydroxyurea Zofran ordered for nausea Hematology consulted 06/24/23: White blood cell count 10.2, hemoglobin 9.3, absolute retake 0.18, 6.10% retake, immature retic fraction 31.5% retake hemoglobin content 30.8 Continue with pain control and current treatment plan Hematology following (2) Sickle cell disease, type SC: Qualifiers: Sickle-cell associated disorders: without crisis Qualified Code(s): D57.20 - Sickle-cell/Hb-C disease without crisis Code(s): D57.20 - Sickle-cell/Hb-C disease without crisis Status: Chronic Assessment and Plan: see above (3) Subtherapeutic international normalized ratio (INR): Code(s): R79.1 - Abnormal coagulation profile Status: Acute Assessment and Plan: 06/23/23: INR 1.0 on admission, patient on Warfarin, currently subtherapeutic Has history of DVT and PE in the past Hematology consulted 06/24/23: INR is 1.3 today Continue Coumadin Hematology following (4) Chronic anticoagulation: Code(s): Z79.01 - shelter (current) use of anticoagulants Status: Chronic Assessment and Plan: 06/23/23: Patient on Warfarin, currently subtherapeutic 06/24/23: INR today 1.3, subtherapeutic Hematology following Time Spent With Patient Time with patient: 15 - 25 minutes Subjective Date/time seen: 06/24/23 10:10 Interval history: 06/23/23: This is a 38 year old male who presented to the hospital with sickle cell pain crisis. Work up in the hospital included a chest x-ray with mild bibasilar discoid atelectasis or scarring. Labs today reveal WBC 10.4, Hgb 9.1 down from 10.2 initially, absolute retic count 0.17, 5.29% retic, 32.1% immature retic, total bili 1.5, liver enzymes are normal. EKG showing sinus rhythm with a rate of 72, QTc 454. He received Zofran, Dilaudid, Methadone, 1L LR, and 100mg of Lovenox while in the ER. Patient being admitted for pain control. On examination today patient is alert and oriented x3, lying in the bed. He denies any fever, chills, nausea, vomiting, diarrhea, abdominal pain, chest pain, shortness a breath. He endorses pain in his legs which he reports to be 8/10, which is slightly improved from yesterday. Labs today reveal WBC 10.4, Hgb 9.1. We will continue with pain management and he will see Hematology today for follow-up. 06/24/23: On examination today patient is alert oriented x3, lying in the bed. He states that his pain increases with walking however at rest his pain is well controlled on his pain regimen. He currently noted to be 7/10. Labs today reveal white blood cell count of 10.2, hemoglobin 9.3, absolute retic 0.18,% retake 6.10, immature retic fraction 31.5 retake hemoglobin content 30.8. Hematology following Review of Systems Review of Systems: Twelve systems were reviewed and are negative except for as per HPI. Constitutional: Constitutional: Reports as per HPI and Reports no additional constitutional complaints Eyes: Eyes: Reports as per HPI and Reports
[2023-06-24 13:30] VITALS: BP 118/65; PULSE 86; RESP 16; TEMP 36.7; O2SAT 95
[2023-06-24 20:03] VITALS: BP 126/74; PULSE 89; RESP 18; TEMP 36.7; O2SAT 96
[2023-06-24] MEDS: WARFARIN (*PBKC) 2 MG TABLET PO (20:07)
[2023-06-24] MEDS: WARFARIN (*PBKC) 10 MG TABLET PO (20:07)
[2023-06-24] MEDS: diphenhydrAMINE HCl CAP 25 MG CAPSULE PO (20:54)
[2023-06-24] MEDS: IBUPROFEN 400 MG TABLET 800 MG PO (20:54)
[2023-06-25] MEDS: HYDROmorphone HCL INJ (*CRX) 1 MG/ML SYR 3 MG IV PUSH ×7 (01:55→21:30)
[2023-06-25 04:30] VITALS: BP 111/69; PULSE 80; RESP 18; TEMP 36.6; O2SAT 95
[2023-06-25] MEDS: LACTATED RINGERS 1,000 ML 125 ML IV CONT (04:59)
[2023-06-25 05:38] LABS: Basophils Absolute Auto 0.1 K/mm3 (0.0-0.1); Basophils Percent Auto 0.9 % (0.2-1.2); Eosinophils Absolute Auto 0.9 K/mm3 (0-0.3); Eosinophils Percent Auto 7.9 % (0-4.4); Hematocrit 27.1 % (42.0-52.0); Hemoglobin 9.8 g/dL (14.0-18.0); Immature Granulocyte Absolute 0.02 K/mm3 (0.00-0.031); Immature Granulocyte Percent A 0.2 % (0-0.5); Immature Platelet Fraction Pct 4.6 % (0.9-11.2); Immature Reticulocyte Fraction 36.3 % (3.0-15.9); Lymphocytes Absolute Auto 4.53 K/mm3 (0.9-3.2); Lymphocytes Percent Auto 40.8 % (18.3-44.2); Mean Corpuscular HGB Conc 36.2 g/dl (32-36); Mean Corpuscular Hemoglobin 32.2 pg (26-34); Mean Corpuscular Volume 89.1 fl (80-100); Mean Platelet Volume 10.6 fl (7.4-10.4); Monocytes Absolute Auto 0.8 K/mm3 (0.1-0.6); Monocytes Percent Auto 7.4 % (2.6-8.5); Neutrophils Absolute Auto 4.7 K/mm3 (1.3-6.7); Neutrophils Percent Auto 42.8 % (45.5-73.1); Nucleated Red Blood Cells Absolute Auto 0.1 K/mm3 (0.0-0.012); Nucleated Red Blood Cells Perc 0.5 % (0.0-0.2); Platelet Count Result 301 k/mm3 (150-375); Red Blood Count 3.04 M/mm3 (4.6-6.20); Red Cell Distribution Width 13.8 % (11.5-14.5); Reticulocyte Hemoglobin Conten 30.6 pg (28.2-35.7); Reticulocyte Percent 6.63 % (0.7-4.3); White Blood Count 11.1 K/mm3 (4.5-10.0)
[2023-06-25 05:43] LABS: INR 1.5; Prothrombin Time 18.7 Seconds (11.1-14.7)
[2023-06-25 05:46] LABS: Alanine Aminotransferase 17 U/L (6-50); Albumin Level 3.7 g/dL (3.5-5.1); Alkaline Phosphatase 72 U/L (38-126); Anion Gap 4 mmol/L (8-16); Aspartate Amino Transferase 35 U/L (17-59); Bilirubin,Total 1.2 mg/dL (0.2-1.3); Blood Urea Nitrogen 8 mg/dL (9-20); Calcium 8.5 mg/dL (8.4-10.2); Carbon Dioxide 28 mmol/L (22-30); Chloride 109 mmol/L (98-107); Estimated CRCL calculation 145 ml/min; Estimated Glomerular Filt Rate > 60; Glucose 121 mg/dL (65-110); Potassium 3.7 mmol/L (3.4-5.0); Sodium 141 mmol/L (137-145)
[2023-06-25 06:42] LABS: Platelet Estimate Adequate (Adequate)
[2023-06-25 06:43] LABS: Poikilocytosis 2+ (NORMAL); Sickle Cells 1+ (NORMAL); Target Cells 3+ (NORMAL)
[2023-06-25 06:44] LABS: Anisocytosis 1+ (NORMAL); Macrocytosis 1+ (NORMAL); Schistocytes 1+ (NORMAL)
--- NOTE | 2023-06-25 07:51 | P.PNIM_ITS ---
Progress Note: A&P Assessment and Plan (1) Sickle cell pain crisis: Code(s): D57.00 - Hb-SS disease with crisis, unspecified Status: Acute Assessment and Plan: 06/23/23: * Patient has history of sickle cell disease and presented with pain crisis. Reporting pain mostly in his legs. Multiple hospitalizations for the same complaints. He denies any chest pain * EKG reviewed and showing NSR with a rate of 72, QTc 454 * CXR- shown mild bibasilar discoid atelectasis or scarring * Hgb initially 10.2 now decreased this morning to 9.1 * Absolute retic 0.17, percent retic 5.29%, Immature Retic 32.1% * Patient given 100 mg Enoxaparin while in the ER * Reports pain as an 8/10, which is better than yesterday according to the patient * Continue with pain control, Dilaudid 3mg IVP q3h, Methadone 10 mg TID, and Percocet 10 mg tab BID ordered * Patient given 1L LR and started on IVF, LR @125ml/hr * Continued Warfarin, folic acid, and Hydroxyurea * Zofran ordered for nausea * Hematology consulted 06/24/23: * White blood cell count 10.2, hemoglobin 9.3, absolute retake 0.18, 6.10% retake, immature retic fraction 31.5% retake hemoglobin content 30.8 * Continue with pain control and current treatment plan * Hematology following 06/25/23: * White blood cell count 11.1, hemoglobin 9.8, absolute retic 0.20, 6.63% retic, immature retic 36.3 * patient still requiring around the clock pain control with IV Dilaudid and Percocet. We will increase his Percocet to 1-2 tabs every 6 hours as needed for pain. * Continue with IV Dilaudid during his pain crisis * Hematology signed off (2) Sickle cell disease, type SC: Qualifiers: Sickle-cell associated disorders: without crisis Qualified Code(s): D57.20 - Sickle-cell/Hb-C disease without crisis Code(s): D57.20 - Sickle-cell/Hb-C disease without crisis Status: Chronic Assessment and Plan: see above (3) Subtherapeutic international normalized ratio (INR): Code(s): R79.1 - Abnormal coagulation profile Status: Acute Assessment and Plan: 06/23/23: * INR 1.0 on admission, patient on Warfarin, currently subtherapeutic * Has history of DVT and PE in the past * Hematology consulted 06/24/23: * INR is 1.3 today * Continue Coumadin * Hematology following 06/25/2023: * INR 1.5 * still subtherapeutic * will increase his Coumadin dose to 14 mg at bedtime * continue to trend (4) Chronic anticoagulation: Code(s): Z79.01 - long-term (current) use of anticoagulants Status: Chronic Assessment and Plan: 06/23/23: * Patient on Warfarin, currently subtherapeutic 06/24/23: * INR today 1.3, subtherapeutic * Hematology following 06/25/2023: * INR 1.5, subtherapeutic * increase Coumadin * continue to trend Time Spent With Patient Time with patient: 15 - 25 minutes Subjective Date/time seen: 06/25/23 07:51 Interval history: 06/23/23: This is a 38 year old male who presented to the hospital with sickle cell pain crisis. Work up in the hospital included a chest x-ray with mild bibasilar discoid atelectasis or scarring. Labs today reveal WBC 10.4, Hgb 9.1 down from 10.2 initially, absolute retic count 0.17, 5.29% retic, 32.1% immature retic, total bili 1.5, liver enzymes are normal. EKG showing sinus rhythm with a rate of 72, QTc 454. He received Zofran, Dilaudid, Methadone, 1L LR, and 100mg of Lovenox while in the ER. Patient being admitted for pain control. On examination today patient is alert and oriented x3, lying in the b
--- NOTE | 2023-06-25 07:51 | PM.IMPN ---
Progress Note: A&P Assessment and Plan (1) Sickle cell pain crisis: Code(s): D57.00 - Hb-SS disease with crisis, unspecified Status: Acute Assessment and Plan: 06/23/23: Patient has history of sickle cell disease and presented with pain crisis. Reporting pain mostly in his legs. Multiple hospitalizations for the same complaints. He denies any chest pain EKG reviewed and showing NSR with a rate of 72, QTc 454 CXR- shown mild bibasilar discoid atelectasis or scarring Hgb initially 10.2 now decreased this morning to 9.1 Absolute retic 0.17, percent retic 5.29%, Immature Retic 32.1% Patient given 100 mg Enoxaparin while in the ER Reports pain as an 8/10, which is better than yesterday according to the patient Continue with pain control, Dilaudid 3mg IVP q3h, Methadone 10 mg TID, and Percocet 10 mg tab BID ordered Patient given 1L LR and started on IVF, LR @125ml/hr Continued Warfarin, folic acid, and Hydroxyurea Zofran ordered for nausea Hematology consulted 06/24/23: White blood cell count 10.2, hemoglobin 9.3, absolute retake 0.18, 6.10% retake, immature retic fraction 31.5% retake hemoglobin content 30.8 Continue with pain control and current treatment plan Hematology following 06/25/23: White blood cell count 11.1, hemoglobin 9.8, absolute retic 0.20, 6.63% retic, immature retic 36.3 patient still requiring around the clock pain control with IV Dilaudid and Percocet. We will increase his Percocet to 1-2 tabs every 6 hours as needed for pain. Continue with IV Dilaudid during his pain crisis Hematology signed off (2) Sickle cell disease, type SC: Qualifiers: Sickle-cell associated disorders: without crisis Qualified Code(s): D57.20 - Sickle-cell/Hb-C disease without crisis Code(s): D57.20 - Sickle-cell/Hb-C disease without crisis Status: Chronic Assessment and Plan: see above (3) Subtherapeutic international normalized ratio (INR): Code(s): R79.1 - Abnormal coagulation profile Status: Acute Assessment and Plan: 06/23/23: INR 1.0 on admission, patient on Warfarin, currently subtherapeutic Has history of DVT and PE in the past Hematology consulted 06/24/23: INR is 1.3 today Continue Coumadin Hematology following 06/25/2023: INR 1.5 still subtherapeutic will increase his Coumadin dose to 14 mg at bedtime continue to trend (4) Chronic anticoagulation: Code(s): Z79.01 - assistant terminal manager (current) use of anticoagulants Status: Chronic Assessment and Plan: 06/23/23: Patient on Warfarin, currently subtherapeutic 06/24/23: INR today 1.3, subtherapeutic Hematology following 06/25/2023: INR 1.5, subtherapeutic increase Coumadin continue to trend Time Spent With Patient Time with patient: 15 - 25 minutes Subjective Date/time seen: 06/25/23 07:51 Interval history: 06/23/23: This is a 38 year old male who presented to the hospital with sickle cell pain crisis. Work up in the hospital included a chest x-ray with mild bibasilar discoid atelectasis or scarring. Labs today reveal WBC 10.4, Hgb 9.1 down from 10.2 initially, absolute retic count 0.17, 5.29% retic, 32.1% immature retic, total bili 1.5, liver enzymes are normal. EKG showing sinus rhythm with a rate of 72, QTc 454. He received Zofran, Dilaudid, Methadone, 1L LR, and 100mg of Lovenox while in the ER. Patient being admitted for pain control. On examination today patient is alert and oriented x3, lying in the bed. He denies any fever, chills, nausea, vomiting, diarrhea, abdominal pain, chest pain, shortness a breath. He endorses pain in his legs which he reports to be 8/10, which is slightly improved from yesterday. Labs today reveal WBC 10.4, Hgb 9.1. We will continue with pain management and he will see Hematology today for follow-up. 06/24/23: On examination today patient is alert oriented x3, lying in the bed. He states that his pain incr
[2023-06-25 08:20] VITALS: RESP 18; O2SAT 95
[2023-06-25 08:21] LABS: CRP < 0.5 mg/dL (<1.0)
[2023-06-25] MEDS: HYDROXYUREA (*CHEMO) 500 MG CAPSULE PO (08:25)
[2023-06-25] MEDS: methADONE HCL (*CRX) 5 MG TABLET 10 MG PO ×3 (08:25→20:12)
[2023-06-25] MEDS: FOLIC ACID 1 MG TABLET PO (08:25)
[2023-06-25] MEDS: oxyCODONE/ACETAMINOPHEN (*CRX) 10-325 MG TABLET 2 TAB PO ×2 (13:16→20:13)
[2023-06-25 13:58] VITALS: BP 108/75; PULSE 85; RESP 18; TEMP 36.6; O2SAT 98
[2023-06-25] MEDS: WARFARIN (*PBKC) 10 MG TABLET PO (20:12)
[2023-06-25] MEDS: diphenhydrAMINE HCl CAP 25 MG CAPSULE PO (20:12)
[2023-06-25] MEDS: WARFARIN (*PBKC) 2 MG TABLET 4 MG PO (20:13)
[2023-06-25 21:53] VITALS: BP 120/73; PULSE 72; RESP 16; TEMP 36.5; O2SAT 97
[2023-06-26] MEDS: HYDROmorphone HCL INJ (*CRX) 1 MG/ML SYR 3 MG IV PUSH ×8 (00:23→23:55)
[2023-06-26 04:30] VITALS: BP 109/77; PULSE 75; RESP 16; TEMP 36.5; O2SAT 100
[2023-06-26 05:44] LABS: Basophils Absolute Auto 0.1 K/mm3 (0.0-0.1); Basophils Percent Auto 0.7 % (0.2-1.2); Eosinophils Absolute Auto 0.8 K/mm3 (0-0.3); Eosinophils Percent Auto 6.6 % (0-4.4); Hematocrit 28.9 % (42.0-52.0); Hemoglobin 9.9 g/dL (14.0-18.0); Immature Granulocyte Absolute 0.03 K/mm3 (0.00-0.031); Immature Granulocyte Percent A 0.3 % (0-0.5); Immature Platelet Fraction Pct 6.5 % (0.9-11.2); Lymphocytes Absolute Auto 4.26 K/mm3 (0.9-3.2); Lymphocytes Percent Auto 36.4 % (18.3-44.2); Mean Corpuscular HGB Conc 34.3 g/dl (32-36); Mean Corpuscular Volume 90.6 fl (80-100); Mean Platelet Volume 11.2 fl (7.4-10.4); Monocytes Percent Auto 8.8 % (2.6-8.5); Neutrophils Absolute Auto 5.5 K/mm3 (1.3-6.7); Neutrophils Percent Auto 47.2 % (45.5-73.1); Nucleated Red Blood Cells Perc 0.5 % (0.0-0.2); Platelet Count Result 275 k/mm3 (150-375); Red Blood Count 3.19 M/mm3 (4.6-6.20); Red Cell Distribution Width 13.5 % (11.5-14.5); White Blood Count 11.7 K/mm3 (4.5-10.0)
[2023-06-26 05:50] LABS: INR 1.6; Prothrombin Time 20.4 Seconds (11.1-14.7)
[2023-06-26 06:15] LABS: Alanine Aminotransferase 17 U/L (6-50); Albumin Level 4.1 g/dL (3.5-5.1); Alkaline Phosphatase 65 U/L (38-126); Anion Gap 6 mmol/L (8-16); Aspartate Amino Transferase 37 U/L (17-59); Bilirubin,Total 1.3 mg/dL (0.2-1.3); Blood Urea Nitrogen 9 mg/dL (9-20); CRP < 0.5 mg/dL (<1.0); Calcium 8.8 mg/dL (8.4-10.2); Carbon Dioxide 26 mmol/L (22-30); Chloride 108 mmol/L (98-107); Estimated CRCL calculation 128 ml/min; Estimated Glomerular Filt Rate > 60; Glucose 95 mg/dL (65-110); Potassium 4.2 mmol/L (3.4-5.0); Sodium 140 mmol/L (137-145)
[2023-06-26 07:31] LABS: Immature Reticulocyte Fraction 40.8 % (3.0-15.9); Reticulocyte Hemoglobin Conten 28.7 pg (28.2-35.7); Reticulocyte Percent 6.68 % (0.7-4.3); Reticulocytes Absolute 0.19 M/mm3 (0.02-0.10)
[2023-06-26 07:33] LABS: Platelet Estimate Adequate (Adequate); Sickle Cells 1+; Target Cells 3+
[2023-06-26 07:34] LABS: Schistocytes None Seen
[2023-06-26 08:00] VITALS: PULSE 75; RESP 16; O2SAT 100
[2023-06-26] MEDS: DOCUSATE SODIUM 100 MG CAPSULE PO (08:42)
[2023-06-26] MEDS: HYDROXYUREA (*CHEMO) 500 MG CAPSULE PO (08:42)
[2023-06-26] MEDS: FOLIC ACID 1 MG TABLET PO (08:42)
[2023-06-26] MEDS: methADONE HCL (*CRX) 5 MG TABLET 10 MG PO ×3 (08:45→20:18)
--- NOTE | 2023-06-26 14:45 | PM.IMPN ---
Progress Note: A&P Assessment and Plan (1) Sickle cell pain crisis: Code(s): D57.00 - Hb-SS disease with crisis, unspecified Status: Acute Assessment and Plan: Patient has history of sickle cell disease and presented with pain crisis. Reporting pain mostly in his legs. Multiple hospitalizations for the same complaints. He denies any chest pain EKG reviewed and showing NSR with a rate of 72, QTc 454 CXR- shown mild bibasilar discoid atelectasis or scarring Continue with pain control, Dilaudid 3mg IVP q3h, Methadone 10 mg TID, and Percocet 10 mg tab BID ordered Continue Warfarin, folic acid, and Hydroxyurea Zofran ordered for nausea Hematology following - see Dr. Marks outpatient Absolute retic 0.19, percent retic 6.68. Immature retic fraction 40.8, CRP less than 0.5 (2) Sickle cell disease, type SC: Qualifiers: Sickle-cell associated disorders: without crisis Qualified Code(s): D57.20 - Sickle-cell/Hb-C disease without crisis Code(s): D57.20 - Sickle-cell/Hb-C disease without crisis Status: Chronic Assessment and Plan: see above (3) Subtherapeutic international normalized ratio (INR): Code(s): R79.1 - Abnormal coagulation profile Status: Acute Assessment and Plan: INR 1.6 still subtherapeutic will increase his Coumadin dose to 15 mg at 1700, recheck INR in am DVT dopplers negative, will also include SCDs (4) Chronic anticoagulation: 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 Patient reporting his pain is better controlled, but localized to his upper legs and lower back. Patient states that IV Dilaudid is the only pain medication that helps during his pain crisis. Discussed with him his Coumadin and his subtherapeutic INR. He follows with Dr. Marks for this, but will increase to 15 mg tonight at 5 pm and recheck INR in am. Absolute retic 0.19, percent retic 6.68. Immature retic fraction 40.8, CRP less than 0.5. Review of Systems Review of Systems: Twelve systems were reviewed and are negative except for as per HPI. Exam Narrative: General: In no acute distress, well nourished Head: atraumatic, no encephalopathy Eyes: EOMI, PERRLA, sclera clear ENT: moist mucous membranes, nasal passages clear Neck: supple, no JVD, no adenopathy, trachea midline Cardiac: Normal S1 and S2. RRR, No murmur, gallops or friction rubs, peripheral pulses intact. Respiratory: Lungs clear to auscultation, no adventitious lung sounds Gastrointestinal: soft, non-distended, non-tender, normoactive bowel sounds. : voiding without difficulty. Extremities: moves all extremities well, no edema, good ROM, strength 5/5 Skin: clean, dry, intact. No wounds or lesions. Neuro: Alert and oriented x4, cranial nerves intact, no neuro deficits. Psych: normal mood, normal affect, interactive Objective Data Vital Signs Vital Signs: Vital Signs - 24 hr 06/25/23 21:53 06/25/23 20:00 06/26/23 04:30 Temperature 97.7 F 97.7 F Pulse Rate 72 75 Respiratory Rate 16 16 Blood Pressure 120/73 109/77 Pulse Oximetry 97 100 Oxygen Delivery Room Air 06/26/23 08:00 Temperature Pulse Rate 75 Respiratory Rate 16 Blood Pressure Pulse Oximetry 100 Oxygen Delivery Room Air Intake/Output Intake/Output: Intake & Output 06/23/23 06/24/23 06/25/23 06/26/23 23:59 23:59 23:59 23:59 Intake Total 4820 2930 1060 Balance 4820 2930 1060 Meds/Results Medications: Active Medications Generic Name Dose Route Start Last Admin Trade Name Freq PRN Reason Stop Dose Admin Diphenhydramine HCl 25 mg 06/22/23 22:21 06/25/23 20:12 Diphenhydramine Hcl Cap 25 Mg Capsule PO 25 mg Q6H PRN Administration Itching Do
[2023-06-26] MEDS: WARFARIN (*PBKC) 10 MG TABLET PO (17:15)
[2023-06-26] MEDS: diphenhydrAMINE HCl CAP 25 MG CAPSULE PO (17:19)
[2023-06-26] MEDS: WARFARIN (*PBKC) 5 MG TABLET PO (17:19)
[2023-06-26 17:42] VITALS: BP 142/84; PULSE 94; RESP 18; TEMP 36.8; O2SAT 97
[2023-06-26 20:19] VITALS: BP 109/62; PULSE 79; RESP 16; TEMP 36.4; O2SAT 99
[2023-06-26 23:39] VITALS: O2SAT 99
[2023-06-27] MEDS: HYDROmorphone HCL INJ (*CRX) 1 MG/ML SYR 3 MG IV PUSH ×6 (03:07→23:06)
[2023-06-27 04:17] VITALS: BP 129/70; PULSE 86; RESP 16; TEMP 36.6; O2SAT 96
[2023-06-27 05:45] LABS: Basophils Absolute Auto 0.1 K/mm3 (0.0-0.1); Basophils Percent Auto 0.8 % (0.2-1.2); Eosinophils Absolute Auto 0.8 K/mm3 (0-0.3); Eosinophils Percent Auto 7.4 % (0-4.4); Hematocrit 28.7 % (42.0-52.0); Hemoglobin 10.3 g/dL (14.0-18.0); Immature Granulocyte Absolute 0.03 K/mm3 (0.00-0.031); Immature Granulocyte Percent A 0.3 % (0-0.5); Immature Platelet Fraction Pct 5.1 % (0.9-11.2); Lymphocytes Absolute Auto 3.68 K/mm3 (0.9-3.2); Mean Corpuscular HGB Conc 35.9 g/dl (32-36); Mean Corpuscular Volume 89.1 fl (80-100); Mean Platelet Volume 10.7 fl (7.4-10.4); Monocytes Absolute Auto 0.9 K/mm3 (0.1-0.6); Monocytes Percent Auto 8.2 % (2.6-8.5); Neutrophils Absolute Auto 5.3 K/mm3 (1.3-6.7); Neutrophils Percent Auto 49.3 % (45.5-73.1); Nucleated Red Blood Cells Perc 0.6 % (0.0-0.2); Platelet Count Result 330 k/mm3 (150-375); Red Blood Count 3.22 M/mm3 (4.6-6.20); Red Cell Distribution Width 14.2 % (11.5-14.5); White Blood Count 10.8 K/mm3 (4.5-10.0)
[2023-06-27 05:57] LABS: INR 2.3; Prothrombin Time 26.6 Seconds (11.1-14.7)
[2023-06-27 06:02] LABS: Alanine Aminotransferase 18 U/L (6-50); Albumin Level 4.2 g/dL (3.5-5.1); Alkaline Phosphatase 74 U/L (38-126); Anion Gap 2 mmol/L (8-16); Aspartate Amino Transferase 37 U/L (17-59); Bilirubin,Total 1.2 mg/dL (0.2-1.3); Blood Urea Nitrogen 8 mg/dL (9-20); CRP 0.9 mg/dL (<1.0); Calcium 8.7 mg/dL (8.4-10.2); Carbon Dioxide 29 mmol/L (22-30); Chloride 108 mmol/L (98-107); Estimated CRCL calculation 144 ml/min; Estimated Glomerular Filt Rate > 60; Glucose 102 mg/dL (65-110); Potassium 3.9 mmol/L (3.4-5.0); Sodium 139 mmol/L (137-145)
[2023-06-27 06:08] LABS: Immature Reticulocyte Fraction 41.6 % (3.0-15.9); Reticulocyte Hemoglobin Conten 30.8 pg (28.2-35.7); Reticulocytes Absolute 0.17 M/mm3 (0.02-0.10)
[2023-06-27 06:46] LABS: Hypochromasia 2+; Macrocytosis 1+ (NORMAL); Platelet Estimate Adequate (Adequate); Sickle Cells 1+; Target Cells 3+
[2023-06-27 06:47] LABS: Schistocytes Rare
[2023-06-27] MEDS: DOCUSATE SODIUM 100 MG CAPSULE PO ×2 (09:35→19:56)
[2023-06-27] MEDS: FOLIC ACID 1 MG TABLET PO (09:35)
[2023-06-27] MEDS: HYDROXYUREA (*CHEMO) 500 MG CAPSULE PO (09:35)
[2023-06-27] MEDS: methADONE HCL (*CRX) 5 MG TABLET 10 MG PO ×3 (09:35→19:56)
[2023-06-27] MEDS: oxyCODONE/ACETAMINOPHEN (*CRX) 10-325 MG TABLET 2 TAB PO (12:07)
[2023-06-27 14:00] VITALS: BP 105/64; PULSE 83; RESP 18; TEMP 36.9; O2SAT 96
--- NOTE | 2023-06-27 14:56 | PM.IMPN ---
Progress Note: A&P Assessment and Plan (1) Sickle cell pain crisis: Code(s): D57.00 - Hb-SS disease with crisis, unspecified Status: Acute Assessment and Plan: Patient has history of sickle cell disease and presented with pain crisis. Reporting pain mostly in his legs. Multiple hospitalizations for the same complaints. He denies any chest pain EKG reviewed and showing NSR with a rate of 72, QTc 454 CXR- shown mild bibasilar discoid atelectasis or scarring Continue with pain control - working on transitioning to PO only for d/c but still requiring Dilaudid IV Dilaudid 3mg IVP q3h, Methadone 10 mg TID, and Percocet 10 mg tab BID ordered Continue Warfarin, folic acid, and Hydroxyurea Zofran ordered for nausea Hematology following - see Dr. Marks outpatient Absolute retic 0.17, percent retic 5.6, CRP less than 0.5 (2) Sickle cell disease, type SC: Qualifiers: Sickle-cell associated disorders: without crisis Qualified Code(s): D57.20 - Sickle-cell/Hb-C disease without crisis Code(s): D57.20 - Sickle-cell/Hb-C disease without crisis Status: Chronic Assessment and Plan: see above (3) Subtherapeutic international normalized ratio (INR): Code(s): R79.1 - Abnormal coagulation profile Status: Acute Assessment and Plan: INR 2.3 - discussed adjusted dosing with hematology con't Coumadin dose to 15 mg at 1700 DVT dopplers negative, will also include SCDs (4) Chronic anticoagulation: 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 Patient reporting his pain is better controlled, and would like to go home soon. Discussed with patient that we need him to no longer need his IV pain medications and to work on transitioning to PO regimen today in hopes to d/c later today or tomorrow. Discussed with hematology today regarding d/c dose of Warfarin as his INR reached 2.3 after 15mg. Okay per hem to d/c on 15 mg for now and will f/u outpatient for routine monitoring. Review of Systems Review of Systems: Twelve systems were reviewed and are negative except for as per HPI. Exam Narrative: General: In no acute distress, well nourished Head: atraumatic, no encephalopathy Eyes: EOMI, PERRLA ENT: moist mucous membranes Neck: supple, no JVD, no adenopathy, trachea midline Cardiac: RRR, No murmur, gallops or friction rubs, peripheral pulses intact. Respiratory: Lungs clear to auscultation, no adventitious lung sounds Gastrointestinal: soft, non-distended, non-tender, normoactive bowel sounds. : voiding without difficulty. Extremities: moves all extremities well, no edema, good ROM, strength 5/5 Skin: clean, dry, intact. No wounds or lesions. Neuro: Alert and oriented x4, cranial nerves intact, no neuro deficits. Psych: normal mood, normal affect, interactive Objective Data Vital Signs Vital Signs: Vital Signs - 24 hr 06/26/23 17:42 06/26/23 20:19 06/26/23 20:00 Temperature 98.2 F 97.6 F Pulse Rate 94 79 Respiratory Rate 18 16 Blood Pressure 142/84 H 109/62 Pulse Oximetry 97 99 Oxygen Delivery Room Air 06/27/23 04:17 06/26/23 23:39 06/27/23 08:00 Temperature 97.8 F Pulse Rate 86 Respiratory Rate 16 Blood Pressure 129/70 Pulse Oximetry 96 99 Oxygen Delivery Room Air Room Air 06/27/23 14:00 Temperature 98.5 F Pulse Rate 83 Respiratory Rate 18 Blood Pressure 105/64 Pulse Oximetry 96 Oxygen Delivery Intake/Output Intake/Output: Intake & Output 06/24/23 06/25/23 06/26/23 06/27/23 23:59 23:59 23:59 23:59 Intake Total 4820 2930 19990 Balance 4820 2930 1999 940 Meds/Results Medications: Active Medications Generic Name Dose Route Start Last Admin Trade Name Luis PIRESN Re
[2023-06-27] MEDS: WARFARIN (*PBKC) 5 MG TABLET PO (16:45)
[2023-06-27] MEDS: WARFARIN (*PBKC) 10 MG TABLET PO (16:45)
[2023-06-27 20:05] VITALS: BP 130/88; PULSE 97; RESP 20; TEMP 36.2; O2SAT 96
[2023-06-28] MEDS: HYDROmorphone HCL INJ (*CRX) 1 MG/ML SYR 3 MG IV PUSH ×3 (02:25→08:48)
[2023-06-28 04:46] VITALS: BP 107/77; PULSE 85; RESP 18; TEMP 36.2; O2SAT 97
[2023-06-28 06:10] LABS: Hematocrit 30.6 % (42.0-52.0); Hemoglobin 10.6 g/dL (14.0-18.0); Mean Corpuscular HGB Conc 34.6 g/dl (32-36); Mean Corpuscular Hemoglobin 31.7 pg (26-34); Mean Corpuscular Volume 91.6 fl (80-100); Mean Platelet Volume 10.4 fl (7.4-10.4); Platelet Count Result 304 k/mm3 (150-375); Red Blood Count 3.34 M/mm3 (4.6-6.20); Red Cell Distribution Width 14.5 % (11.5-14.5); White Blood Count 10.8 K/mm3 (4.5-10.0)
[2023-06-28 06:16] LABS: INR 2.6; Prothrombin Time 29.7 Seconds (11.1-14.7)
[2023-06-28 06:47] LABS: Alanine Aminotransferase 18 U/L (6-50); Albumin Level 4.5 g/dL (3.5-5.1); Alkaline Phosphatase 75 U/L (38-126); Anion Gap 7 mmol/L (8-16); Aspartate Amino Transferase 39 U/L (17-59); Bilirubin,Total 1.3 mg/dL (0.2-1.3); Blood Urea Nitrogen 9 mg/dL (9-20); CRP 1.1 mg/dL (<1.0); Carbon Dioxide 24 mmol/L (22-30); Chloride 109 mmol/L (98-107); Estimated CRCL calculation 161 ml/min; Estimated Glomerular Filt Rate > 60; Glucose 110 mg/dL (65-110); Potassium 4.4 mmol/L (3.4-5.0); Sodium 140 mmol/L (137-145)
[2023-06-28 08:24] LABS: Immature Reticulocyte Fraction 32.4 % (3.0-15.9); Reticulocyte Hemoglobin Conten 30.8 pg (28.2-35.7); Reticulocytes Absolute 0.21 M/mm3 (0.02-0.10)
[2023-06-28] MEDS: DOCUSATE SODIUM 100 MG CAPSULE PO (08:47)
[2023-06-28] MEDS: FOLIC ACID 1 MG TABLET PO (08:47)
[2023-06-28] MEDS: HYDROXYUREA (*CHEMO) 500 MG CAPSULE PO (08:48)
[2023-06-28] MEDS: methADONE HCL (*CRX) 5 MG TABLET 10 MG PO (08:48)
[2023-06-28 09:25] LABS: Reticulocyte Percent 6.35 % (0.7-4.3)
--- NOTE | 2023-06-28 12:01 | PM.DS ---
DS: Admitting Diagnosis Discharge Date 06/28/23 Admitting Diagnosis sickle cell crisis DS: Discharge Diagnosis Discharge Diagnosis (1) Sickle cell pain crisis: Code(s): D57.00 - Hb-SS disease with crisis, unspecified Status: Acute Assessment and Plan: Patient has history of sickle cell disease and presented with pain crisis. Reporting pain mostly in his legs. Multiple hospitalizations for the same complaints. Continue Warfarin, folic acid, and Hydroxyurea Hematology following - see Dr. 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 Work up in the hospital included a chest x-ray with mild bibasilar discoid atelectasis or scarring. Initial labs revealed WBC 10.4, Hgb 9.1 down from 10.2 initially, absolute retic count 0.17, 5.29% retic, 32.1% immature retic, total bili 1.5, liver enzymes are normal. EKG showing sinus rhythm with a rate of 72, QTc 454. Patient admitted for pain control. His INR was subtherapeutic on admission as patient is on Coumadin daily. Hematology following and discussed adjusted, increased dose to 15 mg to be continued at d/c and to follow up with them in clinic. Patient no longer requiring IV Dilaudid for his pain and believes he is ready to go home today. He is stable for d/c. Status at Discharge Functional status at discharge: independent ambulation Overall status at discharge: patient is back to baseline Time Spent with Patient Time attestation: Total time spent providing and/or coordinating discharge services: Exam Narrative: General: In no acute distress, well nourished Head: atraumatic, no encephalopathy Eyes: EOMI, PERRLA ENT: moist mucous membranes Neck: supple, no JVD, no adenopathy, trachea midline Cardiac: RRR, No murmur, gallops or friction rubs, peripheral pulses intact. Respiratory: Lungs clear to auscultation, no adventitious lung sounds Gastrointestinal: soft, non-distended, non-tender, normoactive bowel sounds. : voiding without difficulty. Extremities: moves all extremities well, no edema, good ROM, strength 5/5 Skin: clean, dry, intact. No wounds or lesions. Neuro: Alert and oriented x4, cranial nerves intact, no neuro deficits. Psych: normal mood, normal affect, interactive DS: Data Data Completed and Pending Labs on day of discharge: Labs from last 24 hours 06/28/23 06/28/23 05:52 04:51 WBC 10.8 H RBC 3.34 L Hgb 10.6 L Hct 30.6 L MCV 91.6 MCH 31.7 MCHC 34.6 RDW 14.5 Plt Count 304 MPV 10.4 Absolute Retic 0.21 H Percent Retic 6.35 H Immature Retic Fraction 32.4 H Retic Hgb Content 30.8 PT 29.7 H INR 2.6 Sodium 140 Potassium 4.4 Chloride 109 H Carbon Dioxide 24 Anion Gap 7 L BUN 9 Creatinine 0.60 L Estim Creat Clear Calc 161 Estimated GFR > 60 Glucose 110 Calcium 9.0 Total Bilirubin 1.3 AST 39 ALT 18 Alkaline Phosphatase 75 C-Reactive Protein 1.1 Total Protein 8.0 Albumin 4.5 Discharge Plan Discharge Attending physician on discharge: Rena Schwarz Consulting providers: Jone Marks Discharging Clinician: Gaviota Islas Anticipated Discharge [place]
== END 2023-06-28 11:35 | disposition home or self-care (01) | DRG 662 ==
LOC: ANHED 16:46 → ANH2MED 17:29
PROVIDERS: Nurse Practitioner Acute Care; Physician Assistant; Admitting Provider Student in an Organized Health Care Education/Training Program; Emergency Provider Emergency Medicine; PCP Internal Medicine Hematology & Oncology; Visit Provider Nurse Practitioner
DX: D57.219 Sickle-cell/Hb-C disease with crisis, unspecified (principal); R79.1 Abnormal coagulation profile; G89.29 Other chronic pain; Z79.01 Long term (current) use of anticoagulants; Z79.891 Long term (current) use of opiate analgesic; Z86.718 Personal history of other venous thrombosis and embolism; Z86.711 Personal history of pulmonary embolism
CPT/HCPCS: 36415; 71045; 80048; 80053; 81003; 83615; 83735; 85014; 85018; 85025; 85027; 85046; 85055; 85610; 86140; 93005; 93970; 96361; 96374; 96375; 96376; 99285; A9270; G0379; J1170; J2405; J7120

== ENCOUNTER 2023-07-18 14:59 | Outpatient (CLI) | payer OTHER, SELFPAY ==
[2023-07-18 15:13] LABS: Basophils Absolute Auto 0.1 K/mm3 (0.0-0.1); Basophils Percent Auto 0.9 % (0.2-1.2); Eosinophils Absolute Auto 0.5 K/mm3 (0-0.3); Eosinophils Percent Auto 4.9 % (0-4.4); Hematocrit 27.9 % (42.0-52.0); Hemoglobin 9.9 g/dL (14.0-18.0); Immature Granulocyte Absolute 0.02 K/mm3 (0.00-0.031); Immature Granulocyte Percent A 0.2 % (0-0.5); Lymphocytes Absolute Auto 4.45 K/mm3 (0.9-3.2); Lymphocytes Percent Auto 40.3 % (18.3-44.2); Mean Corpuscular HGB Conc 35.5 g/dl (32-36); Mean Corpuscular Hemoglobin 31.6 pg (26-34); Mean Corpuscular Volume 89.1 fl (80-100); Mean Platelet Volume 10.1 fl (7.4-10.4); Monocytes Percent Auto 9.2 % (2.6-8.5); Neutrophils Absolute Auto 4.9 K/mm3 (1.3-6.7); Neutrophils Percent Auto 44.5 % (45.5-73.1); Nucleated Red Blood Cells Perc 0.3 % (0.0-0.2); Platelet Count Result 324 k/mm3 (150-375); Red Blood Count 3.13 M/mm3 (4.6-6.20); Red Cell Distribution Width 14.6 % (11.5-14.5)
[2023-07-18 15:17] LABS: Blood Urea Nitrogen 7 mg/dL (8-26); Carbon Dioxide 27 mmol/L (22-30); Chloride 104 mmol/L (98-109); Estimated Glomerular Filt Rate > 60; Glucose 106 mg/dL (70-105); Potassium 3.7 mmol/L (3.5-4.9); Sodium 143 mmol/L (138-146)
[2023-07-18 16:36] LABS: INR 1.1; Prothrombin Time 14.8 Seconds (11.1-14.7)
[2023-07-18 16:51] LABS: Alanine Aminotransferase 23 U/L (6-50); Albumin Level 4.5 g/dL (3.5-5.1); Alkaline Phosphatase 73 U/L (38-126); Anion Gap 8 mmol/L (4-12); Aspartate Amino Transferase 37 U/L (17-59); Bilirubin,Total 1.2 mg/dL (0.2-1.3); Blood Urea Nitrogen 8 mg/dL (9-20); Carbon Dioxide 27 mmol/L (22-30); Chloride 105 mmol/L (98-107); Estimated Glomerular Filt Rate > 60; Glucose 109 mg/dL (65-110); Potassium 3.8 mmol/L (3.4-5.0); Sodium 140 mmol/L (137-145)
== END 2023-07-18 15:00 | disposition home or self-care (01) ==
PROVIDERS: PCP Internal Medicine Hematology & Oncology; Visit Provider Internal Medicine Hematology & Oncology
DX: D57.20 Sickle-cell/Hb-C disease without crisis (principal)
CPT/HCPCS: 36415; 80047; 80053; 85025; 85610

== ENCOUNTER 2023-08-18 20:36 | Emergency (ER) | payer OTHER, SELFPAY ==
--- NOTE | ~2023-08-18 | XR_ITS ---
EXAMINATION: XR chest 1V portable DATE: 08/18/2023 21:06 INDICATION: Sickle cell disease TECHNIQUE: frontal view of the chest was obtained. COMPARISON: Chest radiograph dated 07/02/2023 and 12/30/2022 FINDINGS: Again seen are streaky and linear opacities at the bilateral lung bases and favor chronic atelectasis /scarring. No new airspace opacities, pulmonary edema, pleural effusion or pneumothorax. Heart size i s normal. The cardiomediastinal silhouette is normal. Visualized bones and soft tissues are unremarka ble. IMPRESSION: 1. Stable appearance of chronic atelectasis/scarring at the bilateral lung bases. Reviewed, dictated and finalized at location A. IMPRESSION: 1. Stable appearance of chronic atelectasis/scarring at the bilateral lung base s.
[2023-08-18 20:37] VITALS: BP 122/78; PULSE 106; RESP 20; TEMP 36.5; O2SAT 97
[2023-08-18 20:46] VITALS: BP 112/82; PULSE 90; RESP 16; O2SAT 97
--- NOTE | 2023-08-18 20:51 | ED.GENADULT ---
HPI - General Adult General Chief complaint: Unspecified Stated complaint: sickle cell flare up Time Seen by Provider: 08/18/23 20:45 Source: patient Mode of arrival: ambulatory Limitations: no limitations History of Present Illness HPI narrative: 38 years old male with history of sickle cell disease came to the emergency room complaining of back pain, rib pain and thigh pain started 1-2 days ago. Patient currently on oxycodone 10 mg 2 to 3 times a day, methadone 10 mg 3 times a day. Last oxycodone intake was this morning, last methadone intake was yesterday. Patient is supposed to refill his oxycodone 2 days and supposed to refill his methadone in 2 days. He denies any fever or chills or nausea or vomiting. Related Data Home Medications Medication Instructions Recorded Confirmed folic acid 1 mg tablet 1 mg PO DAILY 02/16/19 06/22/23 methadone 10 mg tablet 10 mg PO TID 08/22/20 06/22/23 oxycodone-acetaminophen 10 mg-325 1 tablet PO BID PRN Pain, Moderate 08/22/20 06/23/23 mg tablet ibuprofen 800 mg tablet 800 mg PO PRN 12/30/22 06/22/23 warfarin 10 mg tablet 10 mg PO HS 06/22/23 06/22/23 Allergies Allergy/AdvReac Type Severity Reaction Status Date / Time Fish Containing Products Allergy Mild Itching Verified 09/17/22 12:56 Review of Systems Review of Systems: All systems reviewed & are unremarkable except as noted in HPI and below PMFSH Past Medical History Medical History Acute chest syndrome Chronic anticoagulation Due to history of DVT and pulmonary embolism. Chronic narcotic use On methadone with oxycodone for chronic pain related to sickle cell disease. 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 Deep venous thrombosis Noncompliance History of noncompliance with anticoagulation and hydroxyurea. Pulmonary embolism Sickle cell disease, type SC Surgical History Surgical History History of hand surgery Tendon surgery on right 5th finger. Family History Family History Grandparent Diabetes mellitus Acute myocardial infarction Sibling Asthma Sibling Asthma Mother Hypertension Sickle cell trait Son Sickle cell trait Daughter Sickle cell trait Grandparent No problems noted. Other Diabetes mellitus Father Sickle cell trait Social History Social History Social History: The patient lives in [place] with his family. He is on disability due to sickle cell disease and chronic pain. He is a lifelong nonsmoker and denies alcohol and illicit substance abuse. He uses marijuana to help with pain. He designates Jolly Zuniga (mother) or Lidiamishel Ashkan (friend) as his surrogate decision makers and he wishes to be a full code. Smoking status: Never smoker Second hand tobacco smoke exposure: No Additional smoking assessment comments: Smokes marijuana when pain meds unavailable. Alcohol intake: never Substance use: current Substance use type: marijuana Other substance usage details: For back when he doesn't have any pain meds available. Last use: 12/28/22 Do You Feel Safe in your Home?: Yes Lack of Transportation: No Lack of Food: Never True Current Housing: I Have Housing Concerned About Future Housing: No Difficulty Paying Gas/Electric Bills: No Difficulty Paying for Meds: No Currently Unemployed: No Education: High School Diploma/GED Difficulty w/ Childcare or Family Care: No Living arrangements: with family Occupation/Education: other Spiritual care concerns: No Agree to blood products: Yes Exam Narrative: General appearance: Well-developed, well-nourished Skin: Normal color Head: Normocephalic, nontraumatic Eyes: Clear conjunctiva ENT: Oropharynx normal, ears normal, nose normal Neck: Supple, no
[2023-08-18] MEDS: HYDROmorphone HCL INJ (*CRX) 1 MG/ML SYR IV PUSH ×2 (21:11→22:06)
[2023-08-18] MEDS: SODIUM CHLORIDE 0.9% IV 1,000 ML 999 ML IV CONT (21:11)
[2023-08-18] MEDS: ONDANSETRON INJ 4 MG/2 ML VIAL IV PUSH (21:11)
[2023-08-18 21:15] LABS: Basophils Absolute Auto 0.1 K/mm3 (0.0-0.1); Basophils Percent Auto 0.6 % (0.2-1.2); Eosinophils Absolute Auto 0.3 K/mm3 (0-0.3); Eosinophils Percent Auto 2.5 % (0-4.4); Hematocrit 30.1 % (42.0-52.0); Hemoglobin 10.8 g/dL (14.0-18.0); Immature Granulocyte Absolute 0.03 K/mm3 (0.00-0.031); Immature Granulocyte Percent A 0.2 % (0-0.5); Immature Reticulocyte Fraction 29.8 % (3.0-15.9); Lymphocytes Absolute Auto 4.15 K/mm3 (0.9-3.2); Mean Corpuscular HGB Conc 35.9 g/dl (32-36); Mean Corpuscular Hemoglobin 31.2 pg (26-34); Mean Platelet Volume 10.6 fl (7.4-10.4); Neutrophils Absolute Auto 6.7 K/mm3 (1.3-6.7); Neutrophils Percent Auto 54.7 % (45.5-73.1); Nucleated Red Blood Cells Perc 0.2 % (0.0-0.2); Platelet Count Result 344 k/mm3 (150-375); Red Blood Count 3.46 M/mm3 (4.6-6.20); Red Cell Distribution Width 13.9 % (11.5-14.5); Reticulocyte Hemoglobin Conten 30.1 pg (28.2-36.6); Reticulocyte Percent 5.64 % (0.7-4.3); White Blood Count 12.2 K/mm3 (4.5-10.0)
[2023-08-18 21:23] LABS: INR 1.6; Prothrombin Time 20.4 Seconds (11.1-14.7)
[2023-08-18 21:24] LABS: Partial Thromboplastin Time 31.9 Seconds (22.3-36.8)
[2023-08-18 21:39] LABS: Anisocytosis 1+; Hypochromasia 1+; Large Platelets Present; Platelet Clumps Present; Platelet Estimate Adequate (Adequate); Poikilocytosis 2+
[2023-08-18 21:40] LABS: Ovalocytes 1+; Schistocytes 1+; Sickle Cells 1+; Target Cells 2+
[2023-08-18] MEDS: HYDROmorphone HCL INJ (*CRX) 1 MG/ML SYR 2 MG IV PUSH (21:56)
[2023-08-18 21:58] VITALS: BP 129/79; PULSE 80; RESP 18; O2SAT 96
[2023-08-18] MEDS: diphenhydrAMINE HCl INJ 50 MG/ML VIAL 25 MG IV PUSH (22:13)
[2023-08-18 22:19] LABS: Alanine Aminotransferase 17 U/L (6-50); Albumin Level 4.4 g/dL (3.5-5.1); Alkaline Phosphatase 73 U/L (38-126); Anion Gap 7 mmol/L (4-12); Aspartate Amino Transferase 28 U/L (17-59); Bilirubin,Total 1.2 mg/dL (0.2-1.3); Blood Urea Nitrogen 7 mg/dL (9-20); Calcium 8.9 mg/dL (8.4-10.2); Carbon Dioxide 25 mmol/L (22-30); Chloride 111 mmol/L (98-107); Estimated CRCL calculation 143 ml/min; Estimated Glomerular Filt Rate > 60; Glucose 107 mg/dL (65-110); Lactate Dehydrogenase 224 U/L (120-246); Potassium 3.8 mmol/L (3.4-5.0); Sodium 143 mmol/L (137-145)
[2023-08-18 22:35] VITALS: O2SAT 94
[2023-08-18 22:43] LABS: Appearance Urine Clear (Clear); Bilirubin Urine Negative (Negative); Blood Urine Negative (Negative); Color Urine Yellow (Yellow); Glucose Urine UA Negative (Negative); Ketones Urine Negative (Negative); Leukocyte Esterase Ur Negative LEU/UL (Negative); Nitrate Urine Negative (Negative); Protein Urine Negative (Negative); Specific Grav Ur 1.014 (1.001-1.035)
[2023-08-18 22:52] LABS: Add Urine Microscopic? NO
[2023-08-18 23:06] VITALS: BP 119/83; PULSE 85; RESP 16; O2SAT 98
== END 2023-08-18 23:06 | disposition home or self-care (01) ==
PROVIDERS: Emergency Provider Emergency Medicine; PCP Internal Medicine Hematology & Oncology
DX: D57.211 Sickle-cell/Hb-C disease with acute chest syndrome (principal); G89.4 Chronic pain syndrome; Z86.718 Personal history of other venous thrombosis and embolism; Z86.711 Personal history of pulmonary embolism
CPT/HCPCS: 36415; 71045; 80053; 81003; 83615; 85025; 85046; 85055; 85610; 85730; 96361; 96374; 96375; 96376; 99284; J1170; J1200; J2405; J7030

== ENCOUNTER 2023-10-17 12:41 | Emergency (ER) | payer OTHER, SELFPAY ==
--- NOTE | ~2023-10-17 | XR_ITS ---
XR chest 2V Ordering provider: Halina Oconnell PA-C History: 38 years Male with . rib pain . Comparison: August 18, 2023 FINDINGS: MEDIASTINUM: The cardiac silhouette is not enlarged. LUNGS: No effusion or pneumothorax. Opacification the left lung base suggestive of atelectasis. Promi nent markings in the right lung base. OTHER: No free air under the diaphragm. IMPRESSION: Bibasilar atelectasis unchanged from previous examination. Reviewed, dictated and finalized at location A.
[2023-10-17 12:47] VITALS: BP 126/81; PULSE 91; RESP 15; O2SAT 95
[2023-10-17 13:12] VITALS: BP 119/92; PULSE 94; RESP 16; TEMP 36.7; O2SAT 94
--- NOTE | 2023-10-17 13:51 | ECG_ITS ---
Test Date: 2023-10-17 14:00:50 Measurements Intervals [place] Rate: 92 P: 0 MN: 0 QRS: 31 QRSD: 86 T: 27 QT: 342 QTc: 424 Interpretive Statements SINUS RHYTHM NONSPECIFIC ST & T-WAVE ABNORMALITY- ANTEROLAT/INF LEADS BASELINE ARTIFACT- I, III, AVR, AVL, AVF, V4-V6 BORDERLINE ECG No previous ECG available for comparison Electronically Signed On 10-17-2023 16:50:07 CDT by Ricky Modi D.O.
--- NOTE | 2023-10-17 13:53 | ED.GENADULT ---
HPI - General Adult General Chief complaint: Unspecified Stated complaint: sickle cell crisis Time Seen by Provider: 10/17/23 13:28 Source: patient Mode of arrival: ambulatory Limitations: no limitations History of Present Illness HPI narrative: This is a 38-year-old male presents to the emergency department for sickle cell pain. Reports he has had worsening generalized pain in his back and bilateral ribs. He has been taking his prescribed pain medication without relief. His pharmaceutical physician is Dr. Marks. Denies fever, cough, shortness of breath. Related Data Home Medications Medication Instructions Recorded Confirmed folic acid 1 mg tablet 1 mg PO DAILY 02/16/19 06/22/23 methadone 10 mg tablet 10 mg PO TID 08/22/20 06/22/23 oxycodone-acetaminophen 10 mg-325 1 tablet PO BID PRN Pain, Moderate 08/22/20 06/23/23 mg tablet ibuprofen 800 mg tablet 800 mg PO PRN 12/30/22 06/22/23 warfarin 10 mg tablet 10 mg PO HS 06/22/23 06/22/23 Allergies Allergy/AdvReac Type Severity Reaction Status Date / Time Fish Containing Products Allergy Mild Itching Verified 10/17/23 13:16 Review of Systems Review of Systems: CONSTITUTIONAL: Denies fever CARDIOVASCULAR: Reports chest pain. Denies edema. RESPIRATORY: Denies cough or dyspnea. MUSCULOSKELETAL: Reports back pain, joint pain, and myalgia. NEUROLOGIC: Denies numbness, or weakness. All systems reviewed & are unremarkable except as noted in HPI and below PMFSH Past Medical History Medical History Acute chest syndrome Chronic anticoagulation Due to history of DVT and pulmonary embolism. Chronic narcotic use On methadone with oxycodone for chronic pain related to sickle cell disease. 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 Deep venous thrombosis Noncompliance History of noncompliance with anticoagulation and hydroxyurea. Pulmonary embolism Sickle cell disease, type SC Surgical History Surgical History History of hand surgery Tendon surgery on right 5th finger. Family History Family History Grandparent Diabetes mellitus Acute myocardial infarction Sibling Asthma Sibling Asthma Mother Hypertension Sickle cell trait Son Sickle cell trait Daughter Sickle cell trait Grandparent No problems noted. Other Diabetes mellitus Father Sickle cell trait Social History Social History Social History: The patient lives in [place] with his family. He is on disability due to sickle cell disease and chronic pain. He is a lifelong nonsmoker and denies alcohol and illicit substance abuse. He uses marijuana to help with pain. He designates Jolly Zuniga (mother) or Rossyralphmishel Ashkan (friend) as his surrogate decision makers and he wishes to be a full code. Smoking status: Never smoker Second hand tobacco smoke exposure: No Additional smoking assessment comments: Smokes marijuana when pain meds unavailable. Alcohol intake: never Substance use: current Substance use type: marijuana Other substance usage details: For back when he doesn't have any pain meds available. Last use: 12/28/22 Do You Feel Safe in your Home?: Yes Lack of Transportation: No Lack of Food: Never True Current Housing: I Have Housing Concerned About Future Housing: No Difficulty Paying Gas/Electric Bills: No Difficulty Paying for Meds: No Currently Unemployed: No Education: High School Diploma/GED Difficulty w/ Childcare or Family Care: No Living arrangements: with family Occupation/Education: other Spiritual care concerns: No Agree to blood products: Yes Exam Narrative: GENERAL: Well-appearing, well-nourished, and in no acute distress. HEAD: Normocephalic, atraumatic. EYES: PERRLA and EOMI. ENT: Nares clear, no rhinorrh
[2023-10-17 14:05] LABS: Appearance Urine Clear (Clear); Bilirubin Urine Negative (Negative); Blood Urine Negative (Negative); Color Urine Yellow (Yellow); Glucose Urine UA Negative (Negative); Ketones Urine Negative (Negative); Leukocyte Esterase Ur Negative LEU/UL (Negative); Nitrate Urine Negative (Negative); Protein Urine Negative (Negative); Specific Grav Ur 1.011 (1.001-1.035); pH Urine 6.5 (5.0-9.0)
[2023-10-17 14:08] LABS: Add Urine Microscopic? NO
[2023-10-17 14:14] LABS: Basophils Absolute Auto 0.1 K/mm3 (0.0-0.1); Basophils Percent Auto 0.6 % (0.2-1.2); Eosinophils Absolute Auto 0.3 K/mm3 (0-0.3); Eosinophils Percent Auto 1.6 % (0-4.4); Hematocrit 27.2 % (42.0-52.0); Hemoglobin 9.9 g/dL (14.0-18.0); Immature Granulocyte Absolute 0.08 K/mm3 (0.00-0.031); Immature Granulocyte Percent A 0.5 % (0-0.5); Immature Platelet Fraction Pct 3.6 % (0.9-11.2); Immature Reticulocyte Fraction 37.7 % (3.0-15.9); Lymphocytes Absolute Auto 3.29 K/mm3 (0.9-3.2); Lymphocytes Percent Auto 18.7 % (18.3-44.2); Mean Corpuscular HGB Conc 36.4 g/dl (32-36); Mean Corpuscular Volume 85.3 fl (80-100); Monocytes Absolute Auto 1.2 K/mm3 (0.1-0.6); Monocytes Percent Auto 7.1 % (2.6-8.5); Neutrophils Absolute Auto 12.6 K/mm3 (1.3-6.7); Neutrophils Percent Auto 71.5 % (45.5-73.1); Nucleated Red Blood Cells Perc 0.1 % (0.0-0.2); Platelet Count Result 379 k/mm3 (150-375); Red Blood Count 3.19 M/mm3 (4.6-6.20); Red Cell Distribution Width 14.3 % (11.5-14.5); Reticulocyte Hemoglobin Conten 30.4 pg (28.2-36.6); Reticulocyte Percent 5.59 % (0.7-4.3); Reticulocytes Absolute 0.18 10^6/uL (0.02-0.10); White Blood Count 17.6 K/mm3 (4.5-10.0)
[2023-10-17 14:20] LABS: Lactate Dehydrogenase 193 U/L (120-246)
[2023-10-17 14:22] LABS: Alanine Aminotransferase 15 U/L (6-50); Albumin Level 4.3 g/dL (3.5-5.1); Alkaline Phosphatase 74 U/L (38-126); Anion Gap 5 mmol/L (4-12); Aspartate Amino Transferase 24 U/L (17-59); Bilirubin,Total 0.8 mg/dL (0.2-1.3); Blood Urea Nitrogen 7 mg/dL (9-20); Calcium 8.6 mg/dL (8.4-10.2); Carbon Dioxide 26 mmol/L (22-30); Chloride 111 mmol/L (98-107); Estimated CRCL calculation 143 ml/min; Estimated Glomerular Filt Rate > 60; Glucose 101 mg/dL (65-110); INR 1.2; Potassium 3.9 mmol/L (3.4-5.0); Prothrombin Time 16.2 Seconds (11.1-14.7); Sodium 142 mmol/L (137-145)
[2023-10-17] MEDS: HYDROmorphone HCL INJ (*CRX) 1 MG/ML SYR IV PUSH ×2 (14:22→15:57)
[2023-10-17] MEDS: ONDANSETRON INJ 4 MG/2 ML VIAL IV PUSH (14:22)
[2023-10-17] MEDS: SODIUM CHLORIDE 0.9% IV 1,000 ML 999 ML IV CONT (14:22)
[2023-10-17] MEDS: ACETAMINOPHEN 500 MG TABLET 1000 MG PO (14:22)
[2023-10-17 14:23] LABS: Partial Thromboplastin Time 27.9 Seconds (22.3-36.8)
[2023-10-17 14:28] LABS: Platelet Estimate Slightly Increased (Adequate)
[2023-10-17 14:29] LABS: Ovalocytes 1+; Schistocytes None Seen; Sickle Cells 1+; Target Cells 2+
[2023-10-17 14:34] LABS: Troponin I < 0.012 ng/mL (0.000-0.034)
[2023-10-17 16:16] VITALS: BP 111/62; PULSE 74; RESP 13; O2SAT 93
[2023-10-17 16:46] VITALS: BP 111/70; PULSE 70; RESP 12; O2SAT 93
[2023-10-17] MEDS: HYDROmorphone HCL INJ (*CRX) 1 MG/ML SYR 2 MG IV PUSH (17:07)
[2023-10-17 17:16] VITALS: BP 112/77; PULSE 87; RESP 15; O2SAT 95
== END 2023-10-17 18:46 | disposition home or self-care (01) ==
PROVIDERS: Emergency Provider Physician Assistant; PCP Internal Medicine Hematology & Oncology
DX: D57.211 Sickle-cell/Hb-C disease with acute chest syndrome (principal); Z86.718 Personal history of other venous thrombosis and embolism; Z86.711 Personal history of pulmonary embolism; Z79.01 Long term (current) use of anticoagulants; Z79.631 Long term (current) use of antimetabolite agent
CPT/HCPCS: 36415; 71046; 80053; 81003; 83615; 84484; 85025; 85046; 85055; 85610; 85730; 93005; 96361; 96374; 96375; 96376; 99284; A9270; J1170; J1885; J2405; J7030

== ENCOUNTER 2023-12-07 16:02 | Inpatient (IN) | payer MEDICARE, OTHER, SELFPAY ==
--- NOTE | ~2023-12-07 | XR_ITS ---
EXAMINATION: XR chest 1V portable DATE: 12/07/2023 23:24 INDICATION: Chest pain. Sickle cell disease. TECHNIQUE: A single frontal view of the chest was obtained. COMPARISON: Chest 2 views 10/17/2023 FINDINGS: There are chronic airspace opacities at the lung bases. No pleural effusion or pneumothorax . The heart size is normal. IMPRESSION: 1. Chronic airspace opacities at the lung bases, consistent with sickle cell chronic lung disease. Reviewed, dictated and finalized at location A. IMPRESSION: 1. Chronic airspace opacities at the lung bases, consistent with sickle cell ch ronic lung disease.
[2023-12-07 17:28] VITALS: BP 116/74; PULSE 73; RESP 14; TEMP 36.6; O2SAT 100
--- NOTE | 2023-12-07 22:09 | ED.GENADULT ---
HPI - General Adult General Chief complaint: Unspecified Stated complaint: sickle cell anemia pain Time Seen by Provider: 12/07/23 22:06 Source: patient Mode of arrival: ambulatory Limitations: no limitations History of Present Illness HPI narrative: Patient with sickle cell disease presents with pain starting last night. Baseline regimen methadone 10mg TID (still has but about to be out) and PRN oxy 10mg (just got a new refill) wasn't working. Complaining of chest pain and some difficulty breathing. Chest pain is primarily along his right side and right ribs. Denies a cough. Also takes hydroxyurea and folic acid as well as ibuprofen and warfarin. Doesn't know if his shots for encapsulated organisms are UTD. No cough. Sees Tunnel Inspector Dr Marks who he saw recently a few months back. Typically starts with Dilaudid 2mg by report. Related Data Home Medications Medication Instructions Recorded Confirmed folic acid 1 mg tablet 1 mg PO DAILY 02/16/19 12/08/23 methadone 10 mg tablet 10 mg PO TID 08/22/20 12/08/23 oxycodone-acetaminophen 10 mg-325 1 tablet PO BID PRN Pain, Moderate 08/22/20 12/08/23 mg tablet ibuprofen 800 mg tablet 800 mg PO PRN 12/30/22 12/08/23 warfarin 10 mg tablet 10 mg PO HS 06/22/23 12/08/23 Allergies Allergy/AdvReac Type Severity Reaction Status Date / Time Fish Containing Products Allergy Mild Itching Verified 12/07/23 16:04 [facility] Past Medical History Medical History Acute chest syndrome Chronic anticoagulation Due to history of DVT and pulmonary embolism. Chronic narcotic use On methadone with oxycodone for chronic pain related to sickle cell disease. 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 Deep venous thrombosis Noncompliance History of noncompliance with anticoagulation and hydroxyurea. Pulmonary embolism Sickle cell disease, type SC Surgical History Surgical History History of hand surgery Tendon surgery on right 5th finger. Family History Family History Grandparent Diabetes mellitus Acute myocardial infarction Sibling Asthma Sibling Asthma Mother Hypertension Sickle cell trait Son Sickle cell trait Daughter Sickle cell trait Grandparent No problems noted. Other Diabetes mellitus Father Sickle cell trait Social History Social History (Updated 12/08/23 @ 17:59 by Zahraa Birch PA-C) Social History: The patient lives in [place] with his family. He is on disability due to sickle cell disease and chronic pain. He is a lifelong nonsmoker and denies alcohol and illicit substance abuse. He uses marijuana to help with pain, states this happens 1-2x per year. He designates Jolly Zuniga (mother) or Keyla Luther (friend) as his surrogate decision makers and he wishes to be a full code. Smoking status: Never smoker Second hand tobacco smoke exposure: No Additional smoking assessment comments: Smokes marijuana when pain meds unavailable. Alcohol intake: never Substance use: never Substance use type: marijuana Other substance usage details: For back when he doesn't have any pain meds available. Last use: 12/28/22 Do You Feel Safe in your Home?: Yes Lack of Transportation: No Lack of Food: Never True Current Housing: I Have Housing Concerned About Future Housing: No Difficulty Paying Gas/Electric Bills: No Difficulty Paying for Meds: No Currently Unemployed: No Education: Associate Degree Difficulty w/ Childcare or Family Care: No Living arrangements: with family Occupation/Education: other Spiritual care concerns: No Agree to blood products: Yes Exam Narrative: GENERAL: Well-appearing, well-nourished, in mild acute distress. HEAD: Normocephalic, atraumatic. EYES: Non injected, non icteric ENT: Nares clear, no rhinorrhea or epistaxis. NECK: Supple. CHEST: Speaking in full sentences. No respiratory distress. HEART: Regular rate and rhythm. ABDOMEN: Soft, nondistended. EXTREMITIES: Normal range of motion. No lower extremity edema. SKIN: Warm, dry, no rash. NEURO: No focal deficits. Alert and oriented x3. PSYCH: Normal mood and affect. Course Vital Signs Vital signs: Vital Signs Temperature 97.8 F 12/07/23 17:28 Pulse Rate 73 12/07/23 17:28 Respiratory Rate 14 12/07/23 17:28 Blood Pressure 116/74 12/07/23 17:28 Pulse Oximetry 100 12/07/23 17:28 Temperature 97.9 F 08/26/24 14:00 Pulse Rate 79 12/09/23 14:00 Respiratory Rate 16 12/09/23 14:00 Blood Pressure 112/70 12/09/23 14:00 Pulse Oximetry 98 12/09/23 14:00 Oxygen Delivery Room Air 12/09/23 10:19 Fraction of Inspired Oxygen 21 12/09/23 10:19 Medical Decision Making MDM Narrative Medical decision making narrative: Patient with sickle cell disease presents with pain since last night. Baseline regimen not working though has enough tablets, not in need of refills at this time. Chest pain primarily along right side of chest and ribs. In the emergency department they are afebrile with vital signs within normal limits. Anemia appears stable from prior and patient has thrombocytosis though this was also seen previously. I did have concerns for acute chest syndrome based on my independent interpretation of chest xray though patient not hypoxic and radiologist interpretation does not concur. Treating as acute pain crisis and received 3 doses 2mg Dilaudid as well as baseline methadone since has missed dose while in the ED. Patient reassessed multiple times. Resting comfortably at times but continues to endorse pain thus I do feel we have not fully treated his pain and patient will require admission to better control his pain. Admitted as obs after discussing with Dr Juarez. Differential Diagnosis Differential Diagnosis: Sickle cell crisis including concerns for acute anemia, vaso-occlusive crisis, acute chest syndrome; acute viral syndrome; PNA Vital Signs Vital Signs: Vital Signs Temperature 97.8 F 12/07/23 17:28 Pulse Rate 73 12/07/23 17:28 Respiratory Rate 14 12/07/23 17:28 Blood Pressure 116/74 12/07/23 17:28 Pulse Oximetry 100 12/07/23 17:28 Temperature 97.9 F 12/09/23 14:00 Pulse Rate 79 12/09/23 14:00 Respiratory Rate 16 12/09/23 14:00 Blood Pressure 112/70 12/09/23 14:00 Pulse Oximetry 98 12/09/23 14:00 Oxygen Delivery Room Air 12/09/23 10:19 Fraction of Inspired Oxygen 21 12/09/23 10:19 Lab Data Lab results reviewed: Yes I reviewed the patient's lab results. 12/09/23 07:20 12/09/23 07:20 Labs: Lab Results 0812/07/23 12/07/23 Range/Units 22:58 22:59 23:53 WBC 10.0 (4.5-10.0) K/mm3 RBC 3.26 L (4.6-6.20) M/mm3 Hgb 10.3 L (14.0-18.0) g/dL Hct 28.6 L (42.0-52.0) % MCV 87.7 (80-100) fl MCH 31.6 (26-34) pg MCHC 36.0 (32-36) g/dl RDW 13.9 (11.5-14.5) % Plt Count 395 H (150-375) k/mm3 MPV 10.1 (7.4-10.4) fl Immature Gran % (Auto) 0.3 (0-0.5) % Neut % (Auto) 42.8 L (45.5-73.1) % Lymph % (Auto) 41.6 (18.3-44.2) % [place] % (Auto) 8.8 H (2.6-8.5) % Eos % (Auto) 5.5 H (0-4.4) % Baso % (Auto) 1.0 (0.2-1.2) % Lymph # (Auto) 4.14 H (0.9-3.2) K/mm3 [place] # (Auto) 0.9 H (0.1-0.6) K/mm3 Eos # (Auto) 0.6 H (0-0.3) K/mm3 Baso # (Auto) 0.1 (0.0-0.1) K/mm3 Abs Immat Gran (auto) 0.03 (0.00-0.031) K/mm3 Absolute Neuts (auto) 4.3 (1.3-6.7) K/mm3 Absolute Nucleated RBC 0.020 H (0.0-0.012) K/mm3 Nucleated RBC % 0.2 (0.0-0.2) % Platelet Estimate Adequate (Adequate) % Immature Plt Fraction 3.8 (0.9-11.2) % Hypochromasia 1+ Target Cells 2+ Schistocytes Rare Absolute Retic 0.17 H (0.02-0.10) 10^6/uL Percent Retic 5.19 H (0.7-4.3) % Immature Retic Fraction 34.5 H (3.0-15.9) % Retic Hgb Content 31.1 (28.2-36.6) pg PT (11.1-14.7) Seconds INR APTT (22.3-36.8) Seconds Sodium 140 (137-145) mmol/L Potassium 3.6 (3.4-5.0) mmol/L Chloride 104 (98-107) mmol/L Carbon Dioxide 26 (22-30) mmol/L Anion Gap 10 (4-12) mmol/L BUN 5 L (9-20) mg/dL Creatinine 0.70 (0.7-1.3) mg/dL Estim Creat Clear Calc 152 ml/min Estimated GFR > 60 (59 - ) Glucose 113 H (65-110) mg/dL Calcium 9.4 (8.4-10.2) mg/dL Total Bilirubin 0.8 (0.2-1.3) mg/dL AST 33 (17-59) U/L ALT 16 (6-50) U/L Alkaline Phosphatase 72 (38-126) U/L Lactate Dehydrogenase 197 (120-246) U/L Total Protein 8.0 (6.3-8.2) g/dL Albumin 4.2 (3.5-5.1) g/dL Influenza A (RT-PCR) Negative (Negative) Influenza B (RT-PCR) Negative (Negative) RSV (RT-PCR) Negative (Negative) SARS-CoV-2 RNA (RT-PCR) Negative (Negative) 12/08/23 12/09/23 Range/Units 08:46 07:20 WBC 8.2 8.5 (4.5-10.0) K/mm3 RBC 3.03 L 3.06 L (4.6-6.20) M/mm3 Hgb 9.4 L 9.8 L (14.0-18.0) g/dL Hct 27.0 L 27.6 L (42.0-52.0) % MCV 89.1 90.2 (80-100) fl MCH 31.0 32.0 (26-34) pg MCHC 34.8 35.5 (32-36) g/dl RDW 13.6 13.8 (11.5-14.5) % Plt Count 357 363 (150-375) k/mm3 MPV 10.2 10.2 (7.4-10.4) fl Immature Gran % (Auto) 0.2 0.2 (0-0.5) % Neut % (Auto) 38.8 L 35.7 L (45.5-73.1) % Lymph % (Auto) 44.4 H 45.2 H (18.3-44.2) % [place] % (Auto) 8.8 H 8.4 (2.6-8.5) % Eos % (Auto) 6.7 H 9.6 H (0-4.4) % Baso % (Auto) 1.1 0.9 (0.2-1.2) % Lymph # (Auto) 3.64 H 3.84 H (0.9-3.2) K/mm3 [place] # (Auto) 0.7 H 0.7 H (0.1-0.6) K/mm3 Eos # (Auto) 0.6 H 0.8 H (0-0.3) K/mm3 Baso # (Auto) 0.1 0.1 (0.0-0.1) K/mm3 Abs Immat Gran (auto) 0.02 0.02 (0.00-0.031) K/mm3 Absolute Neuts (auto) 3.2 3.0 (1.3-6.7) K/mm3 Absolute Nucleated RBC 0.000 0.020 H (0.0-0.012) K/mm3 Nucleated RBC % 0.0 0.2 (0.0-0.2) % Platelet Estimate (Adequate) % Immature Plt Fraction (0.9-11.2) % Hypochromasia Target Cells Schistocytes Absolute Retic (0.02-0.10) 10^6/uL Percent Retic (0.7-4.3) % Immature Retic Fraction (3.0-15.9) % Retic Hgb Content (28.2-36.6) pg PT 16.5 H 17.1 H (11.1-14.7) Seconds INR 1.3 1.4 APTT 27.9 (22.3-36.8) Seconds Sodium 140 138 (137-145) mmol/L Potassium 4.2 4.0 (3.4-5.0) mmol/L Chloride 108 H 106 (98-107) mmol/L Carbon Dioxide 25 23 (22-30) mmol/L Anion Gap 7 9 (4-12) mmol/L BUN 5 L 6 L (9-20) mg/dL Creatinine 0.70 0.80 (0.7-1.3) mg/dL Estim Creat Clear Calc 152 135 ml/min Estimated GFR > 60 > 60 (59 - ) Glucose 94 87 (65-110) mg/dL Calcium 8.0 L 8.4 (8.4-10.2) mg/dL Total Bilirubin 0.7 0.9 (0.2-1.3) mg/dL AST 29 30 (17-59) U/L ALT 14 13 (6-50) U/L Alkaline Phosphatase 62 65 (38-126) U/L Lactate Dehydrogenase (120-246) U/L Total Protein 7.0 7.0 (6.3-8.2) g/dL Albumin 3.6 3.7 (3.5-5.1) g/dL Influenza A (RT-PCR) (Negative) Influenza B (RT-PCR) (Negative) RSV (RT-PCR) (Negative) SARS-CoV-2 RNA (RT-PCR) (Negative) Imaging Data Attestation: I personally reviewed and interpreted this imaging study as follows: My impression: Concern for bilateral infiltrates on my independent interpretation Radiologist's impression: Stat Rad CXR: Linear atelectasis left lower lobe. No acute pulmonary pathology. ECG Data EKG #1: Attestation: I personally reviewed and interpreted this ECG as follows: ECG completion date: 12/07/23 ECG completion time: 23:50 Prior ECG tracings: available for review (EKG from 10/17/2023 is reviewed which also showed flattening in lead 3 and AVF with T-wave inversions in V3 through V6) Interpretation: Normal sinus rhythm at a rate of 76. MI interval 180. QRS 101. QT/QTC 388/419. T-wave inversion in lead 3 and slight flattening versus inversion in AVF but upright in contiguous inferior lead 2. Also T-wave inversion in V3 with questionable inversion in biphasic nature in V4. Discharge Plan Discharge Clinical Impression: Sickle cell pain crisis, Normocytic anemia, Thrombocytosis Patient Disposition: Still a Patient Condition: Stable
--- NOTE | 2023-12-07 22:24 | ECG_ITS ---
Test Date: 2023-12-07 23:50:48 Measurements Intervals Delta Rate: 76 P: 18 [place]: 180 QRS: 7 QRSD: 101 T: -12 QT: 388 QTc: 438 Interpretive Statements SINUS RHYTHM NONSPECIFIC ST AND T-WAVE ABNORMALITY Compared to ECG 10/17/2023 14:00:50 NO SIGNIFICANT CHANGES Electronically Signed On 12-08-2023 10:41:13 CDT by Alana Matias M.D.
[2023-12-07] MEDS: HYDROmorphone HCL INJ (*CRX) 1 MG/ML SYR 2 MG IV PUSH ×2 (23:13→23:41)
[2023-12-07] MEDS: SODIUM CHLORIDE 0.9% IV 1,000 ML 999 ML IV CONT (23:13)
[2023-12-07 23:15] LABS: Basophils Absolute Auto 0.1 K/mm3 (0.0-0.1); Eosinophils Absolute Auto 0.6 K/mm3 (0-0.3); Eosinophils Percent Auto 5.5 % (0-4.4); Hematocrit 28.6 % (42.0-52.0); Hemoglobin 10.3 g/dL (14.0-18.0); Immature Granulocyte Absolute 0.03 K/mm3 (0.00-0.031); Immature Granulocyte Percent A 0.3 % (0-0.5); Immature Platelet Fraction Pct 3.8 % (0.9-11.2); Immature Reticulocyte Fraction 34.5 % (3.0-15.9); Lymphocytes Absolute Auto 4.14 K/mm3 (0.9-3.2); Lymphocytes Percent Auto 41.6 % (18.3-44.2); Mean Corpuscular Hemoglobin 31.6 pg (26-34); Mean Corpuscular Volume 87.7 fl (80-100); Mean Platelet Volume 10.1 fl (7.4-10.4); Monocytes Absolute Auto 0.9 K/mm3 (0.1-0.6); Monocytes Percent Auto 8.8 % (2.6-8.5); Neutrophils Absolute Auto 4.3 K/mm3 (1.3-6.7); Neutrophils Percent Auto 42.8 % (45.5-73.1); Nucleated Red Blood Cells Perc 0.2 % (0.0-0.2); Platelet Count Result 395 k/mm3 (150-375); Red Blood Count 3.26 M/mm3 (4.6-6.20); Red Cell Distribution Width 13.9 % (11.5-14.5); Reticulocyte Hemoglobin Conten 31.1 pg (28.2-36.6); Reticulocyte Percent 5.19 % (0.7-4.3); Reticulocytes Absolute 0.17 10^6/uL (0.02-0.10)
[2023-12-07 23:30] LABS: Alanine Aminotransferase 16 U/L (6-50); Albumin Level 4.2 g/dL (3.5-5.1); Alkaline Phosphatase 72 U/L (38-126); Anion Gap 10 mmol/L (4-12); Aspartate Amino Transferase 33 U/L (17-59); Bilirubin,Total 0.8 mg/dL (0.2-1.3); Blood Urea Nitrogen 5 mg/dL (9-20); Calcium 9.4 mg/dL (8.4-10.2); Carbon Dioxide 26 mmol/L (22-30); Chloride 104 mmol/L (98-107); Estimated CRCL calculation 152 ml/min; Estimated Glomerular Filt Rate > 60; Glucose 113 mg/dL (65-110); Lactate Dehydrogenase 197 U/L (120-246); Potassium 3.6 mmol/L (3.4-5.0); Sodium 140 mmol/L (137-145)
[2023-12-07 23:37] LABS: Platelet Estimate Adequate (Adequate)
[2023-12-07 23:38] VITALS: BP 124/87; PULSE 72; RESP 16; O2SAT 97
[2023-12-07 23:38] LABS: Hypochromasia 1+; Schistocytes Rare; Target Cells 2+
[2023-12-08 00:47] LABS: Influenza A QL RT-PCR Negative (Negative); Influenza B QL RT-PCR Negative (Negative); RSV RNA, RT-PCR Negative (Negative); SARS-CoV-2 RNA PCR Negative (Negative)
[2023-12-08 01:16] VITALS: BP 113/76; PULSE 73; RESP 15; O2SAT 96
[2023-12-08] MEDS: KETOROLAC 15 MG/ML VIAL (*BKC) IV PUSH (01:19)
[2023-12-08] MEDS: HYDROmorphone HCL INJ (*CRX) 1 MG/ML SYR 2 MG IV PUSH (01:36)
[2023-12-08 02:28] VITALS: BP 91/70; PULSE 73; RESP 12; O2SAT 96
[2023-12-08] MEDS: methADONE HCL (*CRX) 10 MG TABLET PO ×3 (02:37→21:01)
[2023-12-08] MEDS: fentaNYL CITRATE INJ (*CRX) 100 MCG/2 ML VIAL 50 MCG IV PUSH (03:59)
[2023-12-08] MEDS: SODIUM CHLORIDE 0.9% IV 1,000 ML 999 ML IV CONT (04:00)
[2023-12-08 04:06] VITALS: BP 114/76; PULSE 68; RESP 13; O2SAT 94
--- NOTE | 2023-12-08 05:24 | ADMGEN ---
This patient, Quan Downing, was admitted to [facility] Surg Room 322-01. Patient/family oriented to hospital policies and general routines including ID bracelet, bed and alarms, visiting hours, pain management, procedures, bathroom and other care routines, personal items, smoking policy, room service/diet, and visiting hours. Information on how to activate the Rapid Response Team has been discussed. Patient/Family are encouraged to report perceived risks to care and to ask questions if they do not understand what they are told or what they should do.
[2023-12-08 05:28] VITALS: BP 107/60; PULSE 71; RESP 18; TEMP 36.3; O2SAT 97
[2023-12-08] MEDS: LACTATED RINGERS 1,000 ML 125 ML IV CONT ×2 (05:43→16:09)
[2023-12-08] MEDS: HYDROmorphone HCL INJ (*CRX) 1 MG/ML SYR IV PUSH (05:46)
[2023-12-08] MEDS: HYDROmorphone HCL INJ (*CRX) 1 MG/ML SYR 3 MG IV PUSH ×6 (06:27→23:59)
--- NOTE | 2023-12-08 08:00 | P.HP_ITS ---
H&P: HPI History of Present Illness Date/Time: 12/08/23 08:00 Chief Complaint: sickle cell pain Narrative: 38-year-old male with history of hemoglobin SC disease, chronic pain syndrome related to sickle cell disease, and DVT and PE on chronic anticoagulation who presented to the emergency department for evaluation of pain. Patient reports daily pain due to his sickle cell and he take methadone 10 mg TID with oxycodone as needed. He noticed more severe pain to his mid back yesterday that then extended into his shoulders, decreasing his range of motion of his upper extremities. When he attempted to move his arms the pain would worsen in his ribs and armpit area. He took his oxycodone for the break through pain with no relief. This pain then continued to spread down to his legs. Patient states he has missed his warfarin and hydroxyurea medications for at least 1-2 days. He states this is common for him as he typically misses his hydroxyurea approximately 1x/week and the warfarin 1-2x/month. Patient follows with hematology, Dr. Marks. He last seen him during a prior sickle cell crisis in June. ED workup: Labs were significant for H/H 10.3/28.6 and PLT 395, appears to be around baseline. Absolute retic 0.17, % retic 5.19, and immature retic 34.5 Normal electrolytes. Negative viral panel. EKG reviewed and showing sinus rhythm. Chest XR: Chronic airspace opacities at the lung bases, consistent with sickle cell chronic lung disease. Started on IV fluids and received a dose of dilaudid 3 mg IV. Review of Systems Review of Systems: All systems reviewed & are unremarkable except as noted in HPI and below PMFSH Past Medical History Medical History Acute chest syndrome Chronic anticoagulation Due to history of DVT and pulmonary embolism. Chronic narcotic use On methadone with oxycodone for chronic pain related to sickle cell disease. 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 Deep venous thrombosis Noncompliance History of noncompliance with anticoagulation and hydroxyurea. Pulmonary embolism Sickle cell disease, type SC Surgical History Surgical History History of hand surgery Tendon surgery on right 5th finger. Family History Family History Grandparent Diabetes mellitus Acute myocardial infarction Sibling Asthma Sibling Asthma Mother Hypertension Sickle cell trait Son Sickle cell trait Daughter Sickle cell trait Grandparent No problems noted. Other Diabetes mellitus Father Sickle cell trait Social History Social History (Updated 12/08/23 @ 17:59 by Zahraa Birch PA-C) Social History: The patient lives in [place] with his family. He is on disability due to sickle cell disease and chronic pain. He is a lifelong nonsmoker and denies alcohol and illicit substance abuse. He uses marijuana to help with pain, states this happens 1-2x per year. He designates Jolly Zuniga (mother) or Keyla Luther (friend) as his surrogate decision makers and he wishes to be a full code. Smoking status: Never smoker Second hand tobacco smoke exposure: No Additional smoking assessment comments: Smokes marijuana when pain meds unavailable. Alcohol intake: never Substance use: never Substance use type: marijuana Other substance usage details: For back when he doesn't have any pain meds available. Last use: 12/28/22 Do You Feel Safe in your Home?: Yes Lack of Transportation: No Lack of Food: Never True Current Housing: I Have Housing Concerned About Future Housing: No Difficulty Paying Gas/Electric Bills: No Difficulty Paying for Meds: No Currently Unemployed: No Education: Associate Degree Difficulty w/ Childcare or Family Care: No Living arrangements: with family Occupation/Education: other Spiritual care concerns: No Agree to blood products: Yes Meds Home Medications and Allergies Home Medications Medication Instructions Recorded Confirmed Type folic acid 1 mg tablet 1 mg PO DAILY 02/16/19 12/08/23 History methadone 10 mg tablet 10 mg PO TID 08/22/20 12/08/23 History oxycodone-acetaminophen 10 mg-325 1 tablet PO BID PRN Pain, Moderate 08/22/20 12/08/23 History mg tablet hydroxyurea 500 mg capsule 500 mg PO QAM #30 caps 11/23/21 12/08/23 Rx ibuprofen 800 mg tablet 800 mg PO PRN 12/30/22 12/08/23 History warfarin 10 mg tablet 10 mg PO HS 06/22/23 12/08/23 History warfarin 5 mg tablet 5 mg PO DAILY #30 tabs 06/27/23 12/08/23 Rx Allergies Allergy/AdvReac Type Severity Reaction Status Date / Time Fish Containing Products Allergy Mild Itching Verified 12/07/23 16:04 Vital Signs Vital Signs - 24 hr 12/07/23 17:28 12/07/23 23:38 12/08/23 01:16 Temperature 97.8 F Pulse Rate 73 72 73 Respiratory Rate 14 16 15 Blood Pressure 116/74 124/87 113/76 Pulse Oximetry 100 97 96 Oxygen Delivery 12/08/23 02:28 12/08/23 04:06 12/08/23 05:28 Temperature 97.3 F L Pulse Rate 73 68 71 Respiratory Rate 12 13 18 Blood Pressure 91/70 L 114/76 107/60 Pulse Oximetry 96 94 97 Oxygen Delivery 12/08/23 05:54 Temperature Pulse Rate Respiratory Rate Blood Pressure Pulse Oximetry Oxygen Delivery Room Air Exam Narrative: AF HR 62 RR 19 SpO2 97 BP 112/70 General: male in no acute respiratory distress who is nontoxic appearing, lying semi recumbent in bed. HEENT: Normocephalic. Atraumatic. Pupils equal round reactive to light. Extraocular movement intact. Sclera clear and anicteric. No facial asymmetry. Neck: Neck was supple. No dominant adenopathy, thyromegaly or masses. Chest: Lungs are clear to auscultation bilaterally. No wheezes or crackles. CV: Heart was regular rate and rhythm. S1/S2. No murmurs, gallops, or rubs. Abd: Abdomen was soft. Nontender. Nondistended. Positive bowel sounds. No organomegaly or masses. Ext: No clubbing, cyanosis, or edema. 2+ DP pulses bilaterally. Slight tenderness to palpation in all extremities. Neuro: Patient is alert and oriented x4. Strength is symmetrical in both upper and lower extremities. Cranial nerves 2-12 are intact. Speech is clear. Psych: Normal mood and affect. Patient is pleasant and cooperative. Skin: Warm and dry. No rashes noted. H&P: Results Labs Labs: Short CBC 12/07/23 Range/Units 22:59 WBC 10.0 (4.5-10.0) K/mm3 Hgb 10.3 L (14.0-18.0) g/dL Hct 28.6 L (42.0-52.0) % Plt Count 395 H (150-375) k/mm3 BMP 12/07/23 22:58 Sodium 140 Potassium 3.6 Chloride 104 Carbon Dioxide 26 BUN 5 L Creatinine 0.70 Glucose 113 H Calcium 9.4 Liver Function 12/07/23 Range/Units 22:58 Total Bilirubin 0.8 (0.2-1.3) mg/dL AST 33 (17-59) U/L ALT 16 (6-50) U/L Alkaline Phosphatase 72 (38-126) U/L Albumin 4.2 (3.5-5.1) g/dL Impressions Chest X-Ray 12/08/23 06:19 IMPRESSION: 1. Chronic airspace opacities at the lung bases, consistent with sickle cell chronic lung disease. Assessment and Plan Assessment and plan (1) Sickle cell pain crisis: Code(s): D57.00 - Hb-SS disease with crisis, unspecified Status: Acute Assessment and Plan: Patient has hx of sickle cell and reported to the hospital for a pain crisis. Likely secondary to patient being noncompliant with medications. He reports pain started on 12/06 in his back then progressed to his shoulder and down his legs. He has multiple hospitalizations for the same compalint. He denies chest pain, shortness of breath and vitals remain stable. - EKG reviewed and showing sinus rhythm - Chest XR: Chronic airspace opacities at the lung bases, consistent with sickle cell chronic lung disease. - Sickle cell lung disease appears to be a chronic finding when reviewing previous imaging - H/H 10.3/28.6 on am labs. Appears to be around baseline. - Absolute retic 0.17, % retic 5.19, and immature retic 34.5 - Continue pain control with methadone 10 mg TID, Percocet 10 mg BID, and dilaudid IVP q 3hr PRN - Patient remains on LR 125 ml/hr - Continue warfarin , folic acid and hydroxyurea - Started on Lovenox 40 mg subcu daily due to subtherapeutic INR on warfarin (2) Chronic anticoagulation: Code(s): Z79.01 - FPC (current) use of anticoagulants Status: Chronic Assessment and Plan: Hx of DVT and PE, currently on warfarin but is known to be noncompliant in the past. States he has missed his medication for 1-2 days. - PT/INR 16.5/1.3 on am labs - INR subtherapeutic, will continue patients home warfarin and start lovenox 40 mg daily for DVT ppx until INR meets therapeutic level Quality VTE Prophylaxis VTE prophylaxis: pharmacologic ordered Hospitalist MIPS Advance Care Plan I have confirmed that the patient's Advanced Care Plan is present, code status is documented, or surrogate decision maker is listed in patient medical record.: Yes Medication Reconciliation I have utilized all available resources to obtain, update and review the patients current medications (includes all prescriptions, OTC, herbals, cannabis, and nutritional supplements).: Yes
[2023-12-08 09:00] LABS: Basophils Absolute Auto 0.1 K/mm3 (0.0-0.1); Basophils Percent Auto 1.1 % (0.2-1.2); Eosinophils Absolute Auto 0.6 K/mm3 (0-0.3); Eosinophils Percent Auto 6.7 % (0-4.4); Hemoglobin 9.4 g/dL (14.0-18.0); Immature Granulocyte Absolute 0.02 K/mm3 (0.00-0.031); Immature Granulocyte Percent A 0.2 % (0-0.5); Lymphocytes Absolute Auto 3.64 K/mm3 (0.9-3.2); Lymphocytes Percent Auto 44.4 % (18.3-44.2); Mean Corpuscular HGB Conc 34.8 g/dl (32-36); Mean Corpuscular Volume 89.1 fl (80-100); Mean Platelet Volume 10.2 fl (7.4-10.4); Monocytes Absolute Auto 0.7 K/mm3 (0.1-0.6); Monocytes Percent Auto 8.8 % (2.6-8.5); Neutrophils Absolute Auto 3.2 K/mm3 (1.3-6.7); Neutrophils Percent Auto 38.8 % (45.5-73.1); Platelet Count Result 357 k/mm3 (150-375); Red Blood Count 3.03 M/mm3 (4.6-6.20); Red Cell Distribution Width 13.6 % (11.5-14.5); White Blood Count 8.2 K/mm3 (4.5-10.0)
[2023-12-08 09:01] LABS: Alanine Aminotransferase 14 U/L (6-50); Albumin Level 3.6 g/dL (3.5-5.1); Alkaline Phosphatase 62 U/L (38-126); Anion Gap 7 mmol/L (4-12); Aspartate Amino Transferase 29 U/L (17-59); Bilirubin,Total 0.7 mg/dL (0.2-1.3); Blood Urea Nitrogen 5 mg/dL (9-20); Carbon Dioxide 25 mmol/L (22-30); Chloride 108 mmol/L (98-107); Estimated CRCL calculation 152 ml/min; Estimated Glomerular Filt Rate > 60; Glucose 94 mg/dL (65-110); Potassium 4.2 mmol/L (3.4-5.0); Sodium 140 mmol/L (137-145)
[2023-12-08 09:06] LABS: INR 1.3; Prothrombin Time 16.5 Seconds (11.1-14.7)
[2023-12-08 09:07] LABS: Partial Thromboplastin Time 27.9 Seconds (22.3-36.8)
[2023-12-08] MEDS: HYDROXYUREA (*CHEMO) 500 MG CAPSULE PO (09:34)
[2023-12-08] MEDS: FOLIC ACID 1 MG TABLET PO (09:34)
[2023-12-08] MEDS: diphenhydrAMINE HCl INJ 50 MG/ML VIAL IV PUSH ×2 (12:57→23:58)
[2023-12-08 14:00] VITALS: BP 112/70; PULSE 62; RESP 19; TEMP 36.1; O2SAT 97
--- NOTE | 2023-12-08 17:35 | PC.NURSE ---
provider order to place pt on continuous pulse ox due to pain medication regimen; no telemetry available; pt placed on capnography to monitor.
[2023-12-08] MEDS: WARFARIN (*PBKC) 5 MG TABLET PO (17:37)
[2023-12-08] MEDS: WARFARIN (*PBKC) 10 MG TABLET PO (17:38)
[2023-12-08] MEDS: oxyCODONE/ACETAMINOPHEN (*CRX) 10-325 MG TABLET 1 TAB PO (18:38)
[2023-12-08 21:27] VITALS: BP 106/59; PULSE 81; RESP 14; TEMP 36.9; O2SAT 94
[2023-12-09] MEDS: HYDROmorphone HCL INJ (*CRX) 1 MG/ML SYR 3 MG IV PUSH ×4 (02:46→12:12)
[2023-12-09 06:00] VITALS: BP 113/72; PULSE 83; RESP 14; TEMP 36.9; O2SAT 99
[2023-12-09] MEDS: diphenhydrAMINE HCl INJ 50 MG/ML VIAL IV PUSH ×2 (06:15→22:14)
--- NOTE | 2023-12-09 07:18 | PM.IMPN ---
Progress Note: A&P Assessment and Plan (1) Sickle cell pain crisis: Code(s): D57.00 - Hb-SS disease with crisis, unspecified Status: Acute Assessment and Plan: Patient has hx of sickle cell and reported to the hospital for a pain crisis. Likely secondary to patient being noncompliant with medications. He reports pain started on 12/06 in his back then progressed to his shoulder and down his legs. He has multiple hospitalizations for the same compalint. He denies chest pain, shortness of breath and vitals remain stable. - EKG reviewed and showing sinus rhythm - Chest XR: Chronic airspace opacities at the lung bases, consistent with sickle cell chronic lung disease. - Sickle cell lung disease appears to be a chronic finding when reviewing previous imaging - H/H 9.8/27.6 on am labs. Appears to be around baseline. - Absolute retic 0.17, % retic 5.19, and immature retic 34.5 on admission. - Continue pain control with methadone 10 mg TID, Percocet 10 mg BID, and Dilaudid IVP being weaned from 3 to 2 mg q 3hr PRN - Patient remains on LR 125 ml/hr - Continue warfarin , folic acid and hydroxyurea - Started on Lovenox 40 mg subcu daily due to subtherapeutic INR on warfarin (2) Chronic anticoagulation: Code(s): Z79.01 - residential (current) use of anticoagulants Status: Chronic Assessment and Plan: Hx of DVT and PE, currently on warfarin but is known to be noncompliant in the past. States he has missed his medication for 1-2 days. 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 Exam nonconcerning for acute chest syndrome. EKG reviewed and showing sinus rhythm. Chest XR: Chronic airspace opacities at the lung bases, consistent with sickle cell chronic lung disease. Sickle cell lung disease appears to be a chronic finding when reviewing previous imaging. He remains on his home methadone and oxy with dilaudid 2 q3 for breakthrough. Hes on continuous oximetry due to high level of pain meds. INR subtherapeutic, will continue patients home warfarin and start lovenox 40 mg daily for DVT ppx until INR meets therapeutic level. 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 Patient is pleasant lying comfortably in bed watching a movie. He states his pain has much improved and is now only noticed in his upper thighs. He continues to use the dilaudid 3 mg q 3 every 3 hours. Will start to wean this down to 2 mg q3 and see how patient tolerates. Discussed with patient that as his pain improves we will need to start weaning him off the pain medications to get him back on his baseline pain regimen. He states understanding. Patients INR remains subtherapeutic on am labs. He remains on lovenox at this time. Patient denies chest pain, shortness of breath, nausea/vomiting and changes in bowel/bladder. Review of Systems Review of Systems: All systems reviewed & are unremarkable except as noted in HPI and below Exam Narrative: AF HR 79 RR 16 SpO2 98 BP 112/70 General: male in no acute respiratory distress who is nontoxic appearing, lying semi recumbent in bed. Chest: Lungs are clear to auscultation bilaterally. No wheezes or crackles. CV: Heart was regular rate and rhythm. S1/S2. No murmurs, gallops, or rubs. Abd: Abdomen was soft. Nontender. Nondistended. Positive bowel sounds. No organomegaly or masses. Ext: No clubbing, cyanosis, or edema. 2+ DP pulses bilaterally. Nontender to palpation in all extremities. Neuro: Patient is alert and oriented x4. Strength is symmetrical in both upper and lower extremities. Cranial nerves 2-12 are intact. Speech is clear. Psych: Normal mood and affect. Patient is pleasant and cooperative. Skin: Warm and dry. No rashes noted. Objective Data Vital Signs Vital Signs: Vital Signs - 24 hr 12/08/23 14:00 12/08/23 08:00 12/08/23 21:27 Temperature 97.0 F L 98.5 F Pulse Rate 62 81 Respiratory Rate 19 14 Blood Pressure 112/70 106/59 L Pulse Oximetry 97 94 Oxygen Delivery Room Air 12/08/23 20:00 12/09/23 06:00 Temperature 98.4 F Pulse Rate 83 Respiratory Rate 14 Blood Pressure 113/72 Pulse Oximetry 99 Oxygen Delivery Room Air Intake/Output Intake/Output: Intake & Output 12/06/23 12/07/23 12/08/23 12/09/23 23:59 23:59 23:59 23:59 Intake Total 2832 600 Output Total 900 900 Balance 1932 -300 Meds/Results Medications: Active Medications Generic Name Dose Route Start Last Admin Trade Name Freq PRN Reason Stop Dose Admin Acetaminophen 650 mg 12/08/23 03:34 Acetaminophen 325 Mg Tablet PO Q4H PRN Mild Pain (1-3) or Fever Diphenhydramine HCl 50 mg 12/08/23 05:56 12/09/23 06:15 Diphenhydramine Hcl Inj 50 Mg/Ml Vial IV PUSH 50 mg Q6H PRN Administration Itching Enoxaparin Sodium 40 mg 12/09/23 09:00 Enoxaparin 40 Mg/0.4 Ml Syringe SUB-Q DAILY CHRISTOPHER Folic Acid 1 mg 12/08/23 09:00 12/08/23 09:34 Folic Acid 1 Mg Tablet PO 1 mg DAILY CHRISTOPHER Administration Hydromorphone HCl 3 mg 12/08/23 05:57 12/09/23 06:14 Hydromorphone Hcl Inj (*Crx) 1 Mg/Ml Syr IV PUSH 3 mg Q3H PRN Administration Pain Rated 7-10 Hydroxyurea 500 mg 12/08/23 09:00 12/08/23 09:34 Hydroxyurea (*Chemo) 500 Mg Capsule PO 500 mg QAM CHRISTOPHER Administration Lactated Ringer's 1,000 mls @ 125 mls/hr 12/08/23 03:35 12/08/23 16:09 Lr - Lactated Ringers Iv IV CONT 125 mls/hr .Q8H CHRISTOPHER Administration Methadone HCl 10 mg 12/08/23 17:00 12/08/23 21:01 Methadone Hcl (*Crx) 10 Mg Tablet PO 10 mg TID@0900,1700,2100 CHRISTOPHER Administration Oxycodone/Acetaminophen 1 tab 12/08/23 08:02 12/08/23 18:38 Oxycodone/Acetaminophen (*Crx) 10-325 Mg Tablet PO 1 tab BID PRN Administration Pain, Moderate Warfarin Sodium 10 mg 12/08/23 18:00 12/08/23 17:38 Warfarin (*Pbkc) 10 Mg Tablet PO 10 mg EVENING CHRISTOPHER Administration Warfarin Sodium 5 mg 12/08/23 18:00 12/08/23 17:37 Warfarin (*Pbkc) 5 Mg Tablet PO 5 mg EVENING CHRISTOPHER Administration Radiology Results: ITS Impressions Chest X-Ray 12/08/23 06:19 IMPRESSION: 1. Chronic airspace opacities at the lung bases, consistent with sickle cell chronic lung disease. Labs Labs: Laboratory Results - last 24 hr 12/08/23 08:46 WBC 8.2 RBC 3.03 L Hgb 9.4 L Hct 27.0 L MCV 89.1 MCH 31.0 MCHC 34.8 RDW 13.6 Plt Count 357 MPV 10.2 Immature Gran % (Auto) 0.2 Neut % (Auto) 38.8 L Lymph % (Auto) 44.4 H [place] % (Auto) 8.8 H Eos % (Auto) 6.7 H Baso % (Auto) 1.1 Lymph # (Auto) 3.64 H [place] # (Auto) 0.7 H Eos # (Auto) 0.6 H Baso # (Auto) 0.1 Abs Immat Gran (auto) 0.02 Absolute Neuts (auto) 3.2 Absolute Nucleated RBC 0.000 Nucleated RBC % 0.0 PT 16.5 H INR 1.3 APTT 27.9 Sodium 140 Potassium 4.2 Chloride 108 H Carbon Dioxide 25 Anion Gap 7 BUN 5 L Creatinine 0.70 Estim Creat Clear Calc 152 Estimated GFR > 60 Glucose 94 Calcium 8.0 L Total Bilirubin 0.7 AST 29 ALT 14 Alkaline Phosphatase 62 Total Protein 7.0 Albumin 3.6 Quality VTE Prophylaxis VTE prophylaxis: pharmacologic ordered Hospitalist [facility] Advance Care Plan I have confirmed that the patient's Advanced Care Plan is present, code status is documented, or surrogate decision maker is listed in patient medical record.: Yes Medication Reconciliation I have utilized all available resources to obtain, update and review the patients current medications (includes all prescriptions, OTC, herbals, cannabis, and nutritional supplements).: Yes
[2023-12-09 07:49] LABS: Basophils Absolute Auto 0.1 K/mm3 (0.0-0.1); Basophils Percent Auto 0.9 % (0.2-1.2); Eosinophils Absolute Auto 0.8 K/mm3 (0-0.3); Eosinophils Percent Auto 9.6 % (0-4.4); Hematocrit 27.6 % (42.0-52.0); Hemoglobin 9.8 g/dL (14.0-18.0); Immature Granulocyte Absolute 0.02 K/mm3 (0.00-0.031); Immature Granulocyte Percent A 0.2 % (0-0.5); Lymphocytes Absolute Auto 3.84 K/mm3 (0.9-3.2); Lymphocytes Percent Auto 45.2 % (18.3-44.2); Mean Corpuscular HGB Conc 35.5 g/dl (32-36); Mean Corpuscular Volume 90.2 fl (80-100); Mean Platelet Volume 10.2 fl (7.4-10.4); Monocytes Absolute Auto 0.7 K/mm3 (0.1-0.6); Monocytes Percent Auto 8.4 % (2.6-8.5); Neutrophils Percent Auto 35.7 % (45.5-73.1); Nucleated Red Blood Cells Perc 0.2 % (0.0-0.2); Platelet Count Result 363 k/mm3 (150-375); Red Blood Count 3.06 M/mm3 (4.6-6.20); Red Cell Distribution Width 13.8 % (11.5-14.5); White Blood Count 8.5 K/mm3 (4.5-10.0)
[2023-12-09 07:50] LABS: INR 1.4; Prothrombin Time 17.1 Seconds (11.1-14.7)
[2023-12-09 08:17] LABS: Alanine Aminotransferase 13 U/L (6-50); Albumin Level 3.7 g/dL (3.5-5.1); Alkaline Phosphatase 65 U/L (38-126); Anion Gap 9 mmol/L (4-12); Aspartate Amino Transferase 30 U/L (17-59); Bilirubin,Total 0.9 mg/dL (0.2-1.3); Blood Urea Nitrogen 6 mg/dL (9-20); Calcium 8.4 mg/dL (8.4-10.2); Carbon Dioxide 23 mmol/L (22-30); Chloride 106 mmol/L (98-107); Estimated CRCL calculation 135 ml/min; Estimated Glomerular Filt Rate > 60; Glucose 87 mg/dL (65-110); Sodium 138 mmol/L (137-145)
[2023-12-09] MEDS: HYDROXYUREA (*CHEMO) 500 MG CAPSULE PO (08:20)
[2023-12-09] MEDS: LACTATED RINGERS 1,000 ML 125 ML IV CONT ×2 (08:20→17:25)
[2023-12-09] MEDS: ENOXAPARIN 40 MG/0.4 ML SYRINGE SUB-Q (08:20)
[2023-12-09] MEDS: methADONE HCL (*CRX) 10 MG TABLET PO ×3 (08:20→20:58)
[2023-12-09] MEDS: FOLIC ACID 1 MG TABLET PO (08:20)
[2023-12-09 10:19] VITALS: PULSE 74; RESP 14; O2SAT 95
[2023-12-09 14:00] VITALS: BP 112/70; PULSE 79; RESP 16; TEMP 36.6; O2SAT 98
[2023-12-09] MEDS: HYDROmorphone HCL INJ (*CRX) 1 MG/ML SYR 2 MG IV PUSH ×3 (15:28→22:09)
[2023-12-09] MEDS: WARFARIN (*PBKC) 10 MG TABLET PO (17:23)
[2023-12-09] MEDS: WARFARIN (*PBKC) 5 MG TABLET PO (17:23)
[2023-12-09 22:00] VITALS: BP 117/62; PULSE 79; RESP 20; TEMP 36.6; O2SAT 98
[2023-12-10] MEDS: HYDROmorphone HCL INJ (*CRX) 1 MG/ML SYR 2 MG IV PUSH ×8 (01:25→22:55)
[2023-12-10] MEDS: LACTATED RINGERS 1,000 ML 125 ML IV CONT ×3 (01:25→16:38)
[2023-12-10 06:00] VITALS: BP 121/66; PULSE 76; RESP 18; TEMP 36.1; O2SAT 96
--- NOTE | 2023-12-10 07:59 | PM.IMPN ---
Progress Note: A&P Assessment and Plan (1) Sickle cell pain crisis: Code(s): D57.00 - Hb-SS disease with crisis, unspecified Status: Acute Assessment and Plan: Patient has hx of sickle cell and reported to the hospital for a pain crisis. Likely secondary to patient being noncompliant with medications. He reports pain started on 12/06 in his back then progressed to his shoulder and down his legs. He has multiple hospitalizations for the same compalint. He denies chest pain, shortness of breath and vitals remain stable. - EKG reviewed and showing sinus rhythm - Chest XR: Chronic airspace opacities at the lung bases, consistent with sickle cell chronic lung disease. - Sickle cell lung disease appears to be a chronic finding when reviewing previous imaging - H/H 10.6/28.3 on am labs. Appears to be around baseline. - Absolute retic 0.17, % retic 5.19, and immature retic 34.5 on admission. 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 States he has missed his medication for 1-2 days. 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 Exam nonconcerning for acute chest syndrome. EKG reviewed and showing sinus rhythm. Chest XR: Chronic airspace opacities at the lung bases, consistent with sickle cell chronic lung disease. Sickle cell lung disease appears to be a chronic finding when reviewing previous imaging. He remains on his home methadone and oxy with dilaudid 2 q3 for breakthrough. Hes on continuous oximetry due to high level of pain meds. INR therapeutic, will continue patients home warfarin and DC lovenox. 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 Patient is pleasant lying in bed. He continues to endorse mid back pain that worsens with ambulation. He is still requiring the 2 dilaudid at this time for his pain. Discussed with patient that as we get closer to discharge we will try to further wean this medication back to his normal pain regimen of only oxy for breakthrough. He states understanding. Patient denies chest pain, shortness of breath, nausea/vomiting and changes in bowel/bladder. Review of Systems Review of Systems: All systems reviewed & are unremarkable except as noted in HPI and below Exam Narrative: AF HR 78 RR 18 SpO2 95 BP 121/70 General: male in no acute respiratory distress who is nontoxic appearing, lying semi recumbent in bed. Chest: Lungs are clear to auscultation bilaterally. No wheezes or crackles. CV: Heart was regular rate and rhythm. S1/S2. No murmurs, gallops, or rubs. Abd: Abdomen was soft. Nontender. Nondistended. Positive bowel sounds. No organomegaly or masses. Neuro: Strength is symmetrical in both upper and lower extremities. Cranial nerves 2-12 are intact. Speech is clear. Objective Data Vital Signs Vital Signs: Vital Signs - 24 hr 12/09/23 10:19 12/09/23 08:08 12/09/23 14:00 Temperature 97.9 F Pulse Rate 74 79 Respiratory Rate 14 16 Blood Pressure 112/70 Pulse Oximetry 95 98 Oxygen Delivery Room Air Room Air Fraction of Inspired Oxygen 21 12/09/23 22:00 12/10/23 06:00 Temperature 97.8 F 97.0 F L Pulse Rate 79 76 Respiratory Rate 20 18 Blood Pressure 117/62 121/66 Pulse Oximetry 98 96 Oxygen Delivery Fraction of Inspired Oxygen Intake/Output Intake/Output: Intake & Output 12/07/23 12/08/23 12/09/23 12/10/23 23:59 23:59 23:59 23:59 Intake Total 2832 3506 1800 Output Total 900 2335 1200 Balance 1932 1171 600 Meds/Results Medications: Active Medications Generic Name Dose Route Start Last Admin Trade Name Freq PRN Reason Stop Dose Admin Acetaminophen 650 mg 12/08/23 03:34 Acetaminophen 325 Mg Tablet PO Q4H PRN Mild Pain (1-3) or Fever Diphenhydramine HCl 50 mg 12/08/23 05:56 12/09/23 22:14 Diphenhydramine Hcl Inj 50 Mg/Ml Vial IV PUSH 50 mg Q6H PRN Administration Itching Enoxaparin Sodium 40 mg 12/09/23 09:00 12/09/23 08:20 Enoxaparin 40 Mg/0.4 Ml Syringe SUB-Q 40 mg DAILY CHRISTOPHER Administration Folic Acid 1 mg 12/08/23 09:00 12/09/23 08:20 Folic Acid 1 Mg Tablet PO 1 mg DAILY CHRISTOPHER Administration Hydromorphone HCl 2 mg 12/09/23 14:45 12/10/23 07:22 Hydromorphone Hcl Inj (*Crx) 1 Mg/Ml Syr IV PUSH 2 mg Q3H PRN Administration Pain Rated 7-10 Hydroxyurea 500 mg 12/08/23 09:00 12/09/23 08:20 Hydroxyurea (*Chemo) 500 Mg Capsule PO 500 mg QAM CHRISTOPHER Administration Lactated Ringer's 1,000 mls @ 125 mls/hr 12/08/23 03:35 12/10/23 01:25 Lr - Lactated Ringers Iv IV CONT 125 mls/hr .Q8H CHRISTOPHER Administration Methadone HCl 10 mg 12/08/23 17:00 12/09/23 20:58 Methadone Hcl (*Crx) 10 Mg Tablet PO 10 mg TID@0900,1700,2100 CHRISTOPHER Administration Oxycodone/Acetaminophen 1 tab 12/08/23 08:02 12/08/23 18:38 Oxycodone/Acetaminophen (*Crx) 10-325 Mg Tablet PO 1 tab BID PRN Administration Pain, Moderate Warfarin Sodium 10 mg 12/08/23 18:00 12/09/23 17:23 Warfarin (*Pbkc) 10 Mg Tablet PO 10 mg EVENING CHRISTOPHER Administration Warfarin Sodium 5 mg 12/08/23 18:00 12/09/23 17:23 Warfarin (*Pbkc) 5 Mg Tablet PO 5 mg EVENING CHRISTOPHER Administration Radiology Results: ITS Impressions Chest X-Ray 12/08/23 06:19 IMPRESSION: 1. Chronic airspace opacities at the lung bases, consistent with sickle cell chronic lung disease. Labs Labs: Laboratory Results - last 24 hr 12/09/23 07:20 WBC 8.5 RBC 3.06 L Hgb 9.8 L Hct 27.6 L MCV 90.2 MCH 32.0 MCHC 35.5 RDW 13.8 Plt Count 363 MPV 10.2 Immature Gran % (Auto) 0.2 Neut % (Auto) 35.7 L Lymph % (Auto) 45.2 H [place] % (Auto) 8.4 Eos % (Auto) 9.6 H Baso % (Auto) 0.9 Lymph # (Auto) 3.84 H [place] # (Auto) 0.7 H Eos # (Auto) 0.8 H Baso # (Auto) 0.1 Abs Immat Gran (auto) 0.02 Absolute Neuts (auto) 3.0 Absolute Nucleated RBC 0.020 H Nucleated RBC % 0.2 Sodium 138 Potassium 4.0 Chloride 106 Carbon Dioxide 23 Anion Gap 9 BUN 6 L Creatinine 0.80 Estim Creat Clear Calc 135 Estimated GFR > 60 Glucose 87 Calcium 8.4 Total Bilirubin 0.9 AST 30 ALT 13 Alkaline Phosphatase 65 Total Protein 7.0 Albumin 3.7 Quality VTE Prophylaxis VTE prophylaxis: pharmacologic ordered Hospitalist [facility] Advance Care Plan I have confirmed that the patient's Advanced Care Plan is present, code status is documented, or surrogate decision maker is listed in patient medical record.: Yes Medication Reconciliation I have utilized all available resources to obtain, update and review the patients current medications (includes all prescriptions, OTC, herbals, cannabis, and nutritional supplements).: Yes
[2023-12-10 08:18] VITALS: PULSE 88; RESP 14; O2SAT 94
[2023-12-10 08:44] LABS: Basophils Absolute Auto 0.1 K/mm3 (0.0-0.1); Basophils Percent Auto 1.2 % (0.2-1.2); Eosinophils Absolute Auto 1.1 K/mm3 (0-0.3); Eosinophils Percent Auto 12.5 % (0-4.4); Hematocrit 28.3 % (42.0-52.0); Hemoglobin 10.6 g/dL (14.0-18.0); Immature Granulocyte Absolute 0.01 K/mm3 (0.00-0.031); Immature Granulocyte Percent A 0.1 % (0-0.5); Lymphocytes Absolute Auto 4.16 K/mm3 (0.9-3.2); Lymphocytes Percent Auto 46.5 % (18.3-44.2); Mean Corpuscular HGB Conc 37.5 g/dl (32-36); Mean Corpuscular Hemoglobin 33.3 pg (26-34); Mean Platelet Volume 10.7 fl (7.4-10.4); Monocytes Absolute Auto 0.7 K/mm3 (0.1-0.6); Monocytes Percent Auto 7.4 % (2.6-8.5); Neutrophils Absolute Auto 2.9 K/mm3 (1.3-6.7); Neutrophils Percent Auto 32.3 % (45.5-73.1); Nucleated Red Blood Cells Perc 0.2 % (0.0-0.2); Platelet Count Result 380 k/mm3 (150-375); Red Blood Count 3.18 M/mm3 (4.6-6.20); Red Cell Distribution Width 13.5 % (11.5-14.5)
[2023-12-10] MEDS: HYDROXYUREA (*CHEMO) 500 MG CAPSULE PO (08:46)
[2023-12-10] MEDS: ENOXAPARIN 40 MG/0.4 ML SYRINGE SUB-Q (08:47)
[2023-12-10] MEDS: FOLIC ACID 1 MG TABLET PO (08:47)
[2023-12-10] MEDS: methADONE HCL (*CRX) 10 MG TABLET PO ×3 (08:47→20:57)
[2023-12-10 08:48] LABS: INR 1.8; Prothrombin Time 21.3 Seconds (11.1-14.7)
[2023-12-10 08:58] LABS: Alanine Aminotransferase 13 U/L (6-50); Albumin Level 3.7 g/dL (3.5-5.1); Alkaline Phosphatase 73 U/L (38-126); Anion Gap 11 mmol/L (4-12); Aspartate Amino Transferase 31 U/L (17-59); Bilirubin,Total 0.8 mg/dL (0.2-1.3); Blood Urea Nitrogen 5 mg/dL (9-20); Calcium 8.1 mg/dL (8.4-10.2); Carbon Dioxide 23 mmol/L (22-30); Chloride 104 mmol/L (98-107); Estimated CRCL calculation 150 ml/min; Estimated Glomerular Filt Rate > 60; Glucose 90 mg/dL (65-110); Potassium 3.8 mmol/L (3.4-5.0); Sodium 138 mmol/L (137-145)
[2023-12-10 09:49] LABS: Platelet Estimate Slightly Increased (Adequate)
[2023-12-10 09:50] LABS: Hypochromasia 1+
[2023-12-10 09:51] LABS: Schistocytes Rare; Target Cells 2+
[2023-12-10 09:52] LABS: Anisocytosis 1+
[2023-12-10] MEDS: diphenhydrAMINE HCl INJ 50 MG/ML VIAL IV PUSH ×3 (10:30→22:58)
[2023-12-10 14:00] VITALS: BP 121/70; PULSE 78; RESP 18; TEMP 36.8; O2SAT 95
[2023-12-10] MEDS: WARFARIN (*PBKC) 5 MG TABLET PO (16:30)
[2023-12-10] MEDS: WARFARIN (*PBKC) 10 MG TABLET PO (16:31)
[2023-12-10 21:30] VITALS: BP 130/81; PULSE 78; RESP 16; TEMP 36.2; O2SAT 93
[2023-12-11] MEDS: HYDROmorphone HCL INJ (*CRX) 1 MG/ML SYR 2 MG IV PUSH ×8 (02:15→23:44)
[2023-12-11] MEDS: LACTATED RINGERS 1,000 ML 125 ML IV CONT ×3 (05:26→23:43)
[2023-12-11 05:45] VITALS: BP 115/79; PULSE 72; RESP 13; TEMP 36.1; O2SAT 95
[2023-12-11 06:45] LABS: Basophils Absolute Auto 0.1 K/mm3 (0.0-0.1); Basophils Percent Auto 1.2 % (0.2-1.2); Eosinophils Absolute Auto 1.1 K/mm3 (0-0.3); Eosinophils Percent Auto 11.7 % (0-4.4); Hematocrit 28.5 % (42.0-52.0); Hemoglobin 10.3 g/dL (14.0-18.0); Immature Granulocyte Absolute 0.01 K/mm3 (0.00-0.031); Immature Granulocyte Percent A 0.1 % (0-0.5); Lymphocytes Absolute Auto 3.89 K/mm3 (0.9-3.2); Lymphocytes Percent Auto 42.3 % (18.3-44.2); Mean Corpuscular HGB Conc 36.1 g/dl (32-36); Mean Corpuscular Hemoglobin 32.4 pg (26-34); Mean Corpuscular Volume 89.6 fl (80-100); Mean Platelet Volume 10.4 fl (7.4-10.4); Monocytes Absolute Auto 0.7 K/mm3 (0.1-0.6); Neutrophils Absolute Auto 3.4 K/mm3 (1.3-6.7); Neutrophils Percent Auto 36.7 % (45.5-73.1); Nucleated Red Blood Cells Perc 0.3 % (0.0-0.2); Platelet Count Result 351 k/mm3 (150-375); Red Blood Count 3.18 M/mm3 (4.6-6.20); Red Cell Distribution Width 13.6 % (11.5-14.5); White Blood Count 9.2 K/mm3 (4.5-10.0)
[2023-12-11 07:00] LABS: Alanine Aminotransferase 13 U/L (6-50); Albumin Level 3.7 g/dL (3.5-5.1); Alkaline Phosphatase 73 U/L (38-126); Anion Gap 10 mmol/L (4-12); Aspartate Amino Transferase 30 U/L (17-59); Bilirubin,Total 0.8 mg/dL (0.2-1.3); Blood Urea Nitrogen 5 mg/dL (9-20); Calcium 8.2 mg/dL (8.4-10.2); Carbon Dioxide 26 mmol/L (22-30); Chloride 102 mmol/L (98-107); Estimated CRCL calculation 133 ml/min; Estimated Glomerular Filt Rate > 60; Glucose 104 mg/dL (65-110); Potassium 3.9 mmol/L (3.4-5.0); Sodium 138 mmol/L (137-145)
[2023-12-11 07:10] LABS: INR 2.3; Prothrombin Time 25.6 Seconds (11.1-14.7)
[2023-12-11] MEDS: HYDROXYUREA (*CHEMO) 500 MG CAPSULE PO (08:16)
[2023-12-11] MEDS: diphenhydrAMINE HCl INJ 50 MG/ML VIAL IV PUSH ×2 (08:16→17:15)
[2023-12-11] MEDS: FOLIC ACID 1 MG TABLET PO (08:16)
[2023-12-11] MEDS: methADONE HCL (*CRX) 10 MG TABLET PO ×3 (08:16→20:50)
--- NOTE | 2023-12-11 09:41 | P.PNIM_ITS ---
Progress Note: A&P Assessment and Plan (1) Sickle cell pain crisis: Code(s): D57.00 - Hb-SS disease with crisis, unspecified Status: Acute Assessment and Plan: Patient has hx of sickle cell and reported to the hospital for a pain crisis. Likely secondary to patient being noncompliant with medications. He reports pain started on 12/06 in his back then progressed to his shoulder and down his legs. He has multiple hospitalizations for the same compalint. He denies chest pain, shortness of breath and vitals remain stable. - EKG reviewed and showing sinus rhythm - Chest XR: Chronic airspace opacities at the lung bases, consistent with sickle cell chronic lung disease. - Sickle cell lung disease appears to be a chronic finding when reviewing previous imaging - H/H 10.6/28.3 on am labs. Appears to be around baseline. - Absolute retic 0.17, % retic 5.19, and immature retic 34.5 on admission. 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 States he has missed his medication for 1-2 days. 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 Exam nonconcerning for acute chest syndrome. EKG reviewed and showing sinus rhythm. Chest XR: Chronic airspace opacities at the lung bases, consistent with sickle cell chronic lung disease. Sickle cell lung disease appears to be a chronic finding when reviewing previous imaging. He remains on his home methadone and oxy with dilaudid 2 q3 for breakthrough. Hes on continuous oximetry due to high level of pain meds. INR therapeutic, will continue patients home warfarin and DC lovenox. 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 Patient is pleasant lying in bed. He continues to endorse mid back pain that worsens with ambulation. He is still requiring the 2 dilaudid at this time for his pain. Discussed with patient that as we get closer to discharge we will try to further wean this medication back to his normal pain regimen of only oxy for breakthrough. He states understanding. Patient denies chest pain, shortness of breath, nausea/vomiting and changes in bowel/bladder. 12/10- assuming care. Pt is seen and examined. required only 1 IV dose of pain meds- goal is to try to manage pain with PO meds and discharge home tomorrow if stable Review of Systems Review of Systems: All systems reviewed & are unremarkable except as noted in HPI and below Exam Narrative: pt is alert, pleasant, pain is well controlled General: male in no acute respiratory distress who is nontoxic appearing, lying semi recumbent in bed. Chest: Lungs are clear to auscultation bilaterally. No wheezes or crackles. CV: Heart was regular rate and rhythm. S1/S2. No murmurs, gallops, or rubs. Abd: Abdomen was soft. Nontender. Nondistended. Positive bowel sounds. No organomegaly or masses. Neuro: Strength is symmetrical in both upper and lower extremities. Cranial nerves 2-12 are intact. Speech is clear. Objective Data Vital Signs Vital Signs: Vital Signs - 24 hr 12/10/23 14:00 12/10/23 21:30 12/11/23 05:45 Temperature 98.3 F 97.2 F L 97.0 F L Pulse Rate 78 78 72 Respiratory Rate 18 16 13 Blood Pressure 121/70 130/81 115/79 Pulse Oximetry 95 93 95 Intake/Output Intake/Output: Intake & Output 12/08/23 12/09/23 12/10/23 12/11/23 23:59 23:59 23:59 23:59 Intake Total 2832 3506 4263.8 1500 Output Total 900 2335 3000 1200 Balance 1932 1171 1263.8 300 Meds/Results Medications: Active Medications Generic Name Dose Route Start Last Admin Trade Name Freq PRN Reason Stop Dose Admin Acetaminophen 650 mg 12/08/23 03:34 Acetaminophen 325 Mg Tablet PO Q4H PRN Mild Pain (1-3) or Fever Diphenhydramine HCl 50 mg 12/08/23 05:56 12/11/23 08:16 Diphenhydramine Hcl Inj 50 Mg/Ml Vial IV PUSH 50 mg Q6H PRN Administration Itching Folic Acid 1 mg 12/08/23 09:00 12/11/23 08:16 Folic Acid 1 Mg Tablet PO 1 mg DAILY CHRISTOPHER Administration Hydromorphone HCl 2 mg 12/09/23 14:45 12/11/23 08:16 Hydromorphone Hcl Inj (*Crx) 1 Mg/Ml Syr IV PUSH 2 mg Q3H PRN Administration Pain Rated 7-10 Hydroxyurea 500 mg 12/08/23 09:00 12/11/23 08:16 Hydroxyurea (*Chemo) 500 Mg Capsule PO 500 mg QAM CHRISTOPHER Administration Lactated Ringer's 1,000 mls @ 125 mls/hr 12/08/23 03:35 12/11/23 05:26 Lr - Lactated Ringers Iv IV CONT 125 mls/hr .Q8H CHRISTOPHER Administration Methadone HCl 10 mg 12/08/23 17:00 12/11/23 08:16 Methadone Hcl (*Crx) 10 Mg Tablet PO 10 mg TID@0900,1700,2100 CHRISTOPHER Administration Oxycodone/Acetaminophen 1 tab 12/08/23 08:02 12/08/23 18:38 Oxycodone/Acetaminophen (*Crx) 10-325 Mg Tablet PO 1 tab BID PRN Administration Pain, Moderate Warfarin Sodium 10 mg 12/08/23 18:00 12/10/23 16:31 Warfarin (*Pbkc) 10 Mg Tablet PO 10 mg EVENING CHRISTOPHER Administration Warfarin Sodium 5 mg 12/08/23 18:00 12/10/23 16:30 Warfarin (*Pbkc) 5 Mg Tablet PO 5 mg EVENING CHRISTOPHER Administration Radiology Results: ITS Impressions Chest X-Ray 12/08/23 06:19 IMPRESSION: 1. Chronic airspace opacities at the lung bases, consistent with sickle cell chronic lung disease. Labs Labs: Laboratory Results - last 24 hr 12/10/23 12/11/23 08:14 06:17 WBC 9.0 9.2 RBC 3.18 L 3.18 L Hgb 10.6 L 10.3 L Hct 28.3 L 28.5 L MCV 89.0 89.6 MCH 33.3 32.4 MCHC 37.5 H 36.1 H RDW 13.5 13.6 Plt Count 380 H 351 MPV 10.7 H 10.4 Immature Gran % (Auto) 0.1 0.1 Neut % (Auto) 32.3 L 36.7 L Lymph % (Auto) 46.5 H 42.3 [place] % (Auto) 7.4 8.0 Eos % (Auto) 12.5 H 11.7 H Baso % (Auto) 1.2 1.2 Lymph # (Auto) 4.16 H 3.89 H [place] # (Auto) 0.7 H 0.7 H Eos # (Auto) 1.1 H 1.1 H Baso # (Auto) 0.1 0.1 Abs Immat Gran (auto) 0.01 0.01 Absolute Neuts (auto) 2.9 3.4 Absolute Nucleated RBC 0.020 H 0.030 H Nucleated RBC % 0.2 0.3 H Platelet Estimate Slightly increased Hypochromasia 1+ Anisocytosis 1+ Target Cells 2+ Schistocytes Rare PT 25.6 H D INR 2.3 Sodium 138 Potassium 3.9 Chloride 102 Carbon Dioxide 26 Anion Gap 10 BUN 5 L Creatinine 0.80 Estim Creat Clear Calc 133 Estimated GFR > 60 Glucose 104 Calcium 8.2 L Total Bilirubin 0.8 AST 30 ALT 13 Alkaline Phosphatase 73 Total Protein 7.0 Albumin 3.7 Quality VTE Prophylaxis VTE prophylaxis: pharmacologic ordered
--- NOTE | 2023-12-11 12:18 | PDONCCN ---
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 He also has a history of pulmonary embolism and has been on long-term anticoagulation therapy with warfarin. He was also taking hydroxyurea 500 mg daily. He came into the hospital with generalized musculoskeletal discomfort more in the upper back and the lower extremities. He denies any fevers and chills. Denies any other signs of infection. His home pain medication include methadone twice a day along with hydrocodone. Chest x-ray was performed that showed chronic airspace opacities in the lung consistent with sickle cell chronic lung disease. Labs showed hemoglobin of 10.3 with normal LDH of 197. INR was slightly low at 1.3. He said that he has been taking warfarin regularly except the day before the admission. He was started on IV hydration and slowly started feeling better with IV Dilaudid. Review of Systems - Review of Systems All systems reviewed & are unremarkable except as noted in HPI and [facility] Medical History: Medical History (Last Reviewed 12/08/23 @ 17:58 by Zahraa Birch PA-C) Acute chest syndrome Chronic anticoagulation Due to history of DVT and pulmonary embolism. Chronic narcotic use On methadone with oxycodone for chronic pain related to sickle cell disease. 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 Deep venous thrombosis Noncompliance History of noncompliance with anticoagulation and hydroxyurea. Pulmonary embolism Sickle cell disease, type SC Surgical History: Surgical History (Last Reviewed 12/08/23 @ 17:58 by Zahraa Birch PA-C) History of hand surgery Tendon surgery on right 5th finger. Family History: Family History (Last Reviewed 12/08/23 @ 17:58 by Zahraa Birch PA-C) Grandparent Diabetes mellitus Acute myocardial infarction Sibling Asthma Sibling Asthma Mother Hypertension Sickle cell trait Son Sickle cell trait Daughter Sickle cell trait Grandparent No problems noted. Other Diabetes mellitus Father Sickle cell trait - Social History Social History: Social History (Last Updated 12/08/23 @ 17:59 by DOMINGO Myers Alcohol Use: Alcohol intake: never Substance Use: Substance use: never Substance use type: marijuana Other substance usage details: For back when he doesn't have any pain meds available. Last use: 12/28/22 Others: Spiritual care concerns: No Agree to blood products: Yes Living Arrangements: Living arrangements: with family Oppucation/Education: Occupation/Education: other Smoking Status: Smoking status: Never smoker Second hand tobacco smoke exposure: No Comments: Additional smoking assessment comments: Smokes marijuana when pain meds unavailable. Social Determinants of Health: Do You Feel Safe in your Home?: Yes Has the Lack of Transportation Kept You From Medical Appointments or From Getting Medications?: No Within the Past 12 Months, Were You Worried Whether Your Food Would Run Out Before You Got Money to Buy More?: Never True What is Your Housing Situation Today?: I Have Housing Are You Worried That in the Next 2 Months, You May Not Have Your Own Housing to Live In?: No Do You Have Trouble Paying Your Heating Or Electricity Bill?: No Do You Have Trouble Paying For Medicines?: No Are You Currently Unemployed and Looking for Work?: No Highest Level of Education Completed: Associate Degree Do You Have Trouble With Childcare or the Care of a Family Member?: No Exam - Vital Signs Vital Signs - 24 hr 12/10/23 14:00 12/10/23 21:30 12/11/23 05:45 Temperature 36.8 C 36.2 C L 36.1 C L Pulse Rate 78 78 72 Respiratory Rate 18 16 13 Blood Pressure 121/70 130/81 115/79 Pulse Oximetry 95 93 95 Oxygen Delivery 12/11/23 08:16 Temperature Pulse Rate Respiratory Rate Blood Pressure Pulse Oximetry Oxygen Delivery Room Air - Exam HEENT: EOMI, PERRLA, mucous membranes moist and pink Neck: supple Lungs: clear to auscultation, normal air movement Heart: no murmurs, gallops, or rubs, regular rhythm Abdomen: abdomen soft, non-distended Extremities: normal pulses Integumentary: no abnormalities Neurological: normal speech Psychological: mental status NL, mood NL - Lab Results Laboratory Last Values WBC 9.2 K/mm3 (4.5-10.0) 12/11/23 06:17 RBC 3.18 M/mm3 (4.6-6.20) L 12/11/23 06:17 Hgb 10.3 g/dL (14.0-18.0) L 12/11/23 06:17 Hct 28.5 % (42.0-52.0) L 12/11/23 06:17 MCV 89.6 fl (80-100) 12/11/23 06:17 MCH 32.4 pg (26-34) 12/11/23 06:17 MCHC 36.1 g/dl (32-36) H 12/11/23 06:17 RDW 13.6 % (11.5-14.5) 12/11/23 06:17 Plt Count 351 k/mm3 (150-375) 12/11/23 06:17 MPV 10.4 fl (7.4-10.4) 12/11/23 06:17 Immature Gran % (Auto) 0.1 % (0-0.5) 12/11/23 06:17 Neut % (Auto) 36.7 % (45.5-73.1) L 12/11/23 06:17 Lymph % (Auto) 42.3 % (18.3-44.2) 12/11/23 06:17 [place] % (Auto) 8.0 % (2.6-8.5) 12/11/23 06:17 Eos % (Auto) 11.7 % (0-4.4) H 12/11/23 06:17 Baso % (Auto) 1.2 % (0.2-1.2) 12/11/23 06:17 Lymph # (Auto) 3.89 K/mm3 (0.9-3.2) H 12/11/23 06:17 [place] # (Auto) 0.7 K/mm3 (0.1-0.6) H 12/11/23 06:17 Eos # (Auto) 1.1 K/mm3 (0-0.3) H 12/11/23 06:17 Baso # (Auto) 0.1 K/mm3 (0.0-0.1) 12/11/23 06:17 Abs Immat Gran (auto) 0.01 K/mm3 (0.00-0.031) 12/11/23 06:17 Absolute Neuts (auto) 3.4 K/mm3 (1.3-6.7) 12/11/23 06:17 Absolute Nucleated RBC 0.030 K/mm3 (0.0-0.012) H 12/11/23 06:17 Nucleated RBC % 0.3 % (0.0-0.2) H 12/11/23 06:17 Platelet Estimate Slightly increased (Adequate) 12/10/23 08:14 % Immature Plt Fraction 3.8 % (0.9-11.2) 12/07/23 22:59 Hypochromasia 1+ 12/10/23 08:14 Anisocytosis 1+ 12/10/23 08:14 Target Cells 2+ 12/10/23 08:14 Schistocytes Rare 12/10/23 08:14 Absolute Retic 0.17 10^6/uL (0.02-0.10) H 12/07/23 22:59 Percent Retic 5.19 % (0.7-4.3) H 12/07/23 22:59 Immature Retic Fraction 34.5 % (3.0-15.9) H 12/07/23 22:59 Retic Hgb Content 31.1 pg (28.2-36.6) 12/07/23 22:59 PT 25.6 Seconds (11.1-14.7) H D 12/11/23 06:17 INR 2.3 12/11/23 06:17 APTT 27.9 Seconds (22.3-36.8) 12/08/23 08:46 Sodium 138 mmol/L (137-145) 12/11/23 06:17 Potassium 3.9 mmol/L (3.4-5.0) 12/11/23 06:17 Chloride 102 mmol/L (98-107) 12/11/23 06:17 Carbon Dioxide 26 mmol/L (22-30) 12/11/23 06:17 Anion Gap 10 mmol/L (4-12) 12/11/23 06:17 BUN 5 mg/dL (9-20) L 12/11/23 06:17 Creatinine 0.80 mg/dL (0.7-1.3) 12/11/23 06:17 Estim Creat Clear Calc 133 ml/min 12/11/23 06:17 Estimated GFR > 60 (59-) 12/11/23 06:17 Glucose 104 mg/dL (65-110) 12/11/23 06:17 Calcium 8.2 mg/dL (8.4-10.2) L 12/11/23 06:17 Total Bilirubin 0.8 mg/dL (0.2-1.3) 12/11/23 06:17 AST 30 U/L (17-59) 12/11/23 06:17 ALT 13 U/L (6-50) 12/11/23 06:17 Alkaline Phosphatase 73 U/L (38-126) 12/11/23 06:17 Lactate Dehydrogenase 197 U/L (120-246) 12/07/23 22:58 Total Protein 7.0 g/dL (6.3-8.2) 12/11/23 06:17 Albumin 3.7 g/dL (3.5-5.1) 12/11/23 06:17 Influenza A (RT-PCR) Negative (Negative) 12/07/23 23:53 Influenza B (RT-PCR) Negative (Negative) 12/07/23 23:53 RSV (RT-PCR) Negative (Negative) 12/07/23 23:53 SARS-CoV-2 RNA (RT-PCR) Negative (Negative) 12/07/23 23:53 Meds Home Medications Medication Instructions Recorded Confirmed Type folic acid 1 mg tablet 1 mg PO DAILY 02/16/19 12/08/23 History methadone 10 mg tablet 10 mg PO TID 08/22/20 12/08/23 History oxycodone-acetaminophen 10 mg-325 1 tablet PO BID PRN Pain, Moderate 08/22/20 12/08/23 History mg tablet hydroxyurea 500 mg capsule 500 mg PO QAM #30 caps 11/23/21 12/08/23 Rx ibuprofen 800 mg tablet 800 mg PO PRN 12/30/22 12/08/23 History warfarin 10 mg tablet 10 mg PO HS 06/22/23 12/08/23 History warfarin 5 mg tablet 5 mg PO DAILY #30 tabs 06/27/23 12/08/23 Rx Allergies Allergy/AdvReac Type Severity Reaction Status Date / Time Fish Containing Products Allergy Mild Itching Verified 12/07/23 16:04 Results - Labs CBC & Chem 7: 12/11/23 06:17 12/11/23 06:17 Labs: Short CBC 12/11/23 Range/Units 06:17 WBC 9.2 (4.5-10.0) K/mm3 Hgb 10.3 L (14.0-18.0) g/dL Hct 28.5 L (42.0-52.0) % Plt Count 351 (150-375) k/mm3 [facility] 12/11/23 06:17 Sodium 138 Potassium 3.9 Chloride 102 Carbon Dioxide 26 BUN 5 L Creatinine 0.80 Glucose 104 Calcium 8.2 L Liver Function 12/11/23 Range/Units 06:17 Total Bilirubin 0.8 (0.2-1.3) mg/dL AST 30 (17-59) U/L ALT 13 (6-50) U/L Alkaline Phosphatase 73 (38-126) U/L Albumin 3.7 (3.5-5.1) g/dL Assessment and Plan - Additional Plan Sickle cell crisis with history of hemoglobin SC disease. Patient got admitted to the hospital with his typical flare-up of sickle cell crisis. Labs showed stable hemoglobin. LDH was also normal. Chest x-ray came back negative for any signs of infection. His pain was not under control with home regimen including methadone and [place]. Now he is feeling better with IV Dilaudid. Continue IV hydration. He will also continue hydroxyurea 500 mg daily along with folic acid. Hopefully will be ready to go home in next 24-48 hours. Recurrent pulmonary embolism. Patient will continue warfarin to achieve the therapeutic INR. Currently on pain 15 mg daily
[2023-12-11] MEDS: oxyCODONE/ACETAMINOPHEN (*CRX) 10-325 MG TABLET 1 TAB PO (12:32)
[2023-12-11 13:22] VITALS: PULSE 72; RESP 15; O2SAT 96
[2023-12-11 13:56] VITALS: BP 117/72; PULSE 78; RESP 16; TEMP 36.7; O2SAT 94
[2023-12-11] MEDS: WARFARIN (*PBKC) 5 MG TABLET PO (17:10)
[2023-12-11] MEDS: WARFARIN (*PBKC) 10 MG TABLET PO (17:10)
[2023-12-11 21:11] VITALS: BP 120/82; PULSE 82; RESP 20; TEMP 36.4; O2SAT 100
[2023-12-11 22:24] VITALS: PULSE 75; RESP 14; O2SAT 94
[2023-12-12] MEDS: diphenhydrAMINE HCl INJ 50 MG/ML VIAL IV PUSH ×2 (00:43→11:16)
[2023-12-12] MEDS: HYDROmorphone HCL INJ (*CRX) 1 MG/ML SYR 2 MG IV PUSH ×4 (02:41→12:35)
[2023-12-12 06:00] VITALS: BP 118/64; PULSE 76; RESP 16; TEMP 37.1; O2SAT 94
[2023-12-12] MEDS: LACTATED RINGERS 1,000 ML 125 ML IV CONT (06:17)
[2023-12-12 06:38] LABS: Basophils Absolute Auto 0.1 K/mm3 (0.0-0.1); Basophils Percent Auto 0.7 % (0.2-1.2); Eosinophils Percent Auto 9.3 % (0-4.4); Hematocrit 28.4 % (42.0-52.0); Hemoglobin 10.1 g/dL (14.0-18.0); Immature Granulocyte Absolute 0.03 K/mm3 (0.00-0.031); Immature Granulocyte Percent A 0.3 % (0-0.5); Lymphocytes Absolute Auto 2.87 K/mm3 (0.9-3.2); Lymphocytes Percent Auto 26.6 % (18.3-44.2); Mean Corpuscular HGB Conc 35.6 g/dl (32-36); Mean Corpuscular Hemoglobin 31.8 pg (26-34); Mean Corpuscular Volume 89.3 fl (80-100); Mean Platelet Volume 10.1 fl (7.4-10.4); Monocytes Percent Auto 9.5 % (2.6-8.5); Neutrophils Absolute Auto 5.8 K/mm3 (1.3-6.7); Neutrophils Percent Auto 53.6 % (45.5-73.1); Platelet Count Result 318 k/mm3 (150-375); Red Blood Count 3.18 M/mm3 (4.6-6.20); Red Cell Distribution Width 13.7 % (11.5-14.5); White Blood Count 10.8 K/mm3 (4.5-10.0)
[2023-12-12 06:59] LABS: INR 2.5; Prothrombin Time 27.4 Seconds (11.1-14.7)
[2023-12-12 07:01] LABS: Alanine Aminotransferase 14 U/L (6-50); Albumin Level 3.9 g/dL (3.5-5.1); Alkaline Phosphatase 76 U/L (38-126); Anion Gap 11 mmol/L (4-12); Aspartate Amino Transferase 29 U/L (17-59); Bilirubin,Total 0.9 mg/dL (0.2-1.3); Blood Urea Nitrogen 5 mg/dL (9-20); Calcium 8.4 mg/dL (8.4-10.2); Carbon Dioxide 24 mmol/L (22-30); Chloride 101 mmol/L (98-107); Estimated CRCL calculation 133 ml/min; Estimated Glomerular Filt Rate > 60; Glucose 105 mg/dL (65-110); Potassium 4.1 mmol/L (3.4-5.0); Sodium 136 mmol/L (137-145)
[2023-12-12 07:14] LABS: Platelet Estimate Adequate (Adequate)
[2023-12-12 07:15] LABS: Anisocytosis 1+; Hypochromasia 1+; Schistocytes Rare; Sickle Cells 1+; Target Cells 2+
[2023-12-12] MEDS: HYDROXYUREA (*CHEMO) 500 MG CAPSULE PO (09:28)
[2023-12-12] MEDS: FOLIC ACID 1 MG TABLET PO (09:28)
[2023-12-12] MEDS: methADONE HCL (*CRX) 10 MG TABLET PO (09:28)
[2023-12-12 11:14] VITALS: BP 127/78; PULSE 74; RESP 19; O2SAT 98
[2023-12-12] MEDS: oxyCODONE/ACETAMINOPHEN (*CRX) 10-325 MG TABLET 1 TAB PO (11:15)
--- NOTE | 2023-12-12 13:15 | PM.DS ---
DS: Admitting Diagnosis Discharge Date 12/11 Admitting Diagnosis pain DS: Discharge Diagnosis Discharge Diagnosis (1) Sickle cell pain crisis: Code(s): D57.00 - Hb-SS disease with crisis, unspecified Status: Acute Assessment and Plan: Patient has hx of sickle cell and reported to the hospital for a pain crisis. Likely secondary to patient being noncompliant with medications. He reports pain started on 12/06 in his back then progressed to his shoulder and down his legs. He has multiple hospitalizations for the same compalint. He denies chest pain, shortness of breath and vitals remain stable. - EKG reviewed and showing sinus rhythm - Chest XR: Chronic airspace opacities at the lung bases, consistent with sickle cell chronic lung disease. - Sickle cell lung disease appears to be a chronic finding when reviewing previous imaging - H/H 10.6/28.3 on am labs. Appears to be around baseline. - Absolute retic 0.17, % retic 5.19, and immature retic 34.5 on admission. 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 States he has missed his medication for 1-2 days. 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 Exam nonconcerning for acute chest syndrome. EKG reviewed and showing sinus rhythm. Chest XR: Chronic airspace opacities at the lung bases, consistent with sickle cell chronic lung disease. Sickle cell lung disease appears to be a chronic finding when reviewing previous imaging. He remains on his home methadone and oxy with dilaudid 2 q3 for breakthrough. Hes on continuous oximetry due to high level of pain meds. INR therapeutic, will continue patients home warfarin and DC lovenox. DS: Summary Hospital Course Hospital Course: Interval history: 38-year-old male with history of hemoglobin SC disease, chronic pain syndrome related to sickle cell disease, and DVT and PE on chronic anticoagulation who presented to the emergency department for evaluation of pain. Patient is pleasant lying in bed. He continues to endorse mid back pain that worsens with ambulation. He is still requiring the 2 dilaudid at this time for his pain. Discussed with patient that as we get closer to discharge we will try to further wean this medication back to his normal pain regimen of only oxy for breakthrough. He states understanding. Patient denies chest pain, shortness of breath, nausea/vomiting and changes in bowel/bladder. 12/10- assuming care. Pt is seen and examined. required only 1 IV dose of pain meds- goal is to try to manage pain with PO meds and discharge home tomorrow if stable 12/11- doing well- pain is controlled INR 2.5- continue warfarin Hematology is following- Status at Discharge Functional status at discharge: independent ambulation Overall status at discharge: patient is back to baseline Time Spent with Patient Time attestation: Total time spent providing and/or coordinating discharge services: Time spent: Less than 30 minutes Exam Narrative: pt is alert, pleasant, pain is well controlled General: male in no acute respiratory distress who is nontoxic appearing, lying semi recumbent in bed. Chest: Lungs are clear to auscultation bilaterally. No wheezes or crackles. CV: Heart was regular rate and rhythm. S1/S2. No murmurs, gallops, or rubs. Abd: Abdomen was soft. Nontender. Nondistended. Positive bowel sounds. No organomegaly or masses. Neuro: Strength is symmetrical in both upper and lower extremities. Cranial nerves 2-12 are intact. Speech is clear. Const: General: comfortable DS: Data Data Completed and Pending Completed studies during hospitalization: chets xray Labs on day of discharge: Labs from last 24 hours 12/12/23 06:26 WBC 10.8 H RBC 3.18 L Hgb 10.1 L Hct 28.4 L MCV 89.3 MCH 31.8 MCHC 35.6 RDW 13.7 Plt Count 318 MPV 10.1 Immature Gran % (Auto) 0.3 Neut % (Auto) 53.6 Lymph % (Auto) 26.6 [place] % (Auto) 9.5 H Eos % (Auto) 9.3 H Baso % (Auto) 0.7 Lymph # (Auto) 2.87 [place] # (Auto) 1.0 H Eos # (Auto) 1.0 H Baso # (Auto) 0.1 Abs Immat Gran (auto) 0.03 Absolute Neuts (auto) 5.8 Absolute Nucleated RBC 0.000 Nucleated RBC % 0.0 Platelet Estimate Adequate Hypochromasia 1+ Anisocytosis 1+ Sickle Cells 1+ Target Cells 2+ Schistocytes Rare PT 27.4 H INR 2.5 Sodium 136 L Potassium 4.1 Chloride 101 Carbon Dioxide 24 Anion Gap 11 BUN 5 L Creatinine 0.80 Estim Creat Clear Calc 133 Estimated GFR > 60 Glucose 105 Calcium 8.4 Total Bilirubin 0.9 AST 29 ALT 14 Alkaline Phosphatase 76 Total Protein 7.0 Albumin 3.9 Discharge Plan Discharge Discharging Clinician: Mariella Juarez Patient Disposition: Home, Self-Care Activity: may shower Diet: as tolerated and regular Discharge Instructions: You were admitted for Sc flare up. We didnot find an obvious source of infection. You were treated with IV fluids and pain control. Please continue home regimen including methadone and [place]. Also continue hydroxyurea 500 mg daily along with folic acid. Your INR is 2.5 -so please continue your warfarin. keep you follow ups for pcp, hematology and labs for blood work for warfarin. Patient Instructions: Antibiotic Form, Warfarin (By mouth) Stand Alone Forms: General Discharge Information Follow-up/Referrals: Jone Marks MD [Primary Care Provider] - 1 Week Discharge Medications: Continued folic acid 1 mg Tablet 1 mg PO DAILY methadone 10 mg tablet 10 mg PO TID Rx Instructions: 0900, 1700, 2100 oxycodone-acetaminophen 10-325 mg tablet 1 tablet PO BID PRN (Reason: Pain, Moderate) hydroxyurea 500 mg Capsule 500 mg PO QAM Qty: 30 0RF ibuprofen 800 mg tablet 800 mg PO PRN warfarin 10 mg tablet 10 mg PO HS Patient Comments: Takes with 2mg tablet for dose of 12mg warfarin 5 mg tablet 5 mg PO DAILY Qty: 30 0RF Rx Instructions: take in addition to the 10 mg for a total of 15 mg. Date of admission: 12/09/23 10:41 Primary Care Provider: Jone Marks Admitting Provider: Ally Juarez V. Attending physician on admission: Zahraa Birch Condition: Stable Quality VTE Prophylaxis VTE prophylaxis: pharmacologic ordered
[2023-12-12 13:54] VITALS: BP 120/79; PULSE 87; RESP 16; TEMP 36.9; O2SAT 96
== END 2023-12-12 14:50 | disposition home or self-care (01) | DRG 812 ==
LOC: ANHED 22:10 → ANH3MEDSUR 12-08 04:19
PROVIDERS: Student in an Organized Health Care Education/Training Program; Admitting Provider Internal Medicine; Emergency Provider Student in an Organized Health Care Education/Training Program; PCP Internal Medicine Hematology & Oncology; Visit Provider Nurse Practitioner
DX: D57.00 Hb-SS disease with crisis, unspecified (principal); G89.4 Chronic pain syndrome; Z91.148 Patient's other noncompliance with medication regimen for other reason; Z79.01 Long term (current) use of anticoagulants; Z86.718 Personal history of other venous thrombosis and embolism; Z86.711 Personal history of pulmonary embolism
CPT/HCPCS: 36415; 71045; 80053; 83615; 85025; 85046; 85055; 85610; 85730; 87637; 93005; 96361; 96372; 96374; 96375; 96376; 99285; A9270; G0378; G0379; J1170; J1200; J1650; J1885; J3010; J7030; J7120

== ENCOUNTER 2023-12-14 22:10 | Inpatient (IN) | payer MEDICARE, OTHER, SELFPAY ==
--- NOTE | ~2023-12-14 | CT_ITS ---
Clinical Indication: Sepsis, chest and abdominal pain, sickle cell CT Scan of the Chest, Abdomen, and Pelvis with Contrast: Technique: Contiguous sections were acquired throughout the chest, abdomen, and pelvis after intraven ous administration of 100 cc of Omnipaque 350. Dose reduction technique was used on this scan by sophia howard automated exposure control and iterative reconstruction technique. The dose-length product (DL P) was 1174.10 mGy-cm. COMPARISON: 05/14/2022 Findings: There is no evidence of any significant mediastinal, hilar or axillary lymphadenopathy. Stable residu al thymic tissue noted. Mediastinal vascular structures are unremarkable. There is no evidence of pleural or pericardial effusion. . There is left basilar consolidation, which could reflect atelectasis versus pneumonia. There is pro bable scarring and atelectasis at the right lung base, including both lower lobe and right middle lob e. The liver, pancreas, adrenal glands are within normal limits. Small gallstones are present. Spleen is small and mildly hyperdense, compatible with progressing autoinfarction related to sickle cell disea se. Questionable minimal heterogeneity enhancement of the kidneys. No evidence of aortic aneurysm. N o lymphadenopathy. No bowel obstruction or bowel wall thickening. There is no evidence to suggest acute appendicitis. Urinary bladder is unremarkable. No pelvic mass seen. No ascites. Osseous manifestations of sickle cell disease are noted, with extensive sclerotic change of the osseo us structures and multiple central endplate depressions in the spine. Scattered small bone infarcts a re probably present. Impression: There is bibasilar consolidation, left worse than right, most likely representing atelectasis/scarrin g, though pneumonia is not excluded. Correlate clinically. Questionable minimal heterogeneous enhancement of the kidneys. This is felt to be likely within ciaran l limits, however correlation with urinalysis is recommended to assess for any possibility of pyelone phritis/UTI. Reviewed, dictated and finalized at location M. Impression: There is bibasilar consolidation, left worse than right, most likely representi ng atelectasis/scarring, though pneumonia is not excluded. Correlate clinically . Questionable minimal heterogeneous enhancement of the kidneys. This is felt to be likely within normal limits, however correlation with urinalysis is recommen ded to assess for any possibility of pyelonephritis/UTI.
--- NOTE | ~2023-12-14 | US_ITS ---
Renal-Bladder ultrasound Clinical History: Acute renal sufficiency Technique: Real-time sonographic imaging of the kidneys and urinary bladder was performed. Findings: The right kidney measures 13.3 cm in length and the left kidney measures 11.6 cm. There is no hydronephrosis or renal calculus identified. Renal cortical echogenicity is within normal limits. No renal mass lesion is identified. The urinary bladder is moderately distended at the time of this exam. No intraluminal echoes are iden tified. No abnormal wall thickening is seen. Impression: Unremarkable ultrasound of the kidneys and urinary bladder. Reviewed, dictated and finalized at location M. Impression: Unremarkable ultrasound of the kidneys and urinary bladder.
--- NOTE | ~2023-12-14 | XR_ITS ---
Portable chest x-ray Comparison: 12/07/2023 Clinical History: Sickle cell Findings: There is mild haziness/interstitial prominence at the left lung base. Right lung clear. C ardiomediastinal silhouette is stable. Bones and soft tissues are unremarkable. Impression: Left basilar atelectasis versus possibly pneumonia. Correlate clinically. Reviewed, dictated and finalized at [facility]. Impression: Left basilar atelectasis versus possibly pneumonia. Correlate clinically.
--- NOTE | ~2023-12-14 | XR_ITS ---
Portable chest x-ray Comparison: 12/14/2023 Clinical History: PICC line placement Findings: Right-sided PICC line in size and position. Probable mild bibasilar pulmonary edema/atelec tasis. No pneumothorax. Cardiomediastinal silhouette is stable. Bones and soft tissues are unremarka ble. Impression: Right-sided PICC line in satisfactory position. No pneumothorax. Mild bibasilar pulmonary edema/atelectasis. Reviewed, dictated and finalized at location . Impression: Right-sided PICC line in satisfactory position. No pneumothorax. Mild bibasilar pulmonary edema/atelectasis.
--- NOTE | ~2023-12-14 | US_ITS ---
Limited Abdominal Sonogram: Real-time sonographic imaging of the right upper quadrant was performed. Clinical History: Evaluate gallbladder Findings: The liver appears normal with no evidence of mass lesion or bile duct dilatation. Main por tessa vein demonstrates normal direction of flow. The gallbladder is well distended, and contains small echogenic gallstones. Gallbladder wall minimally thickened at 4 mm. The common bile duct measures 2 mm. The visualized pancreas, aorta, and IVC are unremarkable. Impression: Cholelithiasis. Minimal gallbladder wall thickening raises the possibility of superimposed acute chol ecystitis. Correlate clinically. Consider HIDA scan as indicated. Reviewed, dictated and finalized at location . Impression: Cholelithiasis. Minimal gallbladder wall thickening raises the possibility of s uperimposed acute cholecystitis. Correlate clinically. Consider HIDA scan as in dicated.
[2023-12-14 22:12] VITALS: BP 131/109; PULSE 139; RESP 28; TEMP 38.3; O2SAT 94
--- NOTE | 2023-12-14 22:15 | ECG_ITS ---
Test Date: 2023-12-14 22:18:48 Measurements Intervals [place] Rate: 135 P: 43 MI: 144 QRS: 48 QRSD: 77 T: 26 QT: 331 QTc: 497 Interpretive Statements SINUS TACHYCARDIA LOW QRS VOLTAGE IN PRECORDIAL LEADS ST DEVIATION AND MODERATE T-WAVE ABNORMALITY, CONSIDER ANTEROLATERAL ISCHEMIA ST DEVIATION AND MODERATE T-WAVE ABNORMALITY, CONSIDER INFERIOR ISCHEMIA ABNORMAL ECG Compared to ECG 12/07/2023 23:50:48 HEART RATE HAS INCREASED Low QRS voltage now present ST-T WAVE ABNORMALITY NOW PRESENT Electronically Signed On 12-15-2023 07:27:50 CDT by Ricky Modi D.O.
[2023-12-14 22:23] VITALS: RESP 28; O2SAT 94
[2023-12-14 22:33] LABS: Glucose Point of Care 141 mg/dl (65-105)
[2023-12-14] MEDS: LACTATED RINGERS 3,000 ML 999 ML IV CONT (22:35)
[2023-12-14 22:41] LABS: Immature Reticulocyte Fraction 20.8 % (3.0-15.9); Reticulocyte Hemoglobin Conten 26.8 pg (28.2-36.6)
[2023-12-14] MEDS: PIPERACILLN/TAZ 3.375GM/NS50ML 3.375 GM/50 ML BAG IVPB (22:47)
[2023-12-14 22:50] LABS: Hematocrit 29.6 % (42.0-52.0); Hemoglobin 10.5 g/dL (14.0-18.0); Mean Corpuscular HGB Conc 35.5 g/dl (32-36); Mean Corpuscular Hemoglobin 32.1 pg (26-34); Mean Corpuscular Volume 90.5 fl (80-100); Mean Platelet Volume 10.9 fl (7.4-10.4); Platelet Count Result 161 k/mm3 (150-375); Red Blood Count 3.27 M/mm3 (4.6-6.20); Red Cell Distribution Width 14.8 % (11.5-14.5); White Blood Count 24.7 K/mm3 (4.5-10.0)
[2023-12-14 22:55] VITALS: BP 105/84; PULSE 123; RESP 30; O2SAT 96
[2023-12-14 23:05] LABS: Lactic Acid Reflex 9.8 mmol/L (0.7-2.0)
[2023-12-14 23:06] LABS: Albumin Level 4.4 g/dL (3.5-5.1); Alkaline Phosphatase 104 U/L (38-126); Anion Gap 23 mmol/L (4-12); Aspartate Amino Transferase 123 U/L (17-59); Bilirubin,Total 3.8 mg/dL (0.2-1.3); Blood Urea Nitrogen 21 mg/dL (9-20); Calcium 8.9 mg/dL (8.4-10.2); Carbon Dioxide 13 mmol/L (22-30); Chloride 104 mmol/L (98-107); Estimated CRCL calculation 59 ml/min; Estimated Glomerular Filt Rate 51; Glucose 150 mg/dL (65-110); Lipase 89 U/L (23-300); Magnesium 1.5 mg/dL (1.6-2.3); Phosphorus 2.8 mg/dL (2.5-4.5); Potassium 3.7 mmol/L (3.4-5.0); Sodium 140 mmol/L (137-145)
[2023-12-14 23:08] LABS: Alanine Aminotransferase 44 U/L (6-50)
[2023-12-14 23:14] LABS: NT Pro B Type Natriuretic Pept 3050 pg/mL (19.9-100); Troponin I 0.016 ng/mL (0.000-0.034)
[2023-12-14] MEDS: DOXYCYCLINE 100 MG/NS 100 ML 100 MG/100 ML BAG IVPB (23:14)
[2023-12-14 23:18] VITALS: BP 109/53; PULSE 121; RESP 34; TEMP 37.6; O2SAT 93
[2023-12-14 23:33] LABS: Thyroid Stimulating Hormone Reflex 0.209 uIU/mL (0.465-4.68)
[2023-12-14 23:35] LABS: Band Neutrophils Percent 15 % (0-6); Lymphocytes Absolute Manual 0.74 K/mm3 (1.1-4.5); Monocytes Absolute Manual 0.74 K/mm3 (0.1-0.90); Monocytes Percent Manual 3 % (3-9); Neutrophils Absolute Manual 23.21 K/mm3 (1.3-6.7); Neutrophils Percent Manual 79 % (46-73); Platelet Estimate Adequate (Adequate); Total Cells Counted 100
[2023-12-14 23:36] LABS: Schistocytes None Seen
[2023-12-14 23:37] LABS: Target Cells 1+
[2023-12-14] MEDS: HYDROmorphone HCL INJ (*CRX) 1 MG/ML SYR 2 MG IV PUSH (23:40)
[2023-12-14 23:45] LABS: Alveolar/Arterial O2 Gradient 53.2 mmHg; Base Excess ABG -9.5 mEq/l (+/-2.0); Fractional Inspired Oxygen 21 %; HCO3 ABG 15.1 mEq/l (22.0-26.0); Oxygen Content ABG 11.5 %vol (16.0-22.0); Oxygen Saturation ABG 91.1 % (95.0-100.0); Oxyhemoglobin 88.4 % THb (90.0-100.0); PCO2 ABG 28.5 mmHg (35.0-45.0); PO2 ABG 62.4 mmHg (80.0-100.0); PO2 FiO2 Ratio Arterial Blood 2.97 %; Total Hemoglobin 9.2 g/dL (12.0-18.0); pH ABG 7.342 (7.350-7.450)
[2023-12-14 23:46] LABS: Modified Allen's Test Pass; Site Drawn LEFT RADIAL
--- NOTE | 2023-12-14 23:50 | ED.GENADULT ---
HPI - General Adult General Chief complaint: Unspecified Stated complaint: SICKLE CELL CRISIS/PAIN ALL OVER Time Seen by Provider: 12/14/23 22:21 History of Present Illness HPI narrative: This is a 38-year-old male with history of sickle cell disease presenting with pain all over his body. Patient was discharged from our hospital on 12/11. At that time the patient said he was feeling well but then he spent the day out in the heat and got caught in the rain and developed his typical pain crisis with pain in his chest, back, across his ribs and his abdomen. He also developed chills, nausea. Patient denies vomiting or diarrhea. Patient's typical pain regimen his methadone 10 mg t.i.d.. Oxycodone 10 mg p.r.n.. Patient says he has not taken any medications since he was discharged. Related Data Home Medications Medication Instructions Recorded Confirmed folic acid 1 mg tablet 1 mg PO DAILY 02/16/19 12/08/23 methadone 10 mg tablet 10 mg PO TID 08/22/20 12/08/23 oxycodone-acetaminophen 10 mg-325 1 tablet PO BID PRN Pain, Moderate 08/22/20 12/08/23 mg tablet ibuprofen 800 mg tablet 800 mg PO PRN 12/30/22 12/08/23 warfarin 10 mg tablet 10 mg PO HS 06/22/23 12/08/23 Allergies Allergy/AdvReac Type Severity Reaction Status Date / Time Fish Containing Products Allergy Mild Itching Verified 12/07/23 16:04 [facility] Past Medical History Medical History Acute chest syndrome Chronic anticoagulation Due to history of DVT and pulmonary embolism. Chronic narcotic use On methadone with oxycodone for chronic pain related to sickle cell disease. 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 Deep venous thrombosis Noncompliance History of noncompliance with anticoagulation and hydroxyurea. Pulmonary embolism Sickle cell disease, type [place] Surgical History Surgical History History of hand surgery Tendon surgery on right 5th finger. Family History Family History Grandparent Diabetes mellitus Acute myocardial infarction Sibling Asthma Sibling Asthma Mother Hypertension Sickle cell trait Son Sickle cell trait Daughter Sickle cell trait Grandparent No problems noted. Other Diabetes mellitus Father Sickle cell trait Social History Social History (Updated 12/08/23 @ 17:59 by Zahraa Birch PA-C) Social History: The patient lives in [place] with his family. He is on disability due to sickle cell disease and chronic pain. He is a lifelong nonsmoker and denies alcohol and illicit substance abuse. He uses marijuana to help with pain, states this happens 1-2x per year. He designates Jolly Zuniga (mother) or Keyla Luther (friend) as his surrogate decision makers and he wishes to be a full code. Smoking status: Never smoker Second hand tobacco smoke exposure: No Additional smoking assessment comments: Smokes marijuana when pain meds unavailable. Alcohol intake: never Substance use: never Substance use type: marijuana Other substance usage details: For back when he doesn't have any pain meds available. Last use: 12/28/22 Do You Feel Safe in your Home?: Yes Lack of Transportation: No Lack of Food: Never True Current Housing: I Have Housing Concerned About Future Housing: No Difficulty Paying Gas/Electric Bills: No Difficulty Paying for Meds: No Currently Unemployed: No Education: Associate Degree Difficulty w/ Childcare or Family Care: No Living arrangements: with family Occupation/Education: other Spiritual care concerns: No Agree to blood products: Yes Exam Narrative: APPEARANCE: Patient appears ill, he is diaphoretic Head: atraumatic. EYES: EOMI, NOSE: Atraumatic NECK: Trachea midline RESPIRATORY: Tachypneic, scattered rhonchi in the bases CARDIOVASCULAR: Tachycardic, no peripheral edema ABDOMINAL: Diffusely tender, worse in the right upper quadrant MUSCULOSKELETAl: No obvious deformities NEURO: Alert. Moving 4/4 extremities SKIN:: Cool clammy and diaphoretic PSYCHIATRIC: Normal affect Course Vital Signs Vital signs: Vital Signs Temperature 101.0 F H 12/14/23 22:12 Pulse Rate 139 H 12/14/23 22:12 Respiratory Rate 28 H 12/14/23 22:12 Blood Pressure 131/109 H 12/14/23 22:12 Pulse Oximetry 94 12/14/23 22:12 Oxygen Delivery Room Air 12/14/23 22:12 Temperature 99.1 F 12/15/23 04:09 Pulse Rate 123 H 12/15/23 04:09 Respiratory Rate 32 H 12/15/23 04:09 Blood Pressure 114/76 12/15/23 04:09 Pulse Oximetry 93 12/15/23 04:09 Oxygen Delivery Room Air 12/14/23 22:12 Medical Decision Making MDM Narrative Medical decision making narrative: -Course: 38-year-old male with sickle cell bouncing back to the hospital after recent discharge. On arrival patient is ill-appearing, tachycardic, soft blood pressures and febrile. Full sepsis workup ordered. Patient given 30 cc/kilogram bolus and started on broad-spectrum antibiotics while we await results of his workup. CT chest abdomen pelvis showed multiple consolidations and probable atelectasis in the lungs. Gallbladder distended with gallstones but without any overt inflammatory changes. Patient has had significant increase in his bilirubin and liver enzymes continue to uptrend. Right upper quadrant ultrasound ordered to evaluate for cholecystitis. During stay the patient became diaphoretic was found to be hypoglycemic. He required 2 amps of D50. Q 1 hour glucose checks been added. Patient will be admitted to the ICU for further management. -DDX includes but is not limited to: Acute chest syndrome, pneumonia, sepsis, cholecystitis, acute pain crisis -Co-morbidities complicating care: Sickle cell disease -External Chart Review: Review of discharge summary -Independent interpretation of studies: White count 24.7, initial lactic 9.8 which cleared 8.4 after 30 cc/kilogram bolus Hemoglobin 10.5. Retic 2.9% Creatinine is 2.3 from a baseline of .8 on 12/11. Bilirubin uptrending from 3.8 -> 6.0. Liver enzymes also increasing. Troponin .016 -> .047 Independent EKG interpretation: Rhythm sinus tachycardia, Rate [120], [place] -[normal], [place] -[normal], QRS [narrow], QTC [normal], T waves -diffuse T-wave inversions, ST Segments - [Negative for concerning elevations] Final interpretations: Sinus tachycardia with diffuse T-wave abnormalities -Discussion of Management/Consultants: Eric Varela Chung -Interventions: 4 L lactated Ringer's, Pip/tazo, Doxycycline, vancomycin, magnesium, Dilaudid 2mg x2, tylenol, D50 x2 -Shared decision making / Disposition: ICU Vital Signs Vital Signs: Vital Signs Temperature 101.0 F H 12/14/23 22:12 Pulse Rate 139 H 12/14/23 22:12 Respiratory Rate 28 H 12/14/23 22:12 Blood Pressure 131/109 H 12/14/23 22:12 Pulse Oximetry 94 12/14/23 22:12 Oxygen Delivery Room Air 12/14/23 22:12 Temperature 99.1 F 12/15/23 04:09 Pulse Rate 123 H 12/15/23 04:09 Respiratory Rate 32 H 12/15/23 04:09 Blood Pressure 114/76 12/15/23 04:09 Pulse Oximetry 93 12/15/23 04:09 Oxygen Delivery Room Air 12/14/23 22:12 Lab Data 12/14/23 22:28 12/15/23 04:15 Labs: Lab Results 12/14/23 12/14/23 12/15/23 Range/Units 22:28 22:31 02:25 WBC 24.7 H (4.5-10.0) K/mm3 RBC 3.27 L (4.6-6.20) M/mm3 Hgb 10.5 L (14.0-18.0) g/dL Hct 29.6 L (42.0-52.0) % MCV 90.5 (80-100) fl MCH 32.1 (26-34) pg MCHC 35.5 (32-36) g/dl RDW 14.8 H (11.5-14.5) % Plt Count 161 (150-375) k/mm3 MPV 10.9 H (7.4-10.4) fl Immature Gran % (Auto) Not Reportable Neut % (Auto) Not Reportable Lymph % (Auto) Not Reportable [place] % (Auto) Not Reportable Eos % (Auto) Not Reportable Baso % (Auto) Not Reportable Lymph # (Auto) Not Reportable [place] # (Auto) Not Reportable Eos # (Auto) Not Reportable Baso # (Auto) Not Reportable Abs Immat Gran (auto) Not Reportable Absolute Neuts (auto) Not Reportable Absolute Nucleated RBC Not Reportable Total Counted 100 Neutrophils % (Manual) 79 H (46-73) % Band Neutrophils % 15 H (0-6) % Lymphocytes % (Manual) 3.0 L (18-44) % Monocytes % (Manual) 3 (3-9) % Nucleated RBC % Not Reportable Abs Neuts (Manual) 23.21 H (1.3-6.7) K/mm3 Abs Lymphs (Manual) 0.74 L (1.1-4.5) K/mm3 Abs Monocytes (Manual) 0.74 (0.1-0.90) K/mm3 Platelet Estimate Adequate (Adequate) Target Cells 1+ Schistocytes None seen Absolute Retic 0.10 (0.02-0.10) 10^6/uL Percent Retic 2.90 (0.7-4.3) % Immature Retic Fraction 20.8 H (3.0-15.9) % Retic Hgb Content 26.8 L (28.2-36.6) pg PT 32.4 H (11.1-14.7) Seconds INR 3.1 APTT 63.0 H (22.3-36.8) Seconds Sodium 140 (137-145) mmol/L Potassium 3.7 (3.4-5.0) mmol/L Chloride 104 (98-107) mmol/L Carbon Dioxide 13 L (22-30) mmol/L Anion Gap 23 H (4-12) mmol/L BUN 21 H D (9-20) mg/dL Creatinine 1.80 H (0.7-1.3) mg/dL Estim Creat Clear Calc 59 ml/min Estimated GFR 51 L (59 - ) Glucose 150 H (65-110) mg/dL POC Capillary Glucose 141 H (65-105) mg/dl Lactic Acid 9.8 H* 8.4 H* (0.7-2.0) mmol/L Calcium 8.9 (8.4-10.2) mg/dL Phosphorus 2.8 (2.5-4.5) mg/dL Magnesium 1.5 L (1.6-2.3) mg/dL Total Bilirubin 3.8 H (0.2-1.3) mg/dL AST 123 H (17-59) U/L ALT 44 (6-50) U/L Alkaline Phosphatase 104 (38-126) U/L Troponin I 0.016 0.047 H* D (0.000-0.034) ng/mL NT-Pro-B Natriuret Pep 3050 H (19.9-100) pg/mL Total Protein 8.0 (6.3-8.2) g/dL Albumin 4.4 (3.5-5.1) g/dL Lipase 89 (23-300) U/L TSH (Reflex) 0.209 L (0.465-4.68) uIU/mL Free T4 1.67 (0.78-2.19) ng/dL Total T3 0.67 L (0.97-1.69) NG/ML Urine Color Yellow (Yellow) Urine Appearance Clear (Clear) Urine pH 5.5 (5.0-9.0) Ur Specific [place] 1.010 (1.001-1.035) Urine Protein 2+ H (Negative) mg/dL Urine Glucose (UA) Negative (Negative) mg/dL Urine Ketones Trace H (Negative) mg/dL Ur Blood (Man) 2+ H (Negative) Urine Nitrate Negative (Negative) Urine Bilirubin 1+ H (Negative) Urine Urobilinogen 2.0 H (<2.0) mg/dL Add Ur Microanalysis Reviewed Leukocyte Esterase Rfl Negative (Negative) NANDO/UL Urine RBC 0-2 (0-2) /hpf Urine WBC 0-5 (0-3) /hpf Ur Squamous Epith Cells Occasional (Few) /hpf Urine Bacteria None seen /hpf Urine Casts 11-20 12/15/23 Range/Units 04:15 WBC (4.5-10.0) K/mm3 RBC (4.6-6.20) M/mm3 Hgb (14.0-18.0) g/dL Hct (42.0-52.0) % MCV (80-100) fl MCH (26-34) pg MCHC (32-36) g/dl RDW (11.5-14.5) % Plt Count (150-375) k/mm3 MPV (7.4-10.4) fl Immature Gran % (Auto) Neut % (Auto) Lymph % (Auto) [place] % (Auto) Eos % (Auto) Baso % (Auto) Lymph # (Auto) [place] # (Auto) Eos # (Auto) Baso # (Auto) Abs Immat Gran (auto) Absolute Neuts (auto) Absolute Nucleated RBC Total Counted Neutrophils % (Manual) (46-73) % Band Neutrophils % (0-6) % Lymphocytes % (Manual) (18-44) % Monocytes % (Manual) (3-9) % Nucleated RBC % Abs Neuts (Manual) (1.3-6.7) K/mm3 Abs Lymphs (Manual) (1.1-4.5) K/mm3 Abs Monocytes (Manual) (0.1-0.90) K/mm3 Platelet Estimate (Adequate) Target Cells Schistocytes Absolute Retic (0.02-0.10) 10^6/uL Percent Retic (0.7-4.3) % Immature Retic Fraction (3.0-15.9) % Retic Hgb Content (28.2-36.6) pg PT (11.1-14.7) Seconds INR APTT (22.3-36.8) Seconds Sodium 140 (137-145) mmol/L Potassium 4.6 (3.4-5.0) mmol/L Chloride 105 (98-107) mmol/L Carbon Dioxide 11 L (22-30) mmol/L Anion Gap 24 H (4-12) mmol/L BUN 24 H (9-20) mg/dL Creatinine 2.30 H (0.7-1.3) mg/dL Estim Creat Clear Calc 46 ml/min Estimated GFR 38 L (59 - ) Glucose 46 L* (65-110) mg/dL POC Capillary Glucose (65-105) mg/dl Lactic Acid (0.7-2.0) mmol/L Calcium 7.8 L (8.4-10.2) mg/dL Phosphorus (2.5-4.5) mg/dL Magnesium (1.6-2.3) mg/dL Total Bilirubin 6.0 H (0.2-1.3) mg/dL AST 229 H (17-59) U/L ALT 55 H (6-50) U/L Alkaline Phosphatase 136 H (38-126) U/L Troponin I (0.000-0.034) ng/mL NT-Pro-B Natriuret Pep (19.9-100) pg/mL Total Protein 7.0 (6.3-8.2) g/dL Albumin 3.7 (3.5-5.1) g/dL Lipase (23-300) U/L TSH (Reflex) (0.465-4.68) uIU/mL Free T4 (0.78-2.19) ng/dL Total T3 (0.97-1.69) NG/ML Urine Color (Yellow) Urine Appearance (Clear) Urine pH (5.0-9.0) Ur Specific [place] (1.001-1.035) Urine Protein (Negative) mg/dL Urine Glucose (UA) (Negative) mg/dL Urine Ketones (Negative) mg/dL Ur Blood (Man) (Negative) Urine Nitrate (Negative) Urine Bilirubin (Negative) Urine Urobilinogen (<2.0) mg/dL Add Ur Microanalysis Leukocyte Esterase Rfl (Negative) NANDO/UL Urine RBC (0-2) /hpf Urine WBC (0-3) /hpf Ur Squamous Epith Cells (Few) /hpf Urine Bacteria /hpf Urine Casts ABG Data ABG results: 12/14/23 23:30 Puncture Site Left radial ABG pH 7.342 L ABG pCO2 28.5 L ABG pO2 62.4 L ABG PO2/FiO2 Ratio 2.97 ABG HCO3 15.1 L ABG O2 Saturation 91.1 L ABG O2 Content 11.5 L ABG Base Excess -9.5 A-a Gradient 53.2 Oxyhemoglobin 88.4 L Total Hemoglobin 9.2 L O2 Delivery Device Not Reportable O2 Liters/Min Not Reportable FiO2 21 Critical Care Time Critical Care Time Critical Care Time: Yes Total Critical Care Time: 75 Discharge Plan Discharge Clinical Impression: Sepsis, Pneumonia, Sickle cell anemia, Acidosis, lactic, Elevated troponin, Elevated liver enzymes Patient Disposition: Still a Patient Condition: Critical Prescriptions: No Action folic acid 1 mg Tablet 1 mg PO DAILY methadone 10 mg tablet 10 mg PO TID Rx Instructions: 0900, 1700, 2100 oxycodone-acetaminophen 10-325 mg tablet 1 tablet PO BID PRN (Reason: Pain, Moderate) hydroxyurea 500 mg Capsule 500 mg PO QAM Qty: 30 0RF ibuprofen 800 mg tablet 800 mg PO PRN warfarin 10 mg tablet 10 mg PO HS Patient Comments: Takes with 2mg tablet for dose of 12mg warfarin 5 mg tablet 5 mg PO DAILY Qty: 30 0RF Rx Instructions: take in addition to the 10 mg for a total of 15 mg. Follow-up/Referrals: Jone Marks MD [Primary Care Provider] -
[2023-12-14 23:54] LABS: INR 3.1; Prothrombin Time 32.4 Seconds (11.1-14.7)
[2023-12-15] VITALS (21 sets, daily range): BP systolic 114–136; BP diastolic 53–88; PULSE 105–135; RESP 15–32; TEMP 36.6–37.8; O2SAT 89–100; BMI 30.7
[2023-12-15 00:07] LABS: Free T4 Free Thyroxine Reflex 1.67 ng/dL (0.78-2.19)
--- NOTE | 2023-12-15 00:10 | PC.NURSE ---
Patient taken to CT via stretcher while on tele at this time.
[2023-12-15] MEDS: MAGNESIUM SULF 2 GM/WATER 50ML 2 GM/50 ML BAG IVPB (00:55)
[2023-12-15 00:57] LABS: Total Triiodothyronine (T3) 0.67 NG/ML (0.97-1.69)
[2023-12-15] MEDS: VANCOMYCIN 2,000 MG/NS 500 ML 2,000 MG/500 ML BAG 250 MG IVPB (01:00)
[2023-12-15] MEDS: ACETAMINOPHEN 500 MG TABLET 1000 MG PO (01:06)
[2023-12-15 01:33] LABS: Reflex Lactic Acid Yes or No Add Lactic
[2023-12-15 02:38] LABS: Add Urine Microscopic? YES; Appearance Urine Clear (Clear); Color Urine Yellow (Yellow); Glucose Urine UA Negative (Negative); Protein Urine 2+ mg/dL (Negative); pH Urine 5.5 (5.0-9.0)
[2023-12-15 02:39] LABS: Bilirubin Urine 1+ (Negative); Blood Urine 2+ (Negative); Ketones Urine Trace mg/dL (Negative); Leukocyte Esterase Ur Negative LEU/UL (Negative); Nitrate Urine Negative (Negative)
[2023-12-15 02:47] LABS: Lactic Acid 8.4 mmol/L (0.7-2.0)
[2023-12-15 02:50] LABS: Bacteria Urine None Seen /hpf; Need Manual Microscopic Reviewed; RBC Urine 0-2 /hpf (0-2); Squamous Epithelial Cell Urine Occasional /hpf (Few); WBC Urine 0-5 /hpf (0-3)
[2023-12-15 02:59] LABS: Troponin I 0.047 ng/mL (0.000-0.034)
--- NOTE | 2023-12-15 04:18 | ECG_ITS ---
Test Date: 2023-12-15 04:23:14 Measurements Intervals [place] Rate: 120 P: 32 OK: 169 QRS: 19 QRSD: 94 T: -5 QT: 419 QTc: 593 Interpretive Statements SINUS TACHYCARDIA MODERATE ST-T WAVE ABNORMALITY, CONSIDER ANTEROLATERAL ISCHEMIA MODERATE ST-T WAVE ABNORMALITY, CONSIDER INFERIOR ISCHEMIA ABNORMAL ECG Compared to ECG 12/14/2023 22:18:48 No significant changes Electronically Signed On 12-15-2023 07:49:06 CDT by Ricky Modi D.O.
[2023-12-15] MEDS: SODIUM CHLORIDE 0.9% IV 1,000 ML 999 ML IV CONT (04:23)
[2023-12-15 04:39] LABS: Albumin Level 3.7 g/dL (3.5-5.1); Alkaline Phosphatase 136 U/L (38-126); Anion Gap 24 mmol/L (4-12); Aspartate Amino Transferase 229 U/L (17-59); Blood Urea Nitrogen 24 mg/dL (9-20); Calcium 7.8 mg/dL (8.4-10.2); Carbon Dioxide 11 mmol/L (22-30); Chloride 105 mmol/L (98-107); Estimated CRCL calculation 46 ml/min; Estimated Glomerular Filt Rate 38; Glucose 46 mg/dL (65-110); Potassium 4.6 mmol/L (3.4-5.0); Sodium 140 mmol/L (137-145)
[2023-12-15 04:42] LABS: Alanine Aminotransferase 55 U/L (6-50)
[2023-12-15] MEDS: DEXTROSE 50% 25 GM/50 ML SYRINGE IV PUSH ×4 (04:44→15:07)
[2023-12-15] MEDS: KETOROLAC 30 MG/ML VIAL (*BKC) (04:44)
[2023-12-15 05:08] LABS: Glucose Point of Care < 20 mg/dl (65-105)
--- NOTE | 2023-12-15 05:13 | PC.NURSE ---
This Rn checked pt bedside glucose and it resulted as 11. Dr. Todd notified. Rn gave pt crackers and ornage juice along with a IV push of dextrose.
[2023-12-15 05:20] LABS: Glucose Point of Care 131 mg/dl (65-105)
[2023-12-15 05:44] LABS: Glucose Point of Care 140 mg/dl (65-105)
--- NOTE | 2023-12-15 05:53 | P.HP_ITS ---
H&P: HPI History of Present Illness Date/Time: 12/15/23 05:53 Chief Complaint: Sickle cell pain all over Narrative: This 38-year-old male patient with past medical history sickle cell disease, prior DVT, prior PE on chronic anticoagulation with Eliquis, smoker marijuana, medication noncompliance and who is treated for his sickle cell with methadone an oxy: Known by Dr. Marks, presented to the emergency room last evening with complaints of having pain all over and believing he was in crisis and was subsequently admitted to ICU this morning with lactic acidosis. Patient was recently hospitalized here at this facility for sickle cell crisis and discharged home on December 12, 2023. He stated that overall he felt well and then he spent the day outside in the heat and then got caught in the rain. He believes that this is what started him to have pain all over and crisis symptoms. Pain is worse in the chest, the back, the ribs, the abdomen specifically on the right side and he has reported chills and nausea. He denies any vomiting or diarrhea. His last bowel movement was today and is normal. Upon initial presentation to the emergency room patient was tachycardic, tachypneic, hypertensive. Patient was worked up in the emergency room and was found to have labs significant for leukocytosis at 24.7 with 15% bandemia, H&H of 10.5 and 29.6, platelets 161, reticulocyte count of 26.8, metabolic panel significant for impaired renal function with creatinine of 2.3 and BUN of 24, lactic acid initially was 9.8 and after receiving IV fluids at decreased to 8.4. Patient's bilirubin initially was 3.8 on recheck was 6.0 with transaminitis that was not previously present. Troponin is 0.047, BNP is 3050, ABG showing a pH of 7.342, pCO2 of 28.5, PO2 of 62.4 and HC03 of 15.1. Imaging was performed and interpreted by the Emergency Room physician. CT the chest abdomen and pelvis in his opinion showed multiple consolidation and probable atelectasis in the lungs. The gallbladder appeared distended with gallstones but without any overt inflammatory changes. As the patient had a significant increase in his bilirubin and transaminases continuing to trend upward even since he has been here patient was ordered a right upper quadrant ultrasound and general surgery is consulted. Patient had episode of hypoglycemia, symptomatic with diaphoresis. He required 2 amps of D50. Patient started on q.1 hour glucose checks and admitted to ICU. He did have antibiotics of vancomycin, Zosyn, doxycycline started in emergency room as well as Dilaudid for pain. ER physician discussed the patient with order editor who agrees to admit at this time. Review of Systems Review of Systems: All systems reviewed & are unremarkable except as noted in HPI and below PMFSH Past Medical History Medical History (Updated 12/15/23 @ 06:05 by RUBY Yang) Acute chest syndrome Acute kidney injury Chronic anticoagulation Due to history of DVT and pulmonary embolism. Chronic narcotic use On methadone with oxycodone for chronic pain related to sickle cell disease. 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 Deep venous thrombosis Noncompliance History of noncompliance with anticoagulation and hydroxyurea. Pulmonary embolism Sickle cell disease, type SC Surgical History Surgical History History of hand surgery Tendon surgery on right 5th finger. Family History Family History Grandparent Diabetes mellitus Acute myocardial infarction Sibling Asthma Sibling Asthma Mother Hypertension Sickle cell trait Son Sickle cell trait Daughter Sickle cell trait Grandparent No problems noted. Other Diabetes mellitus Father Sickle cell trait Social History Social History Social History: The patient lives in [place] with his family. He is on disability due to sickle cell disease and chronic pain. He is a lifelong nonsmoker and denies alcohol and illicit substance abuse. He uses marijuana to help with pain, states this happens 1-2x per year. He designates Jollylana Serranoiam (mother) or Keyla Luther (friend) as his surrogate decision makers and he wishes to be a full code. Smoking status: Never smoker Second hand tobacco smoke exposure: No Additional smoking assessment comments: Smokes marijuana when pain meds unavailable. Alcohol intake: never Substance use: never Substance use type: marijuana Other substance usage details: For back when he doesn't have any pain meds available. Last use: 12/28/22 Do You Feel Safe in your Home?: Yes Lack of Transportation: No Lack of Food: Never True Current Housing: I Have Housing Concerned About Future Housing: No Difficulty Paying Gas/Electric Bills: No Difficulty Paying for Meds: No Currently Unemployed: No Education: High School Diploma/GED Difficulty w/ Childcare or Family Care: No Living arrangements: with family Occupation/Education: other Spiritual care concerns: No Agree to blood products: Yes Meds Home Medications and Allergies Home Medications Medication Instructions Recorded Confirmed Type folic acid 1 mg tablet 1 mg PO DAILY 02/16/19 12/15/23 History methadone 10 mg tablet 10 mg PO TID 08/22/20 12/15/23 History oxycodone-acetaminophen 10 mg-325 1 tablet PO BID PRN Pain, Moderate 08/22/20 12/15/23 History mg tablet hydroxyurea 500 mg capsule 500 mg PO QAM #30 caps 11/23/21 12/15/23 Rx ibuprofen 800 mg tablet 800 mg PO PRN 12/30/22 12/15/23 History warfarin 10 mg tablet 10 mg PO HS 06/22/23 12/15/23 History warfarin 2 mg tablet 4 mg DAILY 12/15/23 12/15/23 History Allergies Allergy/AdvReac Type Severity Reaction Status Date / Time Fish Containing Products Allergy Mild Itching Verified 12/07/23 16:04 Vital Signs Vital Signs - 24 hr 12/14/23 22:12 12/14/23 22:23 12/14/23 22:55 Temperature 101.0 F H Pulse Rate 139 H 123 H Respiratory Rate 28 H 28 H 30 H Blood Pressure 131/109 H 105/84 Pulse Oximetry 94 94 96 Oxygen Delivery Room Air 12/14/23 23:18 12/15/23 00:48 12/15/23 00:54 Temperature 99.6 F 100.1 F H Pulse Rate 121 H 125 H Respiratory Rate 34 H 25 H Blood Pressure 109/53 L 117/67 Pulse Oximetry 93 96 Oxygen Delivery 12/15/23 03:01 12/15/23 04:09 12/15/23 05:16 Temperature 99.1 F Pulse Rate 135 H 123 H 123 H Respiratory Rate 31 H 32 H 18 Blood Pressure 115/53 L 114/76 117/65 Pulse Oximetry 94 93 95 Oxygen Delivery Exam Narrative: Constitutional: Pleasant, , male patient lying supine the stretcher at this time in no acute distress. HEENT: Head is atraumatic normocephalic. Patient has dry mucous membranes. Posterior oropharynx is patent. Eyes: PERRLA without scleral icterus. There is no discharge from eyes. Neck: Full active range of motion is supplemented. No JVD or lymphadenopathy. Respiratory: Diminished bases bilaterally. Cardio: Tachycardia with S1 and S2 present. No S3, S4, murmur, rub, gallop, heave, displacement of PMI or peripheral edema. GI: Soft, tender to palpation in general pattern, however patient notes that it is worse on the right upper quadrant. Bowel sounds present x4 quadrants. There is no rebound. There is voluntary guarding. : Deferred Skin: Warm, moist without lesions. Neuro: No focal deficits. Extremities: Freely and equally moves all extremities well and fully without deficits. No peripheral edema. Psych: Appropriate affect and mood. H&P: Results Labs Labs: Short CBC 12/14/23 Range/Units 22:28 WBC 24.7 H (4.5-10.0) K/mm3 Hgb 10.5 L (14.0-18.0) g/dL Hct 29.6 L (42.0-52.0) % Plt Count 161 (150-375) k/mm3 BMP 12/14/23 12/15/23 22:28 04:15 Sodium 140 140 Potassium 3.7 4.6 Chloride 104 105 Carbon Dioxide 13 L 11 L BUN 21 H D 24 H Creatinine 1.80 H 2.30 H Glucose 150 H 46 L* Calcium 8.9 7.8 L Cardiac Enzymes 12/14/23 12/15/23 Range/Units 22:28 02:25 Troponin I 0.016 0.047 H* D (0.000-0.034) ng/mL Liver Function 12/14/23 12/15/23 Range/Units 22:28 04:15 Total Bilirubin 3.8 H 6.0 H (0.2-1.3) mg/dL AST 123 H 229 H (17-59) U/L ALT 44 55 H (6-50) U/L Alkaline Phosphatase 104 136 H (38-126) U/L Albumin 4.4 3.7 (3.5-5.1) g/dL Urine 12/15/23 Range/Units 02:25 Urine Color Yellow (Yellow) Urine Appearance Clear (Clear) Urine pH 5.5 (5.0-9.0) Ur Specific [place] 1.010 (1.001-1.035) Urine Protein 2+ H (Negative) mg/dL Urine Glucose (UA) Negative (Negative) mg/dL Assessment and Plan Assessment and plan (1) Sepsis: Code(s): A41.9 - Sepsis, unspecified organism Status: Acute Assessment and Plan: * Patient meets sepsis criteria by presentation of vital signs, lactic acidosis and bandemia. * Blood cultures pending. * Continue vancomycin, Zosyn, doxycycline * Continue to trend labs and vital signs. * Most likely source respiratory versus cholecystitis versus choledocholithiasis versus sickle cell crisis (2) Pneumonia: Code(s): J18.9 - Pneumonia, unspecified organism Status: Acute Assessment and Plan: * As visualized by emergency room provider. * Pending final read official imaging. * Continue antibiotics of vancomycin, doxycycline and Zosyn. * Supportive care (3) Sickle cell anemia: Code(s): D57.1 - Sickle-cell disease without crisis Status: Chronic Assessment and Plan: * Chronic anemia but stable at this time with hemoglobin and hematocrit at 10.5 and 29.6 * Continue to trend CBCs. (4) Acidosis, lactic: Code(s): E87.20 - Acidosis, unspecified Status: Acute Assessment and Plan: * Remarkably elevated lactic acid upon arrival at 9.8, trending down to 8.4. * Continue IV fluids * Continue to trend lactic acid. (5) Elevated troponin: Code(s): R79.89 - Other specified abnormal findings of blood chemistry Status: Acute Assessment and Plan: * Suspect demand ischemia. * Patient to be anticoagulated with Lovenox 1 milligram/kilogram. * Telemetry * Continue to trend troponins * P.r.n. pain medication. (6) Elevated liver enzymes: Code(s): R74.8 - Abnormal levels of other serum enzymes Status: Acute Assessment and Plan: * Acutely elevated with increasing bilirubin from 3.8-6.0 during the time patient was in the emergency room. * Patient also with increasing transaminases. * CT abdomen and pelvis appreciated cholelithiasis without any overt cholecystitis. * General surgery is consulted. * Continue to trend labs. * Right upper quadrant ultrasound is ordered. (7) Sickle cell pain crisis: Code(s): D57.00 - Hb-SS disease with crisis, unspecified Status: Acute Assessment and Plan: * Retic count 26.8. However remainder of physical exam is consistent with sickle cell crisis. * Continue pain medications of Dilaudid. * Monitor CBC and retic count. (8) Acute kidney injury: Code(s): N17.9 - Acute kidney failure, unspecified Status: Acute Assessment and Plan: * Likely due to sickle cell versus dehydration * Continue IV fluids of normal saline at 100 mL/hour. * Continue to trend labs and vital signs. Quality VTE Prophylaxis VTE prophylaxis: pharmacologic ordered Hospitalist [facility] Advance Care Plan I have confirmed that the patient's Advanced Care Plan is present, code status is documented, or surrogate decision maker is listed in patient medical record.: Yes Medication Reconciliation I have utilized all available resources to obtain, update and review the patients current medications (includes all prescriptions, OTC, herbals, cannabis, and nutritional supplements).: Yes
[2023-12-15] MEDS: PIPERACILLN/TAZ 3.375GM/NS50ML 3.375 GM/50 ML BAG IVPB ×3 (06:21→17:39)
[2023-12-15] MEDS: SODIUM CHLORIDE 0.9% IV 1,000 ML 100 ML IV CONT (06:23)
[2023-12-15] MEDS: HYDROmorphone HCL INJ (*CRX) 1 MG/ML SYR IV PUSH (06:25)
[2023-12-15] MEDS: ONDANSETRON INJ 4 MG/2 ML VIAL IV PUSH (06:26)
[2023-12-15] MEDS: ENOXAPARIN 100 MG/ML SYRINGE 97 MG SUB-Q (06:26)
[2023-12-15 07:02] LABS: Estimated CRCL calculation 44 ml/min; Estimated Glomerular Filt Rate 37
[2023-12-15 07:15] LABS: Lactic Acid Reflex 11.8 mmol/L (0.7-2.0)
[2023-12-15 07:50] LABS: MRSA (PCR) NOT DETECTED (NOT DETECTE)
[2023-12-15] MEDS: LACTATED RINGERS 1,000 ML 999 ML IV CONT (08:32)
[2023-12-15] MEDS: SODIUM BICARBONATE 8.4% 50 MEQ/50 ML SYRINGE IV PUSH ×2 (08:40→15:07)
[2023-12-15 08:52] LABS: Amphetamine Screen Urine Negative (Negative); Barbiturate Screen Urine Negative (Negative); Benzodiazepines Screen Urine Negative (Negative); Cannabinoid Screen Urine Negative (Negative); Cocaine Screen Urine Negative (Negative); Methadone Screen Urine Positive (Negative); Opiate Screen Urine Positive (Negative); Phencyclidine Screen Urine Negative (Negative)
--- NOTE | 2023-12-15 08:58 | P.PNIM_ITS ---
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 Marks, presented to the emergency room last evening with complaints of having pain all over and believing he was in crisis and was subsequently admitted to ICU this morning with lactic acidosis. Patient was recently hospitalized here at this facility for sickle cell crisis and discharged home on December 12, 2023. (1) Sepsis: Code(s): A41.9 - Sepsis, unspecified organism Status: Acute Assessment and Plan: * Patient meets sepsis criteria by presentation of vital signs, lactic acidosis and bandemia. * Blood cultures pending. * Continue vancomycin, Zosyn, doxycycline * Continue to trend labs and vital signs. * Most likely source respiratory versus cholecystitis versus choledocholithiasis versus sickle cell crisis(2) Pneumonia: Code(s): J18.9 - Pneumonia, unspecified organism Status: Acute Assessment and Plan: * As visualized by emergency room provider. * Pending final read official imaging. * Continue antibiotics of vancomycin, doxycycline and Zosyn. * Supportive care * (3) Sickle cell anemia: Code(s): D57.1 - Sickle-cell disease crisis Status: Chronic Assessment and Plan: Chronic anemia, upon arrival hemoglobin and hematocrit at 10.5 and 29.6 Hemoglobin dropped to 7.1 MONITOR HEMOGLOBIN Q.6 HOURS Transfuse p.r.n. (4) Acidosis, lactic: Code(s): E87.20 - Acidosis, unspecified Status: Acute Assessment and Plan: * Remarkably elevated lactic acid upon arrival at 9.8, trending down to 8.4. * Continue IV fluids * Continue to trend lactic acid. (5) Elevated troponin: Code(s): R79.89 - Other specified abnormal findings of blood chemistry Status: Acute Assessment and Plan: * Suspect demand ischemia. * Patient to be anticoagulated with Lovenox 1 milligram/kilogram. * Telemetry * Continue to trend troponins * P.r.n. pain medication (6) Elevated liver enzymes: Code(s): R74.8 - Abnormal levels of other serum enzymes Status: Acute Assessment and Plan: * Acutely elevated with increasing bilirubin from 3.8-6.0 during the time patient was in the emergency room. * Patient also with increasing transaminases. * CT abdomen and pelvis appreciated cholelithiasis without any overt cholecystitis. * General surgery is consulted. * Continue to trend labs. * Right upper quadrant ultrasound is ordered. (7) Sickle cell pain crisis: Code(s): D57.00 - Hb-SS disease with crisis, unspecified Status: Acute Assessment and Plan: * Retic count 26.8. However remainder of physical exam is consistent with sickle cell crisis. * Continue pain medications of Dilaudid. * Monitor CBC and retic count (8) Acute kidney injury: Code(s): N17.9 - Acute kidney failure, unspecified Status: Acute Assessment and Plan: * Likely due to sickle cell and dehydration * Continue IV fluids of normal saline at 100 mL/hour. * Continue to trend labs and vital signs. Patient condition is guarded, monitor patient closely in ICU Consult medical assistant supervisor, medical assistant supervisor called [facility], transfer patient to tertiary [facility] for management Subjective Date/time seen: 12/15/23 08:58 Interval history: Patient is afebrile overnight, has tachycardia tachypnea PI is blood pressure stable on pulse ox 100% room air. Patient still has whole body pain, shortness of breath, hemoglobin dropped sharply to 7.1 10.5 yesterday Exam Narrative: GENERAL: in no acute distress. Well-nourished. - EYES: EOMI. Anicteric. - HENT: Moist mucous membranes. - LUNGS: Clear to auscultation bilateral ly, no wheezing, rhonchi, or rales. - CARDIOVASCULAR: Regular rate and rhyth m. No murmur. No JVD. Tachycardia - ABDOMEN: Soft, non-tender and non-dist ended. No palpable masses. Tachypnea - EXTREMITIES: No edema. Peripheral puls es 2+. Non-tender. - NEUROLOGIC: No focal neurological defi cits. CN II-XII grossly intact. - PSYCHIATRIC: Awake, Alert and oriented x 3. Appropriate mood and affect. - SKIN: No rashes or lesions. Warm. - LYMPH: No cervical lymphadenopathy. Objective Data Vital Signs Vital Signs: Vital Signs - 24 hr 12/14/23 22:12 12/14/23 22:23 12/14/23 22:55 Temperature 101.0 F H Pulse Rate 139 H 123 H Respiratory Rate 28 H 28 H 30 H Blood Pressure 131/109 H 105/84 Pulse Oximetry 94 94 96 Oxygen Delivery Room Air Fraction of Inspired Oxygen 12/14/23 23:18 12/15/23 00:48 12/15/23 00:54 Temperature 99.6 F 100.1 F H Pulse Rate 121 H 125 H Respiratory Rate 34 H 25 H Blood Pressure 109/53 L 117/67 Pulse Oximetry 93 96 Oxygen Delivery Fraction of Inspired Oxygen 12/15/23 03:01 12/15/23 04:09 12/15/23 05:16 Temperature 99.1 F Pulse Rate 135 H 123 H 123 H Respiratory Rate 31 H 32 H 18 Blood Pressure 115/53 L 114/76 117/65 Pulse Oximetry 94 93 95 Oxygen Delivery Fraction of Inspired Oxygen 12/15/23 06:33 12/15/23 06:00 12/15/23 06:38 Temperature 98.1 F Pulse Rate 115 H 117 H Respiratory Rate 26 H Blood Pressure 116/70 Pulse Oximetry 96 Oxygen Delivery Fraction of Inspired Oxygen 12/15/23 07:50 12/15/23 08:00 Temperature 98.1 F Pulse Rate 110 H Respiratory Rate 20 Blood Pressure 120/79 Pulse Oximetry 100 100 Oxygen Delivery Room Air Fraction of Inspired Oxygen 21 Intake/Output Intake/Output: Intake & Output 12/12/23 12/13/23 12/14/23 12/15/23 23:59 23:59 23:59 23:59 Intake Total 50 4700 Output Total 400 Balance 50 4300 Meds/Results Medications: Active Medications Generic Name Dose Route Start Last Admin Trade Name Freq PRN Reason Stop Dose Admin Diphenhydramine HCl 25 mg 12/15/23 08:45 Diphenhydramine Hcl Inj 50 Mg/Ml Vial IV PUSH Q6H PRN Itching Enoxaparin Sodium 97 mg 12/15/23 06:00 12/15/23 06:26 Enoxaparin 100 Mg/Ml Syringe SUB-Q 97 mg Q24H CHRISTOPHER Administration Hydromorphone HCl 3 mg 12/15/23 08:45 Hydromorphone Hcl Inj (*Crx) 1 Mg/Ml Syr IV PUSH Q3H PRN Pain Rated 7-10 Doxycycline Hyclate 100 mg in 100 mls @ 100 mls/hr 12/15/23 09:00 Vibramycin 100 Mg/Ns 100 Ml IVPB Q12HR CHRISTOPHER Piperacillin/Tazobactam/Dextrose 3.375 gm in 50 mls @ 100 mls/hr 12/15/23 06:00 12/15/23 06:51 Zosyn 3.375 Gm/Ns 50 Ml IVPB Infused Q6HR CHRISTOPHER Infusion Sodium Bicarbonate 150 meq/ 1,100 mls @ 100 mls/hr 12/15/23 08:00 Dextrose IV CONT .Q11H CHRISTOPHER Ondansetron HCl 4 mg 12/15/23 06:08 12/15/23 06:26 Ondansetron Inj 4 Mg/2 Ml Vial IV PUSH 4 mg Q6H PRN Administration Nausea And Vomiting Vancomycin HCl 1 each 12/14/23 23:11 Vancomycin For Acute Kidney Injury IVPB PRN PRN Vancomycin Protocol Radiology Results: ITS Impressions Chest X-Ray 12/15/23 06:05 Impression: Left basilar atelectasis versus possibly pneumonia. Correlate clinically. Chest/Abdomen/Pelvis CT 12/15/23 06:06 Impression: There is bibasilar consolidation, left worse than right, most likely representing atelectasis/scarring, though pneumonia is not excluded. Correlate clinically. Questionable minimal heterogeneous enhancement of the kidneys. This is felt to be likely within normal limits, however correlation with urinalysis is recommended to assess for any possibility of pyelonephritis/UTI. Abdomen Ultrasound 12/15/23 08:41 Impression: Cholelithiasis. Minimal gallbladder wall thickening raises the possibility of superimposed acute cholecystitis. Correlate clinically. Consider HIDA scan as indicated. Labs Labs: Laboratory Results - last 24 hr 12/14/23 12/14/23 12/14/23 22:28 22:31 23:30 WBC 24.7 H RBC 3.27 L Hgb 10.5 L Hct 29.6 L MCV 90.5 MCH 32.1 MCHC 35.5 RDW 14.8 H Plt Count 161 MPV 10.9 H Immature Gran % (Auto) Not Reportable Neut % (Auto) Not Reportable Lymph % (Auto) Not Reportable Lynn % (Auto) Not Reportable Eos % (Auto) Not Reportable Baso % (Auto) Not Reportable Lymph # (Auto) Not Reportable Lynn # (Auto) Not Reportable Eos # (Auto) Not Reportable Baso # (Auto) Not Reportable Abs Immat Gran (auto) Not Reportable Absolute Neuts (auto) Not Reportable Absolute Nucleated RBC Not Reportable Total Counted 100 Neutrophils % (Manual) 79 H Band Neutrophils % 15 H Lymphocytes % (Manual) 3.0 L Monocytes % (Manual) 3 Nucleated RBC % Not Reportable Abs Neuts (Manual) 23.21 H Abs Lymphs (Manual) 0.74 L Abs Monocytes (Manual) 0.74 Platelet Estimate Adequate Target Cells 1+ Schistocytes None seen Absolute Retic 0.10 Percent Retic 2.90 Immature Retic Fraction 20.8 H Retic Hgb Content 26.8 L PT 32.4 H INR 3.1 APTT 63.0 H Puncture Site Left radial ABG pH 7.342 L ABG pCO2 28.5 L ABG pO2 62.4 L ABG PO2/FiO2 Ratio 2.97 ABG HCO3 15.1 L ABG O2 Saturation 91.1 L ABG O2 Content 11.5 L ABG Base Excess -9.5 A-a Gradient 53.2 Oxyhemoglobin 88.4 L Total Hemoglobin 9.2 L O2 Delivery Device Not Reportable O2 Liters/Min Not Reportable FiO2 21 Sodium 140 Potassium 3.7 Chloride 104 Carbon Dioxide 13 L Anion Gap 23 H BUN 21 H D Creatinine 1.80 H Estim Creat Clear Calc 59 Estimated GFR 51 L Glucose 150 H POC Capillary Glucose 141 H Lactic Acid 9.8 H* Calcium 8.9 Phosphorus 2.8 Magnesium 1.5 L Total Bilirubin 3.8 H AST 123 H ALT 44 Alkaline Phosphatase 104 Troponin I 0.016 NT-Pro-B Natriuret Pep 3050 H Total Protein 8.0 Albumin 4.4 Lipase 89 TSH (Reflex) 0.209 L Free T4 1.67 Total T3 0.67 L Urine Color Urine Appearance Urine pH Ur Specific Ruby Urine Protein Urine Glucose (UA) Urine Ketones Ur Blood (Man) Urine Nitrate Urine Bilirubin Urine Urobilinogen Add Ur Microanalysis Leukocyte Esterase Rfl Urine RBC Urine WBC Ur Squamous Epith Cells Urine Bacteria Urine Casts Nasal MRSA (PCR) Urine Opiates Screen Urine Methadone Screen Ur Barbiturates Screen Ur Phencyclidine Scrn Ur Amphetamine Screen U Benzodiazepines Scrn Urine Cocaine Screen U Cannabinoids Screen 12/15/23 12/15/23 12/15/23 02:25 02:30 04:15 WBC RBC Hgb Hct MCV MCH MCHC RDW Plt Count MPV Immature Gran % (Auto) Neut % (Auto) Lymph % (Auto) Lynn % (Auto) Eos % (Auto) Baso % (Auto) Lymph # (Auto) Lynn # (Auto) Eos # (Auto) Baso # (Auto) Abs Immat Gran (auto) Absolute Neuts (auto) Absolute Nucleated RBC Total Counted Neutrophils % (Manual) Band Neutrophils % Lymphocytes % (Manual) Monocytes % (Manual) Nucleated RBC % Abs Neuts (Manual) Abs Lymphs (Manual) Abs Monocytes (Manual) Platelet Estimate Target Cells Schistocytes Absolute Retic Percent Retic Immature Retic Fraction Retic Hgb Content PT INR APTT Puncture Site ABG pH ABG pCO2 ABG pO2 ABG PO2/FiO2 Ratio ABG HCO3 ABG O2 Saturation ABG O2 Content ABG Base Excess A-a Gradient Oxyhemoglobin Total Hemoglobin O2 Delivery Device O2 Liters/Min FiO2 Sodium 140 Potassium 4.6 Chloride 105 Carbon Dioxide 11 L Anion Gap 24 H BUN 24 H Creatinine 2.30 H Estim Creat Clear Calc 46 Estimated GFR 38 L Glucose 46 L* POC Capillary Glucose Lactic Acid 8.4 H* Calcium 7.8 L Phosphorus Magnesium Total Bilirubin 6.0 H AST 229 H ALT 55 H Alkaline Phosphatase 136 H Troponin I 0.047 H* D NT-Pro-B Natriuret Pep Total Protein 7.0 Albumin 3.7 Lipase TSH (Reflex) Free T4 Total T3 Urine Color Yellow Urine Appearance Clear Urine pH 5.5 Ur Specific Ruby 1.010 Urine Protein 2+ H Urine Glucose (UA) Negative Urine Ketones Trace H Ur Blood (Man) 2+ H Urine Nitrate Negative Urine Bilirubin 1+ H Urine Urobilinogen 2.0 H Add Ur Microanalysis Reviewed Leukocyte Esterase Rfl Negative Urine RBC 0-2 Urine WBC 0-5 Ur Squamous Epith Cells Occasional Urine Bacteria None seen Urine Casts 11-20 Nasal MRSA (PCR) Urine Opiates Screen Positive A Urine Methadone Screen Positive A Ur Barbiturates Screen Negative Ur Phencyclidine Scrn Negative Ur Amphetamine Screen Negative U Benzodiazepines Scrn Negative Urine Cocaine Screen Negative U Cannabinoids Screen Negative 12/15/23 12/15/23 12/15/23 05:02 05:11 05:42 WBC RBC Hgb Hct MCV MCH MCHC RDW Plt Count MPV Immature Gran % (Auto) Neut % (Auto) Lymph % (Auto) Lynn % (Auto) Eos % (Auto) Baso % (Auto) Lymph # (Auto) Lynn # (Auto) Eos # (Auto) Baso # (Auto) Abs Immat Gran (auto) Absolute Neuts (auto) Absolute Nucleated RBC Total Counted Neutrophils % (Manual) Band Neutrophils % Lymphocytes % (Manual) Monocytes % (Manual) Nucleated RBC % Abs Neuts (Manual) Abs Lymphs (Manual) Abs Monocytes (Manual) Platelet Estimate Target Cells Schistocytes Absolute Retic Percent Retic Immature Retic Fraction Retic Hgb Content PT INR APTT Puncture Site ABG pH ABG pCO2 ABG pO2 ABG PO2/FiO2 Ratio ABG HCO3 ABG O2 Saturation ABG O2 Content ABG Base Excess A-a Gradient Oxyhemoglobin Total Hemoglobin O2 Delivery Device O2 Liters/Min FiO2 Sodium Potassium Chloride Carbon Dioxide Anion Gap BUN Creatinine Estim Creat Clear Calc Estimated GFR Glucose POC Capillary Glucose < 20 L* 131 H 140 H Lactic Acid Calcium Phosphorus Magnesium Total Bilirubin AST ALT Alkaline Phosphatase Troponin I NT-Pro-B Natriuret Pep Total Protein Albumin Lipase TSH (Reflex) Free T4 Total T3 Urine Color Urine Appearance Urine pH Ur Specific Ruby Urine Protein Urine Glucose (UA) Urine Ketones Ur Blood (Man) Urine Nitrate Urine Bilirubin Urine Urobilinogen Add Ur Microanalysis Leukocyte Esterase Rfl Urine RBC Urine WBC Ur Squamous Epith Cells Urine Bacteria Urine Casts Nasal MRSA (PCR) Urine Opiates Screen Urine Methadone Screen Ur Barbiturates Screen Ur Phencyclidine Scrn Ur Amphetamine Screen U Benzodiazepines Scrn Urine Cocaine Screen U Cannabinoids Screen 12/15/23 12/15/23 06:34 06:43 WBC RBC Hgb Hct MCV MCH MCHC RDW Plt Count MPV Immature Gran % (Auto) Neut % (Auto) Lymph % (Auto) Lynn % (Auto) Eos % (Auto) Baso % (Auto) Lymph # (Auto) Lynn # (Auto) Eos # (Auto) Baso # (Auto) Abs Immat Gran (auto) Absolute Neuts (auto) Absolute Nucleated RBC Total Counted Neutrophils % (Manual) Band Neutrophils % Lymphocytes % (Manual) Monocytes % (Manual) Nucleated RBC % Abs Neuts (Manual) Abs Lymphs (Manual) Abs Monocytes (Manual) Platelet Estimate Target Cells Schistocytes Absolute Retic Percent Retic Immature Retic Fraction Retic Hgb Content PT INR APTT Puncture Site ABG pH ABG pCO2 ABG pO2 ABG PO2/FiO2 Ratio ABG HCO3 ABG O2 Saturation ABG O2 Content ABG Base Excess A-a Gradient Oxyhemoglobin Total Hemoglobin O2 Delivery Device O2 Liters/Min FiO2 Sodium Potassium Chloride Carbon Dioxide Anion Gap BUN Creatinine 2.40 H Estim Creat Clear Calc 44 Estimated GFR 37 L Glucose POC Capillary Glucose Lactic Acid 11.8 H* Calcium Phosphorus Magnesium Total Bilirubin AST ALT Alkaline Phosphatase Troponin I NT-Pro-B Natriuret Pep Total Protein Albumin Lipase TSH (Reflex) Free T4 Total T3 Urine Color Urine Appearance Urine pH Ur Specific Ruby Urine Protein Urine Glucose (UA) Urine Ketones Ur Blood (Man) Urine Nitrate Urine Bilirubin Urine Urobilinogen Add Ur Microanalysis Leukocyte Esterase Rfl Urine RBC Urine WBC Ur Squamous Epith Cells Urine Bacteria Urine Casts Nasal MRSA (PCR) Not detected Urine Opiates Screen Urine Methadone Screen Ur Barbiturates Screen Ur Phencyclidine Scrn Ur Amphetamine Screen U Benzodiazepines Scrn Urine Cocaine Screen U Cannabinoids Screen
--- NOTE | 2023-12-15 09:06 | WPDCNINT ---
Assessment and Plan Assessment and plan (1) Severe sepsis: Code(s): A41.9 - Sepsis, unspecified organism; R65.20 - Severe sepsis without septic shock Status: Acute Assessment and Plan: Patient presented with chills, nausea, vomiting, generalized pain along with chest pain, shortness of breath, tachycardia, tachypnea -in the ER was found to have severe sepsis with lactic acid of 9.8, leukocytosis, tachypnea, tachycardia, chest pain, chills, acute kidney injury with elevated creatinine and elevated LFTs -likely source pneumonia, acute cholecystitis -patient was given 3 L IV fluid bolus, blood pressures been stable -patient's lactic acid this morning is 11.8, additional IV fluid bolus was given -started on maintenance IV fluids with sodium bicarb infusion -12/13: Blood cultures have been obtained -started on Zosyn, doxycycline and vancomycin (12/13) (2) Pneumonia: Qualifiers: Laterality: right Lung location: lower lobe of lung Pneumonia type: due to unspecified organism Qualified Code(s): J18.9 - Pneumonia, unspecified organism Code(s): J18.9 - Pneumonia, unspecified organism Status: Acute Assessment and Plan: CT scan of the chest and chest x-ray showed bilateral basilar consolidations left greater than right -continue antibiotics as above (3) Sickle cell pain crisis: Code(s): D57.00 - Hb-SS disease with crisis, unspecified Status: Acute Assessment and Plan: Patient with chest pain, rib pain which is likely related to sickle cell pain crisis -increased dilaudid -patient also itching, added Benadryl (4) Elevated troponin: Code(s): R79.89 - Other specified abnormal findings of blood chemistry Status: Acute Assessment and Plan: Initial troponin was 0.047 could be related to ischemic demand from severe sepsis, hypovolemia, -EKG showed ST T wave abnormalities -will repeat troponin and echocardiogram -consult cardiology (5) Acute kidney injury: Code(s): N17.9 - Acute kidney failure, unspecified Status: Acute Assessment and Plan: Patient with acute kidney injury could be related to sickle cell crisis, hypovolemia, severe sepsis/infection -patient received adequate amount of IV fluid -severe acidosis -will start bicarb infusion -check urine lytes, -check renal ultrasound -nephrology has been consulted -monitor urine output, electrolytes and renal function (6) Elevated liver enzymes: Code(s): R74.8 - Abnormal levels of other serum enzymes Status: Acute Assessment and Plan: Significantly elevated bilirubin could be related to sickle cell crisis. 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 Status: Chronic Assessment and Plan: Patient has a history of DVT and PE and is on chronic anticoagulation with warfarin -INR was 3.1 on admission -patient was started on therapeutic Lovenox and received 1 dose this morning -will hold therapeutic Lovenox for now since patient has therapeutic INR -will start him on heparin infusion once his INR drops below therapeutic range Plan DVT prophylaxis: Therapeutic INR Stress ulcer prophylaxis: Not indicated Nutrition: NPO for now Code Status: Full code Critical Care Time Spent: 49 minutes Discussed with patient updated with his condition and plan of care. Due to a high probability of clinically significant, life threatening deterioration, the patient required my highest level of preparedness to intervene emergently and I personally spent this critical care time directly and personally managing the patient. This critical care time included obtaining a history; examining the patient; pulse oximetry; ordering and review of studies; arranging urgent treatment with development of a management plan; evaluation of patient's response to treatment; frequent reassessment; and discussions with other providers. It was exclusive of separately billable procedures and treating other patients and teaching time. Please see Assessment and Plan section and the rest of the note for further information on patient assessment and treatment This dictation may have been done utilizing a voice recognition system. Attempts have been made to correct errors. However, there may be uncorrected grammatical, spelling, and recognitions errors present. [employer] Consult Note Consult date: 12/15/23 Reason for consult: Sickle cell crisis, generalized pain, chest pain, severe sepsis, cholelithiasis/cholecystitis, hyperbilirubinemia, transaminitis, pneumonia HPI: Quan Downing is a 38 year old male with past medical history sickle cell disease, acute chest syndrome, history of DVT, PE, on chronic on anticoagulation with Eliquis, marijuana use, medication noncompliance. Patient is treated with methadone and oxycodone for his sickle cell, follows with Dr. Marks. Patient was recently admitted for sickle cell crisis and was recently discharged home on 12/12/2023 and returned to the ER on 12/14/2023 with complains of generalized pains and not feeling well. Patient stated that when he was discharged on 12/11 he was feeling well but then spent his day out in the heat and got caught in the rain and developed his typical pain crisis along with chest pain, pain across his ribs and his abdomen. He also had chills, nausea but denies any vomiting or diarrhea. In the ER he was found to be tachycardic, tachypneic and hypertensive. Pertinent labs are positive for WBC 24.7 with 15% bands, hemoglobin 10.5, platelets 161, CO2 of 13 creatinine of 2.3, BUN 24, lactic acid is 9.8. Bilirubin was 3.8 and on recheck was 6.0 with elevated LFTs. Troponin was 0.047, BNP 3050. CT chest abdomen pelvis on admission showed bibasilar consolidation left worse than right pneumonia cannot be excluded. Gallbladder distended with stones but without any inflammatory changes. Right upper quadrant ultrasound showed cholelithiasis, minimal gallbladder wall thickening raises the possibility of superimposed acute cholecystitis patient was given 3 L IV fluids and transfer the ICU after being started on doxycycline, Zosyn and vancomycin. Patient seen examined this morning in the ICU, continues to complain of pain all over and states he takes Dilaudid 3 mg IV q.3 hours and also requesting Benadryl as he is itching. CO2 this morning is 11, lactic acid increase to 11.8 from 8.4. Patient states he has on and off trouble breathing, hemodynamically stable, adequate urine, afebrile. Denies any nausea, vomiting, abdominal pain, cough. Review of Systems Review of Systems: All systems reviewed & are unremarkable except as noted in HPI and below PMFSH Past Medical History Medical History (Updated 12/15/23 @ 09:28 by Estella Reyes MD) Acute chest syndrome Acute kidney injury Chronic anticoagulation Due to history of DVT and pulmonary embolism. Chronic narcotic use On methadone with oxycodone for chronic pain related to sickle cell disease. 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 Deep venous thrombosis Noncompliance History of noncompliance with anticoagulation and hydroxyurea. Pulmonary embolism Sickle cell disease, type SC Surgical History Surgical History History of hand surgery Tendon surgery on right 5th finger. Family History Family History Grandparent Diabetes mellitus Acute myocardial infarction Sibling Asthma Sibling Asthma Mother Hypertension Sickle cell trait Son Sickle cell trait Daughter Sickle cell trait Grandparent No problems noted. Other Diabetes mellitus Father Sickle cell trait Social History Social History Social History: The patient lives in [place] with his family. He is on disability due to sickle cell disease and chronic pain. He is a lifelong nonsmoker and denies alcohol and illicit substance abuse. He uses marijuana to help with pain, states this happens 1-2x per year. He designates Jolly Zuniga (mother) or Keyla Luther (friend) as his surrogate decision makers and he wishes to be a full code. Smoking status: Never smoker Second hand tobacco smoke exposure: No Additional smoking assessment comments: Smokes marijuana when pain meds unavailable. Alcohol intake: never Substance use: never Substance use type: marijuana Other substance usage details: For back when he doesn't have any pain meds available. Last use: 12/28/22 Do You Feel Safe in your Home?: Yes Lack of Transportation: No Lack of Food: Never True Current Housing: I Have Housing Concerned About Future Housing: No Difficulty Paying Gas/Electric Bills: No Difficulty Paying for Meds: No Currently Unemployed: No Education: High School Diploma/GED Difficulty w/ Childcare or Family Care: No Living arrangements: with family Occupation/Education: other Spiritual care concerns: No Agree to blood products: Yes Meds Home Medications and Allergies Home Medications Medication Instructions Recorded Confirmed Type folic acid 1 mg tablet 1 mg PO DAILY 02/16/19 12/15/23 History methadone 10 mg tablet 10 mg PO TID 08/22/20 12/15/23 History oxycodone-acetaminophen 10 mg-325 1 tablet PO BID PRN Pain, Moderate 08/22/20 12/15/23 History mg tablet hydroxyurea 500 mg capsule 500 mg PO QAM #30 caps 11/23/21 12/15/23 Rx ibuprofen 800 mg tablet 800 mg PO PRN 12/30/22 12/15/23 History warfarin 10 mg tablet 10 mg PO HS 06/22/23 12/15/23 History warfarin 2 mg tablet 4 mg DAILY 12/15/23 12/15/23 History Allergies Allergy/AdvReac Type Severity Reaction Status Date / Time Fish Containing Products Allergy Mild Itching Verified 12/07/23 16:04 Vital Signs Vital Signs - 24 hr 12/14/23 22:12 12/14/23 22:23 12/14/23 22:55 Temperature 101.0 F H Pulse Rate 139 H 123 H Respiratory Rate 28 H 28 H 30 H Blood Pressure 131/109 H 105/84 Pulse Oximetry 94 94 96 Oxygen Delivery Room Air Fraction of Inspired Oxygen 12/14/23 23:18 12/15/23 00:48 12/15/23 00:54 Temperature 99.6 F 100.1 F H Pulse Rate 121 H 125 H Respiratory Rate 34 H 25 H Blood Pressure 109/53 L 117/67 Pulse Oximetry 93 96 Oxygen Delivery Fraction of Inspired Oxygen 12/15/23 03:01 12/15/23 04:09 12/15/23 05:16 Temperature 99.1 F Pulse Rate 135 H 123 H 123 H Respiratory Rate 31 H 32 H 18 Blood Pressure 115/53 L 114/76 117/65 Pulse Oximetry 94 93 95 Oxygen Delivery Fraction of Inspired Oxygen 12/15/23 06:33 12/15/23 06:00 12/15/23 06:38 Temperature 98.1 F Pulse Rate 115 H 117 H Respiratory Rate 26 H Blood Pressure 116/70 Pulse Oximetry 96 Oxygen Delivery Fraction of Inspired Oxygen 12/15/23 07:50 12/15/23 08:00 Temperature 98.1 F Pulse Rate 110 H Respiratory Rate 20 Blood Pressure 120/79 Pulse Oximetry 100 100 Oxygen Delivery Room Air Fraction of Inspired Oxygen 21 Exam Narrative: General: Ill-appearing gentleman HEENT:? Pupils equal and reactive, sclera is icteric, moist oral mucosa Neck:? Supple Respiratory:? Tachypnea, coarse breath sounds bilaterally decreased at bases, rales bilateral bases, no wheezing Cardiac:? Sinus tachycardia, S1-S2 Abdomen:? Soft, nontender, nondistended, hypoactive bowel sounds Extremities:? No edema Neuro:? Patient is awake, alert, oriented, nonfocal Skin:? Warm and dry Psych:? Withdrawn, normal mentation Results Labs 12/14/23 22:28 12/15/23 06:43 Labs: Short CBC 12/14/23 Range/Units 22:28 WBC 24.7 H (4.5-10.0) K/mm3 Hgb 10.5 L (14.0-18.0) g/dL Hct 29.6 L (42.0-52.0) % Plt Count 161 (150-375) k/mm3 BMP 12/14/23 12/15/23 12/15/23 22:28 04:15 06:43 Sodium 140 140 Potassium 3.7 4.6 Chloride 104 105 Carbon Dioxide 13 L 11 L BUN 21 H D 24 H Creatinine 1.80 H 2.30 H 2.40 H Glucose 150 H 46 L* Calcium 8.9 7.8 L Cardiac Enzymes 12/14/23 12/15/23 Range/Units 22:28 02:25 Troponin I 0.016 0.047 H* D (0.000-0.034) ng/mL Liver Function 12/14/23 12/15/23 Range/Units 22:28 04:15 Total Bilirubin 3.8 H 6.0 H (0.2-1.3) mg/dL AST 123 H 229 H (17-59) U/L ALT 44 55 H (6-50) U/L Alkaline Phosphatase 104 136 H (38-126) U/L Albumin 4.4 3.7 (3.5-5.1) g/dL Urine 12/15/23 Range/Units 02:25 Urine Color Yellow (Yellow) Urine Appearance Clear (Clear) Urine pH 5.5 (5.0-9.0) Ur Specific [place] 1.010 (1.001-1.035) Urine Protein 2+ H (Negative) mg/dL Urine Glucose (UA) Negative (Negative) mg/dL Hospitalist MIPS Advance Care Plan I have confirmed that the patient's Advanced Care Plan is present, code status is documented, or surrogate decision maker is listed in patient medical record.: Yes Medication Reconciliation I have utilized all available resources to obtain, update and review the patients current medications (includes all prescriptions, OTC, herbals, cannabis, and nutritional supplements).: Yes
[2023-12-15] MEDS: HYDROmorphone HCL INJ (*CRX) 1 MG/ML SYR 3 MG IV PUSH ×4 (09:40→19:58)
[2023-12-15] MEDS: DOXYCYCLINE 100 MG/NS 100 ML 100 MG/100 ML BAG IVPB ×2 (09:42→20:02)
[2023-12-15 09:44] LABS: Creatinine Urine 73.4 mg/dL; Total Protein Urine Random 88 mg/dL; Urea Random Urine 279 MG/DL
[2023-12-15] MEDS: SODIUM BICARBONATE 8.4% 150 MEQ in DEXTROSE 5% 1,000 ML 950 ML 100 MEQ IV CONT (09:45)
[2023-12-15 09:46] LABS: Sodium Urine Random 51 meq/L
[2023-12-15] MEDS: diphenhydrAMINE HCl INJ 50 MG/ML VIAL 25 MG IV PUSH ×2 (09:52→16:18)
[2023-12-15 10:04] LABS: Creatine Kinase 132 U/L (55-170)
[2023-12-15 10:07] LABS: Troponin I 0.117 ng/mL (0.000-0.034)
--- NOTE | 2023-12-15 10:14 | PM.CNGS ---
Assessment and Plan Assessment and plan (1) Sickle cell pain crisis: Code(s): D57.00 - Hb-SS disease with crisis, unspecified Status: Acute Assessment and Plan: admitted to ICU, continue aggressive hydration and supportive care (2) Sepsis: Code(s): A41.9 - Sepsis, unspecified organism Status: Acute Assessment and Plan: continue broad-spectrum antibiotics, questionable source, pneumonia versus cholecystitis (3) Cholelithiasis and acute cholecystitis without obstruction: Code(s): K80.00 - Calculus of gallbladder with acute cholecystitis without obstruction Status: Acute Assessment and Plan: imaging reviewed, continue to follow LFTs, may need percutaneous cholecystostomy History of Present Illness Consult details Consult date: 12/15/23 Reason for consult: gallstones Requesting physician: Sivan Pyle APN-C Narrative: The patient has a 38-year-old male with multiple medical issues presenting to the hospital with acute sickle cell crisis. The patient also has sepsis from unknown source. Recently admitted with sickle cell crisis and discharged on 12/11. The patient reports he was out working in the rain and began to have his typical crisis symptoms. He re-presented to the emergency department last night and workup suggestive of sickle cell crisis with sepsis. The patient is also noted to have gallbladder distension, slight wall thickening, cholelithiasis. The patient does not complain of any significant abdominal pain at this time. He reports that he aches all over and is having trouble breathing. Review of Systems Review of Systems: All systems reviewed & are unremarkable except as noted in HPI and below PMFSH Past Medical History Medical History Acute chest syndrome Acute kidney injury Chronic anticoagulation Due to history of DVT and pulmonary embolism. Chronic narcotic use On methadone with oxycodone for chronic pain related to sickle cell disease. 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 Deep venous thrombosis Noncompliance History of noncompliance with anticoagulation and hydroxyurea. Pulmonary embolism Sickle cell disease, type SC Surgical History Surgical History History of hand surgery Tendon surgery on right 5th finger. Family History Family History Grandparent Diabetes mellitus Acute myocardial infarction Sibling Asthma Sibling Asthma Mother Hypertension Sickle cell trait Son Sickle cell trait Daughter Sickle cell trait Grandparent No problems noted. Other Diabetes mellitus Father Sickle cell trait Social History Social History Social History: The patient lives in [place] with his family. He is on disability due to sickle cell disease and chronic pain. He is a lifelong nonsmoker and denies alcohol and illicit substance abuse. He uses marijuana to help with pain, states this happens 1-2x per year. He designates Jolly Zuniga (mother) or Keyla Luther (friend) as his surrogate decision makers and he wishes to be a full code. Smoking status: Never smoker Second hand tobacco smoke exposure: No Additional smoking assessment comments: Smokes marijuana when pain meds unavailable. Alcohol intake: never Substance use: never Substance use type: marijuana Other substance usage details: For back when he doesn't have any pain meds available. Last use: 12/28/22 Do You Feel Safe in your Home?: Yes Lack of Transportation: No Lack of Food: Never True Current Housing: I Have Housing Concerned About Future Housing: No Difficulty Paying Gas/Electric Bills: No Difficulty Paying for Meds: No Currently Unemployed: No Education: High School Diploma/GED Difficulty w/ Childcare or Family Care: No Living arrangements: with family Occupation/Education: other Spiritual care concerns: No Agree to blood products: Yes Meds Home Medications and Allergies Home Medications Medication Instructions Recorded Confirmed Type folic acid 1 mg tablet 1 mg PO DAILY 02/16/19 12/15/23 History methadone 10 mg tablet 10 mg PO TID 08/22/20 12/15/23 History oxycodone-acetaminophen 10 mg-325 1 tablet PO BID PRN Pain, Moderate 08/22/20 12/15/23 History mg tablet hydroxyurea 500 mg capsule 500 mg PO QAM #30 caps 11/23/21 12/15/23 Rx ibuprofen 800 mg tablet 800 mg PO PRN 12/30/22 12/15/23 History warfarin 10 mg tablet 10 mg PO HS 06/22/23 12/15/23 History warfarin 2 mg tablet 4 mg DAILY 12/15/23 12/15/23 History Allergies Allergy/AdvReac Type Severity Reaction Status Date / Time Fish Containing Products Allergy Mild Itching Verified 12/07/23 16:04 Vital Signs Vital Signs - 24 hr 12/14/23 22:12 12/14/23 22:23 12/14/23 22:55 Temperature 38.3 C H Pulse Rate 139 H 123 H Respiratory Rate 28 H 28 H 30 H Blood Pressure 131/109 H 105/84 Pulse Oximetry 94 94 96 Oxygen Delivery Room Air Fraction of Inspired Oxygen 12/14/23 23:18 12/15/23 00:48 12/15/23 00:54 Temperature 37.6 C 37.8 C H Pulse Rate 121 H 125 H Respiratory Rate 34 H 25 H Blood Pressure 109/53 L 117/67 Pulse Oximetry 93 96 Oxygen Delivery Fraction of Inspired Oxygen 12/15/23 03:01 12/15/23 04:09 12/15/23 05:16 Temperature 37.3 C Pulse Rate 135 H 123 H 123 H Respiratory Rate 31 H 32 H 18 Blood Pressure 115/53 L 114/76 117/65 Pulse Oximetry 94 93 95 Oxygen Delivery Fraction of Inspired Oxygen 12/15/23 06:33 12/15/23 06:00 12/15/23 06:38 Temperature 36.7 C Pulse Rate 115 H 117 H Respiratory Rate 26 H Blood Pressure 116/70 Pulse Oximetry 96 Oxygen Delivery Fraction of Inspired Oxygen 12/15/23 07:50 12/15/23 08:00 12/15/23 10:00 Temperature 36.7 C Pulse Rate 110 H 114 H Respiratory Rate 20 16 Blood Pressure 120/79 136/82 Pulse Oximetry 100 100 98 Oxygen Delivery Room Air Fraction of Inspired Oxygen 21 Exam Const: General: cooperative, acute distress mild, ill appearing, tired appearing and uncomfortable HENMT: Head: normal to inspection, normocephalic and atraumatic Eyes: General: appearance normal, both eyes and all related structures Neck: Neck: normal visual inspection, full ROM and no lymphadenopathy Resp: Auscultation: diminished lung sounds Cardio: Rate: regular rate Rhythm: regular rhythm GI: Inspection: normal to inspection and non-distended GI Palp: Yes abdominal tenderness, Yes Soft to palpation, Yes Tenderness to palpation present (GI), No Guarding due to palpation present (GI) and No Rigid due to palpation Skin: General skin exam: normal color and no rashes or lesions noted Neuro: General: patient oriented x3 and CN's II-XI intact bilaterally Extrem: General: normal to inspection and full ROM Results Labs 12/14/23 22:28 09/01/24 06:43 Labs: Abnormal lab results 12/14/23 12/14/23 12/14/23 Range/Units 22:28 22:31 23:30 WBC 24.7 H (4.5-10.0) K/mm3 RBC 3.27 L (4.6-6.20) M/mm3 Hgb 10.5 L (14.0-18.0) g/dL Hct 29.6 L (42.0-52.0) % RDW 14.8 H (11.5-14.5) % MPV 10.9 H (7.4-10.4) fl Neutrophils % (Manual) 79 H (46-73) % Band Neutrophils % 15 H (0-6) % Lymphocytes % (Manual) 3.0 L (18-44) % Abs Neuts (Manual) 23.21 H (1.3-6.7) K/mm3 Abs Lymphs (Manual) 0.74 L (1.1-4.5) K/mm3 Immature Retic Fraction 20.8 H (3.0-15.9) % Retic Hgb Content 26.8 L (28.2-36.6) pg PT 32.4 H (11.1-14.7) Seconds APTT 63.0 H (22.3-36.8) Seconds ABG pH 7.342 L (7.350-7.450) ABG pCO2 28.5 L (35.0-45.0) mmHg ABG pO2 62.4 L (80.0-100.0) mmHg ABG HCO3 15.1 L (22.0-26.0) mEq/l ABG O2 Saturation 91.1 L (95.0-100.0) % ABG O2 Content 11.5 L (16.0-22.0) %vol Oxyhemoglobin 88.4 L (90.0-100.0) % THb Total Hemoglobin 9.2 L (12.0-18.0) g/dL Carbon Dioxide 13 L (22-30) mmol/L Anion Gap 23 H (4-12) mmol/L BUN 21 H D (9-20) mg/dL Creatinine 1.80 H (0.7-1.3) mg/dL Estimated GFR 51 L (59 - ) Glucose 150 H (65-110) mg/dL POC Capillary Glucose 141 H (65-105) mg/dl Lactic Acid 9.8 H* (0.7-2.0) mmol/L Calcium (8.4-10.2) mg/dL Magnesium 1.5 L (1.6-2.3) mg/dL Total Bilirubin 3.8 H (0.2-1.3) mg/dL AST 123 H (17-59) U/L ALT (6-50) U/L Alkaline Phosphatase (38-126) U/L Troponin I (0.000-0.034) ng/mL NT-Pro-B Natriuret Pep 3050 H (19.9-100) pg/mL TSH (Reflex) 0.209 L (0.465-4.68) uIU/mL Total T3 0.67 L (0.97-1.69) NG/ML Urine Protein (Negative) mg/dL Urine Ketones (Negative) mg/dL Ur Blood (Man) (Negative) Urine Bilirubin (Negative) Urine Urobilinogen (<2.0) mg/dL Urine Opiates Screen (Negative) Urine Methadone Screen (Negative) 12/15/23 12/15/23 12/15/23 Range/Units 02:25 02:30 04:15 WBC (4.5-10.0) K/mm3 RBC (4.6-6.20) M/mm3 Hgb (14.0-18.0) g/dL Hct (42.0-52.0) % RDW (11.5-14.5) % MPV (7.4-10.4) fl Neutrophils % (Manual) (46-73) % Band Neutrophils % (0-6) % Lymphocytes % (Manual) (18-44) % Abs Neuts (Manual) (1.3-6.7) K/mm3 Abs Lymphs (Manual) (1.1-4.5) K/mm3 Immature Retic Fraction (3.0-15.9) % Retic Hgb Content (28.2-36.6) pg PT (11.1-14.7) Seconds APTT (22.3-36.8) Seconds ABG pH (7.350-7.450) ABG pCO2 (35.0-45.0) mmHg ABG pO2 (80.0-100.0) mmHg ABG HCO3 (22.0-26.0) mEq/l ABG O2 Saturation (95.0-100.0) % ABG O2 Content (16.0-22.0) %vol Oxyhemoglobin (90.0-100.0) % THb Total Hemoglobin (12.0-18.0) g/dL Carbon Dioxide 11 L (22-30) mmol/L Anion Gap 24 H (4-12) mmol/L BUN 24 H (9-20) mg/dL Creatinine 2.30 H (0.7-1.3) mg/dL Estimated GFR 38 L (59 - ) Glucose 46 L* (65-110) mg/dL POC Capillary Glucose (65-105) mg/dl Lactic Acid 8.4 H* (0.7-2.0) mmol/L Calcium 7.8 L (8.4-10.2) mg/dL Magnesium (1.6-2.3) mg/dL Total Bilirubin 6.0 H (0.2-1.3) mg/dL AST 229 H (17-59) U/L ALT 55 H (6-50) U/L Alkaline Phosphatase 136 H (38-126) U/L Troponin I 0.047 H* D (0.000-0.034) ng/mL NT-Pro-B Natriuret Pep (19.9-100) pg/mL TSH (Reflex) (0.465-4.68) uIU/mL Total T3 (0.97-1.69) NG/ML Urine Protein 2+ H (Negative) mg/dL Urine Ketones Trace H (Negative) mg/dL Ur Blood (Man) 2+ H (Negative) Urine Bilirubin 1+ H (Negative) Urine Urobilinogen 2.0 H (<2.0) mg/dL Urine Opiates Screen Positive A (Negative) Urine Methadone Screen Positive A (Negative) 12/15/23 12/15/23 12/15/23 Range/Units 05:02 05:11 05:42 WBC (4.5-10.0) K/mm3 RBC (4.6-6.20) M/mm3 Hgb (14.0-18.0) g/dL Hct (42.0-52.0) % RDW (11.5-14.5) % MPV (7.4-10.4) fl Neutrophils % (Manual) (46-73) % Band Neutrophils % (0-6) % Lymphocytes % (Manual) (18-44) % Abs Neuts (Manual) (1.3-6.7) K/mm3 Abs Lymphs (Manual) (1.1-4.5) K/mm3 Immature Retic Fraction (3.0-15.9) % Retic Hgb Content (28.2-36.6) pg PT (11.1-14.7) Seconds APTT (22.3-36.8) Seconds ABG pH (7.350-7.450) ABG pCO2 (35.0-45.0) mmHg ABG pO2 (80.0-100.0) mmHg ABG HCO3 (22.0-26.0) mEq/l ABG O2 Saturation (95.0-100.0) % ABG O2 Content (16.0-22.0) %vol Oxyhemoglobin (90.0-100.0) % THb Total Hemoglobin (12.0-18.0) g/dL Carbon Dioxide (22-30) mmol/L Anion Gap (4-12) mmol/L BUN (9-20) mg/dL Creatinine (0.7-1.3) mg/dL Estimated GFR (59 - ) Glucose (65-110) mg/dL POC Capillary Glucose < 20 L* 131 H 140 H (65-105) mg/dl Lactic Acid (0.7-2.0) mmol/L Calcium (8.4-10.2) mg/dL Magnesium (1.6-2.3) mg/dL Total Bilirubin (0.2-1.3) mg/dL AST (17-59) U/L ALT (6-50) U/L Alkaline Phosphatase (38-126) U/L Troponin I (0.000-0.034) ng/mL NT-Pro-B Natriuret Pep (19.9-100) pg/mL TSH (Reflex) (0.465-4.68) uIU/mL Total T3 (0.97-1.69) NG/ML Urine Protein (Negative) mg/dL Urine Ketones (Negative) mg/dL Ur Blood (Man) (Negative) Urine Bilirubin (Negative) Urine Urobilinogen (<2.0) mg/dL Urine Opiates Screen (Negative) Urine Methadone Screen (Negative) 12/15/23 12/15/23 Range/Units 06:35 06:43 WBC (4.5-10.0) K/mm3 RBC (4.6-6.20) M/mm3 Hgb (14.0-18.0) g/dL Hct (42.0-52.0) % RDW (11.5-14.5) % MPV (7.4-10.4) fl Neutrophils % (Manual) (46-73) % Band Neutrophils % (0-6) % Lymphocytes % (Manual) (18-44) % Abs Neuts (Manual) (1.3-6.7) K/mm3 Abs Lymphs (Manual) (1.1-4.5) K/mm3 Immature Retic Fraction (3.0-15.9) % Retic Hgb Content (28.2-36.6) pg PT (11.1-14.7) Seconds APTT (22.3-36.8) Seconds ABG pH (7.350-7.450) ABG pCO2 (35.0-45.0) mmHg ABG pO2 (80.0-100.0) mmHg ABG HCO3 (22.0-26.0) mEq/l ABG O2 Saturation (95.0-100.0) % ABG O2 Content (16.0-22.0) %vol Oxyhemoglobin (90.0-100.0) % THb Total Hemoglobin (12.0-18.0) g/dL Carbon Dioxide (22-30) mmol/L Anion Gap (4-12) mmol/L BUN (9-20) mg/dL Creatinine 2.40 H (0.7-1.3) mg/dL Estimated GFR 37 L (59 - ) Glucose (65-110) mg/dL POC Capillary Glucose (65-105) mg/dl Lactic Acid 11.8 H* (0.7-2.0) mmol/L Calcium (8.4-10.2) mg/dL Magnesium (1.6-2.3) mg/dL Total Bilirubin (0.2-1.3) mg/dL AST (17-59) U/L ALT (6-50) U/L Alkaline Phosphatase (38-126) U/L Troponin I 0.117 H* D (0.000-0.034) ng/mL NT-Pro-B Natriuret Pep (19.9-100) pg/mL TSH (Reflex) (0.465-4.68) uIU/mL Total T3 (0.97-1.69) NG/ML Urine Protein (Negative) mg/dL Urine Ketones (Negative) mg/dL Ur Blood (Man) (Negative) Urine Bilirubin (Negative) Urine Urobilinogen (<2.0) mg/dL Urine Opiates Screen (Negative) Urine Methadone Screen (Negative) Diabetes panel 12/14/23 12/15/23 12/15/23 Range/Units 22:28 04:15 06:43 Sodium 140 140 (137-145) mmol/L Potassium 3.7 4.6 (3.4-5.0) mmol/L Chloride 104 105 (98-107) mmol/L Carbon Dioxide 13 L 11 L (22-30) mmol/L BUN 21 H D 24 H (9-20) mg/dL Creatinine 1.80 H 2.30 H 2.40 H (0.7-1.3) mg/dL Glucose 150 H 46 L* (65-110) mg/dL Calcium 8.9 7.8 L (8.4-10.2) mg/dL AST 123 H 229 H (17-59) U/L ALT 44 55 H (6-50) U/L Alkaline Phosphatase 104 136 H (38-126) U/L Total Protein 8.0 7.0 (6.3-8.2) g/dL Albumin 4.4 3.7 (3.5-5.1) g/dL Calcium panel 12/14/23 12/15/23 Range/Units 22:28 04:15 Calcium 8.9 7.8 L (8.4-10.2) mg/dL Phosphorus 2.8 (2.5-4.5) mg/dL Albumin 4.4 3.7 (3.5-5.1) g/dL Pituitary panel 12/14/23 12/15/23 12/15/23 Range/Units 22:28 04:15 06:43 Sodium 140 140 (137-145) mmol/L Potassium 3.7 4.6 (3.4-5.0) mmol/L Chloride 104 105 (98-107) mmol/L Carbon Dioxide 13 L 11 L (22-30) mmol/L BUN 21 H D 24 H (9-20) mg/dL Creatinine 1.80 H 2.30 H 2.40 H (0.7-1.3) mg/dL Glucose 150 H 46 L* (65-110) mg/dL Calcium 8.9 7.8 L (8.4-10.2) mg/dL Total T3 0.67 L (0.97-1.69) NG/ML Adrenal panel 12/14/23 12/15/23 12/15/23 Range/Units 22:28 04:15 06:43 Sodium 140 140 (137-145) mmol/L Potassium 3.7 4.6 (3.4-5.0) mmol/L Chloride 104 105 (98-107) mmol/L Carbon Dioxide 13 L 11 L (22-30) mmol/L BUN 21 H D 24 H (9-20) mg/dL Creatinine 1.80 H 2.30 H 2.40 H (0.7-1.3) mg/dL Glucose 150 H 46 L* (65-110) mg/dL Calcium 8.9 7.8 L (8.4-10.2) mg/dL Total Bilirubin 3.8 H 6.0 H (0.2-1.3) mg/dL AST 123 H 229 H (17-59) U/L ALT 44 55 H (6-50) U/L Alkaline Phosphatase 104 136 H (38-126) U/L Total Protein 8.0 7.0 (6.3-8.2) g/dL Albumin 4.4 3.7 (3.5-5.1) g/dL All other labs normal.
[2023-12-15] MEDS: HYDROXYUREA (*CHEMO) 500 MG CAPSULE PO (10:25)
[2023-12-15] MEDS: FOLIC ACID 1 MG TABLET PO (10:25)
[2023-12-15 11:49] LABS: Glucose Point of Care 42 mg/dl (65-105)
--- NOTE | 2023-12-15 12:04 | P.CONNP_ITS ---
Assessment and Plan Assessment and plan (1) Acute kidney injury: Code(s): N17.9 - Acute kidney failure, unspecified Status: Acute Assessment and Plan: * as noted on admission * baseline creatinine is normal * suspect due to a combination of sickle cell crisis, prerenal factors, and possible infection * evaluation to date noted: * urine electrolytes non-prerenal * urine eosinophils pending * UA with blood and protein * CPK normal * renal ultrasound unremarkable * continue IVF resuscitation * follow repeat labs and UOP (2) Severe sepsis: Code(s): A41.9 - Sepsis, unspecified organism; R65.20 - Severe sepsis without septic shock Status: Acute Assessment and Plan: * as noted by presentatio: pain, shortness of breath, tachycarida, tachypnea, chills, nausea + vomiting in association with leukocytosis, lactic acidosis, CLEMENTINA/ARF, and transaminitis * suspect source = pneumonia and possible acute cholecysitis * s/p aggressive IVF resuscitation with stable hemodynamics * on bicarb fluids currently due to acidosis * follow culture data * continue broad spectrum antibiotics * follow hemodynamics (3) Sickle cell pain crisis: Code(s): D57.00 - Hb-SS disease with crisis, unspecified Status: Acute Assessment and Plan: * as noted by diffuse pain in chest, ribs, abdomen...etc * on IV pain medications * continue symptom control * Patient with chest pain, rib pain which is likely related to sickle cell pain crisis (4) Pneumonia: Qualifiers: Laterality: right Lung location: lower lobe of lung Pneumonia type: due to unspecified organism Qualified Code(s): J18.9 - Pneumonia, unspecified organism Code(s): J18.9 - Pneumonia, unspecified organism Status: Acute Assessment and Plan: * admission imaging with bilateral bibasilar consolidation (L>R) * follow culture data * on antibiotics * follow respiratory status (5) Elevated troponin: Code(s): R79.89 - Other specified abnormal findings of blood chemistry Status: Acute Assessment and Plan: * noted in ER * follow trend and check Echo * Cardiology consulted * suspect demand ischemia due to sepsis and sickle cell crisis (6) Elevated liver enzymes: Code(s): R74.8 - Abnormal levels of other serum enzymes Status: Acute Assessment and Plan: * noted elevated bilirubin and other LFTs * related to sickle cell crisis versus possible cholelithiasis/cholecystitis * Surgery recommendations noted * possible cholecystectomy tube placement if symptoms worsen * follow trend for now * GI consulted (7) Chronic anticoagulation: Code(s): Z79.01 - group home (current) use of anticoagulants Status: Chronic Assessment and Plan: * known history of DVT and PE * was on warfarin * use heparin gtt once INR drops below goal Case discussed with Dr. Reyes. I will continue to follow the patient with you while he remains hospitalized make further recommendations as deemed necessary. Thank you for allowing to participate in the care of this patient. History of Present Illness Reason for Consult Consult date: 12/15/23 Reason for consult: acute renal failure Chief Complaint Chief complaint: Sepsis History of Present Illness Narrative: A great majority of the history that I obtained is from review of the electronic medical record as well as discussion with the physician/nurses involved in the patient's care as the patient is intermittently sleepy/ lethargic at the time my visit although he just received some pain medications. The patient is a 38-year-old male with a past medical history as outlined below who presented to [facility] Emergency Room yesterday evening with complaints of diffuse pain all over his body that he felt was consistent with another sickle cell crisis. The patient was just recently hospitalized and discharged from this facility for a previous sickle cell crisis. He was discharged 2 days ago prior to his presentation to the ER on this hospitalization. His symptoms were controlled with his current outpatient medications and he felt reasonably well on the day of discharge. Yesterday, he spent all day outside doing work in the heat and even got caught in the rain. When he came back inside, that is when he started having pain all over his body consistent with his previous sickle cell crisis symptoms. His pain was localized to his chest, back, ribs, right side of his abdomen in association with chills and nausea. He reported no history of vomiti ng or diarrhea. Given these constellation of symptoms and is concerned that he was having another sickle cell crisis, he presented to [facility] Emergency Room for further assessment. Workup and evaluation emergency room demonstrated the patient to be tachycardic, tachypneic, and hypertensive. routine labs were significant for an elevated white blood cell count of 424.7 with significant bandemia, anemia with a hemoglobin/hematocrit of 10.5/29.6, reticulin to of 26.8, and a chemistry panel that demonstrated acute kidney injury/acute renal failure with a BUN of 24 and a creatinine of 2.3 in association with a lactic acidosis of 9.8 as well as elevated liver function tests including his bilirubin. His troponin was mildly elevated in association with a mildly elevated BNP as well. Given his renal dysfunction and associated LFTs, he underwent a CT scan of his chest / abdomen /pelvis which demonstrated bibasilar consolidation in his lung with a left worse than right raising the possibility of pneumonia and distended gallbladder with stones but without any inflammatory changes. While in the ER, repeat labs show his bilirubin worsening and a subsequent right upper quadrant ultrasound was done which once again showed cholelithiasis with minimal gallbladder wall thickening with the possibility of superimposed acute cholecystitis. While in the ER, he had episode of symptomatic hypoglycemia in association with diaphoresis there required 2 amps of D50 with improvement in his blood sugar. Given the concerns for sepsis, appropriate cultures were obtained and he was started on broad-spectrum IV antibiotics As well. Surgery was consulted with regard to his possible cholecystitis and he was initiated on aggressive IV fluid resuscitation with subsequent admission to the intensive care unit for further evaluation therapy. Since his admission, he continues to have diffuse pain all over his body requiring significant pain medications to keep his symptoms under control. His acidosis was worse this morning as well as his lactic acid increased to 11.8 from the previous reading of 8.4 and he was initiated on a bicarb drip given his significant acidosis. He also reports on and off trouble breathing although he remains hemodynamically stable. General surgery has seen the patient with recommendations for continued conservative therapy although he may require a c holecystectomy tube placement if he does indeed have cholecystitis. Renal consultation was requested due to his acute kidney injury/acute renal failure. As noted on his last hospitalization, the patient's kidney function is well within normal limits. On presentation to the hospital, his creatinine was up to 1.8 mg/dL and repeat testing the ER showed his creatinine up to 2.3 mg/dL. Repeat labs done this morning show a creatinine at 2.4 mg/dL. In spite of this worsening renal function/creatinine, he has no critical electrolyte abnormalities but as already mentioned, he does have a significant metabolic acidosis partly related to his acute kidney injury as well as his lactic acidosis. Furthermore, he appears to making fairly good urine output with the aggressive IV fluid resuscitation that has been instituted since his admission. Given his known history of sickle cell and his presentation of sickle cell crisis, the concerns would be renal hypoperfusion due to sickle cells, endothel ial damage due to vaso-occlusive disease from the sickle cells, and possible hyperfiltration all leading to of conditions (sickle cell glomerulopathy/nephropathy, renal papillary necrosis, renal tubular disease, FSGS...etc with associated issues of hematuria, proteinuria..etc). Currently, at the time my visit, he was sleeping comfortably prior to me waking him up to discuss his current situation. Review of Systems Review of Systems: As per HPI. [facility] Past Medical History Medical History Acute chest syndrome Acute kidney injury Chronic anticoagulation Due to history of DVT and pulmonary embolism. Chronic narcotic use On methadone with oxycodone for chronic pain related to sickle cell disease. 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 Deep venous thrombosis Noncompliance History of noncompliance with anticoagulation and hydroxyurea. Pulmonary embolism Sickle cell disease, type SC Surgical History Surgical History History of hand surgery Tendon surgery on right 5th finger. Family History Family History Grandparent Diabetes mellitus Acute myocardial infarction Sibling Asthma Sibling Asthma Mother Hypertension Sickle cell trait Son Sickle cell trait Daughter Sickle cell trait Grandparent No problems noted. Other Diabetes mellitus Father Sickle cell trait Social History Social History Social History: The patient lives in [place] with his family. He is on disability due to sickle cell disease and chronic pain. He is a lifelong nonsmoker and denies alcohol and illicit substance abuse. He uses marijuana to help with pain, states this happens 1-2x per year. He designates Jolly Zuniga (mother) or Keyla Luther (friend) as his surrogate decision makers and he wishes to be a full code. Smoking status: Never smoker Second hand tobacco smoke exposure: No Additional smoking assessment comments: Smokes marijuana when pain meds unavailable. Alcohol intake: never Substance use: never Substance use type: marijuana Other substance usage details: For back when he doesn't have any pain meds available. Last use: 12/28/22 Do You Feel Safe in your Home?: Yes Lack of Transportation: No Lack of Food: Never True Current Housing: I Have Housing Concerned About Future Housing: No Difficulty Paying Gas/Electric Bills: No Difficulty Paying for Meds: No Currently Unemployed: No Education: High School Diploma/GED Difficulty w/ Childcare or Family Care: No Living arrangements: with family Occupation/Education: other Spiritual care concerns: No Agree to blood products: Yes Meds Home Medications and Allergies Home Medications Medication Instructions Recorded Confirmed Type folic acid 1 mg tablet 1 mg PO DAILY 02/16/19 12/15/23 History methadone 10 mg tablet 10 mg PO TID 08/22/20 12/15/23 History oxycodone-acetaminophen 10 mg-325 1 tablet PO BID PRN Pain, Moderate 08/22/20 12/15/23 History mg tablet hydroxyurea 500 mg capsule 500 mg PO QAM #30 caps 11/23/21 12/15/23 Rx ibuprofen 800 mg tablet 800 mg PO PRN 12/30/22 12/15/23 History warfarin 10 mg tablet 10 mg PO HS 06/22/23 12/15/23 History warfarin 2 mg tablet 4 mg DAILY 12/15/23 12/15/23 History Allergies Allergy/AdvReac Type Severity Reaction Status Date / Time Fish Containing Products Allergy Mild Itching Verified 12/07/23 16:04 Vital Signs Vital Signs Temp Pulse Resp BP Pulse Ox O2 Del Method O2 Flow Rate 12/15/23 12:00 97.9 F 111 H 18 133/77 95 Nasal Cannula 2 12/15/23 10:00 114 H 16 136/82 98 12/15/23 08:00 98.1 F 110 H 20 120/79 100 12/15/23 07:50 100 Room Air 12/15/23 06:38 117 H 12/15/23 06:00 115 H 26 H 116/70 96 12/15/23 06:33 98.1 F 12/15/23 05:16 123 H 18 117/65 95 12/15/23 04:09 99.1 F 123 H 32 H 114/76 93 12/15/23 03:01 135 H 31 H 115/53 L 94 12/15/23 00:54 100.1 F H 12/15/23 00:48 125 H 25 H 117/67 96 12/14/23 23:18 99.6 F 121 H 34 H 109/53 L 93 12/14/23 22:55 123 H 30 H 105/84 96 12/14/23 22:23 28 H 94 12/14/23 22:12 101.0 F H 139 H 28 H 131/109 H 94 Room Air Exam Narrative: GENERAL APPEARANCE: mildly ill appearing but well developed well nourished Afr [place] Citizen [place] male in no acute distress HEENT: normocephalic, atraumatic, icteric sclera noted, nares patient NECK: no lymphadenopathy, thyromegaly, or JVD MOUTH: normal lips, teeth, and gums CARDIOVASCULAR: tachycardic but regular, normal S1 and S2, no rub RESPIRATORY: coarse breath sounds with some bibasilar rales ABDOMEN: soft, nontender, nondistended, decreased bowel sounds present EXTREMITIES: no evidence of cyanosis, clubbing, or edema NEUROLOGICAL: alert and oriented x 3; CN II - XII intact bilaterally; no focal deficits noted Results Lab Results 12/15/23 14:18 12/15/23 14:18 Lab results: Most recent lab results ABG pH 7.342 (7.350-7.450) L 12/14/23 23:30 ABG pCO2 28.5 mmHg (35.0-45.0) L 12/14/23 23:30 ABG pO2 62.4 mmHg (80.0-100.0) L 12/14/23 23:30 ABG HCO3 15.1 mEq/l (22.0-26.0) L 12/14/23 23:30 ABG O2 Saturation 91.1 % (95.0-100.0) L 12/14/23 23:30 Calcium 6.7 mg/dL (8.4-10.2) L 12/15/23 14:18 Phosphorus 2.8 mg/dL (2.5-4.5) 12/14/23 22:28 Magnesium 1.5 mg/dL (1.6-2.3) L 12/14/23 22:28 Urine Creatinine 73.4 mg/dL 12/15/23 02:30
[2023-12-15 12:13] LABS: Glucose Point of Care 96 mg/dl (65-105)
--- NOTE | 2023-12-15 14:14 | P.CONCA_ITS ---
Assessment and Plan Assessment and plan (1) Elevated troponin: Code(s): R79.89 - Other specified abnormal findings of blood chemistry Status: Acute Plan Elevated cardiac enzymes likely demand ischemia in setting of sepsis, Kyrie I Sickle cell anemia Severe Sepsis probable pneumonia History of DVT and BUN oral anticoagulation Kyrie Plan Transthoracic echocardiogram Continue oral anticoagulation History of Present Illness History of Present Illness Consult date/time: 12/15/23 14:14 Reason For Visit: Sepsis Narrative: 38 years old male patient presents to the hospital was chills feeling cold associated with shortness of breath rate shortness of breath with moderate to s evere present with mild activity. There was no orthopnea paroxysmal nocturnal dyspnea. Patient also is complaining of diffuse body aches worse in the back. He has history of sickle cell disease. He was admitted to the hospital with workup for possible sepsis with significant leukocytosis. Workup revealed mildly elevated cardiac enzymes. Patient denies any chest discomfort or chest pain Review of Systems Review of Systems: All systems reviewed & are unremarkable except as noted in HPI and below PMFSH Past Medical History Medical History Acute chest syndrome Acute kidney injury Chronic anticoagulation Due to history of DVT and pulmonary embolism. Chronic narcotic use On methadone with oxycodone for chronic pain related to sickle cell disease. 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 Deep venous thrombosis Noncompliance History of noncompliance with anticoagulation and hydroxyurea. Pulmonary embolism Sickle cell disease, type SC Surgical History Surgical History History of hand surgery Tendon surgery on right 5th finger. Family History Family History Grandparent Diabetes mellitus Acute myocardial infarction Sibling Asthma Sibling Asthma Mother Hypertension Sickle cell trait Son Sickle cell trait Daughter Sickle cell trait Grandparent No problems noted. Other Diabetes mellitus Father Sickle cell trait Social History Social History Social History: The patient lives in [place] with his family. He is on disability due to sickle cell disease and chronic pain. He is a lifelong nonsmoker and denies alcohol and illicit substance abuse. He uses marijuana to help with pain, states this happens 1-2x per year. He designates Jolly Zuniga (mother) or Keyla Luther (friend) as his surrogate decision makers and he wishes to be a full code. Smoking status: Never smoker Second hand tobacco smoke exposure: No Additional smoking assessment comments: Smokes marijuana when pain meds unavailable. Alcohol intake: never Substance use: never Substance use type: marijuana Other substance usage details: For back when he doesn't have any pain meds available. Last use: 12/28/22 Do You Feel Safe in your Home?: Yes Lack of Transportation: No Lack of Food: Never True Current Housing: I Have Housing Concerned About Future Housing: No Difficulty Paying Gas/Electric Bills: No Difficulty Paying for Meds: No Currently Unemployed: No Education: High School Diploma/GED Difficulty w/ Childcare or Family Care: No Living arrangements: with family Occupation/Education: other Spiritual care concerns: No Agree to blood products: Yes Meds Home Medications and Allergies Home Medications Medication Instructions Recorded Confirmed Type folic acid 1 mg tablet 1 mg PO DAILY 02/16/19 12/15/23 History methadone 10 mg tablet 10 mg PO TID 08/22/20 12/15/23 History oxycodone-acetaminophen 10 mg-325 1 tablet PO BID PRN Pain, Moderate 08/22/20 12/15/23 History mg tablet hydroxyurea 500 mg capsule 500 mg PO QAM #30 caps 11/23/21 12/15/23 Rx ibuprofen 800 mg tablet 800 mg PO PRN 12/30/22 12/15/23 History warfarin 10 mg tablet 10 mg PO HS 06/22/23 12/15/23 History warfarin 2 mg tablet 4 mg DAILY 12/15/23 12/15/23 History Allergies Allergy/AdvReac Type Severity Reaction Status Date / Time Fish Containing Products Allergy Mild Itching Verified 12/07/23 16:04 Vital Signs Vital Signs - 24 hr 12/14/23 22:12 12/14/23 22:23 12/14/23 22:55 Temperature 38.3 C H Pulse Rate 139 H 123 H Respiratory Rate 28 H 28 H 30 H Blood Pressure 131/109 H 105/84 Pulse Oximetry 94 94 96 Oxygen Delivery Room Air Oxygen Flow Rate Fraction of Inspired Oxygen 12/14/23 23:18 12/15/23 00:48 12/15/23 00:54 Temperature 37.6 C 37.8 C H Pulse Rate 121 H 125 H Respiratory Rate 34 H 25 H Blood Pressure 109/53 L 117/67 Pulse Oximetry 93 96 Oxygen Delivery Oxygen Flow Rate Fraction of Inspired Oxygen 12/15/23 03:01 12/15/23 04:09 12/15/23 05:16 Temperature 37.3 C Pulse Rate 135 H 123 H 123 H Respiratory Rate 31 H 32 H 18 Blood Pressure 115/53 L 114/76 117/65 Pulse Oximetry 94 93 95 Oxygen Delivery Oxygen Flow Rate Fraction of Inspired Oxygen 12/15/23 06:33 12/15/23 06:00 12/15/23 06:38 Temperature 36.7 C Pulse Rate 115 H 117 H Respiratory Rate 26 H Blood Pressure 116/70 Pulse Oximetry 96 Oxygen Delivery Oxygen Flow Rate Fraction of Inspired Oxygen 12/15/23 07:50 12/15/23 08:00 12/15/23 10:00 Temperature 36.7 C Pulse Rate 110 H 114 H Respiratory Rate 20 16 Blood Pressure 120/79 136/82 Pulse Oximetry 100 100 98 Oxygen Delivery Room Air Oxygen Flow Rate Fraction of Inspired Oxygen 21 12/15/23 08:00 12/15/23 10:00 12/15/23 08:00 Temperature Pulse Rate 117 H 116 H Respiratory Rate Blood Pressure Pulse Oximetry 98 Oxygen Delivery Nasal Cannula Oxygen Flow Rate 2 Fraction of Inspired Oxygen 12/15/23 12:00 12/15/23 12:00 12/15/23 12:00 Temperature 36.6 C Pulse Rate 111 H 111 H Respiratory Rate 18 Blood Pressure 133/77 Pulse Oximetry 95 95 Oxygen Delivery Nasal Cannula Oxygen Flow Rate 2 Fraction of Inspired Oxygen Exam Const: General: cooperative, acute distress mild, ill appearing, tired appearing and uncomfortable HENMT: Head: normal to inspection, normocephalic and atraumatic Eyes: General: appearance normal, both eyes and all related structures Neck: Neck: normal visual inspection, full ROM and no lymphadenopathy Resp: Auscultation: diminished lung sounds Cardio: Rate: regular rate Rhythm: regular rhythm Heart sounds: Other heart sounds present Other: Gallop GI: Inspection: normal to inspection and non-distended GI Palp: Yes abdominal tenderness, Yes Soft to palpation, Yes Tenderness to palpation present (GI), No Guarding due to palpation present (GI) and No Rigid due to palpation Skin: General skin exam: normal color and no rashes or lesions noted Neuro: General: patient oriented x3 and CN's II-XI intact bilaterally Extrem: General: normal to inspection and full ROM Results Labs and Meds 12/14/23 22:28 12/15/23 06:43 Lab results: Cardiac Enzymes 12/14/23 12/15/23 12/15/23 Range/Units 22:28 02:25 04:15 AST 123 H 229 H (17-59) U/L Troponin I 0.016 0.047 H* D (0.000-0.034) ng/mL 12/15/23 Range/Units 06:35 AST (17-59) U/L Troponin I 0.117 H* D (0.000-0.034) ng/mL Coagulation 12/14/23 Range/Units 22:28 PT 32.4 H (11.1-14.7) Seconds APTT 63.0 H (22.3-36.8) Seconds CBC 12/14/23 Range/Units 22:28 WBC 24.7 H (4.5-10.0) K/mm3 RBC 3.27 L (4.6-6.20) M/mm3 Hgb 10.5 L (14.0-18.0) g/dL Hct 29.6 L (42.0-52.0) % Plt Count 161 (150-375) k/mm3 Lymph # (Auto) Not Reportable Smith # (Auto) Not Reportable Eos # (Auto) Not Reportable Baso # (Auto) Not Reportable Comprehensive Metabolic Panel 12/14/23 12/15/23 12/15/23 Range/Units 22:28 04:15 06:43 Sodium 140 140 (137-145) mmol/L Potassium 3.7 4.6 (3.4-5.0) mmol/L Chloride 104 105 (98-107) mmol/L Carbon Dioxide 13 L 11 L (22-30) mmol/L BUN 21 H D 24 H (9-20) mg/dL Creatinine 1.80 H 2.30 H 2.40 H (0.7-1.3) mg/dL Glucose 150 H 46 L* (65-110) mg/dL Calcium 8.9 7.8 L (8.4-10.2) mg/dL AST 123 H 229 H (17-59) U/L ALT 44 55 H (6-50) U/L Alkaline Phosphatase 104 136 H (38-126) U/L Total Protein 8.0 7.0 (6.3-8.2) g/dL Albumin 4.4 3.7 (3.5-5.1) g/dL Intake and Output 12/14/23 12/15/23 12/15/23 23:59 07:59 15:59 Intake Total 50 4700 1361.7 Output Total 400 Balance 50 4300 1361.7 Intake: IV 50 4700 1361.7 Lactated Ringers 1,000 ml @ 999 3000 1000 mls/hr IV CONT .Q1H1M STA Rx#: [id number] Sodium Chloride 0.9% IV 1,000 1000 211.7 ml @ 100 mls/hr IV CONT .Q10H [facility]STOP[facility] Rx#:[id number] Doxycycline 100 mg/Ns 100 ml 100 100 100 mg In 100 ml @ 100 mls/hr IVPB Q12HR [facility] Rx#:[id number] Magnesium Sulf 2 gm/Water 50Ml 50 2 gm In 50 ml @ 25 mls/hr IVPB ONCE ONE Rx#:[id number] Piperacilln/Bryant 3.375GM/Ns50ml 50 50 50 3.375 gm In 50 ml @ 100 mls/hr IVPB Q6HR [facility] Rx#:[id number] Vancomycin 2,000 mg/Ns 500 ml 2 500 ,000 mg In 500 ml @ 250 mls/hr IVPB ONCE ONE Rx#:[id number] Output: Urine 400 Patient Weight 12/15/23 23:59 Weight 97.3 kg
[2023-12-15 14:31] LABS: Hemoglobin 7.1 g/dL (14.0-18.0); Immature Platelet Fraction Pct 17.9 % (0.9-11.2); Mean Corpuscular HGB Conc 36.2 g/dl (32-36); Mean Corpuscular Volume 88.3 fl (80-100); Platelet Count Result 32 k/mm3 (150-375); Red Blood Count 2.22 M/mm3 (4.6-6.20); Red Cell Distribution Width 15.9 % (11.5-14.5); White Blood Count 39.4 K/mm3 (4.5-10.0)
[2023-12-15 14:36] LABS: Lactic Acid Reflex 3.9 mmol/L (0.7-2.0)
[2023-12-15 14:38] LABS: Prothrombin Time 74.2 Seconds (11.1-14.7)
[2023-12-15 14:38] LABS: Glucose Point of Care 64 mg/dl (65-105)
[2023-12-15 14:43] LABS: Alanine Aminotransferase 349 U/L (6-50); Albumin Level 3.1 g/dL (3.5-5.1); Alkaline Phosphatase 79 U/L (38-126); Anion Gap 9 mmol/L (4-12); Bilirubin,Total 8.4 mg/dL (0.2-1.3); Blood Urea Nitrogen 31 mg/dL (9-20); Calcium 6.7 mg/dL (8.4-10.2); Carbon Dioxide 24 mmol/L (22-30); Chloride 107 mmol/L (98-107); Estimated CRCL calculation 44 ml/min; Estimated Glomerular Filt Rate 37; Glucose 98 mg/dL (65-110); Potassium 5.7 mmol/L (3.4-5.0); Sodium 140 mmol/L (137-145)
[2023-12-15 14:50] LABS: CRP 22.3 mg/dL (<1.0)
[2023-12-15 14:53] LABS: Aspartate Amino Transferase 1007 U/L (17-59)
[2023-12-15] MEDS: ALBUTEROL SULFATE NEB 2.5 MG/3 ML INH 10 MG INHALATION (15:01)
[2023-12-15] MEDS: DEXTROSE 20% 500 ML 25 ML IV CONT (15:08)
[2023-12-15] MEDS: CALCIUM GLUC 2,000 MG/NS 100ML 2,000 MG/100 ML BAG 100 MG IVPB (15:09)
[2023-12-15] MEDS: INSULIN HUMAN REGULAR (*BKC) 100 UNITS/ML 10 UNITS IV PUSH (15:09)
[2023-12-15] MEDS: CENTRAL LINE FLUSH 10 ML IV PUSH (15:24)
[2023-12-15] MEDS: SODIUM ZIRCONIUM CYCLOSILICATE 10 GM POWD.PACK PO (15:24)
[2023-12-15 15:29] LABS: Hematocrit 19.6 % (42.0-52.0)
[2023-12-15 15:31] LABS: Band Neutrophils Percent 13 % (0-6); Lymphocytes Absolute Manual 1.18 K/mm3 (1.1-4.5); Metamyelocytes Percent 2 %; Monocytes Absolute Manual 1.18 K/mm3 (0.1-0.90); Monocytes Percent Manual 3 % (3-9); Myelocytes Percent 1 %; Neutrophils Absolute Manual 35.85 K/mm3 (1.3-6.7); Neutrophils Percent Manual 78 % (46-73); Total Cells Counted 100
[2023-12-15 15:32] LABS: Platelet Estimate Decreased (Adequate); Schistocytes None Seen; Target Cells 1+
[2023-12-15 15:35] LABS: Ovalocytes 1+; Sickle Cells 1+
[2023-12-15 15:36] LABS: Poikilocytosis 1+
[2023-12-15 16:08] LABS: Glucose Point of Care 86 mg/dl (65-105)
[2023-12-15 16:15] LABS: Alveolar/Arterial O2 Gradient 103.6 mmHg; Base Excess ABG -1.5 mEq/l (+/-2.0); Fractional Inspired Oxygen 32 %; HCO3 ABG 24.3 mEq/l (22.0-26.0); Oxygen Content ABG 8.9 %vol (16.0-22.0); Oxygen Saturation ABG 93.2 % (95.0-100.0); PO2 ABG 70.7 mmHg (80.0-100.0); PO2 FiO2 Ratio Arterial Blood 2.21 %
[2023-12-15 16:16] LABS: Device NASAL CANNULA; Modified Allen's Test Pass; Oxyhemoglobin 87.2 % THb (90.0-100.0); Site Drawn RIGHT RADIAL; Total Hemoglobin 7.2 g/dL (12.0-18.0)
[2023-12-15 16:38] LABS: Fibrinogen 146 mg/dl (215-510)
[2023-12-15 16:39] LABS: Magnesium 1.9 mg/dL (1.6-2.3)
[2023-12-15 16:41] LABS: Eosinophil Urine None Seen % (None Seen); Urine Eos QC 2nd Tech Confirmed
[2023-12-15 16:51] LABS: D Dimer > 20.00 ug/mL (<0.48)
[2023-12-15 17:24] LABS: Reflex Lactic Acid Yes or No Add Lactic
[2023-12-15 19:47] LABS: Glucose Point of Care 128 mg/dl (65-105)
--- NOTE | 2023-12-15 21:37 | PC.NURSE ---
Addendum entered by Adolfo Chinchilla RN 12/15/23 21:38: Patient left 205712/15/23 Original Note: Patient to [facility], accompanied by Lulu BEE via [facility]. Report previously given. All belongings transferred with patient.
--- NOTE | 2023-12-27 11:33 | P.TS_ITS ---
Transfer Discharge Sum: Prov Provider Date of admission: 12/15/23 05:13 Primary care physician: Jone Marks MD Admitting clinician: Freddy Dinh MD Consults: 12/15/23 05:14 Consult to Physician Routine Comment: Consulting Provider: Jaymie Martinez Reason for consultation: Sepsis - R/O tyler Has provider been notified: Yes Consult to Physician Routine Comment: Consulting Provider: Estella Reyes Reason for consultation: Sepsis/Sicklecell Has provider been notified: Yes 12/15/23 07:26 Consult to Physician Routine Comment: Consulting Provider: Jaren Mcnair sales service professional/MD group to consult: NEPHROLOGY - Dr. Mcnair Reason for consultation: [place], Lactic acidosis, Sickle cell crisis Has provider been notified: Yes 12/15/23 09:09 Consult to Physician Routine Comment: Consulting Provider: Tommy Tarango sales service professional/MD group to consult: Gastroenterology Reason for consultation: Elevated LFTs, elevated bilirubin Has provider been notified: Yes 12/15/23 09:36 Consult to Physician Routine Comment: Consulting Provider: Rich Light sales service professional/MD group to consult: Cardiology Reason for consultation: EKG changes and elevated troponin Has provider been notified: Yes 12/15/23 10:12 Consult to Physician Routine Comment: Consulting Provider: sales service professional/MD group to consult: Heme/ONC - Dr Marks Reason for consultation: Sickle cell crisis Has provider been notified: No DS: Admitting Diagnosis Discharge Date 12/15/23 Admitting Diagnosis (1) Sepsis: Code(s): A41.9 - Sepsis, unspecified organism Status: Acute (2) Pneumonia: Code(s): J18.9 - Pneumonia, unspecified organism Status: Acute (3) Acidosis, lactic: Code(s): E87.20 - Acidosis, unspecified Status: Acute (4) Sickle cell anemia: Code(s): D57.1 - Sickle-cell disease without crisis Status: Chronic (5) Thrombocytosis: Code(s): D75.839 - Thrombocytosis, unspecified Status: Acute Transfer Discharge Sum: Med Medications Active and Home Medications: Home Medications folic acid 1 mg tablet 1 mg PO DAILY 02/16/19 [History Confirmed 12/15/23] methadone 10 mg tablet 10 mg PO TID 08/22/20 [History Confirmed 12/15/23] oxycodone-acetaminophen 10 mg-325 mg tablet 1 tablet PO BID PRN Pain, Moderate 08/22/20 [History Confirmed 12/15/23] hydroxyurea 500 mg capsule 500 mg PO QAM #30 caps 11/23/21 [Rx Confirmed 12/15/23] ibuprofen 800 mg tablet 800 mg PO PRN 12/30/22 [History Confirmed 12/15/23] warfarin 10 mg tablet 10 mg PO HS 06/22/23 [History Confirmed 12/15/23] warfarin 2 mg tablet 4 mg DAILY 12/15/23 [History Confirmed 12/15/23] Transfer Discharge Sum: Hosp Hospital Course Hospital course: This 38-year-old male patient with past medical history sickle cell disease, prior DVT, prior PE on chronic anticoagulation with Eliquis, smoker marijuana, medication noncompliance and who is treated for his sickle cell with methadone an oxy: Known by Dr. Marks, presented to the emergency room last evening with complaints of having pain all over and believing he was in crisis and was subsequently admitted to ICU this morning with lactic acidosis. Patient was r ecently hospitalized here at this facility for sickle cell crisis and discharged home on December 12, 2023. (1) Sepsis: Code(s): A41.9 - Sepsis, unspecified organism Status: Acute Assessment and Plan: * Patient meets sepsis criteria by presentation of vital signs, lactic acidosis and bandemia. * Blood cultures pending. * Continue vancomycin, Zosyn, doxycycline * Continue to trend labs and vital signs. * Most likely source respiratory versus cholecystitis versus choledocholithiasis versus sickle cell crisis(2) Pneumonia: Code(s): J18.9 - Pneumonia, unspecified organism Status: Acute Assessment and Plan: * As visualized by emergency room provider. * Pending final read official imaging. * Continue antibiotics of vancomycin, doxycycline and Zosyn. * Supportive care * (3) Sickle cell anemia: Code(s): D57.1 - Sickle-cell disease crisis Status: Chronic Assessment and Plan: Chronic anemia, upon arrival hemoglobin and hematocrit at 10.5 and 29.6 Hemoglobin dropped to 7.1 MONITOR HEMOGLOBIN Q.6 HOURS Transfuse p.r.n. (4) Acidosis, lactic: Code(s): E87.20 - Acidosis, unspecified Status: Acute Assessment and Plan: * Remarkably elevated lactic acid upon arrival at 9.8, trending down to 8.4. * Continue IV fluids * Continue to trend lactic acid. (5) Elevated troponin: Code(s): R79.89 - Other specified abnormal findings of blood chemistry Status: Acute Assessment and Plan: * Suspect demand ischemia. * Patient to be anticoagulated with Lovenox 1 milligram/kilogram. * Telemetry * Continue to trend troponins * P.r.n. pain medication (6) Elevated liver enzymes: Code(s): R74.8 - Abnormal levels of other serum enzymes Status: Acute Assessment and Plan: * Acutely elevated with increasing bilirubin from 3.8-6.0 during the time patient was in the emergency room. * Patient also with increasing transaminases. * CT abdomen and pelvis appreciated cholelithiasis without any overt cholecystitis. * General surgery is consulted. * Continue to trend labs. * Right upper quadrant ultrasound is ordered. (7) Sickle cell pain crisis: Code(s): D57.00 - Hb-SS disease with crisis, unspecified Status: Acute Assessment and Plan: * Retic count 26.8. However remainder of physical exam is consistent with sickle cell crisis. * Continue pain medications of Dilaudid. * Monitor CBC and retic count(8) Acute kidney injury: Code(s): N17.9 - Acute kidney failure, unspecified Status: Acute Assessment and Plan: * Likely due to sickle cell and dehydration * Continue IV fluids of normal saline at 100 mL/hour. * Continue to trend labs and vital signs. Patient condition is guarded, monitor patient closely in ICU Consult centrifugal casting machine operator, centrifugal casting machine operator called [facility], transfer patient to [facility] for evaluation and managements Time Spent with Patient Time attestation: Total time spent providing and/or coordinating transfer services:
== END 2023-12-15 20:58 | disposition short-term general hospital (02) | DRG 871 ==
LOC: ANHED 12-15 05:12 → ANHICU 12-15 06:04
PROVIDERS: Internal Medicine; Internal Medicine Nephrology; Nurse Practitioner Adult Health; Admitting Provider Internal Medicine; Emergency Provider Emergency Medicine; PCP Internal Medicine Hematology & Oncology; Visit Provider Hospitalist
DX: A41.9 Sepsis, unspecified organism (principal); D57.00 Hb-SS disease with crisis, unspecified; J18.9 Pneumonia, unspecified organism; K80.00 Calculus of gallbladder with acute cholecystitis without obstruction; I24.89 Other forms of acute ischemic heart disease; N17.9 Acute kidney failure, unspecified; R65.20 Severe sepsis without septic shock; E86.0 Dehydration; R74.8 Abnormal levels of other serum enzymes; Z79.01 Long term (current) use of anticoagulants; Z86.718 Personal history of other venous thrombosis and embolism; Z86.711 Personal history of pulmonary embolism; Z91.148 Patient's other noncompliance with medication regimen for other reason
CPT/HCPCS: 36415; 36430; 36569; 36600; 71045; 71260; 74177; 76705; 76775; 80053; 80307; 81001; 81050; 82550; 82565; 82570; 82805; 82948; 83605; 83690; 83735; 83874; 83880; 84100; 84156; 84300; 84439; 84443; 84480; 84484; 84540; 85025; 85046; 85055; 85380; 85384; 85610; 85730; 85999; 86140; 86900; 86901; 87040; 87077; 87181; 87641; 93005; 94640; 96365; 96366; 96367; 96375; 99285; A9270; C1751; J0132; J0613; J1170; J1200; J1650; J1815; J1885; J2405; J2543; J3370; J3475; J7030; J7060; J7070; J7120; P9017; Q9967

== ENCOUNTER 2024-06-01 09:24 | Inpatient (IN) | payer MEDICARE, MEDICAID, SELFPAY ==
[2024-06-01] VITALS (8 sets, daily range): BP systolic 105–125; BP diastolic 58–80; PULSE 71–114; RESP 16–20; TEMP 36.8–37.2; O2SAT 94–99; BMI 31.4
--- NOTE | ~2024-06-01 | CT_ITS ---
EXAMINATION: CTA chest PE protocol DATE: 06/01/2024 12:11 INDICATION: Left chest and rib pain. Influenza A. TECHNIQUE: Computed tomography (CT) pulmonary angiogram of the chest was performed with 100 mL Omnipa que-350 intravenous contrast. Additional 3D reconstructions utilizing coronal maximum intensity proje ction (MIP) were performed. The dose-length product was 487.30 mGy-cm. COMPARISON: 12/15/2023 FINDINGS: There is a central pulmonary arterial filling defect in the anterior segmental pulmonary artery of th e right upper lobe. No other pulmonary emboli. Groundglass and linear opacities with associated volum e loss in the bilateral lower lobes consistent with atelectasis. Additional linear bands of discoid a telectasis at the basilar right middle lobe and lingula. No pulmonary edema or pleural effusion. Hear t size is normal. No evident right heart strain. No pericardial effusion. Thoracic aorta is normal in caliber with no dissection. Multiple small nodular soft tissue densities interspersed with fat in th e anterior mediastinum consistent with thymic hyperplasia. No pathologically enlarged thoracic lympha denopathy. Very small calcified gallstone in the dependent aspect of the normal gallbladder. Subcenti meter cyst at the upper pole the left kidney. Very small partially calcified spleen suggestive of chr onic infarct. There is diffuse sclerosis of the bones with increased cavitation in the thoracic verte bral endplates. This along with the infarcted spleen are highly suggestive of sickle cell disease. IMPRESSION: 1. Single pulmonary embolism in the anterior segmental pulmonary artery of the right upper lobe. No e vident right heart strain. Dr. Washington discussed these findings with Dr. Beaulieu at 12:22 PM. 2. Moderate atelectasis in the bilateral lung bases. 3. 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 Constellation of findings would be most consistent with sequela of sickle cell disease. 4. Tiny gallstone. Reviewed, dictated and finalized at location A. L BATTERY PLATE ASSEMBLER IMPRESSION: 1. Single pulmonary embolism in the anterior segmental pulmonary artery of the right upper lobe. No evident right heart strain. Dr. Washington discussed these f indings with Dr. Beaulieu at 12:22 PM. 2. Moderate atelectasis in the bilateral lung bases. 3. 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 Constel lation of findings would be most consistent with sequela of sickle cell disease . 4. Tiny gallstone.
--- NOTE | ~2024-06-01 | US_ITS ---
EXAMINATION: US venous doppler [facility] DATE: 06/01/2024 21:07 INDICATION: Pulmonary embolism, lower limb pain. TECHNIQUE: Grayscale images without and with compression and Doppler images of the bilateral lower ex tremity veins were obtained. COMPARISON: None FINDINGS: The right common femoral vein, profunda (deep) femoral vein, femoral vein, popliteal vein, peroneal v ein, posterior tibial veins, gastrocnemius vein, and greater saphenous vein are patent. The left common femoral vein, profunda (deep) femoral vein, femoral vein, popliteal vein, peroneal v ein, posterior tibial veins, gastrocnemius vein, and greater saphenous vein are patent. IMPRESSION: Patent bilateral lower extremity veins. No evidence of deep venous thrombosis. Reviewed, dictated and finalized at location K. PLATE STAMPER
--- NOTE | ~2024-06-01 | XR_ITS ---
Clinical Indication: Cough PA and lateral views of the chest: Comparison: 12/15/2023 Findings: There is discoid left basilar atelectasis or scarring. Right lung clear. Cardiomediastinal silhouette is within normal limits. Bones and soft tissues are unremarkable. Impression: Discoid left basilar atelectasis or scarring, otherwise clear lungs. Reviewed, dictated and finalized at location . PLACEMENT OFFICER Impression: Discoid left basilar atelectasis or scarring, otherwise clear lungs.
--- NOTE | 2024-06-01 10:12 | ECG_ITS ---
Test Date: 2024-06-01 10:39:33 Measurements Intervals [place] Rate: 90 P: 19 NE: 158 QRS: 17 QRSD: 94 T: 4 QT: 347 QTc: 426 Interpretive Statements SINUS RHYTHM NONSPECIFIC ST-T WAVE ABNORMALITY- ANTEROLAT/INF LEADS BASELINE ARTIFACT- I, II, AVR BORDERLINE ECG Compared to ECG 12/15/2023 04:23:14 HEART RATE HAS DECREASED POSSIBLE ISCHEMIA NO LONGER PRESENT Electronically Signed On 06-01-2024 11:09:32 RESISTANCE WELDER by Ricky Modi D.O.
--- NOTE | 2024-06-01 10:15 | ED.URI ---
HPI - URI/Sore Throat General Chief Complaint: Upper Respiratory Infection <Leti Beaulieu PA-C - Last Filed: 06/01/24 19:24> Stated Complaint: URI symptoms <Leti Beaulieu PA-C - Last Filed: 06/01/24 19:24> Time Seen by Provider: 06/01/24 09:46 <ZAINAB Samaniego Last Filed: 06/01/24 19:24> Source: patient and old records reviewed <Leti Beaulieu PA-C - Last Filed: 06/01/24 19:24> Mode of arrival: ambulatory <Leti Beaulieu PA-C - Last Filed: 06/01/24 19:24> Limitations: no limitations <ZAINAB Samaniego Last Filed: 06/01/24 19:24> History of Present Illness HPI Narrative: Patient is a 39-year-old male who presents the ED with report chest pain and URI symptoms. Patient reports he has had a productive cough for the last 1 week. Unknown fevers. No known sick contacts. Yesterday into today, began having pain throughout his left-sided ribs and chest. Patient has had history of sickle cell disease. Feels he is having pain crisis. Consistent with previous pain crisises. Is prescribed methadone 10 mg t.i.d. as well as oxycodone 10/325 b.i.d. p.r.n.. Has not taken anything for pain today. Did take these medications yesterday without improvement. Patient reports mild shortness breath and pain with deep inspiration. States he does have history of previous blood clots, but has been off of his warfarin since January when he had a prolonged hospitalization. States he was supposed to have blood work last month before being restarted on warfarin, but has not had this performed yet. <ZAINAB Samaniego Last Filed: 06/01/24 19:24> Related Data Home Medications: Home Medications ?Medication ?Instructions ?Recorded ?Confirmed ?Last Taken ?Type folic acid 1 mg tablet 1 mg PO DAILY 02/16/19 06/01/24 12/14/23 History methadone 10 mg tablet 10 mg PO TID 08/22/20 06/01/24 12/08/23 03:00 History oxycodone-acetaminophen 10 mg-325 1 tablet PO BID PRN Pain, Moderate 08/22/20 06/01/24 12/14/23 History mg tablet ibuprofen 800 mg tablet 800 mg PO PRN 12/30/22 06/01/24 1 Day Ago History ~12/29/22 warfarin 10 mg tablet 10 mg PO HS 06/22/23 06/01/24 12/14/23 History warfarin 2 mg tablet 4 mg PO DAILY 12/15/23 06/01/24 12/13/22 History <Leti Beaulieu PA-C - Last Filed: 06/01/24 19:24> Allergies/Adverse Reactions: Allergies Allergy/AdvReac Type Severity Reaction Status Date / Time Fish Containing Products Allergy Mild Itching Verified 06/01/24 09:54 <Leti Beaulieu PA-C - Last Filed: 06/01/24 19:24> Review of Systems Review of Systems: All systems reviewed & are unremarkable except as noted in HPI. <Leti Beaulieu PA-C - Last Filed: 06/01/24 19:24> All systems reviewed & are unremarkable except as noted in HPI and below <Leti Beaulieu PA-C - Last Filed: 06/01/24 19:24> [facility] Past Medical History Medical History: Medical History Chronic pain syndrome Secondary to sickle cell disease. Noncompliance History of noncompliance with anticoagulation and hydroxyurea. Deep venous thrombosis Chronic anticoagulation Due to history of DVT and pulmonary embolism. Acute chest syndrome Sickle cell disease, type SC Pulmonary embolism Chronic narcotic use On methadone with oxycodone for chronic pain related to sickle cell disease. <Leti Beaulieu PA-C - Last Filed: 06/01/24 19:24> Surgical History Surgical History: Surgical History History of hand surgery Tendon surgery on right 5th finger. <Leti Beaulieu PA-C - Last Filed: 06/01/24 19:24> Family History Family History: Family History Grandparent Diabetes mellitus Acute myocardial infarction Sibling Asthma Sibling Asthma Mother Hypertension Sickle cell trait Son Sickle cell trait Daughter Sickle cell trait Grandparent No problems noted. Other Diabetes mellitus Father Sickle cell trait <Leti Beaulieu PA-C - Last Filed: 06/01/24 19:24> Social History Social History: Social History Social History: The patient lives in [place] with his family. He is on disability due to sickle cell disease and chronic pain. He is a lifelong nonsmoker and denies alcohol and illicit substance abuse. He uses marijuana to help with pain, states this happens 1-2x per year. He designates Jolly Zuniga (mother) or Keyla Ashkan (friend) as his surrogate decision makers and he wishes to be a full code. Smoking status: Never smoker Second hand tobacco smoke exposure: No Additional smoking assessment comments: Smokes marijuana when pain meds unavailable. Alcohol intake: never Substance use: never Substance use type: marijuana Other substance usage details: For back when he doesn't have any pain meds available. Last use: 12/28/22 Do You Feel Safe in your Home?: Yes Lack of Transportation: No Lack of Food: Never True Current Housing: I Have Housing Concerned About Future Housing: No Difficulty Paying Gas/Electric Bills: No Difficulty Paying for Meds: No Currently Unemployed: No Education: High School Diploma/GED Difficulty w/ Childcare or Family Care: No Living arrangements: with family Occupation/Education: other Spiritual care concerns: No Agree to blood products: Yes <Leti Beaulieu PA-C - Last Filed: 06/01/24 19:24> Exam Narrative: GENERAL: Mildly uncomfortable appearing, obese with BMI of 31.4, non-toxic, in no acute distress. HEAD: Normocephalic, atraumatic. RESPIRATORY: Airway patent, respirations nonlabored. Clear to auscultation bilaterally, no rales, rhonchi, wheezing. No significant focal lung sounds. No wheezing. No distress. CARDIOVASCULAR: Regular rate and rhythm without murmurs, rubs, or gallops. ABDOMINAL: Soft, nontender, nondistended. Normoactive BS. MUSCULOSKELETAL: Moves all extremities. No gross deformities. No significant peripheral edema. SKIN: Warm, dry, normal color. NEURO: A&O X3. Speech clear. Cranial nerves II-XII grossly intact. Steady gait. No ataxic movements. PSYCHIATRIC: Appropriate mood and affect. Normal interaction. <Leti Beaulieu PA-C - Last Filed: 06/01/24 19:24> Course CHALK MACHINE OPERATOR/PA Physician Supervision This visit was performed by both a physician and an APC. I performed all aspects of the MDM as documented. <Robin Deshpande MD - Last Filed: 06/03/24 11:28> Vital Signs Vital signs: Vital Signs Temperature 98.3 F 06/01/24 09:50 Pulse Rate 91 06/01/24 09:50 Respiratory Rate 20 06/01/24 09:50 Blood Pressure 105/64 06/01/24 09:50 Pulse Oximetry 97 06/01/24 09:50 Oxygen Delivery Room Air 06/01/24 09:50 Temperature 97.7 F 06/03/24 06:00 Pulse Rate 69 06/03/24 07:40 Respiratory Rate 20 06/03/24 07:40 Blood Pressure 122/67 06/03/24 06:00 Pulse Oximetry 97 06/03/24 07:28 Oxygen Delivery Nasal Cannula 06/03/24 07:28 Oxygen Flow Rate 1 06/03/24 07:28 <Leti Beaulieu PA-C - Last Filed: 06/01/24 19:24> Vital Signs Temperature 98.3 F 06/01/24 09:50 Pulse Rate 91 06/01/24 09:50 Respiratory Rate 20 06/01/24 09:50 Blood Pressure 105/64 06/01/24 09:50 Pulse Oximetry 97 06/01/24 09:50 Oxygen Delivery Room Air 06/01/24 09:50 Temperature 97.7 F 06/03/24 06:00 Pulse Rate 69 06/03/24 07:40 Respiratory Rate 20 06/03/24 07:40 Blood Pressure 122/67 06/03/24 06:00 Pulse Oximetry 97 06/03/24 07:28 Oxygen Delivery Nasal Cannula 06/03/24 07:28 Oxygen Flow Rate 1 06/03/24 07:28 <Robin Deshpande MD - Last Filed: 06/03/24 11:28> MDM - URI/Sore Throat MDM Narrative Medical decision making narrative: Patient presented to ED with URI sx's x1 week, productive cough, now with worsening pain in chest/ribs since yesterday. Hx of sickle cell disease, concerned he is having pain crisis. States pain consistent with previous pain crises. Vital signs are stable upon arrival. CBC with marked leukocytosis of 33.7. Neutrophil predominance. No bandemia. Hemoglobin today is 9.7. Hematocrit 28.1. Appears fairly consistent with previous records. Platelets are within normal range. Reticulocyte count 0.17. LDH 265. CMP unremarkable. Stable electrolytes and kidney function. Influenza A testing positive. Consistent with clinical picture. CXR without focal consolidation. Showing atelectasis/scarring. EKG with some nonspecific ST changes, somewhat diffuse T-wave inversions. This does appear consistent with previous records. No acute STEMI. Baseline troponin is undetectable. D-dimer did result elevated 2.42. CTA of chest obtained and does show evidence of RUL segmental PE. No evidence of right heart strain. Does have previous history of blood clots. Patient was previously on warfarin. States he has been off of this for several months, since his most recent hospitalization. Unclear why. Lovenox started in the ED. Patient has required multiple doses of IV pain medicine without improvement of pain crises. Will be admitted for further evaluation of influenza, pe/bridging of anticoagulation, pain control. Will start Tamiflu. Discussed case with [facility] hospitalist, accepted patient for admission. Patient in agreement with plan and admission. <Leti Beaulieu PA-C - Last Filed: 06/01/24 19:24> Medical Records Attestation: I reviewed the patient's medical records. <Leti Beaulieu PA-C - Last Filed: 06/01/24 19:24> Lab Data Attestation: I reviewed the patient's lab results. <Leti Beaulieu PA-C - Last Filed: 06/01/24 19:24> Result diagrams: 06/02/24 05:31 06/02/24 05:31 <Leti Beaulieu PA-C - Last Filed: 06/01/24 19:24> Labs: Lab Results 06/01/24 06/01/24 06/02/24 Range/Units 09:47 10:42 05:31 WBC 33.7 H 27.2 H (4.5-10.0) K/mm3 RBC 3.10 L 2.69 L (4.6-6.20) M/mm3 Hgb 9.7 L 8.3 L (14.0-18.0) g/dL Hct 28.1 L 23.7 L (42.0-52.0) % MCV 90.6 88.1 (80-100) fl MCH 31.3 30.9 (26-34) pg MCHC 34.5 35.0 (32-36) g/dl RDW 15.2 H 15.5 H (11.5-14.5) % Plt Count 348 D 308 (150-375) k/mm3 MPV 10.5 H 10.3 (7.4-10.4) fl Immature Gran % (Auto) 0.9 H (0-0.5) % Neut % (Auto) 81.0 H (45.5-73.1) % Lymph % (Auto) 6.2 L (18.3-44.2) % [place] % (Auto) 11.7 H (2.6-8.5) % Eos % (Auto) 0.0 (0-4.4) % Baso % (Auto) 0.2 (0.2-1.2) % Lymph # (Auto) 2.09 (0.9-3.2) K/mm3 [place] # (Auto) 3.9 H (0.1-0.6) K/mm3 Eos # (Auto) 0.0 (0-0.3) K/mm3 Baso # (Auto) 0.1 (0.0-0.1) K/mm3 Abs Immat Gran (auto) 0.30 H (0.00-0.031) K/mm3 Absolute Neuts (auto) 27.3 H (1.3-6.7) K/mm3 Absolute Nucleated RBC 0.060 H (0.0-0.012) K/mm3 Nucleated RBC % 0.2 (0.0-0.2) % Absolute Retic 0.17 H (0.02-0.10) 10^6/uL Percent Retic 5.53 H (0.7-4.3) % Immature Retic Fraction 27.0 H (3.0-15.9) % Retic Hgb Content 28.9 (28.2-36.6) pg PT 15.4 H (11.1-14.7) Seconds INR 1.2 APTT 30.0 (22.3-36.8) Seconds D-Dimer 2.42 H (<0.48) ug/mL Sodium 144 142 (137-145) mmol/L Potassium 3.8 3.9 (3.4-5.0) mmol/L Chloride 107 108 H (98-107) mmol/L Carbon Dioxide 25 23 (22-30) mmol/L Anion Gap 12 11 (4-12) mmol/L BUN 8 L D 7 L (9-20) mg/dL Creatinine 0.80 0.76 (0.7-1.3) mg/dL Estim Creat Clear Calc 125 131 ml/min Estimated GFR > 60 > 60 (59 - ) Glucose 120 H 103 (65-110) mg/dL Calcium 9.3 8.7 (8.4-10.2) mg/dL Magnesium 2.4 H 2.1 (1.6-2.3) mg/dL Total Bilirubin 1.3 1.5 H (0.2-1.3) mg/dL AST 32 20 (17-59) U/L ALT 18 14 (6-50) U/L Alkaline Phosphatase 78 79 (38-126) U/L Lactate Dehydrogenase 265 H (120-246) U/L Troponin I < 0.012 (0.000-0.034) ng/mL Total Protein 9.0 H 8.0 (6.3-8.2) g/dL Albumin 4.3 3.8 (3.5-5.1) g/dL Influenza A (RT-PCR) Positive A (Negative) Influenza B (RT-PCR) Negative (Negative) RSV (RT-PCR) Negative (Negative) SARS-CoV-2 RNA (RT-PCR) Negative (Negative) <Leti Beaulieu PA-C - Last Filed: 06/01/24 19:24> Lab Results 06/01/24 06/01/24 06/02/24 Range/Units 09:47 10:42 05:31 WBC 33.7 H 27.2 H (4.5-10.0) K/mm3 RBC 3.10 L 2.69 L (4.6-6.20) M/mm3 Hgb 9.7 L 8.3 L (14.0-18.0) g/dL Hct 28.1 L 23.7 L (42.0-52.0) % MCV 90.6 88.1 (80-100) fl MCH 31.3 30.9 (26-34) pg MCHC 34.5 35.0 (32-36) g/dl RDW 15.2 H 15.5 H (11.5-14.5) % Plt Count 348 D 308 (150-375) k/mm3 MPV 10.5 H 10.3 (7.4-10.4) fl Immature Gran % (Auto) 0.9 H (0-0.5) % Neut % (Auto) 81.0 H (45.5-73.1) % Lymph % (Auto) 6.2 L (18.3-44.2) % [place] % (Auto) 11.7 H (2.6-8.5) % Eos % (Auto) 0.0 (0-4.4) % Baso % (Auto) 0.2 (0.2-1.2) % Lymph # (Auto) 2.09 (0.9-3.2) K/mm3 [place] # (Auto) 3.9 H (0.1-0.6) K/mm3 Eos # (Auto) 0.0 (0-0.3) K/mm3 Baso # (Auto) 0.1 (0.0-0.1) K/mm3 Abs Immat Gran (auto) 0.30 H (0.00-0.031) K/mm3 Absolute Neuts (auto) 27.3 H (1.3-6.7) K/mm3 Absolute Nucleated RBC 0.060 H (0.0-0.012) K/mm3 Nucleated RBC % 0.2 (0.0-0.2) % Absolute Retic 0.17 H (0.02-0.10) 10^6/uL Percent Retic 5.53 H (0.7-4.3) % Immature Retic Fraction 27.0 H (3.0-15.9) % Retic Hgb Content 28.9 (28.2-36.6) pg PT 15.4 H (11.1-14.7) Seconds INR 1.2 APTT 30.0 (22.3-36.8) Seconds D-Dimer 2.42 H (<0.48) ug/mL Sodium 144 142 (137-145) mmol/L Potassium 3.8 3.9 (3.4-5.0) mmol/L Chloride 107 108 H (98-107) mmol/L Carbon Dioxide 25 23 (22-30) mmol/L Anion Gap 12 11 (4-12) mmol/L BUN 8 L D 7 L (9-20) mg/dL Creatinine 0.80 0.76 (0.7-1.3) mg/dL Estim Creat Clear Calc 125 131 ml/min Estimated GFR > 60 > 60 (59 - ) Glucose 120 H 103 (65-110) mg/dL Calcium 9.3 8.7 (8.4-10.2) mg/dL Magnesium 2.4 H 2.1 (1.6-2.3) mg/dL Total Bilirubin 1.3 1.5 H (0.2-1.3) mg/dL AST 32 20 (17-59) U/L ALT 18 14 (6-50) U/L Alkaline Phosphatase 78 79 (38-126) U/L Lactate Dehydrogenase 265 H (120-246) U/L Troponin I < 0.012 (0.000-0.034) ng/mL Total Protein 9.0 H 8.0 (6.3-8.2) g/dL Albumin 4.3 3.8 (3.5-5.1) g/dL Influenza A (RT-PCR) Positive A (Negative) Influenza B (RT-PCR) Negative (Negative) RSV (RT-PCR) Negative (Negative) SARS-CoV-2 RNA (RT-PCR) Negative (Negative) <Robin Deshpande MD - Last Filed: 06/03/24 11:28> Imaging Data Attestation: I personally reviewed and interpreted this imaging study as follows: <Leti Beaulieu PA-C - Last Filed: 06/01/24 19:24> Radiologist's impression: ITS Impressions Chest X-Ray 06/01/24 10:23 Impression: Discoid left basilar atelectasis or scarring, otherwise clear lungs. Chest CTA 06/01/24 12:12 IMPRESSION: 1. Single pulmonary embolism in the anterior segmental pulmonary artery of the right upper lobe. No evident right heart strain. Dr. Washington discussed these findings with Dr. Beaulieu at 12:22 PM. 2. Moderate atelectasis in the bilateral lung bases. 3. 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 Constellation of findings would be most consistent with sequela of sickle cell disease. 4. Tiny gallstone. <Leti Beaulieu PA-C - Last Filed: 06/01/24 19:24> ECG Data EKG #1: Attestation: I personally reviewed and interpreted this ECG as follows: <Leti Beaulieu PA-C - Last Filed: 06/01/24 19:24> ECG completion date: 06/01/24 <Leti Beaulieu PA-C - Last Filed: 06/01/24 19:24> ECG completion time: 10:39 <ZAINAB Samaniego Last Filed: 06/01/24 19:24> Prior ECG tracings: available for review (consistent with previous records) <Leti Beaulieu PA-C - Last Filed: 06/01/24 19:24> EKG Interpretation: normal rate (90), sinus rhythm and non-specific ST changes <Leti Beaulieu PA-C - Last Filed: 06/01/24 19:24> Discharge Plan Discharge Clinical Impression: Sickle-cell disease with pain, Influenza A Pulmonary embolism Qualifiers: Pulmonary embolism type: unspecified Chronicity: acute Acute cor pulmonale presence: without acute cor pulmonale Qualified Code(s): I26.99 - Other pulmonary embolism without acute cor pulmonale <Leti Beaulieu PA-C - Last Filed: 06/01/24 19:24> Patient Disposition: Still a Patient <ZAINAB Samaniego Last Filed: 06/01/24 19:24> Condition: Stable <ZAINAB Samaniego Last Filed: 06/01/24 19:24>
[2024-06-01 10:30] LABS: Influenza A QL RT-PCR Positive (Negative); Influenza B QL RT-PCR Negative (Negative); RSV RNA, RT-PCR Negative (Negative); SARS-CoV-2 RNA PCR Negative (Negative)
[2024-06-01 10:51] LABS: Basophils Absolute Auto 0.1 K/mm3 (0.0-0.1); Basophils Percent Auto 0.2 % (0.2-1.2); Hematocrit 28.1 % (42.0-52.0); Hemoglobin 9.7 g/dL (14.0-18.0); Immature Granulocyte Percent A 0.9 % (0-0.5); Lymphocytes Absolute Auto 2.09 K/mm3 (0.9-3.2); Lymphocytes Percent Auto 6.2 % (18.3-44.2); Mean Corpuscular HGB Conc 34.5 g/dl (32-36); Mean Corpuscular Hemoglobin 31.3 pg (26-34); Mean Corpuscular Volume 90.6 fl (80-100); Mean Platelet Volume 10.5 fl (7.4-10.4); Monocytes Absolute Auto 3.9 K/mm3 (0.1-0.6); Monocytes Percent Auto 11.7 % (2.6-8.5); Neutrophils Absolute Auto 27.3 K/mm3 (1.3-6.7); Nucleated Red Blood Cells Perc 0.2 % (0.0-0.2); Platelet Count Result 348 k/mm3 (150-375); Red Cell Distribution Width 15.2 % (11.5-14.5); Reticulocyte Hemoglobin Conten 28.9 pg (28.2-36.6); Reticulocyte Percent 5.53 % (0.7-4.3); Reticulocytes Absolute 0.17 10^6/uL (0.02-0.10); White Blood Count 33.7 K/mm3 (4.5-10.0)
[2024-06-01] MEDS: SODIUM CHLORIDE 0.9% IV 1,000 ML 999 ML IV CONT ×2 (10:53→12:56)
[2024-06-01] MEDS: ONDANSETRON INJ 4 MG/2 ML VIAL IV PUSH (10:54)
[2024-06-01] MEDS: HYDROmorphone HCL INJ (*CRX) 1 MG/ML SYR IV PUSH ×4 (10:55→18:53)
[2024-06-01 11:07] LABS: INR 1.2; Lactate Dehydrogenase 265 U/L (120-246); Magnesium 2.4 mg/dL (1.6-2.3); Prothrombin Time 15.4 Seconds (11.1-14.7)
[2024-06-01 11:09] LABS: Alanine Aminotransferase 18 U/L (6-50); Albumin Level 4.3 g/dL (3.5-5.1); Alkaline Phosphatase 78 U/L (38-126); Anion Gap 12 mmol/L (4-12); Aspartate Amino Transferase 32 U/L (17-59); Bilirubin,Total 1.3 mg/dL (0.2-1.3); Blood Urea Nitrogen 8 mg/dL (9-20); Calcium 9.3 mg/dL (8.4-10.2); Carbon Dioxide 25 mmol/L (22-30); Chloride 107 mmol/L (98-107); Estimated CRCL calculation 125 ml/min; Estimated Glomerular Filt Rate > 60; Glucose 120 mg/dL (65-110); Potassium 3.8 mmol/L (3.4-5.0); Sodium 144 mmol/L (137-145)
[2024-06-01 11:21] LABS: D Dimer 2.42 ug/mL (<0.48); Troponin I < 0.012 ng/mL (0.000-0.034)
--- OUTSIDE RECORDS SUMMARY | 2024-06-01 12:06 | XMS_ITS | Encounter Summary ---
Author Organization [facility] Address [address] [place] [address] Care Team Providers Care Loader Helper Name Role Phone Unavailable Primary Care Provider Unavailabl e Reason for Visit * Reason Comments Med Refill Encounter Details Date Type Department Care Team (Late Contact Info) Description 04/13/2022 Refill [facility] [address] [place] [address] Jone Marks MD [address] [place] [address] [address] [place] [phone] 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 ([facility]/HCC) Social History Tobacco Use Types Packs/Day Years Used Date Smoking Tobacco: Never Smokeless Tobacco: Never Alcohol Use Standard Drinks/Week Comments No 0 (1 standard drink = 0.6 oz pur e alcohol) Sex and Gender Information Value Date Recorded Sex Assigned at Not on file Legal Sex Male 1:04 PM CDT Gender Identity Not on file Sexual Orientation Not on file documented as of this encounter Plan of Treatment Upcoming Encounters Date Type Department Care Team (Late st Contact Info) Description 06/15/2024 Orders Only [facility] [address] [place] [address] [place] [address] [place] [address] [address] [address] [place] [phone] Other acute pulmonary embolism without acute cor pulmonale ([facility]/HCC) 07/20/2024 1:00 PM CDT Office Visit [facility] [address] [facility] [address] [place] [address] Jone Marks MD [address] [facility] [address] [place] [address] documented as of this encounter Visit Diagnoses Diagnosis 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
--- OUTSIDE RECORDS SUMMARY | 2024-06-01 12:06 | XMS_ITS | Clinical Summary ---
Author Organization [facility] Address [address] [place] [address] Care Team Providers Care Residential Direct Support Professional Name Role Phone Jone Marks MD Primary Care Provider Allergies Active Allergy Reactions Criticality Noted Date Comments Fish Containing Products Hives,Urticaria High 2015 Fried fish/has eaten shrimp without problems Shellfish Containing Products Hives High 05/07/2015 Medications folic acid (FOLVITE) 1 mg tablet Take 1 tablet (1 mg total) by mouth daily. 30 tablet 09/26/2017 Active oxyCODONE-aceta minophen (PERCOCET) 10-325 mg per tabletIndicatio ns:Pain Take 1 tablet by mouth every 6 (six) hours as needed for pain. 30 tablet 01/17/2018 Active methadone (DOLOPHINE) 10 mg tablet Take 1 tablet by mouth 2 (two) times a day Active warfarin (COUMADIN) 1.5 mg tablet Take 8 half tablet (12 mg total) by mouth Active ibuprofen (ADVIL,MOTRIN) 800 mg tablet Take 1 tablet (800 mg total) by mouth every 6 (six) hours as needed 08/30/2022 Active hydroxyurea (HYDREA) 500 mg capsule Take 1 capsule (500 mg total) by mouth daily 12/12/2017 Active hydroCHLOROthia zide (HYDRODIURIL) 25 mg tablet Take 1 tablet (25 mg total) by mouth daily 20 tablet 01/06/2024 Active Active Problems Problem Noted Date Diagnosed Date Drug-seeking behavior 02/23/2019 Acute pulmonary embolism 11/24/2018 Acute appendicitis with localized peritonitis Sickle cell crisis 09/24/2017 Other chest pain 09/24/2017 Chronic narcotic use 09/24/2017 Elevated serum creatinine 09/24/2017 Narcotic abuse 09/20/2017 Sickle cell pain crisis (CMS/HCC) 08/25/2017 Sickle cell anemia 08/23/2017 Opioid dependence 08/20/2011 Chronic pain 01/27/2010 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 Encounters Date Type Department Care Team Description 04/27/2024 11:00 AM MANAGEMENT SUPERVISOR - 04/27/2024 11:59 PM MANAGEMENT SUPERVISOR Hospital Encounter [facility] [address] [place], [place] [id number] Chronic kidney disease, stage 2 (mild); Essential (primary) hypertension Discharge Disposition: Discharge to home or self care from Last 3 Months Immunizations Immunization Administration Dates Next Due Influenza, Quadrivalent, Spl it, Preservative Free, Intramuscular 01/01/2019,01/16/2018 Influenza, Trivalent, IM (MDV) 01/31/2016,2014 Influenza, Trivalent, Preser vative Free, Intramuscular 01/23/2016,02/28/2015,02/08/2014,01/30 Surgical History Surgery Date Site/Laterality Comments FINGER SURGERY Medical History Medical History Date Comments Sickle cell anemia (HCC) Chronic pain syndrome Narcotic dependence (HCC) Deep vein thrombosis (CMS/HCC) (HCC) Family History Medical History Relation Name Comments Sickle cell trait Father Sickle cell trait Mother Arthritis Other Gout Other Relation Name Status Comments Father Mother Other Social History Tobacco Use Types Packs/Day Years Used Date Smoking Tobacco: Never Smokeless Tobacco: Never Alcohol Use Standard Drinks/Week Comments No 0 (1 standard drink = 0.6 oz pur e alcohol) Personal Safety Answer Date Recorded Have you ever been in or are you currently in a harmful physical or emotional relationship or is someone making you feel afraid or unsafe? Denies 01/06/2024 Sex and Gender Information Value Date Recorded Sex Assigned at Not on file Legal Sex Male 12:32 AM MANAGEMENT SUPERVISOR Gender Identity Not on file Sexual Orientation Not on file Obstetrics History Last Filed Vital Signs Vital Sign Reading Time Taken Comments Blood Pressure 115/80 01/06/2024 4:00 PM CDT Pulse 80 01/06/2024 4:00 PM CDT Temperature 36.6 C (97.8 F) 01/06/2024 9:42 AM CDT Respiratory Rate 17 01/06/2024 4:00 PM CDT Oxygen Saturation 100% 01/06/2024 4:00 PM CDT Inhaled Oxygen Concentration - - Weight 99.8 kg (220 lb) 01/06/2024 9:42 AM CDT Height 177.8 cm (5' 10 ) 01/25/2023 11:41 AM CDT Body Mass Index 31.57 01/25/2023 11:41 AM CDT Plan of Treatment Health Maintenance Due Date Last Done Comments Depression Screening 1983 Hepatitis C Screening 1983 Prostate Cancer Screening-PSA 1983 Varicella Vaccines (1 of 2 - 13+ 2-dose series) 1996 Hepatitis B Screening 2001 Regular Well Visit/Exam 18-64 2001 Pneumococcal vaccine <65 (1 of 2 - PCV) 2002 Zoster Vaccine (1 of 2) 2002 Influenza Vaccine (#1) 2023 0, 01/01/2019, 01/16/2018, Additional history exists Meningococcal B Vaccine (2 of 5 - Increased Risk Bexsero 3-dose series) 01/18/2024 12/21/2023 DTaP/Tdap/Td Vaccine (2 - Td or Tdap) 12/21/2033 12/22/2023 HPV Vaccines Aged Out No longer eligi ble based on patient's age to complete this topic Procedures Procedure Name Priority Date/Time Associated Diagnosis Comments US KIDNEY COMPLETE Schedule Routine, Read Routine (OP Routine) 04/27/2024 11:37 AM MANAGEMENT SUPERVISOR Chronic kidney disease, stage 2 (mild) Essential (primary) hypertension from Last 3 Months Results * US Kidney Complete (04/27/2024 11:37 AM MANAGEMENT SUPERVISOR) Anatomical Region Laterality Modality Kidney N/A Ultrasound 04/28/2024 9:47 AM MANAGEMENT SUPERVISOR Narrative 04/28/2024 9:51 AM MANAGEMENT SUPERVISOR EXAM DESCRIPTION: US KIDNEY COMPLETE REASON FOR STUDY: N18.2, I10 chronic kidney disease TECHNIQUE: Ultrasound of the kidneys and urinary bladder was performed with grayscale imaging. COMPARISON: None FINDINGS: RIGHT KIDNEY: The right kidney measures 10.6 cm in length. There is no hydronephrosis. There is normal cortical thickness and echogenicity. LEFT KIDNEY: The left kidney measures 11 cm in length. There is no hydronephrosis. There is normal cortical thickness and echogenicity. URINARY BLADDER: The urinary bladder, as visualized, appears unremarkable. OTHER: No other additional findings. IMPRESSION: Normal renal ultrasound. THIS IS AN ELECTRONICALLY VERIFIED FINAL REPORT 04/28/2024 9:51 AM - Electronically signed by Raphael Suárez M.D. LEONORA: LEONORA Report ID: [id number] Reading Location: [id number] Procedure Note Laurent Suárez MD - 04/28/2024 EXAM DESCRIPTION: US KIDNEY COMPLETE REASON FOR STUDY: N18.2, I10 chronic kidney disease TECHNIQUE: Ultrasound of the kidneys and urinary bladder was performedwith grayscale imaging. COMPARISON: None FINDINGS: RIGHT KIDNEY: The right kidney measures 10.6 cm in length. There is no hydronephrosis. There is normal cortical thickness and echogenicity. LEFT KIDNEY: The left kidney measures 11 cm in length. There is no hydronephrosis. There is normal cortical thickness and echogenicity. URINARY BLADDER: The urinary bladder, as visualized, appearsunremarkable. OTHER: No other additional findings. IMPRESSION: Normal renal ultrasound. THIS IS AN ELECTRONICALLY VERIFIED FINAL REPORT 04/28/2024 9:51 AM - Electronically signed by Raphael Suárez M.D. LEONORA: LEONORA Report ID: [id number] Reading Location: [id number] us Carlos Canseco MD IM US PROCEDURES Final Resul t from Last 3 Months Insurance [facility] Member Subscriber Plan / Payer (Ef fective 2019-Present) Name:Chang Craigdanielle Bart Relation to Subscriber:Self Name:Quan Downing Bart Payer ID:[id number] (NAIC) Group ID:Not on file Type:MEDICAID RISK OTHER Address: [address] [address] MEDICARE [facility] IDNY MEDICARE Advance Directives For more information, please contact: [phone] * Full Code (Latest Code Status on File) Date Activated Date Inactivated Comments 05/09/2018 9:27 PM 05/11/2018 9:40 PM * Full Code Date Activated Date Inactivated Comments 01/16/2018 2:17 AM 01/17/2018 2:50 PM * Full Code Date Activated Date Inactivated Comments 11/04/2017 7:42 PM 11/06/2017 3:25 PM * Full Code Date Activated Date Inactivated Comments 09/24/2017 1:39 AM 09/26/2017 1:54 PM * Full Code Date Activated Date Inactivated Comments 08/22/2017 10:46 PM 08/27/2017 2:44 PM Healthcare Agents on File Name Relationship Healthcare Agent [facility] p Communication Ya Lutherw Friend Health Care Agent Paulette Rios Mother Health Care Agent Care Teams Residential Direct Support Professional Relationship Specialty Start Date End Date Jone Marks MD [address] [address] [facility] - General 01/26/19
--- OUTSIDE RECORDS SUMMARY | 2024-06-01 12:06 | XMS_ITS | Encounter Summary ---
Author Organization [facility] [employer] [facility] Address [address] [place] [address] Care Team Providers Care Terrazzo Worker Apprentice Name Role Phone Unavailable Primary Care Provider Unavailabl e Encounter Details Date Type Department Care Team (Late st Contact Info) Description 08/21/2021 History & Physical [facility] Oncology and Hematology [facility] [address] [place] [address] Vonnie Portillo Social History Tobacco Use Types Packs/Day Years [...] Encounters Date Type Department Care Team (Late Contact Info) Description 06/15/2024 Orders Only [facility] Oncology and Hematology Chang [address] [place] [address] Jone Marks MD [address] [place] [address] Other acute pulmonary embolism without acute cor pulmonale (CMS/HCC) 07/20/2024 1:00 PM CDT Office Visit [facility] Oncology and Hematology [facility] [address] [place] [address] Jone Marks MD [address] [address] documented as of this encounter Visit Diagnoses Not on filedocumented in this encounter
--- OUTSIDE RECORDS SUMMARY | 2024-06-01 12:06 | XMS_ITS | Clinical Summary ---
Author Organization [facility] Address [address] [place] [address] Care Team Providers Care Armored Car Driver Name Role Phone Unavailable Primary Care Provider Unavailabl e Allergies No known active allergies Medications folic acid (FOLVITE) 1 MG tablet Take 1 mg by mouth in the morning. 03/12/2017 Active hydroxyurea (HYDREA) 500 MG capsule Take 500 mg by mouth every morning 12/12/2017 Active methadone (DOLOPHINE) 10 MG tablet Take 10 mg by mouth in the morning and 10 mg at noon and 10 mg in the evening. 12/03/2023 Active ibuprofen (ADVIL,MOTRIN) 800 MG tablet Take 800 mg by mouth 12/12/2017 Active oxyCODONE-aceta minophen (PERCOCET) 10-325 MG per tablet take 1 tablet by mouth every 4 hours as needed for pain Active polyethylene glycol (GLYCOLAX) 17 g packet Take 17 g by mouth at night if needed 12/29/2023 Active warfarin (COUMADIN) 10 MG tablet Take 10 mg by mouth in the morning. 06/19/2022 Active Active Problems No known active problems Encounters Date Type Department Care Team Description 04/14/2024 10:30 AM FUNERAL HOME MAKEUP ARTIST Office Visit [facility] Joann. [address] [place] [address] Carlos Canseco MD Chronic kidney disease, stage 2 (mild) (Primary Dx); Sickle cell nephropathy (HCC); Hypertension 04/13/2024 Documentation Only [facility] JoannRasheeda [address] [place] [id number] Sury Patel MA from Last 3 Months Family History Medical History Relation Comments Hyperlipidemia Father Hypertension Father Asthma Mother Hypertension Mother Stroke Mother prediabetes Mother Asthma Sister Relation Status Comments Father Mother Alive Sister Alive Social History Tobacco Use Types Packs/Day Years Used Date Smoking Tobacco: Never Smokeless Tobacco: Never Tobacco Cessation:Counseling Given: Not Answered Alcohol Use Standard Drinks/Week Comments Not Currently 0 (1 standard drink = 0.6 oz pur e alcohol) Sex and Gender Information Value Date Recorded Sex Assigned at Not on file Legal Sex Male 1:19 PM EDT Gender Identity Not on file Sexual Orientation Not on file Last Filed Vital Signs Vital Sign Reading Time Taken Comments Blood Pressure 120/72 04/14/2024 10:45 AM FUNERAL HOME MAKEUP ARTIST Pulse 80 04/14/2024 10:45 AM FUNERAL HOME MAKEUP ARTIST Temperature 36.7 C (98.1 F) 04/14/2024 10:45 AM FUNERAL HOME MAKEUP ARTIST Respiratory Rate - - Oxygen Saturation 97% 04/14/2024 10:45 AM FUNERAL HOME MAKEUP ARTIST Inhaled Oxygen Concentration - - Weight 104 kg (229 lb) 04/14/2024 10:45 AM FUNERAL HOME MAKEUP ARTIST Height 177.8 cm (5' 10 ) 04/14/2024 10:45 AM FUNERAL HOME MAKEUP ARTIST Body Mass Index 32.86 04/14/2024 10:45 AM FUNERAL HOME MAKEUP ARTIST Plan of Treatment Health Maintenance Due Date Last Done Comments Pneumococcal Vaccine: Pediat rics (0 to 5 Years) and At-Risk Patients (6 to 64 Years) (1 of 2 - PCV) 1989 Hepatitis B Vaccine (1 of 3 - 19+ 3-dose series) 2002 Influenza Vaccine (#1) 2023 0, 01/01/2019, 01/16/2018, Additional history exists Insurance MEDICARE
--- OUTSIDE RECORDS SUMMARY | 2024-06-01 12:06 | XMS_ITS | Referral Summary ---
Author Organization [facility] Address [address] [place] [address] Care Team Providers Care Regional Operations Director Name Role Phone Unavailable Primary Care Provider Unavailabl e Source Comments [facility],non-owned Affiliates and Associated Physician Practices is amultiple site organization consisting of ambulatory clinics and hospital sitesin [place], [place], [place] and [place]. This disclosure is being madepursuant to the Care Everywhere program and may not contain all information available regarding this patient. Last updated 18.[facility] Displair Allergies Active Allergy Reactions Criticality Noted Date Comments Fish Allergy Urticaria Medium 05/07/2015 Fried fish/has eaten shrimp without problems Medications * Be aware that medications may not be up to date on this document. Alwaysverify current medications with the patient. Medication Sig Dispensed Refills Start Date End Date Status folic acid (FOLVITE) 1 MG tablet Take 1 (one) tablet by mouth once daily 03/12/2017 Active methadone (Dolophine) 10 MG tablet Take 1 (one) tablet by mouth 3 times daily 12/03/2023 Active hydroxyurea (Hydrea) 500 MG capsule Take 1 (one) capsule by mouth every morning 07/17/2022 Active oxyCODONE, immediate release, (Roxicodone) 10 MG tabletIndications: Hb-SS disease with crisis (HCC) Take 1 (one) tablet by mouth every 4 hours as needed 12 tablet 12/29/2023 Active warfarin (Coumadin) 10 MG tablet Take 1 (one) tablet by mouth once daily 20 tablet 12/29/2023 Active polyethylene glycol 3350 (Miralax) 17 g packet Take 17 (seventeen) g by mouth once daily as needed for Constipation 10 packet 12/29/2023 Active ibuprofen (Motrin) 800 MG tablet Take 1 (one) tablet by mouth as needed for Pain (headache) Active Active Problems Problem Noted Date Diagnosed Date Hospital discharge follow-up 12/31/2023 Elevated LFTs 12/16/2023 CLEMENTNIA (acute kidney injury) 12/16/2023 Sinus tachycardia 12/16/2023 Acute hypoxic respiratory failure 12/16/2023 Acute chest syndrome 12/16/2023 History of DVT (deep vein thrombosis) 12/16/2023 History of pulmonary embolism 12/16/2023 Hyperbilirubinemia 12/16/2023 Gram-positive bacteremia 12/16/2023 Microcytic anemia 12/16/2023 Thrombocytopenia 12/16/2023 Acute cholecystitis 12/16/2023 Sepsis 12/16/2023 Hypoglycemia 12/16/2023 Hypernatremia 12/16/2023 Hypophosphatemia 12/16/2023 Lactic acidosis 12/16/2023 Abdominal pain, RUQ 12/16/2023 Acute appendicitis with localized peritonitis Sickle cell disease, type sc, without crisis 01/2018 Chronic pain 07/23/2017 Resolved Problems Problem Noted Date Diagnosed Date Resolved Date Sickle cell crisis 12/15/2023 Immunizations Name Administration Dates Next Due INFLUENZA VACCINE, TRIV. (AF LURIA, FLUZONE TRIVALENT; 6MO+) (IIV3) 01/31/2016,01/27/2015 FLU VACCINE TRI IIV3 SPLIT PF IM (FLUVIRIN) 02/13,02/08/2014,01/30/2010 HIB-PRP-T 4 DOSE 12/21/2023 INFLUENZA VACCINE, QUADR. (F LUZONE; FLULAVAL; FLUARIX; AFLURIA QUADRIVALENT; 6MO+), 0.5 ML (IIV4) 02/24/2020,01/01/2019,01/16/2018 INFLUENZA VACCINE, TRIV. (FL UZONE; FLULAVAL; FLUARIX; AFLURIA TRIVALENT; 6MO+), 0.5 ML (IIV3) 01/23/2016 MENINGOCOCCAL MCV4O 12/21/2023 Meningococcal B Recombinant 2 Dose, IM 4 TDAP (7yrs+) 12/22/2023 Social History Tobacco Use Types Packs/Day Years Used Date Smoking Tobacco: Never Smokeless Tobacco: Never Tobacco Cessation:Counseling Given: Not Answered Alcohol Use Standard Drinks/Week Comments No 0 (1 standard drink = 0.6 oz pur e alcohol) AUDIT-C Answer Date Recorded Q1: How often do you have a drink containing alcohol? Never 12/15/2023 Q2: How many drinks containi ng alcohol do you have on a typical day when you are drinking? Patient does not drink Q3: How often do you have si x or more drinks on one occasion? Never 12/15/2023 Overall Financial Resource Strain (CARDIA) Answe r Date Recorded How hard is it for you to pa y for the very basics like food, housing, medical care, and heating? Not very hard 12/15/2023 [facility] [place] [facility] - Occupational Stress Questionnaire Answer Date Recorded Do you feel stress - tense, restless, nervous, or anxious, or unable to sleep at night because your mind is troubled all the time - these days? Not at all 12/15/2023 Hunger Vital Sign Answer Date Recorded Within the past 12 months, y ou worried that your food would run out before you got the money to buy more. Never true 12/15/19 24 Within the past 12 months, t he food you bought just didn't last and you didn't have money to get more. Never true 12/15/2023 PRAPARE - Transportation Answer Date Re corded In the past 12 months, has l ack of transportation kept you from medical appointments or from getting medications? No 04/2023 In the past 12 months, has l ack of transportation kept you from meetings, work, or from getting things needed for daily living? No 12/15/2023 Housing Stability Vital Sign Answer [place]ville e Recorded In the last 12 months, was t here a time when you were not able to pay the mortgage or rent on time? No 12/15/2023 In the last 12 months, how many places have you lived? 1 12/15/2023 In the last 12 months, was t here a time when you did not have a steady place to sleep or slept in a [place] (including now)? No 12/15/2023 Sex and Gender Information Value Date Recorded Sex Assigned at Not on file Gender Identity Not on file Sexual Orientation Not on file Last Filed Vital Signs Vital Sign Reading Time Taken Comments Blood Pressure 146/93 12/28/2023 8:07 PM CDT Pulse 95 12/28/2023 8:07 PM CDT Temperature 36.9 C (98.4 F) 12/28/2023 8:07 PM CDT Respiratory Rate 18 12/31/2023 1:35 PM CDT Oxygen Saturation 97% 12/28/2023 8:07 PM CDT Inhaled Oxygen Concentration - - Weight 97.8 kg (215 lb 9.1 oz) 12/28/2023 4:00 A M CDT Height 177.8 cm (5' 10 ) 12/31/2023 1:35 PM CDT Body Mass Index 30.93 12/15/2023 10:00 PM CDT Functional Status Functional Status Response Date of Assess ment Is person deaf or have serious hearing difficult y? No 12/15/2023 Is person blind or have serious difficulty seein g? No 12/15/2023 Does person have serious dif ficulty walking/climbing stairs? No 12/15/2023 Does person have difficulty dressing/bathing? No 12/15/2023 Does person have difficulty doing errands alone? No 12/15/2023 Cognitive Status Response Date of Assessm ent Does person have difficulty concentrating/remembering/making decisions? No 12/15/2023 Plan of Treatment Not on file Procedures Procedure Name Priority Date/Time Associated Diagnosis Comments COMPREHENSIVE METABOLIC PANEL AM Draw 12/26/2023 1:54 AM CDT HEPATITIS C AB SCREEN RFLX NAAT QUANT Routine 12/19/2023 5:04 AM CDT HIV-1 HIV-2 ANTIBODY + HIV P24 AG PANEL Routine 12/19/2023 5:04 AM CDT LIPID PROFILE AM Draw 12/18/2023 3:46 AM CDT from Last 3 Months or Most Recently Relevant to Health Maintenance Results * (ABNORMAL) COMPREHENSIVE METABOLIC PANEL (12/26/2023 1:54 AM CDT) BUN 8 7 - 26 mg/dL 12/26/2023 3:11 [address] [facility] Creatinine 1.14 0.71 - 1.16 mg/dL 12/26/2023 3:11 AM [facility] Sodium 138 136 - 145 mmol/L 12/26/2023 3:11 AM [facility] Potassium 3.8 3.5 - 4.5 mmol/L 12/26/2023 3:11 AM [facility] Chloride 106 98 - 107 mmol/L 12/26/2023 3:11 AM [facility] CO2 24 22 - 29 mmol/L 12/26/2023 3:11 AM [facility] Glucose 107 70 - 115 mg/dL 12/26/2023 3:11 AM [facility] Calcium 9.2 8.4 - 10.2 mg/dL 12/26/2023 3:11 AM [facility] Protein Total 8.3 6.0 - 8.3 g/dL 12/26/2023 3:11 AM [facility] Albumin 2.7(L) 3.4 - 5.0 g/dL 12/26/2023 3:11 AM [facility] Bilirubin Total 0.6 0.2 - 1.2 mg/dL 12/26/2023 3:11 AM [facility] Alkaline Phosphatase 79 40 - 150 U/L 12/26/2023 3:11 AM [facility] ALT 52 5 - 55 U/L 12/26/2023 3:11 AM [facility] AST 24 5 - 34 U/L 12/26/2023 3:11 AM [facility] Anion Gap 8 6 - 16 12/26/2023 3:11 AM [facility] BUN/Creatinine Ratio 7 7 - 23 12/26/2023 3:11 AM [facility] Osmolality Calculated 285 275 - 295 mOsm/kg 12/26/2023 3:11 AM CDT [facility] Albumin/Globulin Ratio 0.5(L) 1.1 - 2.3 12/26/2023 3:11 AM CDT [facility] eGFR by CKD-EPI 83(L) >=90 mL/min/1.7 3 m2 12/26/2023 3:11 AM CDT [facility] Blood BLOOD SPECIMEN / Unknown Lab Venipuncture / Unknown 12/26/2023 1:54 AM CDT 12/26/2023 2:57 AM CDT Natalia Marks MD LAB - CHEMISTRY [facility] Performing Organization Address City/[facility]/ZIP Co de Phone Number [address] [address], [facility] [phone] * HEPATITIS C AB SCREEN RFLX NAAT QUANT (12/19/2023 5:04 AM CDT) Hepatitis C Antibody Non-react daniel Non-reac tive 12/19/2023 6:17 AM CDT [facility] Comment:Hepatitis C Antibody screen indicates no serologic evidence of past or current infection with Hepatitis C Virus. Patients with unexplained liver disease who are immunocompromised or suspected of having acute Hepatitis C infection may benefit from Nucleic Acid Test (SEJAL) for Hepatitis C Viral RNA to confirm Hepatitis C status. Blood BLOOD SPECIMEN / Unknown Venipuncture / Unknown 12/19/2023 5:04 AM CDT 12/19/2023 5:08 AM CDT German Damon MD LAB - CHEMISTRY [facility] [address] [address], [place] [phone] * HIV-1 HIV-2 ANTIBODY + HIV P24 AG PANEL (12/19/2023 5:04 AM CDT) HIV Antigen/Antibod y 1 & 2 Non-reacti ve Non-react daniel 12/19/2023 6:17 AM CDT [facility] Comment:No Laboratory eviden ce of HIV infection. Blood BLOOD SPECIMEN / Unknown Venipuncture / Unknown 12/19/2023 5:04 AM CDT 12/19/2023 5:08 AM CDT German Damon MD LAB - CHEMISTRY [facility] Performing Organization Address City/[facility]/ZIP Co de Phone Number [facility] [address] [place] [phone], [place] [phone] * (ABNORMAL) LIPID PROFILE (12/18/2023 3:46 AM CDT) [facility] Cholesterol Total 100 <200 mg/dL 12/18/2023 4:46 AM CDT [facility] HDL 7(L) >40 mg/dL 12/18/2023 4:46 AM T [facility] Comment: ATP III Classification of HDL Cholesterol: <40 mg/dL: Considered a major risk factor. >60 mg/dL: Considered a negative risk factor. LDL Calculated 54 <100 mg/dL 12/18/2023 4:46 AM T [facility] Comment: ATP III Classification of LDL Cholesterol: <100 mg/dL: Optimal 100 - 129 mg/dL: Near Optimal/Above Optimal 130 - 159 mg/dL: Borderline High 160 - 189 mg/dL: High >190 mg/dL: Very High Triglycerides 195(H) <150 mg/dL 12/18/2023 4:46 AM T [facility] Comment: ATP III Classification of Triglycerides: <150 mg/dL: Normal 150 - 199 mg/dL: Borderline High 200 - 400 mg/dL: High >500 mg/dL: Very High Blood BLOOD SPECIMEN / Unknown Venipuncture / Unknown 12/18/2023 3:46 AM CDT 12/18/2023 4:14 AM CDT German Damon MD LAB - CHEMISTRY [facility] [address] [place] [address], [place] [phone] from Last 3 Months or Most Recently Relevant to Health Maintenance Advance Directives * Full Code (Latest Code Status on File) Date Activated Date Inactivated Comments 12/15/2023 10:14 PM 12/29/2023 3:08 PM
--- OUTSIDE RECORDS SUMMARY | 2024-06-01 12:06 | XMS_ITS | Clinical Summary ---
Author Organization [facility] Address [address] [place] [address] Care Team Providers Care Ip Architect Name Role Phone Unavailable Primary Care Provider Unavailabl e Allergies Active Allergy Reactions Criticality Noted Date Comments Fish Containing Products Hives High 05/07/2015 Shellfish Containing Products Hives High 2015 Medications triamcinolone acetonide (KENALOG) 0.1 % Ointment Apply to affected area 2 times daily. 15 Gram 1 2 Active warfarin (COUMADIN) 2 mg tabletIndicatio ns:Other acute pulmonary embolism without acute cor pulmonale (CMS/HCC) TAKE ONE TABLET BY MOUTH EVERY DAY 30 Tablet 3 3 Active warfarin (COUMADIN) 10 mg tabletIndicatio ns:Other acute pulmonary embolism without acute cor pulmonale (CMS/HCC) T1 TABLET BY MOUTH ONCE DAILY 30 Tablet 5 3 Active folic acid (FOLVITE) 1 mg tablet Take 1 Tablet (1 mg) by mouth daily. 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 Encounters Date Type Department Care Team Description 05/19/2024 External Device Data STL ABSTRACTION Provider, Abstract 05/18/2024 Orders Only [facility] - [address] [place] [phone] Jone Marks MD Other acute pulmonary embolism without acute cor pulmonale (CMS/HCC) 05/07/2024 Abstract [facility] - [place] [address] [place] [address] Jone Marks MD 05/07/2024 Abstract [facility]ology - [place] [address] [place] [address] Jone Marks MD 05/06/2024 External Device Data STL ABSTRACTION Provider, Abstract 05/06/2024 External Device Data STL ABSTRACTION Provider, Abstract 05/05/2024 Refill [facility] - [address] [place] [address] Jone Marks MD 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 ([facility]/HCC) 04/20/2024 Orders Only [facility]ology - [address] [place] [address] Jone Marks MD Other acute pulmonary embolism without acute cor pulmonale ([facility]/HCC) 04/13/2024 Abstract [facility]ology - [address] [place] [address] Jone Marks MD 04/10/2024 Telephone [facility] - [address] [place] [id number] Jone Marks MD Methadone Prior auth 03/31/2024 Refill [facility] - [place] [address] [place] [address] Jone Marks MD 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 ([facility]/HCC) 03/23/2024 Orders Only [facility]ology - [place] [address] [place] [address] Jone Marks MD Other acute pulmonary embolism without acute cor pulmonale ([facility]/HCC) 03/09/2024 Refill [facility]ematology - [place] [address] [place] [address] Jone Marks MD 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 ([facility]/HCC) 03/09/2024 Telephone [facility]ology - [address] [place] [address] Jone Marks MD Missed Call from Last 3 Months Family History Medical History Relation Name Comments Healthy Brother 1 Healthy Brother 2 Healthy Brother 3 Healthy Brother 4 Healthy Brother 5 Healthy Father Healthy Mother Asthma Sister 1 Healthy Sister 2 Relation Name Status Comments Brother 1 Alive Brother 2 Alive Brother 3 Alive Brother 4 Alive Brother 5 Alive Father Alive Mother Alive Sister 1 Alive Sister 2 Social History Tobacco Use Types Packs/Day Years [...] Sign Reading Time Taken Comments Blood Pressure 107/68 07/18/2023 3:25 PM CDT Pulse 70 07/18/2023 3:25 PM CDT Temperature 36.1 C (96.9 F) 07/18/2023 3:25 PM CDT Respiratory Rate 14 07/18/2023 3:25 PM CDT Oxygen Saturation 93% 07/18/2023 3:25 PM CDT Inhaled Oxygen Concentration - - Weight 101.6 kg (224 lb) 07/18/2023 3:25 PM CDT Height 177.8 cm (5' 10 ) 03/29/2021 12:09 PM MEDICAL INFORMATION SPECIALIST Body Mass Index 32.14 03/29/2021 12:09 PM MEDICAL INFORMATION SPECIALIST Plan of Treatment Upcoming Encounters Date Type Department Care Team (Late st Contact Info) Description 06/15/2024 Orders Only [facility] Hematology - [address] [place] [address] Jone Marks MD [address] [place] [address] Other acute pulmonary embolism without acute cor pulmonale (CMS/HCC) 07/20/2024 1:00 PM CDT Office Visit [facility]ology - [address] [place] [address] Jone Marks MD [address] [place] [phone] Health Maintenance Due Date Last Done Comments Pre-Diabetes and Diabetes Screening 1985 HEPATITIS B VACCINES (1 of 3 - 19+ 3-dose series) 2002 INFLUENZA VACCINE (#1) 2023 0, 01/01/2019, 01/16/2018, Additional history exists DTAP/TDAP/TD VACCINES (2 - Td or Tdap) 12/21/2033 12/22/2023 HPV VACCINES Aged Out No longer eligi ble based on patient's age to complete this topic [place]
--- OUTSIDE RECORDS SUMMARY | 2024-06-01 12:06 | XMS_ITS | Clinical Summary ---
Author Organization [facility] Address [address] [place] [address] Care Team Providers Care Speech Pathology Teacher Name Role Phone Unavailable Primary Care Provider Unavailabl e Source Comments [facility],non-owned Affiliates and Associated Physician Practices is amultiple site organization consisting of ambulatory clinics and hospital sitesin [place], [place], [place] and [place]. This disclosure is being madepursuant to the Care Everywhere program and may not contain all information available regarding this patient. Last updated 18.[facility] Allergies Active Allergy Reactions Criticality Noted Date [...] Hospital discharge follow-up 12/31/2023 Elevated LFTs 12/16/2023 CLEMENTINA (acute kidney injury) 12/16/2023 Sinus tachycardia 12/16/2023 [...] 2 Dose, IM 4 TDAP (7yrs+) 12/22/2023 Family History Medical History Relation Name Comments Sickle Cell Trait Father Hypertension Mother Sickle Cell Trait Mother Asthma Natural Sibling Relation Name Status Comments Father Alive Mother Alive Natural Sibling Other Social History Tobacco Use Types Packs/Day [...] care, and heating? Not very hard 12/15/2023 [facility] - Occupational Stress [...] place to sleep or slept in a jail (including now)? No 12/15/2023 Sex and Gender [...] Mass Index 30.93 12/15/2023 10:00 PM CDT Plan of Treatment Health Maintenance Due Date Last Done Comments MEDICARE AWV 12 MONTHS 1985 Opioid Medication Agreement - Annual 1983 HEPATITIS B VACCINE (1 of 3 - 19+ 3-dose series) 2002 PNEUMOCOCCAL VACCINE (1 of 2 - PCV) 2002 COVID-19 VACCINE ( - season) 2023 INFLUENZA VACCINE (#1) 2023 0, 01/01/2019, 01/16/2018, Additional history exists MENINGOCOCCAL (Group B) VACCINE (2 of 5 - Increased Risk Bexsero 3-dose series) 01/18/2024 12/21/2023 MENINGOCOCCAL VACCINE (2 - Risk 2-dose series) 02/15/2024 12/21/2023 DEPRESSION SCREENING 04/15/2024 SCREENING FOR DIABETES 12/25/2026 4, 12/25/2023, 12/25/2023, Additional history exists LIPID TESTING 12/17/2028 12/18/2023 ZOSTER VACCINE (1 of 2) 2033 DTAP/TDAP/TD VACCINES (2 - Td or Tdap) 12/21/2033 12/22/2023 HEPATITIS C SCREENING Completed 12/19/2023, 024 HIV SCREENING Completed 12/19/2023 HIB VACCINE Completed 12/21/2023 HPV VACCINE Aged Out No longer eligi ble based [...] 7 - 26 mg/dL 12/26/2023 3:11 AM [facility] Creatinine 1.14 0.71 - 1.16 mg/dL 12/26/2023 3:11 AM [facility] Sodium 138 136 - 145 mmol/L 12/26/2023 3:11 AM [facility] Potassium 3.8 3.5 - 4.5 mmol/L 12/26/2023 3:11 AM [facility] Chloride 106 98 - 107 mmol/L 12/26/2023 3:11 AM [facility] CO2 24 22 - 29 mmol/L 12/26/2023 3:11 AM [facility] Glucose 107 70 - 115 mg/dL 12/26/2023 3:11 AM [facility] Calcium 9.2 8.4 - 10.2 mg/dL 12/26/2023 3:11 AM [facility] Protein Total 8.3 6.0 - 8.3 g/dL 12/26/2023 3:11 AM [facility] Albumin 2.7(L) 3.4 - 5.0 g/dL 12/26/2023 3:11 AM [facility] Bilirubin Total 0.6 0.2 - 1.2 mg/dL 12/26/2023 3:11 AM [facility] Alkaline Phosphatase 79 40 - 150 U/L 12/26/2023 3:11 AM [facility] ALT 52 5 - 55 U/L 12/26/2023 3:11 AM [facility] AST 24 5 - 34 U/L 12/26/2023 3:11 AM [facility] Anion Gap 8 6 - 16 12/26/2023 3:11 AM [facility] BUN/Creatinine Ratio 7 7 - 23 12/26/2023 3:11 AM [facility] Osmolality Calculated 285 275 - 295 mOsm/kg 12/26/2023 3:11 AM [facility] Albumin/Globulin Ratio 0.5(L) 1.1 - 2.3 12/26/2023 3:11 AM [facility] eGFR by CKD-EPI 83(L) >=90 mL/min/1.7 3 m2 12/26/2023 3:11 AM [facility] Blood BLOOD SPECIMEN / Unknown Lab Venipuncture / Unknown 12/26/2023 1:54 AM CDT 12/26/2023 2:57 AM T Natalia Marks MD LAB - CHEMISTRY ORDDarrell GRANT [facility] Organization Address City/State/ZIP Co de Phone Number [facility] [address] [place] [address], [facility] [phone] * HEPATITIS C AB SCREEN RFLX NAAT QUANT (12/19/2023 5:04 AM CDT) Hepatitis C Antibody Non-react daniel Non-reac tive 12/19/2023 6:17 AM [facility] Comment:Hepatitis C Antibody screen indicates no [...] - CHEMISTRY NAZARIO GRANT Performing Organization Address City/[facility]/ZIP Co de Phone Number [address] [address], [facility] [phone] * HIV-1 HIV-2 ANTIBODY + HIV P24 AG PANEL (12/19/2023 5:04 AM CDT) Pathologist [facility] HIV Antigen/Antibod y 1 & 2 Non-reacti ve Non-react daniel 12/19/2023 6:17 AM CDT [facility] Comment:No Laboratory eviden ce of HIV infection. Blood BLOOD SPECIMEN / Unknown Venipuncture / Unknown 12/19/2023 5:04 AM CDT 12/19/2023 5:08 AM CDT German Damon MD LAB - CHEMISTRY NAZARIO GRANT Performing Organization Address [facility] Co de Phone Number [address] [address], [facility] [phone] * (ABNORMAL) LIPID PROFILE (12/18/2023 3:46 AM CDT) Cholesterol Total 100 <200 mg/dL 12/18/2023 4:46 AM CDT [facility] HDL 7(L) >40 mg/dL 12/18/2023 4:46 AM CDT [facility] Comment: ATP III Classification of HDL Cholesterol: <40 mg/dL: Considered a major risk factor. >60 mg/dL: Considered a negative risk factor. LDL Calculated 54 <100 mg/dL 12/18/2023 4:46 AM CDT [facility] Comment: ATP III Classification of LDL Cholesterol: <100 mg/dL: Optimal 100 - 129 mg/dL: Near Optimal/Above Optimal 130 - 159 mg/dL: Borderline High 160 - 189 mg/dL: High >190 mg/dL: Very High Triglycerides 195(H) <150 mg/dL 12/18/2023 4:46 AM CDT [facility] Comment: ATP III Classification of Triglycerides: <150 mg/dL: Normal 150 - 199 mg/dL: Borderline High 200 - 400 mg/dL: High >500 mg/dL: Very High Blood BLOOD SPECIMEN / Unknown Venipuncture / Unknown 12/18/2023 3:46 AM CDT 12/18/2023 4:14 AM CDT German Damon MD LAB - CHEMISTRY NAZARIO GRANT [facility] [address] [place] [address], [facility] [phone] from Last 3 Months or Most Recently Relevant to Health Maintenance Advance Directives * Full Code (Latest Code Status on File) Date Activated Date Inactivated Comments 12/15/2023 10:14 PM 12/29/2023 3:08 PM
--- OUTSIDE RECORDS SUMMARY | 2024-06-01 12:06 | XMS_ITS | Referral Summary ---
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 Immunizations Immunization Administration Dates Next Due Influenza, Quadrivalent, Spl it, Preservative Free, Intramuscular 01/01/2019,01/16/2018 Influenza, Trivalent, IM (MDV) 01/31/2016,2014 Influenza, Trivalent, Preser vative Free, Intramuscular 01/23/2016,02/28/2015,02/08/2014,01/30 Social History Tobacco Use Types Packs/Day Years [...] on file Legal Sex Male 12:32 AM PARTY HOST Gender Identity Not on file Sexual Orientation [...] 01/25/2023 11:41 AM CDT Plan of Treatment Not on file Procedures Procedure Name Priority Date/Time Associated Diagnosis Comments US KIDNEY COMPLETE Schedule Routine, Read Routine (OP Routine) 04/27/2024 11:37 AM PARTY HOST Chronic kidney disease, stage 2 (mild) Essential (primary) hypertension from Last 3 Months Results * US Kidney Complete (04/27/2024 11:37 AM PARTY HOST) Anatomical Region Laterality Modality Kidney N/A Ultrasound 04/28/2024 9:47 AM PARTY HOST Narrative 04/28/2024 9:51 AM PARTY HOST EXAM DESCRIPTION: US KIDNEY COMPLETE REASON FOR [...] Raphael Suárez M.D. LEONORA: LEONORA Report ID: [id number] Reading Location: [id number] Procedure Note Laurent Suárez MD - 04/28/2024 [...] Raphael Suárez M.D. LEONORA: LEONORA Report ID: [id number] Reading Location: [id number] us Carlos Canseco MD IMG US PROCEDURES Final Resul t from Last 3 Months Insurance [facility] MEDICARE [facility] MEDICARE Advance Directives For more information, please contact: [phone] * Full Code (Latest Code Status on [...] Agents on File Name Relationship Healthcare Agent Relationshi p Communication Ya Williamsw Friend Health Care Agent Paulette Rios Mother Health Care Agent Care Teams Hotel Receptionist Relationship Specialty Start Date End Date Jone Marks MD [address] [id number] PCP - General 01/26/19
--- OUTSIDE RECORDS SUMMARY | 2024-06-01 12:06 | XMS_ITS | Patient Health Summary ---
Author Organization [facility] Address [address] [place] [address] Care Team Providers Care Electrical Controls Assembler Name Role Phone Unavailable Primary Care Provider Unavailabl e Note from [facility],non-owned Affiliates and Associated Physician Practices is amultiple site organization consisting of ambulatory clinics and hospital sitesin [place], [place], [place] and [place]. This disclosure is being madepursuant to the Care Everywhere program and may not contain all information available regarding this patient. Last updated 18.[facility] Allergies * Fish Allergy(Urticaria) -Medium Criticality Medications * Be aware that medications may not be up to date on this document. Alwaysverify current medications with the patient. * folic acid (FOLVITE) 1 MG tablet(Started 03/12/2017) Take 1 (one) tablet by mouth once daily * methadone (Dolophine) 10 MG tablet(Started 12/03/2023) Take 1 (one) tablet by mouth 3 times daily * hydroxyurea (Hydrea) 500 MG capsule(Started 07/17/2022) Take 1 (one) capsule by mouth every morning * oxyCODONE, immediate release, (Roxicodone) 10 MG tablet(Started 12/29/2023) Take 1 (one) tablet by mouth every 4 hours as needed * warfarin (Coumadin) 10 MG tablet(Started 12/29/2023) Take 1 (one) tablet by mouth once daily * polyethylene glycol 3350 (Miralax) 17 g packet(Started 12/29/2023) Take 17 (seventeen) g by mouth once daily as needed for Constipation * ibuprofen (Motrin) 800 MG tablet Take 1 (one) tablet by mouth as needed for Pain (headache) Active Problems Problem Noted Date Diagnosed Date [...] Resolved Date Sickle cell crisis 12/15/2023 Immunizations * INFLUENZA VACCINE, TRIV. (AFLURIA, FLUZONE TRIVALENT; 6MO+) (IIV3)(Given 01/31/2016, 01/27/2015) * FLU VACCINE TRI IIV3 SPLIT PF IM (FLUVIRIN)(Given 02/28/2015, 02/08/2014, 01/30/2010) * HIB-PRP-T 4 DOSE(Given 12/21/2023) * INFLUENZA VACCINE, QUADR. (FLUZONE; FLULAVAL; FLUARIX; AFLURIA QUADRIVALENT; 6MO+), 0.5 ML (IIV4)(Given 02/24/2020, 01/01/2019, 01/16/2018) * INFLUENZA VACCINE, TRIV. (FLUZONE; FLULAVAL; FLUARIX; AFLURIA TRIVALENT; 6MO+), 0.5 ML (IIV3)(Given 01/23/2016) * MENINGOCOCCAL MCV4O(Given 12/21/2023) * Meningococcal B Recombinant 2 Dose, IM(Given 12/21/2023) * TDAP (7yrs+)(Given 12/22/2023) Social History Tobacco Use Types Packs/Day Years [...] care, and heating? Not very hard 12/15/2023 [facility] [place] [facility] Occupat ional [facility] - Occupational Stress [...] place to sleep or slept in a senior living (including now)? No 12/15/2023 Sex and Gender [...] Mass Index 30.93 12/15/2023 10:00 PM CDT Procedures * PT-INR SLH(Performed 12/29/2023) * PT-INR SLH(Performed 12/28/2023) * PT-INR SLH(Performed 12/27/2023) * CBC W AUTO DIFFERENTIAL(Performed 12/26/2023) * PT-INR SLH(Performed 12/26/2023) * PHOSPHORUS BLOOD(Performed 12/26/2023) * MAGNESIUM BLOOD(Performed 12/26/2023) * COMPREHENSIVE METABOLIC PANEL(Performed 12/26/2023) * GLUCOSE - POINT OF CARE(Performed 12/25/2023) * GLUCOSE - POINT OF CARE(Performed 12/25/2023) * DIFFERENTIAL MANUAL(Performed 12/25/2023) * PTT SLH(Performed 12/25/2023) * PT-INR SLH(Performed 12/25/2023) * FIBRINOGEN ACTIVITY(Performed 12/25/2023) * D-DIMER(Performed 12/25/2023) * HAPTOGLOBIN(Performed 12/25/2023) * URIC ACID BLOOD(Performed 12/25/2023) * LDH BLOOD(Performed 12/25/2023) * PHOSPHORUS BLOOD(Performed 12/25/2023) * MAGNESIUM BLOOD(Performed 12/25/2023) * COMPREHENSIVE METABOLIC PANEL(Performed 12/25/2023) * CBC W AUTO DIFFERENTIAL(Performed 12/25/2023) * GLUCOSE - POINT OF CARE(Performed 12/25/2023) * GLUCOSE - POINT OF CARE(Performed 12/25/2023) * DIFFERENTIAL MANUAL(Performed 12/25/2023) * PTT SLH(Performed 12/25/2023) * PT-INR SLH(Performed 12/25/2023) * FIBRINOGEN ACTIVITY(Performed 12/25/2023) * D-DIMER(Performed 12/25/2023) * HAPTOGLOBIN(Performed 12/25/2023) * URIC ACID BLOOD(Performed 12/25/2023) * LDH BLOOD(Performed 12/25/2023) * PHOSPHORUS BLOOD(Performed 12/25/2023) * MAGNESIUM BLOOD(Performed 12/25/2023) * COMPREHENSIVE METABOLIC PANEL(Performed 12/25/2023) * CBC W AUTO DIFFERENTIAL(Performed 12/25/2023) * GLUCOSE - POINT OF CARE(Performed 12/24/2023) * DIFFERENTIAL MANUAL(Performed 12/24/2023) * PTT SLH(Performed 12/24/2023) * PT-INR SLH(Performed 12/24/2023) * FIBRINOGEN ACTIVITY(Performed 12/24/2023) * D-DIMER(Performed 12/24/2023) * HAPTOGLOBIN(Performed 12/24/2023) * URIC ACID BLOOD(Performed 12/24/2023) * LDH BLOOD(Performed 12/24/2023) * PHOSPHORUS BLOOD(Performed 12/24/2023) * MAGNESIUM BLOOD(Performed 12/24/2023) * COMPREHENSIVE METABOLIC PANEL(Performed 12/24/2023) * CBC W AUTO DIFFERENTIAL(Performed 12/24/2023) * GLUCOSE - POINT OF CARE(Performed 12/24/2023) * DIFFERENTIAL MANUAL(Performed 12/24/2023) * PTT SLH(Performed 12/24/2023) * PT-INR SLH(Performed 12/24/2023) * FIBRINOGEN ACTIVITY(Performed 12/24/2023) * D-DIMER(Performed 12/24/2023) * HAPTOGLOBIN(Performed 12/24/2023) * URIC ACID BLOOD(Performed 12/24/2023) * LDH BLOOD(Performed 12/24/2023) * PHOSPHORUS BLOOD(Performed 12/24/2023) * MAGNESIUM BLOOD(Performed 12/24/2023) * COMPREHENSIVE METABOLIC PANEL(Performed 12/24/2023) * CBC W AUTO DIFFERENTIAL(Performed 12/24/2023) * ECHO PATRICK COMPLETE(Performed 12/24/2023) Performed for Acute chest syndrome (HCC), Gram-positive bacteremia * GLUCOSE - POINT OF CARE(Performed 12/24/2023) * DIFFERENTIAL MANUAL(Performed 12/24/2023) * PTT SLH(Performed 12/24/2023) * PT-INR SLH(Performed 12/24/2023) * FIBRINOGEN ACTIVITY(Performed 12/24/2023) * D-DIMER(Performed 12/24/2023) * HAPTOGLOBIN(Performed 12/24/2023) * URIC ACID BLOOD(Performed 12/24/2023) * LDH BLOOD(Performed 12/24/2023) * PHOSPHORUS BLOOD(Performed 12/24/2023) * MAGNESIUM BLOOD(Performed 12/24/2023) * COMPREHENSIVE METABOLIC PANEL(Performed 12/24/2023) * CBC W AUTO DIFFERENTIAL(Performed 12/24/2023) * GLUCOSE - POINT OF CARE(Performed 12/23/2023) * DIFFERENTIAL MANUAL(Performed 12/23/2023) * PTT SLH(Performed 12/23/2023) * PT-INR SLH(Performed 12/23/2023) * FIBRINOGEN ACTIVITY(Performed 12/23/2023) * D-DIMER(Performed 12/23/2023) * HAPTOGLOBIN(Performed 12/23/2023) * URIC ACID BLOOD(Performed 12/23/2023) * LDH BLOOD(Performed 12/23/2023) * PHOSPHORUS BLOOD(Performed 12/23/2023) * MAGNESIUM BLOOD(Performed 12/23/2023) * COMPREHENSIVE METABOLIC PANEL(Performed 12/23/2023) * CBC W AUTO DIFFERENTIAL(Performed 12/23/2023) * GLUCOSE - POINT OF CARE(Performed 12/23/2023) * DIFFERENTIAL MANUAL(Performed 12/23/2023) * PTT SLH(Performed 12/23/2023) * PT-INR SLH(Performed 12/23/2023) * FIBRINOGEN ACTIVITY(Performed 12/23/2023) * D-DIMER(Performed 12/23/2023) * HAPTOGLOBIN(Performed 12/23/2023) * URIC ACID BLOOD(Performed 12/23/2023) * LDH BLOOD(Performed 12/23/2023) * PHOSPHORUS BLOOD(Performed 12/23/2023) * MAGNESIUM BLOOD(Performed 12/23/2023) * COMPREHENSIVE METABOLIC PANEL(Performed 12/23/2023) * CBC W AUTO DIFFERENTIAL(Performed 12/23/2023) * GLUCOSE - POINT OF CARE(Performed 12/23/2023) * DIFFERENTIAL MANUAL(Performed 12/23/2023) * PTT SLH(Performed 12/23/2023) * PT-INR SLH(Performed 12/23/2023) * FIBRINOGEN ACTIVITY(Performed 12/23/2023) * D-DIMER(Performed 12/23/2023) * HAPTOGLOBIN(Performed 12/23/2023) * URIC ACID BLOOD(Performed 12/23/2023) * LDH BLOOD(Performed 12/23/2023) * PHOSPHORUS BLOOD(Performed 12/23/2023) * MAGNESIUM BLOOD(Performed 12/23/2023) * CBC W AUTO DIFFERENTIAL(Performed 12/23/2023) * COMPREHENSIVE METABOLIC PANEL(Performed 12/23/2023) * GLUCOSE - POINT OF CARE(Performed 12/23/2023) * DIFFERENTIAL MANUAL(Performed 12/23/2023) * COMPREHENSIVE METABOLIC PANEL(Performed 12/23/2023) * PTT SLH(Performed 12/23/2023) * PT-INR SLH(Performed 12/23/2023) * FIBRINOGEN ACTIVITY(Performed 12/23/2023) * D-DIMER(Performed 12/23/2023) * HAPTOGLOBIN(Performed 12/23/2023) * URIC ACID BLOOD(Performed 12/23/2023) * LDH BLOOD(Performed 12/23/2023) * PHOSPHORUS BLOOD(Performed 12/23/2023) * MAGNESIUM BLOOD(Performed 12/23/2023) * CBC W AUTO DIFFERENTIAL(Performed 12/23/2023) * GLUCOSE - POINT OF CARE(Performed 12/22/2023) * GLUCOSE - POINT OF CARE(Performed 12/22/2023) * GLUCOSE - POINT OF CARE(Performed 12/22/2023) * DIFFERENTIAL MANUAL(Performed 12/22/2023) * CBC W AUTO DIFFERENTIAL(Performed 12/22/2023) * PTT SLH(Performed 12/22/2023) * PT-INR SLH(Performed 12/22/2023) * FIBRINOGEN ACTIVITY(Performed 12/22/2023) * D-DIMER(Performed 12/22/2023) * HAPTOGLOBIN(Performed 12/22/2023) * URIC ACID BLOOD(Performed 12/22/2023) * LDH BLOOD(Performed 12/22/2023) * PHOSPHORUS BLOOD(Performed 12/22/2023) * MAGNESIUM BLOOD(Performed 12/22/2023) * COMPREHENSIVE METABOLIC PANEL(Performed 12/22/2023) * GLUCOSE - POINT OF CARE(Performed 12/22/2023) * DIFFERENTIAL MANUAL(Performed 12/21/2023) * PTT SLH(Performed 12/21/2023) * PT-INR SLH(Performed 12/21/2023) * FIBRINOGEN ACTIVITY(Performed 12/21/2023) * D-DIMER(Performed 12/21/2023) * HAPTOGLOBIN(Performed 12/21/2023) * URIC ACID BLOOD(Performed 12/21/2023) * LDH BLOOD(Performed 12/21/2023) * PHOSPHORUS BLOOD(Performed 12/21/2023) * MAGNESIUM BLOOD(Performed 12/21/2023) * COMPREHENSIVE METABOLIC PANEL(Performed 12/21/2023) * CBC W AUTO DIFFERENTIAL(Performed 12/21/2023) * GLUCOSE - POINT OF CARE(Performed 12/21/2023) * GLUCOSE - POINT OF CARE(Performed 12/21/2023) * US EXTREMITY RIGHT LTD NONVASC(Performed 12/21/2023) Performed for Sickle cell crisis (HCC), Thrombocytopenia (HCC), Microcytic anemia, History of DVT (deep vein thrombosis) * GLUCOSE - POINT OF CARE(Performed 12/21/2023) * GLUCOSE - POINT OF CARE(Performed 12/21/2023) * DIFFERENTIAL MANUAL(Performed 12/21/2023) * PTT SLH(Performed 12/21/2023) * PT-INR SLH(Performed 12/21/2023) * FIBRINOGEN ACTIVITY(Performed 12/21/2023) * D-DIMER(Performed 12/21/2023) * HAPTOGLOBIN(Performed 12/21/2023) * URIC ACID BLOOD(Performed 12/21/2023) * LDH BLOOD(Performed 12/21/2023) * PHOSPHORUS BLOOD(Performed 12/21/2023) * MAGNESIUM BLOOD(Performed 12/21/2023) * COMPREHENSIVE METABOLIC PANEL(Performed 12/21/2023) * CBC W AUTO DIFFERENTIAL(Performed 12/21/2023) * GLUCOSE - POINT OF CARE(Performed 12/20/2023) * DIFFERENTIAL MANUAL(Performed 12/20/2023) * PTT SLH(Performed 12/20/2023) * PT-INR SLH(Performed 12/20/2023) * FIBRINOGEN ACTIVITY(Performed 12/20/2023) * D-DIMER(Performed 12/20/2023) * HAPTOGLOBIN(Performed 12/20/2023) * URIC ACID BLOOD(Performed 12/20/2023) * LDH BLOOD(Performed 12/20/2023) * PHOSPHORUS BLOOD(Performed 12/20/2023) * MAGNESIUM BLOOD(Performed 12/20/2023) * COMPREHENSIVE METABOLIC PANEL(Performed 12/20/2023) * CBC W AUTO DIFFERENTIAL(Performed 12/20/2023) * GLUCOSE - POINT OF CARE(Performed 12/20/2023) * DIFFERENTIAL MANUAL(Performed 12/20/2023) * PTT SLH(Performed 12/20/2023) * PT-INR SLH(Performed 12/20/2023) * FIBRINOGEN ACTIVITY(Performed 12/20/2023) * D-DIMER(Performed 12/20/2023) * HAPTOGLOBIN(Performed 12/20/2023) * URIC ACID BLOOD(Performed 12/20/2023) * LDH BLOOD(Performed 12/20/2023) * PHOSPHORUS BLOOD(Performed 12/20/2023) * MAGNESIUM BLOOD(Performed 12/20/2023) * COMPREHENSIVE METABOLIC PANEL(Performed 12/20/2023) * CBC W AUTO DIFFERENTIAL(Performed 12/20/2023) * GLUCOSE - POINT OF CARE(Performed 12/20/2023) * GLUCOSE - POINT OF CARE(Performed 12/20/2023) * DIFFERENTIAL MANUAL(Performed 12/20/2023) * CBC W AUTO DIFFERENTIAL(Performed 12/20/2023) * PTT SLH(Performed 12/20/2023) * PT-INR SLH(Performed 12/20/2023) * FIBRINOGEN ACTIVITY(Performed 12/20/2023) * D-DIMER(Performed 12/20/2023) * HAPTOGLOBIN(Performed 12/20/2023) * URIC ACID BLOOD(Performed 12/20/2023) * LDH BLOOD(Performed 12/20/2023) * PHOSPHORUS BLOOD(Performed 12/20/2023) * MAGNESIUM BLOOD(Performed 12/20/2023) * COMPREHENSIVE METABOLIC PANEL(Performed 12/20/2023) * GLUCOSE - POINT OF CARE(Performed 12/19/2023) * DIFFERENTIAL MANUAL(Performed 12/19/2023) * PTT SLH(Performed 12/19/2023) * PT-INR SLH(Performed 12/19/2023) * FIBRINOGEN ACTIVITY(Performed 12/19/2023) * D-DIMER(Performed 12/19/2023) * HAPTOGLOBIN(Performed 12/19/2023) * URIC ACID BLOOD(Performed 12/19/2023) * LDH BLOOD(Performed 12/19/2023) * PHOSPHORUS BLOOD(Performed 12/19/2023) * MAGNESIUM BLOOD(Performed 12/19/2023) * COMPREHENSIVE METABOLIC PANEL(Performed 12/19/2023) * CBC W AUTO DIFFERENTIAL(Performed 12/19/2023) * GLUCOSE - POINT OF CARE(Performed 12/19/2023) * HGB HCT PANEL(Performed 12/19/2023) * TRANSFUSE RED BLOOD CELL LEUKOREDUCED UNIT(S)(Performed 12/19/2023) * PREPARE RBC LEUKOREDUCED UNIT(Performed 12/19/2023) * TYPE + SCREEN PANEL(Performed 12/19/2023) * DIFFERENTIAL MANUAL(Performed 12/19/2023) * HIV-1 HIV-2 ANTIBODY + HIV P24 AG PANEL(Performed 12/19/2023) * HEPATITIS C AB SCREEN RFLX NAAT QUANT(Performed 12/19/2023) * TEG 6 GLOBAL HEMOSTASIS W/ LYSIS(Performed 12/19/2023) * PTT SLH(Performed 12/19/2023) * PT-INR SLH(Performed 12/19/2023) * FIBRINOGEN ACTIVITY(Performed 12/19/2023) * D-DIMER(Performed 12/19/2023) * HAPTOGLOBIN(Performed 12/19/2023) * URIC ACID BLOOD(Performed 12/19/2023) * LDH BLOOD(Performed 12/19/2023) * PHOSPHORUS BLOOD(Performed 12/19/2023) * MAGNESIUM BLOOD(Performed 12/19/2023) * COMPREHENSIVE METABOLIC PANEL(Performed 12/19/2023) * CBC W AUTO DIFFERENTIAL(Performed 12/19/2023) * URINE DRUG SCREEN IMMUNOASSAY(Performed 12/18/2023) * LEGIONELLA ANTIGEN URINE(Performed 12/18/2023) * STREP PNEUMONIAE ANTIGEN URINE(Performed 12/18/2023) * GLUCOSE - POINT OF CARE(Performed 12/18/2023) * DIFFERENTIAL MANUAL(Performed 12/18/2023) * PTT SLH(Performed 12/18/2023) * PT-INR SLH(Performed 12/18/2023) * FIBRINOGEN ACTIVITY(Performed 12/18/2023) * D-DIMER(Performed 12/18/2023) * HAPTOGLOBIN(Performed 12/18/2023) * URIC ACID BLOOD(Performed 12/18/2023) * LDH BLOOD(Performed 12/18/2023) * PHOSPHORUS BLOOD(Performed 12/18/2023) * MAGNESIUM BLOOD(Performed 12/18/2023) * COMPREHENSIVE METABOLIC PANEL(Performed 12/18/2023) * CBC W AUTO DIFFERENTIAL(Performed 12/18/2023) * BLOOD GASES CHAUNCEY + COOX PANEL(Performed 12/18/2023) * PROCALCITONIN LEVEL(Performed 12/18/2023) * CT CHEST WO CONTRAST(Performed 12/18/2023) Performed for Acute hypoxic respiratory failure (HCC) * TRANSFUSE FRESH FROZEN PLASMA UNIT(S)(Performed 12/18/2023) * PREPARE FFP UNIT(S)(Performed 12/18/2023) * ECHO COMPLETE W CONTRAST(Performed 12/18/2023) Performed for Acute chest syndrome (HCC) * TRANSFUSE FRESH FROZEN PLASMA UNIT(S)(Performed 12/18/2023) * PREPARE FFP UNIT(S)(Performed 12/18/2023) * HEPATITIS A ANTIBODY(Performed 12/18/2023) * GLUCOSE - POINT OF CARE(Performed 12/18/2023) * DIFFERENTIAL MANUAL(Performed 12/18/2023) * HEPATITIS C AB SCREEN RFLX NAAT QUANT(Performed 12/18/2023) * HEPATITIS B PANEL(Performed 12/18/2023) * TEG 6 GLOBAL HEMOSTASIS W/ LYSIS(Performed 12/18/2023) * PTT SLH(Performed 12/18/2023) * PT-INR SLH(Performed 12/18/2023) * FIBRINOGEN ACTIVITY(Performed 12/18/2023) * D-DIMER(Performed 12/18/2023) * HAPTOGLOBIN(Performed 12/18/2023) * URIC ACID BLOOD(Performed 12/18/2023) * LDH BLOOD(Performed 12/18/2023) * PHOSPHORUS BLOOD(Performed 12/18/2023) * MAGNESIUM BLOOD(Performed 12/18/2023) * COMPREHENSIVE METABOLIC PANEL(Performed 12/18/2023) * CBC W AUTO DIFFERENTIAL(Performed 12/18/2023) * US ABDOMEN LIMITED(Performed 12/18/2023) Performed for Sickle cell crisis (HCC) * DIFFERENTIAL MANUAL(Performed 12/18/2023) * PTT SLH(Performed 12/18/2023) * PT-INR SLH(Performed 12/18/2023) * FIBRINOGEN ACTIVITY(Performed 12/18/2023) * D-DIMER(Performed 12/18/2023) * HAPTOGLOBIN(Performed 12/18/2023) * URIC ACID BLOOD(Performed 12/18/2023) * LDH BLOOD(Performed 12/18/2023) * PHOSPHORUS BLOOD(Performed 12/18/2023) * MAGNESIUM BLOOD(Performed 12/18/2023) * COMPREHENSIVE METABOLIC PANEL(Performed 12/18/2023) * LIPID PROFILE(Performed 12/18/2023) * HEMOGLOBIN A1C(Performed 12/18/2023) * CBC W AUTO DIFFERENTIAL(Performed 12/18/2023) * IMMUNOFLUORESCENT STUDY DERM(Performed 12/18/2023) Performed for Rash and other nonspecific skin eruption * DERMATOPATHOLOGY(Performed 12/18/2023) Performed for Rash and other nonspecific skin eruption * LACTIC ACID BLOOD(Performed 12/17/2023) * GLUCOSE - POINT OF CARE(Performed 12/17/2023) * GLUCOSE - POINT OF CARE(Performed 12/17/2023) * GLUCOSE - POINT OF CARE(Performed 12/17/2023) * GLUCOSE - POINT OF CARE(Performed 12/17/2023) * GLUCOSE - POINT OF CARE(Performed 12/17/2023) * DIFFERENTIAL MANUAL(Performed 12/17/2023) * PTT SLH(Performed 12/17/2023) * PT-INR SLH(Performed 12/17/2023) * FIBRINOGEN ACTIVITY(Performed 12/17/2023) * D-DIMER(Performed 12/17/2023) * HAPTOGLOBIN(Performed 12/17/2023) * URIC ACID BLOOD(Performed 12/17/2023) * LDH BLOOD(Performed 12/17/2023) * PHOSPHORUS BLOOD(Performed 12/17/2023) * MAGNESIUM BLOOD(Performed 12/17/2023) * COMPREHENSIVE METABOLIC PANEL(Performed 12/17/2023) * CBC W AUTO DIFFERENTIAL(Performed 12/17/2023) * DIFFERENTIAL MANUAL(Performed 12/17/2023) * CBC W AUTO DIFFERENTIAL(Performed 12/17/2023) * VANCOMYCIN LEVEL RANDOM(Performed 12/17/2023) * DIFFERENTIAL MANUAL(Performed 12/17/2023) * PARVOVIRUS B19 ANTIBODY IGM(Performed 12/17/2023) * PARVOVIRUS B19 ANTIBODY IGG(Performed 12/17/2023) * CYTOMEGALOVIRUS ANTIBODY IGG BLOOD(Performed 12/17/2023) * CYTOMEGALOVIRUS ANTIBODY IGM BLOOD(Performed 12/17/2023) * ZEUS-CANTU VIRUS ANTIBODY TO VCA IGM(Performed 12/17/2023) * ZEUS-CANTU VIRUS ANTIBODY TO VCA IGG(Performed 12/17/2023) * PTT SLH(Performed 12/17/2023) * HAPTOGLOBIN(Performed 12/17/2023) * LDH BLOOD(Performed 12/17/2023) * D-DIMER(Performed 12/17/2023) * URIC ACID BLOOD(Performed 12/17/2023) * CBC W AUTO DIFFERENTIAL(Performed 12/17/2023) * VANCOMYCIN LEVEL RANDOM(Performed 12/17/2023) * DIFFERENTIAL MANUAL(Performed 12/17/2023) * FIBRINOGEN ACTIVITY(Performed 12/17/2023) * PT-INR SLH(Performed 12/17/2023) * MAGNESIUM BLOOD(Performed 12/17/2023) * RENAL FUNCTION PANEL(Performed 12/17/2023) * CBC W AUTO DIFFERENTIAL(Performed 12/17/2023) * VANCOMYCIN LEVEL TROUGH(Performed 12/16/2023) * GLUCOSE - POINT OF CARE(Performed 12/16/2023) * PT-INR SLH(Performed 12/16/2023) * HEPATIC FUNCTION PANEL(Performed 12/16/2023) * HEMOGLOBIN ELECTROPHORESIS(Performed 12/16/2023) Performed for Acute chest syndrome (HCC) * TRANSFUSE RED BLOOD CELL LEUKOREDUCED UNIT(S)(Performed 12/16/2023) * TRANSFUSE RED BLOOD CELL LEUKOREDUCED UNIT(S)(Performed 12/16/2023) * TRANSFUSE RED BLOOD CELL LEUKOREDUCED UNIT(S)(Performed 12/16/2023) * TRANSFUSE RED BLOOD CELL LEUKOREDUCED UNIT(S)(Performed 12/16/2023) * TRANSFUSE RED BLOOD CELL LEUKOREDUCED UNIT(S)(Performed 12/16/2023) * TRANSFUSE RED BLOOD CELL LEUKOREDUCED UNIT(S)(Performed 12/16/2023) * TRANSFUSE RED BLOOD CELL LEUKOREDUCED UNIT(S)(Performed 12/16/2023) * TRANSFUSE RED BLOOD CELL LEUKOREDUCED UNIT(S)(Performed 12/16/2023) * CALCIUM IONIZED WHOLE BLOOD(Performed 12/16/2023) Performed for Hypocalcemia * PREPARE RBC LEUKOREDUCED UNIT(Performed 12/16/2023) * PREPARE RBC LEUKOREDUCED UNIT(Performed 12/16/2023) Performed for Acute chest syndrome (HCC) * TRANSFUSE CRYOPRECIPITATE UNIT(S)(Performed 12/16/2023) * PREPARE CRYOPRECIPITATE UNIT(S)(Performed 12/16/2023) * MRSA DNA PCR(Performed 12/16/2023) * GLUCOSE - POINT OF CARE(Performed 12/16/2023) * PT-INR SLH(Performed 12/16/2023) * TROPONIN-I HIGH SENSITIVE(Performed 12/16/2023) * HEPATIC FUNCTION PANEL(Performed 12/16/2023) * FIBRINOGEN ACTIVITY(Performed 12/16/2023) * XR CHEST 1VW PORTABLE(Performed 12/16/2023) Performed for Sickle cell crisis (HCC) * GLUCOSE - POINT OF CARE(Performed 12/16/2023) * DIFFERENTIAL MANUAL(Performed 12/16/2023) * RETIC COUNT(Performed 12/16/2023) * CBC W AUTO DIFFERENTIAL(Performed 12/16/2023) * EKG 12-LEAD(Performed 12/16/2023) Performed for Acute chest syndrome (HCC), Acute hypoxic respiratory failure (HCC), Sinus tachycardia, History of pulmonary embolism * LACTIC ACID BLOOD REFLEX TO REPEAT(Performed 12/16/2023) * PT-INR SLH(Performed 12/16/2023) * TROPONIN-I HIGH SENSITIVE(Performed 12/16/2023) * MAGNESIUM BLOOD(Performed 12/16/2023) * RENAL FUNCTION PANEL(Performed 12/16/2023) * DIFFERENTIAL MANUAL(Performed 12/16/2023) * HEPATIC FUNCTION PANEL(Performed 12/16/2023) * VANCOMYCIN LEVEL RANDOM(Performed 12/16/2023) * CBC W AUTO DIFFERENTIAL(Performed 12/16/2023) * LACTIC ACID BLOOD REFLEX TO REPEAT(Performed 12/16/2023) * PTT [facility](Performed 12/16/2023) * HAPTOGLOBIN(Performed 12/16/2023) * LDH BLOOD(Performed 12/16/2023) * FOLATE(Performed 12/16/2023) * VITAMIN B12(Performed 12/16/2023) * PT-INR [facility](Performed 12/16/2023) * TROPONIN-I HIGH SENSITIVE(Performed 12/16/2023) * TRANSFUSE RED BLOOD CELL LEUKOREDUCED UNIT(S)(Performed 12/16/2023) * PREPARE RBC LEUKOREDUCED UNIT(Performed 12/16/2023) * GLUCOSE - POINT OF CARE(Performed 12/16/2023) * TRANSFUSE RED BLOOD CELL LEUKOREDUCED UNIT(S)(Performed 12/16/2023) * BLOOD TYPE VERIFICATION(Performed 12/16/2023) * TYPE + SCREEN PANEL(Performed 12/16/2023) * CALCIUM IONIZED WHOLE BLOOD(Performed 12/16/2023) * LACTIC ACID BLOOD REFLEX TO REPEAT(Performed 12/16/2023) * ACETAMINOPHEN LEVEL(Performed 12/16/2023) * HEPATIC FUNCTION PANEL(Performed 12/16/2023) * GLUCOSE - POINT OF CARE(Performed 12/16/2023) * HEMOGLOBIN S QUANTITATIVE(Performed 12/16/2023) * HEPATIC FUNCTION PANEL(Performed 12/16/2023) * TROPONIN-I HIGH SENSITIVE(Performed 12/16/2023) * CULTURE BLOOD(Performed 12/15/2023) * CULTURE BLOOD(Performed 12/15/2023) * EKG 12-LEAD(Performed 12/15/2023) Performed for Sickle cell crisis (HCC), Sickle cell disease, type sc, 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) * VANCOMYCIN LEVEL RANDOM(Performed 12/15/2023) * XR CHEST 1VW PORTABLE(Performed 12/15/2023) Performed for Sickle cell crisis (HCC), Sickle cell disease, type sc, 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) * B-TYPE NATRIURETIC PEPTIDE(Performed 12/15/2023) * DIFFERENTIAL MANUAL(Performed 12/15/2023) * C-REACTIVE PROTEIN(Performed 12/15/2023) * PHOSPHORUS BLOOD(Performed 12/15/2023) * MAGNESIUM BLOOD(Performed 12/15/2023) * PROCALCITONIN LEVEL(Performed 12/15/2023) * D-DIMER(Performed 12/15/2023) * PT-INR [facility](Performed 12/15/2023) * CK BLOOD(Performed 12/15/2023) * HAPTOGLOBIN(Performed 12/15/2023) * LDH BLOOD(Performed 12/15/2023) * CBC W AUTO DIFFERENTIAL(Performed 12/15/2023) * COMPREHENSIVE METABOLIC PANEL(Performed 12/15/2023) * GLUCOSE - POINT OF CARE(Performed 12/15/2023) * COMPREHENSIVE METABOLIC PANEL(Performed 01/30/2018) * XR CHEST 1VW PORTABLE(Performed 01/30/2018) Performed for Sickle cell crisis (HCC) * SLIDE SCAN HEMATOLOGY(Performed 01/30/2018) * RETIC COUNT(Performed 01/30/2018) * CBC W AUTO DIFFERENTIAL(Performed 01/30/2018) * SLIDE SCAN HEMATOLOGY(Performed 01/27/2018) * RETIC COUNT(Performed 01/27/2018) * COMPREHENSIVE METABOLIC PANEL(Performed 01/27/2018) * CBC W AUTO DIFFERENTIAL(Performed 01/27/2018) * XR CHEST 2VW(Performed 01/06/2018) Performed for Rib pain, Sickle cell pain crisis (HCC) * SLIDE SCAN HEMATOLOGY(Performed 01/06/2018) * RETIC COUNT(Performed 01/06/2018) * COMPREHENSIVE METABOLIC PANEL(Performed 01/06/2018) * CBC W AUTO DIFFERENTIAL(Performed 01/06/2018) * RETIC COUNT(Performed 12/30/2017) * SLIDE SCAN HEMATOLOGY(Performed 12/30/2017) * COMPREHENSIVE METABOLIC PANEL(Performed 12/30/2017) * CBC W AUTO DIFFERENTIAL(Performed 12/30/2017) * SLIDE SCAN HEMATOLOGY(Performed 11/22/2017) * RETIC COUNT(Performed 11/22/2017) * COMPREHENSIVE METABOLIC PANEL(Performed 11/22/2017) * CBC W AUTO DIFFERENTIAL(Performed 11/22/2017) * HEMOGLOBIN ELECTROPHORESIS(Performed 07/23/2017) 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) * RETIC COUNT(Performed 07/23/2017) 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) * COMPREHENSIVE METABOLIC PANEL(Performed 07/23/2017) 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) * CBC W AUTO DIFFERENTIAL(Performed 07/23/2017) 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) * PANEL [id number](Performed 06/25/2017) * OPIATES URINE CONFIRM RFLXED(Performed 06/25/2017) * DRUG ABUSE PANEL 10-20+ETHANOL URINE NO CONFIRM(Performed 06/25/2017) * FERRITIN(Performed 06/25/2017) * CBC W AUTO DIFFERENTIAL(Performed 06/25/2017) * COMPREHENSIVE METABOLIC PANEL(Performed 05/28/2017) * CBC W AUTO DIFFERENTIAL(Performed 05/28/2017) * VITAMIN D 25-HYDROXY(Performed 05/07/2017) * COMPREHENSIVE METABOLIC PANEL(Performed 05/07/2017) * CBC W AUTO DIFFERENTIAL(Performed 05/07/2017) * COMPREHENSIVE METABOLIC PANEL(Performed 04/09/2017) * CBC W AUTO DIFFERENTIAL(Performed 04/09/2017) * PANEL [id number](Performed 2017) * DRUG ABUSE PANEL 10-20+ETHANOL URINE NO CONFIRM(Performed 2017) * CBC W AUTO DIFFERENTIAL(Performed 2017) * OXYCODONE URINE CONFIRMATION(Performed 03/12/2017) * OPIATES URINE CONFIRM RFLXED(Performed 03/12/2017) * DRUG ABUSE PANEL 10-20+ETHANOL URINE NO CONFIRM(Performed 03/12/2017) * HEMOGLOBIN ELECTROPHORESIS(Performed 03/12/2017) * FERRITIN(Performed 03/12/2017) * RETIC COUNT(Performed 03/12/2017) * COMPREHENSIVE METABOLIC PANEL(Performed 03/12/2017) * URINALYSIS REFLEX TO MICROSCOPIC NO CULTURE(Performed 03/12/2017) * CBC W AUTO DIFFERENTIAL(Performed 03/12/2017) * TRANSFUSE FRESH FROZEN PLASMA UNIT(S) * TRANSFUSE CRYOPRECIPITATE UNIT(S) * TRANSFUSE CRYOPRECIPITATE UNIT(S) * TRANSFUSE CRYOPRECIPITATE UNIT(S) * TRANSFUSE CRYOPRECIPITATE UNIT(S) Results * (ABNORMAL) PT-INR [facility] (12/29/2023 2:43 AM CDT) Only the most recent of31 resultswithin the time period is included. [facility] PT 22.4(H) 12.1 - 14.8 Seconds 12/29/2023 3:40 AM [facility] INR 2.0 See Comment 12/29/2023 3:40 AM [facility] Comment:The suggested therap eutic range for standard coumadin (warfarin) therapy is an INR of 2.0-3.0. For high-risk patients (Mechanical Mitral Valve Prosthesis, etc.), the suggested prophylactic therapeutic range is an INR of 2.5-3.5. Blood BLOOD SPECIMEN / Unknown Lab Venipuncture / Unknown 12/29/2023 2:43 AM CDT 12/29/2023 3:18 AM CDT Natalia Marks MD LAB - COAGULATION OR DERABLES Performing Organization Address City/State/[facility] Co de Phone Number [facility] [address] [place] [phone] [phone] * (ABNORMAL) CBC W AUTO DIFFERENTIAL (12/26/2023 1:55 AM CDT) Only the most recent of40 resultswithin the time period is included. [facility] WBC 16.8(H) 4.0 - 10.7 x10E9/L 12/26/2023 2:42 AM [facility] RBC Count 2.81(L) 4.30 - 5.80 x10E12/L 12/26/2023 2:42 AM [facility] Hemoglobin 8.2(L) 13.3 - 17.5 g/dL 12/26/2023 2:42 AM [facility] Hematocrit 25.8(L) 38.7 - 51.1 % 12/26/2023 2:42 AM [facility] MCV 91.8 80.0 - 98.0 fL 12/26/2023 2:42 AM [facility] MCH 29.2 26.7 - 33.6 pg 12/26/2023 2:42 AM [facility] MCHC 31.8 31.7 - 36.3 g/dL 12/26/2023 2:42 AM [facility] RDW-CV 15.4(H) 11.3 - 14.8 % 12/26/2023 2:42 AM [facility] Platelet Count 793(H) 150 - 420 x10E9/L 12/26/2023 2:42 AM [facility] MPV 11.4 7.8 - 11.4 fL 12/26/2023 2:42 AM [facility] Neutrophil % 66.2 41.0 - 74.0 % 12/26/2023 2:42 AM [facility] Lymphocyte % 23.2 17.0 - 47.0 % 12/26/2023 2:42 AM [facility] Monocyte % 8.4 3.0 - 11.0 % 12/26/2023 2:42 AM [facility] Eosinophil % 1.2 0.0 - 7.0 % 12/26/2023 2:42 AM [facility] Basophil % 0.5 0.0 - 1.6 % 12/26/2023 2:42 AM [facility] Immature Granulocytes % 0.5 0.0 - 1.0 % 12/26/2023 2:42 AM [facility] Neutrophil Absolute 11.17(H) 1.60 - 7.50 x10E9/L 12/26/2023 2:42 AM [facility] Lymphocyte Absolute 3.90 1.00 - 4.40 x10E9/L 12/26/2023 2:42 AM [facility] Monocyte Absolute 1.41(H) 0.15 - 1.00 x10E9/L 12/26/2023 2:42 AM [facility] Eosinophil Absolute 0.20 0.00 - 0.60 x10E9/L 12/26/2023 2:42 AM [facility] Basophil Absolute 0.08 0.00 - 0.13 x10E9/L 12/26/2023 2:42 AM [facility] NRBC 0.8(H) <=0.0 /100 WBC 12/26/2023 2:42 AM [facility] Blood BLOOD SPECIMEN / Unknown Lab Venipuncture / Unknown 12/26/2023 1:55 AM CDT 12/26/2023 2:32 AM CDT Natalia Marks MD LAB - HEMATOLOGY ORD ERABLES [facility] [address] [place] [address], [facility] [phone] * (ABNORMAL) COMPREHENSIVE METABOLIC PANEL (12/26/2023 1:54 AM CDT) Only the most recent of33 resultswithin the time period is included. BUN 8 7 - 26 mg/dL 12/26/2023 3:11 AM [facility] Creatinine 1.14 0.71 - 1.16 mg/dL 12/26/2023 3:11 AM [facility] Sodium 138 136 - 145 mmol/L 12/26/2023 3:11 AM [facility] Potassium 3.8 3.5 - 4.5 mmol/L 12/26/2023 3:11 AM [facility] Chloride 106 98 - 107 mmol/L 12/26/2023 3:11 AM [facility] CO2 24 22 - 29 mmol/L 12/26/2023 3:11 AM [facility] Glucose 107 70 - 115 mg/dL 12/26/2023 3:11 AM [facility] Calcium 9.2 8.4 - 10.2 mg/dL 12/26/2023 3:11 AM [facility] Protein Total 8.3 6.0 - 8.3 g/dL 12/26/2023 3:11 AM [facility] Albumin 2.7(L) 3.4 - 5.0 g/dL 12/26/2023 3:11 AM [facility] Bilirubin Total 0.6 0.2 - 1.2 mg/dL 12/26/2023 3:11 AM [facility] Alkaline Phosphatase 79 40 - 150 U/L 12/26/2023 3:11 AM [facility] ALT 52 5 - 55 U/L 12/26/2023 3:11 AM [facility] AST 24 5 - 34 U/L 12/26/2023 3:11 AM [facility] Anion Gap 8 6 - 16 12/26/2023 3:11 AM [facility] BUN/Creatinine Ratio 7 7 - 23 12/26/2023 3:11 AM [facility] Osmolality Calculated 285 275 - 295 mOsm/kg 12/26/2023 3:11 AM [facility] Albumin/Globulin Ratio 0.5(L) 1.1 - 2.3 12/26/2023 3:11 AM [facility] eGFR by CKD-EPI 83(L) >=90 mL/min/1.7 3 m2 12/26/2023 3:11 AM [facility] Blood BLOOD SPECIMEN / Unknown Lab Venipuncture / Unknown 12/26/2023 1:54 AM CDT 12/26/2023 2:57 AM CDT Natalia Marks MD LAB - CHEMISTRY NAZARIO GRANT [address] [address], [facility] [phone] * PHOSPHORUS BLOOD (12/26/2023 1:54 AM CDT) Only the most recent of23 resultswithin the time period is included. Phosphorus 4.0 2.8 - 5.1 mg/dL 12/26/2023 3:11 AM [facility] Blood BLOOD SPECIMEN / Unknown Lab Venipuncture / Unknown 12/26/2023 1:54 AM CDT 12/26/2023 2:57 AM CDT Natalia Marks MD LAB - CHEMISTRY NAZARIO GRANT [address] [address], [facility] [phone] * MAGNESIUM BLOOD (12/26/2023 1:54 AM CDT) Only the most recent of25 resultswithin the time period is included. Magnesium 2.1 1.6 - 2.6 mg/dL 12/26/2023 3:11 AM CDT [facility] Blood BLOOD SPECIMEN / Unknown Lab Venipuncture / Unknown 12/26/2023 1:54 AM CDT 12/26/2023 2:57 AM CDT Natalia Marks MD LAB - CHEMISTRY NAZARIO GRANT [address] [address], [facility] [phone] * (ABNORMAL) GLUCOSE - POINT OF CARE (12/25/2023 10:30 PM CDT) Only the most recent of38 resultswithin the time period is included. [facility] Glucose WB/POC 117(H) 70 - 115 mg/dL 12/25/2023 11:10 PM CDT [facility] Specimen Type Cap Fingerstick 2023 11:10 PM CDT [facility] Blood BLOOD SPECIMEN / Unknown 12/25/2023 10:30 PM CDT 12/25/2023 11:10 PM CDT Arnaud Garrido MD LAB - POINT OF CARE ORDERABLES Performing Organization Address [facility]/ZIP Co de Phone Number [address] [phone], [facility] [phone] * (ABNORMAL) PTT [facility] (12/25/2023 11:45 AM CDT) Only the most recent of23 resultswithin the time period is included. Pathologist [facility] APTT 39.9(H) 23.0 - 38.4 Seconds 12/25/2023 12:25 PM CDT [facility] Comment:Suggested therapeuti c range for full dose I.V. unfractionated heparin therapy for venous thromboembolism is 71 to 109 seconds. Blood BLOOD SPECIMEN / Unknown Lab Venipuncture / Unknown 12/25/2023 11:45 AM CDT 12/25/2023 11:58 AM CDT German Damon MD LAB - COAGULATION OR DERABLES Performing Organization Address City/[facility]/ZIP Co de Phone Number [address] [address], [facility] [phone] * URIC ACID BLOOD (12/25/2023 11:45 AM CDT) Only the most recent of22 resultswithin the time period is included. Uric Acid 3.6 3.5 - 7.2 mg/dL 12/25/2023 12:31 PM CDT [facility] Blood BLOOD SPECIMEN / Unknown Lab Venipuncture / Unknown 12/25/2023 11:45 AM CDT 12/25/2023 12:06 PM CDT German Damon MD LAB - CHEMISTRY ORDE RABLES Performing Organization Address [facility]/ZIP Co de Phone Number [address] [address], [facility] [phone] * (ABNORMAL) D-DIMER (12/25/2023 11:45 AM CDT) Only the most recent of23 resultswithin the time period is included. Pathologist [facility] D-Dimer Quantitative 2.40(H) <=0.50 mcg/mL FEU 12/25/2023 12:26 PM CDT [facility] Comment: In the absence of clinical symptoms, a value less than or equal to 0.5 mcg/mL FEU significantly decreases the probability of PE/DVT (negative predictive value >95%). 1 mcg/mL FEU = 1 Fibrinogen Equivalent Unit (approximates 0.5 mcg/ml of D- Dimer). ISTH DIAGNOSTIC SCORING SYSTEM FOR DIC Score 0 1 2 3 Platelet Count(x10^3/uL) > 100 < 100 < 50 N/A PT Prolongation above upper limit of normal 0-3 3-6 > 6 N/A range (seconds) Fibrinogen (mg/dL) > 100 < 100 N/A N/A D-Dimer (mcg/mL FEU) < 0.50 N/A 0.50-5.0 > 5 Calculate Cumulative Score: > or = 5 :compatible with overt DIC < 5 :suggestive for non-overt DIC N/A = Non applicable Reference: Br. J. Haematol. 145:24-33,2009. Blood BLOOD SPECIMEN / Unknown Lab Venipuncture / Unknown 12/25/2023 11:45 AM CDT 12/25/2023 11:58 AM CDT German Damon MD LAB - COAGULATION OR DERABLES [address] [address], [facility] [phone] * (ABNORMAL) FIBRINOGEN ACTIVITY (12/25/2023 11:45 AM CDT) Only the most recent of23 resultswithin the time period is included. Fibrinogen Clauss 676(H) 200 - 400 mg/dL 12/25/2023 12:24 PM [facility] Blood BLOOD SPECIMEN / Unknown Lab Venipuncture / Unknown 12/25/2023 11:45 AM CDT 12/25/2023 11:58 AM CDT German Damon MD LAB - COAGULATION OR DERABLES [facility] [address] [place] [phone], [facility] [phone] * (ABNORMAL) DIFFERENTIAL MANUAL (12/25/2023 11:45 AM CDT) Only the most recent of27 resultswithin the time period is included. Neutrophil % 84(H) 41 - 74 % 12/25/2023 12:41 PM [facility] Lymphocyte % 10(L) 17 - 47 % 12/25/2023 12:41 PM [facility] Monocyte % 5 3 - 11 % 12/25/2023 12:41 PM [facility] Eosinophil % 1 0 - 7 % 12/25/2023 12:41 PM [facility] Neutrophil Absolute 16.80(H) 1.60 - 7.50 x10E9/L 12/25/2023 12:41 PM [facility] Lymphocyte Absolute 2.00 1.00 - 4.40 x10E9/L 12/25/2023 12:41 PM [facility] Monocyte Absolute 1.00 0.15 - 1.00 x10E9/L 12/25/2023 12:41 PM [facility] Eosinophil Absolute 0.20 0.00 - 0.60 x10E9/L 12/25/2023 12:41 PM [facility] RBC Morphology REVIEWED 12/25/2023 12:41 PM [facility] Sydney Cells MODERATE(A) (none) 12/25/2023 12:41 PM CDT [facility] Schistocytes MODERATE(A) (none) 12/25/2023 12:41 PM CDT [facility] Stomatocytes MODERATE(A) (none) 12/25/2023 12:41 PM CDT [facility] Target Cells MODERATE(A) (none) 12/25/2023 12:41 PM CDT [facility] Blood BLOOD SPECIMEN / Unknown Lab Venipuncture / Unknown 12/25/2023 11:45 AM CDT 12/25/2023 12:06 PM CDT German Damon MD LAB - HEMATOLOGY ORD ERABLES [address] [address], [place] [phone] * (ABNORMAL) LDH BLOOD (12/25/2023 11:45 AM CDT) Only the most recent of24 resultswithin the time period is included. LDH Total 281(H) 125 - 243 Units/L 12/25/2023 12:31 PM CDT [facility] Blood BLOOD SPECIMEN / Unknown Lab Venipuncture / Unknown 12/25/2023 11:45 AM CDT 12/25/2023 12:06 PM CDT German Damon MD LAB - CHEMISTRY ORDE RABLOYDA [address] [address], [place] [phone] * HAPTOGLOBIN (12/25/2023 11:45 AM CDT) Only the most recent of24 resultswithin the time period is included. Haptoglobin 186 14 - 258 mg/dL 12/25/2023 12:31 PM CDT [facility] Blood BLOOD SPECIMEN / Unknown Lab Venipuncture / Unknown 12/25/2023 11:45 AM CDT 12/25/2023 11:58 AM CDT German Damon MD LAB - CHEMISTRY NAZARIO GRANT [facility] Organization Address City/State/ZIP Co de Phone Number [place] [phone] [place] [address], [facility] [phone] * ECHO PATRICK COMPLETE (12/24/2023 12:08 PM CDT) LA vol index 0.026 l/m SSM CV FUJI PACS LA vol BP 57.643 ml SSM CV FUJ I PACS TR pk tarik 185.961 cm/s SSM CV FUJ I PACS RA area 18.297 cm SSM CV FUJI PACS RV-robertson basal diam 4.354 cm SSM CV FUJI PACS TAPSE 2.3 cm SSM CV FUJ I PACS RVIDd 3.384 cm SSM CV FUJ I PACS RV-robertson mid diam 4.177 cm SSM CV FUJI PACS LVOT VTI 11.846 cm SSM CV FUJ I PACS LVOT pk tarik 69.068 cm/s SSM CV F UJI PACS AV pk tarik 87.293 cm/s SSM CV FUJ I PACS AV VTI 15.005 cm SSM CV FUJ I PACS AV mn grad 1.553 mmHg SSM CV FU JI PACS RVOT pk tarik 76.827 cm/s SSM CV F UJI PACS PV pk tarik 105.817 cm/s SSM CV FUJ I PACS RVOT VTI 10.972 cm SSM CV FUJ I PACS PV VTI 15.865 cm SSM CV FUJ I PACS Main PA diam 2.978 cm SSM CV FUJI PACS Aortic annulus 2.919 cm SSM C V FUJI PACS Sinus of Valsalva 3.509 cm SSM CV FUJI PACS ST junction 2.915 cm SSM CV F UJI PACS IVC Diam Expiration 1.758 cm SSM CV FUJI PACS Ascending aorta 3.005 cm SSM CV FUJI PACS LV A4C EF 64.321 % SSM CV FUJ I PACS LV A2C EF 58.522 % SSM CV FUJ I PACS LV biplane EF 62.129 % SSM CV FUJI PACS MV E pk tarik 85.326 cm/s SSM CV F UJI PACS MV A pk tarik 84.625 cm/s SSM CV F UJI PACS MV E' lateral tarik 9.034 cm/s SSM CV FUJI PACS MV lat a' tarik 12.839 cm/s SSM CV FUJI PACS MV VTI 14.326 cm SSM CV FUJ I PACS LV EDV A4C 115.053 ml SSM CV FU JI PACS LV ESV A4C 41.049 ml SSM CV FU JI PACS LV EDV A2C 114.26 ml SSM CV FU JI PACS LV ESV A2C 47.393 ml SSM CV FU JI PACS MV lat S' tarik 5.746 cm/s SSM CV FUJI PACS MV mn grad 1.707 mmHg SSM CV FU JI PACS IVSd 2D 0.879 cm SSM CV FUJ I PACS LVIDd 5.161 cm SSM CV FUJ I PACS LVPWd 0.963 cm SSM CV FUJ I PACS LVIDs 3.266 cm SSM CV FUJ I PACS Anatomical Region Laterality Modality Ultrasound 12/24/2023 11:1 6 AM CDT Narrative 01/07/2024 9:31 AM CDT Summary * The transesophageal echocardiogram is normal by two-dimensional, color flow imaging, and Doppler interrogation. * The left ventricle is normal in size, with normal systolic function and an estimated ejection fraction of 62 % by biplane method of disks. Left ventricular wall motion is normal. * Right ventricle is at the upper limits of normal in size with normal systolic function. * No significant valvular abnormalities. * No hemodynamically significant valve disease. * No vegetations or intracardiac masses noted. * No significant change since prior study from 12/18/2023. * The left ventricle is normal in size. * Left ventricular systolic function is normal with an estimated ejection fraction of 62 % by biplane method of disks. * Left ventricular segmental wall motion is normal. * The left ventricular mass is normal. * The left ventricular diastolic function is normal. * The right ventricle is at the upper limits of normal in size. * Right ventricular systolic function is normal. * The left atrium is normal in size with a left atrial volume index of 26 ml/m2 by BP MOD. * No mass or thrombus formation in the left atrium. * The right atrium is normal in size. Volume index 25 ml/M2. * No mass or thrombus formation in the right atrium. * Intact interatrial septum visualized by 2D and color Doppler and agitated saline imaging. Fossa ovalis dimensions 1.6 cm diameter and area 2.04 cm2. * Agitated saline contrast study at rest and with Valsalva is negative for a shunt. * The left atrial appendage is windsock shaped with normal velocity, and there is no thrombus. * Left atrial appendage measures 19 mm wide by 33 mm deep at 0 degrees, 15 mm wide by 39 mm deep at 45 degrees, 15 mm wide by 28 mm deep at 90 degrees, and 17 mm wide by 20 mm deep at 135 degrees. TOMMY area is 5.2 cm2 in 4Ch 0 degree plane and 3.6 cm2 in 2Ch 90 degree plane. 3D assessment of TOMMY orifice dimensions 1.2 x 2.9 cm and area 3.25 cm2. * Right atrial appendage is free of thrombus formation. RAA dimensions are 3.8 x 3.9 cm and depth 0.9 cm. RAA orifice area 12.5 cm2. No clots or debris. * Average right atrial appendage ejection velocity is normal at 44 cm/s. * The aortic valve is trileaflet. Coronary ostia located 12 (LCA) and 15 mm (RCA) above the AV annulus by 3D imaging. * There is no aortic valve stenosis with a peak velocity of 1 m/s, mean gradient of 2 mmHg, and aortic valve area of 4.91 cm2. Valve area index 2.2 cm2/M2. Stroke volume index 33 ml/M2. Cardiac index > 2.4 L/min/M2. * Mitral valve area by 2D Planimetry is 5.64 cm2. * There is trace mitral valve regurgitation. * Mitral valve regurgitant fraction by pulsed Doppler quantitative flow method is 2 %. * Mitral valve regurgitant volume by pulsed Doppler quantitative flow method is 1.34 ml. * There is trace tricuspid valve regurgitation. * The pulmonary artery systolic pressure is normal, 17 mmHg. Mean PA pressure of 13 mmHg. PVR 1.85 Wood units. * The ascending aorta is normal in size measuring 3.0 cm with an index of 1.3 cm/m2. * The descending aortic arch is normal in size measuring 2.4 cm. No atheroma. * There is > 50% collapse of the IVC upon inspiration with an estimated right atrial pressure of 3 mmHg. * There is no pericardial effusion. Patient Info Name: Quan Downing Age: 38 years : 1985 Gender: Male Ht: 70 in Wt: 216 lb BSA: 2.23 m2 HR: 75 bpm BP: 126 / 74 mmHg Heart Rhythm: Sinus Rhythm Exam Date: 12/24/2023 11:16 AM Patient Status: I/P Study Site: [facility] Primary Location: [facility] EStudy Info Exam Type: ECHO PATRICK COMPLETE Indications R78.81 - Gram-positive bacteremia D57.01 - Acute chest syndrome (HCC) * A 2D, 3D, color Doppler, spectral Doppler and M-Mode transesophageal echocardiogram was performed with a Bubble Study. * During the study the esophageal, transgastric, and descending thoracic views were captured. Staff Referring Physician: Kathy Uriostegui Ordering Provider: Kathy Uriostegui Attending Physician: Kathy Uriostegui Mba Intern: Hua Wiley Complications * There were no complications prior to, during or in recovery from the transesophageal echocardiogram. Medications * Sedation administered and monitored by anesthesia staff. * The patient was premedicated with 100-175 mcg/kg/min intravenous Propofol. Procedure Details The patient arrived in a fasting state after obtaining informed consent. The transesophageal probe was passed without difficulty into the posterior pharynx, mid-esophagus, distal esophagus, and gastric fundus. Imaging was performed at multiple levels. The patient tolerated the procedure well and there were no complications. The patient was transferred out of the examination area in satisfactory condition. Left Ventricle The left ventricle is normal in size. Left ventricular systolic function is normal with an estimated ejection fraction of 62 % by biplane method of disks. Left ventricular segmental wall motion is normal. The left ventricular mass is normal. The left ventricular diastolic function is normal. Right Ventricle The right ventricle is at the upper limits of normal in size. Right ventricular systolic function is normal. Right ventricular wall thickness is normal. Ventricular Septum Intact interventricular septum visualized by 2D and color Doppler imaging. Left Atrium The left atrium is normal in size with a left atrial volume index of 26 ml/m2 by BP MOD. No mass or thrombus formation in the left atrium. Right Atrium The right atrium is normal in size. Volume index 25 ml/M2. No mass or thrombus formation in the right atrium. Atrial Septum Intact interatrial septum visualized by 2D and color Doppler and agitated saline imaging. Fossa ovalis dimensions 1.6 cm diameter and area 2.04 cm2. Agitated saline contrast study at rest and with Valsalva is negative for a shunt. Atrial Appendage The left atrial appendage is windsock shaped with normal velocity, and there is no thrombus. There is no thrombus noted in the left atrial appendage. Left atrial appendage measures 19 mm wide by 33 mm deep at 0 degrees, 15 mm wide by 39 mm deep at 45 degrees, 15 mm wide by 28 mm deep at 90 degrees, and 17 mm wide by 20 mm deep at 135 degrees. TOMMY area is 5.2 cm2 in 4Ch 0 degree plane and 3.6 cm2 in 2Ch 90 degree plane. 3D assessment of TOMMY orifice dimensions 1.2 x 2.9 cm and area 3.25 cm2. Left atrial appendage emptying velocity is 92.2 cm/s. Right atrial appendage is free of thrombus formation. RAA dimensions are 3.8 x 3.9 cm and depth 0.9 cm. RAA orifice area 12.5 cm2. No clots or debris. Average right atrial appendage ejection velocity is normal at 44 cm/s. Aortic Valve The aortic valve is trileaflet. Coronary ostia located 12 (LCA) and 15 mm (RCA) above the AV annulus by 3D imaging. There is no aortic valve stenosis with a peak velocity of 1 m/s, mean gradient of 2 mmHg, and aortic valve area of 4.91 cm2. Valve area index 2.2 cm2/M2. Stroke volume index 33 ml/M2. Cardiac index > 2.4 L/min/M2. There is no significant aortic valve regurgitation. Pulmonic Valve The pulmonic valve is normal. There is no pulmonic valve stenosis. There is no significant pulmonic regurgitation. Pulmonary valve area by Continuity Equation is 4.6 cm2. Mitral Valve The mitral valve is normal. There is no mitral valve stenosis. There is trace mitral valve regurgitation. Mitral valve diastolic mean gradient is 2 mmHg. Mitral valve area by 2D Planimetry is 5.64 cm2. Mitral valve regurgitant volume by pulsed Doppler quantitative flow method is 1.34 ml. Mitral valve regurgitant fraction by pulsed Doppler quantitative flow method is 2 %. Tricuspid Valve The pulmonary artery systolic pressure is normal, 17 mmHg. Mean PA pressure of 13 mmHg. PVR 1.85 Wood units. The tricuspid valve is normal. There is no significant tricuspid valve stenosis. There is trace tricuspid valve regurgitation. its. Pulmonary Veins Pulmonary veins are normal by two-dimensional and color flow imaging. Pericardium/Pleural There is no pericardial effusion. Inferior Vena Cava The inferior vena cava is normal in size (< 2.1 cm). There is > 50% collapse of the IVC upon inspiration with an estimated right atrial pressure of 3 mmHg. Aorta The aortic root at the sinus of Valsalva is normal in size. The ascending aorta is normal in size. The aortic root at the sinus of Valsalva is normal in size measuring 3.5 cm with an index of 1.6 cm/m2. The ascending aorta is normal in size measuring 3.0 cm with an index of 1.3 cm/m2. The descending aortic arch is normal in size measuring 2.4 cm. No atheroma. Wall Motion Scoring Index: 1.00 Measurements Left Ventricular Outflow Tract Name Value Normal LVOT 2D LVOT Diameter 2.8 cm LVOT Area 6.2 cm2 LVOT Doppler LVOT Peak Velocity 0.7 m/s LVOT Peak Gradient 2 mmHg LVOT Mean Velocity 43.80 cm/s LVOT Mean Gradient 1 mmHg LVOT VTI 11.8 cm LVOT VTI/AV VTI Ratio 0.8 LVOT Stroke Volume 74 ml LVOT Stroke Volume Index 33 ml/m2 35-58 Pulmonic Valve Name Value Normal PV 2D RVOT Diameter (2D) 2.9 cm 1.7-2.7 RVOT Doppler RVOT Peak Velocity 0.8 m/s RVOT Peak Gradient 2 mmHg RVOT Mean Gradient 1 mmHg PV Doppler PV Peak Velocity 1.1 m/s PV Peak Gradient 4 mmHg PV Mean Gradient 2 mmHg PV Area (Cont Eq VTI) 4.63 cm2 PV Area Index (Cont Eq VTI) 2.08 cm2/m2 PV Area (Cont Eq Tarik) 4.9 cm2 PV Area Index (Cont Eq Tarik) 2.18 cm2/m2 Mitral Valve Name Value Normal MV 2D/MM MV Area (Planimetry) 5.64 cm2 4.00-5.00 MV Annulus Diameter (PLAX) 2.7 cm MV Annulus Diameter (2C) 3.3 cm MV Annulus Diameter (4C) 3.3 cm <=4.4 MV Doppler MV Peak Gradient 3 mmHg MV Mean Gradient 2 mmHg MV DI (VTI) 1.21 MV Decel Time (CW) 206 ms MV PHT 60 ms MV Area (PHT) 3.69 cm2 4.00-5.00 MV Area (Cont Eq VTI) 5.14 cm2 MV Regurgitation Doppler MR Volume (Cont Eq) 1 ml MR Fraction (Cont Eq) 2 % MV Diastolic Function MV E Peak Velocity 0.9 m/sec MV A Peak Velocity 0.8 m/sec MV E/A 1.0 MV Decel Time (PW) 205 ms MV A Wave Duration 135 ms MV Annular TDI MV Septal s' Velocity 13 cm/s MV Septal e' Velocity 9 cm/s >=8 MV Septal a' Velocity 11 cm/s MV E/e' (Septal) 10 <=8 MV A/a' (Septal) 8 MV Lateral s' Velocity 6 cm/s MV Lateral e' Velocity 9 cm/s >=10 MV Lateral a' Velocity 13 cm/s MV E/e' (Lateral) 9 <=8 MV A/a' (Lateral) 7 MV e' Average 9 cm/s MV E/e' (Average) 10 Tricuspid Valve Name Value Normal TV 2D TV Annulus Diameter (4C) 2.3 cm TV Doppler TV Peak Velocity 0.7 m/s TV Peak Gradient 2 mmHg TV Mean Gradient 1 mmHg TV PHT 52 ms TV Area (PHT) 4.21 cm2 TV Regurgitation Doppler TR Peak Velocity 1.9 m/s TR Peak Gradient 14 mmHg Estimated PAP/RSVP RA Pressure 3 mmHg <=5 PA Systolic Pressure 17 mmHg <35 RV Systolic Pressure 17 mmHg <36 TV Diastolic Function TV E Peak Velocity 0.7 m/sec TV A Peak Velocity 0.7 m/sec TV E/A 0.9 0.8-2.0 TV Decel Time 180 ms >=120 RV IVRT (PW) 55 ms Pulmonary Vessels Name Value Normal Pulmonary Artery 2D Main PA Diameter 3.0 cm Pulmonary Artery Doppler Main PA Peak Velocity 70.3 cm/s Main PA Peak Gradient 2 mmHg Pulmonary Veins Pulm Vein Peak Systolic Velocity 96.7 cm/s Pulm Vein Peak Diastolic Velocity 51.3 cm/s Pulm Vein S/D Velocity Ratio 2 Pulm Vein Ar Velocity 55.6 cm/s Pulm Vein Ar Dur - MV A Dur 5 ms Aorta Name Value Normal Ascending Aorta Ao Annulus Diameter 2.9 cm 2.3-2.9 Ao Annulus Diam Index 1.3 cm/m2 1.2-1.4 Sinus of Valsalva Diameter 3.5 cm 2.8-4.0 Sinus of Valsalva Index 1.6 cm/m2 1.3-2.1 Ao Sinotub Junction Diameter 2.9 cm 2.6-3.2 Asc Ao Diameter 3.0 cm 2.2-3.8 Asc Ao Diameter Index 1.3 cm/m2 1.1-1.9 Mid Asc Ao Diameter 3.0 cm Distal Asc Ao Diameter 3.0 cm Thoracic Aorta Ao Arch Diameter 2.6 cm Distal Transverse Arch Diameter 2.4 cm Ao Isthmus Diameter 2.3 cm Desc Ao Diameter 2.2 cm Septae/Shunt/Generic Name Value Normal Qp/Qs Qp/Qs 1.0 Miscellaneous Measurements 3D planimetry RVOT systole RV perspective Area 6.62 cm2 3D planimetry AV annulus systole LV perspective Area 7.00 cm2 2D planimetry TOMMY area 2D 2Ch X plane 90 degree plane Area 3.55 cm2 3D major axis diameter TOMMY orifice LA perspective Length 2.90 cm 3D height of ostium of LCA above the AV annulus medial long axis perspective Length 1.21 cm SVC min diameter 2D 100 degree plane Length 0.80 cm RAA depth 2D 100 degree plane Length 0.93 cm 3D major axis diameter fossa ovalis LA perspective Length 1.59 cm 3D planimetry fossa ovalis LA perspective Area 2.04 cm2 3D planimetry MV annulus diastole LA perspective Area 7.01 cm2 3D planimetry pulmonic valve systole PA perspective Area 4.03 cm2 2D planimetry TOMMY area 2D 4Ch 0 degree plane Area 5.17 cm2 3D minor axis diameter TOMMY orifice LA perspective Length 1.24 cm 3D planimetry TOMMY orifice LA perspective Area 3.25 cm2 3D height of ostium of RCA above the AV annulus medial long axis perspective Length 1.53 cm RAA height 2D 100 degree plane Length 3.84 cm RAA width 2D X plane 10 degree plane Length 3.85 cm 3D minor axis diameter fossa ovalis LA perspective Length 1.59 cm 3D planimetry TV annulus diastole LA perspective Area 6.50 cm2 Venous Name Value Normal IVC/SVC IVC Diameter 1.8 cm <=2.1 IVC Diameter (Insp 2D) 0.6 cm IVC Diameter Percent Change (2D) 67 % >=50 Aortic Valve Name Value Normal AV 2D/MM AV Area (Planimetry) 4.89 cm2 >=3.00 AV Doppler AV Peak Velocity 0.87 m/s AV Peak Gradient 3 mmHg AV Mean Gradient 2 mmHg AV VTI 15 cm AV Area (Cont Eq VTI) 4.91 cm2 >=2.00 AV Area (Cont Eq Tarik) 4.92 cm2 AV DI (VTI) 0.79 AV DI (Tarik) 0.79 AV Regurgitation 2D LVOT Area 6.22 cm2 AV Regurgitation Doppler AR Fraction (Cont Eq) 0 % AR Volume (Cont Eq) 0 ml Ventricles Name Value Normal LV Dimensions 2D/MM IVS Diastolic Thickness (2D) 0.9 cm 0.6-1.0 LVID Diastole (2D) 5.2 cm 4.2-5.8 LVPW Diastolic Thickness (2D) 1.0 cm 0.6-1.0 LVID Systole (2D) 3.3 cm 2.5-4.0 LV Systolic Endo Area 9 cm2 LV Diastolic Endo Area 19 cm2 LV Systolic Epic Area 32 cm2 LV Diastolic Epic Area 44 cm2 LV Mass (2D Cubed) 172 g 88-224 LV Mass Index (2D Cubed) 77 g/m2 49-115 Relative Wall Thickness (2D) 0.37 <=0.42 LV Fractional Shortening/Ejection Fraction 2D/MM LV Fractional Shortening (2D) 37 % 25-43 LV EF (2D Teicholz) 66 % 52-72 LV Diastolic Volume (4C MOD) 115 ml LV EF (4C MOD) 64 % LV Diastolic Volume (2C MOD) 114 ml LV EF (2C MOD) 59 % LV Diastolic Volume (BP MOD) 121 ml 62-150 LV Diastolic Volume Index (BP MOD) 54 ml/m2 34-74 LV Systolic Volume (BP MOD) 46 ml 21-61 LV Systolic Volume Index (BP MOD) 21 ml/m2 11-31 LV EF (BP MOD) 62 % 52-72 LV Diastolic Length (4C) 8.3 cm LV Systolic Length (4C) 6.2 cm LV End Diastolic Volume (BP A-L) 133 ml LV End Systolic Volume (BP A-L) 48 ml LV EF (BP A-L) 64 % LV Stroke Volume (4C MOD) 74 ml RV Dimensions 2D/MM RVID Diastole (2D) 3.4 cm 2.5-3.5 RVID Systole (2D) 2.3 cm RV Diastolic Wall Thickness (2D) 0.5 cm 0.1-0.5 RV Systolic Wall Thickness (2D) 0.7 cm RV Basal Diastolic Dimension 4.4 cm 2.5-4.1 RV Mid-Cavity Diastolic Dimension 4.2 cm 1.9-3.5 RV Diastolic Length (4C) 6.8 cm 5.9-8.3 RV Diastolic Area (4C) 22 cm2 10-24 RV Systolic Area (4C) 12 cm2 3-15 TAPSE 2.3 cm >=1.7 RV Fractional Shortening 2D RV FAC (4C) 46 % >=35 Atria Name Value Normal LA Dimensions LA Volume (BP MOD) 58 ml LA Volume Index (BP MOD) 26 ml/m2 16-34 RA Dimensions RA Area (4C) 18 cm2 <=18 RA Area (4C) Index 8 cm2/m2 RA ESV (4C MOD) 55 ml 18-32 RA ESV Index (4C MOD) 25 ml/m2 16-34 LA/RA Appendage LA Kandy Peak Emptying Velocity 92 cm/s RA Kandy Peak Emptying Velocity 44 cm/s Pericardium Name Value Normal Pericardium 2D/MM Pericardial Effusion Diastole (2D) 0.0 cm Report Signatures Finalized by Sonido Aguirre MD on 01/07/2024 09:31 AM Procedure Note Sonido Aguirre MD - 01/07/2024 Summary * The transesophageal echocardiogram is normal by two-dimensional,color flow imaging, and Doppler interrogation. * The left ventricle is normal in size, with normal systolic functionand an estimated ejection fraction of 62 % by biplane method of disks. Left ventricular wall motion is normal. * Right ventricle is at the upper limits of normal in size with normal systolic function. * No significant valvular abnormalities. * No hemodynamically significant valve disease. * No vegetations or intracardiac masses noted. * No significant change since prior study from 12/18/2023. * The left ventricle is normal in size. * Left ventricular systolic function is normal with an estimatedejection fraction of 62 % by biplane method of disks. * Left ventricular segmental wall motion is normal. * The left ventricular mass is normal. * The left ventricular diastolic function is normal. * The right ventricle is at the upper limits of normal in size. * Right ventricular systolic function is normal. * The left atrium is normal in size with a left atrial volume index of26 ml/m2 by BP MOD. * No mass or thrombus formation in the left atrium. * The right atrium is normal in size. Volume index 25 ml/M2. * No mass or thrombus formation in the right atrium. * Intact interatrial septum visualized by 2D and color Doppler andagitated saline imaging. Fossa ovalis dimensions 1.6 cm diameter and area 2.04cm2. * Agitated saline contrast study at rest and with Valsalva is negativefor a shunt. * The left atrial appendage is windsock shaped with normal velocity,and there is no thrombus. * Left atrial appendage measures 19 mm wide by 33 mm deep at 0 degrees,15 mm wide by 39 mm deep at 45 degrees, 15 mm wide by 28 mm deep at 90degrees, and 17 mm wide by 20 mm deep at 135 degrees. TOMMY area is 5.2 cm2 in 4Ch0 degree plane and 3.6 cm2 in 2Ch 90 degree plane. 3D assessment of LAAorifice dimensions 1.2 x 2.9 cm and area 3.25 cm2. * Right atrial appendage is free of thrombus formation. RAA dimensionsare 3.8 x 3.9 cm and depth 0.9 cm. RAA orifice area 12.5 cm2. No clots or debris. * Average right atrial appendage ejection velocity is normal at 44cm/s. * The aortic valve is trileaflet. Coronary ostia located 12 (LCA) and 15mm (RCA) above the AV annulus by 3D imaging. * There is no aortic valve stenosis with a peak velocity of 1 m/s,mean gradient of 2 mmHg, and aortic valve area of 4.91 cm2. Valve area index2.2 cm2/M2. Stroke volume index 33 ml/M2. Cardiac index > 2.4 L/min/M2. * Mitral valve area by 2D Planimetry is 5.64 cm2. * There is trace mitral valve regurgitation. * Mitral valve regurgitant fraction by pulsed Doppler quantitativeflow method is 2 %. * Mitral valve regurgitant volume by pulsed Doppler quantitative flowmethod is 1.34 ml. * There is trace tricuspid valve regurgitation. * The pulmonary artery systolic pressure is normal, 17 mmHg. Mean PA pressure of 13 mmHg. PVR 1.85 Wood units. * The ascending aorta is normal in size measuring 3.0 cm with an indexof 1.3 cm/m2. * The descending aortic arch is normal in size measuring 2.4 cm. No atheroma. * There is > 50% collapse of the IVC upon inspiration with anestimated right atrial pressure of 3 mmHg. * There is no pericardial effusion. Patient Info Name: Quan Downing Age: 38 years : 1985 Gender: Male Ht: 70 in Wt: 216 lb BSA: 2.23 m2 HR: 75 bpm BP: 126 / 74 mmHg Heart Rhythm: Sinus Rhythm Exam Date: 12/24/2023 11:16 AM Patient Status: I/P Study Site: [facility] Primary Location: [facility] EStudy Info Exam Type: ECHO PATRICK COMPLETE Indications R78.81 - Gram-positive bacteremia D57.01 - Acute chest syndrome (HCC) * A 2D, 3D, color Doppler, spectral Doppler and M-Mode transesophageal echocardiogram was performed with a Bubble Study. * During the study the esophageal, transgastric, and descendingthoracic views were captured. Staff Referring Physician: Kathy Uriostegui Ordering Provider: Kathy Uriostegui Attending Physician: Kathy Uriostegui Mba Intern: Hua Wiley Complications * There were no complications prior to, during or in recovery from the transesophageal echocardiogram. Medications * Sedation administered and monitored by anesthesia staff. * The patient was premedicated with 100-175 mcg/kg/min intravenousPropofol. Procedure Details The patient arrived in a fasting state after obtaining informedconsent. The transesophageal probe was passed without difficulty into theposterior pharynx, mid-esophagus, distal esophagus, and gastric fundus. Imagingwas performed at multiple levels. The patient tolerated the procedure welland there were no complications. The patient was transferred out of the examination area in satisfactory condition. Left Ventricle The left ventricle is normal in size. Left ventricular systolic functionis normal with an estimated ejection fraction of 62 % by biplane method ofdisks. Left ventricular segmental wall motion is normal. The left ventricularmass is normal. The left ventricular diastolic function is normal. Right Ventricle The right ventricle is at the upper limits of normal in size. Right ventricular systolic function is normal. Right ventricular wall thicknessis normal. Ventricular Septum Intact interventricular septum visualized by 2D and color Dopplerimaging. Left Atrium The left atrium is normal in size with a left atrial volume index of26 ml/m2 by BP MOD. No mass or thrombus formation in the left atrium. Right Atrium The right atrium is normal in size. Volume index 25 ml/M2. No mass or thrombus formation in the right atrium. Atrial Septum Intact interatrial septum visualized by 2D and color Doppler andagitated saline imaging. Fossa ovalis dimensions 1.6 cm diameter and area 2.04cm2. Agitated saline contrast study at rest and with Valsalva is negative fora shunt. Atrial Appendage The left atrial appendage is windsock shaped with normal velocity, andthere is no thrombus. There is no thrombus noted in the left atrial appendage.Left atrial appendage measures 19 mm wide by 33 mm deep at 0 degrees, 15 mmwide by 39 mm deep at 45 degrees, 15 mm wide by 28 mm deep at 90 degrees, and 17mm wide by 20 mm deep at 135 degrees. TOMMY area is 5.2 cm2 in 4Ch 0 degreeplane and 3.6 cm2 in 2Ch 90 degree plane. 3D assessment of TOMMY orificedimensions 1.2 x 2.9 cm and area 3.25 cm2. Left atrial appendage emptying velocityis 92.2 cm/s. Right atrial appendage is free of thrombus formation. RAA dimensions are 3.8 x 3.9 cm and depth 0.9 cm. RAA orifice area 12.5 cm2.No clots or debris. Average right atrial appendage ejection velocity isnormal at 44 cm/s. Aortic Valve The aortic valve is trileaflet. Coronary ostia located 12 (LCA) and 15mm (RCA) above the AV annulus by 3D imaging. There is no aortic valvestenosis with a peak velocity of 1 m/s, mean gradient of 2 mmHg, and aortic valvearea of 4.91 cm2. Valve area index 2.2 cm2/M2. Stroke volume index 33 ml/M2. Cardiac index > 2.4 L/min/M2. There is no significant aortic valve regurgitation. Pulmonic Valve The pulmonic valve is normal. There is no pulmonic valve stenosis. Thereis no significant pulmonic regurgitation. Pulmonary valve area byContinuity Equation is 4.6 cm2. Mitral Valve The mitral valve is normal. There is no mitral valve stenosis. Thereis trace mitral valve regurgitation. Mitral valve diastolic mean gradient is2 mmHg. Mitral valve area by 2D Planimetry is 5.64 cm2. Mitral valveregurgitant volume by pulsed Doppler quantitative flow method is 1.34 ml. Mitralvalve regurgitant fraction by pulsed Doppler quantitative flow method is 2 %. Tricuspid Valve The pulmonary artery systolic pressure is normal, 17 mmHg. Mean PApressure of 13 mmHg. PVR 1.85 Wood units. The tricuspid valve is normal. There isno significant tricuspid valve stenosis. There is trace tricuspid valve regurgitation. its. Pulmonary Veins Pulmonary veins are normal by two-dimensional and color flow imaging. Pericardium/Pleural There is no pericardial effusion. Inferior Vena Cava The inferior vena cava is normal in size (< 2.1 cm). There is > 50%collapse of the IVC upon inspiration with an estimated right atrial pressure of 3mmHg. Aorta The aortic root at the sinus of Valsalva is normal in size. Theascending aorta is normal in size. The aortic root at the sinus of Valsalva isnormal in size measuring 3.5 cm with an index of 1.6 cm/m2. The ascending aorta is normal in size measuring 3.0 cm with an index of 1.3 cm/m2. Thedescending aortic arch is normal in size measuring 2.4 cm. No atheroma. Wall Motion Scoring Index: 1.00 Measurements Left Ventricular Outflow Tract Name Value Normal LVOT 2D LVOT Diameter 2.8 cm LVOT Area 6.2 cm2 LVOT Doppler LVOT Peak Velocity 0.7 m/s LVOT Peak Gradient 2 mmHg LVOT Mean Velocity 43.80 cm/s LVOT Mean Gradient 1 mmHg LVOT VTI 11.8 cm LVOT VTI/AV VTI Ratio 0.8 LVOT Stroke Volume 74 ml LVOT Stroke Volume Index 33 ml/m2 35-58 Pulmonic Valve Name Value Normal PV 2D RVOT Diameter (2D) 2.9 cm 1.7-2.7 RVOT Doppler RVOT Peak Velocity 0.8 m/s RVOT Peak Gradient 2 mmHg RVOT Mean Gradient 1 mmHg PV Doppler PV Peak Velocity 1.1 m/s PV Peak Gradient 4 mmHg PV Mean Gradient 2 mmHg PV Area (Cont Eq VTI) 4.63 cm2 PV Area Index (Cont Eq VTI) 2.08 cm2/m2 PV Area (Cont Eq Tarik) 4.9 cm2 PV Area Index (Cont Eq Tarik) 2.18 cm2/m2 Mitral Valve Name Value Normal MV 2D/MM MV Area (Planimetry) 5.64 cm2 4.00-5.00 MV Annulus Diameter (PLAX) 2.7 cm MV Annulus Diameter (2C) 3.3 cm MV Annulus Diameter (4C) 3.3 cm <=4.4 MV Doppler MV Peak Gradient 3 mmHg MV Mean Gradient 2 mmHg MV DI (VTI) 1.21 MV Decel Time (CW) 206 ms MV PHT 60 ms MV Area (PHT) 3.69 cm2 4.00-5.00 MV Area (Cont Eq VTI) 5.14 cm2 MV Regurgitation Doppler MR Volume (Cont Eq) 1 ml MR Fraction (Cont Eq) 2 % MV Diastolic Function MV E Peak Velocity 0.9 m/sec MV A Peak Velocity 0.8 m/sec MV E/A 1.0 MV Decel Time (PW) 205 ms MV A Wave Duration 135 ms MV Annular TDI MV Septal s' Velocity 13 cm/s MV Septal e' Velocity 9 cm/s >=8 MV Septal a' Velocity 11 cm/s MV E/e' (Septal) 10 <=8 MV A/a' (Septal) 8 MV Lateral s' Velocity 6 cm/s MV Lateral e' Velocity 9 cm/s >=10 MV Lateral a' Velocity 13 cm/s MV E/e' (Lateral) 9 <=8 MV A/a' (Lateral) 7 MV e' Average 9 cm/s MV E/e' (Average) 10 Tricuspid Valve Name Value Normal TV 2D TV Annulus Diameter (4C) 2.3 cm TV Doppler TV Peak Velocity 0.7 m/s TV Peak Gradient 2 mmHg TV Mean Gradient 1 mmHg TV PHT 52 ms TV Area (PHT) 4.21 cm2 TV Regurgitation Doppler TR Peak Velocity 1.9 m/s TR Peak Gradient 14 mmHg Estimated PAP/RSVP RA Pressure 3 mmHg <=5 PA Systolic Pressure 17 mmHg <35 RV Systolic Pressure 17 mmHg <36 TV Diastolic Function TV E Peak Velocity 0.7 m/sec TV A Peak Velocity 0.7 m/sec TV E/A 0.9 0.8-2.0 TV Decel Time 180 ms >=120 RV IVRT (PW) 55 ms Pulmonary Vessels Name Value Normal Pulmonary Artery 2D Main PA Diameter 3.0 cm Pulmonary Artery Doppler Main PA Peak Velocity 70.3 cm/s Main PA Peak Gradient 2 mmHg Pulmonary Veins Pulm Vein Peak Systolic Velocity 96.7 cm/s Pulm Vein Peak Diastolic Velocity 51.3 cm/s Pulm Vein S/D Velocity Ratio 2 Pulm Vein Ar Velocity 55.6 cm/s Pulm Vein Ar Dur - MV A Dur 5 ms Aorta Name Value Normal Ascending Aorta Ao Annulus Diameter 2.9 cm 2.3-2.9 Ao Annulus Diam Index 1.3 cm/m2 1.2-1.4 Sinus of Valsalva Diameter 3.5 cm 2.8-4.0 Sinus of Valsalva Index 1.6 cm/m2 1.3-2.1 Ao Sinotub Junction Diameter 2.9 cm 2.6-3.2 Asc Ao Diameter 3.0 cm 2.2-3.8 Asc Ao Diameter Index 1.3 cm/m2 1.1-1.9 Mid Asc Ao Diameter 3.0 cm Distal Asc Ao Diameter 3.0 cm Thoracic Aorta Ao Arch Diameter 2.6 cm Distal Transverse Arch Diameter 2.4 cm Ao Isthmus Diameter 2.3 cm Desc Ao Diameter 2.2 cm Septae/Shunt/Generic Name Value Normal Qp/Qs Qp/Qs 1.0 Miscellaneous Measurements 3D planimetry RVOT systole RV perspective Area 6.62 cm2 3D planimetry AV annulus systole LV perspective Area 7.00 cm2 2D planimetry TOMMY area 2D 2Ch X plane 90 degree plane Area 3.55 cm2 3D major axis diameter TOMMY orifice LA perspective Length 2.90 cm 3D height of ostium of LCA above the AV annulus medial long axis perspective Length 1.21 cm SVC min diameter 2D 100 degree plane Length 0.80 cm RAA depth 2D 100 degree plane Length 0.93 cm 3D major axis diameter fossa ovalis LA perspective Length 1.59 cm 3D planimetry fossa ovalis LA perspective Area 2.04 cm2 3D planimetry MV annulus diastole LA perspective Area 7.01 cm2 3D planimetry pulmonic valve systole PA perspective Area 4.03 cm2 2D planimetry TOMMY area 2D 4Ch 0 degree plane Area 5.17 cm2 3D minor axis diameter TOMMY orifice LA perspective Length 1.24 cm 3D planimetry TOMMY orifice LA perspective Area 3.25 cm2 3D height of ostium of RCA above the AV annulus medial long axis perspective Length 1.53 cm RAA height 2D 100 degree plane Length 3.84 cm RAA width 2D X plane 10 degree plane Length 3.85 cm 3D minor axis diameter fossa ovalis LA perspective Length 1.59 cm 3D planimetry TV annulus diastole LA perspective Area 6.50 cm2 Venous Name Value Normal IVC/SVC IVC Diameter 1.8 cm <=2.1 IVC Diameter (Insp 2D) 0.6 cm IVC Diameter Percent Change (2D) 67 % >=50 Aortic Valve Name Value Normal AV 2D/MM AV Area (Planimetry) 4.89 cm2 >=3.00 AV Doppler AV Peak Velocity 0.87 m/s AV Peak Gradient 3 mmHg AV Mean Gradient 2 mmHg AV VTI 15 cm AV Area (Cont Eq VTI) 4.91 cm2 >=2.00 AV Area (Cont Eq Tarik) 4.92 cm2 AV DI (VTI) 0.79 AV DI (Tarik) 0.79 AV Regurgitation 2D LVOT Area 6.22 cm2 AV Regurgitation Doppler AR Fraction (Cont Eq) 0 % AR Volume (Cont Eq) 0 ml Ventricles Name Value Normal LV Dimensions 2D/MM IVS Diastolic Thickness (2D) 0.9 cm 0.6-1.0 LVID Diastole (2D) 5.2 cm 4.2-5.8 LVPW Diastolic Thickness (2D) 1.0 cm 0.6-1.0 LVID Systole (2D) 3.3 cm 2.5-4.0 LV Systolic Endo Area 9 cm2 LV Diastolic Endo Area 19 cm2 LV Systolic Epic Area 32 cm2 LV Diastolic Epic Area 44 cm2 LV Mass (2D Cubed) 172 g 88-224 LV Mass Index (2D Cubed) 77 g/m2 49-115 Relative Wall Thickness (2D) 0.37 <=0.42 LV Fractional Shortening/Ejection Fraction 2D/MM LV Fractional Shortening (2D) 37 % 25-43 LV EF (2D Teicholz) 66 % 52-72 LV Diastolic Volume (4C MOD) 115 ml LV EF (4C MOD) 64 % LV Diastolic Volume (2C MOD) 114 ml LV EF (2C MOD) 59 % LV Diastolic Volume (BP MOD) 121 ml 62-150 LV Diastolic Volume Index (BP MOD) 54 ml/m2 34-74 LV Systolic Volume (BP MOD) 46 ml 21-61 LV Systolic Volume Index (BP MOD) 21 ml/m2 11-31 LV EF (BP MOD) 62 % 52-72 LV Diastolic Length (4C) 8.3 cm LV Systolic Length (4C) 6.2 cm LV End Diastolic Volume (BP A-L) 133 ml LV End Systolic Volume (BP A-L) 48 ml LV EF (BP A-L) 64 % LV Stroke Volume (4C MOD) 74 ml RV Dimensions 2D/MM RVID Diastole (2D) 3.4 cm 2.5-3.5 RVID Systole (2D) 2.3 cm RV Diastolic Wall Thickness (2D) 0.5 cm 0.1-0.5 RV Systolic Wall Thickness (2D) 0.7 cm RV Basal Diastolic Dimension 4.4 cm 2.5-4.1 RV Mid-Cavity Diastolic Dimension 4.2 cm 1.9-3.5 RV Diastolic Length (4C) 6.8 cm 5.9-8.3 RV Diastolic Area (4C) 22 cm2 10-24 RV Systolic Area (4C) 12 cm2 3-15 TAPSE 2.3 cm >=1.7 RV Fractional Shortening 2D RV FAC (4C) 46 % >=35 Atria Name Value Normal LA Dimensions LA Volume (BP MOD) 58 ml LA Volume Index (BP MOD) 26 ml/m2 16-34 RA Dimensions RA Area (4C) 18 cm2 <=18 RA Area (4C) Index 8 cm2/m2 RA ESV (4C MOD) 55 ml 18-32 RA ESV Index (4C MOD) 25 ml/m2 16-34 LA/RA Appendage LA Kandy Peak Emptying Velocity 92 cm/s RA Kandy Peak Emptying Velocity 44 cm/s Pericardium Name Value Normal Pericardium 2D/MM Pericardial Effusion Diastole (2D) 0.0 cm Report Signatures Finalized by Sonido Aguirre MD on 01/07/2024 09:31 AM Kathy Uriostegui MD ECHO CUPID * US Extremity Right Ltd Nonvasc (12/21/2023 3:51 PM CDT) Anatomical Region Laterality Modality Upper Extremity, Lower Extremity Ultrasound 12/22/2023 11:1 1 AM CDT Impressions 12/22/2023 5:24 PM CDT IMPRESSION: No sonographic evidence of abscess as clinically queried. Report dictated by Celestino Carvajal MD (vice president research) I, Darrell Roland MD have personally reviewed and interpreted this examination/study. > Interpreting Provider: Darrell Roland MD on 12/22/2023 5:24 PM Narrative 12/22/2023 5:24 PM CDT EXAMINATION: US EXTREMITY RIGHT LTD NONVASC HISTORY: D57.00: Sickle cell crisis (HCC) D69.6: Thrombocytopenia (HCC) D50.9: Microcytic anemia Z86.718: History of DVT (deep vein thrombosis) COMPARISON: None. FINDINGS: Grayscale and color Doppler imaging was obtained in multiple planes in the region of interest (site of prior IV access). Patent vasculature is noted without evidence of atherosclerosis or thrombosis. No evidence of subcutaneous fluid collection, substantial edema, or cutaneous thickening. Procedure Note Darrell Roland MD - 12/22/2023 EXAMINATION: US EXTREMITY RIGHT LTD NONVASC HISTORY: D57.00: Sickle cell crisis (HCC) D69.6: Thrombocytopenia (HCC) D50.9: Microcytic anemia Z86.718: History of DVT (deep vein thrombosis) COMPARISON: None. FINDINGS: Grayscale and color Doppler imaging was obtained in multiple planes inthe region of interest (site of prior IV access). Patent vasculature isnoted without evidence of atherosclerosis or thrombosis. No evidence of subcutaneous fluid collection, substantial edema, or cutaneousthickening. IMPRESSION: No sonographic evidence of abscess as clinically queried. Report dictated by Celestino Carvajal MD (vice president research) I, Darrell Roland MD have personally reviewed and interpreted this examination/study. > Interpreting Provider: Darrell Roland MD on 12/22/2023 5:24 PM Kathy Uriostegui MD US ORDERABLES * (ABNORMAL) HGB HCT PANEL (12/19/2023 9:11 AM CDT) [facility] Hemoglobin 7.5(L) 13.3 - 17.5 g/dL 12/19/2023 9:47 AM CDT [facility] Hematocrit 21.5(L) 38.7 - 51.1 % 12/19/2023 9:47 AM CDT [facility] Blood BLOOD SPECIMEN / Unknown Venipuncture / Unknown 12/19/2023 9:11 AM CDT 12/19/2023 9:31 AM CDT German Damon MD LAB - HEMATOLOGY ORD ERABLES [address] [address], [facility] [phone] * TRANSFUSE RED BLOOD CELL LEUKOREDUCED UNIT(S) (12/19/2023 8:42 AM CDT) German Damon MD NURSING - BLOOD PROD TRANSFUSION * PREPARE (CROSSMATCH) RBC UNIT(S), 1 Units (12/19/2023 5:59 AM CDT) Only the most recent of4 resultswithin the time period is included. [facility] Unit Description AS1 LR PRBC [facility] BLOOD BANK LAB Unit ABO A [facility] BLOOD [facility] Unit Rh POS [facility] BLOOD [facility] LAB Product Number R02 [facility] B LOOD BANK LAB Unit Donor # [id number] [facility] BLOOD [facility] Unit Status transfused [facility] BLO OD BANK LAB Product Code [id number] [facility] BLO OD BANK LAB Blood Type Barcode 6200 [facility] BLOOD BANK LAB Expiration Date S BLOOD BANK LAB Blood Bank BLOOD SPECIMEN / Unknown 12/16/2023 1:58 AM CDT German Damon MD LAB - BLOOD BANK ORD ERABLES Performing Organization Address City/[facility]/ZIP Co de Phone Number [facility] BLOOD [facility] [address] [place] [phone], [facility] [phone] * TYPE + SCREEN PANEL (12/19/2023 5:22 AM CDT) Only the most recent of2 resultswithin the time period is included. Antibody Screen NEG 5:52 AM CDT [facility] ABO Rh A POS 12/19/2023 5:52 AM CDT [facility] Blood Bank BLOOD SPECIMEN / Unknown Venipuncture / Unknown 12/19/2023 5:22 AM CDT 12/19/2023 5:32 AM CDT German Damon MD LAB - BLOOD BANK ORD ERABLES Performing Organization Address City/[facility]/ZIP Co de Phone Number [facility] [address] [place] [phone], [facility] [phone] * TEG 6 GLOBAL HEMOSTASIS W/ LYSIS (12/19/2023 5:04 AM CDT) Only the most recent of2 resultswithin the time period is included. Citrated Kaolin R (Reaction Time) 6.2 4.6 - 9.1 min 12/19/2023 6:24 AM CDT [facility] Citrated Kaolin LY30 (Lysis) 0.7 0.0 - 2.6 % 12/19/2023 6:24 AM CDT [facility] Citrated Functional Fibrinogen MA (Max Amplitude) 26.1 15.0 - 32.0 mm 12/19/2023 6:24 AM CDT [facility] Citrated RapidTEG MA (Max Amplitude) 60.2 52.0 - 70.0 mm 12/19/2023 6:24 AM CDT [facility] Blood BLOOD SPECIMEN / Unknown Venipuncture / Unknown 12/19/2023 5:04 AM CDT 12/19/2023 5:11 AM CDT German Damon MD LAB - HEMATOLOGY KIRA JARAMILLO [address] [address], [place] [phone] * HEPATITIS C AB SCREEN RFLX NAAT QUANT (12/19/2023 5:04 AM CDT) Only the most recent of2 resultswithin the time period is included. Hepatitis C Antibody Non-react daniel Non-reac tive 12/19/2023 6:17 AM CDT [facility] Comment:Hepatitis C Antibody screen indicates no serologic [...] - CHEMISTRY NAZARIO GRANT Performing Organization Address City/[facility]/ZIP Co de Phone Number [address] [address], [place] [phone] * HIV-1 HIV-2 ANTIBODY + HIV P24 AG PANEL (12/19/2023 5:04 AM CDT) HIV Antigen/Antibod y 1 & 2 Non-reacti ve Non-react daniel 12/19/2023 6:17 AM CDT [facility] Comment:No Laboratory eviden ce of HIV infection. Blood BLOOD SPECIMEN / Unknown Venipuncture / Unknown 12/19/2023 5:04 AM CDT 12/19/2023 5:08 AM CDT German Damon MD LAB - CHEMISTRY NAZARIO GRANT [address] [address], [place] [phone] * (ABNORMAL) STREP PNEUMONIAE ANTIGEN URINE (12/18/2023 9:42 PM CDT) Streptococcus pneumoniae Antigen Urine Positive( A) Negative 12/19/2023 7:14 AM CDT [facility] Urine URINE / Unknown Collection / Unknown 12/18/2023 9:42 PM CDT 12/18/2023 9:52 PM CDT Narrative [facility] - 12/19/2023 7:14 AM CDT Patients who have received the Streptococcus pneumoniae vaccines may test positive in the 48 hours following vaccination. It is recommended to avoid testing within five days of receiving vaccination. Testing pediatric patients is discouraged because of their high rates of nasal colonization with Streptococcus pneumoniae leading to false positive results. Samples from patients taking antibiotics for more than 24 hours may cause false negatives. German Damon MD LAB - MICROBIOLOGY Zenia SILVERIO Performing Organization Address [facility] [[email or web address]] de Phone Number [facility] [address] [place] [address], [facility] [phone] * LEGIONELLA ANTIGEN URINE (12/18/2023 9:42 PM CDT) Legionella Antigen Urine Negative Negative 12/19/2023 7:18 AM CDT [facility] Urine URINE / Unknown Collection / Unknown 12/18/2023 9:42 PM CDT 12/18/2023 9:45 PM CDT Narrative [facility] - 12/19/2023 7:18 AM CDT This assay detects Legionella pneumophila serogroup one (1) antigen. A negative test result does not rule out the possibility of Legionella infection due to other serogroups or species of Legionella. A positive result may indicate a recent or remote infection with serogroup 1. German Damon MD LAB - MICROBIOLOGY O JEAN CLAUDE Performing Organization Address City/[facility] Co de Phone Number [facility] [address] [place] [address], [facility] [phone] * (ABNORMAL) URINE DRUG SCREEN IMMUNOASSAY (12/18/2023 9:42 PM CDT) Amphetamines Screen Urine Negative Negative : < 1000 ng/mL 12/18/2023 10:25 PM CDT [facility] Barbiturates Screen Urine Negative Negative : < 200 ng/mL 12/18/2023 10:25 PM [facility] Benzodiazepine Screen Urine Negative Negative : < 200 ng/mL 12/18/2023 10:25 PM CDT [facility] Opiates Urine Negative Negative : < 300 ng/mL 12/18/2023 10:25 PM [facility] Cocaine Metabolites Urine Negative Negative : < 300 ng/mL 12/18/2023 10:25 PM [facility] Phencyclidine Screen Urine Negative Negative : < 25 ng/ml 12/18[facility]2023 10:[facility] Cannabinoids Screen Urine Negative Negative : <50 ng/mL 12/18/2023 10:25 PM T [facility] Methadone Screen Urine Positive(A) Negative : < 300 ng/mL 12/18/2023 10:25 PM [facility] Comment:Positive urine metha done screening results should be confirmed by another generally accepted non-immunological method such as gas chromatography or mass spectrometry. Fentanyl Screen Urine Negative Negative : <1.5 ng/mL 12/18/2023 10:25 PM [facility] Urine URINE / Unknown Collection / Unknown 12/18/2023 9:42 PM CDT 12/18/2023 9:45 PM CDT [facility] - 12/18/2023 10:25 PM CDT The Urine Toxicology Screening Panel does not screen for Propoxyphene, Meprobamate, Carisoprodol, Trazodone, tcqi-czi-gptwiaz medications and/or volatiles (Acetone, Isopropanol, Methanol or Ethylene Glycol). Ethanol, Salicylate, Acetaminophen, Tricyclic Antidepressants and several therapeutic drugs may be individually assayed in serum or plasma specimen. Toxicology testing by the [facility] is an aid to medical diagnosis and treatment of patients. No documented chain of custody was maintained. Results are intended to be used for clinical purposes only. German Damon MD LAB - URINE CHEMISTR Y ORDERABLES [facility] [address] [place] [address], [facility] [phone] * TRANSFUSE FRESH FROZEN PLASMA UNIT(S) (12/18/2023 6:44 PM CDT) German Damon MD NURSING - BLOOD PROD TRANSFUSION * (ABNORMAL) PROCALCITONIN LEVEL (12/18/2023 6:17 PM CDT) Only the most recent of2 resultswithin the time period is included. PROCALCITONIN 27.93(H) <=0.10 ng/mL 12/18/2023 7:43 PM CDT [facility] Blood BLOOD SPECIMEN / Unknown Venipuncture / Unknown 12/18/2023 6:17 PM CDT 12/18/2023 7:11 PM CDT Narrative [facility] - 12/18/2023 7:43 PM CDT The change in procalcitonin (PCT) concentration over time provides support in decision making on antibiotic discontinuation for suspected or confirmed septic patients. Follow-up samples should be tested once every 1-2 days based upon physician discretion taking into account the patient s evolution and progress. Consider discontinuation of antibiotic therapy if the PCT current is <= 0.5 ng/mL or if the delta PCT is > 80%. Duration of antibiotics should not be determined solely on PCT; established guidelines for the indication should be followed. PCT peak: Highest observed PCT concentration PCT current: Most recent PCT concentration Calculate delta PCT using the following equation: Delta PCT = PCT Peak PCT current X 100% PCT Peak The Change in Procalcitonin Calculator is available at [email or web address] If clinical picture has not improved and PCT remains high, reevaluate and consider treatment failure or other causes. German Damon MD LAB - CHEMISTRY ORDE RABLES Performing Organization Address City/[facility]/ZIP Co de Phone Number [facility] [address] [place] [address], [facility] [phone] * (ABNORMAL) BLOOD GASES CHAUNCEY + COOX PANEL (12/18/2023 6:[address] [facility]) pH Venous 7.40 7.32 - 7.42 pH 12/18/2023 6:46 PM [facility] pO2 Venous 33(L) 35 - 40 mmHg 12/18/2023 6:46 PM [facility] pCO2 Venous 42 40 - 50 mmHg 12/18/2023 6:46 PM [facility] HCO3 Venous 26.0 20 - 30 mmol/L 12/18/2023 6:46 PM [facility] Base Excess Venous 1.1 -2.0 - 2.0 mmol/L 12/18/2023 6:46 PM [facility] Oxyhemoglobin Venous 58.5 % 07/2023 6:46 PM [facility] Deoxyhemoglobin (HHB) Venous % 36.7 % 12/18/2023 6:46 PM [facility] Methemoglobin 1.2 0.0 - 2.0 % 12/18/2023 6:46 PM [facility] Carboxyhemoglobin 3.6(H) 0.0 - 2.0 % 2023 6:46 PM [facility] O2 Content Venous 5.9 Interpret within clinical context ml/dL 12/18/2023 6:46 PM [facility] Hemoglobin by COOX 7.1(L) 12.0 - 17.6 g/dL 12/18/2023 6:46 PM [facility] O2 Saturation Venous 61(L) >=70 % 07/2023 6:46 PM [facility] FI O2 Mixed Venous 21.0 % 2023 6:46 PM [facility] Blood BLOOD SPECIMEN / Unknown Venipuncture / Unknown 12/18/2023 6:17 PM T 12/18/2023 6:40 PM [facility] - 12/18/2023 6:[address] [facility] Carboxyhemoglobin Normal Concentration: Non-smokers: 0-2%; Smokers: 0-9%; Toxic: >20% German Damon MD LAB - BLOOD GASES OR DERABLES [facility] [address] [place] [address], [facility] [phone] * CT Chest Wo Contrast (12/18/2023 5:59 PM CDT) Anatomical Region Laterality Modality Chest Computed Tomogra phy 12/18/2023 6:03 PM CDT Impressions 12/19/2023 12:27 AM CDT Impression: 1.Small area of peripheral groundglass opacities in the left anterior upper lobe concerning for acute infection. Follow up to resolution is recommended to exclude an underlying neoplasm. 2.Fibrotic changes in the lower lungs with reticulation, atelectasis, and bronchiectasis. 3.Small pericardial effusion. 4.Cholelithiasis > Dictated by Varun Carl MD (vice president research). I, Sameer Sears MD have personally reviewed and interpreted this examination/study. > Interpreting Provider: Sameer Sears MD on 12/19/2023 12:27 AM Narrative 12/19/2023 12:27 AM CDT PROCEDURE: CT CHEST WO CONTRAST, DATE/TIME OF EXAM: 12/18/2023 5:59 PM, LOCATION [facility] INDICATION: J96.01: Acute hypoxic respiratory failure (HCC) ADDITIONAL CLINICAL INFORMATION: Ordering Provider Reason For Exam: evaluate for multifocal pneumonia Technologist Note: Additional: COMPARISON: Chest x-ray 12/16/2023 TECHNIQUE: CT of the chest was performed without contrast according to standard protocol. Findings: Evaluation of visceral and vascular structures is degraded due to lack of intravenous contrast administration. There is a central venous catheter with the tip terminating at the superior vena cava. Lower Neck and Axillae: Normal. Lungs: There is lower lung predominant fibrotic changes with reticulation, atelectasis, and traction bronchiectasis predominantly noted in the left lower lobe, right lower lobe and middle lobe. There is an area of peripheral ground glass opacities in the left anterior upper lobe (series 4 image 20) and No suspicious pulmonary nodules are identified. No pleural fluid or pneumothorax is present. Heart and Pericardium: There is a small pericardial effusion. The heart is normal in size. Mediastinum and Daisy: Nonspecific small soft tissue densities in the anterior mediastinum). No enlarged lymph nodes are present. Thoracic Vasculature: No vascular abnormality is present. Bones and Chest Wall: The bones are diffusely sclerotic with H shaped vertebrae consistent with patient's diagnosis of sickle cell disease. The visible osseous structures are intact. Degenerative changes are seen in the spine. Upper Abdomen: The spleen is small caliber. Hyperdense material layering in the dependent gallbladder consistent with gallstones noted on prior ultrasound. Procedure Note Sameer Sears MD - 12/19/2023 PROCEDURE: CT CHEST WO CONTRAST, DATE/TIME OF EXAM: 12/18/2023 5:59 PM, LOCATION [facility] INDICATION: J96.01: Acute hypoxic respiratory failure (HCC) ADDITIONAL CLINICAL INFORMATION: Ordering Provider Reason For Exam: evaluate for multifocal pneumonia Technologist Note: Additional: COMPARISON: Chest x-ray 12/16/2023 TECHNIQUE: CT of the chest was performed without contrast according to standard protocol. Findings: Evaluation of visceral and vascular structures is degraded due to lackof intravenous contrast administration. There is a central venous catheter with the tip terminating at thesuperior vena cava. Lower Neck and Axillae: Normal. Lungs: There is lower lung predominant fibrotic changes with reticulation, atelectasis, and traction bronchiectasis predominantly noted in the left lower lobe, right lower lobe and middle lobe. There is an area of peripheral ground glass opacities in the left anterior upper lobe (series4 image 20) and No suspicious pulmonary nodules are identified. No pleural fluid or pneumothorax is present. Heart and Pericardium: There is a small pericardial effusion. The heart is normal in size. Mediastinum and Daisy: Nonspecific small soft tissue densities in the anterior mediastinum). No enlarged lymph nodes are present. Thoracic Vasculature: No vascular abnormality is present. Bones and Chest Wall: The bones are diffusely sclerotic with H shaped vertebrae consistentwith patient's diagnosis of sickle cell disease. The visible osseousstructures are intact. Degenerative changes are seen in the spine. Upper Abdomen: The spleen is small caliber. Hyperdense material layering in thedependent gallbladder consistent with gallstones noted on prior ultrasound. Impression: 1.Small area of peripheral groundglass opacities in the left anteriorupper lobe concerning for acute infection. Follow up to resolution isrecommended to exclude an underlying neoplasm. 2.Fibrotic changes in the lower lungs with reticulation, atelectasis,and bronchiectasis. 3.Small pericardial effusion. 4.Cholelithiasis > Dictated by Varun Carl MD (vice president research). I, Sameer Sears MD have personally reviewed and interpreted this examination/study. > Interpreting Provider: Sameer Sears MD on 12/19/2023 12:27 AM German Damon MD CT ORDERABLES * TRANSFUSE FRESH FROZEN PLASMA UNIT(S) (12/18/2023 5:26 PM CDT) German Damon MD NURSING - BLOOD PROD TRANSFUSION * PREPARE FFP UNIT(S), 1 Units (12/18/2023 5:02 PM CDT) Only the most recent of2 resultswithin the time period is included. Pathologist [facility] Unit Description Thawed Plasma 5D [facility] B[facility]OD [facility] LAB Unit ABO AB [facility] Unit Rh POS [facility] Product [facility] [id number] [facility] B LOOD [facility]ANK LAB Unit Donor # [id number] [facility] Unit Status transfused [facility] BLO OD [facility]ANK LAB Product Code [id number] [facility] BLO OD BANK LAB Blood Type Barcode 8400 [facility] LAB Expiration Date S BLOOD BANK LAB Blood Bank BLOOD SPECIMEN / Unknown 12/16/2023 1:58 AM CDT German Damon MD LAB - BLOOD BANK ORD ERABLES [facility]OD [facility] LAB [address] [place] [address], [facility] [phone] * ECHO COMPLETE W CONTRAST (12/18/2023 4:24 PM CDT) IVSd 2D 0.723 cm SSM CV FUJ I PACS LVIDd 5.196 cm [facility]SM CV FUJ I PACS LVIDs 3.903 cm [facility]SM CV FUJ I PACS LVOT diam 2.553 cm [facility]SM CV FUJ I PACS LVPWd 1.005 cm SSM CV FUJ I PACS LV biplane EF 56.992 % SSM CV FUJI PACS LV A2C EF 55.4 % SSM CV [facility] I PACS LV A4C EF 60.23 % [facility]SM CV [facility] I PACS LV EDV A2C 146.628 ml SSM CV FU JI PACS LV EDV A4C 170.088 ml SSM CV FU JI PACS LV ESV A2C 65.396 ml SSM CV FU JI PACS LV ESV A4C 67.644 ml SSM CV FU JI PACS LVOT pk tarik 119.899 cm/s SSM CV F U PACS LVOT VTI 17.988 cm [facility]SM CV [facility] I PACS RVIDd 4.038 cm [facility]SM CV [facility] I PACS RVOT diam Doppler 2.413 cm [facility] P[facility] RVOT pk tarik 58.018 cm/s SSM CV F U PACS RVOT VTI 12.29 cm [facility]SM CV [facility] I PACS LA size 4.297 cm [facility]SM CV [facility] I PACS RA area 21.671 cm [facility] P[facility] AV mn grad 3.36 mmHg SSM CV FU PACS AV pk tarik 124.946 cm/s [facility]SM CV [facility] I PACS AV VTI 21.093 cm [facility]SM CV [facility] I PACS MV A pk tarik 60.502 cm/s SSM CV F U PACS MV E pk tarik 78.535 cm/s SSM CV F U PACS MV E' lateral tarik 14.675 cm/s [facility] P[facility] MV mn grad 1.853 mmHg SSM CV FU PACS MV VTI 20.082 cm [facility]SM CV [facility] I PACS PV pk tarik 60.705 cm/s [facility]SM CV [facility] I PACS PV VTI 13.163 cm [facility]SM CV [facility] I PACS TAPSE 2.631 cm [facility]SM CV [facility] I PACS Ascending aorta 3.098 cm [facility] CV [facility] P[facility] IVC Diam Expiration 1.739 cm [facility] PACS Myocardial strain charge 2 unitless [facility] PACS Sinus of Valsalva 3.754 cm [facility] CV [facility] PACS Anatomical Region Laterality Modality Ultrasound 12/18/2023 3:33 PM CDT Narrative 12/18/2023 5:09 PM CDT Summary * The left ventricle is normal in size, with normal systolic function and an EF of 57 %. Left ventricular wall motion is grossly normal, however endocardial definition is limited. * The left ventricular diastolic function is normal. * Right ventricle is normal in size with normal systolic function. * No hemodynamically significant valve disease. Patient Info Name: Quan Downing Age: 38 years : 1985 Gender: Male Ht: 70 in Wt: 236 lb BSA: 2.34 m2 HR: 88 bpm BP: 141 / 78 mmHg Heart Rhythm: Sinus Rhythm Exam Date: 12/18/2023 3:33 PM Patient Status: I/P Study Site: [facility] Primary Location: [facility] Info Exam Type: ECHO COMPLETE W CONTRAST Indications D57.01 - Acute chest syndrome (HCC) Procedure(s) * A complete 2D, color Doppler, spectral Doppler and M-Mode transthoracic echocardiogram was performed with an Ultrasound Enhancing Agent (UEA). Contrast/Agitated Saline Contrast / Saline: Definity Amount: 0.50 ml Administered By: Rosi Johnson Reaction to Contrast: no Staff Referring Physician: German Damon Ordering Provider: German Damon Attending Physician: German Damon Mba Intern: Rosi Johnson Left Ventricle Left ventricular systolic function is normal with an ejection fraction by Biplane Method of Discs of 57 %. The left ventricle is normal in size. The left ventricular mass is normal. Left ventricular segmental wall motion is grossly normal, however endocardial definition is limited. The left ventricular diastolic function is normal. Right Ventricle The right ventricle is normal in size. Right ventricular systolic function is normal. Left Atrium The left atrium is mildly dilated. Right Atrium The right atrium is small in size. Atrial Septum Interatrial septum not well visualized by 2D and color Doppler imaging. Aortic Valve The aortic valve is trileaflet. There is no aortic valve regurgitation. There is no aortic valve stenosis with a peak velocity of 1 m/s, mean gradient of 3 mmHg, and aortic valve area of 4.36 cm2. Pulmonic Valve The pulmonic valve is grossly normal. There is no pulmonic valve stenosis. There is no significant pulmonic regurgitation. Mitral Valve The mitral valve is normal. There is no mitral valve stenosis. There is trace mitral valve regurgitation. Tricuspid Valve The tricuspid valve is normal. There is no significant tricuspid valve regurgitation. Unable to assess pulmonary pressures due to a lack of tricuspid and pulmonic regurgitation. No stenosis. Inferior Vena Cava The inferior vena cava is normal in size (< 2.1 cm). There is > 50% collapse of the IVC upon inspiration with an estimated right atrial pressure of 3 mmHg. Pericardium/Pleural There is no pericardial effusion. Aorta The aortic root at the sinus of Valsalva is normal in size. The ascending aorta is normal in size. Measurements Left Ventricular Outflow Tract Name Value Normal LVOT 2D LVOT Diameter 2.6 cm LVOT Area 5.1 cm2 LVOT Doppler LVOT Peak Velocity 1.2 m/s LVOT Peak Gradient 5 mmHg LVOT Mean Velocity 71.28 cm/s LVOT Mean Gradient 2 mmHg LVOT VTI 18.0 cm LVOT VTI/AV VTI Ratio 0.9 LVOT Stroke Volume 92 ml LVOT Stroke Volume Index 39 ml/m2 35-58 LVOT CO 8.0 l/min LVOT CI 3.4 l/min/m2 Pulmonic Valve Name Value Normal PV 2D RVOT Diameter (2D) 2.4 cm 1.7-2.7 RVOT Doppler RVOT Peak Velocity 0.6 m/s RVOT Peak Gradient 1 mmHg RVOT Mean Gradient 1 mmHg PV Doppler PV Peak Velocity 0.6 m/s PV Peak Gradient 1 mmHg PV Mean Gradient 1 mmHg PV Area (Cont Eq VTI) 4.27 cm2 PV Area Index (Cont Eq VTI) 1.83 cm2/m2 PV Area (Cont Eq Tarik) 4.4 cm2 PV Area Index (Cont Eq Tarik) 1.87 cm2/m2 Mitral Valve Name Value Normal MV Doppler MV Peak Gradient 4 mmHg MV Mean Gradient 2 mmHg MV DI (VTI) 1.12 MV PHT 54 ms MV Area (PHT) 4.07 cm2 4.00-5.00 MV Area (Cont Eq VTI) 4.58 cm2 MV Diastolic Function MV E Peak Velocity 0.8 m/sec MV A Peak Velocity 0.6 m/sec MV E/A 1.3 MV Decel Time (PW) 187 ms MV Annular TDI MV Septal e' Velocity 13 cm/s >=8 MV E/e' (Septal) 6 <=8 MV Lateral e' Velocity 15 cm/s >=10 MV E/e' (Lateral) 5 <=8 MV e' Average 14 cm/s MV E/e' (Average) 6 Tricuspid Valve Name Value Normal Estimated PAP/RSVP RA Pressure 3 mmHg <=5 TV Annular TDI TV Lateral Danita s' Velocity 11 cm/s 10-19 Pulmonary Vessels Name Value Normal Pulmonary Veins Pulm Vein Peak Systolic Velocity 58.4 cm/s Pulm Vein Peak Diastolic Velocity 67.6 cm/s Pulm Vein S/D Velocity Ratio 1 Pulm Vein Ar Velocity 46.4 cm/s Aorta Name Value Normal Ascending Aorta Sinus of Valsalva Diameter 3.8 cm 2.8-4.0 Sinus of Valsalva Index 1.6 cm/m2 1.3-2.1 Asc Ao Diameter 3.1 cm 2.2-3.8 Asc Ao Diameter Index 1.3 cm/m2 1.1-1.9 Septae/Shunt/Generic Name Value Normal Qp/Qs Qp/Qs 0.6 Venous Name Value Normal IVC/SVC IVC Diameter 1.7 cm <=2.1 Aortic Valve Name Value Normal AV 2D/MM AV Cusp Sep (MM) 2.6 cm AV Doppler AV Peak Velocity 1.25 m/s AV Peak Gradient 6 mmHg AV Mean Gradient 3 mmHg AV VTI 21 cm AV Area (Cont Eq VTI) 4.36 cm2 >=2.00 AV Area (Cont Eq Tarik) 4.91 cm2 AV DI (VTI) 0.85 AV DI (Tarik) 0.96 AV Regurgitation 2D LVOT Area 5.12 cm2 Ventricles Name Value Normal LV Dimensions 2D/MM IVS Diastolic Thickness (2D) 0.7 cm 0.6-1.0 LVID Diastole (2D) 5.2 cm 4.2-5.8 LVPW Diastolic Thickness (2D) 1.0 cm 0.6-1.0 IVS Systolic Thickness (2D) 1.1 cm LVID Systole (2D) 3.9 cm 2.5-4.0 LVPW Systolic Thickness (2D) 1.1 cm LV Mass (2D Cubed) 154 g 88-224 LV Mass Index (2D Cubed) 66 g/m2 49-115 Relative Wall Thickness (2D) 0.39 <=0.42 LV Fractional Shortening/Ejection Fraction 2D/MM LV Fractional Shortening (2D) 25 % 25-43 LV EF (2D Teicholz) 49 % 52-72 LV Diastolic Volume (4C MOD) 170 ml LV EF (4C MOD) 60 % LV Diastolic Volume (2C MOD) 147 ml LV EF (2C MOD) 55 % LV Diastolic Volume (BP MOD) 164 ml 62-150 LV Diastolic Volume Index (BP MOD) 70 ml/m2 34-74 LV Systolic Volume (BP MOD) 70 ml 21-61 LV Systolic Volume Index (BP MOD) 30 ml/m2 11-31 LV EF (BP MOD) 57 % 52-72 LV Diastolic Length (4C) 10.1 cm LV Systolic Length (4C) 8.4 cm LV Stroke Volume (4C MOD) 102 ml RV Dimensions 2D/MM RVID Diastole (2D) 4.0 cm 2.5-3.5 RVID Systole (2D) 3.4 cm TAPSE 2.6 cm >=1.7 Atria Name Value Normal LA Dimensions LA Dimension (2D) 4.3 cm 3.0-4.1 LA Dimen Index (2D) 1.8 cm/m2 RA Dimensions RA Area (4C) 22 cm2 <=18 RA Area (4C) Index 9 cm2/m2 Report Signatures Finalized by Ying Fisher on 12/18/2023 05:09 PM Procedure Note Ying Fisher MD - 12/19/2023 Summary * The left ventricle is normal in size, with normal systolic functionand an EF of 57 %. Left ventricular wall motion is grossly normal, however endocardial definition is limited. * The left ventricular diastolic function is normal. * Right ventricle is normal in size with normal systolic function. * No hemodynamically significant valve disease. Patient Info Name: Quan Downing Age: 38 years : 1985 Gender: Male Ht: 70 in Wt: 236 lb BSA: 2.34 m2 HR: 88 bpm BP: 141 / 78 mmHg Heart Rhythm: Sinus Rhythm Exam Date: 12/18/2023 3:33 PM Patient Status: I/P Study Site: [facility] Primary Location: [facility] EStudy Info Exam Type: ECHO COMPLETE W CONTRAST Indications D57.01 - Acute chest syndrome (HCC) Procedure(s) * A complete 2D, color Doppler, spectral Doppler and M-Modetransthoracic echocardiogram was performed with an Ultrasound Enhancing Agent (UEA). Contrast/Agitated Saline Contrast / Saline: Definity Amount: 0.50 ml Administered By: Rosi Johnson Reaction to Contrast: no Staff Referring Physician: German Damon Ordering Provider: German Damon Attending Physician: German Damon Mba Intern: Rosi Johnson Left Ventricle Left ventricular systolic function is normal with an ejection fractionby Biplane Method of Discs of 57 %. The left ventricle is normal in size.The left ventricular mass is normal. Left ventricular segmental wall motionis grossly normal, however endocardial definition is limited. The left ventricular diastolic function is normal. Right Ventricle The right ventricle is normal in size. Right ventricular systolicfunction is normal. Left Atrium The left atrium is mildly dilated. Right Atrium The right atrium is small in size. Atrial Septum Interatrial septum not well visualized by 2D and color Dopplerimaging. Aortic Valve The aortic valve is trileaflet. There is no aortic valveregurgitation. There is no aortic valve stenosis with a peak velocity of 1 m/s, meangradient of 3 mmHg, and aortic valve area of 4.36 cm2. Pulmonic Valve The pulmonic valve is grossly normal. There is no pulmonic valvestenosis. There is no significant pulmonic regurgitation. Mitral Valve The mitral valve is normal. There is no mitral valve stenosis. Thereis trace mitral valve regurgitation. Tricuspid Valve The tricuspid valve is normal. There is no significant tricuspid valve regurgitation. Unable to assess pulmonary pressures due to a lack oftricuspid and pulmonic regurgitation. No stenosis. Inferior Vena Cava The inferior vena cava is normal in size (< 2.1 cm). There is > 50%collapse of the IVC upon inspiration with an estimated right atrial pressure of 3mmHg. Pericardium/Pleural There is no pericardial effusion. Aorta The aortic root at the sinus of Valsalva is normal in size. Theascending aorta is normal in size. Measurements Left Ventricular Outflow Tract Name Value Normal LVOT 2D LVOT Diameter 2.6 cm LVOT Area 5.1 cm2 LVOT Doppler LVOT Peak Velocity 1.2 m/s LVOT Peak Gradient 5 mmHg LVOT Mean Velocity 71.28 cm/s LVOT Mean Gradient 2 mmHg LVOT VTI 18.0 cm LVOT VTI/AV VTI Ratio 0.9 LVOT Stroke Volume 92 ml LVOT Stroke Volume Index 39 ml/m2 35-58 LVOT CO 8.0 l/min LVOT CI 3.4 l/min/m2 Pulmonic Valve Name Value Normal PV 2D RVOT Diameter (2D) 2.4 cm 1.7-2.7 RVOT Doppler RVOT Peak Velocity 0.6 m/s RVOT Peak Gradient 1 mmHg RVOT Mean Gradient 1 mmHg PV Doppler PV Peak Velocity 0.6 m/s PV Peak Gradient 1 mmHg PV Mean Gradient 1 mmHg PV Area (Cont Eq VTI) 4.27 cm2 PV Area Index (Cont Eq VTI) 1.83 cm2/m2 PV Area (Cont Eq Tarik) 4.4 cm2 PV Area Index (Cont Eq Tarik) 1.87 cm2/m2 Mitral Valve Name Value Normal MV Doppler MV Peak Gradient 4 mmHg MV Mean Gradient 2 mmHg MV DI (VTI) 1.12 MV PHT 54 ms MV Area (PHT) 4.07 cm2 4.00-5.00 MV Area (Cont Eq VTI) 4.58 cm2 MV Diastolic Function MV E Peak Velocity 0.8 m/sec MV A Peak Velocity 0.6 m/sec MV E/A 1.3 MV Decel Time (PW) 187 ms MV Annular TDI MV Septal e' Velocity 13 cm/s >=8 MV E/e' (Septal) 6 <=8 MV Lateral e' Velocity 15 cm/s >=10 MV E/e' (Lateral) 5 <=8 MV e' Average 14 cm/s MV E/e' (Average) 6 Tricuspid Valve Name Value Normal Estimated PAP/RSVP RA Pressure 3 mmHg <=5 TV Annular TDI TV Lateral Danita s' Velocity 11 cm/s 10-19 Pulmonary Vessels Name Value Normal Pulmonary Veins Pulm Vein Peak Systolic Velocity 58.4 cm/s Pulm Vein Peak Diastolic Velocity 67.6 cm/s Pulm Vein S/D Velocity Ratio 1 Pulm Vein Ar Velocity 46.4 cm/s Aorta Name Value Normal Ascending Aorta Sinus of Valsalva Diameter 3.8 cm 2.8-4.0 Sinus of Valsalva Index 1.6 cm/m2 1.3-2.1 Asc Ao Diameter 3.1 cm 2.2-3.8 Asc Ao Diameter Index 1.3 cm/m2 1.1-1.9 Septae/Shunt/Generic Name Value Normal Qp/Qs Qp/Qs 0.6 Venous Name Value Normal IVC/SVC IVC Diameter 1.7 cm <=2.1 Aortic Valve Name Value Normal AV 2D/MM AV Cusp Sep (MM) 2.6 cm AV Doppler AV Peak Velocity 1.25 m/s AV Peak Gradient 6 mmHg AV Mean Gradient 3 mmHg AV VTI 21 cm AV Area (Cont Eq VTI) 4.36 cm2 >=2.00 AV Area (Cont Eq Tarik) 4.91 cm2 AV DI (VTI) 0.85 AV DI (Tarik) 0.96 AV Regurgitation 2D LVOT Area 5.12 cm2 Ventricles Name Value Normal LV Dimensions 2D/MM IVS Diastolic Thickness (2D) 0.7 cm 0.6-1.0 LVID Diastole (2D) 5.2 cm 4.2-5.8 LVPW Diastolic Thickness (2D) 1.0 cm 0.6-1.0 IVS Systolic Thickness (2D) 1.1 cm LVID Systole (2D) 3.9 cm 2.5-4.0 LVPW Systolic Thickness (2D) 1.1 cm LV Mass (2D Cubed) 154 g 88-224 LV Mass Index (2D Cubed) 66 g/m2 49-115 Relative Wall Thickness (2D) 0.39 <=0.42 LV Fractional Shortening/Ejection Fraction 2D/MM LV Fractional Shortening (2D) 25 % 25-43 LV EF (2D Teicholz) 49 % 52-72 LV Diastolic Volume (4C MOD) 170 ml LV EF (4C MOD) 60 % LV Diastolic Volume (2C MOD) 147 ml LV EF (2C MOD) 55 % LV Diastolic Volume (BP MOD) 164 ml 62-150 LV Diastolic Volume Index (BP MOD) 70 ml/m2 34-74 LV Systolic Volume (BP MOD) 70 ml 21-61 LV Systolic Volume Index (BP MOD) 30 ml/m2 11-31 LV EF (BP MOD) 57 % 52-72 LV Diastolic Length (4C) 10.1 cm LV Systolic Length (4C) 8.4 cm LV Stroke Volume (4C MOD) 102 ml RV Dimensions 2D/MM RVID Diastole (2D) 4.0 cm 2.5-3.5 RVID Systole (2D) 3.4 cm TAPSE 2.6 cm >=1.7 Atria Name Value Normal LA Dimensions LA Dimension (2D) 4.3 cm 3.0-4.1 LA Dimen Index (2D) 1.8 cm/m2 RA Dimensions RA Area (4C) 22 cm2 <=18 RA Area (4C) Index 9 cm2/m2 Report Signatures Finalized by Ying Fisher on 12/18/2023 05:09 PM German Damon MD ECHO CUPID * (ABNORMAL) HEPATITIS A ANTIBODY (12/18/2023 1:20 PM CDT) Pathologist [facility] Hepatitis A Virus Antibody Total Positive( A) Negative 12/20/2023 3:17 PM CDT [facility] ([facility]) Comment: The positive anti-HAV is consistent with recent or remote Hepatitis A infection or antibody response to HAV vaccination. False positive anti-HAV can occur. Performed By: [facility] [address] [place] [address] [employer] Estimator: Reji Mckeon MD, PhD CLIA Number: [id number] Blood BLOOD SPECIMEN / Unknown Venipuncture / Unknown 12/18/2023 1:20 PM CDT 12/18/2023 1:26 PM CDT German Damon MD LAB - CHEMISTRY [facility]DDarrell [facility] ([facility]) [address] * HEPATITIS B PANEL (12/18/2023 11:39 AM CDT) Hepatitis B Virus Surface Antibody Non-reacti ve Non-react daniel 12/18/2023 5:28 PM CDT [facility] Comment: < 8 mIU/mL Hepatitis B surface Antibody (HBsAb). Nonreactive for HBsAb - individual is considered not immune to Hepatitis B Virus infection. Hepatitis B Virus Surface Antigen Non-reacti ve Non-react daniel 12/18/2023 5:28 PM CDT [facility] Hepatitis B Core Virus Antibody IgM Non-reacti ve Non-react daniel 12/18/2023 5:28 PM CDT [facility] Blood BLOOD SPECIMEN / Unknown Venipuncture / Unknown 12/18/2023 11:39 AM CDT 12/18/2023 11:47 AM CDT German Damon MD LAB - CHEMISTRY NAZARIO GRANT [facility] [address] [id number] [phone] * US Abdomen Limited (12/18/2023 7:58 AM CDT) Anatomical Region Laterality Modality Abdomen Ultrasound 12/18/2023 8:06 AM CDT Impressions 12/18/2023 9:24 AM CDT IMPRESSION: Cholelithiasis with mild gallbladder wall thickening. No significant pericholecystic fluid or hyperemia. Negative sonographic Dee's sign (of note, this could be unreliable if the patient is on pain medication). Overall, findings are equivocal and not diagnostic of cholecystitis. If there is persistent clinical concern, recommend further evaluation with nuclear medicine HIDA scan. Report dictated by Timo Altamirano MD(vice president research). IElbert MD have personally reviewed and interpreted this examination/study. > Interpreting Provider: Elbert Santo MD on 12/18/2023 9:24 AM Narrative 12/18/2023 9:24 AM CDT PROCEDURE: US ABDOMEN LIMITED, DATE/TIME OF EXAM: 12/18/2023 7:58 AM, LOCATION [facility] INDICATION: D57.00: Sickle cell crisis (HCC) ADDITIONAL CLINICAL INFORMATION: Ordering Provider Reason For Exam: RUQ to R/O cholecystitis COMPARISON: None. TECHNIQUE: Bruce scale and color Doppler ultrasound imaging of the abdomen per department protocol. FINDINGS: Limited evaluation due to bowel gas and patient body habitus. Liver: The liver is normal in size and echotexture. No intrahepatic biliary ductal dilation is seen. Portal venous flow is hepatopetal. Gallbladder: Multiple gallstones are noted within the gallbladder. The gallbladder kirkpatrick is mildly thickened measuring 3.5 mm. No pericholecystic fluid or hyperemia. Sonographic Dee's sign is negative. There is no dilation of the common bile duct. Pancreas: Obscured by overlying bowel contents. Spleen: The spleen is not visualized. Kidneys: The right kidney is 10.5 cm in length. The cortical thickness and echotexture are normal. Other: No fluid or mass is present. Procedure Note Elbert Santo MD - 12/18/2023 PROCEDURE: US ABDOMEN LIMITED, DATE/TIME OF EXAM: 12/18/2023 7:58 AM, LOCATION [facility] INDICATION: D57.00: Sickle cell crisis (HCC) ADDITIONAL CLINICAL INFORMATION: Ordering Provider Reason For Exam: RUQ to R/O cholecystitis COMPARISON: None. TECHNIQUE: Bruce scale and color Doppler ultrasound imaging of theabdomen per department protocol. FINDINGS: Limited evaluation due to bowel gas and patient body habitus. Liver: The liver is normal in size and echotexture. No intrahepaticbiliary ductal dilation is seen. Portal venous flow is hepatopetal. Gallbladder: Multiple gallstones are noted within the gallbladder. The gallbladder kirkpatrick is mildly thickened measuring 3.5 mm. Nopericholecystic fluid or hyperemia. Sonographic Dee's sign is negative. There is no dilation of the common bile duct. Pancreas: Obscured by overlying bowel contents. Spleen: The spleen is not visualized. Kidneys: The right kidney is 10.5 cm in length. The cortical thicknessand echotexture are normal. Other: No fluid or mass is present. IMPRESSION: Cholelithiasis with mild gallbladder wall thickening. No significant pericholecystic fluid or hyperemia. Negative sonographic Dee's sign(of note, this could be unreliable if the patient is on pain medication). Overall, findings are equivocal and not diagnostic of cholecystitis. If there is persistent clinical concern, recommend further evaluation with nuclear medicine HIDA scan. Report dictated by Timo Altamirano MD(vice president research). I, Elbert Santo MD have personally reviewed and interpreted this examination/study. > Interpreting Provider: Elbert Santo MD on 12/18/2023 9:24 AM German Damon MD US ORDERABLES * (ABNORMAL) HEMOGLOBIN A1C (12/18/2023 3:46 AM CDT) [facility] Hemoglobin A1c 6.0(H) <=5.6 % 12/18/2023 10:23 AM CDT [facility] Estimated Average Glucose 126 mg/dL 12/18/2023 10:23 AM T [facility] Comment: HbA1c Interpretation: Normal : < 5.7% Pre-diabetes: 5.7-6.4% Diabetes: Equal to or greater than 6.5% Test results diagnostic of diabetes should be repeated for confirmation. Treatment target values recommended by ADA and other clinical organizations should be used to evaluate metabolic control in patients. Reference: [place] [employer], Standards of Care in Diabetes -2020 In patients 70 years and older consider HbA1c target range of 7.0-7.5% (Reference: Georges Gruber, et al. JAMDA. 2012) The Sebia assay for the measurement of HbA1c is a National Glycohemoglobin Standardization Program (NGSP) certified method. Blood BLOOD SPECIMEN / Unknown Venipuncture / Unknown 12/18/2023 3:46 AM CDT 12/18/2023 4:14 AM CDT German Damon MD LAB - CHEMISTRY NAZARIO GRANT [facility] Organization Address City/State/ZIP Co de Phone Number [facility] [address] [place] [phone], [facility] [phone] * (ABNORMAL) LIPID PROFILE (12/18/2023 3:46 AM CDT) Cholesterol Total 100 <200 mg/dL 12/18/2023 4:46 AM CDT [facility] HDL 7(L) >40 mg/dL 12/18/2023 4:46 AM T [facility] Comment: ATP III Classification of HDL Cholesterol: <40 mg/dL: Considered a major risk factor. >60 mg/dL: Considered a negative risk factor. LDL Calculated 54 <100 mg/dL 12/18/2023 4:46 AM T [facility] Comment: ATP III Classification of LDL Cholesterol: <100 mg/dL: Optimal 100 - 129 mg/dL: Near Optimal/Above Optimal 130 - 159 mg/dL: Borderline High 160 - 189 mg/dL: High >190 mg/dL: Very High Triglycerides 195(H) <150 mg/dL 12/18/2023 4:46 AM T [facility] Comment: ATP III Classification of Triglycerides: <150 mg/dL: Normal 150 - 199 mg/dL: Borderline High 200 - 400 mg/dL: High >500 mg/dL: Very High Blood BLOOD SPECIMEN / Unknown Venipuncture / Unknown 12/18/2023 3:46 AM CDT 12/18/2023 4:14 AM CDT German Damon MD LAB - CHEMISTRY NAZARIO [facility] Organization Address [facility]/State/ZIP Co de Phone Number [facility] [address] [phone], [facility] [phone] * DERMATOPATHOLOGY DIF ONLY ( Specimen Count = 1) (12/18/2023 12:00 AM CDT) Case Report Dermatopathol ogy Report Case: [id number] Authorizing Provider: Guanaco Arana MD Collected: 12/18/2023 12:00 AM Ordering Location: [facility] - Received: 12/18/2023 09:56 AM Dermatology Pathologist: Marcy Suarez MD Specimen: Skin, right dorsal forearm 4:49 PM CDT DERMATOPATHOLOGY LABORATORY Final Diagnosis Specimen A. SKIN, right dorsal forearm: 1+ PATCHY LINEAR BASEMENT MEMBRANE ZONE POSITIVITY WITH IgG AND C3 (L13.9) FOCAL INTRAEPIDERMA L IgA (see microscopic description and comment) (See direct immunofluores cence results [id number]) 4:49 PM CDT DERMATOPATHOLOGY LABORATORY Direct Immunofluorescence Report - Specimen A Specimen A IgA IgM IgG C3 CollV Fibrinogen Epidermis Focal intercellular Negative Negative Negative Negative Negative Basement Membrane Negative Negative 1+ patchy 1+ patchy 2+ (floor) Negative Vessels Negative Negative Negative Negative Negative Negative Interstitium Negative Negative Negative Negative Negative Non-specific 4:49 PM CDT DERMATOPATHOLOGY LABORATORY Clinical History DRESS vs BP vs IgA pemphigus vs other 4:49 PM CDT DERMATOPATHOLOGY LABORATORY Gross Description Specimen A: Received is one Payam's media filled container labeled with the patient's name and designated right dorsal forearm. The specimen consists of a punch biopsy measuring 3x3x5 mm. The specimen is submitted in whole for direct immunofluores cence testing. 4:49 PM CDT DERMATOPATHOLOGY LABORATORY Microscopic Description Specimen A. SKIN, right dorsal forearm: Controls were run in parallel. There is patchy linear staining at the dermal-epider mal junction with IgG and C3. There is also focal intercellular IgA staining in the epidermis. Staining is negative with IgM. Collagen IV stains the basement membrane zone and vessels. Fibrinogen shows non-specific staining. COMMENT: The clinical images in [facility], as well as the fixed tissue specimen ([id number]), are reviewed. Given the fixed tissue results, the overall direct immunofluores cence results are somewhat favored to be nonspecific. Nonspecific direct immunofluores cence findings have been reported in the setting of coma blisters. Although pauci-inflamm atory/cell-po or variant of bullous pemphigoid was considered, the presence of eccrine gland necrosis in the fixed tissue specimen would be unusual. A variant of pemphigus was also considered; however, the fixed tissue results do not support this. Clinical correlation is recommended. 4:49 PM CDT DERMATOPATHOLOGY LABORATORY Disclaimer An external and internal positive and negative controls are appropriate for the histochemical , immunohistoch emical and immunofluores cence stain(s) in this case (if any), except where stated explicitly. The performance characteristi cs of the stain(s) cited in this report were developed and its performance characteristi c determined by the Dermatopathol ogy Laboratory at [facility], directed by Dr. Dianna Arana. These tests need not be, and therefore are not, approved by the [place] Food and Drug Administratio n. The tests are used for clinical purposes. Billing Codes Specimen Charges Stain Charges 58197 41035 95393 35966 50197 11203 1 1 1 1 1 1 4 4:49 PM CDT DERMATOPATHOLOGY LABORATORY Embedded Images 4:49 PM CDT DERMATOPATHOLOGY LABORATORY Pathology/Cytolog y TISSUE SPECIMEN FROM SKIN / Unknown 12/18/2023 12/18/2023 9:56 AM CDT Guanaco Arana MD LAB - PATHOLOGY/CYTO LOGY ORDERABLES DERMATOPATHOLOGY LABORATORY [facility] Department of Dermatology [address], [address] [phone] * DERMATOPATHOLOGY (Specimen Count = 1) (12/18/2023 12:00 AM CDT) Case Report Dermatopathology Report Case: [id number] Authorizing Provider: Guanaco Arana MD Collected: 12/18/2023 12:00 AM Ordering Location: [facility] - Received: 12/18/2023 09:55 AM Dermatology Pathologist: Marcy Suarez MD Specimen: Skin, right dorsal forearm 4:49 PM CDT DERMATOPATHOLOGY LABORATORY Final Diagnosis Specimen A. 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 The specimen consists of a punch biopsy measuring 4x4x5 mm. Jar 0. 4:49 PM CDT DERMATOPATHOLOGY LABORATORY Microscopic Description Specimen A. SKIN, right dorsal forearm: Epidermis and dermis are present for evaluation. There is a subepidermal blister present with minimal associated inflammation. The superficial dermal blood vessels are not significantly thickened. In addition, eccrine gland necrosis is present. Periodic acid-Roberto (PAS) stain fails to highlight fungal elements in the available sections. COMMENT: The clinical images in EPIC are reviewed, and the patient's history of Sickle cell disease is noted. The overall histologic features are most consistent with coma blister. Coma blisters have been reported in various clinical scenarios, including but not limited to anoxia, rhabdomyolysis, and hyperthermia. A deeper process cannot be excluded. This case was also reviewed by Dr. Guanaco Arana, who agrees. See direct immunofluorescence results. 4:49 PM CDT DERMATOPATHOLOGY LABORATORY Disclaimer An external and internal positive and negative controls are appropriate for the histochemical, immunohistochemical and immunofluorescence stain(s) in this case (if any), except where stated explicitly. The performance characteristics of the stain(s) cited in this report were developed and its performance characteristic determined by the Dermatopathology Laboratory at [facility], directed by Dr. Dianna Arana. These tests need not be, and therefore are not, approved by the [place] Food and Drug Administration. The tests are used for clinical purposes. Billing Codes Specimen Charges Stain Charges 14618 1 98620 1 4 4:49 PM CDT DERMATOPATHOLOGY LABORATORY Embedded Images 4 4:49 PM CDT DERMATOPATHOLOGY LABORATORY Pathology/Cytolog y TISSUE SPECIMEN FROM SKIN / Unknown 12/18/2023 12/18/2023 9:55 AM CDT Guanaco Arana MD LAB - PATHOLOGY/CYTO LOGY ORDERABLES DERMATOPATHOLOGY LABORATORY [facility] - Department of Dermatology [address] [phone] * LACTIC ACID BLOOD (12/17/2023 11:08 PM CDT) [facility] Lactic Acid-Stat 1.2 <=2.0 mmol/L 12/17/2023 11:36 PM CDT [facility] Blood BLOOD SPECIMEN / Unknown Venipuncture / Unknown 12/17/2023 11:08 PM CDT 12/17/2023 11:15 PM CDT Geramn Damon MD LAB - CHEMISTRY NAZARIO GRANT [facility] [address] [place] [phone], [facility] [phone] * VANCOMYCIN LEVEL RANDOM (12/17/2023 12:23 PM CDT) Only the most recent of4 resultswithin the time period is included. [facility] Vancomycin Random 11.4 Therapeutic Ranges not established for random specimens ug/mL 12/17/2023 1:06 PM CDT [facility] Blood BLOOD SPECIMEN / Unknown Venipuncture / Unknown 12/17/2023 12:23 PM CDT 12/17/2023 12:30 PM CDT Narrative [facility] - 12/17/2023 1:06 PM CDT See institution protocol. German Damon MD LAB - CHEMISTRY NAZARIO GRANT Performing Organization Address [facility]/ZIP Co de Phone Number [address] [phone], [facility] [phone] * ZEUS-CANTU VIRUS ANTIBODY TO VCA IGM (12/17/2023 4:41 AM CDT) [facility] Zeus-Cantu Virus Antibody IgM Viral Capsid Antigen <10.0 0.0 - 43.9 U/mL 12/18/2023 9:16 PM CDT [facility] ([facility]) Comment: INTERPRETIVE INFORMATION: Zeus-Cantu Virus Antibody to Viral Capsid Antigen, IgM 35.9 U/mL or less.......Not Detected 36.0-43.9 U/mL..........Indeterminate - Repeat testing in 10-14 days may be helpful. 44.0 U/mL or greater....Detected Performed By: [facility] [address] [place] [address] [employer] Roofing Estimator: Reji Mckeon MD, PhD CLIA Number: [id number] Blood BLOOD SPECIMEN / Unknown Venipuncture / Unknown 12/17/2023 4:41 AM CDT 12/17/2023 4:52 AM CDT German Damon MD LAB - SEROLOGY ORDER DENNIS Performing Organization Address [facility] Co de Phone Number [facility] ([facility]) [address] [place] [address], [facility] * CYTOMEGALOVIRUS ANTIBODY IGM BLOOD (12/17/2023 4:41 AM CDT) [facility] Cytomegalovirus Antibody IgM <30.0 0.0 - 29.9 AU/mL 12/18/2023 6:12 AM CDT [facility] ([facility]) Comment: Negative <30.0 Equivocal 30.0 - 34.9 Positive >34.9 A positive result is generally indicative of acute infection, reactivation or persistent IgM production. Blood BLOOD SPECIMEN / Unknown Venipuncture / Unknown 12/17/2023 4:41 AM CDT 12/17/2023 4:52 AM CDT Narrative [facility] ([facility]) - 12/18/2023 6:12 AM CDT Performed at: [address] [place] [address] [place], [place] [id number] Signaler: Saeed Singleton PhD, Phone: [phone] German Damon MD LAB - CHEMISTRY ORDE RUDY Performing Organization Address City/[facility]/ZIP Co de Phone Number [facility] ([facility]) [address] [place] [phone] * (ABNORMAL) CYTOMEGALOVIRUS ANTIBODY IGG BLOOD (12/17/2023 4:41 AM CDT) [facility] Cytomegalovirus Antibody IgG 6.90(H) <=0.70 U/mL 12/18/2023 10:42 PM CDT [facility] ([facility]) Comment: INTERPRETIVE INFORMATION: Cytomegalovirus Antibody, IgG 0.59 U/mL or less......... Not Detected 0.6 - 0.69 U/mL........... Indeterminate-Repeat testing in 10-14 days may be helpful. 0.70 U/mL or greater...... Detected In immunocompromised patients, CMV serology (IgG or IgM antibody titers) may not be reliable and may be misleading in the diagnosis of acute or reactivation CMV disease. The preferred method for diagnosis is culture of virus and/or demonstration of viral antigen in peripheral white cells (buffy coat), bronchoalveolar lavage (BAL) cells, or tissue biopsies. This test should not be used for blood donor screening, associated re-entry protocols, or for screening Human Cell, Tissues and Cellular and Tissue-Based Products (HCT/P). The best evidence for current infection is a significant change on two appropriately timed specimens, where both tests are done in the same laboratory at the same time. Performed By: [employer] [facility] [address] [place] [address] Commercial Roofing Estimator: Reji Mckeon MD, PhD CLIA Number: [id number] Blood BLOOD SPECIMEN / Unknown Venipuncture / Unknown 12/17/2023 4:41 AM CDT 12/17/2023 4:51 AM CDT German Damon MD LAB - CHEMISTRY NAZARIO GRANT [facility] Organization Address City/State/ZIP Co de Phone Number [facility]) [address] [place] [address], [facility] * PARVOVIRUS B19 ANTIBODY IGM (12/17/2023 4:41 AM CDT) Parvovirus B19 Antibody IgM 0.5 0.0 - 0.8 index 12/19/2023 3:09 PM CDT [facility] ([facility]) Comment: Negative <0.9 Equivocal 0.9 - 1.1 Positive >1.1 Blood BLOOD SPECIMEN / Unknown Venipuncture / Unknown 12/17/2023 4:41 AM CDT 12/17/2023 4:51 AM CDT Narrative [facility] ([facility]) - 12/19/2023 3:09 PM CDT Performed at: - [address] [id number] Signaler: Reena Cha MD, Phone: [phone] German Damon MD LAB - SEROLOGY ORDER DENNIS Performing Organization Address City/[facility]/ZIP Co de Phone Number [facility] ([facility]) [address] [place] [address] * (ABNORMAL) PARVOVIRUS B19 ANTIBODY IGG (12/17/2023 4:41 AM CDT) Parvovirus B19 Antibody IgG 0.97(H) <=0.90 IV 12/21/2023 1:56 AM CDT [facility] ([facility]) Comment: INTERPRETIVE INFORMATION: Parvovirus B19 Antibody, IgG 0.90 IV or less .......... Negative - No significant level of detectable Parvovirus B19 IgG antibody. 0.91 - 1.09 IV ........... Equivocal - Repeat testing in 7-21 days may be helpful. 1.10 IV or greater ....... Positive - IgG antibody to Parvovirus B19 detected which may indicate a current or past infection. The best evidence for current infection is a significant change on two appropriately timed specimens, where both tests are done in the same laboratory at the same time. Performed By: [employer] [address] [place] [address] Commercial Roof[employer] Estimator: Reji Mcekon MD, PhD CLIA Number: [id number] Blood BLOOD SPECIMEN / Unknown Venipuncture / Unknown 12/17/2023 4:41 AM CDT 12/17/2023 4:52 AM CDT German Damon MD LAB - SEROLOGY ORDER DENNIS Performing Organization Address City/[facility]/ZIP Co de Phone Number [facility] ([facility]) [address] [place] [address] * (ABNORMAL) ZEUS-CANTU VIRUS ANTIBODY TO VCA IGG (12/17/2023 4:41 AM CDT) Zeus-Cantu Virus Antibody IgG Viral Capsid Antigen >750.0(H) 0.0 - 21.9 U/mL 12/18/2023 10:37 PM CDT [facility]) Comment: INTERPRETIVE INFORMATION: Zeus-Cantu Virus Antibody to Viral Capsid Antigen, IgG 17.9 U/mL or less.......Not Detected 18.0-21.9 U/mL..........Indeterminate - Repeat testing in 10-14 days may be helpful. 22.0 U/mL or greater....Detected Performed By: [facility] [address] [place] [address] Commercial Roof[employer] Estimator: Reji Mckeon MD, PhD CLIA Number: [id number] Blood BLOOD SPECIMEN / Unknown Venipuncture / Unknown 12/17/2023 4:41 AM CDT 12/17/2023 4:51 AM CDT German Damon MD LAB - CHEMISTRY NAZARIO GRANT [facility] Organization Address City/State/ZIP Co de Phone Number [facility]) [address] [place] [address] * (ABNORMAL) RENAL FUNCTION PANEL (12/17/2023 3:58 AM CDT) Only the most recent of2 resultswithin the time period is included. BUN 24 7 - 26 mg/dL 12/17/2023 4:39 AM [facility] Creatinine 1.64(H) 0.71 - 1.16 mg/dL 12/17/2023 4:39 AM [facility] Sodium 145 136 - 145 mmol/L 12/17/2023 4:39 AM [facility] Potassium 4.0 3.5 - 4.5 mmol/L 12/17/2023 4:39 AM [facility] Chloride 117(H) 98 - 107 mmol/L 12/17/2023 4:39 AM [facility] CO2 24 22 - 29 mmol/L 12/17/2023 4:39 AM [facility] Glucose 131(H) 70 - 115 mg/dL 12/17/2023 4:39 AM [facility] Albumin 2.2(L) 3.4 - 5.0 g/dL 12/17/2023 4:39 AM [facility] Calcium 9.1 8.4 - 10.2 mg/dL 12/17/2023 4:39 AM [facility] Phosphorus 2.2(L) 2.8 - 5.1 mg/dL 12/17/2023 4:39 AM [facility] Anion Gap 4(L) 6 - 16 12/17/2023 4:39 AM [facility] BUN/Creatinine Ratio 15 7 - 23 12/17/2023 4:39 AM [facility] Osmolality Calculated 306(H) 275 - 295 mOsm/kg 12/17/2023 4:39 AM [facility] eGFR by CKD-EPI 54(L) >=90 mL/min/1.7 3 m2 12/17/2023 4:39 AM [facility] Blood BLOOD SPECIMEN / Unknown Venipuncture / Unknown 12/17/2023 3:58 AM CDT 12/17/2023 4:08 AM CDT Polo Jimenez MD LAB - CHEMISTRY ORDERABLES [address] [address], [facility] [phone] * (ABNORMAL) VANCOMYCIN LEVEL TROUGH (12/16/2023 11:47 PM CDT) Vancomycin Trough 8.4(L) 10.0 - 20.0 ug/mL 12/17/2023 12:15 AM T [facility] Blood BLOOD SPECIMEN / Unknown Venipuncture / Unknown 12/16/2023 11:47 PM CDT 12/16/2023 11:56 PM CDT Narrative [facility] - 12/17/2023 12:15 AM CDT See institution protocol. Polo Jimenez MD LAB - CHEMISTRY ORDERABLES [address] [address], [place] [phone] * (ABNORMAL) HEMOGLOBIN ELECTROPHORESIS (12/16/2023 9:42 PM CDT) Only the most recent of3 resultswithin the time period is included. Interpretation Hemoglobin Pattern Abnormal Pattern(A) Normal Pattern 12/17/2023 11:12 PM CDT [facility] Comment: Capillary hemoglobin (Hb) electrophoresis shows four Hb bands with electrophoretic mobilities corresponding to HbA, HbS, HbA2, and HbC. 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 These results were interpreted by the attending physician: Idalia Eckert MD Attending Physician - Transfusion Medicine and Clinical Pathology *The electrophoresis pattern and the interpretation have been reviewed and verified by the teaching physician. Hemoglobin A 78.7(L) 97.0 - 98.2 % 12/17/2023 11:12 PM CDT [facility] Hemoglobin A2 3.1(H) 1.8 - 3.0 % 12/17/2023 11:12 PM CDT [facility] Hemoglobin S Quantitative 9.5(H) Not Detected % 12/17/2023 11:12 PM CDT [facility] Hemoglobin C Quantitative 8.7(H) Not Detected % 12/17/2023 11:12 PM T [facility] Blood BLOOD SPECIMEN / Unknown Venipuncture / Unknown 12/16/2023 9:42 PM CDT 12/16/2023 9:58 PM CDT Polo Jimenez MD LAB - CHEMISTRY ORDERABLES [facility] [address] [place] [address], [facility] [phone] * (ABNORMAL) HEPATIC FUNCTION PANEL (12/16/2023 9:42 PM CDT) Only the most recent of5 resultswithin the time period is included. Protein Total 4.9(L) 6.0 - 8.3 g/dL 024 10:24 PM CDT [facility] Albumin 2.3(L) 3.4 - 5.0 g/dL 12/16/2023 10:24 PM CDT [facility] Bilirubin Total 3.4(H) 0.2 - 1.2 mg/dL 05/2023 10:24 PM [facility] Bilirubin Conjugated 1.8(H) 0.1 - 0.5 mg/dL 12/16/2023 10:24 PM [facility] Bilirubin Unconjugated 1.6 Unconjugated Bilirubin is a calculated value: Reference ranges have not been established. mg/dL 12/16/2023 10:24 PM T [facility] Alkaline Phosphatase 62 40 - 150 U/L 12/16/2023 10:24 PM [facility] ALT 825(H) 5 - 55 U/L 12/16/2023 10:24 PM [facility] AST 1,212(H) 5 - 34 U/L 12/16/2023 10:24 PM [facility] Albumin/Globuli n Ratio 0.9(L) 1.1 - 2.3 12/16/2023 10:24 PM T [facility] Blood BLOOD SPECIMEN / Unknown Venipuncture / Unknown 12/16/2023 9:42 PM CDT 12/16/2023 9:58 PM CDT Polo Jimenez MD LAB - CHEMISTRY ORDERABLES [facility] [address] [place] [address], [facility] [phone] * TRANSFUSE RED BLOOD CELL LEUKOREDUCED UNIT(S) (12/16/2023 8:49 PM CDT) Polo Jimenez MD NURSING - BLOOD PROD TRANSFUSION * TRANSFUSE RED BLOOD CELL LEUKOREDUCED UNIT(S) (12/16/2023 8:37 PM CDT) Polo Jimenez MD NURSING - BLOOD PROD TRANSFUSION * TRANSFUSE RED BLOOD CELL LEUKOREDUCED UNIT(S) (12/16/2023 8:30 PM CDT) Polo Jimenez MD NURSING - BLOOD PROD TRANSFUSION * TRANSFUSE RED BLOOD CELL LEUKOREDUCED UNIT(S) (12/16/2023 8:15 PM CDT) Polo Jimenez MD NURSING - BLOOD PROD TRANSFUSION * TRANSFUSE RED BLOOD CELL LEUKOREDUCED UNIT(S) (12/16/2023 8:02 PM CDT) Polo Jimenez MD NURSING - BLOOD PROD TRANSFUSION * TRANSFUSE RED BLOOD CELL LEUKOREDUCED UNIT(S) (12/16/2023 7:50 PM CDT) Polo Jimenez MD NURSING - BLOOD PROD TRANSFUSION * TRANSFUSE RED BLOOD CELL LEUKOREDUCED UNIT(S) (12/16/2023 7:38 PM CDT) Polo Jimenez MD NURSING - BLOOD PROD TRANSFUSION * TRANSFUSE RED BLOOD CELL LEUKOREDUCED UNIT(S) (12/16/2023 7:23 PM CDT) Polo Jimenez MD NURSING - BLOOD PROD TRANSFUSION * TRANSFUSE CRYOPRECIPITATE UNIT(S) (12/16/2023 6:17 PM CDT) Polo Jimenez MD NURSING - BLOOD PROD TRANSFUSION * (ABNORMAL) CALCIUM IONIZED WHOLE BLOOD (12/16/2023 6:07 PM CDT) Only the most recent of2 resultswithin the time period is included. [facility] Calcium Ionized 1.36 mmol/L 12/16/2023 6:19 PM CDT [facility] pH 7.32(L) 7.35 - 7.45 pH 12/16/2023 6:19 PM CDT [facility] Ionized Calcium pH Adjusted 1.32 1.19 - 1.34 mmol/L 12/16/2023 6:19 PM CDT [facility] Blood BLOOD SPECIMEN / Unknown Venipuncture / Unknown 12/16/2023 6:07 PM CDT 12/16/2023 6:13 PM CDT Polo Jimenez MD LAB - CHEMISTRY ORDERABLES [facility] [address] [place] [address], [facility] [phone] * PREPARE CRYOPRECIPITATE UNIT (S), 5 Units (12/16/2023 5:18 PM CDT) Pathologist [facility] Unit Description Thawed Cryp Open [facility] B[facility]OD [facility] LAB Unit ABO A [facility] Unit Rh POS [facility] Product Number [id number] [facility] B LOOD BANK LAB Unit Donor # [id number] [facility] Unit Status transfused [facility] BLO OD BANK LAB Product Code [id number] [facility] BLO OD BANK LAB Blood Type Barcode 6200 [facility] B[facility] LAB Expiration Date S BLOOD BANK LAB Blood Bank BLOOD SPECIMEN / Unknown 12/16/2023 1:58 AM CDT Polo Jimenez MD LAB - BLOOD BAN K ORDERABLES [facility] LAB [address] [place] [address], [place] [phone] * MRSA DNA PCR (12/16/2023 4:37 PM CDT) [facility] MRSA DNA by PCR Not detected Not detected 12/16/2023 10:49 PM CDT [facility] Microbiology SPECIMEN FROM NASAL FOSSAE / Unknown Collection / Unknown 12/16/2023 4:37 PM CDT 12/16/2023 4:48 PM CDT Narrative [facility] - 12/16/2023 10:49 PM CDT Methicillin-resistant Staphylococcus aureus (MRSA) DNA is not detected (presumed not colonized with MRSA). Polo Jimenez MD LAB - MICROBIOL OGY ORDERABLES [facility] [address] [place] [address], [facility] [phone] * (ABNORMAL) TROPONIN-I HIGH SENSITIVE (12/16/2023 4:26 PM CDT) Only the most recent of4 resultswithin the time period is included. [facility] Troponin I High Sensitive 324(HH) <=35 ng/L 12/16/2023 5:09 PM CDT [facility] Blood BLOOD SPECIMEN / Unknown Venipuncture / Unknown 12/16/2023 4:26 PM CDT 12/16/2023 4:35 PM CDT Polo Jimenez MD LAB - CHEMISTRY ORDERABLES [facility] [address] [place] [address], [facility] [phone] * XR Chest 1Vw Portable (12/16/2023 2:34 PM CDT) Only the most recent of3 resultswithin the time period is included. Anatomical Region Laterality Modality Chest Radiographic Madalyn ging 12/16/2023 10:1 5 PM CDT Impressions 12/16/2023 10:16 PM CDT IMPRESSION: Unchanged right upper extremity peripherally inserted central catheter. Interval placement of a right internal jugular catheter in the superior vena cava. There is elevation of left hemidiaphragm and atelectasis or aspiration in the lower lungs. No pneumothorax. There are small bilateral pleural effusions. The cardiomediastinal silhouette is unchanged. > Interpreting Provider: Sameer Sears MD on 12/16/2023 10:16 PM Narrative 12/16/2023 10:16 PM CDT PROCEDURE: XR CHEST 1VW PORTABLE DATE/TIME OF EXAM: 12/16/2023 2:40 PM CLINICAL INFORMATION: None relevant/not provided if blank. Indication: D57.00: Sickle cell crisis (HCC) Additional History: COMPARISON: 12/15/2023. Procedure Note Sameer Sears MD - 12/16/2023 PROCEDURE: XR CHEST 1VW PORTABLE DATE/TIME OF EXAM: 12/16/2023 2:40 PM CLINICAL INFORMATION: None relevant/not provided if blank. Indication: D57.00: Sickle cell crisis (HCC) Additional History: COMPARISON: 12/15/2023. IMPRESSION: Unchanged right upper extremity peripherally inserted central catheter. Interval placement of a right internal jugular catheter in the superior vena cava. There is elevation of left hemidiaphragm and atelectasis or aspirationin the lower lungs. No pneumothorax. There are small bilateral pleural effusions. The cardiomediastinal silhouette is unchanged. > Interpreting Provider: Sameer Sears MD on 12/16/2023 10:16 PM German Damon MD DIAGNOSTIC IMAGING O RDERABLES * (ABNORMAL) RETIC COUNT (12/16/2023 1:10 PM CDT) Only the most recent of8 resultswithin the time period is included. [facility] Reticulocyte Percent 6.26(H) 0.50 - 2.40 % 12/16/2023 2:49 PM CDT [facility] Reticulocyte Absolute 0.1652(H) 0.0200 - 0.1100 x10E6/uL 12/16/2023 2:49 PM CDT [facility] Ret-HE 24.8(L) 29.0 - 37.9 pg 12/16/2023 2:49 PM CDT [facility] Immature Reticulocyte Fraction 3.2 1.8 - 15.2 % 12/16/2023 2:49 PM CDT [facility] Blood BLOOD SPECIMEN / Unknown Venipuncture / Unknown 12/16/2023 1:10 PM CDT 12/16/2023 1:29 PM CDT Polo Jimenez MD LAB - HEMATOLOG Y ORDERABLES [facility] [address] [place] [address], [facility] [phone] * EKG 12-LEAD (12/16/2023 10:37 AM CDT) Only the most recent of2 resultswithin the time period is included. [facility] Ventricular Rate 98 BPM SL MUSE Atrial Rate 98 BPM [facility] MUSE P-R Interval 158 ms [facility] MUSE QRS Duration ms 80 ms [facility] MUSE Q-T Interval ms 374 ms [facility] MUSE QTC Calculation (Bezet) 477 ms [facility] MUSE Calculated P [place] 39 degrees [facility] MUSE Calculated R [place] 24 degrees SL MUSE Calculated T [place] 11 degrees [facility] MUSE Interpretation EKG NORMAL SINUS RHYTHM NONSPECIFIC T WAVE ABNORMALITY PROLONGED QT ABNORMAL ECG WHEN COMPARED WITH ECG OF 15-DEC-2023 23:19 NO SIGNIFICANT CHANGE WAS FOUND Confirmed by FEMI UREÑA MD ([id number]) on 12/24/2023 5:49:11 PM [facility] MUSE 12/16/2023 10:3 7 AM CDT 12/24/2023 5:49 PM CDT Polo Jimenez MD ECG ORDERABLES Performing Organization Address City/[facility]/ZIP Co de Phone Number [facility] MUSE * (ABNORMAL) LACTIC ACID BLOOD REFLEX TO REPEAT (12/16/2023 10:08 AM CDT) Only the most recent of3 resultswithin the time period is included. [facility] Lactic Acid-Stat 2.4(H) <=2.0 mmol/L 12/16/2023 10:39 AM CDT [facility] Blood BLOOD SPECIMEN / Unknown Venipuncture / Unknown 12/16/2023 10:08 AM CDT 12/16/2023 10:17 AM CDT Polo Jimenez MD LAB - CHEMISTRY ORDERABLES Performing Organization Address [facility] Co de Phone Number [address] [address], [facility] [phone] * FOLATE (12/16/2023 7:02 AM CDT) [facility] Folate 18.3 7.0 - 31.4 ng/mL 12/16/2023 8:11 AM CDT [facility] Blood BLOOD SPECIMEN / Unknown Venipuncture / Unknown 12/16/2023 7:02 AM CDT 12/16/2023 7:12 AM CDT Polo Jimenez MD LAB - CHEMISTRY ORDERABLES Performing Organization Address [facility] Co de Phone Number [address] [address], [place] [phone] * (ABNORMAL) VITAMIN B12 (12/16/2023 7:02 AM CDT) [facility] Vitamin B12 >2,000(H) 213 - 816 pg/mL 12/16/2023 8:10 AM CDT [facility] Blood BLOOD SPECIMEN / Unknown Venipuncture / Unknown 12/16/2023 7:02 AM CDT 12/16/2023 7:12 AM CDT Polo Jimenez MD LAB - CHEMISTRY ORDERABLES [facility] [address] [place] [address], [facility] [phone] * TRANSFUSE RED BLOOD CELL LEUKOREDUCED UNIT(S) (12/16/2023 5:24 AM CDT) Polo Jimenez MD NURSING - BLOOD PROD TRANSFUSION * BLOOD TYPE VERIFICATION (12/16/2023 2:10 AM CDT) ABO Rh A POS 12/16/2023 2:5 9 AM CDT [facility] B[facility] LAB Blood Bank BLOOD SPECIMEN / Unknown 12/16/2023 2:10 AM CDT 12/16/2023 2:22 AM CDT Polo Jimenez MD LAB - BLOOD BAN K ORDERABLES Performing Organization Address City/[facility]/ZIP Co de Phone Number [facility] [address] [place] [address], [facility] [phone] * ACETAMINOPHEN LEVEL (12/16/2023 12:16 AM CDT) Acetaminophen <3.0 <3.0 ug/mL 12/16/2023 12:52 AM CDT [facility] Blood BLOOD SPECIMEN / Unknown Venipuncture / Unknown 12/16/2023 12:16 AM CDT 12/16/2023 12:20 AM CDT Narrative [facility] - 12/16/2023 12:52 AM CDT Acetaminophen Toxicity Levels (Hours Post Ingestion): >200 ug/mL at 4 hours >100 ug/mL at 8 hours >50 ug/mL at 12 hours For acute ingestion, please refer to Acetaminophen nomogram to determine the risk of toxicity based on time since ingestion and acetaminophen level (see link provided). Note the nomogram disclaimer. WARNING: Assessing the potential toxicity of an acetaminophen level on a standard risk nomogram must take into consideration many factors including any uncertainty of the time since ingestion or the possibility of other medications that may alter the peak level. Contact the [facility] at or reserved for healthcare professionals to assist you in evaluating potentially toxic acetaminophen levels. Polo Jimenez MD LAB - CHEMISTRY ORDERABLES Performing Organization Address City/[facility] Co de Phone Number [address] [address], [facility] [phone] * (ABNORMAL) HEMOGLOBIN S QUANTITATIVE (12/16/2023 12:09 AM CDT) Hemoglobin S Quantitation 49.6(H) None Detected % 12/17/2023 4:40 PM CDT [facility] Blood BLOOD SPECIMEN / Unknown Venipuncture / Unknown 12/16/2023 12:09 AM CDT 12/16/2023 12:17 AM CDT Polo Jimenez MD LAB - HEMATOLOG Y ORDERABLES Performing Organization Address [facility] Co de Phone Number [address] [address], [place] [phone] * CULTURE BLOOD (12/15/2023 11:52 PM CDT) Only the most recent of2 resultswithin the time period is included. Culture No growth day 5 LIANE 12/21/2023 5:01 AM CDT [facility] Blood PERIPHERAL BLOOD / Unknown Venipuncture / Unknown 12/15/2023 11:52 PM CDT 12/16/2023 12:15 AM CDT Polo Jimenez MD LAB - MICROBIOL OGY ORDERABLES Performing Organization Address City/[facility]/ZIP Co de Phone Number [facility] [address] [place] [address] [phone] * (ABNORMAL) B-TYPE NATRIURETIC PEPTIDE (12/15/2023 10:38 PM CDT) BNP 344(H) <100 pg/mL 12/15/2023 11:15 PM CDT [facility] Comment: A decision threshold of 100 pg/mL has been demonstrated to provide the maximal combination of sensitivity, specificity and predictive value for the diagnosis of congestive heart failure (CHF). Virtually all patients with no evidence of CHF have BNP values less than 100 pg/mL. A BNP value greater than 100 pg/mL is consistent with the diagnosis of CHF in the appropriate clinical setting. In a study of 693 patients (male and female) with diagnosed CHF, the following values were determined based on the NYHA functional classification system: NYHA Functional Class Mean Valule (pg/mL) % >100 pg/mL I 320 58.1 II 432 73.0 III 656 79.0 IV 1635 98.3 Blood BLOOD SPECIMEN / Unknown Venipuncture / Unknown 12/15/2023 10:38 PM CDT 12/15/2023 10:43 PM CDT Polo Jimenez MD LAB - CHEMISTRY ORDERABLES Performing Organization Address City/[facility]/ZIP Co de Phone Number [address] [address], [facility] [phone] * (ABNORMAL) C-REACTIVE PROTEIN (12/15/2023 10:30 PM CDT) Pathologist [facility] C-Reactive Protein 22.0(H) <=0.5 mg/dL 12/15/2023 11:06 PM CDT [facility] Blood BLOOD SPECIMEN / Unknown Venipuncture / Unknown 12/15/2023 10:30 PM CDT 12/15/2023 10:42 PM CDT Polo Jimenez MD LAB - CHEMISTRY ORDERABLES Performing Organization Address City/[facility]/ZIP Co de Phone Number [address] [address], [facility] [phone] * (ABNORMAL) CK BLOOD (12/15/2023 10:30 PM CDT) CK Total 338(H) 30 - 200 U/L 12/15/2023 11:10 PM CDT [facility] Blood BLOOD SPECIMEN / Unknown Venipuncture / Unknown 12/15/2023 10:30 PM CDT 12/15/2023 10:42 PM CDT Polo Jimenez MD LAB - CHEMISTRY ORDERABLES [address] [address], [facility] [phone] * (ABNORMAL) SLIDE SCAN HEMATOLOGY (01/30/2018 9:17 AM CDT) Only the most recent of5 resultswithin the time period is included. [facility] Anisocytosis 1+(A) None 01/30/2018 10:03 AM CDT [facility] Poikilocytosis 2+(A) None 01/30/2018 10:03 AM CDT [facility] Polychromasia Occasional (A) None 01/30/2018 10:03 AM CDT [facility] Elliptocytes Occasional (A) None 01/30/2018 10:03 AM CDT [facility] Schistocytes Occasional (A) None 01/30/2018 10:03 AM CDT [facility] Sickle Cells Occasional (A) None 01/30/2018 10:03 AM CDT [facility] Target Cells 3+(A) None 01/30/2018 10:03 AM CDT [facility] Blood BLOOD SPECIMEN / Unknown Venipuncture / Unknown 01/30/2018 9:17 AM CDT 01/30/2018 9:17 AM CDT Moi Martinez MD LAB - HEMATOLOGY ORD ERABLES [facility] [id number] [place] [address] * XR CHEST PA AND LATERAL (01/06/2018 9:50 AM CDT) Anatomical Region Laterality Modality Chest Radiographic Madalyn ging 01/06/2018 9:54 AM CDT Narrative 01/06/2018 9:56 AM CDT Exam: PA and lateral views of the chest. History: Pleurodynia Findings/Impression: Bibasilar linear opacities are noted representing atelectasis. No focal pneumonic consolidation, pleural effusion, or pneumothorax is identified. The cardiac silhouette and mediastinal contours are normal. Reading Radiologist: Jonah Dorantes MD on 01/06/2018 at 9:56 AM Procedure Note Jonah Dorantes MD - 01/06/2018 Exam: PA and lateral views of the chest. History: Pleurodynia Findings/Impression: Bibasilar linear opacities are noted representing atelectasis. No focal pneumonic consolidation, pleural effusion, or pneumothorax is identified. The cardiac silhouette and mediastinal contours are normal. Reading Radiologist: Jonah Dorantes MD on 01/06/2018 at 9:56 AM Farrukh Savage DO DIAGNOSTIC IMAGING O RDERABLES * OPIATES URINE CONFIRM RFLXED (06/25/2017 10:51 AM CDT) Only the most recent of2 resultswithin the time period is included. Opiates Negative Cutoff=30 0 ng/mL [facility] ([facility]) Comment: Opiate test includes Codeine, Morphine, Hydromorphone, Hydrocodone. Confirmation performed by Mass Spectrometry 06/25/2017 10:5 1 AM CDT 06/25/2017 Narrative [facility] ([facility]) - 07/02/2017 12:14 PM CDT Performed at: 01 - [facility] [address] [place], [place] [id number] Signaler: Farooq Yusuf MD, Phone: [phone] Maria C Foreman MD LAB - URINE CHEMISTR Y ORDERABLES [facility] ([facility]) [address] [place] [address], [facility] * DRUG ABUSE PANEL 10-20+ETHANOL URINE NO CONFIRM (06/25/2017 10:51 AM CDT) Only the most recent of3 resultswithin the time period is included. Amphetamines Screen Urine Negative Cutoff=1 000 ng/mL [facility] ([facility]) Comment:Amphetamine test inc ludes Amphetamine and Methamphetamine. Barbiturates Screen Negative Cutoff=2 00 ng/mL [facility] ([facility]) Benzodiazepine Screen Urine Negative Cutoff=2 00 ng/mL [facility] ([facility]) Cannabinoids Screen Urine Negative Cutoff=2 0 ng/mL [facility] ([facility]) Cocaine Metabolite Negative Cutoff=3 00 ng/mL [facility] ([facility]) Opiates See Final Results Cutoff=3 00 ng/mL [facility] ([facility]) Comment:Opiate test includes Codeine, Morphine, Hydromorphone, Hydrocodone. Oxycodone Urine Negative Cutoff=3 00 ng/mL [facility] ([facility]) Comment:Test includes Oxycod one and Oxymorphone Phencyclidine Urine Negative Cutoff=2 5 ng/mL [facility] ([facility]) Methadone Screen Urine See Final Results Cutoff=3 00 ng/mL [facility] ([facility]) Propoxyphene Negative Cutoff=3 00 ng/mL [facility] ([facility]) Meperidine Negative Cutoff=2 00 ng/mL [facility] ([facility]) Comment: This test was developed and its performance characteristics determined by [facility]. It has not been cleared or approved by the Food and Drug Administration. Ethanol Quantitative Urine Negative Cutoff=0 .020 % [facility] ([facility]) Creatinine Urine 115.9 20.0 - 300.0 mg/dL [facility] ([facility]) 06/25/2017 10:5 1 AM CDT 06/25/2017 Narrative [facility] ([facility]) - 07/02/2017 12:14 PM CDT Performed at: - [facility] [address] [place], [place] [id number] Signaler: Farooq Yusuf MD, Phone: [phone] Maria C Foreman MD LAB - URINE CHEMISTR Y ORDERABLES [facility] ([facility]) [address] [place] [address], [facility] * (ABNORMAL) PANEL [id number] (06/25/2017 10:51 AM CDT) Only the most recent of2 resultswithin the time period is included. Methadone Positive( A) Cutoff=30 0 [facility] ([facility]) Methadone GC/MS Confirmation 1160 Cutoff=10 0 ng/mL [facility] ([facility]) 06/25/2017 10:5 1 AM CDT 06/25/2017 Narrative [facility] ([facility]) - 07/02/2017 12:14 PM CDT Performed at: - [facility] [address] [place], [place] [id number] Signaler: Farooq Yusuf MD, Phone: [phone] Maria C Foreman MD LAB - CHEMISTRY NAZARIO GRANT Performing Organization Address City/[facility]/ZIP Co de Phone Number [facility] ([facility]) [address] [place] [address], [facility] * FERRITIN (06/25/2017 10:42 AM CDT) Only the most recent of2 resultswithin the time period is included. Ferritin 176 30 - 400 ng/mL [facility] ([facility]) Blood specimen (specimen) BLOOD SPECIMEN / Unknown 06/25/2017 10:42 AM CDT 06/25/2017 Narrative [facility] ([facility]) - 06/26/2017 5:13 AM CDT Performed at: [facility] [address] [id number] Signaler: Saeed Singleton PhD, Phone: [phone] Maria C Foreman MD LAB - CHEMISTRY NAZARIO GRANT Performing Organization Address City/[facility]/ZIP Co de Phone Number [facility] ([facility]) [address] [place] [address], [facility] * (ABNORMAL) VITAMIN D 25-HYDROXY (05/07/2017 11:10 AM ITALIAN LECTURER) Vitamin D, 25 Hydroxy 5.5(L) 30.0 - 100.0 ng/mL [facility] ([facility]) Comment: Vitamin D deficiency has been defined by the [place] of Medicine and an Endocrine Society practice guideline as a level of serum 25-OH vitamin D less than 20 ng/mL (1,2). The Endocrine Society went on to further define vitamin D insufficiency as a level between 21 and 29 ng/mL (2). 1. IOM ([place] of [employer]). 2010. Dietary reference intakes for calcium and D. [place]: The National Academies Press. 2. Olvin MF, Armando CHONG, Yesenia RUBY, et al. Evaluation, treatment, and prevention of vitamin D deficiency: an Endocrine Society clinical practice guideline. JCEM. 2010; 96(7):1911-30. Blood specimen (specimen) BLOOD SPECIMEN / Unknown 05/07/2017 11:10 AM ITALIAN LECTURER 05/07/2017 Narrative [facility] ([facility]) - 05/08/2017 6:13 AM ITALIAN LECTURER Performed at: [place] [id number] [place], [place] [id number] Signaler: Saeed Singleton PhD, Phone: [phone] Snoido Cid MD LAB - CHEMISTRY NAZARIO GRANT [facility] Organization Address City/State/ZIP Co de Phone Number [facility] ([facility]) [address] [place] [address], [facility] * (ABNORMAL) OXYCODONE URINE CONFIRMATION (03/12/2017 10:24 AM ITALIAN LECTURER) Oxycodone/Oxymo rphone Positive(A) Cutoff=30 0 [facility] ([facility]) Comment:Test includes Oxycod one and Oxymorphone Oxycodone Negative Cutoff=30 0 [facility] ([facility]) Oxymorphone Positive(A) [facility] ([facility]) Oxymorphone GC/MS 825 Cutoff=30 0 ng/mL [facility] ([facility]) 03/12/2017 10:2 4 AM ITALIAN LECTURER 03/12/2017 Narrative [facility] ([facility]) - 03/16/2017 7:10 AM ITALIAN LECTURER Performed at: [facility] [address] [place], [place] [id number] Signaler: Farooq Yusuf MD, Phone: [phone] Maria C Foreman MD LAB - URINE CHEMISTR Y ORDERABLES Performing Organization Address [facility]/ZIP Co de Phone Number [facility] ([facility]) [address] [place] [address], [place] * URINALYSIS REFLEX TO MICROSCOPIC NO CULTURE (03/12/2017 10:24 AM ITALIAN LECTURER) Specific [place] 1.010 1.005 - 1.030 [facility] pH Urine 6.5 5.0 - 7.5 [facility] Color UA Yellow Yellow [facility] Appearance Clear Clear [facility] Leukocyte Esterase Negative Negative [facility] Protein UA Negative Negative/Tra ce [facility] Glucose UA Negative Negative [facility] Ketone UA Negative Negative [facility] Blood UA Negative Negative [facility] Bilirubin Negative Negative [facility] Urobilinogen Semi-Qn 0.2 0.2 - 1.0 mg/dL [facility] Nitrite UA Negative Negative [facility] Microscopic Examination [facility] Comment:Microscopic follows if indicated. 03/12/2017 10:2 4 AM ITALIAN LECTURER 03/12/2017 Narrative [facility] - 03/12/2017 11:55 AM ITALIAN LECTURER Performed at: [address] [place] [id number] Signaler: Tonya Alexander MD, Phone: [phone] Maria C Foreman MD LAB - URINALYSIS ORD ERABLES [facility] [address] [place] [address]
--- OUTSIDE RECORDS SUMMARY | 2024-06-01 12:06 | XMS_ITS | Clinical Summary ---
Author Organization [facility] Address [address] [place] [address] Phone Care Team Providers Care Steam Plant Operator Name Role Phone Provider, None Primary Care Provider Unavailabl e Allergies Active Allergy Reactions Criticality Noted Date Comments Fish Allergy Hives 05/07/2015 Medications folic acid (FOLVITE) 1 MG Tablet Take 1 Tab by mouth daily. 30 Tab 8 Active oxyCODONE 10 MG TabletIndicatio ns:Sickle cell disease 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) Take 1 Tab by mouth every 4 hours as needed for Moderate or more severe pain. 90 Tab 8 Active Additional Information Patient not taking.Reported on 01/07/2018 oxyCODONE-Aceta minophen (PERCOCET) 10-325 MG Tablet Take 2 Tabs by mouth 2 times daily. 60 Tab 8 Active ibuprofen (MOTRIN) 800 MG Tablet Take 1 Tab by mouth every 8 hours. 270 Tab 3 8 Active Additional Information Patient not taking.Reported on 01/07/2018 hydroxyurea (HYDREA) 500 MG CapsuleIndicati ons:Hb-SS disease with crisis (HCC) Take 1 Cap by mouth daily. 60 Cap 2 8 Active HYDROcodone-sherry taminophen (NORCO) 10-325 MG Tablet Take 1 Tab by mouth daily. 30 Tab 8 Active WARFARIN SODIUM PO Take 12 mg by mouth. Active METHADONE HCL PO Take by mouth. 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 Sickle cell disease 11/16/2016 Encounters Date Type Department Care Team Description 03/11/2024 Telephone [facility] [address] [place] [address] Gen Koch, PMO BUSINESS ANALYST, BONBON CREAM WARMER from Last 3 Months Immunizations Immunization Administration Dates Next Due HIB Vaccine (PRP-T) 12/21/2023 Influenza Vaccine 01/31/2016,01/23/2016,01/28/20 15 Influenza Vaccine, Quadrivalent, PF 02/24/2020,0 01/01/2019,01/16/2018 Meningococcal Group B OMV 12/21/2023 Meningococcal MCV4O 12/21/2023 TDAP Vaccine 12/22/2023 Family History Medical History Relation Name Comments Asthma Brother Hypertension Maternal Grandmother Hypertension Mother Sickle Cell Anemia Other Asthma Sister Relation Name Status Comments Brother Maternal Grandmother Mother Other Sister Social History Tobacco Use Types Packs/Day Years Used Date Smoking Tobacco: Never Smokeless Tobacco: Never Alcohol Use Standard Drinks/Week Comments No 0 (1 standard drink = 0.6 oz pur e alcohol) Sex and Gender Information Value Date Recorded Sex Assigned at Not on file Legal Sex Male 7:12 PM CDT Gender Identity Not on file Sexual Orientation Not on file Occupation Industry Job Start Date Job End Date unemployed Not on file Not on file Not on file Last Filed Vital Signs Vital Sign Reading Time Taken Comments Blood Pressure 135/62 07/24/2020 9:15 PM CDT Pulse 90 07/24/2020 9:15 PM CDT Temperature 36.3 C (97.3 F) 07/24/2020 6:16 PM CDT Respiratory Rate 16 07/24/2020 9:15 PM CDT Oxygen Saturation 99% 07/24/2020 9:15 PM CDT Inhaled Oxygen Concentration - - Weight 99.8 kg (220 lb) 07/24/2020 6:17 PM CDT Height 177.8 cm (5' 10 ) 07/24/2020 6:17 PM CDT Body Mass Index 31.57 07/24/2020 6:17 PM CDT Plan of Treatment Health Maintenance Due Date Last Done Comments Hepatitis C Virus (HCV) Screening 1983 SARS-COV-2 Immunization (#1) 1988 Hepatitis B Immunization (1 of 3 - 19+ 3-dose series) 2002 Pneumococcal Immunization Combined (1 of 2 - PCV) 2002 Influenza Immunization (#1) 12/15/202302/13, 01/01/2019, 01/16/2018, Additional history exists Respiratory Syncytial Virus (RSV) Immunization (Adult) (1 - 1-dose 75+ series) 2058 Meningococcal Immunization (ACWY) Aged Out 12/21/2023 No longer eligible based on patient's age to complete this topic DTaP/Tdap/Td Immunization Discontinued 12/22/2023 TdaP Immunization Discontinued 12/22/2023 Rotavirus Immunization Aged Out No lo nger eligible based on patient's age to complete this topic Insurance MEDICAID [place] Advance Directives * Full Code (Latest Code Status on File) Date Activated Date Inactivated Comments 08/06/2016 2:40 AM 08/07/2016 4:10 PM CPR-Full Jamal atment: FULL ARREST: Attempt Resuscitation/CPR wit intubation and mechanical ventilation. PRE-ARREST: Use entire range of life support measures to stabilize the patient. Care Teams Steam Plant Operator Relationship Specialty Start Date End Date Provider, None [place] PCP - General 11/28/18
[2024-06-01] MEDS: OSELTAMIVIR PHOSPHATE 75 MG CAPSULE PO ×2 (12:56→21:00)
--- NOTE | 2024-06-01 13:03 | PC.NURSE ---
Pt. requesting additional pain medication. Pt. states can I have 2mg this time? [facility] Littlejohn notified of pt. request.
--- OUTSIDE RECORDS SUMMARY | 2024-06-01 13:11 | XMS_ITS | Clinical Summary ---
Author Organization [facility] Address [address] [place] [address] Care Team Providers Care Sustainability Officer Name Role Phone Unavailable Primary Care Provider [...] STL ABSTRACTION Provider, Abstract 05/18/2024 Orders Only [facility] - [address] [place] [phone] Jone Marks MD Other acute pulmonary embolism without acute cor pulmonale (CMS/HCC) 05/07/2024 Abstract [facility] - [address] [place] [address] Jone Marks MD 05/07/2024 Abstract [facility] - [address] [place] [address] Jone Marks MD 05/06/2024 External Device Data STL ABSTRACTION Provider, Abstract 05/06/2024 External Device Data STL ABSTRACTION Provider, Abstract 05/05/2024 Refill [facility] - [address] [place] [address] Jone Marks MD 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 ([facility]/HCC) 04/20/2024 Orders Only [facility] - [address] [place] [address] Jone Marks MD Other acute pulmonary embolism without acute cor pulmonale ([facility]/HCC) 04/13/2024 Abstract [facility] - [address] [place] [address] Jone Marks MD 04/10/2024 Telephone [facility] - [address] [place] [address] Jone Marks MD Methadone Prior auth 03/31/2024 Refill [facility] - [address] [place] [address] Jone Marks MD 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 ([facility]/HCC) 03/23/2024 Orders Only [facility] - [address] [place] [address] Jone Marks MD Other acute pulmonary embolism without acute cor pulmonale ([facility]/HCC) 03/09/2024 Refill [facility] - [address] [place] [address] Jone Marks MD 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 ([facility]/HCC) 03/09/2024 Telephone [facility] - [address] [place] [address] Jone Marks MD Missed Call [...] cm (5' 10 ) 03/29/2021 12:09 PM INDEPENDENT TRADER Body Mass Index 32.14 03/29/2021 12:09 PM INDEPENDENT TRADER Plan of Treatment Upcoming Encounters Date Type Department Care Team (Late st Contact Info) Description 06/15/2024 Orders Only [facility] - [address] [place] [address] Jone Marks MD [address] [place] [address] Other acute pulmonary embolism without acute cor pulmonale (CMS/HCC) 07/20/2024 1:00 PM CDT Office Visit [facility] - [address] [place] [address] Jone Marks MD [address] [place] [address] Health Maintenance Due Date Last Done Comments [...]
--- OUTSIDE RECORDS SUMMARY | 2024-06-01 13:12 | XMS_ITS | Referral Summary ---
Author Organization [facility] Address [address] [place] [address] Care Team Providers Care Rubber Turner Name Role Phone Unavailable Primary Care Provider Unavailabl e Source Comments [facility],non-owned Affiliates and Associated Physician Practices is amultiple site organization consisting of ambulatory clinics and hospital sitesin [place], [place], [place] and [place]. This disclosure is being madepursuant to the Care Everywhere program and may not contain all information available regarding this patient. Last updated 18.[facility] [employer] Allergies Active Allergy Reactions Criticality Noted Date [...] care, and heating? Not very hard 12/15/2023 [facility] [place] of Occupat ional Health - Occupational Stress [...] place to sleep or slept in a fpc (including now)? No 12/15/2023 Sex and Gender [...] 7 - 26 mg/dL 12/26/2023 3:11 AM [facility] Creatinine 1.14 0.71 - 1.16 mg/dL 12/26/2023 3:11 AM [facility] Sodium 138 136 - 145 mmol/L 12/26/2023 3:11 AM [facility] Potassium 3.8 3.5 - 4.5 mmol/L 12/26/2023 3:11 AM [facility] Chloride 106 98 - 107 mmol/L 12/26/2023 3:11 AM [facility] CO2 24 22 - 29 mmol/L 12/26/2023 3:11 AM [facility] Glucose 107 70 - 115 mg/dL 12/26/2023 3:11 AM [facility] Calcium 9.2 8.4 - 10.2 mg/dL 12/26/2023 3:11 AM [facility] Protein Total 8.3 6.0 - 8.3 g/dL 12/26/2023 3:11 AM [facility] Albumin 2.7(L) 3.4 - 5.0 g/dL 12/26/2023 3:11 AM [facility] Bilirubin Total 0.6 0.2 - 1.2 mg/dL 12/26/2023 3:11 AM [facility] Alkaline Phosphatase 79 40 - 150 U/L 12/26/2023 3:11 AM [facility] ALT 52 5 - 55 U/L 12/26/2023 3:11 AM [facility] AST 24 5 - 34 U/L 12/26/2023 3:11 AM [facility] Anion Gap 8 6 - 16 12/26/2023 3:11 AM [facility] BUN/Creatinine Ratio 7 7 - 23 12/26/2023 3:11 AM [facility] Osmolality Calculated 285 275 - 295 mOsm/kg 12/26/2023 3:11 AM CDT [facility] Albumin/Globulin Ratio 0.5(L) 1.1 - 2.3 12/26/2023 3:11 AM CDT [facility] eGFR by CKD-EPI 83(L) >=90 mL/min/1.7 3 m2 12/26/2023 3:11 AM CDT [facility] Blood BLOOD SPECIMEN / Unknown Lab Venipuncture / Unknown 12/26/2023 1:54 AM CDT 12/26/2023 2:57 AM CDT Natalia Marks MD LAB - CHEMISTRY NAZARIO GRANT Performing Organization Address City/[facility]/ZIP Co de Phone Number [address] [address], [facility] [phone] * HEPATITIS C AB SCREEN RFLX NAAT QUANT (12/19/2023 5:04 AM CDT) Hepatitis C Antibody Non-react daniel Non-reac tive 12/19/2023 6:17 AM CDT [facility] Comment:Hepatitis C Antibody screen indicates no [...] Damon MD LAB - CHEMISTRY NAZARIO GRANT [address] [address], [place] [phone] * HIV-1 HIV-2 ANTIBODY + HIV P24 AG PANEL (12/19/2023 5:04 AM CDT) HIV Antigen/Antibod y 1 & 2 Non-reacti ve Non-react daniel 12/19/2023 6:17 AM CDT [facility] Comment:No Laboratory eviden ce of HIV infection. Blood BLOOD SPECIMEN / Unknown Venipuncture / Unknown 12/19/2023 5:04 AM CDT 12/19/2023 5:08 AM CDT German Damon MD LAB - CHEMISTRY NAZARIO GRANT Performing Organization Address City/[facility]/ZIP Co de Phone Number [facility] [address] [place] [address], [place] [phone] * (ABNORMAL) LIPID PROFILE (12/18/2023 3:46 AM CDT) [facility] Cholesterol Total 100 <200 mg/dL 12/18/2023 4:46 AM CDT [facility] HDL 7(L) >40 mg/dL 12/18/2023 4:46 AM T [facility] Comment: ATP III Classification of HDL Cholesterol: <40 mg/dL: Considered a major risk factor. >60 mg/dL: Considered a negative risk factor. LDL Calculated 54 <100 mg/dL 12/18/2023 4:46 AM T [facility] Comment: ATP III Classification of LDL Cholesterol: <100 mg/dL: Optimal 100 - 129 mg/dL: Near Optimal/Above Optimal 130 - 159 mg/dL: Borderline High 160 - 189 mg/dL: High >190 mg/dL: Very High Triglycerides 195(H) <150 mg/dL 12/18/2023 4:46 AM T [facility] Comment: ATP III Classification of Triglycerides: <150 mg/dL: Normal 150 - 199 mg/dL: Borderline High 200 - 400 mg/dL: High >500 mg/dL: Very High Blood BLOOD SPECIMEN / Unknown Venipuncture / Unknown 12/18/2023 3:46 AM CDT 12/18/2023 4:14 AM CDT German Damon MD LAB - CHEMISTRY NAZARIO GRANT [facility] [address] [place] [address], [place] [phone] from Last 3 Months or Most Recently Relevant to Health Maintenance Advance Directives * Full Code (Latest Code Status on File) Date Activated Date Inactivated Comments 12/15/2023 10:14 PM 12/29/2023 3:08 PM
--- OUTSIDE RECORDS SUMMARY | 2024-06-01 13:12 | XMS_ITS | Referral Summary ---
Author Organization [facility] Address [address] [place] [address] Care Team Providers Care Electric Motor Analyst Name Role Phone Jone Marks MD Primary Care Provider Encounters Date Type Department Care Team Description 04/27/2024 11:00 AM DIGITAL MEDIA REPRESENTATIVE - 04/27/2024 11:59 PM DIGITAL MEDIA REPRESENTATIVE Hospital Encounter [facility] [address] [place] [address] Chronic kidney disease, stage 2 (mild); Essential [...] on file Legal Sex Male 12:32 AM DIGITAL MEDIA REPRESENTATIVE Gender Identity Not on file Sexual Orientation [...] Read Routine (OP Routine) 04/27/2024 11:37 AM DIGITAL MEDIA REPRESENTATIVE Chronic kidney disease, stage 2 (mild) Essential (primary) hypertension from Last 3 Months Results * US Kidney Complete (04/27/2024 11:37 AM DIGITAL MEDIA REPRESENTATIVE) Anatomical Region Laterality Modality Kidney N/A Ultrasound 04/28/2024 9:47 AM DIGITAL MEDIA REPRESENTATIVE Narrative 04/28/2024 9:51 AM DIGITAL MEDIA REPRESENTATIVE EXAM DESCRIPTION: US KIDNEY COMPLETE REASON FOR [...] - Electronically signed by Raphael Suárez M.D. ELONORA: LEONORA Report ID: [id number] Reading Location: [id number] Procedure Note Laurent Suárez MD - 04/28/2024 [...] Raphael Suárez M.D. LEONORA: LEONORA Report ID: [id number] Reading Location: [id number] us Carlos Canseco MD IMG US PROCEDURES Final Resul t from Last 3 Months Insurance [facility] MEDICARE [facility] MEDIC[facility] Advance Directives For more information, please contact: [phone] * Full Code (Latest Code Status on [...] [facility] Care Agent Care Teams Electric Motor Analyst Relationship Specialty Start Date End Date Jone Marks MD [address] [phone] PCP - General 01/26/19
--- OUTSIDE RECORDS SUMMARY | 2024-06-01 13:12 | XMS_ITS | Clinical Summary ---
Author Organization [facility] Address [address] [place] [address] Phone Care Team Providers Care Scow Derrick Operator Name Role Phone Provider, None Primary [...] Description 03/11/2024 Telephone [facility] [address] [place] [address] Gen Koch, ANNEALING FURNACE TENDER, FOREST LANDSCAPE ECOLOGY PROFESSOR from Last 3 Months Immunizations Immunization Administration [...] measures to stabilize the patient. Care Teams Scow Derrick Operator Relationship Specialty Start Date End Date Provider, None [place] PCP - General 11/28/18
--- OUTSIDE RECORDS SUMMARY | 2024-06-01 13:12 | XMS_ITS | Clinical Summary ---
Author Organization [facility] Address [address] [place] [address] Care Team Providers Care Microchip Specialist Name Role Phone Jone Marks MD Primary Care Provider [phone] Allergies Active Allergy Reactions Criticality Noted Date [...] Department Care Team Description 04/27/2024 11:00 AM CRYPTOZOOLOGIST - 04/27/2024 11:59 PM CRYPTOZOOLOGIST Hospital Encounter [facility] [address] [place], [place] [id number] Chronic kidney disease, stage 2 (mild); Essential [...] on file Legal Sex Male 12:32 AM CRYPTOZOOLOGIST Gender Identity Not on file Sexual Orientation [...] Read Routine (OP Routine) 04/27/2024 11:37 AM CRYPTOZOOLOGIST Chronic kidney disease, stage 2 (mild) Essential (primary) hypertension from Last 3 Months Results * US Kidney Complete (04/27/2024 11:37 AM CRYPTOZOOLOGIST) Anatomical Region Laterality Modality Kidney N/A Ultrasound 04/28/2024 9:47 AM CRYPTOZOOLOGIST Narrative 04/28/2024 9:51 AM CRYPTOZOOLOGIST EXAM DESCRIPTION: US KIDNEY COMPLETE REASON FOR [...] Raphael Suárez M.D. LEONORA: LEONORA Report ID: [id number] Reading Location: [id number] Procedure Note Laurent Suárez MD - 04/28/2024 [...] Raphael Suárez M.D. LEONORA: LEONORA Report ID: [id number] Reading Location: [id number] Carlos Canseco MD IM US PROCEDURES Final Resul t from Last 3 Months Insurance [facility] Member Subscriber Plan / Payer (Ef fective 2019-Present) Name:Chang Craigdanielle Bart Relation to Subscriber:Self Name:Quan Downing Bart Payer ID:[id number] (NAIC) Group ID:Not on file Type:MEDICAID RISK OTHER Address: [address] [address] MEDICARE [facility] [place]WI MEDICARE Advance Directives For more information, please contact: [phone] * Full Code (Latest Code Status on [...] Agents on File Name Relationship Healthcare Agent [facility] p Communication Ya Lutherw Friend Health Care Agent Paulette Rios Mother Health Care Agent [id number] (Home) Care Teams Microchip Specialist Relationship Specialty Start Date End Date Jone Marks MD [address] [address] [facility] - General 01/26/19
--- OUTSIDE RECORDS SUMMARY | 2024-06-01 13:12 | XMS_ITS | Encounter Summary ---
Author Organization [facility] Address [address] [place] [address] Care Team Providers Care Linoleum Layer Helper Name Role Phone Unavailable Primary Care Provider Unavailabl e Encounter Details Date Type Department Care Team (Late st Contact Info) Description 08/21/2021 History & Physical [facility] Oncology and Hematology [facility] [address] [place] [address] Vonnie Portillo Social History Tobacco [...] (Late Contact Info) Description 06/15/2024 Orders Only [facility] Oncology and Hematology Chang [address] [place] [address] Jone Marks MD [address] [place] [address] Other acute pulmonary embolism without acute cor pulmonale (CMS/HCC) 07/20/2024 1:00 PM CDT Office Visit [facility] Oncology and Hematology [facility] [address] [place] [address] Jone Marks MD [address] [address] documented as of this encounter Visit Diagnoses Not on filedocumented in this encounter
--- OUTSIDE RECORDS SUMMARY | 2024-06-01 13:12 | XMS_ITS | Clinical Summary ---
Author Organization [facility] Facility Address [address] [place] [address] Care Team Providers Care Assisted Living Housekeeper Name Role Phone Unavailable Primary Care Provider [...] Department Care Team Description 04/14/2024 10:30 AM [facility] Office Visit [facility] [address] [facility] [address] [place] [address] Carlos Canseco MD Chronic kidney disease, stage 2 (mild) (Primary Dx); Sickle cell nephropathy (HCC); Hypertension 04/13/2024 Documentation Only [facility] JoannRasheeda Snow [facility] [address] [id number] Sury Patel MA from Last 3 Months [...] Comments Blood Pressure 120/72 04/14/2024 10:45 AM [facility] Pulse 80 04/14/2024 10:45 AM [facility] Temperature 36.7 C (98.1 F) 04/14/2024 10:45 AM [facility] Respiratory Rate - - Oxygen Saturation 97% 04/14/2024 10:45 AM [facility] Inhaled Oxygen Concentration - - Weight 104 kg (229 lb) 04/14/2024 10:45 AM [facility] Height 177.8 cm (5' 10 ) 04/14/2024 10:45 AM [facility] Body Mass Index 32.86 04/14/2024 10:45 AM [facility] Plan of Treatment Health Maintenance Due Date Last Done Comments Pneumococcal Vaccine: Pediat rics (0 to 5 Years) and At-Risk Patients (6 to 64 Years) (1 of 2 - PCV) 1989 Hepatitis B Vaccine (1 of 3 - 19+ 3-dose series) 2002 Influenza Vaccine (#1) 2023 0, 01/01/2019, 01/16/2018, Additional history exists Insurance MEDICARE
--- OUTSIDE RECORDS SUMMARY | 2024-06-01 13:12 | XMS_ITS | Clinical Summary ---
Author Organization [facility] Address [address] [facility] [place] [address] Care Team Providers Care Director Marketing Communications Name Role Phone Unavailable Primary Care Provider Unavailabl e Source Comments [facility],non-owned Affiliates and Associated Physician Practices is amultiple site organization consisting of ambulatory clinics and hospital sitesin [place], [place]. This disclosure is being madepursuant to the Care Everywhere program and may not contain all information available regarding this patient. Last updated 18.[facility] Allergies Active Allergy Reactions Criticality Noted Date [...] care, and heating? Not very hard 12/15/2023 [facility] Occupat ional Health - Occupational Stress [...] 7 - 26 mg/dL 12/26/2023 3:[address] [facility] Creatinine 1.14 0.71 - 1.16 mg/dL 12/26/2023 3:[address] [facility] Sodium 138 136 - 145 mmol/L 12/26/2023 3:[address] [facility] Potassium 3.8 3.5 - 4.5 mmol/L 12/26/2023 3:[address] [facility] Chloride 106 98 - 107 mmol/L 12/26/2023 3:[address] [facility] CO2 24 22 - 29 mmol/L 12/26/2023 3:[address] [facility] Glucose 107 70 - 115 mg/dL 12/26/2023 3:[address] [facility] Calcium 9.2 8.4 - 10.2 mg/dL 12/26/2023 3:11 AM [facility] Protein Total 8.3 6.0 - 8.3 g/dL 12/26/2023 3:11 AM [facility] Albumin 2.7(L) 3.4 - 5.0 g/dL 12/26/2023 3:11 AM [facility] Bilirubin Total 0.6 0.2 - 1.2 mg/dL 12/26/2023 3:11 AM [facility] Alkaline Phosphatase 79 40 - 150 U/L 12/26/2023 3:11 AM [facility] ALT 52 5 - 55 U/L 12/26/2023 3:11 AM [facility] AST 24 5 - 34 U/L 12/26/2023 3:11 AM [facility] Anion Gap 8 6 - 16 12/26/2023 3:11 AM [facility] BUN/Creatinine Ratio 7 7 - 23 12/26/2023 3:11 AM [facility] Osmolality Calculated 285 275 - 295 mOsm/kg 12/26/2023 3:11 AM [facility] Albumin/Globulin Ratio 0.5(L) 1.1 - 2.3 12/26/2023 3:11 AM [facility] eGFR by CKD-EPI 83(L) >=90 mL/min/1.7 3 m2 12/26/2023 3:11 AM [facility] Blood BLOOD SPECIMEN / Unknown Lab Venipuncture / Unknown 12/26/2023 1:54 AM CDT 12/26/2023 2:57 AM T Natalia Marks MD LAB - CHEMISTRY ORDDarrell GRANT [facility] Organization Address City/State/ZIP Co de Phone Number [facility] [address] [place] [address], [facility] [phone] * HEPATITIS C AB SCREEN RFLX NAAT QUANT (12/19/2023 5:04 AM CDT) Hepatitis C Antibody Non-react daniel Non-reac tive 12/19/2023 6:17 AM [facility] Comment:Hepatitis C Antibody screen indicates no serologic [...] - CHEMISTRY NAZARIO GRANT Performing Organization Address City/[facility]/ZIP Co de Phone Number [address] [address], [facility] [phone] * HIV-1 HIV-2 ANTIBODY + HIV P24 AG PANEL (12/19/2023 5:04 AM CDT) Pathologist [facility] HIV Antigen/Antibod y 1 & 2 Non-reacti ve Non-react daniel 12/19/2023 6:17 AM CDT [facility] Comment:No Laboratory eviden ce of HIV infection. Blood BLOOD SPECIMEN / Unknown Venipuncture / Unknown 12/19/2023 5:04 AM CDT 12/19/2023 5:08 AM CDT German Damon MD LAB - CHEMISTRY NAZARIO GRANT Performing Organization Address [facility] Co de Phone Number [address] [address], [facility] [phone] * (ABNORMAL) LIPID PROFILE (12/18/2023 3:46 AM [...] 195(H) <150 mg/dL 12/18/2023 4:46 AM CDT [facility] Comment: ATP III Classification of Triglycerides: <150 mg/dL: Normal 150 - 199 mg/dL: Borderline High 200 - 400 mg/dL: High >500 mg/dL: Very High Blood BLOOD SPECIMEN / Unknown Venipuncture / Unknown 12/18/2023 3:46 AM CDT 12/18/2023 4:14 AM CDT German Damon MD LAB - CHEMISTRY NAZARIO GRANT [facility] [address] [place] [address], [facility] [phone] from Last 3 Months or Most Recently Relevant to Health Maintenance Advance Directives * Full Code (Latest Code Status on File) Date Activated Date Inactivated Comments 12/15/2023 10:14 PM 12/29/2023 3:08 PM
--- OUTSIDE RECORDS SUMMARY | 2024-06-01 13:12 | XMS_ITS | Patient Health Summary ---
Author Organization [facility] Address [address] [place] [address] Care Team Providers Care Stoper Name Role Phone Unavailable Primary Care Provider Unavailabl e Note from [facility],non-owned Affiliates and Associated Physician Practices is amultiple site organization consisting of ambulatory clinics and hospital sitesin [place], [place], [place] and [place]. This disclosure is being madepursuant to the Care Everywhere program and may not contain all information available regarding this patient. Last updated 18.[facility] Allergies * Fish Allergy(Urticaria) -Medium Criticality Medications [...] care, and heating? Not very hard 12/15/2023 [facility] Blanch of Occupat ional Health - Occupational Stress [...] place to sleep or slept in a fdc (including now)? No 12/15/2023 Sex and Gender [...] * CYTOMEGALOVIRUS ANTIBODY IGM BLOOD(Performed 12/17/2023) * ZEUS-CATNU VIRUS ANTIBODY TO VCA IGM(Performed 12/17/2023) * [...] Hb-SS disease with crisis (HCC) * PANEL [id number](Performed 06/25/2017) * OPIATES URINE CONFIRM RFLXED(Performed 06/25/2017) [...] CBC W AUTO DIFFERENTIAL(Performed 04/09/2017) * PANEL [id number](Performed 2017) * DRUG ABUSE PANEL 10-20+ETHANOL URINE [...] TRANSFUSE CRYOPRECIPITATE UNIT(S) Results * (ABNORMAL) PT-INR [facility] (12/29/2023 2:43 AM CDT) Only the most recent of31 resultswithin the time period is included. [facility] PT 22.4(H) 12.1 - 14.8 Seconds 12/29/2023 3:40 AM [facility] INR 2.0 See Comment 12/29/2023 3:40 AM [facility] Comment:The suggested therap eutic range for standard coumadin (warfarin) therapy is an INR of 2.0-3.0. For high-risk patients (Mechanical Mitral Valve Prosthesis, etc.), the suggested prophylactic therapeutic range is an INR of 2.5-3.5. Blood BLOOD SPECIMEN / Unknown Lab Venipuncture / Unknown 12/29/2023 2:43 AM CDT 12/29/2023 3:18 AM CDT Natalia Marks MD LAB - COAGULATION OR DERABLES Performing Organization Address City/State/[facility] Co de Phone Number [facility] [address] [place] [id number] [phone] * (ABNORMAL) CBC W AUTO DIFFERENTIAL (12/26/2023 1:55 AM CDT) Only the most recent of40 resultswithin the time period is included. [facility] WBC 16.8(H) 4.0 - 10.7 x10E9/L 12/26/2023 2:42 AM [facility] RBC Count 2.81(L) 4.30 - 5.80 x10E12/L 12/26/2023 2:42 AM [facility] Hemoglobin 8.2(L) 13.3 - 17.5 g/dL 12/26/2023 2:42 AM [facility] Hematocrit 25.8(L) 38.7 - 51.1 % 12/26/2023 2:42 AM [facility] MCV 91.8 80.0 - 98.0 fL 12/26/2023 2:42 AM [facility] MCH 29.2 26.7 - 33.6 pg 12/26/2023 2:42 AM [facility] MCHC 31.8 31.7 - 36.3 g/dL 12/26/2023 2:42 AM [facility] RDW-CV 15.4(H) 11.3 - 14.8 % 12/26/2023 2:42 AM [facility] Platelet Count 793(H) 150 - 420 x10E9/L 12/26/2023 2:42 AM [facility] MPV 11.4 7.8 - 11.4 fL 12/26/2023 2:42 AM [facility] Neutrophil % 66.2 41.0 - 74.0 % 12/26/2023 2:42 AM [facility] Lymphocyte % 23.2 17.0 - 47.0 % 12/26/2023 2:42 AM [facility] Monocyte % 8.4 3.0 - 11.0 % 12/26/2023 2:42 AM [facility] Eosinophil % 1.2 0.0 - 7.0 % 12/26/2023 2:42 AM [facility] Basophil % 0.5 0.0 - 1.6 % 12/26/2023 2:42 AM [facility] Immature Granulocytes % 0.5 0.0 - 1.0 % 12/26/2023 2:42 AM [facility] Neutrophil Absolute 11.17(H) 1.60 - 7.50 x10E9/L 12/26/2023 2:42 AM [facility] Lymphocyte Absolute 3.90 1.00 - 4.40 x10E9/L 12/26/2023 2:42 AM [facility] Monocyte Absolute 1.41(H) 0.15 - 1.00 x10E9/L 12/26/2023 2:42 AM [facility] Eosinophil Absolute 0.20 0.00 - 0.60 x10E9/L 12/26/2023 2:42 AM [facility] Basophil Absolute 0.08 0.00 - 0.13 x10E9/L 12/26/2023 2:42 AM [facility] NRBC 0.8(H) <=0.0 /100 WBC 12/26/2023 2:42 AM [facility] Blood BLOOD SPECIMEN / Unknown Lab Venipuncture / Unknown 12/26/2023 1:55 AM CDT 12/26/2023 2:32 AM CDT Natalia Marks MD LAB - HEMATOLOGY ORD ERABLES [facility] [address] [place] [address], [facility] [phone] * (ABNORMAL) COMPREHENSIVE METABOLIC PANEL (12/26/2023 1:54 AM CDT) Only the most recent of33 resultswithin the time period is included. BUN 8 7 - 26 mg/dL 12/26/2023 3:11 AM [facility] Creatinine 1.14 0.71 - 1.16 mg/dL 12/26/2023 3:11 AM [facility] Sodium 138 136 - 145 mmol/L 12/26/2023 3:11 AM [facility] Potassium 3.8 3.5 - 4.5 mmol/L 12/26/2023 3:11 AM [facility] Chloride 106 98 - 107 mmol/L 12/26/2023 3:11 AM [facility] CO2 24 22 - 29 mmol/L 12/26/2023 3:11 AM [facility] Glucose 107 70 - 115 mg/dL 12/26/2023 3:11 AM [facility] Calcium 9.2 8.4 - 10.2 mg/dL 12/26/2023 3:11 AM [facility] Protein Total 8.3 6.0 - 8.3 g/dL 12/26/2023 3:11 AM [facility] Albumin 2.7(L) 3.4 - 5.0 g/dL 12/26/2023 3:11 AM [facility] Bilirubin Total 0.6 0.2 - 1.2 mg/dL 12/26/2023 3:11 AM [facility] Alkaline Phosphatase 79 40 - 150 U/L 12/26/2023 3:11 AM [facility] ALT 52 5 - 55 U/L 12/26/2023 3:11 AM [facility] AST 24 5 - 34 U/L 12/26/2023 3:11 AM [facility] Anion Gap 8 6 - 16 12/26/2023 3:11 AM [facility] BUN/Creatinine Ratio 7 7 - 23 12/26/2023 3:11 AM [facility] Osmolality Calculated 285 275 - 295 mOsm/kg 12/26/2023 3:11 AM [facility] Albumin/Globulin Ratio 0.5(L) 1.1 - 2.3 12/26/2023 3:11 AM [facility] eGFR by CKD-EPI 83(L) >=90 mL/min/1.7 3 m2 12/26/2023 3:11 AM [facility] Blood BLOOD SPECIMEN / Unknown Lab Venipuncture / Unknown 12/26/2023 1:54 AM CDT 12/26/2023 2:57 AM CDT Natalia Marks MD LAB - CHEMISTRY NAZARIO GRANT [address] [address], [facility] [phone] * PHOSPHORUS BLOOD (12/26/2023 1:54 AM CDT) Only the most recent of23 resultswithin the time period is included. Phosphorus 4.0 2.8 - 5.1 mg/dL 12/26/2023 3:11 AM [facility] Blood BLOOD SPECIMEN / Unknown Lab Venipuncture / Unknown 12/26/2023 1:54 AM CDT 12/26/2023 2:57 AM CDT Natalia Marks MD LAB - CHEMISTRY NAZARIO GRANT [address] [address], [facility] [phone] * MAGNESIUM BLOOD (12/26/2023 1:54 AM CDT) Only the most recent of25 resultswithin the time period is included. Magnesium 2.1 1.6 - 2.6 mg/dL 12/26/2023 3:11 AM CDT [facility] Blood BLOOD SPECIMEN / Unknown Lab Venipuncture / Unknown 12/26/2023 1:54 AM CDT 12/26/2023 2:57 AM CDT Natalia Marks MD LAB - CHEMISTRY NAZARIO GRANT [address] [address], [facility] [phone] * (ABNORMAL) GLUCOSE - POINT OF CARE (12/25/2023 10:30 PM CDT) Only the most recent of38 resultswithin the time period is included. [facility] Glucose WB/POC 117(H) 70 - 115 mg/dL 12/25/2023 11:10 PM CDT [facility] Specimen Type Cap Fingerstick 2023 11:10 PM CDT [facility] Blood BLOOD SPECIMEN / Unknown 12/25/2023 10:30 PM CDT 12/25/2023 11:10 PM CDT Arnaud Garrido MD LAB - POINT OF CARE ORDERABLES Performing Organization Address [facility]/ZIP Co de Phone Number [address] [address], [facility] [phone] * (ABNORMAL) PTT [facility] (12/25/2023 11:45 AM CDT) Only the most recent of23 resultswithin the time period is included. Pathologist [facility] APTT 39.9(H) 23.0 - 38.4 Seconds 12/25/2023 12:25 PM CDT [facility] Comment:Suggested therapeuti c range for full dose I.V. unfractionated heparin therapy for venous thromboembolism is 71 to 109 seconds. Blood BLOOD SPECIMEN / Unknown Lab Venipuncture / Unknown 12/25/2023 11:45 AM CDT 12/25/2023 11:58 AM CDT German Damon MD LAB - COAGULATION OR DERABLES Performing Organization Address City/[facility]/ZIP Co de Phone Number [address] [address], [facility] [phone] * URIC ACID BLOOD (12/25/2023 11:45 AM CDT) Only the most recent of22 resultswithin the time period is included. Uric Acid 3.6 3.5 - 7.2 mg/dL 12/25/2023 12:31 PM CDT [facility] Blood BLOOD SPECIMEN / Unknown Lab Venipuncture / Unknown 12/25/2023 11:45 AM CDT 12/25/2023 12:06 PM CDT German Damon MD LAB - CHEMISTRY ORDE RABLES Performing Organization Address [facility]/ZIP Co de Phone Number [address] [address], [facility] [phone] * (ABNORMAL) D-DIMER (12/25/2023 11:45 AM CDT) Only the most recent of23 resultswithin the time period is included. Pathologist [facility] D-Dimer Quantitative 2.40(H) <=0.50 mcg/mL FEU 12/25/2023 12:26 PM CDT [facility] Comment: In the absence of clinical symptoms, [...] Damon MD LAB - COAGULATION OR DERABLES [address] [address], [facility] [phone] * (ABNORMAL) FIBRINOGEN ACTIVITY (12/25/2023 11:45 AM CDT) Only the most recent of23 resultswithin the time period is included. Fibrinogen Clauss 676(H) 200 - 400 mg/dL 12/25/2023 12:24 PM [facility] Blood BLOOD SPECIMEN / Unknown Lab Venipuncture / Unknown 12/25/2023 11:45 AM CDT 12/25/2023 11:58 AM CDT German Damon MD LAB - COAGULATION OR DERABLES [facility] [address] [place] [address], [facility] [phone] * (ABNORMAL) DIFFERENTIAL MANUAL (12/25/2023 11:45 AM CDT) Only the most recent of27 resultswithin the time period is included. Neutrophil % 84(H) 41 - 74 % 12/25/2023 12:41 PM [facility] Lymphocyte % 10(L) 17 - 47 % 12/25/2023 12:41 PM [facility] Monocyte % 5 3 - 11 % 12/25/2023 12:41 PM [facility] Eosinophil % 1 0 - 7 % 12/25/2023 12:41 PM [facility] Neutrophil Absolute 16.80(H) 1.60 - 7.50 x10E9/L 12/25/2023 12:41 PM [facility] Lymphocyte Absolute 2.00 1.00 - 4.40 x10E9/L 12/25/2023 12:41 PM [facility] Monocyte Absolute 1.00 0.15 - 1.00 x10E9/L 12/25/2023 12:41 PM [facility] Eosinophil Absolute 0.20 0.00 - 0.60 x10E9/L 12/25/2023 12:41 PM [facility] RBC Morphology REVIEWED 12/25/2023 12:41 PM [facility] Sydney Cells MODERATE(A) (none) 12/25/2023 12:41 PM CDT [facility] Schistocytes MODERATE(A) (none) 12/25/2023 12:41 PM CDT [facility] Stomatocytes MODERATE(A) (none) 12/25/2023 12:41 PM CDT [facility] Target Cells MODERATE(A) (none) 12/25/2023 12:41 PM CDT [facility] Blood BLOOD SPECIMEN / Unknown Lab Venipuncture / Unknown 12/25/2023 11:45 AM CDT 12/25/2023 12:06 PM CDT German Damon MD LAB - HEMATOLOGY ORD ERABLES [address] [address], [place] [phone] * (ABNORMAL) LDH BLOOD (12/25/2023 11:45 AM CDT) Only the most recent of24 resultswithin the time period is included. LDH Total 281(H) 125 - 243 Units/L 12/25/2023 12:31 PM CDT [facility] Blood BLOOD SPECIMEN / Unknown Lab Venipuncture / Unknown 12/25/2023 11:45 AM CDT 12/25/2023 12:06 PM CDT German Damon MD LAB - CHEMISTRY ORDE RABLOYDA [address] [address], [place] [phone] * HAPTOGLOBIN (12/25/2023 11:45 AM CDT) Only the most recent of24 resultswithin the time period is included. Haptoglobin 186 14 - 258 mg/dL 12/25/2023 12:31 PM CDT [facility] Blood BLOOD SPECIMEN / Unknown Lab Venipuncture / Unknown 12/25/2023 11:45 AM CDT 12/25/2023 11:58 AM CDT German Damon MD LAB - CHEMISTRY NAZARIO GRANT [facility] Organization Address City/State/ZIP Co de Phone Number [place] [id number] [place] [address], [facility] [phone] * ECHO PATRICK COMPLETE (12/24/2023 12:08 PM [...] 11:16 AM Patient Status: I/P Study Site: [facility] Primary Location: [facility] EStudy Info Exam Type: ECHO PATRICK COMPLETE Indications R78.81 - Gram-positive bacteremia D57.01 - Acute chest syndrome (HCC) * A 2D, 3D, color Doppler, spectral Doppler and M-Mode transesophageal echocardiogram was performed with a Bubble Study. * During the study the esophageal, transgastric, and descending thoracic views were captured. Staff Referring Physician: Kathy Uriostegui Ordering Provider: Kathy Uriostegui Attending Physician: Kathy Uriostegui Product Support Representative: Hua Wiley Complications * There were no [...] 11:16 AM Patient Status: I/P Study Site: [facility] Primary Location: [facility] EStudy Info Exam Type: ECHO PATRICK COMPLETE Indications R78.81 - Gram-positive bacteremia D57.01 - Acute chest syndrome (HCC) * A 2D, 3D, color Doppler, spectral Doppler and M-Mode transesophageal echocardiogram was performed with a Bubble Study. * During the study the esophageal, transgastric, and descendingthoracic views were captured. Staff Referring Physician: Kathy Uriostegui Ordering Provider: Kathy Uriostegui Attending Physician: Kathy Uriostegui Product Support Representative: Hua Wiley Complications * There were no [...] queried. Report dictated by Celestino Carvajal MD (radiology therapist) I, Darrell Roland MD have personally reviewed [...] queried. Report dictated by Celestino Carvajal MD (radiology therapist) I, Darrell Roland MD have personally reviewed and interpreted this examination/study. > Interpreting Provider: Darrell Roland MD on 12/22/2023 5:24 PM Kathy Uriostegui MD US ORDERABLES * (ABNORMAL) HGB HCT PANEL (12/19/2023 9:11 AM CDT) [facility] Hemoglobin 7.5(L) 13.3 - 17.5 g/dL 12/19/2023 9:47 AM CDT [facility] Hematocrit 21.5(L) 38.7 - 51.1 % 12/19/2023 9:47 AM CDT [facility] Blood BLOOD SPECIMEN / Unknown Venipuncture / Unknown 12/19/2023 9:11 AM CDT 12/19/2023 9:31 AM CDT German Damon MD LAB - HEMATOLOGY ORD ERABLES [address] [address], [facility] [phone] * TRANSFUSE RED BLOOD CELL LEUKOREDUCED UNIT(S) (12/19/2023 8:42 AM CDT) German Damon MD NURSING - BLOOD PROD TRANSFUSION * PREPARE (CROSSMATCH) RBC UNIT(S), 1 Units (12/19/2023 5:59 AM CDT) Only the most recent of4 resultswithin the time period is included. [facility] Unit Description AS1 LR PRBC [facility] BLOOD BANK LAB Unit ABO A [facility] BLOOD BANK LAB Unit Rh POS [facility] BLOOD BANK LAB Product Number R02 [facility] B LOOD BANK LAB Unit Donor # [id number] [facility] BLOOD BANK LAB Unit Status transfused [facility] BLO OD BANK LAB Product Code [id number] [facility] BLO OD BANK LAB Blood Type Barcode 6200 [facility] BLOOD BANK LAB Expiration Date S BLOOD BANK LAB Blood Bank BLOOD SPECIMEN / Unknown 12/16/2023 1:58 AM CDT German Damon MD LAB - BLOOD BANK ORD ERABLES Performing Organization Address City/[facility]/ZIP Co de Phone Number [facility] BLOOD BANK LAB [address] [place] [address], [facility] [phone] * TYPE + SCREEN PANEL (12/19/2023 5:22 AM CDT) Only the most recent of2 resultswithin the time period is included. Antibody Screen NEG 5:52 AM CDT [facility] BLOOD BANK LAB ABO Rh A POS 12/19/2023 5:52 AM CDT [facility] BLOOD BANK LAB Blood Bank BLOOD SPECIMEN / Unknown Venipuncture / Unknown 12/19/2023 5:22 AM CDT 12/19/2023 5:32 AM CDT German Damon MD LAB - BLOOD BANK ORD ERABLES Performing Organization Address City/[facility]/ZIP Co de Phone Number [facility] BLOOD BANK LAB [address] [place] [address], [facility] [phone] * TEG 6 GLOBAL HEMOSTASIS W/ LYSIS (12/19/2023 5:04 AM CDT) Only the most recent of2 resultswithin the time period is included. Citrated Kaolin R (Reaction Time) 6.2 4.6 - 9.1 min 12/19/2023 6:24 AM CDT [facility] Citrated Kaolin LY30 (Lysis) 0.7 0.0 - 2.6 % 12/19/2023 6:24 AM CDT [facility] Citrated Functional Fibrinogen MA (Max Amplitude) 26.1 15.0 - 32.0 mm 12/19/2023 6:24 AM CDT [facility] Citrated RapidTEG MA (Max Amplitude) 60.2 52.0 - 70.0 mm 12/19/2023 6:24 AM CDT [facility] Blood BLOOD SPECIMEN / Unknown Venipuncture / Unknown 12/19/2023 5:04 AM CDT 12/19/2023 5:11 AM CDT German Damon MD LAB - HEMATOLOGY KIRA JARAMILLO [address] [address], [place] [phone] * HEPATITIS C AB SCREEN RFLX NAAT QUANT (12/19/2023 5:04 AM CDT) Only the most recent of2 resultswithin the time period is included. Hepatitis C Antibody Non-react daniel Non-reac tive 12/19/2023 6:17 AM CDT [facility] Comment:Hepatitis C Antibody screen indicates no [...] - CHEMISTRY NAZARIO GRANT Performing Organization Address City/[facility]/ZIP Co de Phone Number [address] [address], [place] [phone] * HIV-1 HIV-2 ANTIBODY + HIV P24 AG PANEL (12/19/2023 5:04 AM CDT) HIV Antigen/Antibod y 1 & 2 Non-reacti ve Non-react daniel 12/19/2023 6:17 AM CDT [facility] Comment:No Laboratory eviden ce of HIV infection. Blood BLOOD SPECIMEN / Unknown Venipuncture / Unknown 12/19/2023 5:04 AM CDT 12/19/2023 5:08 AM CDT German Damon MD LAB - CHEMISTRY NAZARIO GRANT [address] [address], [place] [phone] * (ABNORMAL) STREP PNEUMONIAE ANTIGEN URINE (12/18/2023 9:42 PM CDT) Streptococcus pneumoniae Antigen Urine Positive( A) Negative 12/19/2023 7:14 AM CDT [facility] Urine URINE / Unknown Collection / Unknown 12/18/2023 9:42 PM CDT 12/18/2023 9:52 PM CDT Narrative [facility] - 12/19/2023 7:14 AM CDT Patients [...] - MICROBIOLOGY Zenia SILVERIO Performing Organization Address [facility] de Phone Number [facility] [address] [place] [address], [facility] [phone] * LEGIONELLA ANTIGEN URINE (12/18/2023 9:42 PM CDT) Legionella Antigen Urine Negative Negative 12/19/2023 7:18 AM CDT [facility] Urine URINE / Unknown Collection / Unknown 12/18/2023 9:42 PM CDT 12/18/2023 9:45 PM CDT Narrative [facility] - 12/19/2023 7:18 AM CDT This assay detects Legionella pneumophila serogroup one (1) antigen. A negative test result does not rule out the possibility of Legionella infection due to other serogroups or species of Legionella. A positive result may indicate a recent or remote infection with serogroup 1. German Damon MD LAB - MICROBIOLOGY O JEAN CLAUDE Performing Organization Address City/[facility] Co de Phone Number [facility] [address] [place] [address], [facility] [phone] * (ABNORMAL) URINE DRUG SCREEN IMMUNOASSAY (12/18/2023 9:42 PM CDT) Amphetamines Screen Urine Negative Negative : < 1000 ng/mL 12/18/2023 10:25 PM CDT [facility] Barbiturates Screen Urine Negative Negative : < 200 ng/mL 12/18/2023 10:25 PM [facility] Benzodiazepine Screen Urine Negative Negative : < 200 ng/mL 12/18/2023 10:25 PM CDT [facility] Opiates Urine Negative Negative : < 300 ng/mL 12/18/2023 10:25 PM [facility] Cocaine Metabolites Urine Negative Negative : < 300 ng/mL 12/18/2023 10:25 PM [facility] Phencyclidine Screen Urine Negative Negative : < 25 ng/ml 12/18/2023 10:25 PM [facility] Cannabinoids Screen Urine Negative Negative : <50 ng/mL 12/18/2023 10:25 PM T [facility] Methadone Screen Urine Positive(A) Negative : < 300 ng/mL 12/18/2023 10:25 PM [facility] Comment:Positive urine metha done screening results should be confirmed by another generally accepted non-immunological method such as gas chromatography or mass spectrometry. Fentanyl Screen Urine Negative Negative : <1.5 ng/mL 12/18/2023 10:25 PM [facility] Urine URINE / Unknown Collection / Unknown 12/18/2023 9:42 PM CDT 12/18/2023 9:45 PM CDT [facility] - 12/18/2023 10:25 PM CDT The Urine Toxicology Screening Panel does not screen for Propoxyphene, Meprobamate, Carisoprodol, Trazodone, lvqx-gjl-toyifoo medications and/or volatiles (Acetone, Isopropanol, Methanol or Ethylene Glycol). Ethanol, Salicylate, Acetaminophen, Tricyclic Antidepressants and several therapeutic drugs may be individually assayed in serum or plasma specimen. Toxicology testing by the [facility] is an aid to medical diagnosis and treatment of patients. No documented chain of custody was maintained. Results are intended to be used for clinical purposes only. German Damon MD LAB - URINE CHEMISTR Y ORDERABLES [facility] [address] [place] [address], [facility] [phone] * TRANSFUSE FRESH FROZEN PLASMA UNIT(S) (12/18/2023 6:44 PM CDT) German Damon MD NURSING - BLOOD PROD TRANSFUSION * (ABNORMAL) PROCALCITONIN LEVEL (12/18/2023 6:17 PM CDT) Only the most recent of2 resultswithin the time period is included. PROCALCITONIN 27.93(H) <=0.10 ng/mL 12/18/2023 7:43 PM CDT [facility] Blood BLOOD SPECIMEN / Unknown Venipuncture / Unknown 12/18/2023 6:17 PM CDT 12/18/2023 7:11 PM CDT Narrative [facility] - 12/18/2023 7:43 PM CDT The change [...] Change in Procalcitonin Calculator is available at [email or web address] If clinical picture has not improved and PCT remains high, reevaluate and consider treatment failure or other causes. German Damon MD LAB - CHEMISTRY ORDE RABLES Performing Organization Address City/[facility]/ZIP Co de Phone Number [facility] [address] [place] [address], [facility] [phone] * (ABNORMAL) BLOOD GASES CHAUNCEY + COOX PANEL (12/18/2023 6:[address] [facility]) pH Venous 7.40 7.32 - 7.42 pH 12/18/2023 6:46 PM [facility] pO2 Venous 33(L) 35 - 40 mmHg 12/18/2023 6:46 PM [facility] pCO2 Venous 42 40 - 50 mmHg 12/18/2023 6:46 PM [facility] HCO3 Venous 26.0 20 - 30 mmol/L 12/18/2023 6:46 PM [facility] Base Excess Venous 1.1 -2.0 - 2.0 mmol/L 12/18/2023 6:46 PM [facility] Oxyhemoglobin Venous 58.5 % 07/2023 6:46 PM [facility] Deoxyhemoglobin (HHB) Venous % 36.7 % 12/18/2023 6:46 PM [facility] Methemoglobin 1.2 0.0 - 2.0 % 12/18/2023 6:46 PM [facility] Carboxyhemoglobin 3.6(H) 0.0 - 2.0 % 2023 6:46 PM [facility] O2 Content Venous 5.9 Interpret within clinical context ml/dL 12/18/2023 6:46 PM [facility] Hemoglobin by COOX 7.1(L) 12.0 - 17.6 g/dL 12/18/2023 6:46 PM [facility] O2 Saturation Venous 61(L) >=70 % 07/2023 6:46 PM [facility] FI O2 Mixed Venous 21.0 % 2023 6:46 PM [facility] Blood BLOOD SPECIMEN / Unknown Venipuncture / Unknown 12/18/2023 6:17 PM T 12/18/2023 6:40 PM [facility] - 12/18/2023 6:[address] [facility] [place] Carboxyhemoglobin Normal Concentration: Non-smokers: 0-2%; Smokers: 0-9%; Toxic: >20% German Damon MD LAB - BLOOD GASES OR DERABLES [facility] [address] [place] [address], [facility] [phone] * CT Chest Wo Contrast (12/18/2023 5:59 [...] 4.Cholelithiasis > Dictated by Varun Carl MD (radiology therapist). I, Sameer Sears MD have personally reviewed and interpreted this examination/study. > Interpreting Provider: Sameer Sears MD on 12/19/2023 12:27 AM Narrative 12/19/2023 12:27 AM CDT PROCEDURE: CT CHEST WO CONTRAST, DATE/TIME OF EXAM: 12/18/2023 5:59 PM, LOCATION [facility] INDICATION: J96.01: Acute hypoxic respiratory failure (HCC) [...] DATE/TIME OF EXAM: 12/18/2023 5:59 PM, LOCATION [facility] INDICATION: J96.01: Acute hypoxic respiratory failure (HCC) [...] 4.Cholelithiasis > Dictated by Varun Carl MD (radiology therapist). I, Sameer Sears MD have personally reviewed and interpreted this examination/study. > Interpreting Provider: Sameer Sears MD on 12/19/2023 12:27 AM Geramn Damon MD CT ORDERABLES * TRANSFUSE FRESH FROZEN PLASMA UNIT(S) (12/18/2023 5:26 PM CDT) German Damon MD NURSING - BLOOD PROD TRANSFUSION * PREPARE FFP UNIT(S), 1 Units (12/18/2023 5:02 PM CDT) Only the most recent of2 resultswithin the time period is included. Pathologist [facility] Unit Description Thawed Plasma 5D [facility] BLOOD BANK LAB Unit ABO AB [facility] BLOOD [facility] Unit Rh POS [facility] BLOOD [facility] LAB Product Number [id number] [facility] B LOOD BANK LAB Unit Donor # [id number] [facility] BLOOD [facility] LAB Unit Status transfused [facility] BLO OD BANK LAB Product Code [id number] [facility] BLO OD BANK LAB Blood Type Barcode 8400 [facility] BLOOD BANK LAB Expiration Date S BLOOD BANK LAB Blood Bank BLOOD SPECIMEN / Unknown 12/16/2023 1:58 AM CDT German Damon MD LAB - BLOOD BANK ORD ERABLES [facility] BLOOD BANK LAB [address] [place] [address], [facility] [phone] * ECHO COMPLETE W CONTRAST (12/18/2023 4:24 [...] LV A2C EF 55.4 % [facility] I PACS LV A4C EF 60.23 % [facility] I PACS LV EDV A2C 146.628 ml [facility] FU JI PACS LV EDV A4C 170.088 ml [facility] FU JI PACS LV ESV A2C 65.396 ml [facility] FU JI PACS LV ESV A4C 67.644 ml [facility] FU JI PACS LVOT pk tarik 119.899 cm/s [facility] F U PACS LVOT VTI 17.988 cm [facility] I PACS RVIDd 4.038 cm [facility] I PACS RVOT diam Doppler 2.413 [facility] pk tarik 58.018 cm/s [facility] F U PACS RVOT VTI 12.29 cm [facility] I PACS LA size 4.297 cm [facility] I PACS RA area 21.671 cm [facility] AV mn grad 3.36 mmHg [facility] FU PACS AV pk tarik 124.946 cm/s [facility] I PACS AV VTI 21.093 cm [facility] I PACS MV A pk tarik 60.502 cm/s [facility] F U PACS MV E pk tarik 78.535 cm/s [facility] F U PACS MV E' lateral tarik 14.675 cm/[facility] mn grad 1.853 mmHg [facility] FU PACS MV VTI 20.082 cm [facility] I PACS PV pk tarik 60.705 cm/s [facility] I PACS PV VTI 13.163 cm [facility] I PACS TAPSE 2.631 cm [facility] I PACS Ascending aorta 3.098 cm [facility]C Diam Expiration 1.739 cm [facility] Myocardial strain charge 2 unitless [facility] Sinus of Valsalva 3.754 cm [facility] Anatomical Region Laterality Modality Ultrasound 12/18/2023 [...] 3:33 PM Patient Status: I/P Study Site: [facility] Primary Location: [facility] Info Exam Type: ECHO COMPLETE [...] Provider: German Damon Attending Physician: German Damon Product Support Representative: Rosi Johnson Left Ventricle Left ventricular systolic [...] 3:33 PM Patient Status: I/P Study Site: [facility] Primary Location: [facility] EStudy Info Exam Type: ECHO COMPLETE W [...] Provider: German Damon Attending Physician: German Damon Product Support Representative: Rosi Johnson Left Ventricle Left ventricular systolic [...] A ANTIBODY (12/18/2023 1:20 PM CDT) Pathologist [facility] Hepatitis A Virus Antibody Total Positive( A) Negative 12/20/2023 3:17 PM CDT [employer] ([facility]) Comment: The positive anti-HAV is consistent with recent or remote Hepatitis A infection or antibody response to HAV vaccination. False positive anti-HAV can occur. Performed By: [employer] [address] [place] [address] Winter Sports Manager: Reji Mckeon MD, PhD CLIA Number: [id number] Blood BLOOD SPECIMEN / Unknown Venipuncture / Unknown 12/18/2023 1:20 PM CDT 12/18/2023 1:26 PM CDT German Damon MD LAB - CHEMISTRY ORDDarrell GRANT [email or web address] ([facility]) [address] * HEPATITIS B PANEL (12/18/2023 11:39 AM CDT) Hepatitis B Virus Surface Antibody Non-reacti ve Non-react daniel 12/18/2023 5:28 PM CDT [facility] LABORATORY [facility] Comment: < 8 mIU/mL Hepatitis B surface Antibody (HBsAb). Nonreactive for HBsAb - individual is considered not immune to Hepatitis B Virus infection. Hepatitis B Virus Surface Antigen Non-reacti ve Non-react daniel 12/18/2023 5:28 PM CDT [facility] Hepatitis B Core Virus Antibody IgM Non-reacti ve Non-react daniel 12/18/2023 5:28 PM CDT [facility] Blood BLOOD SPECIMEN / Unknown Venipuncture / Unknown 12/18/2023 11:39 AM CDT 12/18/2023 11:47 AM CDT German Damon MD LAB - CHEMISTRY NAZARIO GRANT [facility] [address] [id number] [phone] * US Abdomen Limited (12/18/2023 7:58 AM [...] HIDA scan. Report dictated by Timo Altamirano MD(radiology therapist). IElbert MD have personally reviewed and interpreted this examination/study. > Interpreting Provider: Elbert Santo MD on 12/18/2023 9:24 AM Narrative 12/18/2023 9:24 AM CDT PROCEDURE: US ABDOMEN LIMITED, DATE/TIME OF EXAM: 12/18/2023 7:58 AM, LOCATION [facility] INDICATION: D57.00: Sickle cell crisis (HCC) ADDITIONAL [...] DATE/TIME OF EXAM: 12/18/2023 7:58 AM, LOCATION [facility] INDICATION: D57.00: Sickle cell crisis (HCC) ADDITIONAL [...] HIDA scan. Report dictated by Timo Altamirano MD(radiology therapist). I, Elbert Santo MD have personally reviewed and interpreted this examination/study. > Interpreting Provider: Elbert Santo MD on 12/18/2023 9:24 AM German Damon MD US ORDERABLES * (ABNORMAL) HEMOGLOBIN A1C (12/18/2023 3:46 AM CDT) [facility] Hemoglobin A1c 6.0(H) <=5.6 % 12/18/2023 10:23 AM CDT [facility] Estimated Average Glucose 126 mg/dL 12/18/2023 10:23 AM T [facility] LABOR[facility] Comment: HbA1c Interpretation: Normal : < 5.7% Pre-diabetes: 5.7-6.4% Diabetes: Equal to or greater than 6.5% Test results diagnostic of diabetes should be repeated for confirmation. Treatment target values recommended by ADA and other clinical organizations should be used to evaluate metabolic control in patients. Reference: [place] [employer], Standards of Care in Diabetes [...] Damon MD LAB - CHEMISTRY NAZARIO GRANT [facility] Organization Address City/State/ZIP Co de Phone Number [facility] [address] [place] [address], [facility] [phone] * (ABNORMAL) LIPID PROFILE (12/18/2023 3:46 AM CDT) Cholesterol Total 100 <200 mg/dL 12/18/2023 4:46 AM CDT [facility] HDL 7(L) >40 mg/dL 12/18/2023 4:46 AM T [facility] Comment: ATP III Classification of HDL Cholesterol: <40 mg/dL: Considered a major risk factor. >60 mg/dL: Considered a negative risk factor. LDL Calculated 54 <100 mg/dL 12/18/2023 4:46 AM T [facility] Comment: ATP III Classification of LDL Cholesterol: <100 mg/dL: Optimal 100 - 129 mg/dL: Near Optimal/Above Optimal 130 - 159 mg/dL: Borderline High 160 - 189 mg/dL: High >190 mg/dL: Very High Triglycerides 195(H) <150 mg/dL 12/18/2023 4:46 AM T [facility] Comment: ATP III Classification of Triglycerides: <150 mg/dL: Normal 150 - 199 mg/dL: Borderline High 200 - 400 mg/dL: High >500 mg/dL: Very High Blood BLOOD SPECIMEN / Unknown Venipuncture / Unknown 12/18/2023 3:46 AM CDT 12/18/2023 4:14 AM CDT German Damon MD LAB - CHEMISTRY NAZARIO GRANT [facility] Organization Address [facility]/State/ZIP Co de Phone Number [facility]ORATORY [address] [address], [facility] [phone] * DERMATOPATHOLOGY DIF ONLY ( Specimen Count = 1) (12/18/2023 12:00 AM CDT) Case Report Dermatopathol ogy Report Case: [id number] Authorizing Provider: Guanaco Arana MD Collected: 12/18/2023 12:00 AM Ordering Location: [facility] - Received: 12/18/2023 09:56 AM Dermatology Pathologist: Marcy Suarez MD Specimen: Skin, right dorsal forearm 4:49 PM CDT DERMATOPATHOLOGY LABORATORY Final Diagnosis Specimen A. SKIN, right dorsal forearm: 1+ PATCHY LINEAR BASEMENT MEMBRANE ZONE POSITIVITY WITH IgG AND C3 (L13.9) FOCAL INTRAEPIDERMA L IgA (see microscopic description and comment) (See direct immunofluores cence results [id number]) 4:49 PM CDT DERMATOPATHOLOGY LABORATORY Direct Immunofluorescence [...] non-specific staining. COMMENT: The clinical images in [facility], as well as the fixed tissue specimen ([id number]), are reviewed. Given the fixed tissue results, [...] determined by the Dermatopathol ogy Laboratory at [facility], directed by Dr. Dianna Arana. These tests need not be, and therefore are not, approved by the [place] Food and Drug Administratio n. The tests are used for clinical purposes. Billing Codes Specimen Charges Stain Charges 82947 51773 80137 81646 84576 37236 1 1 1 1 1 1 4 4:49 PM CDT DERMATOPATHOLOGY LABORATORY Embedded Images 4:49 PM CDT DERMATOPATHOLOGY LABORATORY Pathology/Cytolog y TISSUE SPECIMEN FROM SKIN / Unknown 12/18/2023 12/18/2023 9:56 AM CDT Guanaco Arana MD LAB - PATHOLOGY/CYTO LOGY ORDERABLES DERMATOPATHOLOGY LABORATORY [facility] Department of Dermatology [address], [address] [phone] * DERMATOPATHOLOGY (Specimen Count = 1) (12/18/2023 12:00 AM CDT) Case Report Dermatopathology Report Case: [id number] Authorizing Provider: Guanaco Arana MD Collected: 12/18/2023 12:00 AM Ordering Location: [facility] - Received: 12/18/2023 09:55 AM Dermatology Pathologist: Marcy Suarez MD Specimen: Skin, right dorsal forearm 4:49 PM CDT DERMATOPATHOLOGY LABORATORY Final Diagnosis Specimen A. 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 Dianna Arana. These tests need not be, and therefore are not, approved by the [place] Food and Drug Administration. The tests are used for clinical purposes. Billing Codes Specimen Charges Stain Charges 66686 1 87674 1 4 4:49 PM CDT DERMATOPATHOLOGY LABORATORY Embedded Images 4 4:49 PM CDT DERMATOPATHOLOGY LABORATORY Pathology/Cytolog y TISSUE SPECIMEN FROM SKIN / Unknown 12/18/2023 12/18/2023 9:55 AM CDT Guanaco Arana MD LAB - PATHOLOGY/CYTO LOGY ORDERABLES DERMATOPATHOLOGY LABORATORY [facility] - Department of Dermatology [address], [address] [phone] * LACTIC ACID BLOOD (12/17/2023 11:08 PM CDT) [facility] Lactic Acid-Stat 1.2 <=2.0 mmol/L 12/17/2023 11:36 PM CDT [facility] Blood BLOOD SPECIMEN / Unknown Venipuncture / Unknown 12/17/2023 11:08 PM CDT 12/17/2023 11:15 PM CDT German Damon MD LAB - CHEMISTRY NAZARIO GRANT [facility] [address] [place] [address], [facility] [phone] * VANCOMYCIN LEVEL RANDOM (12/17/2023 12:23 PM CDT) Only the most recent of4 resultswithin the time period is included. [facility] Vancomycin Random 11.4 Therapeutic Ranges not established for random specimens ug/mL 12/17/2023 1:06 PM CDT [facility] Blood BLOOD SPECIMEN / Unknown Venipuncture / Unknown 12/17/2023 12:23 PM CDT 12/17/2023 12:30 PM CDT Narrative [facility] - 12/17/2023 1:06 PM CDT See institution protocol. German Damon MD LAB - CHEMISTRY NAZARIO GRANT Performing Organization Address [facility]/ZIP Co de Phone Number [address] [address], [facility] [phone] * ZEUS-CANTU VIRUS ANTIBODY TO VCA IGM (12/17/2023 4:41 AM CDT) [facility] Zeus-Cantu Virus Antibody IgM Viral Capsid Antigen <10.0 0.0 - 43.9 U/mL 12/18/2023 9:16 PM CDT [facility] ([facility]) Comment: INTERPRETIVE INFORMATION: Zeus-Cantu Virus Antibody to Viral Capsid Antigen, IgM 35.9 U/mL or less.......Not Detected 36.0-43.9 U/mL..........Indeterminate - Repeat testing in 10-14 days may be helpful. 44.0 U/mL or greater....Detected Performed By: [employer] [address] [place] [address] Winter Sports Manager: Reji Mckeon MD, PhD CLIA Number: [id number] Blood BLOOD SPECIMEN / Unknown Venipuncture / Unknown 12/17/2023 4:41 AM CDT 12/17/2023 4:52 AM CDT German Damon MD LAB - SEROLOGY ORDER DENNIS Performing Organization Address [facility] Co de Phone Number [employer] ([facility]) [address] [place] [address], [facility] * CYTOMEGALOVIRUS ANTIBODY IGM BLOOD (12/17/2023 4:41 AM CDT) [facility] Cytomegalovirus Antibody IgM <30.0 0.0 - 29.9 AU/mL 12/18/2023 6:12 AM CDT [facility] ([facility]) Comment: Negative <30.0 Equivocal 30.0 - 34.9 Positive >34.9 A positive result is generally indicative of acute infection, reactivation or persistent IgM production. Blood BLOOD SPECIMEN / Unknown Venipuncture / Unknown 12/17/2023 4:41 AM CDT 12/17/2023 4:52 AM CDT Narrative [facility] ([facility]) - 12/18/2023 6:12 AM CDT Performed at: [address] [place] [address] [address] [place], [place] [id number] Yard Driver: Saeed Singleton PhD, Phone: [phone] German Damon MD LAB - CHEMISTRY ORDE RUDY Performing Organization Address City/[facility]/ZIP Co de Phone Number [facility] ([facility]) [address] [place] [address] * (ABNORMAL) CYTOMEGALOVIRUS ANTIBODY IGG BLOOD (12/17/2023 4:41 AM CDT) [facility] Cytomegalovirus Antibody IgG 6.90(H) <=0.70 U/mL 12/18/2023 10:42 PM CDT [employer] ([facility]) Comment: INTERPRETIVE INFORMATION: Cytomegalovirus Antibody, IgG [...] laboratory at the same time. Performed By: [employer] [address] [place] [address] Winter Sports Manager: Reji Mckeon MD, PhD CLIA Number: [id number] Blood BLOOD SPECIMEN / Unknown Venipuncture / Unknown 12/17/2023 4:41 AM CDT 12/17/2023 4:51 AM CDT German Damon MD LAB - CHEMISTRY NAZARIO GRANT [facility] Organization Address City/State/ZIP Co de Phone Number [facility] [employer] [facility]) [address] [place] [address], [facility] * PARVOVIRUS B19 ANTIBODY IGM (12/17/2023 4:41 AM CDT) Parvovirus B19 Antibody IgM 0.5 0.0 - 0.8 index 12/19/2023 3:09 PM CDT [facility] ([facility]) Comment: Negative <0.9 Equivocal 0.9 - 1.1 Positive >1.1 Blood BLOOD SPECIMEN / Unknown Venipuncture / Unknown 12/17/2023 4:41 AM CDT 12/17/2023 4:51 AM CDT Narrative [facility] ([facility]) - 12/19/2023 3:09 PM CDT Performed at: - [address] [id number] Yard Driver: Reena Cha MD, Phone: [phone] German Damon MD LAB - SEROLOGY ORDER DENNIS Performing Organization Address City/[facility]/ZIP Co de Phone Number [facility] ([facility]) [address] [place] [address] * (ABNORMAL) PARVOVIRUS B19 ANTIBODY IGG (12/17/2023 4:41 AM CDT) Parvovirus B19 Antibody IgG 0.97(H) <=0.90 IV 12/21/2023 1:56 AM CDT [facility] [employer] ([facility]) Comment: INTERPRETIVE INFORMATION: Parvovirus B19 Antibody, [...] laboratory at the same time. Performed By: [employer] [address] [place] [address] Winter Sports Manager: Reji Mckeon MD, PhD CLIA Number: [id number] Blood BLOOD SPECIMEN / Unknown Venipuncture / Unknown 12/17/2023 4:41 AM CDT 12/17/2023 4:52 AM CDT German Damon MD LAB - SEROLOGY ORDER DENNIS Performing Organization Address City/[facility]/ZIP Co de Phone Number [facility] [employer] ([facility]) [address] [place] [address] * (ABNORMAL) ZEUS-CANTU VIRUS ANTIBODY TO VCA IGG (12/17/2023 4:41 AM CDT) Zeus-Cantu Virus Antibody IgG Viral Capsid Antigen >750.0(H) 0.0 - 21.9 U/mL 12/18/2023 10:37 PM CDT [facility]) Comment: INTERPRETIVE INFORMATION: Zeus-Cantu Virus Antibody to Viral Capsid Antigen, IgG 17.9 U/mL or less.......Not Detected 18.0-21.9 U/mL..........Indeterminate - Repeat testing in 10-14 days may be helpful. 22.0 U/mL or greater....Detected Performed By: [facility] [address] [place] [address] Winter Sports Manager: Reji Mckeon MD, PhD CLIA Number: [id number] Blood BLOOD SPECIMEN / Unknown Venipuncture / Unknown 12/17/2023 4:41 AM CDT 12/17/2023 4:51 AM CDT German Damon MD LAB - CHEMISTRY NAZARIO GRANT [facility] Organization Address City/State/ZIP Co de Phone Number [facility]) [address] [place] [address] * (ABNORMAL) RENAL FUNCTION PANEL (12/17/2023 3:58 AM CDT) Only the most recent of2 resultswithin the time period is included. BUN 24 7 - 26 mg/dL 12/17/2023 4:39 AM [facility] Creatinine 1.64(H) 0.71 - 1.16 mg/dL 12/17/2023 4:39 AM [facility] Sodium 145 136 - 145 mmol/L 12/17/2023 4:39 AM [facility] Potassium 4.0 3.5 - 4.5 mmol/L 12/17/2023 4:39 AM [facility] Chloride 117(H) 98 - 107 mmol/L 12/17/2023 4:39 AM [facility] CO2 24 22 - 29 mmol/L 12/17/2023 4:39 AM [facility] Glucose 131(H) 70 - 115 mg/dL 12/17/2023 4:39 AM [facility] Albumin 2.2(L) 3.4 - 5.0 g/dL 12/17/2023 4:39 AM [facility] Calcium 9.1 8.4 - 10.2 mg/dL 12/17/2023 4:39 AM [facility] Phosphorus 2.2(L) 2.8 - 5.1 mg/dL 12/17/2023 4:39 AM [facility] Anion Gap 4(L) 6 - 16 12/17/2023 4:39 AM [facility] BUN/Creatinine Ratio 15 7 - 23 12/17/2023 4:39 AM [facility] Osmolality Calculated 306(H) 275 - 295 mOsm/kg 12/17/2023 4:39 AM [facility] eGFR by CKD-EPI 54(L) >=90 mL/min/1.7 3 m2 12/17/2023 4:39 AM [facility] Blood BLOOD SPECIMEN / Unknown Venipuncture / Unknown 12/17/2023 3:58 AM CDT 12/17/2023 4:08 AM CDT Polo Jimenez MD LAB - CHEMISTRY ORDERABLES [address] [address], [facility] [phone] * (ABNORMAL) VANCOMYCIN LEVEL TROUGH (12/16/2023 11:47 PM CDT) Vancomycin Trough 8.4(L) 10.0 - 20.0 ug/mL 12/17/2023 12:15 AM T [facility] Blood BLOOD SPECIMEN / Unknown Venipuncture / Unknown 12/16/2023 11:47 PM CDT 12/16/2023 11:56 PM CDT Narrative [facility] - 12/17/2023 12:15 AM CDT See institution protocol. Polo Jimenez MD LAB - CHEMISTRY ORDERABLES [address] [address], [place] [phone] * (ABNORMAL) HEMOGLOBIN ELECTROPHORESIS (12/16/2023 9:42 PM CDT) Only the most recent of3 resultswithin the time period is included. Interpretation Hemoglobin Pattern Abnormal Pattern(A) Normal Pattern 12/17/2023 11:12 PM CDT [facility] Comment: Capillary hemoglobin (Hb) electrophoresis shows four [...] 98.2 % 12/17/2023 11:12 PM CDT [facility] Hemoglobin A2 3.1(H) 1.8 - 3.0 % 12/17/2023 11:12 PM CDT [facility] Hemoglobin S Quantitative 9.5(H) Not Detected % 12/17/2023 11:12 PM CDT [facility] Hemoglobin C Quantitative 8.7(H) Not Detected % 12/17/2023 11:12 PM T [facility] Blood BLOOD SPECIMEN / Unknown Venipuncture / Unknown 12/16/2023 9:42 PM CDT 12/16/2023 9:58 PM CDT Polo Jimenez MD LAB - CHEMISTRY ORDERABLES [facility] [address] [place] [address], [facility] [phone] * (ABNORMAL) HEPATIC FUNCTION PANEL (12/16/2023 9:42 PM CDT) Only the most recent of5 resultswithin the time period is included. Protein Total 4.9(L) 6.0 - 8.3 g/dL 024 10:24 PM CDT [facility] Albumin 2.3(L) 3.4 - 5.0 g/dL 12/16/2023 10:24 PM CDT [facility] Bilirubin Total 3.4(H) 0.2 - 1.2 mg/dL 05/2023 10:24 PM [facility] Bilirubin Conjugated 1.8(H) 0.1 - 0.5 mg/dL 12/16/2023 10:24 PM [facility] Bilirubin Unconjugated 1.6 Unconjugated Bilirubin is a calculated value: Reference ranges have not been established. mg/dL 12/16/2023 10:24 PM T [facility] Alkaline Phosphatase 62 40 - 150 U/L 12/16/2023 10:24 PM [facility] ALT 825(H) 5 - 55 U/L 12/16/2023 10:24 PM [facility] AST 1,212(H) 5 - 34 U/L 12/16/2023 10:24 PM [facility] Albumin/Globuli n Ratio 0.9(L) 1.1 - 2.3 12/16/2023 10:24 PM T [facility] Blood BLOOD SPECIMEN / Unknown Venipuncture / Unknown 12/16/2023 9:42 PM CDT 12/16/2023 9:58 PM CDT Polo Jimenez MD LAB - CHEMISTRY ORDERABLES [facility] [address] [place] [address], [facility] [phone] * TRANSFUSE RED BLOOD CELL LEUKOREDUCED UNIT(S) [...] of2 resultswithin the time period is included. [facility] Calcium Ionized 1.36 mmol/L 12/16/2023 6:19 PM CDT [facility] pH 7.32(L) 7.35 - 7.45 pH 12/16/2023 6:19 PM CDT [facility] Ionized Calcium pH Adjusted 1.32 1.19 - 1.34 mmol/L 12/16/2023 6:19 PM CDT [facility] Blood BLOOD SPECIMEN / Unknown Venipuncture / Unknown 12/16/2023 6:07 PM CDT 12/16/2023 6:13 PM CDT Polo Jimenez MD LAB - CHEMISTRY ORDERABLES [facility] [address] [place] [address], [facility] [phone] * PREPARE CRYOPRECIPITATE UNIT (S), 5 Units (12/16/2023 5:18 PM CDT) Pathologist [facility] Unit Description Thawed Cryp Open [facility] BLOOD BANK LAB Unit ABO A [facility] BLOOD [facility]ANK LAB Unit Rh POS [facility] BLOOD BANK LAB Product Number [id number] [facility] Unit Donor # [id number] [facility] Unit Status transfused [facility] Product Code [id number] [facility] Blood Type Barcode 6200 [facility] Expiration Date S BLOOD BANK LAB Blood Bank BLOOD SPECIMEN / Unknown 12/16/2023 1:58 AM CDT Polo Jimenez MD LAB - BLOOD BAN K ORDERABLES [facility] [address] [place] [address], [place] [phone] * MRSA DNA PCR (12/16/2023 4:37 PM CDT) [facility] MRSA DNA by PCR Not detected Not detected 12/16/2023 10:49 PM CDT [facility] Microbiology SPECIMEN FROM NASAL FOSSAE / Unknown Collection / Unknown 12/16/2023 4:37 PM CDT 12/16/2023 4:48 PM CDT Narrative [facility] - 12/16/2023 10:49 PM CDT Methicillin-resistant Staphylococcus aureus (MRSA) DNA is not detected (presumed not colonized with MRSA). Polo Jimenez MD LAB - MICROBIOL OGY ORDERABLES [facility] MICROBIOLOGY [address] [place] [address], [facility] [phone] * (ABNORMAL) TROPONIN-I HIGH SENSITIVE (12/16/2023 4:26 PM CDT) Only the most recent of4 resultswithin the time period is included. [facility] Troponin I High Sensitive 324(HH) <=35 ng/L 12/16/2023 5:09 PM CDT [facility] Blood BLOOD SPECIMEN / Unknown Venipuncture / Unknown 12/16/2023 4:26 PM CDT 12/16/2023 4:35 PM CDT Polo Jimenez MD LAB - CHEMISTRY ORDERABLES [facility] [address] [place] [address], [facility] [phone] * XR Chest 1Vw Portable (12/16/2023 2:34 [...] of8 resultswithin the time period is included. [facility] Reticulocyte Percent 6.26(H) 0.50 - 2.40 % 12/16/2023 2:49 PM CDT [facility] Reticulocyte Absolute 0.1652(H) 0.0200 - 0.1100 x10E6/uL 12/16/2023 2:49 PM CDT [facility] Ret-HE 24.8(L) 29.0 - 37.9 pg 12/16/2023 2:49 PM CDT [facility] Immature Reticulocyte Fraction 3.2 1.8 - 15.2 % 12/16/2023 2:49 PM CDT [facility] Blood BLOOD SPECIMEN / Unknown Venipuncture / Unknown 12/16/2023 1:10 PM CDT 12/16/2023 1:29 PM CDT Polo Jimenez MD LAB - HEMATOLOG Y ORDERABLES [facility] [address] [place] [address], [facility] [phone] * EKG 12-LEAD (12/16/2023 10:37 AM CDT) Only the most recent of2 resultswithin the time period is included. [facility] Ventricular Rate 98 BPM [facility] MUSE Atrial Rate 98 BPM [facility] MUSE P-R Interval 158 ms [facility] MUSE QRS Duration ms 80 ms [facility] MUSE Q-T Interval ms 374 ms [facility] MUSE QTC Calculation (Bezet) 477 ms [facility] MUSE Calculated P [place] 39 degrees [facility] MUSE Calculated R [place] 24 degrees [facility] MUSE Calculated T [place] 11 degrees [facility] MUSE Interpretation EKG NORMAL SINUS RHYTHM NONSPECIFIC T WAVE ABNORMALITY PROLONGED QT ABNORMAL ECG WHEN COMPARED WITH ECG OF 15-DEC-2023 23:19 NO SIGNIFICANT CHANGE WAS FOUND Confirmed by FEMI UREÑA MD ([id number]) on 12/24/2023 5:49:11 PM [facility] MUSE 12/16/2023 10:3 7 AM CDT 12/24/2023 5:49 PM CDT Polo Jimenez MD ECG ORDERABLES Performing Organization Address City/[facility]/ZIP Co de Phone Number [facility] MUSE * (ABNORMAL) LACTIC ACID BLOOD REFLEX TO REPEAT (12/16/2023 10:08 AM CDT) Only the most recent of3 resultswithin the time period is included. [facility] Lactic Acid-Stat 2.4(H) <=2.0 mmol/L 12/16/2023 10:39 AM CDT [facility] Blood BLOOD SPECIMEN / Unknown Venipuncture / Unknown 12/16/2023 10:08 AM CDT 12/16/2023 10:17 AM CDT Polo Jimenez MD LAB - CHEMISTRY ORDERABLES Performing Organization Address [facility] Co de Phone Number [address] [address], [facility] [phone] * FOLATE (12/16/2023 7:02 AM CDT) [facility] Folate 18.3 7.0 - 31.4 ng/mL 12/16/2023 8:11 AM CDT [facility] Blood BLOOD SPECIMEN / Unknown Venipuncture / Unknown 12/16/2023 7:02 AM CDT 12/16/2023 7:12 AM CDT Polo Jimenez MD LAB - CHEMISTRY ORDERABLES Performing Organization Address [facility] Co de Phone Number [address] [address], [place] [phone] * (ABNORMAL) VITAMIN B12 (12/16/2023 7:02 AM CDT) [facility] Vitamin B12 >2,000(H) 213 - 816 pg/mL 12/16/2023 8:10 AM CDT [facility] Blood BLOOD SPECIMEN / Unknown Venipuncture / Unknown 12/16/2023 7:02 AM CDT 12/16/2023 7:12 AM CDT Polo Jimenez MD LAB - CHEMISTRY ORDERABLES [facility] [address] [place] [address], [facility] [phone] * TRANSFUSE RED BLOOD CELL LEUKOREDUCED UNIT(S) (12/16/2023 5:24 AM CDT) Polo Jimenez MD NURSING - BLOOD PROD TRANSFUSION * BLOOD TYPE VERIFICATION (12/16/2023 2:10 AM CDT) ABO Rh A POS 12/16/2023 2:5 9 AM CDT [facility] BLOOD BANK LAB Blood Bank BLOOD SPECIMEN / Unknown 12/16/2023 2:10 AM CDT 12/16/2023 2:22 AM CDT Polo Jimenez MD LAB - BLOOD BAN K ORDERABLES Performing Organization Address City/[facility]/ZIP Co de Phone Number [facility] BLOOD BANK LAB [address] [place] [address], [facility] [phone] * ACETAMINOPHEN LEVEL (12/16/2023 12:16 AM CDT) Acetaminophen <3.0 <3.0 ug/mL 12/16/2023 12:52 AM CDT [facility] Blood BLOOD SPECIMEN / Unknown Venipuncture / Unknown 12/16/2023 12:16 AM CDT 12/16/2023 12:20 AM CDT Narrative [facility] - 12/16/2023 12:52 AM CDT Acetaminophen [...] may alter the peak level. Contact the [facility] at or reserved for healthcare professionals to assist you in evaluating potentially toxic acetaminophen levels. Polo Jimenez MD LAB - CHEMISTRY ORDERABLES Performing Organization Address City/[facility] Co de Phone Number [address] [address], [facility] [phone] * (ABNORMAL) HEMOGLOBIN S QUANTITATIVE (12/16/2023 12:09 AM CDT) Hemoglobin S Quantitation 49.6(H) None Detected % 12/17/2023 4:40 PM CDT [facility] Blood BLOOD SPECIMEN / Unknown Venipuncture / Unknown 12/16/2023 12:09 AM CDT 12/16/2023 12:17 AM CDT Polo Jimenez MD LAB - HEMATOLOG Y ORDERABLES Performing Organization Address [facility] Co de Phone Number [address] [address], [place] [phone] * CULTURE BLOOD (12/15/2023 11:52 PM CDT) Only the most recent of2 resultswithin the time period is included. Culture No growth day 5 LIANE 12/21/2023 5:01 AM CDT [facility] MICROBIOLOGY Blood PERIPHERAL BLOOD / Unknown Venipuncture / Unknown 12/15/2023 11:52 PM CDT 12/16/2023 12:15 AM CDT Polo Jimenez MD LAB - MICROBIOL OGY ORDERABLES Performing Organization Address City/[facility]/ZIP Co de Phone Number [facility] MICROBIOLOGY [address] [place] [address] [phone] * (ABNORMAL) B-TYPE NATRIURETIC PEPTIDE (12/15/2023 10:38 PM CDT) BNP 344(H) <100 pg/mL 12/15/2023 11:15 PM CDT [facility] Comment: A decision threshold of 100 pg/mL [...] LAB - CHEMISTRY ORDERABLES Performing Organization Address City/[facility]/ZIP Co de Phone Number [address] [address], [facility] [phone] * (ABNORMAL) C-REACTIVE PROTEIN (12/15/2023 10:30 PM CDT) Pathologist [facility] C-Reactive Protein 22.0(H) <=0.5 mg/dL 12/15/2023 11:06 PM CDT [facility] Blood BLOOD SPECIMEN / Unknown Venipuncture / Unknown 12/15/2023 10:30 PM CDT 12/15/2023 10:42 PM CDT Polo Jimenez MD LAB - CHEMISTRY ORDERABLES Performing Organization Address City/[facility]/ZIP Co de Phone Number [address] [address], [facility] [phone] * (ABNORMAL) CK BLOOD (12/15/2023 10:30 PM CDT) CK Total 338(H) 30 - 200 U/L 12/15/2023 11:10 PM CDT [facility] Blood BLOOD SPECIMEN / Unknown Venipuncture / Unknown 12/15/2023 10:30 PM CDT 12/15/2023 10:42 PM CDT Ploo Jimenez MD LAB - CHEMISTRY ORDERABLES [address] [address], [facility] [phone] * (ABNORMAL) SLIDE SCAN HEMATOLOGY (01/30/2018 9:17 AM CDT) Only the most recent of5 resultswithin the time period is included. [facility] Anisocytosis 1+(A) None 01/30/2018 10:03 AM CDT [facility] Poikilocytosis 2+(A) None 01/30/2018 10:03 AM CDT [facility] Polychromasia Occasional (A) None 01/30/2018 10:03 AM CDT [facility] Elliptocytes Occasional (A) None 01/30/2018 10:03 AM CDT [facility] Schistocytes Occasional (A) None 01/30/2018 10:03 AM CDT [facility] Sickle Cells Occasional (A) None 01/30/2018 10:03 AM CDT [facility] Target Cells 3+(A) None 01/30/2018 10:03 AM CDT [facility] Blood BLOOD SPECIMEN / Unknown Venipuncture / Unknown 01/30/2018 9:17 AM CDT 01/30/2018 9:17 AM CDT Moi Martinez MD LAB - HEMATOLOGY ORD ERABLES [facility] [address] [place] [address] * XR CHEST PA AND LATERAL (01/06/2018 [...] included. Opiates Negative Cutoff=30 0 ng/mL [facility] ([facility]) Comment: Opiate test includes Codeine, Morphine, Hydromorphone, Hydrocodone. Confirmation performed by Mass Spectrometry 06/25/2017 10:5 1 AM CDT 06/25/2017 Narrative [facility] ([facility]) - 07/02/2017 12:14 PM CDT Performed at: 01 - [facility] [address] [place], [place] [id number] Yard Driver: Farooq Yusuf MD, Phone: [phone] Maria C Foreman MD LAB - URINE CHEMISTR Y ORDERABLES [facility] ([facility]) [address] [place] [address], [facility] * DRUG ABUSE PANEL 10-20+ETHANOL URINE NO CONFIRM (06/25/2017 10:51 AM CDT) Only the most recent of3 resultswithin the time period is included. Amphetamines Screen Urine Negative Cutoff=1 000 ng/mL [facility] ([facility]) Comment:Amphetamine test inc ludes Amphetamine and Methamphetamine. Barbiturates Screen Negative Cutoff=2 00 ng/mL [facility] ([facility]) Benzodiazepine Screen Urine Negative Cutoff=2 00 ng/mL [facility] ([facility]) Cannabinoids Screen Urine Negative Cutoff=2 0 ng/mL [facility] ([facility]) Cocaine Metabolite Negative Cutoff=3 00 ng/mL [facility] ([facility]) Opiates See Final Results Cutoff=3 00 ng/mL [facility] ([facility]) Comment:Opiate test includes Codeine, Morphine, Hydromorphone, Hydrocodone. Oxycodone Urine Negative Cutoff=3 00 ng/mL [facility] ([facility]) Comment:Test includes Oxycod one and Oxymorphone Phencyclidine Urine Negative Cutoff=2 5 ng/mL [facility] ([facility]) Methadone Screen Urine See Final Results Cutoff=3 00 ng/mL [facility] ([facility]) Propoxyphene Negative Cutoff=3 00 ng/mL [facility] ([facility]) Meperidine Negative Cutoff=2 00 ng/mL [facility] ([facility]) Comment: This test was developed and its performance characteristics determined by [facility]. It has not been cleared or approved by the Food and Drug Administration. Ethanol Quantitative Urine Negative Cutoff=0 .020 % [facility] ([facility]) Creatinine Urine 115.9 20.0 - 300.0 mg/dL [facility] ([facility]) 06/25/2017 10:5 1 AM CDT 06/25/2017 Narrative [facility] ([facility]) - 07/02/2017 12:14 PM CDT Performed at: - [facility] [address] [place], [place] [id number] Yard Driver: Farooq Yusuf MD, Phone: [phone] Maria C Foreman MD LAB - URINE CHEMISTR Y ORDERABLES [facility] ([facility]) [address] [place] [address], [facility] * (ABNORMAL) PANEL [id number] (06/25/2017 10:51 AM CDT) Only the most recent of2 resultswithin the time period is included. Methadone Positive( A) Cutoff=30 0 [facility] ([facility]) Methadone GC/MS Confirmation 1160 Cutoff=10 0 ng/mL [facility] ([facility]) 06/25/2017 10:5 1 AM CDT 06/25/2017 Narrative [facility] ([facility]) - 07/02/2017 12:14 PM CDT Performed at: - [facility] [address] [place], [place] [id number] Yard Driver: Farooq Yusuf MD, Phone: [phone] Maria C Foreman MD LAB - CHEMISTRY [place] [place] Performing Organization Address City/[facility]/ZIP Co de Phone Number [facility] ([facility]) [address] [place] [address], [facility] * FERRITIN (06/25/2017 10:42 AM CDT) Only the most recent of2 resultswithin the time period is included. Ferritin 176 30 - 400 ng/mL [facility] ([facility]) Blood specimen (specimen) BLOOD SPECIMEN / Unknown 06/25/2017 10:42 AM CDT 06/25/2017 Narrative [facility] ([facility]) - 06/26/2017 5:13 AM CDT Performed at: [facility] [address] [id number] Yard Driver: Saeed Singleton PhD, Phone: [phone] Maria C Foreman MD LAB - CHEMISTRY [place]IO GRANT Performing Organization Address City/[facility]/ZIP Co de Phone Number [facility] ([facility]) [address] [place] [address], [facility] * (ABNORMAL) VITAMIN D 25-HYDROXY (05/07/2017 11:10 AM DIRECTOR OF ENTERTAINMENT) Vitamin D, 25 Hydroxy 5.5(L) 30.0 - 100.0 ng/mL [facility] ([facility]) Comment: Vitamin D deficiency has been defined by the Blanch of Medicine and an Endocrine Society practice guideline as a level of serum 25-OH vitamin D less than 20 ng/mL (1,2). The Endocrine Society went on to further define vitamin D insufficiency as a level between 21 and 29 ng/mL (2). 1. IOM (Blanch of Medicine). 2010. Dietary reference intakes for calcium and D. [place]: The National Academies Press. 2. Olvin MF, Armando CHONG, Yesenia RUBY, et al. Evaluation, treatment, and prevention of vitamin D deficiency: an Endocrine Society clinical practice guideline. JCEM. 2010; 96(7):1911-30. Blood specimen (specimen) BLOOD SPECIMEN / Unknown 05/07/2017 11:10 AM DIRECTOR OF ENTERTAINMENT 05/07/2017 Narrative [facility] ([facility]) - 05/08/2017 6:13 AM DIRECTOR OF ENTERTAINMENT Performed at: [place] [id number] [place], [place] [id number] Yard Driver: Saeed Singleton PhD, Phone: [phone] Sonido Cid MD LAB - CHEMISTRY [facility] Organization Address City/State/ZIP Co de Phone Number [facility] ([facility]) [address] [place] [address], [facility] * (ABNORMAL) OXYCODONE URINE CONFIRMATION (03/12/2017 10:24 AM DIRECTOR OF ENTERTAINMENT) Oxycodone/Oxymo rphone Positive(A) Cutoff=30 0 [facility] ([facility]) Comment:Test includes Oxycod one and Oxymorphone Oxycodone Negative Cutoff=30 0 [facility] ([facility]) Oxymorphone Positive(A) [facility] ([facility]) Oxymorphone GC/MS 825 Cutoff=30 0 ng/mL [facility] ([facility]) 03/12/2017 10:2 4 AM DIRECTOR OF ENTERTAINMENT 03/12/2017 Narrative [facility] ([facility]) - 03/16/2017 7:10 AM DIRECTOR OF ENTERTAINMENT Performed at: [facility] [address] [place], [place] [id number] Yard Driver: Farooq Yusuf MD, Phone: [phone] Maria C Foreman MD LAB - URINE CHEMISTR Y ORDERABLES Performing Organization Address [facility]/ZIP Co de Phone Number [facility] ([facility]) [address] [place] [address], [place] * URINALYSIS REFLEX TO MICROSCOPIC NO CULTURE (03/12/2017 10:24 AM DIRECTOR OF ENTERTAINMENT) Specific [place] 1.010 1.005 - 1.030 [facility] pH [...] follows if indicated. 03/12/2017 10:2 4 AM DIRECTOR OF ENTERTAINMENT 03/12/2017 Narrative [facility] - 03/12/2017 11:55 AM DIRECTOR OF ENTERTAINMENT Performed at: [address] [place] [id number] Yard Driver: Tonya Alexander MD, Phone: [phone] Maria C Foreman MD LAB - URINALYSIS ORD ERABLES [facility] [address] [place] [address]
--- OUTSIDE RECORDS SUMMARY | 2024-06-01 13:12 | XMS_ITS | Encounter Summary ---
Author Organization [facility] Address [address] [place] [address] Care Team Providers Care Health Information Management Director Name Role Phone Unavailable Primary Care Provider Unavailabl e Reason for Visit * Reason Comments Med Refill Encounter Details Date Type Department Care Team (Late Contact Info) Description 04/13/2022 Refill [facility] Oncology and Hematology [facility] [address] [place] [address] Jone Marks MD [address] [place] [address] [employer] [address] [place] [phone] 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 ([facility]/HCC) Social History Tobacco Use Types Packs/Day Years [...] st Contact Info) Description 06/15/2024 Orders Only [facility] Oncology [facility] Hematology [facility] [address] [place] [address] [place] [address] [place] [address] [employer] [address] [place] [phone] Other acute pulmonary embolism without acute cor pulmonale ([facility]/HCC) 07/20/2024 1:00 PM CDT Office Visit [facility] Oncology and Hematology [facility] [address] [facility] [address] [place] [address] Jone Marks MD [address] [facility] [address] [place] [address] documented as of this encounter Visit Diagnoses Diagnosis 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
--- NOTE | 2024-06-01 13:20 | PM.IMHP ---
H&P: HPI History of Present Illness Date/Time: 06/01/24 13:20 Chief Complaint: Cough. 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 The patient provides the following history. He has not been feeling well for nearly a week with symptoms to include cough productive of yellow sputum, mild shortness of breath with pain on deep inspiration, subjective fever, generalized malaise, and decreased appetite. He has been taking [id number] cold and flu medication for his symptoms. Today he started to have pain throughout his ribs and chest similar to that he experiences with vaso-occlusive crisis any came in for evaluation. His son has had similar symptoms. He denies syncope, near syncope, exertional chest pain, vomiting, diarrhea, lower extremity edema, and calf pain. In the ED: He was afebrile on arrival stable vital signs and a SpO2 of 97% air. Labs were significant for WBC count of 33.7, hemoglobin 9.7, absolute retake 0.17, D-dimer 2.42, LDH 265, troponin less than 0.012. He tested positive for influenza A. Chest CTA showed a single pulmonary embolism in the anterior segmental pulmonary artery of the right upper lobe. He received enoxaparin 1 mg/kg and was started on Tamiflu and he is being admitted in this setting for further treatment. Review of Systems Review of Systems: 12 systems were reviewed and are negative except for as per HPI. [facility], LAT[facility] Past Medical History Medical History Chronic pain syndrome Secondary to sickle cell disease. Noncompliance History of noncompliance with anticoagulation and hydroxyurea. Deep venous thrombosis Chronic anticoagulation Due to history of DVT and pulmonary embolism. Acute chest syndrome Sickle cell disease, type SC Pulmonary embolism Chronic narcotic use On methadone with oxycodone for chronic pain related to sickle cell disease. Surgical History Surgical History History of hand surgery Tendon surgery on right 5th finger. Family History Family History Grandparent Diabetes mellitus Acute myocardial infarction Sibling Asthma Sibling Asthma Mother Hypertension Sickle cell trait Son Sickle cell trait Daughter Sickle cell trait Grandparent No problems noted. Other Diabetes mellitus Father Sickle cell trait Social History Social History Social History: The patient lives in [place] with his family. He is on disability due to sickle cell disease and chronic pain. He is a lifelong nonsmoker and denies alcohol and illicit substance abuse. He uses marijuana to help with pain, states this happens 1-2x per year. He designates Jolly Zuniga (mother) or Keyla Luther (friend) as his surrogate decision makers and he wishes to be a full code. Smoking status: Never smoker Second hand tobacco smoke exposure: No Additional smoking assessment comments: Smokes marijuana when pain meds unavailable. Alcohol intake: never Substance use: never Substance use type: marijuana Other substance usage details: For back when he doesn't have any pain meds available. Last use: 12/28/22 Do You Feel Safe in your Home?: Yes Lack of Transportation: No Lack of Food: Never True Current Housing: I Have Housing Concerned About Future Housing: No Difficulty Paying Gas/Electric Bills: No Difficulty Paying for Meds: No Currently Unemployed: No Education: High School Diploma/GED Difficulty w/ Childcare or Family Care: No Living arrangements: with family Occupation/Education: other Spiritual care concerns: No Agree to blood products: Yes Meds Home Medications and Allergies Home Medications ?Medication ?Instructions ?Recorded ?Confirmed ?Type folic acid 1 mg tablet 1 mg PO DAILY 02/16/19 12/15/23 History methadone 10 mg tablet 10 mg PO TID 08/22/20 12/15/23 History oxycodone-acetaminophen 10 mg-325 1 tablet PO BID PRN Pain, Moderate 08/22/20 12/15/23 History mg tablet hydroxyurea 500 mg capsule 500 mg PO QAM #30 caps 11/23/21 12/15/23 Rx ibuprofen 800 mg tablet 800 mg PO PRN 12/30/22 12/15/23 History warfarin 10 mg tablet 10 mg PO HS 06/22/23 12/15/23 History warfarin 2 mg tablet 4 mg DAILY 12/15/23 12/15/23 History Allergies Allergy/AdvReac Type Severity Reaction Status Date / Time Fish Containing Products Allergy Mild Itching Verified 06/01/24 09:54 Vital Signs Vital Signs - 24 hr 06/01/24 09:50 06/01/24 09:57 06/01/24 10:01 Temperature 98.3 F Pulse Rate 91 71 Respiratory Rate 20 18 Blood Pressure 105/64 125/80 Pulse Oximetry 97 97 96 Oxygen Delivery Room Air Room Air 06/01/24 12:59 Temperature Pulse Rate 96 Respiratory Rate 16 Blood Pressure 111/70 Pulse Oximetry 95 Oxygen Delivery Exam Narrative: General:?Moderately ill-appearing male sitting up in bed in no acute distress. Weight: 99.3 kg. BMI: 31.4. HEENT:?PERRL, EOMI. Sclera anicteric. Tacky mucous membranes. Neck:??Supple. No lymphadenopathy. Respiratory:?Lungs are clear to auscultation bilaterally. Cardiovascular:??Regular rate and rhythm with S1-S2. Gastrointestinal:??Abdomen is soft, nontender, and nondistended with positive bowel sounds. Skin:??Warm and dry.? No rash or lesions on limited exam. Extremities:??No cyanosis, clubbing, or edema. Radial and pedal pulses intact. No palpable knots or cords. Negative Mariama sign bilaterally. Neurological:??Alert.? Cranial nerves 2-12 are grossly intact. No gross focal deficits to casual conversation. Psychiatric:?Pleasant and cooperative with appropriate mood and affect. H&P: Results Labs Labs: Short CBC 06/01/24 Range/Units 10:42 WBC 33.7 H (4.5-10.0) K/mm3 Hgb 9.7 L (14.0-18.0) g/dL Hct 28.1 L (42.0-52.0) % Plt Count 348 D (150-375) k/mm3 [facility] 06/01/24 10:42 Sodium 144 Potassium 3.8 Chloride 107 Carbon Dioxide 25 BUN 8 L D Creatinine 0.80 Glucose 120 H Calcium 9.3 Cardiac Enzymes 06/01/24 Range/Units 10:42 Troponin I < 0.012 (0.000-0.034) ng/mL Liver Function 06/01/24 Range/Units 10:42 Total Bilirubin 1.3 (0.2-1.3) mg/dL AST 32 (17-59) U/L ALT 18 (6-50) U/L Alkaline Phosphatase 78 (38-126) U/L Albumin 4.3 (3.5-5.1) g/dL Impressions Chest X-Ray 06/01/24 10:23 Impression: 1. Discoid left basilar atelectasis or scarring, otherwise clear lungs. Chest CTA 06/01/24 12:12 IMPRESSION: 1. Single pulmonary embolism in the anterior segmental pulmonary artery of the right upper lobe. No evident right heart strain. 2. Moderate atelectasis in the bilateral lung bases. 3. 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 Constellation of findings would be most consistent with sequela of sickle cell disease. 4. Tiny gallstone. Assessment and Plan Assessment and plan (1) Pulmonary embolism: Code(s): I26.99 - Other pulmonary embolism without acute cor pulmonale Status: Chronic (2) Influenza A: Code(s): J10.1 - Influenza due to other identified influenza virus with other respiratory manifestations Status: Acute (3) Sickle-cell disease with vaso-occlusive pain: Code(s): D57.00 - Hb-SS disease with crisis, unspecified Status: Acute Plan The patient presented to the emergency department with complaints of cough and other symptoms as detailed in the HPI. Labs, imaging, EKG, and all reports were personally reviewed. He tested positive for influenza A and he has been started on Tamiflu. Chest CTA showed a single pulmonary embolism in the anterior segmental pulmonary artery of the right upper lobe without evidence of heart strain. He has been started on enoxaparin 1 milligram/kilogram b.i.d.. He was previously on warfarin however it was stopped last fall for reasons unknown to the patient. Ideally we would like to start the patient on a DOAC given history of frequent subtherapeutic INRs however this would need to be preauthorized by his insurance. His hemoglobin is stable on review of previous labs and will be monitored. Analgesics available as needed for vaso-occlusive pain crisis. WBC count is quite elevated but it has been above 20 the last several months. There is no evidence to suggest bacterial infection at this time although he had bacteremia last fall thus will obtain blood cultures. Vital signs are stable. His home medications will be reviewed and resumed as appropriate. Findings and treatment plan were discussed with the patient. Questions were solicited and answered to satisfaction. The patient's medical management will be taken over by the hospitalist team in a.m. Quality VTE Prophylaxis VTE prophylaxis: pharmacologic ordered (started on enoxaparin for PE) Hospitalist MIPS Advance Care Plan I have confirmed that the patient's Advanced Care Plan is present, code status is documented, or surrogate decision maker is listed in patient medical record.: Yes Medication Reconciliation I have utilized all available resources to obtain, update and review the patients current medications (includes all prescriptions, OTC, herbals, cannabis, and nutritional supplements).: Yes
--- NOTE | 2024-06-01 14:34 | PC.NURSE ---
Pharmacy called for lovenox to be tubed to ED.
[2024-06-01] MEDS: ENOXAPARIN 100 MG/ML SYRINGE SUB-Q (15:08)
--- NOTE | 2024-06-01 17:26 | PC.NURSE ---
Dietary called for non-select tray to be delivered to room 344.
--- NOTE | 2024-06-01 18:22 | ADMGEN ---
This patient, Quan Downing, was admitted to Medical Room 344-01. Patient/family oriented to hospital policies and general routines including ID bracelet, bed and alarms, visiting hours, pain management, procedures, bathroom and other care routines, personal items, smoking policy, room service/diet, and visiting hours. Information on how to activate the Rapid Response Team has been discussed. Patient/Family are encouraged to report perceived risks to care and to ask questions if they do not understand what they are told or what they should do.
--- OUTSIDE RECORDS SUMMARY | 2024-06-01 18:45 | XMS_ITS | Referral Summary ---
Author Organization [facility] Address [address] [place] [address] Care Team Providers Care Manager Of Quality Name Role Phone Jone Marks MD Primary Care Provider [phone] Encounters Date Type Department Care Team Description 04/27/2024 11:00 AM [employer] - 04/27/2024 11:59 PM [employer] Hospital Encounter [facility] [address] [place] [address] Chronic kidney disease, stage 2 (mild); Essential [...] on file Legal Sex Male 12:32 AM [employer] Gender Identity Not on file Sexual Orientation [...] Read Routine (OP Routine) 04/27/2024 11:37 AM [employer] Chronic kidney disease, stage 2 (mild) Essential (primary) hypertension from Last 3 Months Results * US Kidney Complete (04/27/2024 11:37 AM [employer]) Anatomical Region Laterality Modality Kidney N/A Ultrasound 04/28/2024 9:47 AM [employer] Narrative 04/28/2024 9:51 AM [employer] EXAM DESCRIPTION: US KIDNEY COMPLETE REASON FOR [...] Raphael Suárez M.D. LEONORA: LEONORA Report ID: [id number] Reading Location: [id number] Procedure Note Laurent Suárez MD - 04/28/2024 [...] Raphael Suárez M.D. LEONORA: LEONORA Report ID: [id number] Reading Location: [id number] us Carlos Canseco MD IMG US PROCEDURES Final Resul t from Last 3 Months Insurance [place] [address] [facility] Advance Directives For more information, please contact: [phone] * Full Code (Latest Code Status on [...] Rios Mother [facility] Care Agent Care Teams Manager Of Quality Relationship Specialty Start Date End Date Jone Marks MD [address] [id number] PCP - General 01/26/19
--- OUTSIDE RECORDS SUMMARY | 2024-06-01 18:45 | XMS_ITS | Clinical Summary ---
Author Organization [facility] [email or web address] Address [address] [place] [address] Care Team Providers Care Missileman Name Role Phone Unavailable Primary Care Provider Unavailabl e Source Comments [facility],non-owned Affiliates and Associated Physician Practices is amultiple site organization consisting of ambulatory clinics and hospital sitesin [place], [place], [place] and [place]. This disclosure is being madepursuant to the Care Everywhere program and may not contain all information available regarding this patient. Last updated 18.[facility] [email or web address] Allergies Active Allergy Reactions Criticality Noted Date [...] care, and heating? Not very hard 12/15/2023 [facility] - Occupational Stress [...] 7 - 26 mg/dL 12/26/2023 3:11 AM [facility] Creatinine 1.14 0.71 - 1.16 mg/dL 12/26/2023 3:11 AM [facility] Sodium 138 136 - 145 mmol/L 12/26/2023 3:11 AM [facility] Potassium 3.8 3.5 - 4.5 mmol/L 12/26/2023 3:11 AM [facility] Chloride 106 98 - 107 mmol/L 12/26/2023 3:11 AM [facility] CO2 24 22 - 29 mmol/L 12/26/2023 3:11 AM [facility] Glucose 107 70 - 115 mg/dL 12/26/2023 3:11 AM [facility] Calcium 9.2 8.4 - 10.2 mg/dL 12/26/2023 3:11 AM [facility] Protein Total 8.3 6.0 - 8.3 g/dL 12/26/2023 3:11 AM [facility] Albumin 2.7(L) 3.4 - 5.0 g/dL 12/26/2023 3:11 AM [facility] Bilirubin Total 0.6 0.2 - 1.2 mg/dL 12/26/2023 3:11 AM [facility] Alkaline Phosphatase 79 40 - 150 U/L 12/26/2023 3:11 AM [facility] ALT 52 5 - 55 U/L 12/26/2023 3:11 AM [facility] AST 24 5 - 34 U/L 12/26/2023 3:11 AM [facility] Anion Gap 8 6 - 16 12/26/2023 3:11 AM [facility] BUN/Creatinine Ratio 7 7 - 23 12/26/2023 3:11 AM [facility] Osmolality Calculated 285 275 - 295 mOsm/kg 12/26/2023 3:11 AM [facility] Albumin/Globulin Ratio 0.5(L) 1.1 - 2.3 12/26/2023 3:11 AM [facility] eGFR by CKD-EPI 83(L) >=90 mL/min/1.7 3 m2 12/26/2023 3:11 AM [facility] Blood BLOOD SPECIMEN / Unknown Lab Venipuncture / Unknown 12/26/2023 1:54 AM CDT 12/26/2023 2:57 AM T Natalia Marks MD LAB - CHEMISTRY ORDDarrell GRANT [facility] Organization Address City/State/ZIP Co de Phone Number [facility] [address] [place] [address], [facility] [phone] * HEPATITIS C AB SCREEN RFLX NAAT QUANT (12/19/2023 5:04 AM CDT) Hepatitis C Antibody Non-react daniel Non-reac tive 12/19/2023 6:17 AM [facility] Comment:Hepatitis C Antibody screen indicates no serologic [...] - CHEMISTRY NAZARIO GRANT Performing Organization Address City/[facility]/ZIP Co de Phone Number [address] [address], [facility] [phone] * HIV-1 HIV-2 ANTIBODY + HIV P24 AG PANEL (12/19/2023 5:04 AM CDT) Pathologist [facility] HIV Antigen/Antibod y 1 & 2 Non-reacti ve Non-react daniel 12/19/2023 6:17 AM CDT [facility] Comment:No Laboratory eviden ce of HIV infection. Blood BLOOD SPECIMEN / Unknown Venipuncture / Unknown 12/19/2023 5:04 AM CDT 12/19/2023 5:08 AM CDT German Damon MD LAB - CHEMISTRY NAZARIO GRANT Performing Organization Address [facility] Co de Phone Number [address] [address], [facility] [phone] * (ABNORMAL) LIPID PROFILE (12/18/2023 3:46 AM CDT) Cholesterol Total 100 <200 mg/dL 12/18/2023 4:46 AM CDT [facility] HDL 7(L) >40 mg/dL 12/18/2023 4:46 AM CDT [facility] Comment: ATP III Classification of HDL Cholesterol: <40 mg/dL: Considered a major risk factor. >60 mg/dL: Considered a negative risk factor. LDL Calculated 54 <100 mg/dL 12/18/2023 4:46 AM CDT [facility] Comment: ATP III Classification of LDL Cholesterol: <100 mg/dL: Optimal 100 - 129 mg/dL: Near Optimal/Above Optimal 130 - 159 mg/dL: Borderline High 160 - 189 mg/dL: High >190 mg/dL: Very High Triglycerides 195(H) <150 mg/dL 12/18/2023 4:46 AM CDT [facility] Comment: ATP III Classification of Triglycerides: <150 mg/dL: Normal 150 - 199 mg/dL: Borderline High 200 - 400 mg/dL: High >500 mg/dL: Very High Blood BLOOD SPECIMEN / Unknown Venipuncture / Unknown 12/18/2023 3:46 AM CDT 12/18/2023 4:14 AM CDT German Damon MD LAB - CHEMISTRY NAZARIO GRANT [facility] [address] [place] [address], [facility] [phone] from Last 3 Months or Most Recently Relevant to Health Maintenance Advance Directives * Full Code (Latest Code Status on File) Date Activated Date Inactivated Comments 12/15/2023 10:14 PM 12/29/2023 3:08 PM
--- OUTSIDE RECORDS SUMMARY | 2024-06-01 18:45 | XMS_ITS | Clinical Summary ---
Author Organization 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 Name Role Phone Unavailable Primary Care Provider [...] STL ABSTRACTION Provider, Abstract 05/18/2024 Orders Only [facility] [address] [place] [phone] Jone Marks MD Other acute pulmonary embolism without acute cor pulmonale (CMS/HCC) 05/07/2024 Abstract [facility] [address] [place] [address] Jone Marks MD 05/07/2024 Abstract [facility] [place] [address] [place] [address] Jone Marks MD 05/06/2024 External Device Data STL ABSTRACTION Provider, Abstract 05/06/2024 External Device Data STL ABSTRACTION Provider, Abstract 05/05/2024 Refill [facility] [address] [place] [address] Jone Marks MD 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/2024 Orders Only [facility] [address] [place] [address] Jone Marks MD Other acute pulmonary embolism without acute cor pulmonale ([facility]/HCC) 04/13/2024 Abstract [facility] [address] [place] [address] Jone Marks MD 04/10/2024 Telephone [facility] [address] [place] [id number] Jone Marks MD Methadone Prior auth 03/31/2024 Refill [facility] [address] [place] [address] Jone Marks MD 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) 03/23/2024 Orders Only [facility] [address] [place] [address] Jone Marks MD Other acute pulmonary embolism without acute cor pulmonale ([facility]/HCC) 03/09/2024 Refill [facility] [address] [place] [address] Jone Marks MD 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) 03/09/2024 Telephone [facility] [address] [place] [address] Jone Marks MD Missed Call [...] cm (5' 10 ) 03/29/2021 12:09 PM [employer] Body Mass Index 32.14 03/29/2021 12:09 PM [employer] MA[employer] Plan of Treatment Upcoming Encounters Date Type Department Care Team (Late st Contact Info) Description 06/15/2024 Orders Only [facility] [address] [place] [address] Jone Marks MD [address] [place] [address] Other acute pulmonary embolism without acute cor pulmonale (CMS/HCC) 07/20/2024 1:00 PM CDT Office Visit [facility] [address] [place] [address] Jone Marks MD [address] [place] [phone] Health Maintenance Due Date Last Done Comments [...]
--- OUTSIDE RECORDS SUMMARY | 2024-06-01 18:45 | XMS_ITS | Patient Health Summary ---
Author Organization [facility] Address [address] [place] [address] Care Team Providers Care Skin Care Technician Name Role Phone Unavailable Primary Care Provider Unavailabl e Note from [facility],non-owned Affiliates and Associated Physician Practices is amultiple site organization consisting of ambulatory clinics and hospital sitesin [place], [place], [place] and [place]. This disclosure is being madepursuant to the Care Everywhere program and may not contain all information available regarding this patient. Last updated 18.[facility] Allergies * Fish Allergy(Urticaria) -Medium [...] care, and heating? Not very hard 12/15/2023 [facility] Occupat ional Health - Occupational Stress [...] place to sleep or slept in a correction (including now)? No 12/15/2023 Sex and Gender [...] Hb-SS disease with crisis (HCC) * PANEL 144787(Performed 06/25/2017) * OPIATES URINE CONFIRM RFLXED(Performed 06/25/2017) [...] CBC W AUTO DIFFERENTIAL(Performed 04/09/2017) * PANEL [id number](Performed 2017) * DRUG ABUSE PANEL 10-20+ETHANOL URINE [...] TRANSFUSE CRYOPRECIPITATE UNIT(S) Results * (ABNORMAL) PT-INR [facility] (12/29/2023 2:43 AM CDT) Only the most recent of31 resultswithin the time period is included. [facility] PT 22.4(H) 12.1 - 14.8 Seconds 12/29/2023 3:40 AM [facility] INR 2.0 See Comment 12/29/2023 3:40 AM [facility] Comment:The suggested therap eutic range for standard coumadin (warfarin) therapy is an INR of 2.0-3.0. For high-risk patients (Mechanical Mitral Valve Prosthesis, etc.), the suggested prophylactic therapeutic range is an INR of 2.5-3.5. Blood BLOOD SPECIMEN / Unknown Lab Venipuncture / Unknown 12/29/2023 2:43 AM CDT 12/29/2023 3:18 AM CDT Natalia Marks MD LAB - COAGULATION OR DERABLES Performing Organization Address City/State/[facility] Co de Phone Number [facility] [address] [place] [phone] [phone] * (ABNORMAL) CBC W AUTO DIFFERENTIAL (12/26/2023 1:55 AM CDT) Only the most recent of40 resultswithin the time period is included. [facility] WBC 16.8(H) 4.0 - 10.7 x10E9/L 12/26/2023 2:42 AM [facility] RBC Count 2.81(L) 4.30 - 5.80 x10E12/L 12/26/2023 2:42 AM [facility] Hemoglobin 8.2(L) 13.3 - 17.5 g/dL 12/26/2023 2:42 AM [facility] Hematocrit 25.8(L) 38.7 - 51.1 % 12/26/2023 2:42 AM [facility] MCV 91.8 80.0 - 98.0 fL 12/26/2023 2:42 AM [facility] MCH 29.2 26.7 - 33.6 pg 12/26/2023 2:42 AM [facility] MCHC 31.8 31.7 - 36.3 g/dL 12/26/2023 2:42 AM [facility] RDW-CV 15.4(H) 11.3 - 14.8 % 12/26/2023 2:42 AM [facility] Platelet Count 793(H) 150 - 420 x10E9/L 12/26/2023 2:42 AM [facility] MPV 11.4 7.8 - 11.4 fL 12/26/2023 2:42 AM [facility] Neutrophil % 66.2 41.0 - 74.0 % 12/26/2023 2:42 AM [facility] Lymphocyte % 23.2 17.0 - 47.0 % 12/26/2023 2:42 AM [facility] Monocyte % 8.4 3.0 - 11.0 % 12/26/2023 2:42 AM [facility] Eosinophil % 1.2 0.0 - 7.0 % 12/26/2023 2:42 AM [facility] Basophil % 0.5 0.0 - 1.6 % 12/26/2023 2:42 AM [facility] Immature Granulocytes % 0.5 0.0 - 1.0 % 12/26/2023 2:42 AM [facility] Neutrophil Absolute 11.17(H) 1.60 - 7.50 x10E9/L 12/26/2023 2:42 AM [facility] Lymphocyte Absolute 3.90 1.00 - 4.40 x10E9/L 12/26/2023 2:42 AM [facility] Monocyte Absolute 1.41(H) 0.15 - 1.00 x10E9/L 12/26/2023 2:42 AM [facility] Eosinophil Absolute 0.20 0.00 - 0.60 x10E9/L 12/26/2023 2:42 AM [facility] Basophil Absolute 0.08 0.00 - 0.13 x10E9/L 12/26/2023 2:42 AM [facility] NRBC 0.8(H) <=0.0 /100 WBC 12/26/2023 2:42 AM [facility] Blood BLOOD SPECIMEN / Unknown Lab Venipuncture / Unknown 12/26/2023 1:55 AM CDT 12/26/2023 2:32 AM CDT Natalia Marks MD LAB - HEMATOLOGY ORD ERABLES [facility] [address] [place] [address], [facility] [phone] * (ABNORMAL) COMPREHENSIVE METABOLIC PANEL (12/26/2023 1:54 AM CDT) Only the most recent of33 resultswithin the time period is included. BUN 8 7 - 26 mg/dL 12/26/2023 3:11 AM [facility] Creatinine 1.14 0.71 - 1.16 mg/dL 12/26/2023 3:11 AM [facility] Sodium 138 136 - 145 mmol/L 12/26/2023 3:11 AM [facility] Potassium 3.8 3.5 - 4.5 mmol/L 12/26/2023 3:11 AM [facility] Chloride 106 98 - 107 mmol/L 12/26/2023 3:11 AM [facility] CO2 24 22 - 29 mmol/L 12/26/2023 3:11 AM [facility] Glucose 107 70 - 115 mg/dL 12/26/2023 3:11 AM [facility] Calcium 9.2 8.4 - 10.2 mg/dL 12/26/2023 3:11 AM [facility] Protein Total 8.3 6.0 - 8.3 g/dL 12/26/2023 3:11 AM [facility] Albumin 2.7(L) 3.4 - 5.0 g/dL 12/26/2023 3:11 AM [facility] Bilirubin Total 0.6 0.2 - 1.2 mg/dL 12/26/2023 3:11 AM [facility] Alkaline Phosphatase 79 40 - 150 U/L 12/26/2023 3:11 AM [facility] ALT 52 5 - 55 U/L 12/26/2023 3:11 AM [facility] AST 24 5 - 34 U/L 12/26/2023 3:11 AM [facility] Anion Gap 8 6 - 16 12/26/2023 3:11 AM [facility] BUN/Creatinine Ratio 7 7 - 23 12/26/2023 3:11 AM [facility] Osmolality Calculated 285 275 - 295 mOsm/kg 12/26/2023 3:11 AM [facility] Albumin/Globulin Ratio 0.5(L) 1.1 - 2.3 12/26/2023 3:11 AM [facility] eGFR by CKD-EPI 83(L) >=90 mL/min/1.7 3 m2 12/26/2023 3:11 AM [facility] Blood BLOOD SPECIMEN / Unknown Lab Venipuncture / Unknown 12/26/2023 1:54 AM CDT 12/26/2023 2:57 AM CDT Natalia Marks MD LAB - CHEMISTRY NAZARIO GRANT [address] [address], [facility] [phone] * PHOSPHORUS BLOOD (12/26/2023 1:54 AM CDT) Only the most recent of23 resultswithin the time period is included. Phosphorus 4.0 2.8 - 5.1 mg/dL 12/26/2023 3:11 AM [facility] Blood BLOOD SPECIMEN / Unknown Lab Venipuncture / Unknown 12/26/2023 1:54 AM CDT 12/26/2023 2:57 AM CDT Natalia Marks MD LAB - CHEMISTRY NAZARIO GRANT [address] [address], [facility] [phone] * MAGNESIUM BLOOD (12/26/2023 1:54 AM CDT) Only the most recent of25 resultswithin the time period is included. Magnesium 2.1 1.6 - 2.6 mg/dL 12/26/2023 3:11 AM CDT [facility] Blood BLOOD SPECIMEN / Unknown Lab Venipuncture / Unknown 12/26/2023 1:54 AM CDT 12/26/2023 2:57 AM CDT Natalia Marks MD LAB - CHEMISTRY NAZARIO GRANT [address] [address], [facility] [phone] * (ABNORMAL) GLUCOSE - POINT OF CARE (12/25/2023 10:30 PM CDT) Only the most recent of38 resultswithin the time period is included. [facility] Glucose WB/POC 117(H) 70 - 115 mg/dL 12/25/2023 11:10 PM CDT [facility] Specimen Type Cap Fingerstick 2023 11:10 PM CDT [facility] Blood BLOOD SPECIMEN / Unknown 12/25/2023 10:30 PM CDT 12/25/2023 11:10 PM CDT Arnaud Garrido MD LAB - POINT OF CARE ORDERABLES Performing Organization Address [facility]/ZIP Co de Phone Number [address] [address], [facility] [phone] * (ABNORMAL) PTT [facility] (12/25/2023 11:45 AM CDT) Only the most recent of23 resultswithin the time period is included. Pathologist [facility] APTT 39.9(H) 23.0 - 38.4 Seconds 12/25/2023 12:25 PM CDT [facility] Comment:Suggested therapeuti c range for full dose I.V. unfractionated heparin therapy for venous thromboembolism is 71 to 109 seconds. Blood BLOOD SPECIMEN / Unknown Lab Venipuncture / Unknown 12/25/2023 11:45 AM CDT 12/25/2023 11:58 AM CDT German Damon MD LAB - COAGULATION OR DERABLES Performing Organization Address City/[facility]/ZIP Co de Phone Number [address] [address], [facility] [phone] * URIC ACID BLOOD (12/25/2023 11:45 AM CDT) Only the most recent of22 resultswithin the time period is included. Uric Acid 3.6 3.5 - 7.2 mg/dL 12/25/2023 12:31 PM CDT [facility] Blood BLOOD SPECIMEN / Unknown Lab Venipuncture / Unknown 12/25/2023 11:45 AM CDT 12/25/2023 12:06 PM CDT German Damon MD LAB - CHEMISTRY ORDE RABLES Performing Organization Address [facility]/ZIP Co de Phone Number [address] [address], [facility] [phone] * (ABNORMAL) D-DIMER (12/25/2023 11:45 AM CDT) Only the most recent of23 resultswithin the time period is included. Pathologist [facility] D-Dimer Quantitative 2.40(H) <=0.50 mcg/mL FEU 12/25/2023 12:26 PM CDT [facility] Comment: In the absence of clinical [...] Damon MD LAB - COAGULATION OR DERABLES [address] [address], [facility] [phone] * (ABNORMAL) FIBRINOGEN ACTIVITY (12/25/2023 11:45 AM CDT) Only the most recent of23 resultswithin the time period is included. Fibrinogen Clauss 676(H) 200 - 400 mg/dL 12/25/2023 12:24 PM [facility] Blood BLOOD SPECIMEN / Unknown Lab Venipuncture / Unknown 12/25/2023 11:45 AM CDT 12/25/2023 11:58 AM CDT German Damon MD LAB - COAGULATION OR DERABLES [facility] [address] [place] [address], [facility] [phone] * (ABNORMAL) DIFFERENTIAL MANUAL (12/25/2023 11:45 AM CDT) Only the most recent of27 resultswithin the time period is included. Neutrophil % 84(H) 41 - 74 % 12/25/2023 12:41 PM [facility] Lymphocyte % 10(L) 17 - 47 % 12/25/2023 12:41 PM [facility] Monocyte % 5 3 - 11 % 12/25/2023 12:41 PM [facility] Eosinophil % 1 0 - 7 % 12/25/2023 12:41 PM [facility] Neutrophil Absolute 16.80(H) 1.60 - 7.50 x10E9/L 12/25/2023 12:41 PM [facility] Lymphocyte Absolute 2.00 1.00 - 4.40 x10E9/L 12/25/2023 12:41 PM [facility] Monocyte Absolute 1.00 0.15 - 1.00 x10E9/L 12/25/2023 12:41 PM [facility] Eosinophil Absolute 0.20 0.00 - 0.60 x10E9/L 12/25/2023 12:41 PM [facility] RBC Morphology REVIEWED 12/25/2023 12:41 PM [facility] Sydney Cells MODERATE(A) (none) 12/25/2023 12:41 PM CDT [facility] Schistocytes MODERATE(A) (none) 12/25/2023 12:41 PM CDT [facility] Stomatocytes MODERATE(A) (none) 12/25/2023 12:41 PM CDT [facility] Target Cells MODERATE(A) (none) 12/25/2023 12:41 PM CDT [facility] Blood BLOOD SPECIMEN / Unknown Lab Venipuncture / Unknown 12/25/2023 11:45 AM CDT 12/25/2023 12:06 PM CDT German Damon MD LAB - HEMATOLOGY ORD ERABLES [address] [address], [place] [phone] * (ABNORMAL) LDH BLOOD (12/25/2023 11:45 AM CDT) Only the most recent of24 resultswithin the time period is included. LDH Total 281(H) 125 - 243 Units/L 12/25/2023 12:31 PM CDT [facility] Blood BLOOD SPECIMEN / Unknown Lab Venipuncture / Unknown 12/25/2023 11:45 AM CDT 12/25/2023 12:06 PM CDT German Damon MD LAB - CHEMISTRY ORDE RABLOYDA [address] [address], [place] [phone] * HAPTOGLOBIN (12/25/2023 11:45 AM CDT) Only the most recent of24 resultswithin the time period is included. Haptoglobin 186 14 - 258 mg/dL 12/25/2023 12:31 PM CDT [facility] Blood BLOOD SPECIMEN / Unknown Lab Venipuncture / Unknown 12/25/2023 11:45 AM CDT 12/25/2023 11:58 AM CDT German Damon MD LAB - CHEMISTRY NAZARIO GRANT [facility] Organization Address City/State/ZIP Co de Phone Number [place] [id number] [place] [address], [facility] [phone] * ECHO PATRICK COMPLETE (12/24/2023 12:08 PM [...] 11:16 AM Patient Status: I/P Study Site: [facility] Primary Location: [facility] EStudy Info Exam Type: ECHO PATRICK COMPLETE Indications R78.81 - Gram-positive bacteremia D57.01 - Acute chest syndrome (HCC) * A 2D, 3D, color Doppler, spectral Doppler and M-Mode transesophageal echocardiogram was performed with a Bubble Study. * During the study the esophageal, transgastric, and descending thoracic views were captured. Staff Referring Physician: Kathy Uriostegui Ordering Provider: Kathy Uriostegui Attending Physician: Kathy Uriostegui Camera Operator: Hua Wiley Complications * There were no [...] 11:16 AM Patient Status: I/P Study Site: [facility] Primary Location: [facility] EStudy Info Exam Type: ECHO PATRICK COMPLETE Indications R78.81 - Gram-positive bacteremia D57.01 - Acute chest syndrome (HCC) * A 2D, 3D, color Doppler, spectral Doppler and M-Mode transesophageal echocardiogram was performed with a Bubble Study. * During the study the esophageal, transgastric, and descendingthoracic views were captured. Staff Referring Physician: Kathy Uriostegui Ordering Provider: Kathy Uriostegui Attending Physician: Kathy Uriostegui Camera Operator: Hua Wiley Complications * There were no [...] LA perspective Length 1.24 cm 3D planimetry OTMMY orifice LA perspective Area 3.25 cm2 3D [...] queried. Report dictated by Celestino Carvajal MD (interventional radiology rn) I, Darrell Roland MD have personally reviewed [...] queried. Report dictated by Celestino Carvajal MD (interventional radiology rn) I, Darrell Roland MD have personally reviewed and interpreted this examination/study. > Interpreting Provider: Darrell Roland MD on 12/22/2023 5:24 PM Kathy Uriostegui MD US ORDERABLES * (ABNORMAL) HGB HCT PANEL (12/19/2023 9:11 AM CDT) [facility] Hemoglobin 7.5(L) 13.3 - 17.5 g/dL 12/19/2023 9:47 AM CDT [facility] Hematocrit 21.5(L) 38.7 - 51.1 % 12/19/2023 9:47 AM CDT [facility] Blood BLOOD SPECIMEN / Unknown Venipuncture / Unknown 12/19/2023 9:11 AM CDT 12/19/2023 9:31 AM CDT German Damon MD LAB - HEMATOLOGY ORD ERABLES [address] [address], [facility] [phone] * TRANSFUSE RED BLOOD CELL LEUKOREDUCED UNIT(S) (12/19/2023 8:42 AM CDT) German Damon MD NURSING - BLOOD PROD TRANSFUSION * PREPARE (CROSSMATCH) RBC UNIT(S), 1 Units (12/19/2023 5:59 AM CDT) Only the most recent of4 resultswithin the time period is included. [facility] Unit Description AS1 LR PRBC [facility] BLOOD [facility] LAB Unit ABO A [facility]OD [facility] Unit Rh POS [facility]OD [facility] Product Number R02 [facility] B LOOD BANK LAB Unit Donor # [id number] [facility] Unit Status transfused [facility] BLO OD BANK LAB Product Code [id number] [facility] BLO OD BANK LAB Blood Type Barcode 6200 [facility] B[facility] LAB Expiration Date S BLOOD BANK LAB Blood Bank BLOOD SPECIMEN / Unknown 12/16/2023 1:58 AM CDT German Damon MD LAB - BLOOD BANK ORD ERABLES Performing Organization Address City/[facility]/ZIP Co de Phone Number [facility] B[facility]OD [facility] LAB [address] [place] [address], [facility] [phone] * TYPE + SCREEN PANEL (12/19/2023 5:22 AM CDT) Only the most recent of2 resultswithin the time period is included. Antibody Screen NEG 5:52 AM CDT [facility] BLOOD [facility] LAB ABO Rh A POS 12/19/2023 5:52 AM CDT [facility] BLOOD [facility] LAB Blood Bank BLOOD SPECIMEN / Unknown Venipuncture / Unknown 12/19/2023 5:22 AM CDT 12/19/2023 5:32 AM CDT German Damon MD LAB - BLOOD BANK ORD ERABLES Performing Organization Address City/[facility]/ZIP Co de Phone Number [facility] BLOOD [facility] LAB [address] [place] [address], [facility] [phone] * TEG 6 GLOBAL HEMOSTASIS W/ LYSIS (12/19/2023 5:04 AM CDT) Only the most recent of2 resultswithin the time period is included. Citrated Kaolin R (Reaction Time) 6.2 4.6 - 9.1 min 12/19/2023 6:24 AM CDT [facility] Citrated Kaolin LY30 (Lysis) 0.7 0.0 - 2.6 % 12/19/2023 6:24 AM CDT [facility] Citrated Functional Fibrinogen MA (Max Amplitude) 26.1 15.0 - 32.0 mm 12/19/2023 6:24 AM CDT [facility] Citrated RapidTEG MA (Max Amplitude) 60.2 52.0 - 70.0 mm 12/19/2023 6:24 AM CDT [facility] Blood BLOOD SPECIMEN / Unknown Venipuncture / Unknown 12/19/2023 5:04 AM CDT 12/19/2023 5:11 AM CDT German Damon MD LAB - HEMATOLOGY KIRA JARAMILLO [address] [address], [place] [phone] * HEPATITIS C AB SCREEN RFLX NAAT QUANT (12/19/2023 5:04 AM CDT) Only the most recent of2 resultswithin the time period is included. Hepatitis C Antibody Non-react adniel Non-reac tive 12/19/2023 6:17 AM CDT [facility] Comment:Hepatitis C Antibody screen indicates no [...] - CHEMISTRY NAZARIO GRANT Performing Organization Address City/[facility]/ZIP Co de Phone Number [address] [address], [place] [phone] * HIV-1 HIV-2 ANTIBODY + HIV P24 AG PANEL (12/19/2023 5:04 AM CDT) HIV Antigen/Antibod y 1 & 2 Non-reacti ve Non-react daniel 12/19/2023 6:17 AM CDT [facility] Comment:No Laboratory eviden ce of HIV infection. Blood BLOOD SPECIMEN / Unknown Venipuncture / Unknown 12/19/2023 5:04 AM CDT 12/19/2023 5:08 AM CDT German Damon MD LAB - CHEMISTRY NZAARIO GRANT [address] [address], [place] [phone] * (ABNORMAL) STREP PNEUMONIAE ANTIGEN URINE (12/18/2023 9:42 PM CDT) Streptococcus pneumoniae Antigen Urine Positive( A) Negative 12/19/2023 7:14 AM CDT [facility] Urine URINE / Unknown Collection / Unknown 12/18/2023 9:42 PM CDT 12/18/2023 9:52 PM CDT Narrative [facility] - 12/19/2023 7:14 AM CDT [...] - MICROBIOLOGY Zenia SILVERIO Performing Organization Address [facility] de Phone Number [facility] [address] [address], [facility] [phone] * LEGIONELLA ANTIGEN URINE (12/18/2023 9:42 PM CDT) Legionella Antigen Urine Negative Negative 12/19/2023 7:18 AM CDT [facility] Urine URINE / Unknown Collection / Unknown 12/18/2023 9:42 PM CDT 12/18/2023 9:45 PM CDT Narrative [facility] - 12/19/2023 7:18 AM CDT This assay detects Legionella pneumophila serogroup one (1) antigen. A negative test result does not rule out the possibility of Legionella infection due to other serogroups or species of Legionella. A positive result may indicate a recent or remote infection with serogroup 1. German Damon MD LAB - MICROBIOLOGY O JEAN CLAUDE Performing Organization Address City/[facility] Co de Phone Number [facility] [address] [place] [address], [facility] [phone] * (ABNORMAL) URINE DRUG SCREEN IMMUNOASSAY (12/18/2023 9:42 PM CDT) Amphetamines Screen Urine Negative Negative : < 1000 ng/mL 12/18/2023 10:25 PM CDT [facility] Barbiturates Screen Urine Negative Negative : < 200 ng/mL 12/18/2023 10:25 PM [facility] Benzodiazepine Screen Urine Negative Negative : < 200 ng/mL 12/18/2023 10:25 PM CDT [facility] Opiates Urine Negative Negative : < 300 ng/mL 12/18/2023 10:25 PM [facility] Cocaine Metabolites Urine Negative Negative : < 300 ng/mL 12/18/2023 10:25 PM [facility] Phencyclidine Screen Urine Negative Negative : < 25 ng/ml 12/18/2023 10:25 PM [facility] Cannabinoids Screen Urine Negative Negative : <50 ng/mL 12/18/2023 10:25 PM T [facility] Methadone Screen Urine Positive(A) Negative : < 300 ng/mL 12/18/2023 10:25 PM [facility] Comment:Positive urine metha done screening results should be confirmed by another generally accepted non-immunological method such as gas chromatography or mass spectrometry. Fentanyl Screen Urine Negative Negative : <1.5 ng/mL 12/18/2023 10:25 PM [facility] Urine URINE / Unknown Collection / Unknown 12/18/2023 9:42 PM CDT 12/18/2023 9:45 PM CDT [facility] - 12/18/2023 10:25 PM CDT The Urine Toxicology Screening Panel does not screen for Propoxyphene, Meprobamate, Carisoprodol, Trazodone, sygx-nqg-ainejiu medications and/or volatiles (Acetone, Isopropanol, Methanol or Ethylene Glycol). Ethanol, Salicylate, Acetaminophen, Tricyclic Antidepressants and several therapeutic drugs may be individually assayed in serum or plasma specimen. Toxicology testing by the [facility] is an aid to medical diagnosis and treatment of patients. No documented chain of custody was maintained. Results are intended to be used for clinical purposes only. German Damon MD LAB - URINE CHEMISTR Y ORDERABLES [facility] [address] [place] [address], [facility] [phone] * TRANSFUSE FRESH FROZEN PLASMA UNIT(S) (12/18/2023 6:44 PM CDT) German Damon MD NURSING - BLOOD PROD TRANSFUSION * (ABNORMAL) PROCALCITONIN LEVEL (12/18/2023 6:17 PM CDT) Only the most recent of2 resultswithin the time period is included. PROCALCITONIN 27.93(H) <=0.10 ng/mL 12/18/2023 7:43 PM CDT [facility] Blood BLOOD SPECIMEN / Unknown Venipuncture / Unknown 12/18/2023 6:17 PM CDT 12/18/2023 7:11 PM CDT Narrative [facility] - 12/18/2023 7:43 PM CDT The [...] Change in Procalcitonin Calculator is available at [email or web address] If clinical picture has not improved and PCT remains high, reevaluate and consider treatment failure or other causes. German Damon MD LAB - CHEMISTRY ORDE RABLES Performing Organization Address City/[facility]/ZIP Co de Phone Number [facility] [address] [place] [address], [facility] [phone] * (ABNORMAL) BLOOD GASES CHAUNCEY + COOX PANEL (12/18/2023 6:17 PM [facility]) pH Venous 7.40 7.32 - 7.42 pH 12/18/2023 6:46 PM [facility] pO2 Venous 33(L) 35 - 40 mmHg 12/18/2023 6:46 PM [facility] pCO2 Venous 42 40 - 50 mmHg 12/18/2023 6:46 PM [facility] HCO3 Venous 26.0 20 - 30 mmol/L 12/18/2023 6:46 PM [facility] Base Excess Venous 1.1 -2.0 - 2.0 mmol/L 12/18/2023 6:46 PM [facility] Oxyhemoglobin Venous 58.5 % 07/2023 6:46 PM [facility] Deoxyhemoglobin (HHB) Venous % 36.7 % 12/18/2023 6:46 PM [facility] Methemoglobin 1.2 0.0 - 2.0 % 12/18/2023 6:46 PM [facility] Carboxyhemoglobin 3.6(H) 0.0 - 2.0 % 2023 6:46 PM [facility] O2 Content Venous 5.9 Interpret within clinical context ml/dL 12/18/2023 6:46 PM [facility] Hemoglobin by COOX 7.1(L) 12.0 - 17.6 g/dL 12/18/2023 6:46 PM [facility] O2 Saturation Venous 61(L) >=70 % 07/2023 6:46 PM [facility] FI O2 Mixed Venous 21.0 % 2023 6:46 PM [facility] Blood BLOOD SPECIMEN / Unknown Venipuncture / Unknown 12/18/2023 6:17 PM T 12/18/2023 6:40 PM [facility] - 12/18/2023 6:46 PM [facility] Carboxyhemoglobin Normal Concentration: Non-smokers: 0-2%; Smokers: 0-9%; Toxic: >20% German Damon MD LAB - BLOOD GASES OR DERABLES [facility] [address] [place] [address], [facility] [phone] * CT Chest Wo Contrast (12/18/2023 5:59 [...] 4.Cholelithiasis > Dictated by Varun Carl MD (interventional radiology rn). I, Sameer Sears MD have personally reviewed and interpreted this examination/study. > Interpreting Provider: Sameer Sears MD on 12/19/2023 12:27 AM Narrative 12/19/2023 12:27 AM CDT PROCEDURE: CT CHEST WO CONTRAST, DATE/TIME OF EXAM: 12/18/2023 5:59 PM, LOCATION [facility] INDICATION: J96.01: Acute hypoxic respiratory failure [...] DATE/TIME OF EXAM: 12/18/2023 5:59 PM, LOCATION [facility] INDICATION: J96.01: Acute hypoxic respiratory failure [...] 4.Cholelithiasis > Dictated by Varun Carl MD (interventional radiology rn). I, Sameer Sears MD have personally reviewed [...] resultswithin the time period is included. Pathologist [facility] Unit Description Thawed Plasma 5D [facility] Unit ABO AB [facility] Unit Rh POS [facility] Product Number [id number] [facility] Unit Donor # [id number] [facility] Unit Status transfused [facility] Product Code [id number] [facility] LAB Blood Type Barcode 8400 [facility] Expiration Date S BLOOD BANK LAB Blood Bank BLOOD SPECIMEN / Unknown 12/16/2023 1:58 AM CDT German Damon MD LAB - BLOOD BANK ORD ERABLES [facility] LAB [address] [place] [address], [facility] [phone] * ECHO COMPLETE W CONTRAST (12/18/2023 4:24 [...] LV A2C EF 55.4 % [facility] I PACS LV A4C EF 60.23 % [facility] I PACS LV EDV A2C 146.628 ml [facility] FU JI PACS LV EDV A4C 170.088 ml [facility]U JI PACS LV ESV A2C 65.396 ml [facility]U JI PACS LV ESV A4C 67.644 ml [facility] FU JI PACS LVOT pk tarik 119.899 cm/s [facility] F U PACS LVOT VTI 17.988 cm [facility] I PACS RVIDd 4.038 cm [facility] I PACS RVOT diam Doppler 2.413 [facility] RV[facility] pk tarik 58.018 cm/s [facility] F U PACS RVOT VTI 12.29 cm [facility] I PACS LA size 4.297 cm [facility] I PACS RA area 21.671 cm [facility] AV mn grad 3.36 mmHg [facility] FU PACS AV pk tarik 124.946 cm/s [facility] I PACS AV VTI 21.093 cm [facility] I PACS MV A pk tarik 60.502 cm/s [facility] F U PACS MV E pk tarik 78.535 cm/s [facility] F U PACS MV E' lateral tarik 14.675 cm/[facility] MV mn grad 1.853 mmHg [facility] FU PACS MV VTI 20.082 cm [facility] I PACS PV pk tarik 60.705 cm/s [facility] I PACS PV VTI 13.163 cm [facility] I PACS TAPSE 2.631 cm [facility] I PACS Ascending aorta 3.098 [facility] IVC Diam Expiration 1.739 cm [facility] Myocardial strain charge 2 unitless [facility] Sinus of Valsalva 3.754 cm [facility] Anatomical Region Laterality Modality Ultrasound 12/18/2023 [...] 3:33 PM Patient Status: I/P Study Site: [facility] Primary Location: [facility] Info Exam Type: ECHO COMPLETE W CONTRAST [...] Provider: German Damon Attending Physician: German Damon Camera Operator: Rosi Johnson Left Ventricle Left ventricular systolic [...] 3:33 PM Patient Status: I/P Study Site: [facility] Primary Location: [facility] EStudy Info Exam Type: ECHO COMPLETE [...] Provider: German Damon Attending Physician: German Damon Camera Operator: Rosi Johnson Left Ventricle Left ventricular systolic [...] A ANTIBODY (12/18/2023 1:20 PM CDT) Pathologist [facility] Hepatitis A Virus Antibody Total Positive( A) Negative 12/20/2023 3:17 PM CDT [employer] ([facility]) Comment: The positive anti-HAV is consistent with recent or remote Hepatitis A infection or antibody response to HAV vaccination. False positive anti-HAV can occur. Performed By: [facility] [address] [place] [address] [employer] Assistant: Reji Mckeon MD, PhD CLIA Number: [id number] Blood BLOOD SPECIMEN / Unknown Venipuncture / Unknown 12/18/2023 1:20 PM CDT 12/18/2023 1:26 PM CDT German Damon MD LAB - CHEMISTRY [facility]arrell [facility] ([facility]) [address] * HEPATITIS B PANEL (12/18/2023 11:39 AM CDT) Hepatitis B Virus Surface Antibody Non-reacti ve Non-react daniel 12/18/2023 5:28 PM CDT [facility] Comment: < 8 mIU/mL Hepatitis B surface Antibody (HBsAb). Nonreactive for HBsAb - individual is considered not immune to Hepatitis B Virus infection. Hepatitis B Virus Surface Antigen Non-reacti ve Non-react daniel 12/18/2023 5:28 PM CDT [facility] Hepatitis B Core Virus Antibody IgM Non-reacti ve Non-react daniel 12/18/2023 5:28 PM CDT [facility] Blood BLOOD SPECIMEN / Unknown Venipuncture / Unknown 12/18/2023 11:39 AM CDT 12/18/2023 11:47 AM CDT German Damon MD LAB - CHEMISTRY NAZARIO GRATN [facility] [address] [phone] [phone] * US Abdomen Limited (12/18/2023 7:58 AM [...] HIDA scan. Report dictated by Timo Altamirano MD(interventional radiology rn). IElbert MD have personally reviewed and interpreted this examination/study. > Interpreting Provider: Elbert Santo MD on 12/18/2023 9:24 AM Narrative 12/18/2023 9:24 AM CDT PROCEDURE: US ABDOMEN LIMITED, DATE/TIME OF EXAM: 12/18/2023 7:58 AM, LOCATION [facility] INDICATION: D57.00: Sickle cell crisis (HCC) [...] DATE/TIME OF EXAM: 12/18/2023 7:58 AM, LOCATION [facility] INDICATION: D57.00: Sickle cell crisis (HCC) [...] HIDA scan. Report dictated by Timo Altamirano MD(interventional radiology rn). I, Elbert Santo MD have personally reviewed and interpreted this examination/study. > Interpreting Provider: Elbert Santo MD on 12/18/2023 9:24 AM German Damon MD US ORDERABLES * (ABNORMAL) HEMOGLOBIN A1C (12/18/2023 3:46 AM CDT) [facility] Hemoglobin A1c 6.0(H) <=5.6 % 12/18/2023 10:23 AM CDT [facility] Estimated Average Glucose 126 mg/dL 12/18/2023 10:23 AM T [facility] Comment: HbA1c Interpretation: Normal : < 5.7% Pre-diabetes: 5.7-6.4% Diabetes: Equal to or greater than 6.5% Test results diagnostic of diabetes should be repeated for confirmation. Treatment target values recommended by ADA and other clinical organizations should be used to evaluate metabolic control in patients. Reference: [place] Diabetes Association, Standards of Care in Diabetes [...] Damon MD LAB - CHEMISTRY NAZARIO GRANT [facility] Organization Address City/State/ZIP Co de Phone Number [facility] [address] [place] [address], [facility] [phone] * (ABNORMAL) LIPID PROFILE (12/18/2023 3:46 AM CDT) Cholesterol Total 100 <200 mg/dL 12/18/2023 4:46 AM CDT [facility] HDL 7(L) >40 mg/dL 12/18/2023 4:46 AM T [facility] Comment: ATP III Classification of HDL Cholesterol: <40 mg/dL: Considered a major risk factor. >60 mg/dL: Considered a negative risk factor. LDL Calculated 54 <100 mg/dL 12/18/2023 4:46 AM T [facility] Comment: ATP III Classification of LDL Cholesterol: <100 mg/dL: Optimal 100 - 129 mg/dL: Near Optimal/Above Optimal 130 - 159 mg/dL: Borderline High 160 - 189 mg/dL: High >190 mg/dL: Very High Triglycerides 195(H) <150 mg/dL 12/18/2023 4:46 AM T [facility] Comment: ATP III Classification of Triglycerides: <150 mg/dL: Normal 150 - 199 mg/dL: Borderline High 200 - 400 mg/dL: High >500 mg/dL: Very High Blood BLOOD SPECIMEN / Unknown Venipuncture / Unknown 12/18/2023 3:46 AM CDT 12/18/2023 4:14 AM CDT German Damon MD LAB - CHEMISTRY NAZARIO GRANT [facility] Organization Address [facility]/State/ZIP Co de Phone Number [facility] [address] [address], [facility] [phone] * DERMATOPATHOLOGY DIF ONLY ( Specimen Count = 1) (12/18/2023 12:00 AM CDT) Case Report Dermatopathol ogy Report Case: [id number] Authorizing Provider: Guanaco Arana MD Collected: 12/18/2023 12:00 AM Ordering Location: [facility] - Received: 12/18/2023 09:56 AM Dermatology Pathologist: Marcy Suarez MD Specimen: Skin, right dorsal forearm 4:49 PM CDT DERMATOPATHOLOGY LABORATORY Final Diagnosis Specimen A. SKIN, right dorsal forearm: 1+ PATCHY LINEAR BASEMENT MEMBRANE ZONE POSITIVITY WITH IgG AND C3 (L13.9) FOCAL INTRAEPIDERMA L IgA (see microscopic description and comment) (See direct immunofluores cence results [id number]) 4:49 PM CDT DERMATOPATHOLOGY LABORATORY Direct Immunofluorescence [...] non-specific staining. COMMENT: The clinical images in [facility], as well as the fixed tissue specimen ([id number]), are reviewed. Given the fixed tissue results, [...] determined by the Dermatopathol ogy Laboratory at [facility], directed by Dr. Dianna Arana. These tests need not be, and therefore are not, approved by the [place] Food and Drug Administratio n. The tests are used for clinical purposes. Billing Codes Specimen Charges Stain Charges 72003 04599 92105 69376 21312 75614 1 1 1 1 1 1 4 4:49 PM CDT DERMATOPATHOLOGY LABORATORY Embedded Images 4:49 PM CDT DERMATOPATHOLOGY LABORATORY Pathology/Cytolog y TISSUE SPECIMEN FROM SKIN / Unknown 12/18/2023 12/18/2023 9:56 AM CDT Guanaco Arana MD LAB - PATHOLOGY/CYTO LOGY ORDERABLES DERMATOPATHOLOGY LABORATORY [facility] Department of Dermatology [address] [phone] * DERMATOPATHOLOGY (Specimen Count = 1) (12/18/2023 12:00 AM CDT) Case Report Dermatopathology Report Case: [id number] Authorizing Provider: Guanaco Arana MD Collected: 12/18/2023 12:00 AM Ordering Location: [facility] - Received: 12/18/2023 09:55 AM Dermatology Pathologist: Marcy Suarez MD Specimen: Skin, right dorsal forearm 4:49 PM CDT DERMATOPATHOLOGY LABORATORY Final Diagnosis Specimen A. 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 Dianna Arana. These tests need not be, and therefore are not, approved by the [place] Food and Drug Administration. The tests are used for clinical purposes. Billing Codes Specimen Charges Stain Charges 94065 1 70404 1 4 4:49 PM CDT DERMATOPATHOLOGY LABORATORY Embedded Images 4 4:49 PM CDT DERMATOPATHOLOGY LABORATORY Pathology/Cytolog y TISSUE SPECIMEN FROM SKIN / Unknown 12/18/2023 12/18/2023 9:55 AM CDT Guanaco Arana MD LAB - PATHOLOGY/CYTO LOGY ORDERABLES DERMATOPATHOLOGY LABORATORY [facility] - Department of Dermatology [address] [phone] * LACTIC ACID BLOOD (12/17/2023 11:08 PM CDT) [facility] Lactic Acid-Stat 1.2 <=2.0 mmol/L 12/17/2023 11:36 PM CDT [facility] Blood BLOOD SPECIMEN / Unknown Venipuncture / Unknown 12/17/2023 11:08 PM CDT 12/17/2023 11:15 PM CDT German Damon MD LAB - CHEMISTRY NAZARIO GRANT [facility] [address] [place] [address], [facility] [phone] * VANCOMYCIN LEVEL RANDOM (12/17/2023 12:23 PM CDT) Only the most recent of4 resultswithin the time period is included. [facility] Vancomycin Random 11.4 Therapeutic Ranges not established for random specimens ug/mL 12/17/2023 1:06 PM CDT [facility] Blood BLOOD SPECIMEN / Unknown Venipuncture / Unknown 12/17/2023 12:23 PM CDT 12/17/2023 12:30 PM CDT Narrative [facility] - 12/17/2023 1:06 PM CDT See institution protocol. German Damon MD LAB - CHEMISTRY NAZARIO GRANT Performing Organization Address [facility]/ZIP Co de Phone Number [address] [address], [facility] [phone] * ZEUS-CANTU VIRUS ANTIBODY TO VCA IGM (12/17/2023 4:41 AM CDT) [facility] Zeus-Cantu Virus Antibody IgM Viral Capsid Antigen <10.0 0.0 - 43.9 U/mL 12/18/2023 9:16 PM CDT [facility] ([facility]) Comment: INTERPRETIVE INFORMATION: Zeus-Cantu Virus Antibody to Viral Capsid Antigen, IgM 35.9 U/mL or less.......Not Detected 36.0-43.9 U/mL..........Indeterminate - Repeat testing in 10-14 days may be helpful. 44.0 U/mL or greater....Detected Performed By: [facility] [address] [place] [address] Operations And Intelligence Assistant: Reji Mckeon MD, PhD CLIA Number: [id number] Blood BLOOD SPECIMEN / Unknown Venipuncture / Unknown 12/17/2023 4:41 AM CDT 12/17/2023 4:52 AM CDT German Damon MD LAB - SEROLOGY ORDER DENNIS Performing Organization Address [facility] Co de Phone Number [employer] ([facility]) [address] [place] [address], [facility] * CYTOMEGALOVIRUS ANTIBODY IGM BLOOD (12/17/2023 4:41 AM CDT) [facility] Cytomegalovirus Antibody IgM <30.0 0.0 - 29.9 AU/mL 12/18/2023 6:12 AM CDT [facility] ([facility]) Comment: Negative <30.0 Equivocal 30.0 - 34.9 Positive >34.9 A positive result is generally indicative of acute infection, reactivation or persistent IgM production. Blood BLOOD SPECIMEN / Unknown Venipuncture / Unknown 12/17/2023 4:41 AM CDT 12/17/2023 4:52 AM CDT Narrative [facility] ([facility]) - 12/18/2023 6:12 AM CDT Performed at: [address] [place] [address] [address] [place], [place] [id number] [employer] Developer: Saeed Singleton PhD, Phone: [phone] German Damon MD LAB - CHEMISTRY ORDE RUDY Performing Organization Address City/[facility]/ZIP Co de Phone Number [facility] ([facility]) [address] [place] [address] * (ABNORMAL) CYTOMEGALOVIRUS ANTIBODY IGG BLOOD (12/17/2023 4:41 AM CDT) [facility] Cytomegalovirus Antibody IgG 6.90(H) <=0.70 U/mL 12/18/2023 10:42 PM CDT [employer] ([facility]) Comment: INTERPRETIVE INFORMATION: Cytomegalovirus Antibody, IgG [...] laboratory at the same time. Performed By: [facility] [facility] [address] [place] [address] Operations And Intelligence Assistant: Reji Mckeon MD, PhD CLIA Number: [id number] Blood BLOOD SPECIMEN / Unknown Venipuncture / Unknown 12/17/2023 4:41 AM CDT 12/17/2023 4:51 AM CDT German Damon MD LAB - CHEMISTRY NAZARIO GRANT [facility] Organization Address City/State/ZIP Co de Phone Number [facility] [employer] [facility]) [address] [place] [address], [facility] * PARVOVIRUS B19 ANTIBODY IGM (12/17/2023 4:41 AM CDT) Parvovirus B19 Antibody IgM 0.5 0.0 - 0.8 index 12/19/2023 3:09 PM CDT [facility] ([facility]) Comment: Negative <0.9 Equivocal 0.9 - 1.1 Positive >1.1 Blood BLOOD SPECIMEN / Unknown Venipuncture / Unknown 12/17/2023 4:41 AM CDT 12/17/2023 4:51 AM CDT Narrative [facility] ([facility]) - 12/19/2023 3:09 PM CDT Performed at: - [address] [id number] [employer]p Developer: Reena Cha MD, Phone: [phone] German Damon MD LAB - SEROLOGY ORDER DENNIS Performing Organization Address City/[facility]/ZIP Co de Phone Number [facility] ([facility]) [address] [place] [address] * (ABNORMAL) PARVOVIRUS B19 ANTIBODY IGG (12/17/2023 4:41 AM CDT) Parvovirus B19 Antibody IgG 0.97(H) <=0.90 IV 12/21/2023 1:56 AM CDT [facility] [employer] ([facility]) Comment: INTERPRETIVE INFORMATION: Parvovirus B19 Antibody, [...] laboratory at the same time. Performed By: [facility] [address] [place] [address] Operations And Intelligence Assistant: Reji Mckeon MD, PhD CLIA Number: [id number] Blood BLOOD SPECIMEN / Unknown Venipuncture / Unknown 12/17/2023 4:41 AM CDT 12/17/2023 4:52 AM CDT German Damon MD LAB - SEROLOGY ORDER DENNSI Performing Organization Address City/[facility]/ZIP Co de Phone Number [facility] [employer] ([facility]) [address] [place] [address] * (ABNORMAL) ZEUS-CANTU VIRUS ANTIBODY TO VCA IGG (12/17/2023 4:41 AM CDT) Zeus-Cantu Virus Antibody IgG Viral Capsid Antigen >750.0(H) 0.0 - 21.9 U/mL 12/18/2023 10:37 PM CDT [facility]) Comment: INTERPRETIVE INFORMATION: Zeus-Cantu Virus Antibody to Viral Capsid Antigen, IgG 17.9 U/mL or less.......Not Detected 18.0-21.9 U/mL..........Indeterminate - Repeat testing in 10-14 days may be helpful. 22.0 U/mL or greater....Detected Performed By: [facility] [address] [place] [address] Operations And Intelligence Assistant: Reji Mckeon MD, PhD CLIA Number: [id number] Blood BLOOD SPECIMEN / Unknown Venipuncture / Unknown 12/17/2023 4:41 AM CDT 12/17/2023 4:51 AM CDT German Damon MD LAB - CHEMISTRY NAZARIO GRANT [facility] Organization Address City/State/ZIP Co de Phone Number [facility]) [address] [place] [address] * (ABNORMAL) RENAL FUNCTION PANEL (12/17/2023 3:58 AM CDT) Only the most recent of2 resultswithin the time period is included. BUN 24 7 - 26 mg/dL 12/17/2023 4:39 AM [facility] Creatinine 1.64(H) 0.71 - 1.16 mg/dL 12/17/2023 4:39 AM [facility] Sodium 145 136 - 145 mmol/L 12/17/2023 4:39 AM [facility] Potassium 4.0 3.5 - 4.5 mmol/L 12/17/2023 4:39 AM [facility] Chloride 117(H) 98 - 107 mmol/L 12/17/2023 4:39 AM [facility] CO2 24 22 - 29 mmol/L 12/17/2023 4:39 AM [facility] Glucose 131(H) 70 - 115 mg/dL 12/17/2023 4:39 AM [facility] Albumin 2.2(L) 3.4 - 5.0 g/dL 12/17/2023 4:39 AM [facility] Calcium 9.1 8.4 - 10.2 mg/dL 12/17/2023 4:39 AM [facility] Phosphorus 2.2(L) 2.8 - 5.1 mg/dL 12/17/2023 4:39 AM [facility] Anion Gap 4(L) 6 - 16 12/17/2023 4:39 AM [facility] BUN/Creatinine Ratio 15 7 - 23 12/17/2023 4:39 AM [facility] Osmolality Calculated 306(H) 275 - 295 mOsm/kg 12/17/2023 4:39 AM [facility] eGFR by CKD-EPI 54(L) >=90 mL/min/1.7 3 m2 12/17/2023 4:39 AM [facility] Blood BLOOD SPECIMEN / Unknown Venipuncture / Unknown 12/17/2023 3:58 AM CDT 12/17/2023 4:08 AM CDT Polo Jimenez MD LAB - CHEMISTRY ORDERABLES [address] [address], [facility] [phone] * (ABNORMAL) VANCOMYCIN LEVEL TROUGH (12/16/2023 11:47 PM CDT) Vancomycin Trough 8.4(L) 10.0 - 20.0 ug/mL 12/17/2023 12:15 AM T [facility] Blood BLOOD SPECIMEN / Unknown Venipuncture / Unknown 12/16/2023 11:47 PM CDT 12/16/2023 11:56 PM CDT Narrative [facility] - 12/17/2023 12:15 AM CDT See institution protocol. Polo Jimenez MD LAB - CHEMISTRY ORDERABLES [address] [address], [place] [phone] * (ABNORMAL) HEMOGLOBIN ELECTROPHORESIS (12/16/2023 9:42 PM CDT) Only the most recent of3 resultswithin the time period is included. Interpretation Hemoglobin Pattern Abnormal Pattern(A) Normal Pattern 12/17/2023 11:12 PM CDT [facility] Comment: Capillary hemoglobin (Hb) electrophoresis shows [...] - 98.2 % 12/17/2023 11:12 PM CDT [facility] Hemoglobin A2 3.1(H) 1.8 - 3.0 % 12/17/2023 11:12 PM CDT [facility] Hemoglobin S Quantitative 9.5(H) Not Detected % 12/17/2023 11:12 PM CDT [facility] Hemoglobin C Quantitative 8.7(H) Not Detected % 12/17/2023 11:12 PM T [facility] Blood BLOOD SPECIMEN / Unknown Venipuncture / Unknown 12/16/2023 9:42 PM CDT 12/16/2023 9:58 PM CDT Polo Jimenez MD LAB - CHEMISTRY ORDERABLES [facility] [address] [place] [address], [facility] [phone] * (ABNORMAL) HEPATIC FUNCTION PANEL (12/16/2023 9:42 PM CDT) Only the most recent of5 resultswithin the time period is included. Protein Total 4.9(L) 6.0 - 8.3 g/dL 024 10:24 PM CDT [facility] Albumin 2.3(L) 3.4 - 5.0 g/dL 12/16/2023 10:24 PM CDT [facility] Bilirubin Total 3.4(H) 0.2 - 1.2 mg/dL 05/2023 10:24 PM [facility] Bilirubin Conjugated 1.8(H) 0.1 - 0.5 mg/dL 12/16/2023 10:24 PM [facility] Bilirubin Unconjugated 1.6 Unconjugated Bilirubin is a calculated value: Reference ranges have not been established. mg/dL 12/16/2023 10:24 PM T [facility] Alkaline Phosphatase 62 40 - 150 U/L 12/16/2023 10:24 PM [facility] ALT 825(H) 5 - 55 U/L 12/16/2023 10:24 PM [facility] AST 1,212(H) 5 - 34 U/L 12/16/2023 10:24 PM [facility] Albumin/Globuli n Ratio 0.9(L) 1.1 - 2.3 12/16/2023 10:24 PM T [facility] Blood BLOOD SPECIMEN / Unknown Venipuncture / Unknown 12/16/2023 9:42 PM CDT 12/16/2023 9:58 PM CDT Polo Jimenez MD LAB - CHEMISTRY ORDERABLES [facility] [address] [place] [address], [facility] [phone] * TRANSFUSE RED BLOOD CELL LEUKOREDUCED UNIT(S) [...] of2 resultswithin the time period is included. [facility] Calcium Ionized 1.36 mmol/L 12/16/2023 6:19 PM CDT [facility] pH 7.32(L) 7.35 - 7.45 pH 12/16/2023 6:19 PM CDT [facility] Ionized Calcium pH Adjusted 1.32 1.19 - 1.34 mmol/L 12/16/2023 6:19 PM CDT [facility] Blood BLOOD SPECIMEN / Unknown Venipuncture / Unknown 12/16/2023 6:07 PM CDT 12/16/2023 6:13 PM CDT Polo Jimenez MD LAB - CHEMISTRY ORDERABLES [facility] [address] [place] [address], [facility] [phone] * PREPARE CRYOPRECIPITATE UNIT (S), 5 Units (12/16/2023 5:18 PM CDT) Pathologist [facility] Unit Description Thawed Cryp Open [facility] BLOOD [facility]ANK LAB Unit ABO A [facility] Unit Rh POS [facility] Product Number [id number] [facility] B LOOD [facility] LAB Unit Donor # [id number] [facility] Unit Status transfused [facility] B[facility] LAB Product Code [id number] [facility] B[facility]ANK LAB Blood Type Barcode 6200 [facility] LAB Expiration Date S BLOOD BANK LAB Blood Bank BLOOD SPECIMEN / Unknown 12/16/2023 1:58 AM CDT Polo Jimenez MD LAB - BLOOD BAN K ORDERABLES [facility] LAB [address] [place] [address], [place] [phone] * MRSA DNA PCR (12/16/2023 4:37 PM CDT) [facility] MRSA DNA by PCR Not detected Not detected 12/16/2023 10:49 PM CDT [facility] Microbiology SPECIMEN FROM NASAL FOSSAE / Unknown Collection / Unknown 12/16/2023 4:37 PM CDT 12/16/2023 4:48 PM CDT Narrative [facility] - 12/16/2023 10:49 PM CDT Methicillin-resistant Staphylococcus aureus (MRSA) DNA is not detected (presumed not colonized with MRSA). Polo Jimenez MD LAB - MICROBIOL OGY ORDERABLES [facility] [address] [place] [address], [facility] [phone] * (ABNORMAL) TROPONIN-I HIGH SENSITIVE (12/16/2023 4:26 PM CDT) Only the most recent of4 resultswithin the time period is included. [facility] Troponin I High Sensitive 324(HH) <=35 ng/L 12/16/2023 5:09 PM CDT [facility] Blood BLOOD SPECIMEN / Unknown Venipuncture / Unknown 12/16/2023 4:26 PM CDT 12/16/2023 4:35 PM CDT Polo Jimenez MD LAB - CHEMISTRY ORDERABLES [facility] [address] [place] [address], [facility] [phone] * XR Chest 1Vw Portable (12/16/2023 2:34 [...] of8 resultswithin the time period is included. [facility] Reticulocyte Percent 6.26(H) 0.50 - 2.40 % 12/16/2023 2:49 PM CDT [facility] Reticulocyte Absolute 0.1652(H) 0.0200 - 0.1100 x10E6/uL 12/16/2023 2:49 PM CDT [facility] Ret-HE 24.8(L) 29.0 - 37.9 pg 12/16/2023 2:49 PM CDT [facility] Immature Reticulocyte Fraction 3.2 1.8 - 15.2 % 12/16/2023 2:49 PM CDT [facility] Blood BLOOD SPECIMEN / Unknown Venipuncture / Unknown 12/16/2023 1:10 PM CDT 12/16/2023 1:29 PM CDT Polo Jimenez MD LAB - HEMATOLOG Y ORDERABLES [facility] [address] [place] [address], [facility] [phone] * EKG 12-LEAD (12/16/2023 10:37 AM CDT) Only the most recent of2 resultswithin the time period is included. [facility] Ventricular Rate 98 BPM SL MUSE Atrial Rate 98 BPM [facility] MUSE P-R Interval 158 ms [facility] MUSE QRS Duration ms 80 ms [facility] MUSE Q-T Interval ms 374 ms [facility] MUSE QTC Calculation (Bezet) 477 ms [facility] MUSE Calculated P [place] 39 degrees [facility] MUSE Calculated R [place] 24 degrees SL MUSE Calculated T [place] 11 degrees [facility] MUSE Interpretation EKG NORMAL SINUS RHYTHM NONSPECIFIC T WAVE ABNORMALITY PROLONGED QT ABNORMAL ECG WHEN COMPARED WITH ECG OF 15-DEC-2023 23:19 NO SIGNIFICANT CHANGE WAS FOUND Confirmed by FEMI UREÑA MD ([id number]) on 12/24/2023 5:49:11 PM [facility] MUSE 12/16/2023 10:3 7 AM CDT 12/24/2023 5:49 PM CDT Polo Jimenez MD ECG ORDERABLES Performing Organization Address City/[facility]/ZIP Co de Phone Number [facility] MUSE * (ABNORMAL) LACTIC ACID BLOOD REFLEX TO REPEAT (12/16/2023 10:08 AM CDT) Only the most recent of3 resultswithin the time period is included. [facility] Lactic Acid-Stat 2.4(H) <=2.0 mmol/L 12/16/2023 10:39 AM CDT [facility] Blood BLOOD SPECIMEN / Unknown Venipuncture / Unknown 12/16/2023 10:08 AM CDT 12/16/2023 10:17 AM CDT Polo Jimenez MD LAB - CHEMISTRY ORDERABLES Performing Organization Address [facility] Co de Phone Number [address] [address], [facility] [phone] * FOLATE (12/16/2023 7:02 AM CDT) [facility] Folate 18.3 7.0 - 31.4 ng/mL 12/16/2023 8:11 AM CDT [facility] Blood BLOOD SPECIMEN / Unknown Venipuncture / Unknown 12/16/2023 7:02 AM CDT 12/16/2023 7:12 AM CDT Polo Jimenez MD LAB - CHEMISTRY ORDERABLES Performing Organization Address [facility] Co de Phone Number [address] [address], [place] [phone] * (ABNORMAL) VITAMIN B12 (12/16/2023 7:02 AM CDT) [facility] Vitamin B12 >2,000(H) 213 - 816 pg/mL 12/16/2023 8:10 AM CDT [facility] Blood BLOOD SPECIMEN / Unknown Venipuncture / Unknown 12/16/2023 7:02 AM CDT 12/16/2023 7:12 AM CDT Polo Jimenez MD LAB - CHEMISTRY ORDERABLES [facility] [address] [place] [address], [facility] [phone] * TRANSFUSE RED BLOOD CELL LEUKOREDUCED UNIT(S) (12/16/2023 5:24 AM CDT) Polo Jimenez MD NURSING - BLOOD PROD TRANSFUSION * BLOOD TYPE VERIFICATION (12/16/2023 2:10 AM CDT) ABO Rh A POS 12/16/2023 2:5 9 AM CDT [facility] BLOOD BANK LAB Blood Bank BLOOD SPECIMEN / Unknown 12/16/2023 2:10 AM CDT 12/16/2023 2:22 AM CDT Polo Jimenez MD LAB - BLOOD BAN K ORDERABLES Performing Organization Address City/[facility]/ZIP Co de Phone Number [facility] BLOOD BANK LAB [address] [place] [address], [facility] [phone] * ACETAMINOPHEN LEVEL (12/16/2023 12:16 AM CDT) Acetaminophen <3.0 <3.0 ug/mL 12/16/2023 12:52 AM CDT [facility] Blood BLOOD SPECIMEN / Unknown Venipuncture / Unknown 12/16/2023 12:16 AM CDT 12/16/2023 12:20 AM CDT Narrative [facility] - 12/16/2023 12:52 AM CDT Acetaminophen [...] may alter the peak level. Contact the [facility] at or reserved for healthcare professionals to assist you in evaluating potentially toxic acetaminophen levels. Polo Jimenez MD LAB - CHEMISTRY ORDERABLES Performing Organization Address City/[facility] Co de Phone Number [address] [address], [facility] [phone] * (ABNORMAL) HEMOGLOBIN S QUANTITATIVE (12/16/2023 12:09 AM CDT) Hemoglobin S Quantitation 49.6(H) None Detected % 12/17/2023 4:40 PM CDT [facility] Blood BLOOD SPECIMEN / Unknown Venipuncture / Unknown 12/16/2023 12:09 AM CDT 12/16/2023 12:17 AM CDT Polo Jimenez MD LAB - HEMATOLOG Y ORDERABLES Performing Organization Address [facility] Co de Phone Number [address] [address], [place] [phone] * CULTURE BLOOD (12/15/2023 11:52 PM CDT) Only the most recent of2 resultswithin the time period is included. Culture No growth day 5 LIANE 12/21/2023 5:01 AM CDT [facility] Blood PERIPHERAL BLOOD / Unknown Venipuncture / Unknown 12/15/2023 11:52 PM CDT 12/16/2023 12:15 AM CDT Polo Jimenez MD LAB - MICROBIOL OGY ORDERABLES Performing Organization Address City/[facility]/ZIP Co de Phone Number [facility] [address] [place] [address] [phone] * (ABNORMAL) B-TYPE NATRIURETIC PEPTIDE (12/15/2023 10:38 PM CDT) BNP 344(H) <100 pg/mL 12/15/2023 11:15 PM CDT [facility] Comment: A decision threshold of 100 [...] LAB - CHEMISTRY ORDERABLES Performing Organization Address City/[facility]/ZIP Co de Phone Number [address] [address], [facility] [phone] * (ABNORMAL) C-REACTIVE PROTEIN (12/15/2023 10:30 PM CDT) Pathologist [facility] C-Reactive Protein 22.0(H) <=0.5 mg/dL 12/15/2023 11:06 PM CDT [facility] Blood BLOOD SPECIMEN / Unknown Venipuncture / Unknown 12/15/2023 10:30 PM CDT 12/15/2023 10:42 PM CDT Polo Jimenez MD LAB - CHEMISTRY ORDERABLES Performing Organization Address City/[facility]/ZIP Co de Phone Number [address] [address], [facility] [phone] * (ABNORMAL) CK BLOOD (12/15/2023 10:30 PM CDT) CK Total 338(H) 30 - 200 U/L 12/15/2023 11:10 PM CDT [facility] Blood BLOOD SPECIMEN / Unknown Venipuncture / Unknown 12/15/2023 10:30 PM CDT 12/15/2023 10:42 PM CDT Polo Jimenez MD LAB - CHEMISTRY ORDERABLES [address] [address], [facility] [phone] * (ABNORMAL) SLIDE SCAN HEMATOLOGY (01/30/2018 9:17 AM CDT) Only the most recent of5 resultswithin the time period is included. [facility] Anisocytosis 1+(A) None 01/30/2018 10:03 AM CDT [facility] Poikilocytosis 2+(A) None 01/30/2018 10:03 AM CDT [facility] Polychromasia Occasional (A) None 01/30/2018 10:03 AM CDT [facility] Elliptocytes Occasional (A) None 01/30/2018 10:03 AM CDT [facility] Schistocytes Occasional (A) None 01/30/2018 10:03 AM CDT [facility] Sickle Cells Occasional (A) None 01/30/2018 10:03 AM CDT [facility] Target Cells 3+(A) None 01/30/2018 10:03 AM CDT [facility] Blood BLOOD SPECIMEN / Unknown Venipuncture / Unknown 01/30/2018 9:17 AM CDT 01/30/2018 9:17 AM CDT Moi Martinez MD LAB - HEMATOLOGY ORD ERABLES [facility] [address] [place] [address] * XR CHEST PA AND LATERAL (01/06/2018 [...] included. Opiates Negative Cutoff=30 0 ng/mL [facility] ([facility]) Comment: Opiate test includes Codeine, Morphine, Hydromorphone, Hydrocodone. Confirmation performed by Mass Spectrometry 06/25/2017 10:5 1 AM CDT 06/25/2017 Narrative [facility] ([facility]) - 07/02/2017 12:14 PM CDT Performed at: 01 - [facility] [address] [place], [place] [id number] Lead Php Developer: Fraooq Yusuf MD, Phone: [phone] Maria C Foreman MD LAB - URINE CHEMISTR Y ORDERABLES [facility] ([facility]) [address] [place] [address], [facility] * DRUG ABUSE PANEL 10-20+ETHANOL URINE NO CONFIRM (06/25/2017 10:51 AM CDT) Only the most recent of3 resultswithin the time period is included. Amphetamines Screen Urine Negative Cutoff=1 000 ng/mL [facility] ([facility]) Comment:Amphetamine test inc ludes Amphetamine and Methamphetamine. Barbiturates Screen Negative Cutoff=2 00 ng/mL [facility] ([facility]) Benzodiazepine Screen Urine Negative Cutoff=2 00 ng/mL [facility] ([facility]) Cannabinoids Screen Urine Negative Cutoff=2 0 ng/mL [facility] ([facility]) Cocaine Metabolite Negative Cutoff=3 00 ng/mL [facility] ([facility]) Opiates See Final Results Cutoff=3 00 ng/mL [facility] ([facility]) Comment:Opiate test includes Codeine, Morphine, Hydromorphone, Hydrocodone. Oxycodone Urine Negative Cutoff=3 00 ng/mL [facility] ([facility]) Comment:Test includes Oxycod one and Oxymorphone Phencyclidine Urine Negative Cutoff=2 5 ng/mL [facility] ([facility]) Methadone Screen Urine See Final Results Cutoff=3 00 ng/mL [facility] ([facility]) Propoxyphene Negative Cutoff=3 00 ng/mL [facility] ([facility]) Meperidine Negative Cutoff=2 00 ng/mL [facility] ([facility]) Comment: This test was developed and its performance characteristics determined by [facility]. It has not been cleared or approved by the Food and Drug Administration. Ethanol Quantitative Urine Negative Cutoff=0 .020 % [facility] ([facility]) Creatinine Urine 115.9 20.0 - 300.0 mg/dL [facility] ([facility]) 06/25/2017 10:5 1 AM CDT 06/25/2017 Narrative [facility] ([facility]) - 07/02/2017 12:14 PM CDT Performed at: - [facility] [address], [place] [id number] Lead Php Developer: Farooq Yusuf MD, Phone: [phone] Maria C Foreman MD LAB - URINE CHEMISTR Y ORDERABLES [facility] ([facility]) [address] [place] [address], [facility] * (ABNORMAL) PANEL [id number] (06/25/2017 10:51 AM CDT) Only the most recent of2 resultswithin the time period is included. Methadone Positive( A) Cutoff=30 0 [facility] ([facility]) Methadone GC/MS Confirmation 1160 Cutoff=10 0 ng/mL [facility] ([facility]) 06/25/2017 10:5 1 AM CDT 06/25/2017 Narrative [facility] ([facility]) - 07/02/2017 12:14 PM CDT Performed at: - [facility] [address], [place] [id number] Lead Php Developer: Farooq Yusuf MD, Phone: [phone] Maria C Foreman MD LAB - CHEMISTRY [facility]IO GRANT Performing Organization Address City/[facility]/ZIP Co de Phone Number [facility] ([facility]) [address] [place] [address], [facility] * FERRITIN (06/25/2017 10:42 AM CDT) Only the most recent of2 resultswithin the time period is included. Ferritin 176 30 - 400 ng/mL [facility] ([facility]) Blood specimen (specimen) BLOOD SPECIMEN / Unknown 06/25/2017 10:42 AM CDT 06/25/2017 Narrative [facility] ([facility]) - 06/26/2017 5:13 AM CDT Performed at: [facility] [id number] Lead Php Developer: Saeed Singleton PhD, Phone: [phone] Maria C Foreman MD LAB - CHEMISTRY [facility] Performing Organization Address City/[facility]/ZIP Co de Phone Number [facility] ([facility]) [address] [place] [address], [facility] * (ABNORMAL) VITAMIN D 25-HYDROXY (05/07/2017 11:10 AM ZIPPER IRONER) Vitamin D, 25 Hydroxy 5.5(L) 30.0 - 100.0 ng/mL [facility] ([facility]) Comment: Vitamin D deficiency has been defined by the [place] of Medicine and an Endocrine Society practice guideline as a level of serum 25-OH vitamin D less than 20 ng/mL (1,2). The Endocrine Society went on to further define vitamin D insufficiency as a level between 21 and 29 ng/mL (2). 1. IOM ([place] of Medicine). 2010. Dietary reference intakes for calcium and D. [place]: The National Academies Press. 2. Olvin MF, Armando CHONG, Yesenia RUBY, et al. Evaluation, treatment, and prevention of vitamin D deficiency: an Endocrine Society clinical practice guideline. JCEM. 2010; 96(7):1911-30. Blood specimen (specimen) BLOOD SPECIMEN / Unknown 05/07/2017 11:10 AM ZIPPER IRONER 05/07/2017 Narrative [facility] ([facility]) - 05/08/2017 6:13 AM ZIPPER IRONER Performed at: [place] [id number] [place], [place] [id number] Lead Php Developer: Saeed Singleton PhD, Phone: [phone] Sonido Cid MD LAB - CHEMISTRY [facility] Organization Address City/State/ZIP Co de Phone Number [facility] ([facility]) [address] [place] [address], [facility] * (ABNORMAL) OXYCODONE URINE CONFIRMATION (03/12/2017 10:24 AM ZIPPER IRONER) Oxycodone/Oxymo rphone Positive(A) Cutoff=30 0 [facility] ([facility]) Comment:Test includes Oxycod one and Oxymorphone Oxycodone Negative Cutoff=30 0 [facility] ([facility]) Oxymorphone Positive(A) [facility] ([facility]) Oxymorphone GC/MS 825 Cutoff=30 0 ng/mL [facility] ([facility]) 03/12/2017 10:2 4 AM ZIPPER IRONER 03/12/2017 Narrative [facility] ([facility]) - 03/16/2017 7:10 AM ZIPPER IRONER Performed at: [facility] [address], [place] [id number] Lead Php Developer: Farooq Yusuf MD, Phone: [phone] Maria C Foreman MD LAB - URINE CHEMISTR Y ORDERABLES Performing Organization Address [facility]/ZIP Co de Phone Number [facility] ([facility]) [address] [place] [address], [place] * URINALYSIS REFLEX TO MICROSCOPIC NO CULTURE (03/12/2017 10:24 AM ZIPPER IRONER) Specific [place] 1.010 1.005 - 1.030 [facility] pH [...] follows if indicated. 03/12/2017 10:2 4 AM ZIPPER IRONER 03/12/2017 Narrative [facility] - 03/12/2017 11:55 AM ZIPPER IRONER Performed at: [address] [place] [id number] Lead Php Developer: Tonya Alexander MD, Phone: [phone] Maria C Foreman MD LAB - URINALYSIS ORD ERABLES [facility] [address] [place] [address]
--- OUTSIDE RECORDS SUMMARY | 2024-06-01 18:45 | XMS_ITS | Encounter Summary ---
Author Organization [facility] Address [address] [place] [address] Care Team Providers Care Preparation Department Supervisor Name Role Phone Unavailable Primary Care Provider Unavailabl e Reason for Visit * Reason Comments Med Refill Encounter Details Date Type Department Care Team (Late Contact Info) Description 04/13/2022 Refill [facility] Oncology and Hematology [facility] [address] [place] [address] Jone Marks MD [address] [place] [address] [employer] [address] [place] [address] 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) Social History Tobacco Use Types Packs/Day Years [...] st Contact Info) Description 06/15/2024 Orders Only [facility] Oncology [facility] Hematology [facility] [address] [place] [address] [place] [address] [place] [address] [employer] [address] [place] [phone] Other acute pulmonary embolism without acute cor pulmonale ([facility]/HCC) 07/20/2024 1:00 PM CDT Office Visit [facility] Oncology and Hematology [facility] [address] [facility] [address] [place] [address] Jone Marks MD [address] [facility] [address] [place] [address] documented as of this encounter Visit Diagnoses Diagnosis 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
--- OUTSIDE RECORDS SUMMARY | 2024-06-01 18:45 | XMS_ITS | Referral Summary ---
Author Organization [facility] Address [address] [facility] [place] [address] Care Team Providers Care Coil Taper Name Role Phone Unavailable Primary Care Provider Unavailabl e Source Comments [facility],non-owned Affiliates and Associated Physician Practices is amultiple site organization consisting of ambulatory clinics and hospital sitesin [place], [place], [place] and [place]. This disclosure is being madepursuant to the Care Everywhere program and may not contain all information available regarding this patient. Last updated 18.[facility] [employer] Allergies Active Allergy Reactions Criticality Noted Date [...] care, and heating? Not very hard 12/15/2023 [facility] [place] of Occupat ional Health - Occupational Stress [...] place to sleep or slept in a residential (including now)? No 12/15/2023 Sex and Gender [...] - 295 mOsm/kg 12/26/2023 3:11 AM CDT [facility] Albumin/Globulin Ratio 0.5(L) 1.1 - 2.3 12/26/2023 3:11 AM CDT [facility] eGFR by CKD-EPI 83(L) >=90 mL/min/1.7 3 m2 12/26/2023 3:11 AM CDT [facility] Blood BLOOD SPECIMEN / Unknown Lab Venipuncture / Unknown 12/26/2023 1:54 AM CDT 12/26/2023 2:57 AM CDT Natalia Marks MD LAB - CHEMISTRY NA[facility]ARIO GRANT Performing Organization Address City/[facility]/ZIP Co de Phone Number [address] [address], [facility] [phone] * HEPATITIS C AB SCREEN RFLX NAAT QUANT (12/19/2023 5:04 AM CDT) Hepatitis C Antibody Non-react daniel Non-reac tive 12/19/2023 6:17 AM CDT [facility] Comment:Hepatitis C Antibody screen indicates no serologic [...] Damon MD LAB - CHEMISTRY [facility] [address] [address], [place] [phone] * HIV-1 HIV-2 ANTIBODY + HIV P24 AG PANEL (12/19/2023 5:04 AM CDT) HIV Antigen/Antibod y 1 & 2 Non-reacti ve Non-react daniel 12/19/2023 6:17 AM CDT [facility] Comment:No Laboratory eviden ce of HIV infection. Blood BLOOD SPECIMEN / Unknown Venipuncture / Unknown 12/19/2023 5:04 AM CDT 12/19/2023 5:08 AM CDT German Damon MD LAB - CHEMISTRY NA[facility]IO GRANT Performing Organization Address City/[facility]/ZIP Co de Phone Number [facility] [address] [place] [address], [place] [phone] * (ABNORMAL) LIPID PROFILE (12/18/2023 3:46 AM CDT) [facility] Cholesterol Total 100 <200 mg/dL 12/18/2023 4:46 AM CDT [facility] HDL 7(L) >40 mg/dL 12/18/2023 4:46 AM T [facility] Comment: ATP III Classification of HDL Cholesterol: <40 mg/dL: Considered a major risk factor. >60 mg/dL: Considered a negative risk factor. LDL Calculated 54 <100 mg/dL 12/18/2023 4:46 AM T [facility] Comment: ATP III Classification of LDL Cholesterol: <100 mg/dL: Optimal 100 - 129 mg/dL: Near Optimal/Above Optimal 130 - 159 mg/dL: Borderline High 160 - 189 mg/dL: High >190 mg/dL: Very High Triglycerides 195(H) <150 mg/dL 12/18/2023 4:46 AM T [facility] Comment: ATP III Classification of Triglycerides: <150 mg/dL: Normal 150 - 199 mg/dL: Borderline High 200 - 400 mg/dL: High >500 mg/dL: Very High Blood BLOOD SPECIMEN / Unknown Venipuncture / Unknown 12/18/2023 3:46 AM CDT 12/18/2023 4:14 AM CDT German Damon MD LAB - CHEMISTRY NAZARIO GRANT [facility] [address] [place] [address], [place] [phone] from Last 3 Months or Most Recently Relevant to Health Maintenance Advance Directives * Full Code (Latest Code Status on File) Date Activated Date Inactivated Comments 12/15/2023 10:14 PM 12/29/2023 3:08 PM
--- OUTSIDE RECORDS SUMMARY | 2024-06-01 18:45 | XMS_ITS | Clinical Summary ---
Author Organization [facility] Address [address] [place] [address] Care Team Providers Care Supervisor Ovens Name Role Phone Jone Marks MD Primary Care Provider [phone] Allergies Active Allergy Reactions Criticality Noted Date [...] Department Care Team Description 04/27/2024 11:00 AM WEAPONS DESIGNER - 04/27/2024 11:59 PM WEAPONS DESIGNER Hospital Encounter [facility] [address] [place], [place] [id number] Chronic kidney disease, stage 2 (mild); Essential [...] on file Legal Sex Male 12:32 AM WEAPONS DESIGNER Gender Identity Not on file Sexual Orientation [...] Read Routine (OP Routine) 04/27/2024 11:37 AM WEAPONS DESIGNER Chronic kidney disease, stage 2 (mild) Essential (primary) hypertension from Last 3 Months Results * US Kidney Complete (04/27/2024 11:37 AM WEAPONS DESIGNER) Anatomical Region Laterality Modality Kidney N/A Ultrasound 04/28/2024 9:47 AM WEAPONS DESIGNER Narrative 04/28/2024 9:51 AM WEAPONS DESIGNER EXAM DESCRIPTION: US KIDNEY COMPLETE REASON FOR [...] Raphael Suárez M.D. LEONORA: LEONORA Report ID: [id number] Reading Location: [id number] Procedure Note Laurent Suárez MD - 04/28/2024 [...] Raphael Suárez M.D. LEONORA: LEONORA Report ID: [id number] Reading Location: [id number] us Carlos Canseco MD IM US PROCEDURES Final Resul t from Last 3 Months Insurance [facility] Member Subscriber Plan / Payer (Ef fective 2019-Present) Name:Chang Craigdanielle Bart Relation to Subscriber:Self Name:Quan Downing Bart Payer ID:[id number] (NAIC) Group ID:Not on file Type:MEDICAID RISK OTHER Address: [address] [id number] MEDICARE [facility] [place] MEDICARE Advance Directives For more information, please contact: [phone] * Full Code (Latest Code Status on [...] Agents on File Name Relationship Healthcare Agent [facility] p Communication Ya Lutherw Friend Health Care Agent Paulette Rios Mother Health Care Agent Care Teams Supervisor Ovens Relationship Specialty Start Date End Date Jnoe Marks MD [address] [address] [facility] - General 01/26/19
--- OUTSIDE RECORDS SUMMARY | 2024-06-01 18:46 | XMS_ITS | Clinical Summary ---
Author Organization [facility] Address [address] [place] [address] Phone Care Team Providers Care Cutter Helper Name Role Phone Provider, None Primary Care [...] Description 03/11/2024 Telephone [facility] [address] [place] [address] Gen Koch, FIELD SECRETARY, WELT STITCH CLEANER from Last 3 Months Immunizations Immunization Administration [...] measures to stabilize the patient. Care Teams Cutter Helper Relationship Specialty Start Date End Date Provider, None [place] PCP - General 11/28/18
--- OUTSIDE RECORDS SUMMARY | 2024-06-01 18:46 | XMS_ITS | Clinical Summary ---
Author Organization [facility] Facility Address [address] [place] [address] Care Team Providers Care Mat Roller Name Role Phone Unavailable Primary Care Provider [...] Department Care Team Description 04/14/2024 10:30 AM INCUBATOR MACHINE OPERATOR Office Visit [facility]. [address] [facility] [address] [place] [address] Carlos Canseco MD Chronic kidney disease, stage 2 (mild) (Primary Dx); Sickle cell nephropathy (HCC); Hypertension 04/13/2024 Documentation Only [facility] JoannRasheeda Snow [facility] [address] [id number] Sury Patel MA from Last 3 Months [...] Comments Blood Pressure 120/72 04/14/2024 10:45 AM INCUBATOR MACHINE OPERATOR Pulse 80 04/14/2024 10:45 AM INCUBATOR MACHINE OPERATOR Temperature 36.7 C (98.1 F) 04/14/2024 10:45 AM INCUBATOR MACHINE OPERATOR Respiratory Rate - - Oxygen Saturation 97% 04/14/2024 10:45 AM INCUBATOR MACHINE OPERATOR Inhaled Oxygen Concentration - - Weight 104 kg (229 lb) 04/14/2024 10:45 AM INCUBATOR MACHINE OPERATOR Height 177.8 cm (5' 10 ) 04/14/2024 10:45 AM INCUBATOR MACHINE OPERATOR Body Mass Index 32.86 04/14/2024 10:45 AM INCUBATOR MACHINE OPERATOR Plan of Treatment Health Maintenance Due Date Last Done Comments Pneumococcal Vaccine: Pediat rics (0 to 5 Years) and At-Risk Patients (6 to 64 Years) (1 of 2 - PCV) 1989 Hepatitis B Vaccine (1 of 3 - 19+ 3-dose series) 2002 Influenza Vaccine (#1) 2023 0, 01/01/2019, 01/16/2018, Additional history exists Insurance MEDICARE
--- OUTSIDE RECORDS SUMMARY | 2024-06-01 18:46 | XMS_ITS | Encounter Summary ---
Author Organization [facility] Address [address] [place] [address] Care Team Providers Care Optical Goods Drilling Machine Operator Name Role Phone Unavailable Primary Care Provider Unavailabl e Encounter Details Date Type Department Care Team (Late st Contact Info) Description 08/21/2021 History & Physical [facility] [address] [place] [address] Vonnie Portillo Social History Tobacco [...] (Late Contact Info) Description 06/15/2024 Orders Only [facility] [address] [place] [address] Jone Marks MD [address] [place] [address] Other acute pulmonary embolism without acute cor pulmonale (CMS/HCC) 07/20/2024 1:00 PM CDT Office Visit [facility] [address] [place] [address] Jone Marks MD [address] [address] documented as of this encounter Visit Diagnoses Not on filedocumented in this encounter
[2024-06-01] MEDS: LACTATED RINGERS 1,000 ML 100 ML IV CONT (21:00)
[2024-06-01] MEDS: diphenhydrAMINE HCl INJ 50 MG/ML VIAL 25 MG IV PUSH (22:43)
[2024-06-01] MEDS: HYDROmorphone HCL INJ (*CRX) 1 MG/ML SYR 3 MG IV PUSH (22:43)
[2024-06-02] VITALS (13 sets, daily range): BP systolic 110–123; BP diastolic 61–72; PULSE 79–105; RESP 18–20; TEMP 36.2–36.4; O2SAT 95–100
[2024-06-02] MEDS: diphenhydrAMINE HCl INJ 50 MG/ML VIAL 25 MG IV PUSH ×5 (02:50→21:45)
[2024-06-02] MEDS: HYDROmorphone HCL INJ (*CRX) 1 MG/ML SYR 3 MG IV PUSH ×5 (02:50→21:45)
[2024-06-02] MEDS: ENOXAPARIN 100 MG/ML SYRINGE SUB-Q ×2 (04:28→17:36)
[2024-06-02] MEDS: LACTATED RINGERS 1,000 ML 100 ML IV CONT ×3 (04:28→19:42)
[2024-06-02 05:53] LABS: Hematocrit 23.7 % (42.0-52.0); Hemoglobin 8.3 g/dL (14.0-18.0); Mean Corpuscular Hemoglobin 30.9 pg (26-34); Mean Corpuscular Volume 88.1 fl (80-100); Mean Platelet Volume 10.3 fl (7.4-10.4); Platelet Count Result 308 k/mm3 (150-375); Red Blood Count 2.69 M/mm3 (4.6-6.20); Red Cell Distribution Width 15.5 % (11.5-14.5); White Blood Count 27.2 K/mm3 (4.5-10.0)
[2024-06-02 06:05] LABS: Alanine Aminotransferase 14 U/L (6-50); Albumin Level 3.8 g/dL (3.5-5.1); Alkaline Phosphatase 79 U/L (38-126); Anion Gap 11 mmol/L (4-12); Aspartate Amino Transferase 20 U/L (17-59); Bilirubin,Total 1.5 mg/dL (0.2-1.3); Blood Urea Nitrogen 7 mg/dL (9-20); Calcium 8.7 mg/dL (8.4-10.2); Carbon Dioxide 23 mmol/L (22-30); Chloride 108 mmol/L (98-107); Estimated CRCL calculation 131 ml/min; Estimated Glomerular Filt Rate > 60; Glucose 103 mg/dL (65-110); Magnesium 2.1 mg/dL (1.6-2.3); Potassium 3.9 mmol/L (3.4-5.0); Sodium 142 mmol/L (137-145)
[2024-06-02] MEDS: FOLIC ACID 1 MG TABLET PO (08:34)
[2024-06-02] MEDS: HYDROXYUREA (*CHEMO) 500 MG CAPSULE PO (08:34)
[2024-06-02] MEDS: OSELTAMIVIR PHOSPHATE 75 MG CAPSULE PO ×2 (08:34→19:42)
--- NOTE | 2024-06-02 11:06 | P.PNIM_ITS ---
Progress Note: A&P Assessment and Plan (1) Pulmonary embolism: Qualifiers: Acute cor pulmonale presence: without acute cor pulmonale Chronicity: acute Pulmonary embolism type: unspecified Qualified Code(s): I26.99 - Other pulmonary embolism without acute cor pulmonale Code(s): I26.99 - Other pulmonary embolism without acute cor pulmonale Status: Chronic (2) Influenza A: Code(s): J10.1 - Influenza due to other identified influenza virus with other respiratory manifestations Status: Acute (3) Sickle-cell disease with vaso-occlusive pain: Code(s): D57.00 - Hb-SS disease with crisis, unspecified Status: Acute Plan The patient presented to the emergency department with complaints of cough and other symptoms as detailed in the HPI. Labs, imaging, EKG, and all reports were personally reviewed. He tested positive for influenza A and he has been started on Tamiflu. Chest CTA showed a single pulmonary embolism in the anterior segmental pulmonary artery of the right upper lobe without evidence of heart strain. He has been started on enoxaparin 1 milligram/kilogram b.i.d.. He was previously on warfarin however it was stopped last fall for reasons unknown to the patient. Ideally we would like to start the patient on a DOAC given history of frequent subtherapeutic INRs however this would need to be preauthorized by his insurance. His hemoglobin is stable on review of previous labs and will be monitored. Analgesics available as needed for vaso-occlusive pain crisis. WBC count is quite elevated but it has been above 20 the last several months. There is no evidence to suggest bacterial infection at this time although he had bacteremia last fall thus will obtain blood cultures. Vital signs are stable. His home medications will be reviewed and resumed as appropriate. Findings and treatment plan were discussed with the patient. Questions were solicited and answered to satisfaction. The patient's medical management will be taken over by the hospitalist team in a.m. 06/02: Sickle cell disease with vessel occlusion pain Patient is afebrile, blood pressure stable White blood cell is trending, hemoglobin 8.3 Continue hydroxyurea 500 mg daily p.o., fluid resuscitation with a drinker 100 mL, Continue pain management, patient is on hydro morphine 3 mg IV push q3 hours, Consult heme oncologist for evaluation treatment Acute pulmonary embolism CT showed Single pulmonary embolism in the anterior segmental pulmonary artery of the right upper lobe. No evident right heart strain. Continue Lovenox 1 milligram/kilos q.12 hour subcu Suspecting pneumonia Due to flu infection possible superimposed with bacteria infection X-ray shows possible atelectasis or pneumonia Continue Tamiflu 75 mg q.12 hours p.o. for flu a infection Start Levaquin 750 mg daily IV Subjective Date/time seen: 06/02/24 11:06 Interval history: I saw examined the patient today, patient feels pain is well controlled, still has shortness breath, has cough with scant phlegm. Patient is afebrile, patient is on 2 L oxygen Exam Narrative: GENERAL: Ill-appearing in no acute distress. Well-nourished. - EYES: EOMI. Anicteric. - HENT: Moist mucous membranes. - LUNGS: Coarse breath sound bilaterall y bilaterally, no wheezing, rhonchi, or rales. - CARDIOVASCULAR: Regular rate and rhyth m. No murmur. No JVD. - ABDOMEN: Soft, non-tender and non-dist ended. No palpable masses. - EXTREMITIES: No edema. Peripheral puls es 2+. Non-tender. - NEUROLOGIC: No focal neurological defi cits. CN II-XII grossly intact. - PSYCHIATRIC: Awake, Alert and oriented x 3. Lethargic mood and affect. - SKIN: No rashes or lesions. Warm. - LYMPH: No cervical lymphadenopathy. Objective Data Vital Signs Vital Signs: Vital Signs - 24 hr 06/01/24 12:59 06/01/24 15:00 06/01/24 16:34 Temperature Pulse Rate 96 100 99 Respiratory Rate 16 16 16 Blood Pressure 111/70 116/72 117/76 Pulse Oximetry 95 94 99 Oxygen Delivery Oxygen Flow Rate 06/01/24 20:00 06/01/24 20:00 06/01/24 21:19 Temperature 98.9 F Pulse Rate 114 H 113 H Respiratory Rate 16 Blood Pressure 118/58 L Pulse Oximetry 94 Oxygen Delivery Room Air Oxygen Flow Rate 06/02/24 00:00 06/02/24 04:00 06/02/24 05:45 Temperature Pulse Rate 105 H 94 Respiratory Rate Blood Pressure Pulse Oximetry 96 Oxygen Delivery Nasal Cannula Oxygen Flow Rate 2 06/02/24 06:00 06/02/24 08:00 Temperature 97.1 F L Pulse Rate 95 95 Respiratory Rate 18 18 Blood Pressure 114/63 Pulse Oximetry 97 97 Oxygen Delivery Nasal Cannula Oxygen Flow Rate 2 Intake/Output Intake/Output: Intake & Output 05/30/24 05/31/24 06/01/24 06/02/24 23:59 23:59 23:59 23:59 Intake Total 1999 1186.7 Output Total 1000 Balance 1999 186.7 Meds/Results Medications: Active Medications Generic Name Dose Route Start Last Admin Trade Name Freq PRN Reason Stop Dose Admin Dextrose 12.5 gm 06/01/24 13:17 Dextrose 50% 25 Gm/50 Ml Syringe IV PUSH PRN PRN Hypoglycemia Protocol Diphenhydramine HCl 25 mg 06/01/24 18:56 06/02/24 08:34 Diphenhydramine Hcl Inj 50 Mg/Ml Vial IV PUSH 25 mg Q4H PRN Administration Itching Enoxaparin Sodium 100 mg 06/02/24 06:00 06/02/24 04:28 Enoxaparin 100 Mg/Ml Syringe SUB-Q 100 mg Q12H CHRISTOPHER Administration Folic Acid 1 mg 06/02/24 09:00 06/02/24 08:34 Folic Acid 1 Mg Tablet PO 1 mg DAILY CHRISTOPHER Administration Glucagon 1 mg 06/01/24 13:17 Glucagon For Inj 1 Mg Vial IM PRN PRN Hypoglycemia Protocol Glucose 15 gm 06/01/24 13:17 Glucose Oral Gel 15 Gm Of Glucse In 37.5 Gm Tube PO PRN PRN Hypoglycemia Protocol Hydromorphone HCl 3 mg 06/01/24 21:07 06/02/24 08:34 Hydromorphone Hcl Inj (*Crx) 1 Mg/Ml Syr IV PUSH 3 mg Q3H PRN Administration Pain Rated 7-10 Hydroxyurea 500 mg 06/02/24 09:00 06/02/24 08:34 Hydroxyurea (*Chemo) 500 Mg Capsule PO 500 mg QAM CHRISTOPHER Administration Dextrose 1,000 mls @ 100 mls/hr 06/01/24 13:17 Dextrose 5% 1,000 Ml IVPB PRN PRN Hypoglycemia Protocol Lactated Ringer's 1,000 mls @ 100 mls/hr 06/01/24 19:10 06/02/24 04:28 Lr - Lactated Ringers Iv IV CONT 100 mls/hr .Q10H CHRISTOPHER Administration Ibuprofen 600 mg 06/01/24 19:07 Ibuprofen 600 Mg Tablet PO Q6H PRN Pain Rated 1-3 Ondansetron HCl 4 mg 06/01/24 13:17 Ondansetron Inj 4 Mg/2 Ml Vial IV PUSH Q4H PRN Nausea Oseltamivir Phosphate 75 mg 06/01/24 21:00 06/02/24 08:34 Oseltamivir Phosphate 75 Mg Capsule PO 06/06/24 20:59 75 mg Q12HR CHRISTOPHER Administration Radiology Results: ITS Impressions Chest X-Ray 06/01/24 10:23 Impression: Discoid left basilar atelectasis or scarring, otherwise clear lungs. Chest CTA 06/01/24 12:12 IMPRESSION: 1. Single pulmonary embolism in the anterior segmental pulmonary artery of the right upper lobe. No evident right heart strain. Dr. Washington discussed these findings with Dr. Beaulieu at 12:22 PM. 2. Moderate atelectasis in the bilateral lung bases. 3. 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 Constellation of findings would be most consistent with sequela of sickle cell disease. 4. Tiny gallstone. Venous Doppler Study 06/01/24 21:22 IMPRESSION: Patent bilateral lower extremity veins. No evidence of deep venous thrombosis. Labs Labs: Laboratory Results - last 24 hr 06/01/24 06/02/24 10:42 05:31 WBC 33.7 H 27.2 H RBC 3.10 L 2.69 L Hgb 9.7 L 8.3 L Hct 28.1 L 23.7 L MCV 90.6 88.1 MCH 31.3 30.9 MCHC 34.5 35.0 RDW 15.2 H 15.5 H Plt Count 348 D 308 MPV 10.5 H 10.3 Immature Gran % (Auto) 0.9 H Neut % (Auto) 81.0 H Lymph % (Auto) 6.[address] [place] % (Auto) 11.7 H Eos % (Auto) 0.0 Baso % (Auto) 0.2 Lymph # (Auto) 2.09 [place] # (Auto) 3.9 H Eos # (Auto) 0.0 Baso # (Auto) 0.1 Abs Immat Gran (auto) 0.30 H Absolute Neuts (auto) 27.3 H Absolute Nucleated RBC 0.060 H Nucleated RBC % 0.2 Absolute Retic 0.17 H Percent Retic 5.53 H Immature Retic Fraction 27.0 H Retic Hgb Content 28.9 PT 15.4 H INR 1.2 APTT 30.0 D-Dimer 2.42 H Sodium 144 142 Potassium 3.8 3.9 Chloride 107 108 H Carbon Dioxide 25 23 Anion Gap 12 11 BUN 8 L D 7 L Creatinine 0.80 0.76 Estim Creat Clear Calc 125 131 Estimated GFR > 60 > 60 Glucose 120 H 103 Calcium 9.3 8.7 Magnesium 2.4 H 2.1 Total Bilirubin 1.3 1.5 H AST 32 20 ALT 18 14 Alkaline Phosphatase 78 79 Lactate Dehydrogenase 265 H Troponin I < 0.012 Total Protein 9.0 H 8.0 Albumin 4.3 3.8
[2024-06-02] MEDS: levoFLOXacin 750 MG/D5W 150 ML 750 MG/150 ML BAG 100 MG IVPB (17:36)
[2024-06-02] MEDS: IPRATROPIUM 0.5 MG/ALBUTEROL SULFATE 2.5 MG AMPUL.NEB 3 ML INHALATION (20:43)
[2024-06-03] VITALS (17 sets, daily range): BP systolic 108–122; BP diastolic 56–67; PULSE 69–98; RESP 18–20; TEMP 36.3–36.8; O2SAT 94–100
[2024-06-03] MEDS: HYDROmorphone HCL INJ (*CRX) 1 MG/ML SYR 3 MG IV PUSH ×4 (01:51→14:44)
[2024-06-03] MEDS: diphenhydrAMINE HCl INJ 50 MG/ML VIAL 25 MG IV PUSH ×6 (01:52→23:53)
[2024-06-03] MEDS: IPRATROPIUM 0.5 MG/ALBUTEROL SULFATE 2.5 MG AMPUL.NEB 3 ML INHALATION ×4 (02:45→20:22)
[2024-06-03] MEDS: ENOXAPARIN 100 MG/ML SYRINGE SUB-Q ×2 (05:53→17:41)
[2024-06-03] MEDS: FOLIC ACID 1 MG TABLET PO (09:15)
[2024-06-03] MEDS: HYDROXYUREA (*CHEMO) 500 MG CAPSULE PO (09:15)
[2024-06-03] MEDS: OSELTAMIVIR PHOSPHATE 75 MG CAPSULE PO ×2 (09:15→20:59)
--- NOTE | 2024-06-03 09:27 | P.PNIM_ITS ---
Progress Note: A&P Assessment and Plan (1) Pulmonary embolism: Qualifiers: Acute cor pulmonale presence: without acute cor pulmonale Chronicity: acute Pulmonary embolism type: unspecified Qualified Code(s): I26.99 - Other pulmonary embolism without acute cor pulmonale Code(s): I26.99 - Other pulmonary embolism without acute cor pulmonale Status: Chronic (2) Influenza A: Code(s): J10.1 - Influenza due to other identified influenza virus with other respiratory manifestations Status: Acute (3) Sickle-cell disease with vaso-occlusive pain: Code(s): D57.00 - Hb-SS disease with crisis, unspecified Status: Acute Plan The patient presented to the emergency department with complaints of cough and other symptoms as detailed in the HPI. Labs, imaging, EKG, and all reports were personally reviewed. He tested positive for influenza A and he has been started on Tamiflu. Chest CTA showed a single pulmonary embolism in the anterior segmental pulmonary artery of the right upper lobe without evidence of heart strain. He has been started on enoxaparin 1 milligram/kilogram b.i.d.. He was previously on warfarin however it was stopped last fall for reasons unknown to the patient. Ideally we would like to start the patient on a DOAC given history of frequent subtherapeutic INRs however this would need to be preauthorized by his insurance. His hemoglobin is stable on review of previous labs and will be monitored. Analgesics available as needed for vaso-occlusive pain crisis. WBC count is quite elevated but it has been above 20 the last several months. There is no evidence to suggest bacterial infection at this time although he had bacteremia last fall thus will obtain blood cultures. Vital signs are stable. His home medications will be reviewed and resumed as appropriate. Findings and treatment plan were discussed with the patient. Questions were solicited and answered to satisfaction. The patient's medical management will be taken over by the hospitalist team in a.m. 06/03: Sickle cell disease with vessel occlusion pain Patient is afebrile, blood pressure stable White blood cell is trending, hemoglobin 8.3 Continue hydroxyurea 500 mg daily p.o., fluid resuscitation with LR 100 mL/h Continue pain management, patient is on hydro morphine 3 mg IV push q3 hours, Consult heme oncologist for evaluation treatment, pending consultation Acute pulmonary embolism CT showed Single pulmonary embolism in the anterior segmental pulmonary artery of the right upper lobe. No evident right heart strain. Continue Lovenox 1 milligram/kilos q.12 hour subcu Suspecting pneumonia Due to flu infection possible superimposed with bacteria infection X-ray shows possible atelectasis or pneumonia Continue Tamiflu 75 mg q.12 hours p.o. for flu a infection Start Levaquin 750 mg daily IV 06/02 Patient still has cough and has yellow greenish sputum. Leukocytosis improving, Subjective Date/time seen: 06/03/24 09:27 Interval history: I saw examined the patient today, patient feels pain is well controlled, still has shortness breath with exertion, has cough with yellow-greenish sputum. Patient is afebrile, patient is on 2 L oxygen Exam Narrative: GENERAL: Ill-appearing in no acute distress. Well-nourished. - EYES: EOMI. Anicteric. - HENT: Moist mucous membranes. - LUNGS: Coarse breath sound bilaterall y bilaterally, no wheezing, rhonchi, or rales. - CARDIOVASCULAR: Regular rate and rhyth m. No murmur. No JVD. - ABDOMEN: Soft, non-tender and non-dist ended. No palpable masses. - EXTREMITIES: No edema. Peripheral puls es 2+. Non-tender. - NEUROLOGIC: No focal neurological defi cits. CN II-XII grossly intact. - PSYCHIATRIC: Awake, Alert and oriented x 3. Lethargic mood and affect. - SKIN: No rashes or lesions. Warm. - LYMPH: No cervical lymphadenopathy. Objective Data Vital Signs Vital Signs: Vital Signs - 24 hr 06/02/24 12:00 06/02/24 14:00 06/02/24 16:00 Temperature 97.3 F L Pulse Rate 81 79 86 Respiratory Rate 19 Blood Pressure 110/72 Pulse Oximetry 97 Oxygen Delivery Oxygen Flow Rate 06/02/24 19:46 06/02/24 20:00 06/02/24 20:45 Temperature Pulse Rate 90 93 Respiratory Rate 20 Blood Pressure Pulse Oximetry 95 Oxygen Delivery Nasal Cannula Oxygen Flow Rate 2 06/02/24 20:55 06/02/24 20:55 06/02/24 22:15 Temperature 97.6 F Pulse Rate 95 93 Respiratory Rate 20 20 Blood Pressure 123/61 Pulse Oximetry 100 100 Oxygen Delivery Nasal Cannula Oxygen Flow Rate 2 06/03/24 00:00 06/03/24 02:48 06/03/24 04:00 Temperature Pulse Rate 87 79 93 Respiratory Rate 20 Blood Pressure Pulse Oximetry Oxygen Delivery Oxygen Flow Rate 06/03/24 06:00 06/03/24 07:28 06/03/24 07:28 Temperature 97.7 F Pulse Rate 91 82 Respiratory Rate 20 20 Blood Pressure 122/67 Pulse Oximetry 99 97 Oxygen Delivery Nasal Cannula Oxygen Flow Rate 1 06/03/24 07:40 Temperature Pulse Rate 69 Respiratory Rate 20 Blood Pressure Pulse Oximetry Oxygen Delivery Oxygen Flow Rate Intake/Output Intake/Output: Intake & Output 05/31/24 06/01/24 06/02/24 06/03/24 23:59 23:59 23:59 23:59 Intake Total 1999 4315.0 800 Output Total 1400 1999 Balance 1999 2915.0 -1200 Meds/Results Medications: Active Medications Generic Name Dose Route Start Last Admin Trade Name Freq PRN Reason Stop Dose Admin Albuterol/Ipratropium 3 ml 06/02/24 20:00 06/03/24 07:28 Ipratropium 0.5 Mg/Albuterol Sulfate 2.5 Mg Ampul.Neb 3 Ml INHALATION 3 ml Q6HRT CHRISTOPHER Administration Dextrose 12.5 gm 06/01/24 13:17 Dextrose 50% 25 Gm/50 Ml Syringe IV PUSH PRN PRN Hypoglycemia Protocol Diphenhydramine HCl 25 mg 06/01/24 18:56 06/03/24 05:53 Diphenhydramine Hcl Inj 50 Mg/Ml Vial IV PUSH 25 mg Q4H PRN Administration Itching Enoxaparin Sodium 100 mg 06/02/24 06:00 06/03/24 05:53 Enoxaparin 100 Mg/Ml Syringe SUB-Q 100 mg Q12H CHRISTOPHER Administration Folic Acid 1 mg 06/02/24 09:00 06/03/24 09:15 Folic Acid 1 Mg Tablet PO 1 mg DAILY CHRISTOPHER Administration Glucagon 1 mg 06/01/24 13:17 Glucagon For Inj 1 Mg Vial IM PRN PRN Hypoglycemia Protocol Glucose 15 gm 06/01/24 13:17 Glucose Oral Gel 15 Gm Of Glucse In 37.5 Gm Tube PO PRN PRN Hypoglycemia Protocol Guaifenesin/Dextromethorphan 10 ml 06/02/24 16:16 Guaifenesin/Dextromethorphan 10 Ml Udc PO Q4H PRN Cough Hydromorphone HCl 3 mg 06/01/24 21:07 06/03/24 05:53 Hydromorphone Hcl Inj (*Crx) 1 Mg/Ml Syr IV PUSH 3 mg Q3H PRN Administration Pain Rated 7-10 Hydroxyurea 500 mg 06/02/24 09:00 06/03/24 09:15 Hydroxyurea (*Chemo) 500 Mg Capsule PO 500 mg QAM CHRISTOPHER Administration Dextrose 1,000 mls @ 100 mls/hr 06/01/24 13:17 Dextrose 5% 1,000 Ml IVPB PRN PRN Hypoglycemia Protocol Lactated Ringer's 1,000 mls @ 100 mls/hr 06/01/24 19:10 06/02/24 19:42 Lr - Lactated Ringers Iv IV CONT 100 mls/hr .Q10H CHRISTOPHER Administration Levofloxacin/Dextrose 750 mg in 150 mls @ 100 mls/hr 06/02/24 18:00 06/02/24 17:36 Levaquin 750 Mg/D5w 150 Ml IVPB 100 mls/hr Q24H CHRISTOPHER Administration Ibuprofen 600 mg 06/01/24 19:07 Ibuprofen 600 Mg Tablet PO Q6H PRN Pain Rated 1-3 Metoclopramide HCl 10 mg 06/02/24 16:14 Metoclopramide Hcl Inj 10 Mg/2 Ml Vial IV PUSH Q6H PRN Nausea And Vomiting Oseltamivir Phosphate 75 mg 06/01/24 21:00 06/03/24 09:15 Oseltamivir Phosphate 75 Mg Capsule PO 06/06/24 20:59 75 mg Q12HR CHRISTOPHER Administration Radiology Results: ITS Impressions Chest X-Ray 06/01/24 10:23 Impression: Discoid left basilar atelectasis or scarring, otherwise clear lungs. Chest CTA 06/01/24 12:12 IMPRESSION: 1. Single pulmonary embolism in the anterior segmental pulmonary artery of the right upper lobe. No evident right heart strain. Dr. Washington discussed these findings with Dr. Beaulieu at 12:22 PM. 2. Moderate atelectasis in the bilateral lung bases. 3. 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 Constellation of findings would be most consistent with sequela of sickle cell disease. 4. Tiny gallstone. Venous Doppler Study 06/01/24 21:22 IMPRESSION: Patent bilateral lower extremity veins. No evidence of deep venous thrombosis.
[2024-06-03] MEDS: LACTATED RINGERS 1,000 ML 100 ML IV CONT ×2 (09:31→20:57)
[2024-06-03 12:14] LABS: Basophils Absolute Auto 0.1 K/mm3 (0.0-0.1); Basophils Percent Auto 0.3 % (0.2-1.2); Eosinophils Absolute Auto 0.2 K/mm3 (0-0.3); Eosinophils Percent Auto 1.1 % (0-4.4); Hematocrit 23.8 % (42.0-52.0); Hemoglobin 8.3 g/dL (14.0-18.0); Immature Granulocyte Absolute 0.08 K/mm3 (0.00-0.031); Immature Granulocyte Percent A 0.5 % (0-0.5); Lymphocytes Absolute Auto 3.15 K/mm3 (0.9-3.2); Lymphocytes Percent Auto 19.4 % (18.3-44.2); Mean Corpuscular HGB Conc 34.9 g/dl (32-36); Mean Corpuscular Hemoglobin 30.9 pg (26-34); Mean Corpuscular Volume 88.5 fl (80-100); Mean Platelet Volume 11.2 fl (7.4-10.4); Monocytes Absolute Auto 2.2 K/mm3 (0.1-0.6); Monocytes Percent Auto 13.8 % (2.6-8.5); Neutrophils Absolute Auto 10.5 K/mm3 (1.3-6.7); Neutrophils Percent Auto 64.9 % (45.5-73.1); Nucleated Red Blood Cells Perc 0.2 % (0.0-0.2); Platelet Count Result 390 k/mm3 (150-375); Red Blood Count 2.69 M/mm3 (4.6-6.20); Red Cell Distribution Width 16.3 % (11.5-14.5); White Blood Count 16.2 K/mm3 (4.5-10.0)
[2024-06-03 12:38] LABS: Anion Gap 9 mmol/L (4-12); Blood Urea Nitrogen 6 mg/dL (9-20); Calcium 8.9 mg/dL (8.4-10.2); Carbon Dioxide 28 mmol/L (22-30); Chloride 103 mmol/L (98-107); Estimated CRCL calculation 138 ml/min; Estimated Glomerular Filt Rate > 60; Glucose 118 mg/dL (65-110); Potassium 3.3 mmol/L (3.4-5.0); Sodium 140 mmol/L (137-145)
[2024-06-03] MEDS: levoFLOXacin 750 MG/D5W 150 ML 750 MG/150 ML BAG 100 MG IVPB (17:40)
[2024-06-03] MEDS: HYDROmorphone HCL INJ (*CRX) 1 MG/ML SYR 2 MG IV PUSH ×3 (17:42→23:52)
[2024-06-04] VITALS (17 sets, daily range): BP systolic 97–124; BP diastolic 52–59; PULSE 75–100; RESP 16–20; TEMP 36.4–36.6; O2SAT 93–100
[2024-06-04] MEDS: IPRATROPIUM 0.5 MG/ALBUTEROL SULFATE 2.5 MG AMPUL.NEB 3 ML INHALATION ×3 (02:10→20:14)
[2024-06-04] MEDS: HYDROmorphone HCL INJ (*CRX) 1 MG/ML SYR 2 MG IV PUSH ×7 (02:50→22:52)
[2024-06-04] MEDS: ENOXAPARIN 100 MG/ML SYRINGE SUB-Q ×2 (05:50→17:45)
[2024-06-04] MEDS: LACTATED RINGERS 1,000 ML 100 ML IV CONT ×2 (05:50→16:12)
[2024-06-04] MEDS: diphenhydrAMINE HCl INJ 50 MG/ML VIAL 25 MG IV PUSH ×3 (05:50→19:53)
[2024-06-04 06:30] LABS: Basophils Absolute Auto 0.1 K/mm3 (0.0-0.1); Basophils Percent Auto 0.4 % (0.2-1.2); Eosinophils Absolute Auto 0.3 K/mm3 (0-0.3); Hematocrit 23.1 % (42.0-52.0); Immature Granulocyte Absolute 0.06 K/mm3 (0.00-0.031); Immature Granulocyte Percent A 0.5 % (0-0.5); Lymphocytes Absolute Auto 3.93 K/mm3 (0.9-3.2); Lymphocytes Percent Auto 29.6 % (18.3-44.2); Mean Corpuscular HGB Conc 34.6 g/dl (32-36); Mean Corpuscular Hemoglobin 30.2 pg (26-34); Mean Corpuscular Volume 87.2 fl (80-100); Mean Platelet Volume 9.9 fl (7.4-10.4); Monocytes Absolute Auto 1.7 K/mm3 (0.1-0.6); Monocytes Percent Auto 12.9 % (2.6-8.5); Neutrophils Absolute Auto 7.3 K/mm3 (1.3-6.7); Neutrophils Percent Auto 54.6 % (45.5-73.1); Nucleated Red Blood Cells Perc 0.3 % (0.0-0.2); Platelet Count Result 394 k/mm3 (150-375); Red Blood Count 2.65 M/mm3 (4.6-6.20); Red Cell Distribution Width 16.7 % (11.5-14.5); White Blood Count 13.3 K/mm3 (4.5-10.0)
[2024-06-04 06:46] LABS: Anion Gap 7 mmol/L (4-12); Blood Urea Nitrogen 4 mg/dL (9-20); Calcium 8.6 mg/dL (8.4-10.2); Carbon Dioxide 29 mmol/L (22-30); Chloride 104 mmol/L (98-107); Estimated CRCL calculation 154 ml/min; Estimated Glomerular Filt Rate > 60; Glucose 97 mg/dL (65-110); Potassium 3.4 mmol/L (3.4-5.0); Sodium 140 mmol/L (137-145)
--- NOTE | 2024-06-04 09:07 | P.PNIM_ITS ---
Progress Note: A&P Assessment and Plan (1) Pulmonary embolism: Qualifiers: Acute cor pulmonale presence: without acute cor pulmonale Chronicity: acute Pulmonary embolism type: unspecified Qualified Code(s): I26.99 - Other pulmonary embolism without acute cor pulmonale Code(s): I26.99 - Other pulmonary embolism without acute cor pulmonale Status: Chronic (2) Influenza A: Code(s): J10.1 - Influenza due to other identified influenza virus with other respiratory manifestations Status: Acute (3) Sickle-cell disease with vaso-occlusive pain: Code(s): D57.00 - Hb-SS disease with crisis, unspecified Status: Acute Plan The patient presented to the emergency department with complaints of cough, shortness breast and whole body ache. He tested positive for influenza A and he has been started on Tamiflu. Chest CTA showed a single pulmonary embolism in the anterior segmental pulmonary artery of the right upper lobe without evidence of heart strain. He has been started on enoxaparin 1 milligram/kilogram b.i.d.. He was previously on warfarin however it was stopped last fall for reasons unknown to the patient. 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 No evident right heart strain. Continue Lovenox 1 milligram/kilos q.12 hour subcu Suspecting pneumonia Due to flu infection possible superimposed with bacteria infection X-ray shows possible atelectasis or pneumonia Continue Tamiflu 75 mg q.12 hours p.o. for flu a infection Started Levaquin 750 mg daily IV 06/02 Patient still has cough and has yellow greenish sputum. Leukocytosis improving, patient is afebrile Subjective Date/time seen: 06/04/24 09:07 Interval history: I saw examined the patient today, feels better today, pain is better controlled, dyspnea is improving. Patient denies abdomen pain nausea vomiting diarrhea. Labs reviewed, leukocytosis improving, 13.3 K, hemoglobin 8.0 stable, chemistry unremarkable. Patient is on 2 L oxygen Exam Narrative: GENERAL: Ill-appearing in no acute distress. Well-nourished. - EYES: EOMI. Anicteric. - HENT: Moist mucous membranes. - LUNGS: Coarse breath sound bilaterall y bilaterally, no wheezing, rhonchi, or rales. - CARDIOVASCULAR: Regular rate and rhyth m. No murmur. No JVD. - ABDOMEN: Soft, non-tender and non-dist ended. No palpable masses. - EXTREMITIES: No edema. Peripheral puls es 2+. Non-tender. - NEUROLOGIC: No focal neurological defi cits. CN II-XII grossly intact. - PSYCHIATRIC: Awake, Alert and oriented x 3. Lethargic mood and affect. - SKIN: No rashes or lesions. Warm. - LYMPH: No cervical lymphadenopathy. Objective Data Vital Signs Vital Signs: Vital Signs - 24 hr 06/03/24 09:15 06/03/24 09:15 06/03/24 11:53 Temperature Pulse Rate 69 81 Respiratory Rate Blood Pressure Pulse Oximetry 97 Oxygen Delivery Nasal Cannula Oxygen Flow Rate 1 06/03/24 14:00 06/03/24 14:02 06/03/24 14:12 Temperature 97.4 F L Pulse Rate 86 87 82 Respiratory Rate 20 20 20 Blood Pressure 108/64 Pulse Oximetry 100 Oxygen Delivery Oxygen Flow Rate 06/03/24 16:00 06/03/24 20:00 06/03/24 20:00 Temperature Pulse Rate 91 91 Respiratory Rate Blood Pressure Pulse Oximetry Oxygen Delivery Room Air Oxygen Flow Rate 06/03/24 20:22 06/03/24 20:33 06/03/24 20:34 Temperature Pulse Rate 89 82 Respiratory Rate 20 20 Blood Pressure Pulse Oximetry 99 Oxygen Delivery Nasal Cannula Oxygen Flow Rate 2 06/03/24 20:45 06/04/24 00:00 06/04/24 02:10 Temperature 98.3 F Pulse Rate 98 82 82 Respiratory Rate 18 20 Blood Pressure 113/56 L Pulse Oximetry 94 Oxygen Delivery Oxygen Flow Rate 06/04/24 02:19 06/04/24 04:00 06/04/24 05:50 Temperature 97.8 F Pulse Rate 89 100 90 Respiratory Rate 20 16 Blood Pressure 121/59 L Pulse Oximetry 100 Oxygen Delivery Oxygen Flow Rate Intake/Output Intake/Output: Intake & Output 06/01/24 06/02/24 06/03/24 06/04/24 23:59 23:59 23:59 23:59 Intake Total 1999 4465.0 4040 1638.3 Output Total 1400 2800 1350 Balance 1999 3065.0 1240 288.3 Meds/Results Medications: Active Medications Generic Name Dose Route Start Last Admin Trade Name Freq PRN Reason Stop Dose Admin Albuterol/Ipratropium 3 ml 06/02/24 20:00 06/04/24 02:10 Ipratropium 0.5 Mg/Albuterol Sulfate 2.5 Mg Ampul.Neb 3 Ml INHALATION 3 ml Q6HRT CHRISTOPHER Administration Dextrose 12.5 gm 06/01/24 13:17 Dextrose 50% 25 Gm/50 Ml Syringe IV PUSH PRN PRN Hypoglycemia Protocol Diphenhydramine HCl 25 mg 06/01/24 18:56 06/04/24 05:50 Diphenhydramine Hcl Inj 50 Mg/Ml Vial IV PUSH 25 mg Q4H PRN Administration Itching Enoxaparin Sodium 100 mg 06/02/24 06:00 06/04/24 05:50 Enoxaparin 100 Mg/Ml Syringe SUB-Q 100 mg Q12H CHRISTOPHER Administration Folic Acid 1 mg 06/02/24 09:00 06/03/24 09:15 Folic Acid 1 Mg Tablet PO 1 mg DAILY CHRISTOPHER Administration Glucagon 1 mg 06/01/24 13:17 Glucagon For Inj 1 Mg Vial IM PRN PRN Hypoglycemia Protocol Glucose 15 gm 06/01/24 13:17 Glucose Oral Gel 15 Gm Of Glucse In 37.5 Gm Tube PO PRN PRN Hypoglycemia Protocol Guaifenesin/Dextromethorphan 10 ml 06/02/24 16:16 Guaifenesin/Dextromethorphan 10 Ml Udc PO Q4H PRN Cough Hydromorphone HCl 2 mg 06/03/24 15:30 06/04/24 05:51 Hydromorphone Hcl Inj (*Crx) 1 Mg/Ml Syr IV PUSH 2 mg Q3H PRN Administration Pain Rated 7-10 Hydroxyurea 500 mg 06/02/24 09:00 06/03/24 09:15 Hydroxyurea (*Chemo) 500 Mg Capsule PO 500 mg QAM CHRISTOPHER Administration Dextrose 1,000 mls @ 100 mls/hr 06/01/24 13:17 Dextrose 5% 1,000 Ml IVPB PRN PRN Hypoglycemia Protocol Lactated Ringer's 1,000 mls @ 100 mls/hr 06/01/24 19:10 06/04/24 05:50 Lr - Lactated Ringers Iv IV CONT 100 mls/hr .Q10H CHRISTOPHER Administration Levofloxacin/Dextrose 750 mg in 150 mls @ 100 mls/hr 06/02/24 18:00 06/03/24 17:40 Levaquin 750 Mg/D5w 150 Ml IVPB 100 mls/hr Q24H CHRISTOPHER Administration Ibuprofen 600 mg 06/01/24 19:07 Ibuprofen 600 Mg Tablet PO Q6H PRN Pain Rated 1-3 Metoclopramide HCl 10 mg 06/02/24 16:14 Metoclopramide Hcl Inj 10 Mg/2 Ml Vial IV PUSH Q6H PRN Nausea And Vomiting Oseltamivir Phosphate 75 mg 06/01/24 21:00 06/03/24 20:59 Oseltamivir Phosphate 75 Mg Capsule PO 06/06/24 20:59 75 mg Q12HR CHRISTOPHER Administration Radiology Results: ITS Impressions Chest X-Ray 06/01/24 10:23 Impression: Discoid left basilar atelectasis or scarring, otherwise clear lungs. Chest CTA 06/01/24 12:12 IMPRESSION: 1. Single pulmonary embolism in the anterior segmental pulmonary artery of the right upper lobe. No evident right heart strain. Dr. Washington discussed these findings with Dr. Beaulieu at 12:22 PM. 2. Moderate atelectasis in the bilateral lung bases. 3. 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 Constellation of findings would be most consistent with sequela of sickle cell disease. 4. Tiny gallstone. Venous Doppler Study 06/01/24 21:22 IMPRESSION: Patent bilateral lower extremity veins. No evidence of deep venous thrombosis. Labs Labs: Laboratory Results - last 24 hr 06/03/24 06/04/24 11:06 06:14 WBC 16.2 H 13.3 H RBC 2.69 L 2.65 L Hgb 8.3 L 8.0 L Hct 23.8 L 23.1 L MCV 88.5 87.2 MCH 30.9 30.2 MCHC 34.9 34.6 RDW 16.3 H 16.7 H Plt Count 390 H 394 H MPV 11.2 H 9.9 Immature Gran % (Auto) 0.5 0.5 Neut % (Auto) 64.9 54.6 Lymph % (Auto) 19.4 29.6 [place] % (Auto) 13.8 H 12.9 H Eos % (Auto) 1.1 2.0 Baso % (Auto) 0.3 0.4 Lymph # (Auto) 3.15 3.93 H [place] # (Auto) 2.2 H 1.7 H Eos # (Auto) 0.2 0.3 Baso # (Auto) 0.1 0.1 Abs Immat Gran (auto) 0.08 H 0.06 H Absolute Neuts (auto) 10.5 H 7.3 H Absolute Nucleated RBC 0.040 H 0.040 H Nucleated RBC % 0.2 0.3 H Sodium 140 140 Potassium 3.3 L 3.4 Chloride 103 104 Carbon Dioxide 28 29 Anion Gap 9 7 BUN 6 L 4 L Creatinine 0.73 0.65 L Estim Creat Clear Calc 138 154 Estimated GFR > 60 > 60 Glucose 118 H 97 Calcium 8.9 8.6
[2024-06-04] MEDS: FOLIC ACID 1 MG TABLET PO (09:49)
[2024-06-04] MEDS: HYDROXYUREA (*CHEMO) 500 MG CAPSULE PO (09:49)
[2024-06-04] MEDS: OSELTAMIVIR PHOSPHATE 75 MG CAPSULE PO ×2 (09:49→19:53)
[2024-06-04] MEDS: levoFLOXacin 750 MG/D5W 150 ML 750 MG/150 ML BAG 100 MG IVPB (17:45)
--- NOTE | 2024-06-04 19:27 | PCRCNOTE ---
Window of time for administration has passed. See next scheduled administration.
[2024-06-05] VITALS (16 sets, daily range): BP systolic 110–128; BP diastolic 57–71; PULSE 71–99; RESP 16–20; TEMP 36.3–36.7; O2SAT 95–99
[2024-06-05] MEDS: HYDROmorphone HCL INJ (*CRX) 1 MG/ML SYR 2 MG IV PUSH ×8 (01:55→23:40)
[2024-06-05] MEDS: diphenhydrAMINE HCl INJ 50 MG/ML VIAL 25 MG IV PUSH ×4 (01:55→20:39)
[2024-06-05] MEDS: IPRATROPIUM 0.5 MG/ALBUTEROL SULFATE 2.5 MG AMPUL.NEB 3 ML INHALATION ×3 (02:15→19:59)
[2024-06-05] MEDS: LACTATED RINGERS 1,000 ML 100 ML IV CONT ×3 (04:53→20:41)
[2024-06-05] MEDS: ENOXAPARIN 100 MG/ML SYRINGE SUB-Q ×2 (04:54→17:40)
[2024-06-05 06:14] LABS: Anion Gap 6 mmol/L (4-12); Blood Urea Nitrogen 3 mg/dL (9-20); Calcium 8.7 mg/dL (8.4-10.2); Carbon Dioxide 28 mmol/L (22-30); Chloride 105 mmol/L (98-107); Estimated CRCL calculation 145 ml/min; Estimated Glomerular Filt Rate > 60; Glucose 102 mg/dL (65-110); Potassium 3.4 mmol/L (3.4-5.0); Sodium 139 mmol/L (137-145)
[2024-06-05 06:15] LABS: Basophils Absolute Auto 0.1 K/mm3 (0.0-0.1); Basophils Percent Auto 0.5 % (0.2-1.2); Eosinophils Absolute Auto 0.3 K/mm3 (0-0.3); Eosinophils Percent Auto 2.4 % (0-4.4); Hematocrit 22.6 % (42.0-52.0); Hemoglobin 7.8 g/dL (14.0-18.0); Immature Granulocyte Percent A 0.8 % (0-0.5); Lymphocytes Absolute Auto 4.78 K/mm3 (0.9-3.2); Lymphocytes Percent Auto 40.3 % (18.3-44.2); Mean Corpuscular HGB Conc 34.5 g/dl (32-36); Mean Corpuscular Hemoglobin 30.2 pg (26-34); Mean Corpuscular Volume 87.6 fl (80-100); Mean Platelet Volume 10.3 fl (7.4-10.4); Monocytes Absolute Auto 1.3 K/mm3 (0.1-0.6); Monocytes Percent Auto 10.8 % (2.6-8.5); Neutrophils Absolute Auto 5.4 K/mm3 (1.3-6.7); Neutrophils Percent Auto 45.2 % (45.5-73.1); Nucleated Red Blood Cells Perc 0.2 % (0.0-0.2); Platelet Count Result 405 k/mm3 (150-375); Red Blood Count 2.58 M/mm3 (4.6-6.20); Red Cell Distribution Width 16.6 % (11.5-14.5); White Blood Count 11.9 K/mm3 (4.5-10.0)
--- NOTE | 2024-06-05 07:34 | P.PNIM_ITS ---
Progress Note: A&P Assessment and Plan (1) Pulmonary embolism: Qualifiers: Acute cor pulmonale presence: without acute cor pulmonale Chronicity: acute Pulmonary embolism type: unspecified Qualified Code(s): I26.99 - Other pulmonary embolism without acute cor pulmonale Code(s): I26.99 - Other pulmonary embolism without acute cor pulmonale Status: Chronic (2) Influenza A: Code(s): J10.1 - Influenza due to other identified influenza virus with other respiratory manifestations Status: Acute (3) Sickle-cell disease with vaso-occlusive pain: Code(s): D57.00 - Hb-SS disease with crisis, unspecified Status: Acute Plan The patient presented to the emergency department with complaints of cough, shortness breast and whole body ache. He tested positive for influenza A and he has been started on Tamiflu. Chest CTA showed a single pulmonary embolism in the anterior segmental pulmonary artery of the right upper lobe without evidence of heart strain. He has been started on enoxaparin 1 milligram/kilogram b.i.d.. He was previously on warfarin however it was stopped last fall for reasons unknown to the patient. 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 No evident right heart strain. Continue Lovenox 1 milligram/kilos q.12 hour subcu Community-acquired pneumonia Due to flu infection possible superimposed with bacteria infection X-ray shows possible atelectasis or pneumonia Continue Tamiflu 75 mg q.12 hours p.o. for flu a infection Started Levaquin 750 mg daily IV 06/02 Leukocytosis improving, patient is afebrile Patient still has cough and less production of sputum. Dyspnea resolved Change Levaquin from IV to p.o. 06/05 Subjective Date/time seen: 06/05/24 07:34 Interval history: I saw examined the patient today, feels better today, pain is better controlled, dyspnea has resolved. Patient denies abdomen pain nausea vomiting diarrhea. Labs reviewed, leukocytosis improving, 11.9, hemoglobin 7.8 stable, chemistry unremarkable. Patient is afebrile over the night, patient on room air now Exam Narrative: GENERAL: Ill-appearing in no acute distress. Well-nourished. - EYES: EOMI. Anicteric. - HENT: Moist mucous membranes. - LUNGS: Coarse breath sound bilaterall y bilaterally, no wheezing, rhonchi, or rales. - CARDIOVASCULAR: Regular rate and rhyth m. No murmur. No JVD. - ABDOMEN: Soft, non-tender and non-dist ended. No palpable masses. - EXTREMITIES: No edema. Peripheral puls es 2+. Non-tender. - NEUROLOGIC: No focal neurological defi cits. CN II-XII grossly intact. - PSYCHIATRIC: Awake, Alert and oriented x 3. Lethargic mood and affect. - SKIN: No rashes or lesions. Warm. - LYMPH: No cervical lymphadenopathy. Objective Data Vital Signs Vital Signs: Vital Signs - 24 hr 06/04/24 08:00 06/04/24 08:00 06/04/24 10:36 Temperature Pulse Rate 90 77 Respiratory Rate 16 Blood Pressure Pulse Oximetry 100 96 Oxygen Delivery Nasal Cannula Nasal Cannula Oxygen Flow Rate 1 2 06/04/24 10:37 06/04/24 12:00 06/04/24 15:28 Temperature 97.6 F Pulse Rate 85 75 81 Respiratory Rate 20 16 Blood Pressure 97/52 L Pulse Oximetry 98 Oxygen Delivery Oxygen Flow Rate 06/04/24 16:00 06/04/24 20:00 06/04/24 20:00 Temperature Pulse Rate 79 94 Respiratory Rate Blood Pressure Pulse Oximetry 99 Oxygen Delivery Nasal Cannula Oxygen Flow Rate 1 06/04/24 20:15 06/04/24 20:16 06/04/24 20:17 Temperature Pulse Rate 88 Respiratory Rate 20 Blood Pressure Pulse Oximetry 97 97 Oxygen Delivery Nasal Cannula Room Air Oxygen Flow Rate 1 06/04/24 20:23 06/04/24 21:05 06/05/24 00:00 Temperature 97.9 F Pulse Rate 84 92 80 Respiratory Rate 20 18 Blood Pressure 124/58 L Pulse Oximetry 93 Oxygen Delivery Oxygen Flow Rate 06/05/24 02:15 06/05/24 02:21 06/05/24 04:00 Temperature Pulse Rate 83 84 82 Respiratory Rate 20 20 Blood Pressure Pulse Oximetry Oxygen Delivery Oxygen Flow Rate 06/05/24 04:53 Temperature 97.4 F L Pulse Rate 85 Respiratory Rate 16 Blood Pressure 110/57 L Pulse Oximetry 95 Oxygen Delivery Oxygen Flow Rate Intake/Output Intake/Output: Intake & Output 06/02/24 06/03/24 06/04/24 06/05/24 23:59 23:59 23:59 23:59 Intake Total 4465.0 4190 3318.3 1750 Output Total 1400 2800 3125 800 Balance 3065.0 1390 193.3 950 Meds/Results Medications: Active Medications Generic Name Dose Route Start Last Admin Trade Name Freq PRN Reason Stop Dose Admin Albuterol/Ipratropium 3 ml 06/02/24 20:00 06/05/24 02:15 Ipratropium 0.5 Mg/Albuterol Sulfate 2.5 Mg Ampul.Neb 3 Ml INHALATION 3 ml Q6HRT CHRISTOPHER Administration Dextrose 12.5 gm 06/01/24 13:17 Dextrose 50% 25 Gm/50 Ml Syringe IV PUSH PRN PRN Hypoglycemia Protocol Diphenhydramine HCl 25 mg 06/01/24 18:56 06/05/24 01:55 Diphenhydramine Hcl Inj 50 Mg/Ml Vial IV PUSH 25 mg Q4H PRN Administration Itching Enoxaparin Sodium 100 mg 06/02/24 06:00 06/05/24 04:54 Enoxaparin 100 Mg/Ml Syringe SUB-Q 100 mg Q12H CHRISTOPHER Administration Folic Acid 1 mg 06/02/24 09:00 06/04/24 09:49 Folic Acid 1 Mg Tablet PO 1 mg DAILY CHRISTOPHER Administration Glucagon 1 mg 06/01/24 13:17 Glucagon For Inj 1 Mg Vial IM PRN PRN Hypoglycemia Protocol Glucose 15 gm 06/01/24 13:17 Glucose Oral Gel 15 Gm Of Glucse In 37.5 Gm Tube PO PRN PRN Hypoglycemia Protocol Guaifenesin/Dextromethorphan 10 ml 06/02/24 16:16 Guaifenesin/Dextromethorphan 10 Ml Udc PO Q4H PRN Cough Hydromorphone HCl 2 mg 06/03/24 15:30 06/05/24 04:54 Hydromorphone Hcl Inj (*Crx) 1 Mg/Ml Syr IV PUSH 2 mg Q3H PRN Administration Pain Rated 7-10 Hydroxyurea 500 mg 06/02/24 09:00 06/04/24 09:49 Hydroxyurea (*Chemo) 500 Mg Capsule PO 500 mg QAM CHRISTOPHER Administration Dextrose 1,000 mls @ 100 mls/hr 06/01/24 13:17 Dextrose 5% 1,000 Ml IVPB PRN PRN Hypoglycemia Protocol Lactated Ringer's 1,000 mls @ 100 mls/hr 06/01/24 19:10 06/05/24 04:53 Lr - Lactated Ringers Iv IV CONT 100 mls/hr .Q10H CHRISTOPHER Administration Levofloxacin/Dextrose 750 mg in 150 mls @ 100 mls/hr 06/02/24 18:00 06/04/24 17:45 Levaquin 750 Mg/D5w 150 Ml IVPB 100 mls/hr Q24H CHRISTOPHER Administration Ibuprofen 600 mg 06/01/24 19:07 Ibuprofen 600 Mg Tablet PO Q6H PRN Pain Rated 1-3 Metoclopramide HCl 10 mg 06/02/24 16:14 Metoclopramide Hcl Inj 10 Mg/2 Ml Vial IV PUSH Q6H PRN Nausea And Vomiting Oseltamivir Phosphate 75 mg 06/01/24 21:00 06/04/24 19:53 Oseltamivir Phosphate 75 Mg Capsule PO 06/06/24 20:59 75 mg Q12HR CHRISTOPHER Administration Radiology Results: ITS Impressions Chest X-Ray 06/01/24 10:23 Impression: Discoid left basilar atelectasis or scarring, otherwise clear lungs. Chest CTA 06/01/24 12:12 IMPRESSION: 1. Single pulmonary embolism in the anterior segmental pulmonary artery of the right upper lobe. No evident right heart strain. Dr. Washington discussed these findings with Dr. Beaulieu at 12:22 PM. 2. Moderate atelectasis in the bilateral lung bases. 3. 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 Constellation of findings would be most consistent with sequela of sickle cell disease. 4. Tiny gallstone. Venous Doppler Study 06/01/24 21:22 IMPRESSION: Patent bilateral lower extremity veins. No evidence of deep venous thrombosis. Labs Labs: Laboratory Results - last 24 hr 06/05/24 05:35 WBC 11.9 H RBC 2.58 L Hgb 7.8 L Hct 22.6 L MCV 87.6 MCH 30.2 MCHC 34.5 RDW 16.6 H Plt Count 405 H MPV 10.3 Immature Gran % (Auto) 0.8 H Neut % (Auto) 45.2 L Lymph % (Auto) 40.3 [place] % (Auto) 10.8 H Eos % (Auto) 2.4 Baso % (Auto) 0.5 Lymph # (Auto) 4.78 H [place] # (Auto) 1.3 H Eos # (Auto) 0.3 Baso # (Auto) 0.1 Abs Immat Gran (auto) 0.10 H Absolute Neuts (auto) 5.4 Absolute Nucleated RBC 0.020 H Nucleated RBC % 0.2 Sodium 139 Potassium 3.4 Chloride 105 Carbon Dioxide 28 Anion Gap 6 BUN 3 L Creatinine 0.69 L Estim Creat Clear Calc 145 Estimated GFR > 60 Glucose 102 Calcium 8.7
[2024-06-05] MEDS: HYDROXYUREA (*CHEMO) 500 MG CAPSULE PO (08:04)
[2024-06-05] MEDS: FOLIC ACID 1 MG TABLET PO (08:04)
[2024-06-05] MEDS: OSELTAMIVIR PHOSPHATE 75 MG CAPSULE PO ×2 (08:04→20:39)
--- NOTE | 2024-06-05 17:08 | PCRCNOTE ---
Window of time for administration has passed. See next scheduled administration.
--- NOTE | 2024-06-05 17:12 | P.CONONC_ITS ---
Assessment and Plan Assessment and plan (1) Sickle cell anemia: Code(s): D57.1 - Sickle-cell disease without crisis Status: Chronic Assessment and Plan: Sickle cell crisis. Patient has history of hemoglobin SC disease. He came into the hospital with malaise, cough with subjective fever along with shortness of breath and generalized musculoskeletal discomfort. He was diagnosed with influenza A. Labs showed hemoglobin of 9.7 now dropped down to 7.8 likely secondary to hydration. Reticulocyte count was slightly elevated at 5.53%. LDH was elevated at 265. These findings are consistent with sickle cell crisis. Continue hydroxyurea with folic acid and IV hydration. I will repeat LDH in the morning. Continue the current pain medication. I do not see need for blood transfusion at this time. Hopefully patient would be able to go home in next 24-48 hours if his pain remains under control on home pain medication. His cough has clinically improved. (2) Hx of pulmonary embolus: Code(s): Z86.711 - Personal history of pulmonary embolism Status: Acute Assessment and Plan: Patient has a history of pulmonary embolism. Recent CTA chest done on June 01 showed single PE in anterior segmental pulmonary artery of the right upper lobe with no evidence of right heart strain. There was chronic splenic infarction. Doppler study showed no evidence of DVT in bilateral lower extremity. Patient stopped taking warfarin few weeks ago as he was not able to get the refill due to not having PT INR level checked. At this time I would suggest starting him on Xarelto 15 mg twice a day for 1 week and then 20 mg once a day for treatment of PE and long-term prophylaxis. 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 He also has been taking hydroxyurea 500 mg daily. Patient was admitted to the hospital on June 01 with complain of cough along with generalize musculoskeletal discomfort and shortness of breath. He was producing yellowish greenish sputum. He had some generalized malaise and lack of appetite. He was tested positive for influenza A. CTA chest showed single pulmonary embolism in the right upper lobe. He was started on Lovenox and was given Tamiflu. He just started feeling better. According to patient he stopped taking warfarin few weeks prior to the admission as he was not given refill due to not having PT INR level checked. Currently he is on Dilaudid 3 mg every 3 hours with some pain control. 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 Noncompliance History of noncompliance with anticoagulation and hydroxyurea. Deep venous thrombosis Chronic anticoagulation Due to history of DVT and pulmonary embolism. Acute chest syndrome Sickle cell disease, type SC Pulmonary embolism Chronic narcotic use On methadone with oxycodone for chronic pain related to sickle cell disease. Surgical History Surgical History History of hand surgery Tendon surgery on right 5th finger. Family History Family History Grandparent Diabetes mellitus Acute myocardial infarction Sibling Asthma Sibling Asthma Mother Hypertension Sickle cell trait Son Sickle cell trait Daughter Sickle cell trait Grandparent No problems noted. Other Diabetes mellitus Father Sickle cell trait Social History Social History Social History: The patient lives in [place] with his family. He is on disability due to sickle cell disease and chronic pain. He is a lifelong nonsmoker and denies alcohol and illicit substance abuse. He uses marijuana to help with pain, states this happens 1-2x per year. He designates Jolly Zuniga (mother) or Keyla Luther (friend) as his surrogate decision makers and he wishes to be a full code. Smoking status: Never smoker Second hand tobacco smoke exposure: No Additional smoking assessment comments: Smokes marijuana when pain meds unavailable. Alcohol intake: never Substance use: never Substance use type: marijuana Other substance usage details: For back when he doesn't have any pain meds available. Last use: 12/28/22 Do You Feel Safe in your Home?: Yes Lack of Transportation: No Lack of Food: Never True Current Housing: I Have Housing Concerned About Future Housing: No Difficulty Paying Gas/Electric Bills: No Difficulty Paying for Meds: No Currently Unemployed: No Education: High School Diploma/GED Difficulty w/ Childcare or Family Care: No Living arrangements: with family Occupation/Education: other Spiritual care concerns: No Agree to blood products: Yes Meds Home Medications and Allergies Home Medications ?Medication ?Instructions ?Recorded ?Confirmed ?Type folic acid 1 mg tablet 1 mg PO DAILY 02/16/19 06/01/24 History methadone 10 mg tablet 10 mg PO TID 08/22/20 06/01/24 History oxycodone-acetaminophen 10 mg-325 1 tablet PO BID PRN Pain, Moderate 08/22/20 06/01/24 History mg tablet hydroxyurea 500 mg capsule 500 mg PO QAM #30 caps 11/23/21 06/01/24 Rx ibuprofen 800 mg tablet 800 mg PO PRN 12/30/22 06/01/24 History warfarin 10 mg tablet 10 mg PO HS 06/22/23 06/01/24 History warfarin 2 mg tablet 4 mg PO DAILY 12/15/23 06/01/24 History Allergies Allergy/AdvReac Type Severity Reaction Status Date / Time Fish Containing Products Allergy Mild Itching Verified 06/01/24 09:54 Vital Signs Vital Signs - 24 hr 06/04/24 20:00 06/04/24 20:00 06/04/24 20:15 Temperature Pulse Rate 94 88 Respiratory Rate 20 Blood Pressure Pulse Oximetry 99 Oxygen Delivery Nasal Cannula Oxygen Flow Rate 1 06/04/24 20:16 06/04/24 20:17 06/04/24 20:23 Temperature Pulse Rate 84 Respiratory Rate 20 Blood Pressure Pulse Oximetry 97 97 Oxygen Delivery Nasal Cannula Room Air Oxygen Flow Rate 1 06/04/24 21:05 06/05/24 00:00 06/05/24 02:15 Temperature 36.6 C Pulse Rate 92 80 83 Respiratory Rate 18 20 Blood Pressure 124/58 L Pulse Oximetry 93 Oxygen Delivery Oxygen Flow Rate 06/05/24 02:21 06/05/24 04:00 06/05/24 04:53 Temperature 36.3 C L Pulse Rate 84 82 85 Respiratory Rate 20 16 Blood Pressure 110/57 L Pulse Oximetry 95 Oxygen Delivery Oxygen Flow Rate 06/05/24 08:00 06/05/24 08:10 06/05/24 09:08 Temperature Pulse Rate 80 71 Respiratory Rate 20 Blood Pressure Pulse Oximetry Oxygen Delivery Room Air Oxygen Flow Rate 06/05/24 09:09 06/05/24 12:00 06/05/24 13:51 Temperature 36.4 C L Pulse Rate 76 79 Respiratory Rate 16 Blood Pressure 113/63 Pulse Oximetry 96 99 Oxygen Delivery Room Air Oxygen Flow Rate 06/05/24 13:55 06/05/24 16:00 Temperature 36.4 C L Pulse Rate 79 78 Respiratory Rate 16 Blood Pressure 113/63 Pulse Oximetry 99 Oxygen Delivery Oxygen Flow Rate Exam 2 Narrative: Lungs are clear to auscultation bilaterally Cardiovascular regular rate rhythm no murmurs Abdomen soft nontender nondistended Extremities no edema Results Labs 06/05/24 05:35 06/05/24 05:35 Labs: Short CBC 06/05/24 Range/Units 05:35 WBC 11.9 H (4.5-10.0) K/mm3 Hgb 7.8 L (14.0-18.0) g/dL Hct 22.6 L (42.0-52.0) % Plt Count 405 H (150-375) k/mm3 BMP 06/05/24 05:35 Sodium 139 Potassium 3.4 Chloride 105 Carbon Dioxide 28 BUN 3 L Creatinine 0.69 L Glucose 102 Calcium 8.7
[2024-06-05] MEDS: levoFLOXacin 750 MG TABLET PO (17:40)
[2024-06-05 17:59] LABS: Lactate Dehydrogenase 181 U/L (120-246)
[2024-06-06] VITALS (16 sets, daily range): BP systolic 111–127; BP diastolic 59–70; PULSE 74–101; RESP 16–20; TEMP 36.3–37; O2SAT 94–100
[2024-06-06] MEDS: HYDROmorphone HCL INJ (*CRX) 1 MG/ML SYR 2 MG IV PUSH ×4 (02:48→12:03)
[2024-06-06] MEDS: diphenhydrAMINE HCl INJ 50 MG/ML VIAL 25 MG IV PUSH ×5 (02:48→21:29)
[2024-06-06] MEDS: IPRATROPIUM 0.5 MG/ALBUTEROL SULFATE 2.5 MG AMPUL.NEB 3 ML INHALATION ×4 (03:22→19:58)
[2024-06-06] MEDS: ENOXAPARIN 100 MG/ML SYRINGE SUB-Q (05:49)
[2024-06-06] MEDS: HYDROXYUREA (*CHEMO) 500 MG CAPSULE PO (08:50)
[2024-06-06] MEDS: OSELTAMIVIR PHOSPHATE 75 MG CAPSULE PO (08:50)
[2024-06-06] MEDS: FOLIC ACID 1 MG TABLET PO (08:51)
[2024-06-06] MEDS: LACTATED RINGERS 1,000 ML 100 ML IV CONT ×2 (08:59→21:19)
[2024-06-06] MEDS: methADONE HCL (*CRX) 10 MG TABLET PO ×2 (12:42→18:18)
[2024-06-06] MEDS: oxyCODONE/ACETAMINOPHEN (*CRX) 10-325 MG TABLET 1 TAB PO (12:43)
--- NOTE | 2024-06-06 15:14 | P.PNIM_ITS ---
Progress Note: A&P Assessment and Plan (1) Pulmonary embolism: Qualifiers: Acute cor pulmonale presence: without acute cor pulmonale Chronicity: acute Pulmonary embolism type: unspecified Qualified Code(s): I26.99 - Other pulmonary embolism without acute cor pulmonale Code(s): I26.99 - Other pulmonary embolism without acute cor pulmonale Status: Chronic (2) Influenza A: Code(s): J10.1 - Influenza due to other identified influenza virus with other respiratory manifestations Status: Acute (3) Sickle-cell disease with vaso-occlusive pain: Code(s): D57.00 - Hb-SS disease with crisis, unspecified Status: Acute Plan The patient presented to the emergency department with complaints of cough, shortness breast and whole body ache. He tested positive for influenza A and he has been started on Tamiflu. Chest CTA showed a single pulmonary embolism in the anterior segmental pulmonary artery of the right upper lobe without evidence of heart strain. He has been started on enoxaparin 1 milligram/kilogram b.i.d.. He was previously on warfarin however it was stopped last fall for reasons unknown to the patient. 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 No evident right heart strain. Continue Lovenox 1 milligram/kilos q.12 hour subcu will switch to xarelto venous duplex with no dvt Community-acquired pneumonia Due to flu infection possible superimposed with bacteria infection X-ray shows possible atelectasis or pneumonia Continue Tamiflu 75 mg q.12 hours p.o. for influenza a infection Started Levaquin 750 mg daily IV 06/02 Leukocytosis improving, patient remains afebrile Change Levaquin from IV to p.o. 06/05 Subjective Date/time seen: 06/06/24 15:14 Interval history: no overnight events, patient complaints of pain continued and worsening with lowered dilaudid Review of Systems Review of Systems: All systems reviewed & are unremarkable except as noted in HPI and below Exam Narrative: GENERAL: well-appearing in no acute distress. Well-nourished. - EYES: EOMI. Anicteric. - HENT: Moist mucous membranes. - LUNGS: Coarse breath sound bilaterall y bilaterally, no wheezing, rhonchi, or rales. - CARDIOVASCULAR: Regular rate and rhyth m. No murmur. No JVD. - ABDOMEN: Soft, non-tender and non-dist ended. No palpable masses. - EXTREMITIES: No edema. Peripheral puls es 2+. Non-tender. - NEUROLOGIC: No focal neurological defi cits. CN II-XII grossly intact. - PSYCHIATRIC: Awake, Alert and oriented x 3. - SKIN: No rashes or lesions. Warm. - LYMPH: No cervical lymphadenopathy. Objective Data Vital Signs Vital Signs: Vital Signs - 24 hr 06/05/24 16:00 06/05/24 20:00 06/05/24 20:00 Temperature Pulse Rate 78 Respiratory Rate Blood Pressure Pulse Oximetry 97 Oxygen Delivery Room Air Room Air 06/05/24 20:00 06/05/24 20:01 06/05/24 20:10 Temperature Pulse Rate 88 86 88 Respiratory Rate 20 20 Blood Pressure Pulse Oximetry Oxygen Delivery 06/05/24 21:04 06/06/24 00:00 06/06/24 03:23 Temperature 98.1 F Pulse Rate 99 98 81 Respiratory Rate 18 20 Blood Pressure 128/71 Pulse Oximetry 95 Oxygen Delivery 06/06/24 04:00 06/06/24 05:50 06/06/24 08:23 Temperature 97.3 F L Pulse Rate 87 97 88 Respiratory Rate 18 20 Blood Pressure 126/59 L Pulse Oximetry 96 Oxygen Delivery 06/06/24 08:30 06/06/24 08:51 06/06/24 14:00 Temperature 98.6 F Pulse Rate 95 75 Respiratory Rate 20 16 Blood Pressure 111/64 Pulse Oximetry 100 Oxygen Delivery Room Air 06/06/24 14:24 06/06/24 14:35 Temperature Pulse Rate 78 74 Respiratory Rate 18 18 Blood Pressure Pulse Oximetry Oxygen Delivery Intake/Output Intake/Output: Intake & Output 06/03/24 06/04/24 06/05/24 06/06/24 23:59 23:59 23:59 23:59 Intake Total 4190 3468.3 4530 1880 Output Total 2800 3125 2500 800 Balance 1390 343.3 2030 1080 Meds/Results Medications: Active Medications Generic Name Dose Route Start Last Admin Trade Name Freq PRN Reason Stop Dose Admin Albuterol/Ipratropium 3 ml 06/02/24 20:00 06/06/24 14:23 Ipratropium 0.5 Mg/Albuterol Sulfate 2.5 Mg Ampul.Neb 3 Ml INHALATION 3 ml Q6HRT CHRISTOPHER Administration Dextrose 12.5 gm 06/01/24 13:17 Dextrose 50% 25 Gm/50 Ml Syringe IV PUSH PRN PRN Hypoglycemia Protocol Diphenhydramine HCl 25 mg 06/06/24 15:02 Diphenhydramine Hcl Inj 50 Mg/Ml Vial IV PUSH Q3H PRN Itching Enoxaparin Sodium 100 mg 06/02/24 06:00 06/06/24 05:49 Enoxaparin 100 Mg/Ml Syringe SUB-Q 100 mg Q12H CHRISTOPHER Administration Folic Acid 1 mg 06/02/24 09:00 06/06/24 08:51 Folic Acid 1 Mg Tablet PO 1 mg DAILY CHRISTOPHER Administration Glucagon 1 mg 06/01/24 13:17 Glucagon For Inj 1 Mg Vial IM PRN PRN Hypoglycemia Protocol Glucose 15 gm 06/01/24 13:17 Glucose Oral Gel 15 Gm Of Glucse In 37.5 Gm Tube PO PRN PRN Hypoglycemia Protocol Guaifenesin/Dextromethorphan 10 ml 06/02/24 16:16 Guaifenesin/Dextromethorphan 10 Ml Udc PO Q4H PRN Cough Hydromorphone HCl 3 mg 06/06/24 15:01 Hydromorphone Hcl Inj (*Crx) 1 Mg/Ml Syr IV PUSH Q3H PRN Pain Rated 7-10 Hydroxyurea 500 mg 06/02/24 09:00 06/06/24 08:50 Hydroxyurea (*Chemo) 500 Mg Capsule PO 500 mg QAM CHRISTOPHER Administration Dextrose 1,000 mls @ 100 mls/hr 06/01/24 13:17 Dextrose 5% 1,000 Ml IVPB PRN PRN Hypoglycemia Protocol Lactated Ringer's 1,000 mls @ 100 mls/hr 06/01/24 19:10 06/06/24 08:59 Lr - Lactated Ringers Iv IV CONT 100 mls/hr .Q10H CHRISTOPHER Administration Ibuprofen 800 mg 06/06/24 13:09 Ibuprofen 400 Mg Tablet PO Q8H PRN Mild Pain (1-3) or Fever Levofloxacin 750 mg 06/05/24 18:00 06/05/24 17:40 Levofloxacin 750 Mg Tablet PO 06/08/24 18:01 750 mg DAILY@1800 CHRISTOPHER Administration Methadone HCl 10 mg 06/06/24 13:00 06/06/24 12:42 Methadone Hcl (*Crx) 10 Mg Tablet PO 10 mg TID CHRISTOPHER Administration Metoclopramide HCl 10 mg 06/02/24 16:14 Metoclopramide Hcl Inj 10 Mg/2 Ml Vial IV PUSH Q6H PRN Nausea And Vomiting Oseltamivir Phosphate 75 mg 06/01/24 21:00 06/06/24 08:50 Oseltamivir Phosphate 75 Mg Capsule PO 06/06/24 20:59 75 mg Q12HR CHRISTOPHER Administration Oxycodone/Acetaminophen 1 tab 06/06/24 12:07 06/06/24 12:43 Oxycodone/Acetaminophen (*Crx) 10-325 Mg Tablet PO 1 tab BID PRN Administration Pain, 4-6 Radiology Results: ITS Impressions Chest X-Ray 06/01/24 10:23 Impression: Discoid left basilar atelectasis or scarring, otherwise clear lungs. Chest CTA 06/01/24 12:12 IMPRESSION: 1. Single pulmonary embolism in the anterior segmental pulmonary artery of the right upper lobe. No evident right heart strain. Dr. Washington discussed these findings with Dr. Beaulieu at 12:22 PM. 2. Moderate atelectasis in the bilateral lung bases. 3. 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 Constellation of findings would be most consistent with sequela of sickle cell disease. 4. Tiny gallstone. Venous Doppler Study 06/01/24 21:22 IMPRESSION: Patent bilateral lower extremity veins. No evidence of deep venous thrombosis. Labs Labs: Laboratory Results - last 24 hr 06/05/24 05:33 Lactate Dehydrogenase 181
[2024-06-06] MEDS: HYDROmorphone HCL INJ (*CRX) 1 MG/ML SYR 3 MG IV PUSH ×3 (15:21→21:30)
[2024-06-06] MEDS: levoFLOXacin 750 MG TABLET PO (18:18)
[2024-06-06] MEDS: RIVAROXABAN 15 MG TABLET PO (18:18)
[2024-06-07] VITALS (15 sets, daily range): BP systolic 110–128; BP diastolic 61–73; PULSE 80–100; RESP 16–20; TEMP 36.3–36.8; O2SAT 91–96
[2024-06-07] MEDS: diphenhydrAMINE HCl INJ 50 MG/ML VIAL 25 MG IV PUSH ×8 (00:26→21:11)
[2024-06-07] MEDS: HYDROmorphone HCL INJ (*CRX) 2 MG/ML VIAL 3 MG IV PUSH ×8 (00:27→21:12)
[2024-06-07] MEDS: LACTATED RINGERS 1,000 ML 100 ML IV CONT ×3 (06:24→21:12)
[2024-06-07] MEDS: IPRATROPIUM 0.5 MG/ALBUTEROL SULFATE 2.5 MG AMPUL.NEB 3 ML INHALATION ×3 (07:38→21:44)
[2024-06-07] MEDS: methADONE HCL (*CRX) 10 MG TABLET PO ×3 (09:29→18:07)
[2024-06-07] MEDS: HYDROXYUREA (*CHEMO) 500 MG CAPSULE PO (09:29)
[2024-06-07] MEDS: RIVAROXABAN 15 MG TABLET PO ×2 (09:29→18:07)
[2024-06-07] MEDS: FOLIC ACID 1 MG TABLET PO (09:29)
--- NOTE | 2024-06-07 12:16 | PM.IMPN ---
Progress Note: A&P Assessment and Plan (1) Pulmonary embolism: Qualifiers: Acute cor pulmonale presence: without acute cor pulmonale Chronicity: acute Pulmonary embolism type: unspecified Qualified Code(s): I26.99 - Other pulmonary embolism without acute cor pulmonale Code(s): I26.99 - Other pulmonary embolism without acute cor pulmonale Status: Chronic (2) Influenza A: Code(s): J10.1 - Influenza due to other identified influenza virus with other respiratory manifestations Status: Acute (3) Sickle-cell disease with vaso-occlusive pain: Code(s): D57.00 - Hb-SS disease with crisis, unspecified Status: Acute Plan The patient presented to the emergency department with complaints of cough, shortness breast and whole body ache. He tested positive for influenza A and he has been started on Tamiflu. Chest CTA showed a single pulmonary embolism in the anterior segmental pulmonary artery of the right upper lobe without evidence of heart strain. He has been started on enoxaparin 1 milligram/kilogram b.i.d.. He was previously on warfarin however it was stopped last fall for reasons unknown to the patient. 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 No evident right heart strain. Continue Lovenox 1 milligram/kilos q.12 hour subcu Switched to xarelto venous duplex with no dvt Community-acquired pneumonia Due to flu infection possible superimposed with bacteria infection X-ray shows possible atelectasis or pneumonia Continue Tamiflu 75 mg q.12 hours p.o. for influenza a infection Started Levaquin 750 mg daily IV 06/02 Leukocytosis improving, patient remains afebrile Change Levaquin from IV to p.o. 06/05 Subjective Date/time seen: 06/07/24 12:16 Interval history: No new complaints continues to have pain in his legs and back Review of Systems Review of Systems: All systems reviewed & are unremarkable except as noted in HPI and below Exam Narrative: GENERAL: well-appearing in no acute distress. Well-nourished. - EYES: EOMI. Anicteric. - HENT: Moist mucous membranes. - LUNGS: Coarse breath sound bilaterally bilaterally, no wheezing, rhonchi, or rales. - CARDIOVASCULAR: Regular rate and rhythm. No murmur. No JVD. - ABDOMEN: Soft, non-tender and non-distended. No palpable masses. - EXTREMITIES: No edema. Peripheral pulses 2+. Non-tender. - NEUROLOGIC: No focal neurological deficits. CN II-XII grossly intact. - PSYCHIATRIC: Awake, Alert and oriented x 3. - SKIN: No rashes or lesions. Warm. - LYMPH: No cervical lymphadenopathy. Objective Data Vital Signs Vital Signs: Vital Signs - 24 hr 06/06/24 14:00 06/06/24 14:24 06/06/24 14:35 Temperature 98.6 F Pulse Rate 75 78 74 Respiratory Rate 16 18 18 Blood Pressure 111/64 Pulse Oximetry 100 Oxygen Delivery Fraction of Inspired Oxygen 06/06/24 16:00 06/06/24 19:59 06/06/24 20:00 Temperature Pulse Rate 88 86 Respiratory Rate 20 Blood Pressure Pulse Oximetry 95 Oxygen Delivery Room Air Fraction of Inspired Oxygen 06/06/24 20:00 06/06/24 20:00 06/06/24 20:10 Temperature Pulse Rate 77 88 Respiratory Rate 20 Blood Pressure Pulse Oximetry Oxygen Delivery Room Air Fraction of Inspired Oxygen 06/06/24 21:45 06/07/24 00:00 06/07/24 04:00 Temperature Pulse Rate 95 81 87 Respiratory Rate 16 Blood Pressure 127/70 Pulse Oximetry 94 Oxygen Delivery Fraction of Inspired Oxygen 06/07/24 06:00 06/07/24 07:38 06/07/24 07:38 Temperature 97.4 F L Pulse Rate 80 89 Respiratory Rate 18 20 Blood Pressure 110/61 Pulse Oximetry 96 91 Oxygen Delivery Room Air Fraction of Inspired Oxygen 21 06/07/24 07:47 06/07/24 08:00 06/07/24 09:30 Temperature Pulse Rate 94 90 Respiratory Rate 20 Blood Pressure Pulse Oximetry Oxygen Delivery Room Air Fraction of Inspired Oxygen Intake/Output Intake/Output: Intake & Output 06/04/24 06/05/24 06/06/24 06/07/24 23:59 23:59 23:59 23:59 Intake Total 3468.3 4530 3620 1408.3 Output Total 3125 2500 1635 1400 Balance 343.3 2030 1985 8.3 Meds/Results Medications: Active Medications Generic Name Dose Route Start Last Admin Trade Name Freq PRN Reason Stop Dose Admin Albuterol/Ipratropium 3 ml 06/02/24 20:00 06/07/24 07:38 Ipratropium 0.5 Mg/Albuterol Sulfate 2.5 Mg Ampul.Neb 3 Ml INHALATION 3 ml Q6HRT CHRISTOPHER Administration Dextrose 12.5 gm 06/01/24 13:17 Dextrose 50% 25 Gm/50 Ml Syringe IV PUSH PRN PRN Hypoglycemia Protocol Diphenhydramine HCl 25 mg 06/06/24 15:02 06/07/24 09:30 Diphenhydramine Hcl Inj 50 Mg/Ml Vial IV PUSH 25 mg Q3H PRN Administration Itching Folic Acid 1 mg 06/02/24 09:00 06/07/24 09:29 Folic Acid 1 Mg Tablet PO 1 mg DAILY CHRISTOPHER Administration Glucagon 1 mg 06/01/24 13:17 Glucagon For Inj 1 Mg Vial IM PRN PRN Hypoglycemia Protocol Glucose 15 gm 06/01/24 13:17 Glucose Oral Gel 15 Gm Of Glucse In 37.5 Gm Tube PO PRN PRN Hypoglycemia Protocol Guaifenesin/Dextromethorphan 10 ml 06/02/24 16:16 Guaifenesin/Dextromethorphan 10 Ml Udc PO Q4H PRN Cough Hydromorphone HCl 3 mg 06/06/24 20:09 06/07/24 09:30 Hydromorphone Hcl Inj (*Crx) 2 Mg/Ml Vial IV PUSH 3 mg Q3H PRN Administration Pain Rated 7-10 Hydroxyurea 500 mg 06/02/24 09:00 06/07/24 09:29 Hydroxyurea (*Chemo) 500 Mg Capsule PO 500 mg QAM CHRISTOPHER Administration Dextrose 1,000 mls @ 100 mls/hr 06/01/24 13:17 Dextrose 5% 1,000 Ml IVPB PRN PRN Hypoglycemia Protocol Lactated Ringer's 1,000 mls @ 100 mls/hr 06/01/24 19:10 06/07/24 06:24 Lr - Lactated Ringers Iv IV CONT 100 mls/hr .Q10H CHRISTOPHER Administration Ibuprofen 800 mg 06/06/24 13:09 Ibuprofen 400 Mg Tablet PO Q8H PRN Mild Pain (1-3) or Fever Levofloxacin 750 mg 06/05/24 18:00 06/06/24 18:18 Levofloxacin 750 Mg Tablet PO 06/08/24 18:01 750 mg DAILY@1800 [facility] Administration Methadone HCl 10 mg 06/06/24 13:00 06/07/24 09:29 Methadone Hcl (*Crx) 10 Mg Tablet PO 10 mg TID CHRISTOPHER Administration Metoclopramide HCl 10 mg 06/02/24 16:14 Metoclopramide Hcl Inj 10 Mg/2 Ml Vial IV PUSH Q6H PRN Nausea And Vomiting Oxycodone/Acetaminophen 1 tab 06/06/24 12:07 06/06/24 12:43 Oxycodone/Acetaminophen (*Crx) 10-325 Mg Tablet PO 1 tab BID PRN Administration Pain, 4-6 Rivaroxaban 15 mg 06/06/24 17:00 06/07/24 09:29 Rivaroxaban 15 Mg Tablet PO 06/27/24 16:59 15 mg BIDWM CHRISTOPHER Administration Rivaroxaban 20 mg 06/27/24 17:00 Rivaroxaban 20 Mg Tablet PO DAILY@1700 [facility] Radiology Results: ITS Impressions Chest X-Ray 06/01/24 10:23 Impression: Discoid left basilar atelectasis or scarring, otherwise clear lungs. Chest CTA 06/01/24 12:12 IMPRESSION: 1. Single pulmonary embolism in the anterior segmental pulmonary artery of the right upper lobe. No evident right heart strain. Dr. Washington discussed these findings with Dr. Beaulieu at 12:22 PM. 2. Moderate atelectasis in the bilateral lung bases. 3. 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 Constellation of findings would be most consistent with sequela of sickle cell disease. 4. Tiny gallstone. Venous Doppler Study 06/01/24 21:22 IMPRESSION: Patent bilateral lower extremity veins. No evidence of deep venous thrombosis.
[2024-06-07 15:19] LABS: Basophils Percent Auto 0.3 % (0.2-1.2); Eosinophils Absolute Auto 0.4 K/mm3 (0-0.3); Eosinophils Percent Auto 3.4 % (0-4.4); Hematocrit 23.7 % (42.0-52.0); Hemoglobin 8.3 g/dL (14.0-18.0); Immature Granulocyte Absolute 0.12 K/mm3 (0.00-0.031); Lymphocytes Absolute Auto 4.02 K/mm3 (0.9-3.2); Lymphocytes Percent Auto 33.4 % (18.3-44.2); Mean Corpuscular Hemoglobin 30.3 pg (26-34); Mean Corpuscular Volume 86.5 fl (80-100); Mean Platelet Volume 9.5 fl (7.4-10.4); Monocytes Absolute Auto 0.9 K/mm3 (0.1-0.6); Monocytes Percent Auto 7.1 % (2.6-8.5); Neutrophils Absolute Auto 6.6 K/mm3 (1.3-6.7); Neutrophils Percent Auto 54.8 % (45.5-73.1); Nucleated Red Blood Cells Perc 0.2 % (0.0-0.2); Platelet Count Result 509 k/mm3 (150-375); Red Blood Count 2.74 M/mm3 (4.6-6.20); Red Cell Distribution Width 16.8 % (11.5-14.5)
[2024-06-07 16:22] LABS: Alanine Aminotransferase 19 U/L (6-50); Albumin Level 3.6 g/dL (3.5-5.1); Alkaline Phosphatase 75 U/L (38-126); Anion Gap 11 mmol/L (4-12); Aspartate Amino Transferase 30 U/L (17-59); Bilirubin,Total 0.7 mg/dL (0.2-1.3); Blood Urea Nitrogen 5 mg/dL (9-20); Carbon Dioxide 25 mmol/L (22-30); Chloride 105 mmol/L (98-107); Estimated CRCL calculation 134 ml/min; Estimated Glomerular Filt Rate > 60; Glucose 113 mg/dL (65-110); Potassium 3.7 mmol/L (3.4-5.0); Sodium 141 mmol/L (137-145)
[2024-06-07] MEDS: levoFLOXacin 750 MG TABLET PO (18:07)
[2024-06-08] VITALS (8 sets, daily range): BP systolic 135; BP diastolic 56; PULSE 75–94; RESP 18–20; TEMP 36.3; O2SAT 98–99
[2024-06-08] MEDS: diphenhydrAMINE HCl INJ 50 MG/ML VIAL 25 MG IV PUSH ×5 (00:13→12:50)
[2024-06-08] MEDS: HYDROmorphone HCL INJ (*CRX) 2 MG/ML VIAL 3 MG IV PUSH ×5 (00:13→12:51)
[2024-06-08] MEDS: IPRATROPIUM 0.5 MG/ALBUTEROL SULFATE 2.5 MG AMPUL.NEB 3 ML INHALATION ×2 (03:13→08:27)
[2024-06-08] MEDS: RIVAROXABAN 15 MG TABLET PO (09:04)
[2024-06-08] MEDS: HYDROXYUREA (*CHEMO) 500 MG CAPSULE PO (09:04)
[2024-06-08] MEDS: methADONE HCL (*CRX) 10 MG TABLET PO ×2 (09:04→12:47)
[2024-06-08] MEDS: FOLIC ACID 1 MG TABLET PO (09:05)
[2024-06-08] MEDS: LACTATED RINGERS 1,000 ML 100 ML IV CONT (09:05)
--- NOTE | 2024-06-08 13:05 | P.DS_ITS ---
DS: Admitting Diagnosis Discharge Date 06/08/2024 Admitting Diagnosis Shortness of breath/cough DS: Discharge Diagnosis Discharge Diagnosis (1) Pulmonary embolism: Qualifiers: Acute cor pulmonale presence: without acute cor pulmonale Chronicity: acute Pulmonary embolism type: unspecified Qualified Code(s): I26.99 - Other pulmonary embolism without acute cor pulmonale Code(s): I26.99 - Other pulmonary embolism without acute cor pulmonale Status: Chronic (2) Influenza A: Code(s): J10.1 - Influenza due to other identified influenza virus with other respiratory manifestations Status: Acute (3) Sickle-cell disease with vaso-occlusive pain: Code(s): D57.00 - Hb-SS disease with crisis, unspecified Status: Acute DS: Summary Hospital Course Hospital Course: The patient presented to the emergency department with complaints of cough, shortness breast and whole body ache. He tested positive for influenza A and he has been started on Tamiflu. Chest CTA showed a single pulmonary embolism in the anterior segmental pulmonary artery of the right upper lobe without evidence of heart strain. He has been started on enoxaparin 1 milligram/kilogram b.i.d.. He was previously on warfarin however it was stopped last fall for reasons unknown to the patient. 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 Continue home regimen and follow up as an outpatient basis Acute pulmonary embolism CT showed Single pulmonary embolism in the anterior segmental pulmonary artery of the right upper lobe. No evident right heart strain. Continue Lovenox 1 milligram/kilos q.12 hour subcu Switched to xarelto venous duplex with no dvt Community-acquired pneumonia Due to flu infection possible superimposed with bacteria infection X-ray shows possible atelectasis or pneumonia Continue Tamiflu 75 mg q.12 hours p.o. for influenza a infection Started Levaquin 750 mg daily IV 06/02 Leukocytosis improving, patient remains afebrile Change Levaquin from IV to p.o. 06/05 Time Spent with Patient Time attestation: Total time spent providing and/or coordinating discharge services: 35 minutes Exam Narrative: GENERAL: well-appearing in no acute distress. Well-nourished. - EYES: EOMI. Anicteric. - HENT: Moist mucous membranes. - LUNGS: Coarse breath sound bilaterall y bilaterally, no wheezing, rhonchi, or rales. - CARDIOVASCULAR: Regular rate and rhyth m. No murmur. No JVD. - ABDOMEN: Soft, non-tender and non-dist ended. No palpable masses. - EXTREMITIES: No edema. Peripheral puls es 2+. Non-tender. - NEUROLOGIC: No focal neurological defi cits. CN II-XII grossly intact. - PSYCHIATRIC: Awake, Alert and oriented x 3. - SKIN: No rashes or lesions. Warm. - LYMPH: No cervical lymphadenopathy. DS: Data Data Completed and Pending Labs on day of discharge: Labs from last 24 hours 06/07/24 06/07/24 15:15 15:14 WBC 12.0 H RBC 2.74 L Hgb 8.3 L Hct 23.7 L MCV 86.5 MCH 30.3 MCHC 35.0 RDW 16.8 H Plt Count 509 H MPV 9.5 Immature Gran % (Auto) 1.0 H Neut % (Auto) 54.8 Lymph % (Auto) 33.4 [place] % (Auto) 7.1 Eos % (Auto) 3.4 Baso % (Auto) 0.3 Lymph # (Auto) 4.02 H [place] # (Auto) 0.9 H Eos # (Auto) 0.4 H Baso # (Auto) 0.0 Abs Immat Gran (auto) 0.12 H Absolute Neuts (auto) 6.6 Absolute Nucleated RBC 0.030 H Nucleated RBC % 0.2 Sodium 141 Potassium 3.7 Chloride 105 Carbon Dioxide 25 Anion Gap 11 BUN 5 L Creatinine 0.76 Estim Creat Clear Calc 134 Estimated GFR > 60 Glucose 113 H Calcium 9.0 Magnesium 2.0 Total Bilirubin 0.7 AST 30 ALT 19 Alkaline Phosphatase 75 Total Protein 7.0 Albumin 3.6 Imaging Radiologist's impression: ITS Impressions Chest X-Ray 06/01/24 10:23 Impression: Discoid left basilar atelectasis or scarring, otherwise clear lungs. Chest CTA 06/01/24 12:12 IMPRESSION: 1. Single pulmonary embolism in the anterior segmental pulmonary artery of the right upper lobe. No evident right heart strain. Dr. Washington discussed these findings with Dr. Beaulieu at 12:22 PM. 2. Moderate atelectasis in the bilateral lung bases. 3. 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 Constellation of findings would be most consistent with sequela of sickle cell disease. 4. Tiny gallstone. Venous Doppler Study 06/01/24 21:22 IMPRESSION: Patent bilateral lower extremity veins. No evidence of deep venous thrombosis. Discharge Plan Discharge Attending physician on discharge: Shayne Davis Consulting providers: Jone Marks Discharging Clinician: Shayne Davis Anticipated Discharge Date/Time: 06/08/24 13:07 Patient Disposition: Home, Self-Care Activity: as tolerated Diet: heart healthy Patient Instructions: Antibiotic Form, Rivaroxaban (By mouth) Patient Language: Khmer Stand Alone Forms: General Discharge Information Follow-up/Referrals: Jone Marks MD [Primary Care Provider] - 1 Week Discharge Medications: New Xarelto 15 mg Tablet 15 mg PO BIDWM Qty: 38 0RF Xarelto 20 mg Tablet 20 mg PO DAILY@1700 Qty: 30 0RF Rx Instructions: after 15 mg twice daily dosing is complete Continued folic acid 1 mg Tablet 1 mg PO DAILY methadone 10 mg tablet 10 mg PO TID Rx Instructions: 0900, 1700, 2100 oxycodone-acetaminophen 10-325 mg tablet 1 tablet PO BID PRN (Reason: Pain, Moderate) hydroxyurea 500 mg Capsule 500 mg PO QAM Qty: 30 0RF ibuprofen 800 mg tablet 800 mg PO PRN Discontinued warfarin 10 mg tablet 10 mg PO HS Patient Comments: Takes with 2mg tablet for dose of 12mg warfarin 2 mg tablet 4 mg PO DAILY Date of admission: 06/02/24 13:25 Primary Care Provider: Jone Marks Admitting Provider: Shayne Davis Attending physician on admission: Shayne Davis Condition: Stable
[2024-06-08] MEDS: levoFLOXacin 750 MG TABLET PO (13:52)
== END 2024-06-08 14:30 | disposition home or self-care (01) | DRG 175 ==
LOC: ANHED 10:16 → ANH3MED 17:21
PROVIDERS: Emergency Medicine; Hospitalist; Physician Assistant; Admitting Provider General Practice; Emergency Provider Physician Assistant; PCP Internal Medicine Hematology & Oncology; Visit Provider Internal Medicine
DX: I26.99 Other pulmonary embolism without acute cor pulmonale (principal); D57.00 Hb-SS disease with crisis, unspecified; J10.08 Influenza due to other identified influenza virus with other specified pneumonia; J15.9 Unspecified bacterial pneumonia; J10.00 Influenza due to other identified influenza virus with unspecified type of pneumonia; J18.9 Pneumonia, unspecified organism; J98.11 Atelectasis; Z79.01 Long term (current) use of anticoagulants; Z86.718 Personal history of other venous thrombosis and embolism; Z79.899 Other long term (current) drug therapy
CPT/HCPCS: 36415; 71046; 71275; 80048; 80053; 83615; 83735; 84484; 85025; 85027; 85046; 85380; 85610; 85730; 87040; 87637; 93005; 93970; 94640; 96361; 96372; 96374; 96375; 96376; 99285; A9270; G0378; J1171; J1200; J1650; J1956; J2405; J7030; J7120; Q9967

== ENCOUNTER 2024-07-20 13:09 | Outpatient (CLI) | payer MEDICARE, MEDICAID, SELFPAY ==
[2024-07-20 13:26] LABS: Basophils Absolute Auto 0.1 K/mm3 (0.0-0.1); Basophils Percent Auto 0.5 % (0.2-1.2); Eosinophils Absolute Auto 0.3 K/mm3 (0-0.3); Eosinophils Percent Auto 3.1 % (0-4.4); Hematocrit 23.2 % (42.0-52.0); Hemoglobin 8.2 g/dL (14.0-18.0); Immature Granulocyte Absolute 0.04 K/mm3 (0.00-0.031); Immature Granulocyte Percent A 0.4 % (0-0.5); Lymphocytes Absolute Auto 2.97 K/mm3 (0.9-3.2); Mean Corpuscular HGB Conc 35.3 g/dl (32-36); Mean Corpuscular Hemoglobin 32.5 pg (26-34); Mean Corpuscular Volume 92.1 fl (80-100); Mean Platelet Volume 9.5 fl (7.4-10.4); Monocytes Absolute Auto 0.9 K/mm3 (0.1-0.6); Monocytes Percent Auto 8.4 % (2.6-8.5); Neutrophils Percent Auto 58.6 % (45.5-73.1); Nucleated Red Blood Cells Perc 0.4 % (0.0-0.2); Platelet Count Result 314 k/mm3 (150-375); Red Blood Count 2.52 M/mm3 (4.6-6.20); Red Cell Distribution Width 16.6 % (11.5-14.5); White Blood Count 10.2 K/mm3 (4.5-10.0)
[2024-07-20 13:28] LABS: Blood Urea Nitrogen 8 mg/dL (8-26); Carbon Dioxide 24 mmol/L (22-30); Chloride 108 mmol/L (98-109); Estimated Glomerular Filt Rate > 60; Glucose 111 mg/dL (70-105); Ionized Calcium (POC) 1.21 mmol/L (1.11-1.31); Sodium 142 mmol/L (138-146)
[2024-07-20 13:52] LABS: INR 1.2; Prothrombin Time 15.6 Seconds (11.1-14.7)
[2024-07-20 14:03] LABS: Alanine Aminotransferase 20 U/L (6-50); Alkaline Phosphatase 90 U/L (38-126); Anion Gap 7 mmol/L (4-12); Aspartate Amino Transferase 28 U/L (17-59); Bilirubin,Total 1.2 mg/dL (0.2-1.3); Blood Urea Nitrogen 10 mg/dL (9-20); Calcium 8.6 mg/dL (8.4-10.2); Carbon Dioxide 25 mmol/L (22-30); Chloride 109 mmol/L (98-107); Estimated Glomerular Filt Rate > 60; Glucose 113 mg/dL (65-110); Sodium 141 mmol/L (137-145)
--- OUTSIDE RECORDS SUMMARY | 2024-07-20 15:00 | XMS_ITS | Clinical Summary ---
Author Organization [facility] Address [address] [place] [address] Phone Care Team Providers Care Special Collections Librarian Name Role Phone Provider, None Primary Care [...] 500 MG CapsuleIndicati ons:Hb-SS disease with crisis Take 1 Cap by mouth daily. 60 [...] without crisis 08/30/2017 Sickle cell disease 11/16/2016 Immunizations Immunization Administration Dates Next Due HIB [...] measures to stabilize the patient. Care Teams Special Collections Librarian Relationship Specialty Start Date End Date Provider, None [place] PCP - General 11/28/18
--- OUTSIDE RECORDS SUMMARY | 2024-07-20 15:00 | XMS_ITS | Clinical Summary ---
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 Hospital Encounter [facility] [address] [place] [id number] Chronic kidney disease, stage 2 (mild); Essential [...] syndrome Narcotic dependence (HCC) Deep vein thrombosis (HCC) Family History Medical History Relation Name [...] on file Legal Sex Male 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 LEONORA: LEONORA Report ID: [id number] Reading Location: [place] [address] Procedure Note Laurent Suárez MD - 04/28/2024 [...] Raphael Suárez M.D. LEONORA: LEONORA Report ID: [id number] Reading Location: [id number] Carlos Canseco MD IM US PROCEDURES Final Resul t from Last 3 Months Insurance [facility] Member Subscriber Plan / Payer (Ef fective 2019-Present) Name:Quan Downing Relation to Subscriber:Self Name:Quan Downing Payer ID:[id number] (NAIC) Group ID:Not on file Type:MEDICAID RISK OTHER Address: [address] [id number] MEDICARE [facility] [place] MEDICARE Advance Directives For more information, please contact: [phone] * Full Code (Latest Code Status on [...] Agents on File Name Relationship Healthcare Agent Maamehi p Communication Ya Ashkanw Friend Health Care Agent Paulette Rios Mother Health Care Agent Care Teams Manager Privacy Relationship Specialty Start Date End Date Jone Marks MD [address] [place] [id number] [facility] - General 01/26/19
--- OUTSIDE RECORDS SUMMARY | 2024-07-20 15:00 | XMS_ITS | Clinical Summary ---
Author Organization [facility] Facility Address [address] [place] [id number] Care Team Providers Care Plate Painter Name Role Phone Unavailable Primary Care Provider [...] Active Active Problems No known active problems Family History Medical History Relation Comments Hyperlipidemia [...] Comments Blood Pressure 120/72 04/14/2024 10:45 AM CADDY Pulse 80 04/14/2024 10:45 AM CADDY Temperature 36.7 C (98.1 F) 04/14/2024 10:45 AM CADDY Respiratory Rate - - Oxygen Saturation 97% 04/14/2024 10:45 AM CADDY Inhaled Oxygen Concentration - - Weight 104 kg (229 lb) 04/14/2024 10:45 AM CADDY Height 177.8 cm (5' 10 ) 04/14/2024 10:45 AM CADDY Body Mass Index 32.86 04/14/2024 10:45 AM CADDY Plan of Treatment Health Maintenance Due Date Last Done Comments Pneumococcal Vaccine: Pediat rics (0 to 5 Years) and At-Risk Patients (6 to 64 Years) (1 of 2 - PCV) 1989 Hepatitis B Vaccine (1 of 3 - 19+ 3-dose series) 2002 Influenza Vaccine (Season Ended) 2024 02/24/2020, 01/01/2019, 01/16/2018, Additional history exists Insurance MEDICARE YEIMY QUEZADA [id number]
--- OUTSIDE RECORDS SUMMARY | 2024-07-20 15:00 | XMS_ITS | Encounter Summary ---
Author Organization [facility] [employer] [facility] Address [address] [place] [address] Care Team Providers Care Calculation Clerk Name Role Phone Unavailable Primary Care Provider Unavailabl e Reason for Visit * Reason Comments Med Refill Encounter Details Date Type Department Care Team (Late Contact Info) Description 04/13/2022 Refill [facility] Oncology [facility] Hematology [facility] [address] [place] [address] Jone Marks MD [address] [facility] [place] [address] [place] [phone] 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
--- OUTSIDE RECORDS SUMMARY | 2024-07-20 15:00 | XMS_ITS | Referral Summary ---
Author Organization [facility] Address [address] [place] [address] Care Team Providers Care Professional Skater Name Role Phone Jone Marks MD Primary Care Provider [phone] Encounters Date Type Department Care Team Description 04/27/2024 11:00 AM DIESEL ELECTRICIAN - 04/27/2024 11:59 PM DIESEL ELECTRICIAN Hospital Encounter [facility] 1 [place] [address] Chronic kidney disease, stage 2 (mild); Essential [...] on file Legal Sex Male 12:32 AM DIESEL ELECTRICIAN Gender Identity Not on file Sexual Orientation [...] Read Routine (OP Routine) 04/27/2024 11:37 AM DIESEL ELECTRICIAN Chronic kidney disease, stage 2 (mild) Essential (primary) hypertension from Last 3 Months Results * US Kidney Complete (04/27/2024 11:37 AM DIESEL ELECTRICIAN) Anatomical Region Laterality Modality Kidney N/A Ultrasound 04/28/2024 9:47 AM DIESEL ELECTRICIAN Narrative 04/28/2024 9:51 AM DIESEL ELECTRICIAN EXAM DESCRIPTION: US KIDNEY COMPLETE REASON FOR [...] Raphael Suárez M.D. LEONORA: LEONORA Report ID: [id number] Reading Location: [id number] Procedure Note Laurent Suárez MD - 04/28/2024 [...] Raphael Suárez M.D. LEONORA: LEONORA Report ID: [id number] Reading Location: [place] [address] us Carlos Canseco MD IMG US PROCEDURES Final Resul t from Last 3 Months Insurance [facility] MEDICARE [facility] MEDICARE Advance Directives For more information, please contact: [phone] * Full Code (Latest Code Status on [...] [facility] Care Agent Care Teams Professional Skater Relationship Specialty Start Date End Date Jone Marks MD [address] [phone] PCP - General 01/26/19
--- OUTSIDE RECORDS SUMMARY | 2024-07-20 15:00 | XMS_ITS | Encounter Summary ---
Author Organization [facility] [employer] [facility] Address [address] [place] [address] Care Team Providers Care Front End Loader Driver Name Role Phone Unavailable Primary Care Provider Unavailabl e Encounter Details Date Type Department Care Team (Late st Contact Info) Description 08/21/2021 History & Physical [facility] Oncology and Hematology [facility] [address] [place] [address] Vonnie Portillo Social History Tobacco [...] Description 07/22/2024 1:15 PM CDT Office Visit [facility] Oncology and Hematology [facility] [address] [place] [address] Jone Marks MD [address] [facility] [address] [place] [address] documented as of this encounter Visit Diagnoses Not on filedocumented in this encounter
--- OUTSIDE RECORDS SUMMARY | 2024-07-20 15:00 | XMS_ITS | Clinical Summary ---
Author Organization [facility] Address [address] [address] Care Team Providers Care Instrument/Control Technician Name Role Phone Unavailable Primary Care [...] mouth daily. 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) 06/15/2024 Orders Only [facility] Oncology and Hematology - [place] [address] [place] [address] Jone Marks MD Other acute pulmonary embolism without acute cor pulmonale (CMS/HCC) 06/12/2024 Refill [facility] Oncology and Hematology - [place] [address] [place] [address] Jone Marks MD 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) 06/09/2024 External Device Data STL ABSTRACTION Provider, Abstract 05/19/2024 External Device Data STL ABSTRACTION Provider, Abstract 05/18/2024 Orders Only [facility] Oncology and Hematology [facility] [address] [place] [address] Jone Marks MD Other acute pulmonary embolism without acute cor pulmonale (CMS/HCC) 05/07/2024 Abstract [facility] Oncology and Hematology [facility] [address] [place] [address] Jone Marks MD 05/07/2024 Abstract [facility] Oncology and Hematology [facility] [address] [place] [address] Jone Marks MD 05/06/2024 External Device Data STL ABSTRACTION Provider, Abstract 05/06/2024 External Device Data STL ABSTRACTION Provider, Abstract 05/05/2024 Refill [facility] Oncology and Hematology [facility] [address] [place] [address] Jone Marks MD 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 ([facility]) from Last 3 Months Family History Medical [...] cm (5' 10 ) 03/29/2021 12:09 PM STILL OPERATOR HELPER Body Mass Index 32.14 03/29/2021 12:09 PM STILL OPERATOR HELPER Plan of Treatment Upcoming Encounters Date Type Department Care Team (Late st Contact Info) Description 07/22/2024 1:15 PM CDT Office Visit [facility] and [facility] - [place] [address] [facility] [address] [place] [address] Jone Marks MD [address] [facility] [address] [place] [address] Health Maintenance Due Date Last Done Comments Pre-Diabetes and Diabetes Screening 1983 HEPATITIS B VACCINES (1 of 3 - 19+ 3-dose series) 2002 Preventative Visit-Managed Medicaid 2002 INFLUENZA VACCINE (#1) 2023 0, 01/01/2019, 01/16/2018, Additional history exists DTAP/TDAP/TD VACCINES (2 - Td or Tdap) 12/21/2033 12/22/2023 HPV VACCINES Aged Out No longer eligi ble based on patient's age to complete this topic Insurance [place]
--- OUTSIDE RECORDS SUMMARY | 2024-07-20 15:00 | XMS_ITS | Clinical Summary ---
Author Organization [facility] [employer] Address [address] [place] [address] Care Team Providers Care Hypoid Gear Tester Name Role Phone Unavailable Primary Care Provider Unavailabl e Source Comments [facility],non-owned Affiliates and Associated Physician Practices is amultiple site organization consisting of ambulatory clinics and hospital sitesin [place], [place], [place] and [place]. This disclosure is being madepursuant to the Care Everywhere program and may not contain all information available regarding this patient. Last updated 18.[facility] [employer] Allergies Active Allergy Reactions Criticality Noted Date [...] TRIVALENT; 6MO+), 0.5 ML (IIV3) 01/23/2016 MENINGOCOCCAL ACWY MENVEO 12/21/2023 Meningococcal B Recombinant 2 Dose, IM [...] care, and heating? Not very hard 12/15/2023 [facility] [place] of Occupat ional Health - Occupational Stress [...] 2002 COVID-19 VACCINE ( - season) 2023 MENINGOCOCCAL (Group B) VACCINE SHARED DECISION-MAKING (2 of 5 - Increased Risk Bexsero 3-dose series) 01/18/2024 12/21/2023 MENINGOCOCCAL GROUPS A/C/Y/W VACCINE (2 - Risk 2-dose series) 02/15/2024 12/21/2023 DEPRESSION SCREENING 04/15/2024 INFLUENZA VACCINE (Season Ended) 2024 02/24/2020, 01/01/2019, 01/16/2018, Additional history exists SCREENING FOR DIABETES 12/25/2026 , 12/25/2023, 12/25/2023, Additional history exists LIPID TESTING [...] 7 - 26 mg/dL 12/26/2023 3:11 AM [facility] Creatinine 1.14 0.71 - 1.16 mg/dL 12/26/2023 3:11 AM [facility] Sodium 138 136 - 145 mmol/L 12/26/2023 3:11 AM [facility] Potassium 3.8 3.5 - 4.5 mmol/L 12/26/2023 3:11 AM [facility] Chloride 106 98 - 107 mmol/L 12/26/2023 3:11 AM [facility] CO2 24 22 - 29 mmol/L 12/26/2023 3:11 AM [facility] Glucose 107 70 - 115 mg/dL 12/26/2023 3:11 AM [facility] Calcium 9.2 8.4 - 10.2 mg/dL 12/26/2023 3:11 AM [facility] Protein Total 8.3 6.0 - 8.3 g/dL 12/26/2023 3:11 AM [facility] Albumin 2.7(L) 3.4 - 5.0 g/dL 12/26/2023 3:11 AM [facility] Bilirubin Total 0.6 0.2 - 1.2 mg/dL 12/26/2023 3:11 AM [facility] Alkaline Phosphatase 79 40 - 150 U/L 12/26/2023 3:11 AM [facility] ALT 52 5 - 55 U/L 12/26/2023 3:11 AM [facility] AST 24 5 - 34 U/L 12/26/2023 3:11 AM [facility] Anion Gap 8 6 - 16 12/26/2023 3:11 AM [facility] BUN/Creatinine Ratio 7 7 - 23 12/26/2023 3:11 AM [facility] Osmolality Calculated 285 275 - 295 mOsm/kg 12/26/2023 3:11 AM [facility] Albumin/Globulin Ratio 0.5(L) 1.1 - 2.3 12/26/2023 3:11 AM [facility] eGFR by CKD-EPI 83(L) >=90 mL/min/1.7 3 m2 12/26/2023 3:11 AM [facility] Blood BLOOD SPECIMEN / Unknown Lab Venipuncture / Unknown 12/26/2023 1:54 AM CDT 12/26/2023 2:57 AM CDT Natalia Marks MD LAB - CHEMISTRY NAZARIO GRANT [facility] Organization Address City/State/ZIP Co de Phone Number [facility] [address] [place] [address], [facility] [phone] * HEPATITIS C AB SCREEN RFLX NAAT QUANT (12/19/2023 5:04 AM CDT) Hepatitis C Antibody Non-react daniel Non-reac tive 12/19/2023 6:17 AM [facility] Comment:Hepatitis C Antibody screen indicates no [...] - CHEMISTRY NAZARIO GRANT Performing Organization Address City/[facility]/ZIP Co de Phone Number [address] [address], [facility] [phone] * HIV-1 HIV-2 ANTIBODY + HIV P24 AG PANEL (12/19/2023 5:04 AM CDT) Pathologist [facility] HIV Antigen/Antibod y 1 & 2 Non-reacti ve Non-react daniel 12/19/2023 6:[address] [facility] Comment:No Laboratory eviden ce of HIV infection. Blood BLOOD SPECIMEN / Unknown Venipuncture / Unknown 12/19/2023 5:04 AM CDT 12/19/2023 5:08 AM CDT German Damon MD LAB - CHEMISTRY NAZARIO GRANT Performing Organization Address [facility] Co de Phone Number [address] [address], [facility] [phone] * (ABNORMAL) LIPID PROFILE (12/18/2023 3:46 AM CDT) Cholesterol Total 100 <200 mg/dL 12/18/2023 4:[address] [facility] HDL 7(L) >40 mg/dL 12/18/2023 4:[address] [facility] Comment: ATP III Classification of HDL Cholesterol: <40 mg/dL: Considered a major risk factor. >60 mg/dL: Considered a negative risk factor. LDL Calculated 54 <100 mg/dL 12/18/2023 4:[address] [facility] Comment: ATP III Classification of LDL Cholesterol: <100 mg/dL: Optimal 100 - 129 mg/dL: Near Optimal/Above Optimal 130 - 159 mg/dL: Borderline High 160 - 189 mg/dL: High >190 mg/dL: Very High Triglycerides 195(H) <150 mg/dL 12/18/2023 4:[address] [facility] Comment: ATP III Classification of Triglycerides: <150 mg/dL: Normal 150 - 199 mg/dL: Borderline High 200 - 400 mg/dL: High >500 mg/dL: Very High Blood BLOOD SPECIMEN / Unknown Venipuncture / Unknown 12/18/2023 3:46 AM CDT 12/18/2023 4:14 AM CDT German Damon MD LAB - CHEMISTRY NAZARIO Pascual Organization Address City/State/ZIP Co de Phone Number [facility] [address] [place] [address], [facility] [phone] from Last 3 Months or Most Recently Relevant to Health Maintenance Advance Directives * Full Code (Latest Code Status on File) Date Activated Date Inactivated Comments 12/15/2023 10:14 PM 12/29/2023 3:08 PM
== END 2024-07-20 13:10 | disposition home or self-care (01) ==
PROVIDERS: PCP Internal Medicine Hematology & Oncology; Visit Provider Internal Medicine Hematology & Oncology
DX: D57.20 Sickle-cell/Hb-C disease without crisis (principal); I26.99 Other pulmonary embolism without acute cor pulmonale
CPT/HCPCS: 36415; 80047; 80053; 85025; 85610

== ENCOUNTER 2024-07-21 10:47 | Inpatient (IN) | payer MEDICARE, MEDICAID, SELFPAY ==
[2024-07-21] VITALS (11 sets, daily range): BP systolic 114–128; BP diastolic 69–83; PULSE 66–105; RESP 16–20; TEMP 36.4–36.6; O2SAT 89–100; BMI 31.6
--- NOTE | ~2024-07-21 | XR_ITS ---
CHEST RADIOGRAPH CLINICAL HISTORY: hypoxia; sickle cell . COMPARISON: 06/01/2024 TECHNIQUE: Single portable view of the chest. FINDINGS The cardiomediastinal silhouette is unremarkable. Interstitial thickening within the bilateral lung bases, left greater than right. Traction bronchiectasis is also noted. The remainder of the lungs are clear. IMPRESSION: Chronic interstitial change, without focal infiltrate or effusion. Reviewed, dictated and finalized at location A.
--- OUTSIDE RECORDS SUMMARY | 2024-07-21 12:14 | XMS_ITS | Clinical Summary ---
Author Organization [facility] [employer] Address [address] [place] [address] Care Team Providers Care Motor And Controls Tester Name Role Phone Unavailable Primary Care Provider Unavailabl e Source Comments [facility],non-owned Affiliates and Associated Physician Practices is amultiple site organization consisting of ambulatory clinics and hospital sitesin [place], [place], [place] and [place]. This disclosure is being madepursuant to the Care Everywhere program and may not contain all information available regarding this patient. Last updated 18.[facility] [employer] Allergies Active Allergy Reactions Criticality Noted Date [...] care, and heating? Not very hard 12/15/2023 [facility] [place] of Occupat ional Health - Occupational Stress [...] place to sleep or slept in a custodial (including now)? No 12/15/2023 Sex and Gender [...] 7 - 26 mg/dL 12/26/2023 3:11 AM [facility] Creatinine 1.14 0.71 - 1.16 mg/dL 12/26/2023 3:11 AM [facility] Sodium 138 136 - 145 mmol/L 12/26/2023 3:11 AM [facility] Potassium 3.8 3.5 - 4.5 mmol/L 12/26/2023 3:11 AM [facility] Chloride 106 98 - 107 mmol/L 12/26/2023 3:11 AM [facility] CO2 24 22 - 29 mmol/L 12/26/2023 3:11 AM [facility] Glucose 107 70 - 115 mg/dL 12/26/2023 3:11 AM [facility] Calcium 9.2 8.4 - 10.2 mg/dL 12/26/2023 3:11 AM [facility] Protein Total 8.3 6.0 - 8.3 g/dL 12/26/2023 3:11 AM [facility] Albumin 2.7(L) 3.4 - 5.0 g/dL 12/26/2023 3:11 AM [facility] Bilirubin Total 0.6 0.2 - 1.2 mg/dL 12/26/2023 3:11 AM [facility] Alkaline Phosphatase 79 40 - 150 U/L 12/26/2023 3:11 AM [facility] ALT 52 5 - 55 U/L 12/26/2023 3:11 AM [facility] AST 24 5 - 34 U/L 12/26/2023 3:11 AM [facility] Anion Gap 8 6 - 16 12/26/2023 3:11 AM [facility] BUN/Creatinine Ratio 7 7 - 23 12/26/2023 3:11 AM [facility] Osmolality Calculated 285 275 - 295 mOsm/kg 12/26/2023 3:11 AM [facility] Albumin/Globulin Ratio 0.5(L) 1.1 - 2.3 12/26/2023 3:11 AM [facility] eGFR by CKD-EPI 83(L) >=90 mL/min/1.7 3 m2 12/26/2023 3:11 AM [facility] Blood BLOOD SPECIMEN / Unknown Lab Venipuncture / Unknown 12/26/2023 1:54 AM CDT 12/26/2023 2:57 AM CDT Natalia Marks MD LAB - CHEMISTRY NAZARIO GRANT [facility] Organization Address City/State/ZIP Co de Phone Number [facility] [address] [place] [phone], [facility] [phone] * HEPATITIS C AB SCREEN RFLX NAAT QUANT (12/19/2023 5:04 AM CDT) Hepatitis C Antibody Non-react daniel Non-reac tive 12/19/2023 6:17 AM [facility] Comment:Hepatitis C Antibody screen indicates [...] - CHEMISTRY NAZARIO GRANT Performing Organization Address City/[facility]/ZIP Co de Phone Number [address] [address], [facility] [phone] * HIV-1 HIV-2 ANTIBODY + HIV P24 AG PANEL (12/19/2023 5:04 AM CDT) Pathologist [facility] HIV Antigen/Antibod y 1 & 2 Non-reacti ve Non-react daniel 12/19/2023 6:17 AM T [facility] Comment:No Laboratory eviden ce of HIV infection. Blood BLOOD SPECIMEN / Unknown Venipuncture / Unknown 12/19/2023 5:04 AM CDT 12/19/2023 5:08 AM CDT German Damon MD LAB - CHEMISTRY NAZARIO GRANT Performing Organization Address [facility] Co de Phone Number [address] [address], [facility] [phone] * (ABNORMAL) LIPID PROFILE (12/18/2023 3:46 AM CDT) Cholesterol Total 100 <200 mg/dL 12/18/2023 4:46 AM T [facility] HDL 7(L) >40 mg/dL 12/18/2023 4:46 AM T [facility] Comment: ATP III Classification of HDL Cholesterol: <40 mg/dL: Considered a major risk factor. >60 mg/dL: Considered a negative risk factor. LDL Calculated 54 <100 mg/dL 12/18/2023 4:46 AM T [facility] Comment: ATP III Classification of LDL Cholesterol: <100 mg/dL: Optimal 100 - 129 mg/dL: Near Optimal/Above Optimal 130 - 159 mg/dL: Borderline High 160 - 189 mg/dL: High >190 mg/dL: Very High Triglycerides 195(H) <150 mg/dL 12/18/2023 4:46 AM CDT [facility] Comment: ATP III Classification of Triglycerides: <150 mg/dL: Normal 150 - 199 mg/dL: Borderline High 200 - 400 mg/dL: High >500 mg/dL: Very High Blood BLOOD SPECIMEN / Unknown Venipuncture / Unknown 12/18/2023 3:46 AM CDT 12/18/2023 4:14 AM CDT German Damon MD LAB - CHEMISTRY NAZARIO Pascual Organization Address City/State/ZIP Co de Phone Number [facility] [address] [place] [address], [facility] [phone] from Last 3 Months or Most Recently Relevant to Health Maintenance Advance Directives * Full Code (Latest Code Status on File) Date Activated Date Inactivated Comments 12/15/2023 10:14 PM 12/29/2023 3:08 PM
--- OUTSIDE RECORDS SUMMARY | 2024-07-21 12:14 | XMS_ITS | Clinical Summary ---
Author Organization [facility] Address [address] [place] [address] Phone Care Team Providers Care Disk Recoater Name Role Phone Provider, None Primary Care [...] measures to stabilize the patient. Care Teams Disk Recoater Relationship Specialty Start Date End Date Provider, None [place] PCP - General 11/28/18
--- OUTSIDE RECORDS SUMMARY | 2024-07-21 12:14 | XMS_ITS | Encounter Summary ---
Author Organization [facility] [employer] [facility] Address [address] [place] [address] Care Team Providers Care Rn Bone Marrow Transplant Name Role Phone Unavailable Primary Care Provider Unavailabl e Reason for Visit * Reason Comments Med Refill Encounter Details Date Type Department Care Team (Late Contact Info) Description 04/13/2022 Refill 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
--- OUTSIDE RECORDS SUMMARY | 2024-07-21 12:14 | XMS_ITS | Encounter Summary ---
Author Organization [facility] [employer] [facility] Address [address] [place] [address] Care Team Providers Care School Occupational Therapist Name Role Phone Unavailable Primary Care Provider Unavailabl e Encounter Details Date Type Department Care Team (Late st Contact Info) Description 08/21/2021 History & Physical [facility] Oncology and Hematology [facility] [address] [place] [address] Vonnie Portillo Social History Tobacco [...] Description 07/22/2024 1:15 PM CDT Office Visit [facility] Oncology and Hematology [facility] [address] [place] [address] Jone Marks MD [address] [facility] [address] [place] [address] documented as of this encounter Visit Diagnoses Not on filedocumented in this encounter
--- OUTSIDE RECORDS SUMMARY | 2024-07-21 12:14 | XMS_ITS | Clinical Summary ---
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) 06/15/2024 Orders Only [facility] - [place] [address] [place] [address] Jone Marks MD Other acute pulmonary embolism without acute cor pulmonale (CMS/HCC) 06/12/2024 Refill [facility] - [place] [address] [place] [address] Jone Marks MD 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) 06/09/2024 External Device Data STL ABSTRACTION Provider, Abstract 05/19/2024 External Device Data STL ABSTRACTION Provider, Abstract 05/18/2024 Orders Only [facility] [address] [place] [address] Jone Marks MD Other acute pulmonary embolism without acute cor pulmonale (CMS/HCC) 05/07/2024 Abstract [facility] [address] [place] [address] Jone Marks MD 05/07/2024 Abstract [facility] [address] [place] [address] Jone Marks MD 05/06/2024 External Device Data STL ABSTRACTION Provider, Abstract 05/06/2024 External Device Data STL ABSTRACTION Provider, Abstract 05/05/2024 Refill [facility] [address] [place] [phone] Jone Marks MD 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 ([facility]) from Last 3 Months Family History Medical [...] cm (5' 10 ) 03/29/2021 12:09 PM LAN MANAGER Body Mass Index 32.14 03/29/2021 12:09 PM LAN MANAGER Plan of Treatment Upcoming Encounters Date Type Department Care Team (Late st Contact Info) Description 07/22/2024 1:15 PM CDT Office Visit [facility] - [place] [address] [facility] [address] [place] [address] Jone Marks MD [address] [facility] [facility] [facility] [address] [place] [address] Health Maintenance Due Date Last [...]
--- OUTSIDE RECORDS SUMMARY | 2024-07-21 12:14 | XMS_ITS | Referral Summary ---
Author Organization [facility] Address [address] [place] [address] Care Team Providers Care Manager Creative Services Name Role Phone Jone Marks MD Primary Care Provider [phone] Encounters Date Type Department Care Team Description 04/27/2024 11:00 AM ORNAMENTAL PLASTERER HELPER - 04/27/2024 11:59 PM ORNAMENTAL PLASTERER HELPER Hospital Encounter [facility] [address] [place] [address] Chronic kidney disease, stage 2 (mild); Essential [...] on file Legal Sex Male 12:32 AM ORNAMENTAL PLASTERER HELPER Gender Identity Not on file Sexual Orientation [...] Read Routine (OP Routine) 04/27/2024 11:37 AM ORNAMENTAL PLASTERER HELPER Chronic kidney disease, stage 2 (mild) Essential (primary) hypertension from Last 3 Months Results * US Kidney Complete (04/27/2024 11:37 AM ORNAMENTAL PLASTERER HELPER) Anatomical Region Laterality Modality Kidney N/A Ultrasound 04/28/2024 9:47 AM ORNAMENTAL PLASTERER HELPER Narrative 04/28/2024 9:51 AM ORNAMENTAL PLASTERER HELPER EXAM DESCRIPTION: US KIDNEY COMPLETE REASON FOR [...] Raphael Suárez M.D. LEONORA: LEONORA Report ID: [id number] Reading Location: [id number] Procedure Note Laurent Suárez MD - 04/28/2024 [...] Raphael Suárez M.D. LEONORA: LEONORA Report ID: [id number] Reading Location: [place] [address] us Carlos Canseco MD IMG US PROCEDURES Final Resul t from Last 3 Months Insurance [facility] MEDICARE [facility] MEDICARE Advance Directives For more information, please contact: [phone] * Full Code (Latest Code Status on [...] Mother Health Care Agent Care Teams Manager Creative Services Relationship Specialty Start Date End Date Jone Marks MD [address] [id number] PCP - General 01/26/19
--- OUTSIDE RECORDS SUMMARY | 2024-07-21 12:14 | XMS_ITS | Clinical Summary ---
Author Organization [facility] Address [address] [place] [address] Care Team Providers Care Tombstone Carver Name Role Phone Jone Marks MD Primary Care Provider [phone] Allergies Active Allergy Reactions Criticality Noted Date [...] Department Care Team Description 04/27/2024 11:00 AM STRIP CLEANER - 04/27/2024 11:59 PM STRIP CLEANER Hospital Encounter [facility] [address] [place] [address] Chronic kidney disease, stage 2 (mild); Essential [...] on file Legal Sex Male 12:32 AM STRIP CLEANER Gender Identity Not on file Sexual Orientation [...] Read Routine (OP Routine) 04/27/2024 11:37 AM STRIP CLEANER Chronic kidney disease, stage 2 (mild) Essential (primary) hypertension from Last 3 Months Results * US Kidney Complete (04/27/2024 11:37 AM STRIP CLEANER) Anatomical Region Laterality Modality Kidney N/A Ultrasound 04/28/2024 9:47 AM STRIP CLEANER Narrative 04/28/2024 9:51 AM STRIP CLEANER EXAM DESCRIPTION: US KIDNEY COMPLETE REASON FOR [...] Raphael Suárez M.D. LEONORA: LEONORA Report ID: [id number] Reading Location: [place] [address] Procedure Note Laurent Suárez MD - 04/28/2024 [...] Raphael Suárez M.D. LEONORA: LEONORA Report ID: [id number] Reading Location: [id number] Carlos Canseco MD IM US PROCEDURES Final Resul t from Last 3 Months Insurance [facility] Member Subscriber Plan / Payer (Ef fective 2019-Present) Name:Quan Downing Relation to Subscriber:Self Name:Quan Downing Payer ID:[id number] (NAIC) Group ID:Not on file Type:MEDICAID RISK OTHER Address: [address] [id number] MEDICARE [facility] Address: [address] [address] [facility] [employer] MEDICARE Advance Directives For more information, please contact: [phone] * Full Code (Latest Code Status on [...] Rios Mother Health Care Agent Care Teams Tombstone Carver Relationship Specialty Start Date End Date Jone Marks MD [address] [place] [address] [facility] - General 01/26/19
--- OUTSIDE RECORDS SUMMARY | 2024-07-21 12:14 | XMS_ITS | Clinical Summary ---
Author Organization [facility] Address [address] [place] [id number] Care Team Providers Care Bone Worker Name Role Phone Unavailable Primary Care Provider [...] Comments Blood Pressure 120/72 04/14/2024 10:45 AM EVENTS DIRECTOR Pulse 80 04/14/2024 10:45 AM EVENTS DIRECTOR Temperature 36.7 C (98.1 F) 04/14/2024 10:45 AM EVENTS DIRECTOR Respiratory Rate - - Oxygen Saturation 97% 04/14/2024 10:45 AM EVENTS DIRECTOR Inhaled Oxygen Concentration - - Weight 104 kg (229 lb) 04/14/2024 10:45 AM EVENTS DIRECTOR Height 177.8 cm (5' 10 ) 04/14/2024 10:45 AM EVENTS DIRECTOR Body Mass Index 32.86 04/14/2024 10:45 AM EVENTS DIRECTOR Plan of Treatment Health Maintenance Due Date Last Done Comments Pneumococcal Vaccine: Pediat rics (0 to 5 Years) and At-Risk Patients (6 to 64 Years) (1 of 2 - PCV) 1989 Hepatitis B Vaccine (1 of 3 - 19+ 3-dose series) 2002 Influenza Vaccine (Season Ended) 2024 02/24/2020, 01/01/2019, 01/16/2018, Additional history exists Insurance MEDICARE [place] [id number]
--- NOTE | 2024-07-21 14:19 | ED_ITS ---
HPI - General Adult General Chief complaint: Unspecified <Yolie Busch MD - Last Filed: 07/22/24 09:49> Stated complaint: sickle cell pain <Yolie Busch MD - Last Filed: 07/22/24 09:49> Time Seen by Provider: 07/21/24 13:30 <Yolie Busch MD - Last Filed: 07/22/24 09:49> Source: patient <Yolie Busch MD - Last Filed: 07/22/24 09:49> Mode of arrival: ambulatory <Yolie Busch MD - Last Filed: 07/22/24 09:49> Limitations: no limitations <Yolie Busch MD - Last Filed: 07/22/24 09:49> History of Present Illness HPI narrative: Patient presents with concern for sickle cell pain crisis that he states has been going on for the past 2-3 days. He states he hurts all over although particularly in his arms and legs. He denies any trauma. He denies any chest pain, difficulty breathing, or cough. His baseline regimen is 10 mg Oxy an 10 mg oxycodone. He was supposed to see his television cable installer Dr. Marks yesterday but he states he got his lab work drawn too late and they had to reschedule him for tomorrow. He states he has already notified Dr. Marks office that he had to come to the emergency department today. He states he normally receives 2 mg of Dilaudid with Benadryl for nausea. < Yolie Busch MD - Last Filed: 07/22/24 09:49> Related Data Home medications: Home Medications ?Medication ?Instructions ?Recorded ?Confirmed ?Last Taken ?Type folic acid 1 mg tablet 1 mg PO DAILY 02/16/19 07/21/24 12/14/23 History methadone 10 mg tablet 10 mg PO TID 08/22/20 07/21/24 07/21/24 07:00 History oxycodone-acetaminophen 10 mg-325 1 tablet PO BID PRN Pain, Moderate 08/22/20 07/21/24 07/20/24 22:00 History mg tablet ibuprofen 800 mg tablet 800 mg PO PRN 12/30/22 07/21/24 1 Day Ago History ~12/29/22 <Yolie Busch MD - Last Filed: 07/22/24 09:49> Allergies/adverse reactions: Allergies Allergy/AdvReac Type Severity Reaction Status Date / Time Fish Containing Products Allergy Mild Itching Verified 07/21/24 23:47 <Yolie Busch MD - Last Filed: 07/22/24 09:49> [facility] Past Medical History Medical History: Medical History 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 Noncompliance History of noncompliance with anticoagulation and hydroxyurea. Deep venous thrombosis Chronic anticoagulation Due to history of DVT and pulmonary embolism. Acute chest syndrome Sickle cell disease, type SC Pulmonary embolism Chronic narcotic use On methadone with oxycodone for chronic pain related to sickle cell disease. <Yolie Busch MD - Last Filed: 07/22/24 09:49> Surgical History Surgical History: Surgical History History of hand surgery Tendon surgery on right 5th finger. <Yolie Busch MD - Last Filed: 07/22/24 09:49> Family History Family History: Family History Grandparent Diabetes mellitus Acute myocardial infarction Sibling Asthma Sibling Asthma Mother Hypertension Sickle cell trait Son Sickle cell trait Daughter Sickle cell trait Grandparent No problems noted. Other Diabetes mellitus Father Sickle cell trait <Yolie Busch MD - Last Filed: 07/22/24 09:49> Social History Social History: Social History Social History: The patient lives in [place] with his family. He is on disability due to sickle cell disease and chronic pain. He is a lifelong nonsmoker and denies alcohol and illicit substance abuse. He uses marijuana to help with pain, states this happens 1-2x per year. He designates Jolly Serranoiam (mother) or Keyla Luther (friend) as his surrogate decision makers and he wishes to be a full code. Smoking status: Never smoker Second hand tobacco smoke exposure: No Additional smoking assessment comments: Smokes marijuana when pain meds unavailable. Alcohol intake: never Substance use: former Substance use type: marijuana Other substance usage details: For back when he doesn't have any pain meds available. Last use: 12/28/22 Do You Feel Safe in your Home?: Yes Lack of Transportation: No Lack of Food: Never True Current Housing: I Have Housing Concerned About Future Housing: No Difficulty Paying Gas/Electric Bills: No Difficulty Paying for Meds: No Currently Unemployed: No Education: High School Diploma/GED Difficulty w/ Childcare or Family Care: No Living arrangements: with family Occupation/Education: other Spiritual care concerns: No Agree to blood products: Yes <Yolie Busch MD - Last Filed: 07/22/24 09:49> Exam 2 Narrative: GENERAL: Well-appearing, well-nourished, in mild acute distress. HEAD: Normocephalic, atraumatic. EYES: Non injected, non icteric ENT: Nares clear, no rhinorrhea or epistaxis. NECK: Supple. CHEST: Speaking in full sentences. No respiratory distress. HEART: Regular rate and rhythm. ABDOMEN: Soft, nondistended. EXTREMITIES: Normal range of motion. SKIN: Warm, dry, no rash. NEURO: No focal deficits. Alert and oriented x3. PSYCH: Normal mood and affect. <Yolie Busch MD - Last Filed: 07/22/24 09:49> Course Course Emergency Course: 19:00 - This patient was signed out to me by previous ED physician, Dr. Busch pending re-evaluation for admission versus discharge. 20:42 - On re-evaluation after the patient's most recent dose of Dilaudid (1919) the patient states his pain is not controlled. During our conversation, I turned off the patient's oxygen and his O2 sats held at 96%. The patient was given an additional 1 mg dose of Dilaudid and his O2 sats began decreasing to 90%. His oxygen was restarted. I discussed the patient with hospitalist, Dr. Alston who accepts admission for observation. <Edgardo Fonseca MD - Last Filed: 07/21/24 20:45> Vital Signs Vital signs: Vital Signs Temperature 97.8 F 07/21/24 10:49 Pulse Rate 86 07/21/24 10:49 Respiratory Rate 16 07/21/24 10:49 Blood Pressure 128/73 07/21/24 10:49 Pulse Oximetry 96 07/21/24 10:49 Oxygen Delivery Room Air 07/21/24 10:49 Temperature 97.6 F 07/22/24 08:00 Pulse Rate 80 07/22/24 08:00 Respiratory Rate 16 07/22/24 08:00 Blood Pressure 104/54 L 07/22/24 08:00 Pulse Oximetry 100 07/22/24 08:00 Oxygen Delivery Nasal Cannula 07/22/24 04:05 Oxygen Flow Rate 2 07/22/24 04:05 <Yolie Busch MD - Last Filed: 07/22/24 09:49> Vital Signs Temperature 97.8 F 07/21/24 10:49 Pulse Rate 86 07/21/24 10:49 Respiratory Rate 16 07/21/24 10:49 Blood Pressure 128/73 07/21/24 10:49 Pulse Oximetry 96 07/21/24 10:49 Oxygen Delivery Room Air 07/21/24 10:49 Temperature 97.6 F 07/22/24 08:00 Pulse Rate 80 07/22/24 08:00 Respiratory Rate 16 07/22/24 08:00 Blood Pressure 104/54 L 07/22/24 08:00 Pulse Oximetry 100 07/22/24 08:00 Oxygen Delivery Nasal Cannula 07/22/24 04:05 Oxygen Flow Rate 2 07/22/24 04:05 <Edgardo Fonseca MD - Last Filed: 07/21/24 20:45> Medical Decision Making [facility] Narrative Medical decision making narrative: Patient presents with concern for sickle cell crisis. States he has been having pain all over for past 2-3 days but particularly in his legs and arms. Denies chest pain, cough, difficulty breathing In the emergency department they are afebrile with vital signs within normal limits. UDS positive for opiates and methadone which is his baseline regimen. Patient states his regimen for crisis pain is 2mg Dilaudid with Benadryl. Attempted to give patient 2mg Dilaudid but per nurse he desaturates to 86-88% on room air after only 1 mg. Placed on O2. He has a leukocytosis with a normocytic anemia. The anemia is stable from previous. Patient chronically has a leukocytosis and today's is higher than previous but not nearly to the same degree as at times preceding that. Patient trialed off O2 and maintaining saturation. When receives another dose of Dilaudid, same happens; placed back on O2. He was supposed to see his television cable installer Dr. aMrks yesterday but he states he got his lab work drawn too late and they had to reschedule him for tomorrow. He states he has already notified Dr. Marks office that he had to come to the emergency department today. Retic count indices similar to previous. Patient is noted to be hypoxic again on room air, this time while sleeping. Put on O2 again. He states this has happened previously and due to lung scarring. I presume this is multifactorial and due to his recent diagnosis PE (for which he states he is compliant on Xarelto), possible scarring, medication side effect, and possible undiagnosed sleep apnea/SHAKIRA/etc. since he desaturates while sleeping. He might benefit from a sleep study. Patient given another dose of medication and signed out to oncoming ED physician pending chest xray and reassessment to determine disposition. <Yolie Busch MD - Last Filed: 07/22/24 09:49> Vital Signs Vital Signs: Vital Signs Temperature 97.8 F 07/21/24 10:49 Pulse Rate 86 07/21/24 10:49 Respiratory Rate 16 07/21/24 10:49 Blood Pressure 128/73 07/21/24 10:49 Pulse Oximetry 96 07/21/24 10:49 Oxygen Delivery Room Air 07/21/24 10:49 Temperature 97.6 F 07/22/24 08:00 Pulse Rate 80 07/22/24 08:00 Respiratory Rate 16 07/22/24 08:00 Blood Pressure 104/54 L 07/22/24 08:00 Pulse Oximetry 100 07/22/24 08:00 Oxygen Delivery Nasal Cannula 07/22/24 04:05 Oxygen Flow Rate 2 07/22/24 04:05 <Yolie Busch MD - Last Filed: 07/22/24 09:49> Vital Signs Temperature 97.8 F 07/21/24 10:49 Pulse Rate 86 07/21/24 10:49 Respiratory Rate 16 07/21/24 10:49 Blood Pressure 128/73 07/21/24 10:49 Pulse Oximetry 96 07/21/24 10:49 Oxygen Delivery Room Air 07/21/24 10:49 Temperature 97.6 F 07/22/24 08:00 Pulse Rate 80 07/22/24 08:00 Respiratory Rate 16 07/22/24 08:00 Blood Pressure 104/54 L 07/22/24 08:00 Pulse Oximetry 100 07/22/24 08:00 Oxygen Delivery Nasal Cannula 07/22/24 04:05 Oxygen Flow Rate 2 07/22/24 04:05 <Edgardo Fonseca MD - Last Filed: 07/21/24 20:45> Lab Data Lab results reviewed: Yes I reviewed the patient's lab results. <Yolie Busch MD - Last Filed: 07/22/24 09:49> Result diagrams: 07/22/24 06:03 07/22/24 06:03 <Yolie Busch MD - Last Filed: 07/22/24 09:49> Labs: Lab Results 07/21/24 07/21/24 Range/Units 16:57 17:30 WBC 14.5 H (4.5-10.0) K/mm3 RBC 2.56 L (4.6-6.20) M/mm3 Hgb 8.3 L (14.0-18.0) g/dL Hct 24.3 L (42.0-52.0) % MCV 94.9 (80-100) fl MCH 32.4 (26-34) pg MCHC 34.2 (32-36) g/dl RDW 16.7 H (11.5-14.5) % Plt Count 284 (150-375) k/mm3 MPV 9.9 (7.4-10.4) fl Immature Gran % (Auto) 0.5 (0-0.5) % Neut % (Auto) 67.0 (45.5-73.1) % Lymph % (Auto) 21.8 (18.3-44.2) % [place] % (Auto) 8.3 (2.6-8.5) % Eos % (Auto) 2.1 (0-4.4) % Baso % (Auto) 0.3 (0.2-1.2) % Lymph # (Auto) 3.17 (0.9-3.2) K/mm3 [place] # (Auto) 1.2 H (0.1-0.6) K/mm3 Eos # (Auto) 0.3 (0-0.3) K/mm3 Baso # (Auto) 0.1 (0.0-0.1) K/mm3 Abs Immat Gran (auto) 0.07 H (0.00-0.031) K/mm3 Absolute Neuts (auto) 9.7 H (1.3-6.7) K/mm3 Absolute Nucleated RBC 0.060 H (0.0-0.012) K/mm3 Band Neutrophils % Not Reportable Nucleated RBC % 0.4 H (0.0-0.2) % Platelet Estimate Adequate (Adequate) % Immature Plt Fraction 3.4 (0.9-11.2) % Poikilocytosis 1+ Anisocytosis 1+ Sickle Cells 1+ Target Cells 1+ Ovalocytes 1+ Schistocytes None seen Absolute Retic 0.17 H (0.02-0.10) 10^6/uL Percent Retic 6.72 H (0.7-4.3) % Immature Retic Fraction 39.0 H (3.0-15.9) % Retic Hgb Content 33.5 (28.2-36.6) pg Sodium 142 (137-145) mmol/L Potassium 4.9 (3.4-5.0) mmol/L Chloride 108 H (98-107) mmol/L Carbon Dioxide 25 (22-30) mmol/L Anion Gap 9 (4-12) mmol/L BUN 8 L (9-20) mg/dL Creatinine 0.75 (0.7-1.3) mg/dL Estim Creat Clear Calc 133 ml/min Estimated GFR > 60 (59 - ) Glucose 86 (65-110) mg/dL Calcium 8.6 (8.4-10.2) mg/dL Total Bilirubin 1.4 H (0.2-1.3) mg/dL AST 31 (17-59) U/L ALT 19 (6-50) U/L Alkaline Phosphatase 83 (38-126) U/L Total Protein 8.0 (6.3-8.2) g/dL Albumin 4.4 (3.5-5.1) g/dL Urine Color Yellow (Yellow) Urine Appearance Clear (Clear) Urine pH 6.5 (5.0-9.0) Ur Specific [place] 1.010 (1.001-1.035) Urine Protein Negative (Negative) mg/dL Urine Glucose (UA) Negative (Negative) mg/dL Urine Ketones Negative (Negative) mg/dL Ur Blood (Man) Negative (Negative) Urine Nitrate Negative (Negative) Urine Bilirubin Negative (Negative) Urine Urobilinogen 1.0 (<2.0) mg/dL Leukocyte Esterase Rfl Negative (Negative) NANDO/UL Urine Opiates Screen Positive A (Negative) Urine Methadone Screen Positive A (Negative) Ur Barbiturates Screen Negative (Negative) Ur Phencyclidine Scrn Negative (Negative) Ur Amphetamine Screen Negative (Negative) U Benzodiazepines Scrn Negative (Negative) Urine Cocaine Screen Negative (Negative) U Cannabinoids Screen Negative (Negative) <Yolie Busch MD - Last Filed: 07/22/24 09:49> Lab Results 07/21/24 07/21/24 Range/Units 16:57 17:30 WBC 14.5 H (4.5-10.0) K/mm3 RBC 2.56 L (4.6-6.20) M/mm3 Hgb 8.3 L (14.0-18.0) g/dL Hct 24.3 L (42.0-52.0) % MCV 94.9 (80-100) fl MCH 32.4 (26-34) pg MCHC 34.2 (32-36) g/dl RDW 16.7 H (11.5-14.5) % Plt Count 284 (150-375) k/mm3 MPV 9.9 (7.4-10.4) fl Immature Gran % (Auto) 0.5 (0-0.5) % Neut % (Auto) 67.0 (45.5-73.1) % Lymph % (Auto) 21.8 (18.3-44.2) % [place] % (Auto) 8.3 (2.6-8.5) % Eos % (Auto) 2.1 (0-4.4) % Baso % (Auto) 0.3 (0.2-1.2) % Lymph # (Auto) 3.17 (0.9-3.2) K/mm3 [place] # (Auto) 1.2 H (0.1-0.6) K/mm3 Eos # (Auto) 0.3 (0-0.3) K/mm3 Baso # (Auto) 0.1 (0.0-0.1) K/mm3 Abs Immat Gran (auto) 0.07 H (0.00-0.031) K/mm3 Absolute Neuts (auto) 9.7 H (1.3-6.7) K/mm3 Absolute Nucleated RBC 0.060 H (0.0-0.012) K/mm3 Band Neutrophils % Not Reportable Nucleated RBC % 0.4 H (0.0-0.2) % Platelet Estimate Adequate (Adequate) % Immature Plt Fraction 3.4 (0.9-11.2) % Poikilocytosis 1+ Anisocytosis 1+ Sickle Cells 1+ Target Cells 1+ Ovalocytes 1+ Schistocytes None seen Absolute Retic 0.17 H (0.02-0.10) 10^6/uL Percent Retic 6.72 H (0.7-4.3) % Immature Retic Fraction 39.0 H (3.0-15.9) % Retic Hgb Content 33.5 (28.2-36.6) pg Sodium 142 (137-145) mmol/L Potassium 4.9 (3.4-5.0) mmol/L Chloride 108 H (98-107) mmol/L Carbon Dioxide 25 (22-30) mmol/L Anion Gap 9 (4-12) mmol/L BUN 8 L (9-20) mg/dL Creatinine 0.75 (0.7-1.3) mg/dL Estim Creat Clear Calc 133 ml/min Estimated GFR > 60 (59 - ) Glucose 86 (65-110) mg/dL Calcium 8.6 (8.4-10.2) mg/dL Total Bilirubin 1.4 H (0.2-1.3) mg/dL AST 31 (17-59) U/L ALT 19 (6-50) U/L Alkaline Phosphatase 83 (38-126) U/L Total Protein 8.0 (6.3-8.2) g/dL Albumin 4.4 (3.5-5.1) g/dL Urine Color Yellow (Yellow) Urine Appearance Clear (Clear) Urine pH 6.5 (5.0-9.0) Ur Specific [place] 1.010 (1.001-1.035) Urine Protein Negative (Negative) mg/dL Urine Glucose (UA) Negative (Negative) mg/dL Urine Ketones Negative (Negative) mg/dL Ur Blood (Man) Negative (Negative) Urine Nitrate Negative (Negative) Urine Bilirubin Negative (Negative) Urine Urobilinogen 1.0 (<2.0) mg/dL Leukocyte Esterase Rfl Negative (Negative) NANDO/UL Urine Opiates Screen Positive A (Negative) Urine Methadone Screen Positive A (Negative) Ur Barbiturates Screen Negative (Negative) Ur Phencyclidine Scrn Negative (Negative) Ur Amphetamine Screen Negative (Negative) U Benzodiazepines Scrn Negative (Negative) Urine Cocaine Screen Negative (Negative) U Cannabinoids Screen Negative (Negative) <Edgardo Fonseca MD - Last Filed: 07/21/24 20:45> Discharge Plan Discharge Clinical Impression: Normocytic anemia, Leukocytosis, Sickle-cell disease with pain <Yolie Busch MD - Last Filed: 07/22/24 09:49> Patient Disposition: Still a Patient <Yolie Busch MD - Last Filed: 07/22/24 09:49> Condition: Stable <Yolie Busch MD - Last Filed: 07/22/24 09:49> Time of Disposition: 20:44 <Yolie Busch MD - Last Filed: 07/22/24 09:49> 20:44 <Edgardo Fonseca MD - Last Filed: 07/21/24 20:45>
[2024-07-21] MEDS: ONDANSETRON INJ 4 MG/2 ML VIAL IV PUSH (15:21)
[2024-07-21] MEDS: SODIUM CHLORIDE 0.9% IV 1,000 ML 999 ML IV CONT (15:21)
[2024-07-21] MEDS: diphenhydrAMINE HCl INJ 50 MG/ML VIAL 25 MG IV PUSH (15:22)
[2024-07-21] MEDS: HYDROmorphone HCL INJ (*CRX) 1 MG/ML SYR 2 MG IV PUSH (15:24)
--- NOTE | 2024-07-21 15:37 | PC.NURSE ---
pt only given 1mg of Dilaudid due to pt O2 dropping to 80% on room air. pt given 2LNC and O2 now at 97%
--- OUTSIDE RECORDS SUMMARY | 2024-07-21 15:44 | XMS_ITS | Clinical Summary ---
Author Organization [facility] Address [address] [address] Care Team Providers Care Equipment Service Associate Name Role Phone Unavailable Primary Care Provider [...] Department Care Team Description 07/13/2024 Orders Only [facility] Oncology and Hematology - [place] [address] [place] [address] Jone Marks MD Other acute pulmonary embolism without acute cor pulmonale (CMS/HCC) 07/08/2024 Refill [facility] Hematology - [place] [address] [place] [address] Jone Marks MD 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) 06/15/2024 Orders Only [facility] Oncology and Hematology - [place] [address] [place] [address] Jone Marks MD Other acute pulmonary embolism without acute cor pulmonale (CMS/HCC) 06/12/2024 Refill [facility] Oncology and Hematology - [place] [address] [place] [address] Jone Marks MD 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) 06/09/2024 External Device Data STL ABSTRACTION Provider, Abstract 05/19/2024 External Device Data STL ABSTRACTION Provider, Abstract 05/18/2024 Orders Only [facility] Oncology and Hematology [facility] [address] [place] [address] Jone Marks MD Other acute pulmonary embolism without acute cor pulmonale (CMS/HCC) 05/07/2024 Abstract [facility] Oncology and Hematology [facility] [address] [place] [address] Jone Marks MD 05/07/2024 Abstract [facility] Oncology and Hematology [facility] [address] [place] [address] Jone Marks MD 05/06/2024 External Device Data STL ABSTRACTION Provider, Abstract 05/06/2024 External Device Data STL ABSTRACTION Provider, Abstract 05/05/2024 Refill [facility] Oncology and Hematology [facility] [address] [place] [address] Jone Marks MD 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 ([facility]) from Last 3 Months Family History [...] cm (5' 10 ) 03/29/2021 12:09 PM STOCK CONTROLLER Body Mass Index 32.14 03/29/2021 12:09 PM STOCK CONTROLLER Plan of Treatment Upcoming Encounters Date Type Department Care Team (Late st Contact Info) Description 07/22/2024 1:15 PM CDT Office Visit [facility] Oncology and Hematology - [place] [address] [facility] [address] [facility] [address] [place] [address] Jone Marks MD [address] [place] [address] Health Maintenance Due Date Last [...]
--- OUTSIDE RECORDS SUMMARY | 2024-07-21 15:44 | XMS_ITS | Clinical Summary ---
Author Organization [facility] Address [address] [place] [address] Care Team Providers Care Pull Socket Assembler Name Role Phone Unavailable Primary Care [...] Comments Blood Pressure 120/72 04/14/2024 10:45 AM PICK PACK WORKER Pulse 80 04/14/2024 10:45 AM PICK PACK WORKER Temperature 36.7 C (98.1 F) 04/14/2024 10:45 AM PICK PACK WORKER Respiratory Rate - - Oxygen Saturation 97% 04/14/2024 10:45 AM PICK PACK WORKER Inhaled Oxygen Concentration - - Weight 104 kg (229 lb) 04/14/2024 10:45 AM PICK PACK WORKER Height 177.8 cm (5' 10 ) 04/14/2024 10:45 AM PICK PACK WORKER Body Mass Index 32.86 04/14/2024 10:45 AM PICK PACK WORKER Plan of Treatment Health Maintenance Due Date Last Done Comments Pneumococcal Vaccine: Pediat rics (0 to 5 Years) and At-Risk Patients (6 to 64 Years) (1 of 2 - PCV) 1989 Hepatitis B Vaccine (1 of 3 - 19+ 3-dose series) 2002 Influenza Vaccine (Season Ended) 2024 02/24/2020, 01/01/2019, 01/16/2018, Additional history exists Insurance MEDICARE YEIMY QUEZADA [id number]
--- OUTSIDE RECORDS SUMMARY | 2024-07-21 15:44 | XMS_ITS | Clinical Summary ---
Author Organization [facility] Address [address] [place] [address] Phone Care Team Providers Care Chemic Mangler Name Role Phone Provider, None Primary Care [...] measures to stabilize the patient. Care Teams Chemic Mangler Relationship Specialty Start Date End Date Provider, None [place] PCP - General 11/28/18
--- OUTSIDE RECORDS SUMMARY | 2024-07-21 15:44 | XMS_ITS | Encounter Summary ---
Author Organization [facility] [employer] [facility] Address [address] [place] [address] Care Team Providers Care Sales Assistant Institutional Sales Name Role Phone Unavailable Primary Care Provider Unavailabl e Reason for Visit * Reason Comments Med Refill Encounter Details Date Type Department Care Team (Late Contact Info) Description 04/13/2022 Refill [facility] Oncology [facility] Hematology [facility] [address] [place] [address] Jone Marks MD [address] [place] [address] 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
--- OUTSIDE RECORDS SUMMARY | 2024-07-21 15:44 | XMS_ITS | Clinical Summary ---
Author Organization [facility] Address [address] [place] [address] Care Team Providers Care Marketing Project Lead Name Role Phone Jone Marks MD Primary Care Provider [phone] Allergies Active Allergy Reactions Criticality Noted Date [...] Department Care Team Description 04/27/2024 11:00 AM ELECTROSTATIC PAINTER - 04/27/2024 11:59 PM ELECTROSTATIC PAINTER Hospital Encounter [facility] [address] [place] [id number] Chronic kidney disease, stage 2 (mild); Essential [...] on file Legal Sex Male 12:32 AM ELECTROSTATIC PAINTER Gender Identity Not on file Sexual Orientation [...] Read Routine (OP Routine) 04/27/2024 11:37 AM ELECTROSTATIC PAINTER Chronic kidney disease, stage 2 (mild) Essential (primary) hypertension from Last 3 Months Results * US Kidney Complete (04/27/2024 11:37 AM ELECTROSTATIC PAINTER) Anatomical Region Laterality Modality Kidney N/A Ultrasound 04/28/2024 9:47 AM ELECTROSTATIC PAINTER Narrative 04/28/2024 9:51 AM ELECTROSTATIC PAINTER EXAM DESCRIPTION: US KIDNEY COMPLETE REASON FOR [...] Raphael Suárez M.D. LEONORA: LEONORA Report ID: [id number] Reading Location: [place] [address] Procedure Note Laurent Suárez MD - 04/28/2024 [...] Raphael Suárez M.D. LEONORA: LEONORA Report ID: [id number] Reading Location: [id number] Carlos Canseco MD IM US PROCEDURES Final Resul t from Last 3 Months Insurance [facility] Member Subscriber Plan / Payer (Ef fective 2019-Present) Name:Quan Downing Relation to Subscriber:Self Name:Quan Downing Payer ID:[id number] (NAIC) Group ID:Not on file Type:MEDICAID RISK OTHER Address: [address] [id number] MEDICARE [facility] Address: [address] [address] [facility] IDTN MEDICARE Advance Directives For more information, please contact: [phone] * Full Code (Latest Code Status on [...] [facility] Care Agent Care Teams Marketing Project Lead Relationship Specialty Start Date End Date Jone Marks MD [address] [place] [address] [facility] - General 01/26/19
--- OUTSIDE RECORDS SUMMARY | 2024-07-21 15:44 | XMS_ITS | Encounter Summary ---
Author Organization [facility] [employer] [facility] Address [address] [place] [address] Care Team Providers Care Education Sales Consultant Name Role Phone Unavailable Primary Care Provider Unavailabl e Encounter Details Date Type Department Care Team (Late st Contact Info) Description 08/21/2021 History & Physical [facility] Oncology and Hematology [facility] [address] [place] [address] Vonnie Portillo Social History Tobacco [...] Description 07/22/2024 1:15 PM CDT Office Visit [facility] Oncology and Hematology [facility] [address] [place] [address] Jone Marks MD [address] [facility] [address] [place] [address] documented as of this encounter Visit Diagnoses Not on filedocumented in this encounter
--- OUTSIDE RECORDS SUMMARY | 2024-07-21 15:44 | XMS_ITS | Clinical Summary ---
Author Organization [facility] [employer] Address [address] [place] [address] Care Team Providers Care Supervisor Esters And Emulsifiers Name Role Phone Unavailable Primary Care Provider Unavailabl e Source Comments [facility],non-owned Affiliates and Associated Physician Practices is amultiple site organization consisting of ambulatory clinics and hospital sitesin [place], [place], [place] and [place]. This disclosure is being madepursuant to the Care Everywhere program and may not contain all information available regarding this patient. Last updated 18.[facility] Allergies Active Allergy Reactions Criticality Noted Date [...] care, and heating? Not very hard 12/15/2023 [facility] [place] [facility] Occupat ional Health - Occupational Stress [...] place to sleep or slept in a halfway (including now)? No 12/15/2023 Sex and Gender [...] 7 - 26 mg/dL 12/26/2023 3:11 AM [facility] Creatinine 1.14 0.71 - 1.16 mg/dL 12/26/2023 3:11 AM [facility] Sodium 138 136 - 145 mmol/L 12/26/2023 3:11 AM [facility] Potassium 3.8 3.5 - 4.5 mmol/L 12/26/2023 3:11 AM [facility] Chloride 106 98 - 107 mmol/L 12/26/2023 3:11 AM [facility] CO2 24 22 - 29 mmol/L 12/26/2023 3:11 AM [facility] Glucose 107 70 - 115 mg/dL 12/26/2023 3:11 AM [facility] Calcium 9.2 8.4 - 10.2 mg/dL 12/26/2023 3:11 AM [facility] Protein Total 8.3 6.0 - 8.3 g/dL 12/26/2023 3:11 AM [facility] Albumin 2.7(L) 3.4 - 5.0 g/dL 12/26/2023 3:11 AM [facility] Bilirubin Total 0.6 0.2 - 1.2 mg/dL 12/26/2023 3:11 AM [facility] Alkaline Phosphatase 79 40 - 150 U/L 12/26/2023 3:11 AM [facility] ALT 52 5 - 55 U/L 12/26/2023 3:11 AM [facility] AST 24 5 - 34 U/L 12/26/2023 3:11 AM [facility] Anion Gap 8 6 - 16 12/26/2023 3:11 AM [facility] BUN/Creatinine Ratio 7 7 - 23 12/26/2023 3:11 AM [facility] Osmolality Calculated 285 275 - 295 mOsm/kg 12/26/2023 3:11 AM [facility] Albumin/Globulin Ratio 0.5(L) 1.1 - 2.3 12/26/2023 3:11 AM [facility] eGFR by CKD-EPI 83(L) >=90 mL/min/1.7 3 m2 12/26/2023 3:11 AM [facility] Blood BLOOD SPECIMEN / Unknown Lab Venipuncture / Unknown 12/26/2023 1:54 AM CDT 12/26/2023 2:57 AM CDT Natalia Marks MD LAB - CHEMISTRY NAZARIO GRANT [facility] Organization Address City/State/ZIP Co de Phone Number [facility] [address] [place] [address], [facility] [phone] * HEPATITIS C AB SCREEN RFLX NAAT QUANT (12/19/2023 5:04 AM CDT) Hepatitis C Antibody Non-react daniel Non-reac tive 12/19/2023 6:17 AM [facility] Comment:Hepatitis C Antibody screen indicates no serologic [...] - CHEMISTRY NAZARIO GRANT Performing Organization Address City/[facility]/ZIP Co de Phone Number [address] [address], [facility] [phone] * HIV-1 HIV-2 ANTIBODY + HIV P24 AG PANEL (12/19/2023 5:04 AM CDT) Pathologist [facility] HIV Antigen/Antibod y 1 & 2 Non-reacti ve Non-react daniel 12/19/2023 6:17 AM T [facility] Comment:No Laboratory eviden ce of HIV infection. Blood BLOOD SPECIMEN / Unknown Venipuncture / Unknown 12/19/2023 5:04 AM CDT 12/19/2023 5:08 AM CDT German Damon MD LAB - CHEMISTRY NAZARIO GRANT Performing Organization Address [facility] Co de Phone Number [address] [address], [facility] [phone] * (ABNORMAL) LIPID PROFILE (12/18/2023 3:46 AM CDT) Cholesterol Total 100 <200 mg/dL 12/18/2023 4:46 AM T [facility] HDL 7(L) >40 mg/dL 12/18/2023 4:46 AM T [facility] Comment: ATP III Classification of HDL Cholesterol: <40 mg/dL: Considered a major risk factor. >60 mg/dL: Considered a negative risk factor. LDL Calculated 54 <100 mg/dL 12/18/2023 4:46 AM T [facility] Comment: ATP III Classification of LDL Cholesterol: <100 mg/dL: Optimal 100 - 129 mg/dL: Near Optimal/Above Optimal 130 - 159 mg/dL: Borderline High 160 - 189 mg/dL: High >190 mg/dL: Very High Triglycerides 195(H) <150 mg/dL 12/18/2023 4:46 AM CDT [facility] Comment: ATP III Classification of Triglycerides: <150 mg/dL: Normal 150 - 199 mg/dL: Borderline High 200 - 400 mg/dL: High >500 mg/dL: Very High Blood BLOOD SPECIMEN / Unknown Venipuncture / Unknown 12/18/2023 3:46 AM CDT 12/18/2023 4:14 AM CDT German Damon MD LAB - CHEMISTRY NAZARIO Pascual Organization Address City/State/ZIP Co de Phone Number [facility] [address] [place] [address], [facility] [phone] from Last 3 Months or Most Recently Relevant to Health Maintenance Advance Directives * Full Code (Latest Code Status on File) Date Activated Date Inactivated Comments 12/15/2023 10:14 PM 12/29/2023 3:08 PM
--- OUTSIDE RECORDS SUMMARY | 2024-07-21 15:44 | XMS_ITS | Referral Summary ---
Author Organization [facility] Address [address] [place] [address] Care Team Providers Care Suction Worker Name Role Phone Jone Marks MD Primary Care Provider [phone] Encounters Date Type Department Care Team Description 04/27/2024 11:00 AM CONFERENCE CENTER COORDINATOR - 04/27/2024 11:59 PM CONFERENCE CENTER COORDINATOR Hospital Encounter [facility] [address] [place] [address] Chronic kidney disease, stage 2 (mild); Essential [...] on file Legal Sex Male 12:32 AM CONFERENCE CENTER COORDINATOR Gender Identity Not on file Sexual Orientation [...] Read Routine (OP Routine) 04/27/2024 11:37 AM CONFERENCE CENTER COORDINATOR Chronic kidney disease, stage 2 (mild) Essential (primary) hypertension from Last 3 Months Results * US Kidney Complete (04/27/2024 11:37 AM CONFERENCE CENTER COORDINATOR) Anatomical Region Laterality Modality Kidney N/A Ultrasound 04/28/2024 9:47 AM CONFERENCE CENTER COORDINATOR Narrative 04/28/2024 9:51 AM CONFERENCE CENTER COORDINATOR EXAM DESCRIPTION: US KIDNEY COMPLETE REASON FOR [...] Raphael Suárez M.D. LEONORA: LEONORA Report ID: [id number] Reading Location: [id number] Procedure Note Laurent Suárez MD - 04/28/2024 [...] Raphael Suárez M.D. LEONORA: LEONORA Report ID: [id number] Reading Location: [place] [address] us Carlos Canseco MD IMG US PROCEDURES Final Resul t from Last 3 Months Insurance [facility] MEDICARE [facility] MEDICARE [facility] Address: [address] [address] [place] [address] Advance Directives For more information, please contact: [phone] * Full Code (Latest Code Status on [...] Rios Mother [facility] Care Agent Care Teams Suction Worker Relationship Specialty Start Date End Date Jone Marks MD [address] [phone] PCP - General 01/26/19
[2024-07-21 17:06] LABS: Add Urine Microscopic? NO; Appearance Urine Clear (Clear); Bilirubin Urine Negative (Negative); Blood Urine Negative (Negative); Color Urine Yellow (Yellow); Glucose Urine UA Negative (Negative); Ketones Urine Negative (Negative); Leukocyte Esterase Ur Negative LEU/UL (Negative); Nitrate Urine Negative (Negative); Protein Urine Negative (Negative); pH Urine 6.5 (5.0-9.0)
[2024-07-21 17:23] LABS: Amphetamine Screen Urine Negative (Negative); Barbiturate Screen Urine Negative (Negative); Benzodiazepines Screen Urine Negative (Negative); Cannabinoid Screen Urine Negative (Negative); Cocaine Screen Urine Negative (Negative); Methadone Screen Urine Positive (Negative); Opiate Screen Urine Positive (Negative); Phencyclidine Screen Urine Negative (Negative)
[2024-07-21 17:39] LABS: Basophils Absolute Auto 0.1 K/mm3 (0.0-0.1); Basophils Percent Auto 0.3 % (0.2-1.2); Eosinophils Absolute Auto 0.3 K/mm3 (0-0.3); Eosinophils Percent Auto 2.1 % (0-4.4); Hematocrit 24.3 % (42.0-52.0); Hemoglobin 8.3 g/dL (14.0-18.0); Immature Granulocyte Absolute 0.07 K/mm3 (0.00-0.031); Immature Granulocyte Percent A 0.5 % (0-0.5); Immature Platelet Fraction Pct 3.4 % (0.9-11.2); Lymphocytes Absolute Auto 3.17 K/mm3 (0.9-3.2); Lymphocytes Percent Auto 21.8 % (18.3-44.2); Mean Corpuscular HGB Conc 34.2 g/dl (32-36); Mean Corpuscular Hemoglobin 32.4 pg (26-34); Mean Corpuscular Volume 94.9 fl (80-100); Mean Platelet Volume 9.9 fl (7.4-10.4); Monocytes Absolute Auto 1.2 K/mm3 (0.1-0.6); Monocytes Percent Auto 8.3 % (2.6-8.5); Neutrophils Absolute Auto 9.7 K/mm3 (1.3-6.7); Nucleated Red Blood Cells Perc 0.4 % (0.0-0.2); Platelet Count Result 284 k/mm3 (150-375); Red Blood Count 2.56 M/mm3 (4.6-6.20); Red Cell Distribution Width 16.7 % (11.5-14.5); Reticulocyte Hemoglobin Conten 33.5 pg (28.2-36.6); Reticulocyte Percent 6.72 % (0.7-4.3); Reticulocytes Absolute 0.17 10^6/uL (0.02-0.10); White Blood Count 14.5 K/mm3 (4.5-10.0)
[2024-07-21] MEDS: KETOROLAC 15 MG/ML VIAL (*BKC) IV PUSH (17:50)
[2024-07-21] MEDS: HYDROmorphone HCL INJ (*CRX) 1 MG/ML SYR IV PUSH ×3 (17:51→20:36)
[2024-07-21 17:54] LABS: Platelet Estimate Adequate (Adequate); Poikilocytosis 1+
[2024-07-21 17:55] LABS: Ovalocytes 1+; Sickle Cells 1+; Target Cells 1+
[2024-07-21 17:56] LABS: Alanine Aminotransferase 19 U/L (6-50); Albumin Level 4.4 g/dL (3.5-5.1); Alkaline Phosphatase 83 U/L (38-126); Anion Gap 9 mmol/L (4-12); Aspartate Amino Transferase 31 U/L (17-59); Bilirubin,Total 1.4 mg/dL (0.2-1.3); Blood Urea Nitrogen 8 mg/dL (9-20); Calcium 8.6 mg/dL (8.4-10.2); Carbon Dioxide 25 mmol/L (22-30); Chloride 108 mmol/L (98-107); Estimated CRCL calculation 133 ml/min; Estimated Glomerular Filt Rate > 60; Glucose 86 mg/dL (65-110); Potassium 4.9 mmol/L (3.4-5.0); Sodium 142 mmol/L (137-145)
[2024-07-21 17:57] LABS: Anisocytosis 1+; Schistocytes None Seen
--- NOTE | 2024-07-21 22:40 | ADMGEN ---
This patient, Quan Downing, was admitted to [address] [place] [address] Room 322-02 at approx 2200. Patient/family oriented to hospital policies and general routines including ID bracelet, bed and alarms, visiting hours, pain management, procedures, bathroom and other care routines, personal items, smoking policy, room service/diet, and visiting hours. Information on how to activate the Rapid Response Team has been discussed. Patient/Family are encouraged to report perceived risks to care and to ask questions if they do not understand what they are told or what they should do.
--- NOTE | 2024-07-21 23:37 | P.HP_ITS ---
H&P: HPI History of Present Illness Date/Time: 07/21/24 23:37 Chief Complaint: 1. Myalgia. Generalized Narrative: Quan Downing is a 39-year-old male with medical history significant for sickle cell disease, opioid dependence on pulmonary embolism He over the last week has been experiencing symptoms of continuous generalized myalgias; denies localized pain to back or hips; we discussed based on sharp; rated at 7-9 intensity; with no known modifying factors it was sedated with the restriction of his ADLs. He denies associated fevers, cough, chest pain, hemoptysis, wheezing, bipedal edema. At baseline he is on his pain regimen of methadone, ibuprofen and oxycodone- acetaminophen, which he claims has failed to ameliorate symptoms Currently unemployed, he does smoke tobacco, he does not drink alcohol; he consumes marijuana intermittently Work-up findings Vital signs are unremarkable The bedside he is in vague discomfort WBC 14.5; HGB 8.3; MCV 94; PLT 284 T bilirubin 1.4; AST 31; ALT 19; ALP 83 UA: Unremarkable UDS: Opiate positive; methadone positive CXR:The cardiomediastinal silhouette is unremarkable. Interstitial thickening within the bilateral lung bases, left greater than right. Traction bronchiectasis is also noted. The remainder of the lungs are clear. Quan Downing will be admitted evaluated and managed for myalgia comparable sickle cell crisis Review of Systems Review of Systems: All systems reviewed & are unremarkable except as noted in HPI and below PMFSH Past Medical History Medical History Chronic pain syndrome Secondary to sickle cell disease. Noncompliance History of noncompliance with anticoagulation and hydroxyurea. Deep venous thrombosis Chronic anticoagulation Due to history of DVT and pulmonary embolism. Acute chest syndrome Sickle cell disease, type SC Pulmonary embolism Chronic narcotic use On methadone with oxycodone for chronic pain related to sickle cell disease. Surgical History Surgical History History of hand surgery Tendon surgery on right 5th finger. Family History Family History Grandparent Diabetes mellitus Acute myocardial infarction Sibling Asthma Sibling Asthma Mother Hypertension Sickle cell trait Son Sickle cell trait Daughter Sickle cell trait Grandparent No problems noted. Other Diabetes mellitus Father Sickle cell trait Social History Social History Social History: The patient lives in [place] with his family. He is on disability due to sickle cell disease and chronic pain. He is a lifelong nonsmoker and denies alcohol and illicit substance abuse. He uses marijuana to help with pain, states this happens 1-2x per year. He designates Jolly Zuniga (mother) or Keyla Luther (friend) as his surrogate decision makers and he wishes to be a full code. Smoking status: Never smoker Second hand tobacco smoke exposure: No Additional smoking assessment comments: Smokes marijuana when pain meds unavailable. Alcohol intake: never Substance use: former Substance use type: marijuana Other substance usage details: For back when he doesn't have any pain meds available. Last use: 12/28/22 Do You Feel Safe in your Home?: Yes Lack of Transportation: No Lack of Food: Never True Current Housing: I Have Housing Concerned About Future Housing: No Difficulty Paying Gas/Electric Bills: No Difficulty Paying for Meds: No Currently Unemployed: No Education: High School Diploma/GED Difficulty w/ Childcare or Family Care: No Living arrangements: with family Occupation/Education: other Spiritual care concerns: No Agree to blood products: Yes Meds Home Medications and Allergies Home Medications ?Medication ?Instructions ?Recorded ?Confirmed ?Type folic acid 1 mg tablet 1 mg PO DAILY 02/16/19 07/21/24 History methadone 10 mg tablet 10 mg PO TID 08/22/20 07/21/24 History oxycodone-acetaminophen 10 mg-325 1 tablet PO BID PRN Pain, Moderate 08/22/20 07/21/24 History mg tablet hydroxyurea 500 mg capsule 500 mg PO QAM #30 caps 11/23/21 07/21/24 Rx ibuprofen 800 mg tablet 800 mg PO PRN 12/30/22 07/21/24 History rivaroxaban 20 mg tablet (Xarelto) 20 mg PO DAILY@1700 #30 tabs 06/08/24 07/21/24 Rx Allergies Allergy/AdvReac Type Severity Reaction Status Date / Time Fish Containing Products Allergy Mild Itching Verified 07/21/24 23:47 Vital Signs Vital Signs - 24 hr 07/21/24 10:49 07/21/24 15:28 07/21/24 15:38 Temperature 97.8 F Pulse Rate 86 84 Respiratory Rate 16 20 Blood Pressure 128/73 127/83 Pulse Oximetry 96 90 97 Oxygen Delivery Room Air Nasal Cannula Oxygen Flow Rate 2 07/21/24 19:20 07/21/24 20:26 07/21/24 20:34 Temperature Pulse Rate 72 66 Respiratory Rate 18 18 Blood Pressure 122/71 118/75 Pulse Oximetry 99 100 95 Oxygen Delivery Room Air Oxygen Flow Rate 07/21/24 20:40 07/21/24 20:43 07/21/24 21:44 Temperature Pulse Rate 105 H Respiratory Rate 18 Blood Pressure 124/80 Pulse Oximetry 89 L 96 98 Oxygen Delivery Room Air Nasal Cannula Oxygen Flow Rate 2 07/21/24 22:16 07/21/24 22:46 Temperature 97.6 F Pulse Rate 78 Respiratory Rate 18 Blood Pressure 114/69 Pulse Oximetry 93 97 Oxygen Delivery Room Air Oxygen Flow Rate Exam Const: General: in distress HENMT: Ears: TM's normal bilaterally Face/Nose/Sinus: Normal nares present Eyes: General: appearance normal, both eyes and all related structures Sclera: sclerae normal Pupils: Equal, round and reactive pupils present Neck: Neck: supple Resp: Effort & Inspection: normal respiratory effort Auscultation: clear to auscultation bilaterally Cardio: Rate: regular rate Rhythm: regular rhythm GI: GI Palp: Yes Soft to palpation Auscultation: normal bowel sounds Skin: General skin exam: normal color Wounds: no wounds Neuro: General: gait normal Motor exam (neuro): 5/5 motor strength present throughout and Normal motor muscle tone present throughout Extrem: General: normal to inspection Psych: Mental Status: mental status grossly normal Affect: Anxious affect present H&P: Results Labs Labs: Short CBC 07/21/24 Range/Units 17:30 WBC 14.5 H (4.5-10.0) K/mm3 Hgb 8.3 L (14.0-18.0) g/dL Hct 24.3 L (42.0-52.0) % Plt Count 284 (150-375) k/mm3 BMP 07/21/24 17:30 Sodium 142 Potassium 4.9 Chloride 108 H Carbon Dioxide 25 BUN 8 L Creatinine 0.75 Glucose 86 Calcium 8.6 Liver Function 07/21/24 Range/Units 17:30 Total Bilirubin 1.4 H (0.2-1.3) mg/dL AST 31 (17-59) U/L ALT 19 (6-50) U/L Alkaline Phosphatase 83 (38-126) U/L Albumin 4.4 (3.5-5.1) g/dL Urine 07/21/24 Range/Units 16:57 Urine Color Yellow (Yellow) Urine Appearance Clear (Clear) Urine pH 6.5 (5.0-9.0) Ur Specific [place] 1.010 (1.001-1.035) Urine Protein Negative (Negative) mg/dL Urine Glucose (UA) Negative (Negative) mg/dL Assessment and Plan Assessment and plan (1) Hemoglobin SC with crisis: Code(s): D57.219 - Sickle-cell/Hb-C disease with crisis, unspecified Status: Acute (2) Acute hypoxic respiratory failure: Code(s): J96.01 - Acute respiratory failure with hypoxia Status: Acute (3) Chronic narcotic use: Code(s): F11.90 - Opioid use, unspecified, uncomplicated Status: Chronic Plan Acute and principal conditions 1. Generalized myalgia; Probable SCD crises 2. Opioid dependence Rx A. Dilaudid, Toradol, Ativan B. IVFs; Chronic and stable conditions 1. Pulmonary embolism. On Rivaroxaban 2. Opioid dependence. 3. SCDs. on FA, Hydroxyurea Miscellaneous care 1. Code status. Full 2. Nutrition. Regular diet 3. VTE prophylaxis. SCDs; Rivaroxaban Hospitalist [facility] Advance Care Plan I have confirmed that the patient's Advanced Care Plan is present, code status is documented, or surrogate decision maker is listed in patient medical record.: Yes Medication Reconciliation I have utilized all available resources to obtain, update and review the patients current medications (includes all prescriptions, OTC, herbals, cannabis, and nutritional supplements).: Yes The patient is not eligible for med reconciliation; the patient is in a emergent medical situation where delaying treatment would jeopardize the patients health.: Yes
[2024-07-22] VITALS (9 sets, daily range): BP systolic 93–112; BP diastolic 48–66; PULSE 70–80; RESP 16–18; TEMP 36.4–37; O2SAT 89–100
[2024-07-22] MEDS: SODIUM CHLORIDE 0.9% IV 1,000 ML 100 ML IV CONT (00:19)
[2024-07-22] MEDS: KETOROLAC 15 MG/ML VIAL (*BKC) IV PUSH (00:19)
[2024-07-22] MEDS: diphenhydrAMINE HCl CAP 25 MG CAPSULE 50 MG PO ×3 (03:43→21:03)
[2024-07-22] MEDS: HYDROmorphone HCL INJ (*CRX) 1 MG/ML SYR 0.5 MG IV PUSH (03:45)
[2024-07-22 06:13] LABS: Basophils Percent Auto 0.3 % (0.2-1.2); Eosinophils Absolute Auto 0.4 K/mm3 (0-0.3); Eosinophils Percent Auto 3.5 % (0-4.4); Hematocrit 21.5 % (42.0-52.0); Hemoglobin 7.5 g/dL (14.0-18.0); Immature Granulocyte Absolute 0.03 K/mm3 (0.00-0.031); Immature Granulocyte Percent A 0.3 % (0-0.5); Lymphocytes Absolute Auto 2.88 K/mm3 (0.9-3.2); Lymphocytes Percent Auto 28.4 % (18.3-44.2); Mean Corpuscular HGB Conc 34.9 g/dl (32-36); Mean Corpuscular Volume 94.7 fl (80-100); Mean Platelet Volume 9.9 fl (7.4-10.4); Monocytes Percent Auto 10.3 % (2.6-8.5); Neutrophils Absolute Auto 5.8 K/mm3 (1.3-6.7); Neutrophils Percent Auto 57.2 % (45.5-73.1); Nucleated Red Blood Cells Perc 0.3 % (0.0-0.2); Platelet Count Result 268 k/mm3 (150-375); Red Blood Count 2.27 M/mm3 (4.6-6.20); White Blood Count 10.1 K/mm3 (4.5-10.0)
[2024-07-22 06:23] LABS: Alanine Aminotransferase 16 U/L (6-50); Albumin Level 3.7 g/dL (3.5-5.1); Alkaline Phosphatase 77 U/L (38-126); Anion Gap 6 mmol/L (4-12); Aspartate Amino Transferase 26 U/L (17-59); Bilirubin,Total 1.2 mg/dL (0.2-1.3); Blood Urea Nitrogen 8 mg/dL (9-20); Calcium 8.1 mg/dL (8.4-10.2); Carbon Dioxide 28 mmol/L (22-30); Chloride 108 mmol/L (98-107); Estimated CRCL calculation 125 ml/min; Estimated Glomerular Filt Rate > 60; Glucose 91 mg/dL (65-110); Potassium 4.4 mmol/L (3.4-5.0); Sodium 142 mmol/L (137-145)
[2024-07-22] MEDS: HYDROXYUREA (*CHEMO) 500 MG CAPSULE PO (08:41)
[2024-07-22] MEDS: FOLIC ACID 1 MG TABLET PO (08:41)
[2024-07-22] MEDS: KETOROLAC 30 MG/ML VIAL (*BKC) IV PUSH ×2 (09:34→16:49)
[2024-07-22] MEDS: HYDROmorphone HCL INJ (*CRX) 1 MG/ML SYR IV PUSH (09:35)
[2024-07-22] MEDS: SODIUM CHLORIDE 0.9% IV 1,000 ML 150 ML IV CONT (09:37)
[2024-07-22] MEDS: HYDROmorphone HCL INJ (*CRX) 1 MG/ML SYR 3 MG IV PUSH ×3 (14:44→20:58)
--- NOTE | 2024-07-22 14:48 | P.PNIM_ITS ---
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 Marks * Aggressive IV fluids * Pain control currently 3 mg acute 3 ended patient's home pain medications will bridge when tolerating * Toradol * Folic acid daily * Hydroxyurea * Retic 33.5 (2) Acute hypoxic respiratory failure: Code(s): J96.01 - Acute respiratory failure with hypoxia Status: Acute Assessment and Plan: Patient hypoxic on admission at 89% on RA likely secondary to sickle cell crisis with anemia * Patient currently on 2 L supplemental oxygen wean as tolerated * Transfusing 1 unit PRBCs (3) Normocytic anemia: Code(s): D64.9 - Anemia, unspecified Status: Acute Assessment and Plan: * HGB 7.5 today * Transfuse 1 unit PRBC * Monitor H&H * Follows with Hematology Dr. Marks O/P * on Xarelto no evidence of active bleed (4) Chronic anticoagulation: Code(s): Z79.01 - skilled nursing (current) use of anticoagulants Status: Chronic Assessment and Plan: HX of DVT's * Resumed Xarelto Plan Code status: Full code per patient DVT prophylaxis: Xarelto Stress ulcer prophylaxis: NA PT/OT notes: Ambulatory Disposition: Patient continues admission to the medical unit for sickle cell crisis will continue with aggressive IV fluids transfuse 1 unit PRBCs in aggressive pain control will deescalate as tolerated bridge back to oral home medications. Patient is ambulatory own and plan will be to return home when medically stable. Time Spent With Patient Time with patient: 15 - 25 minutes Subjective Date/time seen: 07/22/24 14:48 Interval history: Patient is a 39-year-old male who was admitted sickle cell crisis in acute respiratory failure with hypoxia. 07/22/2024: Patient still reporting pain a 01/22, Denies CP but mild SOB. Review of Systems Review of Systems: All systems reviewed & are unremarkable except as noted in HPI and below Exam Const: General: in distress HENMT: Ears: TM's normal bilaterally Face/Nose/Sinus: Normal nares present Eyes: General: appearance normal, both eyes and all related structures Sclera: sclerae normal Pupils: Equal, round and reactive pupils present Neck: Neck: supple Resp: Effort & Inspection: normal respiratory effort Auscultation: clear to auscultation bilaterally Cardio: Rate: regular rate Rhythm: regular rhythm GI: Auscultation: normal bowel sounds Skin: General skin exam: normal color Wounds: no wounds Neuro: General: gait normal Cranial nerves: Yes Equal, round and reactive pupils present Motor exam (neuro): 5/5 motor strength present throughout and Normal motor muscle tone present throughout Extrem: General: normal to inspection Psych: Mental Status: mental status grossly normal Affect: Anxious affect present Objective Data Vital Signs Vital Signs: Vital Signs - 24 hr 07/21/24 15:28 07/21/24 15:38 07/21/24 19:20 Temperature Pulse Rate 84 72 Respiratory Rate 20 18 Blood Pressure 127/83 122/71 Pulse Oximetry 90 97 99 Oxygen Delivery Nasal Cannula Oxygen Flow Rate 2 07/21/24 20:26 07/21/24 20:34 07/21/24 20:40 Temperature Pulse Rate 66 Respiratory Rate 18 Blood Pressure 118/75 Pulse Oximetry 100 95 89 L Oxygen Delivery Room Air Room Air Oxygen Flow Rate 07/21/24 20:43 07/21/24 21:44 07/21/24 22:16 Temperature 97.6 F Pulse Rate 105 H 78 Respiratory Rate 18 18 Blood Pressure 124/80 114/69 Pulse Oximetry 96 98 93 Oxygen Delivery Nasal Cannula Oxygen Flow Rate 2 07/21/24 22:46 07/22/24 00:00 07/22/24 04:00 Temperature 98.6 F 98.5 F Pulse Rate 78 72 Respiratory Rate 18 18 Blood Pressure 110/65 100/48 L Pulse Oximetry 97 95 92 Oxygen Delivery Room Air Oxygen Flow Rate 07/22/24 04:00 07/22/24 04:05 07/22/24 08:00 Temperature 97.6 F Pulse Rate 80 Respiratory Rate 16 Blood Pressure 104/54 L Pulse Oximetry 89 L 97 100 Oxygen Delivery Room Air Nasal Cannula Oxygen Flow Rate 2 07/22/24 08:00 07/22/24 12:00 Temperature 97.8 F Pulse Rate 70 Respiratory Rate 16 Blood Pressure 93/50 L Pulse Oximetry 100 99 Oxygen Delivery Room Air Oxygen Flow Rate Intake/Output Intake/Output: Intake & Output 07/19/24 07/20/24 07/21/24 07/22/24 23:59 23:59 23:59 23:59 Intake Total 1000 1380 Output Total 500 Balance 1000 880 Meds/Results Medications: Active Medications Generic Name Dose Route Start Last Admin Trade Name Freq PRN Reason Stop Dose Admin Acetaminophen 650 mg 07/21/24 23:33 Acetaminophen 325 Mg Tablet PO Q4H PRN Mild Pain (1-3) or Fever Diphenhydramine HCl 50 mg 07/22/24 03:27 07/22/24 09:34 Diphenhydramine Hcl Cap 25 Mg Capsule PO 50 mg Q6H PRN Administration Itching Folic Acid 1 mg 07/22/24 09:00 07/22/24 08:41 Folic Acid 1 Mg Tablet PO 1 mg DAILY CHRISTOPHER Administration Hydromorphone HCl 3 mg 07/22/24 14:38 07/22/24 14:44 Hydromorphone Hcl Inj (*Crx) 1 Mg/Ml Syr IV PUSH 3 mg Q3H PRN Administration Pain Rated 7-10 Hydroxyurea 500 mg 07/22/24 09:00 07/22/24 08:41 Hydroxyurea (*Chemo) 500 Mg Capsule PO 500 mg QAM CHRISTOPHER Administration Sodium Chloride 1,000 mls @ 150 mls/hr 07/21/24 23:35 07/22/24 09:37 Normal Saline Iv IV CONT 150 mls/hr .Q6H40M CHRISTOPHER Administration Sodium Chloride 250 mls @ 30 mls/hr 07/22/24 09:20 Normal Saline Iv IV CONT 07/22/24 17:39 .Q8H20M STA Ketorolac Tromethamine 30 mg 07/22/24 09:00 07/22/24 09:34 Ketorolac 30 Mg/Ml Vial (*Bkc) IV PUSH 30 mg Q8H CHRISTOPHER Administration Melatonin 5 mg 07/21/24 23:33 Melatonin 5 Mg Tablet PO HS PRN Insomnia Oxycodone/Acetaminophen 1 tab 07/21/24 23:36 Oxycodone/Acetaminophen (*Crx) 10-325 Mg Tablet PO BID PRN Pain, Moderate 4-6 Prochlorperazine Edisylate 10 mg 07/21/24 23:33 Prochlorperazine Edisylate 10 Mg/2 Ml Vial IV PUSH Q6H PRN Nausea And Vomiting Rivaroxaban 20 mg 07/22/24 17:00 Rivaroxaban 20 Mg Tablet PO DAILY@1700 CHRISTOPHER Trazodone HCl 50 mg 07/21/24 23:35 Trazodone Hcl 50 Mg Tablet PO HS PRN Insomnia Radiology Results: ITS Impressions Chest X-Ray 07/21/24 20:12 IMPRESSION: Chronic interstitial change, without focal infiltrate or effusion. Labs Labs: Laboratory Results - last 24 hr 07/21/24 07/21/24 07/22/24 16:57 17:30 06:03 WBC 14.5 H 10.1 H RBC 2.56 L 2.27 L Hgb 8.3 L 7.5 L Hct 24.3 L 21.5 L MCV 94.9 94.7 MCH 32.4 33.0 MCHC 34.2 34.9 RDW 16.7 H 17.0 H Plt Count 284 268 MPV 9.9 9.9 Immature Gran % (Auto) 0.5 0.3 Neut % (Auto) 67.0 57.2 Lymph % (Auto) 21.8 28.4 [place] % (Auto) 8.3 10.3 H Eos % (Auto) 2.1 3.5 Baso % (Auto) 0.3 0.3 Lymph # (Auto) 3.17 2.88 [place] # (Auto) 1.2 H 1.0 H Eos # (Auto) 0.3 0.4 H Baso # (Auto) 0.1 0.0 Abs Immat Gran (auto) 0.07 H 0.03 Absolute Neuts (auto) 9.7 H 5.8 Absolute Nucleated RBC 0.060 H 0.030 H Band Neutrophils % Not Reportable Nucleated RBC % 0.4 H 0.3 H Platelet Estimate Adequate % Immature Plt Fraction 3.4 Poikilocytosis 1+ Anisocytosis 1+ Sickle Cells 1+ Target Cells 1+ Ovalocytes 1+ Schistocytes None seen Absolute Retic 0.17 H Percent Retic 6.72 H Immature Retic Fraction 39.0 H Retic Hgb Content 33.5 Sodium 142 142 Potassium 4.9 4.4 Chloride 108 H 108 H Carbon Dioxide 25 28 Anion Gap 9 6 BUN 8 L 8 L Creatinine 0.75 0.80 Estim Creat Clear Calc 133 125 Estimated GFR > 60 > 60 Glucose 86 91 Calcium 8.6 8.1 L Total Bilirubin 1.4 H 1.2 AST 31 26 ALT 19 16 Alkaline Phosphatase 83 77 Total Protein 8.0 7.0 Albumin 4.4 3.7 Urine Color Yellow Urine Appearance Clear Urine pH 6.5 Ur Specific [place] 1.010 Urine Protein Negative Urine Glucose (UA) Negative Urine Ketones Negative Ur Blood (Man) Negative Urine Nitrate Negative Urine Bilirubin Negative Urine Urobilinogen 1.0 Leukocyte Esterase Rfl Negative Urine Opiates Screen Positive A Urine Methadone Screen Positive A Ur Barbiturates Screen Negative Ur Phencyclidine Scrn Negative Ur Amphetamine Screen Negative U Benzodiazepines Scrn Negative Urine Cocaine Screen Negative U Cannabinoids Screen Negative Blood Type Antibody Screen Antigen Identification Crossmatch 07/22/24 07/22/24 07/22/24 09:44 09:44 09:44 WBC RBC Hgb Hct MCV MCH MCHC RDW Plt Count MPV Immature Gran % (Auto) Neut % (Auto) Lymph % (Auto) [place] % (Auto) Eos % (Auto) Baso % (Auto) Lymph # (Auto) [place] # (Auto) Eos # (Auto) Baso # (Auto) Abs Immat Gran (auto) Absolute Neuts (auto) Absolute Nucleated RBC Band Neutrophils % Nucleated RBC % Platelet Estimate % Immature Plt Fraction Poikilocytosis Anisocytosis Sickle Cells Target Cells Ovalocytes Schistocytes Absolute Retic Percent Retic Immature Retic Fraction Retic Hgb Content Sodium Potassium Chloride Carbon Dioxide Anion Gap BUN Creatinine Estim Creat Clear Calc Estimated GFR Glucose Calcium Total Bilirubin AST ALT Alkaline Phosphatase Total Protein Albumin Urine Color Urine Appearance Urine pH Ur Specific [place] Urine Protein Urine Glucose (UA) Urine Ketones Ur Blood (Man) Urine Nitrate Urine Bilirubin Urine Urobilinogen Leukocyte Esterase Rfl Urine Opiates Screen Urine Methadone Screen Ur Barbiturates Screen Ur Phencyclidine Scrn Ur Amphetamine Screen U Benzodiazepines Scrn Urine Cocaine Screen U Cannabinoids Screen Blood Type A Positive Antibody Screen Negative Antigen Identification C Antigen - POSITIVE E Antigen - NEGATIVE [place] Antigen - NEGATIVE Crossmatch See Detail Quality VTE Prophylaxis VTE prophylaxis: pharmacologic ordered -Patient's previous records reviewed on admission -ER notes reviewed in detail on admission -discussed all findings and current treatment plan with patient/Family/POA -Consultations reviewed for recommendations -Patient's disposition for safe discharge discussed with business case analyst Dictation performed by [employer] direct speech recognition software, therefore crop roller variants and typographical errors may occur. Hospitalist [facility] Advance Care Plan I have confirmed that the patient's Advanced Care Plan is present, code status is documented, or surrogate decision maker is listed in patient medical record.: Yes Medication Reconciliation I have utilized all available resources to obtain, update and review the patients current medications (includes all prescriptions, OTC, herbals, cannabis, and nutritional supplements).: Yes The patient is not eligible for med reconciliation; the patient is in a emergent medical situation where delaying treatment would jeopardize the patients health.: No
[2024-07-22] MEDS: RIVAROXABAN 20 MG TABLET PO (16:49)
--- NOTE | 2024-07-22 17:46 | WPDONCCN ---
Assessment and Plan Assessment and plan (1) Sickle cell anemia: Code(s): D57.1 - Sickle-cell disease without crisis Status: Chronic Assessment and Plan: Sickle cell crisis. Patient has a history of hemoglobin SC disease came into the hospital with symptoms typical of his sickle cell crisis. I will check LDH and reticulocyte count. Continue IV hydration with Dilaudid 3 mg IV every 3 hours for pain control. Patient will continue hydroxyurea with folic acid as well. Patient can discharge home on clinical recovery. He will continue home medication on discharge. (2) Hx of pulmonary embolus: Code(s): Z86.711 - Personal history of pulmonary embolism Status: Acute Assessment and Plan: Patient will continue Xarelto. Chest x-ray noted. [facility] Data of Consult Date/Time: 07/22/24 17:46 Requesting Physician: Jae Alston MD Primary Care Provider: Jone Mraks MD Consult Narrative Narrative: Quan Downing is a 39 year old male with history of hemoglobin SC disease and hypercoagulable state with history of pulmonary embolism came into the hospital with generalized musculoskeletal discomfort specially upper rib area and the legs. He was taking his home pain medication without much relief. Denies any fevers and chills. Denies any night sweats. No dysuria and hematuria. Denies any diarrhea. Chest x-ray showed chronic interstitial changes without infiltrate or effusion. Labs showed hemoglobin of 8.2 with WBC of 10.2. He has been taking hydroxyurea 500 mg daily along with Xarelto. Patient denies any other complaints. Review of Systems Review of Systems: Review of system as per HPI COUNTS INCLUDE 234 BEDS AT THE [facility] Past Medical History Medical History Chronic pain syndrome Secondary to sickle cell disease. Noncompliance History of noncompliance with anticoagulation and hydroxyurea. Deep venous thrombosis Chronic anticoagulation Due to history of DVT and pulmonary embolism. Acute chest syndrome Sickle cell disease, type SC Pulmonary embolism Chronic narcotic use On methadone with oxycodone for chronic pain related to sickle cell disease. Surgical History Surgical History History of hand surgery Tendon surgery on right 5th finger. Family History Family History Grandparent Diabetes mellitus Acute myocardial infarction Sibling Asthma Sibling Asthma Mother Hypertension Sickle cell trait Son Sickle cell trait Daughter Sickle cell trait Grandparent No problems noted. Other Diabetes mellitus Father Sickle cell trait Social History Social History Social History: The patient lives in [place] with his family. He is on disability due to sickle cell disease and chronic pain. He is a lifelong nonsmoker and denies alcohol and illicit substance abuse. He uses marijuana to help with pain, states this happens 1-2x per year. He designates Jolly Zuniga (mother) or Keyla Luther (friend) as his surrogate decision makers and he wishes to be a full code. Smoking status: Never smoker Second hand tobacco smoke exposure: No Additional smoking assessment comments: Smokes marijuana when pain meds unavailable. Alcohol intake: never Substance use: former Substance use type: marijuana Other substance usage details: For back when he doesn't have any pain meds available. Last use: 12/28/22 Do You Feel Safe in your Home?: Yes Lack of Transportation: No Lack of Food: Never True Current Housing: I Have Housing Concerned About Future Housing: No Difficulty Paying Gas/Electric Bills: No Difficulty Paying for Meds: No Currently Unemployed: No Education: High School Diploma/GED Difficulty w/ Childcare or Family Care: No Living arrangements: with family Occupation/Education: other Spiritual care concerns: No Agree to blood products: Yes Meds Home Medications and Allergies Home Medications ?Medication ?Instructions ?Recorded ?Confirmed ?Type folic acid 1 mg tablet 1 mg PO DAILY 02/16/19 07/21/24 History methadone 10 mg tablet 10 mg PO TID 08/22/20 07/21/24 History oxycodone-acetaminophen 10 mg-325 1 tablet PO BID PRN Pain, Moderate 08/22/20 07/21/24 History mg tablet hydroxyurea 500 mg capsule 500 mg PO QAM #30 caps 11/23/21 07/21/24 Rx ibuprofen 800 mg tablet 800 mg PO PRN 12/30/22 07/21/24 History rivaroxaban 20 mg tablet (Xarelto) 20 mg PO DAILY@1700 #30 tabs 06/08/24 07/21/24 Rx Allergies Allergy/AdvReac Type Severity Reaction Status Date / Time Fish Containing Products Allergy Mild Itching Verified 07/21/24 23:47 Vital Signs Vital Signs - 24 hr 07/21/24 19:20 07/21/24 20:26 07/21/24 20:34 Temperature Pulse Rate 72 66 Respiratory Rate 18 18 Blood Pressure 122/71 118/75 Pulse Oximetry 99 100 95 Oxygen Delivery Room Air Oxygen Flow Rate 07/21/24 20:40 07/21/24 20:43 07/21/24 21:44 Temperature Pulse Rate 105 H Respiratory Rate 18 Blood Pressure 124/80 Pulse Oximetry 89 L 96 98 Oxygen Delivery Room Air Nasal Cannula Oxygen Flow Rate 2 07/21/24 22:16 07/21/24 22:46 07/22/24 00:00 Temperature 36.4 C 37.0 C Pulse Rate 78 78 Respiratory Rate 18 18 Blood Pressure 114/69 110/65 Pulse Oximetry 93 97 95 Oxygen Delivery Room Air Oxygen Flow Rate 07/22/24 04:00 07/22/24 04:00 07/22/24 04:05 Temperature 36.9 C Pulse Rate 72 Respiratory Rate 18 Blood Pressure 100/48 L Pulse Oximetry 92 89 L 97 Oxygen Delivery Room Air Nasal Cannula Oxygen Flow Rate 2 07/22/24 08:00 07/22/24 08:00 07/22/24 12:00 Temperature 36.4 C 36.6 C Pulse Rate 80 70 Respiratory Rate 16 16 Blood Pressure 104/54 L 93/50 L Pulse Oximetry 100 100 99 Oxygen Delivery Room Air Oxygen Flow Rate Exam Narrative: Lungs are clear to auscultation bilaterally Cardiovascular regular rate rhythm no murmurs Abdomen soft nontender nondistended Extremities no edema Results Labs 07/22/24 06:03 07/22/24 06:03 Labs: Short CBC 07/21/24 07/22/24 Range/Units 17:30 06:03 WBC 14.5 H 10.1 H (4.5-10.0) K/mm3 Hgb 8.3 L 7.5 L (14.0-18.0) g/dL Hct 24.3 L 21.5 L (42.0-52.0) % Plt Count 284 268 (150-375) k/mm3 BMP 07/21/24 07/22/24 17:30 06:03 Sodium 142 142 Potassium 4.9 4.4 Chloride 108 H 108 H Carbon Dioxide 25 28 BUN 8 L 8 L Creatinine 0.75 0.80 Glucose 86 91 Calcium 8.6 8.1 L Liver Function 07/21/24 07/22/24 Range/Units 17:30 06:03 Total Bilirubin 1.4 H 1.2 (0.2-1.3) mg/dL AST 31 26 (17-59) U/L ALT 19 16 (6-50) U/L Alkaline Phosphatase 83 77 (38-126) U/L Albumin 4.4 3.7 (3.5-5.1) g/dL
[2024-07-22 18:08] LABS: Immature Reticulocyte Fraction 39.6 % (3.0-15.9); Reticulocyte Hemoglobin Conten 33.1 pg (28.2-36.6); Reticulocyte Percent 6.75 % (0.7-4.3); Reticulocytes Absolute 0.15 10^6/uL (0.02-0.10)
[2024-07-22 18:28] LABS: Lactate Dehydrogenase 209 U/L (120-246)
[2024-07-23] VITALS (10 sets, daily range): BP systolic 100–119; BP diastolic 56–67; PULSE 69–84; RESP 13–18; TEMP 36.4–36.8; O2SAT 95–100
[2024-07-23] MEDS: HYDROmorphone HCL INJ (*CRX) 1 MG/ML SYR 3 MG IV PUSH ×8 (00:08→22:18)
[2024-07-23] MEDS: KETOROLAC 30 MG/ML VIAL (*BKC) IV PUSH ×3 (01:37→16:04)
[2024-07-23] MEDS: SODIUM CHLORIDE 0.9% IV 1,000 ML 150 ML IV CONT ×3 (01:37→13:02)
[2024-07-23 06:15] LABS: Hematocrit 21.9 % (42.0-52.0); Hemoglobin 7.7 g/dL (14.0-18.0); Mean Corpuscular HGB Conc 35.2 g/dl (32-36); Mean Corpuscular Hemoglobin 32.9 pg (26-34); Mean Corpuscular Volume 93.6 fl (80-100); Mean Platelet Volume 10.6 fl (7.4-10.4); Platelet Count Result 274 k/mm3 (150-375); Red Blood Count 2.34 M/mm3 (4.6-6.20); Red Cell Distribution Width 16.9 % (11.5-14.5); White Blood Count 9.1 K/mm3 (4.5-10.0)
[2024-07-23 06:27] LABS: Alanine Aminotransferase 16 U/L (6-50); Albumin Level 3.7 g/dL (3.5-5.1); Alkaline Phosphatase 72 U/L (38-126); Anion Gap 6 mmol/L (4-12); Aspartate Amino Transferase 29 U/L (17-59); Blood Urea Nitrogen 10 mg/dL (9-20); Calcium 7.9 mg/dL (8.4-10.2); Carbon Dioxide 28 mmol/L (22-30); Chloride 108 mmol/L (98-107); Estimated CRCL calculation 123 ml/min; Estimated Glomerular Filt Rate > 60; Glucose 112 mg/dL (65-110); Potassium 4.4 mmol/L (3.4-5.0); Sodium 142 mmol/L (137-145)
[2024-07-23] MEDS: SODIUM CHLORIDE 0.9% IV 250 ML 30 ML IV CONT (09:10)
[2024-07-23] MEDS: HYDROXYUREA (*CHEMO) 500 MG CAPSULE PO (09:15)
[2024-07-23] MEDS: FOLIC ACID 1 MG TABLET PO (09:16)
--- NOTE | 2024-07-23 09:51 | P.PNIM_ITS ---
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 Marks. Patient pain better controlled today went from 01/22 to 11/22 will continue with current pain medication schedule and attempt to de-escalate tomorrow. Patient did receive 1 unit PRBC which improved his pain. Plan to follow-up with hematology outpatient as scheduled. * Aggressive IV fluids * Pain control currently 3 mg Dilaudid q.3h deescalate as patient tolerates attempt to bridge back to home pain medication * Toradol * Folic acid daily * Hydroxyurea * Retic 33.5 (2) Normocytic anemia: Code(s): D64.9 - Anemia, unspecified Status: Acute Assessment and Plan: * HGB 7.7 today * 1 unit PRBC transfused today * Monitor H&H * Follows with Hematology Dr. Marks O/P * on Xarelto no evidence of active bleed (3) Chronic anticoagulation: Code(s): Z79.01 - [facility] (current) use of anticoagulants Status: Chronic Assessment and Plan: HX of DVT's * Resumed Xarelto (4) Acute hypoxic respiratory failure: Code(s): J96.01 - Acute respiratory failure with hypoxia Status: Resolved Assessment and Plan: RESOLVED Patient hypoxic on admission at 89% on RA likely secondary to sickle cell crisis with anemia. patient was weaned off of oxygen after pain control and transfusion of 1 unit PRBCs currently at 98% * Patient currently on 2 L supplemental oxygen wean as tolerated * Transfusing 1 unit PRBCs Weaned off supplemental oxygen Plan Code status: Full code per patient DVT prophylaxis: Xarelto Stress ulcer prophylaxis: NA PT/OT notes: Ambulatory Disposition: Patient continues admission to the medical unit for sickle cell crisis will continue with aggressive IV fluids transfuse 1 unit PRBCs in aggressive pain control will deescalate as tolerated bridge back to oral home medications. Patient is ambulatory own and plan will be to return home when medically stable. will follow-up with Dr. Marks outpatient as scheduled. Time Spent With Patient Time with patient: 15 - 25 minutes Subjective Date/time seen: 07/23/24 09:51 Interval history: Patient is a 39-year-old male who was admitted sickle cell crisis in acute respiratory failure with hypoxia. 07/23/2024: Patient reported pain improved 8/10 after blood transfusion. Denied CP and SOB off oxygen. Review of Systems Review of Systems: All systems reviewed & are unremarkable except as noted in HPI and below Exam Const: General: in distress HENMT: Ears: TM's normal bilaterally Face/Nose/Sinus: Normal nares present Eyes: General: appearance normal, both eyes and all related structures Sclera: sclerae normal Pupils: Equal, round and reactive pupils present Neck: Neck: supple Resp: Effort & Inspection: normal respiratory effort Auscultation: clear to auscultation bilaterally Cardio: Rate: regular rate Rhythm: regular rhythm GI: Auscultation: normal bowel sounds Skin: General skin exam: normal color Wounds: no wounds Neuro: General: gait normal Cranial nerves: Yes Equal, round and reactive pupils present Motor exam (neuro): 5/5 motor strength present throughout and Normal motor muscle tone present throughout Extrem: General: normal to inspection Psych: Mental Status: mental status grossly normal Affect: Anxious affect present Objective Data Vital Signs Vital Signs: Vital Signs - 24 hr 07/22/24 12:00 07/22/24 16:00 07/22/24 20:00 Temperature 97.8 F 97.8 F 98.4 F Pulse Rate 70 77 72 Respiratory Rate 16 16 16 Blood Pressure 93/50 L 107/66 110/53 L Pulse Oximetry 99 98 100 Oxygen Delivery Oxygen Flow Rate 07/22/24 21:00 07/22/24 23:26 07/23/24 03:49 Temperature 98.6 F 97.8 F Pulse Rate 70 81 Respiratory Rate 18 17 Blood Pressure 112/60 100/65 Pulse Oximetry 96 100 100 Oxygen Delivery Nasal Cannula Oxygen Flow Rate 2 07/23/24 08:00 07/23/24 08:00 07/23/24 09:01 Temperature 97.6 F 97.6 F Pulse Rate 69 69 Respiratory Rate 16 16 Blood Pressure 112/67 112/67 Pulse Oximetry 100 99 99 Oxygen Delivery Nasal Cannula Oxygen Flow Rate 2 07/23/24 09:25 Temperature 97.9 F Pulse Rate 75 Respiratory Rate 18 Blood Pressure 119/66 Pulse Oximetry 98 Oxygen Delivery Oxygen Flow Rate Intake/Output Intake/Output: Intake & Output 07/20/24 07/21/24 07/22/24 07/23/24 23:59 23:59 23:59 23:59 Intake Total 1000 2617 1297.5 Output Total 1400 500 Balance 1000 1217 797.5 Meds/Results Medications: Active Medications Generic Name Dose Route Start Last Admin Trade Name Freq PRN Reason Stop Dose Admin Acetaminophen 650 mg 07/21/24 23:33 Acetaminophen 325 Mg Tablet PO Q4H PRN Mild Pain (1-3) or Fever Diphenhydramine HCl 50 mg 07/22/24 03:27 07/22/24 21:03 Diphenhydramine Hcl Cap 25 Mg Capsule PO 50 mg Q6H PRN Administration Itching Folic Acid 1 mg 07/22/24 09:00 07/23/24 09:16 Folic Acid 1 Mg Tablet PO 1 mg DAILY CHRISTOPHER Administration Hydromorphone HCl 3 mg 07/22/24 14:38 07/23/24 06:11 Hydromorphone Hcl Inj (*Crx) 1 Mg/Ml Syr IV PUSH 3 mg Q3H PRN Administration Pain Rated 7-10 Hydroxyurea 500 mg 07/22/24 09:00 07/23/24 09:15 Hydroxyurea (*Chemo) 500 Mg Capsule PO 500 mg QAM CHRISTOPHER Administration Sodium Chloride 1,000 mls @ 150 mls/hr 07/21/24 23:35 07/23/24 06:16 Normal Saline Iv IV CONT 150 mls/hr .Q6H40M CHRISTOPHER Administration Ketorolac Tromethamine 30 mg 07/22/24 09:00 07/23/24 09:14 Ketorolac 30 Mg/Ml Vial (*Bkc) IV PUSH 30 mg Q8H CHRISTOPHER Administration Melatonin 5 mg 07/21/24 23:33 Melatonin 5 Mg Tablet PO HS PRN Insomnia Oxycodone/Acetaminophen 1 tab 07/21/24 23:36 Oxycodone/Acetaminophen (*Crx) 10-325 Mg Tablet PO BID PRN Pain, Moderate 4-6 Prochlorperazine Edisylate 10 mg 07/21/24 23:33 Prochlorperazine Edisylate 10 Mg/2 Ml Vial IV PUSH Q6H PRN Nausea And Vomiting Rivaroxaban 20 mg 07/22/24 17:00 07/22/24 16:49 Rivaroxaban 20 Mg Tablet PO 20 mg DAILY@1700 CHRISTOPHER Administration Trazodone HCl 50 mg 07/21/24 23:35 Trazodone Hcl 50 Mg Tablet PO HS PRN Insomnia Radiology Results: ITS Impressions Chest X-Ray 07/21/24 20:12 IMPRESSION: Chronic interstitial change, without focal infiltrate or effusion. Labs Labs: Laboratory Results - last 24 hr 07/22/24 07/22/24 07/22/24 06:03 09:44 09:44 WBC RBC Hgb Hct MCV MCH MCHC RDW Plt Count MPV Absolute Retic 0.15 H Percent Retic 6.75 H Immature Retic Fraction 39.6 H Retic Hgb Content 33.1 Sodium Potassium Chloride Carbon Dioxide Anion Gap BUN Creatinine Estim Creat Clear Calc Estimated GFR Glucose Calcium Total Bilirubin AST ALT Alkaline Phosphatase Lactate Dehydrogenase 209 Total Protein Albumin Blood Type A Positive Antibody Screen Negative Antigen Identification C Antigen - POSITIVE E Antigen - NEGATIVE Enhanced Crossmatch 07/22/24 07/23/24 09:44 05:52 WBC 9.1 RBC 2.34 L Hgb 7.7 L Hct 21.9 L MCV 93.6 MCH 32.9 MCHC 35.2 RDW 16.9 H Plt Count 274 MPV 10.6 H Absolute Retic Percent Retic Immature Retic Fraction Retic Hgb Content Sodium 142 Potassium 4.4 Chloride 108 H Carbon Dioxide 28 Anion Gap 6 BUN 10 Creatinine 0.82 Estim Creat Clear Calc 123 Estimated GFR > 60 Glucose 112 H Calcium 7.9 L Total Bilirubin 1.0 AST 29 ALT 16 Alkaline Phosphatase 72 Lactate Dehydrogenase Total Protein 7.0 Albumin 3.7 Blood Type Antibody Screen Antigen Identification [place] Antigen - NEGATIVE Enhanced Crossmatch See Detail Quality VTE Prophylaxis VTE prophylaxis: pharmacologic ordered -Patient's previous records reviewed on admission -ER notes reviewed in detail on admission -discussed all findings and current treatment plan with patient/Family/POA -Consultations reviewed for recommendations -Patient's disposition for safe discharge discussed with briefcase sewer Dictation performed by [employer] direct speech recognition software, therefore tenoner operator variants and typographical errors may occur. Hospitalist MIPS Advance Care Plan I have confirmed that the patient's Advanced Care Plan is present, code status is documented, or surrogate decision maker is listed in patient medical record.: Yes Medication Reconciliation I have utilized all available resources to obtain, update and review the patients current medications (includes all prescriptions, OTC, herbals, cannabis, and nutritional supplements).: Yes The patient is not eligible for med reconciliation; the patient is in a emergent medical situation where delaying treatment would jeopardize the patients health.: No
[2024-07-23] MEDS: diphenhydrAMINE HCl CAP 25 MG CAPSULE 50 MG PO ×2 (12:54→22:22)
[2024-07-23] MEDS: oxyCODONE/ACETAMINOPHEN (*CRX) 10-325 MG TABLET 1 TAB PO (14:37)
[2024-07-23] MEDS: RIVAROXABAN 20 MG TABLET PO (16:04)
[2024-07-24] VITALS (8 sets, daily range): BP systolic 108–124; BP diastolic 69–80; PULSE 75–87; RESP 14–19; TEMP 36.3–36.9; O2SAT 94–100
[2024-07-24] MEDS: KETOROLAC 30 MG/ML VIAL (*BKC) IV PUSH ×3 (00:27→18:14)
[2024-07-24] MEDS: HYDROmorphone HCL INJ (*CRX) 1 MG/ML SYR 3 MG IV PUSH ×7 (01:26→23:34)
[2024-07-24] MEDS: SODIUM CHLORIDE 0.9% IV 1,000 ML 150 ML IV CONT ×4 (01:27→23:33)
[2024-07-24] MEDS: diphenhydrAMINE HCl CAP 25 MG CAPSULE 50 MG PO ×3 (05:07→18:14)
[2024-07-24 06:45] LABS: Hemoglobin 8.5 g/dL (14.0-18.0); Mean Corpuscular Hemoglobin 32.1 pg (26-34); Mean Corpuscular Volume 94.3 fl (80-100); Mean Platelet Volume 10.6 fl (7.4-10.4); Platelet Count Result 262 k/mm3 (150-375); Red Blood Count 2.65 M/mm3 (4.6-6.20); Red Cell Distribution Width 17.5 % (11.5-14.5)
[2024-07-24 07:01] LABS: Alanine Aminotransferase 16 U/L (6-50); Albumin Level 3.7 g/dL (3.5-5.1); Alkaline Phosphatase 74 U/L (38-126); Anion Gap 6 mmol/L (4-12); Aspartate Amino Transferase 27 U/L (17-59); Bilirubin,Total 1.2 mg/dL (0.2-1.3); Blood Urea Nitrogen 9 mg/dL (9-20); Calcium 8.1 mg/dL (8.4-10.2); Carbon Dioxide 25 mmol/L (22-30); Chloride 110 mmol/L (98-107); Estimated CRCL calculation 135 ml/min; Estimated Glomerular Filt Rate > 60; Glucose 96 mg/dL (65-110); Potassium 4.1 mmol/L (3.4-5.0); Sodium 141 mmol/L (137-145)
[2024-07-24] MEDS: FOLIC ACID 1 MG TABLET PO (08:58)
[2024-07-24] MEDS: HYDROXYUREA (*CHEMO) 500 MG CAPSULE PO (08:58)
--- NOTE | 2024-07-24 10:37 | P.PNIM_ITS ---
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 Marks. Will attempt to deescalate patient's IV pain medication to after received 1 unit PRBCs weaned oxygen and hemoglobin today. Plan to follow-up with hematology outpatient as scheduled. * Aggressive IV fluids * Pain control currently de-escalated Dilaudid 3 mg from 3 hours to 4 hours patient is currently bridging with his oral pain medication * Toradol * Folic acid daily * Hydroxyurea * Retic 33.5 (2) Normocytic anemia: Code(s): D64.9 - Anemia, unspecified Status: Acute Assessment and Plan: * HGB 7.7 today * 1 unit PRBC transfused today * Monitor H&H * Follows with Hematology Dr. Marks O/P * on Xarelto no evidence of active bleed (3) Chronic anticoagulation: Code(s): Z79.01 - [facility] (current) use of anticoagulants Status: Chronic Assessment and Plan: HX of DVT's * Resumed Xarelto (4) Acute hypoxic respiratory failure: Code(s): J96.01 - Acute respiratory failure with hypoxia Status: Resolved Assessment and Plan: RESOLVED Patient hypoxic on admission at 89% on RA likely secondary to sickle cell crisis with anemia. patient was weaned off of oxygen after pain control and transfusion of 1 unit PRBCs currently at 98% * Patient currently on 2 L supplemental oxygen wean as tolerated * Transfusing 1 unit PRBCs Weaned off supplemental oxygen Plan Code status: Full code per patient DVT prophylaxis: Xarelto Stress ulcer prophylaxis: NA PT/OT notes: Ambulatory Disposition: Patient continues admission to the medical unit for sickle cell crisis will continue with aggressive IV fluids transfuse 1 unit PRBCs in aggressive pain control will deescalate as tolerated bridge back to oral home medications. Patient is ambulatory own and plan will be to return home when medically stable. will follow-up with Dr. Marks outpatient as scheduled. Time Spent With Patient Time with patient: 15 - 25 minutes Subjective Date/time seen: 07/24/24 10:37 Interval history: Patient is a 39-year-old male who was admitted sickle cell crisis in acute respiratory failure with hypoxia. 07/24/2024: Patient's pain is gradually improving denies any chest pain or shortness a breath currently off supplemental oxygen will continue to deescalate IV pain medication. Review of Systems Review of Systems: All systems reviewed & are unremarkable except as noted in HPI and below Exam Const: General: in distress HENMT: Ears: TM's normal bilaterally Face/Nose/Sinus: Normal nares present Eyes: General: appearance normal, both eyes and all related structures Sclera: sclerae normal Pupils: Equal, round and reactive pupils present Neck: Neck: supple Resp: Effort & Inspection: normal respiratory effort Auscultation: clear to auscultation bilaterally Cardio: Rate: regular rate Rhythm: regular rhythm GI: Auscultation: normal bowel sounds Skin: General skin exam: normal color Wounds: no wounds Neuro: General: gait normal Cranial nerves: Yes Equal, round and reactive pupils present Motor exam (neuro): 5/5 motor strength present throughout and Normal motor muscle tone present throughout Extrem: General: normal to inspection Psych: Mental Status: mental status grossly normal Affect: Anxious affect present Objective Data Vital Signs Vital Signs: Vital Signs - 24 hr 07/23/24 11:10 07/23/24 12:00 07/23/24 12:00 Temperature 97.9 F 97.9 F 97.9 F Pulse Rate 76 84 84 Respiratory Rate 16 16 16 Blood Pressure 115/56 L 113/64 113/64 Pulse Oximetry 98 99 99 Oxygen Delivery 07/23/24 16:00 07/23/24 20:00 07/23/24 20:35 Temperature 98.3 F 98.0 F Pulse Rate 76 73 Respiratory Rate 16 13 Blood Pressure 111/64 116/61 Pulse Oximetry 95 96 96 Oxygen Delivery Room Air 07/24/24 00:00 07/24/24 04:00 Temperature 98.2 F 98.0 F Pulse Rate 82 76 Respiratory Rate 14 19 Blood Pressure 108/72 124/69 Pulse Oximetry 95 94 Oxygen Delivery Intake/Output Intake/Output: Intake & Output 07/21/24 07/22/24 07/23/24 07/24/24 23:59 23:59 23:59 23:59 Intake Total 1000 2617 4121.5 1250 Output Total 1400 2700 2200 Balance 1000 1217 1421.5 -950 Meds/Results Medications: Active Medications Generic Name Dose Route Start Last Admin Trade Name Freq PRN Reason Stop Dose Admin Acetaminophen 650 mg 07/21/24 23:33 Acetaminophen 325 Mg Tablet PO Q4H PRN Mild Pain (1-3) or Fever Diphenhydramine HCl 50 mg 07/22/24 03:27 07/24/24 05:07 Diphenhydramine Hcl Cap 25 Mg Capsule PO 50 mg Q6H PRN Administration Itching Folic Acid 1 mg 07/22/24 09:00 07/24/24 08:58 Folic Acid 1 Mg Tablet PO 1 mg DAILY CHRISTOPHER Administration Hydromorphone HCl 3 mg 07/22/24 14:38 07/24/24 08:25 Hydromorphone Hcl Inj (*Crx) 1 Mg/Ml Syr IV PUSH 3 mg Q3H PRN Administration Pain Rated 7-10 Hydroxyurea 500 mg 07/22/24 09:00 07/24/24 08:58 Hydroxyurea (*Chemo) 500 Mg Capsule PO 500 mg QAM CHRISTOPHER Administration Sodium Chloride 1,000 mls @ 150 mls/hr 07/21/24 23:35 07/24/24 08:57 Normal Saline Iv IV CONT 150 mls/hr .Q6H40M CHRISTOPHER Administration Ketorolac Tromethamine 30 mg 07/22/24 09:00 07/24/24 08:58 Ketorolac 30 Mg/Ml Vial (*Bkc) IV PUSH 30 mg Q8H CHRISTOPHER Administration Melatonin 5 mg 07/21/24 23:33 Melatonin 5 Mg Tablet PO HS PRN Insomnia Oxycodone/Acetaminophen 1 tab 07/21/24 23:36 07/23/24 14:37 Oxycodone/Acetaminophen (*Crx) 10-325 Mg Tablet PO 1 tab BID PRN Administration Pain, Moderate 4-6 Prochlorperazine Edisylate 10 mg 07/21/24 23:33 Prochlorperazine Edisylate 10 Mg/2 Ml Vial IV PUSH Q6H PRN Nausea And Vomiting Rivaroxaban 20 mg 07/22/24 17:00 07/23/24 16:04 Rivaroxaban 20 Mg Tablet PO 20 mg DAILY@1700 CHRISTOPHER Administration Trazodone HCl 50 mg 07/21/24 23:35 Trazodone Hcl 50 Mg Tablet PO HS PRN Insomnia Radiology Results: ITS Impressions Chest X-Ray 07/21/24 20:12 IMPRESSION: Chronic interstitial change, without focal infiltrate or effusion. Labs Labs: Laboratory Results - last 24 hr 07/22/24 07/24/24 09:44 06:11 WBC 9.0 RBC 2.65 L Hgb 8.5 L Hct 25.0 L MCV 94.3 MCH 32.1 MCHC 34.0 RDW 17.5 H Plt Count 262 MPV 10.6 H Sodium 141 Potassium 4.1 Chloride 110 H Carbon Dioxide 25 Anion Gap 6 BUN 9 Creatinine 0.74 Estim Creat Clear Calc 135 Estimated GFR > 60 Glucose 96 Calcium 8.1 L Total Bilirubin 1.2 AST 27 ALT 16 Alkaline Phosphatase 74 Total Protein 7.0 Albumin 3.7 Enhanced Crossmatch See Detail Quality VTE Prophylaxis VTE prophylaxis: pharmacologic ordered -Patient's previous records reviewed on admission -ER notes reviewed in detail on admission -discussed all findings and current treatment plan with patient/Family/POA -Consultations reviewed for recommendations -Patient's disposition for safe discharge discussed with case management coordinator Dictation performed by [employer] direct speech recognition software, therefore animal damage control agent variants and typographical errors may occur. Hospitalist MIPS Advance Care Plan I have confirmed that the patient's Advanced Care Plan is present, code status is documented, or surrogate decision maker is listed in patient medical record.: Yes Medication Reconciliation I have utilized all available resources to obtain, update and review the patients current medications (includes all prescriptions, OTC, herbals, cannabis, and nutritional supplements).: Yes The patient is not eligible for med reconciliation; the patient is in a emergent medical situation where delaying treatment would jeopardize the patients health.: No
[2024-07-24] MEDS: oxyCODONE/ACETAMINOPHEN (*CRX) 10-325 MG TABLET 1 TAB PO (12:36)
[2024-07-24] MEDS: RIVAROXABAN 20 MG TABLET PO (18:13)
[2024-07-25] MEDS: diphenhydrAMINE HCl CAP 25 MG CAPSULE 50 MG PO ×2 (00:08→08:46)
[2024-07-25] MEDS: KETOROLAC 30 MG/ML VIAL (*BKC) IV PUSH ×2 (01:28→09:49)
[2024-07-25] MEDS: HYDROmorphone HCL INJ (*CRX) 1 MG/ML SYR 3 MG IV PUSH ×3 (03:28→12:44)
[2024-07-25 05:21] VITALS: BP 119/72; PULSE 78; RESP 16; TEMP 36.6; O2SAT 96
[2024-07-25 06:45] LABS: Hemoglobin 8.7 g/dL (14.0-18.0); Mean Corpuscular HGB Conc 33.5 g/dl (32-36); Mean Corpuscular Hemoglobin 32.3 pg (26-34); Mean Corpuscular Volume 96.7 fl (80-100); Platelet Count Result 273 k/mm3 (150-375); Red Blood Count 2.69 M/mm3 (4.6-6.20); Red Cell Distribution Width 17.5 % (11.5-14.5); White Blood Count 9.3 K/mm3 (4.5-10.0)
[2024-07-25 07:05] LABS: Alanine Aminotransferase 16 U/L (6-50); Albumin Level 3.8 g/dL (3.5-5.1); Alkaline Phosphatase 73 U/L (38-126); Anion Gap 8 mmol/L (4-12); Aspartate Amino Transferase 34 U/L (17-59); Bilirubin,Total 1.4 mg/dL (0.2-1.3); Blood Urea Nitrogen 8 mg/dL (9-20); Calcium 8.1 mg/dL (8.4-10.2); Carbon Dioxide 22 mmol/L (22-30); Chloride 109 mmol/L (98-107); Estimated CRCL calculation 133 ml/min; Estimated Glomerular Filt Rate > 60; Glucose 109 mg/dL (65-110); Potassium 4.1 mmol/L (3.4-5.0); Sodium 139 mmol/L (137-145)
[2024-07-25] MEDS: FOLIC ACID 1 MG TABLET PO (08:39)
[2024-07-25] MEDS: HYDROXYUREA (*CHEMO) 500 MG CAPSULE PO (08:39)
[2024-07-25] MEDS: SODIUM CHLORIDE 0.9% IV 1,000 ML 150 ML IV CONT (08:41)
[2024-07-25] MEDS: oxyCODONE/ACETAMINOPHEN (*CRX) 10-325 MG TABLET 1 TAB PO (09:48)
[2024-07-25 10:00] VITALS: BP 121/70; PULSE 72; RESP 18; TEMP 36.8; O2SAT 96
[2024-07-25 10:03] VITALS: O2SAT 99
[2024-07-25 14:00] VITALS: BP 123/84; PULSE 84; RESP 18; TEMP 36.8; O2SAT 96
--- NOTE | 2024-07-25 14:01 | P.DS_ITS ---
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 Upon evaluation in the ED was found to be hypoxic at 88% and anemic with pain 10/10. Patient was admitted to further treatment of sickle cell crisis with consult to his bonded structures repairer Dr. Marks. Continue with patient's Pain Management 2 g Dilaudid q.3 hours for pain control assault aggressive IV fluids, hydroxyurea, and Toradol at 1 point patient's hemoglobin dropped to 7 point he was transfused 1 unit PRBCs. Patient was weaned oxygen 96% room air continue to deescalate pain medication as tolerated. Patient had overall improvement to symptoms and was discharged home on previous oral pain medication with follow-up with Hematology outpatient. Patient discharged home. Patient acknowledged and agreed with discharge plan Status at Discharge Functional status at discharge: independent ambulation Overall status at discharge: patient is back to baseline Time Spent with Patient Time attestation: Total time spent providing and/or coordinating discharge services: Time spent: Less than 30 minutes Exam Const: General: in distress HENMT: Ears: TM's normal bilaterally Face/Nose/Sinus: Normal nares present Eyes: General: appearance normal, both eyes and all related structures Sclera: sclerae normal Pupils: Equal, round and reactive pupils present Neck: Neck: supple Resp: Effort & Inspection: normal respiratory effort Auscultation: clear to auscultation bilaterally Cardio: Rate: regular rate Rhythm: regular rhythm GI: Auscultation: normal bowel sounds Skin: General skin exam: normal color Wounds: no wounds Neuro: General: gait normal Cranial nerves: Yes Equal, round and reactive pupils present Motor exam (neuro): 5/5 motor strength present throughout and Normal motor muscle tone present throughout Extrem: General: normal to inspection Psych: Mental Status: mental status grossly normal Affect: Anxious affect present DS: Data Data Completed and Pending Labs on day of discharge: Labs from last 24 hours 07/25/24 06:13 WBC 9.3 RBC 2.69 L Hgb 8.7 L Hct 26.0 L MCV 96.7 MCH 32.3 MCHC 33.5 RDW 17.5 H Plt Count 273 MPV 10.0 Sodium 139 Potassium 4.1 Chloride 109 H Carbon Dioxide 22 Anion Gap 8 BUN 8 L Creatinine 0.75 Estim Creat Clear Calc 133 Estimated GFR > 60 Glucose 109 Calcium 8.1 L Total Bilirubin 1.4 H AST 34 ALT 16 Alkaline Phosphatase 73 Total Protein 7.0 Albumin 3.8 Imaging Radiologist's impression: CHEST RADIOGRAPH CLINICAL HISTORY: hypoxia; sickle cell . COMPARISON: 06/01/2024 TECHNIQUE: Single portable view of the chest. FINDINGS The cardiomediastinal silhouette is unremarkable. Interstitial thickening within the bilateral lung bases, left greater than right. Traction bronchiectasis is also noted. The remainder of the lungs are clear. IMPRESSION: Chronic interstitial change, without focal infiltrate or effusion. Discharge Plan Discharge Attending physician on discharge: Juvencio Hammond Consulting providers: Jone Marks; Edgardo Fonseca; Deana Ynig Discharging Clinician: Dianne Johnston Anticipated Discharge Date/Time: 07/25/24 13:57 Patient Disposition: Home Activity: may shower and as tolerated Diet: regular Discharge Instructions: Sickle cell anemia * Encourage oral hydration * Continue with current pain management as prescribed by bonded structures repairer * Follow-up with hematology as scheduled How can you care for yourself at home? ? Keep track of any new symptoms or changes in your symptoms. ? Rest until you feel better. ? Be safe with medicines. Take your medicines exactly as prescribed. Call your doctor if you think you are having a problem with your medicine. ? Do not drive after taking a prescription pain medicine. ? Ensure to follow-up with primary care physician as indicated and provide updated medication list provided to you at discharge. When should you call for help? Call 911 anytime you think you may need emergency care. For example, call if: ? You passed out (lost consciousness). Call your doctor now or seek immediate medical care if: ? You have new symptoms like fever, difficulty breathing, Chest pain, vomiting, or rash. ? You have new or different pain. ? You are confused and are having trouble thinking clearly. ? Your symptoms are getting worse. Watch closely for changes in your health, and be sure to contact your doctor if: ? You do not get better as expected. Patient Instructions: Antibiotic Form, Sickle Cell Crisis (DC), Sickle Cell Disease (DC), Blood Thinners (GEN) Patient Language: Icelandic Stand Alone Forms: General Discharge Information Follow-up/Referrals: Jone Marks MD [Primary Care Provider] - Keep Reg. Scheduled Appt. Discharge Medications: Continued folic acid 1 mg Tablet 1 mg PO DAILY methadone 10 mg tablet 10 mg PO TID Rx Instructions: 0900, 1700, 2100 oxycodone-acetaminophen 10-325 mg tablet 1 tablet PO BID PRN (Reason: Pain, Moderate) hydroxyurea 500 mg Capsule 500 mg PO QAM Qty: 30 0RF ibuprofen 800 mg tablet 800 mg PO PRN Xarelto 20 mg Tablet 20 mg PO DAILY@1700 Qty: 30 0RF Rx Instructions: after 15 mg twice daily dosing is complete Date of admission: 07/22/24 14:49 Primary Care Provider: Jone Marks Admitting Provider: Jae Alston Attending physician on admission: Dianne Johnston Condition: Stable Quality VTE Prophylaxis VTE prophylaxis: pharmacologic ordered -Patient's previous records reviewed on admission -ER notes reviewed in detail on admission -discussed all findings and current treatment plan with patient/Family/POA -Consultations reviewed for recommendations -Patient's disposition for safe discharge discussed with insurance case manager Dictation performed by [employer] direct speech recognition software, therefore machine deicer element winder variants and typographical errors may occur. Hospitalist MIPS Heart Failure (Exclusion) Patient has history of Heart Transplant or Left Ventricular Assistive Device?: No IF YES, STOP HERE Heart Failure (Qualifier) Patient has current or prior documentation of LVEF less than or equal to 40%, or mod/servere depressed LVSF?: No IF NO, STOP HERE
== END 2024-07-25 15:00 | disposition home or self-care (01) | DRG 811 ==
LOC: ANHED 20:44 → ANH3MEDSUR 21:14
PROVIDERS: Preventive Medicine Aerospace Medicine; Admitting Provider Internal Medicine; Emergency Provider Student in an Organized Health Care Education/Training Program; PCP Internal Medicine Hematology & Oncology; Visit Provider Nurse Practitioner Family
DX: D57.219 Sickle-cell/Hb-C disease with crisis, unspecified (principal); J96.01 Acute respiratory failure with hypoxia; F11.20 Opioid dependence, uncomplicated; D64.9 Anemia, unspecified; D72.829 Elevated white blood cell count, unspecified; Z86.718 Personal history of other venous thrombosis and embolism; Z79.01 Long term (current) use of anticoagulants; Z86.711 Personal history of pulmonary embolism
CPT/HCPCS: 36415; 36430; 71045; 80047; 80053; 80307; 81003; 83615; 85025; 85027; 85046; 85055; 85610; 86850; 86900; 86901; 86902; 86922; 96374; 96375; 96376; 99285; A9270; G0378; J1171; J1200; J1885; J2405; J7030; J7050; P9016

== ENCOUNTER 2024-08-17 09:53 | Outpatient (CLI) | payer MEDICARE, MEDICAID, SELFPAY ==
[2024-08-17 10:11] LABS: Basophils Absolute Auto 0.1 K/mm3 (0.0-0.1); Eosinophils Absolute Auto 0.5 K/mm3 (0-0.3); Eosinophils Percent Auto 5.1 % (0-4.4); Hematocrit 24.9 % (42.0-52.0); Hemoglobin 8.9 g/dL (14.0-18.0); Immature Granulocyte Absolute 0.05 K/mm3 (0.00-0.031); Immature Granulocyte Percent A 0.5 % (0-0.5); Lymphocytes Absolute Auto 3.37 K/mm3 (0.9-3.2); Lymphocytes Percent Auto 36.9 % (18.3-44.2); Mean Corpuscular HGB Conc 35.7 g/dl (32-36); Mean Corpuscular Hemoglobin 32.7 pg (26-34); Mean Corpuscular Volume 91.5 fl (80-100); Mean Platelet Volume 9.7 fl (7.4-10.4); Monocytes Absolute Auto 0.8 K/mm3 (0.1-0.6); Monocytes Percent Auto 8.5 % (2.6-8.5); Neutrophils Absolute Auto 4.4 K/mm3 (1.3-6.7); Nucleated Red Blood Cells Perc 0.2 % (0.0-0.2); Platelet Count Result 334 k/mm3 (150-375); Red Blood Count 2.72 M/mm3 (4.6-6.20); Red Cell Distribution Width 15.7 % (11.5-14.5); White Blood Count 9.1 K/mm3 (4.5-10.0)
[2024-08-17 10:14] LABS: Blood Urea Nitrogen 6 mg/dL (8-26); Carbon Dioxide 24 mmol/L (22-30); Chloride 106 mmol/L (98-109); Estimated Glomerular Filt Rate > 60; Glucose 123 mg/dL (70-105); Ionized Calcium (POC) 1.15 mmol/L (1.11-1.31); Potassium 3.4 mmol/L (3.5-4.9); Sodium 143 mmol/L (138-146)
[2024-08-17 10:35] LABS: Alanine Aminotransferase 16 U/L (6-50); Albumin Level 4.2 g/dL (3.5-5.1); Alkaline Phosphatase 101 U/L (38-126); Anion Gap 9 mmol/L (4-12); Aspartate Amino Transferase 28 U/L (17-59); Bilirubin,Total 0.9 mg/dL (0.2-1.3); Blood Urea Nitrogen 8 mg/dL (9-20); Calcium 8.4 mg/dL (8.4-10.2); Carbon Dioxide 24 mmol/L (22-30); Chloride 108 mmol/L (98-107); Estimated Glomerular Filt Rate > 60; Glucose 119 mg/dL (65-110); Potassium 3.4 mmol/L (3.4-5.0); Sodium 141 mmol/L (137-145)
--- OUTSIDE RECORDS SUMMARY | 2024-08-17 10:41 | XMS_ITS | Encounter Summary ---
Author Organization [facility] [facility] Address [address] [place] [address] Care Team Providers Care Phonograph Cartridge Assembler Name Role Phone Unavailable Primary Care Provider Unavailabl e Reason for Visit * Reason Comments Med Refill Encounter Details Date Type Department Care Team (Late st Contact Info) Description 04/13/2022 Refill [facility] Oncology and Hematology - [place] [address] [facility] [address] [place] [address] Jone Marks MD [address] [facility] [address] [place] [address] 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
--- OUTSIDE RECORDS SUMMARY | 2024-08-17 10:41 | XMS_ITS | Encounter Summary ---
Author Organization [facility] Address [address] [place] [address] Care Team Providers Care Packing Machine Pilot Can Router Name Role Phone Unavailable Primary Care Provider Unavailabl e Encounter Details Date Type Department Care Team (Late st Contact Info) Description 08/17/2024 9:30 AM CDT Office Visit [facility] Oncology and Hematology - [place] [address] [facility] [address] [place] [address] Jone Marks MD [address] [facility] [address] [place] [address] Arrived Social History Tobacco Use Types Packs/Day Years [...] on file documented as of this encounter Last Filed Vital Signs Vital Sign Reading Time Taken Comments Blood Pressure 106/71 08/17/2024 10:34 AM CDT Pulse 77 08/17/2024 10:34 AM CDT Temperature 37.3 C (99.2 F) 08/17/2024 10:34 AM CDT Respiratory Rate 15 08/17/2024 10:34 AM CDT Oxygen Saturation 94% 08/17/2024 10:34 AM CDT Inhaled Oxygen Concentration - - Weight 101.2 kg (223 lb) 08/17/2024 10:34 AM CDT Height - - Body Mass Index 32 03/29/2021 12:09 PM 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
--- OUTSIDE RECORDS SUMMARY | 2024-08-17 10:41 | XMS_ITS | Referral Summary ---
Author Organization [facility] Address [address] [place] [address] Care Team Providers Care Costume Rental Clerk Name Role Phone Jone Marks MD Primary Care Provider [phone] Encounters Date Type Department Care Team Description 08/13/2024 12:42 PM CDT - 08/13/2024 12:57 PM CDT Emergency [facility] Emergency Department [address] [place] [address] Ryan Tanner MD Dental infection (Primary Dx) Discharge Disposition: Discharge to home or self care 08/12/2024 7:36 PM CDT - 08/12/2024 9:22 PM CDT Emergency [facility] Emergency Department [address] [place] [address] Dental abscess (Primary Dx); Dentalgia Discharge Disposition: Discharge to home or self care from Last 3 Months Allergies Active Allergy Reactions Criticality Noted Date Comments Fish Containing Products Hives,Urticaria High 2015 Fried fish/has eaten shrimp without problems Shellfish Containing Products Hives High 05/07/2015 Medications folic acid (FOLVITE) 1 mg tablet Take 1 tablet (1 mg total) by mouth daily. 30 tablet 09/27/19 18 Active oxyCODONE-acet aminophen (PERCOCET) 10-325 mg per tabletIndicati ons:Pain Take 1 tablet by mouth every 6 (six) hours as needed for pain. 30 tablet 01/18/20 18 Active methadone (DOLOPHINE) 10 mg tablet Take 1 tablet by mouth 2 (two) times a day Active warfarin (COUMADIN) 1.5 mg tablet Take 8 half tablet (12 mg total) by mouth Active ibuprofen (ADVIL,MOTRIN) 800 mg tablet Take 1 tablet (800 mg total) by mouth every 6 (six) hours as needed 08/31/19 23 Active hydroxyurea (HYDREA) 500 mg capsule Take 1 capsule (500 mg total) by mouth daily 12/13/19 18 Active hydroCHLOROthi azide (HYDRODIURIL) 25 mg tablet Take 1 tablet (25 mg total) by mouth daily 20 tablet 01/06/20 24 025 Active chlorhexidine (PERIDEX) 0.12 % oral rinseIndicatio ns:Dental abscess,Dental williams Apply 15 mL to the mouth or throat 2 (two) times a day Swish around in mouth for 5 minutes then spit out. Repeat 2-3 times daily. Collaborating physician Joseph Bell MD 120 mL 1 08/13/19 25 Active amoxicillin-cl avulanate (AUGMENTIN) 875-125 mg per tablet Take 1 tablet by mouth every 12 (twelve) hours 14 tablet 08/14/19 25 Active clindamycin (CLEOCIN) 300 mg capsuleIndicat ions:Dental abscess,Dental williams Take 1 capsule (300 mg total) by mouth 3 (three) times a day for 7 days Antibiotic to treat dental infection . Collaborating physician Joseph Bell MD 21 capsule 08/13/19 25 025 Discontin ued(Thera py completed ) Active Problems Problem Noted Date Diagnosed Date Dental abscess 08/12/2024 Dentalgia 08/12/2024 Drug-seeking behavior 02/23/2019 Acute pulmonary embolism 11/24/2018 [...] making you feel afraid or unsafe? 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 Gender Identity Not on file Sexual Orientation Not on file Last Filed Vital Signs Vital Sign Reading Time Taken Comments Blood Pressure 126/76 08/13/2024 12:40 PM CDT Pulse 93 08/13/2024 12:40 PM CDT Temperature 36.3 C (97.4 F) 08/13/2024 12:40 PM CDT Respiratory Rate 16 08/13/2024 12:40 PM CDT Oxygen Saturation 95% 08/13/2024 12:40 PM CDT Inhaled Oxygen Concentration - - Weight 98.9 kg (218 lb) 08/13/2024 12:40 PM CDT Height 177.8 cm (5' 10 ) 08/13/2024 12:40 PM CDT Body Mass Index 31.28 08/13/2024 12:40 PM CDT Plan of Treatment Not on file Insurance [facility] MEDICARE [facility] Address: [address] [address] [place] [address] [facility] [id number] MEDICARE IDPA Advance Directives For more information, please contact: [phone] * Full Code (Latest Code Status on [...] Agents on File Name Relationship Healthcare Agent [facility] Ya Ashkanw Friend Health Care Agent Paulette Rios Mother Health Care Agent Care Teams Costume Rental Clerk Relationship Specialty Start Date End Date Jone Marks MD [address] [address] [facility] - General 01/26/19
--- OUTSIDE RECORDS SUMMARY | 2024-08-17 10:41 | XMS_ITS | Clinical Summary ---
Author Organization [facility] Address [address] [place] [address] Phone Care Team Providers Care Shrink Pit Supervisor Name Role Phone Provider, None Primary Care [...] measures to stabilize the patient. Care Teams Shrink Pit Supervisor Relationship Specialty Start Date End Date Provider, None [place] PCP - General 11/28/18
--- OUTSIDE RECORDS SUMMARY | 2024-08-17 10:41 | XMS_ITS | Clinical Summary ---
Author Organization [facility] Address [address] [place] [address] Care Team Providers Care Oracle Hrms Developer Name Role Phone Jone Marks MD Primary Care Provider [phone] Allergies Active Allergy Reactions Criticality Noted Date [...] CDT - 08/13/2024 12:57 PM CDT Emergency [facility] Emergency Department [address] [place] [address] Ryan Tanner MD Dental infection (Primary Dx) Discharge Disposition: Discharge to home or self care 08/12/2024 7:36 PM CDT - 08/12/2024 9:22 PM CDT Emergency [facility] Emergency Department [address] [place] [address] Dental abscess (Primary Dx); Dentalgia Discharge Disposition: [...] on file 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 Gender Identity Not on file Sexual [...] 08/13/2024 12:40 PM CDT Plan of Treatment Health Maintenance Due Date Last Done Comments Depression Screening 1983 Hepatitis C Screening 1983 Prostate Cancer Screening-PSA 1983 Varicella Vaccines (1 of 2 - 13+ 2-dose series) 1996 Hepatitis B Screening 2001 Regular Well Visit/Exam 18-64 2001 Pneumococcal vaccine <65 (1 of 2 - PCV) 2002 Zoster Vaccine (1 of 2) 2002 Meningococcal B Vaccine (2 of 5 - Increased Risk Bexsero 3-dose series) 01/18/2024 12/21/2023 Influenza Vaccine (Season Ended) 2024 02/24/2020, 01/01/2019, 01/16/2018, Additional history exists DTaP/Tdap/Td Vaccine (2 - Td or Tdap) 12/21/2033 12/22/2023 HPV Vaccines Aged Out No longer eligi ble based on patient's age to complete this topic Insurance [facility] MEDICARE [facility] IDPA MEDICARE IDPA Advance Directives For more information, please contact: [phone] * Full Code (Latest Code Status on [...] Rios Mother Health Care Agent Care Teams Oracle Hrms Developer Relationship Specialty Start Date End Date Jone Marks MD [address] [address] PCP - General 01/26/19
--- OUTSIDE RECORDS SUMMARY | 2024-08-17 10:41 | XMS_ITS | Clinical Summary ---
Author Organization [facility] Address [address] [place] [address] Care Team Providers Care Director Recreation Name Role Phone Unavailable Primary Care Provider [...] Comments Blood Pressure 120/72 04/14/2024 10:45 AM CABLE LACER Pulse 80 04/14/2024 10:45 AM CABLE LACER Temperature 36.7 C (98.1 F) 04/14/2024 10:45 AM CABLE LACER Respiratory Rate - - Oxygen Saturation 97% 04/14/2024 10:45 AM CABLE LACER Inhaled Oxygen Concentration - - Weight 104 kg (229 lb) 04/14/2024 10:45 AM CABLE LACER Height 177.8 cm (5' 10 ) 04/14/2024 10:45 AM CABLE LACER Body Mass Index 32.86 04/14/2024 10:45 AM CABLE LACER Plan of Treatment Health Maintenance Due Date Last Done Comments Hepatitis B Vaccine (1 of 3 - 19+ 3-dose series) 2002 Pneumococcal Vaccine: Peds ( 0 to 5 Years) and At-Risk Patients (6 to 49 Years) (1 of 2 - PCV) 2002 Influenza Vaccine (Season Ended) 2024 02/24/2020, 01/01/2019, 01/16/2018, Additional history exists Insurance Medicare [place] [id number]
--- OUTSIDE RECORDS SUMMARY | 2024-08-17 10:41 | XMS_ITS | Encounter Summary ---
Author Organization [facility] [employer] [facility] Address [address] [place] [address] Care Team Providers Care Software Build Engineer Name Role Phone Unavailable Primary Care Provider Unavailabl e Encounter Details Date Type Department Care Team (Late st Contact Info) Description 08/21/2021 History & [address] [facility] Oncology and Hematology - [place] [address] [place] [address] Vonnie Portillo Social History Tobacco Use [...]
--- OUTSIDE RECORDS SUMMARY | 2024-08-17 10:41 | XMS_ITS | Clinical Summary ---
Author Organization [facility] [employer] Address [address] [facility] [place] [address] Care Team Providers Care Casino Manager Name Role Phone Unavailable Primary Care Provider Unavailabl e Source Comments [facility],non-owned Affiliates and Associated Physician Practices is amultiple site organization consisting of ambulatory clinics and hospital sitesin [place], [place], [place] and [place]. This disclosure is being madepursuant to the Care Everywhere program and may not contain all information available regarding this patient. Last updated 18.[facility] [employer] Allergies Active Allergy Reactions Criticality Noted Date Comments Fish Allergy Urticaria Medium 05/07/2015 Fried fish/has eaten shrimp without problems Medications * Be aware that medications may not be up to date on this document. Alwaysverify current medications with the patient. folic acid (FOLVITE) 1 MG tablet Take 1 (one) tablet by mouth once daily 7 Active methadone (Dolophine) 10 MG tablet Take 1 (one) tablet by mouth 3 times daily 4 Active hydroxyurea (Hydrea) 500 MG capsule Take 1 (one) capsule by mouth every morning 3 Active oxyCODONE, immediate release, (Roxicodone) 10 MG tabletIndicatio ns:Hb-SS disease with crisis (HCC) Take 1 (one) tablet by mouth every 4 hours as needed 12 tablet 4 Active warfarin (Coumadin) 10 MG tablet Take 1 (one) tablet by mouth once daily 20 tablet 4 Active polyethylene glycol 3350 (Miralax) 17 g packet Take 17 (seventeen) g by mouth once daily as needed for Constipation 10 packet 4 Active ibuprofen (Motrin) 800 MG tablet Take [...] Date Resolved Date Sickle cell crisis 12/15/2023 4 Immunizations Immunization Administration Dates Next Due INFLUENZA VACCINE, TRIV. [...] care, and heating? 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 Gender Identity Not on file Sexual [...] - 26 mg/dL 12/26/2023 3:11 AM [facility] Creatinine 1.14 0.71 - 1.16 mg/dL 12/26/2023 3:11 AM [facility] Sodium 138 136 - 145 mmol/L 12/26/2023 3:11 AM [facility] Potassium 3.8 3.5 - 4.5 mmol/L 12/26/2023 3:11 AM [facility] Chloride 106 98 - 107 mmol/L 12/26/2023 3:11 AM [facility] CO2 24 22 - 29 mmol/L 12/26/2023 3:11 AM [facility] Glucose 107 70 - 115 mg/dL 12/26/2023 3:11 AM [facility] Calcium 9.2 8.4 - 10.2 mg/dL 12/26/2023 3:11 AM [facility] Protein Total 8.3 6.0 - 8.3 g/dL 12/26/2023 3:11 AM [facility] Albumin 2.7(L) 3.4 - 5.0 g/dL 12/26/2023 3:11 AM [facility] Bilirubin Total 0.6 0.2 - 1.2 mg/dL 12/26/2023 3:11 AM [facility] Alkaline Phosphatase 79 40 - 150 U/L 12/26/2023 3:11 AM [facility] ALT 52 5 - 55 U/L 12/26/2023 3:11 AM [facility] AST 24 5 - 34 U/L 12/26/2023 3:11 AM [facility] Anion Gap 8 6 - 16 12/26/2023 3:11 AM [facility] BUN/Creatinine Ratio 7 7 - 23 12/26/2023 3:11 AM [facility] Osmolality Calculated 285 275 - 295 mOsm/kg 12/26/2023 3:11 AM [facility] Albumin/Globulin Ratio 0.5(L) 1.1 - 2.3 12/26/2023 3:11 AM [facility] eGFR by CKD-EPI 83(L) >=90 mL/min/1.7 3 m2 12/26/2023 3:11 AM [facility] Blood BLOOD SPECIMEN / Unknown Lab Venipuncture / Unknown 12/26/2023 1:54 AM CDT 12/26/2023 2:57 AM CDT us Natalia Marks MD LAB - CHEMISTRY ORDERABLES Final Result [facility] [address] [place] [phone], [facility] [phone] * HEPATITIS C AB SCREEN RFLX NAAT QUANT (12/19/2023 5:04 AM CDT) Hepatitis C Antibody Non-react daniel Non-reac tive 12/19/2023 6:17 AM CDT [facility] Comment:Hepatitis C Antibody screen indicates no [...] AM CDT 12/19/2023 5:08 AM CDT German Daomn MD LAB - CHEMISTRY ORDERABLES Fin al Result Performing Organization Address City/[facility]/ZIP Co de Phone Number [address] [address], [facility] [phone] * HIV-1 HIV-2 ANTIBODY + HIV P24 AG PANEL (12/19/2023 5:04 AM CDT) [facility] HIV Antigen/Antibod y 1 & 2 Non-reacti ve Non-react daniel 12/19/2023 6:17 AM CDT [facility] Comment:No Laboratory eviden ce of HIV infection. Blood BLOOD SPECIMEN / Unknown Venipuncture / Unknown 12/19/2023 5:04 AM CDT 12/19/2023 5:08 AM CDT German Damon MD LAB - CHEMISTRY ORDERABLES Fin al Result Performing Organization Address City/[facility]/ZIP Co de Phone Number [address] [address], [place] [phone] * (ABNORMAL) LIPID PROFILE (12/18/2023 3:46 AM CDT) [facility] Cholesterol Total 100 <200 mg/dL 12/18/2023 4:46 AM CDT [facility] HDL 7(L) >40 mg/dL 12/18/2023 4:46 AM CDT [facility] Comment: ATP III Classification of HDL Cholesterol: <40 mg/dL: Considered a major risk factor. >60 mg/dL: Considered a negative risk factor. LDL Calculated 54 <100 mg/dL 12/18/2023 4:46 AM CDT [facility] Comment: ATP III Classification of LDL Cholesterol: <100 mg/dL: Optimal 100 - 129 mg/dL: Near Optimal/Above Optimal 130 - 159 mg/dL: Borderline High 160 - 189 mg/dL: High >190 mg/dL: Very High Triglycerides 195(H) <150 mg/dL 12/18/2023 4:46 AM CDT [facility] Comment: ATP III Classification of Triglycerides: <150 mg/dL: Normal 150 - 199 mg/dL: Borderline High 200 - 400 mg/dL: High >500 mg/dL: Very High Blood BLOOD SPECIMEN / Unknown Venipuncture / Unknown 12/18/2023 3:46 AM CDT 12/18/2023 4:14 AM CDT German Damon MD LAB - CHEMISTRY ORDERABLES Fin al Result Performing Organization Address [facility]/State/[facility] de Phone Number [facility] [address] [place] [phone], [facility] [phone] from Last 3 Months or Most Recently Relevant to Health Maintenance Insurance MEDICARE Advance Directives * Full Code (Latest Code Status on File) Date Activated Date Inactivated Comments 12/15/2023 10:14 PM 12/29/2023 3:08 PM
--- OUTSIDE RECORDS SUMMARY | 2024-08-17 10:41 | XMS_ITS | Clinical Summary ---
Author Organization [facility] Address [address] [place] [address] Care Team Providers Care Manual Winder Name Role Phone Unavailable Primary Care Provider [...] 3 times daily. 90 Tablet 5 Active Xarelto 20 mg Tablet Take 20 mg by mouth daily with supper. 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 Encounters Date Type Department Care Team Description 08/17/2024 9:30 AM CDT Office Visit [facility] - [place] [address] [place] [address] Jone Marks MD Arrived 08/14/2024 Abstract [facility] - [place] [address] [place] [address] Jone Marks MD 08/11/2024 Refill [facility] - [place] [address] [place] [address] Yeny Mcdonough MD 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) 08/11/2024 Orders Only [facility] - [place] [address] [place] [address] Jone Marks MD 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); Other acute pulmonary embolism without acute cor pulmonale (CMS/HCC) 07/29/2024 Abstract [facility] - [place] [address] [place] [address] Jone Marks MD 07/22/2024 Abstract [facility] - [place] [address] [place] [id number] Jone Marks MD 07/22/2024 Abstract [facility] - [address] [place] [address] Jone Marks MD 07/13/2024 Orders Only [facility] - [place] [address] [place] [address] Jone Marks MD Other acute pulmonary embolism without acute cor pulmonale (CMS/HCC) 07/08/2024 Refill [facility] - [place] [address] [place] [address] Jone Marks MD 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) 06/15/2024 Orders Only [facility] - [place] [address] [place] [address] Jone Marks MD Other acute pulmonary embolism without acute cor pulmonale (CMS/HCC) 06/12/2024 Refill [facility] - [place] [address] [place] [address] Jone Marks MD 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
== END 2024-08-17 09:54 | disposition home or self-care (01) ==
PROVIDERS: PCP Internal Medicine Hematology & Oncology; Visit Provider Internal Medicine Hematology & Oncology
DX: D57.20 Sickle-cell/Hb-C disease without crisis (principal)
CPT/HCPCS: 36415; 80047; 80053; 85025